=== PATIENT | male | born 1955 | race Caucasian/White ===

== ENCOUNTER 2022-12-12 18:21 | Inpatient (IN) | payer MEDICARE, SELFPAY ==
[2022-12-12] VITALS (8 sets, daily range): BP systolic 107–145; BP diastolic 74–91; PULSE 84–102; RESP 14–21; TEMP 36.6–37; O2SAT 94–100
--- NOTE | 2022-12-12 18:37 | CT_ITS ---
STUDY: CT BRAIN WITHOUT CONTRAST REASON FOR EXAM: Male, 67 years old. falls RADIATION DOSAGE (If Supplied By Facility): CTDIvol = ( 44.99 ) mGy, DLP = ( 846.73 ) mGycm TECHNIQUE: Transaxial CT imaging of the brain was performed without administration of intravenous contrast material. Individualized dose optimization techniques were used for this CT. COMPARISON: No relevant priors. FINDINGS: Normal soft tissue structures. Normal calvarium. Calcific plaquing of the cavernous carotids and left vertebral artery Mild atrophy and periventricular white matter ischemic changes. Normal basal ganglia and thalami. Normal brainstem. Normal cerebellum. There is no intracranial hemorrhage. There are no findings of an acute ischemic infarction. Mild mucosal thickening right maxillary sinus. Postsurgical changes of the orbits CT/Brain/Head without Contrast IMPRESSION: Mild atrophy and periventricular white matter ischemic changes. No evidence for acute intracranial hemorrhage Electronically Signed: Jakob Reno MD at 20:07 EDT ,
--- NOTE | 2022-12-12 18:37 | EKG12_ITS ---
Test Reason : DYSRHYTHMIA Blood Pressure : / mmHG Vent. Rate : 102 BPM Atrial Rate : 102 BPM P-R Int : 130 ms QRS Dur : 080 ms QT Int : 350 ms P-R-T Axes : 077 051 059 degrees QTc Int : 456 ms Sinus tachycardia Otherwise normal ECG Confirmed by LOVELY BERNAL, MARTITA ([id number]), supervising editor news reel BREANN CORNEJO ([id number]) on 12/14/2022 9:53:35 AM Referred By: SEVERO Confirmed By:MARTITA MURRY MD
--- NOTE | 2022-12-12 18:45 | EX.ED.DYSGE1 ---
HPI History of Present Illness Chief Complaint: Weakness Narrative Narrative: 43-year-old male presenting with weakness. Patient states has been drinking heavily at night for about 8 years. He states that he lost his and children at about that time. He states he is depressed and asked why he drinks. He states that last night he started drinking and is not sure how many he drank. He typically drinks 6-10 beers at night. Patient is unsure when he fell asleep but he woke up at 4 PM. He states he tried to get up and walk and felt generally weak. He is unable to describe exactly how he fell. He states he does not think he is lost consciousness but he cannot remember any details. He states he laid on the floor for about 5 minutes before he can get up. He states he was able to crawl over to the couch. EMS reports that he had some kind of seizure-like activity for a few seconds while they picked him up but he woke up without any postictal state. [facility] Medical History Anxiety and depression Chewing tobacco use ETOH abuse History of cancer tonsil Home Medications NK 12/12/22 [History Last Taken Unknown] Allergy/AdvReac Type Severity Reaction Status Date / Time No Known Allergies Allergy Verified 12/12/22 18:23 Family History Mother Diabetes Father Diabetes Brother Colon cancer Surgical History History of tonsillectomy and adenoidectomy Surgical History no surgical history Social History household members: other details: Lives with his son. Smoking Status: Never smoker Smokeless tobacco user: chewing tobacco and other alcohol intake: current alcohol intake frequency: 3 or more drinks per day details: 8-10 beers daily coupled with hard liquor. substance use type: does not use ROS ROS ED Constitutional Constitutional ED: Denies chills or fever(s) Eyes Eyes: Denies blurry vision or change in vision ENT ENT ED: Denies rhinorrhea or sore throat Cardiovascular Cardiovascular: Denies chest pain Respiratory/Chest Respiratory/Chest: Denies cough or dyspnea Gastrointestinal Gastrointestinal: Reports melena; Denies abdominal pain, nausea or vomiting Genitourinary Genitourinary ED: Denies dysuria or hematuria Musculoskeletal Musculoskeletal: Denies arthralgias or back pain Integumentary Denies abscess Neurologic Neurologic: Denies headache(s) Psychiatric Psychiatric: Denies anxiety or depression EXAM Physical Exam Const Vital Signs: 12/12/22 18:23 12/12/22 18:31 12/12/22 20:46 Temperature 98 F Temperature Source Temporal Pulse Rate 100 102 H Respiratory Rate 14 18 Respiratory Pattern Normal Blood Pressure 107/83 H 145/78 H Blood Pressure Mean 91 100 Blood Pressure Source Blood Pressure Position Blood Pressure Location Pulse Ox 100 97 Oxygen Delivery Method Room Air Room Air 12/12/22 21:48 12/12/22 21:15 12/12/22 22:03 Temperature 98.2 F 98 F Temperature Source Temporal Temporal Pulse Rate 102 H 93 99 Respiratory Rate 15 21 H 19 H Respiratory Pattern Blood Pressure 128/74 H 128/74 H 142/80 H Blood Pressure Mean 92 92 100 Blood Pressure Source Monitor Monitor Blood Pressure Position Semi-Fowlers Semi-Fowlers Blood Pressure Location Right Arm Right Arm Pulse Ox 97 95 94 Oxygen Delivery Method Room Air Room Air Room Air Positive unkempt General Appearance ED: unkempt; Negative for pallor HEENT Reports moist mucous membranes Eyes General Eye ED: Yes pale conjunctiva; Negative for scleral icterus Neck no lymphadenopathy Chest Wall inspection of chest normal and palpation of chest normal Resp normal respiratory effort and clear to auscultation bilaterally Auscultation: Negative for rales, rhonchi or wheezes Cardio regular rate and regular rhythm GI normal to inspection, nondistended, normoactive bowel sounds Neuro oriented x3 and CN's II-XII intact bilaterally Sensorium / Orientation: alert Motor Exam: general weakness Psych Appearance: unkempt Skin General Skin Exam: Negative for jaundice or pallor MDM MDM MDM Narrative Medical decision making narrative: Showed a weakness where he fell to the ground really describe this. Unclear if he hit his head. Sound like syncope. Patient does not have any signs of head trauma. He is moving all 4 extremities. He is alert and awake. He states that he does drink 6-10 beers daily. He states he drinks out of depression because his left him 8 years ago. He denies SI or HI. Patient does have black stools. He also has conjunctival pallor. I suspect the patient was likely syncopal or near syncopal. CV assess for blood cell count, hemoglobin, platelets, did CMP to assess liver function, renal function, glucose, anion gap, electrolytes. High-sensitivity troponin, EKG to assess for cardiac etiology. Chest x-ray will also be obtained. CT brain was obtained was obtained to assess for intracranial injury. CBC shows a white blood cell count of 6.7 which is normal. The patient's hemoglobin is 7.1. I was able to look on [facility] for previous records and the best I can find is a hemoglobin of 11 6 in 2019. Given this patient was typed, screened, crossmatched for 2 units. Patient started on Protonix drip after 80 mg bolus. Hemoccult was sent and is positive. Creatinine is normal with an elevated BUN suggesting GI bleed as well. Patient was given the IV fluids. Although there was some suspicion of possible seizure the patient was not postictal. He does have elevation in his lactic acid but I suspect this is likely due to dehydration. I do not believe he had a seizure. He is alert and awake here. Total bilirubin today is 0.20 direct bilirubin 0.8, AST 44. EtOH level is 22. Ammonia level is normal. Patient reported to the nursing staff that he felt like he was going to withdrawal so he was given 2 mg of Ativan. He was also given a nicotine patch. CT brain returned with no acute intracranial process. Chest x-ray on my interpretation shows no acute cardiopulmonary process. Radiologist services and agrees. High-sensitivity troponin 22. Case was discussed with Dr. Hennessy who is on-call for GI. After discussion we will obtain a CT of the chest abdomen pelvis. This returned negative. Discussed with hospitalist for admission. She requested 1 g of Rocephin given. At this point the patient is stable for the medical floor. Impression: 1. Acute blood loss anemia 2. Upper GI bleed 3. Near syncope 4. EtOH abuse 5. Weakness Lab Data Attestation: I reviewed the patient's lab results. Labs: Laboratory Results - last 24 hr 12/12/22 12/12/22 12/12/22 18:48 18:48 18:48 WBC 6.7 RBC 2.29 L Hgb 7.1 L Hct 22.2 L MCV 96.9 H MCH 31.0 MCHC 32.0 RDW Std Deviation 49.7 H RDW Coeff of Jesus 13.9 Plt Count 381 MPV 8.8 Immature Gran % (Auto) 1.200 H Neut % (Auto) 90.0 H Lymph % (Auto) 4.0 L Rains % (Auto) 4.5 Eos % (Auto) 0.0 Baso % (Auto) 0.3 Absolute Neuts (auto) 6.0 Absolute Lymphs (auto) 0.27 L Nucleated RBC % 0 Differential Comment SCANNED Sodium 132 L Potassium 4.2 Chloride 94 L Carbon Dioxide 25.0 Anion Gap 13 BUN 31 H Creatinine 1.18 Estim Creat Clear Calc 67.94 Est GFR (MDRD) Af Amer 79 Est GFR (MDRD) Non-Af 66 BUN/Creatinine Ratio 26.3 H Glucose 116 H Lactic Acid Calcium 8.3 L Phosphorus Magnesium Total Bilirubin 0.20 Direct Bilirubin 0.08 AST 44 H ALT 23 Alkaline Phosphatase 95 Ammonia Troponin I High Sens 22 Total Protein 5.5 L Albumin 2.1 L Globulin 3.4 Lipase 32 Ethyl Alcohol 22.0 Blood Type Antibody Screen Crossmatch 12/12/22 12/12/22 12/12/22 18:48 18:48 19:45 WBC RBC Hgb Hct MCV MCH MCHC RDW Std Deviation RDW Coeff of Jesus Plt Count MPV Immature Gran % (Auto) Neut % (Auto) Lymph % (Auto) Rains % (Auto) Eos % (Auto) Baso % (Auto) Absolute Neuts (auto) Absolute Lymphs (auto) Nucleated RBC % Differential Comment Sodium Potassium Chloride Carbon Dioxide Anion Gap BUN Creatinine Estim Creat Clear Calc Est GFR (MDRD) Af Amer Est GFR (MDRD) Non-Af BUN/Creatinine Ratio Glucose Lactic Acid 3.5 H* Calcium Phosphorus 2.8 Magnesium 1.7 Total Bilirubin Direct Bilirubin AST ALT Alkaline Phosphatase Ammonia Troponin I High Sens Total Protein Albumin Globulin Lipase Ethyl Alcohol Blood Type O POSITIVE Antibody Screen NEGATIVE Crossmatch See Detail 12/12/22 21:45 WBC RBC Hgb Hct MCV MCH MCHC RDW Std Deviation RDW Coeff of Jesus Plt Count MPV Immature Gran % (Auto) Neut % (Auto) Lymph % (Auto) Rains % (Auto) Eos % (Auto) Baso % (Auto) Absolute Neuts (auto) Absolute Lymphs (auto) Nucleated RBC % Differential Comment Sodium Potassium Chloride Carbon Dioxide Anion Gap BUN Creatinine Estim Creat Clear Calc Est GFR (MDRD) Af Amer Est GFR (MDRD) Non-Af BUN/Creatinine Ratio Glucose Lactic Acid Calcium Phosphorus Magnesium Total Bilirubin Direct Bilirubin AST ALT Alkaline Phosphatase Ammonia < 10.0 L Troponin I High Sens Total Protein Albumin Globulin Lipase Ethyl Alcohol Blood Type Antibody Screen Crossmatch Radiography Diagnostic Testing: Clinical Impression(s) from Imaging Studies Brain CT 12/12/22 18:37 IMPRESSION: Mild atrophy and periventricular white matter ischemic changes. No evidence for acute intracranial hemorrhage Electronically Signed: Jakob Reno MD at 20:07 EDT , Chest X-Ray 12/12/22 19:00 IMPRESSION: Small left lower lobe nodular opacity and small nodular opacity in the left apex.. CT recommended for further evaluation Electronically Signed: Jakob Reno MD at 19:12 EDT , Chest/Abdomen/Pelvis CT 12/12/22 21:00 IMPRESSION: ASHD and small pleural-based patchy opacity in the left pulmonary apex likely inflammatory however would recommend clinical correlation and follow-up studies if clinically warranted Mild nonspecific ileus. Minor diverticular changes of the sigmoid colon without evidence for acute diverticulitis No acute abnormalities within the abdomen and pelvis.] Other findings as above Electronically Signed: Jakob Reno MD at 21:45 EDT , Discharge Plan Triage Chief Complaint: Weakness ED Provider: Vinay Temple
[2022-12-12 18:59] LABS: Absolute Lymphocyte Count 0.27 X10^3/uL (0.83-4.51); Basophil# 0.02 X10^3/uL; Basophil% 0.3 % (0-1); Hematocrit 22.2 % (40-54); Hemoglobin 7.1 g/dL (13.0-16.5); Lymphocyte # 0.27 X10^3/ul (0.83-4.51); Mean Corpuscular Volume 96.9 fL (80-94); Mean Platelet Vol. 8.8 fl (6.2-12.0); Monocyte% 4.5 % (0-10); NRBC Flagged by Analyzer 0 % (0-5); Neutrophil # 6.01 X10^3/uL (2.7-7.7); POSITIVE DIFFERENTIAL YES; Platelet Count 381 K/mm3 (150-450); RBC Distribution Width CV 13.9 % (11.6-14.6); RBC Distribution Width SD 49.7 fl (35.1-43.9); Red Blood Count 2.29 M/mm3 (4.6-6.2); White Blood Count 6.7 K/mm3 (4.4-11.0)
--- NOTE | 2022-12-12 19:00 | RAD_ITS ---
STUDY: X-RAY CHEST REASON FOR EXAM: Male, 67 years old. weakness TECHNIQUE: AP portable COMPARISON: None. FINDINGS: Small nodule or nodular type infiltrate left lower lobe measuring approximately 2.4 x 2.1 cm. There is a smaller nodular opacity in the left apex. There is no demonstrated pleural abnormality. Normal size heart. Normal mediastinum and yan. Normal visualized pulmonary arteries. Normal visualized aortic arch and descending thoracic aorta. Normal visualized thoracic spine. Normal visualized ribs, clavicles, and shoulders. There is no demonstrated abnormality of the visualized soft tissue structures of the upper abdomen. RAD/Chest 1 View (Portable) IMPRESSION: Small left lower lobe nodular opacity and small nodular opacity in the left apex.. CT recommended for further evaluation Electronically Signed: Jakob Reno MD at 19:12 EDT ,
[2022-12-12 19:04] LABS: Differential Indicated SCAN CRITERIA MET
[2022-12-12 19:18] LABS: AST(SGOT) 44 U/L (15-37); Alanine Aminotransfer ALT/SGPT 23 U/L (16-61); Albumin, Serum 2.1 g/dL (3.2-5.0); Alkaline Phosphatase 95 U/L (45-117); Anion Gap 13 (5-15); BUN 31 mg/dL (7-18); BUN/Creat Ratio 26.3 RATIO (10-20); Bilirubin, Direct 0.08 mg/dL (0.00-0.30); Calcium,Total 8.3 mg/dL (8.5-10.1); Chloride 94 mmol/L (98-107); Creatinine, Serum 1.18 mg/dL (0.70-1.30); EST Glomerular Filtration Rate 66 mL/min (>60); Est Glom Filt Rate - Afr Amer 79 mL/min (>60); Estimated Creatinine Clearance 67.94 ml/min; Globulin 3.4 g/dL (2.2-4.2); Glucose 116 mg/dL (74-106); Lipase 32 U/L (13-75); Potassium 4.2 mmol/L (3.5-5.1); Protein, Total 5.5 g/dL (6.4-8.2); Sodium Level 132 mmol/L (136-145); Troponin-I HS 22 pg/mL (3.0-78.0)
[2022-12-12 19:34] LABS: Lactic Acid 3.5 mmol/L (0.4-1.9)
[2022-12-12 19:54] LABS: Differential Comment SCANNED
[2022-12-12] MEDS: LORazepam 2 MG/ML Syringe IV (19:56)
--- NOTE | 2022-12-12 21:00 | CT_ITS ---
STUDY: CT CHEST, ABDOMEN T PELVIS WITH CONTRAST REASON FOR EXAM: Male, 67 years old. ams RADIATION DOSAGE (If Supplied By Facility): CTDIvol = ( 12.85 ) mGy, DLP = ( 1092.30 ) mGycm TECHNIQUE: Transaxial imaging was performed following intravenous administration of IV 100mL [id number]-[id number]. Individualized dose optimization techniques were used for this CT. COMPARISON: No relevant priors. FINDINGS: CHEST Patchy pleural-based airspace opacity in left apex of indeterminate etiology possibly due to inflammatory changes.. There is no demonstrated pleural abnormality. Normal heart and pericardium. Mild coronary artery calcification Normal mediastinum. Normal hilar regions. Normal unenhanced pulmonary arteries. Minor atherosclerotic change of the aorta without evidence for aneurysm. Lumbar spine demonstrates moderate spondylosis. Small hiatal hernia is noted Nonspecific fatty infiltrated liver.. ABDOMEN . Nonspecific fatty liver without mass or bile duct dilatation. Normal gallbladder and extrahepatic biliary system. Normal spleen. Normal pancreas. Normal bilateral adrenal glands. No evidence for renal obstruction. There is a tiny cortical cyst in the right kidney which will not require additional imaging Normal visualized stomach. Mild nonspecific ileus.. Minor diverticular changes of the sigmoid colon without evidence for acute diverticulitis. The appendix is visualized and appears normal. Mild atherosclerotic change of the aorta without evidence for aneurysm.. Normal inferior vena cava. Normal retroperitoneum. Normal abdominal wall. PELVIS Incompletely distended thick walled bladder likely of no significance There is no pelvic fluid. There is no pelvic lymphadenopathy or mass lesion. Normal visualized pelvic arteries. Normal abdominal wall. Normal osseous structures. CT/CT Chest, Abd, Pel w/Contrast IMPRESSION: ASHD and small pleural-based patchy opacity in the left pulmonary apex likely inflammatory however would recommend clinical correlation and follow-up studies if clinically warranted Mild nonspecific ileus. Minor diverticular changes of the sigmoid colon without evidence for acute diverticulitis No acute abnormalities within the abdomen and pelvis.] Other findings as above Electronically Signed: Jakob Reno MD at 21:45 EDT ,
[2022-12-12] MEDS: 0.9% Normal Saline 1,000 ML 999 ML IV (21:10)
--- NOTE | 2022-12-12 21:23 | ED.RN ---
family made aware of admission at this time
[2022-12-12 22:15] LABS: Ammonia < 10.0 umol/L (11-32)
[2022-12-12 22:25] LABS: Magnesium 1.7 mg/dL (1.6-2.6); Phosphorus 2.8 mg/dL (2.5-4.9)
--- NOTE | 2022-12-12 22:49 | ED.RN ---
PT UNABLE TO STAND SAFELY, ORTHOS'S NOT COMPLETED
[2022-12-12 22:54] LABS: Reflex Lactate? Y
--- NOTE | 2022-12-12 23:00 | CON.PCM.GI_ITS ---
HPI Consult Data Date of Consult: 12/12/22 HPI Narrative Reason for Consultation: Anemia and GI bleed HPI Narrative: MIRNA JEFFRIES, is a 67 M who presents? with the chief complaint of weakness.? Patient states has been drinking heavily at night for about 8 years.? He states that he lost his and children at about that time.? He states he is depressed and asked why he drinks.? He states that last night he started drinking and is not sure how many he drank.? He typically drinks 6-10 beers at night.?History tonsillary CA s/p resection/chemotherapy in remission. Patient is unsure when he fell asleep but he woke up at 4 PM.? He states he tried to get up and walk and felt generally weak.? He is unable to describe exactly how he fell.? He states he does not think he is lost consciousness but he cannot remember any details.? He states he laid on the floor for about 5 minutes before he can get up.? He states he was able to crawl over to the couch.? EMS reports that he had some kind of seizure-like activity for a few seconds while they picked him up but he woke up without any postictal state. In the ED patient with mild tremors, tactile disturbances and initially confused with family reporting that normally he would have drank and much more but had not had any intake given acute presentation earlier in the day. ? Work-up in the ED included T98.2, heart rate 102, BP 120/74, respiratory rate 15, 97% oxygenation on room air, CBC with WC 6.7, hemoglobin 7.1, MCV is 96.9, platelet 381 with increased immature granulocytes and lymphopenia, CMP with sodium 132, chloride 94, BUN/creatinine 31/1.18, glucose 116, lactic acid 3.5, hepatic profile not marked appearing aside AST 44, troponin 22, lipase 32, ethyl alcohol 22, type and cross initiated per ED physician, stool occult positive, CT of the brain with mild atrophy and periventricular white matter ischemic changes with no acute intracranial findings, chest x-ray with small left lower lobe nodular opacity and small nodular opacity in the left apex, follow-up CT chest, abdomen, pelvis with contrast with noted ASHD and small pleural-based patchy opacity in the left pulmonary apex likely inflammatory, mild nonspecific ileus, minor diverticular changes of the sigmoid colon without evidence of any acute diverticulitis with no other acute intra-abdominal findings, pending NH level upon requested evaluation of patient.? In the ED patient ministered normal saline bolus, Protonix drip as well as bolus, Ativan 2 mg IV x1 and nicotine 21 mg patch. [facility] Medical History Anxiety and depression Chewing tobacco use ETOH abuse History of cancer tonsil Home Medications NK 12/12/22 [History Last Taken Unknown] Allergy/AdvReac Type Severity Reaction Status Date / Time No Known Allergies Allergy Verified 12/12/22 18:23 Family History Mother Diabetes Father Diabetes Brother Colon cancer Surgical History History of tonsillectomy and adenoidectomy Surgical History no surgical history Social History household members: other details: Lives with his son. Smoking Status: Former smoker Smokeless tobacco user: chewing tobacco and other alcohol intake: current alcohol intake frequency: 3 or more drinks per day details: 8-10 beers daily coupled with hard liquor. substance use type: does not use ROS ROS Narrative Admission Review of Systems: CONSTITUTIONAL: No weight loss, fever, chills, + weakness or fatigue. HEENT: Eyes: No visual loss, blurred vision, double vision or yellow sclerae. Ears, Nose, Throat: No hearing loss, sneezing, congestion, runny nose or sore throat. SKIN: No rash or itching, lesions, wounds. CARDIOVASCULAR: + Suspected LH/Dizziness w/ syncope from discussions secondary to GI bleed. No chest pain, chest pressure or chest discomfort, palpitations, edema, orthopnea. RESPIRATORY: No shortness of breath, cough or sputum, wheezing, hemoptysis. GASTROINTESTINAL: + anorexia, nausea, vomiting, black stools. No reported altered stool texture (constipation, diarrhea but poor historian), abdominal pain, BRBPR. GENITOURINARY: No dysuria, frequency, urgency or retention. NEUROLOGICAL: + Possible syncope, LH/dizziness but again poor historian, tremors, tactile disturbances, mild initial confusion/agitation improved with recent Ativan in the ED. No headache, paralysis, ataxia, numbness or tingling in the extremities, focal weakness, change in bowel or bladder control, seizure. MUSCULOSKELETAL: + muscle, back pain, joint pain or stiffness. HEMATOLOGIC: + anemia, bleeding or bruising. LYMPHATICS: No enlarged nodes. No history of splenectomy. PSYCHIATRIC: + history of depression or anxiety. ENDOCRINOLOGIC: No reports of sweating, cold or heat intolerance. No polyuria or polydipsia. ALLERGIES: No history of asthma, hives, eczema or rhinitis. Physical Exam Const alert and no apparent distress Resp normal respiratory effort, no retractions, no use of accessory muscles and clear to auscultation bilaterally Cardio regular rate, regular rhythm, S1 normal heart sound and S2 normal heart sound GI normal to inspection, nondistended, normoactive bowel sounds, soft to palpation, non-tender and non-distended Extremity normal to inspection Lab / Micro Data Result Diagrams: 12/13/22 03:58 12/13/22 03:58 Labs: Laboratory Results - last 24 hr 12/12/22 18:48: WBC 6.7, RBC 2.29 L, Hgb 7.1 L, Hct 22.2 L, MCV 96.9 H, MCH 31.0, MCHC 32.0, RDW Std Deviation 49.7 H, RDW Coeff of Jesus 13.9, Plt Count 381, MPV 8.8, Immature Gran % (Auto) 1.200 H, Neut % (Auto) 90.0 H, Lymph % (Auto) 4.0 L, Emanuel % (Auto) 4.5, Eos % (Auto) 0.0, Baso % (Auto) 0.3, Absolute Neuts (auto) 6.0, Absolute Lymphs (auto) 0.27 L, Nucleated RBC % 0, Differential Comment SCANNED 12/12/22 18:48: Sodium 132 L, Potassium 4.2, Chloride 94 L, Carbon Dioxide 25.0, Anion Gap 13, BUN 31 H, Creatinine 1.18, Estim Creat Clear Calc 67.94, Est GFR (MDRD) Af Amer 79, Est GFR (MDRD) Non-Af 66, BUN/Creatinine Ratio 26.3 H, Glucose 116 H, Calcium 8.3 L, Total Bilirubin 0.20, Direct Bilirubin 0.08, AST 44 H, ALT 23, Alkaline Phosphatase 95, Troponin I High Sens 22, Total Protein 5.5 L, Albumin 2.1 L, Globulin 3.4, Lipase 32 12/12/22 18:48: Ethyl Alcohol 22.0 12/12/22 18:48: Lactic Acid 3.5 H* 12/12/22 18:48: Phosphorus 2.8, Magnesium 1.7 12/12/22 19:45: Blood Type O POSITIVE, Antibody Screen NEGATIVE, Crossmatch See Detail 12/12/22 21:45: Ammonia < 10.0 L 12/12/22 23:17: Lactic Acid 1.5 12/12/22 23:45: Urine Color Yellow, Urine Clarity Clear, Urine pH 7.0, Ur Specific [place] 1.005, Urine Protein 15 H, Urine Glucose (UA) Normal, Urine Ketones 5 H, Urine Occult Blood Negative, Urine Nitrite Negative, Urine Bilirubin Negative, Urine Urobilinogen 1 H, Ur Leukocyte Esterase Negative, Urine RBC 0 SEEN, Urine WBC 0 SEEN, Ur Squamous Epith Cells 0 SEEN, Urine Bacteria RARE, Urine Mucus 0 SEEN 12/12/22 23:45: Urine Opiates Screen NEGATIVE, Urine Methadone Screen NEGATIVE, Ur Barbiturates Screen NEGATIVE, Ur Phencyclidine Scrn NEGATIVE, Ur Amphetamines Screen NEGATIVE, MDMA (Ecstasy) Screen NEGATIVE, U Benzodiazepines Scrn NEGATIVE, Urine Cocaine Screen NEGATIVE, U Cannabinoids Screen NEGATIVE, Ur Drug Screen Comment 12/13/22 03:58: WBC 6.4, RBC 2.56 L, Hgb 7.9 L, Hct 23.9 L, MCV 93.4, MCH 30.9, MCHC 33.1, RDW Std Deviation 50.7 H, RDW Coeff of Jesus 15.0 H, Plt Count 266, MPV 9.1, Immature Gran % (Auto) 2.000 H, Neut % (Auto) 83.0 H, Lymph % (Auto) 7.6 L, Emanuel % (Auto) 7.2, Eos % (Auto) 0.0, Baso % (Auto) 0.2, Absolute Neuts (auto) 5.3, Absolute Lymphs (auto) 0.48 L, Nucleated RBC % 0, Anisocytosis 1+ 12/13/22 03:58: Sodium 134 L, Potassium 4.7, Chloride 100, Carbon Dioxide 25.0, Anion Gap 9, BUN 36 H, Creatinine 1.05, Estim Creat Clear Calc 71.46, Est GFR (MDRD) Af Amer 91, Est GFR (MDRD) Non-Af 75, BUN/Creatinine Ratio 34.3 H, Glucose 138 H, Calcium 7.6 L, Total Bilirubin 0.60, AST 33, ALT 18, Alkaline Phosphatase 80, Total Protein 4.8 L, Albumin 2.0 L, Globulin 2.8, Albumin/Globulin Ratio 0.7 L Micro: Microbiology 12/12/22 22:14 Mucosa - Nasopharyngeal Respiratory Panel (PCR) - Final 12/12/22 20:35 Stool Stool Occult Blood ([facility]) - Final Occult Blood Positive Radiology Impression Brain CT 12/12/22 18:37 IMPRESSION: Mild atrophy and periventricular white matter ischemic changes. No evidence for acute intracranial hemorrhage Electronically Signed: Jakob Reno MD at 20:07 EDT , Chest X-Ray 12/12/22 19:00 IMPRESSION: Small left lower lobe nodular opacity and small nodular opacity in the left apex.. CT recommended for further evaluation Electronically Signed: Jakob Reno MD at 19:12 EDT , Chest/Abdomen/Pelvis CT 12/12/22 21:00 IMPRESSION: ASHD and small pleural-based patchy opacity in the left pulmonary apex likely inflammatory however would recommend clinical correlation and follow-up studies if clinically warranted Mild nonspecific ileus. Minor diverticular changes of the sigmoid colon without evidence for acute diverticulitis No acute abnormalities within the abdomen and pelvis.] Other findings as above Electronically Signed: Jakob Reno MD at 21:45 EDT , Assessment & Plan Assessment/Plan (1) GI bleed: (2) Acute blood loss anemia: (3) Lactic acidosis: (4) Alcohol withdrawal: (5) Hyponatremia: (6) Mass of left lung: PLAN: Plan The patient is a 67 y/o with PMH EtOH abuse , History tonsillary CA s/p resection/chemotherapy in remission who presents to the [facility] ED on 12/12/22 with history of eventually passing out awakening at approximately 4 PM of day of ED presentation however when he attempted to get up he felt extremely weak re portedly laying on the floor prior to even being overly get up eventually crawling over the couch prompting EMS call who reported that they were concerned for some type of possible spasms of his extremities that lasted a few seconds however this completely subsided when they picked him up and he immediately awoke with any postictal phase or state with no loss of bowel or bladder prompting ED transition for evaluation. Anemia: Agree it is likely acute on chronic anemia in the setting of likely GI the with a different gnosis pain peptic ulcer disease, cirrhosis with esophageal, gastric or duodenal varices, portal gastropathy, gastric antral vascular ectasia, Nate's erosions. He should undergo an upper endoscopy to evaluate his upper GI tract. Agree with octreotide, PPI drip and ceftriaxone. He was explained alternatives, risk, benefits including outstanding bleeding, infection, sepsis, perforation, need for emergent urgent . He will have an ASA of 3. Charges/Coding Visit Charges Inpatient E&M: 78346 Init Hosp L3
--- NOTE | 2022-12-12 23:02 | HP.PCM.HOS_ITS ---
HPI - General General Date of Admission: 12/12/22 Date of Service: 12/12/22 Chief Complaint: Black stools, weakness. HPI Narrative The patient is a 67 y/o F w/ PMHx: EtOH abuse (6-10 beers nightly, intermittent hard liquor usage), Heavy Chew tobacco replacement use (prior chew tobacco use), Anxiety and Depression, History tonsillary CA s/p resection/chemotherapy in remission who presents to the [facility] ED on 12/12/22 with history of eventually passing out awakening at approximately 4 PM of day of ED presentation however when he attempted to get up he felt extremely weak reportedly laying on the floor prior to even being overly get up eventually crawling over the couch prompting EMS call who reported that they were concerned for some type of possible spasms of his extremities that lasted a few seconds however this completely subsided when they picked him up and he immediately awoke with any postictal phase or state with no loss of bowel or bladder prompting ED transition for evaluation. He may have potential had a syncopal event when he tried to stand initially but unclear. He reports ongoing black appearing stools, poor oral food intake, nausea and emesis the day prior with emesis of unclear color with no marked abdominal pain or cramping and unclear stool consistency. In the ED patient with mild tremors, tactile disturbances and initially confused with family reporting that normally he would have drank and much more but had not had any intake given acute presentation earlier in the day. Work-up in the ED included T98.2, heart rate 102, BP 120/74, respiratory rate 15, 97% oxygenation on room air, CBC with WC 6.7, hemoglobin 7.1, MCV is 96.9, platelet 381 with increased immature granulocytes and lymphopenia, CMP with sodium 132, chloride 94, BUN/creatinine 31/1.18, glucose 116, lactic acid 3.5, hepatic profile not marked appearing aside AST 44, troponin 22, lipase 32, ethyl alcohol 22, type and cross initiated per ED physician, stool occult positive, CT of the brain with mild atrophy and periventricular white matter ischemic changes with no acute intracranial findings, chest x-ray with small left lower lobe nodular opacity and small nodular opacity in the left apex, follow-up CT chest, abdomen, pelvis with contrast with noted ASHD and small pleural-based patchy opacity in the left pulmonary apex likely inflammatory, mild nonspecific ileus, minor diverticular changes of the sigmoid colon without evidence of any acute diverticulitis with no other acute intra-abdominal findings, pending NH level upon requested evaluation of patient. In the ED patient ministered normal saline bolus, Protonix drip as well as bolus, Ativan 2 mg IV x1 and nicotine 21 mg patch. [facility] Medical History (Updated 12/12/22 @ 22:[address] Natty Guerrero MD) Anxiety and depression Chewing tobacco use ETOH abuse History of cancer tonsil Home Medications NK 12/12/22 [History Last Taken Unknown] Allergy/AdvReac Type Severity Reaction Status Date / Time No Known Allergies Allergy Verified 12/12/22 18:23 Family History (Updated 12/12/22 @ 22:[address] Natty Guerrero MD) Mother Diabetes Father Diabetes Brother Colon cancer Surgical History History of tonsillectomy and adenoidectomy Surgical History no surgical history Social History (Updated 12/12/22 @ 22:[address] Natty Guerrero MD) household members: other details: Lives with his son. Smoking Status: Never smoker Smokeless tobacco user: chewing tobacco and other alcohol intake: current alcohol intake frequency: 3 or more drinks per day details: 8-10 beers daily coupled with hard liquor. substance use type: does not use ROS ROS Narrative Admission Review of Systems: CONSTITUTIONAL: No weight loss, fever, chills, + weakness or fatigue. HEENT: Eyes: No visual loss, blurred vision, double vision or yellow sclerae. Ears, Nose, Throat: No hearing loss, sneezing, congestion, runny nose or sore throat. SKIN: No rash or itching, lesions, wounds. CARDIOVASCULAR: + Suspected LH/Dizziness w/ syncope from discussions secondary to GI bleed. No chest pain, chest pressure or chest discomfort, palpitations, edema, orthopnea. RESPIRATORY: No shortness of breath, cough or sputum, wheezing, hemoptysis. GASTROINTESTINAL: + anorexia, nausea, vomiting, black stools. No reported altered stool texture (constipation, diarrhea but poor historian), abdominal pain, BRBPR. GENITOURINARY: No dysuria, frequency, urgency or retention. NEUROLOGICAL: + Possible syncope, LH/dizziness but again poor historian, tremors, tactile disturbances, mild initial confusion/agitation improved with recent Ativan in the ED. No headache, paralysis, ataxia, numbness or tingling in the extremities, focal weakness, change in bowel or bladder control, seizure. MUSCULOSKELETAL: + muscle, back pain, joint pain or stiffness. HEMATOLOGIC: + anemia, bleeding or bruising. LYMPHATICS: No enlarged nodes. No history of splenectomy. PSYCHIATRIC: + history of depression or anxiety. ENDOCRINOLOGIC: No reports of sweating, cold or heat intolerance. No polyuria or polydipsia. ALLERGIES: No history of asthma, hives, eczema or rhinitis. Vital Signs Vital Signs Vital Signs: 12/12/22 18:23 12/12/22 18:31 12/12/22 20:46 Temperature 98 F Temperature Source Temporal Pulse Rate 100 102 H Respiratory Rate 14 18 Respiratory Pattern Normal Blood Pressure 107/83 H 145/78 H Blood Pressure Mean 91 100 Blood Pressure Source Blood Pressure Position Blood Pressure Location Pulse Ox 100 97 Oxygen Delivery Method Room Air Room Air 12/12/22 21:48 12/12/22 21:15 Temperature 98.2 F Temperature Source Temporal Pulse Rate 102 H 93 Respiratory Rate 15 21 H Respiratory Pattern Blood Pressure 128/74 H 128/74 H Blood Pressure Mean 92 92 Blood Pressure Source Monitor Blood Pressure Position Semi-Fowlers Blood Pressure Location Right Arm Pulse Ox 97 95 Oxygen Delivery Method Room Air Room Air Weight Weight: 171 lb 15.369 oz Body Mass Index (BMI) 0.1 Physical Exam Narrative Physical Examination: General: Awake, alert, oriented to self, place but still mildly confused although family notes he is much better than initial ED arrival given alcohol withdrawal, they report also that he has always had some issues with confusion which became more pronounced several years prior but unclear if he has underlying dementia or if this is secondary to also his depression and alcohol abuse they note. Skin: Normal color, normal turgor, no icterus, no cyanosis except occasional staged ecchymoses. HEENT: AT/NC, EOMI, PERRLA, dry MM, no carotid bruits or JVD noted. Lungs: Mildly diminished, greater bases, proper effort, no rales, ronchi or wheezing. Heart: Mildly tachycardic with regular rhythm; no gallop, rub audible. Abdomen: Soft, NTTP, no marked distention, hyperactive bowel sounds, + HM. Extremities: No cyanosis, clubbing, or edema. Neurological: Patient awake, alert, oriented as noted, likely does have some underlying cognitive decline possibly from alcohol abuse and depression, currently improving but still not baseline cognitive intact; pupils equally reactive to light and accommodation, cranial nerves grossly normal, moving all 4 extremities, no focal deficits, strength moderately to severely global decrease secondary to acute presentation Psychiatric: Affect appears fatigued, emotional, does admit to severe underlying depression and anxiety which is why he drinks heavily, denies SI. Results Lab / Micro Data Result Diagrams: 12/12/22 18:48 12/12/22 18:48 Labs: Laboratory Results - last 24 hr 12/12/22 18:48: WBC 6.7, RBC 2.29 L, Hgb 7.1 L, Hct 22.2 L, MCV 96.9 H, MCH 31.0, MCHC 32.0, RDW Std Deviation 49.7 H, RDW Coeff of Jesus 13.9, Plt Count 381, MPV 8.8, Immature Gran % (Auto) 1.200 H, Neut % (Auto) 90.0 H, Lymph % (Auto) 4.0 L, Rolette % (Auto) 4.5, Eos % (Auto) 0.0, Baso % (Auto) 0.3, Absolute Neuts (auto) 6.0, Absolute Lymphs (auto) 0.27 L, Nucleated RBC % 0, Differential Comment SCANNED 12/12/22 18:48: Sodium 132 L, Potassium 4.2, Chloride 94 L, Carbon Dioxide 25.0, Anion Gap 13, BUN 31 H, Creatinine 1.18, Estim Creat Clear Calc 67.94, Est GFR (MDRD) Af Amer 79, Est GFR (MDRD) Non-Af 66, BUN/Creatinine Ratio 26.3 H, Glucose 116 H, Calcium 8.3 L, Total Bilirubin 0.20, Direct Bilirubin 0.08, AST 44 H, ALT 23, Alkaline Phosphatase 95, Troponin I High Sens 22, Total Protein 5.5 L, Albumin 2.1 L, Globulin 3.4, Lipase 32 12/12/22 18:48: Ethyl Alcohol 22.0 12/12/22 18:48: Lactic Acid 3.5 H* 12/12/22 19:45: Blood Type O POSITIVE, Antibody Screen NEGATIVE, Crossmatch See Detail Micro: Microbiology 12/12/22 20:35 Stool Stool Occult Blood ([facility]KATA) - Final Occult Blood Positive Radiology Impression Brain CT 12/12/22 18:37 IMPRESSION: Mild atrophy and periventricular white matter ischemic changes. No evidence for acute intracranial hemorrhage Electronically Signed: Jakob Reno MD at 20:07 EDT , Chest X-Ray 12/12/22 19:00 IMPRESSION: Small left lower lobe nodular opacity and small nodular opacity in the left apex.. CT recommended for further evaluation Electronically Signed: Jakob Reno MD at 19:12 EDT , Chest/Abdomen/Pelvis CT 12/12/22 21:00 IMPRESSION: ASHD and small pleural-based patchy opacity in the left pulmonary apex likely inflammatory however would recommend clinical correlation and follow-up studies if clinically warranted Mild nonspecific ileus. Minor diverticular changes of the sigmoid colon without evidence for acute diverticulitis No acute abnormalities within the abdomen and pelvis.] Other findings as above Electronically Signed: Jakob Reno MD at 21:45 EDT , Assessment & Plan Assessment/Plan (1) GI bleed: PLAN: Plan The patient is a 67 y/o F w/ PMHx: EtOH abuse (6-10 beers nightly, intermittent hard liquor usage), Heavy Chew tobacco replacement use (prior chew tobacco use), Anxiety and Depression, History tonsillary CA s/p resection/chemotherapy in remission who presents to the [facility] ED on 12/12/22 with history of eventually passing out awakening at approximately 4 PM of day of ED presentation however when he attempted to get up he felt extremely weak reportedly laying on the floor prior to even being overly get up eventually crawling over the couch prompting EMS call who reported that they were concerned for some type of possible spasms of his extremities that lasted a few seconds however this completely subsided when they picked him up and he immediately awoke with any postictal phase or state with no loss of bowel or bladder prompting ED transition for evaluation. #1. Acute GI Bleed w/ resultant Acute Blood Loss Anemia complicated by underlying alcohol abuse with possibly Syncopal event associated with his GI bleed presentation/acute blood loss: Suspect likely acute on chronic anemia, will admit to medical surgical floor on telemetry to be cautious given mild tachycardia although vital signs otherwise stable, will continue to obtain serial H&H's, will continue T and C with 2 u PRBC administration per ED physician initiation, will maintain on IV Protonix drip, initiate octreotide given alcohol abuse history and continue IV Rocephin therapy, gastroenterology consulted and aware, pending evaluation, continue IV fluid judicious hydration with n.p.o. status. 2019 [employer] 11.4 per [facility] records. #2. Lactic acidosis: Admission lactic acid 3.5, do suspect some component of hypovolemia, also acute GI bleed presentation concurrently, will maintain on IV fluids and trend lactic acid per facility protocol. #3. Impending Acute EtOH Withdrawal: Patient with heavy alcohol abuse likely re lated to underlying untreated anxiety and depression, will cautiously initiate on phenobarbital taper, as needed gabapentin, Catapres, Bentyl, Vistaril, IV fluids, IV antiemetics, Tylenol as needed for pain. Will defer any NSAID therapy given acute presentation number 1. Will consult Case management for assistance for transition to next level of rehabilitation care. Mag, phos pending. Maintain on CIWA protocol concurrently. #4. Hyponatremia, suspected chronic component, concurrent hypovolemic component as well: Patient with admission sodium 132, chloride 94, suspected also hypovolemic component given presentation however patient does have chronic high beer consumption therefore certainly could be beer potomania contribution, will continue to hydrate as noted, repeat CMP in AM. #5. Incidental small pleural-based patchy opacity left pulmonary apex: Possibly inflammatory, certainly could have had some aspiration given alcohol abuse history and potentially passed out but unclear, respiratory viral panel requested, will continue to monitor, trend CBC, procalcitonin requested. #6. Anxiety and depression: Patient does admit to underlying anxiety and depression, not on any medication, case management consulted for substance abuse as this is likely contributing greatly to his continued alcohol abuse history. #7. Chew Tobacco Abuse: Encouraged cessation, inpatient consultation per RT, NR if desired. #8. History of tonsillar cancer: Patient notes ongoing evaluations q 3 months, reports being in remission, status postresection and prior chemotherapy. #9. DVT prophylaxis: SCDs given acute GI bleed presentation as noted. #10. CODE status: Patient HCPOA and living will or not in place. He is unsure if we want to make medical decisions for him but potentially his sons or his niece who is present and been prevalent in his care. Discussed CODE status at length including difference between FULL code, DNR-CCA and DNR-CC status. Following discussions about the differences in these status, requested Full Code status. Advanced Care Planning Face to Face Time: 16 minutes. Admission Evaluation Time spent evaluating chart, patient history, patient evaluation, care planning and discussion with specialists: 76 minutes. Charges/Coding Visit Charges Inpatient E&M: 15453 Init Hosp L3 Procedures Hospitalists Procedures: 75207 Advncd Care Plan 30 Min
[2022-12-12 23:47] LABS: Lactic Acid 1.5 mmol/L (0.4-1.9)
[2022-12-13] VITALS (18 sets, daily range): BP systolic 101–156; BP diastolic 55–95; PULSE 69–117; RESP 14–18; TEMP 36.2–37.2; O2SAT 97–100; BMI 23.7; BMI 24.6
[2022-12-13] LABS: Mucous, Urine 0 SEEN /hpf (<or=2+); Red Blood Cells-Urine 0 SEEN /hpf (0-5); Squamous Epithelial Cells - UA 0 SEEN /hpf (0-5); White Blood Cells 0 SEEN /hpf (0-5)
--- NOTE | 2022-12-13 | GASB_PTH ---
PATIENT: MIRNA JEFFRIES LOC: MS3 U#:[id number] AGE/SX: 67/M ROOM: [facility] [place] RE12/12/[address]: Dr. Natalie Dailey MD : [id number] BED: 1 DIS: 12/23/2022 SPEC #: [id number] RECD: 12/14/22 11:44 STATUS: BRIAN REQ #: [id number] TARAS: 12/13/22 00:[address]: Ender Hennessy DEPT: SURGICAL PATHOLOGY RECD BY: Bradley Charles ENTERED: 12/14/22 11:44 SP TYPE: Gastric Bx OTHR DR: MD Dr. Galen Womack, DO Tissues: A - Duodenum, NOS B - Gastric mucous membrane Procedures: Surgery Specimen Level IV Comments: @ Ordering doctor for SUIV edited from to @ by RGOOD at 12/18/22 0845 @ Submitting doctor edited from to @ by RGOOD at 12/18/22 0845 HEADER OPERATION: EGD ([facility] [place]) with biopsies PRE-OP DIAGNOSIS: GI bleed, acute blood loss anemia, lactic acidosis TISSUE SUBMITTED: A ? Duodenal ulcer biopsy, B ? Gastric body biopsies for H. pylori and path MICROSCOPIC DIAGNOSIS A. Duodenal ulcer, biopsy: Fragments of duodenal mucosa with acute and chronic inflammation, congestion and hemorrhage. B. Gastric body, biopsy: Moderate chronic active gastritis. See comment. SJ:pam 12/15/2022 COMMENT B. The results of immunohistochemistry for Helicobacter pylori will be reported separately ([id number]). MICROSCOPIC DESCRIPTION Slides are reviewed. GROSS DESCRIPTION A - Received in fixative is one container labeled with the patient's name and designated duodenal ulcer biopsy. The specimen consists of two irregular fragments of light jones soft tissue that in aggregate measure 0.8 x 0.3 x 0.1 cm. The specimen is totally submitted in one cassette. B - Received in fixative is one container labeled with the patient's name and designated gastric body biopsy. The specimen consists of two irregular fragments of light jones soft tissue that in aggregate measure 0.8 x 0.4 x 0.1 cm. The specimen is totally submitted in one cassette. / ROSHNI:pam 12/14/2022 TC:2 CPT: 96125 x2
[2022-12-13 00:41] LABS: Color, Urine Yellow (Yellow); Glucose, Dipstick Normal (Normal); Ketone-Dipstick 5 mg/dl (Negative); Leukocyte Esterase-Dipstick Negative /ul (Negative); Nitrite-Dipstick Negative (Negative); Occult Blood-Urine Negative /ul (Negative); Protein-Dipstick 15 mg/dl (Negative); Specific Gravity, Urine 1.005 (1.002-1.030); Urine Bilirubin Dipstick Negative (Negative); Urine Clarity Clear (Clear); Urine Urobilinogen 1 mg/dl (Normal)
[2022-12-13 00:49] LABS: Amphetamine Urine VISTA NEGATIVE (<1000 ng/mL); Barbiturate Urine VISTA NEGATIVE (< 200 ng/mL); Benzodiazepine Urine VISTA NEGATIVE (< 200 ng/mL); Cocaine Urine VISTA NEGATIVE (< 300 ng/mL); Ecstacy Urine VISTA NEGATIVE (< 500 ng/mL); Methadone Urine VISTA NEGATIVE (< 300 ng/mL); PCP Urine VISTA NEGATIVE (< 25 ng/mL); THC Urine VISTA NEGATIVE (< 50 ng/mL); Vista UDS pH Range 5
[2022-12-13] MEDS: Ceftriaxone 1 GM/50 ML BAG IV ×2 (00:54→20:31)
[2022-12-13] MEDS: 0.9% Normal Saline 1,000 ML 999 ML IV (00:54)
[2022-12-13 01:05] LABS: Bacteria RARE /hpf (None Seen)
[2022-12-13] MEDS: Phenobarbital 32.4 MG Tablet PO ×6 (01:34→20:45)
[2022-12-13] MEDS: 0.9% Normal Saline 1,000 ML 100 ML IV ×3 (02:10→20:32)
[2022-12-13 04:10] LABS: Absolute Lymphocyte Count 0.48 X10^3/uL (0.83-4.51); Absolute Neutrophil Count 5.3 X10^3/uL (2.0-7.7); Basophil# 0.01 X10^3/uL; Basophil% 0.2 % (0-1); Hematocrit 23.9 % (40-54); Hemoglobin 7.9 g/dL (13.0-16.5); Lymphocyte # 0.48 X10^3/ul (0.83-4.51); Lymphocyte % 7.6 % (19-41); Mean Corp Hgb Conc 33.1 g/dL (32-36); Mean Corpuscular Hgb 30.9 pg (27.0-32.0); Mean Corpuscular Volume 93.4 fL (80-94); Mean Platelet Vol. 9.1 fl (6.2-12.0); Monocyte# 0.46 X10^3/uL; Monocyte% 7.2 % (0-10); NRBC Flagged by Analyzer 0 % (0-5); Neutrophil # 5.27 X10^3/uL (2.7-7.7); POSITIVE DIFFERENTIAL YES; Platelet Count 266 K/mm3 (150-450); RBC Distribution Width SD 50.7 fl (35.1-43.9); Red Blood Count 2.56 M/mm3 (4.6-6.2); White Blood Count 6.4 K/mm3 (4.4-11.0)
[2022-12-13 04:11] LABS: Differential Indicated SCAN CRITERIA MET
[2022-12-13 04:33] LABS: ALB/GLOB Ratio 0.7 RATIO (0.9-2.4); AST(SGOT) 33 U/L (15-37); Alanine Aminotransfer ALT/SGPT 18 U/L (16-61); Alkaline Phosphatase 80 U/L (45-117); Anion Gap 9 (5-15); BUN 36 mg/dL (7-18); BUN/Creat Ratio 34.3 RATIO (10-20); Calcium,Total 7.6 mg/dL (8.5-10.1); Chloride 100 mmol/L (98-107); Creatinine, Serum 1.05 mg/dL (0.70-1.30); EST Glomerular Filtration Rate 75 mL/min (>60); Est Glom Filt Rate - Afr Amer 91 mL/min (>60); Estimated Creatinine Clearance 71.46 ml/min; Globulin 2.8 g/dL (2.2-4.2); Glucose 138 mg/dL (74-106); Potassium 4.7 mmol/L (3.5-5.1); Protein, Total 4.8 g/dL (6.4-8.2); Sodium Level 134 mmol/L (136-145)
[2022-12-13 06:19] LABS: Anisocytosis 1+
--- NOTE | 2022-12-13 08:35 | PN.HOSP_ITS ---
Reason for Visit Reason for Visit: Diagnoses Gastrointestinal hemorrhage, unspecified (12/12/22) Subjective Subjective Talks about a myriad of topics. many tangential. Talks about getting sober and he drinks at least a 12-pack of Molson Ice daily. Many times with bourbon on top of that. Wants more nicotine patch. Asks if he chew his nicotine patch. When i told him I strongly discouraged that, he asked if I would spank him. Asks if I have any issues about sex outside of wedding. I told him I have no concerns about him having sex with an adult as long as it is consensual, but since he expressed concerned about his samaritan, I encouraged him to speak with his counselor. Objective Data Objective Data Vital Signs: Vital Signs Temp Pulse Resp BP Pulse Ox O2 Del Method 36.3 C L 96 16 146/81 H 100 Room Air 12/13/22 08:33 12/13/22 08:33 12/13/22 08:33 12/13/22 08:33 12/13/22 08:33 12/13/22 08:33 Oxygen Delivery Method Room Air Weight: 78 kg Body Mass Index (BMI) 24.6 Intake & Output: Intake and Output for Last 24 Hours 12/11/22 12/12/22 12/13/22 23:59 23:59 23:59 Intake Total 1035 / 1035 800 / 800 Balance 1035 / 1035 800 / 800 Lab / Micro Data Result Diagrams: 12/13/22 03:58 12/13/22 03:58 Labs: Laboratory Results - last 24 hr 12/12/22 18:48: WBC 6.7, RBC 2.29 L, Hgb 7.1 L, Hct 22.2 L, MCV 96.9 H, MCH 31.0, MCHC 32.0, RDW Std Deviation 49.7 H, RDW Coeff of Jesus 13.9, Plt Count 381, MPV 8.8, Immature Gran % (Auto) 1.200 H, Neut % (Auto) 90.0 H, Lymph % (Auto) 4.0 L, Bates % (Auto) 4.5, Eos % (Auto) 0.0, Baso % (Auto) 0.3, Absolute Neuts (auto) 6.0, Absolute Lymphs (auto) 0.27 L, Nucleated RBC % 0, Differential Comment SCANNED 12/12/22 18:48: Sodium 132 L, Potassium 4.2, Chloride 94 L, Carbon Dioxide 25.0, Anion Gap 13, BUN 31 H, Creatinine 1.18, Estim Creat Clear Calc 67.94, Est GFR (MDRD) Af Amer 79, Est GFR (MDRD) Non-Af 66, BUN/Creatinine Ratio 26.3 H, Glucose 116 H, Calcium 8.3 L, Total Bilirubin 0.20, Direct Bilirubin 0.08, AST 44 H, ALT 23, Alkaline Phosphatase 95, Troponin I High Sens 22, Total Protein 5.5 L, Albumin 2.1 L, Globulin 3.4, Lipase 32 12/12/22 18:48: Ethyl Alcohol 22.0 12/12/22 18:48: Lactic Acid 3.5 H* 12/12/22 18:48: Phosphorus 2.8, Magnesium 1.7 12/12/22 19:45: Blood Type O POSITIVE, Antibody Screen NEGATIVE, Crossmatch See Detail 12/12/22 21:45: Ammonia < 10.0 L 12/12/22 23:17: Lactic Acid 1.5 12/12/22 23:45: Urine Color Yellow, Urine Clarity Clear, Urine pH 7.0, Ur Specific [place] 1.005, Urine Protein 15 H, Urine Glucose (UA) Normal, Urine Ketones 5 H, Urine Occult Blood Negative, Urine Nitrite Negative, Urine Bilirubin Negative, Urine Urobilinogen 1 H, Ur Leukocyte Esterase Negative, Urine RBC 0 SEEN, Urine WBC 0 SEEN, Ur Squamous Epith Cells 0 SEEN, Urine Bacter ia RARE, Urine Mucus 0 SEEN 12/12/22 23:45: Urine Opiates Screen NEGATIVE, Urine Methadone Screen NEGATIVE, Ur Barbiturates Screen NEGATIVE, Ur Phencyclidine Scrn NEGATIVE, Ur Amphetamines Screen NEGATIVE, MDMA (Ecstasy) Screen NEGATIVE, U Benzodiazepines Scrn NEGATIVE, Urine Cocaine Screen NEGATIVE, U Cannabinoids Screen NEGATIVE, Ur Drug Screen Comment 12/13/22 03:58: WBC 6.4, RBC 2.56 L, Hgb 7.9 L, Hct 23.9 L, MCV 93.4, MCH 30.9, MCHC 33.1, RDW Std Deviation 50.7 H, RDW Coeff of Jesus 15.0 H, Plt Count 266, MPV 9.1, Immature Gran % (Auto) 2.000 H, Neut % (Auto) 83.0 H, Lymph % (Auto) 7.6 L, Bates % (Auto) 7.2, Eos % (Auto) 0.0, Baso % (Auto) 0.2, Absolute Neuts (auto) 5.3, Absolute Lymphs (auto) 0.48 L, Nucleated RBC % 0, Anisocytosis 1+ 12/13/22 03:58: Sodium 134 L, Potassium 4.7, Chloride 100, Carbon Dioxide 25.0, Anion Gap 9, BUN 36 H, Creatinine 1.05, Estim Creat Clear Calc 71.46, Est GFR (MDRD) Af Amer 91, Est GFR (MDRD) Non-Af 75, BUN/Creatinine Ratio 34.3 H, Glucose 138 H, Calcium 7.6 L, Total Bilirubin 0.60, AST 33, ALT 18, Alkaline Phosphatase 80, Total Protein 4.8 L, Albumin 2.0 L, Globulin 2.8, Albumin/Globulin Ratio 0.7 L Micro: Microbiology 12/12/22 22:14 Mucosa - Nasopharyngeal Respiratory Panel (PCR) - Final 12/12/22 20:35 Stool Stool Occult Blood (VENKATA) - Final Occult Blood Positive Radiography Diagnostic Testing: Radiology Impression Brain CT 12/12/22 18:37 IMPRESSION: Mild atrophy and periventricular white matter ischemic changes. No evidence for acute intracranial hemorrhage Electronically Signed: Jakob Reno MD at 20:07 EDT , Chest X-Ray 12/12/22 19:00 IMPRESSION: Small left lower lobe nodular opacity and small nodular opacity in the left apex.. CT recommended for further evaluation Electronically Signed: Jakob Reno MD at 19:12 EDT , Chest/Abdomen/Pelvis CT 12/12/22 21:00 IMPRESSION: ASHD and small pleural-based patchy opacity in the left pulmonary apex likely inflammatory however would recommend clinical correlation and follow-up studies if clinically warranted Mild nonspecific ileus. Minor diverticular changes of the sigmoid colon without evidence for acute diverticulitis No acute abnormalities within the abdomen and pelvis.] Other findings as above Electronically Signed: Jakob Reno MD at 21:45 EDT Reading Location ID and State: [facility] / [place] , Service support , Physical Exam Const alert and no apparent distress Resp normal respiratory effort, no retractions, no use of accessory muscles and clear to auscultation bilaterally Cardio regular rate, regular rhythm, S1 normal heart sound and S2 normal heart sound GI normal to inspection, nondistended, normoactive bowel sounds, soft to palpation, non-tender and non-distended Extremity normal to inspection Assessment & Plan Assessment/Plan (1) GI bleed: PLAN: Acute GI Bleed w/ resultant Acute Blood Loss Anemia complicated by underlying alcohol abuse with possibly Syncopal event associated with his GI bleed presentation/acute blood loss: will admit to medical surgical floor on telemetry to be cautious given mild tachycardia although vital signs otherwise stable, will continue to obtain serial H&H's, will continue T and C with 2 u PRBC administration per ED physician initiation, will maintain on IV Protonix drip, initiate octreotide given alcohol abuse history and continue IV Rocephin therapy, gastroenterology consulted and aware, pending evaluation, continue IV fluid earline cious hydration with n.p.o. status. 2019 Summa 11.4 per [facility] records. (2) Acute blood loss anemia: PLAN: Suspect likely acute on chronic anemia monitor (3) Lactic acidosis: PLAN: Lactic acidosis: Admission lactic acid 3.5, do suspect some component of hypovolemia, also acute GI bleed presentation concurrently, will maintain on IV fluids and trend lactic acid per facility protocol. (4) Alcohol withdrawal: PLAN: Impending Acute EtOH Withdrawal: Patient with heavy alcohol abuse likely related to underlying untreated anxiety and depression, will cautiously initiate on phenobarbital taper, as needed gabapentin, Catapres, Bentyl, Vistaril, IV fluids, IV antiemetics, Tylenol as needed for pain. Will defer any NSAID therapy given acute presentation number 1. Will consult Case management for assistance for transition to next level of rehabilitation care. Mag, phos pending. Maintain on CIWA protocol concurrently. (5) Hyponatremia: PLAN: Hyponatremia, suspected chronic component, concurrent hypovolemic component as well: Patient with admission sodium 132, chloride 94, suspected also hypovolemic component given presentation however patient does have chronic high beer consumption therefore certainly could be beer potomania contribution, will continue to hydrate as noted, repeat CMP in AM. (6) Mass of left lung: PLAN: Incidental small pleural-based patchy opacity left pulmonary apex: Possibly inflammatory, certainly could have had some aspiration given alcohol abuse history and potentially passed out but unclear, respiratory viral panel requested, will continue to monitor, trend CBC, procalcitonin requested. PLAN: Plan The patient is a 67 y/o F w/ PMHx: EtOH abuse (6-10 beers nightly, intermittent hard liquor usage), Heavy Chew tobacco replacement use (prior chew tobacco use), Anxiety and Depression, History tonsillary CA s/p resection/chemotherapy in remission who presents to the [facility] ED on 12/12/22 with history of eventually passing out awakening at approximately 4 PM of day of ED presentation however when he attempted to get up he felt extremely weak reportedly laying on the floor prior to even being overly get up eventually crawling over the couch prompting EMS call who reported that they were concerned for some type of possible spasms of his extremities that lasted a few seconds however this completely subsided when they picked him up and he immediately awoke with any postictal phase or state with no loss of bowel or bladder prompting ED transition for evaluation. Chronic conditions: * Anxiety and depression: Patient does admit to underlying anxiety and depression, not on any medication, case management consulted for substance abuse as this is likely contributing greatly to his continued alcohol abuse history. * Chew Tobacco Abuse: Encouraged cessation, inpatient consultation per RT, NR if desired. 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 DVT prophylaxis: SCDs given acute GI bleed presentation as noted. CODE status: Full code. Pt with bizarre comments and questions. Unclear if he is trying to be witty and funny, or if he is just blatantly inappropriate. Than 50 minutes of which greater than 50% of time was counseling patient at bedside about his work-up for his anemia, possible GI bleed but also discussing alcohol withdrawal and long-term treatment options. Charges/Coding Visit Charges Inpatient E&M: 35872 Subs Hosp L3
[2022-12-13] MEDS: Thiamine Hydrochloride 100 MG Tablet PO (08:41)
[2022-12-13] MEDS: Folic Acid 1 MG Tablet PO (08:41)
--- NOTE | 2022-12-13 09:32 | CASEMGMT ---
SW will complete the Social Determinants of Health (SDOH) questionnaire with patient when patient is more alert. Patient is currently alert and oriented X1-2. Nika MUIR
--- NOTE | 2022-12-13 11:30 | CASEMGMT ---
RN CALVIN Face to Face with patient for initial transition planning/care coordination assessment. RN CM introduced self and role at [facility]. Patient lying in bed, alert and oriented. Patient willing to participate in assessment and is able to answer all questions appropriately. Care providers, pharmacy, and demographics verified. Patient wishes to discharge home, denies need for home health at this time. Patient states he has no further needs or concerns at this time. CM to follow for discharge planning needs that may arise. PCP: Holly Conklin Specialists: suraj Hernandez Preferred Pharmacy: [facility] Insurance: [facility] Prescription Benefit: yes Living Will/HPOA: none LNOK: brother Living Arrangements: Patient lives with brother in a 2 story home, patient has been staying on first floor. Patient is independent and able to ambulate stairs. Transportation: self, brother DME/HHC: Patient has cane, walker, grab bars at home. No previous HHC or SNF. Patient admits to drinking 6-8 beers daily. Patient uses nicotine pouches. Patient is interested in resources for alcohol cessation, SW notified. Disposition Plan: Patient to discharge home with family support and follow-up plans in place. Will monitor progress of care for discharge needs. Concepcion GODOY, RN, CM
--- NOTE | 2022-12-13 15:05 | CASEMGMT ---
Patient is interested in talking with someone about alcohol treatment resources. SHAYNA called Janak with [facility] and she will talk with patient. Nika Gonzalez [employer]
--- NOTE | 2022-12-13 16:30 | IMM_PTH ---
PATIENT: MIRNA JEFFRIES LOC: 3 U#:[id number] AGE/SX: 67/M ROOM: [facility] RE12/12/[address]: Dr. Natalie Dailey MD : 1955 BED: 1 DIS: 12/23/2022 SPEC #: [id number] RECD: 12/14/22 14:33 STATUS: BRIAN REQ #: [id number] TARAS: 12/13/22 16:[address]: Ender Hennessy DEPT: IMMUNOHISTOCHEMISTRY RECD BY: Chandrika Saleh ENTERED: 12/14/22 14:33 SP TYPE: IMMUNO OTHR DR: MD Dr. Galen Womack, DO Tissues: B - Stomach, NOS Procedures: H Pylori (initial) PHYSICIAN & INSTITUTION [place] [id number] SPECIMEN INFORMATION: Tissue Source: B ? Gastric body Clinical Info: GI bleed, acute blood loss anemia, lactic acidosis Specimen Number: [id number] CPT code: 39750 METHODOLOGY: Deparaffinized sections of prefer/formalin-fixed tissue or PAP/DQ stained slides are incubated with monoclonal/polyclonal antibodies/oligonucleotide probes. Localization is made via biotin free immunoperoxidase method. Appropriate controls are performed and reacted as expected. Results on target cell population are indicated in the following table: RESULTS: ANTIBODY / CLONE RESULT Block B H Pylori (polyclonal) negative These tests were developed and their performance characteristics determined by [facility]. They may not have been cleared or approved by the U.S. Food and Drug Administration. The FDA has determined that such clearance or approval is not necessary. The above immunohistochemical/dualISH markers are ordered and reviewed by the Pathologist. INTERPRETATION: B. Gastric body, biopsy: Negative for Helicobacter pylori organisms. SJ:pam 12/15/2022
--- NOTE | 2022-12-13 17:02 | OP.EGD_ITS ---
Patient Name: Messi Waldrop Procedure Date: 12/13/2022 4:40 PM Date of : 1955 Age: 67 Procedure: Upper GI endoscopy Indications: Iron deficiency anemia, Melena Providers: Ender Hennessy DO Medicines: Monitored Anesthesia Care Patient Profile: This is a 67 year old male. Refer to note in patient chart for documentation of history and physical. Patient has symptoms of chronic epigastric abdominal pain and chronic dyspepsia. Complications: No immediate complications. Procedure: Pre-Anesthesia Assessment: - Prior to the procedure, a History and Physical was performed, and patient medications and allergies were reviewed. The risks and benefits of the procedure and the sedation options and risks were discussed with the patient. All questions were answered and informed consent was obtained. Patient identification and proposed procedure were verified by the physician in the pre-procedure area. Mental Status Examination: alert and oriented. Airway Examination: normal oropharyngeal airway and neck mobility. Respiratory Examination: clear to auscultation. CV Examination: normal. Prophylactic Antibiotics: The patient does not require prophylactic antibiotics. Prior Anticoagulants: The patient has taken no previous anticoagulant or antiplatelet agents. After reviewing the risks and benefits, the patient was deemed in satisfactory condition to undergo the procedure. The anesthesia plan was to use monitored anesthesia care (MAC). Immediately prior to administration of medications, the patient was re-assessed for adequacy to receive sedatives. The heart rate, respiratory rate, oxygen saturations, blood pressure, adequacy of pulmonary ventilation, and response to care were monitored throughout the procedure. The physical status of the patient was re-assessed after the procedure. After obtaining informed consent, the endoscope was passed under direct vision. Throughout the procedure, the patient's blood pressure, pulse, and oxygen saturations were monitored continuously. The gastroscope was introduced through the mouth, and advanced to the second part of duodenum. The upper GI endoscopy was accomplished without difficulty. The patient tolerated the procedure well. Scope In: 4:50:11 PM Scope Out: 4:56:11 PM Total Procedure Duration Time 0 hours 6 minutes 0 seconds Findings: The esophagus and gastroesophageal junction were examined with white light and narrow band imaging (NBI) from a forward view and retroflexed position. There were esophageal mucosal changes suspicious for Mendez's esophagus. These changes involved the mucosa at the upper extent of the gastric folds (40 cm from the incisors) extending to the Z-line (33 cm from the incisors). [place]-colored mucosa was present. The maximum longitudinal extent of these esophageal mucosal changes was 6 cm in length. Diffuse severe inflammation characterized by congestion (edema), erosions, erythema and granularity was found in the entire examined stomach. Biopsies were taken with a cold forceps for Helicobacter pylori testing. Verification of patient identification for the specimen was done. Estimated blood loss was minimal. Localized severe inflammation characterized by erythema, friability and granularity was found in the duodenal bulb. One oozing cratered duodenal ulcer with a visible vessel was found in the duodenal bulb. The lesion was 14 mm in largest dimension. Area was successfully injected with 9 mL of a 1:10,000 solution of epinephrine for drug delivery. Coagulation for hemostasis using heater probe was successful. Biopsies were taken with a cold forceps for histology. Verification of patient identification for the specimen was done. Estimated blood loss was minimal. 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 - Chronic gastritis. Biopsied. - Duodenitis. - One oozing duodenal ulcer with a visible vessel. Injected. Treated with a heater probe. Biopsied. Recommendation: - [facility] to [facility] for [facility]. - Give Protonix (pantoprazole): initiate therapy with 80 mg IV bolus, then 8 mg/hr IV by continuous infusion. - Use sucralfate tablets 1 gram PO QID. - Continue present medications. Procedure Code(s): --- Professional --- 56540, 59, Esophagogastroduodenoscopy, flexible, transoral; with control of bleeding, any method 85968, 59, Esophagogastroduodenoscopy, flexible, transoral; with directed submucosal injection(s), any substance 40422, Esophagogastroduodenoscopy, flexible, transoral; with biopsy, single or multiple CPT copyright 2017 [employer]. All rights reserved. The codes documented in this report are preliminary and upon needle bar molder review may be revised to meet current compliance requirements. Ender Hennessy DO 12/13/2022 5:02:16 PM This report has been signed electronically. Number of Addenda: 0 Note Initiated On: 12/13/2022 4:40 PM
[2022-12-13] MEDS: Metoclopramide 10 MG/2 ML Vial 5 MG IV ×2 (18:27→23:33)
[2022-12-13] MEDS: Sucralfate 1 GM Tablet PO (18:27)
[2022-12-13] MEDS: 0.9% Saline Lock 10 ML Syringe IV (18:28)
[2022-12-13] MEDS: traZODone 100 MG Tablet PO (23:33)
[2022-12-14] VITALS (15 sets, daily range): BP systolic 101–147; BP diastolic 60–87; PULSE 55–110; RESP 11–18; TEMP 36.6–37.1; O2SAT 86–100; BMI 24.4
[2022-12-14] MEDS: Phenobarbital 32.4 MG Tablet PO ×5 (00:38→16:19)
[2022-12-14] MEDS: Metoclopramide 10 MG/2 ML Vial 5 MG IV ×3 (05:10→17:41)
[2022-12-14] MEDS: 0.9% Normal Saline 1,000 ML 100 ML IV ×2 (05:10→16:18)
[2022-12-14 06:12] LABS: Absolute Lymphocyte Count 0.45 X10^3/uL (0.83-4.51); Absolute Neutrophil Count 6.3 X10^3/uL (2.0-7.7); Basophil# 0.05 X10^3/uL; Basophil% 0.7 % (0-1); Eosinophil# 0.05 X10^3/uL; Eosinophils% 0.7 % (0-5); Hematocrit 26.1 % (40-54); Hemoglobin 8.5 g/dL (13.0-16.5); Lymphocyte # 0.45 X10^3/ul (0.83-4.51); Lymphocyte % 6.1 % (19-41); Mean Corp Hgb Conc 32.6 g/dL (32-36); Mean Corpuscular Hgb 30.8 pg (27.0-32.0); Mean Corpuscular Volume 94.6 fL (80-94); Mean Platelet Vol. 9.2 fl (6.2-12.0); Monocyte% 5.4 % (0-10); NRBC Flagged by Analyzer 0.3 % (0-5); Neutrophil # 6.28 X10^3/uL (2.7-7.7); Neutrophil % 85.5 % (47-70); POSITIVE DIFFERENTIAL YES; Platelet Count 284 K/mm3 (150-450); RBC Distribution Width CV 15.3 % (11.6-14.6); RBC Distribution Width SD 52.8 fl (35.1-43.9); Red Blood Count 2.76 M/mm3 (4.6-6.2); White Blood Count 7.4 K/mm3 (4.4-11.0)
[2022-12-14 06:22] LABS: Differential Indicated SCAN CRITERIA MET
[2022-12-14] MEDS: Sucralfate 1 GM Tablet PO ×3 (06:31→16:19)
[2022-12-14 06:41] LABS: International Normalized Ratio 1.1; Prothrombin Time (Protime)PT. 13.9 SECONDS (11.7-14.9)
[2022-12-14 06:47] LABS: Anisocytosis 1+; Macrocytosis RARE
[2022-12-14 06:57] LABS: ALB/GLOB Ratio 0.7 RATIO (0.9-2.4); AST(SGOT) 46 U/L (15-37); Alanine Aminotransfer ALT/SGPT 27 U/L (16-61); Albumin, Serum 2.5 g/dL (3.2-5.0); Alkaline Phosphatase 96 U/L (45-117); Anion Gap 9 (5-15); BUN 20 mg/dL (7-18); BUN/Creat Ratio 19.2 RATIO (10-20); Calcium,Total 7.9 mg/dL (8.5-10.1); Chloride 98 mmol/L (98-107); Creatinine, Serum 1.04 mg/dL (0.70-1.30); EST Glomerular Filtration Rate 76 mL/min (>60); Est Glom Filt Rate - Afr Amer 92 mL/min (>60); Estimated Creatinine Clearance 72.14 ml/min; Globulin 3.4 g/dL (2.2-4.2); Glucose 134 mg/dL (74-106); Potassium 3.7 mmol/L (3.5-5.1); Protein, Total 5.9 g/dL (6.4-8.2); Sodium Level 131 mmol/L (136-145)
--- NOTE | 2022-12-14 08:32 | PN.HOSP_ITS ---
Reason for Visit Reason for Visit: Diagnoses Acute posthemorrhagic anemia (12/12/22) Hypo-osmolality and hyponatremia (12/12/22) Acidosis, unspecified (12/12/22) Alcohol use, unspecified with withdrawal, unspecified (12/12/22) Gastrointestinal hemorrhage, unspecified (12/12/22) Other nonspecific abnormal finding of lung field (12/12/22) Subjective Subjective denies any complaints. Objective Data Objective Data Vital Signs: Vital Signs Temp Pulse Resp BP Pulse Ox O2 Del Method 37.1 C 73 16 136/83 H 100 Room Air 12/14/22 07:52 12/14/22 07:52 12/14/22 07:52 12/14/22 07:52 12/14/22 07:52 12/14/22 07:52 Oxygen Delivery Method Room Air Weight: 77.3 kg Body Mass Index (BMI) 24.4 Intake & Output: Intake and Output for Last 24 Hours 12/12/22 12/13/22 12/14/22 23:59 23:59 23:59 Intake Total 1035 / 1035 4270.83 / 4270.83 963.33 / 963.33 Output Total 300 / 300 1000 / 1000 Balance 1035 / 1035 3970.83 / 3970.83 -36.67 / -36.67 Lab / Micro Data Result Diagrams: 12/14/22 05:10 12/14/22 05:10 Labs: Laboratory Results - last 24 hr 12/14/22 05:10: WBC 7.4, RBC 2.76 L, Hgb 8.5 L, Hct 26.1 L, MCV 94.6 H, MCH 30.8, MCHC 32.6, RDW Std Deviation 52.8 H, RDW Coeff of Jesus 15.3 H, Plt Count 284, MPV 9.2, Immature Gran % (Auto) 1.600 H, Neut % (Auto) 85.5 H, Lymph % (Auto) 6.1 L, [place] % (Auto) 5.4, Eos % (Auto) 0.7, Baso % (Auto) 0.7, Absolute Neuts (auto) 6.3, Absolute Lymphs (auto) 0.45 L, Nucleated RBC % 0.3, An isocytosis 1+, Macrocytosis RARE 12/14/22 05:10: PT 13.9, INR 1.1 12/14/22 05:10: Sodium 131 L, Potassium 3.7, Chloride 98, Carbon Dioxide 24.0, Anion Gap 9, BUN 20 H, Creatinine 1.04, Estim Creat Clear Calc 72.14, Est GFR (MDRD) Af Amer 92, Est GFR (MDRD) Non-Af 76, BUN/Creatinine Ratio 19.2, Glucose 134 H, Calcium 7.9 L, Total Bilirubin 0.50, AST 46 H, ALT 27, Alkaline Phosphatase 96, Total Protein 5.9 L, Albumin 2.5 L, Globulin 3.4, Albumin/Globulin Ratio 0.7 L Micro: Microbiology 12/12/22 22:14 Mucosa - Nasopharyngeal Respiratory Panel (PCR) - Final 12/12/22 20:35 Stool Stool Occult Blood (VENKATA) - Final Occult Blood Positive Physical Exam Const Constitutional Narrative: sleeping, awoke easily. non-toxic. HEENT head/scalp atraumatic and moist oral mucous membranes Resp normal respiratory effort, no retractions, no use of accessory muscles and clear to auscultation bilaterally Cardio regular rate, regular rhythm, S1 normal heart sound and S2 normal heart sound GI normal to inspection, nondistended, normoactive bowel sounds, soft to palpation, non-tender and non-distended Extremity normal to inspection Assessment & Plan Assessment/Plan (1) GI bleed: PLAN: Acute GI Bleed w/ resultant Acute Blood Loss Anemia complicated by underlying alcohol abuse with possibly Syncopal event associated with his GI bleed presentation/acute blood loss: will admit to medical surgical floor on telemetry to be cautious given mild tachycardia although vital signs otherwise stable, will continue to obtain serial H&H's, will continue T and C with 2 u PRBC administration per ED physician initiation, will maintain on IV Protonix drip, initiate octreotide given alcohol abuse history and continue IV Rocephin therapy, EGD on 12/14: esophageal mucosal changes suspicious for David's, chronic gastritis (biopsied), duodenitis, one oozing duodenal ulcer w visible vessel injected contiue PPI gtt and sucralfate (2) Acute blood loss anemia: PLAN: Suspect likely acute on chronic anemia stable Transfused 2 units PRBCs. (3) Lactic acidosis: PLAN: Lactic acidosis: Admission lactic acid 3.5, do suspect some component of hypovolemia, also acute GI bleed presentation concurrently, will maintain on IV fluids and trend lactic acid per facility protocol. (4) Alcohol withdrawal: PLAN: Impending Acute EtOH Withdrawal: Patient with heavy alcohol abuse likely related to underlying untreated anxiety and depression, will cautiously initiate on phenobarbital taper, as needed gabapentin, Catapres, Bentyl, Vistaril, IV fluids, IV antiemetics, Tylenol as needed for pain. Will defer any NSAID th erapy given acute presentation number 1. Will consult Case management for assistance for transition to next level of rehabilitation care. Mag, phos pending. Maintain on CIWA protocol concurrently. (5) Hyponatremia: PLAN: Hyponatremia, suspected chronic component, concurrent hypovolemic component as well: Patient with admission sodium 132, chloride 94, suspected also hypovolemic component given presentation however patient does have chronic high beer consumption therefore certainly could be beer potomania contribution, will continue to hydrate as noted, repeat CMP in AM. Check TSH (6) Mass of left lung: PLAN: Incidental small pleural-based patchy opacity left pulmonary apex: Possibly inflammatory, certainly could have had some aspiration given alcohol abuse history and potentially passed out but unclear, respiratory viral panel requested, will continue to monitor, trend CBC, procalcitonin requested. PLAN: Plan Chronic conditions: * Anxiety and depression: Patient does admit to underlying anxiety and depression, not on any medication, case management consulted for substance abuse as this is likely contributing greatly to his continued alcohol abuse history. * Chew Tobacco Abuse: Encouraged cessation, inpatient consultation per RT, NR if desired. 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 DVT prophylaxis: SCDs given acute GI bleed presentation as noted. CODE status: Full code. 12/13: Pt with bizarre comments and questions. Unclear if he is trying to be witty and funny, or if he is just blatantly inappropriate. Charges/Coding Visit Charges Inpatient E&M: 30365 Subs Hosp L2
[2022-12-14] MEDS: hydrOXYzine PAM 25 MG Capsule 50 MG PO ×2 (08:59→16:19)
[2022-12-14] MEDS: Folic Acid 1 MG Tablet PO (08:59)
[2022-12-14] MEDS: Thiamine Hydrochloride 100 MG Tablet PO (09:02)
[2022-12-14] MEDS: Acetaminophen 325 MG Tablet 650 MG PO ×2 (09:02→16:19)
--- NOTE | 2022-12-14 14:46 | CHAPLAIN ---
Type of Pastoral Visit _x__ Initial Visit ___ Follow-up Visit ___ On-call Visit ___ General Patient Visit ___ Spiritual Assessment ___ Family Conference ___ Bereavement ___ Rapid Response ___ Code Blue ___ Other (describe below) Pastoral Care Referral From __x_ Patient ___ Family ___ Nurse ___ Physician ___ Desktop Publishing Associate ___ Steel Pourer ___ Other (describe below) Sacrament/Intervention _x__ Active listening ___ Anointing ___ Pentecostal ___ Bereavement ___ Communion _x__ Estrella exploration ___ _x__ Life review _x__ Prayer ___ Reconciliation ___ Sacrament of Sick _x__ Supportive presence ___ Wedding ___ Other (describe below) Pastoral Comments patient is very welcoming; pt expresses need for prayer; pt speaks of alcohol abuses and that I am dying; 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
[2022-12-14] MEDS: Gabapentin 300 MG Capsule PO (17:40)
[2022-12-14] MEDS: 0.9% Saline Lock 10 ML Syringe IV ×2 (19:45→21:09)
[2022-12-14] MEDS: LORazepam 2 MG/ML Syringe IV (19:45)
--- NOTE | 2022-12-14 19:52 | PCM.PROGNOTE ---
Subjective Subjective Patient is not having any abdominal pain. He is not having any signs of bleeding at this time. Objective Data Objective Data Vital Signs: Vital Signs Temp Pulse Resp BP Pulse Ox O2 Del Method 98.3 F 86 16 120/83 H 98 Room Air 12/14/22 15:59 12/14/22 15:59 12/14/22 15:59 12/14/22 15:59 12/14/22 15:59 12/14/22 15:59 Oxygen Delivery Method Room Air Weight: 170 lb 6.677 oz Body Mass Index (BMI) 24.4 Intake & Output: Intake and Output for Last 24 Hours 12/12/22 12/13/22 12/14/22 23:59 23:59 23:59 Intake Total 1035 / 1035 4270.83 / 4270.83 3155.91 / 3155.91 Output Total 300 / 300 2200 / 2200 Balance 1035 / 1035 3970.83 / 3970.83 955.91 / 955.91 Lab / Micro Data Result Diagrams: 12/14/22 05:10 12/14/22 05:10 Labs: Laboratory Results - last 24 hr 12/14/22 05:10: WBC 7.4, RBC 2.76 L, Hgb 8.5 L, Hct 26.1 L, MCV 94.6 H, MCH 30.8, MCHC 32.6, RDW Std Deviation 52.8 H, RDW Coeff of Jesus 15.3 H, Plt Count 284, MPV 9.2, Immature Gran % (Auto) 1.600 H, Neut % (Auto) 85.5 H, Lymph % (Auto) 6.1 L, [place] % (Auto) 5.4, Eos % (Auto) 0.7, Baso % (Auto) 0.7, Absolute Neuts (auto) 6.3, Absolute Lymphs (auto) 0.45 L, Nucleated RBC % 0.3, Anisocytosis 1+, Macrocytosis RARE 12/14/22 05:10: PT 13.9, INR 1.1 12/14/22 05:10: Sodium 131 L, Potassium 3.7, Chloride 98, Carbon Dioxide 24.0, Anion Gap 9, BUN 20 H, Creatinine 1.04, Estim Creat Clear Calc 72.14, Est GFR (MDRD) Af Amer 92, Est GFR (MDRD) Non-Af 76, BUN/Creatinine Ratio 19.2, Glucose 134 H, Calcium 7.9 L, Total Bilirubin 0.50, AST 46 H, ALT 27, Alkaline Phosphatase 96, Total Protein 5.9 L, Albumin 2.5 L, Globulin 3.4, Albumin/Globulin Ratio 0.7 L Micro: Microbiology 12/12/22 22:14 Mucosa - Nasopharyngeal Respiratory Panel (PCR) - Final 12/12/22 20:35 Stool Stool Occult Blood (VENKATA) - Final Occult Blood Positive Physical Exam Const Constitutional Narrative: sleeping, awoke easily. non-toxic. HEENT head/scalp atraumatic and moist oral mucous membranes Resp normal respiratory effort, no retractions, no use of accessory muscles and clear to auscultation bilaterally Cardio regular rate, regular rhythm, S1 normal heart sound and S2 normal heart sound GI normal to inspection, nondistended, normoactive bowel sounds, soft to palpation, non-tender and non-distended Extremity normal to inspection Assessment & Plan Assessment/Plan (1) GI bleed: (2) Acute blood loss anemia: (3) Lactic acidosis: (4) Alcohol withdrawal: (5) Hyponatremia: (6) Mass of left lung: PLAN: Plan The patient is a 67 y/o with PMH EtOH abuse , History tonsillary CA s/p resection/chemotherapy in remission who presents to the [facility] ED on 12/12/22 with history of eventually passing out awakening at approximately 4 PM of day of ED presentation however when he attempted to get up he felt extremely weak reportedly laying on the floor prior to even being overly get up eventually crawling over the couch prompting EMS call who reported that they were concerned for some type of possible spasms of his extremities that lasted a few seconds however this completely subsided when they picked him up and he immediately awoke with any postictal phase or state with no loss of bowel or bladder prompting ED transition for evaluation. Anemia: Agree it is likely acute on chronic anemia in the setting of likely GI the with a different gnosis pain peptic ulcer disease, cirrhosis with esophageal, gastric or duodenal varices, portal gastropathy, gastric antral vascular ectasia, Nate's erosions. He should undergo an upper endoscopy to evaluate his upper GI tract. Agree with octreotide, PPI drip and ceftriaxone. He was explained alternatives, risk, benefits including outstanding bleeding, infection, sepsis, perforation, need for emergent urgent . He will have an ASA of 3. 5/18: Hemoglobin seems to be stable and improving. Platelet count is stable. INR is stable. He is tolerating a diet. Alcoholic Fatty Liver Disease without cirrhosis. He will need to have repeat egd in the future to ensure that it heals appropriately. Continue medical therapy. Charges/Coding Visit Charges Inpatient E&M: 51123 Subs Hosp L3
[2022-12-14] MEDS: Ceftriaxone 1 GM/50 ML BAG IV (21:09)
--- NOTE | 2022-12-14 21:29 | NURSING ---
1914 Pt's bed alarm going off. This RN walks into pt's room, pt is attempting to ambulate in his room, getting tangled up in his IV tubing, saying he is going to leave and we can't make him stay. Pt is confused, not sure where he's at, attempting to find his shoes and keys. Staff attempts to re-orient pt and redirect him are unsuccessful. Dr. Souza at bedside, along with pt's visitor. Verbal order from physician for one-time 2mg IV ativan. Dr. Souza requesting security be called. This RN notified security. 1929 morals squad police officer at bedside talking to pt. 1944 2mg IV ativan given. 2014 Order to transfer pt to ICU for closer supervision and precedex gtt. 2029 Pt transferred to [id number], family at bedside notified, plan of care discussed.
[2022-12-15] VITALS (25 sets, daily range): BP systolic 105–141; BP diastolic 57–94; PULSE 55–65; RESP 11–18; TEMP 36.1–36.6; O2SAT 95–100; BMI 25.2
[2022-12-15] MEDS: Metoclopramide 10 MG/2 ML Vial 5 MG IV ×4 (00:09→18:05)
[2022-12-15] MEDS: Phenobarbital 32.4 MG Tablet PO ×5 (00:09→20:10)
[2022-12-15] MEDS: 0.9% Saline Lock 10 ML Syringe IV ×5 (00:09→04:52)
[2022-12-15] MEDS: 0.9% Normal Saline 1,000 ML 100 ML IV ×3 (04:16→22:05)
[2022-12-15 04:43] LABS: Absolute Lymphocyte Count 0.46 X10^3/uL (0.83-4.51); Absolute Neutrophil Count 1.9 X10^3/uL (2.0-7.7); Basophil# 0.04 X10^3/uL; Basophil% 1.4 % (0-1); Eosinophil# 0.08 X10^3/uL; Eosinophils% 2.8 % (0-5); Hematocrit 24.3 % (40-54); Hemoglobin 7.8 g/dL (13.0-16.5); Lymphocyte # 0.46 X10^3/ul (0.83-4.51); Lymphocyte % 16.3 % (19-41); Mean Corp Hgb Conc 32.1 g/dL (32-36); Mean Corpuscular Hgb 30.7 pg (27.0-32.0); Mean Corpuscular Volume 95.7 fL (80-94); Mean Platelet Vol. 9.1 fl (6.2-12.0); Monocyte# 0.24 X10^3/uL; Monocyte% 8.5 % (0-10); NRBC Flagged by Analyzer 0 % (0-5); Neutrophil # 1.91 X10^3/uL (2.7-7.7); Neutrophil % 67.5 % (47-70); POSITIVE DIFFERENTIAL YES; Platelet Count 205 K/mm3 (150-450); RBC Distribution Width CV 14.8 % (11.6-14.6); RBC Distribution Width SD 51.9 fl (35.1-43.9); Red Blood Count 2.54 M/mm3 (4.6-6.2); White Blood Count 2.8 K/mm3 (4.4-11.0)
[2022-12-15 04:51] LABS: Differential Indicated SCAN CRITERIA MET
[2022-12-15 04:57] LABS: Anisocytosis 1+; Macrocytosis RARE
[2022-12-15 05:00] LABS: ALB/GLOB Ratio 0.7 RATIO (0.9-2.4); AST(SGOT) 34 U/L (15-37); Alanine Aminotransfer ALT/SGPT 21 U/L (16-61); Alkaline Phosphatase 85 U/L (45-117); Anion Gap 6 (5-15); BUN 13 mg/dL (7-18); BUN/Creat Ratio 15.4 RATIO (10-20); Calcium,Total 7.4 mg/dL (8.5-10.1); Chloride 102 mmol/L (98-107); Creatinine, Serum 0.84 mg/dL (0.70-1.30); EST Glomerular Filtration Rate 97 mL/min (>60); Est Glom Filt Rate - Afr Amer 117 mL/min (>60); Estimated Creatinine Clearance 89.32 ml/min; Globulin 2.9 g/dL (2.2-4.2); Glucose 138 mg/dL (74-106); Potassium 4.1 mmol/L (3.5-5.1); Protein, Total 4.9 g/dL (6.4-8.2); Sodium Level 133 mmol/L (136-145); Thyroid Stim Hormone (TSH) 0.35 uIU/mL (0.358-3.74)
[2022-12-15] MEDS: TITRATION PARAMETER CHANGE 1 EACH IV (05:16)
--- NOTE | 2022-12-15 07:13 | PN.HOSP_ITS ---
Reason for Visit Reason for Visit: Diagnoses Acute posthemorrhagic anemia (12/12/22) Hypo-osmolality and hyponatremia (12/12/22) Acidosis, unspecified (12/12/22) Alcohol use, unspecified with withdrawal, unspecified (12/12/22) Gastrointestinal hemorrhage, unspecified (12/12/22) Other nonspecific abnormal finding of lung field (12/12/22) Subjective Subjective Still requiring dexmedetomidine gtt. Objective Data Objective Data Vital Signs: Vital Signs Temp Pulse Resp BP Pulse Ox O2 Del Method O2 Flow Rate 36.6 C 62 12 127/79 H 100 Nasal Cannula 2 12/15/22 04:00 12/15/22 07:00 12/15/22 07:00 12/15/22 07:00 12/15/22 07:00 12/15/22 07:00 12/15/22 07:00 Oxygen Flow Rate (L/min) 2 Oxygen Delivery Method Nasal Cannula Weight: 79.8 kg Body Mass Index (BMI) 25.2 Intake & Output: Intake and Output for Last 24 Hours 12/13/22 12/14/22 12/15/22 23:59 23:59 23:59 Intake Total 4270.83 / 4270.83 3322.75 / 3332.45 1153.66 / 1153.66 Output Total 300 / 300 2475 / 3175 1850 / 1850 Balance 3970.83 / 3970.83 847.75 / 157.45 -696.34 / -696.34 Lab / Micro Data Result Diagrams: 12/15/22 04:35 12/15/22 04:20 Labs: Laboratory Results - last 24 hr 12/15/22 04:20: Sodium 133 L, Potassium 4.1, Chloride 102, Carbon Dioxide 25.0, Anion Gap 6, BUN 13, Creatinine 0.84, Estim Creat Clear Calc 89.32, Est GFR (MDRD) Af Amer 117, Est GFR (MDRD) Non-Af 97, BUN/Creatinine Ratio 15.4, Glucose 138 H, Calcium 7.4 L, Total Bilirubin 0.20, AST 34, ALT 21, Alkaline Phosphatase 85, Total Protein 4.9 L, Albumin 2.0 L, Globulin 2.9, Albumin/Globulin Ratio 0.7 L, TSH 0.35 L 12/15/22 04:35: WBC 2.8 L, RBC 2.54 L, Hgb 7.8 L, Hct 24.3 L, MCV 95.7 H, MCH 30.7, MCHC 32.1, RDW Std Deviation 51.9 H, RDW Coeff of Jesus 14.8 H, Plt Count 205, MPV 9.1, Immature Gran % (Auto) 3.500 H, Neut % (Auto) 67.5, Lymph % (Auto) 16.3 L, [place] % (Auto) 8.5, Eos % (Auto) 2.8, Baso % (Auto) 1.4 H, Absolute Neuts (auto) 1.9 L, Absolute Lymphs (auto) 0.46 L, Nucleated RBC % 0, Anisocytosis 1+, Macrocytosis RARE Micro: Microbiology 12/12/22 22:14 Mucosa - Nasopharyngeal Respiratory Panel (PCR) - Final 12/12/22 20:35 Stool Stool Occult Blood (VENKATA) - Final Occult Blood Positive Physical Exam Const Constitutional Narrative: somnolent. HEENT head/scalp atraumatic Resp normal respiratory effort, no retractions, no use of accessory muscles and clear to auscultation bilaterally Cardio regular rate, regular rhythm, S1 normal heart sound and S2 normal heart sound GI normal to inspection, nondistended, normoactive bowel sounds, soft to palpation and non-tender Assessment & Plan Assessment/Plan (1) GI bleed: PLAN: Acute GI Bleed w/ resultant Acute Blood Loss Anemia complicated by underlying alcohol abuse with possibly Syncopal event associated with his GI bleed presentation/acute blood loss: will admit to medical surgical floor on telemetry to be cautious given mild tachycardia although vital signs otherwise s table, will continue to obtain serial H&H's, will continue T and C with 2 u PRBC administration per ED physician initiation, will maintain on IV Protonix drip, initiate octreotide given alcohol abuse history and continue IV Rocephin therapy, EGD on 12/14: esophageal mucosal changes suspicious for David's, chronic gastritis (biopsied), duodenitis, one oozing duodenal ulcer w visible vessel injected contiue PPI gtt and sucralfate DC octreotide (2) Acute blood loss anemia: PLAN: Suspect likely acute on chronic anemia stable Transfused 2 units PRBCs. (3) Lactic acidosis: PLAN: Lactic acidosis: Admission lactic acid 3.5, do suspect some component of hypovolemia, also acute GI bleed presentation concurrently, will maintain on IV fluids and trend lactic acid per facility protocol. (4) Alcohol withdrawal: PLAN: Impending Acute EtOH Withdrawal: Patient with heavy alcohol abuse likely related to underlying untreated anxiety and depression, will cautiously initiate on phenobarbital taper, as needed gabapentin, Catapres, Bentyl, Vistaril, IV fluids, IV antiemetics, Tylenol as needed for pain. Will defer any NSAID therapy given acute presentation number 1. Will consult Case management for assistance for transition to next level of rehabilitation care. Mag, phos pending. Maintain on CIWA protocol concurrently. 12/14: pt became more confused. He called his neighbor to pick him up. When she arrived, she verified that he is confused. Patient was started on dexmedetomidine gtt. (5) Hyponatremia: PLAN: Hyponatremia, suspected chronic component, concurrent hypovolemic component as well: Patient with admission sodium 132, chloride 94, suspected also hypovolemic component given presentation however patient does have chronic high beer consumption therefore certainly could be beer potomania contribution, will continue to hydrate as noted, repeat CMP in AM. Check TSH (6) Mass of left lung: PLAN: Incidental small pleural-based patchy opacity left pulmonary apex: Possibly inflammatory, certainly could have had some aspiration given alcohol abuse history and potentially passed out but unclear, respiratory viral panel requested, will continue to monitor, trend CBC, procalcitonin requested. PLAN: Plan Chronic conditions: * Anxiety and depression: Patient does admit to underlying anxiety and depression, not on any medication, case management consulted for substance abuse as this is likely contributing greatly to his continued alcohol abuse history. * Chew Tobacco Abuse: Encouraged cessation, inpatient consultation per RT, NR if desired. 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 DVT prophylaxis: SCDs given acute GI bleed presentation as noted. CODE status: Full code. Charges/Coding Visit Charges Inpatient E&M: 25482 Subs Hosp L2
[2022-12-15] MEDS: Thiamine Hydrochloride 100 MG Tablet PO (08:30)
[2022-12-15] MEDS: Folic Acid 1 MG Tablet PO (08:30)
[2022-12-15] MEDS: Gabapentin 300 MG Capsule PO ×2 (08:30→15:58)
--- NOTE | 2022-12-15 09:39 | CASEMGMT ---
SW will continue to follow to assess SDOH needs. Nika Gonzalez [employer]PER [employer] FLOOR SUPERVISOR
[2022-12-15 10:32] LABS: Pathologist Review Reviewed
[2022-12-15] MEDS: Sucralfate 1 GM Tablet PO ×2 (11:17→15:52)
[2022-12-15] MEDS: Ceftriaxone 1 GM/50 ML BAG IV (22:06)
[2022-12-16] VITALS (27 sets, daily range): BP systolic 97–145; BP diastolic 48–104; PULSE 59–129; RESP 11–21; TEMP 36.2–36.9; O2SAT 97–100; BMI 25.2
[2022-12-16] MEDS: Metoclopramide 10 MG/2 ML Vial 5 MG IV ×5 (00:28→23:48)
[2022-12-16] MEDS: 0.9% Saline Lock 10 ML Syringe IV ×2 (03:25→10:53)
[2022-12-16] MEDS: Phenobarbital 32.4 MG Tablet PO ×4 (03:25→21:35)
[2022-12-16 03:43] LABS: Absolute Neutrophil Count 2.7 X10^3/uL (2.0-7.7); Basophil# 0.04 X10^3/uL; Basophil% 1.1 % (0-1); Eosinophil# 0.09 X10^3/uL; Eosinophils% 2.5 % (0-5); Hematocrit 24.8 % (40-54); Hemoglobin 8.2 g/dL (13.0-16.5); Lymphocyte % 8.5 % (19-41); Mean Corp Hgb Conc 33.1 g/dL (32-36); Mean Corpuscular Volume 96.9 fL (80-94); Mean Platelet Vol. 9.2 fl (6.2-12.0); Monocyte# 0.34 X10^3/uL; Monocyte% 9.6 % (0-10); NRBC Flagged by Analyzer 0 % (0-5); Neutrophil # 2.71 X10^3/uL (2.7-7.7); Neutrophil % 76.6 % (47-70); POSITIVE DIFFERENTIAL YES; Platelet Count 219 K/mm3 (150-450); RBC Distribution Width CV 14.8 % (11.6-14.6); RBC Distribution Width SD 51.4 fl (35.1-43.9); Red Blood Count 2.56 M/mm3 (4.6-6.2); White Blood Count 3.5 K/mm3 (4.4-11.0)
[2022-12-16 03:56] LABS: ALB/GLOB Ratio 0.7 RATIO (0.9-2.4); AST(SGOT) 32 U/L (15-37); Alanine Aminotransfer ALT/SGPT 20 U/L (16-61); Albumin, Serum 1.9 g/dL (3.2-5.0); Alkaline Phosphatase 94 U/L (45-117); Anion Gap 7 (5-15); BUN 8 mg/dL (7-18); BUN/Creat Ratio 9.4 RATIO (10-20); Calcium,Total 7.3 mg/dL (8.5-10.1); Chloride 102 mmol/L (98-107); Creatinine, Serum 0.85 mg/dL (0.70-1.30); EST Glomerular Filtration Rate 96 mL/min (>60); Est Glom Filt Rate - Afr Amer 116 mL/min (>60); Estimated Creatinine Clearance 88.27 ml/min; Globulin 2.9 g/dL (2.2-4.2); Glucose 90 mg/dL (74-106); Potassium 3.8 mmol/L (3.5-5.1); Protein, Total 4.8 g/dL (6.4-8.2); Sodium Level 134 mmol/L (136-145)
[2022-12-16 03:58] LABS: Differential Indicated SCAN CRITERIA MET
[2022-12-16 04:37] LABS: Differential Comment SCANNED
[2022-12-16] MEDS: Sucralfate 1 GM Tablet PO ×3 (06:06→15:58)
--- NOTE | 2022-12-16 07:30 | PN.HOSP_ITS ---
Reason for Visit Reason for Visit: Diagnoses Acute posthemorrhagic anemia (12/12/22) Hypo-osmolality and hyponatremia (12/12/22) Acidosis, unspecified (12/12/22) Alcohol use, unspecified with withdrawal, unspecified (12/12/22) Gastrointestinal hemorrhage, unspecified (12/12/22) Other nonspecific abnormal finding of lung field (12/12/22) Subjective Subjective More alert. He has no recollection of calling his neighbor to pick him on the . Objective Data Objective Data Vital Signs: Vital Signs Temp Pulse Resp BP Pulse Ox O2 Del Method O2 Flow Rate 36.6 C 62 13 136/67 H 100 Room Air 2 12/16/22 04:00 12/16/22 07:00 12/16/22 07:00 12/16/22 07:00 12/16/22 07:00 12/16/22 07:00 12/15/22 07:39 Oxygen Flow Rate (L/min) 2 Oxygen Delivery Method Room Air Weight: 79.8 kg Body Mass Index (BMI) 25.2 Intake & Output: Intake and Output for Last 24 Hours 12/14/22 12/15/22 12/16/22 23:59 23:59 23:59 Intake Total 3322.75 / 3332.45 3695.32 / 3701.32 246.97 / 246.97 Output Total 2475 / 3175 3950 / 3950 1300 / 1300 Balance 847.75 / 157.45 -254.68 / -248.68 -1053.03 / -1053.03 Lab / Micro Data Result Diagrams: 12/16/22 03:30 12/16/22 03:30 Labs: Laboratory Results - last 24 hr 12/15/22 04:35: Diff Path Review Reviewed 12/16/22 03:30: WBC 3.5 L, RBC 2.56 L, Hgb 8.2 L, Hct 24.8 L, MCV 96.9 H, MCH 32.0, MCHC 33.1, RDW Std Deviation 51.4 H, RDW Coeff of Jesus 14.8 H, Plt Count 219, MPV 9.2, Immature Gran % (Auto) 1.700 H, Neut % (Auto) 76.6 H, Lymph % (Auto) 8.5 L, [place] % (Auto) 9.6, Eos % (Auto) 2.5, Baso % (Auto) 1.1 H, Absolute Neuts (auto) 2.7, Absolute Lymphs (auto) 0.30 L, Nucleated RBC % 0, Differential Comment SCANNED, Diff Path Review November12/16/22 03:30: Sodium 134 L, Potassium 3.8, Chloride 102, Carbon Dioxide 25.0, Anion Gap 7, BUN 8, Creatinine 0.85, Estim Creat Clear Calc 88.27, Est GFR (MDRD) Af Amer 116, Est GFR (MDRD) Non-Af 96, BUN/Creatinine Ratio 9.4 L, Glucose 90, Calcium 7.3 L, Total Bilirubin 0.20, AST 32, ALT 20, Alkaline Phosphatase 94, Total Protein 4.8 L, Albumin 1.9 L, Globulin 2.9, Albumin/Globulin Ratio 0.7 L Micro: Microbiology 12/12/22 22:14 Mucosa - Nasopharyngeal Respiratory Panel (PCR) - Final 12/12/22 20:35 Stool Stool Occult Blood (VENKATA) - Final Occult Blood Positive Physical Exam Const alert and no apparent distress Constitutional Narrative: attempts to distract questions with comments are you a fighter? HEENT head/scalp atraumatic and moist oral mucous membranes Cardio regular rate, regular rhythm, S1 normal heart sound and S2 normal heart sound GI normal to inspection, nondistended, normoactive bowel sounds, soft to palpation, non-tender and non-distended Extremity Extremity Narrative: stage II ulcer on left elbow. Assessment & Plan Assessment/Plan (1) GI bleed: PLAN: Acute GI Bleed w/ resultant Acute Blood Loss Anemia complicated by underlying alcohol abuse with possibly Syncopal event associated with his GI bleed presentation/acute blood loss: will admit to medical surgical floor on telemetry to be cautious given mild tachycardia although vital signs otherwise stable, will continue to obtain serial H&H's, will continue T and C with 2 u PRBC administration per ED physician initiation, will maintain on IV Protonix drip, initiate octreotide given alcohol abuse history and continue IV Rocephin therapy, EGD on 12/14: esophageal mucosal changes suspicious for David's, chronic gastritis (biopsied), duodenitis, one oozing duodenal ulcer w visible vessel injected continue sucralfate 12/15 DC'd octreotide gtt 12/16: it has been over 72h w pantoprazole gtt, will change to IV boluses. (2) Acute blood loss anemia: PLAN: Suspect likely acute on chronic anemia stable Transfused 2 units PRBCs. (3) Lactic acidosis: PLAN: Resolved w IVF Admission lactic acid 3.5 (4) Alcohol withdrawal: PLAN: Impending Acute EtOH Withdrawal: Patient with heavy alcohol abuse likely related to underlying untreated anxiety and depression, will cautiously initiate on phenobarbital taper, as needed gabapentin, Catapres, Bentyl, Vistaril, IV fluids, IV antiemetics, Tylenol as needed for pain. Will defer any NSAID therapy given acute presentation number 1. Will consult Case management for assistance for transition to next level of rehabilitation care. Mag, phos pending. Maintain on CIWA protocol concurrently. 12/14: pt became more confused. He called his neighbor to pick him up. When she arrived, she verified that he is confused. Patient was started on dexmedetomidine gtt. 12/15: somnolent w dexmedetomidine gtt 12/16: still on dexmedetomidine gtt. Though overall improved. (5) Hyponatremia: PLAN: Hyponatremia, suspected chronic component, concurrent hypovolemic component as well: Patient with admission sodium 132, chloride 94, suspected also hypovolemic component given presentation however patient does have chronic high beer consumption therefore certainly could be beer potomania contribution, will continue to hydrate as noted, repeat CMP in AM. TSH 0.35, check free T4 and T3 (6) Mass of left lung: PLAN: Incidental small pleural-based patchy opacity left pulmonary apex: Possibly inflammatory, certainly could have had some aspiration given alcohol abuse history and potentially passed out but unclear, respiratory viral panel requested, will continue to monitor, trend CBC, procalcitonin requested. (7) Stage II pressure ulcer: PLAN: left elbow. no current concern for cellulitis at this time. PLAN: Plan Chronic conditions: * Anxiety and depression: Patient does admit to underlying anxiety and depression, not on any medication, case management consulted for substance abuse as this is likely contributing greatly to his continued alcohol abuse history. * Chew Tobacco Abuse: Encouraged cessation, inpatient consultation per RT, NR if desired. 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 DVT prophylaxis: SCDs given acute GI bleed presentation as noted. CODE status: Full code. Charges/Coding Visit Charges Inpatient E&M: 94214 Subs Hosp L2
[2022-12-16 08:18] LABS: Free T3 0.9 pg/mL (2.18-3.98); T4 Free Direct 1.03 ng/dL (0.76-1.46)
[2022-12-16] MEDS: 0.9% Normal Saline 1,000 ML 100 ML IV ×2 (08:31→18:43)
[2022-12-16] MEDS: Folic Acid 1 MG Tablet PO (08:37)
[2022-12-16] MEDS: Thiamine Hydrochloride 100 MG Tablet PO (08:37)
[2022-12-16] MEDS: LORazepam 2 MG/ML Syringe IV (10:53)
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
--- NOTE | 2022-12-16 17:17 | CASEMGMT ---
Social Work Psychiatric Assessment Reason for Consult: mental health Informants: PatientMessi Chief Complaint: Patient reports ?I fell and I couldn?t get up?. Demographics: Patient is a 67 year old heterosexual male. Patient is and has 3 adult sons and one daughter. Patient lives in a home he owns with his brother, Luís, and reports an overall good relationship. Patient reports no experience. 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 Mental Health Treatment/ History: Patient reports he has never engaged in counseling services. Supports/ Resources: Patient identified several family members as support. ? Triggers/ stressors: Patient explained he has struggled emotionally since his ex him 8 years ago and noticed feeling lonely after four years. Patient also reports stressors related to his health, explaining he finished chemo and radiation over a year ago and lost almost 100 pounds during that time. Patient reports continued strugglg with help as he has been having black feces and struggling with mobility. Legal Issues: none Coping Skills: Patient reports he has been drinking to cope for years and use to go to [place] to drink with members. ? Abuse History: ? Patient denies physical or sexual abuse and notes his niece can be verbally abusive. ??? Substance Abuse Hx: Patient reports struggling with drinking since his him. Patient explained it didn?t become a problem until two years ago when he increased his amount and frequency. Patient reports he drinks beer and liquor but not together. Patient explained he has a ?puke bucket? by his bed due to drinking. Patient can?t recall how much he drank this week but recalls ?taking a couple of sips of [place] before I fell?. Patient explained ?I never thought I would drink so much that I would need help to stop?. ??? Risk to Self/Others: ? Suicidal: SW assessed patient in completing Major Suicide Screening, patient I low risk for suicide as he reports he has not gone to bed and wished he wouldn?t wake up and denied having thoughts of ending his life. Patient reports he has never attempted suicide nor been to psychiatric hospital. ? Homicidal: Patient reports when he was younger and thinking of enlisting in he changed his mind because he doesn?t think he could hurt anyone. SW inquired about statements patient made to RN regarding shooting his ex ?s boyfriend. Patient explained it was a passive statement he didn?t recall making until the staff reminded him. Patient reports he has no intent nor plan and would only shoot him in self-defense if he had to. SW inquired about thoughts towards hurting his ex or others. Patient reports having an okay relationship with his ex and spoke with her today about his hospital stay. ? Violence: Patient denies violence towards himself or others. ?? Mental Status Exam: ? Orientation: Patient able to identify his name, where he is, the year and the current president. ? Memory: good ? Appearance:? Patient is lying in hospital bed in gown on his side, disheveled. ? Mood/ affect: Appropriate with congruent affect ? Communication Pattern: responds to questions ? Thought Process: rational, denies A/VH ? General Intellectual Functioning: average Judgement: fair Insight: fair? Assessment: SW informed by patient?s RN patient made a statement about wanting to shoot his ex-?s boyfriend and his ex- if she got in the way. SW to assess. ? SHAYNA met with patient and introduced herself and role as [facility] Laminate Floor Installer. Patient was agreeable to speak to social work. SHAYNA then utilized open and close ended questions to gather information for patient?s assessment. Patient identified family support, denies trauma history and denies current or previous mental health treatment. Patient reports changes in appetite and sleep related to his medical conditions. Patient explained his health has been a stressor as well as his ex- him eight years ago. Patient recalls drinking more after the divorce and increasing use the past two years. Patient was tearful explaining he needs help to stop drinking at discharge. Patient not interested in [facility] detox program at this time but is receptive towards AOD resources. Emotional support was provided throughout assessment. Patient denies SI and reports no plan or intent towards hurting anyone, explaining he made a passive statement. SW contacted MD Souza to review assessment, in agreement with resources. SW reviewed recommendation with RN who reports she spoke with patient?s family and they feel counseling resources are needed due to alcohol use. SW provided and reviewed list of local counseling agencies assisting with AOD counseling. SW also discussed other services [facility] can offer such as peer support. Patient declined AA list and declined referrals but states he will review the information and contact an agency. SW also provided patient with information regarding [facility], patient receptive but declines referral. Patient states ?this is why I needed to be here, so I could talk to you about help?. Plan: counseling resources provided, ELISA resource list, [facility] information Latha MEDEIROS, ISADORA
[2022-12-16] MEDS: LORazepam 1 MG Tablet 2 MG PO (21:36)
[2022-12-16] MEDS: Ceftriaxone 1 GM/50 ML BAG IV (22:23)
[2022-12-17] VITALS (25 sets, daily range): BP systolic 101–155; BP diastolic 48–112; PULSE 65–131; RESP 13–24; TEMP 36.2–36.7; O2SAT 3–100; BMI 25.6
[2022-12-17] MEDS: Phenobarbital 32.4 MG Tablet PO (01:48)
[2022-12-17] MEDS: Gabapentin 300 MG Capsule PO ×2 (01:48→22:13)
[2022-12-17] MEDS: LORazepam 1 MG Tablet 2 MG PO ×2 (01:48→22:12)
[2022-12-17] MEDS: LORazepam 2 MG/ML Syringe IV (03:08)
--- NOTE | 2022-12-17 03:15 | NURSING ---
Pt setting off bed exit alarm repeatedly, SARI wraps to Josue arms pulled off, pt found pulling at adhesive to PIVs, gown removed and SCDs unplugged. Pt disoriented,delusional: see CIWA scores. Pt repeated trying to get up from bed even w/staff at bedside trying to redirect him. Legs placed back in bed multiple times as pt is now perseverating I want to go home and lay on my couch, I don't need to be here. PRN Ativan given and new bag of Precedex given.
[2022-12-17] MEDS: TITRATION PARAMETER CHANGE 1 EACH IV (04:27)
[2022-12-17 04:41] LABS: Absolute Neutrophil Count 1.8 X10^3/uL (2.0-7.7); Basophil# 0.02 X10^3/uL; Basophil% 0.7 % (0-1); Differential Indicated SCAN CRITERIA MET; Eosinophil# 0.08 X10^3/uL; Eosinophils% 2.9 % (0-5); Hematocrit 21.7 % (40-54); Lymphocyte % 14.4 % (19-41); Mean Corp Hgb Conc 32.3 g/dL (32-36); Mean Corpuscular Hgb 31.4 pg (27.0-32.0); Mean Corpuscular Volume 97.3 fL (80-94); Mean Platelet Vol. 9.3 fl (6.2-12.0); Monocyte% 14.4 % (0-10); NRBC Flagged by Analyzer 0 % (0-5); Neutrophil # 1.82 X10^3/uL (2.7-7.7); Neutrophil % 65.4 % (47-70); POSITIVE DIFFERENTIAL YES; Platelet Count 210 K/mm3 (150-450); RBC Distribution Width CV 14.9 % (11.6-14.6); RBC Distribution Width SD 52.2 fl (35.1-43.9); Red Blood Count 2.23 M/mm3 (4.6-6.2); White Blood Count 2.8 K/mm3 (4.4-11.0)
[2022-12-17 04:48] LABS: Anion Gap 7 (5-15); BUN 7 mg/dL (7-18); BUN/Creat Ratio 9.2 RATIO (10-20); Calcium,Total 6.6 mg/dL (8.5-10.1); Chloride 109 mmol/L (98-107); Creatinine, Serum 0.76 mg/dL (0.70-1.30); EST Glomerular Filtration Rate 108 mL/min (>60); Est Glom Filt Rate - Afr Amer 131 mL/min (>60); Estimated Creatinine Clearance 75.03 ml/min; Glucose 97 mg/dL (74-106); Potassium 3.4 mmol/L (3.5-5.1); Sodium Level 140 mmol/L (136-145)
[2022-12-17] MEDS: 0.9% Normal Saline 1,000 ML 100 ML IV ×2 (05:34→15:46)
[2022-12-17] MEDS: Metoclopramide 10 MG/2 ML Vial 5 MG IV ×3 (06:11→17:11)
[2022-12-17 06:25] LABS: Anisocytosis 1+; Macrocytosis 1+
--- NOTE | 2022-12-17 07:32 | PN.HOSP_ITS ---
Reason for Visit Reason for Visit: Diagnoses Acute posthemorrhagic anemia (12/12/22) Hypo-osmolality and hyponatremia (12/12/22) Acidosis, unspecified (12/12/22) Alcohol use, unspecified with withdrawal, unspecified (12/12/22) Gastrointestinal hemorrhage, unspecified (12/12/22) Pressure ulcer of unspecified site, stage 2 (12/12/22) Other nonspecific abnormal finding of lung field (12/12/22) Subjective Subjective Still continues to be inappropriate with staff. Dexmedetomidine gtt restarted last night. Objective Data Objective Data Vital Signs: Vital Signs Temp Pulse Resp BP Pulse Ox O2 Del Method O2 Flow Rate 36.5 C L 69 14 101/55 L 3 Nasal Cannula 3 12/17/22 06:00 12/17/22 07:00 12/17/22 07:00 12/17/22 07:00 12/17/22 07:00 12/17/22 07:00 12/17/22 06:00 Oxygen Flow Rate (L/min) 3 Oxygen Delivery Method Nasal Cannula Weight: 81.3 kg Body Mass Index (BMI) 25.6 Intake & Output: Intake and Output for Last 24 Hours 12/15/22 12/16/22 12/17/22 23:59 23:59 23:59 Intake Total 3695.32 / 3701.32 3472.97 / 3522.97 727.90 / 727.90 Output Total 3950 / 3950 3750 / 4650 1700 / 1700 Balance -254.68 / -248.68 -277.03 / -1127.03 -972.10 / -972.10 Lab / Micro Data Result Diagrams: 12/17/22 08:10 12/17/22 04:20 Labs: Laboratory Results - last 24 hr 12/16/22 03:30: Free T4 1.03, Free T3 pg/dL 0.9 L 12/17/22 04:20: WBC 2.8 L, RBC 2.23 L, Hgb 7.0 L, Hct 21.7 L, MCV 97.3 H, MCH 31.4, MCHC 32.3, RDW Std Deviation 52.2 H, RDW Coeff of Jesus 14.9 H, Plt Count 210, MPV 9.3, Immature Gran % (Auto) 2.200 H, Neut % (Auto) 65.4, Lymph % (Auto) 14.4 L, Garvin % (Auto) 14.4 H, Eos % (Auto) 2.9, Baso % (Auto) 0.7, Absolute Neuts (auto) 1.8 L, Absolute Lymphs (auto) 0.40 L, Nucleated RBC % 0, Diff Path Review May foll, Anisocytosis 1+, Macrocytosis 1+ 12/17/22 04:20: Sodium 140, Potassium 3.4 L, Chloride 109 H, Carbon Dioxide 24.0, Anion Gap 7, BUN 7, Creatinine 0.76, Estim Creat Clear Calc 75.03, Est GFR (MDRD) Af Amer 131, Est GFR (MDRD) Non-Af 108, BUN/Creatinine Ratio 9.2 L, Glucose 97, Calcium 6.6 L Micro: Microbiology 12/12/22 22:14 Mucosa - Nasopharyngeal Respiratory Panel (PCR) - Final 12/12/22 20:35 Stool Stool Occult Blood (VENKATA) - Final Occult Blood Positive Physical Exam Const no apparent distress Constitutional Narrative: groggy. asked me if the nurse threw away her stethoscope (she threw away her gloves) HEENT head/scalp atraumatic and moist oral mucous membranes Eyes PERRL Resp normal respiratory effort, no retractions and no use of accessory muscles Cardio regular rate, regular rhythm, S1 normal heart sound and S2 normal heart sound GI normal to inspection, nondistended, normoactive bowel sounds and soft to palpati on Assessment & Plan Assessment/Plan (1) GI bleed: PLAN: Acute GI Bleed w/ resultant Acute Blood Loss Anemia complicated by underlying alcohol abuse with possibly Syncopal event associated with his GI bleed presentation/acute blood loss:? will admit to medical surgical floor on telemetry to be cautious given mild tachycardia although vital signs otherwise stable, will continue to obtain serial H&H's, will continue T and C with 2 u P RBC administration per ED physician initiation, will maintain on IV Protonix drip, initiate octreotide given alcohol abuse history and continue IV Rocephin therapy, EGD on 12/14: esophageal mucosal changes suspicious for David's, chronic gastritis (biopsied), duodenitis, one oozing duodenal ulcer w visible vessel injected continue sucralfate 12/15 DC'd octreotide gtt 12/16: it has been over 72h w pantoprazole gtt, will change to IV boluses. (2) Acute blood loss anemia: PLAN: Suspect likely acute on chronic anemia stable Transfused 2 units PRBCs. 12/17: Hg 7. Recheck 7.3. Monitor. (3) Alcohol withdrawal: PLAN: Impending Acute EtOH Withdrawal: Patient with heavy alcohol abuse likely related to underlying untreated anxiety and depression, will cautiously initiate on phenobarbital taper, as needed gabapentin, Catapres, Bentyl, Vistaril, IV flu ids, IV antiemetics, Tylenol as needed for pain.? Will defer any NSAID therapy given acute presentation number 1.? Will consult Case management for assistance for transition to next level of rehabilitation care. Mag, phos pending. Maintain on CIWA protocol concurrently. 12/14: pt became more confused. He called his neighbor to pick him up. When she arrived, she verified that he is confused. Patient was started on dexmedetomidine gtt. 12/15: somnolent w dexmedetomidine gtt 12/16: still on dexmedetomidine gtt. Though overall improved. Met with social work. He declined AA and other outpt resources. (4) Lactic acidosis: PLAN: Present on admission Resolved w IVF Admission lactic acid 3.5 (5) Hyponatremia: PLAN: Hyponatremia, suspected chronic component, concurrent hypovolemic component as well: Patient with admission sodium 132, chloride 94, suspected also hypovolemic component given presentation however patient does have chronic high beer consumption therefore certainly could be beer potomania contribution, will continue to hydrate as noted, repeat CMP in AM. TSH 0.35, free T4 1.04, free T3 low. Given normal free T4, would not treat. (6) Mass of left lung: PLAN: Incidental small pleural-based patchy opacity left pulmonary apex Respiratory panel negative. recommend pulmonary outpt follow up. (7) Stage II pressure ulcer: PLAN: left elbow. no current concern for cellulitis at this time. (8) Homicidal ideation: PLAN: 12/16: told nursing that he was going to get his gun and shoot the boyfriend of his ex- and her too if she got in the way. Nursing later clarified this with him and he dismissed it at [facility], but said he would point his gun at his ex-'s boyfriend. Mental health assessment by social work and denied intent or plan and not meeting criteria for psych placement PLAN: Plan Chronic conditions: * Anxiety and depression: Patient does admit to underlying anxiety and depression, not on any medication, case management consulted for substance abuse as this is likely contributing greatly to his continued alcohol abuse history. * Chew Tobacco Abuse: Encouraged cessation, inpatient consultation per RT, NR if desired. 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 DVT prophylaxis: SCDs given acute GI bleed presentation as noted. CODE status: Full code. Charges/Coding Visit Charges Inpatient E&M: 10269 Subs Hosp L2
[2022-12-17 08:27] LABS: Absolute Lymphocyte Count 0.43 X10^3/uL (0.83-4.51); Absolute Neutrophil Count 1.7 X10^3/uL (2.0-7.7); Basophil# 0.02 X10^3/uL; Basophil% 0.8 % (0-1); Eosinophils% 3.8 % (0-5); Hematocrit 22.6 % (40-54); Hemoglobin 7.3 g/dL (13.0-16.5); Lymphocyte # 0.43 X10^3/ul (0.83-4.51); Lymphocyte % 16.2 % (19-41); Mean Corp Hgb Conc 32.3 g/dL (32-36); Mean Corpuscular Hgb 31.2 pg (27.0-32.0); Mean Corpuscular Volume 96.6 fL (80-94); Mean Platelet Vol. 9.2 fl (6.2-12.0); Monocyte# 0.36 X10^3/uL; Monocyte% 13.6 % (0-10); NRBC Flagged by Analyzer 0 % (0-5); Neutrophil # 1.69 X10^3/uL (2.7-7.7); Neutrophil % 63.7 % (47-70); POSITIVE DIFFERENTIAL YES; Platelet Count 213 K/mm3 (150-450); RBC Distribution Width SD 52.3 fl (35.1-43.9); Red Blood Count 2.34 M/mm3 (4.6-6.2); White Blood Count 2.7 K/mm3 (4.4-11.0)
[2022-12-17 08:29] LABS: Differential Indicated SCAN CRITERIA MET
[2022-12-17 09:01] LABS: Platelet Estimate ADEQUATE (ADEQ)
[2022-12-17] MEDS: Folic Acid 1 MG Tablet PO (09:44)
[2022-12-17] MEDS: Thiamine Hydrochloride 100 MG Tablet PO (09:45)
[2022-12-17] MEDS: Sucralfate 1 GM Tablet PO ×2 (12:13→15:47)
[2022-12-17 12:41] LABS: Anion Gap 7 (5-15); BUN 6 mg/dL (7-18); BUN/Creat Ratio 7.2 RATIO (10-20); Calcium,Total 7.5 mg/dL (8.5-10.1); Chloride 105 mmol/L (98-107); Creatinine, Serum 0.84 mg/dL (0.70-1.30); EST Glomerular Filtration Rate 97 mL/min (>60); Est Glom Filt Rate - Afr Amer 118 mL/min (>60); Estimated Creatinine Clearance 89.32 ml/min; Glucose 84 mg/dL (74-106); Magnesium 2.1 mg/dL (1.6-2.6); Potassium 3.9 mmol/L (3.5-5.1); Sodium Level 137 mmol/L (136-145)
--- NOTE | 2022-12-17 21:17 | NURSING ---
Pt sitting on edge of bed w/rt leg dangling; on the phone for HS prayers w/a friend laboratory specialist. After phone call complete, pt requests to stand at bedside to stretch like an X. Pt impulsive does not wait for staff to place dining car hop socks on and becomes agitated when requested to wait. I just want to stand, I don't want to go anywhere. Pt reminded that he fell back in to the bed last night d/t weakness and incoordination, pt rebutted I just leaned back quickly, I didn't fall. Pt informed that all was the same, still considered a fall in to the bed. Socks placed on pt and pt assisted to stand. Pt yells at staff Don't touch me! Pt having very apparent weakness and difficulty standing,needing staff to steady him. 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 Staff questioned pt's sexually inappropriate behavior toward staff if he was a driver salesman. Pt denied being inappropriate and this RN gave explicit examples of him grabbing, trying to kiss, asking to kiss/hug, asking staff to get in to the bed w/him but leave their clothes on. Pt hung his head and became silent, then stated I was teasing. Pt informed that this teasing wasn't appreciated and staff have a low tolerance for that behavior. Pt informed this RN that I won't talk to you anymore. Only to say hi and that's it.
[2022-12-17] MEDS: Acetaminophen 325 MG Tablet 650 MG PO (22:13)
[2022-12-17] MEDS: traZODone 100 MG Tablet PO (22:22)
[2022-12-17] MEDS: Ceftriaxone 1 GM/50 ML BAG IV (22:30)
--- NOTE | 2022-12-17 23:57 | NURSING ---
Unable to medicate again, will cont to monitor.
[2022-12-18] VITALS (16 sets, daily range): BP systolic 98–153; BP diastolic 60–91; PULSE 65–130; RESP 10–24; TEMP 36–37.2; O2SAT 94–100; BMI 25.9
[2022-12-18] MEDS: Metoclopramide 10 MG/2 ML Vial 5 MG IV ×5 (00:11→23:07)
[2022-12-18] MEDS: LORazepam 2 MG/ML Syringe IV ×2 (00:12→01:51)
--- NOTE | 2022-12-18 00:15 | NURSING ---
Pt attempting to get out of bed, see CIWA; pt asking for one of those little bottles of wine, aren't you guys Orthodox here? What do you do for communion? Pt informed that alcoholic beverages are not available at this time. PRN Ativan given as per orders.
[2022-12-18] MEDS: 0.9% Normal Saline 1,000 ML 100 ML IV (01:54)
[2022-12-18 04:33] LABS: Anion Gap 4 (5-15); BUN 10 mg/dL (7-18); BUN/Creat Ratio 9.4 RATIO (10-20); Calcium,Total 7.1 mg/dL (8.5-10.1); Chloride 108 mmol/L (98-107); Creatinine, Serum 1.06 mg/dL (0.70-1.30); EST Glomerular Filtration Rate 74 mL/min (>60); Est Glom Filt Rate - Afr Amer 90 mL/min (>60); Estimated Creatinine Clearance 70.78 ml/min; Glucose 127 mg/dL (74-106); Potassium 3.8 mmol/L (3.5-5.1); Sodium Level 139 mmol/L (136-145)
[2022-12-18 04:36] LABS: Hematocrit 22.8 % (40-54); Hemoglobin 7.3 g/dL (13.0-16.5); Mean Corpuscular Hgb 31.3 pg (27.0-32.0); Mean Corpuscular Volume 97.9 fL (80-94); Mean Platelet Vol. 9.3 fl (6.2-12.0); Platelet Count 226 K/mm3 (150-450); RBC Distribution Width CV 15.1 % (11.6-14.6); RBC Distribution Width SD 53.5 fl (35.1-43.9); Red Blood Count 2.33 M/mm3 (4.6-6.2); White Blood Count 3.1 K/mm3 (4.4-11.0)
[2022-12-18] MEDS: 0.9% Saline Lock 10 ML Syringe IV ×2 (05:38→16:57)
--- NOTE | 2022-12-18 07:00 | PCM.PN.HOSP ---
Reason for Visit Reason for Visit: Diagnoses Acute posthemorrhagic anemia (12/12/22) Hypo-osmolality and hyponatremia (12/12/22) Acidosis, unspecified (12/12/22) Alcohol use, unspecified with withdrawal, unspecified (12/12/22) Gastrointestinal hemorrhage, unspecified (12/12/22) Pressure ulcer of unspecified site, stage 2 (12/12/22) Homicidal ideations (12/12/22) Other nonspecific abnormal finding of lung field (12/12/22) Subjective Subjective Has been more cooperative. Dexmedetomidine has been turned off since 12/17. Objective Data Objective Data Vital Signs: Vital Signs Temp Pulse Resp BP Pulse Ox O2 Del Method O2 Flow Rate 36.9 C 79 10 L 100/61 100 Nasal Cannula 3 12/18/22 04:00 12/18/22 06:00 12/18/22 06:00 12/18/22 06:00 12/18/22 06:00 12/18/22 06:00 12/18/22 06:00 Oxygen Flow Rate (L/min) 3 Oxygen Delivery Method Nasal Cannula Weight: 82 kg Body Mass Index (BMI) 25.9 Intake & Output: Intake and Output for Last 24 Hours 12/16/22 12/17/22 12/18/22 23:59 23:59 23:59 Intake Total 3472.97 / 3522.97 3284.81 / 3284.81 290 / 290 Output Total 3750 / 4650 3200 / 3200 250 / 250 Balance -277.03 / -1127.03 84.81 / 84.81 40 / 40 Lab / Micro Data Result Diagrams: 12/18/22 03:55 12/18/22 03:55 Labs: Laboratory Results - last 24 hr 12/17/22 08:10: WBC 2.7 L, RBC 2.34 L, Hgb 7.3 L, Hct 22.6 L, MCV 96.6 H, MCH 31.2, MCHC 32.3, RDW Std Deviation 52.3 H, RDW Coeff of Jesus 15.0 H, Plt Count 213, MPV 9.2, Immature Gran % (Auto) 1.900 H, Neut % (Auto) 63.7, Lymph % (Auto) 16.2 L, Isabela % (Auto) 13.6 H, Eos % (Auto) 3.8, Baso % (Auto) 0.8, Absolute Neuts (auto) 1.7 L, Absolute Lymphs (auto) 0.43 L, Nucleated RBC % 0, Diff Path Review November foll, Platelet Estimate ADEQUATE 12/17/22 12:04: Sodium 137, Potassium 3.9, Chloride 105, Carbon Dioxide 25.0, Anion Gap 7, BUN 6 L, Creatinine 0.84, Estim Creat Clear Calc 89.32, Est GFR (MDRD) Af Amer 118, Est GFR (MDRD) Non-Af 97, BUN/Creatinine Ratio 7.2 L, Glucose 84, Calcium 7.5 L, Magnesium 2.1 12/18/22 03:55: WBC 3.1 L, RBC 2.33 L, Hgb 7.3 L, Hct 22.8 L, MCV 97.9 H, MCH 31.3, MCHC 32.0, RDW Std Deviation 53.5 H, RDW Coeff of Jesus 15.1 H, Plt Count 226, MPV 9.3 12/18/22 03:55: Sodium 139, Potassium 3.8, Chloride 108 H, Carbon Dioxide 27.0, Anion Gap 4 L, BUN 10, Creatinine 1.06, Estim Creat Clear Calc 70.78, Est GFR (MDRD) Af Amer 90, Est GFR (MDRD) Non-Af 74, BUN/Creatinine Ratio 9.4 L, Glucose 127 H, Calcium 7.1 L Micro: Microbiology 12/12/22 22:14 Mucosa - Nasopharyngeal Respiratory Panel (PCR) - Final 12/12/22 20:35 Stool Stool Occult Blood (VENKATA) - Final Occult Blood Positive Physical Exam Const no apparent distress Constitutional Narrative: confused. disheveled. HEENT head/scalp atraumatic Resp normal respiratory effort, no retractions, no use of accessory muscles and clear to auscultation bilaterally Cardio regular rate, regular rhythm, S1 normal heart sound and S2 normal heart sound GI normal to inspection, nondistended, normoactive bowel sounds, soft to palpation and non-tender Extremity Extremity Narrative: indurated area over left elbow. ecchymosis right elbow. Assessment & Plan Assessment/Plan (1) GI bleed: PLAN: Acute GI Bleed w/ resultant Acute Blood Loss Anemia complicated by underlying alcohol abuse with possibly Syncopal event associated with his GI bleed presentation/acute blood loss:? will admit to medical surgical floor on telemetry to be cautious given mild tachycardia although vital signs otherwise stable, will continue to obtain serial H&H's, will continue T and C with 2 u PRBC administration per ED physician initiation, will maintain on IV Protonix drip, initiate octreotide given alcohol abuse history and continue IV Rocephin therapy, EGD on 12/14: esophageal mucosal changes suspicious for Dvaid's, chronic gastritis (biopsied), duodenitis, one oozing duodenal ulcer w visible vessel injected continue sucralfate 12/15 DC'd octreotide gtt 12/16: it has been over 72h w pantoprazole gtt, will change to IV boluses. (2) Acute blood loss anemia: PLAN: Suspect likely acute on chronic anemia stable Transfused 2 units PRBCs. 12/17: Hg 7. Recheck 7.3. (3) Alcohol withdrawal: PLAN: Impending Acute EtOH Withdrawal: Patient with heavy alcohol abuse likely related to underlying untreated anxiety and depression, will cautiously initiate on phenobarbital taper, as needed gabapentin, Catapres, Bentyl, Vistaril, IV fluids, IV antiemetics, Tylenol as needed for pain.? Will defer any NSAID therapy given acute presentation number 1.? Will consult Case management for assistance for transition to next level of rehabilitation care. Mag, phos pending. Maintain on CIWA protocol concurrently. 12/14: pt became more confused. He called his neighbor to pick him up. When she arrived, she verified that he is confused. Patient was started on dexmedetomidine gtt. 12/15: somnolent w dexmedetomidine gtt 12/16: still on dexmedetomidine gtt. Though overall improved. Met with social work. He declined AA and other outpt resources. 12/18: dexmedetomidine gtt turned off since 12/17. (4) Lactic acidosis: PLAN: Present on admission Resolved w IVF Admission lactic acid 3.5 (5) Hyponatremia: PLAN: Hyponatremia, suspected chronic component, concurrent hypovolemic component as well: Patient with admission sodium 132, chloride 94, suspected also hypovolemic component given presentation however patient does have chronic high beer consumption therefore certainly could be beer potomania contribution, will continue to hydrate as noted, repeat CMP in AM. TSH 0.35, free T4 1.04, free T3 low. Given normal free T4, would not treat. (6) Mass of left lung: PLAN: Incidental small pleural-based patchy opacity left pulmonary apex Respiratory panel negative. recommend pulmonary outpt follow up. (7) Homicidal ideation: PLAN: 12/16: told nursing that he was going to get his gun and shoot the boyfriend of his ex- and her too if she got in the way. Nursing later clarified this with him and he dismissed it at [facility], but said he would point his gun at his ex-'s boyfriend. Mental health assessment by social work and denied intent or plan and not meeting criteria for psych placement (8) Left elbow contusion: PLAN: mass lke area over left elbow check CT to better visualize. (9) Debility: PLAN: PT OT evaluate and treat PLAN: Plan Chronic conditions: Anxiety and depression: Patient does admit to underlying anxiety and depression, not on any medication, case management consulted for substance abuse as this is likely contributing greatly to his continued alcohol abuse history. Chew Tobacco Abuse: Encouraged cessation, inpatient consultation per RT, NR if desired. History of tonsillar cancer: Patient notes ongoing evaluations q 3 months, reports being in remission, status postresection and prior chemotherapy. DVT prophylaxis: SCDs given acute GI bleed presentation as noted. CODE status: Full code. Transfer to [facility] Charges/Coding Visit Charges Inpatient E&M: 92474 Subs Hosp L2
[2022-12-18] MEDS: Folic Acid 1 MG Tablet PO (09:32)
[2022-12-18] MEDS: Thiamine Hydrochloride 100 MG Tablet PO (09:32)
[2022-12-18] MEDS: Gabapentin 300 MG Capsule PO ×2 (09:39→20:53)
--- NOTE | 2022-12-18 09:45 | CASEMGMT ---
Social Work SW did attempt to speak w/pt this morning. Pt is resting at present. PT/OT pending. SW to follow up w/pt regarding SNF placement if needed. ALLAN Joseph
[2022-12-18 09:47] LABS: Pathologist Review Reviewed
[2022-12-18 09:48] LABS: Pathologist Review Reviewed
[2022-12-18 09:48] LABS: Pathologist Review Reviewed
[2022-12-18] MEDS: Sucralfate 1 GM Tablet PO ×2 (10:37→16:00)
[2022-12-18] MEDS: LORazepam 1 MG Tablet 2 MG PO (10:38)
--- NOTE | 2022-12-18 12:10 | RAD_ITS ---
INDICATION: left elbow mass EXAMINATION/TECHNIQUE: X-RAY - LEFT XR Elbow Min 3 Views COMPARISON: None. FINDINGS: Nonspecific soft tissue swelling posterior to the distal humerus. No acute fracture or subluxation. Joint spaces are intact. No significant joint effusion. RAD/Elbow min 3 Views IMPRESSION: Nonspecific soft tissue swelling posterior to the distal humerus. Further assessment with ultrasound is recommended if clinical concerns for mass. Electronically Signed: Samuel Melvin MD at 14:10 EDT ,
--- NOTE | 2022-12-18 14:51 | US_ITS ---
STUDY: SUPERFICIAL ULTRASOUND - LEFT ARM REASON FOR EXAM: Male, 67 years old with left elbow mass. TECHNIQUE: A superficial ultrasound was performed with real-time and static boo-scale imaging. COMPARISON: None. FINDINGS: Area of interest is dorsum of distal left upper arm to below level of elbow. There is heterogeneous echotexture avascular collection containing echogenic debris and septations within this region measuring 8.7 x 1.7 x 4.8 cm. US/Ext Non Vasc Limited/Soft Tiss IMPRESSION: Complex collection within left upper arm suggesting abscess or subacute/chronic hematoma. Electronically Signed: Kavin Perea MD at 23:35 EDT ,
[2022-12-18] MEDS: hydrOXYzine PAM 25 MG Capsule 50 MG PO (16:57)
[2022-12-18] MEDS: traZODone 100 MG Tablet PO (20:53)
[2022-12-19 02:00] VITALS: BP 154/89; PULSE 93; RESP 18; TEMP 37.1; O2SAT 99
[2022-12-19] MEDS: hydrOXYzine PAM 25 MG Capsule 50 MG PO ×2 (02:15→23:34)
[2022-12-19 06:00] VITALS: BMI 25.8
[2022-12-19] MEDS: Metoclopramide 10 MG/2 ML Vial 5 MG IV ×4 (06:19→23:29)
[2022-12-19] MEDS: Sucralfate 1 GM Tablet PO ×3 (06:19→15:59)
[2022-12-19 07:09] LABS: Absolute Lymphocyte Count 0.48 X10^3/uL (0.83-4.51); Absolute Neutrophil Count 2.6 X10^3/uL (2.0-7.7); Basophil# 0.04 X10^3/uL; Basophil% 1.1 % (0-1); Eosinophil# 0.09 X10^3/uL; Eosinophils% 2.4 % (0-5); Hematocrit 27.7 % (40-54); Hemoglobin 8.7 g/dL (13.0-16.5); Lymphocyte # 0.48 X10^3/ul (0.83-4.51); Lymphocyte % 12.8 % (19-41); Mean Corp Hgb Conc 31.4 g/dL (32-36); Mean Corpuscular Hgb 30.6 pg (27.0-32.0); Mean Corpuscular Volume 97.5 fL (80-94); Mean Platelet Vol. 9.3 fl (6.2-12.0); Monocyte# 0.51 X10^3/uL; Monocyte% 13.6 % (0-10); NRBC Flagged by Analyzer 0 % (0-5); Neutrophil % 69.3 % (47-70); POSITIVE DIFFERENTIAL YES; Platelet Count 281 K/mm3 (150-450); RBC Distribution Width CV 14.8 % (11.6-14.6); RBC Distribution Width SD 52.6 fl (35.1-43.9); Red Blood Count 2.84 M/mm3 (4.6-6.2); White Blood Count 3.8 K/mm3 (4.4-11.0)
[2022-12-19 07:12] LABS: Differential Indicated SCAN CRITERIA MET
--- NOTE | 2022-12-19 07:20 | PN.HOSP_ITS ---
Reason for Visit Reason for Visit: Diagnoses Acute posthemorrhagic anemia (12/12/22) Hypo-osmolality and hyponatremia (12/12/22) Acidosis, unspecified (12/12/22) Alcohol use, unspecified with withdrawal, unspecified (12/12/22) Gastrointestinal hemorrhage, unspecified (12/12/22) Pressure ulcer of unspecified site, stage 2 (12/12/22) Homicidal ideations (12/12/22) Other malaise (12/12/22) Other nonspecific abnormal finding of lung field (12/12/22) Contusion of left elbow, initial encounter (12/12/22) Subjective Subjective Feel on his knees yesterday. Asks when he is going home. Objective Data Objective Data Vital Signs: Vital Signs Temp Pulse Resp BP Pulse Ox O2 Del Method O2 Flow Rate 37.1 C 93 18 154/89 H 99 Room Air 3 12/19/22 02:00 12/19/22 02:00 12/19/22 02:00 12/19/22 02:00 12/19/22 02:00 12/19/22 02:22 12/18/22 07:30 Oxygen Flow Rate (L/min) 3 Oxygen Delivery Method Room Air Weight: 81.8 kg Body Mass Index (BMI) 25.8 Intake & Output: Intake and Output for Last 24 Hours 12/17/22 12/18/22 12/19/22 23:59 23:59 23:59 Intake Total 3284.81 / 3284.81 1760 / 2435 1135 / 1135 Output Total 3200 / 3200 1250 / 2150 1500 / 1500 Balance 84.81 / 84.81 510 / 285 -365 / -365 Lab / Micro Data Result Diagrams: 12/19/22 06:49 12/19/22 06:49 Labs: Laboratory Results - last 24 hr 12/12/22 19:45: Crossmatch See Detail 12/16/22 03:30: Diff Path Review Reviewed 12/17/22 04:20: Diff Path Review Reviewed 12/17/22 08:10: Diff Path Review Reviewed 12/19/22 06:49: WBC 3.8 L, RBC 2.84 L, Hgb 8.7 L, Hct 27.7 L, MCV 97.5 H, MCH 30.6, MCHC 31.4 L, RDW Std Deviation 52.6 H, RDW Coeff of Jesus 14.8 H, Plt Count 281, MPV 9.3, Immature Gran % (Auto) 0.800, Neut % (Auto) 69.3, Lymph % (Auto) 12.8 L, [place] % (Auto) 13.6 H, Eos % (Auto) 2.4, Baso % (Auto) 1.1 H, Absolute Neuts (auto) 2.6, Absolute Lymphs (auto) 0.48 L, Nucleated RBC % 0 Micro: Microbiology 12/12/22 22:14 Mucosa - Nasopharyngeal Respiratory Panel (PCR) - Final 12/12/22 20:35 Stool Stool Occult Blood (VENKATA) - Final Occult Blood Positive Radiography Diagnostic Testing: Radiology Impression Elbow X-Ray 12/18/22 12:10 IMPRESSION: Nonspecific soft tissue swelling posterior to the distal humerus. Further assessment with ultrasound is recommended if clinical concerns for mass. Electronically Signed: Samuel Melvin MD at 14:10 EDT , Soft Tissue Ultrasound 12/18/22 14:51 IMPRESSION: Complex collection within left upper arm suggesting abscess or subacute/chronic hematoma. Electronically Signed: Kavin Perea MD at 23:35 EDT , Physical Exam Const alert and no apparent distress Orientation / Consciousness: confused HEENT head/scalp atraumatic and moist oral mucous membranes Resp normal respiratory effort, no retractions, no use of accessory muscles and clear to auscultation bilaterally Cardio regular rate, regular rhythm, S1 normal heart sound and S2 normal heart sound GI normal to inspection, nondistended, normoactive bowel sounds, soft to palpation, non-tender and non-distended Extremity normal to inspection Extremity Narrative: boggy large area on left elbow. Assessment & Plan Assessment/Plan (1) GI bleed: PLAN: Acute GI Bleed w/ resultant Acute Blood Loss Anemia complicated by underly ing alcohol abuse with possibly Syncopal event associated with his GI bleed presentation/acute blood loss:? will admit to medical surgical floor on telemetry to be cautious given mild tachycardia although vital signs otherwise stable, will continue to obtain serial H&H's, will continue T and C with 2 u PRBC administration per ED physician initiation, will maintain on IV Protonix drip, initiate octreotide given alcohol abuse history and continue IV Rocephin therapy, EGD on 12/14: esophageal mucosal changes suspicious for David's, chronic gastritis (biopsied), duodenitis, one oozing duodenal ulcer w visible vessel injected continue sucralfate 12/15 DC'd octreotide gtt 12/16: it has been over 72h w pantoprazole gtt, will change to IV boluses. (2) Acute blood loss anemia: PLAN: Suspect likely acute on chronic anemia stable Transfused 2 units PRBCs. 12/17: Hg 7. Recheck 7.3. (3) Alcohol withdrawal: PLAN: Completed phenobarbital taper Developed delirium tremens and was on a dexmedetomidine gtt 12/14: pt became more confused. He called his neighbor to pick him up. When she arrived, she verified that he is confused. Patient was started on dex medetomidine gtt. 12/15: somnolent w dexmedetomidine gtt 12/16: still on dexmedetomidine gtt. Though overall improved. Met with social work. He declined AA and other outpt resources. 12/18: dexmedetomidine gtt turned off since 12/17. (4) Lactic acidosis: PLAN: Present on admission Resolved w IVF Admission lactic acid 3.5 (5) Hyponatremia: PLAN: Hyponatremia, suspected chronic component, concurrent hypovolemic component as well: Patient with admission sodium 132, chloride 94, suspected also hypovolemic component given presentation however patient does have chronic high beer consumption therefore certainly could be beer potomania contribution, will continue to hydrate as noted, repeat CMP in AM. TSH 0.35, free T4 1.04, free T3 low. Given normal free T4, would not treat. (6) Mass of left lung: PLAN: Incidental small pleural-based patchy opacity left pulmonary apex Respiratory panel negative. recommend pulmonary outpt follow up. (7) Homicidal ideation: PLAN: 12/16: told nursing that he was going to get his gun and shoot the boyfriend of his ex- and her too if she got in the way. Nursing later clarified this with him and he dismissed it at [employer], but said he would point his gun at his ex-'s boyfriend. Mental health assessment by social work and denied intent or plan and not meeting criteria for psych placement (8) Left elbow contusion: PLAN: mass lke area over left elbow check CT to better visualize. (9) Debility: PLAN: PT OT evaluate and treat only ambulated 3 feet today with therapy not safe to go home. (10) Traumatic hematoma of left elbow: PLAN: doubt abscess. supportive mgmt attempt to elevate LUE PLAN: Plan Chronic conditions: * Anxiety and depression: Patient does admit to underlying anxiety and depressi on, not on any medication, case management consulted for substance abuse as this is likely contributing greatly to his continued alcohol abuse history. * Chew Tobacco Abuse: Encouraged cessation, inpatient consultation per RT, NR if desired. 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 DVT prophylaxis: SCDs given acute GI bleed presentation as noted. CODE status: Full code. Transfer to [facility] Charges/Coding Visit Charges Inpatient E&M: 17329 Subs Hosp L2
[2022-12-19 07:25] LABS: Anisocytosis 1+
[2022-12-19 07:26] VITALS: O2SAT 96
[2022-12-19 07:47] LABS: Anion Gap 7 (5-15); BUN 6 mg/dL (7-18); BUN/Creat Ratio 7.6 RATIO (10-20); Chloride 103 mmol/L (98-107); Creatinine, Serum 0.79 mg/dL (0.70-1.30); EST Glomerular Filtration Rate 104 mL/min (>60); Est Glom Filt Rate - Afr Amer 125 mL/min (>60); Estimated Creatinine Clearance 75.03 ml/min; Glucose 91 mg/dL (74-106); Potassium 3.6 mmol/L (3.5-5.1); Sodium Level 137 mmol/L (136-145)
[2022-12-19 08:07] VITALS: BP 153/88; PULSE 83; RESP 18; TEMP 36.5; O2SAT 100
[2022-12-19] MEDS: Folic Acid 1 MG Tablet PO (08:16)
[2022-12-19] MEDS: Thiamine Hydrochloride 100 MG Tablet PO (08:16)
--- NOTE | 2022-12-19 10:59 | CASEMGMT ---
Social Work Pt stating he does not have a living will or health care POA completed. Pt is and has 4 adult children. Son Messi Waldrop is contact acid plant operator. CAR Walter
--- NOTE | 2022-12-19 11:05 | CASEMGMT ---
Social Work This SHAYNA and CAR Monae met with pt to discuss discharge plan. SW introduced selves and role of SW at [facility]. Pt stating he is not thinking clearly and feels it is from the medication he has been given. Pt put head of bed up and able to converse more willingly. SW spoke with pt regarding poor functional movement with therapy and recommendations for SNF. Initially pt denying need for SNF but as conversation progressed pt becoming more agreeable. A list of SNF providers including quality and resource use data and consistent with the patient?s preferred geographic region, medical needs, and insurance network were provided from the [employer] Guide. SW reviewed list of options with pt. Pt with difficulty focusing on task of discussing SNF. Pt with inappropriate comments toward SW. SW redirecting pt with some effectiveness. Pt unable to choose facility at this time. Permission given for SW to call his son Messi Waldrop to discuss SNF option. Phone call to pt son and VM not set up. Second call placed to son with greens picker and bad connection and hang up. This SW went back to pt room. Pt has two visitors, Corporate Receptionist and . Pt asking SW to provide SNF list to Corporate Receptionist. SW provided information. Pt provided permission to discuss discharge plan with Corporate Receptionist present. SW also informed pt that son Dewayne could not be reached. Pt called son on speaker phone and gave phone to SW. SW spoke with pt son Messi Waldrop and got updated phone number (demographic sheet updated). Son states he plans to take pt to his house at time of discharge. SW explained that pt is very weak and will require 24 hour care including help with ambulating, toileting, bathing and dressing. Dewayne states his does not work and she can care for pt. SW again reiterated the amount of care pt needs and that son and his should discuss ability and willingness to care for pt. SW did explain SNF option vs home health. Pt son continues to lean toward taking pt home with home health. SW requested further consideration by family and SW will follow up later today to discuss discharge plans further. CAR Walter
[2022-12-19] MEDS: 0.9% Saline Lock 10 ML Syringe IV (11:46)
--- NOTE | 2022-12-19 14:21 | CASEMGMT ---
Social Work Follow up phone call placed to pt son Messi Buchanan November. SHAYNA again reviewed therapy notes with Dewayne and explained level of assistance pt would need if pt were to return home and that care team is recommending short term SNF stay prior to return home. Dewayne states he promised his dad he would not put him in a detention and therefore he will be taking him home. SHAYNA inquired about transportation and Dewayne states he will pick pt up at time of discharge. Physician updated and discharge tenatively planned for tomorrow. Dewayne made aware. SHAYNA spoke with Dewayne regarding home health and he is agreeable to this. SHAYNA met with pt and updated and he is agreeable with discharge plan. RNCALVIN updated. CAR Walter
--- NOTE | 2022-12-19 14:29 | CASEMGMT ---
Addendum entered by Lin Ritchie 12/19/22 15:21: TC to pt son Dewayne, he did receive the electronic list and plans to chose via the link. Provided RN CALVIN phone number should he want to call this RN CALVIN back. Original Note: MERLENE SIMPSON notified by SW that pt son Dewayne would like to take pt home to his home with C. A list of [facility] providers including quality and resource use data and consistent with the patient?s preferred geographic region, medical needs, and insurance network were provided via the [employer] Link to pt son at [phone]. Pt son address for visits is [address] [place] [address].
[2022-12-19 15:03] VITALS: BP 125/79; PULSE 98; RESP 18; TEMP 37; O2SAT 96
[2022-12-19 20:01] VITALS: BP 151/77; PULSE 97; RESP 16; TEMP 37.4; O2SAT 100
[2022-12-19] MEDS: Gabapentin 300 MG Capsule PO (20:19)
[2022-12-19] MEDS: traZODone 100 MG Tablet PO (23:34)
[2022-12-20] VITALS (14 sets, daily range): BP systolic 114–143; BP diastolic 60–79; PULSE 75–118; RESP 16–18; TEMP 36.6–37.4; O2SAT 97–100; BMI 25.4
[2022-12-20] MEDS: Sucralfate 1 GM Tablet PO ×3 (06:18→15:47)
[2022-12-20] MEDS: Metoclopramide 10 MG/2 ML Vial 5 MG IV (06:25)
--- NOTE | 2022-12-20 06:44 | PN.HOSP_ITS ---
Reason for Visit Reason for Visit: Diagnoses Acute posthemorrhagic anemia (12/12/22) Hypo-osmolality and hyponatremia (12/12/22) Acidosis, unspecified (12/12/22) Alcohol use, unspecified with withdrawal, unspecified (12/12/22) Gastrointestinal hemorrhage, unspecified (12/12/22) Pressure ulcer of unspecified site, stage 2 (12/12/22) Homicidal ideations (12/12/22) Other malaise (12/12/22) Other nonspecific abnormal finding of lung field (12/12/22) Contusion of left elbow, initial encounter (12/12/22) Subjective Subjective Patient reports feeling fair overall, spoke with his nurse who did report he had a black bowel movement, nothing bright red. Did have a decrease in hemoglobin so will get 2 units packed red blood cells. Denied nausea or abdominal pain Objective Data Objective Data Vital Signs: Vital Signs Temp Pulse Resp BP Pulse Ox O2 Del Method O2 Flow Rate 97.8 F 75 16 143/79 H 100 Room Air 3 12/20/22 06:08 12/20/22 06:08 12/20/22 06:08 12/20/22 06:08 12/20/22 06:08 12/20/22 06:11 12/18/22 07:30 Oxygen Flow Rate (L/min) 3 Oxygen Delivery Method Room Air Weight: 80.8 kg Body Mass Index (BMI) 25.4 Intake & Output: Intake and Output for Last 24 Hours 12/18/22 12/19/22 12/20/22 23:59 23:59 23:59 Intake Total 1760 / 2435 1355 / 1355 700 / 700 Output Total 1250 / 2150 2450 / 2450 2500 / 2500 Balance 510 / 285 -1095 / -1095 -1800 / -1800 Lab / Micro Data Result Diagrams: 12/20/22 05:32 12/20/22 05:32 Labs: Laboratory Results - last 24 hr 12/19/22 06:49: WBC 3.8 L, RBC 2.84 L, Hgb 8.7 L, Hct 27.7 L, MCV 97.5 H, MCH 30.6, MCHC 31.4 L, RDW Std Deviation 52.6 H, RDW Coeff of Jesus 14.8 H, Plt Count 281, MPV 9.3, Immature Gran % (Auto) 0.800, Neut % (Auto) 69.3, Lymph % (Auto) 12.8 L, [place] % (Auto) 13.6 H, Eos % (Auto) 2.4, Baso % (Auto) 1.1 H, Absolute Neuts (auto) 2.6, Absolute Lymphs (auto) 0.48 L, Nucleated RBC % 0, Differential Comment COMMENT, Diff Path Review May foll, Anisocytosis 1+ 12/19/22 06:49: Sodium 137, Potassium 3.6, Chloride 103, Carbon Dioxide 27.0, Anion Gap 7, BUN 6 L, Creatinine 0.79, Estim Creat Clear Calc 75.03, Est GFR (MDRD) Af Amer 125, Est GFR (MDRD) Non-Af 104, BUN/Creatinine Ratio 7.6 L, Glucose 91, Calcium 8.0 L Micro: Microbiology 12/12/22 22:14 Mucosa - Nasopharyngeal Respiratory Panel (PCR) - Final 12/12/22 20:35 Stool Stool Occult Blood (VEKNATA) - Final Occult Blood Positive Physical Exam Narrative General: Alert, oriented HEENT: Atraumatic, normocephalic Eyes: Anicteric, normal conjunctiva, extraocular movements grossly intact Neck: Supple Respiratory: Clear to auscultation bilaterally, normal respiratory effort Cardiovascular: Regular rate and rhythm GI: Soft, nontender, nondistended Extremities: No edema Musculoskeletal: Moving all extremities Neuro: No overt focal neurological deficits Skin: No rashes appreciated Psych: Hypersexual and inappropriate Assessment & Plan Assessment/Plan (1) GI bleed: (2) Acute blood loss anemia: (3) Alcohol withdrawal: (4) Hyponatremia: (5) Mass of left lung: (6) Left elbow contusion: (7) Debility: (8) Traumatic hematoma of left elbow: PLAN: Plan #Acute upper GI bleed secondary to oozing duodenal ulcer with resultant acute blood loss anemia -On presentation required 2 units packed red blood cells and IV PPI drip as well as octreotide given alcohol abuse -Additionally IV Rocephin due to alcohol use history -EGD 12/14 with esophageal mucosal changes suspicious for Mendez's, chronic gastritis (biopsied), duodenitis, one oozing duodenal ulcer w visible vessel injected -He subsequently had octreotide drip discontinued 12/15 and his PPI drip transition to IV boluses 12/16 -12/20: This a.m. had a hemoglobin of 6.2, 2 units packed red blood cells ordered. Discussed with GI, n.p.o. at midnight will likely need repeat scope. Recheck hemoglobin posttransfusion #Significant debility -Working with PT/OT, only ambulated 3 feet with therapy -Certainly not safe to go home alone -Family considering taking him home and that they may be able to assist with care #Alcohol withdrawal -Status post phenobarb taper, was on Precedex drip which has been off since 12/17 -Declined AA and other outpatient resources #Hyponatremia -Suspected to have chronic component on admission compounded with hypovolemia -Sodium 132 on admission -TSH 0.35, free T41.04, given normal free T4 will not treat at this time but will need repeat thyroid function test in outpatient #Left lung mass -Found incidentally on imaging as a small pleural-based patchy opacity in the left pulmonary apex -Recommend outpatient pulm follow-up #Psychiatric disturbance NOS -12/16: told nursing that he was going to get his gun and shoot the boyfriend of his ex- and her too if she got in the way. Nursing later clarified this with him and he dismissed it at [employer]-[employer], but said he would point his gun at his ex- 's boyfriend. Mental health assessment by social work and denied intent or plan and not meeting criteria for psych placement -12/20: Patient significantly hypersexual and inappropriate in his interactions which sounds to have spanned at this hospitalization, unclear baseline. CT on presentation with mild atrophy and periventricular white matter ischemic changes with no acute process, review of images does appear to have deep sulci. Could have early stages of dementia, possible that this is a personality component. We will get basic lab work-up to evaluate for other underlying etiology though sounds he has had fairly consistent behavior, do not think at this time he needs further imaging or LP but if any mental status changes or other concerns could c onsider further work-up and neuro consult #Left elbow contusion -Soft tissue US 12/18 Complex collection within left upper arm suggesting abscess or subacute/chronic hematoma- 8.7 x 1.7 x 4.8 cm -No left shift or other signs or symptoms suggestive of infection/abscess at this time. #Lactic acidosis present on admission?resolved #Chew Tobacco Abuse -Encouraged cessation, inpatient consultation per RT, NR if desired. #History of tonsillar cancer -Patient notes ongoing evaluations q 3 months, reports being in remission, status postresection and prior chemotherapy #DVT ppx: SCDs given acute GI bleed presentation as noted. Natalie Dailey MD Time spent in the patient's overall evaluation,decision-making process, review of diagnostic data, adjustment of management, discussion with other providers, nursing nursing and ancillary staff involved in patient's care documentation, 40 Minutes Charges/Coding Visit Charges Inpatient E&M: 66362 Subs Hosp L3
[2022-12-20 06:54] LABS: Absolute Lymphocyte Count 0.55 X10^3/uL (0.83-4.51); Absolute Neutrophil Count 1.1 X10^3/uL (2.0-7.7); Basophil# 0.03 X10^3/uL; Basophil% 1.4 % (0-1); Eosinophil# 0.07 X10^3/uL; Eosinophils% 3.4 % (0-5); Hematocrit 18.7 % (40-54); Hemoglobin 6.2 g/dL (13.0-16.5); Lymphocyte # 0.55 X10^3/ul (0.83-4.51); Lymphocyte % 26.4 % (19-41); Mean Corp Hgb Conc 33.2 g/dL (32-36); Mean Corpuscular Hgb 32.1 pg (27.0-32.0); Mean Corpuscular Volume 96.9 fL (80-94); Mean Platelet Vol. 9.5 fl (6.2-12.0); Monocyte# 0.36 X10^3/uL; Monocyte% 17.3 % (0-10); NRBC Flagged by Analyzer 0 % (0-5); Neutrophil # 1.06 X10^3/uL (2.7-7.7); POSITIVE DIFFERENTIAL YES; Platelet Count 221 K/mm3 (150-450); RBC Distribution Width CV 14.9 % (11.6-14.6); RBC Distribution Width SD 52.7 fl (35.1-43.9); Red Blood Count 1.93 M/mm3 (4.6-6.2); White Blood Count 2.1 K/mm3 (4.4-11.0)
[2022-12-20 07:00] LABS: Differential Indicated SCAN CRITERIA MET
[2022-12-20 07:25] LABS: Differential Comment SCANNED
[2022-12-20 07:32] LABS: Anion Gap 5 (5-15); BUN 15 mg/dL (7-18); BUN/Creat Ratio 19.7 RATIO (10-20); Calcium,Total 7.7 mg/dL (8.5-10.1); Chloride 106 mmol/L (98-107); Creatinine, Serum 0.76 mg/dL (0.70-1.30); EST Glomerular Filtration Rate 109 mL/min (>60); Est Glom Filt Rate - Afr Amer 132 mL/min (>60); Estimated Creatinine Clearance 75.03 ml/min; Glucose 67 mg/dL (74-106); Potassium 3.6 mmol/L (3.5-5.1); Sodium Level 139 mmol/L (136-145)
[2022-12-20] MEDS: Thiamine Hydrochloride 100 MG Tablet PO (07:46)
[2022-12-20] MEDS: Folic Acid 1 MG Tablet PO (07:46)
--- NOTE | 2022-12-20 09:45 | CASEMGMT ---
Discharge Planning Referral for PT, OT, SN, and [employer] sent via [facility] to [facility], [facility], [facility], , and [facility] . Erika Figueroa
--- NOTE | 2022-12-20 11:00 | CASEMGMT ---
Discharge Planning All agencies declined referral. No reason was given by [facility] and [facility], [facility] and [facility] are out of service area, and declined d/t staffing. RN CM notified. Erika Figueroa
--- NOTE | 2022-12-20 11:04 | CASEMGMT ---
Addendum entered by Lin Ritchie 12/20/22 13:10: MERLENE SIMPSON into pt room to make aware of accepting agency. He is aware that his son is updated as well. He became tearful and states that his son loves him and that he trusts anything his son does for him. Pt denies further needs. Addendum entered by Lin Ritchie 12/20/22 13:06: Also discussed with pt son that when SNF was recommended, this is for s/t rehab. He states he is aware of this. He states he still promised his dad that he would never put him in a care home. Addendum entered by Lin Ritchie 12/20/22 13:02: [facility] has accepted pt for care. TC to pt son, made aware that the 5 requested agencies have declined but the referral was sent out to the rest on the list and so far [facility] has accepted. He is aware this is a 4 star agency. He is agreeable to this agency providing care. He also is aware pt will not be dc'd today. He states he took off work as he works second shift to pick his father up. He also works weekends. He requests to be kept updated on possible dc date due to having to work this out with his boss for transportation home. He denies further questions. DC producer assistant updated for [facility] as accepting agency. Original Note: All 5 agencies chosen by son declined pt for services. Requested dc producer assistant to send referral to rest of agencies on list at this time to see if any accepting agencies.
--- NOTE | 2022-12-20 11:10 | CASEMGMT ---
Discharge Planning HH referrals sent via [facility] to [facility], [facility], and [facility]. Erika Figueroa
[2022-12-20 12:00] LABS: Pathologist Review Reviewed
[2022-12-20 12:07] LABS: Pathologist Review Reviewed
--- NOTE | 2022-12-20 13:15 | CASEMGMT ---
Discharge Planning services will be provided by [facility] upon discharge. [facility] and [facility] declined d/t being out of services area, and [facility] declined d/t not being able to meet patients needs. RN CM notified. Erika Figueroa
[2022-12-20] MEDS: 0.9% Saline Lock 10 ML Syringe IV (14:24)
--- NOTE | 2022-12-20 17:49 | PN_ITS ---
Subjective Subjective Patient was scheduled but was discovered to have a low hemoglobin at 6.2. Objective Data Objective Data Vital Signs: Vital Signs Temp Pulse Resp BP Pulse Ox O2 Del Method O2 Flow Rate 98.7 F 93 18 134/74 H 97 Room Air 3 12/20/22 17:32 12/20/22 17:32 12/20/22 17:32 12/20/22 17:32 12/20/22 17:32 12/20/22 17:32 12/18/22 07:30 Oxygen Flow Rate (L/min) 3 Oxygen Delivery Method Room Air Weight: 178 lb 2.136 oz Body Mass Index (BMI) 25.4 Intake & Output: Intake and Output for Last 24 Hours 12/18/22 12/19/22 12/20/22 23:59 23:59 23:59 Intake Total 1760 / 2435 1355 / 1355 2090 / 2090 Output Total 1250 / 2150 2450 / 2450 2500 / 2500 Balance 510 / 285 -1095 / -1095 -410 / -410 Lab / Micro Data Result Diagrams: 12/20/22 05:32 12/20/22 05:32 Labs: Laboratory Results - last 24 hr 12/19/22 06:49: Diff Path Review Reviewed 12/20/22 05:32: WBC 2.1 L, RBC 1.93 L, Hgb 6.2 L, Hct 18.7 L, MCV 96.9 H, MCH 32.1 H, MCHC 33.2 D, RDW Std Deviation 52.7 H, RDW Coeff of Jesus 14.9 H, Plt Count 221, MPV 9.5, Immature Gran % (Auto) 0.500, Neut % (Auto) 51.0, Lymph % (Auto) 26.4, [place] % (Auto) 17.3 H, Eos % (Auto) 3.4, Baso % (Auto) 1.4 H, Absolute Neuts (auto) 1.1 L, Absolute Lymphs (auto) 0.55 L, Nucleated RBC % 0, Differential Comment SCANNED, Diff Path Review Reviewed 12/20/22 05:32: Sodium 139, Potassium 3.6, Chloride 106, Carbon Dioxide 28.0, A nion Gap 5, BUN 15, Creatinine 0.76, Estim Creat Clear Calc 75.03, Est GFR (MDRD) Af Amer 132, Est GFR (MDRD) Non-Af 109, BUN/Creatinine Ratio 19.7, Glucose 67 L, Calcium 7.7 L 12/20/22 08:38: Blood Type O POSITIVE, Antibody Screen NEGATIVE, Crossmatch See Detail Micro: Microbiology 12/12/22 22:14 Mucosa - Nasopharyngeal Respiratory Panel (PCR) - Final 12/12/22 20:35 Stool Stool Occult Blood (VENKATA) - Final Occult Blood Positive Physical Exam Narrative General: Alert, oriented HEENT: Atraumatic, normocephalic Eyes: Anicteric, normal conjunctiva, extraocular movements grossly intact Neck: Supple Respiratory: Clear to auscultation bilaterally, normal respiratory effort Cardiovascular: Regular rate and rhythm GI: Soft, nontender, nondistended Extremities: No edema Musculoskeletal: Moving all extremities Neuro: No overt focal neurological deficits Skin: No rashes appreciated Psych: Hypersexual and inappropriate Assessment & Plan Assessment/Plan (1) GI bleed: PLAN: Acute GI Bleed w/ resultant Acute Blood Loss Anemia complicated by underlying alcohol abuse with possibly Syncopal event associated with his GI bleed presentation/acute blood loss: He was transfused 2 units of packed red blood cells and he was placed on octreotide, PPI drip and IV Rocephin. EGD on 12/14: esophageal mucosal changes suspicious for David's, chronic gastritis (biopsied), duodenitis, one oozing duodenal ulcer w visible vessel injected continue sucralfate 12/15 DC'd octreotide gtt 12/16: it has been over 72h w pantoprazole gtt, will change to IV boluses. 12/20: Hemoglobin dropped down to 6.2. He will need to be transfused 2 units of packed red blood cells and he will need a repeat endoscopy tomorrow. N.p.o. past midnight. (2) Acute blood loss anemia: PLAN: Suspect likely acute on chronic anemia stable Transfused 2 units PRBCs. (3) Lactic acidosis: PLAN: Resolved w IVF Admission lactic acid 3.5 (4) Alcohol withdrawal: PLAN: He is off of Precedex drip (5) Hyponatremia: (6) Mass of left lung: (7) Stage II pressure ulcer: Charges/Coding Visit Charges Inpatient E&M: 19209 Subs Hosp L3
[2022-12-20 18:24] LABS: Hemoglobin 8.9 g/dL (13.0-16.5)
[2022-12-20] MEDS: traZODone 100 MG Tablet PO (22:06)
[2022-12-20] MEDS: Gabapentin 300 MG Capsule PO (22:07)
[2022-12-20] MEDS: Acetaminophen 325 MG Tablet 650 MG PO (22:43)
[2022-12-21] VITALS (11 sets, daily range): BP systolic 114–144; BP diastolic 61–82; PULSE 74–91; RESP 16–18; TEMP 36.4–37.2; O2SAT 98–100; BMI 25.4
[2022-12-21] MEDS: hydrOXYzine PAM 25 MG Capsule PO (00:53)
[2022-12-21 04:08] LABS: Absolute Lymphocyte Count 0.52 X10^3/uL (0.83-4.51); Absolute Neutrophil Count 1.5 X10^3/uL (2.0-7.7); Basophil# 0.03 X10^3/uL; Basophil% 1.1 % (0-1); Eosinophil# 0.06 X10^3/uL; Eosinophils% 2.2 % (0-5); Hematocrit 22.3 % (40-54); Hemoglobin 7.5 g/dL (13.0-16.5); Lymphocyte # 0.52 X10^3/ul (0.83-4.51); Lymphocyte % 19.5 % (19-41); Mean Corp Hgb Conc 33.6 g/dL (32-36); Mean Corpuscular Hgb 31.5 pg (27.0-32.0); Mean Corpuscular Volume 93.7 fL (80-94); Mean Platelet Vol. 9.3 fl (6.2-12.0); Monocyte# 0.53 X10^3/uL; Monocyte% 19.9 % (0-10); NRBC Flagged by Analyzer 0 % (0-5); Neutrophil # 1.51 X10^3/uL (2.7-7.7); Neutrophil % 56.6 % (47-70); POSITIVE DIFFERENTIAL YES; Platelet Count 201 K/mm3 (150-450); RBC Distribution Width CV 15.9 % (11.6-14.6); RBC Distribution Width SD 53.7 fl (35.1-43.9); Red Blood Count 2.38 M/mm3 (4.6-6.2); White Blood Count 2.7 K/mm3 (4.4-11.0)
[2022-12-21 04:10] LABS: Differential Indicated SCAN CRITERIA MET
[2022-12-21 04:25] LABS: Differential Comment SCANNED
[2022-12-21 04:26] LABS: Hypochromasia 2+
[2022-12-21 05:34] LABS: Syphilis Antibodies Non-reactive; Vitamin B12 490 pg/mL (211-911)
[2022-12-21 05:38] LABS: ALB/GLOB Ratio 0.7 RATIO (0.9-2.4); AST(SGOT) 34 U/L (15-37); Alanine Aminotransfer ALT/SGPT 25 U/L (16-61); Albumin, Serum 1.8 g/dL (3.2-5.0); Alkaline Phosphatase 102 U/L (45-117); Anion Gap 4 (5-15); BUN 17 mg/dL (7-18); BUN/Creat Ratio 16.5 RATIO (10-20); Calcium,Total 7.7 mg/dL (8.5-10.1); Chloride 104 mmol/L (98-107); Creatinine, Serum 1.03 mg/dL (0.70-1.30); EST Glomerular Filtration Rate 77 mL/min (>60); Est Glom Filt Rate - Afr Amer 93 mL/min (>60); Estimated Creatinine Clearance 72.84 ml/min; Globulin 2.7 g/dL (2.2-4.2); Glucose 108 mg/dL (74-106); Potassium 3.9 mmol/L (3.5-5.1); Protein, Total 4.5 g/dL (6.4-8.2); Sodium Level 136 mmol/L (136-145)
--- NOTE | 2022-12-21 08:48 | PN.HOSP_ITS ---
Reason for Visit Reason for Visit: Diagnoses Acute posthemorrhagic anemia (12/12/22) Hypo-osmolality and hyponatremia (12/12/22) Acidosis, unspecified (12/12/22) Alcohol use, unspecified with withdrawal, unspecified (12/12/22) Gastrointestinal hemorrhage, unspecified (12/12/22) Pressure ulcer of unspecified site, stage 2 (12/12/22) Homicidal ideations (12/12/22) Other malaise (12/12/22) Other nonspecific abnormal finding of lung field (12/12/22) Contusion of left elbow, initial encounter (12/12/22) Subjective Subjective Has had 2 more black tarry bowel movements, no bright red blood, no vomiting. Patient reports today that he is interested in outpatient rehab and does want to quit drinking moving forward after this hospitalization. Discussed his left elbow and he reports it still hurts and had previously drained clear yellow fluid, Has preserved range of motion and do not suspect septic joint, but erythema and swelling persist with some tenderness on full extension over erythematous area do suspect may more likely be abscess than hematoma, will discuss with surgery Objective Data Objective Data Vital Signs: Vital Signs Temp Pulse Resp BP Pulse Ox O2 Del Method O2 Flow Rate 98.7 F 79 18 121/61 H 100 Room Air 3 12/21/22 07:59 12/21/22 07:59 12/21/22 07:59 12/21/22 07:59 12/21/22 07:59 12/21/22 07:59 12/18/22 07:30 Oxygen Flow Rate (L/min) 3 Oxygen Delivery Method Room Air Weight: 80.8 kg Body Mass Index (BMI) 25.4 Intake & Output: Intake and Output for Last 24 Hours 12/19/22 12/20/22 12/21/22 23:59 23:59 23:59 Intake Total 1355 / 1355 2200 / 2200 300 / 300 Output Total 2450 / 2450 2500 / 2500 1900 / 1900 Balance -1095 / -1095 -300 / -300 -1600 / -1600 Lab / Micro Data Result Diagrams: 12/21/22 03:26 12/21/22 03:26 Labs: Laboratory Results - last 24 hr 12/19/22 06:49: Diff Path Review Reviewed 12/20/22 05:32: Diff Path Review Reviewed 12/20/22 08:38: Blood Type O POSITIVE, Antibody Screen NEGATIVE, Crossmatch See Detail 12/20/22 18:16: Hgb 8.9 L 12/21/22 03:26: WBC 2.7 L, RBC 2.38 L, Hgb 7.5 L, Hct 22.3 L, MCV 93.7, MCH 31.5, MCHC 33.6, RDW Std Deviation 53.7 H, RDW Coeff of Jesus 15.9 H, Plt Count 201, MPV 9.3, Immature Gran % (Auto) 0.700, Neut % (Auto) 56.6, Lymph % (Auto) 19.5, Greer % (Auto) 19.9 H, Eos % (Auto) 2.2, Baso % (Auto) 1.1 H, Absolute Neuts (auto) 1.5 L, Absolute Lymphs (auto) 0.52 L, Nucleated RBC % 0, Diff erential Comment SCANNED, Diff Path Review May foll, Hypochromasia 2+ 12/21/22 03:26: Sodium 136, Potassium 3.9, Chloride 104, Carbon Dioxide 28.0, Anion Gap 4 L, BUN 17, Creatinine 1.03, Estim Creat Clear Calc 72.84, Est GFR (MDRD) Af Amer 93, Est GFR (MDRD) Non-Af 77, BUN/Creatinine Ratio 16.5, Glucose 108 H, Calcium 7.7 L, Total Bilirubin 0.40, AST 34, ALT 25, Alkaline Phosphatase 102, Total Protein 4.5 L, Albumin 1.8 L, Globulin 2.7, Albumin/Globulin Ratio 0.7 L, Folate 7.10 12/21/22 03:26: Vitamin B12 490, Syphilis Total Ab Non-reactive 12/21/22 03:26: Ammonia 43.0 H Micro: Microbiology 12/12/22 22:14 Mucosa - Nasopharyngeal Respiratory Panel (PCR) - Final 12/12/22 20:35 Stool Stool Occult Blood (VENKATA) - Final Occult Blood Positive Physical Exam Narrative General: Alert, oriented HEENT: Atraumatic, normocephalic Eyes: Anicteric, normal conjunctiva, extraocular movements grossly intact Neck: Supple Respiratory: Clear to auscultation bilaterally, normal respiratory effort Cardiovascular: Regular rate and rhythm GI: Soft, nontender, nondistended Extremities: Left elbow with some swelling compared to the right, not tender with palpating and no drainage, has superficial scab in the area but again nothing is presently draining and not overtly fluctuant, some erythema compared to right Musculoskeletal: Moving all extremities Neuro: No overt focal neurological deficits Skin: No rashes appreciated Psych: Still somewhat and more appropriate though better today Assessment & Plan Assessment/Plan (1) GI bleed: (2) Acute blood loss anemia: (3) Alcohol withdrawal: (4) Hyponatremia: (5) Mass of left lung: (6) Left elbow contusion: (7) Debility: (8) Traumatic hematoma of left elbow: PLAN: Plan #Acute upper GI bleed secondary to oozing duodenal ulcer with resultant acute blood loss anemia -On presentation required 2 units packed red blood cells and IV PPI drip as well as octreotide given alcohol abuse -Additionally IV Rocephin due to alcohol use history -EGD 12/14 with esophageal mucosal changes suspicious for Mendez's, chronic gastritis (biopsied), duodenitis, one oozing duodenal ulcer w visible vessel injected -He subsequently had octreotide drip discontinued 12/15 and his PPI drip transition to IV boluses 12/16 -12/20: This a.m. had a hemoglobin of 6.2, 2 units packed red blood cells ordered. Discussed with GI, n.p.o. at midnight will likely need repeat scope. Recheck hemoglobin posttransfusion -12/21: Several more black tarry stools. Hemoglobin went up to 8.9 after transfusions, this a.m. 7.5, for endoscopy. #Significant debility -Working with PT/OT, only ambulated 3 feet with therapy -Certainly not safe to go home alone -Family considering taking him home and that they may be able to assist with care #Alcohol withdrawal -Status post phenobarb taper, was on Precedex drip which has been off since 12/17 -Declined AA and other outpatient resources -12/21: Interested in outpatient rehab now #Hyponatremia -Suspected to have chronic component on admission compounded with hypovolemia -Sodium 132 on admission -TSH 0.35, free T41.04, given normal free T4 will not treat at this time but will need repeat thyroid function test in outpatient #Left lung mass -Found incidentally on imaging as a small pleural-based patchy opacity in the left pulmonary apex -Recommend outpatient pulm follow-up #Psychiatric disturbance NOS -12/16: told nursing that he was going to get his gun and shoot the boyfriend of his ex- and her too if she got in the way. Nursing later clarified this with him and he dismissed it at godwin-talk, but said he would point his gun at his ex- 's boyfriend. Mental health assessment by social work and denied intent or plan and not meeting criteria for psych placement -12/20: Patient significantly hypersexual and inappropriate in his interactions which sounds to have spanned at this hospitalization, unclear baseline. CT on presentation with mild atrophy and periventricular white matter ischemic changes with no acute process, review of images does appear to have deep sulci. Could have early stages of dementia, possible that this is a personality component. We will get basic lab work-up to evaluate for other underlying etiology though sounds he has had fairly consistent behavior, do not think at this time he needs further imaging or LP but if any mental status changes or other concerns could consider further work-up and neuro consult -12/21: Patient still with inappropriate comments but significantly improved from yesterday and acknowledged that he was just messing with me and apologized lending support to theory that this is at least in part possible behavioral/personality. B12 and folate within normal limits, syphilis nonreactive, HIV pending #Left elbow contusion -Soft tissue US 12/18 Complex collection within left upper arm suggesting abscess or subacute/chronic hematoma- 8.7 x 1.7 x 4.8 cm -No left shift or other signs or symptoms suggestive of infection/abscess at this time. -12/21: Did reported previously had some draining clear with some yellow, still has some pain with full extension but no limited range of motion, given that there is some erythema and persistent swelling with new report that he had had some drainage from it and scab noted we will discuss surgery for potential drainage of fluid collection concerning for abscess and start doxyxycline #Lactic acidosis present on admission?resolved #Chew Tobacco Abuse -Encouraged cessation, inpatient consultation per RT, NR if desired. #History of tonsillar cancer -Patient notes ongoing evaluations q 3 months, reports being in remission, status postresection and prior chemotherapy #DVT ppx: SCDs given acute GI bleed presentation as noted. Natalie Dailey MD Time spent in the patient's overall evaluation,decision-making process, review of diagnostic data, adjustment of management, discussion with other providers, nursing nursing and ancillary staff involved in patient's care documentation, 40 Minutes Charges/Coding Visit Charges Inpatient E&M: 96795 Subs Hosp L3
[2022-12-21] MEDS: 0.9% Saline Lock 10 ML Syringe IV (10:32)
--- NOTE | 2022-12-21 10:33 | ADDICTION ---
This worker gave pt a list of substance use treatment resources for [place], where he will be living upon discharge.
[2022-12-21 12:28] LABS: Pathologist Review Reviewed
--- NOTE | 2022-12-21 14:57 | CON.PCM.OR_ITS ---
HPI Consult Data Date of Consult: 12/21/22 HPI Narrative HPI Narrative: MIRNA JEFFRIES, is a 67 M who presented to [facility] 12/12/2022 for GI bleed. Patient is a chronic alcoholic. Patient reports a fall several weeks ago injuring his left elbow. He reported some pain at that time. Pain is since improved. He is noted some drainage from the wound along his left olecranon. He states it was red but this is gotten better with antibiotics. An ultrasound was performed 12/18/2022 of a mass along the mid to distal portion of his triceps muscle belly. Ultrasound was consistent with fluid collection of chronic hematoma versus abscess. Hematoma was suspected and conservative management was initiated at that time. Due to concern from a low small wound overlying his olecranon, was consulted today for possible surgical intervention. Patient den ies any significant pain in his left elbow at time of my examination. He denies any fevers, chills, chest pain, shortness of breath. Patient is scheduled for a repeat endoscopy secondary to GI bleed today. [facility] Medical History Anxiety and depression Chewing tobacco use ETOH abuse History of cancer tonsil Home Medications NK 12/12/22 [History Last Taken Unknown] Allergy/AdvReac Type Severity Reaction Status Date / Time No Known Allergies Allergy Verified 12/12/22 18:23 Family History Mother Diabetes Father Diabetes Brother Colon cancer Surgical History History of tonsillectomy and adenoidectomy Surgical History no surgical history Social History household members: other details: Lives with his son. Smoking Status: Former smoker Smokeless tobacco user: chewing tobacco and other alcohol intake: current alcohol intake frequency: 3 or more drinks per day details: 8-10 beers daily coupled with hard liquor. substance use type: does not use ROS ROS Narrative 12 point review of systems obtained, negative unless otherwise noted in HPI. Vital Signs Vital Signs Vital Signs: 12/20/22 15:54 12/20/22 16:54 12/20/22 17:32 Temperature 98.5 F 99.4 F H 98.7 F Temperature Source Oral Oral Oral Pulse Rate 90 85 93 Pulse Strength Respiratory Rate 18 18 18 Respiratory Effort Respiratory Depth Respiratory Pattern Blood Pressure 123/73 H 129/69 H 134/74 H Blood Pressure Mean 89 89 94 Blood Pressure Source Monitor Monitor Monitor Blood Pressure Position Semi-Fowlers Semi-Fowlers Sitting Blood Pressure Location Left Arm Left Arm Left Arm Pulse Ox 98 98 97 Oxygen Delivery Method Room Air Room Air Room Air 12/20/22 20:20 12/20/22 22:12 12/20/22 22:00 Temperature 98.1 F Temperature Source Oral Pulse Rate 85 Pulse Strength Normal (2+) Respiratory Rate 18 Respiratory Effort Normal Non-Labored Respiratory Depth Normal Respiratory Pattern Normal Blood Pressure 128/70 H Blood Pressure Mean 89 Blood Pressure Source Blood Pressure Position Blood Pressure Location Pulse Ox 99 Oxygen Delivery Method Room Air Room Air 12/21/22 02:00 12/21/22 06:00 12/21/22 07:59 Temperature 98.3 F 98.7 F Temperature Source Oral Temporal Pulse Rate 74 79 Pulse Strength Respiratory Rate 18 18 Respiratory Effort Normal Non-Labored Respiratory Depth Normal Respiratory Pattern Normal Blood Pressure 142/75 H 121/61 H Blood Pressure Mean 97 81 Blood Pressure Source Monitor Blood Pressure Position Semi-Fowlers Blood Pressure Location Left Arm Pulse Ox 98 100 Oxygen Delivery Method Room Air Room Air 12/21/22 08:00 12/21/22 10:00 Temperature Temperature Source Pulse Rate Pulse Strength Normal (2+) Respiratory Rate Respiratory Effort Respiratory Depth Respiratory Pattern Blood Pressure Blood Pressure Mean Blood Pressure Source Blood Pressure Position Blood Pressure Location Pulse Ox Oxygen Delivery Method Room Air Weight Weight: 178 lb 2.136 oz Body Mass Index (BMI) 25.4 Physical Exam Narrative General -A&Ox3, NAD, appears stated age. Vital signs stable, afebrile. Respiratory -normal work of breathing, no intercostal retractions. CV -pulses regular, brisk capillary refill ?4 limbs. Abdomen-soft, nontender, nondistended. No guarding, rigidity, rebound tenderness. Musculoskeletal/neurologic -left upper extremity-4 x 4 millimeter wound noted overlying the tip of the left olecranon with slough noted and no significant surrounding erythema. Patient has full range of motion of his left elbow. Th ere is a palpable, semifluctuant mass noted approximately 8 x 8 cm noted in the distal brachium posteriorly. This does not appear to translate with the triceps. This is nontender. The olecranon is nontender. I was unable to express any drainage from the wound noted overlying the olecranon. Cardinal motions of the left hand are intact. No short arc range of motion pain of the left elbow. Lab / Micro Data Result Diagrams: 12/21/22 03:26 12/21/22 03:26 Labs: Laboratory Results - last 24 hr 12/20/22 08:38: Crossmatch See Detail 12/20/22 18:16: Hgb 8.9 L 12/21/22 03:26: WBC 2.7 L, RBC 2.38 L, Hgb 7.5 L, Hct 22.3 L, MCV 93.7, MCH 31.5, MCHC 33.6, RDW Std Deviation 53.7 H, RDW Coeff of Jesus 15.9 H, Plt Count 201, MPV 9.3, Immature Gran % (Auto) 0.700, Neut % (Auto) 56.6, Lymph % (Auto) 19.5, [place] % (Auto) 19.9 H, Eos % (Auto) 2.2, Baso % (Auto) 1.1 H, Absolute Neuts (auto) 1.5 L, Absolute Lymphs (auto) 0.52 L, Nucleated RBC % 0, Differential Comment SCANNED, Diff Path Review Reviewed, Hypochromasia 2+ 12/21/22 03:26: Sodium 136, Potassium 3.9, Chloride 104, Carbon Dioxide 28.0, Anion Gap 4 L, BUN 17, Creatinine 1.03, Estim Creat Clear Calc 72.84, Est GFR (MDRD) Af Amer 93, Est GFR (MDRD) Non-Af 77, BUN/Creatinine Ratio 16.5, Glucose 108 H, Calcium 7.7 L, Total Bilirubin 0.40, AST 34, ALT 25, Alkaline Phosphatase 102, Total Protein 4.5 L, Albumin 1.8 L, Globulin 2.7, Albumin/Globulin Ratio 0.7 L, Folate 7.10 12/21/22 03:26: Vitamin B12 490, Syphilis Total Ab Non-reactive 12/21/22 03:26: Ammonia 43.0 H Assessment & Plan Assessment/Plan (1) Traumatic hematoma of left elbow: PLAN: Low concern for abscess in the left posterior brachium soft tissues. I suspect this is most likely subacute hematoma. Conservative management recommended with warm compresses and active range of motion. Patient does have a wound overlying his left olecranon. There is no significant bursitis noted at this time. I would recommend local wound care. I would recommend a trial of 2 weeks of oral antibiotics secondary to prior cellulitis in the setting of the wound overlying the olecranon. Osteomyelitis of the left olecranon is considered. I would recommend MRI if there is failure of conservative management with antibiotics. I will plan to follow-up with the patient as an outpatient in approximately 2 weeks. If there are any changes clinically or concerns please do not hesitate to contact myself, otherwise I will sign off at this time. Thank you for this consultation.
--- NOTE | 2022-12-21 18:00 | OP.EGD_ITS ---
Patient Name: Messi Waldrop Procedure Date: 12/21/2022 5:23 PM Date of : 1955 Age: 67 Procedure: Upper GI endoscopy Indications: Iron deficiency anemia Providers: Ender Hennessy DO Medicines: Monitored Anesthesia Care Patient Profile: This is a 67 year old male. Refer to note in patient chart for documentation of history and physical. Patient has symptoms of acute nausea. Complications: No immediate complications. Procedure: Pre-Anesthesia Assessment: - Prior to the procedure, a History and Physical was performed, and patient medications and allergies were reviewed. The risks and benefits of the procedure and the sedation options and risks were discussed with the patient. All questions were answered and informed consent was obtained. Patient identification and proposed procedure were verified by the physician in the pre-procedure area. Mental Status Examination: alert and oriented. Airway Examination: normal oropharyngeal airway and neck mobility. Respiratory Examination: clear to auscultation. Prophylactic Antibiotics: The patient does not require prophylactic antibiotics. Prior Anticoagulants: The patient has taken no previous anticoagulant or antiplatelet agents. ASA Grade Assessment: II - A patient with mild systemic disease. After reviewing the risks and benefits, the patient was deemed in satisfactory condition to undergo the procedure. The anesthesia plan was to use monitored anesthesia care (MAC). Immediately prior to administration of medications, the patient was re-assessed for adequacy to receive sedatives. The heart rate, respiratory rate, oxygen saturations, blood pressure, adequacy of pulmonary ventilation, and response to care were monitored throughout the procedure. The physical status of the patient was re-assessed after the procedure. After obtaining informed consent, the endoscope was passed under direct vision. Throughout the procedure, the patient's blood pressure, pulse, and oxygen saturations were monitored continuously. The gastroscope was introduced through the mouth, and advanced to the second part of duodenum. The upper GI endoscopy was accomplished without difficulty. The patient tolerated the procedure well. Scope In: 5:37:59 PM Scope Out: 5:48:07 PM Total Procedure Duration Time 0 hours 10 minutes 8 seconds Findings: The esophagus and gastroesophageal junction were examined with white light and narrow band imaging (NBI) from a forward view and retroflexed position. There were esophageal mucosal changes suggestive of long-segment Mendez's esophagus. These changes involved the mucosa at the upper extent of the gastric folds (40 cm from the incisors) extending to the Z-line (32 cm from the incisors). Constable-colored mucosa was present. A medium-sized hiatal hernia was present. Diffuse moderate inflammation characterized by erosions, erythema and friability was found in the entire examined stomach. Biopsies were taken with a cold forceps for histology. Verification of patient identification for the specimen was done. Estimated blood loss was minimal. Three oozing cratered duodenal ulcers with a visible vessel were found in the duodenal bulb and in the first portion of the duodenum. The largest lesion was 10 mm in largest dimension. Area was successfully injected with 5 mL of a 1:10,000 solution of epinephrine for drug delivery. Coagulation for hemostasis using heater probe was successful. Clot removal with snare was attempted. This was successful and revealed an oozing lesion with pigmented material. 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 - Medium-sized hiatal hernia. - Acute gastritis. Biopsied. - Multiple oozing duodenal ulcers with a visible vessel. Injected. Treated with a heater probe. Recommendation: - Return patient to [facility] for [facility] care. - NPO today. - Continue present medications. - Give Protonix (pantoprazole): initiate therapy with 80 mg IV bolus, then 8 mg/hr IV by continuous infusion. - Administer an IV bolus of 50 micrograms of octreotide followed by an infusion of 50 micrograms per hour. Procedure Code(s): --- Professional --- 91479, 59, Esophagogastroduodenoscopy, flexible, transoral; with control of bleeding, any method 79015, 59, Esophagogastroduodenoscopy, flexible, transoral; with directed submucosal injection(s), any substance 71225, 51, Esophagogastroduodenoscopy, flexible, transoral; with biopsy, single or multiple CPT copyright 2017 [employer]. All rights reserved. The codes documented in this report are preliminary and upon director database review may be revised to meet current compliance requirements. Ender Hennessy DO 12/21/2022 6:00:09 PM This report has been signed electronically. Number of Addenda: 0 Note Initiated On: 12/21/2022 5:23 PM
--- NOTE | 2022-12-21 18:00 | EGD_PTH ---
PATIENT: MIRNA JEFFRIES LOC: MS3 U#:[id number] AGE/SX: 67/M ROOM: [facility] RE12/12/[address]: Dr. Natalie Dailey MD : 1955 BED: 1 DIS: 12/23/2022 SPEC #: [id number] RECD: 12/21/22 18:40 STATUS: BRIAN REQ #: [id number] TARAS: 12/21/22 18:[address]: Ender Hennessy DEPT: SURGICAL PATHOLOGY RECD BY: Tatianna Gann ENTERED: 12/22/22 10:15 SP TYPE: EGD BIOPSY OTHR DR: MD Dr. Galen Womack DO Dr. Nicholas Spittle, DO Dr. Paige Pierce, MD Tissues: A - Duodenum, NOS B - Gastric mucous membrane Procedures: Surgery Specimen Level IV Comments: @ Ordering doctor for SUIV edited from to @ by RGOWALKER at 12/22/22 1340 @ Submitting doctor edited from to @ by RGOOD at 12/22/22 1340 HEADER OPERATION: EGD ([facility] [place] PRE-OP DIAGNOSIS: GI bleed TISSUE SUBMITTED: A ? Duodenal ulcer, B ? Gastric antrum biopsy MICROSCOPIC DIAGNOSIS A. Duodenal ulcer, biopsy: A fragment of duodenal mucosa with nonspecific chronic inflammation. B. Gastric antrum, biopsy: Moderate gastritis. See microscopic description and comment. SJ:pam 12/26/2022 COMMENT B. The results of immunohistochemistry for Helicobacter pylori will be reported separately ([id number]). MICROSCOPIC DESCRIPTION Slides are reviewed. B. The specimen shows fragments of gastric mucosa with chronic inflammatory cell infiltrates in the lamina propria consisting of lymphocytes and plasma cells, consistent with moderate chronic gastritis. GROSS DESCRIPTION A - Received in fixative is one container labeled with the patient's name and designated duodenal ulcer. The specimen consists of one irregular fragment of light jones soft tissue that measures 0.3 x 0.3 x 0.1 cm. The specimen is totally submitted in one cassette. B - Received in fixative is one container labeled with the patient's name and designated gastric antrum. The specimen consists of multiple irregular fragments of light jones soft tissue that in aggregate measure 1.0 x 0.3 x 0.1 cm. The specimen is totally submitted in one cassette. / SJ:rg 12/22/2022 TC:3 CPT: 87714 x2
--- NOTE | 2022-12-21 18:00 | IMM_PTH ---
PATIENT: MIRNA JEFFRIES LOC: MS3 U#:[id number] AGE/SX: 67/M ROOM: [facility] RE12/12/[address]: Dr. Natalie Dailey MD : [id number] BED: 1 DIS: 12/23/2022 SPEC #: [id number] RECD: 12/22/22 13:40 STATUS: BRIAN REQ #: [id number] TARAS: 12/21/22 18:[address]: Ender Hennessy DEPT: IMMUNOHISTOCHEMISTRY RECD BY: Chandrika Saleh ENTERED: 12/22/22 13:42 SP TYPE: IMMUNO OTHR DR: MD Dr. Galen Womack DO Dr. Nicholas Spittle, DO Dr. Paige Pierce, MD Tissues: B - Stomach, NOS Procedures: H Pylori (initial) PHYSICIAN & INSTITUTION [place] [id number] SPECIMEN INFORMATION: Tissue Source: B ? Gastric antrum Clinical Info: GI bleed Specimen Number: [id number] CPT code: 18891 METHODOLOGY: Deparaffinized sections of prefer/formalin-fixed tissue or PAP/DQ stained slides are incubated with monoclonal/polyclonal antibodies/oligonucleotide probes. Localization is made via biotin free immunoperoxidase method. Appropriate controls are performed and reacted as expected. Results on target cell population are indicated in the following table: RESULTS: ANTIBODY / CLONE RESULT Block B H Pylori (polyclonal) negative These tests were developed and their performance characteristics determined by [facility]. They may not have been cleared or approved by the U.S. Food and Drug Administration. The FDA has determined that such clearance or approval is not necessary. The above immunohistochemical/dualISH markers are ordered and reviewed by the Pathologist. INTERPRETATION: B. Gastric antrum, biopsy: Negative for Helicobacter pylori organisms. SJ:pam 12/26/2022
[2022-12-21] MEDS: traZODone 100 MG Tablet PO (21:37)
[2022-12-21] MEDS: Lactulose 20 GM/30 ML UDC 10 GM PO (21:38)
[2022-12-22 03:40] VITALS: BP 127/90; PULSE 82; RESP 16; TEMP 37.1; O2SAT 100
[2022-12-22 03:46] VITALS: BMI 24.8
[2022-12-22] MEDS: hydrOXYzine PAM 25 MG Capsule PO ×3 (03:52→20:06)
[2022-12-22] MEDS: Sucralfate 1 GM Tablet PO ×3 (06:13→16:20)
[2022-12-22 06:21] LABS: Absolute Lymphocyte Count 0.49 X10^3/uL (0.83-4.51); Absolute Neutrophil Count 4.7 X10^3/uL (2.0-7.7); Basophil# 0.04 X10^3/uL; Basophil% 0.7 % (0-1); Eosinophil# 0.08 X10^3/uL; Eosinophils% 1.4 % (0-5); Hematocrit 25.7 % (40-54); Hemoglobin 8.3 g/dL (13.0-16.5); Lymphocyte # 0.49 X10^3/ul (0.83-4.51); Lymphocyte % 8.3 % (19-41); Mean Corp Hgb Conc 32.3 g/dL (32-36); Mean Corpuscular Hgb 30.6 pg (27.0-32.0); Mean Corpuscular Volume 94.8 fL (80-94); Mean Platelet Vol. 9.4 fl (6.2-12.0); Monocyte# 0.58 X10^3/uL; Monocyte% 9.8 % (0-10); NRBC Flagged by Analyzer 0 % (0-5); Neutrophil # 4.69 X10^3/uL (2.7-7.7); Neutrophil % 79.3 % (47-70); POSITIVE DIFFERENTIAL YES; Platelet Count 234 K/mm3 (150-450); RBC Distribution Width CV 15.3 % (11.6-14.6); RBC Distribution Width SD 53.1 fl (35.1-43.9); Red Blood Count 2.71 M/mm3 (4.6-6.2); White Blood Count 5.9 K/mm3 (4.4-11.0)
[2022-12-22] MEDS: 0.9% Saline Lock 10 ML Syringe IV (06:22)
[2022-12-22 06:33] LABS: Differential Indicated SCAN CRITERIA MET
[2022-12-22 06:52] LABS: ALB/GLOB Ratio 0.7 RATIO (0.9-2.4); AST(SGOT) 26 U/L (15-37); Alanine Aminotransfer ALT/SGPT 21 U/L (16-61); Albumin, Serum 2.1 g/dL (3.2-5.0); Alkaline Phosphatase 120 U/L (45-117); Anion Gap 6 (5-15); BUN 10 mg/dL (7-18); BUN/Creat Ratio 11.7 RATIO (10-20); Calcium,Total 8.2 mg/dL (8.5-10.1); Chloride 103 mmol/L (98-107); Creatinine, Serum 0.86 mg/dL (0.70-1.30); EST Glomerular Filtration Rate 95 mL/min (>60); Est Glom Filt Rate - Afr Amer 114 mL/min (>60); Estimated Creatinine Clearance 87.24 ml/min; Glucose 129 mg/dL (74-106); Potassium 4.1 mmol/L (3.5-5.1); Protein, Total 5.1 g/dL (6.4-8.2); Sodium Level 135 mmol/L (136-145)
[2022-12-22 07:12] LABS: Atypical Lymphocyte SCANNED %
[2022-12-22 08:13] LABS: HIV - WCH Non-Reactive (Nonreactive)
[2022-12-22 08:32] VITALS: BP 134/74; PULSE 71; RESP 16; TEMP 36.9; O2SAT 100
[2022-12-22] MEDS: Thiamine Hydrochloride 100 MG Tablet PO (08:34)
[2022-12-22] MEDS: Folic Acid 1 MG Tablet PO (08:35)
[2022-12-22 08:51] VITALS: RESP 18
--- NOTE | 2022-12-22 09:33 | PN.HOSP_ITS ---
Reason for Visit Reason for Visit: Diagnoses Acute posthemorrhagic anemia (12/12/22) Hypo-osmolality and hyponatremia (12/12/22) Acidosis, unspecified (12/12/22) Alcohol use, unspecified with withdrawal, unspecified (12/12/22) Gastrointestinal hemorrhage, unspecified (12/12/22) Pressure ulcer of unspecified site, stage 2 (12/12/22) Homicidal ideations (12/12/22) Other malaise (12/12/22) Other nonspecific abnormal finding of lung field (12/12/22) Contusion of left elbow, initial encounter (12/12/22) Subjective Subjective Her ports feeling roughly the same today, did have black bowel movement overnight however likely is residual. Requesting eyedrops for itchy dry eyes and nicotine gum Objective Data Objective Data Vital Signs: Vital Signs Temp Pulse Resp BP Pulse Ox O2 Del Method O2 Flow Rate 98.4 F 71 18 134/74 H 100 Room Air 2 12/22/22 08:32 12/22/22 08:32 12/22/22 08:51 12/22/22 08:32 12/22/22 08:32 12/22/22 08:51 12/21/22 17:55 Oxygen Flow Rate (L/min) 2 Oxygen Delivery Method Room Air Weight: 78.7 kg Body Mass Index (BMI) 24.8 Intake & Output: Intake and Output for Last 24 Hours 12/20/22 12/21/22 12/22/22 23:59 23:59 23:59 Intake Total 2200 / 2200 1040 / 1140 250 / 250 Output Total 2500 / 2500 3600 / 3900 450 / 450 Balance -300 / -300 -2560 / -2760 -200 / -200 Lab / Micro Data Result Diagrams: 12/22/22 06:00 12/22/22 06:00 Labs: Laboratory Results - last 24 hr 12/21/22 03:26: Diff Path Review Reviewed 12/22/22 06:00: WBC 5.9, RBC 2.71 L, Hgb 8.3 L, Hct 25.7 L, MCV 94.8 H, MCH 30.6, MCHC 32.3, RDW Std Deviation 53.1 H, RDW Coeff of Jesus 15.3 H, Plt Count 234, MPV 9.4, Immature Gran % (Auto) 0.500, Neut % (Auto) 79.3 H, Lymph % (Auto) 8.3 L, [place] % (Auto) 9.8, Eos % (Auto) 1.4, Baso % (Auto) 0.7, Absolute Neuts (auto) 4.7, Absolute Lymphs (auto) 0.49 L, Nucleated RBC % 0, Atypical Lymphocytes SCANNED 12/22/22 06:00: Sodium 135 L, Potassium 4.1, Chloride 103, Carbon Dioxide 26.0, Anion Gap 6, BUN 10, Creatinine 0.86, Estim Creat Clear Calc 87.24, Est GFR (MDRD) Af Amer 114, Est GFR (MDRD) Non-Af 95, BUN/Creatinine Ratio 11.7, Glucose 129 H, Calcium 8.2 L, Total Bilirubin 0.40, AST 26, ALT 21, Alkaline Phosphatase 120 H, Total Protein 5.1 L, Albumin 2.1 L, Globulin 3.0, Albumin/Globulin Ratio 0.7 L 12/22/22 06:00: HIV 1&2 Antibody Non-Reactive Micro: Microbiology 12/12/22 22:14 Mucosa - Nasopharyngeal Respiratory Panel (PCR) - Final 12/12/22 20:35 Stool Stool Occult Blood (VENKATA) - Final Occult Blood Positive Physical Exam Narrative General: Alert, oriented HEENT: Atraumatic, normocephalic Eyes: Anicteric, normal conjunctiva, extraocular movements grossly intact Neck: Supple Respiratory: Clear to auscultation bilaterally, normal respiratory effort Cardiovascular: Regular rate and rhythm GI: Soft, nontender, nondistended Extremities: Left elbow with some swelling compared to the right that Musculoskeletal: Moving all extremities Neuro: No overt focal neurological deficits Skin: No rashes appreciated Psych: More appropriate today Assessment & Plan Assessment/Plan (1) GI bleed: (2) Acute blood loss anemia: (3) Alcohol withdrawal: (4) Hyponatremia: (5) Mass of left lung: (6) Left elbow contusion: (7) Debility: (8) Traumatic hematoma of left elbow: PLAN: Plan #Acute upper GI bleed secondary to oozing duodenal ulcer with resultant acute blood loss anemia -On presentation required 2 units packed red blood cells and IV PPI drip as well as octreotide given alcohol abuse -Additionally IV Rocephin due to alcohol use history -EGD 12/14 with esophageal mucosal changes suspicious for Mendez's, chronic gastritis (biopsied), duodenitis, one oozing duodenal ulcer w visible vessel injected -He subsequently had octreotide drip discontinued 12/15 and his PPI drip transition to IV boluses 12/16 -12/20: This a.m. had a hemoglobin of 6.2, 2 units packed red blood cells ordered. Discussed with GI, n.p.o. at midnight will likely need repeat scope. Recheck hemoglobin posttransfusion -12/21: Several more black tarry stools. Hemoglobin went up to 8.9 after transfusions, this a.m. 7.5, for endoscopy. 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 He has been kept n.p.o., on PPI IV and octreotide hemoglobin 8.3 this a.m. #Significant debility -Working with PT/OT, only ambulated 3 feet with therapy -Certainly not safe to go home alone -Family considering taking him home and that they may be able to assist with care #Alcohol withdrawal -Status post phenobarb taper, was on Precedex drip which has been off since 12/17 -Declined AA and other outpatient resources -12/21: Interested in outpatient rehab now #Hyponatremia -Suspected to have chronic component on admission compounded with hypovolemia -Sodium 132 on admission -TSH 0.35, free T41.04, given normal free T4 will not treat at this time but will need repeat thyroid function test in outpatient #Left lung mass -Found incidentally on imaging as a small pleural-based patchy opacity in the left pulmonary apex -Recommend outpatient pulm follow-up #Psychiatric disturbance NOS -12/16: told nursing that he was going to get his gun and shoot the boyfriend of his ex- and her too if she got in the way. Nursing later clarified this with him and he dismissed it at godwin-talk, but said he would point his gun at his ex- 's boyfriend. Mental health assessment by social work and denied intent or plan and not meeting criteria for psych placement -12/20: Patient significantly hypersexual and inappropriate in his interactions which sounds to have spanned at this hospitalization, unclear baseline. CT on presentation with mild atrophy and periventricular white matter ischemic changes with no acute process, review of images does appear to have deep sulci. Could have early stages of dementia, possible that this is a personality component. We will get basic lab work-up to evaluate for other underlying etiology though sounds he has had fairly consistent behavior, do not think at this time he needs further imaging or LP but if any mental status changes or other concerns could consider further work-up and neuro consult -12/21: Patient still with inappropriate comments but significantly improved from yesterday and acknowledged that he was just messing with me and apologized lending support to theory that this is at least in part possible behavioral/personality. B12 and folate within normal limits, syphilis nonreactive, HIV pending -12/22: HIV negative. Had slightly elevated ammonia at 43 and was started on lactulose though does not appear encephalopathic and do not think that this is the main cause of his behavior #Left elbow contusion -Soft tissue US 12/18 Complex collection within left upper arm suggesting abscess or subacute/chronic hematoma- 8.7 x 1.7 x 4.8 cm -No left shift or other signs or symptoms suggestive of infection/abscess at this time. -12/21: Did reported previously had some draining clear with some yellow, still has some pain with full extension but no limited range of motion, given that there is some erythema and persistent swelling with new report that he had had some drainage from it and scab noted we will discuss surgery for potential drainage of fluid collection concerning for abscess and start doxycycline -12/22: Evaluated by Ortho who felt that since he is improving he can be continued on doxycycline for 2 weeks and follow-up outpatient and can have MRI at that time if not improving but no need for current intervention and this is most likely a subacute hematoma #Lactic acidosis present on admission?resolved #Chew Tobacco Abuse -Encouraged cessation, inpatient consultation per RT, NR if desired. -12/22: Requested nicotine gum, order placed #History of tonsillar cancer -Patient notes ongoing evaluations q 3 months, reports being in remission, status postresection and prior chemotherapy #DVT ppx: SCDs given acute GI bleed presentation as noted. Natalie Dailey MD Time spent in the patient's overall evaluation,decision-making process, review of diagnostic data, adjustment of management, discussion with other providers, nursing nursing and ancillary staff involved in patient's care documentation, 30 Minutes Charges/Coding Visit Charges Inpatient E&M: 65247 Subs Hosp L2
[2022-12-22] MEDS: Lactulose 20 GM/30 ML UDC 10 GM PO (09:54)
--- NOTE | 2022-12-22 10:25 | CASEMGMT ---
Discharge Planning [facility] updated with discharge date. Requested fax number for weekend discharge. Erika Figueroa
[2022-12-22] MEDS: Glycerin/Hypromellose/PEG400 15 ml Bottle 2 DRP EACH EYE ×2 (10:38→20:05)
[2022-12-22] MEDS: Nicotine Polacrilex 2 MG GUM PO ×5 (10:38→22:06)
[2022-12-22 14:26] VITALS: RESP 18
[2022-12-22 14:55] VITALS: BP 161/86; PULSE 77; RESP 18; TEMP 36.8; O2SAT 100
--- NOTE | 2022-12-22 19:18 | PCM.PROGNOTE ---
Subjective Subjective Patient underwent an upper endoscopy yesterday for a decreased hemoglobin down to 6.2. He does not have any abdominal pain. He is tolerating a diet. He wants his diet advanced. Objective Data Objective Data Vital Signs: Vital Signs Temp Pulse Resp BP Pulse Ox O2 Del Method O2 Flow Rate 98.2 F 77 18 161/86 H 100 Room Air 2 12/22/22 14:55 12/22/22 14:55 12/22/22 14:55 12/22/22 14:55 12/22/22 14:55 12/22/22 14:55 12/21/22 17:55 Oxygen Flow Rate (L/min) 2 Oxygen Delivery Method Room Air Weight: 173 lb 8.061 oz Body Mass Index (BMI) 24.8 Intake & Output: Intake and Output for Last 24 Hours 12/20/22 12/21/22 12/22/22 23:59 23:59 23:59 Intake Total 2200 / 2200 1040 / 1140 1920 / 1920 Output Total 2500 / 2500 3600 / 3900 1500 / 1500 Balance -300 / -300 -2560 / -2760 420 / 420 Lab / Micro Data Result Diagrams: 12/22/22 06:00 12/22/22 06:00 Labs: Laboratory Results - last 24 hr 12/22/22 06:00: WBC 5.9, RBC 2.71 L, Hgb 8.3 L, Hct 25.7 L, MCV 94.8 H, MCH 30.6, MCHC 32.3, RDW Std Deviation 53.1 H, RDW Coeff of Jesus 15.3 H, Plt Count 234, MPV 9.4, Immature Gran % (Auto) 0.500, Neut % (Auto) 79.3 H, Lymph % (Auto) 8.3 L, [place] % (Auto) 9.8, Eos % (Auto) 1.4, Baso % (Auto) 0.7, Absolute Neuts (auto) 4.7, Absolute Lymphs (auto) 0.49 L, Nucleated RBC % 0, Atypical Lymphocytes SCANNED 12/22/22 06:00: Sodium 135 L, Potassium 4.1, Chloride 103, Carbon Dioxide 26.0, Anion Gap 6, BUN 10, Creatinine 0.86, Estim Creat Clear Calc 87.24, Est GFR (MDRD) Af Amer 114, Est GFR (MDRD) Non-Af 95, BUN/Creatinine Ratio 11.7, Glucose 129 H, Calcium 8.2 L, Total Bilirubin 0.40, AST 26, ALT 21, Alkaline Phosphatase 120 H, Total Protein 5.1 L, Albumin 2.1 L, Globulin 3.0, Albumin/Globulin Ratio 0.7 L 12/22/22 06:00: HIV 1&2 Antibody Non-Reactive Micro: Microbiology 12/12/22 22:14 Mucosa - Nasopharyngeal Respiratory Panel (PCR) - Final 12/12/22 20:35 Stool Stool Occult Blood (VENKATA) - Final Occult Blood Positive Physical Exam Narrative General: Alert, oriented HEENT: Atraumatic, normocephalic Eyes: Anicteric, normal conjunctiva, extraocular movements grossly intact Neck: Supple Respiratory: Clear to auscultation bilaterally, normal respiratory effort Cardiovascular: Regular rate and rhythm GI: Soft, nontender, nondistended Extremities: Left elbow with some swelling compared to the right that Musculoskeletal: Moving all extremities Neuro: No overt focal neurological deficits Skin: No rashes appreciated Psych: More appropriate today Assessment & Plan Assessment/Plan (1) GI bleed: PLAN: Acute GI Bleed w/ resultant Acute Blood Loss Anemia complicated by underlying alcohol abuse with possibly Syncopal event associated with his GI bleed presentation/acute blood loss: He was transfused 2 units of packed red blood cells and he was placed on octreotide, PPI drip and IV Rocephin. EGD on 12/14: esophageal mucosal changes suspicious for David's, chronic gastritis (biopsied), duodenitis, one oozing duodenal ulcer w visible vessel injected continue sucralfate 12/15 DC'd octreotide gtt 12/16: it has been over 72h w pantoprazole gtt, will change to IV boluses. 12/20: Hemoglobin dropped down to 6.2. He will need to be transfused 2 units of packed red blood cells and he will need a repeat endoscopy tomorrow. N.p.o. past midnight. 12/22: Hemoglobin is back up to 8.3 after undergoing endoscopy and further treatment of bleeding duodenal ulcer with epinephrine, electrocautery and Hemospray. He is okay to have his diet advanced and monitor his CBC. If it is stable he can be discharged as per GI on Protonix 40 mg twice daily and Carafate 1 g 4 times daily. Both of these are for 8 weeks. (2) Acute blood loss anemia: PLAN: Suspect likely acute on chronic anemia stable Transfused 2 units PRBCs. (3) Lactic acidosis: PLAN: Resolved w IVF Admission lactic acid 3.5 (4) Alcohol withdrawal: PLAN: He is off of Precedex drip (5) Hyponatremia: (6) Mass of left lung: (7) Stage II pressure ulcer: Charges/Coding Visit Charges Inpatient E&M: 62508 Subs Hosp L3
[2022-12-22] MEDS: traZODone 100 MG Tablet PO (20:06)
[2022-12-22 20:09] VITALS: BP 119/73; PULSE 70; RESP 16; TEMP 36.7; O2SAT 99
[2022-12-22] MEDS: Gabapentin 300 MG Capsule PO (22:35)
[2022-12-23 02:14] VITALS: BP 147/81; PULSE 66; RESP 16; TEMP 37; O2SAT 99
[2022-12-23] MEDS: Sucralfate 1 GM Tablet PO ×2 (05:51→11:25)
[2022-12-23] MEDS: Nicotine Polacrilex 2 MG GUM PO (05:55)
[2022-12-23 06:23] LABS: Absolute Lymphocyte Count 0.42 X10^3/uL (0.83-4.51); Basophil# 0.04 X10^3/uL; Basophil% 1.3 % (0-1); Eosinophils% 3.2 % (0-5); Hemoglobin 7.9 g/dL (13.0-16.5); Lymphocyte # 0.42 X10^3/ul (0.83-4.51); Lymphocyte % 13.2 % (19-41); Mean Corp Hgb Conc 32.9 g/dL (32-36); Mean Corpuscular Hgb 31.2 pg (27.0-32.0); Mean Corpuscular Volume 94.9 fL (80-94); Mean Platelet Vol. 9.5 fl (6.2-12.0); Monocyte# 0.55 X10^3/uL; Monocyte% 17.4 % (0-10); NRBC Flagged by Analyzer 0 % (0-5); Neutrophil # 2.04 X10^3/uL (2.7-7.7); Neutrophil % 64.3 % (47-70); POSITIVE DIFFERENTIAL YES; Platelet Count 225 K/mm3 (150-450); RBC Distribution Width CV 15.1 % (11.6-14.6); RBC Distribution Width SD 52.1 fl (35.1-43.9); Red Blood Count 2.53 M/mm3 (4.6-6.2); White Blood Count 3.2 K/mm3 (4.4-11.0)
[2022-12-23 06:27] LABS: Differential Indicated SCAN CRITERIA MET
[2022-12-23 06:55] LABS: ALB/GLOB Ratio 0.7 RATIO (0.9-2.4); AST(SGOT) 22 U/L (15-37); Alanine Aminotransfer ALT/SGPT 17 U/L (16-61); Albumin, Serum 1.9 g/dL (3.2-5.0); Alkaline Phosphatase 107 U/L (45-117); Anion Gap 2 (5-15); BUN 7 mg/dL (7-18); BUN/Creat Ratio 8.1 RATIO (10-20); Calcium,Total 7.8 mg/dL (8.5-10.1); Chloride 105 mmol/L (98-107); Creatinine, Serum 0.86 mg/dL (0.70-1.30); EST Glomerular Filtration Rate 94 mL/min (>60); Est Glom Filt Rate - Afr Amer 114 mL/min (>60); Estimated Creatinine Clearance 87.24 ml/min; Globulin 2.9 g/dL (2.2-4.2); Glucose 141 mg/dL (74-106); Potassium 4.1 mmol/L (3.5-5.1); Protein, Total 4.8 g/dL (6.4-8.2); Sodium Level 137 mmol/L (136-145)
--- NOTE | 2022-12-23 07:28 | DCINST_ITS ---
Discharge Instructions Diet Discharge Diet: No restrictions Activity Discharge Activity: - (Return to normal activity as tolerated) Follow Up Care Test Results: Test results from this visit will be discussed in further detail at your follow- up appointment, if applicable. Discharge Plan Admission Admit Date/Time: 12/12/22 22:05 Primary Reason for Your Visit: Black stools and weakness Attending Provider: Natalie Dailey Consulting Providers: Natty Guerrero ; Galen Souza ; Chau Schmitz Instructions Patient Instructions: ED Upper GI Bleeding (Stable) Additional Instructions / Restrictions: DISCHARGE INSTRUCTIONS PLEASE READ *Please take this with you to your next doctors appointment* -You will need to take Protonix 40 mg twice daily for 8 weeks followed by once daily thereafter -You will need to take Carafate 1 g 4 times daily for 8 weeks -You will be discharged on lactulose 10 mg twice daily, this can be titrated to achieve 2-3 bowel movements a day -You will need to follow-up with Dr. Hennessy with GI in his office upon discharge. Please call his office to schedule your hospital follow-up appointment (ph. [phone]) -Would recommend lab work (CBC) to check your hemoglobin in 2 to 3 days through your primary care physician's office. Please call their office upon discharge to obtain order for lab work, if you do not have a primary care physician please contact the GI office to obtain order. -You will need to take doxycycline 100 mg twice daily for 2 weeks and follow-up with orthopedic surgery in the office for your elbow. If you are not improving you may need an MRI -Please follow-up with pulmonology upon discharge due to a small spot seen on your lung that may require follow-up imaging or further assessment. Please call their office to schedule an appointment upon discharge. -Your thyroid function was somewhat low, would recommend repeating this on an outpatient basis - It is strongly advised that you refrain from any substance use. Please call Count includes the [facility] located at [address] [place] [id number] (ph [phone]) if you are interested in further resources -Please call your primary care provider's office upon discharge to schedule a hospital follow up within 1 week. -If you do not have a primary care physician of list of local primary care physicians can be provided for you upon discharge. Please ask for this list prior to discharge -For any concerning signs or symptoms please call 911 or proceed to the nearest emergency department Discharge Orders/Prescriptions Prescriptions: New doxycycline hyclate 100 mg tablet 100 mg PO BID 13 Days Qty: 26 0RF pantoprazole [Protonix] 40 mg tablet,delayed release (DR/EC) 40 mg PO BID 30 Days Qty: 60 1RF sucralfate 1 gram tablet 1 g PO Q6H 30 Days Qty: 120 0RF lactulose 20 gram/30 mL Solution 10 g PO BID 30 Days Qty: 900 0RF Referrals / Follow Up: Primary care, physician [Other] - See Referral Note (-If you do not have a primary care physician of list of local primary care physicians can be provided for you upon discharge. Please ask for this list prior to discharge) [facility] [Provider Group] - See Referral Note (Please follow-up with pulmonology upon discharge. Please call their office to schedule an appointment upon discharge.) Chau Schmitz DO [Med Staff - Active Staff] - Within 2 Weeks Ender Hennessy DO [Med Staff - Active Staff] - See Referral Note (You will need to follow-up with Dr. Hennessy with GI in his office upon discharge. Please call his office to schedule your hospital follow-up appointment (ph. [phone])) Disposition Disposition (needs filled in before D/C Order can be placed): Home Health Service
--- NOTE | 2022-12-23 07:32 | PCM.DC.SUM ---
Providers Date of Admission: 12/12/22 Date of Discharge: 12/23/22 Consultations 12/12/22 23:54 Consult: Gastroenterology Routine Consulting Provider: Vandana G[facility] Reason for Consult: GI bleed, EtOH abuse EMERGENT Consult: No Notified: Yes Date Notified: 12/12/22 Time Notified: 22:06 Method of Notification: ED Physician Initiated 12/21/22 12:05 Consult: Orthopedics Routine Consulting Provider: Chau Schmitz Reason for Consult: Concern for left elbow abscess EMERGENT Consult: No Notified: Yes Date Notified: 12/21/22 Time Notified: 12:11 Method of Notification: Text Reason For Visit: GI BLEED Diagnosis Discharge Diagnosis (1) GI bleed: Status: Acute Code(s): K92.2 - Gastrointestinal hemorrhage, unspecified (2) Acute blood loss anemia: Status: Acute Code(s): D62 - Acute posthemorrhagic anemia (3) Lactic acidosis: Status: Acute Code(s): E87.20 - Acidosis, unspecified (4) Alcohol withdrawal: Status: Acute Code(s): F10.939 - Alcohol use, unspecified with withdrawal, unspecified (5) Hyponatremia: Status: Acute Code(s): E87.1 - Hypo-osmolality and hyponatremia (6) Mass of left lung: Status: Acute Code(s): R91.8 - Other nonspecific abnormal finding of lung field (7) Stage II pressure ulcer: Status: Acute Code(s): L89.92 - Pressure ulcer of unspecified site, stage 2 Plan #Acute upper GI bleed secondary to oozing duodenal ulcer with resultant acute blood loss anemia #Significant debility #Alcohol withdrawal #Hyponatremia #Left lung mass #Psychiatric disturbance NOS #Left elbow contusion likely complex hematoma #Lactic acidosis present on admission?resolved #Chew Tobacco Abuse #History of tonsillar cancer Medications at Discharge Home Medications doxycycline hyclate 100 mg tablet 100 mg PO BID 13 days #26 tabs 12/23/22 lactulose 20 gram/30 mL oral solution 10 g (15 mL) PO BID 30 days #900 mL 12/23/22 pantoprazole 40 mg tablet,delayed release (Protonix) 40 mg PO BID 30 days #60 tabs 12/23/22 sucralfate 1 gram tablet 1 g PO Q6H 30 days #120 tabs 12/23/22 Hospital Course Procedures EGD (12/14 and 12/21) Summary of Care Provided Minutes Spent on Discharge: 45 Hospital Course: 67-year-old male history of alcohol use disorder, tonsil cancer status postresection chemotherapy, chew tobacco use who presented to [facility] 12/12/2022 after he passed out and eventually woke up at 4 PM and when he attempted to get up he felt extremely weak and called EMS. He endorsed black stools and poor oral intake. In the ED he was found to have a heart rate of 102 lactic acid 3.5, hemoglobin 7.1 and he was typed and crossed with 2 units packed red blood cells given and GI consulted. He was also started on IV Rocephin due to his history of alcohol use and unclear if he had varices. He had EGD 12/14 with esophageal mucosal changes suspicious for Mendez's, chronic gastritis (biopsied), duodenitis, one oozing duodenal ulcer w visible vessel injected. He subsequently had octreotide drip discontinued 12/15 and his PPI drip transition to IV boluses 12/16. The following a.m. he had a hemoglobin of 6.2 and was given another 2 units packed red blood cells is made n.p.o. at midnight for repeat scope. 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 Hemoglobin was stable and he had no further black tarry stools and felt well on the day of discharge. Additionally during his hospitalization he had received phenobarbital and was on a Precedex drip those discontinued 12/17 for alcohol withdrawal. He had various bizarre behavior though this became less so over time and work-up was negative aside from slightly elevated ammonia at 43 for which she was started on lactulose. Additionally, he was noted to have a left elbow contusion. Soft tissue US 12/18 Complex collection within left upper arm suggesting abscess or subacute/chronic hematoma- 8.7 x 1.7 x 4.8 cm. Initially felt it was a hematoma however given its persistence orthopedic surgery was consulted. Evaluated by Ortho who felt that since he is improving he can be continued on doxycycline for 2 weeks and follow-up outpatient and can have MRI at that time if not improving but no need for current intervention and this is most likely a subacute hematoma. Lastly he was found to have a small pleural-based patchy opacity in the left pulmonary apex for which outpatient pulmonology follow-up was recommended. Discharge instructions for patient as follows: DISCHARGE INSTRUCTIONS PLEASE READ *Please take this with you to your next doctors appointment* -You will need to take?Protonix 40 mg twice daily for 8 weeks followed by once daily thereafter -You will need to take?Carafate 1 g 4 times daily for 8 weeks -You will be discharged on?lactulose 10 mg twice daily, this can be titrated to achieve 2-3 bowel movements a day -You will need to follow-up with Dr. Hennessy with GI in his office upon discharge.??Please call his office to schedule your hospital follow-up appointment (ph. [phone]) -Would recommend?lab work (CBC) to check your hemoglobin in 2 to 3 days through your primary care physician's office. Please call their office upon discharge to obtain order for lab work, if you do not have a primary care physician please contact the GI office to obtain order. -You will need to take doxycycline 100 mg twice daily for 2 weeks and follow-up with orthopedic surgery in the office for your elbow.? If you are not improving you may need an MRI -Please follow-up with pulmonology upon discharge due to a small spot seen on your lung that may require follow-up imaging or further assessment.??Please call their office to schedule an appointment upon discharge. -Your thyroid function was somewhat low, would recommend repeating this on an outpatient basis - It is strongly advised that you refrain from any substance use.? Please call [facility] located at [address] [place] [id number] (ph [phone]) if you are interested in further resources -Please call your primary care provider's office upon discharge to schedule a hospital follow up within 1 week. -If you do not have a primary care physician of list of local primary care physicians can be provided for you upon discharge.? Please ask for this list prior to discharge -For any concerning signs or symptoms please call 911 or proceed to the nearest emergency department Physical Exam Narrative General: Alert, oriented HEENT: Atraumatic, normocephalic Eyes: Anicteric, normal conjunctiva, extraocular movements grossly intact Neck: Supple Respiratory: Clear to auscultation bilaterally, normal respiratory effort Cardiovascular: Regular rate and rhythm GI: Soft, nontender, nondistended Extremities: Sitting in chair, moving all extremities Musculoskeletal: Moving all extremities Neuro: No overt focal neurological deficits Skin: No rashes appreciated Psych: Fairly appropriate today Weight / BMI Weight Weight: 78.7 kg Body Mass Index (BMI) 24.8 ABG / Lab / Microbiology Data Result Diagrams: 12/23/22 05:46 12/23/22 05:46 Laboratory: Laboratory Results - last 24 hr 12/22/22 06:00: HIV 1&2 Antibody Non-Reactive 12/23/22 05:46: WBC 3.2 L, RBC 2.53 L, Hgb 7.9 L, Hct 24.0 L, MCV 94.9 H, MCH 31.2, MCHC 32.9, RDW Std Deviation 52.1 H, RDW Coeff of Jesus 15.1 H, Plt Count 225, MPV 9.5, Immature Gran % (Auto) 0.600, Neut % (Auto) 64.3, Lymph % (Auto) 13.2 L, [place] % (Auto) 17.4 H, Eos % (Auto) 3.2, Baso % (Auto) 1.3 H, Absolute Neuts (auto) 2.0, Absolute Lymphs (auto) 0.42 L, Nucleated RBC % 0, Diff Path Review November12/23/22 05:46: Sodium 137, Potassium 4.1, Chloride 105, Carbon Dioxide 30.0, Anion Gap 2 L, BUN 7, Creatinine 0.86, Estim Creat Clear Calc 87.24, Est GFR (MDRD) Af Amer 114, Est GFR (MDRD) Non-Af 94, BUN/Creatinine Ratio 8.1 L, Glucose 141 H, Calcium 7.8 L, Total Bilirubin 0.20, AST 22, ALT 17, Alkaline Phosphatase 107, Total Protein 4.8 L, Albumin 1.9 L, Globulin 2.9, Albumin/Globulin Ratio 0.7 L Microbiology: Microbiology 12/12/22 22:14 Mucosa - Nasopharyngeal Respiratory Panel (PCR) - Final 12/12/22 20:35 Stool Stool Occult Blood (VENKATA) - Final Occult Blood Positive D/C Instructions Discharge Diet: No restrictions Meaningful Use Info Meaningful Use Diagnoses (Choose all that apply): None applicable Discharge Plan Admission Admit Date/Time: 12/12/22 22:05 Primary Reason for Your Visit: Black stools and weakness Attending Provider: Natalie Dailey Consulting Providers: Natty Guerrero ; Galen Souza ; Chau Schmitz Instructions Patient Instructions: ED Upper GI Bleeding (Stable) Additional Instructions / Restrictions: DISCHARGE INSTRUCTIONS PLEASE READ *Please take this with you to your next doctors appointment* -You will need to take Protonix 40 mg twice daily for 8 weeks followed by once daily thereafter -You will need to take Carafate 1 g 4 times daily for 8 weeks -You will be discharged on lactulose 10 mg twice daily, this can be titrated to achieve 2-3 bowel movements a day -You will need to follow-up with Dr. Hennessy with GI in his office upon discharge. Please call his office to schedule your hospital follow-up appointment (ph. [phone]) -Would recommend lab work (CBC) to check your hemoglobin in 2 to 3 days through your primary care physician's office. Please call their office upon discharge to obtain order for lab work, if you do not have a primary care physician please contact the GI office to obtain order. -You will need to take doxycycline 100 mg twice daily for 2 weeks and follow-up with orthopedic surgery in the office for your elbow. If you are not improving you may need an MRI -Please follow-up with pulmonology upon discharge due to a small spot seen on your lung that may require follow-up imaging or further assessment. Please call their office to schedule an appointment upon discharge. -Your thyroid function was somewhat low, would recommend repeating this on an outpatient basis - It is strongly advised that you refrain from any substance use. Please call [facility] located at [address] [place] [id number] (ph [phone]) if you are interested in further resources -Please call your primary care provider's office upon discharge to schedule a hospital follow up within 1 week. -If you do not have a primary care physician of list of local primary care physicians can be provided for you upon discharge. Please ask for this list prior to discharge -For any concerning signs or symptoms please call 911 or proceed to the nearest emergency department Discharge Orders/Prescriptions Prescriptions: New doxycycline hyclate 100 mg tablet 100 mg PO BID 13 Days Qty: 26 0RF pantoprazole [Protonix] 40 mg tablet,delayed release (DR/EC) 40 mg PO BID 30 Days Qty: 60 1RF sucralfate 1 gram tablet 1 g PO Q6H 30 Days Qty: 120 0RF lactulose 20 gram/30 mL Solution 10 g PO BID 30 Days Qty: 900 0RF Referrals / Follow Up: Primary care, physician [Other] - See Referral Note (-If you do not have a primary care physician of list of local primary care physicians can be provided for you upon discharge. Please ask for this list prior to discharge) [facility] [Provider Group] - See Referral Note (Please follow-up with pulmonology upon discharge. Please call their office to schedule an appointment upon discharge.) Chau Schmitz DO [Med Staff - Active Staff] - Within 2 Weeks Ender Hennessy DO [Med Staff - Active Staff] - See Referral Note (You will need to follow-up with Dr. Hennessy with GI in his office upon discharge. Please call his office to schedule your hospital follow-up appointment (ph. [phone])) Disposition Disposition (needs filled in before D/C Order can be placed): Home Health Service Charges/Coding Visit Charges Inpatient E&M: 03894 Disch Hosp >30min
[2022-12-23] MEDS: Folic Acid 1 MG Tablet PO (08:35)
[2022-12-23] MEDS: Thiamine Hydrochloride 100 MG Tablet PO (08:35)
[2022-12-23 08:45] VITALS: BP 132/68; PULSE 70; RESP 16; TEMP 37.2; O2SAT 98
[2022-12-23 10:00] VITALS: RESP 18
[2022-12-23 13:51] VITALS: BP 120/66; PULSE 70; RESP 18; TEMP 36.9; O2SAT 98
[2022-12-26 12:03] LABS: Pathologist Review Reviewed
== END 2022-12-23 13:45 | disposition home health service (06) | DRG 378 ==
LOC: ED 22:05 → PCU 22:27 → ICU 12-14 20:58 → MS3 12-18 15:19
PROVIDERS: Internal Medicine Gastroenterology; Admitting Provider Family Medicine; Emergency Provider Student in an Organized Health Care Education/Training Program; Visit Provider Internal Medicine
PROC: 0DJ08ZZ Inspection of Upper Intestinal Tract, Via Natural or Artificial Opening Endoscopic (ICD-10-PCS; CPT 43235; principal; 2022-12-13 16:25)
DX: K26.4 Chronic or unspecified duodenal ulcer with hemorrhage (principal); D62 Acute posthemorrhagic anemia; F10.131 Alcohol abuse with withdrawal delirium; E87.0 Hyperosmolality and hypernatremia; E87.1 Hypo-osmolality and hyponatremia; E87.20 Acidosis, unspecified; K70.0 Alcoholic fatty liver; L89.022 Pressure ulcer of left elbow, stage 2; S50.02XA Contusion of left elbow, initial encounter; F17.220 Nicotine dependence, chewing tobacco, uncomplicated; W19.XXXA Unspecified fall, initial encounter; F41.9 Anxiety disorder, unspecified; K21.9 Gastro-esophageal reflux disease without esophagitis; E86.1 Hypovolemia; K44.9 Diaphragmatic hernia without obstruction or gangrene; F32.A Depression, unspecified; K29.51 Unspecified chronic gastritis with bleeding; K29.81 Duodenitis with bleeding; R55 Syncope and collapse; R91.8 Other nonspecific abnormal finding of lung field; R53.81 Other malaise; R45.850 Homicidal ideations; Y90.1 Blood alcohol level of 20-39 mg/100 ml; Z79.899 Other long term (current) drug therapy; Z85.818 Personal history of malignant neoplasm of other sites of lip, oral cavity, and pharynx; Z92.21 Personal history of antineoplastic chemotherapy; Z80.0 Family history of malignant neoplasm of digestive organs
CPT/HCPCS: 36415; 70450; 71045; 71260; 73080; 74177; 76882; 80048; 80053; 80076; 80307; 81001; 82077; 82140; 82274; 82607; 82746; 83605; 83690; 83735; 84100; 84439; 84443; 84481; 84484; 85018; 85025; 85027; 85610; 86703; 86780; 86850; 86900; 86901; 86920; 86922; 87633; 88305; 88342; 93005; 94762; 97110; 97162; 97166; 97530; 97535; 97802; 99285; 99406; J7030; J7040; P9016; Q9967; A4216; J2405; J3490

== ENCOUNTER 2023-01-05 15:21 | Inpatient (IN) | payer MEDICARE, SELFPAY ==
[2023-01-05 15:23] VITALS: BP 140/86; PULSE 129; RESP 19; TEMP 36.6; O2SAT 99; BMI 23.8
[2023-01-05 16:29] LABS: Absolute Lymphocyte Count 0.24 X10^3/uL (0.83-4.51); Basophil# 0.05 X10^3/uL; Basophil% 1.1 % (0-1); Eosinophil# 0.31 X10^3/uL; Eosinophils% 6.6 % (0-5); Hematocrit 36.1 % (40-54); Lymphocyte # 0.24 X10^3/ul (0.83-4.51); Lymphocyte % 5.1 % (19-41); Mean Corp Hgb Conc 33.2 g/dL (32-36); Mean Corpuscular Hgb 30.8 pg (27.0-32.0); Mean Corpuscular Volume 92.6 fL (80-94); Mean Platelet Vol. 9.5 fl (6.2-12.0); Monocyte# 0.13 X10^3/uL; Monocyte% 2.7 % (0-10); NRBC Flagged by Analyzer 0 % (0-5); Neutrophil # 3.98 X10^3/uL (2.7-7.7); Neutrophil % 84.1 % (47-70); POSITIVE DIFFERENTIAL YES; Platelet Count 436 K/mm3 (150-450); RBC Distribution Width CV 14.3 % (11.6-14.6); RBC Distribution Width SD 47.8 fl (35.1-43.9); White Blood Count 4.7 K/mm3 (4.4-11.0)
--- NOTE | 2023-01-05 16:31 | EKG12_ITS ---
Test Reason : NAUSEA Blood Pressure : / mmHG Vent. Rate : 098 BPM Atrial Rate : 098 BPM P-R Int : 146 ms QRS Dur : 078 ms QT Int : 356 ms P-R-T Axes : 076 047 068 degrees QTc Int : 454 ms Normal sinus rhythm Normal ECG Confirmed by LOVELY BERNAL, MARTITA ([id number]), writer editor BREANN CORNEJO ([id number]) on 01/08/2023 1:39:09 PM Referred By: Confirmed By:MARTITA MURRY MD
--- NOTE | 2023-01-05 16:34 | EX.ED.DYSGE1 ---
HPI History of Present Illness Chief Complaint: Nausea/Vomiting/Diarrhea Detail of Chief Complaint: Nausea, vomiting diarrhea, shakes and I feel like shit . Informant: patient and family (Niece brought him to the emergency room after her uncle contacted her.) Onset/Context/Timing Onset: Today (Today nausea, vomiting diarrhea) and Days (Has not had anything other than alcohol since he was discharged from the hospital. He has not had an alcoholic beverage in 24 hours.) Context: Sudden Onset Timing: Continuous (Shakes or continuous) and Intermittent (Nausea, vomiting diarrhea) Quality: Patient presents because he does not feel well. HPI narrative Location: Generalized Current Severity: Moderate Maximum Severity: Severe Worsened by: Nothing specific per patient Relieved by: Nothing Associated Symptoms Associated Symptoms: Per HPI narrative Narrative Narrative: Patient is a 67-year-old male who admits to 5 to 612 ounce cans of beer a day. He was recently admitted for GI bleed. He required transfusion. He also had alcohol withdrawal and hyperosmolarity and hyponatremia. 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 He also has a stage II pressure ulcer noted. His history of cancer is tonsillar. According to the niece he has not had anything other than alcohol to drink since discharge on December 23. Patient admits to 4-6 beers per day. He lives with his brother. His brother contact his niece who brought him to the emergency department. He reports that he feels terrible. He does endorse thirst dry mouth and orthostatic symptoms. He states he has vomited 20 times today and according to niece has a bilious appearance. His stool is watery and light green in color. There was no blood or mucus noted. There is no odor. He denies fever but does report chills and tremors. He apparently gets tremors when he decreases his alcohol consumption or stops. He denies headache, visual, ocular auditory symptoms. He denies trouble with speech or swallowing. He does have a slight cough. He denies shortness of breath. He denies chest discomfort. He denies hematemesis or coffee-ground appearing emesis. Prior similar symptoms: No Recent Illness/Hospitalization: Yes [facility] Medical History Acute blood loss anemia Alcohol withdrawal Anxiety and depression Chewing tobacco use ETOH abuse GI bleed History of cancer tonsil Hyponatremia Home Medications doxycycline hyclate 100 mg tablet 100 mg PO BID 13 days #26 tabs 12/23/22 [Rx Last Taken 01/05/23] lactulose 20 gram/30 mL oral solution 10 g (15 mL) PO BID 30 days #900 mL 12/23/22 [Rx Last Taken 01/05/23] pantoprazole 40 mg tablet,delayed release (Protonix) 40 mg PO BID 30 days #60 tabs 12/23/22 [Rx Last Taken 01/05/23] sucralfate 1 gram tablet 1 g PO Q6H 30 days #120 tabs 12/23/22 [Rx Last Taken 01/05/23] Allergy/AdvReac Type Severity Reaction Status Date / Time No Known Allergies Allergy Verified 12/12/22 18:23 Family History Mother Diabetes Father Diabetes Brother Colon cancer Surgical History History of tonsillectomy and adenoidectomy Social History household members: other details: Lives with his son. Smoking Status: Former smoker Smokeless tobacco user: chewing tobacco and other alcohol intake: current alcohol intake frequency: 3 or more drinks per day details: 8-10 beers daily coupled with hard liquor. substance use type: does not use ROS ROS ED Constitutional Constitutional ED: Reports sweats and weight loss; Denies chills, fever(s) or subjective Eyes Eyes: Denies blurry vision, change in vision or diplopia ENT ENT ED: Denies ear pain, rhinorrhea or sore throat Cardiovascular Cardiovascular: Reports palpitations and racing heartbeat; Denies chest pain, orthopnea or paroxysmal nocturnal dyspnea Respiratory/Chest Respiratory/Chest: Reports cough; Denies dyspnea, dyspnea on exertion, orthopnea or paroxysmal nocturnal dyspnea Gastrointestinal Gastrointestinal: Reports diarrhea, nausea and vomiting; Denies abdominal pain, constipation or melena Genitourinary Genitourinary ED: Denies dysuria or urinary frequency Musculoskeletal Musculoskeletal: Denies arthralgias, back pain, myalgias or neck pain Integumentary Denies abscess or Abrasions Neurologic Neurologic: Reports weakness; Denies headache(s) or paresthesias Psychiatric Psychiatric: Reports anxiety Endocrine Endocrinology: Denies cold intolerance or heat intolerance Hematologic/Lymphatic Hematologic/Lymphatic: Reports systems reviewed and no addt'l complaints, except as documented EXAM Physical Exam Narrative Exam Narrative: Vital signs are remarkable for tachycardia and slight hypertension. Suspect this is due to alcohol withdrawal and dehydration. Const Vital Signs: 01/05/23 15:23 01/05/23 18:20 Temperature 97.9 F Temperature Source Temporal Pulse Rate 129 H Respiratory Rate 19 H Blood Pressure 140/86 H 150/74 H Blood Pressure Mean 104 99 Pulse Ox 99 Oxygen Delivery Method Room Air Room Air Positive well developed and unkempt Constitutional Narrative: Patient has stains on his T-shirt. According to niece this is due to feces and emesis. General Appearance ED: unkempt and well developed; Negative for cyanotic, diaphoretic, NAD or pallor HEENT Reports dry mucous membranes HEENT Narrative: Head is atraumatic normocephalic. Ears are normal. Nares are patent. Mucosa is dry. Uvula is midline. There is no deviation with protrusion. Mouth ED: Yes dry mucous membranes Mouth: dry mucous membranes Eyes PERRL Eyes Narrative: There is no nystagmus. General Eye ED: Negative for pale conjunctiva or scleral icterus Neck no lymphadenopathy, supple and no JVD Chest Wall inspection of chest normal and palpation of chest normal Resp normal respiratory effort and clear to auscultation bilaterally Cardio regular rhythm, S1 normal heart sound, S2 normal heart sound and no murmurs Rate: tachycardic GI non-distended and no masses; Negative for non-tender or hepatosplenomegaly GI Narrative: Bowel sounds are slightly increased. There is slight tympany cautioned. Palpation: soft and tender epigastric Back/Spine no CVA tenderness Extremity Extremity Narrative: There is slight mottling noted. There is no acrocyanosis or clubbing noted. Neuro oriented x3, CN's II-XII intact bilaterally and no sensory deficits noted Neuro Narrative: Awake but not necessarily alert. Patient does have 6-7 beats of clonus at the ankle. Negative Babinski sign right and left. Reflexes are brisk. He does have significant tremors. Motor Exam: strength 5/5 throughout Psych Appearance: unkempt Mood & Affect: depressed Skin no wounds and No skin turgor normal General Skin Exam: Negative for elasticity normal, jaundice or pallor MDM MDM MDM Narrative Medical decision making narrative: In light of review of prior records need to evaluate for liver dysfunction, and specifically coagulopathy, electrolytes, CBC and differential as well as H&H. Concern patient is dehydrated will administer 1 L normal saline. He also was treated with thiamine since he has not had any food since December 23 and 100 mg of phenobarbital IV push since in my opinion patient is going through withdrawal. Patient and niece were informed that he will require admission to the hospital. History & Record Review Discussion w/independent historian: Patient and Family Additional record(s) reviewed:: Prior inpatient record, Prior ED visit and Prior labs Lab Data Attestation: I reviewed the patient's lab results. Lab results narrative: CBC reveals mild anemia with normal indices. Comprehensive metabolic panel is remarkable for a sodium of 4 which is slightly low. Creatinine is elevated 1.32 with a GFR of 58. Glucose is slightly elevated 123 with a normal CO2 and anion gap. AST and alkaline phosphatase are slightly elevated. Lipase is normal. PT/INR was redrawn. Hemoglobin is much improved from prior results. Creatinine is elevated from prior which was 0.86. Alcohol level is nondetected which supports diagnosis of alcohol withdrawal Labs: Laboratory Results - last 24 hr 01/05/23 01/05/23 01/05/23 16:15 16:15 16:15 WBC 4.7 RBC 3.90 L Hgb 12.0 L Hct 36.1 L MCV 92.6 MCH 30.8 MCHC 33.2 RDW Std Deviation 47.8 H RDW Coeff of Jesus 14.3 Plt Count 436 MPV 9.5 Immature Gran % (Auto) 0.400 Neut % (Auto) 84.1 H Lymph % (Auto) 5.1 L [place] % (Auto) 2.7 Eos % (Auto) 6.6 H Baso % (Auto) 1.1 H Absolute Neuts (auto) 4.0 Absolute Lymphs (auto) 0.24 L Nucleated RBC % 0 Differential Comment SCANNED PT INR Sodium 134 L Potassium 5.1 Chloride 98 Carbon Dioxide 23.0 Anion Gap 13 BUN 7 Creatinine 1.32 H Estim Creat Clear Calc 55.05 Est GFR (MDRD) Af Amer 70 Est GFR (MDRD) Non-Af 58 L BUN/Creatinine Ratio 5.3 L Glucose 123 H Calcium 9.6 Total Bilirubin 0.70 AST 42 H ALT 23 Alkaline Phosphatase 150 H Total Protein 7.9 Albumin 3.3 Globulin 4.6 H Albumin/Globulin Ratio 0.7 L Lipase 36 Ethyl Alcohol 01/05/23 01/05/23 01/05/23 17:10 17:10 18:12 WBC RBC Hgb Hct MCV MCH MCHC RDW Std Deviation RDW Coeff of Jesus Plt Count MPV Immature Gran % (Auto) Neut % (Auto) Lymph % (Auto) [place] % (Auto) Eos % (Auto) Baso % (Auto) Absolute Neuts (auto) Absolute Lymphs (auto) Nucleated RBC % Differential Comment PT Cancelled 15.2 H INR Cancelled 1.2 Sodium Potassium Chloride Carbon Dioxide Anion Gap BUN Creatinine Estim Creat Clear Calc Est GFR (MDRD) Af Amer Est GFR (MDRD) Non-Af BUN/Creatinine Ratio Glucose Calcium Total Bilirubin AST ALT Alkaline Phosphatase Total Protein Albumin Globulin Albumin/Globulin Ratio Lipase Ethyl Alcohol < 3.0 Rhythm Strip Rhythm Strip: Sinus Tach Rate: 105 EKG Initial EKG: Attestation: I personally reviewed and interpreted this EKG as follows: Interpretation: Sinus Rhythm (Rate is 98. KS interval is 146 ms. Cures duration 78 ms. QT duration 256 ms. [place] is normal. There is no acute ischemic changes.) Discharge Plan Triage Chief Complaint: Nausea/Vomiting/Diarrhea ED Provider: Daniel Inman Dx/Rx/DC Orders Clinical Impression: Alcohol withdrawal, Sinus tachycardia, Elevated serum creatinine, Mild dehydration, At high risk for malnutrition, Acute renal insufficiency Prescriptions: No Action doxycycline hyclate 100 mg tablet 100 mg PO BID 13 Days Qty: 26 0RF pantoprazole [Protonix] 40 mg tablet,delayed release (DR/EC) 40 mg PO BID 30 Days Qty: 60 1RF sucralfate 1 gram tablet 1 g PO Q6H 30 Days Qty: 120 0RF lactulose 20 gram/30 mL Solution 10 g PO BID 30 Days Qty: 900 0RF Primary Care Provider: Rena Springer Referrals: Care Physician,No Primary [Non-Staff] -
[2023-01-05 16:49] LABS: ALB/GLOB Ratio 0.7 RATIO (0.9-2.4); AST(SGOT) 42 U/L (15-37); Alanine Aminotransfer ALT/SGPT 23 U/L (16-61); Albumin, Serum 3.3 g/dL (3.2-5.0); Alkaline Phosphatase 150 U/L (45-117); Anion Gap 13 (5-15); BUN 7 mg/dL (7-18); BUN/Creat Ratio 5.3 RATIO (10-20); Calcium,Total 9.6 mg/dL (8.5-10.1); Chloride 98 mmol/L (98-107); Creatinine, Serum 1.32 mg/dL (0.70-1.30); EST Glomerular Filtration Rate 58 mL/min (>60); Est Glom Filt Rate - Afr Amer 70 mL/min (>60); Estimated Creatinine Clearance 55.05 ml/min; Globulin 4.6 g/dL (2.2-4.2); Glucose 123 mg/dL (74-106); Potassium 5.1 mmol/L (3.5-5.1); Protein, Total 7.9 g/dL (6.4-8.2); Sodium Level 134 mmol/L (136-145)
[2023-01-05] MEDS: Phenobarbital Sodium 130 MG/ML Vial 100 MG IV (17:02)
[2023-01-05] MEDS: Ondansetron 4 MG/2 ML Vial IV (17:02)
[2023-01-05] MEDS: 0.9% Normal Saline 1,000 ML 1000 ML IV (17:02)
[2023-01-05 17:04] LABS: Differential Indicated SCAN CRITERIA MET
[2023-01-05 17:05] LABS: Differential Comment SCANNED
[2023-01-05 17:42] LABS: Lipase 36 U/L (13-75)
[2023-01-05 18:20] VITALS: BP 150/74
[2023-01-05 18:22] LABS: Alcohol, Blood (Medical)-Serum < 3.0 mg/dL
[2023-01-05] MEDS: 0.9% Normal Saline 1,000 ML 150 ML IV (18:23)
[2023-01-05 18:36] LABS: International Normalized Ratio 1.2; Prothrombin Time (Protime)PT. 15.2 SECONDS (11.7-14.9)
--- NOTE | 2023-01-05 18:49 | HP.PCM.HOS_ITS ---
[facility] - General General Date of Admission: 01/05/23 Date of Service: 01/05/23 Chief Complaint: Acute alcohol withdrawal syndrome after recent discharge after management of GI bleed [facility] Narrative MIRNA JEFFRIES, is a 67 M with history of chronic alcohol use disorder was brought by her niece as patient was having a cold alcohol withdrawal symptoms. Patient drinks 5-6 bottles of 12 ounce cans of beer every day. He started drinking back after discharge. Prior to last admission, he was drinking whiskey half bottle daily. Patient is having shivering tremors and restlessness. Patient was given phenobarbital in ED and he felt better and then wanted to go home. After discussion of risk and benefit he understood and wanted to stay for further treatment. Patient was recently admitted from 12/12/2022 to 12/23/2022 for severe anemia hemoglobin 6.3 that required 4 units of PRBC transfusion and 2 EGDs and treatment. [facility] Medical History Acute blood loss anemia Alcohol withdrawal Anxiety and depression Chewing tobacco use ETOH abuse GI bleed History of cancer tonsil Hyponatremia Home Medications doxycycline hyclate 100 mg tablet 100 mg PO BID 13 days #26 tabs 12/23/22 [Rx Last Taken 01/05/23] lactulose 20 gram/30 mL oral solution 10 g (15 mL) PO BID 30 days #900 mL 12/23/22 [Rx Last Taken 01/05/23] pantoprazole 40 mg tablet,delayed release (Protonix) 40 mg PO BID 30 days #60 ta bs 12/23/22 [Rx Last Taken 01/05/23] sucralfate 1 gram tablet 1 g PO Q6H 30 days #120 tabs 12/23/22 [Rx Last Taken 01/05/23] Allergy/AdvReac Type Severity Reaction Status Date / Time No Known Allergies Allergy Verified 12/12/22 18:23 Family History Mother Diabetes Father Diabetes Brother Colon cancer Surgical History History of tonsillectomy and adenoidectomy Social History household members: other details: Lives with his son. Smoking Status: Former smoker Smokeless tobacco user: chewing tobacco and other alcohol intake: current alcohol intake frequency: 3 or more drinks per day details: 8-10 beers daily coupled with hard liquor. substance use type: does not use ROS ROS Narrative Constitutional: Reports fatigue and weakness. No fever. HEENT: Reports systems reviewed and no addt'l complaints, except as documented Respiratory/Chest: No acute shortness of breath or respiratory distress or wheezing. CVS: No chest pain or tightness. Denies palpitation. Gastrointestinal: Denies coffee ground emesis, hematemesis or vomiting after recent discharge. Genitourinary: Denies burning urination or new urinary tract symptoms Musculoskeletal: Denies acute joint pain or limited range of motion. No acute injury Neurologic: Denies seizure-like symptoms. Strokelike symptoms. skin: Easy bruisability and multiple bruises on hands. Endocrinology: Reports systems reviewed and no addt'l complaints, except as documented Hematologic/Lymphatic: Reports systems reviewed and no addt'l complaints, except as documented Rest 14 ROS are negative except as mentioned in HPI Vital Signs Vital Signs Vital Signs: 01/05/23 15:23 01/05/23 18:20 Temperature 97.9 F Temperature Source Temporal Pulse Rate 129 H Respiratory Rate 19 H Blood Pressure 140/86 H 150/74 H Blood Pressure Mean 104 99 Pulse Ox 99 Oxygen Delivery Method Room Air Room Air Weight Weight: 161 lb Body Mass Index (BMI) 23.8 Physical Exam Narrative General: Alert, Oriented x3, Cooperative HEENT: Atraumatic, PERRLA, EOMI, Normocephalic Oral: Oral mucosa dry. No Gingival or Mucosal Lesions/ Ulcerations Neck: Supple, No JVD, Negative Carotid Bruits Lungs: Air entry diminished in bilateral lung bases. No crepitation/rhonchi Cardiovascular: Sinus tachycardia, normal S1, Normal S2, No murmurs Abdomen: Bowel Sounds Present, Soft, Non Tender, Non-Distended. Liver not enlarged. No fluid thrill/ascites. : No renal angle tenderness. No suprapubic tenderness. Extremities: Mild induration/soft tissue hardness over posterior aspect of left arm. No tenderness redness or fluctuation.. No edema, Capillary Refill Less than 3 Seconds Skin: Multiple subcutaneous bruises over bilateral forearm. Easy bruisability, chronic for last 3 to 4 years. Musculoskeletal: No Tenderness to Palpation of Joints or Extremities. ROM intact. Neurological: Cranial nerves II-XII grossly intact, DTR 2+/4 and Symmetrical, tremors in both hands/generalized tremors Psych/Mental Status: Flat affect. Chronic alcohol use Results Lab / Micro Data Result Diagrams: 01/05/23 16:15 01/05/23 16:15 Labs: Laboratory Results - last 24 hr 01/05/23 16:15: WBC 4.7, RBC 3.90 L, Hgb 12.0 L, Hct 36.1 L, MCV 92.6, MCH 30.8, MCHC 33.2, RDW Std Deviation 47.8 H, RDW Coeff of Jesus 14.3, Plt Count 436, MPV 9.5, Immature Gran % (Auto) 0.400, Neut % (Auto) 84.1 H, Lymph % (Auto) 5.1 L, [place] % (Auto) 2.7, Eos % (Auto) 6.6 H, Baso % (Auto) 1.1 H, Absolute Neuts (auto) 4.0, Absolute Lymphs (auto) 0.24 L, Nucleated RBC % 0, Differential Comment SCANNED 01/05/23 16:15: Sodium 134 L, Potassium 5.1, Chloride 98, Carbon Dioxide 23.0, Anion Gap 13, BUN 7, Creatinine 1.32 H, Estim Creat Clear Calc 55.05, Est GFR (MDRD) Af Amer 70, Est GFR (MDRD) Non-Af 58 L, BUN/Creatinine Ratio 5.3 L, Glucose 123 H, Calcium 9.6, Total Bilirubin 0.70, AST 42 H, ALT 23, Alkaline Phosphatase 150 H, Total Protein 7.9, Albumin 3.3, Globulin 4.6 H, Albumin/Globulin Ratio 0.7 L 01/05/23 16:15: Lipase 36 01/05/23 17:10: PT Cancelled, INR Cancelled 01/05/23 17:10: Ethyl Alcohol < 3.0 01/05/23 18:12: PT 15.2 H, INR 1.2 Rhythm Strip Rhythm Strip: Sinus Tach Rate: 105 Assessment & Plan Assessment/Plan (1) Alcohol withdrawal: PLAN: Plan This is a 67-year-old gentleman being admitted for acute alcohol withdrawal syndrome. 1. Acute alcohol withdrawal syndrome with history of chronic alcohol use, dependence and relapse: [facility] Patient was given phenobarbital 100 mg IV 1 dose in ED along with thiamine 100 mg IV. He felt better and wanted to go home but was convinced to stay after explaining risk and benefit. Patient on phenobarbital based order set along with other adjunctive medications as needed for alcohol withdrawal symptom control. CIWA monitor. real estate transaction manager consulted. 2. Recent severe acute upper GI bleed with anemia of chronic disease: Patient was recently admitted between 12/12/2022 to 12/23/2022 for acute upper GI bleed. Patient was severely anemic hemoglobin 6.2 and had 4 units of PRBC was transfused. Had EGD on 12/14 found to have esophageal mucosal changes suspicious for Mendez's esophagus, chronic gastritis, duodenitis and 1 oozing duodenal ulcer with visible vessel which was injected. He was on Protonix drip octr eotide drip. Repeat EGD on 12/21 showed long segment of Mendez's esophagus, multiple oozing duodenal ulcers with visible vessel which was injected and treated with heater probe, acute gastritis. Patient was also on Precedex drip and phenobarbital during last hospital stay. Patient hemoglobin is improved now 12.0. Platelet count 136,000. Recent lab work during last admission cells B12 190, folic acid 7.1. Iron work-up ordered. 3. Chronic alcoholic hepatitis: Intermittent increase in AST alkaline phosphatase. Today AST 42, ALT 23 and alkaline phosphatase 150. Total bilirubin normal. 4. Moderate hypotonic, isovolemic hyponatremia probably related to chronic alcohol use/beer potomania due to low solute intake and: On IV fluid normal saline. Monitor serum sodium 5. Anxiety and depression: Chronic history. 6. Left upper arm soft tissue complex collection 8.7 x 1.7 x 4.8 cm on ultrasound. Hematoma was ruled out gross thought of possible abscess/infectious process. Orthopedic surgery was consulted at that time and was improving therefore continued on doxycycline. Plan was to continue for 2 weeks and follow-up with orthopedic surgery as an outpatient for outpatient MRI. On exam and review of discharge summary it seems the size is decreased and patient also affirms it. No tenderness or signs of acute inflammation or infection. Patient stated that he is taking doxycycline but has some pills left over. Doxycycline continued. Living will/advanced directive/end of life care: Patient does not have living will or advanced directive. After discussion of benefits/risks procedures involved with full code, DNR CC arrest and DNR CC, the patient opted for full code. Patient does want artificial life support including intubation, tube feed, ventilator and/chest compression, central venous catheter, vasopressor and DC shock if needed Total time spent in [id number] encounter in discussion of advanced directive 17 minutes. Laboratory Results 01/05/23 16:15: WBC 4.7, RBC 3.90 L, Hgb 12.0 L, Hct 36.1 L, MCV 92.6, MCH 30.8, MCHC 33.2, RDW Std Deviation 47.8 H, RDW Coeff of Jesus 14.3, Plt Count 436, MPV 9.5, Immature Gran % (Auto) 0.400, Neut % (Auto) 84.1 H, Lymph % (Auto) 5.1 L, [place] % (Auto) 2.7, Eos % (Auto) 6.6 H, Baso % (Auto) 1.1 H, Absolute Neuts (auto) 4.0, Absolute Lymphs (auto) 0.24 L, Nucleated RBC % 0, Differential Comment SCANNED 01/05/23 16:15: Sodium 134 L, Potassium 5.1, Chloride 98, Carbon Dioxide 23.0, Anion Gap 13, BUN 7, Creatinine 1.32 H, Estim Creat Clear Calc 55.05, Est GFR (MDRD) Af Amer 70, Est GFR (MDRD) Non-Af 58 L, BUN/Creatinine Ratio 5.3 L, Glucose 123 H, Calcium 9.6, Total Bilirubin 0.70, AST 42 H, ALT 23, Alkaline Phosphatase 150 H, Total Protein 7.9, Albumin 3.3, Globulin 4.6 H, Albumin/Globulin Ratio 0.7 L 01/05/23 16:15: Lipase 36 01/05/23 17:10: PT Cancelled, INR Cancelled 01/05/23 17:10: Ethyl Alcohol < 3.0 01/05/23 18:12: PT 15.2 H, INR 1.2 Charges/Coding Visit Charges Inpatient E&M: 84960 Init Hosp L3 Procedures Hospitalists Procedures: 65206 Advncd Care Plan 30 Min
[2023-01-05 19:03] VITALS: BP 141/74; PULSE 96; RESP 19; TEMP 37.2; O2SAT 98
[2023-01-05 20:50] LABS: Iron 99 ug/dL (65-175); Iron Binding Capacity,Total 248 ug/dL (250-450); PERCENT IRON SATURATION 39.9 % (15.0-55.0)
[2023-01-05 21:37] VITALS: BMI 23.5
[2023-01-05] MEDS: 0.9% Normal Saline 1,000 ML 75 ML IV (21:56)
[2023-01-05 22:03] VITALS: BP 152/75; PULSE 95; RESP 18; TEMP 37; O2SAT 96
[2023-01-05] MEDS: Pantoprazole Sodium 40 MG Tablet PO (22:15)
[2023-01-05] MEDS: Phenobarbital 32.4 MG Tablet 64.8 MG PO (22:15)
[2023-01-05] MEDS: Sucralfate 1 GM Tablet PO (22:16)
[2023-01-05] MEDS: Doxycycline 100 MG CAPSULE PO (22:16)
[2023-01-05] MEDS: hydrOXYzine PAM 25 MG Capsule 50 MG PO (22:56)
[2023-01-05] MEDS: traZODone 100 MG Tablet PO (22:56)
[2023-01-05] MEDS: Lactulose 20 GM/30 ML UDC 10 GM PO (22:56)
[2023-01-06] MEDS: Phenobarbital 32.4 MG Tablet 64.8 MG PO ×6 (02:34→21:54)
[2023-01-06 02:43] VITALS: BP 139/74; PULSE 106; RESP 16; TEMP 37.2; O2SAT 99
[2023-01-06] MEDS: Sucralfate 1 GM Tablet PO ×4 (06:44→21:54)
[2023-01-06 06:54] VITALS: BP 132/70; PULSE 95; RESP 16; TEMP 37.2; O2SAT 100
[2023-01-06] MEDS: 0.9% Normal Saline 1,000 ML 75 ML IV (06:54)
[2023-01-06 07:23] LABS: Ferritin 421 ng/mL (26-388)
--- NOTE | 2023-01-06 08:55 | CASEMGMT ---
Social Work SW called Treatment Navigator with [facility] to see pt. ALLAN Joseph
[2023-01-06] MEDS: Pantoprazole Sodium 40 MG Tablet PO ×2 (10:12→21:54)
[2023-01-06] MEDS: Doxycycline 100 MG CAPSULE PO ×2 (10:12→21:54)
[2023-01-06] MEDS: Lactulose 20 GM/30 ML UDC 10 GM PO ×2 (10:12→21:54)
[2023-01-06] MEDS: Folic Acid 1 MG Tablet PO (10:12)
[2023-01-06] MEDS: Thiamine Hydrochloride 100 MG Tablet PO (10:13)
[2023-01-06 10:15] VITALS: BP 127/65; PULSE 94; RESP 18; TEMP 36.8; O2SAT 99
--- NOTE | 2023-01-06 13:27 | PN_ITS ---
Subjective Subjective Patient seen and examined. He had no active complaints. He had an uneventful night. Review of systems otherwise negative. Objective Data Objective Data Vital Signs: Vital Signs Temp Pulse Resp BP Pulse Ox O2 Del Method 98.3 F 94 18 127/65 H 99 Room Air 01/06/23 10:15 01/06/23 10:15 01/06/23 10:15 01/06/23 10:15 01/06/23 10:15 01/06/23 10:15 Oxygen Delivery Method Room Air Weight: 158 lb 11.725 oz Body Mass Index (BMI) 23.5 Intake & Output: Intake and Output for Last 24 Hours 01/04/23 01/05/23 01/06/23 23:59 23:59 23:59 Intake Total 1051 / 1051 2972.5 / 2972.5 Output Total 150 / 150 Balance 1051 / 1051 2822.5 / 2822.5 Lab / Micro Data Result Diagrams: 01/05/23 16:15 01/05/23 16:15 Labs: Laboratory Results - last 24 hr 01/05/23 16:15: WBC 4.7, RBC 3.90 L, Hgb 12.0 L, Hct 36.1 L, MCV 92.6, MCH 30.8, MCHC 33.2, RDW Std Deviation 47.8 H, RDW Coeff of Jesus 14.3, Plt Count 436, MPV 9.5, Immature Gran % (Auto) 0.400, Neut % (Auto) 84.1 H, Lymph % (Auto) 5.1 L, [place] % (Auto) 2.7, Eos % (Auto) 6.6 H, Baso % (Auto) 1.1 H, Absolute Neuts (auto) 4.0, Absolute Lymphs (auto) 0.24 L, Nucleated RBC % 0, Differential Comment SCANNED 01/05/23 16:15: Sodium 134 L, Potassium 5.1, Chloride 98, Carbon Dioxide 23.0, Anion Gap 13, BUN 7, Creatinine 1.32 H, Estim Creat Clear Calc 55.05, Est GFR (MDRD) Af Amer 70, Est GFR (MDRD) Non-Af 58 L, BUN/Creatinine Ratio 5.3 L, Glucose 123 H, Calcium 9.6, Total Bilirubin 0.70, AST 42 H, ALT 23, Alkaline Phosphatase 150 H, Total Protein 7.9, Albumin 3.3, Globulin 4.6 H, Albumin/Globulin Ratio 0.7 L 01/05/23 16:15: Lipase 36 01/05/23 16:15: Iron 99, TIBC 248 L, Iron Saturation 39.9 01/05/23 17:10: PT Cancelled, INR Cancelled 01/05/23 17:10: Ethyl Alcohol < 3.0 01/05/23 18:12: PT 15.2 H, INR 1.2 01/06/23 06:26: Ferritin 421 H Rhythm Strip Rhythm Strip: Sinus Tach Rate: 105 Physical Exam Const alert, oriented x3 and no apparent distress General Appearance: cooperative HEENT normocephalic, head/scalp atraumatic and moist oral mucous membranes Eyes PERRL and EOMs intact bilaterally Neck no lymphadenopathy and supple Lymph Lymphatic: no lymphadenopathy noted and no lymphedema noted Resp normal respiratory effort, normal air movement and clear to auscultation bilaterally Cardio regular rate, regular rhythm, S1 normal heart sound, S2 normal heart sound and no murmurs GI normal to inspection, nondistended, normoactive bowel sounds, soft to palpation and non-tender Extremity normal capillary refill, no clubbing, cyanosis or edema and no calf tenderness Skin General Skin Exam: no breakdown and turgor normal Neuro CN's II-XII intact bilaterally, no focal motor deficits, no sensory deficits noted and deep tendon reflexes 2+ bilaterally Psych thought process normal and cooperative Assessment & Plan Assessment/Plan (1) Alcohol withdrawal: PLAN: Plan #Acute alcohol withdrawal * on alcohol withdrawal protocol with phenobarbital * monitor CIWA score * On thiamine, folic acid and Multivite * * #History of upper GI bleed due to bleeding duodenal ulcers * EGD on 12/14/2022 showed Mendez's esophagus and chronic gastritis as well as duodenitis and a bleeding duodenal ulcer. * On PPI and sucralfate * #Chronic alcoholic hepatitis: Liver enzymes at baseline. We will continue to monitor. #Left upper extremity soft tissue swelling * Had ultrasound which showed a complex left upper tissue collection. Hematoma was ruled out and orthopedics reviewed patient and thought it may be due to infection * was placed on doxycycline for a total of 2 weeks; to follow up with orthopedic surgery on outpatient basis * #DVT prophylaxis: SCDs Charges/Coding Visit Charges Inpatient E&M: 80457 Subs Hosp L2
[2023-01-06 14:33] VITALS: BP 147/72; PULSE 81; RESP 18; TEMP 36.6; O2SAT 100
[2023-01-06 14:59] LABS: Amphetamine Urine VISTA NEGATIVE (<1000 ng/mL); Barbiturate Urine VISTA POSITIVE (< 200 ng/mL); Benzodiazepine Urine VISTA NEGATIVE (< 200 ng/mL); Cocaine Urine VISTA NEGATIVE (< 300 ng/mL); Ecstacy Urine VISTA NEGATIVE (< 500 ng/mL); Methadone Urine VISTA NEGATIVE (< 300 ng/mL); PCP Urine VISTA NEGATIVE (< 25 ng/mL); THC Urine VISTA NEGATIVE (< 50 ng/mL); Vista UDS pH Range 5
[2023-01-06] MEDS: Gabapentin 300 MG Capsule PO (17:02)
[2023-01-06 21:51] VITALS: BP 132/83; PULSE 81; RESP 18; TEMP 37.2; O2SAT 100
[2023-01-06] MEDS: traZODone 100 MG Tablet PO (21:55)
[2023-01-06] MEDS: Acetaminophen 500 MG Tablet PO (21:55)
--- NOTE | 2023-01-06 22:14 | NURSING ---
pt educated on DVT prevention and wearing SCDs, pt understands risks and refuses to wear SCDs at this time.
[2023-01-07 02:00] VITALS: BP 126/89; PULSE 79; RESP 18; TEMP 36.8; O2SAT 98
[2023-01-07] MEDS: Phenobarbital 32.4 MG Tablet 64.8 MG PO ×6 (02:07→21:30)
--- NOTE | 2023-01-07 02:21 | NURSING ---
updated pt without peripheral IV at this time. d/t RAMP pt can leave IV out.
[2023-01-07] MEDS: Sucralfate 1 GM Tablet PO ×4 (06:21→21:28)
[2023-01-07 06:22] VITALS: BP 115/64; PULSE 69; RESP 18; TEMP 36.7; O2SAT 98
[2023-01-07] MEDS: Lactulose 20 GM/30 ML UDC 10 GM PO ×2 (08:44→21:28)
[2023-01-07] MEDS: Folic Acid 1 MG Tablet PO (08:44)
[2023-01-07] MEDS: Doxycycline 100 MG CAPSULE PO ×2 (08:44→21:28)
[2023-01-07] MEDS: Pantoprazole Sodium 40 MG Tablet PO ×2 (08:45→21:30)
[2023-01-07] MEDS: Thiamine Hydrochloride 100 MG Tablet PO (08:46)
[2023-01-07] MEDS: hydrOXYzine PAM 25 MG Capsule 50 MG PO ×3 (08:51→21:29)
[2023-01-07 11:00] VITALS: BP 125/75; PULSE 75; RESP 18; TEMP 36.6; O2SAT 98
[2023-01-07] MEDS: Gabapentin 300 MG Capsule PO ×2 (11:10→21:30)
[2023-01-07] MEDS: Nicotine Polacrilex 2 MG GUM PO ×3 (11:11→20:40)
--- NOTE | 2023-01-07 12:23 | PN_ITS ---
Subjective Subjective Patient seen and examined. He had no complaints and had an uneventful night. Review of systems otherwise stable. Objective Data Objective Data Vital Signs: Vital Signs Temp Pulse Resp BP Pulse Ox O2 Del Method 98.0 F 69 18 115/64 98 Room Air 01/07/23 06:22 01/07/23 06:22 01/07/23 06:22 01/07/23 06:22 01/07/23 06:22 01/07/23 06:22 Oxygen Delivery Method Room Air Weight: 158 lb 11.725 oz Body Mass Index (BMI) 23.5 Intake & Output: Intake and Output for Last 24 Hours 01/05/23 01/06/23 01/07/23 23:59 23:59 23:59 Intake Total 1051 / 1051 4972.5 / 5972.5 1350 / 1350 Output Total 1200 / 1975 1075 / 1075 Balance 1051 / 1051 3772.5 / 3997.5 275 / 275 Lab / Micro Data Result Diagrams: 01/05/23 16:15 01/05/23 16:15 Labs: Laboratory Results - last 24 hr 01/06/23 14:30: Urine Opiates Screen NEGATIVE, Urine Methadone Screen NEGATIVE, Ur Barbiturates Screen POSITIVE H, Ur Phencyclidine Scrn NEGATIVE, Ur Amphetamines Screen NEGATIVE, MDMA (Ecstasy) Screen NEGATIVE, U Benzodiazepines Scrn NEGATIVE, Urine Cocaine Screen NEGATIVE, U Cannabinoids Screen NEGATIVE, Ur Drug Screen Comment Rhythm Strip Rhythm Strip: Sinus Tach Rate: 105 Physical Exam Const alert, oriented x3 and no apparent distress General Appearance: cooperative HEENT normocephalic, head/scalp atraumatic and moist oral mucous membranes Eyes PERRL and EOMs intact bilaterally Neck no lymphadenopathy and supple Lymph Lymphatic: no lymphadenopathy noted and no lymphedema noted Resp normal respiratory effort, normal air movement and clear to auscultation bilaterally Cardio regular rate, regular rhythm, S1 normal heart sound, S2 normal heart sound and no murmurs GI normal to inspection, nondistended, normoactive bowel sounds, soft to palpation and non-tender Extremity normal capillary refill, no clubbing, cyanosis or edema and no calf tenderness Skin General Skin Exam: no breakdown and turgor normal Neuro CN's II-XII intact bilaterally, no focal motor deficits, no sensory deficits noted and deep tendon reflexes 2+ bilaterally Psych thought process normal, cooperative and affect normal Appearance: appropriate Assessment & Plan Assessment/Plan (1) Alcohol withdrawal: PLAN: Plan #Acute alcohol withdrawal * on alcohol withdrawal protocol with phenobarbital * monitor CIWA score * On thiamine, folic acid and Multivite * * #History of upper GI bleed due to bleeding duodenal ulcers * EGD on 12/14/2022 showed Mendez's esophagus and chronic gastritis as well as duodenitis and a bleeding duodenal ulcer. * On PPI and sucralfate * #Chronic alcoholic hepatitis: Liver enzymes at baseline. We will continue to monitor. #Left upper extremity soft tissue swelling * Had ultrasound which showed a complex left upper tissue collection. Hematoma was ruled out and orthopedics reviewed patient and thought it may be due to infection * was placed on doxycycline for a total of 2 weeks; to follow up with orthopedic surgery on outpatient basis * #DVT prophylaxis: SCDs DIsposition: anticipate dc tomorrow Charges/Coding Visit Charges Inpatient E&M: 74002 Subs Hosp L2
[2023-01-07 17:00] VITALS: BP 116/70; PULSE 77; RESP 18; TEMP 36.7; O2SAT 98
[2023-01-07 20:50] VITALS: BP 129/78; PULSE 80; RESP 18; TEMP 36.7; O2SAT 100
[2023-01-07 21:02] VITALS: BP 129/78; PULSE 80; RESP 18; TEMP 36.7; O2SAT 100
[2023-01-07] MEDS: Acetaminophen 500 MG Tablet PO (21:29)
[2023-01-07] MEDS: traZODone 100 MG Tablet PO (21:30)
--- NOTE | 2023-01-07 23:31 | NURSING ---
@ approx 1999, pt requested nicotine patch, no previous ones found on pt skin, one placed on left upper arm @ this time; explained to pt that these are changed daily, at this time, pt requesting for another nicotine patch told him he has already had 2 today of a daily med and this nurse can not find previous patch at this time and is not sure if pt has hidden it or chewed it but informed him that at this time, I can not give him another one-bed exit is on at this time
[2023-01-08] MEDS: Phenobarbital 32.4 MG Tablet 64.8 MG PO ×3 (01:16→11:57)
[2023-01-08 01:56] VITALS: BP 131/90; PULSE 80; RESP 18; TEMP 36.6; O2SAT 98
[2023-01-08] MEDS: hydrOXYzine PAM 25 MG Capsule 50 MG PO (02:15)
[2023-01-08] MEDS: Acetaminophen 500 MG Tablet PO (05:50)
[2023-01-08] MEDS: Gabapentin 300 MG Capsule PO (05:50)
[2023-01-08] MEDS: Sucralfate 1 GM Tablet PO ×2 (05:51→11:57)
[2023-01-08] MEDS: Lactulose 20 GM/30 ML UDC 10 GM PO (08:09)
[2023-01-08] MEDS: Folic Acid 1 MG Tablet PO (08:09)
[2023-01-08] MEDS: Thiamine Hydrochloride 100 MG Tablet PO (08:09)
[2023-01-08] MEDS: Pantoprazole Sodium 40 MG Tablet PO (08:09)
[2023-01-08] MEDS: Doxycycline 100 MG CAPSULE PO (08:10)
[2023-01-08 08:30] VITALS: BP 148/88; PULSE 65; RESP 18; TEMP 36.5; O2SAT 100
--- NOTE | 2023-01-08 11:11 | DS.PCM_ITS ---
Providers Date of Admission: 01/05/23 Date of Discharge: 01/08/23 Primary Care Physician: Dr. Rena Springer MD Reason For Visit: ACUTE ALCOHOL WITHDRAWAL SYN Diagnosis Discharge Diagnosis (1) Alcohol withdrawal: Status: Acute Code(s): F10.939 - Alcohol use, unspecified with withdrawal, unspecified Plan #Acute alcohol withdrawal * on alcohol withdrawal protocol with phenobarbital * monitor CIWA score * On thiamine, folic acid and Multivite * * #History of upper GI bleed due to bleeding duodenal ulcers * EGD on 12/14/2022 showed Mendez's esophagus and chronic gastritis as well as duodenitis and a bleeding duodenal ulcer. * On PPI and sucralfate * #Chronic alcoholic hepatitis: Liver enzymes at baseline. We will continue to monitor. #Left upper extremity soft tissue swelling * Had ultrasound which showed a complex left upper tissue collection. Hematoma was ruled out and orthopedics reviewed patient and thought it may be due to infection * was placed on doxycycline for a total of 2 weeks; to follow up with orthopedic surgery on outpatient basis * #DVT prophylaxis: SCDs DIsposition: anticipate dc tomorrow Medications at Discharge Home Medications doxycycline hyclate 100 mg tablet 100 mg PO BID 13 days #26 tabs 12/23/22 lactulose 20 gram/30 mL oral solution 10 g (15 mL) PO BID 30 days #900 mL 12/23/22 pantoprazole 40 mg tablet,delayed release (Protonix) 40 mg PO BID 30 days #60 tabs 12/23/22 sucralfate 1 gram tablet 1 g PO Q6H 30 days #120 tabs 12/23/22 Hospital Course Operations None Procedures None Summary of Care Provided Minutes Spent on Discharge: 45 Hospital Course: Patient is a 67-year-old male with a past medical history as outlined which in cludes chronic alcohol use disorder. He was admitted with a complaint of alcohol withdrawal. Patient drinks about 5-6 bottles of 12 ounce cans of beer daily. He was recently admitted for acute alcohol withdrawal. On admission he was having shivering tremors and restlessness. He had been admitted from 12/12/2022 to 12/23/2022 for severe anemia with hemoglobin 6.3 and required 4 units of packed red blood cells. He had also had EGD during that admission. He was admitted and managed for acute alcohol withdrawal. He was started on alcohol withdrawal protocol with phenobarbital. He tolerated the 3-day detox process well and remained stable. He was discharged home on 01/08/2023 to follow-up with his PCP and follow-up with [facility] services on outpatient basis. Patient seen and examined prior to discharge. He had no complaints and had an uneventful night. Review of systems otherwise negative. Labs and vitals reviewed. Home medication reviewed and reconciled. Physical Exam Const alert, oriented x3 and no apparent distress General Appearance: cooperative, comfortable and well kempt Orientation / Consciousness: awake HEENT normocephalic, head/scalp atraumatic, hearing grossly normal bilaterally and moist oral mucous membranes Mouth: oral and palatal mucosa normal Eyes PERRL and EOMs intact bilaterally Neck no lymphadenopathy and supple Lymph Lymphatic: no lymphadenopathy noted and no lymphedema noted Resp normal respiratory effort, normal air movement and clear to auscultation bilaterally Cardio regular rate, regular rhythm, S1 normal heart sound, S2 normal heart sound and no murmurs GI normal to inspection, nondistended, normoactive bowel sounds, soft to palpation and non-tender Extremity normal to inspection, full ROM, normal capillary refill, no clubbing, cyanosis or edema and no calf tenderness Skin no rashes or lesions noted General Skin Exam: no breakdown and turgor normal Neuro CN's II-XII intact bilaterally, no focal motor deficits, no sensory deficits noted and deep tendon reflexes 2+ bilaterally Psych thought process normal, cooperative and affect normal Appearance: appropriate Weight / BMI Weight Weight: 158 lb 11.725 oz Body Mass Index (BMI) 23.5 ABG / Lab / Microbiology Data Result Diagrams: 01/05/23 16:15 01/05/23 16:15 D/C Instructions Discharge Diet: Low fat / Low cholesterol Weight Bearing Status: Weight bearing as tolerated Call your doctor if you observe: Fever of 101 or Higher, Shortness of breath, Dizziness, Swelling in the ankles, Chest pain and Increased palpitations (irregular heartbeat) Meaningful Use Info Meaningful Use Diagnoses (Choose all that apply): None applicable Discharge Plan Admission Admit Date/Time: 01/05/23 18:48 Primary Reason for Your Visit: acute alcohol withdrawal Attending Provider: Seema Davis Primary Care Provider: Rena Springer Consulting Providers: Joey Luong Instructions Patient Instructions: Alcohol Addiction, Alcohol Withdrawal: What to Expect Discharge Orders/Prescriptions Prescriptions: Continued doxycycline hyclate 100 mg tablet 100 mg PO BID 13 Days Qty: 26 0RF pantoprazole [Protonix] 40 mg tablet,delayed release (DR/EC) 40 mg PO BID 30 Days Qty: 60 1RF sucralfate 1 gram tablet 1 g PO Q6H 30 Days Qty: 120 0RF lactulose 20 gram/30 mL Solution 10 g PO BID 30 Days Qty: 900 0RF Referrals / Follow Up: Rena Springer MD [Primary Care Provider] - Care Physician,No Primary [Non-Staff] - Disposition Disposition (needs filled in before D/C Order can be placed): Home, Self Care Charges/Coding Visit Charges Inpatient E&M: 38242 Disch Hosp >30min
--- NOTE | 2023-01-08 11:11 | DCINST_ITS ---
Discharge Instructions Diet Discharge Diet: Low fat / Low cholesterol Activity Discharge Activity: Return to Normal Activity Weight Bearing Status: Weight bearing as tolerated Dressing / Incision Call your doctor if you observe: Fever of 101 or Higher, Shortness of breath, Dizziness, Swelling in the ankles, Chest pain and Increased palpitations (irregular heartbeat) Follow Up Care Test Results: Test results from this visit will be discussed in further detail at your follow- up appointment, if applicable. Discharge Plan Admission Admit Date/Time: 01/05/23 18:48 Primary Reason for Your Visit: acute alcohol withdrawal Attending Provider: Seema Davis Primary Care Provider: Rena Springer Consulting Providers: Joey Luong Instructions Patient Instructions: Alcohol Addiction, Alcohol Withdrawal: What to Expect Discharge Orders/Prescriptions Prescriptions: Continued doxycycline hyclate 100 mg tablet 100 mg PO BID 13 Days Qty: 26 0RF pantoprazole [Protonix] 40 mg tablet,delayed release (DR/EC) 40 mg PO BID 30 Days Qty: 60 1RF sucralfate 1 gram tablet 1 g PO Q6H 30 Days Qty: 120 0RF lactulose 20 gram/30 mL Solution 10 g PO BID 30 Days Qty: 900 0RF Referrals / Follow Up: Rena Springer MD [Primary Care Provider] - Care Physician,No Primary [Non-Staff] - Disposition Disposition (needs filled in before D/C Order can be placed): Home, Self Care
--- NOTE | 2023-01-08 11:25 | PHA.DC.MR ---
Pharmacy Service has performed discharge medication reconciliation for this patient. The patient's discharge medication list was reviewed for discrepancies and discrepancies were resolved. Home Medications doxycycline hyclate 100 mg tablet 100 mg PO BID 13 days #26 tabs 12/23/22 lactulose 20 gram/30 mL oral solution 10 g (15 mL) PO BID 30 days #900 mL 12/23/22 pantoprazole 40 mg tablet,delayed release (Protonix) 40 mg PO BID 30 days #60 tabs 12/23/22 sucralfate 1 gram tablet 1 g PO Q6H 30 days #120 tabs 12/23/22
[2023-01-08] MEDS: Nicotine Polacrilex 2 MG GUM PO (12:48)
[2023-01-08 13:30] VITALS: BP 145/86; PULSE 74; RESP 18; TEMP 36.4; O2SAT 100
--- NOTE | 2023-01-08 13:53 | NURSING ---
Pt found chewing on nicotine patch again. SHIP SUPERINTENDENT Vitaliy removed patch from pt's mouth and disposed of it. Gave pt teaching on why this is unsafe. Pt preparing for discharge, calling family to find a ride.
--- NOTE | 2023-01-08 13:58 | NURSING ---
pt states that it is okay to tell Evelina information like he is discharged so she can come pick me up.
== END 2023-01-08 15:15 | disposition home or self-care (01) | DRG 896 ==
LOC: ED 17:43 → MS3 19:11
PROVIDERS: Admitting Provider Internal Medicine; Emergency Provider Emergency Medicine; PCP Family Medicine; Visit Provider Student in an Organized Health Care Education/Training Program
DX: F10.239 Alcohol dependence with withdrawal, unspecified (principal); K26.4 Chronic or unspecified duodenal ulcer with hemorrhage; E87.1 Hypo-osmolality and hyponatremia; L02.414 Cutaneous abscess of left upper limb; K70.10 Alcoholic hepatitis without ascites; F17.220 Nicotine dependence, chewing tobacco, uncomplicated; F17.290 Nicotine dependence, other tobacco product, uncomplicated; F41.9 Anxiety disorder, unspecified; K29.50 Unspecified chronic gastritis without bleeding; K29.80 Duodenitis without bleeding; K22.70 Barrett's esophagus without dysplasia; Y90.0 Blood alcohol level of less than 20 mg/100 ml; F32.A Depression, unspecified; Z79.899 Other long term (current) drug therapy
CPT/HCPCS: 36415; 80053; 80307; 82077; 82728; 83540; 83550; 83690; 85025; 85610; 93005; 97802; 99284; 99406; J7030; A4216; J2405; J3490

== ENCOUNTER 2023-02-18 18:32 | Emergency (ER) | payer MEDICARE, SELFPAY ==
[2023-02-18 18:33] VITALS: BP 118/73; PULSE 88; RESP 18; TEMP 36.6; BMI 21.2
[2023-02-18] MEDS: Ziprasidone IM 20 MG/ML VIAL IM (18:47)
--- NOTE | 2023-02-18 18:47 | EDS_ITS ---
HPI History of Present Illness Chief Complaint: ETOH Intox Informant: patient Narrative Narrative: EMS brings in patient grossly intoxicated, his neighbor called because he was falling all over himself outside and they were afraid he was going to hurt himself or run into traffic on accident. He is not suicidal. He admitted to EMS that he drank a handle of vodka followed by 6 more beers today which is more than usual but he drinks heavily every day. He states he has been drinking Donte light lately so that he can try to curb his drinking but he does refuses to be admitted to detox when I offer that and states he does not want to stop. He denies any physical complaints right now. He was threatening police and EMS that he was going to punch them en route. [facility] Medical History Acute blood loss anemia Alcohol withdrawal Anxiety and depression At high risk for malnutrition Chewing tobacco use ETOH abuse GI bleed History of cancer tonsil Hyponatremia Home Medications doxycycline hyclate 100 mg tablet 100 mg PO BID 13 days #26 tabs 12/23/22 [Rx Last Taken 01/05/23] lactulose 20 gram/30 mL oral solution 10 g (15 mL) PO BID 30 days #900 mL 12/23/22 [Rx Last Taken 01/05/23] pantoprazole 40 mg tablet,delayed release (Protonix) 40 mg PO BID 30 days #60 tabs 12/23/22 [Rx Last Taken 01/05/23] sucralfate 1 gram tablet 1 g PO Q6H 30 days #120 tabs 12/23/22 [Rx Last Taken 01/05/23] Allergy/AdvReac Type Severity Reaction Status Date / Time No Known Allergies Allergy Verified 12/12/22 18:23 Family History Mother Diabetes Father Diabetes Brother Colon cancer Surgical History History of tonsillectomy and adenoidectomy Social History household members: other details: Lives with his son. Smoking Status: Former smoker Smokeless tobacco user: chewing tobacco and other alcohol intake: current alcohol intake frequency: 3 or more drinks per day details: 8-10 beers daily coupled with hard liquor. substance use type: does not use ROS ROS ED Eyes Eyes: Denies change in vision ENT ENT ED: Denies sore throat Cardiovascular Cardiovascular: Denies chest pain Gastrointestinal Gastrointestinal: Denies abdominal pain, nausea or vomiting Musculoskeletal Musculoskeletal: Denies back pain or neck pain Integumentary Denies abscess Neurologic Neurologic: Denies headache(s) Psychiatric Psychiatric: Denies suicidal thoughts EXAM Physical Exam Const Vital Signs: 02/18/23 18:33 02/18/23 18:55 02/18/23 19:32 Temperature 98 F Temperature Source Temporal Pulse Rate 88 102 H Respiratory Rate 18 16 Blood Pressure 118/73 138/102 H Blood Pressure Mean 88 114 Pulse Ox 99 Oxygen Delivery Method Room Air Room Air Room Air 02/18/23 20:15 02/18/23 22:00 02/18/23 23:00 Temperature Temperature Source Pulse Rate 97 119 H 130 H Respiratory Rate 16 16 20 H Blood Pressure 133/67 H 170/96 H 147/90 H Blood Pressure Mean 89 120 109 Pulse Ox 100 97 99 Oxygen Delivery Method Room Air Room Air Room Air Positive well nourished and well developed General Appearance ED: well developed and NAD HEENT Reports moist mucous membranes normocephalic and atraumatic Eyes PERRL and EOMs intact bilaterally Eyes Narrative: Horizontal nystagmus. Neck full ROM and supple Resp normal respiratory effort and clear to auscultation bilaterally Cardio regular rate, regular rhythm and no murmurs GI non-tender and non-distended Auscultation: normoactive bowel sounds Palpation: soft Back/Spine no CVA tenderness General Back: other FROM Extremity normal to inspection General Extremety ED: Negative for edema, pulses abnormal or tenderness General Extremity: Negative for edema or pulses abnormal Neuro CN's II-XII intact bilaterally and no sensory deficits noted Neuro Narrative: Oriented and grossly intoxicated Sensorium / Orientation: awake and alert Motor Exam: strength 5/5 throughout Psych Psych Narrative: Labile affect. Not suicidal. Skin no rashes or lesions noted and no wounds MDM MDM MDM Narrative Medical decision making narrative: Patient has labile affect, he is intermittently threatening police and staff, and requiring gentle physical restraint and not redirectable verbally for any length of time. He is grossly intoxicated but his vital signs are normal and he is neurologically intact. I do not think he needs an emergent medical work-up, he just needs to be kept safe until he can sober up and leave. He again decli graciela detox. Therefore nursing has physically restrain him and I am giving him a dose of Geodon so that we can minimize time in restraints and allow him to rest comfortably. Geodon helped a little but the patient was still agitated. He had to be redirected multiple times by nursing to stay in the bed. At 1 point because of all of this I had nursing give him Ativan 2 mg IM. Again this helped tem porarily, and then the patient climbed over the rails out of bed and then fell to the ground, hitting his head against the nearby wall. He scraped his right forearm, and he had a scar on his head that he opened slightly but none of this required any repair, he did not have any crepitance or hematoma on his forehead, we did send him to CT scan to ensure that he did not sustain any intracranial injury. Nurse cleansed and dressed his minor wounds. He did not sustain any major injury to his right upper extremity. We put him back in bed in restraints to keep him from injuring himself more/further, and he was given IM Haldol. He will need to be further observed until he is more sober and will be checked out to the night team. Discharge Plan Triage Chief Complaint: ETOH Intox ED Provider: Home Caceres Dx/Rx/DC Orders Clinical Impression: Alcohol intoxication Instructions: ED Alcohol Intoxication Prescriptions: No Action doxycycline hyclate 100 mg tablet 100 mg PO BID 13 Days Qty: 26 0RF pantoprazole [Protonix] 40 mg tablet,delayed release (DR/EC) 40 mg PO BID 30 Days Qty: 60 1RF sucralfate 1 gram tablet 1 g PO Q6H 30 Days Qty: 120 0RF lactulose 20 gram/30 mL Solution 10 g PO BID 30 Days Qty: 900 0RF Primary Care Provider: Rena Springer Referrals: Rena Springer MD [Primary Care Provider] -
[2023-02-18 19:32] VITALS: BP 138/102; PULSE 102; RESP 16; O2SAT 99
[2023-02-18 20:15] VITALS: BP 133/67; PULSE 97; RESP 16; O2SAT 100
[2023-02-18] MEDS: LORazepam 2 MG/ML Syringe IM (21:05)
[2023-02-18 22:00] VITALS: BP 170/96; PULSE 119; RESP 16; O2SAT 97
[2023-02-18] MEDS: Haloperidol Lactate 5 MG/ML Vial 2 MG IM (22:24)
--- NOTE | 2023-02-18 22:29 | ED.RN ---
patient required being placed back into restraints. patient is not able to be redirected or follow basic commands at this time. Patient had previous fall and not willing to follow directions. patient placed back into restraints for safety
[2023-02-18 23:00] VITALS: BP 147/90; PULSE 130; RESP 20; O2SAT 99
[2023-02-19] VITALS (8 sets, daily range): BP systolic 106–154; BP diastolic 64–90; PULSE 98–130; RESP 14–24; TEMP 36.6; O2SAT 93–100; BMI 21.2
--- NOTE | 2023-02-19 10:44 | ED.RN ---
Home with brother[facility]
--- NOTE | 2023-02-19 22:16 | CT_ITS ---
EXAM: CT HEAD WITHOUT INTRAVENOUS CONTRAST CLINICAL INDICATION: fall/trauma TECHNIQUE: Multiple axial images were obtained of the head without intravenous contrast. This CT exam was performed using one or more of the following dose reduction techniques: automated exposure control, adjustment of the mA and/or kV according to patient size, and/or use of iterative reconstruction technique. RADIATION DOSE: CTDIvol = 44.99 mGy, DLP = 863.60 mGy-cm COMPARISON: December 12, 2022. FINDINGS: BRAIN AND EXTRA-AXIAL SPACES: Mild hydrocephalus ex vacuo and cavum septum pellucidum are similar to prior exam. Mild diffuse cerebral volume loss. No intra- or extra-axial hemorrhage. No evidence of acute infarct. No intracranial mass or mass effect. There is preservation of the boo/white matter interface. Posterior fossa structures are unremarkable. Basal cisterns are patent. BONES/JOINTS: See below. SOFT TISSUES: Mild right forehead scalp contusion, no underlying fracture. VASCULATURE: Moderate intracranial carotid calcifications, mild left vertebral artery calcifications. SINUSES: Completely included paranasal sinuses are well aerated. MASTOID AIR CELLS: Unremarkable. Clear. ORBITS: Visualized globes, extraocular muscles, optic nerves and retrobulbar fat appear unremarkable. CT/Brain/Head without Contrast IMPRESSION: Mild forehead scalp contusion. No acute intracranial abnormality. Mild chronic changes. Electronically Signed: Sonia Molina MD at 0:40 EDT ,
== END 2023-02-19 10:45 | disposition home or self-care (01) ==
PROVIDERS: Emergency Provider Emergency Medicine; PCP Family Medicine; Visit Provider Emergency Medicine
DX: F10.129 Alcohol abuse with intoxication, unspecified (principal); Z87.891 Personal history of nicotine dependence
CPT/HCPCS: 70450; 96372; 99285

== ENCOUNTER 2023-02-24 17:57 | Emergency (ER) | payer MEDICARE, SELFPAY ==
[2023-02-24 17:58] VITALS: BP 127/76; PULSE 95; RESP 16; TEMP 36.6; O2SAT 98; BMI 22.0
--- NOTE | 2023-02-24 18:00 | ED.RN ---
pt arrived intoxicated. pt labile. violent and swinging and then hugging and inappropriate touching. unable to redirect or deescalate. placed in restraints. per dr bruce boone and beena polanco at bedside.
--- NOTE | 2023-02-24 18:01 | CT_ITS ---
STUDY: CT BRAIN WITHOUT CONTRAST REASON FOR EXAM: Male, 68 years old. Head injury RADIATION DOSAGE (If Supplied By Facility): CTDIvol = ( 44.99 ) mGy, DLP = ( 863.60 ) mGycm TECHNIQUE: Transaxial CT imaging of the brain was performed without administration of intravenous contrast material. Individualized dose optimization techniques were used for this CT. COMPARISON: 02/19/2023 FINDINGS: Normal soft tissue structures. Normal calvarium. There is mild cerebral atrophy with widening of the extra-axial spaces and ventricular dilatation. Normal white matter tracts of the cerebral hemispheres. Normal basal ganglia and thalami. Normal brainstem. Normal cerebellum. There is no intracranial hemorrhage. There are no findings of an acute ischemic infarction. Normal visualized paranasal sinuses. CT/Brain/Head without Contrast IMPRESSION: Chronic involutional changes of the brain. Electronically Signed: Johan Humphrey MD at 19:55 EDT ,
--- NOTE | 2023-02-24 18:16 | EDS_ITS ---
HPI <SOHA Shultz - Last Filed: 02/24/23 20:27> History of Present Illness Chief Complaint: Fall Narrative Narrative: Patient is a 68-year-old male with history of acid reflux, alcohol abuse who presents to the emergency department for alcohol intoxication, possible fall. Patient has been seen in this emergency department several times for alcohol intoxication, frequent falls. Tonight, there was a call, patient was acting appropriate. Upon arrival, patient was screaming, patient does have a skin tear to the left arm. He has no complaints. When asked how he is feeling, he states he just wants to hit everybody. PFS <SOHA Shultz - Last Filed: 02/24/23 20:27> [facility] Medical History Acute blood loss anemia Alcohol withdrawal Anxiety and depression At high risk for malnutrition Chewing tobacco use ETOH abuse GI bleed History of cancer tonsil Hyponatremia Home Medications doxycycline hyclate 100 mg tablet 100 mg PO BID 13 days #26 tabs 12/23/22 [Rx Last Taken 01/05/23] lactulose 20 gram/30 mL oral solution 10 g (15 mL) PO BID 30 days #900 mL 12/23/22 [Rx Last Taken 01/05/23] pantoprazole 40 mg tablet,delayed release (Protonix) 40 mg PO BID 30 days #60 tabs 12/23/22 [Rx Last Taken 01/05/23] sucralfate 1 gram tablet 1 g PO Q6H 30 days #120 tabs 12/23/22 [Rx Last Taken 01/05/23] Allergy/AdvReac Type Severity Reaction Status Date / Time No Known Allergies Allergy Verified 12/12/22 18:23 Family History Mother Diabetes Father Diabetes Brother Colon cancer Surgical History History of tonsillectomy and adenoidectomy Social History household members: other details: Lives with his son. Smoking Status: Unknown if ever smoked Smokeless tobacco user: chewing tobacco and other alcohol intake: current alcohol intake frequency: 3 or more drinks per day details: 8-10 beers daily coupled with hard liquor. substance use type: does not use ROS <SOHA Shultz - Last Filed: 02/24/23 20:27> ROS ED ROS Narrative Secondary to the patient's intoxication, he was not cooperative and answering review of symptoms. EXAM <SOHA Shultz - Last Filed: 02/24/23 20:27> Physical Exam Narrative Exam Narrative: Vital signs reviewed. Patient is obviously intoxicated, patient is slurring his words. Patient is saying multiple obscenities, threatening staff, putting up his hands and a punching motion to multiple staff members. Patient immediately was placed in four-point restraints secondary to the concern for the safety of the staff and the patient. HEET: Head normocephalic atraumatic, TMs clear bilaterally. Posterior pharynx is clear, moist mucous membranes. Nares clear bilaterally. Pupils equal round reactive to light. Neck: Supple with no lymphadenopathy or tenderness. No signs of meningismus, negative jolt sign. Cardiac: Regular rate and rhythm no murmurs gallops or rubs, equal peripheral pulses bilaterally. Respiratory: Lungs clear to auscultation bilaterally. No chest tenderness. Abdomen: Soft, nontender, nondistended. No abdominal bruit or pulsatile masses. No hepatosplenomegaly Extremities: No peripheral edema, no signs of gross trauma or deformity. Active full range of motion of all extremities. Patient has a 3 cm x 3 cm circular skin tear to the left forearm. This is superficial. Neuro: Cranial nerves II through XII intact, no focal neurological deficits. Skin: Clean dry and intact with no rash, purpura, petechiae, vesicles or pustules. Backs/flank: No CVA tenderness, no midline spinal tenderness, no deformity. Psych: Normal mood and affect. No SI, HI or acute psychosis. Const Vital Signs: 02/24/23 17:58 02/24/23 20:37 Temperature 97.8 F Temperature Source Temporal Pulse Rate 95 Respiratory Rate 16 14 Blood Pressure 127/76 H Blood Pressure Mean 93 Pulse Ox 98 Oxygen Delivery Method Room Air Positive well nourished and well developed General Appearance ED: well developed <Dr. Jakob Calle, - Last Filed: 02/24/23 23:00> Physical Exam Const Vital Signs: 02/24/23 17:58 02/24/23 20:37 Temperature 97.8 F Temperature Source Temporal Pulse Rate 95 Respiratory Rate 16 14 Blood Pressure 127/76 H Blood Pressure Mean 93 Pulse Ox 98 Oxygen Delivery Method Room Air [facility] <Barrera MayersGALOC - Last Filed: 02/24/23 20:27> [facility] Lab Data Labs: Laboratory Results - last 24 hr 02/24/23 18:15 WBC 5.0 RBC 3.29 L Hgb 10.3 L Hct 30.1 L MCV 91.5 MCH 31.3 MCHC 34.2 RDW Std Deviation 44.5 H RDW Coeff of Jesus 13.3 Plt Count 251 MPV 9.0 Immature Gran % (Auto) 0.600 Neut % (Auto) 74.0 H Lymph % (Auto) 11.7 L [place] % (Auto) 12.3 H Eos % (Auto) 0.8 Baso % (Auto) 0.6 Absolute Neuts (auto) 3.7 Absolute Lymphs (auto) 0.58 L Nucleated RBC % 0 Differential Comment SCANNED Sodium 132 L Potassium 3.6 Chloride 99 Carbon Dioxide 23.0 Anion Gap 10 BUN 7 Creatinine 0.97 Estim Creat Clear Calc 68.75 Est GFR (MDRD) Af Amer 100 Est GFR (MDRD) Non-Af 82 BUN/Creatinine Ratio 7.2 L Glucose 73 L Calcium 8.2 L Magnesium 2.1 Total Bilirubin 0.30 AST 29 ALT 17 Alkaline Phosphatase 86 Total Protein 6.2 L Albumin 3.0 L Globulin 3.2 Albumin/Globulin Ratio 0.9 Ethyl Alcohol 280.0 Radiography Diagnostic Testing: Clinical Impression(s) from Imaging Studies Brain CT 02/24/23 18:01 IMPRESSION: Chronic involutional changes of the brain. Electronically Signed: Johan Humphrey MD at 19:55 EDT , Treatment and Re-Evaluation :: Patient upon initial arrival was yelling, being very disrespectful, swearing, th reatening to harm nursing staff as well as please staff. Patient made several attempts to hit staff and was put in four-point restraints. Patient presents to the emergency department via EMS for intoxication, possible fall. Patient does have history of this. Patient was only in four-point restraint for short time. Patient then began behaving.Patient did receive basic laboratory values, andrea stoner's CBC showed a hemoglobin 10.3 which is a chronic stable anemia. Patient's sodium is 132 which is slightly low however baseline for this patient. Patient's kidney function was unremarkable. Magnesium was unremarkable. Patient's alcohol level was 280. Patient received a CT scan of his brain to ensure there is no intracranial hemorrhage, skull fracture. This was negative for any acute process. Patient was given IV Ativan to help him relax. Patient will be discharged home once sober. Patient does have a left skin tear that was dressed, tetanus vaccination given. Patient instructed to quit drinking or this could ultimately kill him. He verbally understands. Patient stable for discharge. <Dr. Jakob Calle, DO - Last Filed: 02/24/23 23:00> [facility] Lab Data Attestation: I reviewed the patient's lab results. Labs: Laboratory Results - last 24 hr 02/24/23 18:15 WBC 5.0 RBC 3.29 L Hgb 10.3 L Hct 30.1 L MCV 91.5 MCH 31.3 MCHC 34.2 RDW Std Deviation 44.5 H RDW Coeff of Jesus 13.3 Plt Count 251 MPV 9.0 Immature Gran % (Auto) 0.600 Neut % (Auto) 74.0 H Lymph % (Auto) 11.7 L [place] % (Auto) 12.3 H Eos % (Auto) 0.8 Baso % (Auto) 0.6 Absolute Neuts (auto) 3.7 Absolute Lymphs (auto) 0.58 L Nucleated RBC % 0 Differential Comment SCANNED Sodium 132 L Potassium 3.6 Chloride 99 Carbon Dioxide 23.0 Anion Gap 10 BUN 7 Creatinine 0.97 Estim Creat Clear Calc 68.75 Est GFR (MDRD) Af Amer 100 Est GFR (MDRD) Non-Af 82 BUN/Creatinine Ratio 7.2 L Glucose 73 L Calcium 8.2 L Magnesium 2.1 Total Bilirubin 0.30 AST 29 ALT 17 Alkaline Phosphatase 86 Total Protein 6.2 L Albumin 3.0 L Globulin 3.2 Albumin/Globulin Ratio 0.9 Ethyl Alcohol 280.0 Radiography Diagnostic Testing: Clinical Impression(s) from Imaging Studies Brain CT 02/24/23 18:01 IMPRESSION: Chronic involutional changes of the brain. Electronically Signed: Johan Humphrey MD at 19:55 EDT , Treatment and Re-Evaluation :: Patient upon initial arrival was yelling, being very disrespectful, swearing, threatening to harm nursing staff as well as please staff. Patient made several attempts to hit staff and was put in four-point restraints. Patient presents to the emergency department via EMS for intoxication, possible fall. Patient does have history of this. Patient was only in four-point restraint for short time. Patient then began behaving.Patient did receive basic laboratory values, patient's CBC showed a hemoglobin 10.3 which is a chronic stable anemia. Patient's sodium is 132 which is slightly low however baseline for this patient. Patient's kidney function was unremarkable. Magnesium was unremarkable. Patient's alcohol level was 280. Patient received a CT scan of his brain to ensure there is no intracranial hemorrhage, skull fracture. This was negative for any acute process. Patient was given IV Ativan to help him relax. Patient will be discharged home once sober. Patient does have a left skin tear that was dressed, tetanus vaccination given. Patient instructed to quit drinking or this could ultimately kill him. He verbally understands. Patient stable for discharge. DR CALLE NOTE 2300 patient is clinically sober. patient has been walking to the bathroom. Patient is currently eating and drinking. Patient has family member that can come pick him up. Patient is acting more appropriate. Patient is not agitated or combative. Patient would like to go home. Patient refusing any type of alcohol admission or alcohol detox admission. There was a significant amount of time spent at bedside initially by myself, BARRERA LEE; and excessive amount of nursing staff. Patient was intermittently agitated, combative, secondary to alcohol intoxication. We were going to give patient 2 mg of IV Ativan, but we never ended up giving the Ativan secondary to patient was cooperative and not agitated or combative when he was in the room without nursing staff or physician staff in the room Critical care time 35 minutes exclusive from separate billable procedures that were performed. The following was considered in the determination of critical care but not limited to the level of medical decision making, intensive cardiac and/or respiratory monitoring, frequent vital sign monitoring, evaluation of laboratory studies, evaluation of radiographic studies, oxygen monitoring, and constant monitoring and speaking to family at bedside Discharge Plan Triage Chief Complaint: Fall ED Midlevel Provider: Barrera Mayers ED Provider: Jakob Calle Dx/Rx/DC Orders Clinical Impression: Alcohol intoxication, Skin tear Instructions: Alcohol and Older Adults, ED Alcohol Intoxication Prescriptions: No Action doxycycline hyclate 100 mg tablet 100 mg PO BID 13 Days Qty: 26 0RF pantoprazole [Protonix] 40 mg tablet,delayed release (DR/EC) 40 mg PO BID 30 Days Qty: 60 1RF sucralfate 1 gram tablet 1 g PO Q6H 30 Days Qty: 120 0RF lactulose 20 gram/30 mL Solution 10 g PO BID 30 Days Qty: 900 0RF Primary Care Provider: Rena Springer Referrals: Rena Springer MD [Primary Care Provider] - Activity Restrictions/Additional Instructions: You were updated on your tetanus vaccination today. Please keep clean your skin tear to your left forearm. Try to quit drinking as this could kill you. Disposition Disposition: Home, Self Care
[2023-02-24 18:24] LABS: Absolute Lymphocyte Count 0.58 X10^3/uL (0.83-4.51); Absolute Neutrophil Count 3.7 X10^3/uL (2.0-7.7); Basophil# 0.03 X10^3/uL; Basophil% 0.6 % (0-1); Eosinophil# 0.04 X10^3/uL; Eosinophils% 0.8 % (0-5); Hematocrit 30.1 % (40-54); Hemoglobin 10.3 g/dL (13.0-16.5); Lymphocyte # 0.58 X10^3/ul (0.83-4.51); Lymphocyte % 11.7 % (19-41); Mean Corp Hgb Conc 34.2 g/dL (32-36); Mean Corpuscular Hgb 31.3 pg (27.0-32.0); Mean Corpuscular Volume 91.5 fL (80-94); Monocyte# 0.61 X10^3/uL; Monocyte% 12.3 % (0-10); NRBC Flagged by Analyzer 0 % (0-5); Neutrophil # 3.66 X10^3/uL (2.7-7.7); POSITIVE DIFFERENTIAL YES; Platelet Count 251 K/mm3 (150-450); RBC Distribution Width CV 13.3 % (11.6-14.6); RBC Distribution Width SD 44.5 fl (35.1-43.9); Red Blood Count 3.29 M/mm3 (4.6-6.2)
[2023-02-24 18:28] LABS: Differential Indicated SCAN CRITERIA MET
[2023-02-24] MEDS: Diphth,Pertuss(Acell),Tet Vac 0.5 ML Vial IM (18:32)
[2023-02-24] MEDS: 0.9% Normal Saline 1,000 ML 999 ML IV (18:32)
[2023-02-24 18:41] LABS: ALB/GLOB Ratio 0.9 RATIO (0.9-2.4); AST(SGOT) 29 U/L (15-37); Alanine Aminotransfer ALT/SGPT 17 U/L (16-61); Alkaline Phosphatase 86 U/L (45-117); Anion Gap 10 (5-15); BUN 7 mg/dL (7-18); BUN/Creat Ratio 7.2 RATIO (10-20); Calcium,Total 8.2 mg/dL (8.5-10.1); Chloride 99 mmol/L (98-107); Creatinine, Serum 0.97 mg/dL (0.70-1.30); EST Glomerular Filtration Rate 82 mL/min (>60); Est Glom Filt Rate - Afr Amer 100 mL/min (>60); Estimated Creatinine Clearance 68.75 ml/min; Globulin 3.2 g/dL (2.2-4.2); Glucose 73 mg/dL (74-106); Magnesium 2.1 mg/dL (1.6-2.6); Potassium 3.6 mmol/L (3.5-5.1); Protein, Total 6.2 g/dL (6.4-8.2); Sodium Level 132 mmol/L (136-145)
[2023-02-24 19:07] LABS: Differential Comment SCANNED
--- NOTE | 2023-02-24 19:09 | ED.RN ---
wants RN to hold ativan at this time.
--- NOTE | 2023-02-24 20:35 | ED.RN ---
late entry at 1915 locked restraints were removed and pt changed into dry clothing and bed linens changed. pt tolerated well. pt then transported via bed to CT scan and was pleasant and singing. pt back to room and pillow given, pt resting quietly in bed on right side.
[2023-02-24 20:37] VITALS: RESP 14
[2023-02-25 00:20] VITALS: BP 122/71; PULSE 91; RESP 16; O2SAT 99
--- NOTE | 2023-02-25 00:21 | ED.RN ---
AMBULATED OUT OF DEPARTMENT WITHOUT DIFFICULTY WITH NIECE IDANIA. SHE REPORTS HE LIVES WITH HIS BROTHER AND WILL HAVE SOMEONE IN THE HOME WITH HIM ALL EVENING.
== END 2023-02-25 00:22 | disposition home or self-care (01) ==
PROVIDERS: Nurse Practitioner; Emergency Provider Emergency Medicine; PCP Family Medicine; Visit Provider Emergency Medicine
DX: F10.129 Alcohol abuse with intoxication, unspecified (principal); Y90.8 Blood alcohol level of 240 mg/100 ml or more; S51.812A Laceration without foreign body of left forearm, initial encounter; W19.XXXA Unspecified fall, initial encounter; R29.6 Repeated falls; F17.220 Nicotine dependence, chewing tobacco, uncomplicated; F17.290 Nicotine dependence, other tobacco product, uncomplicated; Z79.899 Other long term (current) drug therapy; Z23 Encounter for immunization
CPT/HCPCS: 36415; 70450; 80053; 82077; 83735; 85025; 90715; 96360; 99283; J7030; A4216

== ENCOUNTER 2023-02-26 12:44 | Observation (INO) | payer MEDICARE, SELFPAY ==
[2023-02-26 12:46] VITALS: BP 126/67; PULSE 97; RESP 12; TEMP 35.5; O2SAT 100
[2023-02-26 14:25] LABS: Amphetamine Urine VISTA NEGATIVE (<1000 ng/mL); Barbiturate Urine VISTA NEGATIVE (< 200 ng/mL); Benzodiazepine Urine VISTA NEGATIVE (< 200 ng/mL); Cocaine Urine VISTA NEGATIVE (< 300 ng/mL); Ecstacy Urine VISTA NEGATIVE (< 500 ng/mL); Methadone Urine VISTA NEGATIVE (< 300 ng/mL); PCP Urine VISTA NEGATIVE (< 25 ng/mL); THC Urine VISTA NEGATIVE (< 50 ng/mL); Vista UDS pH Range 5
[2023-02-26 14:39] LABS: Absolute Lymphocyte Count 0.43 X10^3/uL (0.83-4.51); Absolute Neutrophil Count 4.7 X10^3/uL (2.0-7.7); Basophil# 0.01 X10^3/uL; Basophil% 0.2 % (0-1); Eosinophil# 0.05 X10^3/uL; Eosinophils% 0.8 % (0-5); Hematocrit 30.6 % (40-54); Hemoglobin 10.4 g/dL (13.0-16.5); Lymphocyte # 0.43 X10^3/ul (0.83-4.51); Lymphocyte % 7.3 % (19-41); Mean Corpuscular Hgb 31.4 pg (27.0-32.0); Mean Corpuscular Volume 92.4 fL (80-94); Mean Platelet Vol. 9.5 fl (6.2-12.0); Monocyte# 0.69 X10^3/uL; Monocyte% 11.6 % (0-10); NRBC Flagged by Analyzer 0 % (0-5); Neutrophil # 4.72 X10^3/uL (2.7-7.7); Neutrophil % 79.6 % (47-70); POSITIVE DIFFERENTIAL YES; Platelet Count 269 K/mm3 (150-450); RBC Distribution Width CV 13.5 % (11.6-14.6); RBC Distribution Width SD 46.5 fl (35.1-43.9); Red Blood Count 3.31 M/mm3 (4.6-6.2); White Blood Count 5.9 K/mm3 (4.4-11.0)
--- NOTE | 2023-02-26 14:52 | ED.RN ---
Pt. holly took pt. phone and black backpack that contained pt. extra clothes. Pt. insisted on keeping his cards and garcia that he has.
[2023-02-26 14:55] LABS: Differential Indicated SCAN CRITERIA MET
[2023-02-26 14:56] LABS: ALB/GLOB Ratio 0.8 RATIO (0.9-2.4); AST(SGOT) 27 U/L (15-37); Alanine Aminotransfer ALT/SGPT 17 U/L (16-61); Albumin, Serum 2.8 g/dL (3.2-5.0); Alkaline Phosphatase 97 U/L (45-117); Anion Gap 5 (5-15); BUN 18 mg/dL (7-18); BUN/Creat Ratio 13.2 RATIO (10-20); Calcium,Total 8.3 mg/dL (8.5-10.1); Chloride 94 mmol/L (98-107); Creatinine, Serum 1.36 mg/dL (0.70-1.30); EST Glomerular Filtration Rate 56 mL/min (>60); Est Glom Filt Rate - Afr Amer 67 mL/min (>60); Globulin 3.3 g/dL (2.2-4.2); Glucose 106 mg/dL (74-106); Potassium 3.9 mmol/L (3.5-5.1); Protein, Total 6.1 g/dL (6.4-8.2); Sodium Level 127 mmol/L (136-145)
[2023-02-26 15:12] LABS: Alcohol, Blood (Medical)-Serum < 3.0 mg/dL
--- NOTE | 2023-02-26 15:21 | NURSING ---
MED SURG JOPPERI ETOH DETOX
[2023-02-26 15:34] LABS: Differential Comment SCANNED
--- NOTE | 2023-02-26 15:34 | HP.PCM.HOS_ITS ---
[facility] - General General Date of Admission: 02/26/23 Date of Service: 02/26/23 Chief Complaint: requesting alcohol detoxification. HPI Narrative MIRNA JEFFRIES, is a 68 M who presents voluntarily seeking alcohol detox. Patient did have a beer today. Was seen in the emergency room on the where he was clearly intoxicated and quite belligerent. Patient sobered up and went home. Patient does have a history of severe alcohol withdrawal and did go through delirium tremens back in November. He states that before he started drinking over the weekend, he had not drank any alcohol for about 7 days. Drink a bunch of vodka then led to his state at that time. [facility] Medical History (Updated 02/26/23 @ 15:[address] Galen Souza DO) Acute blood loss anemia Alcohol withdrawal Anxiety and depression At high risk for malnutrition Chewing tobacco use ETOH abuse GI bleed History of cancer tonsil Hyponatremia Home Medications doxycycline hyclate 100 mg tablet 100 mg PO BID 13 days #26 tabs 12/23/22 [Rx Last Taken 01/05/23] lactulose 20 gram/30 mL oral solution 10 g (15 mL) PO BID 30 days #900 mL 12/23/22 [Rx Last Taken 01/05/23] pantoprazole 40 mg tablet,delayed release (Protonix) 40 mg PO BID 30 days #60 tabs 12/23/22 [Rx Last Taken 01/05/23] sucralfate 1 gram tablet 1 g PO Q6H 30 days #120 tabs 12/23/22 [Rx Last Taken 01/05/23] Allergy/AdvReac Type Severity Reaction Status Date / Time poison mike extract Allergy Mild RASH Verified 02/26/23 12:48 Family History Mother Diabetes Father Diabetes Brother Colon cancer Surgical History History of tonsillectomy and adenoidectomy Social History household members: other details: Lives with his son. Smoking Status: Current every day smoker tobacco type: smokeless tobacco Smokeless tobacco user: chewing tobacco and other alcohol intake: current alcohol intake frequency: 3 or more drinks per day details: 8-10 beers daily coupled with hard liquor. substance use type: does not use Vital Signs Vital Signs Vital Signs: 02/26/23 12:46 Temperature 35.5 C L Temperature Source Temporal Pulse Rate 97 Respiratory Rate 12 Blood Pressure 126/67 H Blood Pressure Mean 86 Pulse Ox 100 Oxygen Delivery Method Room Air Physical Exam Const alert and no apparent distress Constitutional Narrative: Patient. Very understanding and cooperative and appropriately interactive. HEENT normocephalic and head/scalp atraumatic Eyes PERRL and EOMs intact bilaterally Neuro moves all extremities Sensorium / Orientation: awake and alert Speech: speech normal Psych affect normal Results Lab / Micro Data 02/26/23 14:20 02/26/23 14:20 Labs: Laboratory Results - last 24 hr 02/26/23 13:50: Urine Opiates Screen NEGATIVE, Urine Methadone Screen NEGATIVE, Ur Barbiturates Screen NEGATIVE, Ur Phencyclidine Scrn NEGATIVE, Ur Amphetamines Screen NEGATIVE, MDMA (Ecstasy) Screen NEGATIVE, U Benzodiazepines Scrn NEGATIVE, Urine Cocaine Screen NEGATIVE, U Cannabinoids Screen NEGATIVE, Ur Drug Screen Comment 02/26/23 14:20: WBC 5.9, RBC 3.31 L, Hgb 10.4 L, Hct 30.6 L, MCV 92.4, MCH 31.4, MCHC 34.0, RDW Std Deviation 46.5 H, RDW Coeff of Jesus 13.5, Plt Count 269, MPV 9.5, Immature Gran % (Auto) 0.500, Neut % (Auto) 79.6 H, Lymph % (Auto) 7.3 L, [place] % (Auto) 11.6 H, Eos % (Auto) 0.8, Baso % (Auto) 0.2, Absolute Neuts (auto) 4.7, Absolute Lymphs (auto) 0.43 L, Nucleated RBC % 0, Sodium 127 L, Potassium 3.9, Chloride 94 L, Carbon Dioxide 28.0, Anion Gap 5, BUN 18, Creatinine 1.36 H, Est GFR (MDRD) Af Amer 67, Est GFR (MDRD) Non-Af 56 L, BUN/Creatinine Ratio 13.2, Glucose 106, Calcium 8.3 L, Total Bilirubin 0.30, AST 27, ALT 17, Alkaline Phosphatase 97, Total Protein 6.1 L, Albumin 2.8 L, Globulin 3.3, Albumin/Globulin Ratio 0.8 L, Ethyl Alcohol < 3.0 Assessment & Plan Assessment/Plan (1) ETOH abuse: PLAN: Patient voluntarily requesting evaluation for further alcohol detoxification program. Patient states that he was advised by when ED to come to the hospital for evaluation. Patient denies any complaints at this time and states that he only had 1 beer today and vodka on the but before that had not had any alcohol. Patient does have a history of very severe alcohol withdrawal but patient at this time appears to be low risk for that. We will hold off in any treatment with phenobarbital at this time unless his condition changes. My plan is just to monitor him overnight and if he does okay then to have him be seen by addiction medicine and set up an outpatient program. Thiamine and folate. (2) Behavior concern in adult: PLAN: Patient has history of inappropriate comments as well as inappropriate touching female staff. I addressed these issues directly with the patient today that he may speak with staff that cares for him but he must refrain from using inappropriate comments and I told him specifically that his jokes simply are not funny. I explained to him that we are here to try to help him and inappropriate touching will not be tolerated as he had done during the previous hospitalization back in November. Patient states that he has no recollection of that, given his compromised state that certainly may be the case. He did appear to be understanding and states that he would comply PLAN: Plan Chronic conditions * Duodenal ulcers: Continue with PPI and sucralfate. * History of anemia secondary to bleeding duodenal ulcer. Hemoglobin has trended upwards and currently 10.4. * Hyponatremia likely associated with alcohol consumption. Monitor for now. VTE prophylaxis: Low risk given current observation status. Disposition: Being brought in as observation status. If patient spit condition deteriorates where he starts going through severe alcohol withdrawal then status will need to be changed to admission. Charges/Coding Visit Charges Inpatient E&M: 84467 Init Hosp L2
--- NOTE | 2023-02-26 15:34 | NURSING ---
Joanna BARILLAS ETOH DETOX
--- NOTE | 2023-02-26 15:49 | EX.ED.SAOD ---
HPI History of Present Illness Chief Complaint: ETOH Intox Narrative Narrative: Patient presenting for alcohol detox. He has a history of alcohol abuse. Apparently Sunday he got into some vodka and some wine. He started having the shakes yesterday and today he found a beer and drank it. He request detox was brought in by his family. [facility] Medical History Acute blood loss anemia Alcohol withdrawal Anxiety and depression At high risk for malnutrition Chewing tobacco use ETOH abuse GI bleed History of cancer tonsil Hyponatremia Home Medications doxycycline hyclate 100 mg tablet 100 mg PO BID 13 days #26 tabs 12/23/22 [Rx Last Taken 01/05/23] lactulose 20 gram/30 mL oral solution 10 g (15 mL) PO BID 30 days #900 mL 12/23/22 [Rx Last Taken 01/05/23] pantoprazole 40 mg tablet,delayed release (Protonix) 40 mg PO BID 30 days #60 tabs 12/23/22 [Rx Last Taken 01/05/23] sucralfate 1 gram tablet 1 g PO Q6H 30 days #120 tabs 12/23/22 [Rx Last Taken 01/05/23] Allergy/AdvReac Type Severity Reaction Status Date / Time poison mike extract Allergy Mild RASH Verified 02/26/23 12:48 Family History Mother Diabetes Father Diabetes Brother Colon cancer Surgical History History of tonsillectomy and adenoidectomy Social History household members: other details: Lives with his son. Smoking Status: Current every day smoker tobacco type: smokeless tobacco Smokeless tobacco user: chewing tobacco and other alcohol intake: current alcohol intake frequency: 3 or more drinks per day details: 8-10 beers daily coupled with hard liquor. substance use type: does not use ROS ROS ED Constitutional Constitutional ED: Denies chills, fever(s) or sweats Eyes Eyes: Denies blurry vision or change in vision ENT ENT ED: Denies ear pain or sore throat Cardiovascular Cardiovascular: Denies chest pain, palpitations or racing heartbeat Respiratory/Chest Respiratory/Chest: Denies cough, dyspnea or sputum Gastrointestinal Gastrointestinal: Denies abdominal pain, constipation, diarrhea, nausea or vomiting Genitourinary Genitourinary ED: Denies dysuria, hematuria or urinary frequency Musculoskeletal Musculoskeletal: Denies arthralgias, myalgias or neck pain Integumentary Denies abscess, Abrasions or rash Neurologic Neurologic: Denies headache(s), paresthesias or weakness Psychiatric Psychiatric: Denies anxiety, depression, suicidal ideation or suicidal thoughts Endocrine Endocrinology: Denies polydipsia or polyuria EXAM Physical Exam Const Vital Signs: 02/26/23 12:46 Temperature 96 F L Temperature Source Temporal Pulse Rate 97 Respiratory Rate 12 Blood Pressure 126/67 H Blood Pressure Mean 86 Pulse Ox 100 Oxygen Delivery Method Room Air Positive well nourished General Appearance ED: NAD; Negative for pallor HEENT Reports moist mucous membranes Eyes PERRL and EOMs intact bilaterally Chest Wall inspection of chest normal Resp normal respiratory effort Cardio regular rate and regular rhythm Neuro oriented x3 and CN's II-XII intact bilaterally Sensorium / Orientation: alert Speech: speech normal Psych mental status grossly normal and thought process normal Skin General Skin Exam: Negative for jaundice or pallor MDM MDM MDM Narrative Medical decision making narrative: Patient presenting for alcohol detox. Screening lab work was obtained. CBC unremarkable. CMP shows an elevated creatinine at 1.36. LFTs unremarkable. Sodium slightly low at 127. Urine drug screen negative. Alcohol negative. Patient cleared for the medical floor. Discussed with hospitalist for admission. Impression: 1. EtOH abuse 2. Presentation for EtOH detox 3. Hyponatremia 4. Dehydration Lab Data Attestation: I reviewed the patient's lab results. Labs: Laboratory Results - last 24 hr 02/26/23 02/26/23 13:50 14:20 WBC 5.9 RBC 3.31 L Hgb 10.4 L Hct 30.6 L MCV 92.4 MCH 31.4 MCHC 34.0 RDW Std Deviation 46.5 H RDW Coeff of Jesus 13.5 Plt Count 269 MPV 9.5 Immature Gran % (Auto) 0.500 Neut % (Auto) 79.6 H Lymph % (Auto) 7.3 L [place] % (Auto) 11.6 H Eos % (Auto) 0.8 Baso % (Auto) 0.2 Absolute Neuts (auto) 4.7 Absolute Lymphs (auto) 0.43 L Nucleated RBC % 0 Differential Comment SCANNED Sodium 127 L Potassium 3.9 Chloride 94 L Carbon Dioxide 28.0 Anion Gap 5 BUN 18 Creatinine 1.36 H Est GFR (MDRD) Af Amer 67 Est GFR (MDRD) Non-Af 56 L BUN/Creatinine Ratio 13.2 Glucose 106 Calcium 8.3 L Total Bilirubin 0.30 AST 27 ALT 17 Alkaline Phosphatase 97 Total Protein 6.1 L Albumin 2.8 L Globulin 3.3 Albumin/Globulin Ratio 0.8 L Urine Opiates Screen NEGATIVE Urine Methadone Screen NEGATIVE Ur Barbiturates Screen NEGATIVE Ur Phencyclidine Scrn NEGATIVE Ur Amphetamines Screen NEGATIVE MDMA (Ecstasy) Screen NEGATIVE U Benzodiazepines Scrn NEGATIVE Urine Cocaine Screen NEGATIVE U Cannabinoids Screen NEGATIVE Ur Drug Screen Comment Ethyl Alcohol < 3.0 Discharge Plan Triage Chief Complaint: ETOH Intox ED Provider: Vinay Temple Dx/Rx/DC Orders Primary Care Provider: Rena Springer
[2023-02-26 16:03] VITALS: BP 135/92; PULSE 91; RESP 18; TEMP 36.7; O2SAT 97
[2023-02-26 16:06] VITALS: BMI 24.0
[2023-02-26 16:16] VITALS: BP 149/88; PULSE 76; RESP 18; TEMP 36.8; O2SAT 98
[2023-02-26] MEDS: Nicotine Polacrilex 2 MG GUM PO ×2 (17:25→20:10)
[2023-02-26 20:17] VITALS: BP 130/73; PULSE 89; RESP 16; TEMP 36.6; O2SAT 100
[2023-02-26] MEDS: Lactulose 20 GM/30 ML UDC 10 GM PO (20:26)
[2023-02-26] MEDS: Pantoprazole Sodium 40 MG Tablet PO (20:27)
[2023-02-26] MEDS: Sucralfate 1 GM Tablet PO (20:27)
[2023-02-26] MEDS: traZODone 100 MG Tablet PO (22:11)
[2023-02-26] MEDS: Gabapentin 300 MG Capsule PO (23:37)
[2023-02-27] MEDS: Ondansetron 8 MG Tablet PO (00:28)
[2023-02-27 02:22] VITALS: BP 106/86; PULSE 84; RESP 16; TEMP 36.9; O2SAT 97
[2023-02-27] MEDS: Acetaminophen 500 MG Tablet PO (02:28)
[2023-02-27] MEDS: hydrOXYzine PAM 25 MG Capsule 50 MG PO (02:28)
[2023-02-27 06:40] LABS: Anion Gap 5 (5-15); BUN 15 mg/dL (7-18); BUN/Creat Ratio 11.7 RATIO (10-20); Calcium,Total 8.1 mg/dL (8.5-10.1); Chloride 98 mmol/L (98-107); Creatinine, Serum 1.28 mg/dL (0.70-1.30); EST Glomerular Filtration Rate 60 mL/min (>60); Est Glom Filt Rate - Afr Amer 72 mL/min (>60); Glucose 128 mg/dL (74-106); Potassium 3.6 mmol/L (3.5-5.1); Sodium Level 130 mmol/L (136-145)
--- NOTE | 2023-02-27 07:25 | PN.HOSP_ITS ---
Reason for Visit Reason for Visit: Diagnoses Alcohol abuse, uncomplicated (02/26/23) Unspecified disorder of adult personality and behavior (02/26/23) Subjective Subjective No events overnight. Objective Data Objective Data Vital Signs: Vital Signs Temp Pulse Resp BP Pulse Ox O2 Del Method 36.9 C 84 16 106/86 H 97 Room Air 02/27/23 02:22 02/27/23 02:22 02/27/23 02:22 02/27/23 02:22 02/27/23 02:22 02/27/23 02:22 Oxygen Delivery Method Room Air Weight: 73.7 kg Body Mass Index (BMI) 24.0 Intake & Output: Intake and Output for Last 24 Hours 02/25/23 02/26/23 02/27/23 23:59 23:59 23:59 Intake Total 350 / 350 100 / 100 Balance 350 / 350 100 / 100 Lab / Micro Data 02/26/23 14:20 02/27/23 05:52 Labs: Laboratory Results - last 24 hr 02/26/23 13:50: Urine Opiates Screen NEGATIVE, Urine Methadone Screen NEGATIVE, Ur Barbiturates Screen NEGATIVE, Ur Phencyclidine Scrn NEGATIVE, Ur Amphetamines Screen NEGATIVE, MDMA (Ecstasy) Screen NEGATIVE, U Benzodiazepines Scrn NEGATIVE, Urine Cocaine Screen NEGATIVE, U Cannabinoids Screen NEGATIVE, Ur Drug Screen Comment 02/26/23 14:20: WBC 5.9, RBC 3.31 L, Hgb 10.4 L, Hct 30.6 L, MCV 92.4, MCH 31.4, MCHC 34.0, RDW Std Deviation 46.5 H, RDW Coeff of Jesus 13.5, Plt Count 269, MPV 9.5, Immature Gran % (Auto) 0.500, Neut % (Auto) 79.6 H, Lymph % (Auto) 7.3 L, [place] % (Auto) 11.6 H, Eos % (Auto) 0.8, Baso % (Auto) 0.2, Absolute Neuts (auto) 4.7, Absolute Lymphs (auto) 0.43 L, Nucleated RBC % 0, Differential Comment SCANNED, Sodium 127 L, Potassium 3.9, Chloride 94 L, Carbon Dioxide 28.0, Anion Gap 5, BUN 18, Creatinine 1.36 H, Est GFR (MDRD) Af Amer 67, Est GFR (MDRD) Non- Af 56 L, BUN/Creatinine Ratio 13.2, Glucose 106, Calcium 8.3 L, Total Bilirubin 0.30, AST 27, ALT 17, Alkaline Phosphatase 97, Total Protein 6.1 L, Albumin 2.8 L, Globulin 3.3, Albumin/Globulin Ratio 0.8 L, Ethyl Alcohol < 3.0 02/27/23 05:52: Sodium 130 L, Potassium 3.6, Chloride 98, Carbon Dioxide 27.0, A nion Gap 5, BUN 15, Creatinine 1.28, Estim Creat Clear Calc 56.00, Est GFR (MDRD) Af Amer 72, Est GFR (MDRD) Non-Af 60, BUN/Creatinine Ratio 11.7, Glucose 128 H, Calcium 8.1 L Physical Exam Const alert and no apparent distress Constitutional Narrative: pleasant. HEENT head/scalp atraumatic Neuro Sensorium / Orientation: awake and alert Assessment & Plan Assessment/Plan (1) ETOH abuse: PLAN: Patient voluntarily requesting evaluation for further alcohol detoxification program. Patient states that he was advised by when ED to come to the hospital for evaluation. Patient denies any complaints at this time and states that he only had 1 beer today and vodka on the but before that had not had any alcohol. Patient does have a history of very severe alcohol withdrawal but patient at this time appears to be low risk for that. We will hold off in any treatment with phenobarbital at this time unless his condition changes. My plan is just to monitor him overnight and if he does okay then to have him be seen by addiction medicine and set up an outpatient program. Thiamine and folate. No events overnight. Plan is for patient to go to [facility], which is a 12-month program. Patient is agreeable. (2) Behavior concern in adult: PLAN: Patient has history of inappropriate comments as well as inappropriate touching female staff. I addressed these issues directly with the patient today that he may speak with staff that cares for him but he must refrain from using inappropriate comments and I told him specifically that his jokes simply are not funny. I explained to him that we are here to try to help him and inappropriate touching will not be tolerated as he had done during the previous hospitalization back in November. Patient states that he has no recollection of that, given his compromised state that certainly may be the case. He did appear to be understanding and states that he would comply PLAN: Plan Chronic conditions * Duodenal ulcers: Continue with PPI and sucralfate. * History of anemia secondary to bleeding duodenal ulcer. Hemoglobin has trended upwards and currently 10.4. * Hyponatremia likely associated with alcohol consumption. Monitor for now. VTE prophylaxis: Low risk given current observation status. Disposition: Being brought in as observation status.
[2023-02-27] MEDS: Thiamine Hydrochloride 100 MG Tablet PO (10:17)
[2023-02-27] MEDS: Pantoprazole Sodium 40 MG Tablet PO (10:17)
[2023-02-27] MEDS: Sucralfate 1 GM Tablet PO ×2 (10:17→12:37)
[2023-02-27] MEDS: Folic Acid 1 MG Tablet PO (10:17)
[2023-02-27] MEDS: Lactulose 20 GM/30 ML UDC 10 GM PO (10:17)
[2023-02-27 10:30] VITALS: BP 135/93; PULSE 79; RESP 18; TEMP 36.6; O2SAT 98
--- NOTE | 2023-02-27 11:58 | ADDICTION ---
This investment underwriter met with PT to conduct ASAM, MSE, AUDIT, DUDIT assessments and to plan for d/c. PT A+Ox4 and participated actively. All assessments completed and placed in PT's chart. PT plans to f/u with [facility] today for follow-up inpatient treatment services. Pt's tanner Dhaliwal will provide transportation post d/c from [facility].
--- NOTE | 2023-02-27 12:22 | DS.PCM_ITS ---
Providers Date of Admission: 02/26/23 Primary Care Physician: Dr. Rena pSringer MD Reason For Visit: ETOH DETOX Diagnosis Discharge Diagnosis (1) ETOH abuse: Status: Acute Code(s): F10.10 - Alcohol abuse, uncomplicated Plan: Patient voluntarily requesting evaluation for further alcohol detoxification program. Patient states that he was advised by when ED to come to the hospital for evaluation. Patient denies any complaints at this time and states that he only had 1 beer today and vodka on the but before that had not had any alcohol. Patient does have a history of very severe alcohol withdrawal but patient at this time appears to be low risk for that. We will hold off in any treatment with phenobarbital at this time unless his condition changes. My plan is just to monitor him overnight and if he does okay then to have him be seen by addiction medicine and set up an outpatient program. Thiamine and folate. No events overnight. Plan is for patient to go to [facility], wh ich is a 12-month program. Patient is agreeable. (2) Behavior concern in adult: Status: Acute Code(s): F69 - Unspecified disorder of adult personality and behavior Plan: Patient has history of inappropriate comments as well as inappropriate touching female staff. I addressed these issues directly with the patient today that he may speak with staff that cares for him but he must refrain from using inappropriate comments and I told him specifically that his jokes simply are not funny. I explained to him that we are here to try to help him and inappropriate touching will not be tolerated as he had done during the previous hospitalization back in November. Patient states that he has no recollection of that, given his compromised state that certainly may be the case. He did appear to be understanding and states that he would comply Plan Chronic conditions * Duodenal ulcers: Continue with PPI and sucralfate. * History of anemia secondary to bleeding duodenal ulcer. Hemoglobin has trended upwards and currently 10.4. * Hyponatremia likely associated with alcohol consumption. Monitor for now. VTE prophylaxis: Low risk given current observation status. Disposition: Being brought in as observation status. Medications at Discharge Home Medications pantoprazole 40 mg tablet,delayed release (Protonix) 40 mg PO BID 30 days #60 tabs 12/23/22 sucralfate 1 gram tablet 1 g PO Q6H 30 days #120 tabs 12/23/22 acetaminophen 500 mg tablet 500 mg PO Q4H PRN PRN Pain 1-10 or Temp > 100.4 F #0 tabs 02/27/23 multivitamin 1 tab PO DAILY #30 tabs 02/27/23 Hospital Course Operations None Procedures None Summary of Care Provided Minutes Spent on Discharge: 32 Weight / BMI Weight Weight: 73.7 kg Body Mass Index (BMI) 24.0 ABG / Lab / Microbiology Data 02/26/23 14:20 02/27/23 05:52 Laboratory: Laboratory Results - last 24 hr 02/26/23 13:50: Urine Opiates Screen NEGATIVE, Urine Methadone Screen NEGATIVE, Ur Barbiturates Screen NEGATIVE, Ur Phencyclidine Scrn NEGATIVE, Ur Amphetamines Screen NEGATIVE, MDMA (Ecstasy) Screen NEGATIVE, U Benzodiazepines Scrn NEGATIVE, Urine Cocaine Screen NEGATIVE, U Cannabinoids Screen NEGATIVE, Ur Drug Screen Comment 02/26/23 14:20: WBC 5.9, RBC 3.31 L, Hgb 10.4 L, Hct 30.6 L, MCV 92.4, MCH 31.4, MCHC 34.0, RDW Std Deviation 46.5 H, RDW Coeff of Jesus 13.5, Plt Count 269, MPV 9.5, Immature Gran % (Auto) 0.500, Neut % (Auto) 79.6 H, Lymph % (Auto) 7.3 L, [place] % (Auto) 11.6 H, Eos % (Auto) 0.8, Baso % (Auto) 0.2, Absolute Neuts (auto) 4.7, Absolute Lymphs (auto) 0.43 L, Nucleated RBC % 0, Differential Comment SCANNED, Sodium 127 L, Potassium 3.9, Chloride 94 L, Carbon Dioxide 28.0, Anion Gap 5, BUN 18, Creatinine 1.36 H, Est GFR (MDRD) Af Amer 67, Est GFR (MDRD) Non- Af 56 L, BUN/Creatinine Ratio 13.2, Glucose 106, Calcium 8.3 L, Total Bilirubin 0.30, AST 27, ALT 17, Alkaline Phosphatase 97, Total Protein 6.1 L, Albumin 2.8 L, Globulin 3.3, Albumin/Globulin Ratio 0.8 L, Ethyl Alcohol < 3.0 02/27/23 05:52: Sodium 130 L, Potassium 3.6, Chloride 98, Carbon Dioxide 27.0, Anion Gap 5, BUN 15, Creatinine 1.28, Estim Creat Clear Calc 56.00, Est GFR (MDRD) Af Amer 72, Est GFR (MDRD) Non-Af 60, BUN/Creatinine Ratio 11.7, Glucose 128 H, Calcium 8.1 L D/C Instructions Discharge Diet: No restrictions Meaningful Use Info Meaningful Use Diagnoses (Choose all that apply): None applicable Discharge Plan Admission Admit Date/Time: 02/26/23 15:32 Primary Reason for Your Visit: alcohol withdrawal. Attending Provider: Galen Souza Primary Care Provider: Rena Springer Discharge Orders/Prescriptions Prescriptions: New acetaminophen 500 mg Tablet 500 mg PO Q4H PRN PRN (Reason: Pain 1-10 or Temp > 100.4 F) Qty: 0 0RF multivitamin Tablet 1 tab PO DAILY Qty: 30 0RF Continued pantoprazole [Protonix] 40 mg tablet,delayed release (DR/EC) 40 mg PO BID 30 Days Qty: 60 1RF sucralfate 1 gram tablet 1 g PO Q6H 30 Days Qty: 120 0RF Discontinued doxycycline hyclate 100 mg tablet 100 mg PO BID 13 Days Qty: 26 0RF lactulose 20 gram/30 mL Solution 10 g PO BID 30 Days Qty: 900 0RF Referrals / Follow Up: [facility] [Provider Group] - Within 3 Months Rena Springer MD [Primary Care Provider] - Within 2 Weeks Disposition Disposition (needs filled in before D/C Order can be placed): Home, Self Care Charges/Coding Visit Charges Inpatient E&M: 76414 Disch Hosp >30min
--- NOTE | 2023-02-27 13:36 | CHAPLAIN ---
Type of Pastoral Visit _x__ Initial Visit ___ Follow-up Visit ___ On-call Visit ___ General Patient Visit ___ Spiritual Assessment ___ Family Conference ___ Bereavement ___ Rapid Response ___ Code Blue ___ Other (describe below) Pastoral Care Referral From _x__ Patient _x__ Family ___ Nurse ___ Physician ___ Senior Manager Quality Assurance ___ Lamp Cleaner ___ Other (describe below) Sacrament/Intervention _x__ Active listening ___ Anointing ___ Pentecostal ___ Bereavement ___ Communion _x__ Estrella exploration ___ _x__ Life review _x__ Prayer ___ Reconciliation ___ Sacrament of Sick _x__ Supportive presence ___ Wedding ___ Other (describe below) Pastoral Comments patient is very talkative about his life, his past, his family, his estrella, and his hope of getting better; talked about a plan for support in recovery; pt is vague about details but includes developing/restoring his estrella in God and going to voodoo as some priorities; pt has family but unknown how involved they are with his support; pt asks for further visits and for prayers
--- NOTE | 2023-02-27 15:16 | CASEMGMT ---
Social Work Med Surge 3 ? Patient indicated that he has concerns with transportation. Sw presented to bedside, introduced self to patient and explained reason for sw involvement at this time. Sw completed SDOH with patient. Sw discussed transportation difficulties at this time. Patient states that he got an [employer] two weeks ago and has court in [place]. Patient states that he could potentially spend 3 [place]. Patient states that he is not worried about that. Patient reports that when he has a medical appointment or somewhere he needs to be he has family members that will help transport him. Sw provided support and offered several times to provide patient with information on transportation services. Marcy Sales, DOCUMENTATION ANALYST, MIXING OPERATOR
[2023-02-27 15:21] VITALS: BP 123/71; PULSE 89; RESP 18; TEMP 36.6; O2SAT 98
== END 2023-02-27 15:24 | disposition home or self-care (01) ==
LOC: ED 15:18 → MS3 16:10
PROVIDERS: Emergency Provider Student in an Organized Health Care Education/Training Program; PCP Family Medicine
DX: F10.10 Alcohol abuse, uncomplicated (principal); E86.0 Dehydration; F17.220 Nicotine dependence, chewing tobacco, uncomplicated; E87.1 Hypo-osmolality and hyponatremia; F69 Unspecified disorder of adult personality and behavior; Z79.899 Other long term (current) drug therapy; K26.4 Chronic or unspecified duodenal ulcer with hemorrhage; D64.9 Anemia, unspecified
CPT/HCPCS: 36415; 80048; 80053; 80307; 82077; 85025; 99221; 99282; A4216; G0378

== ENCOUNTER 2023-03-06 13:02 | Emergency (ER) | payer MEDICARE, SELFPAY ==
[2023-03-06 13:04] VITALS: BP 137/81; PULSE 94; RESP 18; TEMP 36.4; O2SAT 100; BMI 24.7
--- NOTE | 2023-03-06 13:42 | EKG12_ITS ---
Test Reason : SYNCOPE Blood Pressure : / mmHG Vent. Rate : 089 BPM Atrial Rate : 089 BPM P-R Int : 148 ms QRS Dur : 082 ms QT Int : 356 ms P-R-T Axes : 082 070 075 degrees QTc Int : 433 ms Normal sinus rhythm Normal ECG Confirmed by BECCA BERNAL, CAROL ([id number]), field map editor LOUIS IZQUIERDO ([id number]) on 03/12/2023 9:04:02 AM Referred By: Confirmed By:LACY HUDSON MD
--- NOTE | 2023-03-06 13:42 | EX.ED.DYSGE1 ---
HPI History of Present Illness Chief Complaint: Syncope Informant: patient Narrative Narrative: Patient brought in by EMS concerning syncopal episode. Released from detention today. Patient reports he got intoxicated last night and up in detention unclear how. Unclear where he passed out. The denies any current symptoms. Denies nausea or vomiting. Denies bloody stools. Denies chest pains or shortness of breath. This is happened to him before. History of prediabetes. Currently feels his normal self. Prior similar symptoms: Yes PFSH PFSH Medical History Acute blood loss anemia Alcohol withdrawal Anxiety Anxiety and depression At high risk for malnutrition Behavior concern in adult Chewing tobacco use COPD (chronic obstructive pulmonary disease) Depression ETOH abuse GI bleed History of cancer tonsil Hypertension Hyponatremia Irregular heart beat Smoker Substance abuse Home Medications pantoprazole 40 mg tablet,delayed release (Protonix) 40 mg PO BID 30 days #60 tabs 12/23/22 [Rx Last Taken 01/05/23] sucralfate 1 gram tablet 1 g PO Q6H 30 days #120 tabs 12/23/22 [Rx Last Taken 01/05/23] acetaminophen 500 mg tablet 500 mg PO Q4H PRN PRN Pain 1-10 or Temp > 100.4 F #0 tabs 02/27/23 [Rx Last Taken Unknown] multivitamin 1 tab PO DAILY #30 tabs 02/27/23 [Rx Last Taken Unknown] Allergy/AdvReac Type Severity Reaction Status Date / Time poison mike extract Allergy Mild RASH Verified 03/06/23 13:04 Family History Mother Diabetes Father Diabetes Brother Colon cancer Surgical History History of tonsillectomy and adenoidectomy Social History household members: other details: Lives with his son. Smoking Status: Current every day smoker tobacco type: smokeless tobacco Smokeless tobacco user: chewing tobacco and other alcohol intake: current alcohol intake frequency: 3 or more drinks per day details: 8-10 beers daily coupled with hard liquor. substance use type: does not use ROS ROS ED Constitutional Constitutional ED: Denies chills, fever(s) or sweats Eyes Eyes: Denies change in vision ENT ENT ED: Denies dysphagia or sore throat Cardiovascular Cardiovascular: Denies chest pain, leg edema, palpitations or racing heartbeat Respiratory/Chest Respiratory/Chest: Denies cough, dyspnea or dyspnea on exertion Gastrointestinal Gastrointestinal: Denies abdominal pain, diarrhea, nausea or vomiting Genitourinary Genitourinary ED: Denies dysuria, hematuria or urinary frequency Musculoskeletal Musculoskeletal: Denies back pain, extremity pain or neck pain Integumentary Denies rash or wounds Neurologic Neurologic: Denies headache(s), paresthesias or weakness EXAM Physical Exam Const Vital Signs: 03/06/23 13:04 03/06/23 13:03 Temperature 97.6 F L Temperature Source Temporal Pulse Rate 94 Respiratory Rate 18 Respiratory Effort Normal Respiratory Pattern Normal Blood Pressure 137/81 H Blood Pressure Mean 99 Pulse Ox 100 Oxygen Delivery Method Room Air Positive well nourished and well developed General Appearance ED: well developed and NAD HEENT Reports moist mucous membranes normocephalic and atraumatic Eyes PERRL, EOMs intact bilaterally and conjunctivae normal General Eye ED: Yes normal appearance of both eyes Neck no lymphadenopathy and supple General: Negative for tenderness Chest Wall Chest: Negative for tenderness Resp normal respiratory effort and normal air movement Effort and Inspection: symmetric chest movement; Negative for respiratory distress Cardio regular rate, regular rhythm and no murmurs Peripheral Pulses: pulses 2+ throughout GI normal to inspection, nondistended, normoactive bowel sounds and non-tender Palpation: Negative for guarding or rebound tenderness present Back/Spine no CVA tenderness and no thoracic nor lumbar tenderness Extremity normal to inspection General Extremety ED: Negative for edema or tenderness General Extremity: Negative for edema Neuro oriented x3, CN's II-XII intact bilaterally and no sensory deficits noted Sensorium / Orientation: awake and alert Skin no rashes or lesions noted and no wounds MDM MDM MDM Narrative Medical decision making narrative: Interventions / MDM: Differential diagnosis: Syncope Diagnosis considered but do not suspect: Cardiac dysrhythmia however no EKG findings or cardiac dysrhythmias on the monitor. My EKG interpretation: Sinus rate of 89, no ST or T wave changes. QTc 433. Imaging independently reviewed and interpreted by myself: N/A External documents reviewed: N/A Test considered but not ordered:N/A ED course: Patient clinically feeling back to normal. EKG normal. No on the monitor double reads of T waves causing tachycardiac reads. Labs and electrolytes are stable. IV fluids ordered. Re-evaluation: stable, eating with no difficulties. Patient ambulated department nursing little unstable. Discussed with patient, he states he would like to go home. Therefore with normal work-up with labs and EKG, be discharged with outpatient follow-up with return precautions. All questions were answered. Disposition discussed with patient/family/significant other: Patient Case discussed with consulting clinician: N/A This note was generated with [employer] dictation software. It may contain incorrect words, spelling, and punctuation that were not noted in checking the note before signing. Lab Data Attestation: I reviewed the patient's lab results. Labs: Laboratory Results - last 24 hr 03/06/23 13:50 WBC 4.9 RBC 3.72 L Hgb 11.6 L Hct 35.2 L MCV 94.6 H MCH 31.2 MCHC 33.0 RDW Std Deviation 47.8 H RDW Coeff of Jesus 13.7 Plt Count 374 MPV 9.0 Immature Gran % (Auto) 1.000 H Neut % (Auto) 85.8 H Lymph % (Auto) 5.1 L [place] % (Auto) 7.1 Eos % (Auto) 0.2 Baso % (Auto) 0.8 Absolute Neuts (auto) 4.2 Absolute Lymphs (auto) 0.25 L Nucleated RBC % 0 Differential Comment SCANNED Sodium 136 Potassium 4.5 Chloride 105 Carbon Dioxide 22.0 Anion Gap 9 BUN 7 Creatinine 1.07 Estim Creat Clear Calc 66.99 Est GFR (MDRD) Af Amer 89 Est GFR (MDRD) Non-Af 73 BUN/Creatinine Ratio 6.5 L Glucose 90 Calcium 8.4 L Discharge Plan Triage Chief Complaint: Syncope ED Provider: Brandyn Mchugh Dx/Rx/DC Orders Clinical Impression: Alcohol dependence, Syncope Instructions: Alcohol Addiction, ED Fainting, Uncertain Cause Prescriptions: No Action pantoprazole [Protonix] 40 mg tablet,delayed release (DR/EC) 40 mg PO BID 30 Days Qty: 60 1RF sucralfate 1 gram tablet 1 g PO Q6H 30 Days Qty: 120 0RF acetaminophen 500 mg Tablet 500 mg PO Q4H PRN PRN (Reason: Pain 1-10 or Temp > 100.4 F) Qty: 0 0RF multivitamin Tablet 1 tab PO DAILY Qty: 30 0RF Primary Care Provider: Rena Springer Referrals: Rena Springer MD [Primary Care Provider] - 3-5 Days Activity Restrictions/Additional Instructions: EKG and labs are stable. Alcohol cessation. Follow-up with your doctor. Return if worsening symptoms. Disposition Disposition: Home, Self Care
[2023-03-06] MEDS: 0.9% Normal Saline 1,000 ML 1000 ML IV (13:57)
[2023-03-06 13:58] LABS: Absolute Lymphocyte Count 0.25 X10^3/uL (0.83-4.51); Absolute Neutrophil Count 4.2 X10^3/uL (2.0-7.7); Basophil# 0.04 X10^3/uL; Basophil% 0.8 % (0-1); Eosinophil# 0.01 X10^3/uL; Eosinophils% 0.2 % (0-5); Hematocrit 35.2 % (40-54); Hemoglobin 11.6 g/dL (13.0-16.5); Lymphocyte # 0.25 X10^3/ul (0.83-4.51); Lymphocyte % 5.1 % (19-41); Mean Corpuscular Hgb 31.2 pg (27.0-32.0); Mean Corpuscular Volume 94.6 fL (80-94); Monocyte# 0.35 X10^3/uL; Monocyte% 7.1 % (0-10); NRBC Flagged by Analyzer 0 % (0-5); Neutrophil # 4.22 X10^3/uL (2.7-7.7); Neutrophil % 85.8 % (47-70); POSITIVE DIFFERENTIAL YES; Platelet Count 374 K/mm3 (150-450); RBC Distribution Width CV 13.7 % (11.6-14.6); RBC Distribution Width SD 47.8 fl (35.1-43.9); Red Blood Count 3.72 M/mm3 (4.6-6.2); White Blood Count 4.9 K/mm3 (4.4-11.0)
[2023-03-06 13:59] LABS: Differential Indicated SCAN CRITERIA MET
[2023-03-06 14:08] LABS: Differential Comment SCANNED
[2023-03-06 14:10] LABS: Anion Gap 9 (5-15); BUN 7 mg/dL (7-18); BUN/Creat Ratio 6.5 RATIO (10-20); Calcium,Total 8.4 mg/dL (8.5-10.1); Chloride 105 mmol/L (98-107); Creatinine, Serum 1.07 mg/dL (0.70-1.30); EST Glomerular Filtration Rate 73 mL/min (>60); Est Glom Filt Rate - Afr Amer 89 mL/min (>60); Estimated Creatinine Clearance 66.99 ml/min; Glucose 90 mg/dL (74-106); Potassium 4.5 mmol/L (3.5-5.1); Sodium Level 136 mmol/L (136-145)
[2023-03-06 16:00] VITALS: BP 140/78; PULSE 78; RESP 16; TEMP 36.6; O2SAT 99
== END 2023-03-06 16:39 | disposition home or self-care (01) ==
PROVIDERS: Emergency Provider Emergency Medicine; PCP Family Medicine; Visit Provider Emergency Medicine
DX: R55 Syncope and collapse (principal); F10.20 Alcohol dependence, uncomplicated; Y90.9 Presence of alcohol in blood, level not specified; F17.220 Nicotine dependence, chewing tobacco, uncomplicated
CPT/HCPCS: 80048; 85025; 93005; 99285; A4216

== ENCOUNTER 2023-04-16 14:39 | Emergency (ER) | payer MEDICARE, SELFPAY ==
[2023-04-16 14:42] VITALS: BP 137/93; PULSE 104; RESP 18; TEMP 36.2; O2SAT 100
[2023-04-16 15:23] LABS: Bedside Glucose 43 mg/dL (74-106)
[2023-04-16 15:34] LABS: Absolute Neutrophil Count 6.8 X10^3/uL (2.0-7.7); Basophil# 0.03 X10^3/uL; Basophil% 0.4 % (0-1); Eosinophil# 0.01 X10^3/uL; Eosinophils% 0.1 % (0-5); Hematocrit 37.3 % (40-54); Hemoglobin 12.9 g/dL (13.0-16.5); Mean Corp Hgb Conc 34.6 g/dL (32-36); Mean Corpuscular Hgb 32.9 pg (27.0-32.0); Mean Corpuscular Volume 95.2 fL (80-94); Mean Platelet Vol. 8.9 fl (6.2-12.0); Monocyte# 0.26 X10^3/uL; Monocyte% 3.5 % (0-10); NRBC Flagged by Analyzer 0 % (0-5); Neutrophil % 91.2 % (47-70); POSITIVE DIFFERENTIAL YES; Platelet Count 329 K/mm3 (150-450); RBC Distribution Width CV 13.5 % (11.6-14.6); RBC Distribution Width SD 47.3 fl (35.1-43.9); Red Blood Count 3.92 M/mm3 (4.6-6.2); White Blood Count 7.5 K/mm3 (4.4-11.0)
[2023-04-16 15:35] LABS: Differential Indicated SCAN CRITERIA MET
--- NOTE | 2023-04-16 15:35 | EX.ED.DYSGE1 ---
HPI History of Present Illness Chief Complaint: Weakness Informant: patient Narrative Narrative: Patient is a 68-year-old male with history of alcohol abuse presenting after a syncopal episode. Apparently patient was at the court house waiting for the data warehouse analyst, he states he been sitting on the bench waiting for about an hour when he started feel lightheaded and the next thing he knew he woke up laying on the bench. He told his content strategist to call 911. Patient's blood glucose was 58 per EMS. He was given oral glucose in route. Patient does have extensive history of alcohol abuse and alcohol withdrawal. He does not recall the last time he ate he also does not recall the last time he drank. Patient denies any other complaints at this time such as chest pain, shortness breath or difficulty breathing. PFSH PFS Medical History Acute blood loss anemia Alcohol withdrawal Anxiety Anxiety and depression At high risk for malnutrition Behavior concern in adult Chewing tobacco use COPD (chronic obstructive pulmonary disease) Depression ETOH abuse GI bleed History of cancer tonsil Hypertension Hyponatremia Irregular heart beat Smoker Substance abuse Allergy/AdvReac Type Severity Reaction Status Date / Time poison mike extract Allergy Mild RASH Verified 04/16/23 14:42 Family History Mother Diabetes Father Diabetes Brother Colon cancer Surgical History History of tonsillectomy and adenoidectomy Social History household members: other details: Lives with his son. Smoking Status: Former smoker Smokeless tobacco user: chewing tobacco and other alcohol intake: current alcohol intake frequency: 3 or more drinks per day details: 8-10 beers daily coupled with hard liquor. substance use type: does not use ROS ROS ED Constitutional Constitutional ED: Denies chills or fever(s) ENT ENT ED: Denies rhinorrhea or sore throat Cardiovascular Cardiovascular: Denies chest pain Respiratory/Chest Respiratory/Chest: Denies cough Gastrointestinal Gastrointestinal: Reports nausea; Denies vomiting Musculoskeletal Musculoskeletal: Denies arthralgias or myalgias Integumentary Denies rash Neurologic Neurologic: Reports weakness and other Details: Nataly ; Denies headache(s) Psychiatric Psychiatric: Denies anxiety EXAM Physical Exam Const Vital Signs: 04/16/23 14:42 04/16/23 15:40 04/16/23 17:40 Temperature 97.1 F L Temperature Source Temporal Pulse Rate 104 H 96 92 Respiratory Rate 18 26 H 14 Blood Pressure 137/93 H 155/78 H 149/85 H Blood Pressure Mean 107 103 106 Pulse Ox 100 100 98 Oxygen Delivery Method Room Air Room Air Room Air Positive well nourished and well developed General Appearance ED: well developed and NAD HEENT Reports moist mucous membranes Eyes PERRL and EOMs intact bilaterally Neck supple Chest Wall inspection of chest normal and palpation of chest normal Resp normal respiratory effort and clear to auscultation bilaterally Cardio regular rhythm and no murmurs Rate: tachycardic GI normal to inspection, nondistended, normoactive bowel sounds and non-tender Extremity normal to inspection Neuro oriented x3 Neuro Narrative: Tremulous slightly confused such as does not know the last time he ate or drink Sensorium / Orientation: alert Motor Exam: general weakness Psych mental status grossly normal Skin no rashes or lesions noted Skin Narrative: Patient has a healing abrasion just above his left eye. States it was from a minor fall MDM MDM MDM Narrative Medical decision making narrative: Patient's blood sugar is now 43. Is given the remainder of oral glucose packet (15 g) as well as 2 things orange juice. Blood sugar is now 60. We will give a bolus of D10 as well as IV thiamine and B12 orally. Patient's differential is also concerning for arrhythmia, DTs/alcohol withdraw and possible Warnicke's encephalopathy. After the bolus of D10 patient clinically is much improved. He is mentating much better. He is observed in the ER and his blood sugar I would recheck at approximately 1830 is now 120. Patient is now able to tell me he has not eaten in 2 to 3 days because I does have not been hungry. He does have access to food. He states that he is continue to drink beer but not drinking as heavily as before 180. While he is mildly hypertensive and has a mildly elevated heart rate he is mentating appropriately. I did discuss my concerns of him going into DTs. He states he is probably can go home and have a beer. He is encouraged to return the emergency room if he would like to be reevaluated for alcohol detox. At this time I suspect patient's episode was associate with hypoglycemia. It seems to be secondary to decreased oral intake. I think he stable for discharge at this time and does not require extended monitoring for his blood sugar. He is not on any insulin or diabetic medications that have to metabolized off. Lab Data Attestation: I reviewed the patient's lab results. Labs: Laboratory Results - last 24 hr 04/16/23 04/16/23 04/16/23 15:00 15:04 15:33 WBC 7.5 RBC 3.92 L Hgb 12.9 L Hct 37.3 L MCV 95.2 H MCH 32.9 H MCHC 34.6 RDW Std Deviation 47.3 H RDW Coeff of Jesus 13.5 Plt Count 329 MPV 8.9 Immature Gran % (Auto) 0.800 Neut % (Auto) 91.2 H Lymph % (Auto) 4.[address] [place] % (Auto) 3.5 Eos % (Auto) 0.1 Baso % (Auto) 0.4 Absolute Neuts (auto) 6.8 Absolute Lymphs (auto) 0.30 L Nucleated RBC % 0 Differential Comment Sodium 135 L Potassium 4.6 Chloride 99 Carbon Dioxide 22.0 Anion Gap 14 BUN 10 Creatinine 1.29 Estim Creat Clear Calc 57.38 Est GFR (MDRD) Af Amer 71 Est GFR (MDRD) Non-Af 59 L BUN/Creatinine Ratio 7.8 L Glucose 62 L Calcium 9.1 Total Bilirubin 0.60 AST 30 ALT 15 L Alkaline Phosphatase 101 Total Protein 7.3 Albumin 3.5 Globulin 3.8 Albumin/Globulin Ratio 0.9 Vitamin B12 Urine Color Urine Clarity Urine pH Ur Specific Lee Urine Protein Urine Glucose (UA) Urine Ketones Urine Occult Blood Urine Nitrite Urine Bilirubin Urine Urobilinogen Ur Leukocyte Esterase Urine RBC Urine WBC Ur Squamous Epith Cells Urine Bacteria Urine Mucus Ethyl Alcohol 17.0 POC Glucose 43 L* 60 L 04/16/23 04/16/23 04/16/23 15:44 16:22 16:35 WBC RBC Hgb Hct MCV MCH MCHC RDW Std Deviation RDW Coeff of Jesus Plt Count MPV Immature Gran % (Auto) Neut % (Auto) Lymph % (Auto) [place] % (Auto) Eos % (Auto) Baso % (Auto) Absolute Neuts (auto) Absolute Lymphs (auto) Nucleated RBC % Differential Comment Sodium Potassium Chloride Carbon Dioxide Anion Gap BUN Creatinine Estim Creat Clear Calc Est GFR (MDRD) Af Amer Est GFR (MDRD) Non-Af BUN/Creatinine Ratio Glucose Calcium Total Bilirubin AST ALT Alkaline Phosphatase Total Protein Albumin Globulin Albumin/Globulin Ratio Vitamin B12 319 Urine Color Yellow Urine Clarity Clear Urine pH 6.0 Ur Specific Lee 1.015 Urine Protein Negative Urine Glucose (UA) Normal Urine Ketones 15 H Urine Occult Blood Negative Urine Nitrite Negative Urine Bilirubin Negative Urine Urobilinogen Normal Ur Leukocyte Esterase Negative Urine RBC 0 SEEN Urine WBC 0 SEEN Ur Squamous Epith Cells 0-5 SEEN Urine Bacteria 0 SEEN Urine Mucus 0 SEEN Ethyl Alcohol POC Glucose 94 Rhythm Strip Rhythm Strip: Sinus Rhythm Rate: 91 Ectopy: None EKG Initial EKG: Attestation: I personally reviewed and interpreted this EKG as follows: Interpretation: Sinus Rhythm Comments: Normal sinus rhythm with sinus arrhythmia at a rate of 91 bpm Normal axis Normal intervals Normal ST segments Compared to prior EKG on 03/06/2023, no significant change Discharge Plan Triage Chief Complaint: Weakness ED Provider: Sandhya Bailey Dx/Rx/DC Orders Clinical Impression: Hypoglycemia Instructions: ED Hypoglycemia, Nondiabetic Primary Care Provider: Rena Springer Referrals: Rena Springer MD [Primary Care Provider] - Activity Restrictions/Additional Instructions: Please make sure you are eating regularly so you do not have further episodes of low blood sugar. Please continue to follow-up with 180 for your drinking. Return the ER if you have further concerns or needs.
[2023-04-16 15:40] VITALS: BP 155/78; PULSE 96; RESP 26; O2SAT 100
[2023-04-16 15:45] VITALS: BMI 24.3
[2023-04-16 15:51] LABS: Bedside Glucose 60 mg/dL (74-106)
[2023-04-16 15:55] LABS: ALB/GLOB Ratio 0.9 RATIO (0.9-2.4); AST(SGOT) 30 U/L (15-37); Alanine Aminotransfer ALT/SGPT 15 U/L (16-61); Albumin, Serum 3.5 g/dL (3.2-5.0); Alkaline Phosphatase 101 U/L (45-117); Anion Gap 14 (5-15); BUN 10 mg/dL (7-18); BUN/Creat Ratio 7.8 RATIO (10-20); Calcium,Total 9.1 mg/dL (8.5-10.1); Chloride 99 mmol/L (98-107); Creatinine, Serum 1.29 mg/dL (0.70-1.30); EST Glomerular Filtration Rate 59 mL/min (>60); Est Glom Filt Rate - Afr Amer 71 mL/min (>60); Estimated Creatinine Clearance 57.38 ml/min; Globulin 3.8 g/dL (2.2-4.2); Glucose 62 mg/dL (74-106); Potassium 4.6 mmol/L (3.5-5.1); Protein, Total 7.3 g/dL (6.4-8.2); Sodium Level 135 mmol/L (136-145)
[2023-04-16] MEDS: 0.9% Normal Saline (1000mL) 1,000 ML 1000 ML IV (15:56)
[2023-04-16] MEDS: Thiamine Hydrochloride 100 MG in 0.9% Normal Saline (50mL Bag) 50 ML 200 MG IV (15:56)
[2023-04-16 16:11] LABS: Vitamin B12 319 pg/mL (211-911)
[2023-04-16 16:40] LABS: Bedside Glucose 94 mg/dL (74-106)
[2023-04-16 16:49] LABS: Bacteria 0 SEEN /hpf (None Seen); Mucous, Urine 0 SEEN /hpf (<or=2+); Red Blood Cells-Urine 0 SEEN /hpf (0-5); White Blood Cells 0 SEEN /hpf (0-5)
[2023-04-16 16:52] LABS: Color, Urine Yellow (Yellow); Glucose, Dipstick Normal (Normal); Ketone-Dipstick 15 mg/dl (Negative); Leukocyte Esterase-Dipstick Negative /ul (Negative); Nitrite-Dipstick Negative (Negative); Occult Blood-Urine Negative /ul (Negative); Protein-Dipstick Negative (Negative); Specific Gravity, Urine 1.015 (1.002-1.030); Urine Bilirubin Dipstick Negative (Negative); Urine Clarity Clear (Clear); Urine Urobilinogen Normal (Normal)
[2023-04-16 16:58] LABS: Squamous Epithelial Cells - UA 0-5 SEEN /hpf (0-5)
[2023-04-16 17:40] VITALS: BP 149/85; PULSE 92; RESP 14; O2SAT 98
[2023-04-16 18:37] LABS: Bedside Glucose 120 mg/dL (74-106)
[2023-04-16 19:04] LABS: Bedside Glucose 134 mg/dL (74-106)
== END 2023-04-16 18:46 | disposition home or self-care (01) ==
PROVIDERS: Emergency Provider Emergency Medicine; PCP Family Medicine; Visit Provider Emergency Medicine
DX: E16.2 Hypoglycemia, unspecified (principal); Z87.891 Personal history of nicotine dependence
CPT/HCPCS: 80053; 81001; 82077; 82607; 82962; 85025; 93005; 96365; 96375; 99283; J7030; A4216; J3490

== ENCOUNTER 2023-05-16 09:39 | Inpatient (IN) | payer MEDICARE, SELFPAY ==
[2023-05-16] VITALS (7 sets, daily range): BP systolic 144–161; BP diastolic 83–109; PULSE 80–101; RESP 15–18; TEMP 36.1–37.1; O2SAT 100; BMI 22.1
--- NOTE | 2023-05-16 10:07 | CT_ITS ---
INDICATION: Trauma EXAMINATION: CT BRAIN - CT Head or Brain W/O Contrast Injection TECHNIQUE: Multiple axial images were obtained of the head without intravenous contrast. A radiation dose optimization technique was used for this scan. IV Contrast dosage and agent: None. RADIATION DOSAGE (If Supplied By Facility): CTDIvol = ( 44.99 ) mGy, DLP = ( 829.85 ) mGycm COMPARISON: Prior study dated: 02/24/2023. FINDINGS: BRAIN PARENCHYMA: No intra- or extra-axial hemorrhage. No evidence of acute infarct. No intracranial mass or mass effect. There is preservation of the boo/white matter interface. There are chronic periventricular deep white matter changes likely due to microvascular disease. Posterior fossa structures are unremarkable. Atherosclerotic calcifications of the cavernous internal carotid arteries. CSF SPACES: Mild diffuse atrophy. No hydrocephalus. Basal cisterns are patent. CALVARIUM, SKULL BASE, PARANASAL SINUSES AND MASTOID AIR CELLS: Frontal scalp soft tissue hematoma. No evidence of acute fracture. ORBITS: Both globes, extraocular muscles, optic nerves and retrobulbar fat appear unremarkable. CT/Brain/Head without Contrast IMPRESSION: 1. No acute intracranial process. 2. Frontal scalp soft tissue hematoma. 3. Chronic involutional changes of the brain. Electronically Signed: Javier Martinez MD at 10:55 EDT ,
--- NOTE | 2023-05-16 10:08 | EKG12_ITS ---
Test Reason : Blood Pressure : / mmHG Vent. Rate : 078 BPM Atrial Rate : 078 BPM P-R Int : 150 ms QRS Dur : 084 ms QT Int : 398 ms P-R-T Axes : 044 050 068 degrees QTc Int : 453 ms Sinus rhythm with Premature supraventricular complexes and with occasional Premature ventricular comp lexes Otherwise normal ECG Confirmed by BECCA BERNAL, CAROL ([id number]), editorial director LOUIS IZQUIERDO ([id number]) on 05/18/2023 7:06:14 AM Referred By: Papo Cochran Confirmed By:LACY HUDSON MD
--- NOTE | 2023-05-16 10:12 | EX.ED.DYSGE1 ---
HPI History of Present Illness Chief Complaint: Substance Abuse Informant: patient and family Narrative Narrative: Patient presents for detox. Patient has a long history of heavy alcohol use. Last detox was in February although he did not remember the date. He evidently is in legal troubles again for drinking and driving and this along with family pressure makes him want to get off the alcohol. I did specifically ask him if he wants to go through detox or this is just pressure from his family. He did tell me that he wants detox. He also fell yesterday or day before in the court house. He was evidently laying there for a while because there was a large pool of blood around him when he was found. They do not know if he has fallen since because he basically has been drunk and nearly unresponsive since the fall. He now has not drank since last night he is back awake. PFSH [facility] Medical History Acute blood loss anemia Alcohol withdrawal Anxiety Anxiety and depression At high risk for malnutrition Behavior concern in adult Chewing tobacco use COPD (chronic obstructive pulmonary disease) Depression ETOH abuse GI bleed History of cancer tonsil Hypertension Hyponatremia Irregular heart beat Smoker Substance abuse Home Medications ibuprofen-diphenhydramine citrate 200 mg-38 mg tablet (Ibuprofen PM) 2 cap PO QHS 05/16/23 [History Last Taken 05/15/23] melatonin 5 mg tablet 10 mg PO QHS 05/16/23 [History Last Taken 05/15/23] Allergy/AdvReac Type Severity Reaction Status Date / Time poison mike extract Allergy Mild RASH Verified 05/16/23 09:41 Family History Mother Diabetes Father Diabetes Brother Colon cancer Surgical History History of tonsillectomy and adenoidectomy Social History household members: other details: Lives with his son. Smoking Status: Former smoker Smokeless tobacco user: chewing tobacco and other alcohol intake: current alcohol intake frequency: 3 or more drinks per day details: 8-10 beers daily coupled with hard liquor. substance use type: does not use ROS ROS ED Constitutional Constitutional ED: Denies chills or fever(s) Eyes Eyes: Denies change in vision ENT ENT ED: Denies rhinorrhea Cardiovascular Cardiovascular: Denies chest pain Respiratory/Chest Respiratory/Chest: Denies cough or dyspnea Gastrointestinal Gastrointestinal: Denies abdominal pain, nausea or vomiting Genitourinary Genitourinary ED: Denies hematuria Musculoskeletal Musculoskeletal: Denies arthralgias, back pain, myalgias or neck pain Integumentary Reports Abrasions Neurologic Neurologic: Denies headache(s), paresthesias or weakness Hematologic/Lymphatic Hematologic/Lymphatic: Denies easy bleeding or easy bruising Allergic/Immunologic Allergic/Immunologic ED: Denies urticaria EXAM Physical Exam Narrative Exam Narrative: CONSTITUTIONAL: Patient is nontoxic in appearance. The patient looks comfortable. He does look somewhat chronically thin and frail. HEENT: Patient has large contusion with abrasion of the right forehead but nothing that needs suturing. He has some abrasion across his face but no tenderness there. EYES: Bilateral injection. Pupils are normal. CARDIOVASCULAR: Regular rate. Regular rhythm. No notable murmur. No JVD. RESPIRATORY: No respiratory distress. Breathing is unlabored. No wheezes. No rhonchi. No rales. No pain with a deep breath. GASTROINTESTINAL: Not distended. Bowel sounds are normal. No tenderness. No guarding. GENITOURINARY: No tenderness over the bladder. No CVA tenderness. MUSCULOSKELETAL: Multiple small abrasions and contusions no deformity NEUROLOGICAL: Patient is alert and appropriate. No flight of ideas. SKIN: No noted rashes but he does have the abrasion. No diaphoresis. PSYCHIATRIC: Patient is calm. Mood is appropriate. Const Vital Signs: 05/16/23 09:40 Temperature 97.0 F L Temperature Source Temporal Pulse Rate 88 Respiratory Rate 15 Blood Pressure 157/109 H Blood Pressure Mean 125 Pulse Ox 100 Oxygen Delivery Method Room Air MDM MDM MDM Narrative Medical decision making narrative: Patient's CBC shows mild anemia otherwise no marked abnormalities. Patient's electrolytes showed mildly low sodium. Patient's liver function test show no marked abnormalities. Patient's serum alcohol is 77. My independent interpretation the patient's CT scan of the head shows contusion on the forehead that is present clinically but no intracranial injury. He does have chronic changes. All of this is consistent with final read. I discussed case with the hospitalist. Patient will come in for detox. He evidently has had difficulty managing his detox before so inpatient therapy is appropriate. Lab Data Attestation: I reviewed the patient's lab results. Labs: Laboratory Results - last 24 hr 05/16/23 10:08 WBC 5.6 RBC 3.60 L Hgb 11.7 L Hct 34.4 L MCV 95.6 H MCH 32.5 H MCHC 34.0 RDW Std Deviation 48.8 H RDW Coeff of Jesus 13.9 Plt Count 273 MPV 8.9 Immature Gran % (Auto) 0.500 Neut % (Auto) 87.7 H Lymph % (Auto) 5.7 L [place] % (Auto) 5.7 Eos % (Auto) 0.2 Baso % (Auto) 0.2 Absolute Neuts (auto) 4.9 Absolute Lymphs (auto) 0.32 L Nucleated RBC % 0 Differential Comment COMMENT Sodium 128 L Potassium 3.9 Chloride 93 L Carbon Dioxide 27.0 Anion Gap 8 BUN 7 Creatinine 1.29 Estim Creat Clear Calc 54.90 Est GFR (MDRD) Af Amer 71 Est GFR (MDRD) Non-Af 59 L BUN/Creatinine Ratio 5.4 L Glucose 92 Calcium 8.2 L Total Bilirubin 0.20 AST 26 ALT 18 Alkaline Phosphatase 81 Total Protein 6.6 Albumin 3.1 L Globulin 3.5 Albumin/Globulin Ratio 0.9 Ethyl Alcohol 77.0 Radiography Diagnostic Testing: Clinical Impression(s) from Imaging Studies Brain CT 05/16/23 10:07 IMPRESSION: 1. No acute intracranial process. 2. Frontal scalp soft tissue hematoma. 3. Chronic involutional changes of the brain. Electronically Signed: Javier Martinez MD at 10:55 EDT , EKG Initial EKG: Comments: My independent interpretation the patient's EKG shows sinus rhythm with PVC. Overall rate of 78. No acute ST elevation or depression. GA interval, QRS duration and QTc are normal Management Discussion w/another healthcare provider: Hospitalist Discharge Plan Dx/Rx/DC Orders Clinical Impression: Acute alcoholism, Desire for detoxification, CHI (closed head injury), Pulmonary mass Disposition Disposition: Acute Care Hospital [facility] Discharge Date/Time: 05/16/23 15:23
[2023-05-16 10:19] LABS: Absolute Lymphocyte Count 0.32 X10^3/uL (0.83-4.51); Absolute Neutrophil Count 4.9 X10^3/uL (2.0-7.7); Basophil# 0.01 X10^3/uL; Basophil% 0.2 % (0-1); Eosinophil# 0.01 X10^3/uL; Eosinophils% 0.2 % (0-5); Hematocrit 34.4 % (40-54); Hemoglobin 11.7 g/dL (13.0-16.5); Lymphocyte # 0.32 X10^3/ul (0.83-4.51); Lymphocyte % 5.7 % (19-41); Mean Corpuscular Hgb 32.5 pg (27.0-32.0); Mean Corpuscular Volume 95.6 fL (80-94); Mean Platelet Vol. 8.9 fl (6.2-12.0); Monocyte# 0.32 X10^3/uL; Monocyte% 5.7 % (0-10); NRBC Flagged by Analyzer 0 % (0-5); Neutrophil # 4.89 X10^3/uL (2.7-7.7); Neutrophil % 87.7 % (47-70); POSITIVE DIFFERENTIAL YES; Platelet Count 273 K/mm3 (150-450); RBC Distribution Width CV 13.9 % (11.6-14.6); RBC Distribution Width SD 48.8 fl (35.1-43.9); White Blood Count 5.6 K/mm3 (4.4-11.0)
[2023-05-16 10:28] LABS: Differential Indicated SCAN CRITERIA MET
[2023-05-16 10:38] LABS: ALB/GLOB Ratio 0.9 RATIO (0.9-2.4); AST(SGOT) 26 U/L (15-37); Alanine Aminotransfer ALT/SGPT 18 U/L (16-61); Albumin, Serum 3.1 g/dL (3.2-5.0); Alkaline Phosphatase 81 U/L (45-117); Anion Gap 8 (5-15); BUN 7 mg/dL (7-18); BUN/Creat Ratio 5.4 RATIO (10-20); Calcium,Total 8.2 mg/dL (8.5-10.1); Chloride 93 mmol/L (98-107); Creatinine, Serum 1.29 mg/dL (0.70-1.30); EST Glomerular Filtration Rate 59 mL/min (>60); Est Glom Filt Rate - Afr Amer 71 mL/min (>60); Globulin 3.5 g/dL (2.2-4.2); Glucose 92 mg/dL (74-106); Potassium 3.9 mmol/L (3.5-5.1); Protein, Total 6.6 g/dL (6.4-8.2); Sodium Level 128 mmol/L (136-145)
--- NOTE | 2023-05-16 11:38 | NURSING ---
DR FLORENTINO FOR DR ORTIZ
--- NOTE | 2023-05-16 11:47 | NURSING ---
MED SURG TERELETSWY ALCOHOL DETOX
--- NOTE | 2023-05-16 11:52 | CM.ED ---
Social Work SW informed detox coordinator of patient being admitted for RAMP, room not assigned yet. Detox coordinator to meet with patient when able. Plan: LYNDA MEDEIROS, ISADORA
[2023-05-16 13:40] LABS: Amphetamine Urine VISTA NEGATIVE (<1000 ng/mL); Barbiturate Urine VISTA NEGATIVE (< 200 ng/mL); Benzodiazepine Urine VISTA NEGATIVE (< 200 ng/mL); Cocaine Urine VISTA NEGATIVE (< 300 ng/mL); Ecstacy Urine VISTA NEGATIVE (< 500 ng/mL); Methadone Urine VISTA NEGATIVE (< 300 ng/mL); PCP Urine VISTA NEGATIVE (< 25 ng/mL); THC Urine VISTA NEGATIVE (< 50 ng/mL); Vista UDS pH Range 5
--- NOTE | 2023-05-16 15:35 | NURSING ---
This RN was told patient was hiding things in his brief while in the ER. This RN made a copy of signed [employer] program contract and took it into patient's room. Showed it to patient, and acknowledged that he signed it and asked him if he understood it. The patient verbally told this RN Yes, they went over it. This RN told patient that if he has any personally belongings on him, that he needed to hand them over to staff now because if we find them later, it goes against the [employer] program contract and he will be discharged immediately. Patient denied having any personal belongings on him, other than his hat which he is allowed to keep. Patient voiced understanding that if he breaks the rules of the contract, he will be discharged immediately.
[2023-05-16] MEDS: Phenobarbital 32.4 MG Tablet 97.2 MG PO ×2 (17:12→19:42)
--- NOTE | 2023-05-16 18:20 | HP.PCM.HOS_ITS ---
HPI - General General Date of Admission: 05/16/23 Date of Service: 05/16/23 Chief Complaint: Desire for detoxification, chronic alcoholism HPI Narrative MIRNA JEFFRIES, is a 68 M who presents to the emergency room at [facility] requesting services for alcohol detox, patient is vague about how much he drinks on a daily basis-he states he drinks vodka sometimes and sometimes he drinks beer. Patient's last drink was yesterday. Patient was in court a few days ago and fell because he was drinking too much and contused his forehead. He was at court due to a DUI. Patient has been here many times this year for alcohol detox. I talked with addiction director of social services today about the patient and they confirmed that the patient went to [facility] for follow-up after one of his stays at the hospital for detox, he showed up intoxicated at 180. Labs done in the emergency room included a CBC which was abnormal for hemoglobin of 11.7, patient's sodium was low at 128, liver enzymes are unremarkable. Patient's tox screen was negative, patient was at the alcohol level was 77. Patient will be admitted to [facility] for alcohol detox services, he will be seen by addiction director of social services, orders were entered using the alcohol detox order set. [facility] Medical History Acute blood loss anemia Alcohol withdrawal Anxiety Anxiety and depression At high risk for malnutrition Behavior concern in adult Chewing tobacco use COPD (chronic obstructive pulmonary disease) Depression ETOH abuse GI bleed History of cancer tonsil Hypertension Hyponatremia Irregular heart beat Smoker Substance abuse Home Medications ibuprofen-diphenhydramine citrate 200 mg-38 mg tablet (Ibuprofen PM) 2 cap PO QHS 05/16/23 [History Last Taken 05/15/23] melatonin 5 mg tablet 10 mg PO QHS 05/16/23 [History Last Taken 05/15/23] Allergy/AdvReac Type Severity Reaction Status Date / Time poison mike extract Allergy Mild RASH Verified 05/16/23 09:41 Family History Mother Diabetes Father Diabetes Brother Colon cancer Surgical History History of tonsillectomy and adenoidectomy Social History household members: other details: Lives with his son. Smoking Status: Former smoker Smokeless tobacco user: chewing tobacco and other alcohol intake: current alcohol intake frequency: 3 or more drinks per day details: 8-10 beers daily coupled with hard liquor. substance use type: does not use ROS Constitutional Constitutional: Denies anorexia, change in weight, chills, fatigue, fever(s), malaise, night sweats or weakness Eyes Eyes: Denies blurry vision, change in vision, discharge from eye(s) or eye pain Cardiovascular Cardiovascular: Denies chest pain, claudication, dyspnea on exertion, edema or palpitations Respiratory/Chest Respiratory/Chest: Denies cough, hemoptysis, shortness of breath at rest or shortness of breath with exertion Gastrointestinal Gastrointestinal: Denies abdominal pain, constipation, diarrhea, hematemesis, hematochezia, melena, nausea or vomiting Genitourinary Genitourinary: Denies dysuria, hematuria, urinary frequency, urinary hesitancy, urinary incontinence or urinary urgency Musculoskeletal Musculoskeletal: Denies back pain, joint pain, joint stiffness, joint swelling, myalgias or neck pain Neurologic Neurologic: Denies abnormal gait, abnormal speech, confusion, disequilibrium, dizziness, focal weakness, headache(s), loss of vision, numbness, other visual disturbances, paresthesias, syncope or tingling Psychiatric Psychiatric: Denies anxiety, cognitive impairment, depression, irritability, mood swings or suicidal ideation Endocrine Endocrinology: Denies change in body appearance, cold intolerance, excessive sweating, heat intolerance, polydipsia or polyuria Hematologic/Lymphatic Hematologic/Lymphatic: Denies none, anemia, easy bleeding, easy bruising or lymphadenopathy Allergic/Immunologic Allergic/Immunologic: Denies rhinitis, urticaria, eczemia or asthma Vital Signs Vital Signs Vital Signs: 05/16/23 09:40 05/16/23 11:50 05/16/23 15:35 Temperature 97.0 F L 98.3 F Temperature Source Temporal Oral Pulse Rate 88 97 80 Respiratory Rate 15 16 18 Respiratory Effort Respiratory Depth Respiratory Pattern Blood Pressure 157/109 H 161/105 H Blood Pressure Mean 125 123 Blood Pressure Source Monitor Blood Pressure Position Semi-Fowlers Blood Pressure Location Left Arm Pulse Ox 100 100 100 Oxygen Delivery Method Room Air Room Air Room Air 05/16/23 16:15 05/16/23 18:15 Temperature 98.8 F Temperature Source Oral Pulse Rate 101 H Respiratory Rate 16 Respiratory Effort Normal Non-Labored Respiratory Depth Normal Respiratory Pattern Normal Blood Pressure 144/96 H Blood Pressure Mean 112 Blood Pressure Source Monitor Blood Pressure Position Semi-Fowlers Blood Pressure Location Left Arm Pulse Ox 100 100 Oxygen Delivery Method Room Air Room Air Weight Weight: 69.944 kg Body Mass Index (BMI) 22.1 Physical Exam Const alert, oriented x3, no apparent distress and average body habitus General Appearance: cooperative, well kempt and well developed Orientation / Consciousness: awake, oriented to person, oriented to place and oriented to time HEENT normocephalic and moist oral mucous membranes HEENT Narrative: Patient has an area of ecchymosis in the middle of his forehead Eyes PERRL, EOMs intact bilaterally and conjunctivae normal Neck supple, no JVD, thyroid normal and no carotid bruits General: trachea midline Resp normal respiratory effort, no retractions, no use of accessory muscles and clear to auscultation bilaterally Auscultation: Negative for rales, rhonchi or wheezes Cardio regular rate, regular rhythm, S1 normal heart sound, S2 normal heart sound, no murmurs, no rub and no gallops GI normal to inspection, nondistended, normoactive bowel sounds, soft to palpation, non-tender and non-distended Extremity no clubbing, cyanosis or edema Skin no rashes or lesions noted General Skin Exam: no breakdown Neuro oriented x3, CN's II-XII intact bilaterally, moves all extremities, no focal motor deficits and no sensory deficits noted Sensorium / Orientation: awake, alert, oriented to person, oriented to place and oriented to time Speech: speech normal Psych affect normal Results Lab / Micro Data 05/16/23 10:08 05/16/23 10:08 Labs: Laboratory Results - last 24 hr 05/16/23 10:08: WBC 5.6, RBC 3.60 L, Hgb 11.7 L, Hct 34.4 L, MCV 95.6 H, MCH 32.5 H, MCHC 34.0, RDW Std Deviation 48.8 H, RDW Coeff of Jesus 13.9, Plt Count 273, MPV 8.9, Immature Gran % (Auto) 0.500, Neut % (Auto) 87.7 H, Lymph % (Auto) 5.7 L, [place] % (Auto) 5.7, Eos % (Auto) 0.2, Baso % (Auto) 0.2, Absolute Neuts (auto) 4.9, Absolute Lymphs (auto) 0.32 L, Nucleated RBC % 0, Differential Comment COMMENT, Sodium 128 L, Potassium 3.9, Chloride 93 L, Carbon Dioxide 27.0, Anion Gap 8, BUN 7, Creatinine 1.29, Estim Creat Clear Calc 54.90, Est GFR (MDRD) Af Amer 71, Est GFR (MDRD) Non-Af 59 L, BUN/Creatinine Ratio 5.4 L, Glucose 92, Calcium 8.2 L, Total Bilirubin 0.20, AST 26, ALT 18, Alkaline Phosphatase 81, Total Protein 6.6, Albumin 3.1 L, Globulin 3.5, Albumin/Globulin Ratio 0.9, Ethyl Alcohol 77.0 05/16/23 13:08: Urine Opiates Screen NEGATIVE, Urine Methadone Screen NEGATIVE, Ur Barbiturates Screen NEGATIVE, Ur Phencyclidine Scrn NEGATIVE, Ur Amphetamines Screen NEGATIVE, MDMA (Ecstasy) Screen NEGATIVE, U Benzodiazepines Scrn NEGATIVE, Urine Cocaine Screen NEGATIVE, U Cannabinoids Screen NEGATIVE, Ur Drug Screen Comment Radiology Impression Brain CT 05/16/23 10:07 IMPRESSION: 1. No acute intracranial process. 2. Frontal scalp soft tissue hematoma. 3. Chronic involutional changes of the brain. Electronically Signed: Javier Martinez MD at 10:55 EDT , Assessment & Plan Assessment/Plan (1) Desire for detoxification: PLAN: Plan # 1 acute alcohol withdrawal-patient has little symptoms of alcohol withdrawal at this time, he was admitted to [facility], orders were entered using alcohol detox order set, he will be seen by addiction director of social services tomorrow #2 chronic alcoholism-complicates care, medical course, recovery, and prognosis, patient will need follow-up as an outpatient, he states he would like to do an inpatient detox program at 180. #3 past history of a pleural-based patchy opacity in the left pulmonary apex-I will start ordering a chest x-ray for the patient and any necessary for him to have an MRI, this abnormality was noted on a CT of the chest in November 2022. Total clinical time spent by myself addressing the patient's medical issues, reviewing all of the data, and collaborating with patient's care team: 55 minutes Charges/Coding Visit Charges Inpatient E&M: 73609 Init Hosp L2
--- NOTE | 2023-05-16 19:21 | RAD_ITS ---
INDICATION: history of abnormal chest CT EXAMINATION/TECHNIQUE: X-RAY - XR Chest 2 Views COMPARISON: 12/12/2022. FINDINGS: Biapical pleural parenchymal scarring/atelectasis. Tortuous and calcified thoracic aorta. The heart is not enlarged. No pleural effusion or pneumothorax. Degenerative changes of the thoracic spine. Chronic fracture deformity of the left posterolateral ninth rib, possibly pathologic. RAD/Chest PA and Lateral IMPRESSION: No acute radiographic abnormalities. Chronic fracture deformity of the left posterolateral ninth rib, possibly pathologic. Similar appearance to prior chest radiograph on 12/12/2022. Biapical pleural parenchymal scarring/atelectasis, similar in appearance to prior. Electronically Signed: Nathaniel Ba MD at 19:55 EDT ,
[2023-05-16] MEDS: traZODone 100 MG Tablet PO (19:42)
[2023-05-16] MEDS: hydrOXYzine PAM 25 MG Capsule 50 MG PO (19:42)
[2023-05-16] MEDS: LORazepam 1 MG Tablet 2 MG PO (21:41)
[2023-05-16] MEDS: LORazepam 2 MG/ML Syringe IV ×2 (22:48→23:50)
[2023-05-16] MEDS: Dicyclomine 10 MG Capsule 20 MG PO (22:55)
[2023-05-16] MEDS: Loperamide 2 MG Capsule PO (22:55)
[2023-05-16] MEDS: Gabapentin 300 MG Capsule PO (22:55)
--- NOTE | 2023-05-16 23:20 | PCM.HOSP.N ---
Hospitalist Note The nurse called me to evaluate the patient as he is still aggressive, disoriented, trying to get out of the bed, incoherent speech despite heavy dose of phenobarbital and Ativan. Earlier in the evening patient was started on Ativan protocol as per CIWA besides phenobarbital but is still symptoms are not controlled. Patient also on Vistaril, Gabapentin, trazodone for acute alcohol withdrawal protocol. Patient had fall and has bruise on the forehead and around eyes. As per the nurse staff, he fell down in the court room. Patient states he feels anxious, could not stop talking, having visual and auditory hallucinations. Sometimes his speech is incomprehensible. Last CIWA score is 10. CT head shows no acute intracranial process but frontal's scalp soft tissue hematoma. Patient also has mild to moderate muscle atrophy of thigh and calf muscles and loss of subcutaneous fat suggestive of mild chronic protein calorie malnutrition Heart rate 91/min. Blood pressure 149/83. No hypoxia or tachypnea. After evaluation, the decision is made to transfer to ICU for Precedex drip. Hold phenobarbital patient is on Precedex drip. [employer] consulted requested. Clinical Impression(s) from Imaging Studies Brain CT 05/16/23 10:07 IMPRESSION: 1. No acute intracranial process. 2. Frontal scalp soft tissue hematoma. 3. Chronic involutional changes of the brain. Electronically Signed: Javier Martinez MD at 10:55 EDT , Chest X-Ray 05/16/23 19:21 IMPRESSION: No acute radiographic abnormalities. Chronic fracture deformity of the left posterolateral ninth rib, possibly pathologic. Similar appearance to prior chest radiograph on 12/12/2022. Biapical pleural parenchymal scarring/atelectasis, similar in appearance to prior. Electronically Signed: Nathaniel Ba MD at 19:55 EDT ,
[2023-05-16] MEDS: dexMEDEtomidine 400 MCG in 0.9% Normal Saline (100mL Bag) 96 ML 8.7 MCG CONT INF (23:39)
--- NOTE | 2023-05-16 23:45 | NURSING ---
report given to Jerrica in the ICU. CINJ 16. Dr. sandoval at bedside
[2023-05-17] VITALS (24 sets, daily range): BP systolic 88–180; BP diastolic 56–98; PULSE 53–93; RESP 11–21; TEMP 35.8–36.8; O2SAT 96–100; BMI 22.3
--- NOTE | 2023-05-17 09:18 | EX.PCM.CONCC ---
Assessment & Plan Assessment/Plan (1) Desire for detoxification: PLAN: Plan RECOMMENDATIONS: 1. Continue to hold Precedex. 2. Once the patient's lethargy improves, resume phenobarbital taper and as needed Ativan. 3. Continue nicotine replacement therapy. 4. Encourage incentive spirometer use and mobilize patient as tolerated. IMPRESSIONS: 1. Acute alcohol withdrawal The patient was initially admitted to the hospital and placed on the medical surgical floor. Ultimately, he was transferred to the ICU for the initiation of her Precedex infusion. However, this led to the patient becoming oversedated. The Precedex has been subsequently discontinued. Recommend holding all sedating medications for now until the patient's lethargy improves. Following this, resume phenobarbital taper and as needed Ativan. Continue thiamine and folic acid. 2. History of duodenal ulcers with associated anemia/unspecified behavioral disorder Complicates care, management, recovery and prognosis. Continue supportive care as noted above. This note was generated with [employer] dictation software. It may contain incorrect words, spelling, and punctuation that were not noted in checking the note before signing. HPI Consult Data Date of Consult: 05/17/23 HPI Narrative Reason for Consultation: Alcohol withdrawal HPI Narrative: The patient is a 68-year-old male, with a history as outlined below, who presented to the emergency department on May 16 for elective admission for alcohol withdrawal. The patient does have an extensive, prolonged alcohol dependency history with associated legal issues related to his use. He has been admitted several times to the hospital for alcohol detoxification. No additional history could be obtained from the patient this morning. The patient was initially admitted to the hospital on the medical surgical floor, where he was placed on a phenobarbital taper and as needed Ativan. He has been maintained on thiamine and folic acid. According to documentation, the patient became increasingly agitated overnight, for which he was transferred to the medical intensive care unit to be initiated on a Precedex infusion. Although the patient was initially started on Precedex, the medication was discontinued completely early this morning as the patient was far too sedated. He remains lethargic this morning. Chemistry profile yesterday was notable for a sodium of 128 and chloride of 93. [facility] Medical History Acute blood loss anemia Alcohol withdrawal Anxiety Anxiety and depression At high risk for malnutrition Behavior concern in adult Chewing tobacco use COPD (chronic obstructive pulmonary disease) Depression ETOH abuse GI bleed History of cancer tonsil Hypertension Hyponatremia Irregular heart beat Smoker Substance abuse Home Medications ibuprofen-diphenhydramine citrate 200 mg-38 mg tablet (Ibuprofen PM) 2 cap PO QHS 05/16/23 [History Last Taken 05/15/23] melatonin 5 mg tablet 10 mg PO QHS 05/16/23 [History Last Taken 05/15/23] Allergy/AdvReac Type Severity Reaction Status Date / Time poison mike extract Allergy Mild RASH Verified 05/16/23 09:41 Family History Mother Diabetes Father Diabetes Brother Colon cancer Surgical History History of tonsillectomy and adenoidectomy Social History household members: other details: Lives with his son. Smoking Status: Former smoker Smokeless tobacco user: chewing tobacco and other alcohol intake: current alcohol intake frequency: 3 or more drinks per day details: 8-10 beers daily coupled with hard liquor. substance use type: does not use ROS Review of Systems ROS Unobtainable: due to mental status Physical Exam Const no apparent distress General Appearance: lethargic HEENT normocephalic and head/scalp atraumatic Eyes PERRL and EOMs intact bilaterally Neck supple General: trachea midline Chest inspection of chest normal Resp normal respiratory effort Auscultation: diminished lung sounds Cardio S1 normal heart sound and S2 normal heart sound Rate: bradycardia GI normal to inspection, nondistended, normoactive bowel sounds Extremity no clubbing, cyanosis or edema Skin no rashes or lesions noted Neuro no focal motor deficits Psych Mood & Affect: flat affect Lab / Micro Data 05/16/23 10:08 05/16/23 10:08 Labs: Laboratory Results - last 24 hr 05/16/23 10:08: WBC 5.6, RBC 3.60 L, Hgb 11.7 L, Hct 34.4 L, MCV 95.6 H, MCH 32.5 H, MCHC 34.0, RDW Std Deviation 48.8 H, RDW Coeff of Jesus 13.9, Plt Count 273, MPV 8.9, Immature Gran % (Auto) 0.500, Neut % (Auto) 87.7 H, Lymph % (Auto) 5.7 L, [place] % (Auto) 5.7, Eos % (Auto) 0.2, Baso % (Auto) 0.2, Absolute Neuts (auto) 4.9, Absolute Lymphs (auto) 0.32 L, Nucleated RBC % 0, Differential Comment COMMENT, Sodium 128 L, Potassium 3.9, Chloride 93 L, Carbon Dioxide 27.0, Anion Gap 8, BUN 7, Creatinine 1.29, Estim Creat Clear Calc 54.90, Est GFR (MDRD) Af Amer 71, Est GFR (MDRD) Non-Af 59 L, BUN/Creatinine Ratio 5.4 L, Glucose 92, Calcium 8.2 L, Total Bilirubin 0.20, AST 26, ALT 18, Alkaline Phosphatase 81, Total Protein 6.6, Albumin 3.1 L, Globulin 3.5, Albumin/Globulin Ratio 0.9, Ethyl Alcohol 77.0 05/16/23 13:08: Urine Opiates Screen NEGATIVE, Urine Methadone Screen NEGATIVE, Ur Barbiturates Screen NEGATIVE, Ur Phencyclidine Scrn NEGATIVE, Ur Amphetamines Screen NEGATIVE, MDMA (Ecstasy) Screen NEGATIVE, U Benzodiazepines Scrn NEGATIVE, Urine Cocaine Screen NEGATIVE, U Cannabinoids Screen NEGATIVE, Ur Drug Screen Comment Radiology Impression Brain CT 05/16/23 10:07 IMPRESSION: 1. No acute intracranial process. 2. Frontal scalp soft tissue hematoma. 3. Chronic involutional changes of the brain. Electronically Signed: Javier Martinez MD at 10:55 EDT , Chest X-Ray 05/16/23 19:21 IMPRESSION: No acute radiographic abnormalities. Chronic fracture deformity of the left posterolateral ninth rib, possibly pathologic. Similar appearance to prior chest radiograph on 12/12/2022. Biapical pleural parenchymal scarring/atelectasis, similar in appearance to prior. Electronically Signed: Nathaniel Ba MD at 19:55 EDT , Charges/Coding Visit Charges Inpatient E&M: 98563 Init Hosp L2
[2023-05-17] MEDS: Thiamine Hydrochloride 100 MG Tablet PO (14:17)
[2023-05-17] MEDS: Folic Acid 1 MG Tablet PO (14:17)
[2023-05-17] MEDS: Gabapentin 300 MG Capsule PO (14:17)
[2023-05-17] MEDS: hydrOXYzine PAM 25 MG Capsule 50 MG PO (14:19)
[2023-05-17] MEDS: Phenobarbital 32.4 MG Tablet PO ×3 (14:48→22:43)
--- NOTE | 2023-05-17 18:11 | PN.HOSP_ITS ---
Subjective Subjective Patient was seen and examined today, he had to be transferred into ICU yesterday because of DTs, patient was on Precedex only few hours and had to be stopped due to excessive sedation, at the time of this dictation, patient is alert he was placed back on his phenobarb taper and CIWA scores will be monitored. Objective Data Objective Data Vital Signs: Vital Signs Temp Pulse Resp BP Pulse Ox O2 Del Method 97.6 F L 70 14 97/56 L 99 Room Air 05/17/23 16:00 05/17/23 17:59 05/17/23 17:59 05/17/23 17:59 05/17/23 17:59 05/17/23 17:59 Oxygen Delivery Method Room Air Weight: 70.6 kg Body Mass Index (BMI) 22.3 Intake & Output: Intake and Output for Last 24 Hours 05/15/23 05/16/23 05/17/23 23:59 23:59 23:59 Intake Total 242.18 / 242.18 344.40 / 344.40 Output Total 750 / 750 Balance 242.18 / 242.18 -405.60 / -405.60 Medical Nutrition Assessment Dietitian: Malnutrition Criteria Met Start: 05/17/23 10:15 Freq: Status: Active Protocol: Document 05/17/23 10:15 AG (Rec: 05/17/23 10:15 [id number]) Nutrition Malnutrition Evidence of Malnutrition Exists Yes Malnutrition (moderate): Chronic Evidenced By Suboptimal Energy Intake ( Moderate),Weight Loss (Severe) ,Physical Changes (Moderate) Clinical Problem Chronic Disease or Condition Related Malnutrition Etiology chronic, moderate malnutrition related to inadequate protein /calorie intake d/t excessive alcohol consumption Signs/Symptoms as evidenced by unintentional 9.5% wt loss x 5 months, estimated energy intake meeting <75% of estimated energy needs > 3 months; moderate muscle wasting/fat loss per physical exam Status Active Problem Recommendation Dietitian Recommendations/Changes continue regular diet; will add ensure compact TID w/ meals d/t chronic malnutrition Lab / Micro Data 05/16/23 10:08 05/16/23 10:08 Radiography Diagnostic Testing: Radiology Impression Chest X-Ray 05/16/23 19:21 IMPRESSION: No acute radiographic abnormalities. Chronic fracture deformity of the left posterolateral ninth rib, possibly pathologic. Similar appearance to prior chest radiograph on 12/12/2022. Biapical pleural parenchymal scarring/atelectasis, similar in appearance to prior. Electronically Signed: Nathaniel Ba MD at 19:55 EDT , Physical Exam Const alert, oriented x3, no apparent distress and average body habitus General Appearance: cooperative and well developed Orientation / Consciousness: awake, oriented to person, oriented to place and oriented to time HEENT normocephalic, head/scalp atraumatic and moist oral mucous membranes Eyes PERRL, EOMs intact bilaterally and conjunctivae normal Neck supple, no JVD, thyroid normal and no carotid bruits General: trachea midline Resp normal respiratory effort, no retractions, no use of accessory muscles and clear to auscultation bilaterally Auscultation: Negative for rales, rhonchi or wheezes Cardio regular rate, regular rhythm, S1 normal heart sound, S2 normal heart sound, no murmurs, no rub and no gallops GI normal to inspection, nondistended, normoactive bowel sounds, soft to palpation, non-tender and non-distended Extremity no clubbing, cyanosis or edema Skin no rashes or lesions noted General Skin Exam: no breakdown Neuro CN's II-XII intact bilaterally, no focal motor deficits and no sensory deficits noted Sensorium / Orientation: awake, alert, oriented to person and oriented to place Speech: speech normal Psych affect normal Assessment & Plan Assessment/Plan (1) Desire for detoxification: PLAN: Plan # 1 acute alcohol withdrawal with DTs patient has little symptoms of alcohol withdrawal at this time, he was restarted on phenobarb taper and will be given Ativan as needed #2 chronic alcoholism-complicates care, medical course, recovery, and prognosis, patient will need follow-up as an outpatient, he states he would like to do an inpatient detox program at 180. #3 past history of a pleural-based patchy opacity in the left pulmonary apex- chest x-ray was repeated on the patient, it was unchanged from a chest x-ray done on 12/12/2022 Total clinical time spent by myself addressing the patient's medical issues, reviewing all of the data, and collaborating with patient's care team: 35 minutes Charges/Coding Visit Charges Inpatient E&M: 58736 Subs Hosp L2
[2023-05-17] MEDS: LORazepam 2 MG/ML Syringe IV (23:26)
--- NOTE | 2023-05-17 23:31 | NURSING ---
Around 0, patient became restless and attempted to get out of bed twice. Patient was pulling at wires. Assessed CIWA, administered prn ativan according to protocol.
[2023-05-18] VITALS (12 sets, daily range): BP systolic 76–134; BP diastolic 54–76; PULSE 61–104; RESP 13–21; TEMP 36.6–37.1; O2SAT 95–100; BMI 22.8
--- NOTE | 2023-05-18 00:15 | NURSING ---
Patient is continuously trying to get out of bed, very uncooperative and agitated. Repeatedly tried to redirect patient. He has received ativan and nicotine gum per prn orders.
--- NOTE | 2023-05-18 00:30 | NURSING ---
Pt becoming increasingly agitated and inappropriate with staff; frequently attempting to climb out of bed and get into his belongings. Multiple staff members attempting to redirect pt and maintain pt safety. PRN ativan ineffective, precedex gtt restarted.
[2023-05-18] MEDS: Phenobarbital 32.4 MG Tablet PO ×6 (02:31→21:57)
--- NOTE | 2023-05-18 07:15 | PN.CC_ITS ---
Assessment & Plan Assessment/Plan (1) Desire for detoxification: PLAN: Plan RECOMMENDATIONS: 1. Continue phenobarbital taper and as needed Ativan. 2. Continue nicotine replacement therapy. 3. Encourage incentive spirometer use and mobilize patient as tolerated. 4. The patient is medically stable for transfer out of the intensive care unit. We will sign off at this time from a critical care perspective. IMPRESSIONS: 1. Acute alcohol withdrawal The patient was initially admitted to the hospital and placed on the medical urbina rgical floor. Ultimately, he was transferred to the ICU for the initiation of her Precedex infusion. However, this led to the patient becoming oversedated. The Precedex has been subsequently discontinued. Recommend continuing phenobarbital taper and as needed Ativan. Continue thiamine and folic acid. 2. History of duodenal ulcers with associated anemia/unspecified behavioral d isorder Complicates care, management, recovery and prognosis. Continue supportive care as noted above. This note was generated with [employer] dictation software. It may contain incorrect words, spelling, and punctuation that were not noted in checking the note before signing. Subjective Subjective The patient was seen and examined at the bedside this morning. Events from the last 24 hours have been reviewed. The patient is currently afebrile, hemodynamically stable and maintaining appropriate oxygen saturations on room air. The patient was transiently on Precedex for 3 hours overnight. He has been off of the aforementioned medications since 0 this morning. The patient remains inappropriate at times with staff. Objective Data Objective Data The patient's most recent lab work, culture data and imaging studies have all b een personally reviewed. Vital Signs: Vital Signs Temp Pulse Resp BP Pulse Ox O2 Del Method 98.5 F 69 17 110/61 99 Room Air 05/18/23 04:00 05/18/23 07:00 05/18/23 07:00 05/18/23 07:00 05/18/23 07:00 05/18/23 07:00 Oxygen Delivery Method Room Air Weight: 158 lb 15.253 oz Body Mass Index (BMI) 22.8 Intake & Output: Intake and Output for Last 24 Hours 05/16/23 05/17/23 05/18/23 23:59 23:59 23:59 Intake Total 242.18 / 242.18 344.40 / 344.40 151.46 / 151.46 Output Total 750 / 750 300 / 300 Balance 242.18 / 242.18 -405.60 / -405.60 -148.54 / -148.54 Medical Nutrition Assessment Dietitian: Malnutrition Criteria Met Start: 05/17/23 10:15 Freq: Status: Active Protocol: Document 05/17/23 10:15 AG (Rec: 05/17/23 10:15 AG [id number]) Nutrition Malnutrition Evidence of Malnutrition Exists Yes Malnutrition (moderate): Chronic Evidenced By Suboptimal Energy Intake ( Moderate),Weight Loss (Severe) ,Physical Changes (Moderate) Clinical Problem Chronic Disease or Condition Related Malnutrition Etiology chronic, moderate malnutrition related to inadequate protein /calorie intake d/t excessive alcohol consumption Signs/Symptoms as evidenced by unintentional 9.5% wt loss x 5 months, estimated energy intake meeting <75% of estimated energy needs > 3 months; moderate muscle wasting/fat loss per physical exam Status Active Problem Recommendation Dietitian Recommendations/Changes continue regular diet; will add ensure compact TID w/ meals d/t chronic malnutrition Lab / Micro Data Attestation: I reviewed the patient's lab results. 05/16/23 10:08 05/16/23 10:08 Physical Exam Const alert and no apparent distress HEENT normocephalic and head/scalp atraumatic Eyes PERRL and EOMs intact bilaterally Neck supple General: trachea midline Chest inspection of chest normal Resp normal respiratory effort Auscultation: diminished lung sounds Cardio regular rate, regular rhythm, S1 normal heart sound and S2 normal heart sound GI normal to inspection, nondistended, normoactive bowel sounds Extremity no clubbing, cyanosis or edema Skin no rashes or lesions noted Neuro CN's II-XII intact bilaterally and no focal motor deficits Psych Mood & Affect: flat affect Charges/Coding Visit Charges Inpatient E&M: 22996 Subs Hosp L2
[2023-05-18] MEDS: Thiamine Hydrochloride 100 MG Tablet PO (08:34)
[2023-05-18] MEDS: Folic Acid 1 MG Tablet PO (08:34)
--- NOTE | 2023-05-18 14:52 | PN.HOSP_ITS ---
Subjective Subjective Patient was seen and examined today, he appears confused, he knows he is in the hospital but he does not know what month it is or what year it is. Patient acts out at times threatening nursing staff and myself, I am not sure if he is really sincere about his threats. Objective Data Objective Data Vital Signs: Vital Signs Temp Pulse Resp BP Pulse Ox O2 Del Method 98.2 F 66 13 115/70 98 Room Air 05/18/23 14:00 05/18/23 14:00 05/18/23 14:00 05/18/23 14:00 05/18/23 14:00 05/18/23 14:00 Oxygen Delivery Method Room Air Weight: 72.1 kg Body Mass Index (BMI) 22.8 Intake & Output: Intake and Output for Last 24 Hours 05/16/23 05/17/23 05/18/23 23:59 23:59 23:59 Intake Total 242.18 / 242.18 344.40 / 344.40 151.46 / 151.46 Output Total 750 / 750 650 / 650 Balance 242.18 / 242.18 -405.60 / -405.60 -498.54 / -498.54 Medical Nutrition Assessment Dietitian: Malnutrition Criteria Met Start: 05/17/23 10:15 Freq: Status: Active Protocol: Document 05/17/23 10:15 AG (Rec: 05/17/23 10:15 [id number]) Nutrition Malnutrition Evidence of Malnutrition Exists Yes Malnutrition (moderate): Chronic Evidenced By Suboptimal Energy Intake ( Moderate),Weight Loss (Severe) ,Physical Changes (Moderate) Clinical Problem Chronic Disease or Condition Related Malnutrition Etiology chronic, moderate malnutrition related to inadequate protein /calorie intake d/t excessive alcohol consumption Signs/Symptoms as evidenced by unintentional 9.5% wt loss x 5 months, estimated energy intake meeting <75% of estimated energy needs > 3 months; moderate muscle wasting/fat loss per physical exam Status Active Problem Recommendation Dietitian Recommendations/Changes continue regular diet; will add ensure compact TID w/ meals d/t chronic malnutrition Lab / Micro Data 05/16/23 10:08 05/16/23 10:08 Physical Exam Narrative alert, oriented x3, no apparent distress and average body habitus General Appearance: Patient appears older than his stated age Orientation / Consciousness: Patient is alert, he exhibits moderate confusion HEENT normocephalic, head/scalp atraumatic and moist oral mucous membranes Eyes PERRL, EOMs intact bilaterally and conjunctivae normal Neck supple, no JVD, thyroid normal and no carotid bruits General: trachea midline Resp normal respiratory effort, no retractions, no use of accessory muscles and clear to auscultation bilaterally Auscultation: Negative for rales, rhonchi or wheezes Cardio regular rate, regular rhythm, S1 normal heart sound, S2 normal heart sound, no murmurs, no rub and no gallops GI normal to inspection, nondistended, normoactive bowel sounds, soft to palpation, non-tender and non-distended Extremity no clubbing, cyanosis or edema Skin no rashes or lesions noted General Skin Exam: no breakdown Neuro CN's II-XII intact bilaterally, no focal motor deficits and no sensory deficits noted Sensorium / Orientation: awake, alert, oriented as to place Speech: speech normal Psych Patient exhibits moderate confusion Assessment & Plan Assessment/Plan (1) Desire for detoxification: PLAN: Plan #1 acute alcohol withdrawal with DTs-patient remains moderately confused today but is directable somewhat, I will transfer the patient to [facility] and continue present phenobarbital dosing and Ativan as needed #2 chronic alcoholism-complicates care, medical course, recovery, and prognosis, patient will need follow-up as an outpatient, he states he would like to do an inpatient detox program at [facility]. #3 past history of a pleural-based patchy opacity in the left pulmonary apex- chest x-ray was repeated on the patient, it was unchanged from a chest x-ray done on 12/12/2022 Total clinical time spent by myself addressing the patient's medical issues, reviewing all of the data, and collaborating with patient's care team: 25 minutes Charges/Coding Visit Charges Inpatient E&M: 78040 Subs Hosp L1
[2023-05-18] MEDS: 0.9% Saline Lock 10 ML Syringe IV (21:57)
[2023-05-18] MEDS: LORazepam 2 MG/ML Syringe IV (21:58)
[2023-05-18] MEDS: traZODone 100 MG Tablet PO (21:59)
[2023-05-18] MEDS: Gabapentin 300 MG Capsule PO (22:40)
[2023-05-18] MEDS: hydrOXYzine PAM 25 MG Capsule 50 MG PO (22:40)
[2023-05-19 01:50] VITALS: BP 126/68; PULSE 79; RESP 18; TEMP 36.8; O2SAT 100
[2023-05-19] MEDS: LORazepam 2 MG/ML Syringe IV ×5 (01:53→17:24)
[2023-05-19] MEDS: Phenobarbital 32.4 MG Tablet PO ×6 (01:53→21:59)
[2023-05-19] MEDS: 0.9% Saline Lock 10 ML Syringe IV (01:53)
[2023-05-19 05:41] VITALS: BMI 22.8
[2023-05-19] MEDS: Thiamine Hydrochloride 100 MG Tablet PO (07:28)
[2023-05-19] MEDS: Folic Acid 1 MG Tablet PO (07:28)
[2023-05-19 08:37] VITALS: BP 121/59; PULSE 88; RESP 16; TEMP 36.8; O2SAT 100
[2023-05-19 09:00] VITALS: PULSE 94; RESP 22; O2SAT 100
[2023-05-19] MEDS: Gabapentin 300 MG Capsule PO ×2 (09:14→21:59)
--- NOTE | 2023-05-19 10:26 | PN.HOSP_ITS ---
Subjective Subjective Patient was seen and examined today, he appears in no distress he is resting quietly. Objective Data Objective Data Vital Signs: Vital Signs Temp Pulse Resp BP Pulse Ox O2 Del Method 98.3 F 94 22 H 121/59 H 100 Room Air 05/19/23 08:37 05/19/23 09:00 05/19/23 09:00 05/19/23 08:37 05/19/23 09:00 05/19/23 09:00 Oxygen Delivery Method Room Air Weight: 72.3 kg Body Mass Index (BMI) 22.8 Intake & Output: Intake and Output for Last 24 Hours 05/17/23 05/18/23 05/19/23 23:59 23:59 23:59 Intake Total 344.40 / 344.40 151.46 / 151.46 Output Total 750 / 750 650 / 650 950 / 950 Balance -405.60 / -405.60 -498.54 / -498.54 -950 / -950 Medical Nutrition Assessment Dietitian: Malnutrition Criteria Met Start: 05/17/23 10:15 Freq: Status: Active Protocol: Document 05/17/23 10:15 AG (Rec: 05/17/23 10:15 [id number]) Nutrition Malnutrition Evidence of Malnutrition Exists Yes Malnutrition (moderate): Chronic Evidenced By Suboptimal Energy Intake ( Moderate),Weight Loss (Severe) ,Physical Changes (Moderate) Clinical Problem Chronic Disease or Condition Related Malnutrition Etiology chronic, moderate malnutrition related to inadequate protein /calorie intake d/t excessive alcohol consumption Signs/Symptoms as evidenced by unintentional 9.5% wt loss x 5 months, estimated energy intake meeting <75% of estimated energy needs > 3 months; moderate muscle wasting/fat loss per physical exam Status Active Problem Recommendation Dietitian Recommendations/Changes continue regular diet; will add ensure compact TID w/ meals d/t chronic malnutrition Lab / Micro Data 05/16/23 10:08 05/16/23 10:08 Physical Exam Narrative alert, oriented x3, no apparent distress and average body habitus General Appearance: Patient appears older than his stated age Orientation / Consciousness: Patient is alert, he exhibits moderate confusion HEENT normocephalic, head/scalp atraumatic and moist oral mucous membranes Eyes PERRL, EOMs intact bilaterally and conjunctivae normal Neck supple, no JVD, thyroid normal and no carotid bruits General: trachea midline Resp normal respiratory effort, no retractions, no use of accessory muscles and clear to auscultation bilaterally Auscultation: Negative for rales, rhonchi or wheezes Cardio regular rate, regular rhythm, S1 normal heart sound, S2 normal heart sound, no murmurs, no rub and no gallops GI normal to inspection, nondistended, normoactive bowel sounds, soft to palpation, non-tender and non-distended Extremity no clubbing, cyanosis or edema Skin no rashes or lesions noted General Skin Exam: no breakdown Neuro CN's II-XII intact bilaterally, no focal motor deficits and no sensory deficits noted Sensorium / Orientation: awake, alert, oriented as to place Speech: speech normal Psych Patient exhibits moderate confusion Assessment & Plan Assessment/Plan (1) Desire for detoxification: PLAN: Plan #1 acute alcohol withdrawal with DTs-patient is not agitated today, continue the patient on his phenobarbital taper, he will need to be 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 #3 past history of a pleural-based patchy opacity in the left pulmonary apex- chest x-ray was repeated on the patient, it was unchanged from a chest x-ray done on 12/12/2022 Total clinical time spent by myself addressing the patient's medical issues, reviewing all of the data, and collaborating with patient's care team: 25 minutes Charges/Coding Visit Charges Inpatient E&M: 29206 Subs Hosp L1
[2023-05-19 13:45] VITALS: PULSE 91; RESP 18; O2SAT 96
--- NOTE | 2023-05-19 14:53 | ADDICTION ---
Attempted to meet with pt for RAMP assessment and d/c planning but pt was asleep. Attempted to wake pt multiple times and pt was not receptive. Pt was not willing to engage in conversation or assessment.
[2023-05-19 15:00] VITALS: BP 113/52; PULSE 77; RESP 14; TEMP 36.5; O2SAT 97
[2023-05-19 21:50] VITALS: BP 176/101; PULSE 82; RESP 16; TEMP 36.5; O2SAT 100
[2023-05-19] MEDS: traZODone 100 MG Tablet PO (21:59)
[2023-05-19] MEDS: Menthol/Lanolin/Calamine/Znox 113 GM Tube 1 APPLIC TOPICAL (22:00)
[2023-05-20 03:49] VITALS: BMI 22.7
[2023-05-20 05:38] VITALS: BP 156/80; PULSE 96; RESP 16; TEMP 36.6; O2SAT 100
[2023-05-20] MEDS: LORazepam 2 MG/ML Syringe IV (05:42)
[2023-05-20] MEDS: Phenobarbital 32.4 MG Tablet PO ×3 (05:42→15:47)
[2023-05-20] MEDS: 0.9% Saline Lock 10 ML Syringe IV (05:42)
--- NOTE | 2023-05-20 08:16 | PN.HOSP_ITS ---
Subjective Subjective Patient was seen and examined this morning, he appears to be sleepy, he does not respond to specific questions but he does not appear to be in any distress. Objective Data Objective Data Vital Signs: Vital Signs Temp Pulse Resp BP Pulse Ox O2 Del Method 97.8 F 96 16 156/80 H 100 Room Air 05/20/23 05:38 05/20/23 05:38 05/20/23 05:38 05/20/23 05:38 05/20/23 05:38 05/20/23 05:38 Oxygen Delivery Method Room Air Weight: 72 kg Body Mass Index (BMI) 22.7 Intake & Output: Intake and Output for Last 24 Hours 05/18/23 05/19/23 05/20/23 23:59 23:59 23:59 Intake Total 151.46 / 151.46 200 / 200 Output Total 650 / 650 1600 / 1600 300 / 300 Balance -498.54 / -498.54 -1600 / -1600 -100 / -100 Medical Nutrition Assessment Dietitian: Malnutrition Criteria Met Start: 05/17/23 10:15 Freq: Status: Active Protocol: Document 05/17/23 10:15 AG (Rec: 05/17/23 10:15 AG [id number]) Nutrition Malnutrition Evidence of Malnutrition Exists Yes Malnutrition (moderate): Chronic Evidenced By Suboptimal Energy Intake ( Moderate),Weight Loss (Severe) ,Physical Changes (Moderate) Clinical Problem Chronic Disease or Condition Related Malnutrition Etiology chronic, moderate malnutrition related to inadequate protein /calorie intake d/t excessive alcohol consumption Signs/Symptoms as evidenced by unintentional 9.5% wt loss x 5 months, estimated energy intake meeting <75% of estimated energy needs > 3 months; moderate muscle wasting/fat loss per physical exam Status Active Problem Recommendation Dietitian Recommendations/Changes continue regular diet; will add ensure compact TID w/ meals d/t chronic malnutrition Lab / Micro Data 05/16/23 10:08 05/16/23 10:08 Physical Exam Narrative no apparent distress and average body habitus General Appearance: Patient appears older than his stated age Orientation / Consciousness: Patient is lethargic, he does not appear to be in any distress normocephalic, head/scalp atraumatic and moist oral mucous membranes Eyes PERRL, EOMs intact bilaterally and conjunctivae normal Neck supple, no JVD, thyroid normal and no carotid bruits General: trachea midline Resp normal respiratory effort, no retractions, no use of accessory muscles and clear to auscultation bilaterally Auscultation: Negative for rales, rhonchi or wheezes Cardio regular rate, regular rhythm, S1 normal heart sound, S2 normal heart sound, no murmurs, no rub and no gallops GI normal to inspection, nondistended, normoactive bowel sounds, soft to palpation, non-tender and non-distended Extremity no clubbing, cyanosis or edema Skin no rashes or lesions noted General Skin Exam: no breakdown Neuro CN's II-XII intact bilaterally, no focal motor deficits and no sensory deficits noted Sensorium / Orientation: Patient is lethargic, he is in no distress Psych Patient is lethargic, he is in no distress Assessment & Plan Assessment/Plan (1) Alcohol withdrawal delirium, acute, hyperactive: (2) Desire for detoxification: PLAN: Plan #1 acute alcohol withdrawal with DTs-patient is not agitated today, continue the patient on his phenobarbital taper, he will need to be seen by addiction geriatric social work professor 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 #3 past history of a pleural-based patchy opacity in the left pulmonary apex- chest x-ray was repeated on the patient, it was unchanged from a chest x-ray done on 12/12/2022 Total clinical time spent by myself addressing the patient's medical issues, reviewing all of the data, and collaborating with patient's care team: 25 minutes Charges/Coding Visit Charges Inpatient E&M: 10937 [facility] Hosp L1
[2023-05-20 08:34] VITALS: BP 107/73; PULSE 95; RESP 16; TEMP 36.5; O2SAT 98
[2023-05-20] MEDS: Folic Acid 1 MG Tablet PO (10:10)
[2023-05-20] MEDS: Menthol/Lanolin/Calamine/Znox 113 GM Tube 1 APPLIC TOPICAL ×2 (10:10→22:00)
[2023-05-20] MEDS: Thiamine Hydrochloride 100 MG Tablet PO (10:10)
[2023-05-20 12:37] VITALS: BP 136/81; PULSE 88; RESP 16; TEMP 36.2; O2SAT 100
[2023-05-20] MEDS: LORazepam 1 MG Tablet 2 MG PO (13:24)
[2023-05-20 15:59] VITALS: BP 95/61; PULSE 106; RESP 16; TEMP 36.6; O2SAT 96
[2023-05-20 21:37] VITALS: BP 112/61; PULSE 70; RESP 16; TEMP 37; O2SAT 98
[2023-05-21 02:45] VITALS: BP 126/74; PULSE 98; RESP 16; TEMP 37; O2SAT 98
[2023-05-21] MEDS: Phenobarbital 32.4 MG Tablet PO (04:59)
[2023-05-21 05:49] VITALS: BMI 22.7
--- NOTE | 2023-05-21 08:27 | PN.HOSP_ITS ---
Reason for Visit Reason for Visit: Diagnoses Alcohol use, unspecified with withdrawal delirium (05/16/23) Subjective Subjective Groggy today. No events overnight. Objective Data Objective Data Vital Signs: Vital Signs Temp Pulse Resp BP Pulse Ox O2 Del Method O2 Flow Rate 37.0 C 98 16 126/74 H 98 Room Air 2 05/21/23 02:45 05/21/23 02:45 05/21/23 02:45 05/21/23 02:45 05/21/23 02:45 05/21/23 02:45 05/20/23 21:57 Oxygen Flow Rate (L/min) 2 Oxygen Delivery Method Room Air Weight: 72 kg Body Mass Index (BMI) 22.7 Intake & Output: Intake and Output for Last 24 Hours 05/19/23 05/20/23 05/21/23 23:59 23:59 23:59 Intake Total 750 / 850 100 / 100 Output Total 1600 / 1600 300 / 300 Balance -1600 / -1600 450 / 550 100 / 100 Medical Nutrition Assessment Dietitian: Malnutrition Criteria Met Start: 05/17/23 10:15 Freq: Status: Active Protocol: Document 05/17/23 10:15 AG (Rec: 05/17/23 10:15 AG [id number]) Nutrition Malnutrition Evidence of Malnutrition Exists Yes Malnutrition (moderate): Chronic Evidenced By Suboptimal Energy Intake ( Moderate),Weight Loss (Severe) ,Physical Changes (Moderate) Clinical Problem Chronic Disease or Condition Related Malnutrition Etiology chronic, moderate malnutrition related to inadequate protein /calorie intake d/t excessive alcohol consumption Signs/Symptoms as evidenced by unintentional 9.5% wt loss x 5 months, estimated energy intake meeting <75% of estimated energy needs > 3 months; moderate muscle wasting/fat loss per physical exam Status Active Problem Recommendation Dietitian Recommendations/Changes continue regular diet; will add ensure compact TID w/ meals d/t chronic malnutrition Lab / Micro Data 05/16/23 10:08 05/16/23 10:08 Physical Exam Const no apparent distress Constitutional Narrative: groggy. opens eyes to voice. HEENT head/scalp atraumatic and moist oral mucous membranes Resp normal respiratory effort, no retractions, no use of accessory muscles and clear to auscultation bilaterally Cardio regular rate, regular rhythm, S1 normal heart sound and S2 normal heart sound Neuro oriented x3 Assessment & Plan Assessment/Plan (1) Alcohol withdrawal delirium, acute, hyperactive: PLAN: Admitted for alcohol withdrawal treatment and started on phenobarbital. Condition worsened and pt required dexmedetomidine gtt to get him through delirium tremens. On thiamine and folate Addiction medicine to see Phenobarbital held this AM due to somnolence PLAN: Plan Chronic conditions: * Duodenal ulcers: Continue with PPI and sucralfate. * History of anemia secondary to bleeding duodenal ulcer. Hemoglobin has trended upwards and currently 10.4. * Hyponatremia likely associated with alcohol consumption. Monitor for now. Charges/Coding Visit Charges Inpatient E&M: 33187 Subs Hosp L2
[2023-05-21] MEDS: Folic Acid 1 MG Tablet PO (08:52)
[2023-05-21] MEDS: Menthol/Lanolin/Calamine/Znox 113 GM Tube 1 APPLIC TOPICAL ×2 (08:52→21:42)
[2023-05-21] MEDS: Thiamine Hydrochloride 100 MG Tablet PO (08:52)
[2023-05-21 09:08] VITALS: BP 153/93; PULSE 85; RESP 16; TEMP 37.1; O2SAT 96
--- NOTE | 2023-05-21 12:51 | ADDICTION ---
Attempted to wake pt multiple times and pt was not receptive. Pt was still not willing to engage in conversation or assessment.
--- NOTE | 2023-05-21 14:55 | CHAPLAIN ---
Type of Pastoral Visit _x__ Initial Visit ___ Follow-up Visit ___ On-call Visit ___ General Patient Visit ___ Spiritual Assessment ___ Family Conference ___ Bereavement ___ Rapid Response ___ Code Blue ___ Other (describe below) Pastoral Care Referral From _x__ Patient ___ Family ___ Nurse ___ Physician ___ Patient Relations Manager ___ Loom Inspector ___ Other (describe below) Sacrament/Intervention ___ Active listening ___ Anointing ___ Christianity ___ Bereavement ___ Communion ___ Estrella exploration ___ ___ Life review ___ Prayer ___ Reconciliation ___ Sacrament of Sick _x__ Supportive presence ___ Wedding ___ Other (describe below) Pastoral Comments patient has been seen before for detox; pt is sleeping and not able to talk at this time; RN states that this has been status of patient; will try another day to have visit
[2023-05-21 16:15] VITALS: BP 109/63; PULSE 80; RESP 16; TEMP 37.2; O2SAT 98
[2023-05-21 16:24] VITALS: BP 109/63; PULSE 80; RESP 16; TEMP 37.2; O2SAT 96
[2023-05-21 20:36] VITALS: BP 122/88; PULSE 81; RESP 16; TEMP 36.7; O2SAT 100
[2023-05-21] MEDS: hydrOXYzine PAM 25 MG Capsule 50 MG PO (23:36)
[2023-05-21] MEDS: Gabapentin 300 MG Capsule PO (23:36)
[2023-05-21] MEDS: traZODone 100 MG Tablet PO (23:36)
[2023-05-22 02:31] VITALS: BP 130/70; PULSE 85; RESP 16; TEMP 36.8; O2SAT 97
[2023-05-22 06:00] VITALS: BMI 22.7
--- NOTE | 2023-05-22 07:51 | PN.HOSP_ITS ---
Reason for Visit Reason for Visit: Diagnoses Alcohol use, unspecified with withdrawal delirium (05/16/23) Subjective Subjective Denies complaints. Says he's going home. Objective Data Objective Data Vital Signs: Vital Signs Temp Pulse Resp BP Pulse Ox O2 Del Method O2 Flow Rate 36.8 C 85 16 130/70 H 97 Room Air 2 05/22/23 02:31 05/22/23 02:31 05/22/23 02:31 05/22/23 02:31 05/22/23 02:31 05/22/23 02:31 05/20/23 21:57 Oxygen Flow Rate (L/min) 2 Oxygen Delivery Method Room Air Weight: 72 kg Body Mass Index (BMI) 22.7 Intake & Output: Intake and Output for Last 24 Hours 05/20/23 05/21/23 05/22/23 23:59 23:59 23:59 Intake Total 750 / 850 750 / 750 Output Total 300 / 300 Balance 450 / 550 750 / 750 Medical Nutrition Assessment Dietitian: Malnutrition Criteria Met Start: 05/17/23 10:15 Freq: Status: Active Protocol: Document 05/17/23 10:15 AG (Rec: 05/17/23 10:15 [id number]) Nutrition Malnutrition Evidence of Malnutrition Exists Yes Malnutrition (moderate): Chronic Evidenced By Suboptimal Energy Intake ( Moderate),Weight Loss (Severe) ,Physical Changes (Moderate) Clinical Problem Chronic Disease or Condition Related Malnutrition Etiology chronic, moderate malnutrition related to inadequate protein /calorie intake d/t excessive alcohol consumption Signs/Symptoms as evidenced by unintentional 9.5% wt loss x 5 months, estimated energy intake meeting <75% of estimated energy needs > 3 months; moderate muscle wasting/fat loss per physical exam Status Active Problem Recommendation Dietitian Recommendations/Changes continue regular diet; will add ensure compact TID w/ meals d/t chronic malnutrition Lab / Micro Data 05/16/23 10:08 05/16/23 10:08 Physical Exam Const alert and no apparent distress Constitutional Narrative: more alert today. cachectic. Resp normal respiratory effort, no retractions, no use of accessory muscles and clear to auscultation bilaterally Cardio regular rate, regular rhythm, S1 normal heart sound and S2 normal heart sound GI normal to inspection, nondistended, normoactive bowel sounds, soft to palpation, non-tender and non-distended Assessment & Plan Assessment/Plan (1) Alcohol withdrawal delirium, acute, hyperactive: PLAN: Admitted for alcohol withdrawal treatment and started on phenobarbital. Condition worsened and pt required dexmedetomidine gtt to get him through delirium tremens. On thiamine and folate Addiction medicine to see Phenobarbital held 05/21 due to somnolence (2) Malnutrition: PLAN: consult nutrition. (3) Debility: PLAN: PT OT cannot rule out need for SNF. PLAN: Plan Chronic conditions: * Duodenal ulcers: Continue with PPI and sucralfate. * History of anemia secondary to bleeding duodenal ulcer. Hemoglobin has trended upwards and currently 10.4. * Hyponatremia likely associated with alcohol consumption. Monitor for now. Charges/Coding Visit Charges Inpatient E&M: 80780 Subs Hosp L2
[2023-05-22] MEDS: Thiamine Hydrochloride 100 MG Tablet PO (08:57)
[2023-05-22] MEDS: Folic Acid 1 MG Tablet PO (08:57)
[2023-05-22] MEDS: Menthol/Lanolin/Calamine/Znox 113 GM Tube 1 APPLIC TOPICAL ×2 (08:57→20:29)
[2023-05-22 08:59] VITALS: BP 137/87; PULSE 86; RESP 18; TEMP 36.4; O2SAT 100
[2023-05-22 14:00] VITALS: BP 126/75; PULSE 96; RESP 18; TEMP 36.8; O2SAT 100
--- NOTE | 2023-05-22 15:02 | CHAPLAIN ---
Type of Pastoral Visit ___ Initial Visit ___ Follow-up Visit ___ On-call Visit ___ General Patient Visit ___ Spiritual Assessment ___ Family Conference ___ Bereavement ___ Rapid Response ___ Code Blue ___ Other (describe below) Pastoral Care Referral From ___ Patient ___ Family ___ Nurse ___ Physician ___ Platform Attendant ___ Structural Shop Helper ___ Other (describe below) Sacrament/Intervention ___ Active listening ___ Anointing ___ Presybeterian ___ Bereavement ___ Communion ___ Estrella exploration ___ ___ Life review ___ Prayer ___ Reconciliation ___ Sacrament of Sick ___ Supportive presence ___ Wedding ___ Other (describe below) Pastoral Comments attempted visit but patient is sound asleep; left a calling card
[2023-05-22 20:16] VITALS: BP 155/83; PULSE 75; RESP 16; TEMP 36.8; O2SAT 98
[2023-05-22] MEDS: traZODone 100 MG Tablet PO (20:26)
[2023-05-22] MEDS: hydrOXYzine PAM 25 MG Capsule 50 MG PO (20:26)
[2023-05-22] MEDS: Gabapentin 300 MG Capsule PO (20:26)
[2023-05-22] MEDS: LORazepam 1 MG Tablet 2 MG PO (20:26)
[2023-05-23 02:08] VITALS: BP 138/80; PULSE 85; RESP 16; TEMP 36.6; O2SAT 98
[2023-05-23 06:00] VITALS: BMI 22.8
[2023-05-23 07:02] LABS: Absolute Neutrophil Count 2.1 X10^3/uL (2.0-7.7); Basophil# 0.03 X10^3/uL; Basophil% 0.9 % (0-1); Eosinophil# 0.16 X10^3/uL; Eosinophils% 4.6 % (0-5); Hematocrit 33.1 % (40-54); Hemoglobin 11.1 g/dL (13.0-16.5); Lymphocyte % 17.2 % (19-41); Mean Corp Hgb Conc 33.5 g/dL (32-36); Mean Corpuscular Hgb 32.8 pg (27.0-32.0); Mean Corpuscular Volume 97.9 fL (80-94); Mean Platelet Vol. 9.3 fl (6.2-12.0); Monocyte# 0.53 X10^3/uL; Monocyte% 15.2 % (0-10); NRBC Flagged by Analyzer 0 % (0-5); Neutrophil # 2.14 X10^3/uL (2.7-7.7); Neutrophil % 61.2 % (47-70); POSITIVE DIFFERENTIAL YES; Platelet Count 260 K/mm3 (150-450); RBC Distribution Width CV 13.8 % (11.6-14.6); RBC Distribution Width SD 49.6 fl (35.1-43.9); Red Blood Count 3.38 M/mm3 (4.6-6.2); White Blood Count 3.5 K/mm3 (4.4-11.0)
[2023-05-23 07:19] LABS: Differential Comment SCANNED; Differential Indicated SCAN CRITERIA MET
[2023-05-23 07:26] LABS: Anion Gap 5 (5-15); BUN 25 mg/dL (7-18); BUN/Creat Ratio 18.5 RATIO (10-20); Calcium,Total 8.8 mg/dL (8.5-10.1); Chloride 100 mmol/L (98-107); Creatinine, Serum 1.35 mg/dL (0.70-1.30); EST Glomerular Filtration Rate 56 mL/min (>60); Est Glom Filt Rate - Afr Amer 68 mL/min (>60); Estimated Creatinine Clearance 54.37 ml/min; Glucose 88 mg/dL (74-106); Sodium Level 134 mmol/L (136-145)
[2023-05-23 07:40] VITALS: BP 131/82; PULSE 91; RESP 18; TEMP 36.8; O2SAT 100
[2023-05-23] MEDS: Folic Acid 1 MG Tablet PO (07:45)
[2023-05-23] MEDS: Thiamine Hydrochloride 100 MG Tablet PO (07:45)
[2023-05-23] MEDS: Menthol/Lanolin/Calamine/Znox 113 GM Tube 1 APPLIC TOPICAL ×2 (07:46→20:28)
--- NOTE | 2023-05-23 07:49 | PN.HOSP_ITS ---
Reason for Visit Reason for Visit: Diagnoses Unspecified protein-calorie malnutrition (05/16/23) Alcohol use, unspecified with withdrawal delirium (05/16/23) Other malaise (05/16/23) Subjective Subjective No events overnight. Objective Data Objective Data Vital Signs: Vital Signs Temp Pulse Resp BP Pulse Ox O2 Del Method O2 Flow Rate 36.8 C 91 18 131/82 H 100 Room Air 2 05/23/23 07:40 05/23/23 07:40 05/23/23 07:40 05/23/23 07:40 05/23/23 07:40 05/23/23 07:40 05/20/23 21:57 Oxygen Flow Rate (L/min) 2 Oxygen Delivery Method Room Air Weight: 72.4 kg Body Mass Index (BMI) 22.8 Intake & Output: Intake and Output for Last 24 Hours 05/21/23 05/22/23 05/23/23 23:59 23:59 23:59 Intake Total 750 / 750 Balance 750 / 750 Medical Nutrition Assessment Dietitian: Malnutrition Criteria Met Start: 05/17/23 10:15 Freq: Status: Active Protocol: Document 05/22/23 14:55 AG (Rec: 05/22/23 14:55 AG Desktop) Nutrition Malnutrition Evidence of Malnutrition Exists Yes Malnutrition (moderate): Chronic Evidenced By Suboptimal Energy Intake ( Moderate),Weight Loss (Severe) ,Physical Changes (Moderate) Clinical Problem Chronic Disease or Condition Related Malnutrition Etiology chronic, moderate malnutrition related to inadequate protein /calorie intake d/t excessive alcohol consumption Signs/Symptoms as evidenced by unintentional 9.5% wt loss x 5 months, estimated energy intake meeting <75% of estimated energy needs > 3 months; moderate muscle wasting/fat loss per physical exam Status Active Problem Recommendation Dietitian Recommendations/Changes continue regular diet; will continue ensure compact TID w/ meals d/t chronic malnutrition Lab / Micro Data 05/23/23 06:35 05/23/23 06:35 Labs: Laboratory Results - last 24 hr 05/23/23 06:35: WBC 3.5 L, RBC 3.38 L, Hgb 11.1 L, Hct 33.1 L, MCV 97.9 H, MCH 32.8 H, MCHC 33.5, RDW Std Deviation 49.6 H, RDW Coeff of Jesus 13.8, Plt Count 260, MPV 9.3, Immature Gran % (Auto) 0.900, Neut % (Auto) 61.2, Lymph % (Auto) 17.2 L, [place] % (Auto) 15.2 H, Eos % (Auto) 4.6, Baso % (Auto) 0.9, Absolute Neuts (auto) 2.1, Absolute Lymphs (auto) 0.60 L, Nucleated RBC % 0, Differential Comment SCANNED, Diff Path Review November foll, Sodium 134 L, Potassium 4.0, Chloride 100, Carbon Dioxide 29.0, Anion Gap 5, BUN 25 H, Creatinine 1.35 H, Estim Creat Clear Calc 54.37, Est GFR (MDRD) Af Amer 68, Est GFR (MDRD) Non-Af 56 L, BUN/Creatinine Ratio 18.5, Glucose 88, Calcium 8.8 Physical Exam Const alert and no apparent distress Constitutional Narrative: dishevled. HEENT HEENT Narrative: swelling on right forehead. Neuro Sensorium / Orientation: awake Assessment & Plan Assessment/Plan (1) Alcohol withdrawal delirium, acute, hyperactive: PLAN: Admitted for alcohol withdrawal treatment and started on phenobarbital. Condition worsened and pt required dexmedetomidine gtt to get him through delirium tremens. On thiamine and folate Addiction medicine to see Phenobarbital held 05/21 due to somnolence (2) Malnutrition: QUALIFIERS: Malnutrition type: protein-calorie malnutrition Protein-calorie malnutrition severity: moderate Qualified Code(s): E44.0 - Moderate protein-calorie malnutrition PLAN: consult nutrition. per nutrition: chronic, moderate malnutrition related to inadequate protein/calorie intake d/t excessive alcohol consumption regular diet with ensure w meals. (3) Debility: PLAN: PT OT cannot rule out need for SNF. PLAN: Plan Chronic conditions: * Duodenal ulcers: Continue with PPI and sucralfate. * History of anemia secondary to bleeding duodenal ulcer. Hemoglobin has trended upwards and currently 10.4. * Hyponatremia likely associated with alcohol consumption. Monitor for now. Disposition: TBD. Additional therapy recommended. CM/SW to eval. Unclear if patient would be agreeable. Charges/Coding Visit Charges Inpatient E&M: 97976 Subs Hosp L1
--- NOTE | 2023-05-23 11:30 | CASEMGMT ---
Social Work SW met with pt to assess for discharge planning and appropriate level of care. SW entered the room and pt lying in bed, awake and agreeable to meet with SW. Pt calm and conversant throughout assessment. Pt is able to inform SW that he is in the hospital but thinks he is in [place]. Pt able to states he came to the hospital for [employer] and when SW inquired what this meant, pt is able to states he needs [employer] to get away from the alcohol. Pt also able to tell SW that he recently got an RUTHANN and has a court date upcoming and he came into the hospital to prove I am a strong man and can do it. Initially pt states he is 38 then quickly corrects self and states he is 68. Pt states he started drinking 62 years ago and when SW inquired about the possibility and timing of this pt states he has a picture of himself drinking a beer as a toddler. Pt states he drinks approximately 12 Donte Beers a day and occasionally drinks liquor but only 1/2 glass as this gets to him faster than the beer. Pt unable to answer how long he has been doing thing. Pt stating that he is not walking well and that he can't believe that it is from the alcohol. 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 During chart review, SHAYNA noted that this SW worked with pt in November 2022 and recommendations were for pt to go to SNF at that time. Pt's son Messi Waldrop denied need for SNF and picked pt up at time of discharge with intentions of taking pt to his home in [place] and providing 24 hour care. Home Health was set up. When SW inquired, pt had no recollection of this. PT states he lives with his Brother Luís who he doesn't get along well with is a real bitch. But after further conversation about discharge plan pt states that although they don't get along, Luís will provide needed assistance at home. Pt also states he has a niece Michelle that that lives across the street and is helpful. SW provided updates to Addiction Therapies. SW updated PT/OT on pt's current status and requested pt be evaluated. SW will continued to follow for d/c planning. CAR Walter
--- NOTE | 2023-05-23 12:57 | CHAPLAIN ---
Type of Pastoral Visit _x__ Initial Visit ___ Follow-up Visit ___ On-call Visit ___ General Patient Visit ___ Spiritual Assessment ___ Family Conference ___ Bereavement ___ Rapid Response ___ Code Blue ___ Other (describe below) Pastoral Care Referral From _x__ Patient ___ Family ___ Nurse ___ Physician ___ Bag Checker ___ Transportation Modeler ___ Other (describe below) Sacrament/Intervention _x__ Active listening ___ Anointing ___ Episcopal ___ Bereavement ___ Communion _x__ Estrella exploration ___ ___ Life review _x__ Prayer ___ Reconciliation ___ Sacrament of Sick _x__ Supportive presence ___ Wedding ___ Other (describe below) Pastoral Comments patient is awake today and able to carry on conversation; pt does remember this supervisor burling and joining; pt appears to have some deficits in cognition through slowness of response and inability to grasp his limits at the moment; pt does speak openly of his belief that God still loves him and that God can be anything; discussed the effects of his alcohol consumption; pt welcomes presence and prayers of this supervisor burling and joining and extends hands as visit ends
[2023-05-23 14:19] VITALS: BP 102/57; PULSE 79; RESP 18; TEMP 37.1; O2SAT 97
--- NOTE | 2023-05-23 16:03 | CASEMGMT ---
Social Work Therapy notes reviewed. Pt is able to ambulate 50 feet min A and is impulsive and unsteady. Phone call to pt's son Messi Buchanan May to discuss pt's discharge plan. Pt's son states that he is under the impression that pt had a court date last week due to an RUTHANN and pt took a plea deal to go to alcohol rehab to avoid retirement time. Son stating he does not know any of the terms of the plea deal. Per son, when pt is sober he is fairly lucid and can care for himself, but when he is on a salazar he cannot take care of himself. Son is uncertain how much pt drinks but that his drinking became really bad this year and he currently drinks way too much. At one point pt cut back on the liquor but drank the highest alcohol content beer he could find. Son believes pt is now back to drinking liquor. SW discussed possible need for care home facility due to unsteadiness and difficulty caring for himself at this time. Pt's son feels pt need alcohol rehab and not SNF due to plea deal and pt's need to stop drinking. SHAYNA updated Addiction Therapist on conversation with son. CAR Walter
[2023-05-23] MEDS: hydrOXYzine PAM 25 MG Capsule 50 MG PO (20:28)
[2023-05-23] MEDS: traZODone 100 MG Tablet PO (20:28)
[2023-05-23 21:00] VITALS: BP 124/70; PULSE 83; RESP 16; TEMP 37; O2SAT 97
[2023-05-23] MEDS: LORazepam 1 MG Tablet 2 MG PO (21:58)
[2023-05-23] MEDS: Gabapentin 300 MG Capsule PO (21:58)
--- NOTE | 2023-05-24 01:54 | NURSING ---
Pt will not stay in the bed. nursing getting pulled into room every 10 min. Pt placed in a chair at nurses station. Pt not being very nice to staff, verbal
[2023-05-24 02:52] VITALS: BP 126/76; PULSE 85; RESP 18; TEMP 36.6; O2SAT 96
--- NOTE | 2023-05-24 04:44 | NURSING ---
Pt continues to sit at nursing desk in chair. Pt keeps trying to crawl out of chair. Pt taken to bathroom and put back in chair at desk.
[2023-05-24] MEDS: LORazepam 1 MG Tablet 2 MG PO ×2 (05:23→21:53)
[2023-05-24] MEDS: hydrOXYzine PAM 25 MG Capsule 50 MG PO ×2 (05:23→20:26)
[2023-05-24 05:35] VITALS: BMI 23.2
--- NOTE | 2023-05-24 08:47 | PN.HOSP_ITS ---
Reason for Visit Reason for Visit: Diagnoses Moderate protein-calorie malnutrition (05/16/23) Unspecified protein-calorie malnutrition (05/16/23) Alcohol use, unspecified with withdrawal delirium (05/16/23) Other malaise (05/16/23) Subjective Subjective sleeping. did not awake. Was inappropriate with staff last night. Objective Data Objective Data Vital Signs: Vital Signs Temp Pulse Resp BP Pulse Ox O2 Del Method O2 Flow Rate 36.6 C 85 18 126/76 H 96 Room Air 2 05/24/23 02:52 05/24/23 02:52 05/24/23 02:52 05/24/23 02:52 05/24/23 02:52 05/24/23 02:52 05/20/23 21:57 Oxygen Flow Rate (L/min) 2 Oxygen Delivery Method Room Air Weight: 73.4 kg Body Mass Index (BMI) 23.2 Intake & Output: Intake and Output for Last 24 Hours 05/22/23 05/23/23 05/24/23 23:59 23:59 23:59 Intake Total 300 / 300 Balance 300 / 300 Medical Nutrition Assessment Dietitian: Malnutrition Criteria Met Start: 05/17/23 10:15 Freq: Status: Active Protocol: Document 05/22/23 14:55 AG (Rec: 05/22/23 14:55 AG Desktop) Nutrition Malnutrition Evidence of Malnutrition Exists Yes Malnutrition (moderate): Chronic Evidenced By Suboptimal Energy Intake ( Moderate),Weight Loss (Severe) ,Physical Changes (Moderate) Clinical Problem Chronic Disease or Condition Related Malnutrition Etiology chronic, moderate malnutrition related to inadequate protein /calorie intake d/t excessive alcohol consumption Signs/Symptoms as evidenced by unintentional 9.5% wt loss x 5 months, estimated energy intake meeting <75% of estimated energy needs > 3 months; moderate muscle wasting/fat loss per physical exam Status Active Problem Recommendation Dietitian Recommendations/Changes continue regular diet; will continue ensure compact TID w/ meals d/t chronic malnutrition Lab / Micro Data 05/23/23 06:35 05/23/23 06:35 Physical Exam Const alert and no apparent distress Resp normal respiratory effort, no retractions, no use of accessory muscles and clear to auscultation bilaterally Cardio regular rate, regular rhythm, S1 normal heart sound and S2 normal heart sound GI normal to inspection, nondistended, normoactive bowel sounds and soft to palpati on Assessment & Plan Assessment/Plan (1) Alcohol withdrawal delirium, acute, hyperactive: PLAN: Admitted for alcohol withdrawal treatment and started on phenobarbital. Condition worsened and pt required dexmedetomidine gtt to get him through delirium tremens. On thiamine and folate Addiction medicine to see Phenobarbital held 05/21 due to somnolence (2) Malnutrition: QUALIFIERS: Malnutrition type: protein-calorie malnutrition Protein-calorie malnutrition severity: moderate Qualified Code(s): E44.0 - M oderate protein-calorie malnutrition PLAN: consult nutrition. per nutrition: chronic, moderate malnutrition related to inadequate protein/calorie intake d/t excessive alcohol consumption regular diet with ensure w meals. (3) Debility: PLAN: PT OT cannot rule out need for SNF. PLAN: Plan Chronic conditions: * Duodenal ulcers: Continue with PPI and sucralfate. * History of anemia secondary to bleeding duodenal ulcer. Hemoglobin has trended upwards and currently 10.4. * Hyponatremia likely associated with alcohol consumption. Monitor for now. Disposition: TBD. Additional therapy recommended. CM/SW to eval. Unclear if p atient would be agreeable. Complicating factor, pt was involved with RUTHANN. The auspices of him coming here was that he would have to go to alcohol rehabilitation. It is unclear if he would be able to go to a SNF given these circumstances. Charges/Coding Visit Charges Inpatient E&M: 88248 Subs Hosp L2
[2023-05-24 09:17] LABS: Pathologist Review Reviewed
--- NOTE | 2023-05-24 11:05 | NURSING ---
Will give AM medications once pt is awake, pt was awake all night for it assistant and was very noncompliant, have been rounding on pt and he is sleeping comfortably
[2023-05-24 12:00] VITALS: BP 135/80; PULSE 90; RESP 18; TEMP 37; O2SAT 99
[2023-05-24] MEDS: Folic Acid 1 MG Tablet PO (12:03)
[2023-05-24] MEDS: Thiamine Hydrochloride 100 MG Tablet PO (12:03)
[2023-05-24] MEDS: Menthol/Lanolin/Calamine/Znox 113 GM Tube 1 APPLIC TOPICAL ×2 (12:03→21:56)
--- NOTE | 2023-05-24 14:39 | CASEMGMT ---
Social Work SW spoke with addiction therapist. Pt has been denied for alcohol inpatient rehab at [facility]. Pt's poor fuctional ability is prohibitive in placement. SW met with pt who states he is in [place] and is unable to answer SW questions appropriately at this time. SW spoke with pt regarding need for SNF for physical rehabilitation. Pt stating he is unable to think about this and SW updated pt that SW will contact pt son for discussion. SW placed call to pt's son Messi Waldrop and explained that alcohol rehab facilities have denied due to functional limitations and recommendations for pt to go to SNF. Pt son is frustrated with pt's condition as son states he visited pt 2 weeks ago and pt was lucid and moving well. SW spoke with pt's son regarding detox and effects and pts current confusion and debility. Pt's son agreeable to SNF SW offered to email or text SNF choices and son denied. SW reviewed some options with son. Pt's son stating he has no preference and agreeable to referral to any facility. Referrals to be sent to local facilities. SW will await determination of acceptance. CAR Walter
[2023-05-24 17:00] VITALS: BP 128/74; PULSE 88; RESP 16; TEMP 36.9; O2SAT 98
[2023-05-24 20:13] VITALS: BP 126/75; PULSE 81; RESP 16; TEMP 36.6; O2SAT 100
[2023-05-24] MEDS: traZODone 100 MG Tablet PO (20:26)
[2023-05-24] MEDS: Gabapentin 300 MG Capsule PO (20:26)
[2023-05-24] MEDS: LORazepam 2 MG/ML Syringe IV (23:29)
[2023-05-25] MEDS: LORazepam 2 MG/ML Syringe IV (01:21)
[2023-05-25] MEDS: hydrOXYzine PAM 25 MG Capsule 50 MG PO ×3 (01:28→23:08)
[2023-05-25 02:33] VITALS: BP 169/96; PULSE 73; RESP 16; TEMP 36.4; O2SAT 100
[2023-05-25 06:00] VITALS: BMI 23.1
--- NOTE | 2023-05-25 07:37 | PN.HOSP_ITS ---
Reason for Visit Reason for Visit: Diagnoses Moderate protein-calorie malnutrition (05/16/23) Unspecified protein-calorie malnutrition (05/16/23) Alcohol use, unspecified with withdrawal delirium (05/16/23) Other malaise (05/16/23) Subjective Subjective Unaware of need for SNF. Objective Data Objective Data Vital Signs: Vital Signs Temp Pulse Resp BP Pulse Ox O2 Del Method O2 Flow Rate 36.4 C L 73 16 169/96 H 100 Room Air 2 05/25/23 02:33 05/25/23 02:33 05/25/23 02:33 05/25/23 02:33 05/25/23 02:33 05/25/23 02:33 05/20/23 21:57 Oxygen Flow Rate (L/min) 2 Oxygen Delivery Method Room Air Weight: 73.1 kg Body Mass Index (BMI) 23.1 Intake & Output: Intake and Output for Last 24 Hours 05/23/23 05/24/23 05/25/23 23:59 23:59 23:59 Intake Total 750 / 950 300 / 300 Balance 750 / 950 300 / 300 Medical Nutrition Assessment Dietitian: Malnutrition Criteria Met Start: 05/17/23 10:15 Freq: Status: Active Protocol: Document 05/22/23 14:55 AG (Rec: 05/22/23 14:55 AG Desktop) Nutrition Malnutrition Evidence of Malnutrition Exists Yes Malnutrition (moderate): Chronic Evidenced By Suboptimal Energy Intake ( Moderate),Weight Loss (Severe) ,Physical Changes (Moderate) Clinical Problem Chronic Disease or Condition Related Malnutrition Etiology chronic, moderate malnutrition related to inadequate protein /calorie intake d/t excessive alcohol consumption Signs/Symptoms as evidenced by unintentional 9.5% wt loss x 5 months, estimated energy intake meeting <75% of estimated energy needs > 3 months; moderate muscle wasting/fat loss per physical exam Status Active Problem Recommendation Dietitian Recommendations/Changes continue regular diet; will continue ensure compact TID w/ meals d/t chronic malnutrition Lab / Micro Data 05/23/23 06:35 05/23/23 06:35 Labs: Laboratory Results - last 24 hr 05/23/23 06:35: Diff Path Review Reviewed Physical Exam Const alert Constitutional Narrative: making inappropriate comments and questions. Neuro oriented x3 Sensorium / Orientation: awake and alert Assessment & Plan Assessment/Plan (1) Alcohol withdrawal delirium, acute, hyperactive: PLAN: Admitted for alcohol withdrawal treatment and started on phenobarbital. Condition worsened and pt required dexmedetomidine gtt to get him through delirium tremens. On thiamine and folate Addiction medicine to see Phenobarbital held 05/21 due to somnolence (2) Malnutrition: QUALIFIERS: Malnutrition type: protein-calorie malnutrition Protein-calorie malnutrition severity: moderate Qualified Code(s): E44.0 - Moderate protein-calorie malnutrition PLAN: consult nutrition. per nutrition: chronic, moderate malnutrition related to inadequate protein/calorie intake d/t excessive alcohol consumption regular diet with ensure w meals. (3) Debility: PLAN: PT OT cannot rule out need for SNF. PLAN: Plan Chronic conditions: * Duodenal ulcers: Continue with PPI and sucralfate. * History of anemia secondary to bleeding duodenal ulcer. Hemoglobin has trended upwards and currently 10.4. * Hyponatremia likely associated with alcohol consumption. Monitor for now. Disposition: TBD. To [facility] pending insurance authorization. Charges/Coding Visit Charges Inpatient E&M: 38246 Subs Hosp L1
--- NOTE | 2023-05-25 08:20 | CASEMGMT ---
Discharge Planning Referral sent via [facility] to [facility], [facility]), and [facility]. Erika Figueroa, Discharge Planning Asst.
[2023-05-25 09:44] VITALS: BP 117/78; PULSE 83; RESP 18; TEMP 37.1; O2SAT 100
[2023-05-25] MEDS: Folic Acid 1 MG Tablet PO (09:53)
[2023-05-25] MEDS: Thiamine Hydrochloride 100 MG Tablet PO (09:53)
[2023-05-25] MEDS: Menthol/Lanolin/Calamine/Znox 113 GM Tube 1 APPLIC TOPICAL ×2 (09:53→22:43)
[2023-05-25] MEDS: Gabapentin 300 MG Capsule PO ×2 (10:00→23:09)
--- NOTE | 2023-05-25 14:47 | CASEMGMT ---
Social Work [facility] and [facility] denied acceptance of patient. [facility] accepted pt and precert has been started. SW attempted to meet with pt but pt sleeping soundly and SW did not awake. VM left with pt's son and update him on discharge plan. Plan: [facility], pending precert CAR Walter
[2023-05-25 16:26] VITALS: BP 110/60; PULSE 92; RESP 18; TEMP 37.2; O2SAT 99
[2023-05-25 22:46] VITALS: BP 122/74; PULSE 77; RESP 16; TEMP 37.1; O2SAT 100
[2023-05-25] MEDS: 0.9% Saline Lock 10 ML Syringe IV (23:02)
[2023-05-26 06:00] VITALS: BP 150/89; PULSE 75; RESP 14; TEMP 36.8; O2SAT 100; BMI 23.3
--- NOTE | 2023-05-26 07:51 | PCM.PN.HOSP ---
Reason for Visit Reason for Visit: Diagnoses Moderate protein-calorie malnutrition (05/16/23) Unspecified protein-calorie malnutrition (05/16/23) Alcohol use, unspecified with withdrawal delirium (05/16/23) Other malaise (05/16/23) Subjective Subjective Denies complaints. Objective Data Objective Data Vital Signs: Vital Signs Temp Pulse Resp BP Pulse Ox O2 Del Method O2 Flow Rate 36.8 C 75 14 150/89 H 100 Room Air 2 05/26/23 06:00 05/26/23 06:00 05/26/23 06:00 05/26/23 06:00 05/26/23 06:00 05/26/23 06:00 05/20/23 21:57 Oxygen Flow Rate (L/min) 2 Oxygen Delivery Method Room Air Weight: 61.7 kg Body Mass Index (BMI) 19.5 Intake & Output: Intake and Output for Last 24 Hours 05/24/23 05/25/23 05/26/23 23:59 23:59 23:59 Intake Total 750 / 950 1550 / 1550 200 / 200 Output Total 150 / 150 Balance 750 / 950 1550 / 1550 50 / 50 Medical Nutrition Assessment Dietitian: Malnutrition Criteria Met Start: 05/17/23 10:15 Freq: Status: Active Protocol: Document 05/22/23 14:55 AG (Rec: 05/22/23 14:55 AG Desktop) Nutrition Malnutrition Evidence of Malnutrition Exists Yes Malnutrition (moderate): Chronic Evidenced By Suboptimal Energy Intake ( Moderate),Weight Loss (Severe) ,Physical Changes (Moderate) Clinical Problem Chronic Disease or Condition Related Malnutrition Etiology chronic, moderate malnutrition related to inadequate protein /calorie intake d/t excessive alcohol consumption Signs/Symptoms as evidenced by unintentional 9.5% wt loss x 5 months, estimated energy intake meeting <75% of estimated energy needs > 3 months; moderate muscle wasting/fat loss per physical exam Status Active Problem Recommendation Dietitian Recommendations/Changes continue regular diet; will continue ensure compact TID w/ meals d/t chronic malnutrition Lab / Micro Data 05/23/23 06:35 05/23/23 06:35 Physical Exam Const no apparent distress Constitutional Narrative: cachectic. afebrile. Neuro Neuro Narrative: up ambulating with therapy with narrow based gait. Sensorium / Orientation: awake and alert Assessment & Plan Assessment/Plan (1) Alcohol withdrawal delirium, acute, hyperactive: PLAN: Admitted for alcohol withdrawal treatment and started on phenobarbital. Condition worsened and pt required dexmedetomidine gtt to get him through delirium tremens. On thiamine and folate Addiction medicine to see Phenobarbital held 05/21 due to somnolence (2) Malnutrition: QUALIFIERS: Malnutrition type: protein-calorie malnutrition Protein-calorie malnutrition severity: moderate Qualified Code(s): E44.0 - Moderate protein-calorie malnutrition PLAN: consult nutrition. per nutrition: chronic, moderate malnutrition related to inadequate protein/calorie intake d/t excessive alcohol consumption regular diet with ensure w meals. (3) Debility: PLAN: PT OT Needs SNF. PLAN: Plan Chronic conditions: Duodenal ulcers: Continue with PPI and sucralfate. History of anemia secondary to bleeding duodenal ulcer. Hemoglobin has trended upwards and currently 10.4. Hyponatremia likely associated with alcohol consumption. Monitor for now. Disposition: TBD. To [facility] pending insurance authorization. Charges/Coding Visit Charges Inpatient E&M: 17513 Subs Hosp L1
[2023-05-26] MEDS: Folic Acid 1 MG Tablet PO (08:01)
[2023-05-26] MEDS: Thiamine Hydrochloride 100 MG Tablet PO (08:01)
[2023-05-26 10:00] VITALS: BP 152/81; PULSE 78; RESP 18; TEMP 36.8; O2SAT 100
[2023-05-26] MEDS: Menthol/Lanolin/Calamine/Znox 113 GM Tube 1 APPLIC TOPICAL ×2 (10:50→20:32)
--- NOTE | 2023-05-26 12:52 | CASEMGMT ---
Social Work SW let pt know that [facility] can take pt when he is ready for discharge. SW explained this is for rehab so he can get stronger. Pt states understanding and is agreeable. ALLAN Joseph
[2023-05-26] MEDS: Gabapentin 300 MG Capsule PO ×2 (14:04→22:29)
[2023-05-26] MEDS: LORazepam 1 MG Tablet 2 MG PO ×2 (14:04→20:31)
[2023-05-26 17:50] VITALS: BP 117/75; PULSE 70; RESP 18; TEMP 37.2; O2SAT 100
[2023-05-26 20:19] VITALS: BP 141/82; PULSE 81; RESP 16; TEMP 36.8; O2SAT 97
[2023-05-26] MEDS: hydrOXYzine PAM 25 MG Capsule 50 MG PO (22:29)
[2023-05-27 03:00] VITALS: BP 158/84; PULSE 73; RESP 16; TEMP 36.6; O2SAT 98
[2023-05-27] MEDS: LORazepam 1 MG Tablet 2 MG PO ×2 (03:26→22:47)
[2023-05-27 06:00] VITALS: BMI 23.6
--- NOTE | 2023-05-27 07:56 | PCM.PN.HOSP ---
Reason for Visit Reason for Visit: Diagnoses Moderate protein-calorie malnutrition (05/16/23) Unspecified protein-calorie malnutrition (05/16/23) Alcohol use, unspecified with withdrawal delirium (05/16/23) Other malaise (05/16/23) Subjective Subjective Patient states that he is walking fine and asking if he can just go home. Objective Data Objective Data Vital Signs: Vital Signs Temp Pulse Resp BP Pulse Ox O2 Del Method O2 Flow Rate 36.6 C 73 16 158/84 H 98 Room Air 2 05/27/23 03:00 05/27/23 03:00 05/27/23 03:00 05/27/23 03:00 05/27/23 03:00 05/27/23 03:17 05/20/23 21:57 Oxygen Flow Rate (L/min) 2 Oxygen Delivery Method Room Air Weight: 74.8 kg Body Mass Index (BMI) 23.6 Intake & Output: Intake and Output for Last 24 Hours 05/25/23 05/26/23 05/27/23 23:59 23:59 23:59 Intake Total 1550 / 1550 2050 / 3050 1240 / 1240 Output Total 150 / 150 Balance 1550 / 1550 1900 / 2900 1240 / 1240 Medical Nutrition Assessment Dietitian: Malnutrition Criteria Met Start: 05/17/23 10:15 Freq: Status: Active Protocol: Document 05/22/23 14:55 AG (Rec: 05/22/23 14:55 AG Desktop) Nutrition Malnutrition Evidence of Malnutrition Exists Yes Malnutrition (moderate): Chronic Evidenced By Suboptimal Energy Intake ( Moderate),Weight Loss (Severe) ,Physical Changes (Moderate) Clinical Problem Chronic Disease or Condition Related Malnutrition Etiology chronic, moderate malnutrition related to inadequate protein /calorie intake d/t excessive alcohol consumption Signs/Symptoms as evidenced by unintentional 9.5% wt loss x 5 months, estimated energy intake meeting <75% of estimated energy needs > 3 months; moderate muscle wasting/fat loss per physical exam Status Active Problem Recommendation Dietitian Recommendations/Changes continue regular diet; will continue ensure compact TID w/ meals d/t chronic malnutrition Lab / Micro Data 05/23/23 06:35 05/23/23 06:35 Physical Exam Const alert and no apparent distress Constitutional Narrative: Appears more coherent today. Psych affect normal Assessment & Plan Assessment/Plan (1) Alcohol withdrawal delirium, acute, hyperactive: PLAN: Resolved admitted for alcohol withdrawal treatment and started on phenobarbital. Condition worsened and pt required dexmedetomidine gtt to get him through delirium tremens. On thiamine and folate Addiction medicine to see Phenobarbital held 05/21 due to somnolence Patient was asked about driving restrictions. I told him that would be up to the police or Pumper Gager Apprentice. He was asking if he could have permission to go to [facility]. I told him again that would have to be up to the police or the test clerk. (2) Malnutrition: QUALIFIERS: Malnutrition type: protein-calorie malnutrition Protein-calorie malnutrition severity: moderate Qualified Code(s): E44.0 - Moderate protein-calorie malnutrition PLAN: consult nutrition. per nutrition: chronic, moderate malnutrition related to inadequate protein/calorie intake d/t excessive alcohol consumption regular diet with ensure w meals. (3) Debility: PLAN: PT OT Needs SNF. Patient asking about going home. I told him that is what he decides and we would have to notify the police that he is leaving it is unclear if he would need to go to detention or not. When he is present with that he said that he would be open to going to a halfway facility. PLAN: Plan Chronic conditions: Duodenal ulcers: Continue with PPI and sucralfate. History of anemia secondary to bleeding duodenal ulcer. Hemoglobin has trended upwards and currently 10.4. Hyponatremia likely associated with alcohol consumption. Monitor for now. Disposition: TBD[facility] insurance authorization. Greater than 35 minutes of which greater than 50% of time was counseling patient about bedside about the need for halfway facility but also informing him of the possibility they may need to go to detention if he does not go to a facility. Charges/Coding Visit Charges Inpatient E&M: 90052 Subs Hosp L2
[2023-05-27 09:30] VITALS: BP 162/85; PULSE 85; RESP 20; TEMP 36.8; O2SAT 100
[2023-05-27] MEDS: Thiamine Hydrochloride 100 MG Tablet PO (09:34)
[2023-05-27] MEDS: Folic Acid 1 MG Tablet PO (09:34)
[2023-05-27] MEDS: Menthol/Lanolin/Calamine/Znox 113 GM Tube 1 APPLIC TOPICAL ×2 (09:34→19:43)
[2023-05-27] MEDS: Gabapentin 300 MG Capsule PO ×2 (13:20→21:33)
[2023-05-27 13:47] VITALS: BP 122/59; PULSE 96; RESP 18; TEMP 36.8; O2SAT 98
[2023-05-27 19:36] VITALS: BP 125/73; PULSE 96; RESP 16; TEMP 36.9; O2SAT 98
[2023-05-27] MEDS: traZODone 100 MG Tablet PO (21:33)
[2023-05-27] MEDS: hydrOXYzine PAM 25 MG Capsule 50 MG PO (21:33)
[2023-05-27] MEDS: Acetaminophen 500 MG Tablet PO (22:47)
[2023-05-28] MEDS: LORazepam 1 MG Tablet 2 MG PO ×6 (00:19→23:02)
[2023-05-28 03:00] VITALS: BP 138/64; PULSE 82; RESP 16; TEMP 36.8; O2SAT 98
[2023-05-28 06:00] VITALS: BMI 23.7
--- NOTE | 2023-05-28 07:44 | PCM.PN.HOSP ---
Reason for Visit Reason for Visit: Diagnoses Moderate protein-calorie malnutrition (05/16/23) Unspecified protein-calorie malnutrition (05/16/23) Alcohol use, unspecified with withdrawal delirium (05/16/23) Other malaise (05/16/23) Subjective Subjective Feels he is walking fine. Objective Data Objective Data Vital Signs: Vital Signs Temp Pulse Resp BP Pulse Ox O2 Del Method O2 Flow Rate 36.8 C 82 16 138/64 H 98 Room Air 2 05/28/23 03:00 05/28/23 03:00 05/28/23 03:00 05/28/23 03:00 05/28/23 03:00 05/28/23 04:00 05/20/23 21:57 Oxygen Flow Rate (L/min) 2 Oxygen Delivery Method Room Air Weight: 75.1 kg Body Mass Index (BMI) 23.7 Intake & Output: Intake and Output for Last 24 Hours 05/26/23 05/27/23 05/28/23 23:59 23:59 23:59 Intake Total 2050 / 3050 1240 / 1940 1200 / 1200 Output Total 150 / 150 250 / 250 Balance 1900 / 2900 990 / 1690 1200 / 1200 Medical Nutrition Assessment Dietitian: Malnutrition Criteria Met Start: 05/17/23 10:15 Freq: Status: Active Protocol: Document 05/22/23 14:55 AG (Rec: 05/22/23 14:55 AG Desktop) Nutrition Malnutrition Evidence of Malnutrition Exists Yes Malnutrition (moderate): Chronic Evidenced By Suboptimal Energy Intake ( Moderate),Weight Loss (Severe) ,Physical Changes (Moderate) Clinical Problem Chronic Disease or Condition Related Malnutrition Etiology chronic, moderate malnutrition related to inadequate protein /calorie intake d/t excessive alcohol consumption Signs/Symptoms as evidenced by unintentional 9.5% wt loss x 5 months, estimated energy intake meeting <75% of estimated energy needs > 3 months; moderate muscle wasting/fat loss per physical exam Status Active Problem Recommendation Dietitian Recommendations/Changes continue regular diet; will continue ensure compact TID w/ meals d/t chronic malnutrition Lab / Micro Data 05/23/23 06:35 05/23/23 06:35 Physical Exam Const alert Constitutional Narrative: cachectic. narrow-based gait. required assistance with ambulation by therapy. Resp normal respiratory effort Neuro Sensorium / Orientation: awake and alert Assessment & Plan Assessment/Plan (1) Alcohol withdrawal delirium, acute, hyperactive: PLAN: Resolved admitted for alcohol withdrawal treatment and started on phenobarbital. Condition worsened and pt required dexmedetomidine gtt to get him through delirium tremens. On thiamine and folate Addiction medicine to see Phenobarbital held 05/21 due to somnolence Patient was asked about driving restrictions. I told him that would be up to the police or Manager Perioperative. He was asking if he could have permission to go to [facility]. I told him again that would have to be up to the police or the payroll supervisor. (2) Malnutrition: QUALIFIERS: Malnutrition type: protein-calorie malnutrition Protein-calorie malnutrition severity: moderate Qualified Code(s): E44.0 - Moderate protein-calorie malnutrition PLAN: consult nutrition. per nutrition: chronic, moderate malnutrition related to inadequate protein/calorie intake d/t excessive alcohol consumption regular diet with ensure w meals. (3) Debility: PLAN: PT OT Needs SNF. Patient asking about going home. I told him that is what he decides and we would have to notify the police that he is leaving it is unclear if he would need to go to [facility] or not. When he is present with that he said that he would be open to going to a residential facility. PLAN: Plan Chronic conditions: Duodenal ulcers: Continue with PPI and sucralfate. History of anemia secondary to bleeding duodenal ulcer. Hemoglobin has trended upwards and currently 10.4. Hyponatremia likely associated with alcohol consumption. Monitor for now. Disposition: TBD. To [facility] pending insurance authorization. Charges/Coding Visit Charges Inpatient E&M: 44491 Subs Hosp L1
[2023-05-28 10:00] VITALS: BP 118/57; PULSE 86; RESP 18; TEMP 36.6; O2SAT 100
[2023-05-28] MEDS: Folic Acid 1 MG Tablet PO (10:09)
[2023-05-28] MEDS: Thiamine Hydrochloride 100 MG Tablet PO (10:09)
[2023-05-28] MEDS: Menthol/Lanolin/Calamine/Znox 113 GM Tube 1 APPLIC TOPICAL (10:09)
[2023-05-28] MEDS: Gabapentin 300 MG Capsule PO ×2 (10:15→21:33)
[2023-05-28] MEDS: hydrOXYzine PAM 25 MG Capsule 50 MG PO ×2 (10:15→21:33)
--- NOTE | 2023-05-28 10:49 | CASEMGMT ---
Discharge Planning Updates sent to [facility] Erika Figueroa, Discharge Planning Asst.
--- NOTE | 2023-05-28 17:20 | NURSING ---
this nurse responding to bed exit behind Dave BLUNT. pt found sitting on floor at end of bed near recliner. pt states fell. denies hitting his head. x2 small skin tears noted to left forearm. dressing 2x2- 3 applied by dave BLUNT. 141/85-80-100% RA. noted to be confused denies hitting head. pt assisted back to bed-bedexit placed. lodging house keeper called for sitter. Brenda REMELT OPERATOR to sit. primary RN informed
[2023-05-28 18:20] VITALS: BP 128/74; PULSE 80; RESP 20; TEMP 37.1; O2SAT 98
[2023-05-28 19:45] VITALS: BP 110/85; PULSE 80; RESP 18; TEMP 36.7; O2SAT 100
[2023-05-28] MEDS: traZODone 100 MG Tablet PO (21:33)
[2023-05-29 00:09] VITALS: BP 153/87; PULSE 83; RESP 18
[2023-05-29] MEDS: LORazepam 1 MG Tablet 2 MG PO ×3 (00:14→06:00)
[2023-05-29 01:09] VITALS: BP 163/89; PULSE 76; RESP 18; TEMP 36.7; O2SAT 98
[2023-05-29] MEDS: hydrOXYzine PAM 25 MG Capsule 50 MG PO ×2 (01:13→06:00)
[2023-05-29 05:33] VITALS: BMI 23.7
[2023-05-29] MEDS: Gabapentin 300 MG Capsule PO (06:00)
[2023-05-29] MEDS: Acetaminophen 500 MG Tablet PO (06:00)
--- NOTE | 2023-05-29 07:50 | PN.HOSP_ITS ---
Reason for Visit Reason for Visit: Diagnoses Moderate protein-calorie malnutrition (05/16/23) Unspecified protein-calorie malnutrition (05/16/23) Alcohol use, unspecified with withdrawal delirium (05/16/23) Other malaise (05/16/23) Subjective Subjective Groggy and confabulating. Objective Data Objective Data Vital Signs: Vital Signs Temp Pulse Resp BP Pulse Ox O2 Del Method O2 Flow Rate 36.7 C 76 18 163/89 H 98 Room Air 2 05/29/23 01:09 05/29/23 01:09 05/29/23 01:09 05/29/23 01:09 05/29/23 01:09 05/29/23 01:09 05/20/23 21:57 Oxygen Flow Rate (L/min) 2 Oxygen Delivery Method Room Air Weight: 75.1 kg Body Mass Index (BMI) 23.7 Intake & Output: Intake and Output for Last 24 Hours 05/27/23 05/28/23 05/29/23 23:59 23:59 23:59 Intake Total 1240 / 1940 2500 / 3100 740 / 740 Output Total 250 / 250 400 / 400 Balance 990 / 1690 2500 / 2700 340 / 340 Medical Nutrition Assessment Dietitian: Malnutrition Criteria Met Start: 05/17/23 10:15 Freq: Status: Active Protocol: Document 05/22/23 14:55 AG (Rec: 05/22/23 14:55 AG Desktop) Nutrition Malnutrition Evidence of Malnutrition Exists Yes Malnutrition (moderate): Chronic Evidenced By Suboptimal Energy Intake ( Moderate),Weight Loss (Severe) ,Physical Changes (Moderate) Clinical Problem Chronic Disease or Condition Related Malnutrition Etiology chronic, moderate malnutrition related to inadequate protein /calorie intake d/t excessive alcohol consumption Signs/Symptoms as evidenced by unintentional 9.5% wt loss x 5 months, estimated energy intake meeting <75% of estimated energy needs > 3 months; moderate muscle wasting/fat loss per physical exam Status Active Problem Recommendation Dietitian Recommendations/Changes continue regular diet; will continue ensure compact TID w/ meals d/t chronic malnutrition Lab / Micro Data 05/23/23 06:35 05/23/23 06:35 Physical Exam Const Constitutional Narrative: confused. confabulating. Neuro Sensorium / Orientation: awake Assessment & Plan Assessment/Plan (1) Alcohol withdrawal delirium, acute, hyperactive: PLAN: Resolved admitted for alcohol withdrawal treatment and started on phenobarbital. Condition worsened and pt required dexmedetomidine gtt to get him through delirium tremens. On thiamine and folate Addiction medicine to see Phenobarbital held 05/21 due to somnolence Somnolence persists. DC gabapentin and lorazepam, which he has still obtained. (2) Malnutrition: QUALIFIERS: Malnutrition type: protein-calorie malnutrition Protein-calorie malnutrition severity: moderate Qualified Code(s): E44.0 - Moderate protein-calorie malnutrition PLAN: consult nutrition. per nutrition: chronic, moderate malnutrition related to inadequate protein/calorie intake d/t excessive alcohol consumption regular diet with ensure w meals. (3) Debility: PLAN: PT OT Declined for SNF by insurance. Hopefully he will improve enough to be stable for discharge. PLAN: Plan Chronic conditions: * Duodenal ulcers: Continue with PPI and sucralfate. * History of anemia secondary to bleeding duodenal ulcer. Hemoglobin has trended upwards and currently 10.4. * Hyponatremia likely associated with alcohol consumption. Monitor for now. Disposition: TBD. To be discharge when medically stable. Police/vibration technician may need to be notified as pt brought in for an RUTHANN. Unclear if he would have to go to [facility]. Charges/Coding Visit Charges Inpatient E&M: 81862 Subs Hosp L2
[2023-05-29 07:59] VITALS: BP 144/78; PULSE 73; RESP 16; TEMP 36.6; O2SAT 99
[2023-05-29] MEDS: Thiamine Hydrochloride 100 MG Tablet PO (08:10)
[2023-05-29] MEDS: Folic Acid 1 MG Tablet PO (08:10)
[2023-05-29] MEDS: Menthol/Lanolin/Calamine/Znox 113 GM Tube 1 APPLIC TOPICAL ×2 (09:46→20:55)
--- NOTE | 2023-05-29 10:15 | CASEMGMT ---
Social Work SW received message from [facility] that Pt's insurance intends to deny precert and peer to peer can be completed by noon. Physician updated and will complete Peer to Peer. [facility] call [facility] and Peer to Peer scheduled. Dr. Zavala from [facility] will call Dr. Souza between 1100 and 1200. Physician updated. CAR Walter
[2023-05-29 17:30] VITALS: BP 116/71; PULSE 86; RESP 16; TEMP 37.2; O2SAT 98
[2023-05-29 19:22] VITALS: BP 103/47; PULSE 94; RESP 18; TEMP 37.2; O2SAT 99
[2023-05-29] MEDS: traZODone 100 MG Tablet PO (23:38)
[2023-05-30 01:13] VITALS: BP 137/66; PULSE 86; RESP 17; TEMP 36.9; O2SAT 100
--- NOTE | 2023-05-30 02:41 | NURSING ---
pt out at nursing desk.Pt walking around. Pt very unstable on his feet. Pt requiring staff to stay w pt at all times. He is very impulsive
[2023-05-30 05:42] VITALS: BP 153/69; PULSE 82; RESP 18; TEMP 36.6; O2SAT 100
[2023-05-30 07:03] VITALS: BMI 23.6
--- NOTE | 2023-05-30 08:29 | PCM.PN.HOSP ---
Reason for Visit Reason for Visit: Diagnoses Moderate protein-calorie malnutrition (05/16/23) Unspecified protein-calorie malnutrition (05/16/23) Alcohol use, unspecified with withdrawal delirium (05/16/23) Other malaise (05/16/23) Objective Data Objective Data Vital Signs: Vital Signs Temp Pulse Resp BP Pulse Ox O2 Del Method O2 Flow Rate 97.8 F 82 18 153/69 H 100 Room Air 2 05/30/23 05:42 05/30/23 05:42 05/30/23 05:42 05/30/23 05:42 05/30/23 05:42 05/30/23 05:42 05/20/23 21:57 Oxygen Flow Rate (L/min) 2 Oxygen Delivery Method Room Air Weight: 164 lb 10.965 oz Body Mass Index (BMI) 23.6 Intake & Output: Intake and Output for Last 24 Hours 05/28/23 05/29/23 05/30/23 23:59 23:59 23:59 Intake Total 2500 / 3100 1790 / 1790 Output Total 400 / 400 Balance 2500 / 2700 1390 / 1390 Medical Nutrition Assessment Dietitian: Malnutrition Criteria Met Start: 05/17/23 10:15 Freq: Status: Active Protocol: Document 05/22/23 14:55 AG (Rec: 05/22/23 14:55 AG Desktop) Nutrition Malnutrition Evidence of Malnutrition Exists Yes Malnutrition (moderate): Chronic Evidenced By Suboptimal Energy Intake ( Moderate),Weight Loss (Severe) ,Physical Changes (Moderate) Clinical Problem Chronic Disease or Condition Related Malnutrition Etiology chronic, moderate malnutrition related to inadequate protein /calorie intake d/t excessive alcohol consumption Signs/Symptoms as evidenced by unintentional 9.5% wt loss x 5 months, estimated energy intake meeting <75% of estimated energy needs > 3 months; moderate muscle wasting/fat loss per physical exam Status Active Problem Recommendation Dietitian Recommendations/Changes continue regular diet; will continue ensure compact TID w/ meals d/t chronic malnutrition Lab / Micro Data 05/23/23 06:35 05/23/23 06:35 Physical Exam Narrative no apparent distress and average body habitus General Appearance: Patient appears older than his stated age Orientation / Consciousness: Patient is lethargic, he does not appear to be in any distress normocephalic, head/scalp atraumatic and moist oral mucous membranes Eyes PERRL, EOMs intact bilaterally and conjunctivae normal Neck supple, no JVD, thyroid normal and no carotid bruits General: trachea midline Resp normal respiratory effort, no retractions, no use of accessory muscles and clear to auscultation bilaterally Auscultation: Negative for rales, rhonchi or wheezes Cardio regular rate, regular rhythm, S1 normal heart sound, S2 normal heart sound, no murmurs, no rub and no gallops GI normal to inspection, nondistended, normoactive bowel sounds, soft to palpation, non-tender and non-distended Extremity no clubbing, cyanosis or edema Skin no rashes or lesions noted General Skin Exam: no breakdown Neuro CN's II-XII intact bilaterally, no focal motor deficits and no sensory deficits noted Sensorium / Orientation: Patient is lethargic, he is in no distress Psych Patient is lethargic, he is in no distress HEENT normocephalic, head/scalp atraumatic and moist oral mucous membranes Eyes PERRL, EOMs intact bilaterally and conjunctivae normal Neck supple, no JVD, thyroid normal and no carotid bruits General: trachea midline Resp normal respiratory effort, no retractions, no use of accessory muscles and clear to auscultation bilaterally Auscultation: Negative for rales, rhonchi or wheezes Cardio regular rate, regular rhythm, S1 normal heart sound, S2 normal heart sound, no murmurs, no rub and no gallops GI normal to inspection, nondistended, normoactive bowel sounds, soft to palpation, non-tender and non-distended Extremity no clubbing, cyanosis or edema Skin no rashes or lesions noted General Skin Exam: no breakdown Neuro oriented x3, CN's II-XII intact bilaterally, moves all extremities, no focal motor deficits and no sensory deficits noted Neuro Narrative: up ambulating with therapy with narrow based gait. Sensorium / Orientation: awake, alert, oriented to person, oriented to place and oriented to time Speech: speech normal Psych affect normal Assessment & Plan Assessment/Plan (1) Alcohol withdrawal delirium, acute, hyperactive: PLAN: Resolved admitted for alcohol withdrawal treatment and started on phenobarbital. Condition worsened and pt required dexmedetomidine gtt to get him through delirium tremens. On thiamine and folate Addiction medicine to see Phenobarbital held 05/21 due to somnolence Somnolence persists. DC gabapentin and lorazepam, which he has still obtained. (2) Malnutrition: QUALIFIERS: Malnutrition type: protein-calorie malnutrition Protein-calorie malnutrition severity: moderate Qualified Code(s): E44.0 - Moderate protein-calorie malnutrition PLAN: consult nutrition. per nutrition: chronic, moderate malnutrition related to inadequate protein/calorie intake d/t excessive alcohol consumption regular diet with ensure w meals. (3) Debility: PLAN: PT OT Declined for SNF by insurance. Hopefully he will improve enough to be stable for discharge. PLAN: Plan Chronic conditions: Duodenal ulcers: Continue with PPI and sucralfate. History of anemia secondary to bleeding duodenal ulcer. Hemoglobin has trended upwards and currently 10.4. Hyponatremia likely associated with alcohol consumption. Monitor for now. Disposition: TBD. To be discharge when medically stable. Police/deputy sheriff court services may need to be notified as pt brought in for an RUTHANN. Unclear if he would have to go to [facility].
[2023-05-30] MEDS: Folic Acid 1 MG Tablet PO (09:15)
[2023-05-30] MEDS: Menthol/Lanolin/Calamine/Znox 113 GM Tube 1 APPLIC TOPICAL (09:15)
[2023-05-30] MEDS: Thiamine Hydrochloride 100 MG Tablet PO (09:15)
[2023-05-30 09:22] VITALS: BP 144/74; PULSE 86; RESP 18; TEMP 37.3; O2SAT 100
--- NOTE | 2023-05-30 10:05 | DCINST_ITS ---
Discharge Instructions Diet Discharge Diet: No restrictions Activity Discharge Activity: Return to Normal Activity Weight Bearing Status: Weight bearing as tolerated Dressing / Incision Call your doctor if you observe: Fever of 101 or Higher, Coldness, Increased Pain, Numbness or Tingling, Change in Color, Inability to urinate, Inability to have a bowel movement, Shortness of breath, Dizziness, Fainting spells, Swelling in the ankles, Chest pain, Prolonged hiccupping, Increased palpitations (irregular heartbeat) and Calf discomfort Follow Up Care When: IN 2 WEEKS Test Results: Test results from this visit will be discussed in further detail at your follow- up appointment, if applicable. Discharge Plan Admission Admit Date/Time: 05/16/23 11:44 Primary Reason for Your Visit: Acute alcohol withdrawal syndrome. Attending Provider: Joey Luong Primary Care Provider: Rena Springer Consulting Providers: Kavin Myrick; Galen Souza Discharge Orders/Prescriptions Prescriptions: New thiamine HCl (vitamin B1) [Vitamin B-1] 100 mg Tablet 100 mg PO DAILYCM Qty: 30 2RF nicotine 21 mg/24 hr Patch 24 Hour 21 mg transdermal DAILY Qty: 21 0RF folic acid 1 mg Tablet 1 mg PO DAILY@0800 Qty: 30 3RF Continued melatonin 5 mg tablet 10 mg PO QHS Changed Ibuprofen PM 200-38 mg tablet 2 cap PO QHS PRN (Reason: PAIN) 3 Days Qty: 0 0RF Referrals / Follow Up: Rena Springer MD [Primary Care Provider] - Disposition Disposition (needs filled in before D/C Order can be placed): Home, Self Care
--- NOTE | 2023-05-30 11:20 | CASEMGMT ---
Addendum entered by Imani Li 05/30/23 16:35: Social Work 1545: Phone call received from pt's son Dewayne Waldrop stating he does not feel pt can return home as he will start drinking again and pt is not safe. SHAYNA reviewed with Dewayne that alcohol rehab acceptance has not been acquired. SHAYNA also explained pt was accepted at [facility] in [place] but pt refused. This program is a 12 month program and pt will have to do some work while there. Also, SNF was attempted, but insurance denied paying for SNF. SW offered option of pt going to SNF self pay. Son uncertain if pt has finances to pay for this. Pt owns two properties so will not qualify for Medicaid. Dewayne states that the couches have been removed from pt's home as pt has defecated on them and they were no longer usable. There is no where for pt to sleep tonight in his home and Dewayne has to go to work and cannot assist this evening with housing situation. SW will speak with physician about pt remaining in hospital until Dewayne is able to arrange discharge tomorrow. 1600: Phone call received from pt's niece Madhuri Palma stating pt cannot return home. No where for pt to sleep as couches have been removed and pts brother Luís cannot care for pt. SHAYNA requested Madhuri touch base with Dewayne to discuss discharge plan moving forward. 1618: Phone call received from pt's son Dewayne. Dewayne states he has called off work tonight and will be coming to pickling machine operator pt at this time and will take pt to his home and figure things out from there. Physician and nursing updated. Plan: Pt to be picked up by his son and taken to his son's home. CAR Walter Addendum entered by Imani Li 05/30/23 15:32: Social Work SW placed call to pt's son Messi Buchanan and explained that insurance denied SNF placment and addiction therapist was unable to obtain residential treatment for patient. Messi agreeable to discharge home and will call pt's brother Luís or tanner Martinez to provide transportation. SW inquired about home health and son did not think this would be helpful. SHAYNA met with pt and updated that family will pick him up today and pt will return home. Pt agreeable and feels he is ready for discharge home. SW spoke with pt regarding drinking when he returns home and pt is certain his brother will have removed all alcohol from pt's home. SHAYNA also spoke with pt regarding driving and pt is aware he is not allowed to drive at this time. SHAYNA encouraged pt to followup with Addiction Therapist at [facility]. Pt agreeable and states his brother or niece can transport. CAR Walter LSW Addendum entered by Imani Li 05/30/23 14:12: Phone call to pt's son to discuss discharge plan. No answer. SHAYNA will continue to try to speak with pt's son. CAR Delgado Original Note: Social Work SHAYNA spoke with [facility] and peer to peer has been denied. Insurance has denied admission to Long Term Facility. SW updated physician and addiction therapist. Pt has been denied at [facility] Fac[facility]: [facility]. Pt accepted at [facility] in [place] but pt declines to go there due to the requirement to work while there. Pt does have an outpatient addiction counselor at [facility] with whom he can follow up. SHAYNA met with pt and pt is able to recognize this worker. Pt stating he is at [facility] and able to correctly state birthday. Pt does not know the year or month. SHAYNA spoke with pt regarding discharge plan and informed that SNF has been denied by insurance. Pt feels he can return home where he lives with his brother Luís and his niece Michelle lives across the street and provides assistance including with meals. SHAYNA discussed follow up with [facility] Counselor on an outpatient basis and pt is agreeable to this. Pt states his brother or niece can provide transportation. SHAYNA left a VM with pt's son Messi Buchanan May requesting return call to discuss discharge plan. CAR Walter
[2023-05-30] MEDS: Acetaminophen 500 MG Tablet PO (12:14)
[2023-05-30 14:02] VITALS: BP 139/62; PULSE 89; RESP 18; TEMP 37.5; O2SAT 98
--- NOTE | 2023-05-30 15:09 | DS.PCM_ITS ---
Providers Date of Admission: 05/16/23 Date of Discharge: 05/30/23 Primary Care Physician: Dr. 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 On 05/16 night patient was very agitated aggressive disoriented with incoherent speech despite being on phenobarbital and Ativan as per CIWA score therefore patient was transferred to ICU on Precedex drip. Phenobarbital was held while patient is on Precedex drip. After that patient was very drowsy and somnolent next following several days. Patient is awake and alert. Gabapentin and lorazepam were discontinued. Phenobarbitone was not given after starting Precedex On thiamine and folate Patient was seen by showcase maker and social welfare administrator. Phenobarbital held 05/21 due to somnolence DC gabapentin and lorazepam, which he has still obtained. On interdisciplinary rounds, social welfare administrator and showcase maker said that they have tried several senior care places but they do not take alcoholic patient and 1 p laced patient does not want to go (2) Malnutrition: Status: Acute Code(s): E46 - Unspecified protein-calorie malnutrition Qualifiers: Malnutrition type: protein-calorie malnutrition Protein-calorie maln utrition severity: moderate Qualified Code(s): E44.0 - Moderate protein-calorie malnutrition Plan: consult nutrition. per nutrition: chronic, moderate malnutrition related to inadequate protein/ calorie intake d/t excessive alcohol consumption regular diet with ensure w meals. Patient has many lingering social and legal issues including legal cases and he needs his cell phone to talk to the energy attorney. (3) Debility: Status: Acute Code(s): R53.81 - Other malaise Plan: PT OT Declined for SNF by insurance. Hopefully he will improve enough to be stable for discharge. Plan Chronic conditions: * Duodenal ulcers: Continue with PPI and sucralfate. * History of anemia secondary to bleeding duodenal ulcer. Hemoglobin has trended upwards and currently 10.4. * Hyponatremia likely associated with alcohol consumption. Last serum sodium 134. Medications at Discharge Home Medications melatonin 5 mg tablet 10 mg PO QHS 05/16/23 folic acid 1 mg tablet 1 mg PO DAILY@0800 #30 tabs 05/30/23 ibuprofen-diphenhydramine citrate 200 mg-38 mg tablet (Ibuprofen PM) 2 cap PO QHS PRN PAIN 3 days #0 tabs 05/30/23 nicotine 21 mg/24 hr daily transdermal patch 21 mg transdermal DAILY #21 ea 05/30/23 thiamine HCl (vitamin B1) 100 mg tablet (Vitamin B-1) 100 mg PO DAILYCM #30 tabs 05/30/23 Medical Records Data Medical Nutrition Assessment Dietitian: Malnutrition Criteria Met Start: 05/17/23 10:15 Freq: Status: Active Protocol: Document 05/22/23 14:55 AG (Rec: 05/22/23 14:55 AG Desktop) Nutrition Malnutrition Evidence of Malnutrition Exists Yes Malnutrition (moderate): Chronic Evidenced By Suboptimal Energy Intake ( Moderate),Weight Loss (Severe) ,Physical Changes (Moderate) Clinical Problem Chronic Disease or Condition Related Malnutrition Etiology chronic, moderate malnutrition related to inadequate protein /calorie intake d/t excessive alcohol consumption Signs/Symptoms as evidenced by unintentional 9.5% wt loss x 5 months, estimated energy intake meeting <75% of estimated energy needs > 3 months; moderate muscle wasting/fat loss per physical exam Status Active Problem Recommendation Dietitian Recommendations/Changes continue regular diet; will continue ensure compact TID w/ meals d/t chronic malnutrition Weight / BMI Weight Weight: 164 lb 10.965 oz Body Mass Index (BMI) 23.6 ABG / Lab / Microbiology Data 05/23/23 06:35 05/23/23 06:35 D/C Instructions Discharge Diet: No restrictions Weight Bearing Status: Weight bearing as tolerated Call your doctor if you observe: Fever of 101 or Higher, Coldness, Increased Pain, Numbness or Tingling, Change in Color, Inability to urinate, Inability to have a bowel movement, Shortness of breath, Dizziness, Fainting spells, Swelling in the ankles, Chest pain, Prolonged hiccupping, Increased palpitations (irregular heartbeat) and Calf discomfort When: IN 2 WEEKS Meaningful Use Info Meaningful Use Diagnoses (Choose all that apply): None applicable Discharge Plan Admission Admit Date/Time: 05/16/23 11:44 Primary Reason for Your Visit: Acute alcohol withdrawal syndrome. Attending Provider: Joey Luong Primary Care Provider: Rnea Springer Consulting Providers: Kavin Myrick; Galen Souza Discharge Orders/Prescriptions Prescriptions: New thiamine HCl (vitamin B1) [Vitamin B-1] 100 mg Tablet 100 mg PO DAILYCM Qty: 30 2RF nicotine 21 mg/24 hr Patch 24 Hour 21 mg transdermal DAILY Qty: 21 0RF folic acid 1 mg Tablet 1 mg PO DAILY@0800 Qty: 30 3RF Continued melatonin 5 mg tablet 10 mg PO QHS Changed Ibuprofen PM 200-38 mg tablet 2 cap PO QHS PRN (Reason: PAIN) 3 Days Qty: 0 0RF Referrals / Follow Up: Rena Springer MD [Primary Care Provider] - Disposition Disposition (needs filled in before D/C Order can be placed): Home, Self Care Charges/Coding Visit Charges Inpatient E&M: 08485 Disch Hosp >30min
[2023-05-30 17:30] VITALS: BP 139/79; PULSE 79; RESP 18; TEMP 36.9; O2SAT 98
== END 2023-05-30 18:43 | disposition home or self-care (01) | DRG 897 ==
LOC: ED 11:58 → PCU 13:47 → ICU 23:17 → MS3 05-18 15:04
PROVIDERS: Admitting Provider Internal Medicine; Emergency Provider Emergency Medicine; PCP Family Medicine; Visit Provider Internal Medicine
DX: F10.231 Alcohol dependence with withdrawal delirium (principal); E44.0 Moderate protein-calorie malnutrition; E87.1 Hypo-osmolality and hyponatremia; F17.220 Nicotine dependence, chewing tobacco, uncomplicated; F17.290 Nicotine dependence, other tobacco product, uncomplicated; Y90.3 Blood alcohol level of 60-79 mg/100 ml; R53.81 Other malaise; R91.8 Other nonspecific abnormal finding of lung field; Z68.23 Body mass index [BMI] 23.0-23.9, adult; Z65.3 Problems related to other legal circumstances; Z79.899 Other long term (current) drug therapy; Z87.19 Personal history of other diseases of the digestive system
CPT/HCPCS: 36415; 70450; 71046; 80048; 80053; 80307; 82077; 85025; 93005; 97116; 97162; 97166; 97530; 97535; 97803; 99284; A4216

== ENCOUNTER 2023-10-14 16:38 | Inpatient (IN) | payer MEDICARE, SELFPAY ==
[2023-10-14] VITALS (49 sets, daily range): BP systolic 76–122; BP diastolic 42–86; PULSE 58–150; RESP 14–34; TEMP 37; O2SAT 93–100; BMI 24.0
[2023-10-14 17:24] LABS: Absolute Lymphocyte Count 0.91 X10^3/uL (0.83-4.51); Absolute Neutrophil Count 12.2 X10^3/uL (2.0-7.7); Basophil# 0.03 X10^3/uL; Basophil% 0.2 % (0-1); Hematocrit 39.9 % (40-54); Hemoglobin 12.8 g/dL (13.0-16.5); Lymphocyte # 0.91 X10^3/ul (0.83-4.51); Lymphocyte % 6.2 % (19-41); Mean Corp Hgb Conc 32.1 g/dL (32-36); Mean Corpuscular Hgb 28.4 pg (27.0-32.0); Mean Corpuscular Volume 88.5 fL (80-94); Mean Platelet Vol. 11.1 fl (6.2-12.0); Monocyte# 1.33 X10^3/uL; Monocyte% 9.1 % (0-10); NRBC Flagged by Analyzer 0 % (0-5); Neutrophil # 12.22 X10^3/uL (2.7-7.7); Platelet Count 248 K/mm3 (150-450); RBC Distribution Width CV 17.6 % (11.6-14.6); Red Blood Count 4.51 M/mm3 (4.6-6.2); White Blood Count 14.6 K/mm3 (4.4-11.0)
--- NOTE | 2023-10-14 17:24 | EX.ED.DYSGE1 ---
HPI <TONI Calles - Last Filed: 10/14/23 20:56> History of Present Illness Chief Complaint: Palpitations Narrative Narrative: 68-year-old male with PMH of A-fib presents after falling twice today. He states this morning he had to urinate about [address] back to his room he fell twice. He states maybe he felt lightheaded but is not really sure. He did not hit his head or lose consciousness. He has a minor bump on his right arm. He was brought in by his son for evaluation. He recently had a 6-week inpatient stay for alcohol detox and just went home about 3 days ago. He has had 1 beer since discharge. During the last few months he was also newly diagnosed with A-fib and given an external defibrillator vest but he states he does not wear it. He is taking his multiple cardiac medications as prescribed. He supposed to check his blood pressure and only take some of them if it is high; however, today his brother gave his meds even though his pressure was normal so his son thinks this may have caused him to fall. Patient denies chest pain. He states he feels mildly short of breath. No palpitations or syncope. PFSH <TONI Calles - Last Filed: 10/14/23 20:56> [facility] Medical History Acute blood loss anemia Alcohol withdrawal Anxiety Anxiety and depression At high risk for malnutrition Behavior concern in adult Chewing tobacco use COPD (chronic obstructive pulmonary disease) Depression ETOH abuse GI bleed History of cancer tonsil Hypertension Hyponatremia Irregular heart beat Smoker Substance abuse Home Medications melatonin 5 mg tablet 10 mg PO QHS 05/16/23 [History Last Taken 05/15/23] folic acid 1 mg tablet 1 mg PO DAILY@0800 #30 tabs 05/30/23 [Rx Last Taken Unknown] ibuprofen-diphenhydramine citrate 200 mg-38 mg tablet (Ibuprofen PM) 2 cap PO QHS PRN PAIN 3 days #0 tabs 05/30/23 [Rx Last Taken 05/15/23] nicotine 21 mg/24 hr daily transdermal patch 21 mg transdermal DAILY #21 ea 05/30/23 [Rx Last Taken Unknown] thiamine HCl (vitamin B1) 100 mg tablet (Vitamin B-1) 100 mg PO DAILYCM #30 tabs 05/30/23 [Rx Last Taken Unknown] albuterol sulfate 90 mcg/actuation aerosol inhaler 1 puff inhalation Q4H PRN PRN dyspnea 10/14/23 [History Last Taken Unknown] amiodarone 100 mg tablet 200 mg PO DAILY 10/14/23 [History Last Taken Unknown] apixaban 5 mg tablet (Eliquis) 5 mg PO BID 10/14/23 [History Last Taken Unknown] bumetanide 1 mg tablet 1 mg PO BID 10/14/23 [History Last Taken Unknown] calcium carbonate 215 mg calcium (500 mg) chewable tablet (Antacid Calcium) 537.5 mg PO DAILY 10/14/23 [History Last Taken Unknown] cholecalciferol (vitamin D3) 25 mcg (1,000 unit) tablet 25 mcg PO DAILY 10/14/23 [History Last Taken Unknown] cyanocobalamin (vitamin B-12) 1,000 mcg tablet 500 mcg PO DAILY 10/14/23 [History Last Taken Unknown] digoxin 125 mcg (0.125 mg) tablet 62.5 mcg PO DAILY 10/14/23 [History Last Taken Unknown] empagliflozin 10 mg tablet (Jardiance) 10 mg PO DAILY diabetes mellitus 10/14/23 [History Last Taken Unknown] fluticasone 100 mcg-salmeterol 50 mcg/dose blistr powdr for inhalation 1 ea inhalation DAILY 10/14/23 [History Last Taken Unknown] losartan 50 mg tablet 50 mg PO DAILY blood pressure 10/14/23 [History Last Taken Unknown] mirtazapine 7.5 mg tablet 7.5 mg PO QHS depressive disorder 10/14/23 [History Last Taken Unknown] pyridoxine (vitamin B6) 25 mg tablet (Vitamin B-6) 25 mg PO DAILY anemia 10/14/23 [History Last Taken Unknown] sacubitril 24 mg-valsartan 26 mg tablet (Entresto) 1 tab PO BID 10/14/23 [History Last Taken Unknown] spironolactone 25 mg tablet 25 mg PO DAILY blood pressure 10/14/23 [History Last Taken Unknown] Allergy/AdvReac Type Severity Reaction Status Date / Time poison mike extract Allergy Mild RASH Verified 10/14/23 16:46 Family History Mother Diabetes Father Diabetes Brother Colon cancer Surgical History History of tonsillectomy and adenoidectomy Social History household members: other details: Lives with his son. Smoking Status: Former smoker Smokeless tobacco user: chewing tobacco and other alcohol intake: current alcohol intake frequency: 3 or more drinks per day details: 8-10 beers daily coupled with hard liquor. substance use type: does not use ROS <TONI Calles - Last Filed: 10/14/23 20:56> ROS ED ROS Narrative Constitutional: Negative for fever, chills, malaise. CVS: Negative for palpitations, chest pain. Respiratory: Negative for cough, orthopnea. GI: Negative for abdominal pain, nausea, vomiting, melena, hematochezia. EXAM <TONI Calles - Last Filed: 10/14/23 20:56> Physical Exam Narrative Exam Narrative: CONST: Patient sitting in no acute distress. EYES: Normal inspection. NECK: Normal inspection. RESP: No respiratory distress, CTAB. CVS: Tachycardic irregularly irregular rhythm, no murmur, no gallop. ABD: Soft and nontender, no guarding or rebound, nondistended. SKIN: Color normal, no rash, warm, dry, intact. EXTREMITIES: Normal appearance, no pedal edema. NEURO: Oriented x4. PSYCH: Normal affect. Const Vital Signs: 10/14/23 16:39 10/14/23 16:57 10/14/23 17:50 Temperature 98.6 F Temperature Source Oral Pulse Rate 150 H 123 H Respiratory Rate 22 H 16 Respiratory Effort Normal Blood Pressure 93/71 80/48 L Blood Pressure Mean 78 58 Pulse Ox 100 95 Oxygen Delivery Method Room Air Room Air 10/14/23 18:00 10/14/23 17:08 10/14/23 17:10 Temperature Temperature Source Pulse Rate 128 H 141 H 128 H Respiratory Rate 16 21 H 21 H Respiratory Effort Blood Pressure 103/73 Blood Pressure Mean 83 Pulse Ox 94 99 100 Oxygen Delivery Method Room Air 10/14/23 17:15 10/14/23 17:20 10/14/23 17:30 Temperature Temperature Source Pulse Rate 130 H 139 H 121 H Respiratory Rate 20 H 20 H 18 Respiratory Effort Blood Pressure 84/54 L 91/53 L Blood Pressure Mean 61 64 Pulse Ox 100 99 98 Oxygen Delivery Method 10/14/23 17:40 10/14/23 17:45 10/14/23 17:49 Temperature Temperature Source Pulse Rate 123 H Respiratory Rate 20 H Respiratory Effort Blood Pressure 80/59 L 80/42 L Blood Pressure Mean 68 56 Pulse Ox 99 Oxygen Delivery Method 10/14/23 17:50 10/14/23 18:00 10/14/23 18:10 Temperature Temperature Source Pulse Rate 142 H 120 H Respiratory Rate 24 H 16 Respiratory Effort Blood Pressure 103/73 Blood Pressure Mean 82 Pulse Ox 100 Oxygen Delivery Method 10/14/23 18:15 10/14/23 18:20 10/14/23 18:28 Temperature Temperature Source Pulse Rate 127 H 135 H 129 H Respiratory Rate 20 H 16 24 H Respiratory Effort Blood Pressure 76/59 L 102/63 Blood Pressure Mean 67 74 Pulse Ox 99 Oxygen Delivery Method 10/14/23 18:30 10/14/23 18:40 10/14/23 18:45 Temperature Temperature Source Pulse Rate 123 H 122 H Respiratory Rate 18 34 H Respiratory Effort Blood Pressure 104/57 L 97/70 Blood Pressure Mean 70 79 Pulse Ox Oxygen Delivery Method 10/14/23 18:50 10/14/23 19:00 10/14/23 19:10 Temperature Temperature Source Pulse Rate 130 H 123 H 132 H Respiratory Rate 17 17 16 Respiratory Effort Blood Pressure 93/68 Blood Pressure Mean 78 Pulse Ox Oxygen Delivery Method 10/14/23 19:15 10/14/23 19:20 10/14/23 19:30 Temperature Temperature Source Pulse Rate 128 H 124 H 141 H Respiratory Rate 19 H 18 22 H Respiratory Effort Blood Pressure 92/59 L 99/67 Blood Pressure Mean 70 78 Pulse Ox Oxygen Delivery Method 10/14/23 19:40 10/14/23 19:45 10/14/23 19:50 Temperature Temperature Source Pulse Rate 132 H 128 H 128 H Respiratory Rate 21 H 25 H 19 H Respiratory Effort Blood Pressure 93/67 Blood Pressure Mean 76 Pulse Ox Oxygen Delivery Method 10/14/23 20:00 10/14/23 20:10 10/14/23 20:15 Temperature Temperature Source Pulse Rate 131 H 128 H Respiratory Rate 21 H 24 H Respiratory Effort Blood Pressure 92/59 L 92/56 L Blood Pressure Mean 70 68 Pulse Ox Oxygen Delivery Method 10/14/23 20:27 10/14/23 20:30 10/14/23 20:45 Temperature Temperature Source Pulse Rate 125 H 117 H 120 H Respiratory Rate 19 H 17 18 Respiratory Effort Blood Pressure 99/63 107/52 L 96/55 L Blood Pressure Mean 76 68 66 Pulse Ox 93 100 Oxygen Delivery Method 10/14/23 21:00 10/14/23 21:00 10/14/23 21:15 Temperature Temperature Source Pulse Rate 124 H 133 H Respiratory Rate 20 H 20 H Respiratory Effort Blood Pressure 96/59 L 96/59 L 99/57 L Blood Pressure Mean 71 71 69 Pulse Ox 100 99 Oxygen Delivery Method 10/14/23 21:30 10/14/23 21:31 10/14/23 21:45 Temperature Temperature Source Pulse Rate 121 H 129 H 123 H Respiratory Rate 23 H 18 22 H Respiratory Effort Blood Pressure 102/62 96/53 L Blood Pressure Mean 75 67 Pulse Ox 99 98 98 Oxygen Delivery Method 10/14/23 22:00 10/14/23 22:15 Temperature Temperature Source Pulse Rate 127 H 140 H Respiratory Rate 26 H 20 H Respiratory Effort Blood Pressure 93/56 L 113/56 L Blood Pressure Mean 64 74 Pulse Ox 99 98 Oxygen Delivery Method <Dr. Vinay Temple, DO - Last Filed: 10/14/23 22:49> Physical Exam Const Vital Signs: 10/14/23 16:39 10/14/23 16:57 10/14/23 17:50 Temperature 98.6 F Temperature Source Oral Pulse Rate 150 H 123 H Respiratory Rate 22 H 16 Respiratory Effort Normal Blood Pressure 93/71 80/48 L Blood Pressure Mean 78 58 Pulse Ox 100 95 Oxygen Delivery Method Room Air Room Air 10/14/23 18:00 10/14/23 17:08 10/14/23 17:10 Temperature Temperature Source Pulse Rate 128 H 141 H 128 H Respiratory Rate 16 21 H 21 H Respiratory Effort Blood Pressure 103/73 Blood Pressure Mean 83 Pulse Ox 94 99 100 Oxygen Delivery Method Room Air 10/14/23 17:15 10/14/23 17:20 10/14/23 17:30 Temperature Temperature Source Pulse Rate 130 H 139 H 121 H Respiratory Rate 20 H 20 H 18 Respiratory Effort Blood Pressure 84/54 L 91/53 L Blood Pressure Mean 61 64 Pulse Ox 100 99 98 Oxygen Delivery Method 10/14/23 17:40 10/14/23 17:45 10/14/23 17:49 Temperature Temperature Source Pulse Rate 123 H Respiratory Rate 20 H Respiratory Effort Blood Pressure 80/59 L 80/42 L Blood Pressure Mean 68 56 Pulse Ox 99 Oxygen Delivery Method 10/14/23 17:50 10/14/23 18:00 10/14/23 18:10 Temperature Temperature Source Pulse Rate 142 H 120 H Respiratory Rate 24 H 16 Respiratory Effort Blood Pressure 103/73 Blood Pressure Mean 82 Pulse Ox 100 Oxygen Delivery Method 10/14/23 18:15 10/14/23 18:20 10/14/23 18:28 Temperature Temperature Source Pulse Rate 127 H 135 H 129 H Respiratory Rate 20 H 16 24 H Respiratory Effort Blood Pressure 76/59 L 102/63 Blood Pressure Mean 67 74 Pulse Ox 99 Oxygen Delivery Method 10/14/23 18:30 10/14/23 18:40 10/14/23 18:45 Temperature Temperature Source Pulse Rate 123 H 122 H Respiratory Rate 18 34 H Respiratory Effort Blood Pressure 104/57 L 97/70 Blood Pressure Mean 70 79 Pulse Ox Oxygen Delivery Method 10/14/23 18:50 10/14/23 19:00 10/14/23 19:10 Temperature Temperature Source Pulse Rate 130 H 123 H 132 H Respiratory Rate 17 17 16 Respiratory Effort Blood Pressure 93/68 Blood Pressure Mean 78 Pulse Ox Oxygen Delivery Method 10/14/23 19:15 10/14/23 19:20 10/14/23 19:30 Temperature Temperature Source Pulse Rate 128 H 124 H 141 H Respiratory Rate 19 H 18 22 H Respiratory Effort Blood Pressure 92/59 L 99/67 Blood Pressure Mean 70 78 Pulse Ox Oxygen Delivery Method 10/14/23 19:40 10/14/23 19:45 10/14/23 19:50 Temperature Temperature Source Pulse Rate 132 H 128 H 128 H Respiratory Rate 21 H 25 H 19 H Respiratory Effort Blood Pressure 93/67 Blood Pressure Mean 76 Pulse Ox Oxygen Delivery Method 10/14/23 20:00 10/14/23 20:10 10/14/23 20:15 Temperature Temperature Source Pulse Rate 131 H 128 H Respiratory Rate 21 H 24 H Respiratory Effort Blood Pressure 92/59 L 92/56 L Blood Pressure Mean 70 68 Pulse Ox Oxygen Delivery Method 10/14/23 20:27 10/14/23 20:30 10/14/23 20:45 Temperature Temperature Source Pulse Rate 125 H 117 H 120 H Respiratory Rate 19 H 17 18 Respiratory Effort Blood Pressure 99/63 107/52 L 96/55 L Blood Pressure Mean 76 68 66 Pulse Ox 93 100 Oxygen Delivery Method 10/14/23 21:00 10/14/23 21:00 10/14/23 21:15 Temperature Temperature Source Pulse Rate 124 H 133 H Respiratory Rate 20 H 20 H Respiratory Effort Blood Pressure 96/59 L 96/59 L 99/57 L Blood Pressure Mean 71 71 69 Pulse Ox 100 99 Oxygen Delivery Method 10/14/23 21:30 10/14/23 21:31 10/14/23 21:45 Temperature Temperature Source Pulse Rate 121 H 129 H 123 H Respiratory Rate 23 H 18 22 H Respiratory Effort Blood Pressure 102/62 96/53 L Blood Pressure Mean 75 67 Pulse Ox 99 98 98 Oxygen Delivery Method 10/14/23 22:00 10/14/23 22:15 Temperature Temperature Source Pulse Rate 127 H 140 H Respiratory Rate 26 H 20 H Respiratory Effort Blood Pressure 93/56 L 113/56 L Blood Pressure Mean 64 74 Pulse Ox 99 98 Oxygen Delivery Method [facility] <TONI Calles - Last Filed: 10/14/23 20:56> [facility] Narrative Medical decision making narrative: History gathered from: Patient and son Differential: A-fib RVR, medication noncompliance, CHF Consults: Outside facility cardiology and hospitalist Patient is a poor historian. He felt lightheaded and fell twice today. No syncope or chest pain. He reports some shortness of breath. He is in A-fib RVR at 120, BP 90s/70s, otherwise stable vital signs. Records show patient has a history of HTN, HLD, COPD, CHF with EF of 15 to 20%, A-fib RVR. He was recently admitted to [facility] on 08/11/2023 for new onset A-fib RVR. He is on metoprolol succinate, Eliquis, digoxin, Bumex, Aldactone and amiodarone. He supposed to wear LifeVest. He is not sure what medications he took this morning. Due to patient's CHF with reduced EF I ordered a 500 cc bolus. He is still in A-fib RVR around 115 but blood pressure is now 107/52. Other than A-fib his exam is benign. He appears euvolemic. Labs show white count of 14.6, hemoglobin 12.8, electrolytes are unremarkable, creatinine 1.34. Troponin is normal at 11. BNP 459. Digoxin level is low at 0.60. He states he is taking his medications but his brother was administering them and he does not know what he took this morning. The most recent records I could find were from [facility] and after speaking with the transfer line they state he was most recently admitted at [facility] in [place] for cardiology issues. I spoke with [facility] phthalic acid purifier, Dr. Nath, who advised giving IV digoxin 250 mcg and agreed with transferring the patient. Case was discussed with the hospitalist there, Dr. Eli Duff, who accepted the patient. He is awaiting a bed. 35 minutes of critical care time was consumed by evaluation patient, treatment and planning, discussions with consultants and reassessments. Lab Data Attestation: I reviewed the patient's lab results. Labs: Laboratory Results - last 24 hr 10/14/23 10/14/23 10/14/23 16:54 17:30 18:45 WBC 14.6 H RBC 4.51 L Hgb 12.8 L Hct 39.9 L MCV 88.5 MCH 28.4 MCHC 32.1 RDW Std Deviation 57.0 H RDW Coeff of Jesus 17.6 H Plt Count 248 MPV 11.1 Immature Gran % (Auto) 0.500 Neut % (Auto) 84.0 H Lymph % (Auto) 6.2 L [place] % (Auto) 9.1 Eos % (Auto) 0.0 Baso % (Auto) 0.2 Absolute Neuts (auto) 12.2 H Absolute Lymphs (auto) 0.91 Nucleated RBC % 0 Sodium 134 L Potassium 4.0 Chloride 101 Carbon Dioxide 25.0 Anion Gap 8 BUN 22 H Creatinine 1.34 H Estim Creat Clear Calc 55.23 Est GFR (MDRD) Af Amer 68 Est GFR (MDRD) Non-Af 56 L BUN/Creatinine Ratio 16.4 Glucose 95 Calcium 9.5 Troponin I High Sens 11 B-Natriuretic Peptide 459.7 H Urine Color Yellow Urine Clarity Clear Urine pH 6.5 Ur Specific [place] 1.010 Urine Protein 30 H Urine Glucose (UA) 1000 H Urine Ketones 15 H Urine Occult Blood 10 H Urine Nitrite Positive H Urine Bilirubin 3 H Urine Urobilinogen 1 H Ur Leukocyte Esterase 25 H Urine RBC 0 SEEN Urine WBC 0-5 SEEN Ur Squamous Epith Cells 0 SEEN Urine Bacteria 1+ Hyaline Casts 0-5 SEEN Urine Mucus 1+ Digoxin 0.60 L Ethyl Alcohol < 3.0 Radiography Diagnostic Testing: Clinical Impression(s) from Imaging Studies Chest X-Ray 10/14/23 17:54 IMPRESSION: Normal x-ray examination of the chest. Electronically Signed: Johan Humphrey MD at 18:34 EDT , ED attending interpretation of 1-view chest x-ray shows normal heart size, no acute infiltrate, edema, or effusion. EKG Initial EKG: Attestation: I personally reviewed and interpreted this EKG as follows: Comments: A-fib RVR at 135 bpm, no acute ischemic changes <Dr. Vinay Temple, DO - Last Filed: 10/14/23 22:49> [facility] MDM Narrative Medical decision making narrative: History gathered from: Patient and son Differential: A-fib RVR, medication noncompliance, CHF Consults: Outside facility cardiology and hospitalist Patient is a poor historian. He felt lightheaded and fell twice today. No syncope or chest pain. He reports some shortness of breath. He is in A-fib RVR at 120, BP 90s/70s, otherwise stable vital signs. Records show patient has a history of HTN, HLD, COPD, CHF with EF of 15 to 20%, A-fib RVR. He was recently admitted to [facility] on 08/11/2023 for new onset A-fib RVR. He is on metoprolol succinate, Eliquis, digoxin, Bumex, Aldactone and amiodarone. He supposed to wear LifeVest. He is not sure what medications he took this morning. Due to patient's CHF with reduced EF I ordered a 500 cc bolus. He is still in A-fib RVR around 115 but blood pressure is now 107/52. Other than A-fib his exam is benign. He appears euvolemic. Labs show white count of 14.6, hemoglobin 12.8, electrolytes are unremarkable, creatinine 1.34. Troponin is normal at 11. BNP 459. Digoxin level is low at 0.60. He states he is taking his medications but his brother was administering them and he does not know what he took this morning. The most recent records I could find were from [facility] and after speaking with the transfer line they state he was most recently admitted at [facility] in [place] for cardiology issues. I spoke with [facility] phthalic acid purifier, Dr. Nath, who advised giving IV digoxin 250 mcg and agreed with transferring the patient. Case was discussed with the hospitalist there, Dr. Eli Duff, who accepted the patient. He is awaiting a bed. This patient was seen with a PA/LEAVE COORDINATOR Individually assessed they patient including history and physical. I have reviewed everything on the chart that is available and agree with the documentation provided by the PA/LEAVE COORDINATOR including discussion about the assessment, treatment plan, discussion, and return precautions. Patient presenting with lightheadedness and fell twice today. Patient is supposed to be wearing a LifeVest but is not. He has multiple comorbidities and recently treated for Wernicke syndrome, A-fib, CHF at [facility]. Patient with an EF of 15% or so. Patient's blood work today was fairly stable however the patient's heart rate remained in the 120s and his blood pressure was soft in the 90s to 100 range. He was given a 500 cc bolus but given his EF we did not want to give him a lot of fluids. Did level was checked and is 0.6. We attempted to speak with [facility] initially because the patient said he had his care there however after speaking with the transfer line they state that he was at [facility] in [place] and then we were able to speak with them. Cardiology at that point recommended that we give to 50 mcg of digoxin and then will accept the patient in transfer. Patient is now stable and heart rate is stabilized. 35 minutes of critical care time was consumed by evaluation patient, treatment and planning, discussions with consultants and reassessments. Lab Data Labs: Laboratory Results - last 24 hr 10/14/23 10/14/23 10/14/23 16:54 17:30 18:45 WBC 14.6 H RBC 4.51 L Hgb 12.8 L Hct 39.9 L MCV 88.5 MCH 28.4 MCHC 32.1 RDW Std Deviation 57.0 H RDW Coeff of Jesus 17.6 H Plt Count 248 MPV 11.1 Immature Gran % (Auto) 0.500 Neut % (Auto) 84.0 H Lymph % (Auto) 6.2 L [place] % (Auto) 9.1 Eos % (Auto) 0.0 Baso % (Auto) 0.2 Absolute Neuts (auto) 12.2 H Absolute Lymphs (auto) 0.91 Nucleated RBC % 0 Sodium 134 L Potassium 4.0 Chloride 101 Carbon Dioxide 25.0 Anion Gap 8 BUN 22 H Creatinine 1.34 H Estim Creat Clear Calc 55.23 Est GFR (MDRD) Af Amer 68 Est GFR (MDRD) Non-Af 56 L BUN/Creatinine Ratio 16.4 Glucose 95 Calcium 9.5 Troponin I High Sens 11 B-Natriuretic Peptide 459.7 H Urine Color Yellow Urine Clarity Clear Urine pH 6.5 Ur Specific [place] 1.010 Urine Protein 30 H Urine Glucose (UA) 1000 H Urine Ketones 15 H Urine Occult Blood 10 H Urine Nitrite Positive H Urine Bilirubin 3 H Urine Urobilinogen 1 H Ur Leukocyte Esterase 25 H Urine RBC 0 SEEN Urine WBC 0-5 SEEN Ur Squamous Epith Cells 0 SEEN Urine Bacteria 1+ Hyaline Casts 0-5 SEEN Urine Mucus 1+ Digoxin 0.60 L Ethyl Alcohol < 3.0 Radiography Diagnostic Testing: Clinical Impression(s) from Imaging Studies Chest X-Ray 10/14/23 17:54 IMPRESSION: Normal x-ray examination of the chest. Electronically Signed: Johan Humphrey MD at 18:34 EDT , Discharge Plan Triage Chief Complaint: Palpitations ED Midlevel Provider: Louann Kennedy ED Provider: Vinay Temple Dx/Rx/DC Orders Clinical Impression: Acute hypotension, Pre-syncope, Falls, Atrial fibrillation with RVR Prescriptions: No Action melatonin 5 mg tablet 10 mg PO QHS thiamine HCl (vitamin B1) [Vitamin B-1] 100 mg Tablet 100 mg PO DAILYCM Qty: 30 2RF nicotine 21 mg/24 hr Patch 24 Hour 21 mg transdermal DAILY Qty: 21 0RF folic acid 1 mg Tablet 1 mg PO DAILY@0800 Qty: 30 3RF Ibuprofen PM 200-38 mg tablet 2 cap PO QHS PRN (Reason: PAIN) 3 Days Qty: 0 0RF losartan 50 mg tablet 50 mg PO DAILY bumetanide 1 mg tablet 1 mg PO BID amiodarone 100 mg tablet 200 mg PO DAILY Eliquis 5 mg tablet 5 mg PO BID Jardiance 10 mg tablet 10 mg PO DAILY Entresto 24-26 mg tablet 1 tab PO BID pyridoxine (vitamin B6) [Vitamin B-6] 25 mg tablet 25 mg PO DAILY cyanocobalamin (vitamin B-12) 1,000 mcg tablet 500 mcg PO DAILY spironolactone 25 mg tablet 25 mg PO DAILY digoxin 125 mcg (0.125 mg) tablet 62.5 mcg PO DAILY fluticasone propion-salmeterol 100-50 mcg/dose blister with device 1 ea inhalation DAILY albuterol sulfate 90 mcg/actuation HFA aerosol inhaler 1 puff inhalation Q4H PRN PRN (Reason: dyspnea) mirtazapine 7.5 mg tablet 7.5 mg PO QHS cholecalciferol (vitamin D3) 25 mcg (1,000 unit) tablet 25 mcg PO DAILY Antacid Calcium 215 mg calcium (500 mg) tablet,chewable 537.5 mg PO DAILY Primary Care Provider: Rena Springer Referrals: Rena Springer MD [Primary Care Provider] -
[2023-10-14 17:39] LABS: Anion Gap 8 (5-15); BUN 22 mg/dL (7-18); BUN/Creat Ratio 16.4 RATIO (10-20); Calcium,Total 9.5 mg/dL (8.5-10.1); Chloride 101 mmol/L (98-107); Creatinine, Serum 1.34 mg/dL (0.70-1.30); EST Glomerular Filtration Rate 56 mL/min (>60); Est Glom Filt Rate - Afr Amer 68 mL/min (>60); Estimated Creatinine Clearance 55.23 ml/min; Glucose 95 mg/dL (74-106); Sodium Level 134 mmol/L (136-145); Troponin-I HS 11 pg/mL (3.0-78.0)
--- NOTE | 2023-10-14 17:54 | RAD_ITS ---
STUDY: X-RAY CHEST REASON FOR EXAM: Male, 68 years old. dyspnea TECHNIQUE: Single AP portable view of the chest. COMPARISON: 05/16/2023 FINDINGS: The lungs are clear and expanded. There is no demonstrated pleural abnormality. Normal size heart. Normal mediastinum and yan. Normal visualized pulmonary arteries. Normal visualized aortic arch and descending thoracic aorta. Normal visualized thoracic spine. Normal visualized ribs, clavicles, and shoulders. There is no demonstrated abnormality of the visualized soft tissue structures of the upper abdomen. RAD/Chest 1 View (Portable) IMPRESSION: Normal x-ray examination of the chest. Electronically Signed: Johan Humphrey MD at 18:34 EDT ,
[2023-10-14 17:56] LABS: BNP,B-Type NATRIURETIC PEPTIDE 459.7 pg/mL (0-100)
--- NOTE | 2023-10-14 17:57 | EKG12_ITS ---
Test Reason : SYNCOPE Blood Pressure : / mmHG Vent. Rate : 135 BPM Atrial Rate : 000 BPM P-R Int : 000 ms QRS Dur : 086 ms QT Int : 332 ms P-R-T Axes : 000 024 049 degrees QTc Int : 498 ms Atrial fibrillation with rapid ventricular response Abnormal ECG Confirmed by LOVELY BERNAL, MARTITA ([id number]), content editor LOUIS IZQUIERDO ([id number]) on 10/16/2023 10:49:04 AM Referred By: VAL/SEVERO Confirmed By:MARTITA MURRY MD
[2023-10-14] MEDS: 0.9% Normal Saline (500mL Bag) 500 ML 999 ML IV (17:58)
[2023-10-14 18:01] LABS: Alcohol, Blood (Medical)-Serum < 3.0 mg/dL
[2023-10-14 18:51] LABS: Red Blood Cells-Urine 0 SEEN /hpf (0-5); Squamous Epithelial Cells - UA 0 SEEN /hpf (0-5)
[2023-10-14 18:54] LABS: Color, Urine Yellow (Yellow); Glucose, Dipstick 1000 mg/dl (Normal); Ketone-Dipstick 15 mg/dl (Negative); Leukocyte Esterase-Dipstick 25 /ul (Negative); Nitrite-Dipstick Positive (Negative); Occult Blood-Urine 10 /ul (Negative); Protein-Dipstick 30 mg/dl (Negative); Urine Clarity Clear (Clear); Urine Urobilinogen 1 mg/dl (Normal); Urine pH 6.5 (5.0 - 8.0)
[2023-10-14 18:58] LABS: Urine Bilirubin Dipstick 3 mg/dL (Negative)
[2023-10-14 19:01] LABS: Bacteria 1+ /hpf (None Seen); Mucous, Urine 1+ /hpf (<or=2+); White Blood Cells 0-5 SEEN /hpf (0-5)
[2023-10-14 19:02] LABS: Hyaline Cast 0-5 SEEN /lpf (0-5)
[2023-10-14] MEDS: Digoxin 250 MCG/ML Ampul IV (20:30)
[2023-10-15] VITALS (67 sets, daily range): BP systolic 69–111; BP diastolic 40–89; PULSE 88–150; RESP 16–118; TEMP 36.6–37.2; O2SAT 95–100; BMI 22.7
[2023-10-15] MEDS: Acetaminophen 325 MG Tablet 650 MG PO ×2 (02:08→20:45)
[2023-10-15] MEDS: MELATONIN 10 MG TABLET PO ×3 (02:09→20:46)
[2023-10-15] MEDS: Digoxin 250 MCG/ML Ampul IV (03:03)
--- NOTE | 2023-10-15 04:16 | ED.RN ---
PT ACCEPTED AT [facility] IN [place] APPROX 1999. WAITING BED. CALLED [id number] FOR UPDATE, SAID PT IS DEPENDANT ON BED FROM DISCHARGES PENDING IN AM.
--- NOTE | 2023-10-15 06:57 | ED.RN ---
pt up dated that he is waiting for discharges from the accepting hospital.
--- NOTE | 2023-10-15 07:35 | NURSING ---
CALLED [facility]. TALKED TO JAZZ. NO BED YET.
--- NOTE | 2023-10-15 11:35 | NURSING ---
CALLED [facility], TALKED TO FREDRICK. NO BED YET, DISCHARGE DEPENDENT
[2023-10-15] MEDS: Amiodarone 200 MG Tablet PO ×2 (11:44→20:45)
[2023-10-15] MEDS: APIXABAN 5 MG TABLET PO ×2 (11:44→20:45)
[2023-10-15] MEDS: Calcium Carbonate 500 MG Tablet PO (11:44)
--- NOTE | 2023-10-15 13:23 | PCM.HP.STD ---
HPI - General General Date of Admission: 10/15/23 Date of Service: 10/15/23 Chief Complaint: Falls with presyncopal symptoms HPI Narrative MIRNA JEFFRIES, is a 68 M who presented to [facility] ED on 10/14/2023 after having 2 falls at home with presyncopal symptoms. Patient's medical history is significant for recently diagnosed nonischemic cardiomyopathy with EF 15 to 20%, A-fib with RVR, alcohol abuse with concern for Wernicke's encephalopathy, previous behavioral issues and combativeness with staff, anxiety/depression/insomnia, COPD and tobacco abuse. Was recently hospitalized at [facility] in [place] from 09/08-09/14/2023. Was also hospitalized at [facility] in July for about 1 week. At [facility], he was found to have new onset Afib with RVR, and his EF was newly reduced to 26% with global hypokinesis. Cardiology followed at [facility] and he was started on anticoagulation and several other cardiac medications. He was discharged to SNF after that hospitalization. He then presented to [facility] from SNF with altered mental status. His mentation improved fairly quickly, was suspected to be multifactorial in setting of polypharmacy and mild respiratory failure in setting of bilateral pleural effusions. He was in A-fib with RVR during that admission as well, and repeat echo showed an EF of 15 to 20%. Cardiology followed there and his medications were adjusted again at that time. Patient was discharged home from that SNF 3 days ago. States has been taking all medications as prescribed. He denies any alcohol use since returning home. States that he has been eating and drinking fairly well. States that yesterday he had 2 falls at home and noticed that he was more lightheaded and dizzy when up and walking around. States that he has been urinating very frequently since being started on Bumex. States the falls did not happen while he was on the toilet, but rather happened while he was up and walking around. He denies fully passing out with these falls. Denies hitting his head. In the ED, patient was found to be in A-fib with RVR and had fairly soft blood pressures. He was given a 500 cc bolus with mild improvement in his blood pressures. Given his significant heart failure and A-fib with RVR that has been difficult to control, our rn maternal child recommended transfer to [facility] for further management. Unfortunately, patient was unable to get a bed quickly and on 10/14 the hospitalist was contacted to admit the patient. Patient seen at bedside in the ED. Sitting up comfortably in bed, conversing normally, no acute distress. He is making appropriate eye contact with me and answering all questions appropriately. He did become tearful at times when talking about his social history that led to increasing alcohol use in the past few years, but otherwise remained calm. He denied any acute pain or discomfort currently. Denied any chest pain, shortness of breath at rest, fevers or chills, abdominal pain or discomfort. Patient states he had just got up to go to the bathroom about 10 minutes prior to my arrival and did have mild lightheadedness and dizziness with getting up and walking around. Otherwise denies any other acute concerns at this time. Vitals in ED notable for A-fib with RVR with heart rate 110s to 130s, blood pressure borderline in the 80s to 90 systolic with MAPs around 65, breathing comfortably on room air with good O2 saturations, afebrile. Labs notable for mild leukocytosis, creatinine 1.35 (at baseline), BMP otherwise normal, BNP 459, digoxin level 0.60 (slightly low), alcohol level 0. Chest x-ray nonacute. Patient will be admitted to the ICU for further management. [facility] Medical History Acute blood loss anemia Alcohol withdrawal Anxiety Anxiety and depression At high risk for malnutrition Behavior concern in adult Chewing tobacco use COPD (chronic obstructive pulmonary disease) Depression ETOH abuse GI bleed History of cancer tonsil Hypertension Hyponatremia Irregular heart beat Smoker Substance abuse Home Medications folic acid 1 mg tablet 1 mg PO DAILY@0800 #30 tabs 05/30/23 [Rx Last Taken Unknown] thiamine HCl (vitamin B1) 100 mg tablet (Vitamin B-1) 100 mg PO DAILYCM #30 tabs 05/30/23 [Rx Last Taken Unknown] albuterol sulfate 90 mcg/actuation aerosol inhaler 1 puff inhalation Q4H PRN PRN dyspnea 10/14/23 [History Last Taken Unknown] amiodarone 100 mg tablet 200 mg PO DAILY 10/14/23 [History Last Taken Unknown] apixaban 5 mg tablet (Eliquis) 5 mg PO BID 10/14/23 [History Last Taken Unknown] bumetanide 1 mg tablet 1 mg PO BID 10/14/23 [History Last Taken Unknown] calcium carbonate 215 mg calcium (500 mg) chewable tablet (Antacid Calcium) 537.5 mg PO DAILY 10/14/23 [History Last Taken Unknown] cholecalciferol (vitamin D3) 25 mcg (1,000 unit) tablet 25 mcg PO DAILY 10/14/23 [History Last Taken Unknown] cyanocobalamin (vitamin B-12) 1,000 mcg tablet 500 mcg PO DAILY 10/14/23 [History Last Taken Unknown] digoxin 125 mcg (0.125 mg) tablet 62.5 mcg PO DAILY 10/14/23 [History Last Taken Unknown] empagliflozin 10 mg tablet (Jardiance) 10 mg PO DAILY diabetes mellitus 10/14/23 [History Last Taken Unknown] fluticasone 100 mcg-salmeterol 50 mcg/dose blistr powdr for inhalation 1 ea inhalation DAILY 10/14/23 [History Last Taken Unknown] losartan 50 mg tablet 50 mg PO DAILY blood pressure 10/14/23 [History Last Taken Unknown] mirtazapine 7.5 mg tablet 7.5 mg PO QHS depressive disorder 10/14/23 [History Last Taken Unknown] pyridoxine (vitamin B6) 25 mg tablet (Vitamin B-6) 25 mg PO DAILY anemia 10/14/23 [History Last Taken Unknown] sacubitril 24 mg-valsartan 26 mg tablet (Entresto) 1 tab PO BID 10/14/23 [History Last Taken Unknown] spironolactone 25 mg tablet 25 mg PO DAILY blood pressure 10/14/23 [History Last Taken Unknown] benzocaine 15 mg-menthol 2.6 mg lozenges (Cepacol Sore Throat (benzocaine-menthol)) 1 forest mucous membrane Q2H PRN sore throat 10/15/23 [History Last Taken Unknown] budesonide-formoterol HFA 160 mcg-4.5 mcg/actuation aerosol inhaler (Symbicort) 1 inh inhalation BID SHORTNESS OF BREATH 10/15/23 [History Last Taken Unknown] melatonin 3 mg tablet 9 mg PO QHS PRN sleep 10/15/23 [History Last Taken Unknown] multivitamin with minerals-ferrous sulfate 4.5 mg iron tablet (One Daily Multivitamins with Minerals) 1 tab PO DAILY SUPPLEMENT 10/15/23 [History Last Taken Unknown] Allergy/AdvReac Type Severity Reaction Status Date / Time poison mike extract Allergy Mild RASH Verified 10/14/23 16:46 Family History Mother Diabetes Father Diabetes Brother Colon cancer Surgical History History of tonsillectomy and adenoidectomy Social History household members: other details: Lives with his son. Smoking Status: Former smoker Smokeless tobacco user: chewing tobacco and other alcohol intake: current alcohol intake frequency: 3 or more drinks per day details: 8-10 beers daily coupled with hard liquor. substance use type: does not use ROS Constitutional Constitutional: Denies chills, fatigue, fever(s) or weakness Eyes Eyes: Denies change in vision Cardiovascular Cardiovascular: Reports lightheadedness; Denies chest pain, dyspnea on exertion, edema, orthopnea, palpitations, rapid heart rate or syncope Respiratory/Chest Respiratory/Chest: Denies cough, shortness of breath at rest, shortness of breath with exertion or wheezing Gastrointestinal Gastrointestinal: Denies abdominal pain Genitourinary Genitourinary: Denies dysuria Musculoskeletal Musculoskeletal: Denies arthralgias or back pain Neurologic Neurologic: Reports dizziness; Denies headache(s) or tremor(s) Vital Signs Vital Signs Vital Signs: 10/14/23 16:39 10/14/23 16:57 10/14/23 17:50 Temperature 98.6 F Temperature Source Oral Pulse Rate 150 H 123 H Respiratory Rate 22 H 16 Respiratory Effort Normal Blood Pressure 93/71 80/48 L Blood Pressure Mean 78 58 Pulse Ox 100 95 Oxygen Delivery Method Room Air Room Air 10/14/23 18:00 10/14/23 17:08 10/14/23 17:10 Temperature Temperature Source Pulse Rate 128 H 141 H 128 H Respiratory Rate 16 21 H 21 H Respiratory Effort Blood Pressure 103/73 Blood Pressure Mean 83 Pulse Ox 94 99 100 Oxygen Delivery Method Room Air 10/14/23 17:15 10/14/23 17:20 10/14/23 17:30 Temperature Temperature Source Pulse Rate 130 H 139 H 121 H Respiratory Rate 20 H 20 H 18 Respiratory Effort Blood Pressure 84/54 L 91/53 L Blood Pressure Mean 61 64 Pulse Ox 100 99 98 Oxygen Delivery Method 10/14/23 17:40 10/14/23 17:45 10/14/23 17:49 Temperature Temperature Source Pulse Rate 123 H Respiratory Rate 20 H Respiratory Effort Blood Pressure 80/59 L 80/42 L Blood Pressure Mean 68 56 Pulse Ox 99 Oxygen Delivery Method 10/14/23 17:50 10/14/23 18:00 10/14/23 18:10 Temperature Temperature Source Pulse Rate 142 H 120 H Respiratory Rate 24 H 16 Respiratory Effort Blood Pressure 103/73 Blood Pressure Mean 82 Pulse Ox 100 Oxygen Delivery Method 10/14/23 18:15 10/14/23 18:20 10/14/23 18:28 Temperature Temperature Source Pulse Rate 127 H 135 H 129 H Respiratory Rate 20 H 16 24 H Respiratory Effort Blood Pressure 76/59 L 102/63 Blood Pressure Mean 67 74 Pulse Ox 99 Oxygen Delivery Method 10/14/23 18:30 10/14/23 18:40 10/14/23 18:45 Temperature Temperature Source Pulse Rate 123 H 122 H Respiratory Rate 18 34 H Respiratory Effort Blood Pressure 104/57 L 97/70 Blood Pressure Mean 70 79 Pulse Ox Oxygen Delivery Method 10/14/23 18:50 10/14/23 19:00 10/14/23 19:10 Temperature Temperature Source Pulse Rate 130 H 123 H 132 H Respiratory Rate 17 17 16 Respiratory Effort Blood Pressure 93/68 Blood Pressure Mean 78 Pulse Ox Oxygen Delivery Method 10/14/23 19:15 10/14/23 19:20 10/14/23 19:30 Temperature Temperature Source Pulse Rate 128 H 124 H 141 H Respiratory Rate 19 H 18 22 H Respiratory Effort Blood Pressure 92/59 L 99/67 Blood Pressure Mean 70 78 Pulse Ox Oxygen Delivery Method 10/14/23 19:40 10/14/23 19:45 10/14/23 19:50 Temperature Temperature Source Pulse Rate 132 H 128 H 128 H Respiratory Rate 21 H 25 H 19 H Respiratory Effort Blood Pressure 93/67 Blood Pressure Mean 76 Pulse Ox Oxygen Delivery Method 10/14/23 20:00 10/14/23 20:10 10/14/23 20:15 Temperature Temperature Source Pulse Rate 131 H 128 H Respiratory Rate 21 H 24 H Respiratory Effort Blood Pressure 92/59 L 92/56 L Blood Pressure Mean 70 68 Pulse Ox Oxygen Delivery Method 10/14/23 20:27 10/14/23 20:30 10/14/23 20:45 Temperature Temperature Source Pulse Rate 125 H 117 H 120 H Respiratory Rate 19 H 17 18 Respiratory Effort Blood Pressure 99/63 107/52 L 96/55 L Blood Pressure Mean 76 68 66 Pulse Ox 93 100 Oxygen Delivery Method 10/14/23 21:00 10/14/23 21:00 10/14/23 21:15 Temperature Temperature Source Pulse Rate 124 H 133 H Respiratory Rate 20 H 20 H Respiratory Effort Blood Pressure 96/59 L 96/59 L 99/57 L Blood Pressure Mean 71 71 69 Pulse Ox 100 99 Oxygen Delivery Method 10/14/23 21:30 10/14/23 21:31 10/14/23 21:45 Temperature Temperature Source Pulse Rate 121 H 129 H 123 H Respiratory Rate 23 H 18 22 H Respiratory Effort Blood Pressure 102/62 96/53 L Blood Pressure Mean 75 67 Pulse Ox 99 98 98 Oxygen Delivery Method 10/14/23 22:00 10/14/23 22:15 10/14/23 23:10 Temperature Temperature Source Pulse Rate 127 H 140 H 58 L Respiratory Rate 26 H 20 H 16 Respiratory Effort Blood Pressure 93/56 L 113/56 L 116/67 Blood Pressure Mean 64 74 83 Pulse Ox 99 98 100 Oxygen Delivery Method 10/15/23 00:00 10/15/23 01:00 10/15/23 02:00 Temperature Temperature Source Pulse Rate 88 110 H 120 H Respiratory Rate 16 18 20 H Respiratory Effort Blood Pressure 105/62 103/69 103/64 Blood Pressure Mean 76 80 77 Pulse Ox 99 98 98 Oxygen Delivery Method Room Air Room Air 10/15/23 03:00 10/14/23 22:30 10/14/23 22:45 Temperature 98.0 F Temperature Source Temporal Pulse Rate 142 H 135 H 133 H Respiratory Rate 20 H 26 H 17 Respiratory Effort Blood Pressure 91/60 117/68 Blood Pressure Mean 70 83 Pulse Ox 96 100 98 Oxygen Delivery Method Room Air 10/14/23 22:46 10/14/23 23:00 10/14/23 23:01 Temperature Temperature Source Pulse Rate 137 H Respiratory Rate 14 Respiratory Effort Blood Pressure 98/54 L 116/67 Blood Pressure Mean 69 81 Pulse Ox 99 100 Oxygen Delivery Method 10/14/23 23:15 10/14/23 23:30 10/14/23 23:45 Temperature Temperature Source Pulse Rate Respiratory Rate Respiratory Effort Blood Pressure 103/62 122/86 H 107/62 Blood Pressure Mean 73 99 75 Pulse Ox 95 100 Oxygen Delivery Method 10/15/23 00:00 10/15/23 00:15 10/15/23 00:30 Temperature Temperature Source Pulse Rate Respiratory Rate Respiratory Effort Blood Pressure 85/67 L 97/70 87/40 L Blood Pressure Mean 74 80 54 Pulse Ox 98 98 97 Oxygen Delivery Method 10/15/23 00:45 10/15/23 01:00 10/15/23 01:15 Temperature Temperature Source Pulse Rate Respiratory Rate Respiratory Effort Blood Pressure 105/62 103/89 H 98/48 L Blood Pressure Mean 75 94 64 Pulse Ox 98 98 97 Oxygen Delivery Method 10/15/23 01:30 10/15/23 01:41 10/15/23 01:45 Temperature Temperature Source Pulse Rate 109 H Respiratory Rate Respiratory Effort Blood Pressure 111/70 Blood Pressure Mean 81 Pulse Ox 98 100 98 Oxygen Delivery Method Room Air 10/15/23 02:00 10/15/23 02:11 10/15/23 02:15 Temperature Temperature Source Pulse Rate 133 H 130 H Respiratory Rate 22 H 19 H Respiratory Effort Blood Pressure 103/64 103/72 Blood Pressure Mean 76 82 Pulse Ox 97 99 Oxygen Delivery Method 10/15/23 02:30 10/15/23 02:45 10/15/23 02:52 Temperature Temperature Source Pulse Rate 150 H 138 H 127 H Respiratory Rate 22 H 19 H Respiratory Effort Blood Pressure 92/49 L 74/57 L 74/54 L Blood Pressure Mean 61 63 62 Pulse Ox 97 95 96 Oxygen Delivery Method 10/15/23 02:54 10/15/23 03:00 10/15/23 03:15 Temperature Temperature Source Pulse Rate 145 H 136 H 135 H Respiratory Rate 21 H 18 20 H Respiratory Effort Blood Pressure 91/60 74/55 L 90/49 L Blood Pressure Mean 71 62 63 Pulse Ox 96 96 96 Oxygen Delivery Method 10/15/23 03:30 10/15/23 03:45 10/15/23 04:00 Temperature Temperature Source Pulse Rate 114 H Respiratory Rate 21 H Respiratory Effort Blood Pressure 81/49 L 91/54 L 88/59 L Blood Pressure Mean 59 63 67 Pulse Ox 96 Oxygen Delivery Method 10/15/23 05:00 10/15/23 06:00 10/15/23 07:00 Temperature 98.0 F Temperature Source Temporal Pulse Rate 111 H 108 H 112 H Respiratory Rate 118 H 22 H 21 H Respiratory Effort Blood Pressure 84/49 L 85/59 L 83/60 L Blood Pressure Mean 60 67 67 Pulse Ox 98 98 96 Oxygen Delivery Method Room Air Room Air Room Air 10/15/23 04:15 10/15/23 04:30 10/15/23 04:45 Temperature Temperature Source Pulse Rate 113 H 107 H 115 H Respiratory Rate 20 H 22 H 20 H Respiratory Effort Blood Pressure 86/57 L 86/59 L 77/51 L Blood Pressure Mean 63 69 61 Pulse Ox 97 97 97 Oxygen Delivery Method 10/15/23 04:56 10/15/23 05:00 10/15/23 05:15 Temperature Temperature Source Pulse Rate 108 H 111 H 106 H Respiratory Rate 22 H Respiratory Effort Blood Pressure 85/51 L 84/49 L 96/53 L Blood Pressure Mean 61 59 65 Pulse Ox 97 97 98 Oxygen Delivery Method 10/15/23 05:30 10/15/23 05:45 10/15/23 06:00 Temperature Temperature Source Pulse Rate 114 H 97 Respiratory Rate 19 H 20 H Respiratory Effort Blood Pressure 98/61 83/61 L 69/46 L Blood Pressure Mean 69 69 56 Pulse Ox 98 97 98 Oxygen Delivery Method 10/15/23 06:05 10/15/23 06:15 10/15/23 06:30 Temperature Temperature Source Pulse Rate 109 H 106 H 106 H Respiratory Rate 22 H 20 H 20 H Respiratory Effort Blood Pressure 85/59 L 78/54 L 104/72 Blood Pressure Mean 69 63 83 Pulse Ox 95 97 95 Oxygen Delivery Method 10/15/23 06:45 10/15/23 07:00 10/15/23 07:15 Temperature Temperature Source Pulse Rate 98 101 H Respiratory Rate 17 20 H Respiratory Effort Blood Pressure 85/61 L 83/60 L 90/55 L Blood Pressure Mean 71 66 66 Pulse Ox 97 97 Oxygen Delivery Method 10/15/23 07:30 10/15/23 07:45 10/15/23 08:00 Temperature Temperature Source Pulse Rate 102 H 111 H 105 H Respiratory Rate 20 H 21 H 18 Respiratory Effort Blood Pressure 91/56 L 86/60 L 92/52 L Blood Pressure Mean 68 68 61 Pulse Ox 97 98 98 Oxygen Delivery Method 10/15/23 08:15 10/15/23 08:30 10/15/23 08:31 Temperature Temperature Source Pulse Rate 107 H 103 H Respiratory Rate 22 H 21 H Respiratory Effort Blood Pressure 87/50 L 79/58 L Blood Pressure Mean 60 66 Pulse Ox 97 98 Oxygen Delivery Method 10/15/23 08:45 10/15/23 09:00 10/15/23 09:12 Temperature Temperature Source Pulse Rate 105 H 105 H 101 H Respiratory Rate 21 H 22 H 21 H Respiratory Effort Blood Pressure 105/57 L 83/67 L 96/53 L Blood Pressure Mean 69 75 66 Pulse Ox 99 97 97 Oxygen Delivery Method 10/15/23 09:15 10/15/23 09:30 10/15/23 09:45 Temperature Temperature Source Pulse Rate 113 H 110 H Respiratory Rate 23 H 19 H Respiratory Effort Blood Pressure 108/58 L 105/60 Blood Pressure Mean 66 69 Pulse Ox Oxygen Delivery Method 10/15/23 10:00 10/15/23 10:41 10/15/23 11:30 Temperature Temperature Source Pulse Rate 121 H 117 H Respiratory Rate 18 24 H Respiratory Effort Blood Pressure 80/64 L 94/65 79/60 L Blood Pressure Mean 69 74 69 Pulse Ox 99 98 99 Oxygen Delivery Method Room Air 10/15/23 12:00 10/15/23 12:45 Temperature 98.9 F Temperature Source Oral Pulse Rate 115 H 117 H Respiratory Rate 23 H 22 H Respiratory Effort Blood Pressure 104/55 L Blood Pressure Mean 71 Pulse Ox 96 97 Oxygen Delivery Method Room Air Weight Weight: 76.2 kg Body Mass Index (BMI) 24.0 Physical Exam Const alert, oriented x3, no apparent distress and average body habitus Constitutional Narrative: Elderly male, disheveled appearing, sitting up comfortably in bed and answering questions appropriately but does appear somewhat emotionally labile, otherwise in no acute distress. General Appearance: cooperative and comfortable HEENT normocephalic, head/scalp atraumatic, hearing grossly normal bilaterally and nasal mucous membranes and turbinates normal Eyes PERRL, EOMs intact bilaterally and conjunctivae normal Neck full ROM and no JVD Chest inspection of chest normal Resp normal respiratory effort, normal air movement, no use of accessory muscles and clear to auscultation bilaterally Resp Narrative: Breathing comfortably on room air, good air movement bilaterally, no wheezing or crackles noted. Cardio no murmurs and peripheral pulses 2+ throughout Cardio Narrative: A-fib with RVR. GI normal to inspection, nondistended, normoactive bowel sounds, soft to palpation, non-tender and non-distended Back/Spine normal ROM Extremity normal to inspection, full ROM and no pedal edema Skin no rashes or lesions noted Neuro moves all extremities and no focal motor deficits Speech: speech normal Psych mental status grossly normal Mood & Affect: anxious Results Lab / Micro Data 10/14/23 16:54 10/14/23 16:54 Labs: Laboratory Results - last 24 hr 10/14/23 16:54: WBC 14.6 H, RBC 4.51 L, Hgb 12.8 L, Hct 39.9 L, MCV 88.5, MCH 28.4, MCHC 32.1, RDW Std Deviation 57.0 H, RDW Coeff of Jesus 17.6 H, Plt Count 248, MPV 11.1, Immature Gran % (Auto) 0.500, Neut % (Auto) 84.0 H, Lymph % (Auto) 6.2 L, Drew % (Auto) 9.1, Eos % (Auto) 0.0, Baso % (Auto) 0.2, Absolute Neuts (auto) 12.2 H, Absolute Lymphs (auto) 0.91, Nucleated RBC % 0, Sodium 134 L, Potassium 4.0, Chloride 101, Carbon Dioxide 25.0, Anion Gap 8, BUN 22 H, Creatinine 1.34 H, Estim Creat Clear Calc 55.23, Est GFR (MDRD) Af Amer 68, Est GFR (MDRD) Non-Af 56 L, BUN/Creatinine Ratio 16.4, Glucose 95, Calcium 9.5, Troponin I High Sens 11, B-Natriuretic Peptide 459.7 H 10/14/23 17:30: Digoxin 0.60 L, Ethyl Alcohol < 3.0 10/14/23 18:45: Urine Color Yellow, Urine Clarity Clear, Urine pH 6.5, Ur Specific Alligator 1.010, Urine Protein 30 H, Urine Glucose (UA) 1000 H, Urine Ketones 15 H, Urine Occult Blood 10 H, Urine Nitrite Positive H, Urine Bilirubin 3 H, Urine Urobilinogen 1 H, Ur Leukocyte Esterase 25 H, Urine RBC 0 SEEN, Urine WBC 0-5 SEEN, Ur Squamous Epith Cells 0 SEEN, Urine Bacteria 1+, Hyaline Casts 0-5 SEEN, Urine Mucus 1+ Imaging Radiology Impression Chest X-Ray 10/14/23 17:54 IMPRESSION: Normal x-ray examination of the chest. Electronically Signed: Johan Humphrey MD at 18:34 EDT , Assessment & Plan Assessment/Plan (1) Atrial fibrillation with RVR: (2) Falls: (3) Pre-syncope: (4) Acute hypotension: (5) Debility: (6) Heart failure: PLAN: Plan Patient is a 68-year-old male who presented to [facility] ED on 10/15/2023 with falls at home with presyncopal symptoms. 1. Falls with presyncopal symptoms, Hypotension ? Most likely secondary to low BPs/orthostatic hypotension from overdiuresis in setting of extensive medication regimen for new heart failure. ? Given 500 cc bolus in ED with only mild improvement in BP, MAP has consistently been ~60-70. ? Admit under inpatient status to the ICU. Gave another 500 cc fluid bolus just prior to patient moving over to the ICU. Cardiology consulted. Recommend holding on further fluids for now, can use low-dose Levophed through peripheral IV if needed. Continue home amiodarone and digoxin for rate control, otherwise holding other home heart failure medications including Bumex, empagliflozin, losartan, Entresto, spironolactone. Continuous cardiac monitoring. 2. A-fib with RVR ? Known history, recently diagnosed in July. Last saw cardiology during hospital admission in [place] in August. Current meds are amiodarone 200 mg daily, digoxin 62.5 mg daily, Eliquis 5 mg twice daily. ? In A-fib in ED here, rates ranging from 110s to 130s. Digoxin level slightly below therapeutic range in ED. Given 1 dose of IV digoxin and home amiodarone in ED with minimal change in heart rate. ? Cardiology consulted as above. Continue home medications. Continuous cardiac monitoring. Maintain potassium > 4, magnesium > 2. 3. HFrEF, nonischemic cardiomyopathy ? Also diagnosed in July, see HPI for further details. Last echo in August showed an EF of 15 to 20%. Last saw cardiology during that admission as noted above. Home regimen prior to admission here was Bumex 1 mg twice daily, empagliflozin 10 mg daily, losartan 50 mg daily, Entresto 24-26 mg twice daily, spironolactone 25 mg daily. ? Cardiology consulted as above. Holding home medications. 4. Mild leukocytosis ? WBC count 14.6 on admit. Low concern for active infection, follow-up a.m. CBC. 5. History of alcohol abuse with suspected Wernicke's encephalopathy ? Reported last alcohol use was prior to his July admission to [facility]. Alcohol level of 0 on admit. Denies any withdrawal symptoms. ? Alert and oriented in the ED, answering questions appropriately. ? Continue home folate and thiamine. No need for CIWA protocol at this time. 6. Debility ? In setting of multiple recent hospitalizations with behavioral issues also contributing. Did require SNF placement after his recent hospitalizations in July and August. ? PT/OT/case management consulted. Chronic medical conditions: ? CKD stage III: Creatinine 1.35 on admit, at baseline, stable. ? Anxiety/depression/insomnia: Continue home melatonin, mirtazapine. ? COPD: Stable on room air, no concern for exacerbation. Continue home inhalers. ? Tobacco use: Nicotine replacement therapy available as needed. DVT prophylaxis: Glendyquis CODE STATUS: Full code, verified Expected disposition: Transfer to [facility] when bed is available Total clinical time spent by myself addressing the patient's medical issues, reviewing all the data, and collaborating with patient's care team: 75 minutes. Charges/Coding Visit Charges Inpatient E&M: 53765 Init Hosp
--- NOTE | 2023-10-15 13:33 | NURSING ---
PCU MOSTELLER AFIB RVR, HYPOTENSION, FALLS
[2023-10-15] MEDS: 0.9% Normal Saline (500mL Bag) 500 ML 999 ML IV (14:15)
--- NOTE | 2023-10-15 15:58 | CASEMGMT ---
SHAYNA received a phone call from Kerry with [employer]. SHAYNA let Kerry know patient is in ICU awaiting transfer to [facility] in [place]. Nika MUIR
[2023-10-15 16:59] LABS: Magnesium 2.1 mg/dL (1.6-2.6)
--- NOTE | 2023-10-15 18:15 | PCM.CONS.C ---
Assessment & Plan Assessment/Plan (1) Atrial fibrillation with RVR: PLAN: He does present with atrial fibrillation with rapid ventricular response rate which appears to be persistent at this time. As he has been in the facility it may be prudent to continue the anticoagulation with Eliquis as we are doing. His rate should be controlled but it does not appear that he is able to tolerate beta-blockers due to his hypotension. I would suggest that we increase the amiodarone to 200 mg twice a day. We should perhaps discontinue the digoxin. (2) Heart failure: PLAN: He does have evidence of nonischemic cardiomyopathy as per the history. The plan will be to get him on guideline directed medical therapy as follows: Low-dose beta-ramiro with carvedilol Entresto as his blood pressure is able to tolerate He appears to be fairly euvolemic and so we will hold off on diuretics at this time even though his natruretic peptide is mildly elevated at 400 (3) Left ventricular systolic dysfunction (LVSD), NYHA class 3: PLAN: He does have evidence of left ventricular systolic dysfunction as noted above and we will continue to titrate his medications appropriately. (4) Pre-syncope: PLAN: He does have evidence of presyncope which I suspect is due to medication induced blood pressure changes and or relative dehydration. He was given a fluid bolus with some improvement. We will continue to watch him overnight. Thank you for allowing me to participate in the care of your patient. Please don't hesitate to call if any issues arise. HPI Consult Data Date of Consult: 10/15/23 HPI Narrative HPI Narrative: MIRNA JEFFRIES, is a 68 M who presents to the emergency room because of generalized weakness and shortness of breath. He also had 2 falls at home with dizziness lightheadedness and he felt he was going to pass out. He apparently was recently discharged from [facility] in [place] and then also previously in the [facility]. He has a history of a nonischemic cardiomyopathy with an estimated ejection fraction of 15 to 20%, atrial fibrillation with rapid ventricular response rate, alcohol abuse with a concern for Warnicke's encephalopathy and tobacco abuse. He was recently noted to have the atrial fibrillation and was started on anticoagulation as well as guideline directed medical therapy. He was discharged to a long-term facility and then presented to [facility] with altered mental status which improved and was thought to be secondary to polypharmacy as well as respiratory failure. He denies that he has used any alcohol recently. He has complained of the above dizziness but has not had any gaby syncopal episodes. In the emergency room here in [place] he was noted to be in atrial fibrillation with a rapid ventricular response rate and was hypotensive. He was given 500 cc of normal saline with minimal improvement in his blood pressures but no significant improvement in his heart rate. There was talk of transferring him to [facility] for further evaluation and management but there have been no beds available and so he was admitted here and we were consulted by text. At this particular time the patient appears to be doing fairly well he is sitting up in bed with blood pressures of approximately 85 systolic without any dizzy spells. He denies any chest pain or shortness of breath or paroxysmal nocturnal dyspnea he does not have any pedal edema his heart rate is in the low 90s to low 100s. [facility] Medical History A-fib Acute blood loss anemia Alcohol withdrawal Anxiety Anxiety and depression At high risk for malnutrition Behavior concern in adult Chewing tobacco use COPD (chronic obstructive pulmonary disease) Depression ETOH abuse GI bleed History of cancer tonsil Hypertension Hyponatremia Irregular heart beat Smoker Substance abuse Home Medications folic acid 1 mg tablet 1 mg PO DAILY@0800 #30 tabs 05/30/23 [Rx Last Taken Unknown] thiamine HCl (vitamin B1) 100 mg tablet (Vitamin B-1) 100 mg PO DAILYCM #30 tabs 05/30/23 [Rx Last Taken Unknown] albuterol sulfate 90 mcg/actuation aerosol inhaler 1 puff inhalation Q4H PRN PRN dyspnea 10/14/23 [History Last Taken Unknown] amiodarone 100 mg tablet 200 mg PO DAILY 10/14/23 [History Last Taken Unknown] apixaban 5 mg tablet (Eliquis) 5 mg PO BID 10/14/23 [History Last Taken Unknown] bumetanide 1 mg tablet 1 mg PO BID 10/14/23 [History Last Taken Unknown] calcium carbonate 215 mg calcium (500 mg) chewable tablet (Antacid Calcium) 537.5 mg PO DAILY 10/14/23 [History Last Taken Unknown] cholecalciferol (vitamin D3) 25 mcg (1,000 unit) tablet 25 mcg PO DAILY 10/14/23 [History Last Taken Unknown] cyanocobalamin (vitamin B-12) 1,000 mcg tablet 500 mcg PO DAILY 10/14/23 [History Last Taken Unknown] digoxin 125 mcg (0.125 mg) tablet 62.5 mcg PO DAILY 10/14/23 [History Last Taken Unknown] empagliflozin 10 mg tablet (Jardiance) 10 mg PO DAILY diabetes mellitus 10/14/23 [History Last Taken Unknown] fluticasone 100 mcg-salmeterol 50 mcg/dose blistr powdr for inhalation 1 ea inhalation DAILY 10/14/23 [History Last Taken Unknown] losartan 50 mg tablet 50 mg PO DAILY blood pressure 10/14/23 [History Last Taken Unknown] mirtazapine 7.5 mg tablet 7.5 mg PO QHS depressive disorder 10/14/23 [History Last Taken Unknown] pyridoxine (vitamin B6) 25 mg tablet (Vitamin B-6) 25 mg PO DAILY anemia 10/14/23 [History Last Taken Unknown] sacubitril 24 mg-valsartan 26 mg tablet (Entresto) 1 tab PO BID 10/14/23 [History Last Taken Unknown] spironolactone 25 mg tablet 25 mg PO DAILY blood pressure 10/14/23 [History Last Taken Unknown] benzocaine 15 mg-menthol 2.6 mg lozenges (Cepacol Sore Throat (benzocaine-menthol)) 1 forest mucous membrane Q2H PRN sore throat 10/15/23 [History Last Taken Unknown] budesonide-formoterol HFA 160 mcg-4.5 mcg/actuation aerosol inhaler (Symbicort) 1 inh inhalation BID SHORTNESS OF BREATH 10/15/23 [History Last Taken Unknown] melatonin 3 mg tablet 9 mg PO QHS PRN sleep 10/15/23 [History Last Taken Unknown] multivitamin with minerals-ferrous sulfate 4.5 mg iron tablet (One Daily Multivitamins with Minerals) 1 tab PO DAILY SUPPLEMENT 10/15/23 [History Last Taken Unknown] Allergy/AdvReac Type Severity Reaction Status Date / Time poison mike extract Allergy Mild RASH Verified 10/14/23 16:46 Family History Mother Diabetes Father Diabetes Brother Colon cancer Surgical History History of tonsillectomy and adenoidectomy Social History household members: other details: Lives with his son. Smoking Status: Former smoker Smokeless tobacco user: chewing tobacco and other alcohol intake: current alcohol intake frequency: 3 or more drinks per day details: 8-10 beers daily coupled with hard liquor. substance use type: does not use ROS Constitutional Constitutional: Denies fever(s) or weight loss Eyes Eyes: Reports systems reviewed and no addt'l complaints, except as documented ENT HEENT: Reports systems reviewed and no addt'l complaints, except as documented Cardiovascular Cardiovascular: Denies chest pain at rest, chest pain with activity, dyspnea at rest, dyspnea on exertion, edema, palpitations or paroxysmal nocturnal dyspnea Respiratory/Chest Respiratory/Chest: Denies dyspnea on exertion, productive cough, shortness of breath at rest or shortness of breath with exertion Gastrointestinal Gastrointestinal: Denies change in bowel habits, nausea, vomiting or weight changes Genitourinary Genitourinary: Denies difficulty urinating Musculoskeletal Musculoskeletal: Denies joint stiffness or muscle weakness Integumentary Integumentary: Denies lesions Neurologic Neurologic: Reports dizziness; Denies syncope Psychiatric Psychiatric: Denies anxiety Endocrine Endocrinology: Denies excessive sweating or fatigue Hematologic/Lymphatic Hematologic/Lymphatic: Denies anemia Allergic/Immunologic Allergic/Immunologic: Denies seasonal rhinorrhea Physical Exam Const alert, oriented x3 and no apparent distress General Appearance: cooperative HEENT hearing grossly normal bilaterally Head and Scalp: atraumatic Eyes EOMs intact bilaterally Neck General: normal visual inspection Chest inspection of chest normal and palpation of chest normal Resp normal respiratory effort Auscultation: clear to auscultation bilaterally Cardio S1 normal heart sound and S2 normal heart sound Jugular Venous Distention: JVD Rhythm: abnormal rhythm regularly irregular GI normal to inspection, nondistended, normoactive bowel sounds Extremity normal capillary refill and no pedal edema Peripheral Pulses: Yes pulses 2+ throughout and femoral pulses present Skin no rashes or lesions noted Neuro oriented x3 and CN's II-XII intact bilaterally Psych Appearance: grossly normal and appropriate Risk Stratification Risk Stratification Applicable: No Objective Data Vital Signs: Vital Signs Temp Pulse Resp BP Pulse Ox O2 Del Method 97.9 F 110 H 22 H 85/62 L 98 Room Air 10/15/23 15:30 10/15/23 18:00 10/15/23 18:00 10/15/23 18:00 10/15/23 18:00 10/15/23 18:00 Oxygen Delivery Method Room Air Weight: 158 lb 4.67 oz Body Mass Index (BMI) 22.7 Intake & Output: Intake and Output for Last 24 Hours 10/13/23 10/14/23 10/15/23 23:59 23:59 23:59 Intake Total 750 / 750 720 / 720 Output Total 75 / 75 Balance 750 / 750 645 / 645 Lab / Micro Data 10/14/23 16:54 10/14/23 16:54 Labs: Laboratory Results - last 24 hr 10/14/23 17:30: Digoxin 0.60 L 10/14/23 18:45: Urine Color Yellow, Urine Clarity Clear, Urine pH 6.5, Ur Specific [place] 1.010, Urine Protein 30 H, Urine Glucose (UA) 1000 H, Urine Ketones 15 H, Urine Occult Blood 10 H, Urine Nitrite Positive H, Urine Bilirubin 3 H, Urine Urobilinogen 1 H, Ur Leukocyte Esterase 25 H, Urine RBC 0 SEEN, Urine WBC 0-5 SEEN, Ur Squamous Epith Cells 0 SEEN, Urine Bacteria 1+, Hyaline Casts 0-5 SEEN, Urine Mucus 1+ 10/15/23 16:40: Magnesium 2.1 Rhythm Strip Rhythm Strip: A-fib Cardiology Labs/Tests 10/14/23 17:30: Digoxin 0.60 L 10/14/23 18:45: Urine Color Yellow, Urine Clarity Clear, Urine pH 6.5, Ur Specific [place] 1.010, Urine Protein 30 H, Urine Glucose (UA) 1000 H, Urine Ketones 15 H, Urine Occult Blood 10 H, Urine Nitrite Positive H, Urine Bilirubin 3 H, Urine Urobilinogen 1 H, Ur Leukocyte Esterase 25 H, Urine RBC 0 SEEN, Urine WBC 0-5 SEEN 10/15/23 16:40: Magnesium 2.1 Rhythm: EKG: ECHO: Stress Test: Cardiac Cath: PCI: CT Surgery: Holter monitor: EPS: PPM: CXR: Chest CT Scan: Radiography Diagnostic Testing: Radiology Impression Chest X-Ray 10/14/23 17:54 IMPRESSION: Normal x-ray examination of the chest. Electronically Signed: Johan Humphrey MD at 18:34 EDT ,
[2023-10-15] MEDS: Albuterol 2.5 MG/3 ML VIAL.NEB. INHALATION (19:24)
[2023-10-15] MEDS: Budesonide Respules 0.5 MG/2 ML AMPUL.NEB. INHALATION (19:24)
[2023-10-15] MEDS: Mirtazapine 15 MG Tablet 7.5 MG PO (20:46)
[2023-10-16] VITALS (29 sets, daily range): BP systolic 73–117; BP diastolic 39–91; PULSE 93–133; RESP 16–28; TEMP 36.7–37; O2SAT 94–100; BMI 23.0
[2023-10-16 03:26] LABS: Hematocrit 31.9 % (40-54); Hemoglobin 10.4 g/dL (13.0-16.5); Mean Corp Hgb Conc 32.6 g/dL (32-36); Mean Corpuscular Hgb 28.3 pg (27.0-32.0); Mean Corpuscular Volume 86.9 fL (80-94); Platelet Count 206 K/mm3 (150-450); RBC Distribution Width CV 18.1 % (11.6-14.6); RBC Distribution Width SD 57.7 fl (35.1-43.9); Red Blood Count 3.67 M/mm3 (4.6-6.2); White Blood Count 11.1 K/mm3 (4.4-11.0)
[2023-10-16 04:06] LABS: Anion Gap 7 (5-15); BUN 48 mg/dL (7-18); BUN/Creat Ratio 27.7 RATIO (10-20); Calcium,Total 8.4 mg/dL (8.5-10.1); Chloride 99 mmol/L (98-107); Creatinine, Serum 1.73 mg/dL (0.70-1.30); EST Glomerular Filtration Rate 42 mL/min (>60); Est Glom Filt Rate - Afr Amer 51 mL/min (>60); Estimated Creatinine Clearance 42.61 ml/min; Glucose 94 mg/dL (74-106); Potassium 3.6 mmol/L (3.5-5.1); Sodium Level 131 mmol/L (136-145)
[2023-10-16] MEDS: Budesonide Respules 0.5 MG/2 ML AMPUL.NEB. INHALATION ×2 (06:35→18:40)
[2023-10-16] MEDS: Albuterol 2.5 MG/3 ML VIAL.NEB. INHALATION ×3 (06:35→18:40)
--- NOTE | 2023-10-16 06:50 | PN.HOSP_ITS ---
Reason for Visit Reason for Visit: Diagnoses Unspecified atrial fibrillation (10/15/23) Heart failure, unspecified (10/15/23) Other ill-defined heart diseases (10/15/23) Hypotension, unspecified (10/15/23) Other malaise (10/15/23) Syncope and collapse (10/15/23) Unspecified fall, initial encounter (10/15/23) Subjective Subjective Some shortness of breath. Objective Data Objective Data Vital Signs: Vital Signs Temp Pulse Resp BP Pulse Ox O2 Del Method 36.8 C 129 H 19 H 91/54 L 94 Room Air 10/16/23 04:00 10/16/23 06:38 10/16/23 06:38 10/16/23 06:00 10/16/23 06:38 10/16/23 06:38 Oxygen Delivery Method Room Air Weight: 72.7 kg Body Mass Index (BMI) 23.0 Intake & Output: Intake and Output for Last 24 Hours 10/14/23 10/15/23 10/16/23 23:59 23:59 23:59 Intake Total 750 / 750 720 / 720 200 / 200 Output Total 275 / 275 100 / 100 Balance 750 / 750 445 / 445 100 / 100 Lab / Micro Data 10/16/23 03:15 10/16/23 03:15 Labs: Laboratory Results - last 24 hr 10/15/23 16:40: Magnesium 2.1 10/16/23 03:15: WBC 11.1 H, RBC 3.67 L, Hgb 10.4 L, Hct 31.9 L, MCV 86.9, MCH 28.3, MCHC 32.6, RDW Std Deviation 57.7 H, RDW Coeff of Jesus 18.1 H, Plt Count 206, MPV 11.0, Sodium 131 L, Potassium 3.6, Chloride 99, Carbon Dioxide 25.0, Anion Gap 7, BUN 48 H, Creatinine 1.73 H, Estim Creat Clear Calc 42.61, Est GFR (MDRD) Af Amer 51 L, Est GFR (MDRD) Non-Af 42 L, BUN/Creatinine Ratio 27.7 H, Glucose 94, Calcium 8.4 L Rhythm Strip Rhythm Strip: A-fib Physical Exam Const alert and no apparent distress HEENT head/scalp atraumatic and moist oral mucous membranes Resp normal respiratory effort, no retractions, no use of accessory muscles and clear to auscultation bilaterally Cardio Cardio Narrative: tachy, regular. GI normal to inspection, nondistended, normoactive bowel sounds, soft to palpation and non-tender Assessment & Plan Assessment/Plan (1) Atrial fibrillation with RVR: (2) Falls: (3) Pre-syncope: (4) Acute hypotension: (5) Debility: (6) Heart failure: PLAN: Plan Hypotension * w/o shock * responded to some IVF. monitor closely, caution advised with IVF given cardiomyopathy * BP/CHF meds held. Afib w RVR * on amio and digoxin * anticoagulated with apixaban * no BB at present given hypotension and low-normal BPs. * Cardiology following. Falls with presyncopal symptoms, * suspect orthostatic on top of poor performance status. * PT OT eval and treat Chronic conditions: * HFrEF, nonischemic cardiomyopathy? Also diagnosed in July, see HPI for further details. Last echo in August showed an EF of 15 to 20%. Last saw cardiology during that admission as noted above. Home regimen prior to admission here was Bumex 1 mg twice daily, empagliflozin 10 mg daily, losartan 50 mg daily, Entresto 24-26 mg twice daily, spironolactone 25 mg daily. Cardiology consulted as above. Holding home medications. * History of alcohol abuse with suspected Wernicke's encephalopathy? Reported last alcohol use was prior to his July admission to [facility]. Alcohol level of 0 on admit. Denies any withdrawal symptoms.? Continue home folate and thiamine. No need for CIWA protocol at this time. * CKD stage III: Creatinine 1.35 on admit, at baseline, stable. * Anxiety/depression/insomnia: Continue home melatonin, mirtazapine. * COPD: Stable on room air, no concern for exacerbation. Continue home i nhalers. * Tobacco use: Nicotine replacement therapy available as needed. * History of severely inappropriate behavior. Patient has a history of inappropriate comments and particularly inappropriate behavior towards female nursing. Will need to set behavior guidelines for him. DVT prophylaxis: Eliquis CODE STATUS: Full code, verified Expected disposition: Transfer to [facility] when bed is available Charges/Coding Visit Charges Inpatient E&M: 44064 Subs Hosp L2
--- NOTE | 2023-10-16 07:37 | PN.CARD_ITS ---
Subjective Subjective Patient seen and evaluated. Appears to be stable. Still mildly tachycardic. Objective Data Vital Signs: Vital Signs Temp Pulse Resp BP Pulse Ox O2 Del Method 98.3 F 132 H 25 H 117/91 H 97 Room Air 10/16/23 04:00 10/16/23 07:00 10/16/23 07:00 10/16/23 07:00 10/16/23 07:00 10/16/23 07:00 Oxygen Delivery Method Room Air Weight: 160 lb 4.417 oz Body Mass Index (BMI) 23.0 Intake & Output: Intake and Output for Last 24 Hours 10/14/23 10/15/23 10/16/23 23:59 23:59 23:59 Intake Total 750 / 750 720 / 720 200 / 200 Output Total 275 / 275 100 / 100 Balance 750 / 750 445 / 445 100 / 100 Lab / Micro Data 10/16/23 03:15 10/16/23 03:15 Labs: Laboratory Results - last 24 hr 10/15/23 16:40: Magnesium 2.1 10/16/23 03:15: WBC 11.1 H, RBC 3.67 L, Hgb 10.4 L, Hct 31.9 L, MCV 86.9, MCH 28.3, MCHC 32.6, RDW Std Deviation 57.7 H, RDW Coeff of Jesus 18.1 H, Plt Count 206, MPV 11.0, Sodium 131 L, Potassium 3.6, Chloride 99, Carbon Dioxide 25.0, Anion Gap 7, BUN 48 H, Creatinine 1.73 H, Estim Creat Clear Calc 42.61, Est GFR (MDRD) Af Amer 51 L, Est GFR (MDRD) Non-Af 42 L, BUN/Creatinine Ratio 27.7 H, Glucose 94, Calcium 8.4 L Rhythm Strip Rhythm Strip: A-fib Cardiology Labs/Tests 10/15/23 16:40: Magnesium 2.1 10/16/23 03:15: WBC 11.1 H, RBC 3.67 L, Hgb 10.4 L, Hct 31.9 L, MCV 86.9, MCH 28.3, MCHC 32.6, Plt Count 206, MPV 11.0, Sodium 131 L, Potassium 3.6, Chloride 99, Carbon Dioxide 25.0, Anion Gap 7, BUN 48 H, Creatinine 1.73 H, Est GFR (MDRD) Af Amer 51 L, Est GFR (MDRD) Non-Af 42 L, BUN/Creatinine Ratio 27.7 H, Glucose 94, Calcium 8.4 L Rhythm: EKG: ECHO: Stress Test: Cardiac Cath: PCI: CT Surgery: Holter monitor: EPS: PPM: CXR: Chest CT Scan: Physical Exam Const alert, oriented x3 and no apparent distress General Appearance: cooperative HEENT hearing grossly normal bilaterally Head and Scalp: atraumatic Eyes EOMs intact bilaterally Neck General: normal visual inspection Chest inspection of chest normal and palpation of chest normal Resp normal respiratory effort Auscultation: clear to auscultation bilaterally Cardio S1 normal heart sound and S2 normal heart sound Jugular Venous Distention: JVD Rhythm: abnormal rhythm regularly irregular GI normal to inspection, nondistended, normoactive bowel sounds Extremity normal capillary refill and no pedal edema Peripheral Pulses: Yes pulses 2+ throughout and femoral pulses present Skin no rashes or lesions noted Neuro oriented x3 and CN's II-XII intact bilaterally Psych Appearance: grossly normal and appropriate Assessment & Plan Assessment/Plan (1) Atrial fibrillation with RVR: PLAN: He does present with atrial fibrillation with rapid ventricular response rate which appears to be persistent at this time. * Recommendation will be to continue the amiodarone at 200 mg twice a day * On low-dose beta-ramiro with carvedilol 3.125 mg twice a day * Lanoxin for today only (2) Heart failure: PLAN: He does have evidence of nonischemic cardiomyopathy as per the history. The plan will be to get him on guideline directed medical therapy as follows: Low-dose beta-ramiro with carvedilol Entresto as his blood pressure is able to tolerate He appears to be fairly euvolemic and so we will hold off on diuretics at this time even though his natruretic peptide is mildly elevated at 400 (3) Left ventricular systolic dysfunction (LVSD), NYHA class 3: PLAN: He does have evidence of left ventricular systolic dysfunction as noted above and we will continue to titrate his medications appropriately. (4) Pre-syncope: PLAN: He does have evidence of presyncope which I suspect is due to medication induced blood pressure changes and or relative dehydration. He was given a fluid bolus with some improvement. We will continue to watch him overnight. Thank you for allowing me to participate in the care of your patient. Please don't hesitate to call if any issues arise.
[2023-10-16] MEDS: Cholecalciferol (VIT D3) 25 MCG TABLET (1,000 UNITS) PO (07:52)
[2023-10-16] MEDS: Amiodarone 200 MG Tablet PO ×2 (07:52→20:16)
[2023-10-16] MEDS: Cyanocobalamin 500 MCG Tablet PO (07:52)
[2023-10-16] MEDS: Folic Acid 1 MG Tablet PO (07:52)
[2023-10-16] MEDS: Thiamine Hydrochloride 100 MG Tablet PO (07:52)
[2023-10-16] MEDS: Digoxin 125 MCG Tablet 62.5 MCG PO (07:52)
[2023-10-16] MEDS: APIXABAN 5 MG TABLET PO ×2 (07:53→20:15)
[2023-10-16] MEDS: Acetaminophen 325 MG Tablet 650 MG PO ×2 (07:53→20:15)
[2023-10-16] MEDS: 0.9% Normal Saline (500mL Bag) 500 ML 999 ML IV ×2 (13:00→16:32)
[2023-10-16] MEDS: MELATONIN 10 MG TABLET PO (20:15)
[2023-10-16] MEDS: Mirtazapine 15 MG Tablet 7.5 MG PO (20:15)
[2023-10-17] VITALS (9 sets, daily range): BP systolic 88–99; BP diastolic 52–66; PULSE 78–114; RESP 14–28; TEMP 36.9–37; O2SAT 91–97; BMI 23.4
--- NOTE | 2023-10-17 07:02 | PN.HOSP_ITS ---
Reason for Visit Reason for Visit: Diagnoses Unspecified atrial fibrillation (10/15/23) Heart failure, unspecified (10/15/23) Other ill-defined heart diseases (10/15/23) Hypotension, unspecified (10/15/23) Other malaise (10/15/23) Syncope and collapse (10/15/23) Unspecified fall, initial encounter (10/15/23) Objective Data Objective Data Vital Signs: Vital Signs Temp Pulse Resp BP Pulse Ox O2 Del Method 36.9 C 78 26 H 88/66 L 94 Room Air 10/17/23 04:00 10/17/23 06:00 10/17/23 06:00 10/17/23 06:00 10/17/23 06:00 10/17/23 06:00 Oxygen Delivery Method Room Air Weight: 74.2 kg Body Mass Index (BMI) 23.4 Intake & Output: Intake and Output for Last 24 Hours 10/15/23 10/16/23 10/17/23 23:59 23:59 23:59 Intake Total 720 / 720 2019 Output Total 275 / 275 825 / 825 400 / 400 Balance 445 / 445 1195 / 1195 -400 / -400 Lab / Micro Data 10/16/23 03:15 10/16/23 03:15 Micro: Microbiology 10/14/23 18:45 Urine, Random Urine Culture - Final Mixed Gram Positive Organisms Rhythm Strip Rhythm Strip: A-fib Assessment & Plan Assessment/Plan (1) Atrial fibrillation with RVR: (2) Falls: (3) Pre-syncope: (4) Acute hypotension: (5) Debility: (6) Heart failure: PLAN: Plan Hypotension * w/o shock * responded to some IVF. monitor closely, caution advised with IVF given cardiomyopathy * BP/CHF meds held. Afib w RVR * on amio and digoxin * anticoagulated with apixaban * no BB at present given hypotension and low-normal BPs. * Cardiology following. Falls with presyncopal symptoms, * suspect orthostatic on top of poor performance status. * PT OT eval and treat MARKOS * worse today * up from 1.35. * hold off on additional IVF given cardiomyopathy unless worse or hypotensive. Chronic conditions: * HFrEF, nonischemic cardiomyopathy? Also diagnosed in July, see HPI for further details. Last echo in August showed an EF of 15 to 20%. Last saw cardiology during that admission as noted above. Home regimen prior to admission here was Bumex 1 mg twice daily, empagliflozin 10 mg daily, losartan 50 mg daily, Entresto 24-26 mg twice daily, spironolactone 25 mg daily. Cardiology consulted as above. Holding home medications. * History of alcohol abuse with suspected Wernicke's encephalopathy? Reported last alcohol use was prior to his July admission to [facility]. Alcohol level of 0 on admit. Denies any withdrawal symptoms.? Continue home folate and thiamine. No need for CIWA protocol at this time. * CKD stage III: Creatinine 1.35 on admit, at baseline, stable. * Anxiety/depression/insomnia: Continue home melatonin, mirtazapine. * COPD: Stable on room air, no concern for exacerbation. Continue home inhalers. * Tobacco use: Nicotine replacement therapy available as needed. * History of severely inappropriate behavior. Patient has a history of inappropriate comments and particularly inappropriate behavior towards female nursing. Will need to set behavior guidelines for him. DVT prophylaxis: Araceli CODE STATUS: Full code, verified Expected disposition: Transfer to [facility] when bed is available
--- NOTE | 2023-10-17 07:02 | PCM.PN.HOSP ---
Reason for Visit Reason for Visit: Diagnoses Unspecified atrial fibrillation (10/15/23) Heart failure, unspecified (10/15/23) Other ill-defined heart diseases (10/15/23) Hypotension, unspecified (10/15/23) Other malaise (10/15/23) Syncope and collapse (10/15/23) Unspecified fall, initial encounter (10/15/23) Subjective Subjective Denies events. Blood pressure was low yesterday but did improve with IV fluids. Objective Data Objective Data Vital Signs: Vital Signs Temp Pulse Resp BP Pulse Ox O2 Del Method 36.9 C 78 26 H 88/66 L 94 Room Air 10/17/23 04:00 10/17/23 06:00 10/17/23 06:00 10/17/23 06:00 10/17/23 06:00 10/17/23 06:00 Oxygen Delivery Method Room Air Weight: 74.2 kg Body Mass Index (BMI) 23.4 Intake & Output: Intake and Output for Last 24 Hours 10/15/23 10/16/23 10/17/23 23:59 23:59 23:59 Intake Total 720 / 720 2019 Output Total 275 / 275 825 / 825 400 / 400 Balance 445 / 445 1195 / 1195 -400 / -400 Lab / Micro Data 10/16/23 03:15 10/16/23 03:15 Micro: Microbiology 10/14/23 18:45 Urine, Random Urine Culture - Final Mixed Gram Positive Organisms Rhythm Strip Rhythm Strip: A-fib Physical Exam Const alert and no apparent distress Constitutional Narrative: Flat affect. Afebrile. No respiratory distress. No conversational dyspnea. On room air. HEENT head/scalp atraumatic and moist oral mucous membranes Resp normal respiratory effort, no retractions, no use of accessory muscles and clear to auscultation bilaterally Cardio S2 normal heart sound Cardio Narrative: Irregularly irregular Assessment & Plan Assessment/Plan (1) Atrial fibrillation with RVR: (2) Falls: (3) Pre-syncope: (4) Acute hypotension: (5) Debility: (6) Heart failure: PLAN: Plan Hypotension w/o shock responded to some IVF. monitor closely, caution advised with IVF given cardiomyopathy BP/CHF meds held. Afib w RVR on amio and digoxin anticoagulated with apixaban no BB at present given hypotension and low-normal BPs. Cardiology following. Falls with presyncopal symptoms, suspect orthostatic on top of poor performance status. PT OT eval and treat MARKOS worse today up from 1.35. hold off on additional IVF given cardiomyopathy unless worse or hypotensive. Chronic conditions: HFrEF, nonischemic cardiomyopathy? Also diagnosed in July, see HPI for further details. Last echo in August showed an EF of 15 to 20%. Last saw cardiology during that admission as noted above. Home regimen prior to admission here was Bumex 1 mg twice daily, empagliflozin 10 mg daily, losartan 50 mg daily, Entresto 24-26 mg twice daily, spironolactone 25 mg daily. Cardiology consulted as above. Holding home medications. History of alcohol abuse with suspected Wernicke's encephalopathy? Reported last alcohol use was prior to his July admission to [facility]. Alcohol level of 0 on admit. Denies any withdrawal symptoms.? Continue home folate and thiamine. No need for CIWA protocol at this time. CKD stage III: Creatinine 1.35 on admit, at baseline, stable. Anxiety/depression/insomnia: Continue home melatonin, mirtazapine. COPD: Stable on room air, no concern for exacerbation. Continue home inhalers. Tobacco use: Nicotine replacement therapy available as needed. History of severely inappropriate behavior. Patient has a history of inappropriate comments and particularly inappropriate behavior towards female nursing. Will need to set behavior guidelines for him. DVT prophylaxis: Araceli CODE STATUS: Full code, verified Expected disposition: Transfer to [facility] in [place] today
[2023-10-17] MEDS: Budesonide Respules 0.5 MG/2 ML AMPUL.NEB. INHALATION (07:25)
[2023-10-17] MEDS: Albuterol 2.5 MG/3 ML VIAL.NEB. INHALATION (07:25)
--- NOTE | 2023-10-17 08:29 | DS.PCM_ITS ---
Providers Date of Admission: 10/15/23 Primary Care Physician: Dr. Rena Springer MD Consultations 10/15/23 15:38 Consult: Cardiology Routine Consulting Provider: Jero Nicole Reason for Consult: afib rvr, hfref, transfer is in process EMERGENT Consult: No MD Notified: Yes Date Notified: 10/15/23 Time Notified: 13:38 Method of Notification: Text Reason For Visit: AFIB WITH RVR, CHF Diagnosis Discharge Diagnosis (1) Atrial fibrillation with RVR: Status: Acute Code(s): I48.91 - Unspecified atrial fibrillation (2) Falls: Status: Acute Code(s): W19.XXXA - Unspecified fall, initial encounter (3) Pre-syncope: Status: Acute Code(s): R55 - Syncope and collapse (4) Acute hypotension: Status: Acute Code(s): I95.9 - Hypotension, unspecified (5) Debility: Status: Acute Code(s): R53.81 - Other malaise (6) Heart failure: Status: Acute Code(s): I50.9 - Heart failure, unspecified Plan Hypotension * w/o shock * responded to some IVF. monitor closely, caution advised with IVF given cardiomyopathy * BP/CHF meds held. Afib w RVR * on amio and digoxin * anticoagulated with apixaban * no BB at present given hypotension and low-normal BPs. * Cardiology following. Falls with presyncopal symptoms, * suspect orthostatic on top of poor performance status. * PT OT eval and treat MARKOS * worse today * up from 1.35. * hold off on additional IVF given cardiomyopathy unless worse or hypotensive. Chronic conditions: * HFrEF, nonischemic cardiomyopathy? Also diagnosed in July, see HPI for further details. Last echo in August showed an EF of 15 to 20%. Last saw cardiology during that admission as noted above. Home regimen prior to admission here was Bumex 1 mg twice daily, empagliflozin 10 mg daily, losartan 50 mg daily, Entresto 24-26 mg twice daily, spironolactone 25 mg daily. Cardiology consulted as above. Holding home medications. * History of alcohol abuse with suspected Wernicke's encephalopathy? Reported last alcohol use was prior to his July admission to [facility]. Alcohol level of 0 on admit. Denies any withdrawal symptoms.? Continue home folate and thiamine. No need for CIIA protocol at this time. * CKD stage III: Creatinine 1.35 on admit, at baseline, stable. * Anxiety/depression/insomnia: Continue home melatonin, mirtazapine. * COPD: Stable on room air, no concern for exacerbation. Continue home inhalers. * Tobacco use: Nicotine replacement therapy available as needed. * History of severely inappropriate behavior. Patient has a history of inappropriate comments and particularly inappropriate behavior towards female nursing. Will need to set behavior guidelines for him. DVT prophylaxis: Eliquis CODE STATUS: Full code, verified Expected disposition: Transfer to [facility] Medications at Discharge Home Medications folic acid 1 mg tablet 1 mg PO DAILY@0800 #30 tabs 05/30/23 thiamine HCl (vitamin B1) 100 mg tablet (Vitamin B-1) 100 mg PO DAILYCM #30 tabs 05/30/23 albuterol sulfate 90 mcg/actuation aerosol inhaler 1 puff inhalation Q4H PRN PRN dyspnea 10/14/23 amiodarone 100 mg tablet 200 mg PO DAILY 10/14/23 apixaban 5 mg tablet (Eliquis) 5 mg PO BID 10/14/23 bumetanide 1 mg tablet 1 mg PO BID 10/14/23 calcium carbonate 215 mg calcium (500 mg) chewable tablet (Antacid Calcium) 537.5 mg PO DAILY 10/14/23 cholecalciferol (vitamin D3) 25 mcg (1,000 unit) tablet 25 mcg PO DAILY 10/14/23 cyanocobalamin (vitamin B-12) 1,000 mcg tablet 500 mcg PO DAILY 10/14/23 digoxin 125 mcg (0.125 mg) tablet 62.5 mcg PO DAILY 10/14/23 empagliflozin 10 mg tablet (Jardiance) 10 mg PO DAILY diabetes mellitus 10/14/23 fluticasone 100 mcg-salmeterol 50 mcg/dose blistr powdr for inhalation 1 ea inhalation DAILY 10/14/23 losartan 50 mg tablet 50 mg PO DAILY blood pressure 10/14/23 mirtazapine 7.5 mg tablet 7.5 mg PO QHS depressive disorder 10/14/23 pyridoxine (vitamin B6) 25 mg tablet (Vitamin B-6) 25 mg PO DAILY anemia 10/14/23 sacubitril 24 mg-valsartan 26 mg tablet (Entresto) 1 tab PO BID 10/14/23 spironolactone 25 mg tablet 25 mg PO DAILY blood pressure 10/14/23 benzocaine 15 mg-menthol 2.6 mg lozenges (Cepacol Sore Throat (benzocaine- menthol)) 1 forest mucous membrane Q2H PRN sore throat 10/15/23 budesonide-formoterol HFA 160 mcg-4.5 mcg/actuation aerosol inhaler (Symbicort) 1 inh inhalation BID SHORTNESS OF BREATH 10/15/23 melatonin 3 mg tablet 9 mg PO QHS PRN sleep 10/15/23 multivitamin with minerals-ferrous sulfate 4.5 mg iron tablet (One Daily Multivitamins with Minerals) 1 tab PO DAILY SUPPLEMENT 10/15/23 Weight / BMI Weight Weight: 74.2 kg Body Mass Index (BMI) 23.4 ABG / Lab / Microbiology Data 10/16/23 03:15 10/16/23 03:15 Microbiology: Microbiology 10/14/23 18:45 Urine, Random Urine Culture - Final Mixed Gram Positive Organisms Meaningful Use Info Meaningful Use Diagnoses (Choose all that apply): None applicable Discharge Plan Admission Admit Date/Time: 10/15/23 13:27 Primary Reason for Your Visit: Atrial fibrillation with RVR Attending Provider: Galen Souza Primary Care Provider: Rena Springer Consulting Providers: Jero Nicole; Floyd Mcadams Discharge Orders/Prescriptions Prescriptions: No Action thiamine HCl (vitamin B1) [Vitamin B-1] 100 mg Tablet 100 mg PO DAILYCM Qty: 30 2RF folic acid 1 mg Tablet 1 mg PO DAILY@0800 Qty: 30 3RF losartan 50 mg tablet 50 mg PO DAILY bumetanide 1 mg tablet 1 mg PO BID amiodarone 100 mg tablet 200 mg PO DAILY Eliquis 5 mg tablet 5 mg PO BID Jardiance 10 mg tablet 10 mg PO DAILY Entresto 24-26 mg tablet 1 tab PO BID pyridoxine (vitamin B6) [Vitamin B-6] 25 mg tablet 25 mg PO DAILY cyanocobalamin (vitamin B-12) 1,000 mcg tablet 500 mcg PO DAILY spironolactone 25 mg tablet 25 mg PO DAILY digoxin 125 mcg (0.125 mg) tablet 62.5 mcg PO DAILY fluticasone propion-salmeterol 100-50 mcg/dose blister with device 1 ea inhalation DAILY albuterol sulfate 90 mcg/actuation HFA aerosol inhaler 1 puff inhalation Q4H PRN PRN (Reason: dyspnea) mirtazapine 7.5 mg tablet 7.5 mg PO QHS cholecalciferol (vitamin D3) 25 mcg (1,000 unit) tablet 25 mcg PO DAILY Antacid Calcium 215 mg calcium (500 mg) tablet,chewable 537.5 mg PO DAILY melatonin 3 mg tablet 9 mg PO QHS PRN (Reason: sleep) budesonide-formoterol [Symbicort] 160-4.5 mcg/actuation HFA aerosol inhaler 1 inh inhalation BID Cepacol Sore Throat (kwasi-men) 15-2.6 mg lozenge 1 forest mucous membrane Q2H PRN (Reason: sore throat) One Daily Multi-Vit w-Mineral 4.5 mg iron tablet 1 tab PO DAILY Referrals / Follow Up: Rena Springer MD [Primary Care Provider] - Disposition Disposition (needs filled in before D/C Order can be placed): Acute Care Hospital Charges/Coding Visit Charges Inpatient E&M: 50264 Disch Hosp
== END 2023-10-17 08:20 | disposition short-term general hospital (02) | DRG 312 ==
LOC: ED 10-15 13:29 → PCU 10-15 14:26 → ICU 10-16 06:44
PROVIDERS: Physician Assistant; Admitting Provider Hospitalist; Emergency Provider Student in an Organized Health Care Education/Training Program; PCP Family Medicine
DX: I95.2 Hypotension due to drugs (principal); I13.0 Hypertensive heart and chronic kidney disease with heart failure and stage 1 through stage 4 chronic kidney disease, or unspecified chronic kidney disease; E51.2 Wernicke's encephalopathy; I50.22 Chronic systolic (congestive) heart failure; I42.8 Other cardiomyopathies; N18.30 Chronic kidney disease, stage 3 unspecified; J44.9 Chronic obstructive pulmonary disease, unspecified; I48.91 Unspecified atrial fibrillation; F32.A Depression, unspecified; F10.10 Alcohol abuse, uncomplicated; F41.9 Anxiety disorder, unspecified; F17.220 Nicotine dependence, chewing tobacco, uncomplicated; Z79.899 Other long term (current) drug therapy; G47.00 Insomnia, unspecified; T50.2X5A Adverse effect of carbonic-anhydrase inhibitors, benzothiadiazides and other diuretics, initial encounter; R53.81 Other malaise; Z79.01 Long term (current) use of anticoagulants; Z79.51 Long term (current) use of inhaled steroids; Z79.84 Long term (current) use of oral hypoglycemic drugs
CPT/HCPCS: 71045; 80048; 80162; 80320; 81001; 83735; 83880; 84484; 85025; 85027; 87086; 87088; 93005; 94640; 94668; 97162; 97166; 99285; J7040; A4216; G0480

== ENCOUNTER 2024-03-11 15:21 | Emergency (ER) | payer MEDICARE, SELFPAY ==
[2024-03-11 15:22] VITALS: BP 81/48; PULSE 74; RESP 18; TEMP 36.1; O2SAT 97
[2024-03-11 16:21] LABS: Bedside Glucose 131 mg/dL (74-106)
--- NOTE | 2024-03-11 16:24 | EX.ED.DYSGE1 ---
HPI History of Present Illness Chief Complaint: Syncope Informant: patient Onset/Context/Timing Onset: Today Context: Sudden Onset Timing: Intermittent Quality: Everything went white Location: Generalized Worsened by: Nothing Relieved by: Laying down Narrative Narrative: Patient presents with a near syncopal episode that occurred today. Patient states that he was standing visiting his daughter who lives across the street from him. Patient states he felt like he was going to pass out. Patient states he went back to his house and laid on the couch. Patient states that his vision went white. Patient denies any loss of consciousness. Patient states his symptoms got better after he laid down. Patient states nothing made it worse. Patient denies any chest pain or palpitations. Patient denies any shortness of breath or cough. Patient admits to some recent urinary frequency and a mild headache. PFSH PFSH Medical History A-fib Malnutrition Pulmonary mass CHI (closed head injury) Substance abuse Anxiety Depression Smoker COPD (chronic obstructive pulmonary disease) Irregular heart beat Hypertension Behavior concern in adult At high risk for malnutrition Mass of left lung Hyponatremia Alcohol withdrawal Acute blood loss anemia GI bleed Chewing tobacco use History of cancer tonsil Anxiety and depression ETOH abuse Home Medications ?Medication ?Instructions ?Recorded ?Last Taken ?Type folic acid 1 mg tablet 1 mg PO DAILY@0800 #30 tabs 05/30/23 Unknown Rx thiamine HCl (vitamin B1) 100 mg 100 mg PO DAILYCM #30 tabs 05/30/23 Unknown Rx tablet (Vitamin B-1) albuterol sulfate 90 mcg/actuation 1 puff inhalation Q4H PRN PRN 10/14/23 Unknown History aerosol inhaler dyspnea amiodarone 100 mg tablet 200 mg PO DAILY 10/14/23 Unknown History apixaban 5 mg tablet (Eliquis) 5 mg PO BID 10/14/23 Unknown History bumetanide 1 mg tablet 1 mg PO BID 10/14/23 Unknown History calcium carbonate (Antacid Calcium) 537.5 mg PO DAILY 10/14/23 Unknown History cholecalciferol (vitamin D3) 25 25 mcg PO DAILY 10/14/23 Unknown History mcg (1,000 unit) tablet cyanocobalamin (vitamin B-12) 500 mcg PO DAILY 10/14/23 Unknown History 1,000 mcg tablet digoxin 125 mcg (0.125 mg) tablet 62.5 mcg PO DAILY 10/14/23 Unknown History empagliflozin 10 mg tablet 10 mg PO DAILY diabetes mellitus 10/14/23 Unknown History (Jardiance) fluticasone 100 mcg-salmeterol 50 1 ea inhalation DAILY 10/14/23 Unknown History mcg/dose blistr powdr for inhalation losartan 50 mg tablet 50 mg PO DAILY blood pressure 10/14/23 Unknown History mirtazapine 7.5 mg tablet 7.5 mg PO QHS depressive disorder 10/14/23 Unknown History pyridoxine (vitamin B6) 25 mg 25 mg PO DAILY anemia 10/14/23 Unknown History tablet (Vitamin B-6) sacubitril 24 mg-valsartan 26 mg 1 tab PO BID 10/14/23 Unknown History tablet (Entresto) spironolactone 25 mg tablet 25 mg PO DAILY blood pressure 10/14/23 Unknown History benzocaine 15 mg-menthol 2.6 mg 1 forest mucous membrane Q2H PRN sore 10/15/23 Unknown History lozenges (Cepacol Sore Throat throat (benzocaine-menthol)) budesonide-formoterol HFA 160 1 inh inhalation BID SHORTNESS OF 10/15/23 Unknown History mcg-4.5 mcg/actuation aerosol BREATH inhaler (Symbicort) melatonin 3 mg tablet 9 mg PO QHS PRN sleep 10/15/23 Unknown History multivitamin with minerals-ferrous 1 tab PO DAILY SUPPLEMENT 10/15/23 Unknown History sulfate 4.5 mg iron tablet (One Daily Multivitamins with Minerals) Allergy/AdvReac Type Severity Reaction Status Date / Time poison mike extract Allergy Mild RASH Verified 03/11/24 15:22 Family History Mother Diabetes Father Diabetes Brother Colon cancer Surgical History History of tonsillectomy and adenoidectomy Social History household members: other details: Lives with his son. Smoking Status: Current some day smoker tobacco type: cigarettes and smokeless tobacco Smokeless tobacco user: chewing tobacco and other alcohol intake: current alcohol intake frequency: 3 or more drinks per day details: 8-10 beers daily coupled with hard liquor. substance use type: does not use ROS ROS ED Constitutional Constitutional ED: Denies chills or fever(s) Eyes Eyes: Denies blurry vision or change in vision ENT ENT ED: Reports rhinorrhea; Denies sore throat Cardiovascular Cardiovascular: Denies chest pain or palpitations Respiratory/Chest Respiratory/Chest: Denies cough or dyspnea Gastrointestinal Gastrointestinal: Reports diarrhea; Denies nausea or vomiting Genitourinary Genitourinary ED: Reports urinary frequency; Denies dysuria or hematuria Musculoskeletal Musculoskeletal: Denies back pain or neck pain Integumentary Denies abscess or rash Neurologic Neurologic: Reports headache(s); Denies weakness Allergic/Immunologic Allergic/Immunologic ED: Denies mouth swelling or urticaria EXAM Physical Exam Const Vital Signs: 03/11/24 15:22 03/11/24 17:22 03/11/24 17:39 Temperature 97 F L Temperature Source Temporal Pulse Rate 74 71 Respiratory Rate 18 18 Blood Pressure 81/48 L 114/71 Blood Pressure [Lying] 122/88 H Blood Pressure [Sitting (for 1 minute prior to obtaining)] 118/97 H Blood Pressure [Standing (for 1 minute prior to obtaining)] 137/84 H Blood Pressure Mean 59 85 Blood Pressure Mean [Lying] 99 Blood Pressure Mean [Sitting (for 1 minute prior to obtaining)] 104 Blood Pressure Mean [Standing (for 1 minute prior to obtaining)] 101 Pulse Ox 97 98 Oxygen Delivery Method Room Air Room Air 03/11/24 18:55 03/11/24 21:00 Temperature Temperature Source Pulse Rate 81 81 Respiratory Rate 19 H Blood Pressure 137/84 H 148/83 H Blood Pressure [Lying] Blood Pressure [Sitting (for 1 minute prior to obtaining)] Blood Pressure [Standing (for 1 minute prior to obtaining)] Blood Pressure Mean 101 104 Blood Pressure Mean [Lying] Blood Pressure Mean [Sitting (for 1 minute prior to obtaining)] Blood Pressure Mean [Standing (for 1 minute prior to obtaining)] Pulse Ox 98 Oxygen Delivery Method Room Air Positive well nourished and well developed General Appearance ED: well developed and NAD HEENT Reports moist mucous membranes Neck supple Resp normal respiratory effort and clear to auscultation bilaterally Cardio regular rate Rhythm: abnormal rhythm irregularly irregular GI non-tender and non-distended Palpation: soft Extremity normal to inspection Neuro oriented x3, CN's II-XII intact bilaterally and no sensory deficits noted Sensorium / Orientation: alert Motor Exam: strength 5/5 throughout MDM MDM MDM Narrative Medical decision making narrative: Differential diagnosis includes cardiac dysrhythmia, cardiac ischemia, electrolyte abnormality, dehydration, pneumonia, viral illness, intracranial bleeding, stroke, and urinary tract infection. EKG will be obtained to assess for cardiac dysrhythmia and cardiac ischemia. CT scan of the brain will be obtained to assess for stroke and intracranial bleeding. Chest x-ray will be obtained to assess for pneumonia and pneumothorax. CBC will be obtained to assess for leukocytosis and anemia. Comprehensive metabolic profile will be obtained to assess for hepatic function, renal function, and electrolyte abnormality. Urinalysis will be obtained to assess for urinary tract infection and hematuria. High-sensitivity troponin will be obtained to assess for cardiac ischemia. 2-hour repeat high-sensitivity troponin will be obtained to assess for ongoing cardiac ischemia. COVID-19, influenza, and RSV PCR will be obtained to assess for viral illness. History & Record Review Additional record(s) reviewed:: Prior labs Lab Data Attestation: I reviewed the patient's lab results. Lab results narrative: CBC was reviewed. There is a slight anemia with a hemoglobin of 10.9 and hematocrit of 32.0. The remainder is within normal limits. Comprehensive metabolic profile was reviewed. Creatinine was slightly elevated at 1.49. This is consistent with previous results sodium was slightly low at 132. Urinalysis was reviewed. There is no evidence of urinary tract infection or hematuria. Initial high-sensitivity troponin was reviewed and was normal at 8. 2-hour repeat high-sensitivity troponin was reviewed and was normal at 8. COVID-19 PCR was reviewed and was negative. Influenza PCR was reviewed and was negative for influenza A and influenza B. RSV PCR was reviewed and was negative. Labs: Laboratory Results - last 24 hr 03/11/24 03/11/24 03/11/24 16:00 16:01 17:56 WBC 8.6 RBC 3.46 L Hgb 10.9 L Hct 32.0 L MCV 92.5 MCH 31.5 MCHC 34.1 RDW Std Deviation 43.8 RDW Coeff of Jesus 13.0 Plt Count 228 MPV 11.2 Immature Gran % (Auto) 0.300 Neut % (Auto) 85.9 H Lymph % (Auto) 4.5 L [place] % (Auto) 8.5 Eos % (Auto) 0.6 Baso % (Auto) 0.2 Absolute Neuts (auto) 7.4 Absolute Lymphs (auto) 0.39 L Nucleated RBC % 0 Differential Comment SEE COMMENT Platelet Estimate ADEQUATE RBC Morphology N CHROM Anisocytosis RARE Macrocytosis RARE Sodium 132 L Potassium 4.2 Chloride 99 Carbon Dioxide 27.0 Anion Gap 6 BUN 18 Creatinine 1.49 H Est GFR (MDRD) Af Amer 60 Est GFR (MDRD) Non-Af 50 L BUN/Creatinine Ratio 12.1 Glucose 133 H Calcium 9.3 Total Bilirubin 0.50 AST 18 ALT 23 Alkaline Phosphatase 87 Troponin I High Sens 8 Total Protein 6.7 Albumin 3.3 Globulin 3.4 Albumin/Globulin Ratio 1.0 Urine Color Yellow Urine Clarity Sl. Cloudy Urine pH 6.5 Ur Specific [place] 1.010 Urine Protein Negative Urine Glucose (UA) Normal Urine Ketones 5 H Urine Occult Blood Negative Urine Nitrite Negative Urine Bilirubin Negative Urine Urobilinogen Normal Ur Leukocyte Esterase Negative Urine RBC 0 SEEN Urine WBC 0 SEEN Ur Squamous Epith Cells 0-5 SEEN Urine Bacteria 0 SEEN Urine Mucus 0 SEEN POC Glucose 131 H 03/11/24 19:34 WBC RBC Hgb Hct MCV MCH MCHC RDW Std Deviation RDW Coeff of Jesus Plt Count MPV Immature Gran % (Auto) Neut % (Auto) Lymph % (Auto) [place] % (Auto) Eos % (Auto) Baso % (Auto) Absolute Neuts (auto) Absolute Lymphs (auto) Nucleated RBC % Differential Comment Platelet Estimate RBC Morphology Anisocytosis Macrocytosis Sodium Potassium Chloride Carbon Dioxide Anion Gap BUN Creatinine Est GFR (MDRD) Af Amer Est GFR (MDRD) Non-Af BUN/Creatinine Ratio Glucose Calcium Total Bilirubin AST ALT Alkaline Phosphatase Troponin I High Sens 8 Total Protein Albumin Globulin Albumin/Globulin Ratio Urine Color Urine Clarity Urine pH Ur Specific [place] Urine Protein Urine Glucose (UA) Urine Ketones Urine Occult Blood Urine Nitrite Urine Bilirubin Urine Urobilinogen Ur Leukocyte Esterase Urine RBC Urine WBC Ur Squamous Epith Cells Urine Bacteria Urine Mucus POC Glucose Radiography Diagnostic Testing: Clinical Impression(s) from Imaging Studies Brain CT 03/11/24 17:39 IMPRESSION: Atrophy and mild periventricular white matter ischemic changes.. No acute bleed. If concern for acute infarct MRI recommended Electronically Signed: Jakob Reno MD at 19:17 EDT Reading Location ID and State: [facility] / [place] Tel , Service support , Chest X-Ray 03/11/24 18:29 IMPRESSION: No acute cardiopulmonary pathology. Electronically Signed: Jakob Reno MD at 19:19 EDT , CT scan of the brain was obtained. There is no acute intracranial abnormality. There are mild periventricular white matter ischemic changes. This was interpreted by the radiologist and was also independently reviewed by myself. PA and lateral chest x-ray was obtained. There are 2 views. On my independent interpretation, lung gibbons are clear. There is normal cardiac silhouette. Bony thorax is normal. There is no acute process noted. Radiologist also interpreted the x-ray and agrees. EKG Initial EKG: Attestation: I personally reviewed and interpreted this EKG as follows: Interpretation: Atrial Fibrillation (77) Comments: EKG was obtained. On my independent interpretation, shows atrial fibrillation with a rate of 77. QRS interval was normal at 92 ms. QTc interval was normal at 470 ms. [place] was normal at 15. There are no acute ST or T wave changes noted. Prior EKG tracings: available for review Prior: Unchanged (10/15/2023) Treatment and Re-Evaluation :: Patient was given IV fluids. Patient was given a nicotine patch. Patient was feeling better on reevaluation. Patient was advised of his findings. Patient was instructed to follow-up with his primary care physician in 5 to 7 days. Patient was instructed to eat a healthy diet. Patient was instructed to return if worse in any way. Patient understood and was agreeable with the plan. All questions were answered. Discharge Plan Triage Chief Complaint: Syncope ED Provider: Galen Cohen Dx/Rx/DC Orders Clinical Impression: Near syncope, Atrial fibrillation Instructions: ED Near-Fainting, Uncertain Cause Prescriptions: No Action thiamine HCl (vitamin B1) [Vitamin B-1] 100 mg Tablet 100 mg PO DAILYCM Qty: 30 2RF folic acid 1 mg Tablet 1 mg PO DAILY@0800 Qty: 30 3RF losartan 50 mg tablet 50 mg PO DAILY bumetanide 1 mg tablet 1 mg PO BID amiodarone 100 mg tablet 200 mg PO DAILY Eliquis 5 mg tablet 5 mg PO BID Jardiance 10 mg tablet 10 mg PO DAILY Entresto 24-26 mg tablet 1 tab PO BID pyridoxine (vitamin B6) [Vitamin B-6] 25 mg tablet 25 mg PO DAILY cyanocobalamin (vitamin B-12) 1,000 mcg tablet 500 mcg PO DAILY spironolactone 25 mg tablet 25 mg PO DAILY digoxin 125 mcg (0.125 mg) tablet 62.5 mcg PO DAILY fluticasone propion-salmeterol 100-50 mcg/dose blister with device 1 ea inhalation DAILY albuterol sulfate 90 mcg/actuation HFA aerosol inhaler 1 puff inhalation Q4H PRN PRN (Reason: dyspnea) mirtazapine 7.5 mg tablet 7.5 mg PO QHS cholecalciferol (vitamin D3) 25 mcg (1,000 unit) tablet 25 mcg PO DAILY Antacid Calcium 215 mg calcium (500 mg) tablet,chewable 537.5 mg PO DAILY melatonin 3 mg tablet 9 mg PO QHS PRN (Reason: sleep) budesonide-formoterol [Symbicort] 160-4.5 mcg/actuation HFA aerosol inhaler 1 inh inhalation BID Cepacol Sore Throat (kwasi-men) 15-2.6 mg lozenge 1 forest mucous membrane Q2H PRN (Reason: sore throat) One Daily Multi-Vit w-[place]eral 4.5 mg iron tablet 1 tab PO DAILY Primary Care Provider: Rena Springer Referrals: Rena Springer MD [Primary Care Provider] - 5-7 Days Print Language: Pakistani Disposition Disposition: Home, Self Care
[2024-03-11 17:22] VITALS: BP 114/71; PULSE 71; RESP 18; O2SAT 98
--- NOTE | 2024-03-11 17:36 | ED.RN ---
BROTHMELLISSA PHOENIX CALLED AND WAS UPDATED. PHONE NUMBER IS [phone] OR [phone] IF NEEDED TO BE CONTACTED FURTHER
[2024-03-11 17:39] VITALS: BP 118/97; BP 122/88; BP 137/84
--- NOTE | 2024-03-11 17:39 | CT_ITS ---
STUDY: CT BRAIN WITHOUT CONTRAST REASON FOR EXAM: Male, 69 years old. Near syncope RADIATION DOSAGE (If Supplied By Facility): CTDIvol = ( 44.99 ) mGy, DLP = ( 846.73 ) mGycm TECHNIQUE: Transaxial CT imaging of the brain was performed without administration of intravenous contrast material. Individualized dose optimization techniques were used for this CT. COMPARISON: No relevant priors. FINDINGS: Normal soft tissue structures. Normal calvarium. Calcific plaquing of the cavernous carotids Atrophy and mild periventricular white matter ischemic change.. Normal basal ganglia and thalami. Normal brainstem. Normal cerebellum. Incidental finding of cavum septum pellucidum which may be normal developmental variant There is no intracranial hemorrhage. There are no findings of an acute ischemic infarction. Mild mucosal thickening of the right maxillary sinus. Postsurgical changes of the orbits.. CT/Brain/Head without Contrast IMPRESSION: Atrophy and mild periventricular white matter ischemic changes.. No acute bleed. If concern for acute infarct MRI recommended Electronically Signed: Jakob Reno MD at 19:17 EDT ,
[2024-03-11] MEDS: 0.9% Normal Saline (1000mL) 1,000 ML 1000 ML IV (17:46)
[2024-03-11 17:48] LABS: Absolute Lymphocyte Count 0.39 X10^3/uL (0.83-4.51); Absolute Neutrophil Count 7.4 X10^3/uL (2.0-7.7); Basophil# 0.02 X10^3/uL; Basophil% 0.2 % (0-1); Eosinophil# 0.05 X10^3/uL; Eosinophils% 0.6 % (0-5); Hemoglobin 10.9 g/dL (13.0-16.5); Lymphocyte # 0.39 X10^3/ul (0.83-4.51); Lymphocyte % 4.5 % (19-41); Mean Corp Hgb Conc 34.1 g/dL (32-36); Mean Corpuscular Hgb 31.5 pg (27.0-32.0); Mean Corpuscular Volume 92.5 fL (80-94); Mean Platelet Vol. 11.2 fl (6.2-12.0); Monocyte# 0.73 X10^3/uL; Monocyte% 8.5 % (0-10); NRBC Flagged by Analyzer 0 % (0-5); Neutrophil # 7.38 X10^3/uL (2.7-7.7); Neutrophil % 85.9 % (47-70); POSITIVE DIFFERENTIAL YES; Platelet Count 228 K/mm3 (150-450); RBC Distribution Width SD 43.8 fl (35.1-43.9); Red Blood Count 3.46 M/mm3 (4.6-6.2); White Blood Count 8.6 K/mm3 (4.4-11.0)
[2024-03-11 18:04] LABS: Bacteria 0 SEEN /hpf (None Seen); Mucous, Urine 0 SEEN /hpf (<or=2+); Red Blood Cells-Urine 0 SEEN /hpf (0-5); White Blood Cells 0 SEEN /hpf (0-5)
[2024-03-11 18:08] LABS: AST(SGOT) 18 U/L (15-37); Alanine Aminotransfer ALT/SGPT 23 U/L (16-61); Albumin, Serum 3.3 g/dL (3.2-5.0); Alkaline Phosphatase 87 U/L (45-117); Anion Gap 6 (5-15); BUN 18 mg/dL (7-18); BUN/Creat Ratio 12.1 RATIO (10-20); Calcium,Total 9.3 mg/dL (8.5-10.1); Chloride 99 mmol/L (98-107); Creatinine, Serum 1.49 mg/dL (0.70-1.30); EST Glomerular Filtration Rate 50 mL/min (>60); Est Glom Filt Rate - Afr Amer 60 mL/min (>60); Globulin 3.4 g/dL (2.2-4.2); Glucose 133 mg/dL (74-106); Potassium 4.2 mmol/L (3.5-5.1); Protein, Total 6.7 g/dL (6.4-8.2); Sodium Level 132 mmol/L (136-145); Troponin-I HS (w/2H Reflex) 8 pg/mL (3.0-78.0)
[2024-03-11 18:16] LABS: Differential Indicated SCAN CRITERIA MET
[2024-03-11 18:23] LABS: Color, Urine Yellow (Yellow); Glucose, Dipstick Normal (Normal); Ketone-Dipstick 5 mg/dl (Negative); Leukocyte Esterase-Dipstick Negative /ul (Negative); Nitrite-Dipstick Negative (Negative); Occult Blood-Urine Negative /ul (Negative); Protein-Dipstick Negative (Negative); Urine Bilirubin Dipstick Negative (Negative); Urine Clarity Sl. Cloudy (Clear); Urine Urobilinogen Normal (Normal); Urine pH 6.5 (5.0 - 8.0)
[2024-03-11 18:24] LABS: Anisocytosis RARE; Macrocytosis RARE; Platelet Estimate ADEQUATE (ADEQ); Red Cell Morphology N CHROM NORMAL (NORM C&C)
--- NOTE | 2024-03-11 18:29 | RAD_ITS ---
STUDY: X-RAY CHEST REASON FOR EXAM: Male, 69 years old. Near syncope TECHNIQUE: PA and lateral COMPARISON: October 14, 2023 FINDINGS: The lungs are clear and expanded. There is no demonstrated pleural abnormality. Normal size heart. Normal mediastinum and yan. Normal visualized pulmonary arteries. Mildly calcified aortic arch and descending thoracic aorta. Dorsal spine and shoulders demonstrate degenerative changes. Normal visualized ribs, and clavicles.. There is no demonstrated abnormality of the visualized soft tissue structures of the upper abdomen. RAD/Chest PA and Lateral IMPRESSION: No acute cardiopulmonary pathology. Electronically Signed: Jakob Reno MD at 19:19 EDT ,
[2024-03-11 18:33] LABS: Squamous Epithelial Cells - UA 0-5 SEEN /hpf (0-5)
[2024-03-11 18:55] VITALS: BP 137/84; PULSE 81; RESP 19; O2SAT 98
--- NOTE | 2024-03-11 19:38 | ED.RN ---
1927: I CALLED LAB ABOUT SECOND TROPONIN. I WAS INFORMED THAT IT WAS RUNNING STILL. 1929: I CALLED LAB BACK D/T NOT SEEING PENDING RESULTS. I WAS INFORMED THEY DID NOT HAVE IT AND THEY FORGOT TO SEND A LABEL, THE BLOOD WOULD NEED REDRAWN. DELAY IN PATIENT CARE. DOCTOR AND PATIENT NOTIFIED.
[2024-03-11 19:44] LABS: Reflex Troponin-HS? (from REC) Y
[2024-03-11 20:36] LABS: Troponin-I HS 8 pg/mL (3.0-78.0)
[2024-03-11 21:00] VITALS: BP 148/83; PULSE 81
[2024-03-11 21:27] VITALS: BP 148/83; PULSE 81; RESP 16; TEMP 36.2; O2SAT 100
== END 2024-03-11 21:28 | disposition home or self-care (01) ==
PROVIDERS: Emergency Provider Emergency Medicine; PCP Family Medicine; Visit Provider Emergency Medicine
DX: R55 Syncope and collapse (principal); J44.9 Chronic obstructive pulmonary disease, unspecified; I48.91 Unspecified atrial fibrillation; F17.210 Nicotine dependence, cigarettes, uncomplicated; F17.220 Nicotine dependence, chewing tobacco, uncomplicated
CPT/HCPCS: 70450; 71046; 80053; 81001; 82962; 84484; 85025; 87631; 93005; 96360; 99283; J7030; A4216

== ENCOUNTER 2024-04-09 16:51 | Emergency (ER) | payer MEDICARE, SELFPAY ==
[2024-04-09 16:53] VITALS: BP 123/71; PULSE 79; RESP 12; TEMP 36.1; O2SAT 98; BMI 22.2
--- NOTE | 2024-04-09 17:04 | EKG12_ITS ---
Test Reason : WEAKNESS Blood Pressure : / mmHG Vent. Rate : 080 BPM Atrial Rate : 000 BPM P-R Int : 000 ms QRS Dur : 098 ms QT Int : 412 ms P-R-T Axes : 000 039 069 degrees QTc Int : 475 ms Atrial fibrillation Nonspecific T wave abnormality Prolonged QT Abnormal ECG Confirmed by LOVELY BERNAL, MARTITA ([id number]), supervising editor trailer LOUIS IZQUIERDO ([id number]) on 04/11/2024 7:58:24 AM Referred By: Confirmed By:MARTITA MURRY MD
--- NOTE | 2024-04-09 17:05 | EX.ED.DYSGE1 ---
HPI History of Present Illness Chief Complaint: Syncope Detail of Chief Complaint: Near syncope Informant: patient Narrative Narrative: Patient presents to the emergency department via EMS. Patient states that he was at [facility] where he was standing in line and started feeling lightheaded. Next thing he knows he was on the floor. He denies losing consciousness. Patient states that oftentimes if he gets up too quickly from a off the couch he will feel lightheaded. He denies recent illness. He denies chest pain or shortness of breath. Denies palpitations. Just minimally lightheaded currently. Patient has history of A-fib but has been noncompliant with his medications. He does not think he is on any blood thinners. Patient tells me he was in alf for a few months 3 to 4 weeks ago. He had abused alcohol in the past but he states he gave it up 5 or 6 months ago. PFSH PFSH Medical History A-fib Malnutrition Pulmonary mass CHI (closed head injury) Substance abuse Anxiety Depression Smoker COPD (chronic obstructive pulmonary disease) Irregular heart beat Hypertension Behavior concern in adult At high risk for malnutrition Mass of left lung Hyponatremia Alcohol withdrawal Acute blood loss anemia GI bleed Chewing tobacco use History of cancer tonsil Anxiety and depression ETOH abuse Home Medications ?Medication ?Instructions ?Recorded ?Last Taken ?Type folic acid 1 mg tablet 1 mg PO DAILY@0800 #30 tabs 05/30/23 Unknown Rx thiamine HCl (vitamin B1) 100 mg 100 mg PO DAILYCM #30 tabs 05/30/23 Unknown Rx tablet (Vitamin B-1) albuterol sulfate 90 mcg/actuation 1 puff inhalation Q4H PRN PRN 10/14/23 Unknown History aerosol inhaler dyspnea amiodarone 100 mg tablet 200 mg PO DAILY 10/14/23 Unknown History apixaban 5 mg tablet (Eliquis) 5 mg PO BID 10/14/23 Unknown History bumetanide 1 mg tablet 1 mg PO BID 10/14/23 Unknown History calcium carbonate (Antacid Calcium) 537.5 mg PO DAILY 10/14/23 Unknown History cholecalciferol (vitamin D3) 25 25 mcg PO DAILY 10/14/23 Unknown History mcg (1,000 unit) tablet cyanocobalamin (vitamin B-12) 500 mcg PO DAILY 10/14/23 Unknown History 1,000 mcg tablet digoxin 125 mcg (0.125 mg) tablet 62.5 mcg PO DAILY 10/14/23 Unknown History empagliflozin 10 mg tablet 10 mg PO DAILY diabetes mellitus 10/14/23 Unknown History (Jardiance) fluticasone 100 mcg-salmeterol 50 1 ea inhalation DAILY 10/14/23 Unknown History mcg/dose blistr powdr for inhalation losartan 50 mg tablet 50 mg PO DAILY blood pressure 10/14/23 Unknown History mirtazapine 7.5 mg tablet 7.5 mg PO QHS depressive disorder 10/14/23 Unknown History pyridoxine (vitamin B6) 25 mg 25 mg PO DAILY anemia 10/14/23 Unknown History tablet (Vitamin B-6) sacubitril 24 mg-valsartan 26 mg 1 tab PO BID 10/14/23 Unknown History tablet (Entresto) spironolactone 25 mg tablet 25 mg PO DAILY blood pressure 10/14/23 Unknown History benzocaine 15 mg-menthol 2.6 mg 1 forest mucous membrane Q2H PRN sore 10/15/23 Unknown History lozenges (Cepacol Sore Throat throat (benzocaine-menthol)) budesonide-formoterol HFA 160 1 inh inhalation BID SHORTNESS OF 10/15/23 Unknown History mcg-4.5 mcg/actuation aerosol BREATH inhaler (Symbicort) melatonin 3 mg tablet 9 mg PO QHS PRN sleep 10/15/23 Unknown History multivitamin with minerals-ferrous 1 tab PO DAILY SUPPLEMENT 10/15/23 Unknown History sulfate 4.5 mg iron tablet (One Daily Multivitamins with Minerals) Allergy/AdvReac Type Severity Reaction Status Date / Time poison mike extract Allergy Mild RASH Verified 03/11/24 15:22 Family History Mother Diabetes Father Diabetes Brother Colon cancer Surgical History History of tonsillectomy and adenoidectomy Social History household members: other details: Lives with his son. Smoking Status: Current some day smoker tobacco type: cigarettes and smokeless tobacco Smokeless tobacco user: chewing tobacco and other alcohol intake: current alcohol intake frequency: 3 or more drinks per day details: 8-10 beers daily coupled with hard liquor. substance use type: does not use ROS ROS ED ROS Narrative Near syncope Review of Systems ROS Unobtainable: other Constitutional Constitutional ED: Reports lethargy; Denies chills, fever(s), sweats or weight loss Eyes Eyes: Denies blurry vision, change in vision or diplopia ENT ENT ED: Denies rhinorrhea or sore throat Cardiovascular Cardiovascular: Denies chest pain, orthopnea or racing heartbeat Respiratory/Chest Respiratory/Chest: Denies cough, dyspnea, dyspnea on exertion, orthopnea or sputum Gastrointestinal Gastrointestinal: Denies abdominal pain, diarrhea, nausea or vomiting Genitourinary Genitourinary ED: Denies dysuria, hematuria or urinary frequency Musculoskeletal Musculoskeletal: Denies arthralgias, back pain, myalgias or neck pain Integumentary Denies abscess, Abrasions or rash Neurologic Neurologic: Reports other Details: Lightheadedness ; Denies headache(s) or weakness Psychiatric Psychiatric: Denies anxiety, depression or suicidal thoughts Endocrine Endocrinology: Denies polydipsia, polyphagia or polyuria Hematologic/Lymphatic Hematologic/Lymphatic: Denies easy bleeding, easy bruising or lymphadenopathy Allergic/Immunologic Allergic/Immunologic ED: Denies mouth swelling, tongue swelling or urticaria EXAM Physical Exam Const Vital Signs: 04/09/24 16:53 04/09/24 16:56 04/09/24 17:27 Temperature 97.0 F L Temperature Source Temporal Pulse Rate 79 Pulse Rate [Lying] 84 Pulse Rate [Sitting (for 1 minute prior to obtaining)] 85 Pulse Rate [Standing (for 1 minute prior to obtaining)] 87 Respiratory Rate 12 Respiratory Effort Normal Non-Labored Respiratory Pattern Normal Blood Pressure 123/71 H Blood Pressure [Lying] 108/69 Blood Pressure [Sitting (for 1 minute prior to obtaining)] 113/71 Blood Pressure [Standing (for 1 minute prior to obtaining)] 97/65 Blood Pressure Mean 88 Blood Pressure Mean [Lying] 82 Blood Pressure Mean [Sitting (for 1 minute prior to obtaining)] 85 Blood Pressure Mean [Standing (for 1 minute prior to obtaining)] 75 Pulse Ox 98 Oxygen Delivery Method Room Air Oxygen Flow Rate (L/min) 04/09/24 18:52 04/09/24 19:43 Temperature Temperature Source Pulse Rate 77 Pulse Rate [Lying] 114 H Pulse Rate [Sitting (for 1 minute prior to obtaining)] 102 H Pulse Rate [Standing (for 1 minute prior to obtaining)] 97 Respiratory Rate 20 H Respiratory Effort Respiratory Pattern Blood Pressure 137/84 H Blood Pressure [Lying] 143/93 H Blood Pressure [Sitting (for 1 minute prior to obtaining)] 146/82 H Blood Pressure [Standing (for 1 minute prior to obtaining)] 127/71 H Blood Pressure Mean 101 Blood Pressure Mean [Lying] 109 Blood Pressure Mean [Sitting (for 1 minute prior to obtaining)] 103 Blood Pressure Mean [Standing (for 1 minute prior to obtaining)] 89 Pulse Ox 98 Oxygen Delivery Method Nasal Cannula Oxygen Flow Rate (L/min) 3 Positive well nourished and well developed General Appearance ED: well developed and NAD HEENT Reports TM's clear and moist mucous membranes normocephalic and atraumatic; Negative for trauma or tenderness Tympanic Membrane ED: Yes TM's clear Eyes PERRL and EOMs intact bilaterally General Eye ED: Negative for pale conjunctiva or scleral icterus Neck no lymphadenopathy, supple and no JVD General: Negative for tenderness Chest Wall inspection of chest normal and palpation of chest normal Chest: Negative for tenderness Resp normal respiratory effort and clear to auscultation bilaterally Effort and Inspection: Negative for respiratory distress or pain with movement Auscultation: Negative for rhonchi, wheezes or diminished lung sounds Cardio S1 normal heart sound, S2 normal heart sound and no murmurs Rhythm: abnormal rhythm irregularly irregular Peripheral Pulses: pulses 2+ throughout GI normal to inspection, nondistended, normoactive bowel sounds, soft to palpation, non-tender, non-distended and no masses Back/Spine no CVA tenderness and no thoracic nor lumbar tenderness Extremity normal to inspection General Extremety ED: Negative for edema General Extremity: Negative for edema Neuro oriented x3, CN's II-XII intact bilaterally, no sensory deficits noted and gait normal Neuro Narrative: Hallpike maneuver performed was negative for nystagmus. Patient had no ataxia on exam with [id number] and heel mera testing. Sensorium / Orientation: awake, alert, oriented to person, oriented to place and oriented to time Motor Exam: strength 5/5 throughout and strength abnormal Psych mental status grossly normal Skin no rashes or lesions noted and no wounds MDM MDM MDM Narrative Medical decision making narrative: Patient presents to the emergency department with complaint lightheadedness and near syncope. He has had episodes like this in the past. Clinically looks well. No evidence of trauma on exam. In the differential would be orthostatic hypotension or vasovagal type near syncope. Also entertain possibility of cardiac dysrhythmia. Neurologically intact no evidence for stroke. No evidence for ataxia. IV line established. EKG obtained arrival showed atrial fibrillation with ventricular rate of [address] changes and a prolonged QT of 412. CBC with differential white count of 4.6 with hemoglobin 11.1 and platelet count of 225. Chemistries unremarkable. BUN was 15 and creatinine 1.6. Troponin normal at 5. Alcohol was less than 3. Patient received 2 L of fluid. Repeat exam at 710 shows him to be in good spirits and has essentially no complaints at rest. Will repeat orthostatics. Will discharge to home if orthostatics negative. Repeat orthostatics were normal. Patient had no difficulty ambulating in the department and is not complaining of any dizziness or any type of symptoms. Lab Data Attestation: I reviewed the patient's lab results. Labs: Laboratory Results - last 24 hr 04/09/24 17:05 WBC 4.6 RBC 3.57 L Hgb 11.1 L Hct 32.7 L MCV 91.6 MCH 31.1 MCHC 33.9 RDW Std Deviation 42.2 RDW Coeff of Jesus 12.6 Plt Count 225 MPV 10.1 Immature Gran % (Auto) 0.600 Neut % (Auto) 81.3 H Lymph % (Auto) 9.3 L [place] % (Auto) 6.9 Eos % (Auto) 1.3 Baso % (Auto) 0.6 Absolute Neuts (auto) 3.8 Absolute Lymphs (auto) 0.43 L Nucleated RBC % 0 Sodium 129 L Potassium 4.8 Chloride 99 Carbon Dioxide 24.0 Anion Gap 6 BUN 15 Creatinine 1.60 H Estim Creat Clear Calc 43.94 Est GFR (MDRD) Af Amer 56 L Est GFR (MDRD) Non-Af 46 L BUN/Creatinine Ratio 9.4 L Glucose 125 H Calcium 8.8 Troponin I High Sens 5 Digoxin 0.06 L Ethyl Alcohol < 3.0 EKG Initial EKG: Attestation: I personally reviewed and interpreted this EKG as follows: Comments: Atrial fibrillation with rate of [address] changes Discharge Plan Triage Chief Complaint: Syncope ED Provider: Bhavya Larson Dx/Rx/DC Orders Clinical Impression: Dizziness, Near syncope Instructions: ED Dizziness, Uncertain Cause, ED Near-Fainting, Uncertain Cause Prescriptions: No Action thiamine HCl (vitamin B1) [Vitamin B-1] 100 mg Tablet 100 mg PO DAILYCM Qty: 30 2RF folic acid 1 mg Tablet 1 mg PO DAILY@0800 Qty: 30 3RF losartan 50 mg tablet 50 mg PO DAILY bumetanide 1 mg tablet 1 mg PO BID amiodarone 100 mg tablet 200 mg PO DAILY Eliquis 5 mg tablet 5 mg PO BID Jardiance 10 mg tablet 10 mg PO DAILY Entresto 24-26 mg tablet 1 tab PO BID pyridoxine (vitamin B6) [Vitamin B-6] 25 mg tablet 25 mg PO DAILY cyanocobalamin (vitamin B-12) 1,000 mcg tablet 500 mcg PO DAILY spironolactone 25 mg tablet 25 mg PO DAILY digoxin 125 mcg (0.125 mg) tablet 62.5 mcg PO DAILY fluticasone propion-salmeterol 100-50 mcg/dose blister with device 1 ea inhalation DAILY albuterol sulfate 90 mcg/actuation HFA aerosol inhaler 1 puff inhalation Q4H PRN PRN (Reason: dyspnea) mirtazapine 7.5 mg tablet 7.5 mg PO QHS cholecalciferol (vitamin D3) 25 mcg (1,000 unit) tablet 25 mcg PO DAILY Antacid Calcium 215 mg calcium (500 mg) tablet,chewable 537.5 mg PO DAILY melatonin 3 mg tablet 9 mg PO QHS PRN (Reason: sleep) budesonide-formoterol [Symbicort] 160-4.5 mcg/actuation HFA aerosol inhaler 1 inh inhalation BID Cepacol Sore Throat (kwasi-men) 15-2.6 mg lozenge 1 forest mucous membrane Q2H PRN (Reason: sore throat) One Daily Multi-Vit w-Mineral 4.5 mg iron tablet 1 tab PO DAILY Primary Care Provider: Rena Springer Referrals: Rena Springer MD [Primary Care Provider] - 3-5 Days Print Language: Spanish Disposition Disposition: Home, Self Care
[2024-04-09] MEDS: 0.9% Normal Saline (1000mL) 1,000 ML 1000 ML IV (17:09)
[2024-04-09 17:18] LABS: Absolute Lymphocyte Count 0.43 X10^3/uL (0.83-4.51); Absolute Neutrophil Count 3.8 X10^3/uL (2.0-7.7); Basophil# 0.03 X10^3/uL; Basophil% 0.6 % (0-1); Eosinophil# 0.06 X10^3/uL; Eosinophils% 1.3 % (0-5); Hematocrit 32.7 % (40-54); Hemoglobin 11.1 g/dL (13.0-16.5); Lymphocyte # 0.43 X10^3/ul (0.83-4.51); Lymphocyte % 9.3 % (19-41); Mean Corp Hgb Conc 33.9 g/dL (32-36); Mean Corpuscular Hgb 31.1 pg (27.0-32.0); Mean Corpuscular Volume 91.6 fL (80-94); Mean Platelet Vol. 10.1 fl (6.2-12.0); Monocyte# 0.32 X10^3/uL; Monocyte% 6.9 % (0-10); NRBC Flagged by Analyzer 0 % (0-5); Neutrophil # 3.75 X10^3/uL (2.7-7.7); Neutrophil % 81.3 % (47-70); POSITIVE DIFFERENTIAL YES; Platelet Count 225 K/mm3 (150-450); RBC Distribution Width CV 12.6 % (11.6-14.6); RBC Distribution Width SD 42.2 fl (35.1-43.9); Red Blood Count 3.57 M/mm3 (4.6-6.2); White Blood Count 4.6 K/mm3 (4.4-11.0)
[2024-04-09 17:27] VITALS: BP 108/69; BP 113/71; BP 97/65; PULSE 84; PULSE 85; PULSE 87
[2024-04-09 17:49] LABS: Alcohol, Blood (Medical)-Serum < 3.0 mg/dL; Digoxin Level 0.06 ng/mL (0.80-2.00)
[2024-04-09 17:58] LABS: Anion Gap 6 (5-15); BUN 15 mg/dL (7-18); BUN/Creat Ratio 9.4 RATIO (10-20); Calcium,Total 8.8 mg/dL (8.5-10.1); Chloride 99 mmol/L (98-107); EST Glomerular Filtration Rate 46 mL/min (>60); Est Glom Filt Rate - Afr Amer 56 mL/min (>60); Estimated Creatinine Clearance 43.94 ml/min; Glucose 125 mg/dL (74-106); Potassium 4.8 mmol/L (3.5-5.1); Sodium Level 129 mmol/L (136-145); Troponin-I HS 5 pg/mL (3.0-78.0)
[2024-04-09] MEDS: 0.9% Normal Saline (1000mL) 1,000 ML 999 ML IV (18:36)
[2024-04-09 18:52] VITALS: BP 137/84; PULSE 77; RESP 20; O2SAT 98
[2024-04-09 19:43] VITALS: BP 127/71; BP 143/93; BP 146/82; PULSE 102; PULSE 114; PULSE 97
== END 2024-04-09 20:03 | disposition home or self-care (01) ==
PROVIDERS: Emergency Provider Emergency Medicine; PCP Family Medicine; Visit Provider Emergency Medicine
DX: R42 Dizziness and giddiness (principal); J44.9 Chronic obstructive pulmonary disease, unspecified; F17.210 Nicotine dependence, cigarettes, uncomplicated; F17.220 Nicotine dependence, chewing tobacco, uncomplicated
CPT/HCPCS: 80048; 80162; 82077; 84484; 85025; 93005; 99285; J7030; A4216

== ENCOUNTER 2024-07-08 17:26 | Emergency (ER) | payer MEDICARE, SELFPAY ==
[2024-07-08] VITALS (9 sets, daily range): BP systolic 93–167; BP diastolic 64–109; PULSE 78–155; RESP 12–20; TEMP 36.9; O2SAT 95–100; BMI 23.0
--- NOTE | 2024-07-08 18:37 | CT_ITS ---
STUDY: CT BRAIN WITHOUT CONTRAST REASON FOR EXAM: Male, 69 years old. Injury/Pain RADIATION DOSAGE (If Supplied By Facility): CTDIvol = ( 44.99 ) mGy, DLP = ( 846.73 ) mGycm TECHNIQUE: Transaxial CT imaging of the brain was performed without administration of intravenous contrast material. Individualized dose optimization techniques were used for this CT. COMPARISON: March 11, 2024 FINDINGS: There is frontal soft tissue swelling. Normal calvarium. There is mild cerebral atrophy with widening of the extra-axial spaces and ventricular dilatation. There are areas of decreased attenuation within the white matter tracts of the supratentorial brain, consistent with microvascular disease changes. Normal basal ganglia and thalami. Normal brainstem. Normal cerebellum. There is no intracranial hemorrhage. There are no findings of an acute ischemic infarction. Normal visualized paranasal sinuses. CT/Brain/Head without Contrast IMPRESSION: Chronic involutional changes of the brain. Soft tissue swelling. No hemorrhage. Electronically Signed: Home Gray MD at 20:25 EST ,
[2024-07-08] MEDS: Lidocaine/Epi/Tetracaine 50 ML 1 APPLIC TOPICAL (18:48)
[2024-07-08] MEDS: Diphth,Pertuss(Acell),Tet Vac 0.5 ML Vial IM (18:48)
[2024-07-08] MEDS: Lidocaine 1% /Epi 1:100 (20ml) 20 ML Vial INFILT (18:49)
--- NOTE | 2024-07-08 18:52 | EDS_ITS ---
HPI History of Present Illness Chief Complaint: Laceration Informant: patient Onset/Context/Timing Onset: Today Mechanism/Context: Fall Quality of Pain: Dull Current Severity: Gone Worsened by: Nothing Relieved by: Nothing Associated Symptoms Associated Symptoms: Negative for Parasthesias, Weakness, Loss of function, Inability to ambulate, Loss of consciousness or Amnesia Narrative Narrative: Patient presents with forehead laceration that occurred today. Patient states he lost his balance and fell. Patient states he hit his head. Patient denies any loss of consciousness. Patient is unsure of his last tetanus. Patient states he has a laceration above his right eyebrow and in his forehead. Patient denies any epistaxis. Patient denies any neck pain. Patient denies any visual changes. Patient denies any nausea or vomiting. Tetanus Immunization: Unknown PFSH PFS Medical History A-fib Malnutrition Pulmonary mass CHI (closed head injury) Substance abuse Anxiety Depression Smoker COPD (chronic obstructive pulmonary disease) Irregular heart beat Hypertension Behavior concern in adult At high risk for malnutrition Mass of left lung Hyponatremia Alcohol withdrawal Acute blood loss anemia GI bleed Chewing tobacco use History of cancer tonsil Anxiety and depression ETOH abuse Home Medications ?Medication ?Instructions ?Recorded ?Last Taken ?Type folic acid 1 mg tablet 1 mg PO DAILY@0800 #30 tabs 05/30/23 Unknown Rx thiamine HCl (vitamin B1) 100 mg 100 mg PO DAILYCM #30 tabs 05/30/23 Unknown Rx tablet (Vitamin B-1) albuterol sulfate 90 mcg/actuation 1 puff inhalation Q4H PRN PRN 10/14/23 Unknown History aerosol inhaler dyspnea amiodarone 100 mg tablet 200 mg PO DAILY 10/14/23 Unknown History apixaban 5 mg tablet (Eliquis) 5 mg PO BID 10/14/23 Unknown History bumetanide 1 mg tablet 1 mg PO BID 10/14/23 Unknown History calcium carbonate (Antacid Calcium) 537.5 mg PO DAILY 10/14/23 Unknown History cholecalciferol (vitamin D3) 25 25 mcg PO DAILY 10/14/23 Unknown History mcg (1,000 unit) tablet cyanocobalamin (vitamin B-12) 500 mcg PO DAILY 10/14/23 Unknown History 1,000 mcg tablet digoxin 125 mcg (0.125 mg) tablet 62.5 mcg PO DAILY 10/14/23 Unknown History empagliflozin 10 mg tablet 10 mg PO DAILY diabetes mellitus 10/14/23 Unknown History (Jardiance) fluticasone 100 mcg-salmeterol 50 1 ea inhalation DAILY 10/14/23 Unknown History mcg/dose blistr powdr for inhalation losartan 50 mg tablet 50 mg PO DAILY blood pressure 10/14/23 Unknown History mirtazapine 7.5 mg tablet 7.5 mg PO QHS depressive disorder 10/14/23 Unknown History pyridoxine (vitamin B6) 25 mg 25 mg PO DAILY anemia 10/14/23 Unknown History tablet (Vitamin B-6) sacubitril 24 mg-valsartan 26 mg 1 tab PO BID 10/14/23 Unknown History tablet (Entresto) spironolactone 25 mg tablet 25 mg PO DAILY blood pressure 10/14/23 Unknown History benzocaine 15 mg-menthol 2.6 mg 1 forest mucous membrane Q2H PRN sore 10/15/23 Unknown History lozenges (Cepacol Sore Throat throat (benzocaine-menthol)) budesonide-formoterol HFA 160 1 inh inhalation BID SHORTNESS OF 10/15/23 Unknown History mcg-4.5 mcg/actuation aerosol BREATH inhaler (Symbicort) melatonin 3 mg tablet 9 mg PO QHS PRN sleep 10/15/23 Unknown History multivitamin with minerals-ferrous 1 tab PO DAILY SUPPLEMENT 10/15/23 Unknown History sulfate 4.5 mg iron tablet (One Daily Multivitamins with Minerals) Allergy/AdvReac Type Severity Reaction Status Date / Time poison mike extract Allergy Mild RASH Verified 07/08/24 17:32 Family History Mother Diabetes Father Diabetes Brother Colon cancer Surgical History History of tonsillectomy and adenoidectomy Social History household members: other details: Lives with his son. Smoking Status: Current some day smoker tobacco type: smokeless tobacco Smokeless tobacco user: chewing tobacco and other alcohol intake: current alcohol intake frequency: 3 or more drinks per day details: 8-10 beers daily coupled with hard liquor. substance use type: does not use ROS ROS ED Constitutional Constitutional ED: Denies chills or fever(s) ENT ENT ED: Denies rhinorrhea or sore throat Cardiovascular Cardiovascular: Denies chest pain or palpitations Respiratory/Chest Respiratory/Chest: Denies cough or dyspnea Gastrointestinal Gastrointestinal: Denies nausea or vomiting Genitourinary Genitourinary ED: Reports urinary frequency; Denies dysuria or hematuria Musculoskeletal Musculoskeletal: Denies back pain or neck pain Integumentary Denies abscess or rash Neurologic Neurologic: Reports headache(s); Denies weakness Allergic/Immunologic Allergic/Immunologic ED: Denies mouth swelling or urticaria EXAM Physical Exam Const Vital Signs: 07/08/24 17:28 07/08/24 19:30 07/08/24 21:11 Temperature 98.5 F Temperature Source Oral Pulse Rate 78 92 139 H Pulse Rate [Lying] Pulse Rate [Sitting (for 1 minute prior to obtaining)] Pulse Rate [Standing (for 1 minute prior to obtaining)] Respiratory Rate 16 18 16 Blood Pressure 110/68 99/86 H 128/105 H Blood Pressure [Lying] Blood Pressure [Sitting (for 1 minute prior to obtaining)] Blood Pressure [Standing (for 1 minute prior to obtaining)] Blood Pressure Mean 82 90 112 Blood Pressure Mean [Lying] Blood Pressure Mean [Sitting (for 1 minute prior to obtaining)] Blood Pressure Mean [Standing (for 1 minute prior to obtaining)] Pulse Ox 95 99 98 Oxygen Delivery Method Room Air Room Air 07/08/24 21:44 07/08/24 22:58 Temperature Temperature Source Pulse Rate 131 H Pulse Rate [Lying] 140 H Pulse Rate [Sitting (for 1 minute prior to obtaining)] 150 H Pulse Rate [Standing (for 1 minute prior to obtaining)] 155 H Respiratory Rate 13 Blood Pressure 99/64 Blood Pressure [Lying] 135/88 H Blood Pressure [Sitting (for 1 minute prior to obtaining)] 131/109 H Blood Pressure [Standing (for 1 minute prior to obtaining)] 127/89 H Blood Pressure Mean 75 Blood Pressure Mean [Lying] 103 Blood Pressure Mean [Sitting (for 1 minute prior to obtaining)] 116 Blood Pressure Mean [Standing (for 1 minute prior to obtaining)] 101 Pulse Ox 99 Oxygen Delivery Method Positive well nourished and well developed General Appearance ED: well developed and NAD HEENT HEENT Narrative: There is a 2.5 cm full-thickness irregular linear laceration over the right eyebrow. There is also a 1 cm full-thickness curvilinear laceration over the forehead near the midline. There is mild gapping of the wound margins. There is no bony crepitance or step-off. There are no foreign bodies noted. There is mild bleeding noted. There is also a superficial abrasion on the bridge of the nose. There is no bleeding noted from that. There is no septal deviation or septal hematoma. There is no bony crepitance or step-off of the nasal bones. trauma Eyes PERRL and EOMs intact bilaterally Neck full ROM Chest Wall inspection of chest normal and palpation of chest normal Resp normal respiratory effort and clear to auscultation bilaterally Cardio regular rhythm Rate: regular rate GI non-tender and non-distended Palpation: soft Extremity full ROM General Extremety ED: Negative for deformity General Extremity: Negative for deformity Neuro oriented x3, CN's II-XII intact bilaterally, moves all extremities, no focal motor deficits and no sensory deficits noted Beaufort Coma Scale: document GCS findings Spontaneous Obeys Commands Oriented 15 Sensorium / Orientation: alert Motor Exam: strength 5/5 throughout PROC Procedures Lacerations Right eyebrow: Length: 2.5 cm Depth: Sub Q Shape: Linear Prep: Sterile Conditions and Chlorhexadine Laceration repair: Irrigated, Lidocaine with epi, Local, Skin sutures and Wound explored Irrigated (ml): 100 Number of Sutures/Adams: 5 Suture Information: Ethilon, Simple and 6-0 Forehead: Length: 1 cm Depth: Skin Shape: Linear Prep: Sterile Conditions and Chlorhexadine Laceration repair: Irrigated, Lidocaine with epi, Local and Wound explored Irrigated (ml): 100 Number of Sutures/Jacky: 2 Suture Information: Ethilon MDM MDM MDM Narrative Medical decision making narrative: Differential diagnosis includes intracranial bleeding, scalp laceration, and closed head injury. CT scan of the brain will be obtained to assess for intracranial bleeding. Lab Data Labs: Laboratory Results - last 24 hr 07/08/24 21:43 WBC 8.2 RBC 4.14 L Hgb 13.5 Hct 38.6 L MCV 93.2 MCH 32.6 H MCHC 35.0 RDW Std Deviation 48.1 H RDW Coeff of Jesus 14.1 Plt Count 338 MPV 9.4 Immature Gran % (Auto) 0.600 Neut % (Auto) 84.8 H Lymph % (Auto) 5.2 L Meade % (Auto) 8.8 Eos % (Auto) 0.0 Baso % (Auto) 0.6 Absolute Neuts (auto) 7.0 Absolute Lymphs (auto) 0.43 L Nucleated RBC % 0 Sodium 130 L Potassium 4.4 Chloride 94 L Carbon Dioxide 24.0 Anion Gap 12 BUN 19 H Creatinine 1.33 H Estim Creat Clear Calc 54.81 Est GFR (MDRD) Af Amer 69 Est GFR (MDRD) Non-Af 57 L BUN/Creatinine Ratio 14.3 Glucose 72 L Calcium 9.1 Troponin I High Sens 11 Ethyl Alcohol 134.0 Radiography Diagnostic Testing: Clinical Impression(s) from Imaging Studies Brain CT 07/08/24 18:37 IMPRESSION: Chronic involutional changes of the brain. Soft tissue swelling. No hemorrhage. Electronically Signed: Home Gray MD at 20:25 EST , Brain CT 07/08/24 21:09 IMPRESSION: Chronic involutional changes of the brain. Soft tissue swelling. No hemorrhage. Stable appearance. Electronically Signed: Home Gray MD at 23:08 EST , CT scan of the brain was obtained. There is no acute intracranial abnormality. There are chronic involutional changes noted. This was interpreted by the radiologist and was also independently reviewed by myself. EKG Initial EKG: Attestation: I personally reviewed and interpreted this EKG as follows: Interpretation: No Acute Injury Pattern and Atrial Fibrillation (119) Comments: EKG was ordered by the nursing protocol. On my independent interpretation it shows atrial fibrillation with a rate of 119. QRS interval was normal at 92 ms. QTc interval was normal at 467 ms. Jenners was normal at 56. There are no acute ST or T wave changes noted. Prior EKG tracings: available for review Prior: Unchanged (04/09/2024) Treatment and Re-Evaluation Narrative: Patient was given a tetanus booster. The wound was cleaned and irrigated with copious amounts of normal saline. The wound was anesthetized with 1% lidocaine with epinephrine locally. The wound over the right eyebrow was closed with 5 simple interrupted #6-0 nylon sutures under sterile technique. The wound over the forehead in the midline was closed with 2 simple interrupted #6-0 nylon sutures under sterile technique. Patient tolerated the procedure well. Bacitracin dressing was applied. Patient was instructed to keep the wounds cl lashae and dry. Patient was instructed to follow-up with his primary care physician in 5 days for wound recheck and suture removal. Patient understood and was agreeable with the plan. All questions were answered. Patient was discharged and was waiting for his ride in the waiting room. Patient was up walking and then fell. Patient was helped into a wheelchair and was brought back into the room. Patient denies any new injuries. Patient denies any chest pain. Patient states he did feel lightheaded prior to falling. Because of this, further laboratory testing will be obtained. CBC will be obtained to assess for leukocytosis and anemia. Basic metabolic profile will be obtained to assess for electrolyte abnormality and renal function. Serum alcohol level will be obtained to assess for alcohol intoxication. High- sensitivity troponin will be obtained to assess for cardiac ischemia. Repeat CT scan of the brain will be obtained to assess for intracranial bleeding. Patient was given a GI cocktail. CBC was reviewed and was within normal limits. Basic metabolic profile was reviewed. Creatinine was slightly elevated at 1.33 and BUN was slightly elevated at 19. Sodium was slightly low at 130 and chloride was slightly low at 94. These were all consistent with previous results. High-sensitivity troponin was reviewed and was normal at 11. Serum alcohol level was reviewed and was elevated at 134. Patient's heart rate remained elevated. Patient was given a dose of Cardizem here. Patient states he has prescriptions at his pharmacy that are waiting for him to pear picker. Estephanie ent was instructed to take these as previously prescribed. Patient was instructed to follow-up with his primary care physician in 5 days. Patient was instructed return if worse in any way. Patient understood and was agreeable with the plan. All questions were answered. Discharge Plan Triage Chief Complaint: Laceration ED Provider: Galen Cohen Dx/Rx/DC Orders Clinical Impression: Laceration of eyebrow, right, Fall, Atrial fibrillation Instructions: ED Laceration, All Closures, ED Laceration Minimize Scars Prescriptions: No Action thiamine HCl (vitamin B1) [Vitamin B-1] 100 mg Tablet 100 mg PO DAILYCM Qty: 30 2RF folic acid 1 mg Tablet 1 mg PO DAILY@0800 Qty: 30 3RF losartan 50 mg tablet 50 mg PO DAILY bumetanide 1 mg tablet 1 mg PO BID amiodarone 100 mg tablet 200 mg PO DAILY Eliquis 5 mg tablet 5 mg PO BID Jardiance 10 mg tablet 10 mg PO DAILY Entresto 24-26 mg tablet 1 tab PO BID pyridoxine (vitamin B6) [Vitamin B-6] 25 mg tablet 25 mg PO DAILY cyanocobalamin (vitamin B-12) 1,000 mcg tablet 500 mcg PO DAILY spironolactone 25 mg tablet 25 mg PO DAILY digoxin 125 mcg (0.125 mg) tablet 62.5 mcg PO DAILY fluticasone propion-salmeterol 100-50 mcg/dose blister with device 1 ea inhalation DAILY albuterol sulfate 90 mcg/actuation HFA aerosol inhaler 1 puff inhalation Q4H PRN PRN (Reason: dyspnea) mirtazapine 7.5 mg tablet 7.5 mg PO QHS cholecalciferol (vitamin D3) 25 mcg (1,000 unit) tablet 25 mcg PO DAILY Antacid Calcium 215 mg calcium (500 mg) tablet,chewable 537.5 mg PO DAILY melatonin 3 mg tablet 9 mg PO QHS PRN (Reason: sleep) budesonide-formoterol [Symbicort] 160-4.5 mcg/actuation HFA aerosol inhaler 1 inh inhalation BID Cepacol Sore Throat (kwasi-men) 15-2.6 mg lozenge 1 forest mucous membrane Q2H PRN (Reason: sore throat) One Daily Multi-Vit w-Mineral 4.5 mg iron tablet 1 tab PO DAILY Primary Care Provider: Rena Springer Referrals: Rena Springer MD [Primary Care Provider] - 5 Days for suture removal Print Language: [place] Citizen Disposition Disposition: Home, Self Care
--- NOTE | 2024-07-08 20:30 | ED.RN ---
Patient getting agitated and impatient while waiting for CT results. This RN informed the patient of the importance of the CT results and waiting for the physician to suture his facial laceration. The patient decided to stay in the ED until the doctor was ready. The patient had to be redirected multiple times after wandering out of his room and attempting to enter other patient's rooms. This RN educated the patient on the importance of patient privacy and staying in his room. The patient asked to leave, this RN notified the physician. The physician sutured the patient's laceration and printed discharge instructions. This RN educated the patient on his discharge instructions. This RN called both contacts in the patient's chart for a ride home. The patient was persistent in leaving and calling an Uber. This RN gave the patient two numbers for a taxi and a number for an [employer] and this RN showed the patient to the waiting room phone, per patient's request.
--- NOTE | 2024-07-08 21:09 | CT_ITS ---
STUDY: CT BRAIN WITHOUT CONTRAST REASON FOR EXAM: Male, 69 years old. Fall RADIATION DOSAGE (If Supplied By Facility): CTDIvol = ( 44.99 ) mGy, DLP = ( 897.35 ) mGycm TECHNIQUE: Transaxial CT imaging of the brain was performed without administration of intravenous contrast material. Individualized dose optimization techniques were used for this CT. COMPARISON: Earlier the same day FINDINGS: There is right frontal soft tissue swelling. Normal calvarium. There is mild cerebral atrophy with widening of the extra-axial spaces and ventricular dilatation. There are areas of decreased attenuation within the white matter tracts of the supratentorial brain, consistent with microvascular disease changes. Normal basal ganglia and thalami. Normal brainstem. Normal cerebellum. There is no intracranial hemorrhage. There are no findings of an acute ischemic infarction. There is mucosal thickening of the right maxillary sinus. CT/Brain/Head without Contrast IMPRESSION: Chronic involutional changes of the brain. Soft tissue swelling. No hemorrhage. Stable appearance. Electronically Signed: Home Gray MD at 23:08 EST ,
--- NOTE | 2024-07-08 21:10 | ED.RN ---
Pt fell in triage after being discharged and waiting for ride.Taken back to rom 20 and placed on monitor, Dr. Cohen made aware and hed CT entered.
[2024-07-08 21:52] LABS: Absolute Lymphocyte Count 0.43 X10^3/uL (0.83-4.51); Basophil# 0.05 X10^3/uL; Basophil% 0.6 % (0-1); Hematocrit 38.6 % (40-54); Hemoglobin 13.5 g/dL (13.0-16.5); Lymphocyte # 0.43 X10^3/ul (0.83-4.51); Lymphocyte % 5.2 % (19-41); Mean Corpuscular Hgb 32.6 pg (27.0-32.0); Mean Corpuscular Volume 93.2 fL (80-94); Mean Platelet Vol. 9.4 fl (6.2-12.0); Monocyte# 0.72 X10^3/uL; Monocyte% 8.8 % (0-10); NRBC Flagged by Analyzer 0 % (0-5); Neutrophil # 6.95 X10^3/uL (2.7-7.7); Neutrophil % 84.8 % (47-70); POSITIVE DIFFERENTIAL YES; Platelet Count 338 K/mm3 (150-450); RBC Distribution Width CV 14.1 % (11.6-14.6); RBC Distribution Width SD 48.1 fl (35.1-43.9); Red Blood Count 4.14 M/mm3 (4.6-6.2); White Blood Count 8.2 K/mm3 (4.4-11.0)
[2024-07-08] MEDS: Mag Hydrox/Al Hydrox/Simeth 30 ML UDC PO (21:52)
[2024-07-08] MEDS: 0.9% Normal Saline (1000mL) 1,000 ML 1000 ML IV (21:52)
[2024-07-08] MEDS: Lidocaine 2% Viscous15 ML UDC 15 ML PO (21:52)
[2024-07-08 22:11] LABS: Anion Gap 12 (5-15); BUN 19 mg/dL (7-18); BUN/Creat Ratio 14.3 RATIO (10-20); Calcium,Total 9.1 mg/dL (8.5-10.1); Chloride 94 mmol/L (98-107); Creatinine, Serum 1.33 mg/dL (0.70-1.30); EST Glomerular Filtration Rate 57 mL/min (>60); Est Glom Filt Rate - Afr Amer 69 mL/min (>60); Estimated Creatinine Clearance 54.81 ml/min; Glucose 72 mg/dL (74-106); Potassium 4.4 mmol/L (3.5-5.1); Sodium Level 130 mmol/L (136-145); Troponin-I HS 11 pg/mL (3.0-78.0)
--- NOTE | 2024-07-08 22:36 | ED.RN ---
Pt asked this RN to call him a taxi so he could have a ride home. Pt the spit into blue recycling bin. RN instructed this pt he is not able to spit into this can because it is not a trash can. Pt began to fall forward. RN up from triage chair to assist with fall. Pt hit front of head on ground in second triage room. Alexsandra Vann RN to assist, pt is awake with eyes open but not responding to questions. Staff Assist button pressed to have more staff @ pt side. Pt taken to room 20 for reevaluation.
[2024-07-09] MEDS: dilTIAZem 25 MG/5 ML Vial IV BOLUS
[2024-07-09 01:00] VITALS: BP 152/133; PULSE 59; RESP 18; O2SAT 93
[2024-07-09 03:00] VITALS: PULSE 65; RESP 16; O2SAT 95
[2024-07-09 05:00] VITALS: BP 155/87; PULSE 99; RESP 16; O2SAT 100
== END 2024-07-09 05:48 | disposition home or self-care (01) ==
PROVIDERS: Emergency Provider Emergency Medicine; PCP Family Medicine; Visit Provider Emergency Medicine
DX: S01.111A Laceration without foreign body of right eyelid and periocular area, initial encounter (principal); J44.9 Chronic obstructive pulmonary disease, unspecified; I48.91 Unspecified atrial fibrillation; Z23 Encounter for immunization; W19.XXXA Unspecified fall, initial encounter
CPT/HCPCS: 12011; 70450; 80048; 82077; 84484; 85025; 90471; 90715; 93005; 96361; 96374; 99285; A4216

== ENCOUNTER 2024-07-30 01:58 | Emergency (ER) | payer MEDICARE, SELFPAY ==
[2024-07-30] VITALS (7 sets, daily range): BP systolic 99–136; BP diastolic 70–90; PULSE 99–114; RESP 16–26; TEMP 36.6; O2SAT 93–98; BMI 24.3
--- NOTE | 2024-07-30 02:28 | CT_ITS ---
INDICATION: head injury EXAMINATION: CT BRAIN - CT Head or Brain W/O Contrast Injection TECHNIQUE: Multiple axial images were obtained of the head without intravenous contrast. The protocol utilizes one or more of the following dose reduction techniques: automated exposure control, adjustment of mA and/or kV according to patient size,and/or use of iterative reconstruction technique. IV Contrast dosage and agent: None. RADIATION DOSAGE (If Supplied By Facility): CTDIvol = ( 44.99 ) mGy, DLP = ( 981.71 ) mGycm COMPARISON: CT BrainDec 2023 9:14pm FINDINGS: BRAIN PARENCHYMA: No intra- or extra-axial hemorrhage. No evidence of acute infarct. No intracranial mass or mass effect. There is preservation of the boo/white matter interface. Posterior fossa structures are unremarkable. CSF SPACES: Appropriate for age. No hydrocephalus. Basal cisterns are patent. CALVARIUM, SKULL BASE, PARANASAL SINUSES AND MASTOID AIR CELLS: There is right parietal scalp hematoma. Clear. No discrete lytic or blastic abnormalities. ORBITS: Both globes, extraocular muscles, optic nerves and retrobulbar fat appear unremarkable. ASPECTS Score for Acute Strokes: 10 CT/Brain/Head without Contrast IMPRESSION: No acute intracranial abnormality. Electronically Signed: Efrem Montoya MD at 5:03 EST ,
--- NOTE | 2024-07-30 02:28 | CT_ITS ---
INDICATION: fall EXAMINATION: CT CERVICAL SPINE - CT Spine Cervical W/O Contrast Injection TECHNIQUE: Helically acquired images were obtained of the cervical spine. 2D reformatted images were reviewed. The protocol utilizes one or more of the following dose reduction techniques: automated exposure control, adjustment of mA and/or kV according to patient size,and/or use of iterative reconstruction technique. IV Contrast dosage and agent: None. RADIATION DOSAGE (If Supplied By Facility): CTDIvol = ( 24.08 ) mGy, DLP = ( 597.01 ) mGycm COMPARISON: No relevant prior comparison study available FINDINGS: Normal craniovertebral junction. Normal anterior atlantoaxial articulation. Normal odontoid process. There is straightening of the normal cervical lordosis. Normal vertebral bodies and posterior osseous elements. C2-3: Normal endplates. Normal disc height and morphology. Normal central canal and intervertebral neuroforamina. C3-4, C4-5, C5-6, C6-7: Endplate spondylosis. Central and paracentral disc bulge. Degenerative changes of the bilateral facet joints and uncovertebral joints. [id number] narrowing of the central canal and the bilateral intervertebral neural foramina. C7-T1: Normal endplates. Normal disc height and morphology. Normal central canal and intervertebral neuroforamina. Normal visualized soft tissue structures. CT/Spine Cervical without Contras IMPRESSION: Multilevel degenerative changes, as described above. Electronically Signed: Efrem Montoya MD at 5:06 EST ,
[2024-07-30] MEDS: DiphenhydrAMINE 50 MG/ML Syringe IV (02:33)
[2024-07-30] MEDS: Haloperidol Lactate 5 MG/ML Vial IV (02:33)
[2024-07-30 02:47] LABS: Absolute Lymphocyte Count 1.03 X10^3/uL (0.83-4.51); Absolute Neutrophil Count 4.5 X10^3/uL (2.0-7.7); Basophil# 0.08 X10^3/uL; Basophil% 1.2 % (0-1); Eosinophil# 0.13 X10^3/uL; Hematocrit 35.5 % (40-54); Hemoglobin 11.8 g/dL (13.0-16.5); Lymphocyte # 1.03 X10^3/ul (0.83-4.51); Mean Corp Hgb Conc 33.2 g/dL (32-36); Mean Corpuscular Hgb 32.1 pg (27.0-32.0); Mean Corpuscular Volume 96.5 fL (80-94); Monocyte# 0.63 X10^3/uL; Monocyte% 9.8 % (0-10); NRBC Flagged by Analyzer 0 % (0-5); Neutrophil # 4.52 X10^3/uL (2.7-7.7); Neutrophil % 70.2 % (47-70); Platelet Count 310 K/mm3 (150-450); RBC Distribution Width CV 13.2 % (11.6-14.6); RBC Distribution Width SD 46.7 fl (35.1-43.9); Red Blood Count 3.68 M/mm3 (4.6-6.2); White Blood Count 6.4 K/mm3 (4.4-11.0)
[2024-07-30 02:56] LABS: International Normalized Ratio 1.1; Partial Thromboplast Time 28.9 Seconds (24.1-36.2); Prothrombin Time (Protime)PT. 14.7 SECONDS (11.7-14.9)
[2024-07-30 03:02] LABS: Anion Gap 9 (5-15); BUN 14 mg/dL (7-18); BUN/Creat Ratio 10.1 RATIO (10-20); Chloride 100 mmol/L (98-107); Creatinine, Serum 1.39 mg/dL (0.70-1.30); EST Glomerular Filtration Rate 54 mL/min (>60); Est Glom Filt Rate - Afr Amer 65 mL/min (>60); Estimated Creatinine Clearance 52.52 ml/min; Glucose 97 mg/dL (74-106); Potassium 4.1 mmol/L (3.5-5.1); Sodium Level 133 mmol/L (136-145)
--- NOTE | 2024-07-30 03:05 | RAD_ITS ---
INDICATION: fall EXAMINATION/TECHNIQUE: X-RAY - XR Chest 1 View COMPARISON: No relevant prior comparison study available FINDINGS: LINES/DEVICES: None. LUNGS: No consolidation, edema or effusion. No pneumothorax. MEDIASTINUM AND CARDIOVASCULAR STRUCTURES: Cardiac silhouette not enlarged. Central airways and mediastinal contour are unremarkable. BONES AND SOFT TISSUES: Unremarkable. RAD/Chest 1 View (Portable) IMPRESSION: No radiographic evidence of acute cardiopulmonary disease. Electronically Signed: Efrem Montoya MD at 5:14 EST ,
--- NOTE | 2024-07-30 03:05 | RAD_ITS ---
INDICATION: fall EXAMINATION/TECHNIQUE: X-RAY - XR Pelvis 1 or 2 Views COMPARISON: No relevant prior comparison study available FINDINGS: PELVIC BONES: No displaced fracture, destructive or sclerotic lesions. Note that overlapping bowel shadows may however obscure fine detail. Sacroiliac joints are unremarkable. No widening of the pubic symphysis. HIPS: The articular structures are unremarkable. No displaced fracture seen in this frontal view. SOFT TISSUES: No soft tissue swelling or gas. RAD/Pelvis 1 or 2 Views IMPRESSION: No evidence of displaced pelvic or hip fracture. Electronically Signed: Efrem Montoya MD at 5:12 EST ,
--- NOTE | 2024-07-30 05:13 | EX.ED.DYSGE1 ---
HPI History of Present Illness Chief Complaint: Head Injury Informant: patient and EMS Narrative Narrative: Patient is a 69-year-old male with past medical history of hypertension alcohol abuse COPD and atrial fibrillation. EMS states they were called this evening because the patient was drinking and he lost his balance and fell striking his head. He sustained a scalp laceration and had significant bleeding that cannot be controlled at home and therefore EMS was called. Patient confirms he was drinking this evening and that he had a mechanical fall. He denies any pain at this time PFSH PFS Medical History A-fib Malnutrition Pulmonary mass CHI (closed head injury) Substance abuse Anxiety Depression Smoker COPD (chronic obstructive pulmonary disease) Irregular heart beat Hypertension Behavior concern in adult At high risk for malnutrition Mass of left lung Hyponatremia Alcohol withdrawal Acute blood loss anemia GI bleed Chewing tobacco use History of cancer tonsil Anxiety and depression ETOH abuse Home Medications ?Medication ?Instructions ?Recorded ?Last Taken ?Type folic acid 1 mg tablet 1 mg PO DAILY@0800 #30 tabs 05/30/23 Unknown Rx thiamine HCl (vitamin B1) 100 mg 100 mg PO DAILYCM #30 tabs 05/30/23 Unknown Rx tablet (Vitamin B-1) albuterol sulfate 90 mcg/actuation 1 puff inhalation Q4H PRN PRN 10/14/23 Unknown History aerosol inhaler dyspnea amiodarone 100 mg tablet 200 mg PO DAILY 10/14/23 Unknown History apixaban 5 mg tablet (Eliquis) 5 mg PO BID 10/14/23 Unknown History bumetanide 1 mg tablet 1 mg PO BID 10/14/23 Unknown History calcium carbonate (Antacid Calcium) 537.5 mg PO DAILY 10/14/23 Unknown History cholecalciferol (vitamin D3) 25 25 mcg PO DAILY 10/14/23 Unknown History mcg (1,000 unit) tablet cyanocobalamin (vitamin B-12) 500 mcg PO DAILY 10/14/23 Unknown History 1,000 mcg tablet digoxin 125 mcg (0.125 mg) tablet 62.5 mcg PO DAILY 10/14/23 Unknown History empagliflozin 10 mg tablet 10 mg PO DAILY diabetes mellitus 10/14/23 Unknown History (Jardiance) fluticasone 100 mcg-salmeterol 50 1 ea inhalation DAILY 10/14/23 Unknown History mcg/dose blistr powdr for inhalation losartan 50 mg tablet 50 mg PO DAILY blood pressure 10/14/23 Unknown History mirtazapine 7.5 mg tablet 7.5 mg PO QHS depressive disorder 10/14/23 Unknown History pyridoxine (vitamin B6) 25 mg 25 mg PO DAILY anemia 10/14/23 Unknown History tablet (Vitamin B-6) sacubitril 24 mg-valsartan 26 mg 1 tab PO BID 10/14/23 Unknown History tablet (Entresto) spironolactone 25 mg tablet 25 mg PO DAILY blood pressure 10/14/23 Unknown History benzocaine 15 mg-menthol 2.6 mg 1 forest mucous membrane Q2H PRN sore 10/15/23 Unknown History lozenges (Cepacol Sore Throat throat (benzocaine-menthol)) budesonide-formoterol HFA 160 1 inh inhalation BID SHORTNESS OF 10/15/23 Unknown History mcg-4.5 mcg/actuation aerosol BREATH inhaler (Symbicort) melatonin 3 mg tablet 9 mg PO QHS PRN sleep 10/15/23 Unknown History multivitamin with minerals-ferrous 1 tab PO DAILY SUPPLEMENT 10/15/23 Unknown History sulfate 4.5 mg iron tablet (One Daily Multivitamins with Minerals) Allergy/AdvReac Type Severity Reaction Status Date / Time poison mike extract Allergy Mild RASH Verified 07/08/24 17:32 Family History Mother Diabetes Father Diabetes Brother Colon cancer Surgical History History of tonsillectomy and adenoidectomy Social History household members: other details: Lives with his son. Smoking Status: Current some day smoker tobacco type: smokeless tobacco Smokeless tobacco user: chewing tobacco and other alcohol intake: current alcohol intake frequency: 3 or more drinks per day details: 8-10 beers daily coupled with hard liquor. substance use type: does not use ROS ROS ED Constitutional Constitutional ED: Denies chills or fever(s) Eyes Eyes: Denies blurry vision or change in vision ENT ENT ED: Denies sore throat Cardiovascular Cardiovascular: Reports other Details: Negative syncope ; Denies chest pain or palpitations Respiratory/Chest Respiratory/Chest: Denies cough or dyspnea Gastrointestinal Gastrointestinal: Denies abdominal pain, diarrhea, nausea or vomiting Musculoskeletal Musculoskeletal: Denies back pain or neck pain Integumentary Reports other Details: Positive scalp laceration Neurologic Neurologic: Reports headache(s); Denies paresthesias or weakness Hematologic/Lymphatic Hematologic/Lymphatic: Reports easy bleeding and easy bruising EXAM Physical Exam Const Vital Signs: 07/30/24 01:59 07/30/24 01:59 07/30/24 02:03 Temperature 97.9 F Temperature Source Temporal Pulse Rate 109 H 114 H Respiratory Rate 26 H 18 Respiratory Effort Normal Non-Labored Respiratory Depth Normal Respiratory Pattern Normal Blood Pressure 136/90 H 136/90 H Blood Pressure Mean 105 105 Pulse Ox 98 96 Oxygen Delivery Method Room Air Room Air 07/30/24 03:03 07/30/24 04:00 07/30/24 05:00 Temperature Temperature Source Pulse Rate 102 H 102 H 99 Respiratory Rate 22 H 18 18 Respiratory Effort Respiratory Depth Respiratory Pattern Blood Pressure 99/88 H 104/70 124/88 H Blood Pressure Mean 91 81 100 Pulse Ox 93 96 95 Oxygen Delivery Method Room Air Room Air Room Air Positive well nourished and well developed General Appearance ED: well developed HEENT HEENT Narrative: Patient has a large curvilinear laceration that is subcutaneous layer deep along the right parietal portion of the scalp. The wound is 10 cm in length. There is brisk nonpulsatile dark red blood present. No foreign body. No signs of depressed or basilar skull fracture Eyes EOMs intact bilaterally Eyes Narrative: Pupils are dilated and sluggish to respond to light consistent with alcohol use Scleral injection is noted as well Neck supple Neck Narrative: No bony deformity or step-off of the cervical spine no midline tenderness to palpation Patient is moving his neck in all directions without pain Chest Wall palpation of chest normal Chest Narrative: No bony deformity or crepitance noted Resp normal respiratory effort Resp Narrative: Breath sounds are diminished throughout with faint wheeze and rhonchi in the bilateral bases consistent with history of COPD but no signs of respiratory distress Cardio regular rhythm Rate: tachycardic and other Other Details: Tachycardic rate with regular rhythm GI normal to inspection, nondistended, normoactive bowel sounds, non-tender, non-distended and no masses Auscultation: normoactive bowel sounds Palpation: soft Back/Spine Back/Spine Narrative: No bony deformity or step-off of the thoracic or lumbar spine no midline tenderness to palpation Extremity normal to inspection Extremity Narrative: Pelvis is stable there is no shortening or external rotation of either lower extremity Patient is able to move all extremities without difficulty Neuro oriented x3, CN's II-XII intact bilaterally and no sensory deficits noted Neuro Narrative: Patient is intoxicated with GCS of 14 Otherwise no focal neurologic deficit is noted Sensorium / Orientation: orientation impaired Motor Exam: strength 5/5 throughout Psych mental status grossly normal Skin Skin Narrative: Scalp laceration to the right parietal portion of the scalp as documented above MDM MDM MDM Narrative Medical decision making narrative: Patient arrived to ER reporting intoxication and accidental fall so I felt no need for cardiac or syncope workup. He had a large hematoma and laceration along the right sided parietal portion of the scalp. The blood mixing with the hair did not allow for visualization of the wound. Secondary to the persistent bleed and concern that the patient was having an underlying skull fracture or brain bleed such as traumatic subdural or epidural hematoma Surgifoam was placed over top of the areas of bleeding and the patient's head was wrapped with an Robb bandage. This controlled the bleeding and allowed for the patient to go to CT scan. The CT scan showed a large scalp hematoma but no skull fracture or internal injury. Once he returned from this the decision was made in order to visualize the wound we would have to shave his scalp. Therefore this was performed and did reveal the large 10 cm laceration. The patient then had a laceration close as documented below. Blood work revealed positive alcohol intoxication consistent with his history but otherwise no clinically significant findings. Therefore at this time as the patient's wound has been closed and bleeding controlled and he does not have signs of internal injury there is no need for further evaluation in the ER and family we will called to pick him up as he is intoxicated and cannot leave under his own power After having the scalp shaved and the laceration revealed the area was cleaned with hydroperoxide. The laceration was anesthetized using 8 mL of 1% lidocaine with epinephrine in local fashion. Then three 2-0 Ethilon sutures were placed to bring the wound together with close approximation. Following this 22 rodrick were then placed into the wound to hold the edges together well. After the rodrick were placed the wound edges approximated well and held together without difficulty and therefore the 3 sutures were removed. The patient tolerated procedure well without complication History & Record Review Discussion w/independent historian: EMS personnel and Patient Lab Data Attestation: I reviewed the patient's lab results. Labs: Laboratory Results - last 24 hr 07/30/24 02:10 WBC 6.4 RBC 3.68 L Hgb 11.8 L Hct 35.5 L MCV 96.5 H MCH 32.1 H MCHC 33.2 RDW Std Deviation 46.7 H RDW Coeff of Jesus 13.2 Plt Count 310 MPV 10.0 Immature Gran % (Auto) 0.800 Neut % (Auto) 70.2 H Lymph % (Auto) 16.0 L Hettinger % (Auto) 9.8 Eos % (Auto) 2.0 Baso % (Auto) 1.2 H Absolute Neuts (auto) 4.5 Absolute Lymphs (auto) 1.03 Nucleated RBC % 0 PT 14.7 INR 1.1 APTT 28.9 Sodium 133 L Potassium 4.1 Chloride 100 Carbon Dioxide 24.0 Anion Gap 9 BUN 14 Creatinine 1.39 H Estim Creat Clear Calc 52.52 Est GFR (MDRD) Af Amer 65 Est GFR (MDRD) Non-Af 54 L BUN/Creatinine Ratio 10.1 Glucose 97 Calcium 9.0 Ethyl Alcohol 281.0 Radiography Diagnostic Testing: Clinical Impression(s) from Imaging Studies Brain CT 07/30/24 02:28 IMPRESSION: No acute intracranial abnormality. Electronically Signed: Efrem Montoya MD at 5:03 EST Reading Location ID and State: [facility] / [place] Tel , Service support , Cervical Spine CT 07/30/24 02:28 IMPRESSION: Multilevel degenerative changes, as described above. Electronically Signed: Efrem Montoya MD at 5:06 EST , Chest X-Ray 07/30/24 03:05 IMPRESSION: No radiographic evidence of acute cardiopulmonary disease. Electronically Signed: Efrem Montoya MD at 5:14 EST , Pelvis X-Ray 07/30/24 03:05 IMPRESSION: No evidence of displaced pelvic or hip fracture. Electronically Signed: Efrem Montoya MD at 5:12 EST Reading Location ID and State: [facility] / [place] Tel , Service support , 1 view chest x-ray as interpreted by the emergency medicine physician reveals no acute infiltrate pneumothorax or rib fracture 1 view pelvis x-ray as interpreted by the emergency medicine physician reveals no acute fracture or dislocation Discharge Plan Triage Chief Complaint: Head Injury Other Complaint: ETOH Intox ED Provider: Thony Rivas Dx/Rx/DC Orders Clinical Impression: Alcohol intoxication, Laceration of scalp, Head injury, Accidental fall, Paroxysmal atrial fibrillation, COPD (chronic obstructive pulmonary disease) Instructions: ED Head Injury (Adult), ED Laceration Scalp Stitches or [place] Prescriptions: No Action thiamine HCl (vitamin B1) [Vitamin B-1] 100 mg Tablet 100 mg PO DAILYCM Qty: 30 2RF folic acid 1 mg Tablet 1 mg PO DAILY@0800 Qty: 30 3RF losartan 50 mg tablet 50 mg PO DAILY bumetanide 1 mg tablet 1 mg PO BID amiodarone 100 mg tablet 200 mg PO DAILY Eliquis 5 mg tablet 5 mg PO BID Jardiance 10 mg tablet 10 mg PO DAILY Entresto 24-26 mg tablet 1 tab PO BID pyridoxine (vitamin B6) [Vitamin B-6] 25 mg tablet 25 mg PO DAILY cyanocobalamin (vitamin B-12) 1,000 mcg tablet 500 mcg PO DAILY spironolactone 25 mg tablet 25 mg PO DAILY digoxin 125 mcg (0.125 mg) tablet 62.5 mcg PO DAILY fluticasone propion-salmeterol 100-50 mcg/dose blister with device 1 ea inhalation DAILY albuterol sulfate 90 mcg/actuation HFA aerosol inhaler 1 puff inhalation Q4H PRN PRN (Reason: dyspnea) mirtazapine 7.5 mg tablet 7.5 mg PO QHS cholecalciferol (vitamin D3) 25 mcg (1,000 unit) tablet 25 mcg PO DAILY Antacid Calcium 215 mg calcium (500 mg) tablet,chewable 537.5 mg PO DAILY melatonin 3 mg tablet 9 mg PO QHS PRN (Reason: sleep) budesonide-formoterol [Symbicort] 160-4.5 mcg/actuation HFA aerosol inhaler 1 inh inhalation BID Cepacol Sore Throat (kwasi-men) 15-2.6 mg lozenge 1 forest mucous membrane Q2H PRN (Reason: sore throat) One Daily Multi-Vit w-Mineral 4.5 mg iron tablet 1 tab PO DAILY Primary Care Provider: Rena Springer Referrals: Rena Springer MD [Primary Care Provider] - Activity Restrictions/Additional Instructions: Please see your family doctor or return to the ER in 10 to 14 days for staple removal Print Language: Swedish Disposition Disposition: Home, Self Care
== END 2024-07-30 06:36 | disposition home or self-care (01) ==
PROVIDERS: Emergency Provider Emergency Medicine; PCP Family Medicine; Visit Provider Emergency Medicine
DX: F10.129 Alcohol abuse with intoxication, unspecified (principal); J44.9 Chronic obstructive pulmonary disease, unspecified; I48.0 Paroxysmal atrial fibrillation; S01.01XA Laceration without foreign body of scalp, initial encounter; F17.220 Nicotine dependence, chewing tobacco, uncomplicated; W19.XXXA Unspecified fall, initial encounter
CPT/HCPCS: 12004; 70450; 71045; 72125; 72170; 80048; 82077; 85025; 85610; 85730; 96374; 96375; 96376; 99285; A4216

== ENCOUNTER 2024-08-24 01:37 | Emergency (ER) | payer MEDICARE, SELFPAY ==
[2024-08-24 01:39] VITALS: BP 120/70; PULSE 111; RESP 18; TEMP 36.9; O2SAT 100; BMI 23.3
--- NOTE | 2024-08-24 02:18 | CT_ITS ---
INDICATION: trauma EXAMINATION: CT BRAIN - CT Head or Brain W/O Contrast Injection TECHNIQUE: Multiple axial images were obtained of the head without intravenous contrast. The protocol utilizes one or more of the following dose reduction techniques: automated exposure control, adjustment of mA and/or kV according to patient size,and/or use of iterative reconstruction technique. IV Contrast dosage and agent: None. RADIATION DOSAGE (If Supplied By Facility): CTDIvol = ( 44.99 ) mGy, DLP = ( 880.47 ) mGycm COMPARISON: Prior study dated: 07/30/2024 FINDINGS: BRAIN: No acute bleed. No edema. Concepcion-white matter differentiation is maintained. Arterial calcifications. VENTRICLES AND SULCI: Not dilated. EXTRA-AXIAL: No hemorrhage, fluid collection, or mass. CALVARIUM / SKULL BASE: Unremarkable. FACE/SINUSES: Unremarkable. SOFT TISSUES: Soft tissue swelling in the right parietal scalp. CT/Brain/Head without Contrast IMPRESSION: Scalp contusion. No evidence of acute intracranial injury. Electronically Signed: Kayla Carpio MD at 3:35 EST ,
--- NOTE | 2024-08-24 02:18 | CT_ITS ---
INDICATION: trauma EXAMINATION: CT CERVICAL SPINE - CT Spine Cervical W/O Contrast Injection TECHNIQUE: Helically acquired images were obtained of the cervical spine. 2D reformatted images were reviewed. The protocol utilizes one or more of the following dose reduction techniques: automated exposure control, adjustment of mA and/or kV according to patient size,and/or use of iterative reconstruction technique. IV Contrast dosage and agent: None. RADIATION DOSAGE (If Supplied By Facility): CTDIvol = ( 22.62 ) mGy, DLP = ( 495.75 ) mGycm COMPARISON: Prior study dated: 07/30/2024 FINDINGS: ALIGNMENT: No subluxation. MINERALIZATION: Normal. VERTEBRAL BODIES: No fracture or acute abnormality. DISC SPACES: Disc space narrowing and osteophytes most pronounced 4 to C6. POSTERIOR ELEMENTS: Facet arthropathy at most levels. SPINAL CANAL: Maintained. PARASPINAL SOFT TISSUES: Unremarkable. Carotid arterial calcifications bilaterally. OTHER: Thyroid nodule 0.9 cm with calcifications. Focal opacities in the lung apices with associated apical pleural thickening not significantly changed most likely scarring. CT/Spine Cervical without Contras IMPRESSION: No evidence of fracture or subluxation. Straightening of the normal curve may be due to positioning or muscle spasm. Biapical pleural-parenchymal changes stable most likely scarring. Incidental thyroid nodule less than 1 cm. No follow-up imaging is recommended. Electronically Signed: Kayla Carpio MD at 3:47 EST ,
--- NOTE | 2024-08-24 02:18 | EKG12_ITS ---
Test Reason : DYSRHYTHMIA Blood Pressure : */* mmHG Vent. Rate : 110 BPM Atrial Rate : * BPM P-R Int : * ms QRS Dur : 92 ms QT Int : 312 ms P-R-T Axes : * 43 63 degrees QTcB Int : 422 ms Atrial fibrillation with rapid ventricular response with premature ventricular or aberrantly conducte d complexes Abnormal ECG Confirmed by BECCA BERNAL, CAROL ([id number]), purchase request editor LOUIS IZQUIERDO ([id number]) on 08/26/2024 6:14:35 AM Referred By: Confirmed By: CAROL HUDSON MD
--- NOTE | 2024-08-24 02:19 | EX.ED.GENINJ ---
HPI History of Present Illness Chief Complaint: Fall Informant: patient and EMS Narrative Narrative: Patient is a 69-year-old male with history of atrial fibrillation and alcohol abuse previously on Eliquis but patient states he is no longer on any blood thinners. He states he fell and hit the back of his head. He does not know how he fell but also admits to drinking heavily tonight. He states he had a bottle of 21 proof whiskey. He does not recall falling. Denies any other complaints or concerns at this time. States he is only here because he is bleeding from the back of his head. Tetanus Immunization: <5 years PFSH PFS Medical History A-fib Malnutrition Pulmonary mass CHI (closed head injury) Substance abuse Anxiety Depression Smoker COPD (chronic obstructive pulmonary disease) Irregular heart beat Hypertension Behavior concern in adult At high risk for malnutrition Mass of left lung Hyponatremia Alcohol withdrawal Acute blood loss anemia GI bleed Chewing tobacco use History of cancer tonsil Anxiety and depression ETOH abuse Home Medications ?Medication ?Instructions ?Recorded ?Last Taken ?Type folic acid 1 mg tablet 1 mg PO DAILY@0800 #30 tabs 05/30/23 Unknown Rx thiamine HCl (vitamin B1) 100 mg 100 mg PO DAILYCM #30 tabs 05/30/23 Unknown Rx tablet (Vitamin B-1) albuterol sulfate 90 mcg/actuation 1 puff inhalation Q4H PRN PRN 10/14/23 Unknown History aerosol inhaler dyspnea amiodarone 100 mg tablet 200 mg PO DAILY 10/14/23 Unknown History apixaban 5 mg tablet (Eliquis) 5 mg PO BID 10/14/23 Unknown History bumetanide 1 mg tablet 1 mg PO BID 10/14/23 Unknown History calcium carbonate (Antacid Calcium) 537.5 mg PO DAILY 10/14/23 Unknown History cholecalciferol (vitamin D3) 25 25 mcg PO DAILY 10/14/23 Unknown History mcg (1,000 unit) tablet cyanocobalamin (vitamin B-12) 500 mcg PO DAILY 10/14/23 Unknown History 1,000 mcg tablet digoxin 125 mcg (0.125 mg) tablet 62.5 mcg PO DAILY 10/14/23 Unknown History empagliflozin 10 mg tablet 10 mg PO DAILY diabetes mellitus 10/14/23 Unknown History (Jardiance) fluticasone 100 mcg-salmeterol 50 1 ea inhalation DAILY 10/14/23 Unknown History mcg/dose blistr powdr for inhalation losartan 50 mg tablet 50 mg PO DAILY blood pressure 10/14/23 Unknown History mirtazapine 7.5 mg tablet 7.5 mg PO QHS depressive disorder 10/14/23 Unknown History pyridoxine (vitamin B6) 25 mg 25 mg PO DAILY anemia 10/14/23 Unknown History tablet (Vitamin B-6) sacubitril 24 mg-valsartan 26 mg 1 tab PO BID 10/14/23 Unknown History tablet (Entresto) spironolactone 25 mg tablet 25 mg PO DAILY blood pressure 10/14/23 Unknown History benzocaine 15 mg-menthol 2.6 mg 1 forest mucous membrane Q2H PRN sore 10/15/23 Unknown History lozenges (Cepacol Sore Throat throat (benzocaine-menthol)) budesonide-formoterol HFA 160 1 inh inhalation BID SHORTNESS OF 10/15/23 Unknown History mcg-4.5 mcg/actuation aerosol BREATH inhaler (Symbicort) melatonin 3 mg tablet 9 mg PO QHS PRN sleep 10/15/23 Unknown History multivitamin with minerals-ferrous 1 tab PO DAILY SUPPLEMENT 10/15/23 Unknown History sulfate 4.5 mg iron tablet (One Daily Multivitamins with Minerals) Allergy/AdvReac Type Severity Reaction Status Date / Time poison mike extract Allergy Mild RASH Verified 08/24/24 01:43 Family History Mother Diabetes Father Diabetes Brother Colon cancer Surgical History History of tonsillectomy and adenoidectomy Social History household members: other details: Lives with his son. Smoking Status: Current some day smoker tobacco type: smokeless tobacco Smokeless tobacco user: chewing tobacco and other alcohol intake: current alcohol intake frequency: 3 or more drinks per day details: 8-10 beers daily coupled with hard liquor. substance use type: does not use ROS ROS ED Constitutional Constitutional ED: Denies chills or fever(s) Eyes Eyes: Denies change in vision Respiratory/Chest Respiratory/Chest: Denies cough or dyspnea Gastrointestinal Gastrointestinal: Reports nausea and vomiting Musculoskeletal Musculoskeletal: Denies arthralgias or myalgias Integumentary Reports other Details: Scalp laceration Neurologic Neurologic: Denies headache(s), paresthesias or weakness Hematologic/Lymphatic Hematologic/Lymphatic: Denies easy bleeding or easy bruising EXAM Physical Exam Const Vital Signs: 08/24/24 01:39 08/24/24 03:21 08/24/24 03:26 Temperature 98.4 F Temperature Source Oral Pulse Rate 111 H 109 H Respiratory Rate 18 18 Respiratory Effort Normal Non-Labored Respiratory Depth Normal Respiratory Pattern Normal Blood Pressure 120/70 120/77 Blood Pressure Mean 86 91 Pulse Ox 100 100 Oxygen Delivery Method Room Air Room Air Room Air 08/24/24 04:00 08/24/24 05:33 Temperature 98.0 F Temperature Source Pulse Rate 110 H 85 Respiratory Rate 13 16 Respiratory Effort Respiratory Depth Respiratory Pattern Blood Pressure 118/81 H 103/75 Blood Pressure Mean 93 84 Pulse Ox 99 99 Oxygen Delivery Method Room Air Positive well nourished and well developed Constitutional Narrative: Patient clinically appears intoxicated with alcohol General Appearance ED: well developed HEENT Reports TM's clear HEENT Narrative: Normocephalic. Posterior right scalp laceration present that is 6 cm in full-thickness linear. Nose: Negative for septum abnormal Tympanic Membrane ED: Yes TM's clear Eyes PERRL and EOMs intact bilaterally General Eye ED: Yes other Other Details: Nystagmus with range of motion of the eyes present consistent with ankle intoxication Neck full ROM General: Negative for tenderness Chest Wall inspection of chest normal Resp normal respiratory effort and clear to auscultation bilaterally Cardio no murmurs Rate: tachycardic GI normal to inspection, nondistended, normoactive bowel sounds and non-tender Extremity normal to inspection and full ROM General Extremety ED: Negative for deformity, edema or tenderness General Extremity: Negative for deformity or edema Neuro oriented x3 Neuro Narrative: No focal deficits. Clinically intoxicated E[place] Coma Scale: document GCS findings Spontaneous Obeys Commands Confused 14 Sensorium / Orientation: alert Psych mental status grossly normal and thought process normal Skin Skin Narrative: 6 cm full-thickness slightly gaping linear laceration of the right posterior scalp running vertically. No other trauma or injury reported appreciated. PROC Procedures Lacerations scalp: Length: 2.36 in Depth: Skin Shape: Linear Prep: Chlorhexadine Laceration repair: Irrigated, Local (LET) and Skin sutures Irrigated (ml): 200 Number of Sutures/[place]: 6 Suture Information: Vicryl (Rapide ), Simple and 5-0 MDM MDM MDM Narrative Medical decision making narrative: Patient evaluated for fall and subsequent head injury. He has a decent sized posterior scalp laceration. Patient does not recall why or how he fell. He is clearly intoxicated however he also has cardiac comorbidities and metabolic/cardiac workup in addition to traumatic workup is obtained. Patient's vital signs significant for mild tachycardia but otherwise normal. Hemodynamically stable. He is intoxicated but redirectable. Initial EKG does show atrial fibrillation prompting cardiac workup. Will add on EtOH level as he appears intoxicated. Patient is given IV fluids. CT of the brain and cervical spine obtained does not show any acute intracranial process or fracture. He does have scalp contusion noted on CT consistent with his clinical exam. Laceration repair performed. Patient is requesting sutures and not jacky. Rapid Vicryl sutures placed that are absorbable and lieu of jacky. See procedure note. Workup including CBC, CMP, EtOH and troponin largely stable. He has a mild elevation of creatinine at 1.44 which is his baseline. His mild anemia with hemoglobin Omar 0.6 which is again his baseline. His EtOH level is significantly elevated consistent with his report of drinking a bottle of whiskey tonight. High sensitivity troponin is negative. EKG does show A-fib with RVR at a rate of 110 bpm. Despite receiving IV fluids patient has mild tachycardia. Is given IV doses of Lopressor for further rate control. Chart review shows that patient's tetanus is up-to-date. He has been seen in ER for multiple falls and head injuries associated with alcohol intoxication. Anticipate when patient is clinically sober, has a ride home and has rate controlled to be discharged home. Suspect fall was related to his alcohol abuse. Patient's brother able to pick him up. Patient has improvement of heart rate with 5 mg IV metoprolol. Ambulates out of the emergency room steady gait. Lab Data Attestation: I reviewed the patient's lab results. Labs: Laboratory Results - last 24 hr 08/24/24 08/24/24 02:55 03:00 WBC 4.6 RBC 3.77 L Hgb 11.6 L Hct 34.1 L MCV 90.5 MCH 30.8 MCHC 34.0 RDW Std Deviation 42.5 RDW Coeff of Jesus 12.9 Plt Count 306 MPV 9.4 Immature Gran % (Auto) 0.400 Neut % (Auto) 74.3 H Lymph % (Auto) 14.5 L [place] % (Auto) 8.6 Eos % (Auto) 1.1 Baso % (Auto) 1.1 H Absolute Neuts (auto) 3.4 Absolute Lymphs (auto) 0.67 L Nucleated RBC % 0 Sodium 134 L Potassium 3.9 Chloride 99 Carbon Dioxide 21.0 Anion Gap 13 BUN 22 H Creatinine 1.44 H Estim Creat Clear Calc 50.69 Est GFR (MDRD) Af Amer 63 Est GFR (MDRD) Non-Af 52 L BUN/Creatinine Ratio 15.3 Glucose 82 Calcium 9.1 Total Bilirubin 0.50 AST 23 ALT 16 Alkaline Phosphatase 104 Troponin I High Sens 19 Total Protein 7.7 Albumin 3.7 Globulin 4.0 Albumin/Globulin Ratio 0.9 Ethyl Alcohol 270.0 Radiography Diagnostic Testing: Clinical Impression(s) from Imaging Studies Brain CT 08/24/24 02:18 IMPRESSION: Scalp contusion. No evidence of acute intracranial injury. Electronically Signed: Kayla Carpio MD at 3:35 EST , Cervical Spine CT 08/24/24 02:18 IMPRESSION: No evidence of fracture or subluxation. Straightening of the normal curve may be due to positioning or muscle spasm. Biapical pleural-parenchymal changes stable most likely scarring. Incidental thyroid nodule less than 1 cm. No follow-up imaging is recommended. Electronically Signed: Kayla Carpio MD at 3:47 EST , Rhythm Strip Rhythm Strip: A-fib Rate: 110 Ectopy: None EKG Initial EKG: Attestation: I personally reviewed and interpreted this EKG as follows: Interpretation: Atrial Fibrillation Comments: Atrial fibrillation at a rate of 110 bpm with PVCs present Normal axis Normal intervals Normal ST segments Prior EKG tracings: available for review Prior: Unchanged Discharge Plan Triage Chief Complaint: Fall ED Provider: Sandhya Bailey Dx/Rx/DC Orders Clinical Impression: Falls, Atrial fibrillation with RVR, Laceration of scalp, Alcohol abuse Instructions: ED Laceration Scalp Stitches or Jacky, ED Alcohol Abuse Prescriptions: No Action thiamine HCl (vitamin B1) [Vitamin B-1] 100 mg Tablet 100 mg PO DAILYCM Qty: 30 2RF folic acid 1 mg Tablet 1 mg PO DAILY@0800 Qty: 30 3RF losartan 50 mg tablet 50 mg PO DAILY bumetanide 1 mg tablet 1 mg PO BID amiodarone 100 mg tablet 200 mg PO DAILY Eliquis 5 mg tablet 5 mg PO BID Jardiance 10 mg tablet 10 mg PO DAILY Entresto 24-26 mg tablet 1 tab PO BID pyridoxine (vitamin B6) [Vitamin B-6] 25 mg tablet 25 mg PO DAILY cyanocobalamin (vitamin B-12) 1,000 mcg tablet 500 mcg PO DAILY spironolactone 25 mg tablet 25 mg PO DAILY digoxin 125 mcg (0.125 mg) tablet 62.5 mcg PO DAILY fluticasone propion-salmeterol 100-50 mcg/dose blister with device 1 ea inhalation DAILY albuterol sulfate 90 mcg/actuation HFA aerosol inhaler 1 puff inhalation Q4H PRN PRN (Reason: dyspnea) mirtazapine 7.5 mg tablet 7.5 mg PO QHS cholecalciferol (vitamin D3) 25 mcg (1,000 unit) tablet 25 mcg PO DAILY Antacid Calcium 215 mg calcium (500 mg) tablet,chewable 537.5 mg PO DAILY melatonin 3 mg tablet 9 mg PO QHS PRN (Reason: sleep) budesonide-formoterol [Symbicort] 160-4.5 mcg/actuation HFA aerosol inhaler 1 inh inhalation BID Cepacol Sore Throat (kwasi-men) 15-2.6 mg lozenge 1 forest mucous membrane Q2H PRN (Reason: sore throat) One Daily Multi-Vit w-Mineral 4.5 mg iron tablet 1 tab PO DAILY Primary Care Provider: Rena Springer Referrals: Rena Springer MD [Primary Care Provider] - Activity Restrictions/Additional Instructions: You had absorbable stitches placed in your scalp. You do not need to return for laceration repair. Take Tylenol as needed for headache. Please take your home medications as prescribed. Please limit your alcohol use as this is leading to multiple falls and injuries. Print Language: [place] Disposition Disposition: Home, Self Care Discharge Date/Time: 08/24/24 06:18
[2024-08-24] MEDS: Lidocaine/Epi/Tetracaine 50 ML 1 APPLIC TOPICAL (02:24)
[2024-08-24 03:00] LABS: Absolute Lymphocyte Count 0.67 X10^3/uL (0.83-4.51); Absolute Neutrophil Count 3.4 X10^3/uL (2.0-7.7); Basophil# 0.05 X10^3/uL; Basophil% 1.1 % (0-1); Eosinophil# 0.05 X10^3/uL; Eosinophils% 1.1 % (0-5); Hematocrit 34.1 % (40-54); Hemoglobin 11.6 g/dL (13.0-16.5); Lymphocyte # 0.67 X10^3/ul (0.83-4.51); Lymphocyte % 14.5 % (19-41); Mean Corpuscular Hgb 30.8 pg (27.0-32.0); Mean Corpuscular Volume 90.5 fL (80-94); Mean Platelet Vol. 9.4 fl (6.2-12.0); Monocyte% 8.6 % (0-10); NRBC Flagged by Analyzer 0 % (0-5); Neutrophil # 3.44 X10^3/uL (2.7-7.7); Neutrophil % 74.3 % (47-70); Platelet Count 306 K/mm3 (150-450); RBC Distribution Width CV 12.9 % (11.6-14.6); RBC Distribution Width SD 42.5 fl (35.1-43.9); Red Blood Count 3.77 M/mm3 (4.6-6.2); White Blood Count 4.6 K/mm3 (4.4-11.0)
[2024-08-24 03:20] LABS: ALB/GLOB Ratio 0.9 RATIO (0.9-2.4); AST(SGOT) 23 U/L (15-37); Alanine Aminotransfer ALT/SGPT 16 U/L (16-61); Albumin, Serum 3.7 g/dL (3.2-5.0); Alkaline Phosphatase 104 U/L (45-117); Anion Gap 13 (5-15); BUN 22 mg/dL (7-18); BUN/Creat Ratio 15.3 RATIO (10-20); Calcium,Total 9.1 mg/dL (8.5-10.1); Chloride 99 mmol/L (98-107); Creatinine, Serum 1.44 mg/dL (0.70-1.30); EST Glomerular Filtration Rate 52 mL/min (>60); Est Glom Filt Rate - Afr Amer 63 mL/min (>60); Estimated Creatinine Clearance 50.69 ml/min; Glucose 82 mg/dL (74-106); Potassium 3.9 mmol/L (3.5-5.1); Protein, Total 7.7 g/dL (6.4-8.2); Sodium Level 134 mmol/L (136-145); Troponin-I HS 19 pg/mL (3.0-78.0)
[2024-08-24 03:21] VITALS: BP 120/77; PULSE 109; RESP 18; O2SAT 100
[2024-08-24] MEDS: 0.9% Normal Saline (1000mL) 1,000 ML 1000 ML IV (03:25)
[2024-08-24 04:00] VITALS: BP 118/81; PULSE 110; RESP 13; O2SAT 99
[2024-08-24] MEDS: Metoprolol Tartrate 5 MG/5 ML Vial IV (04:41)
[2024-08-24 05:33] VITALS: BP 103/75; PULSE 85; RESP 16; TEMP 36.7; O2SAT 99
== END 2024-08-24 06:18 | disposition home or self-care (01) ==
PROVIDERS: Emergency Provider Emergency Medicine; PCP Family Medicine; Visit Provider Emergency Medicine
DX: I48.91 Unspecified atrial fibrillation (principal); J44.9 Chronic obstructive pulmonary disease, unspecified; S01.01XA Laceration without foreign body of scalp, initial encounter; F10.10 Alcohol abuse, uncomplicated; F17.220 Nicotine dependence, chewing tobacco, uncomplicated; W19.XXXA Unspecified fall, initial encounter
CPT/HCPCS: 70450; 72125; 80053; 82077; 84484; 85025; 93005; 96361; 96374; 99285; A4216

== ENCOUNTER 2025-06-03 11:54 | Emergency (ER) | payer MEDICARE, SELFPAY ==
[2025-06-03 11:55] VITALS: BP 114/78; PULSE 113; RESP 18; TEMP 36.8; O2SAT 99; BMI 24.0
[2025-06-03 12:54] VITALS: BP 106/69; PULSE 71; RESP 16; O2SAT 99
[2025-06-03 13:00] VITALS: BP 110/65; PULSE 70; RESP 16; O2SAT 99
--- NOTE | 2025-06-03 13:25 | ED.VIS.FALL ---
HPI HPI - Fall History of Present Illness Chief Complaint: Fall Informant: patient, legal guardian (via telephone) and EMS Narrative Narrative: Patient is a 70-year-old male presenting to the ED via EMS after reportedly falling down half a flight of stairs. - Patient does not recall falling down stairs and denies sustaining any injuries from a fall. - Uncertain why EMS was called; does not remember who called 911. Patient is extremely poor informant. - Reports abdominal pain but unclear if it started before or after the alleged fall. States he does not have any right now. - Denies any skin tears or scrapes. HPI is limited secondary to patient's confusion. Later, the patient's legal guardian who lives in [place] called and states that he currently lives with a brother, who was apparently at the home and called 911 and witnessed him fall down some steps. He states that the patient has a history of alcoholism, and recently diagnosed with alcohol induced dementia, which is why he has a legal guardian. Additionally, one of the patient's other brothers recently within the past week, leading the patient to fall off of the wagon and drink a entire 1.75 L bottle of vodka overnight without anybody knowing until this morning. He states that the patient's current behavior which may or may not include lying being deceptive about his alcohol use, and being somewhat confused is typical for him especially when drinking. PFSH PFSH Medical History A-fib Malnutrition Pulmonary mass CHI (closed head injury) Substance abuse Anxiety Depression Smoker COPD (chronic obstructive pulmonary disease) Irregular heart beat Hypertension Behavior concern in adult At high risk for malnutrition Mass of left lung Hyponatremia Alcohol withdrawal Acute blood loss anemia GI bleed Chewing tobacco use History of cancer tonsil Anxiety and depression ETOH abuse Home Medications ?Medication ?Instructions ?Recorded ?Last Taken ?Type folic acid 1 mg tablet 1 mg PO DAILY@0800 #30 tabs 05/30/23 Unknown Rx thiamine HCl (vitamin B1) 100 mg 100 mg PO DAILYCM #30 tabs 05/30/23 Unknown Rx tablet (Vitamin B-1) albuterol sulfate 90 mcg/actuation 1 puff inhalation Q4H PRN PRN 10/14/23 Unknown History aerosol inhaler dyspnea amiodarone 100 mg tablet 200 mg PO DAILY 10/14/23 Unknown History apixaban 5 mg tablet (Eliquis) 5 mg PO BID 10/14/23 Unknown History bumetanide 1 mg tablet 1 mg PO BID 10/14/23 Unknown History calcium carbonate (Antacid Calcium) 537.5 mg PO DAILY 10/14/23 Unknown History cholecalciferol (vitamin D3) 25 25 mcg PO DAILY 10/14/23 Unknown History mcg (1,000 unit) tablet cyanocobalamin (vitamin B-12) 500 mcg PO DAILY 10/14/23 Unknown History 1,000 mcg tablet digoxin 125 mcg (0.125 mg) tablet 62.5 mcg PO DAILY 10/14/23 Unknown History empagliflozin 10 mg tablet 10 mg PO DAILY diabetes mellitus 10/14/23 Unknown History (Jardiance) fluticasone 100 mcg-salmeterol 50 1 ea inhalation DAILY 10/14/23 Unknown History mcg/dose blistr powdr for inhalation losartan 50 mg tablet 50 mg PO DAILY blood pressure 10/14/23 Unknown History mirtazapine 7.5 mg tablet 7.5 mg PO QHS depressive disorder 10/14/23 Unknown History pyridoxine (vitamin B6) 25 mg 25 mg PO DAILY anemia 10/14/23 Unknown History tablet (Vitamin B-6) sacubitril 24 mg-valsartan 26 mg 1 tab PO BID 10/14/23 Unknown History tablet (Entresto) spironolactone 25 mg tablet 25 mg PO DAILY blood pressure 10/14/23 Unknown History benzocaine 15 mg-menthol 2.6 mg 1 forest mucous membrane Q2H PRN sore 10/15/23 Unknown History lozenges (Cepacol Sore Throat throat (benzocaine-menthol)) budesonide-formoterol HFA 160 1 inh inhalation BID SHORTNESS OF 10/15/23 Unknown History mcg-4.5 mcg/actuation aerosol BREATH inhaler (Symbicort) melatonin 3 mg tablet 9 mg PO QHS PRN sleep 10/15/23 Unknown History multivitamin with minerals-ferrous 1 tab PO DAILY SUPPLEMENT 10/15/23 Unknown History sulfate 4.5 mg iron tablet (One Daily Multivitamins with Minerals) Allergy/AdvReac Type Severity Reaction Status Date / Time poison mike extract Allergy Mild RASH Verified 06/03/25 11:55 Family History Mother Diabetes Father Diabetes Brother Colon cancer Surgical History History of tonsillectomy and adenoidectomy Social History household members: other details: Lives with his son. Smoking Status: Current some day smoker tobacco type: smokeless tobacco Smokeless tobacco user: chewing tobacco and other alcohol intake: current alcohol intake frequency: 3 or more drinks per day details: 8-10 beers daily coupled with hard liquor. substance use type: does not use ROS ROS ED Review of Systems ROS Unobtainable: due to mental condition and due to mental status Cardiovascular Cardiovascular: Denies chest pain Respiratory/Chest Respiratory/Chest: Denies dyspnea Gastrointestinal Gastrointestinal: Denies abdominal pain or nausea Musculoskeletal Musculoskeletal: Denies back pain or neck pain Neurologic Neurologic: Denies headache(s) EXAM Physical Exam Const Vital Signs: 06/03/25 11:55 06/03/25 12:06 06/03/25 12:54 Temperature 98.2 F Temperature Source Oral Pulse Rate 113 H 71 Respiratory Rate 18 16 Respiratory Effort Normal Blood Pressure 114/78 106/69 Blood Pressure Mean 90 81 Pulse Ox 99 99 Oxygen Delivery Method Room Air Room Air Room Air 06/03/25 13:00 06/03/25 15:12 Temperature Temperature Source Pulse Rate 70 92 Respiratory Rate 16 15 Respiratory Effort Blood Pressure 110/65 Blood Pressure Mean 80 Pulse Ox 99 97 Oxygen Delivery Method Room Air Positive well nourished and well developed General Appearance ED: well developed and NAD HEENT Reports moist mucous membranes HEENT Narrative: No Arana sign, no raccoon eyes, no CSF otorhinorrhea, no hemotympanum. normocephalic and atraumatic Eyes PERRL and EOMs intact bilaterally Neck full ROM and supple General: Negative for tenderness Chest Wall Negative for inspection of chest normal or palpation of chest normal Resp normal respiratory effort and clear to auscultation bilaterally Cardio regular rate, regular rhythm and no murmurs GI non-tender and non-distended Auscultation: normoactive bowel sounds Palpation: soft Back/Spine no CVA tenderness Back/Spine Narrative: Contusion with mild tenderness at the left posterior lower rib cage 9-11. Some mild crepitance in this local area no flail or pain with lateral compression of the rib cage. General Back: other FROM Extremity normal to inspection Extremity Narrative: Full range of motion throughout upper extremities without pain or limitation. General Extremety ED: Negative for edema, pulses abnormal or tenderness General Extremity: Negative for edema or pulses abnormal Neuro CN's II-XII intact bilaterally and no sensory deficits noted Neuro Narrative: Oriented to person but otherwise disoriented. Keenly alert. [place] Coma Scale: document GCS findings Spontaneous Obeys Commands Confused 14 Sensorium / Orientation: awake and alert Motor Exam: strength 5/5 throughout Skin Skin Narrative: Contusion left caudal posterior rib cage, and to the posterior aspect of the left upper arm, although this area is nontender. MDM MDM MDM Narrative Medical decision making narrative: Assessment: The patient is a 70-year-old male with PMH of alcohol-induced dementia presenting after a reported fall down a half-flight of stairs with altered sensorium and possible abdominal pain. Examination shows no head trauma, no focal neurologic deficits, and mild back tenderness without deformity. CT head is negative for acute injury and left rib series shows no fracture or pneumo-hemothorax. Serum alcohol level 227 mg/dL accounts for his intoxication; remaining blood work is unremarkable. Most likely diagnoses are uncomplicated alcoholic intoxication with underlying alcoholic dementia and soft-tissue back contusion; traumatic intracranial or thoracic injury ruled out by imaging. Plan: - Observing in ED until responsible family located for safe discharge - Supportive care: oral fluids offered per patient tolerance - Fall precautions and frequent nursing checks while intoxicated - Disposition home with family once clinically sober and safe and family arrives; so far, at 4 hrs of ED LOS, pt is still alone Diagnostics: - CT head: no acute intracranial hemorrhage, mass effect, or skull fracture. Independently interpreted by me, [facility]; radiology concurs - Left rib series (4 views): no acute fracture; no pneumothorax or hemothorax. Independently interpreted by me; radiology concurs - Blood alcohol level 227 mg/dL - Other routine labs reported within normal limits History & Record Review Discussion w/independent historian: EMS personnel, Patient and Other Lab Data Attestation: I reviewed the patient's lab results. Labs: Laboratory Results - last 24 hr 06/03/25 13:30 WBC 6.9 RBC 3.96 L Hgb 12.4 L Hct 37.6 L MCV 94.9 H MCH 31.3 MCHC 33.0 RDW Std Deviation 43.8 RDW Coeff of Jesus 12.7 Plt Count 222 MPV 9.9 Immature Gran % (Auto) 0.600 Neut % (Auto) 62.3 Lymph % (Auto) 20.7 [place] % (Auto) 8.5 Eos % (Auto) 6.7 H Baso % (Auto) 1.2 H Absolute Neuts (auto) 4.3 Absolute Lymphs (auto) 1.42 Nucleated RBC % 0 Sodium 139 Potassium 3.8 Chloride 104 Carbon Dioxide 25.3 Anion Gap 10 BUN 18 Creatinine 1.13 Estim Creat Clear Calc 63.70 Est GFR (MDRD) Non-Af 70 BUN/Creatinine Ratio 16.2 Glucose 78 Calcium 8.8 Ethyl Alcohol 227.0 H Radiography Diagnostic Testing: Clinical Impression(s) from Imaging Studies Brain CT 06/03/25 13:47 IMPRESSION: CHRONIC CHANGES. NO ACUTE FINDINGS. Reading Location: [id number] Ribs w/Chest X-Ray 06/03/25 13:55 IMPRESSION: Unremarkable examination. Reading Location: [id number] Discharge Plan Triage Chief Complaint: Fall ED Provider: [facility] Dx/Rx/DC Orders Clinical Impression: Alcohol intoxication in relapsed alcoholic, Alcoholic dementia, Back contusion, Fall down steps Instructions: ED Back Contusion Prescriptions: No Action thiamine HCl (vitamin B1) [Vitamin B-1] 100 mg Tablet 100 mg PO DAILYCM Qty: 30 2RF folic acid 1 mg Tablet 1 mg PO DAILY@0800 Qty: 30 3RF losartan 50 mg tablet 50 mg PO DAILY bumetanide 1 mg tablet 1 mg PO BID amiodarone 100 mg tablet 200 mg PO DAILY Eliquis 5 mg tablet 5 mg PO BID Jardiance 10 mg tablet 10 mg PO DAILY Entresto 24-26 mg tablet 1 tab PO BID pyridoxine (vitamin B6) [Vitamin B-6] 25 mg tablet 25 mg PO DAILY cyanocobalamin (vitamin B-12) 1,000 mcg tablet 500 mcg PO DAILY spironolactone 25 mg tablet 25 mg PO DAILY digoxin 125 mcg (0.125 mg) tablet 62.5 mcg PO DAILY fluticasone propion-salmeterol 100-50 mcg/dose blister with device 1 ea inhalation DAILY albuterol sulfate 90 mcg/actuation HFA aerosol inhaler 1 puff inhalation Q4H PRN PRN (Reason: dyspnea) mirtazapine 7.5 mg tablet 7.5 mg PO QHS cholecalciferol (vitamin D3) 25 mcg (1,000 unit) tablet 25 mcg PO DAILY Antacid Calcium 215 mg calcium (500 mg) tablet,chewable 537.5 mg PO DAILY melatonin 3 mg tablet 9 mg PO QHS PRN (Reason: sleep) budesonide-formoterol [Symbicort] 160-4.5 mcg/actuation HFA aerosol inhaler 1 inh inhalation BID Cepacol Sore Throat (kwasi-men) 15-2.6 mg lozenge 1 forest mucous membrane Q2H PRN (Reason: sore throat) One Daily Multi-Vit w-Mineral 4.5 mg iron tablet 1 tab PO DAILY Primary Care Provider: Rena Springer Referrals: Rena Springer MD [Primary Care Provider, Medical] - 3-5 Days if not improving [facility] [Non-Staff, None] Referral Note: as needed for addiction/alcohol services Print Language: Occitan Disposition Disposition: Home, Self Care
[2025-06-03 13:41] LABS: Hematocrit 37.6 % (40-54); Hemoglobin 12.4 g/dL (13.0-16.5); Immature Granulocytes Count 0.040 X10^3/uL (0.0-0.0); Mean Corp Hgb Conc 33.0 g/dL (32-36); Mean Corpuscular Volume 94.9 fL (80-94); Mean Platelet Vol. 9.9 fl (6.2-12.0); NRBC Flagged by Analyzer 0 % (0-5); Platelet Count 222 K/mm3 (150-450); RBC Distribution Width CV 12.7 % (11.6-14.6); RBC Distribution Width SD 43.8 fl (35.1-43.9); Red Blood Count 3.96 M/mm3 (4.6-6.2); White Blood Count 6.9 K/mm3 (4.4-11.0)
--- NOTE | 2025-06-03 13:45 | ED.RN ---
SON CHRISTIN MAY CALLED. STATES HIS FATHER HAS DEMENTIA AND WAS RECENTLY IN A [facility]. HE CAME HOME TO LIVE WITH PTS BROTHER ALBAN. HE STATES PT BROTHER (LYNSEY) ON SUNDAY AND PT RELAPSED TODAY. ALBAN WITNESSED A FALL DOWN 5-6 STAIRS WHILE HE WAS ON THE PHONE WITH SON CHRISTIN TELLING HIM ABOUT THE RELAPSE. SON STATES HE CAN BE REACHED AT [phone]. HE HAS HEALTHCARE POA FOR HIS FATHER
--- NOTE | 2025-06-03 13:47 | CT_ITS ---
PROCEDURE: CT/Brain/Head without Contrast
--- NOTE | 2025-06-03 13:55 | RAD_ITS ---
PROCEDURE: RAD/Ribs Uni Min 3V w/PA Chest
[2025-06-03 13:57] LABS: Alcohol, Blood (Medical)-Serum 227.0 mg/dL (<=10.0)
[2025-06-03 13:58] LABS: Anion Gap 10 (5-15); BUN 18 mg/dL (4-19); BUN/Creat Ratio 16.2 RATIO (10-20); Calcium,Total 8.8 mg/dL (7.6-11.0); Carbon Dioxide 25.3 mmol/L (21.0-32.0); Chloride 104 mmol/L (98-108); Estimated Creatinine Clearance 63.70 ml/min (50-250); Glucose 78 mg/dL (70-99); Potassium 3.8 mmol/L (3.3-5.1)
--- NOTE | 2025-06-03 14:29 | CM.ED ---
Social Work SW contacted patients son Nahun November, . Nahun stated he was legal guardian of person and estate for patient. Nahun states that patient has been diagnosed with alcohol dementia and had spend September through February in [facility]. Son states that patient was no longer able to pay for a LTC facility so patient was discharged home and patients brother Luís moved in with him. Son states he had taken control of patients finances so he had no money for alcohol, however yesterday patients brother gave him money to go to the store and patient purchased Vodka. Son states that patients other brother Sebastian just and son feels this is the reason for patients relapse. Son states he is planning on patient returning to his home, he is hoping this is a one off with his relapse, however son states should patient continue with his alcohol use, he will be looking for LTC again. Son emailed guardianship paperwork to [employer], guardianship paperwork placed in patients medical record. Em Jara, [employer], [employer]MENT [employer]ER
[2025-06-03 15:12] VITALS: PULSE 92; RESP 15; O2SAT 97
[2025-06-03 16:00] VITALS: BP 114/68; PULSE 61; RESP 15; O2SAT 100
--- NOTE | 2025-06-03 16:10 | ED.RN ---
1530 This nurse call patient's brother Luís. Voicemail is not set up on his phone. I then called Nahun, the patient's son. I let him know that his dad was ready, he said he would call his uncle to come and pick him up.
[2025-06-03 17:02] VITALS: BP 114/68; PULSE 61; RESP 15; TEMP 36.6; O2SAT 100
== END 2025-06-03 17:29 | disposition home or self-care (01) ==
PROVIDERS: Emergency Provider Emergency Medicine; PCP Family Medicine; Visit Provider Emergency Medicine
DX: F10.129 Alcohol abuse with intoxication, unspecified (principal); J44.9 Chronic obstructive pulmonary disease, unspecified; F17.220 Nicotine dependence, chewing tobacco, uncomplicated; S20.229A Contusion of unspecified back wall of thorax, initial encounter; W10.9XXA Fall (on) (from) unspecified stairs and steps, initial encounter
CPT/HCPCS: 70450; 71101; 80048; 82077; 85025; 99285; A4216

== ENCOUNTER 2025-06-15 20:48 | Emergency (ER) | payer MEDICARE, SELFPAY ==
[2025-06-15 20:49] VITALS: BP 109/63; PULSE 90; RESP 16; TEMP 36.9; O2SAT 100; BMI 24.7
[2025-06-15 21:49] VITALS: BP 111/80; PULSE 68; RESP 16; O2SAT 95
--- NOTE | 2025-06-15 22:00 | ED.RN ---
2200: The patient urinated on the floor, attempting to get out of his bed, the patient is pulling at monitoring equipment, and patient is not redirectable. This RN and multiple other nurses attempting to complete the appropriate diagnostic testing required for the patient. This RN notified the physician at this time, see MAR documentation. 2240: The patient continues to try to get out of bed, pulling at monitoring equipment, unable to stay still for the patient's scans to determine if there is any injury from the fall. The patient is becoming increasingly agitated, MD notified, see MAR documentation.
--- NOTE | 2025-06-15 22:01 | EKG12_ITS ---
Test Reason : Blood Pressure : */* mmHG Vent. Rate : 74 BPM Atrial Rate : * BPM P-R Int : * ms QRS Dur : 92 ms QT Int : 382 ms P-R-T Axes : * 31 82 degrees QTcB Int : 424 ms Atrial fibrillation Abnormal ECG Confirmed by LOVELY BERNAL, MARTITA ([id number]), acquisitions editor LOUIS IZQUIERDO ([id number]) on 06/16/2025 12:23:09 PM Referred By: Confirmed By: MARTITA MURRY MD
[2025-06-15] MEDS: 0.9% Normal Saline (1000mL) 1,000 ML 1000 ML IV (22:13)
[2025-06-15 22:46] LABS: Hematocrit 40.1 % (40-54); Hemoglobin 13.7 g/dL (13.0-16.5); Immature Granulocytes Count 0.020 X10^3/uL (0.0-0.0); Mean Corp Hgb Conc 34.2 g/dL (32-36); Mean Corpuscular Volume 92.4 fL (80-94); Mean Platelet Vol. 10.5 fl (6.2-12.0); NRBC Flagged by Analyzer 0 % (0-5); Platelet Count 201 K/mm3 (150-450); RBC Distribution Width CV 12.4 % (11.6-14.6); RBC Distribution Width SD 42.0 fl (35.1-43.9); Red Blood Count 4.34 M/mm3 (4.6-6.2); White Blood Count 5.7 K/mm3 (4.4-11.0)
[2025-06-15 22:47] LABS: Mucous, Urine 0 SEEN /hpf (<or=2+); Squamous Epithelial Cells - UA 0 SEEN /hpf (0-5)
[2025-06-15 22:48] LABS: Color, Urine Straw (Yellow); Glucose, Dipstick Normal (Normal); Ketone-Dipstick Negative (Negative); Leukocyte Esterase-Dipstick Negative /ul (Negative); Nitrite-Dipstick Negative (Negative); Occult Blood-Urine Negative /ul (Negative); Protein-Dipstick Negative (Negative); Specific Gravity, Urine 1.010 (1.002-1.030); Urine Bilirubin Dipstick Negative (Negative)
[2025-06-15 22:55] LABS: Prothrombin Time (Protime)PT. 14.5 SECONDS (11.7-14.9)
[2025-06-15 22:56] LABS: Partial Thromboplast Time 27.3 Seconds (24.1-36.2)
[2025-06-15 22:57] LABS: Red Blood Cells-Urine 0-5 SEEN /hpf (0-5)
[2025-06-15 23:00] VITALS: BP 103/66; PULSE 81; RESP 18; O2SAT 99
[2025-06-15 23:10] LABS: Barbiturate Urine NEGATIVE (< 200 ng/mL); Benzodiazepine Urine NEGATIVE (< 200 ng/mL); PCP Urine NEGATIVE (< 25 ng/mL); THC Urine NEGATIVE (< 50 ng/mL)
--- NOTE | 2025-06-15 23:10 | RAD_ITS ---
PROCEDURE: PELVIS 1 OR 2 VIEWS 06/15/2025 REASON FOR EXAM: FALL TECHNIQUE: Procedure Code: RADPEL Modality: DX Procedure: PELVIS 1 OR 2 VIEWS COMPARISON: None. FINDINGS: No evidence of acute fracture or dislocation. Alignment is anatomic. Mild bilateral hip arthrosis. No aggressive osseous lesion. No marked soft tissue swelling or radiopaque foreign body. RAD/Pelvis 1 or 2 Views IMPRESSION: No evidence of acute fracture or dislocation. Reading Location: [id number]
--- NOTE | 2025-06-15 23:10 | RAD_ITS ---
PROCEDURE: CHEST 1 VIEW 06/15/2025 REASON FOR EXAM: FALL TECHNIQUE: Frontal view of the chest. COMPARISON: 06/03/2025 and 07/30/2024. FINDINGS: The heart is normal in size. Mild left basilar atelectasis. No acute osseous abnormalities. RAD/Chest 1 View IMPRESSION: No Acute Findings. Reading Location: [id number]
[2025-06-15 23:15] LABS: Ammonia 70.2 umol/L (16-60)
[2025-06-15 23:16] LABS: AST(SGOT) 17 U/L (<=37); Alanine Aminotransfer ALT/SGPT 6 U/L (<=46); Albumin, Serum 4.0 g/dL (3.4-4.8); Alcohol, Blood (Medical)-Serum 225.0 mg/dL (<=10.0); Alkaline Phosphatase 90 U/L (40-129); Anion Gap 14 (5-15); BUN 19 mg/dL (4-19); BUN/Creat Ratio 15.5 RATIO (10-20); Calcium,Total 9.3 mg/dL (7.6-11.0); Carbon Dioxide 23.8 mmol/L (21.0-32.0); Chloride 94 mmol/L (98-108); Estimated Creatinine Clearance 59.49 ml/min (50-250); Globulin 3.1 g/dL (2.2-4.2); Glucose 107 mg/dL (70-99); Lipase 169 U/L (13-75); Potassium 4.4 mmol/L (3.3-5.1); Troponin T High Sensitivity 17 ng/L (<=22)
--- NOTE | 2025-06-15 23:16 | ED.VIS.FALL ---
HPI HPI - Fall History of Present Illness Chief Complaint: Fall Narrative Narrative: Patient is a 70-year-old male presenting to the emergency department for a fall. Patient has a past medical history of COPD, tobacco use, A-fib with RVR, debility, frequent falls, alcohol abuse and recently diagnosed alcohol induced dementia. Patient currently lives with his brother. The patient's legal guardian, his son, lives in [place]. Reportedly the patient was at [facility] and fell in the parking lot. Police then called the legal guardian who recommended that he come to the emergency department to be evaluated. Patient is unable to provide history. Does not remember falling. Declines any pain at time of evaluation. He is on aspirin. PFSH PFSH Medical History A-fib Malnutrition Pulmonary mass CHI (closed head injury) Substance abuse Anxiety Depression Smoker COPD (chronic obstructive pulmonary disease) Irregular heart beat Hypertension Behavior concern in adult At high risk for malnutrition Mass of left lung Hyponatremia Alcohol withdrawal Acute blood loss anemia GI bleed Chewing tobacco use History of cancer tonsil Anxiety and depression ETOH abuse Home Medications ?Medication ?Instructions ?Recorded ?Last Taken ?Type cholecalciferol (vitamin D3) 25 25 mcg PO DAILY 10/14/23 Unknown History mcg (1,000 unit) tablet aspirin 81 mg tablet 81 mg PO DAILY 06/15/25 Unknown History cholecalciferol (vitamin D3) 1,250 1,250 mcg PO QWEEK 06/15/25 Unknown History mcg (50,000 unit) capsule divalproex 500 mg tablet,extended 1,000 mg PO DAILY 06/15/25 Unknown History release 24 hr hydroxyzine HCl 25 mg tablet 25 mg PO Q4H PRN PRN agitation 06/15/25 Unknown History metoprolol tartrate 50 mg tablet 50 mg PO DAILY 06/15/25 Unknown History naltrexone 50 mg tablet 50 mg PO DAILY 06/15/25 Unknown History olanzapine 2.5 mg tablet 2.5 mg PO DAILY 06/15/25 Unknown History olanzapine 5 mg tablet 5 mg PO DAILY 06/15/25 Unknown History sertraline 50 mg tablet 50 mg PO DAILY depressive disorder 06/15/25 Unknown History Allergy/AdvReac Type Severity Reaction Status Date / Time poison mike extract Allergy Mild RASH Verified 06/15/25 21:00 Family History Mother Diabetes Father Diabetes Brother Colon cancer Surgical History History of tonsillectomy and adenoidectomy Social History household members: other details: Lives with his son. Smoking Status: Current some day smoker tobacco type: smokeless tobacco Smokeless tobacco user: chewing tobacco and other alcohol intake: current alcohol intake frequency: 3 or more drinks per day details: 8-10 beers daily coupled with hard liquor. substance use type: does not use ROS ROS ED Review of Systems ROS Unobtainable: due to mental status EXAM Physical Exam Narrative Exam Narrative: Vital signs: Reviewed General: Alert and oriented to self. Unkept. Disheveled appearing. Intoxicated. HEENT: Head is normocephalic and atraumatic. No lacerations, abrasions or cephalohematoma to the head or face. Sinuses nontender, pupils equal round and reactive. EOMI. Nares are patent. No septal hematoma. Oropharynx and throat exams normal. No oropharyngeal trauma. Neck: Supple without lymphadenopathy nontender. No midline cervical spinal tenderness to palpation. No step-offs or deformities. Cardiovascular: Irregularly irregular rate and rhythm, no murmurs. No rubs or gallops. Normal S1 and S2 Respiratory: Clear to auscultation bilaterally. No wheezes, rales, rhonchi Chest: Chest wall is atraumatic and nontender to palpation. No crepitus, erythema or ecchymosis. Abdominal: Soft and nontender. Normal bowel sounds. No guarding or rebound. Nonsurgical abdomen Extremities: No midline thoracic or lumbar spinal tenderness palpation. No step-offs or deformities. Hips are stable and nontender to palpation. Extremities are atraumatic and nontender to palpation with normal active range of motion. Skin: No rash or redness. Neurological: Does not participate in neurologic exam. Moving all extremities. The rest of the physical exam is unremarkable Const Vital Signs: 06/15/25 20:49 06/15/25 20:53 06/15/25 21:49 Temperature 98.5 F Temperature Source Oral Pulse Rate 90 68 Respiratory Rate 16 16 Respiratory Effort Normal Respiratory Depth Normal Respiratory Pattern Normal Blood Pressure 109/63 111/80 Blood Pressure Mean 78 90 Pulse Ox 100 95 Oxygen Delivery Method Room Air Room Air 06/15/25 23:00 06/16/25 00:00 Temperature Temperature Source Pulse Rate 81 86 Respiratory Rate 18 16 Respiratory Effort Respiratory Depth Respiratory Pattern Blood Pressure 103/66 131/91 H Blood Pressure Mean 78 104 Pulse Ox 99 95 Oxygen Delivery Method Room Air Room Air MDM MDM MDM Narrative Medical decision making narrative: Patient is a 70-year-old male presenting to the emergency department for a fall. Patient was seen and examined. Vitals are stable. Patient restless in bed. Comfortable. No acute distress. Patient is unable to provide history his fall today. CT the brain and cervical spine ordered. Chest x-ray and pelvis x-ray ordered. Labs including alcohol level was obtained. EKG shows rate controlled A-fib with no ischemic changes. CBC with no leukocytosis and normal hemoglobin. CMP with mild hyponatremia of 132, fluid bolus already running. Ammonia level mildly elevated at 70. However after interpretation of labs I do not think this is secondary to his alcohol use, given INR and liver enzymes are all within normal limits I do not think this is cirrhotic pathology. He is on Depakote and likely is the reason his ammonia is mildly elevated. Lipase elevated at 169, but is not 3 times the upper limit of normal and patient was not having any abdominal pain. Urine drug screen is negative. Urinalysis no evidence of infection. Alcohol level of 225 consistent with him being clinically intoxicated. Patient is restless in the bed and is a fall risk, he was initially given Haldol which had little to no effect. He was then given a dose of Ativan. CT of the brain with no acute intracranial abnormalities. Chronic changes can be found in the report. CT cervical spine with no acute traumatic findings. Chest x-ray and pelvis x-ray reviewed by myself and there is no fractures or dislocations noted. No opacities, pneumothorax or wide mediastinum. Radiology read in agreement. Patient will continue to be monitored until he is clinically sober. Family members were contacted by nursing staff and no one is available at this time to come pick the patient up. His brother can drive during daylight hours and will be able to pick them up in the morning. Patient will be monitored until family member can pick him up and he is clinically sober. Clinical impression: Fall Alcohol intoxication History & Record Review Discussion w/independent historian: EMS personnel Additional record(s) reviewed:: Prior inpatient record, Prior ED visit and Prior labs Lab Data Attestation: I reviewed the patient's lab results. Labs: Laboratory Results - last 24 hr 06/15/25 06/15/25 22:32 22:33 WBC 5.7 RBC 4.34 L Hgb 13.7 Hct 40.1 MCV 92.4 MCH 31.6 MCHC 34.2 RDW Std Deviation 42.0 RDW Coeff of Jesus 12.4 Plt Count 201 MPV 10.5 Immature Gran % (Auto) 0.400 Neut % (Auto) 57.6 Lymph % (Auto) 25.2 [place] % (Auto) 12.6 H Eos % (Auto) 3.7 Baso % (Auto) 0.5 Absolute Neuts (auto) 3.3 Absolute Lymphs (auto) 1.44 Nucleated RBC % 0 PT 14.5 INR 1.1 APTT 27.3 Sodium 132 L Potassium 4.4 Chloride 94 L Carbon Dioxide 23.8 Anion Gap 14 BUN 19 Creatinine 1.21 H Estim Creat Clear Calc 59.49 Est GFR (MDRD) Non-Af 65 BUN/Creatinine Ratio 15.5 Glucose 107 H Calcium 9.3 Total Bilirubin 0.27 AST 17 ALT 6 Alkaline Phosphatase 90 Ammonia 70.2 H Troponin T High Sens 17 Total Protein 7.0 Albumin 4.0 Globulin 3.1 Albumin/Globulin Ratio 1.3 Lipase 169 H Urine Color Straw Urine Clarity Clear Urine pH 7.0 Ur Specific [place] 1.010 Urine Protein Negative Urine Glucose (UA) Normal Urine Ketones Negative Urine Occult Blood Negative Urine Nitrite Negative Urine Bilirubin Negative Urine Urobilinogen Normal Ur Leukocyte Esterase Negative Urine RBC 0-5 SEEN Urine WBC 0-5 SEEN Ur Squamous Epith Cells 0 SEEN Urine Bacteria 0 SEEN Urine Mucus 0 SEEN Urine Opiates Screen NEGATIVE U Buprenorphine Qual NEGATIVE Ur Oxycodone Screen NEGATIVE Urine Methadone Screen NEGATIVE Urine Fentanyl Screen NEGATIVE Ur Barbiturates Screen NEGATIVE Ur Phencyclidine Scrn NEGATIVE Ur Amphetamines Screen NEGATIVE U Benzodiazepines Scrn NEGATIVE Urine Cocaine Screen NEGATIVE U Cannabinoids Screen NEGATIVE Ethyl Alcohol 225.0 H Radiography Diagnostic Testing: Clinical Impression(s) from Imaging Studies Chest X-Ray 06/15/25 23:10 IMPRESSION: No Acute Findings. Reading Location: [address] Pelvis X-Ray 06/15/25 23:10 IMPRESSION: No evidence of acute fracture or dislocation. Reading Location: [facility] Brain CT 06/15/25 23:20 IMPRESSION: No acute traumatic findings. Chronic/degenerative changes as described. Reading Location: [facility] Cervical Spine CT 06/15/25 23:20 IMPRESSION: No acute traumatic findings. Chronic/degenerative changes as described. Reading Location: [facility] Discharge Plan Triage Chief Complaint: Fall ED Provider: Nika Finnegan Dx/Rx/DC Orders Prescriptions: No Action cholecalciferol (vitamin D3) 25 mcg (1,000 unit) tablet 25 mcg PO DAILY aspirin 81 mg tablet 81 mg PO DAILY divalproex 500 mg tablet extended release 24 hr 1,000 mg PO DAILY hydroxyzine HCl 25 mg tablet 25 mg PO Q4H PRN PRN (Reason: agitation) naltrexone 50 mg tablet 50 mg PO DAILY olanzapine 5 mg tablet 5 mg PO DAILY olanzapine 2.5 mg tablet 2.5 mg PO DAILY metoprolol tartrate 50 mg tablet 50 mg PO DAILY sertraline 50 mg tablet 50 mg PO DAILY cholecalciferol (vitamin D3) 1,250 mcg (50,000 unit) capsule 1,250 mcg PO QWEEK Primary Care Provider: Rena Springer Referrals: Rena pSringer MD [Primary Care Provider, Medical] Print Language: [place]
--- NOTE | 2025-06-15 23:20 | CT_ITS ---
EXAM: CT BRAIN/HEAD; SPINE CERVICAL WITHOUT CONTRAST CLINICAL HISTORY: INTOXICATED, HIT HEAD?; FALL, INTOXICATED COMPARISON: 06/03/2025 TECHNIQUE: Noncontrast CT images of the head and cervical spine with multiplanar reconstructions. Dose reduction techniques were used including intermediate exposure control (AEC),iterative reconstruction technique, and/or mA and/or KV dose adjustments based on patient's size. FINDINGS: HEAD: No acute intracranial hemorrhage, extra-axial collection, mass effect or evidence of acute infarct. Mild parenchymal volume loss and chronic microangiopathic changes. Cavum septum pellucidum et vergae, anatomic variant. Atherosclerotic vascular calcifications. Absent jackson ocular lenses. Intact skull base and calvarium. Well-aerated paranasal sinuses and mastoid air cells. CERVICAL SPINE: No acute fracture or subluxation. Positional and/or degenerative straightening of the cervical lordosis. Mild multilevel spondylotic changes. No prevertebral soft tissue swelling. CT/Brain/Head without Contrast IMPRESSION: No acute traumatic findings. Chronic/degenerative changes as described. Reading Location: [id number]
--- NOTE | 2025-06-15 23:20 | CT_ITS ---
EXAM: CT BRAIN/HEAD; SPINE CERVICAL WITHOUT CONTRAST CLINICAL HISTORY: INTOXICATED, HIT HEAD?; FALL, INTOXICATED COMPARISON: 06/03/2025 TECHNIQUE: Noncontrast CT images of the head and cervical spine with multiplanar reconstructions. Dose reduction techniques were used including intermediate exposure control (AEC),iterative reconstruction technique, and/or mA and/or KV dose adjustments based on patient's size. FINDINGS: HEAD: No acute intracranial hemorrhage, extra-axial collection, mass effect or evidence of acute infarct. Mild parenchymal volume loss and chronic microangiopathic changes. Cavum septum pellucidum et vergae, anatomic variant. Atherosclerotic vascular calcifications. Absent [place] ocular lenses. Intact skull base and calvarium. Well-aerated paranasal sinuses and mastoid air cells. CERVICAL SPINE: No acute fracture or subluxation. Positional and/or degenerative straightening of the cervical lordosis. Mild multilevel spondylotic changes. No prevertebral soft tissue swelling. CT/Spine Cervical without Contras IMPRESSION: No acute traumatic findings. Chronic/degenerative changes as described. Reading Location: [id number]
[2025-06-16] VITALS (8 sets, daily range): BP systolic 105–135; BP diastolic 70–104; PULSE 75–89; RESP 16–18; TEMP 36.8; O2SAT 95–100
--- NOTE | 2025-06-16 04:57 | ED.RN ---
This RN received a call from the patient's brother, Kavin, at this time. This RN gave Kavin an update on the patient's condition and plan of care. Kavin informed this RN that he would be calling back in an hour in order to obtain another update and at that point, Kavin would be willing to pear picker the patient and bring him home. notified.
--- NOTE | 2025-06-16 06:51 | ED.RN ---
This RN reached out to the patient's brother, whom he lives with, Luís who informed this RN that he is unable to drive d/t a recent eye surgery. This RN called the the patient's brother Kavin, who is on the way to crop picker the patient and take him home. ETA around 0800.
== END 2025-06-16 08:07 | disposition home or self-care (01) ==
PROVIDERS: Emergency Provider Student in an Organized Health Care Education/Training Program; PCP Family Medicine; Visit Provider Student in an Organized Health Care Education/Training Program
DX: F10.129 Alcohol abuse with intoxication, unspecified (principal); J44.9 Chronic obstructive pulmonary disease, unspecified; I10 Essential (primary) hypertension; F17.220 Nicotine dependence, chewing tobacco, uncomplicated; Z79.82 Long term (current) use of aspirin; Z79.899 Other long term (current) drug therapy; W19.XXXA Unspecified fall, initial encounter
CPT/HCPCS: 70450; 71045; 72125; 72170; 80053; 80307; 81001; 82077; 82140; 83690; 84484; 85025; 85610; 85730; 93005; 96361; 96374; 96375; 96376; 99285; A4216

== ENCOUNTER 2025-07-11 15:20 | Emergency (ER) | payer MEDICARE, SELFPAY ==
[2025-07-11 15:21] VITALS: BP 116/81; PULSE 79; RESP 18; TEMP 36.5; O2SAT 96; BMI 23.1
--- NOTE | 2025-07-11 15:30 | RAD_ITS ---
PROCEDURE: CHEST PA AND LATERAL 07/11/2025 REASON FOR EXAM: CHEST PAIN TECHNIQUE: Procedure Code: RADCXR Modality: DX Procedure: CHEST PA AND LATERAL COMPARISON: June 15, 2025 FINDINGS: Hardware: EKG leads Heart: The heart size is normal. Mediastinum: There are atherosclerotic calcifications of the thoracic aorta. Lungs: Lungs are clear. No pneumothorax or pleural effusion. Bones: The bones are unremarkable. RAD/Chest PA and Lateral IMPRESSION: No acute cardiopulmonary abnormality. Reading Location: [id number]
--- NOTE | 2025-07-11 15:30 | CT_ITS ---
PROCEDURE: BRAIN/HEAD WITHOUT CONTRAST 07/11/2025 REASON FOR EXAM: POSTERIOR HEAD TRAUMA POST FALL Blunt trauma. TECHNIQUE: Procedure Code: CTBR Modality: CT Procedure: BRAIN/HEAD WITHOUT CONTRAST Coronal and Sagittal reconstruction series were provided. One or more dose reduction techniques were used (e.g., Automated exposure control, adjustment of the mA and/or kV according to patient size, use of iterative reconstruction technique. RADIATION DOSE SUMMARY: CTDlvol: 45 mGy DLP: 880 mGycm COMPARISON: May 2025 FINDINGS: Cerebrum: Mild loss ofcerebral volume. Negative for mass the frontal, parietal, temporal and occipital lobes preliminary withoutnegative. White matter: Negative for periventricular white matter changes. Cerebellum: Negative. Negative for mass. Negative for acute infarction. CSF pathways and ventricles: Cavum septum pellucidum and vergae. Normal variants. Negative for ventricular dilatation or obstruction. Basal ganglia and thalami: Negative. No acute infarctions. Brainstem: Midbrain, obi and medulla remove thatnegative. Calvarium: Negative. Negative for fractures. Orbital structures: Globes negative. Extraocular muscles negative. Paranasal sinuses: No air fluid levels. Remainder of the sinuses negative. Vascular structures: [id number] calcifications of the distal intracranial internal carotid arteries. Soft tissues: Negative. Other: : Negative for acute intracranial hemorrhage. Negative for acute infarction. Remainder of exam negative. CT/Brain/Head without Contrast IMPRESSION: Negative for acute intracranial pathology. Reading Location: [id number]
--- NOTE | 2025-07-11 15:31 | EX.ED.DYSGE1 ---
HPI History of Present Illness Chief Complaint: Syncope Detail of Chief Complaint: Near syncope with fall at home. No LOC. Informant: patient and EMS Onset/Context/Timing Onset: Today Context: Sudden Onset Timing: Intermittent Current Severity: Gone Maximum Severity: Moderate Narrative Narrative: 70-year-old male history of A-fib, COPD, substance abuse and alcohol abuse, GI bleed and hypertension. Said he has not been drinking lately. Today felt lightheaded at home and fell to the ground. Denies LOC. Occurred around 2:00 today. Currently symptom-free. When he fell he did hit his head. He is on no blood thinners. He states he was hospitalized about 3 months ago for alcohol abuse. Denies recent illness other than a mild cough. Prior similar symptoms: No Recent Illness/Hospitalization: No PFSH PFSH Medical History A-fib Malnutrition Pulmonary mass CHI (closed head injury) Substance abuse Anxiety Depression Smoker COPD (chronic obstructive pulmonary disease) Irregular heart beat Hypertension Behavior concern in adult At high risk for malnutrition Mass of left lung Hyponatremia Alcohol withdrawal Acute blood loss anemia GI bleed Chewing tobacco use History of cancer tonsil Anxiety and depression ETOH abuse Home Medications ?Medication ?Instructions ?Recorded ?Last Taken ?Type cholecalciferol (vitamin D3) 25 25 mcg PO DAILY 10/14/23 Unknown History mcg (1,000 unit) tablet aspirin 81 mg tablet 81 mg PO DAILY 06/15/25 Unknown History cholecalciferol (vitamin D3) 1,250 1,250 mcg PO QWEEK 06/15/25 Unknown History mcg (50,000 unit) capsule divalproex 500 mg tablet,extended 1,000 mg PO DAILY 06/15/25 Unknown History release 24 hr hydroxyzine HCl 25 mg tablet 25 mg PO Q4H PRN PRN agitation 06/15/25 Unknown History metoprolol tartrate 50 mg tablet 50 mg PO DAILY 06/15/25 Unknown History naltrexone 50 mg tablet 50 mg PO DAILY 06/15/25 Unknown History olanzapine 2.5 mg tablet 2.5 mg PO DAILY 06/15/25 Unknown History olanzapine 5 mg tablet 5 mg PO DAILY 06/15/25 Unknown History sertraline 50 mg tablet 50 mg PO DAILY depressive disorder 06/15/25 Unknown History Allergy/AdvReac Type Severity Reaction Status Date / Time poison mike extract Allergy Mild RASH Verified 07/11/25 15:24 Family History Mother Diabetes Father Diabetes Brother Colon cancer Surgical History History of tonsillectomy and adenoidectomy Social History household members: other details: Lives with his son. Smoking Status: Current some day smoker tobacco type: smokeless tobacco Smokeless tobacco user: chewing tobacco and other alcohol intake: current alcohol intake frequency: 3 or more drinks per day details: 8-10 beers daily coupled with hard liquor. substance use type: does not use ROS ROS ED ROS Narrative Cough. Denies recent illness otherwise. Constitutional Constitutional ED: Denies chills or fever(s) Eyes Eyes: Denies blurry vision ENT ENT ED: Denies ear pain Cardiovascular Cardiovascular: Denies chest pain Respiratory/Chest Respiratory/Chest: Reports cough; Denies dyspnea Gastrointestinal Gastrointestinal: Denies abdominal pain Genitourinary Genitourinary ED: Denies dysuria or hematuria Musculoskeletal Musculoskeletal: Denies arthralgias Integumentary Denies abscess Neurologic Neurologic: Denies headache(s) Psychiatric Psychiatric: Denies anxiety Endocrine Endocrinology: Denies cold intolerance Hematologic/Lymphatic Hematologic/Lymphatic: Reports none Allergic/Immunologic Allergic/Immunologic ED: Denies mouth swelling, tongue swelling or urticaria EXAM Physical Exam Narrative Exam Narrative: 70-year-old male sitting upright in bed vital signs are stable afebrile he does not look septic toxic is no acute distress. His pulse ox is 96% on room air no signs hypoxia. H EENT exam pupils round react light. Moist mutes membranes. No signs of traumaposterior scalp was about quarter sized hematoma. No laceration no blood. Minimally tender. C-spine and neck nontender. Back nontender. Lungs clear to auscultation bilaterally. Few scattered wheezes. Heart regular rhythm no murmur rate about 80. Chest wall ribs nontender. Abdomen soft nontender. No peritoneal signs no distention. Pelvic girdle intact. Moving all 4 extremities. Nontender no deformity. 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 Normal dorsi plantar flexion. Neurologically is awake alert. Answering questions and following commands. Const Vital Signs: 07/11/25 15:21 07/11/25 15:24 07/11/25 16:28 Temperature 97.7 F L Temperature Source Oral Pulse Rate 79 Respiratory Rate 18 Respiratory Effort Normal Respiratory Pattern Normal Blood Pressure 116/81 H Blood Pressure Mean 92 Pulse Ox 96 Oxygen Delivery Method Room Air Room Air MDM MDM MDM Narrative Medical decision making narrative: 70-year-old male near syncopal event at home where he fell and hit his head. CAT scan of his brain and labs will be obtained. Currently his exam is benign other than contusion the back of his scalp. He is awake alert. He denies drinking I do not smell any obvious alcohol. This could be a cardiac event he has a history of A-fib. Versus other etiologies. Repeat exam at 5 PM patient doing well. Nursing staff ambulated and he ambulated well. He and I discussed his test results. Patient be discharged home near syncope with fall of uncertain etiology. He wants to be discharged. He does not want any further testing. History & Record Review Discussion w/independent historian: Patient Additional record(s) reviewed:: Prior inpatient record, Prior outpatient record, Prior ED visit and Prior labs Lab Data Attestation: I reviewed the patient's lab results. Lab results narrative: CBC shows a white count of 6. H&H of 13 and 40. Platelets 197 Chemistries show gap of 10. BUN and creatinine are 31 and 1.6. Glucose 100. Initial troponin 23. Alcohol negative. CT brain showed no acute abnormality. Chest x-ray showed no acute abnormality. Labs: Laboratory Results - last 24 hr 07/11/25 16:25 WBC 6.2 RBC 4.28 L Hgb 13.2 Hct 40.4 MCV 94.4 H MCH 30.8 MCHC 32.7 RDW Std Deviation 44.1 H RDW Coeff of Jesus 12.7 Plt Count 197 MPV 10.2 Immature Gran % (Auto) 0.300 Neut % (Auto) 73.9 H Lymph % (Auto) 11.8 L [place] % (Auto) 9.2 Eos % (Auto) 4.0 Baso % (Auto) 0.8 Absolute Neuts (auto) 4.6 Absolute Lymphs (auto) 0.73 L Nucleated RBC % 0 Sodium 137 Potassium 4.0 Chloride 101 Carbon Dioxide 26.3 Anion Gap 10 BUN 31 H Creatinine 1.60 H Estim Creat Clear Calc 44.99 L Est GFR (MDRD) Non-Af 46 L BUN/Creatinine Ratio 19.4 Glucose 100 H Calcium 9.2 Troponin T High Sens 23 H D Ethyl Alcohol < 10.1 Radiography Chest X-Ray - ED: 2 View, Read by ED Physician, Heart, Lungs, Mediastinum, Bony Structures, No Acute Disease and Chronic Changes Diagnostic Testing: Clinical Impression(s) from Imaging Studies Brain CT 07/11/25 15:30 IMPRESSION: Negative for acute intracranial pathology. Reading Location: [facility] Chest x-ray, 2 views, AP and lateral interpreted by myself shows normal cardiac silhouette. Normal mediastinum. Normal lung gibbons. Chronic changes no acute process. Rhythm Strip Rhythm Strip: A-fib Rate: 80 Ectopy: None EKG Initial EKG: Attestation: I personally reviewed and interpreted this EKG as follows: Interpretation: Atrial Fibrillation Comments: A-fib rate 80 no acute signs of GA or ischemia. Discharge Plan Triage Chief Complaint: Syncope ED Provider: Jon Savage Dx/Rx/DC Orders Clinical Impression: Near syncope, Fall, Closed head injury, History of hypertension, History of atrial fibrillation Instructions: ED Head Injury (Adult), ED Near-Fainting, Uncertain Cause Prescriptions: No Action cholecalciferol (vitamin D3) 25 mcg (1,000 unit) tablet 25 mcg PO DAILY aspirin 81 mg tablet 81 mg PO DAILY divalproex 500 mg tablet extended release 24 hr 1,000 mg PO DAILY hydroxyzine HCl 25 mg tablet 25 mg PO Q4H PRN PRN (Reason: agitation) naltrexone 50 mg tablet 50 mg PO DAILY olanzapine 5 mg tablet 5 mg PO DAILY olanzapine 2.5 mg tablet 2.5 mg PO DAILY metoprolol tartrate 50 mg tablet 50 mg PO DAILY sertraline 50 mg tablet 50 mg PO DAILY cholecalciferol (vitamin D3) 1,250 mcg (50,000 unit) capsule 1,250 mcg PO QWEEK Primary Care Provider: Rena Springer Referrals: Rena Springer MD [Primary Care Provider, Medical] - As Needed Activity Restrictions/Additional Instructions: Ice to your scalp. Tylenol for any pain. Follow-up with your doctor if not improving. Return if feeling worse. Your lab work, CAT scan, x-ray and EKG today looked good. Print Language: Kittitian Disposition Disposition: Home, Self Care
--- NOTE | 2025-07-11 15:32 | EKG12_ITS ---
Test Reason : DIZZINESS Blood Pressure : */* mmHG Vent. Rate : 80 BPM Atrial Rate : * BPM P-R Int : * ms QRS Dur : 88 ms QT Int : 386 ms P-R-T Axes : * 44 52 degrees QTcB Int : 445 ms Atrial fibrillation with a competing junctional pacemaker Low voltage QRS Abnormal ECG Confirmed by BECCA BERNAL, CAROL ([id number]), editorial assistant BREANN CORNEJO ([id number]) on 07/13/2025 8:54:46 AM Referred By: Confirmed By: CAROL HUDSON MD
[2025-07-11 16:40] LABS: Hematocrit 40.4 % (40-54); Hemoglobin 13.2 g/dL (13.0-16.5); Immature Granulocytes Count 0.020 X10^3/uL (0.0-0.0); Mean Corp Hgb Conc 32.7 g/dL (32-36); Mean Corpuscular Volume 94.4 fL (80-94); Mean Platelet Vol. 10.2 fl (6.2-12.0); NRBC Flagged by Analyzer 0 % (0-5); Platelet Count 197 K/mm3 (150-450); RBC Distribution Width CV 12.7 % (11.6-14.6); RBC Distribution Width SD 44.1 fl (35.1-43.9); Red Blood Count 4.28 M/mm3 (4.6-6.2); White Blood Count 6.2 K/mm3 (4.4-11.0)
[2025-07-11 16:56] LABS: Alcohol, Blood (Medical)-Serum < 10.1 mg/dL (<=10.0); Anion Gap 10 (5-15); BUN 31 mg/dL (4-19); BUN/Creat Ratio 19.4 RATIO (10-20); Calcium,Total 9.2 mg/dL (7.6-11.0); Carbon Dioxide 26.3 mmol/L (21.0-32.0); Chloride 101 mmol/L (98-108); Estimated Creatinine Clearance 44.99 ml/min (50-250); Glucose 100 mg/dL (70-99); Potassium 4.0 mmol/L (3.3-5.1); Troponin T High Sensitivity 23 ng/L (<=22)
--- OUTSIDE RECORDS SUMMARY | 2025-07-11 16:57 | XMS RPT_ITS | CCD ---
Author Organization [facility] Care Team Providers Care Claims Analyst Name Role Phone VAUGHN, JESSE J Unavailable Unavailable VAUGHN JESSE Nancy Unavailable Unavailable JOHN SPRINGER Unavailable Unavailable Jesse Espinal Unavailable Unavailable John Springer Primary Care Provider John Springer MD Primary Care Provider John Springer MD Primary Care Provider John Springer MD Primary Care Provider Michelle Leavitt DO Unavailable Dr. Kelechi Miles Emergency Provider Dr. Natty Guerrero Admit Provider Dr. Natty Guerrero Other Provider Dr. Galen Souza Other Provider Minoo, Dr. Handley Attending Provider Dr. Natty Guerrero Attending Provider Dr. Galen Souza Attending Provider Dr. Natalie Dailey Attending Provider Dr. Natalie Dailey Other Provider Dr. Sofya Portillo Other Provider Dr. Chau Schmitz Other Provider Dr. Daniel Inman Emergency Provider [phone] John Springer Primary Care Provider Dr. Joey Luong Admit Provider Dr. Joey Luong Attending Provider Dr. Joey Luong Other Provider Unavailable Primary Care Provider UnavailTITI Chaney Attending Unavailable Dr. Natalie Dailey Referring Provider Dr. Seema Davis Attending Provider Dr. Seema Davis Other Provider Dr. Galen Souza Admit Provider Dr. Kelechi Miles Emergency Provider Dr. Natty Guerrero Admit Provider Dr. Natty Guerrero Other Provider Dr. Galen Souza Attending Provider Dr. Galen Souza Other Provider Dr. Natalie Dailey Referring Provider Minoo, Dr. Handley Attending Provider Dr. John Springer Primary Care Provider Dr. Kelechi Miles Emergency Provider [phone] Galen Souza Attending Provider Dr. Galen Souza Other Provider Dr. Papo Cochran Emergency Provider Dr. Hilaria Myrick Admit Provider Dr. Hilaria Myrick Attending Provider Dr. Hilaria Myrick Other Provider Dr. Truman Glaser Other Provider Dr. Peter Escalante Attending Provider Dr. Peter Escalante Other Provider Dr. Jerri Ornelas Other Provider Unavailable Dr. Michele Abdalla Other Provider Dr. Mann Jaime Other Provider Unavailab Curry HEAD SAMPLER, HEAD SAMPLER-C Gaby Other Provider Dr. Joey Luong Attending Provider Dr. Joey Luong Other Provider Gian BERNAL, John Primary Care Provider Dagmar DO, Michelle E Unavailable Gian BERNAL, John Primary Care Provider [facility] DO, Michelle E Unavailable Dr. John Springer Primary Care Provider Dr. Kelechi Miles Emergency Provider Dr. Floyd Mcadams Admit Provider [phone] Floyd Mcadams Other Provider [phone] [address] Jero Nicole Attending Provider Dr. Jero Nicole Other Provider Dr. Galen Souza Attending Provider Dr. Galen Souza Other Provider GIAN, JOHN Primary Care Unavailable MARKIE MCCARTHY Referring Unavailable JEANNIE MAGANA Referring Unavailable GIAN, JOHN Primary Care Unavailable CARRIER, JENNIFER Referring Unavailable GIAN, JOHN Primary Care Unavailable CARRIER, JENNIFER Referring Unavailable GIAN, JOHN Primary Care Unavailable MARKIE MCCARTHY Referring Unavailable GIAN, JOHN Primary Care Unavailable ARMEN PACHECO Referring Unavailable GIAN, JOHN Primary Care Unavailable JACINTO CLARK Admitting Unavailabl e MARKIE MCCARTHY Attending Unavailable INGRID CARVALHO Consulting Unavailable GIAN, JOHN Primary Care Unavailable JAYDON GALLEGOS Consulting Unavailable MARKIE MCCARTHY Consulting Unavailable DONNY MATAMOROS Consulting Unavailable KELECHI MLIES Referring Unavailable DONNY MATAMOROS Consulting Unavailable TACHO ROBERTS Admitting Unavailable TACHO ROBERTS Attending Unavailable GIAN, JOHN Primary Care Unavailable EDUARD WILKINSON Attending Unavailable EDUARD WILKINSON Referring Unavailable GIAN, JOHN Primary Care Unavailable TACHO ROBERTS Attending Unavailable TACHO ROBERTS Referring Unavailable GIAN, JOHN Primary Care Unavailable Dagmar DO, Michelle E Unavailable Gian BERNAL, John Primary Care Provider Unavailable Primary Care Provider Unavailjimbo Springer MD, John Waldrop Primary Care Provi tony DOMONIQUE SOLER Admitting Unavailable JOHNIE BRADLEY Referring Unavailable COREY NIEVES Attending Unavailjimbo e [facility] Unava ilable ARIANNA FELIX Consulting Unavailable GIAN, JOHN [facility] Primary Care Unava ilable CESAR, ABU NASH Attending Unavailable CESAR, ABU NASH Admitting Unavailable JAZ CHAN Consulting Unavailable AJITH WONG Attending Unavailable JUNIOR JARAMILLO Admitting Unavailable GIAN, JOHN Primary Care Unavailable Gian, John Primary Care Unavailable Thony Rivas Attending Unavailable Sandhya Bailey Attending Unavailable [facility], John Primary Care Unavailable Gian, John Primary Care Unavailable Home Caceres Attending Unavailable Gian, John Primary Care Unavailable Galen Cohen Attending Unavailable Allergies Allergy Classification Reported Allergen(s) Allergy Type Date of Onset Reaction(s) Facility (10 sources) POISON RICH EXTRACT Drug Allergy 02-26-2023 [facility] (1 source) poison rich extract Drug allergy (disorder) 06-03-2025 [facility] Repository Medications Current Medications Medication Drug Class(es) Dates Sig (Normalized) Sig (Original) acetaminophen 21.7 mg/ml / HYDROcodone bitartrate 0.5 mg/ml oral solution (1 source) Opioid Agonist Start: 03-04-2020 End: 03-11-2020 take 10 mL by mouth every six hours as needed for pain, then take 15 mL by mouth as needed for pain HYDROcodone-acet aminophen 7.5-325 MG per 15ML solution 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 240 mL 0 03/04/2020 03/11/2020 Active alginic acid 200 mg / calcium carbonate 80 mg / magnesium trisilicate 20 mg / sodium bicarbonate 70 mg oral tablet (20 sources) calcium carbonate (TUMS) 500 MG chewable tablet Take 1 tablet by mouth as needed for Heartburn 0 Active amiodarone hydrochloride 100 mg oral tablet (2 sources) Antiarrhythmic Start: 10-14-2023 take 200 mg by mouth once daily Amiodarone Active 200 MG PO DAILY October 14, 2023 12:00am apixaban 5 mg oral tablet (14 sources) Factor Xa Inhibitor Start: 08-11-2023 End: 07-15-2024 take 1 tablet by mouth twice daily apixaban (Eliquis) 5 MG tablet Take 1 tablet (5 mg) by mouth 2 times daily. 07/15/2024 Active benzocaine 15 mg / menthol 2.6 mg oral lozenge (2 sources) Standardized Chemical Allergen Start: 10-15-2023 Benzocaine-Menth ol (Cepacol Sore Throat (Kwasi-Men)) 15-2.6 mg lozenge Active 1 LOZENGE MUCOUS MEM Q2H October 15, 2023 12:00am Budesonide-Formotero l (20 sources) Corticosteroid, beta2-Adrenergic Agonist Start: 10-15-2023 Budesonide-Formo terol (Symbicort) 160-4.5 mcg/actuation HFA aerosol inhaler Active 1 INH INHALATION TWICE A DAY October 15, 2023 12:00am Start: 03-13-2022 End: 07-14-2024 take 2 puff(s) by inhalation at bedtime budesonide-formoterol (Symbicort) 160-4.5 MCG/ACT inhaler Inhale 2 puffs in the morning and at bedtime. 03/13/2022 07/14/2024 Discontinued (Formulary change) Start: 03-13-2022 Start: 12-24-2019 End: 03-23-2020 take 2 puff(s) by inhalation twice daily budesonide-formoterol (SYMBICORT) 160-4.5 MCG/ACT AERO Indications: Chronic obstructive pulmonary disease, unspecified COPD type (HCC) , Well adult health check Inhale 2 puffs into the lungs 2 times daily 3 Inhaler 1 12/24/2019 Active bumetanide 1 mg oral tablet (2 sources) Loop Diuretic Start: 10-14-2023 take 1 mg by mouth twice daily Bumetanide Active 1 MG PO TWICE A DAY October 14, 2023 12:00am calcium carbonate 500 mg chewable tablet (17 sources) Start: 10-14-2023 Calcium Carbon ate (Calcium Carbonate 215 Mg Calcium (500 Mg) Chewable Tablet) 215 mg calcium (500 mg) tablet,chewable Active 537.5 MG PO DAILY October 14, 2023 12:00am calcium carbonat e (Os-Altagracia) 1250 (500 Ca) MG chewable tablet Chew 1 tablet. Active calcium carbonat e (TUMS) 500 MG chewable tablet Take 1 tablet by mouth as needed for Heartburn 0 Active calcium chloride 0.0014 meq/ml / potassium chloride 0.004 meq/ml / sodium chloride 0.103 meq/ml / sodium lactate 0.028 meq/ml injectable solution (1 source) Start: 03-04-2020 lactated ringers infusion cevimeline 30 mg oral capsule (6 sources) Cholinergic Receptor Agonist Start: 09-28-2020 take 1 capsule by mouth three times daily cevimeline (EVOXAC) 30 MG capsule Take 1 capsule by mouth 3 times daily 90 capsule 2 09/28/2020 Active cholecalciferol 0.025 mg oral tablet (20 sources) Vitamin D Start: 10-14-2023 take 25 ug by mouth once daily Cholecalciferol (Vitamin D3) Active 25 MCG PO DAILY October 14, 2023 12:00am Start: 08-11-2023 End: 08-22-2023 take 1000 [IU] by mouth once daily 1,000 Units, Oral, Daily, First dose on 08/11/23 at 1700 take 1 tablet by lela th in the morning cholecalciferol (Vitamin D-3) 25 MCG (1000 UT) tablet Take 1,000 Units by mouth in the morning. Active Cod Liver Oil (20 sources) COD LIVER OIL PO Take by mouth 0 Active COD LIVER OIL PO (8 sources) COD LIVER OIL PO Take by mouth. 0 Active COD LIVER OIL PO Take by mouth 0 Active digoxin 0.125 mg oral tablet (2 sources) Cardiac Glycoside Start: 10-14-2023 take 62.5 ug by mouth once daily Digoxin Active 62.5 MCG PO DAILY October 14, 2023 12:00am 1 ml diphenhydrAMINE hydrochloride 50 mg/ml cartridge (1 source) Histamine-1 Receptor Antagonist Start: 03-04-2020 End: 03-04-2020 diphenhydrAMINE (BENADRYL) injection 12.5 mg Drug or medicament (substance) (12 sources) End: 08-22-2023 End: 08-11-2023 empagliflozin 10 mg oral tablet (2 sources) Sodium-Glucose Cotransporter 2 Inhibitor Start: 10-14-2023 take 1 tablet by mouth once daily Empagliflozin (Empagliflozin 10 Mg Tablet) 10 mg tablet Active 10 MG PO DAILY October 14, 2023 12:00am fluconazole 200 mg oral tablet (19 sources) Azole Antifungal Start: 05-07-2020 fluconazole (DIFLUCAN) 200 MG tablet End: 05-11-2020 take 1 tablet by mouth once daily fluconazole (DIFLUCAN) 100 MG tablet Take 100 mg by mouth daily 0 05/11/2020 Discontinued (LIST CLEANUP) Fluticasone Propion-Salmeterol (2 sources) Corticosteroid, beta2-Adrenergic Agonist Start: 10-14-2023 Fluticasone Propion-Salmeterol Active 1 EACH INHALATION DAILY October 14, 2023 12:00am 1 ml hydrALAZINE hydrochloride 20 mg/ml injection (1 source) Arteriolar Vasodilator Start: 03-04-2020 hydrALAZINE (APRESOLINE) injection 5 mg 1 ml HYDROmorphone hydrochloride 1 mg/ml cartridge (4 sources) Opioid Agonist Start: 03-04-2020 HYDROmorphone (DILAUDID) injection 1 mg Start: 03-04-2020 HYDROmorphone (DILAUDID) injection 0.25 mg Start: 03-04-2020 HYDROmorphone (DILAUDID) injection 0.5 mg ibuprofen 200 mg oral tablet (20 sources) Nonsteroidal Anti-inflammatory Drug take 1 tablet by mouth every six hours as needed for pain ibuprofen (ADVIL;MOTRIN) 200 MG tablet Take 200 mg by mouth every 6 hours as needed for Pain 0 Active Ibuprofen-diphenhydr AMINE Cit (ADVIL PM PO) (17 sources) take 1 capsule by mouth once daily as needed Ibuprofen-diphenhydr AMINE Cit (ADVIL PM PO) Take 1 capsule by mouth nightly as needed 0 Active 4 ml labetalol hydrochloride 5 mg/ml cartridge (1 source) beta-Adrenergic Ramiro Start: labetalol (NORMODYNE;TRANDATE) injection 5 mg lidocaine hydrochloride 20 mg/ml mucous membrane topical solution (4 sources) Antiarrhythmic, Amide Local Anesthetic Start: lidocaine viscous hcl (XYLOCAINE) 2 % SOLN solution TAKE 1 2 TEASPOONS (5 10ML) BY MOUTH EVERY 4 HOURS NEEDED FOR PAIN 0 06/22/2020 Active Start: 03-04-2020 End: 03-04-2020 lidocaine PF 1 % injection 1 mL 1 ml meperidine hydrochloride 50 mg/ml injection (1 source) Opioid Agonist Start: 03-04-2020 meperidine (DEMEROL) injection 12.5 mg metoprolol tartrate 100 mg oral tablet (16 sources) beta-Adrenergic Ramiro Start: 07-12-2024 End: 07-15-2024 take 100 mg by mouth twice daily 100 mg, Oral, 2 times daily, First dose on 07/12/24 at 0045 Start: 08-22-2023 End: 07-15-2025 take 1 tablet by mouth twice daily metoprolol tartrate (Lopressor) 100 MG tablet Take 1 tablet (100 mg) by mouth 2 times daily. 07/15/2024 07/15/2025 Active Start: 08-14-2023 End: 08-22-2023 take 100 mg by mouth twice daily 100 mg, Oral, 2 times daily, First dose (after last modification) on Sun08/14/23 at 2100 Start: 08-13-2023 End: 08-14-2023 take 50 mg by mouth twice daily 50 mg, Oral, 2 times d aily, First dose (after last modification) on Sun08/13/23 at 2100 Start: 08-12-2023 End: 08-13-2023 take 25 mg by mouth twice daily 25 mg, Oral, 2 times d aily, First dose (after last modification) on Sun08/12/23 at 1800 mirtazapine 7.5 mg oral tablet (2 sources) Start: 10-14-2023 take 7.5 mg by mouth at bedtime Mirtazapine Active 7.5 MG PO AT BEDTIME October 14, 2023 12:00am Misc Natural Products (GLUCOSAMINE CHOND COMPLEX/MSM PO) (20 sources) Misc Natural Pro ducts (GLUCOSAMINE CHOND COMPLEX/MSM PO) Take by mouth. 0 Active Misc Natural Pro ducts (GLUCOSAMINE CHOND COMPLEX/MSM PO) Take by mouth 0 Active Multiple Vitamins-Minerals ( CENTRUM ADULTS PO) (20 sources) Multiple Vitamin s-Minerals (CENTRUM ADULTS PO) Take by mouth 0 Active MULTIPLE VITAMINS-MINERALS E R PO (10 sources) MULTIPLE VITAMIN S-MINERALS ER PO Take by mouth. Active MULTIPLE VITAMIN S-MINERALS ER PO Take by mouth. 0 Active Knjrouew-Ouh-Pticmzn Sulfate (One Daily Multi-Vit W-Mineral) 4.5 mg iron tablet (2 sources) Start: 10-15-2023 take 1 tablet by mouth once daily Hjiqjecn-Ckp-Ypvkmbh Sulfate (One Daily Multi-Vit W-Mineral) 4.5 mg iron tablet Active 1 TABLET PO DAILY October 15, 2023 12:00am NONFORMULARY (20 sources) NONFORMULARY Indications: Saw Palmento Indications: Saw Palmento 0 Active Nutritional Supplements (DHEA PO) (20 sources) Nutritional Supp lements (DHEA PO) Take by mouth 0 Active [place]-3 Fatty Acids (FISH OIL PO) (20 sources) [place]-3 Fatty Ac ids (FISH OIL PO) Take by mouth 0 Active oxyCODONE hydrochloride 1 mg/ml oral solution (3 sources) Opioid Agonist Start: 06-18-2020 End: 06-25-2020 oxyCODONE (ROXICODONE) 5 MG/5ML solution Indications: Malignant neoplasm of tonsil (HCC) Take 5 mLs by mouth every 4 hours as needed for Pain for up to 7 days. Take 5-10 mg every 4 hours 200 mL 0 06/18/2020 06/25/2020 Active Start: 03-04-2020 End: 03-04-2020 oxyCODONE (ROXICODONE) immed iate release tablet 5 mg Probiotic Product (PROBIOTIC DAILY PO) (17 sources) take 3 capsules by mouth once daily Probiotic Product (PROBIOTIC DAILY PO) Take 3 capsules by mouth daily Faustino Adan's gut health 0 Active PROBIOTIC PRODUCT PO (5 sources) PROBIOTIC PRODUC T PO Take 3 capsules by mouth. 0 Active 1 ml promethazine hydrochloride 25 mg/ml injection (1 source) Phenothiazine Start: End: promethazine (PHENERGAN) injection 6.25 mg pyridoxine hydrochloride 25 mg oral tablet (8 sources) Start: End: 025 take 1 tablet by mouth once daily pyridoxine (Vitamin B-6) 25 MG tablet Take 1 tablet (25 mg) by mouth daily. 30 tablet 11 08/22/2023 08/21/2024 Active Red Yeast Rice Extract (RED YEAST RICE PO) (20 sources) Red Yeast Rice Extract (RED YEAST RICE PO) Take by mouth 0 Active sacubitril 24 mg / valsartan 26 mg oral tablet (2 sources) Angiotensin 2 Receptor Ramiro Start: take 1 tablet by mouth twice daily Sacubitril-Valsartan (Sacubitril 24 Mg-Valsartan 26 Mg Tablet) 24-26 mg tablet Active 1 TABLET PO TWICE A DAY October 14, 2023 12:00am spironolactone 25 mg oral tablet (2 sources) Aldosterone Antagonist Start: take 25 mg by mouth once daily Spironolactone Active 25 MG PO DAILY October 14, 2023 12:00am TURMERIC CURCUMIN PO (20 sources) TURMERIC CURCUMI N PO Take by mouth. 0 Active TURMERIC CURCUMI N PO Take by mouth 0 Active VITAMIN E PO (20 sources) VITAMIN E PO Lucho e by mouth. 0 Active VITAMIN E PO Lucho e by mouth 0 Active Completed/Discontinued Medications Medication Drug Class(es) Dates Sig (Normalized) Sig (Original) acetaminophen 325 mg oral tablet (9 sources) Start: 07-12-2024 End: 07-15-2024 take 1 tablet by mouth every six hours as needed for pain and headache and fever 650 mg, Oral, Every 6 hours PRN, mild pain (1-3), headaches, fever, Starting on 07/12/24 at 0056, Maximum dose of acetaminophen is 4000 mg from all sources in 24 hours. Start: 02-27-2023 End: 04-16-2023 take 500 mg by mouth every four hours as needed Acetaminophen Discontinued 500 MG PO EVERY 4 HOURS NEEDED 0 February 27, 2023 12:00am April 16, 2023 3:45pm Start: 03-04-2020 End: 03-04-2020 acetaminophen (TYLENOL) tabl et 1,000 mg [id number] 200 actuat albuterol 0.09 mg/actuat metered dose inhaler (20 sources) beta2-Adrenergic Agonist Start: 10-14-2023 take 1 puff(s) by inhalation every four hours as needed Albuterol Sulfate Active 1 PUFF INHALATION EVERY 4 HOURS NEEDED October 14, 2023 12:00am Start: 09-24-2017 End: 07-15-2024 take 2 puff(s) by inhalation every four hours as needed albuterol 108 (90 Base) MCG/ACT inhaler Inhale 2 puffs every 4 hours as needed. 09/24/2017 Active Start: 09-24-2017 Start: 09-24-2017 take 2 puff(s) by in halation every four hours as needed for wheezing albuterol sulfate HFA (VENTOLIN HFA) 108 (90 Base) MCG/ACT inhaler Indications: Chronic obstructive pulmonary disease, unspecified COPD type (HCC) Inhale 2 puffs into the lungs every 4 hours as needed for Wheezing or Shortness of Breath 1 Inhaler 5 09/24/2017 Active albuterol 0.833 mg/ml / ipratropium bromide 0.167 mg/ml inhalation solution (2 sources) Anticholinergic, beta2-Adrenergic Agonist Start: 08-11-2023 End: 08-13-2023 3 mL, Nebulization, 3 times daily, First dose on 08/11/23 at 2000, For 6 doses Ascorbic Acid (20 sources) Vitamin C End: 04-20-2020 Ascorbic Acid (VITAMIN C PO) Take by mouth 0 04/20/2020 Discontinued (Patient Choice) Ascorbic Acid (V ITAMIN C PO) Take by mouth 0 Active azithromycin 250 mg oral tablet (1 source) Macrolide Antimicrobial Start: 12-24-2019 End: 03-04-2020 azithromycin (ZITHROMAX Z-RAVEN) 250 MG tablet Indications: Lesion of tonsil Take 2 tablets (500 mg) on Day 1, and then take 1 tablet (250 mg) on days 2 through 5. 1 packet 0 12/24/2019 03/04/2020 Discontinued (Therapy completed) bacitracin 0.5 unt/mg topical ointment (2 sources) Start: 07-12-2024 End: 07-15-2024 apply 1 dose topically twice daily Topical, 2 times daily, First dose on 07/12/24 at 0100 bacitracin 0.5 unt/mg / neomycin 0.0035 mg/mg / polymyxin b 10 unt/mg topical ointment (2 sources) Aminoglycoside Antibacterial, Polymyxin-class Antibacterial Start: 01-27-2023 End: 01-28-2023 neomycin-bacitrac in-polymyxin (Neosporin) ointment 30 ml bupivacaine hydrochloride 5 mg/ml injection (1 source) Amide Local Anesthetic Start: 10-01-2020 End: 10-01-2020 bupivacaine (PF) (MARCAINE) 0.5 % injection 50 mg 100 ml calcium gluconate 20 mg/ml injection (2 sources) Start: 01-28-2023 End: 01-28-2023 calcium gluconate 2000 mg in 100 mL IVPB premix Start: 01-28-2023 End: 01-28-2023 calcium gluconate 2000 mg in 100 mL IVPB premix chlordiazePOXIDE hydrochloride 25 mg oral capsule (2 sources) Benzodiazepine Start: 07-12-2024 End: 07-13-2024 take 1 capsule by mouth every six hours 25 mg, Oral, Every 6 hours, First dose on 07/12/24 at 1130, Hold for excessive sedation cholecalciferol 9.52 unt/ml / glucose 357 mg/ml oral gel (4 sources) Vitamin D Start: 07-12-2024 End: 07-15-2024 15 g, Oral, As needed, low blood sugar, Starting on 07/12/24 at 0621, If blood glucose less than 50 mg/dL and patient ALERT and NOT NPO, give 2 tubes glucose gel. If blood glucose less than 70 mg/dL and patient ALERT and NOT NPO, give 1 tube glucose gel. Repeat blood glucose in 15 minutes. If blood glucose is less than 70 mg/dL, repeat treatment and recheck blood glucose in 15 minutes x2 and notify provider. Start: 08-11-2023 End: 08-22-2023 15 g, Oral, As needed, low b lood sugar, Starting on 08/11/23 at 1535, If blood glucose less than 50 mg/dL and patient ALERT and NOT NPO, give 2 tubes glucose gel. If blood glucose less than 70 mg/dL and patient ALERT and NOT NPO, give 1 tube glucose gel. Repeat blood glucose in 15 minutes. If blood glucose is less than 70 mg/dL, repeat treatment and recheck blood glucose in 15 minutes x2 and notify provider. CISplatin (PLATINOL) 231 mg in sodium chloride 0.9 % 500 mL chemo IVPB (2 sources) Start: 05-18-2020 End: 05-18-2020 CISplatin (PLATINOL) 231 mg in sodium chloride 0.9 % 500 mL chemo IVPB Start: 04-20-2020 End: 04-20-2020 CISplatin (PLATINOL) 231 mg in sodium chloride 0.9 % 500 mL chemo IVPB dexamethasone (DECADRON) 12 mg in sodium chloride 0.9 % IVPB (4 sources) Start: 05-19-2020 End: 05-19-2020 dexamethasone (DECADRON) 12 mg in sodium chloride 0.9 % IVPB Start: 05-18-2020 End: 05-18-2020 dexamethasone (DECADRON) 12 mg in sodium chloride 0.9 % IVPB Start: 04-21-2020 End: 04-21-2020 dexamethasone (DECADRON) 12 mg in sodium chloride 0.9 % IVPB Start: 04-20-2020 End: 04-20-2020 dexamethasone (DECADRON) 12 mg in sodium chloride 0.9 % IVPB dilTIAZem hydrochloride 60 mg oral tablet (4 sources) Calcium Channel Ramiro Start: 08-11-2023 End: 08-12-2023 take 1 tablet by mouth four times daily 60 mg, Oral, Every 6 hours scheduled (4 times per day), First dose on 08/11/23 at 1800, Unless administering down a feeding tube, do not split, crush, or chew tablets. Start: 08-11-2023 End: 08-11-2023 15 mg, IntraVENous, Once, On 08/11/23 at 1130, For 1 dose, Administer over at least 2 minutes. diphenhydrAMINE citrate 38 mg / ibuprofen 200 mg oral tablet (13 sources) Histamine-1 Receptor Antagonist, Nonsteroidal Anti-inflammatory Drug Start: 05-16-2023 End: 10-15-2023 take 2 capsules by mouth at bedtime Ibuprofen-Diphenhydramine Cit (Ibuprofen Pm) 200-38 mg tablet Discontinued 2 CAP PO AT BEDTIME 0 3 May 30, 2023 3:08pm October 15, 2023 1:52pm take 1 capsule by [facility] once daily as needed Ibuprofen-diphenhydrAMINE Cit 200-38 MG tablet per tablet Take 1 capsule by mouth Nightly as needed. 0 Active docosahexaenoic acid 120 mg / eicosapentaenoic acid 180 mg oral capsule (7 sources) End: 08-22-2023 doxycycline hyclate 100 mg oral tablet (9 sources) Tetracycline-clas s Drug Start: 12-23-2022 End: 02-27-2023 take 100 mg by mouth twice daily Doxycycline Hyclate Discontinued 100 MG PO TWICE A DAY December 23, 2022 12:00am February 27, 2023 12:20pm 2 ml famotidine 10 mg/ml injection (2 sources) Histamine-2 Receptor Antagonist Start: 04-21-2020 End: 04-21-2020 famotidine (PEPCID) injection 20 mg Start: 03-04-2020 End: 03-04-2020 famotidine (PEPCID) tablet 2 0 mg folic acid 1 mg oral tablet (13 sources) Start: 07-12-2024 End: 07-15-2024 take 1 mg by mouth once daily 1 mg, Oral, Daily, First dose on 07/12/24 at 0900 Start: 08-22-2023 End: 08-21-2024 take 1 tablet by mouth once daily folic acid (Folvite) 400 MCG tablet Take 1 tablet (0.4 mg) by mouth daily. 30 tablet 1 08/22/2023 08/21/2024 Active Start: 05-30-2023 End: 08-22-2023 take 1 mg by mouth once daily Folic Acid Active 1 MG P O DAILY@0800 30 May 30, 2023 12:00am 60 actuat formoterol fumarate 0.005 mg/actuat / mometasone furoate 0.2 mg/actuat metered dose inhaler (4 sources) Corticosteroid, beta2-Adrenergic Agonist Start: 07-12-2024 End: 07-15-2024 take 2 puff(s) by mouth twice daily 2 puff, Inhalation, 2 times daily, First dose on 07/12/24 at 0045, Rinse mouth with water after use to reduce aftertaste and incidence of candidiasis. Do not swallow. Start: 08-11-2023 End: 08-22-2023 take 2 puff(s) by mouth twice daily 2 puff, Inhalation, 2 times daily, First dose on 08/11/23 at 2000, Rinse mouth with water after use to reduce aftertaste and incidence of candidiasis. Do not swallow. fosaprepitant (EMEND) 150 mg in sodium chloride 0.9 % 250 mL IVPB (2 sources) Start: 05-18-2020 End: 05-18-2020 fosaprepitant (EMEND) 150 mg in sodium chloride 0.9 % 250 mL IVPB Start: 04-20-2020 End: 04-20-2020 fosaprepitant (EMEND) 150 mg in sodium chloride 0.9 % 250 mL IVPB 4 ml furosemide 10 mg/ml injection (4 sources) Loop Diuretic Start: 08-12-2023 End: 08-12-2023 40 mg, IntraVENous, Once, On 08/12/23 at 1400, For 1 dose Start: 08-11-2023 End: 08-11-2023 40 mg, IntraVENous, Once, On 08/11/23 at 1345, For 1 dose glucagon (rdna) 1 mg injection (4 sources) Antihypoglycemic Agent Start: 07-12-2024 End: 07-15-2024 1 mg, IntraMUSCular, PRN, low blood sugar, Blood glucose less than 70 mg/dL and patient NOT ALERT or NPO and does not have IV access., Starting on 07/12/24 at 0621, After administration, attempt intravenous access and start D5W at 100 mL/hr. Repeat blood glucose in 15 minutes x2 and notify provider. Start: 08-11-2023 End: 08-22-2023 1 mg, IntraMUSCular, PRN, lo w blood sugar, Blood glucose less than 70 mg/dL and patient NOT ALERT or NPO and does not have IV access., Starting on 08/11/23 at 1535, After administration, attempt intravenous access and start D5W at 100 mL/hr. Repeat blood glucose in 15 minutes x2 and notify provider. 150 ml glucose 50 mg/ml injection (8 sources) Start: 07-12-2024 End: 07-15-2024 12.5 g, IntraVENous, PRN, lo w blood sugar, Blood glucose less than 70 mg/dL and patient NOT ALERT or NPO., Starting on 07/12/24 at 0621, If patient does not respond within 5 minutes, repeat dose x1. Start D5W at 100 mL/hour until ordering provider can be reached. Repeat blood glucose in 15 minutes. If blood glucose is less than 70 mg/dL, repeat treatment and recheck blood glucose in 15 minutes x2. If using Glucostabilizer, dose as instructed per system. Start: 07-12-2024 End: 07-15-2024 100 mL/hr, IntraVENous, PRN, Blood sugar less than 70mg/dL, Starting on 07/12/24 at 0621, Start infusion following administration of dextrose 50% or glucagon. Start: 08-11-2023 End: 08-22-2023 12.5 g, IntraVENous, PRN, lo w blood sugar, Blood glucose less than 70 mg/dL and patient NOT ALERT or NPO., Starting on 08/11/23 at 1535, If patient does not respond within 5 minutes, repeat dose x1. Start D5W at 100 mL/hour until ordering provider can be reached. Repeat blood glucose in 15 minutes. If blood glucose is less than 70 mg/dL, repeat treatment and recheck blood glucose in 15 minutes x2. If using Glucostabilizer, dose as instructed per system. Start: 01-27-2023 End: 01-27-2023 dextrose 50 % solution 50 mL 1 ml haloperidol 5 mg/ml prefilled syringe (2 sources) Typical Antipsychotic Start: 08-21-2023 End: 08-21-2023 1 mg, IntraMUSCular, Once, On Tu08/21/23 at 1400, For 1 dose, IM route of administration preferred. Because of the risk of TdP and QT prolongation, ECG monitoring is recommended if haloperidol is given IV lactulose 667 mg/ml oral solution (9 sources) Osmotic Laxative Start: 12-23-2022 End: 02-27-2023 take 10 g by mouth twice daily Lactulose Discontinued 10 GM PO TWICE A DAY December 23, 2022 12:00am February 27, 2023 12:20pm 1 ml LORazepam 2 mg/ml injection (2 sources) Benzodiazepine Start: 08-19-2023 End: 08-19-2023 1 mg, IntraMUSCular, Once, On Sun08/19/23 at 2030, For 1 dose, For IV doses dilute dose with 1ml NS. losartan potassium 100 mg oral tablet (13 sources) Angiotensin 2 Receptor Ramiro Start: 07-12-2024 End: 07-15-2024 take 50 mg by mouth once daily 50 mg, Oral, Daily, First dose on 07/12/24 at 0900, Hold for systolic blood pressure Start: 08-13-2023 End: 08-21-2024 take 1 tablet by mouth once daily losartan (Cozaar) 50 MG tablet Take 1 tablet (50 mg) by mouth daily. 30 tablet 08/22/2023 Active melatonin 5 mg oral tablet (5 sources) Start: 07-14-2024 End: 07-15-2024 take 10 mg by mouth once daily 10 mg, Oral, Nightly, First dose on 07/14/24 at 0015 Start: 10-15-2023 take 9 mg by mouth at bedtime Melatonin Active 9 MG PO AT BEDTIME October 15, 2023 12:00am Start: 05-16-2023 take 10 mg by mouth at bedtime Melatonin Active 10 MG PO AT BEDTIME May 16, 2023 12:00am Multivitamin preparation (6 sources) Start: 02-27-2023 End: 04-16-2023 take 1 tablet by mouth once daily Multivitamin Discontinued 1 TABLET PO DAILY February 27, 2023 12:00am April 16, 2023 3:45pm Start: 02-27-2023 take 1 tablet by lela th once daily Multivitamin Active 1 TABLET PO DAILY February 27, 2023 12:00am 1 ml naloxone hydrochloride 0.4 mg/ml injection (2 sources) Opioid Antagonist Start: 07-12-2024 End: 07-15-2024 0.4 mg, IntraVENous, Every 5 min PRN, opioid reversal, respiratory depression, Starting on 07/12/24 at 0058, +++ For RR naproxen 250 mg oral tablet (12 sources) Nonsteroidal Anti-inflammatory Drug Start: 09-30-2020 End: 08-22-2023 24 hr nicotine 0.875 mg/hr transdermal system (3 sources) Cholinergic Nicotinic Agonist Start: 05-30-2023 End: 10-15-2023 Nicotine Discontinued 21 MG TD DAILY May 30, 2023 12:00am October 15, 2023 1:48pm nystatin [id number] unt/ml oral suspension (2 sources) Polyene Antifungal Start: 04-27-2020 End: 05-11-2020 take 5 mL by mouth four times daily nystatin (MYCOSTATIN) [id number] UNIT/ML suspension Indications: Malignant neoplasm of tonsil (HCC) , Oral thrush Take 5 mLs by mouth 4 times daily X 7 days 240 mL 0 04/27/2020 05/11/2020 Discontinued (LIST CLEANUP) ondansetron 8 mg oral tablet (20 sources) Serotonin-3 Receptor Antagonist Start: 03-31-2020 End: 08-22-2023 Start: 03-04-2020 End: 03-04-2020 ondansetron (ZOFRAN) injecti on 4 mg ondansetron ODT (Zofran-ODT) disintegrating tablet 4 mg (2 sources) Start: 07-12-2024 End: 07-15-2024 take 1 tablet by mouth every eight hours as needed for nausea and vomiting ondansetron ODT (Zofran-ODT) disintegrating tablet 4 mg 5 ml palonosetron 0.05 mg/ml injection (2 sources) Serotonin-3 Receptor Antagonist Start: 05-18-2020 End: 05-18-2020 palonosetron (ALOXI) injection 0.25 mg Start: 04-20-2020 End: 04-20-2020 palonosetron (ALOXI) injecti on 0.25 mg pantoprazole 40 mg delayed release oral tablet (9 sources) Proton Pump Inhibitor Start: 12-23-2022 End: 04-16-2023 take 1 tablet by mouth twice daily Pantoprazole (Protonix) 40 mg tablet,delayed release (DR/EC) Discontinued 40 MG PO TWICE A DAY 60 30 December 23, 2022 12:00am April 16, 2023 3:45pm PHENobarbital 97.2 mg oral tablet (2 sources) Start: 07-11-2024 End: 07-11-2024 take 97.2 mg by mouth once 97.2 mg, Oral, Once, On Sun07/11/24 at 1740, For 1 dose polyethylene glycol 3350 [id number] mg powder for oral solution (4 sources) Osmotic Laxative Start: 07-12-2024 End: 07-15-2024 take 17 g by mouth every twenty-four hours as needed for constipation 17 g, Oral, Daily PRN, constipation, Starting on 07/12/24 at 0040, 1st line for treatment of constipation - give scheduled if no bowel movement in past 24 hours. Start: 08-11-2023 End: 08-22-2023 take 17 g by mouth every twenty-four hours as needed for constipation 17 g, Oral, Daily PRN, constipation, Starting on 08/11/23 at 1531, 1st line for treatment of constipation - give scheduled if no bowel movement in past 24 hours. potassium chloride 10 mEq, magnesium sulfate 1 g in sodium chloride 0.9 % 500 mL IVPB (4 sources) Start: 05-18-2020 End: 05-18-2020 potassium chloride 10 mEq, magnesium sulfate 1 g in sodium chloride 0.9 % 500 mL IVPB Start: 05-18-2020 End: 05-18-2020 potassium chloride 10 mEq, m agnesium sulfate 1 g in sodium chloride 0.9 % 500 mL IVPB Start: 04-20-2020 End: 04-20-2020 potassium chloride 10 mEq, m agnesium sulfate 1 g in sodium chloride 0.9 % 500 mL IVPB Start: 04-20-2020 End: 04-20-2020 potassium chloride 10 mEq, m agnesium sulfate 1 g in sodium chloride 0.9 % 500 mL IVPB 2 ml prochlorperazine 5 mg/ml injection (20 sources) Phenothiazine Start: 05-19-2020 End: 05-19-2020 prochlorperazine (COMPAZINE) injection 10 mg Start: 04-21-2020 End: 04-21-2020 prochlorperazine (COMPAZINE) injection 10 mg Start: 03-31-2020 End: 08-22-2023 red yeast rice 600 mg oral c apsule (7 sources) End: 08-22-2023 Red Yeast Rice E xtract 600 MG capsule Take by mouth. 0 Active sertraline 50 mg oral tablet (6 sources) Serotonin Reuptake Inhibitor Start: 10-11-2022 End: 08-22-2023 1000 ml sodium chloride 9 mg/ml injection (20 sources) Start: 07-12-2024 End: 07-12-2024 take 75 mL intravenously every hour 75 mL/hr, IntraVENous, Continuous, Starting on 07/12/24 at 0630, For 13 hours Start: 07-11-2024 End: 07-11-2024 1,000 mL, IntraVENous, at 1, 000 mL/hr, Administer over 1 Hours, Once, On Sun07/11/24 at 1750, For 1 dose Start: 08-11-2023 End: 08-12-2023 take 100 mL intravenously every hour 100 mL/hr, IntraVENous, Continuous, Starting on 08/11/23 at 2000, On hold since 08/12/2023 at 0945 until manually unheld Start: 08-11-2023 End: 08-11-2023 1,000 mL, IntraVENous, at 1, 000 mL/hr, Administer over 1 Hours, Once, On 08/11/23 at 1120, For 1 dose Start: 01-28-2023 End: 01-28-2023 sodium chloride 0.9 % bolus 500 mL Start: 06-29-2020 End: 06-29-2020 0.9 % sodium chloride bolus Start: 06-23-2020 End: 06-23-2020 0.9 % sodium chloride bolus Start: 06-22-2020 End: 06-22-2020 0.9 % sodium chloride bolus Start: 06-18-2020 End: 06-18-2020 0.9 % sodium chloride bolus Start: 06-03-2020 End: 06-03-2020 0.9 % sodium chloride bolus Start: 06-01-2020 End: 06-01-2020 0.9 % sodium chloride bolus Start: 05-26-2020 End: 05-26-2020 0.9 % sodium chloride bolus Start: 05-25-2020 End: 05-25-2020 0.9 % sodium chloride bolus Start: 05-20-2020 End: 05-21-2020 0.9 % sodium chloride bolus Start: 05-19-2020 End: 05-19-2020 0.9 % sodium chloride bolus Start: 05-18-2020 End: 05-18-2020 0.9 % sodium chloride infusi on Start: 05-11-2020 End: 05-11-2020 0.9 % sodium chloride bolus Start: 04-21-2020 End: 04-22-2020 0.9 % sodium chloride bolus Start: 04-20-2020 End: 04-20-2020 0.9 % sodium chloride infusi on Start: 03-04-2020 sodium chlorid e flush 0.9 % injection 10 mL sodium chloride 0.9 % 1,000 mL with multiple vitamin 10 mL, thiamine 100 mg, folic acid 1 mg infusion (2 sources) Start: 01-27-2023 End: 01-28-2023 sodium chloride 0.9 % 1,000 mL with multiple vitamin 10 mL, thiamine 100 mg, folic acid 1 mg infusion sucralfate 1000 mg oral tablet (9 sources) Aluminum Complex Start: 12-23-2022 End: 04-16-2023 take 1 g by mouth every six hours Sucralfate Discontinued 1 GM PO EVERY 6 HOURS 120 30 December 23, 2022 12:00am April 16, 2023 3:45pm thiamine 100 mg oral tablet (14 sources) Start: 07-12-2024 End: 07-15-2024 take 100 mg by mouth once daily 100 mg, Oral, Daily, First dose on Sun07/12/24 at 0900 Start: 08-22-2023 End: 10-21-2023 take 1 tablet by mouth twice daily thiamine (Vitamin B-1) 100 MG tablet Take 1 tablet (100 mg) by mouth 2 times daily. 60 tablet 1 08/22/2023 10/21/2023 Active Start: 08-21-2023 End: 10-21-2023 Start: 05-30-2023 End: 08-20-2023 take 100 mg by mouth once daily 100 mg, Oral, Daily, F irst dose on Sun08/17/23 at 0900 traZODone hydrochloride 50 mg oral tablet (2 sources) Serotonin Reuptake Inhibitor Start: 07-14-2024 End: 07-15-2024 take 50 mg by mouth once daily as needed for sleep 50 mg, Oral, Nightly PRN, sleep, Starting on Sun07/14/24 at 2211 vitamin b12 1 mg oral tablet (11 sources) Vitamin B12 Start: 07-12-2024 End: 07-15-2024 take 500 ug by mouth once daily 500 mcg, Oral, Daily, First dose on 07/12/24 at 0900 Start: 10-14-2023 take 500 ug by mouth once daily Cyanocobalamin (Vitamin B-12) Active 500 MCG PO DAILY October 14, 2023 12:00am Start: 08-22-2023 take 1 tablet by lela th once daily cyanocobalamin (Vitamin B-12) 500 MCG tablet Take 1 tablet (500 mcg) by mouth daily. 30 tablet 1 08/22/2023 Active (6 sources) Start: 08-12-2023 End: 08-12-2023 2.5-15 mg/hr (2.5-15 mL/hr), IntraVENous, Continuous, Starting on Sun08/12/23 at 0030, If Titrate Infusion? is No: Disregard instructions below. If Titrate infusion? is Yes: Titrate in increments of 2.5 mg/hr no more frequently than every 30 minutes to goal of therapy., Titrate Infusion? Yes, Initial Infusion Dose: Other, Goal of Therapy is: HR less than 100 bpm, Other: HR<100, HOLD for: SBP less than 90 mmHg Start: 08-11-2023 End: 08-12-2023 10 mg/hr (10 mL/hr), IntraVE Nous, Continuous, Starting on 08/11/23 at 1305, If Titrate Infusion? is No: Disregard instructions below. If Titrate infusion? is Yes: Titrate in increments of 2.5 mg/hr no more frequently than every 30 minutes to goal of therapy., Titrate Infusion? No, Infusion Dose: Other, Other (mg/hr): 10 Start: 08-11-2023 End: 08-11-2023 2.5-15 mg/hr (2.5-15 mL/hr), IntraVENous, Continuous, Starting on 08/11/23 at 1150, If Titrate Infusion? is No: Disregard instructions below. If Titrate infusion? is Yes: Titrate in increments of 2.5 mg/hr no more frequently than every 30 minutes to goal of therapy., Titrate Infusion? No, Infusion Dose: 2.5 mg/hr (12 sources) Start: 08-12-2023 End: 08-22-2023 [Order 1 Start] Name: LORaze isamar (Ativan) tablet 1 mg Signed Summary: 1 mg, Oral, Every 1 hour PRN, other, For alcohol withdrawal, Starting on 08/12/23 at 0221, For CIWA score 8 to 10. Reassess CIWA one hour after each dose of medication and as needed. [Order 1 End] [Order 2 Start] Name: LORazepam (Ativan) injection 1 mg Signed Summary: 1 mg, IntraVENous, Every 1 hour PRN, withdrawal, For alcohol withdrawal, Starting on 08/12/23 at 0221, For CIWA score 8 to 10. If both oral and intravenous CIWA medications ordered, use intravenous if unable to tolerate oral equivalent. Reassess CIWA one hour after each dose of medication and as needed. For IV doses dilute dose with 1ml NS. [Order 2 End] [Order 3 Start] Name: LORazepam (Ativan) tablet 2 mg Signed Summary: 2 mg, Oral, Every 1 hour PRN, other, For alcohol withdrawal, Starting on 08/12/23 at 0221, For CIWA score 11 to 15. Reassess CIWA one hour after each dose of medication and as needed. [Order 3 End] [Order 4 Start] Name: LORazepam (Ativan) injection 2 mg Signed Summary: 2 mg, IntraVENous, Every 1 hour PRN, withdrawal, For alcohol withdrawal., Starting on 08/12/23 at 0221, For CIWA score 11 to 15. If both oral and intravenous CIWA medications ordered, use intravenous if unable to tolerate oral equivalent. Reassess CIWA one hour after each dose of medication and as needed. For IV doses dilute dose with 1ml NS. [Order 4 End] [Order 5 Start] Name: LORazepam (Ativan) tablet 3 mg Signed Summary: 3 mg, Oral, Every 1 hour PRN, other, For alcohol withdrawal, Starting on 08/12/23 at 0221, For CIWA score 16 to 20. Reassess CIWA one hour after each dose of medication and as needed. [Order 5 End] [Order 6 Start] Name: LORazepam (Ativan) injection 3 mg Signed Summary: 3 mg, IntraVENous, Every 1 hour PRN, withdrawal, For alcohol withdrawal, Starting on 08/12/23 at 0221, For CIWA score 16 to 20. If both oral and intravenous CIWA medications ordered, use intravenous if unable to tolerate oral equivalent. Reassess CIWA one hour after each dose of medication and as needed. For IV doses dilute dose with 1ml NS. [Order 6 End] [Order 7 Start] Name: LORazepam (Ativan) tablet 4 mg Signed Summary: 4 mg, Oral, Every 1 hour PRN, other, For alcohol withdrawal, Starting on 08/12/23 at 0221, For CIWA score greater than 20. Reassess CIWA one hour after each dose of medication and as needed. [Order 7 End] [Order 8 Start] Name: LORazepam (Ativan) injection 4 mg Signed Summary: 4 mg, IntraVENous, Every 1 hour PRN, withdrawal, For alcohol withdrawal, Starting on 08/12/23 at 0221, For CIWA score greater than 20. If both oral and intravenous CIWA medications ordered, use intravenous if unable to tolerate oral equivalent. Reassess CIWA one hour after each dose of medication and as needed. For IV doses dilute dose with 1ml NS. [Order 8 End] Start: 08-11-2023 End: 08-22-2023 [Order 1 Start] Name: nicoti ne (Nicoderm, Step 1) 21 MG/24HR patch 1 patch Signed Summary: 1 patch, TransDERmal, Administer over 24 Hours, Daily, First dose on 08/11/23 at 2115, For 42 days, Apply new patch to nonhairy, clean, dry skin on the upper body or upper outer arm. Rotate patch sites. Notify Pharmacy if patient or provider prefers patch to be removed at bedtime and replaced in the morning. [Order 1 End] [Order 2 Start] Name: nicotine (Nicoderm, Step 2) 14 MG/24HR patch 1 patch Signed Summary: 1 patch, TransDERmal, Administer over 24 Hours, Daily, First dose on 09/22/23 at 0900, For 14 days, Apply new patch to nonhairy, clean, dry skin on the upper body or upper outer arm. Rotate patch sites. Notify Pharmacy if patient or provider prefers patch to be removed at bedtime and replaced in the morning. [Order 2 End] [Order 3 Start] Name: nicotine (Nicoderm, Step 3) 7 MG/24HR patch 1 patch Signed Summary: 1 patch, TransDERmal, Administer over 24 Hours, Daily, First dose on 10/06/23 at 0900, For 14 days, Apply new patch to nonhairy, clean, dry skin on the upper body or upper outer arm. Rotate patch sites. Notify Pharmacy if patient or provider prefers patch to be removed at bedtime and replaced in the morning. [Order 3 End] Start: 08-11-2023 End: 08-22-2023 inject 6 [IU] by subcutaneous injection once daily [Order 1 Start] Name: Insulin Lispro (Humalog) injection 0-6 Units Signed Summary: 0-6 Units, SubCUTAneous, 3 times daily with meals, First dose on 08/11/23 at 1700, Low Dose Correction Algorithm Glucose: Dose: LESS than 139 No Insulin 140-199 1 Unit 200-249 2 Units 250-299 3 Units 300-349 4 Units 350-400 5 Units Above 400 6 Units [Order 1 End] [Order 2 Start] Name: Insulin Lispro (Humalog) injection 0-6 Units Signed Summary: 0-6 Units, SubCUTAneous, Nightly, First dose on 08/11/23 at 2100, If continuous tube feedings/TPN/NPO, give correction dose based on result, no reduction in dose. If eating or bolus tube feeding: Low Dose Correction Algorithm Glucose: Dose: LESS than 139 No Insulin 140-199 1 Unit 200-249 2 Units 250-299 3 Units 300-349 4 Units 350-400 5 Units Above 400 6 Units [Order 2 End] Start: 08-11-2023 End: 08-22-2023 0-10 mL, IntraVENous, IMG on ce PRN, other, Suboptimal echo image, Starting on 08/11/23 at 1657, For 1 dose, CV Procedural Medications, Administer via slow IVP for suboptimal echocardiogram enhancement. May administer as divided doses to reach optimal image enhancement Start: 08-11-2023 End: 08-22-2023 take 4 mg by mouth every eight hours as needed for nausea and vomiting [Order 1 Start] Name: ondansetron ODT (Zofran-ODT) disintegrating tablet 4 mg Signed Summary: 4 mg, Oral, Every 8 hours PRN, nausea, vomiting, Starting on 08/11/23 at 1531, Patient should allow tablet to dissolve on tongue. Do not remove from blister pack until just before administering. [Order 1 End] [Order 2 Start] Name: ondansetron (Zofran) injection 4 mg Signed Summary: 4 mg, IntraVENous, Every 6 hours PRN, nausea, vomiting, Starting on 08/11/23 at 1531, Administer if oral route cannot be used. [Order 2 End] Start: 08-11-2023 End: 08-22-2023 take 650 mg by mouth every six hours as needed for pain and fever [Order 1 Start] Name: acetaminophen (Tylenol) tablet 650 mg Signed Summary: 650 mg, Oral, Every 6 hours PRN, mild pain (1-3), fever, For temp greater than 100.4 F (38 C), Starting on 08/11/23 at 1531, Maximum dose of acetaminophen is 4000 mg from all sources in 24 hours. [Order 1 End] [Order 2 Start] Name: acetaminophen (Tylenol) suppository 650 mg Signed Summary: 650 mg, Rectal, Every 6 hours PRN, mild pain (1-3), fever, For temp greater than 100.4 F (38 C), Starting on 08/11/23 at 1531, Administer if oral route cannot be used. Maximum dose of acetaminophen is 4000 mg from all sources in 24 hours. [Order 2 End] Problems Active Problems Problem Classification Problem Date Documented Da te Episodic/Chronic Acute posthemorrhagic anemia (9 sources) Acute posthemorrhagic anemia; Translations: [Acute posthemorrhagic anemia] 12-31-2022 Episodic Alcohol-related disorders (20 sources) Alcohol intoxication; Translations: [Persistent alcohol abuse ] Onset: 2 05-13-2022 Chronic Anxiety disorders (1 source) Anxiety disorder, unspecified; Translations: [ANXIETY DISORDER UNSPECIFIED] Onset: 7 Chronic Attention-deficit, conduct, and disruptive behavior disorders (1 source) Attention-deficit hyperactivity disorder, unspecified type; Translations: [ADHD UNSPECIFIED TYPE] Onset: 7 Chronic Cancer of head and neck (20 sources) Malignant tumor of tonsil; Translations: [Malignant neoplasm of tonsil, unspecified] Onset: 0 03-23-2020 Chronic Cardiac dysrhythmias (20 sources) Atrial fibrillation with rapid ventricular response; Translations: [Unspecified atrial fibrillation] Onset: 4 08-11-2023 Chronic Cardiac dysrhythmias (15 sources) Sinus tachycardia; Translations: [Tachycardia, unspecified] 01-05-2023 Episodic Cataract (1 source) Presence of intraocular lens; Translations: [PRESENCE OF INTRAOCULAR LENS] Onset: 7 Chronic Chronic kidney disease (15 sources) Chronic kidney disease stage 3; Translations: [Chronic renal disease, stage III] Onset: 2 05-13-2022 Chronic Chronic obstructive pulmonary disease and bronchiectasis (20 sources) Chronic obstructive pulmonary disease, unspecified; Translations: [Chronic obstructive lung disease] Onset: 7 03-27-2017 Chronic Chronic ulcer of skin (15 sources) Pressure ulcer of unspecified site, stage 2; Translations: [Pressure injury, stage 2] 12-16-2022 Chronic Congestive heart failure; nonhypertensive (5 sources) Heart failure; Translations: [Heart failure, unspecified] Onset: 5 10-15-2023 Chronic Deficiency and other anemia (2 sources) Iron deficiency anemia; Translations: [Iron deficiency anemia, unspecified] Onset: 5 09-30-2024 Episodic Delirium, dementia, and amnestic and other cognitive disorders (1 source) Unspecified dementia without behavioral disturbance; Translations: [Dementia (HCC)] Onset: 5 Chronic Diseases of white blood cells (12 sources) Neutropenia due to and following chemotherapy; 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] Onset: 2 05-13-2022 Chronic E Codes: Fall (8 sources) Fall; Translations: [Unspecified fall, initial encounter] Onset: 3 01-28-2023 Episodic Essential hypertension (20 sources) Essential (primary) hypertension; Translations: [Essential hypertension] Onset: 7 03-23-2020 Chronic Gastrointestinal hemorrhage (9 sources) Gastrointestinal hemorrhage; Translations: [Gastrointestinal hemorrhage, unspecified] 12-31-2022 Episodic Hyperplasia of prostate (20 sources) Benign prostatic hypertrophy with outflow obstruction; Translations: [Benign prostatic hyperplasia with lower urinary tract symptoms] Onset: 7 05-12-2017 Chronic Joint disorders and dislocations; trauma-related (1 source) Dislocation of hand joint; Translations: [Dislocation of finger, initial encounter] Episodic Malaise and fatigue (19 sources) Asthenia; Translations: [Other malaise] Onset: 5 12-18-2022 Episodic Mood disorders (12 sources) Moderate major depression, single episode; Translations: [Major depressive disorder, single episode, moderate] Onset: 3 10-12-2022 Chronic Neoplasms of unspecified nature or uncertain behavior (1 source) 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; Translations: [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] Episodic Nutritional deficiencies (12 sources) Undernutrition; Translations: [Unspecified protein-calorie malnutrition] Onset: 4 10-25-2023 Chronic Nutritional deficiencies (2 sources) Zinc deficiency; Translations: [Dietary zinc deficiency] Onset: 5 09-30-2024 Episodic Open wounds of head; neck; and trunk (20 sources) Scalp laceration; Translations: [Laceration without foreign body of scalp, initial encounter] Onset: 3 01-28-2023 Episodic Other and ill-defined heart disease (1 source) Left ventricular systolic dysfunction; Translations: [Other ill-defined heart diseases] 10-15-2023 Chronic Other and ill-defined heart disease (1 source) Other ill-defined heart diseases; Translations: [Heart disease, unspecified] 10-17-2023 Chronic Other circulatory disease (2 sources) Low blood pressure; Translations: [Hypotension, unspecified] 10-14-2023 Episodic Other circulatory disease (2 sources) Hypotension, unspecified; Translations: [Hypotension, unspecified] 10-15-2023 Episodic Other diseases of kidney and ureters (9 sources) Acute renal insufficiency; Translations: [Disorder of kidney and ureter, unspecified] 01-05-2023 Episodic Other diseases of kidney and ureters (6 sources) Disorder of kidney and ureter, unspecified; Translations: [Unspecified disorder of kidney and ureter] 01-05-2023 Episodic Other endocrine disorders (6 sources) Hypoglycemia; Translations: [Hypoglycemia, unspecified] 01-28-2023 Chronic Other endocrine disorders (2 sources) Hypoglycemia, unspecified; Translations: [Hypoglycemia, unspecified] Onset: 3 Chronic Other injuries and conditions due to external causes (4 sources) Closed injury of head; Translations: [Unspecified injury of head, initial encounter] 05-16-2023 Episodic Other injuries and conditions due to external causes (2 sources) Injury of head; Translations: [Unspecified injury of head, initial encounter] 01-28-2023 Episodic Other injuries and conditions due to external causes (4 sources) Unspecified injury of head, initial encounter; Translations: [Head injury, unspecified] Onset: 3 Episodic Other lower respiratory disease (12 sources) Lung mass; Translations: [Other nonspecific abnormal finding of lung field] 12-13-2022 Episodic Other lower respiratory disease (7 sources) Other nonspecific abnormal finding of lung field; Translations: [Swelling, mass, or lump in chest] 12-23-2022 Episodic Other nutritional; endocrine; and metabolic disorders (20 sources) Morbid obesity; Translations: [Morbid (severe) obesity due to excess calories] Onset: 0 12-24-2019 Chronic Other nutritional; endocrine; and metabolic disorders (3 sources) Hypocalcemia; Translations: [Hypocalcemia] Onset: 3 01-28-2023 Chronic Other nutritional; endocrine; and metabolic disorders (1 source) Hypocalcemia; Translations: [Hypocalcemia] Onset: 3 Chronic Other nutritional; endocrine; and metabolic disorders (3 sources) H/O: brain disorder; Translations: [Personal history of other endocrine, nutritional and metabolic disease] Onset: 5 09-21-2024 Episodic Personality disorders (7 sources) Problem behavior in adult; Translations: [Unspecified disorder of adult personality and behavior] 02-26-2023 Chronic Pleurisy; pneumothorax; pulmonary collapse (3 sources) Unspecified pleural effusion; Translations: [Unspecified pleural effusion] Onset: 4 Episodic Pneumonia (except that caused by tuberculosis or sexually transmitted disease) (3 sources) Pneumonia (except that caused by tuberculosis or sexually transmitted disease); Translations: [Pneumonia, organism unspecified(486)] Onset: 4 Residual codes; unclassified (9 sources) At risk for imbalanced nutrition, less than body requirements; Translations: [Other specified personal risk factors, not elsewhere classified] 01-05-2023 Episodic Residual codes; unclassified (1 source) Other specified personal risk factors, not elsewhere classified; Translations: [Other specified conditions influencing health status] 01-05-2023 Episodic Residual codes; unclassified (2 sources) Alcoholism; Translations: [Alcohol use disorder] Onset: 5 09-21-2024 Episodic Residual codes; unclassified (2 sources) Hallucinations; Translations: [Hallucinations, unspecified] Onset: 5 09-30-2024 Episodic Residual codes; unclassified (1 source) Impulsive character; Translations: [Impulsiveness] Onset: 5 10-10-2024 Episodic Residual codes; unclassified (1 source) Swelling of finger of left hand; Translations: [Swelling of left little finger] Schizophrenia and other psychotic disorders (1 source) Brief psychotic disorder; Translations: [Acute psychosis (HCC)] Onset: 5 Episodic Septicemia (except in labor) (3 sources) Septicemia (except in labor); Translations: [Sepsis, unspecified] Onset: 4 Superficial injury; contusion (15 sources) Injury of elbow; Translations: [Contusion of left elbow, initial encounter] 12-19-2022 Episodic Syncope (9 sources) Syncope; Translations: [Syncope and collapse] 03-06-2023 Episodic Unclassified (1 source) Patient encounter status; Translations: [Encounter for chemotherapy management] Unclassified (4 sources) Readiness finding; Translations: [Desire for detoxification] 05-16-2023 Unclassified (4 sources) Other fluid overload; Translations: [Other fluid overload] Onset: 4 Unclassified (1 source) Alcohol use, unspecified with withdrawal, uncomplicated (HCC); Translations: [Alcohol use, unspecified with withdrawal, uncomplicated (HCC)] Onset: 4 Past or Other Problems Problem Classification Problem Date Documented Date Episodic/Chronic Acute and unspecified renal failure (20 sources) Acute injury of kidney; Translations: [Acute kidney failure, unspecified] Onset: 08-11-2023 Resolved: 09-30-2024 08-11-2023 Episodic Alcohol-related disorders (20 sources) Alcohol intoxication; Translations: [Alcohol use, unspecified with intoxication, unspecified] Onset: 01-27-2023 Resolved: 09-30-2024 01-28-2023 Episodic Deficiency and other anemia (12 sources) Anemia; Translations: [Anemia, unspecified] Onset: 12-28-2021 05-13-2022 Episodic Diabetes mellitus without complication (20 sources) Hyperglycemia; Translations: [Hyperglycemia, unspecified] Onset: 03-27-2017 03-27-2017 Episodic Fluid and electrolyte disorders (20 sources) Hyponatremia; Translations: [Hypo-osmolality and hyponatremia] Onset: 01-27-2023 12-31-2022 Episodic Genitourinary symptoms and ill-defined conditions (20 sources) Increased frequency of urination; Translations: [Nocturia] Onset: 10-19-2016 10-19-2016 Episodic Hemorrhoids (1 source) First degree hemorrhoids; Translations: [FIRST DEGREE HEMORRHOIDS] Onset: 07-08-2017 Episodic Intracranial injury (11 sources) Concussion with loss of consciousness; Translations: [Concussion with loss of consciousness of unspecified duration, initial encounter] Onset: 01-28-2023 01-28-2023 Episodic Mood disorders (9 sources) Mood disorders Onset: 10-11-2022 Resolved: 07-14-2024 10-11-2022 Other and unspecified benign neoplasm (1 source) Benign neoplasm of descending colon; Translations: [BENIGN NEOPLASM OF DESCENDING COLON] Onset: 07-08-2017 Episodic Other injuries and conditions due to external causes (3 sources) Starvation; Translations: [Starvation, initial encounter] Onset: 09-21-2024 Resolved: 09-30-2024 09-21-2024 Episodic Other liver diseases (11 sources) Enzyme level - finding; Translations: [Transaminitis] Onset: 08-11-2023 08-11-2023 Episodic Other lower respiratory disease (3 sources) Cough; Translations: [Acute cough] Episodic Other lower respiratory disease (11 sources) Dyspnea; Translations: [Shortness of breath] Onset: 08-11-2023 08-11-2023 Episodic Other non-traumatic joint disorders (20 sources) Knee pain; Translations: [Pain in right knee] Onset: 03-27-2017 03-27-2017 Episodic Other non-traumatic joint disorders (13 sources) Pain in right knee; Translations: [Pain in joint, lower leg] Onset: 03-27-2017 03-27-2017 Episodic Residual codes; unclassified (5 sources) Altered mental status; Translations: [Altered mental status, unspecified] Onset: 09-08-2023 Resolved: 09-30-2024 Episodic Unclassified (20 sources) Encounter for screening for malignant neoplasm of colon; Translations: [Serum creatinine raised] Onset: 07-08-2017 01-05-2023 Episodic Unclassified (1 source) Alcohol use, unspecified with withdrawal, uncomplicated (HCC); Translations: [Alcohol use, unspecified with withdrawal, uncomplicated (HCC)] Onset: 07-11-2024 Results Test Name Value Interpretation Reference Range Facility Alcohol, Blood (Medical)-Ser [facility] 06-03-2025 SERUM ETOH 227.0 mg/dL High <=10.0 [facility] Comment on above: Result Comment: This test is for medical purposes only. The legal definition of intoxication varies according to local law. Performed By: #### L 501.9100 ####[facility] [address] [place], [address] Basic Metabolic Profile (BMP )on 06-03-2025 BUN/CRE 16.2 RATIO Normal 10-20 [facility] Comment on above: Performed By: #### L 100.0100, L500.2500 ####[facility] [address] [place], [address] Calcium [Mass/Vol] 8.8 mg/dL Normal 7.6-11.0 [facility] Comment on above: Performed By: #### L 100.0100, L500.2500 ####[facility] [address] [place], [address] Chloride [Moles/Vol] 104 mmol/L Normal 98-108 [facility] Comment on above: Performed By: #### L 100.0100, L500.2500 ####[facility] [address] [place], [address] CO2 [Moles/Vol] 25.3 mmol/L Normal 21.0-32.0 [facility] Comment on above: Performed By: #### L 100.0100, L500.2500 ####[facility] [address] [place], [address] Creatinine [Mass/Vol] 1.13 mg/dL Normal 0.70-1.20 [facility] Comment on above: Performed By: #### L 100.0100, L500.2500 ####[facility] [address] [place], [address] ECRCL 63.70 ml/min Normal 50-250 [facility] Comment on above: Performed By: #### L 100.0100, L500.2500 ####[facility] [address] [place], [address] GAP 10 Normal 5-15 [facility] Comment on above: Performed By: #### L 100.0100, L500.2500 ####[facility] [address] [place], [address] GFR/1.73 sq M.predicted among non-blacks MDRD (S/P/Bld) [Vol rate/Area] 70 mL/min/{1.73_m2} Normal >60 [facility] Comment on above: Result Comment: mL/m in/1.73m2 CKD-EPI Creatinine Equation (2020) Performed By: #### L 100.0100, L500.2500 ####[facility] [address] [place], [address] Glucose [Mass/Vol] 78 mg/dL Normal 70-99 [facility] Comment on above: Performed By: #### L 100.0100, L500.2500 ####[facility] [address] [place], [address] Potassium [Moles/Vol] 3.8 mmol/L Normal 3.3-5.1 [facility] Comment on above: Performed By: #### L 100.0100, L500.2500 ####[facility] [address] [place], [address] Sodium [Moles/Vol] 139 mmol/L Normal 133-145 [facility] Comment on above: Performed By: #### L 100.0100, L500.2500 ####[facility] [address] [place], [address] Urea nitrogen [Mass/Vol] 18 mg/dL Normal 4-19 [facility] Comment on above: Performed By: #### L 100.0100, L500.2500 ####[facility] [address] [place], [address] Brain/Head without Contrasto 06-03-2025 Brain/Head without Contrast [facility] Imaging Services [address] [place], [place] [address] Brain/Head without Contrast MR#: [id number] Acct: [id number] Name: MESSI WALDROP Rep #: [id number] : 1955 M 70 From: Scott cao MD PCP: Dr. John Springer MD Status: REG ER Study: Brain/Head without Contrast Date of Exam: 12/21 Exam# [id number] Ordering Dr: Home Caceres MD PROCEDURE: BRAIN/HEAD WITHOUT CONTRAST 06/03/2025 REASON FOR EXAM: FALL/TRAUMA TECHNIQUE: Procedure Code: CTBR Modality: CT Procedure: BRAIN/HEAD WITHOUT CONTRAST Coronal and Sagittal reconstruction series were provided. One or more dose reduction techniques were used (e.g., Automated exposure control, adjustment of the mA and/or kV according to patient size, use of iterative reconstruction technique. RADIATION DOSE SUMMARY: CTDlvol: 47.06 mGy DLP: 960.91 mGycm COMPARISON: None FINDINGS: Brain: Low density in the periventricular white matter suggests mild chronic small vessel ischemic changes. CSF Spaces: Mild generalized cerebral atrophy Sinuses/Mastoids: Clear at visualized levels Bones: No bony abnormality. CT/Brain/Head without Contrast IMPRESSION: CHRONIC CHANGES. NO ACUTE FINDINGS. Reading Location: [facility] CC: Dr. Home Caceres MD; Dr. John Springer MD Medical Staff Services Coordinator: Signed Normal [facility] CBC W/Diff, Automatedon Absolute Lymph 1.42 X10 3/uL Normal 0.83-4.51 [facility] Comment on above: Performed By: #### L 100.0100, L500.2500 ####[facility] [address] [place], [place], [address] Absolute Neut 4.3 X10 3/uL Normal 2.0-7.7 [facility] Comment on above: Performed By: #### L 100.0100, L500.2500 ####[facility] [address] [place], [address] Basophils/100 WBC (Bld) 1.2 % High 0-1 [facility] Comment on above: Performed By: #### L 100.0100, L500.2500 ####[facility] [address] [place], [address] Eosinophils/100 WBC (Bld) 6.7 % High 0-5 [facility] Comment on above: Performed By: #### L 100.0100, L500.2500 ####[facility] [address] [place], [address] Erythrocyte distribution width (RBC) [Ratio] 12.7 % Normal 11.6-14.6 [facility] Comment on above: Performed By: #### L 100.0100, L500.2500 ####[facility] [address] [place], [address] Hematocrit (Bld) [Volume fraction] 37.6 % Low 40-54 [facility] Comment on above: Performed By: #### L 100.0100, L500.2500 ####[facility] [address] [place], [address] Hemoglobin (Bld) [Mass/Vol] 12.4 g/dL Low 13.0-16.5 [facility] Comment on above: Performed By: #### L 100.0100, L500.2500 ####[facility] [address] [place], [address] IG% 0.600 Normal 0.0-0.9 [facility] Comment on above: Result Comment: IG% - Immature Granulocytes (promyelocytes, myelocytes and metamyelocytes) > 1% indicates that a LEFT SHIFT is Present. Performed By: #### L 100.0100, L500.2500 ####[facility] [address] [place], [address] Lymphocytes/100 WBC (Bld) 20.7 % Normal 19-41 [facility] Comment on above: Performed By: #### L 100.0100, L500.2500 ####[facility] [address] [place], [address] MCH (RBC) [Entitic mass] 31.3 pg Normal 27.0-32.0 [facility] Comment on above: Performed By: #### L 100.0100, L500.2500 ####[facility] [address] [place], [address] MCHC (RBC) [Mass/Vol] 33.0 g/dL Normal 32-36 [facility] Comment on above: Performed By: #### L 100.0100, L500.2500 ####[facility] [address] [place], [address] MCV (RBC) [Entitic vol] 94.9 fL High 80-94 [facility] Comment on above: Performed By: #### L 100.0100, L500.2500 ####[facility] [address] [place], [address] Monocytes/100 WBC (Bld) 8.5 % Normal 0-10 [facility] Comment on above: Performed By: #### L 100.0100, L500.2500 ####[facility] [address] [place], [address] Neutrophils/100 WBC (Bld) 62.3 % Normal 47-70 [facility] Comment on above: Performed By: #### L 100.0100, L500.2500 ####[facility] [address] [place], [address] Nucleated RBC (Bld) [#/Vol] 0 10*3/uL Normal 0-5 [facility] Comment on above: Performed By: #### L 100.0100, L500.2500 ####[facility] [address] [place], [address] Platelet mean volume (Bld) [Entitic vol] 9.9 fL Normal 6.2-12.0 [facility] Comment on above: Performed By: #### L 100.0100, L500.2500 ####[facility] [address] [place], [address] Platelets (Bld) [#/Vol] 222 10*3/uL Normal 150-450 [facility] Comment on above: Performed By: #### L 100.0100, L500.2500 ####[facility] [address] [place], [address] RBC (Bld) [#/Vol] 3.96 10*6/uL Low 4.6-6.2 [facility] Comment on above: Performed By: #### L 100.0100, L500.2500 ####[facility] [address] [place], [address] RDW SD 43.8 fl Normal 35.1-43.9 [facility] Comment on above: Performed By: #### L 100.0100, L500.2500 ####[facility] [address] [place], [address] WBC (Bld) [#/Vol] 6.9 10*3/uL Normal 4.4-11.0 [facility] Comment on above: Performed By: #### L 100.0100, L500.2500 ####[facility] [address] [place], [address] Emergency Department Summary on 06-03-2025 Emergency Department Summary [facility] Medical Records Department [address] [place] [address] Emergency Department Summary 06/03/25 MR#: [id number] Acct: [id number] Name: MESSI WALDROP Rep #: [id number] : 1955 70 From: Home Caceres MD PCP: Dr. John Springer MD Status:REG ER Location: ED HPI HPI - Fall History of Present Illness Chief Complaint: Fall Informant: patient, legal guardian (via telephone) and EMS Narrative Narrative: Patient is a 70-year-old male presenting to the ED via EMS after reportedly falling down half a flight of stairs. - Patient does not recall falling down stairs and denies sustaining any injuries from a fall. - Uncertain why EMS was called; does not remember who called 911. Patient is extremely poor informant. - Reports abdominal pain but unclear if it started before or after the alleged fall. States he does not have any right now. - Denies any skin tears or scrapes. HPI is limited secondary to patient's confusion. Later, the patient's legal guardian who lives in [place] called and states that he currently lives with a brother, who was apparently at the home and called 911 and witnessed him fall down some steps. He states that the patient has a history of alcoholism, and recently diagnosed with alcohol induced dementia, which is why he has a legal guardian. Additionally, one of the patient's other brothers recently within the past week, leading the patient to fall off of the wagon and drink a entire 1.75 L bottle of vodka overnight without anybody knowing until this morning. He states that the patient's current behavior which may or may not include lying being deceptive about his alcohol use, and being somewhat confused is typical for him especially when drinking. PFSH PFSH Medical History A-fib Malnutrition Pulmonary mass CHI (closed head injury) Substance abuse Anxiety Depression Smoker COPD (chronic obstructive pulmonary disease) Irregular heart beat Hypertension Behavior concern in adult At high risk for malnutrition Mass of left lung Hyponatremia Alcohol withdrawal Acute blood loss anemia GI bleed Chewing tobacco use History of cancer tonsil Anxiety and depression ETOH abuse Home Medications ???Medication ???Instructions ???Recorded ???Last Taken ???Type folic acid 1 mg tablet 1 mg PO DAILY@0800 #30 tabs Unknown Rx thiamine HCl (vitamin B1) 100 mg 100 mg PO DAILYCM #30 tabs 3 Unknown Rx tablet (Vitamin B-1) albuterol sulfate 90 mcg/actuation 1 puff inhalation Q4H PRN PRN Unknown History aerosol inhaler dyspnea amiodarone 100 mg tablet 200 mg PO DAILY 10/14/23 Unknown H istory apixaban 5 mg tablet (Eliquis) 5 mg PO BID 10/14/23 Unknown Histo ry bumetanide 1 mg tablet 1 mg PO BID 10/14/23 Unknown Histo ry calcium carbonate (Antacid Calcium) 537.5 mg PO DAILY 10/14/23 Unkn own History cholecalciferol (vitamin D3) 25 25 mcg PO DAILY 10/14/23 Unknown H istory mcg (1,000 unit) tablet cyanocobalamin (vitamin B-12) 500 mcg PO DAILY 10/14/23 Unknown History 1,000 mcg tablet digoxin 125 mcg (0.125 mg) tablet 62.5 mcg PO DAILY 10/14/23 Unknow n History empagliflozin 10 mg tablet 10 mg PO DAILY diabetes mellitus 0 10/14/23 Unknown History (Jardiance) fluticasone 100 mcg-salmeterol 50 1 ea inhalation DAILY 10/14/23 Un known History mcg/dose blistr powdr for inhalation losartan 50 mg tablet 50 mg PO DAILY blood pressure 09/27 02/19 Unknown History mirtazapine 7.5 mg tablet 7.5 mg PO QHS depressive disorder 10/14/23 Unknown History pyridoxine (vitamin B6) 25 mg 25 mg PO DAILY anemia 10/14/23 Unk nown History tablet (Vitamin B-6) sacubitril 24 mg-valsartan 26 mg 1 tab PO BID 10/14/23 Unknown Hist ory tablet (Entresto) spironolactone 25 mg tablet 25 mg PO DAILY blood pressure 09/27 02/19 Unknown History benzocaine 15 mg-menthol 2.6 mg 1 forest mucous membrane Q2H PRN sore 10/15/23 Unknown History lozenges (Cepacol Sore Throat throat (benzocaine-menthol)) budesonide-formoterol HFA 160 1 inh inhalation BID SHORTNESS OF 10/15/23 Unknown History mcg-4.5 mcg/actuation aerosol BREATH inhaler (Symbicort) melatonin 3 mg tablet 9 mg PO QHS PRN sleep 10/15/23 Unk nown History multivitamin with minerals-ferrous 1 tab PO DAILY SUPPLEMENT Unknown History sulfate 4.5 mg iron tablet (One Daily Multivitamins with Minerals) Allergy/AdvReac Type Severity Reaction Status Date / Time poison rich extract Allergy Mild RASH Verified 06/03/25 11:55 Family History Mother Diabetes Father Diabetes Brother Colon cancer Surgical History History of tonsillectomy and adenoidectomy Soci (more content not included)... [place] Ribs Uni Min 3V w/PA Cheston 06-03-2025 Ribs Uni Min 3V w/PA Chest [facility] Imaging Services [address], [place] [address] Ribs Uni Min 3V w/PA Chest MR#: [id number] Acct: [id number] Name: MESSI WALDROP Rep #: [id number] : 1955 M 70 From: Scott cao MD PCP: Dr. John Springer MD Status: REG ER Study: Ribs Uni Min 3V w/PA Chest Date of Exam: 06/03 Exam# [id number] Ordering Dr: Home Caceres MD PROCEDURE: RIBS UNI MIN 3V W/PA CHEST 06/03/2025 REASON FOR EXAM: INJURY/FALL TECHNIQUE: Procedure Code: RADRIB Modality: DX Procedure: RIBS UNI MIN 3V W/PA CHEST COMPARISON: None FINDINGS: Findings: The lungs are clear. No evidence of rib fracture. No evidence of pneumothorax. Other: RAD/Ribs Uni Min 3V w/PA Chest IMPRESSION: Unremarkable examination. Reading Location: [facility] CC: Dr. Home Caceres MD; Dr. John Springer MD Medical Staff Services Coordinator: Signed [place] 36on 05-21-2025 36 Name of caller: Erika BLUNT Contact phone number: [phone] Relationship to Patient: RN at [facility] Provider: TONI Chaney Practice: [facility] Chief Complaint/Reason for Call: Pt is currently being discharged from memory care at [facility] but pt is on [facility] Medications and is needing to be seen sooner that [facility] appt 06/30/2025 if possible or to have a consult on medication review Best time of day caller can be reached: any Patient advised that office/PCP has 24-48 business hours to return their call: [facility] CNDSon 10-30-2024 CNDS HNO ID: [id number] Author: MARY WEBB MD Service: Behavioral Health Author Type: Physician Type: Discharge Summary Filed: 11/29/2024 13:23 Note Text: Attending Note I have personally performed a face to face assessment of the patient and have reviewed the JAH note. I performed a substantive portion of the visit including all aspects of the following. Other additions or changes: None Signature: Greg Webb MD Date: 11/29/2024 Time: 1:23 PM DISCHARGE SUMMARY BEHAVIORAL HEALTH PATIENT NAME: Messi Max November ADMISSION DATE: 10/11/2024 DISCHARGE DATE:.10/30/2024 ATTENDING PHYSICIAN: Greg Webb MD Code Status: Prior Highest Readmission Risk Score: 17 The 30 day readmissions risk score is derived from an internally validated risk model which evaluates patient level characteristics, utilization history, medication orders and lab results up until the day of discharge. Patients with a score of 39 or above are considered highest risk for readmission. Specific patient level drivers will be listed at the bottom of the summary. REASON FOR HOSPITALIZATION: Risk of physical harm to self, Inability to care for self, and Failure of outpatient psychiatric management DISCHARGE DIAGNOSIS: 1. Major neurocognitive disorder due to alcohol use disorder. 2. Wernicke /Korsakoff's syndrome. 3. Alcohol use disorder. OPERATIONS DURING HOSPITALIZATION: None PROCEDURES DURING HOSPITALIZATION: EKG HOSPITAL COURSE: The patient is a 69-year-old white male with extensive history of alcohol use disorder. He was admitted upon [facility] He was admitted earlier on 09/21. He was brought to the emergency room by his brother. The patient was drinking continuously and told his brother that he wants to drink himself to . Of note is the fact the patient has multitude of medical issues, was initially admitted to ICU because of his atrial fibrillation as well as heart failure with reduced ejection fraction. He was medically stabilized, transferred to medical floor, however, he was exhibiting significant behavioral issues. His memory was very very variable, sometimes oriented to one only, was agitated, intrusive, labile, exit seeking, and hard toredirect. He was detoxed off his alcohol. He was noted to be very disjointed, disorganized in his thinking, impulsive, labile and nonredirectable. He was tried on various psychotropic medications. He could obviously not be handled on the medical floor and has been transferred here to Geropsych Unit for further assessment and management. The patient's medications were adjusted and he has shown improvement. He is no longer expressing SI. Mood and affect have improved and his speech and thought processes are much more organized. Pt has been compliant with meds and care without disruptive or aggressive behaviors on unit. Suicide Risk Assessment: At the time of discharge, within a reasonable degree of medical certainty, we feel that the patient has a low acute risk of self-harm given his denial of suicidal ideation, future orientation regarding discharge, spending time with family, good response to treatment (brighter on interviews), and now being set up with aftercare. Acute dynamic risk factors, including depressed mood and suicidal ideation, have been addressed during this admission utilizing medication changes, individual and group therapy techniques, and social work support. Chronic risk is Protective factors include no current thoughts of suicide, restriction of access to lethal weapons/methods of suicide, supportive friends and/or family, stable living environment, lives with others, treatment adherence, established outpatient care, and ability to utilize emergency services when in distress. Safety plan for future thoughts of harm to self/others includes: present to the ED or call 911 if experiencing acute and/orsevere suicidal thoughts or if unable to keep self/others safe and establish/adhere to close outpatient follow-up. Mental Status: Orientation: Person and Place Appearance/Personal Hygiene: Appropriately groomed Eye Contact: Direct Psychomotor Activity: wnl Speech: Clear, relevant Mood/Affect: Euthymic Thought Process: Coherent Thought Content: Coherent Perception: Patient Denies, None Noted Suicidal Ideation/Intentions: No Homicidal Ideation/Intentions: No Insight: Impaired Judgement: Impaired Intelligence: Average Memory/Cognition: Moderately Impaired Tremors: No Gait: Normal CONSULTING TEAMS DURING HOSPITALIZATION: Internal Medicine PATIENT CONDITION AT DISCHARGE: Stable DISCHARGE DISPOSITION: Extended Care Facility COMPLICATIONS: None At this time the patient has maximized his benefit from hospitalization.. The patient voices a readiness to transition back to his home setting and has agreed to our follow-up recommendations including medication complian (more content not included)...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 AST [Catalytic activity/Vol] 15 U/L Normal 14-40 [facility] Comment on above: Order Comment: Speci men Type: BLOOD SPECIMENOrdering Facility: [facility] Address: [address] [place] [address] Performed By: #### 2 4323-8 ####YARSANISM LABORATORYCLIA [id number] [address] [place], [place] [address] [place] Bilirubin [Mass/Vol] 0.2 mg/dL Normal 0.2-1.3 [facility] Comment on above: Order Comment: Speci men Type: BLOOD SPECIMENOrdering Facility: [facility] Address: [address] [place] [address] Performed By: #### 2 4323-8 ####YARSANISM LABORATORYCLIA [id number] [place] [id number] [place] Calcium [Mass/Vol] 8.8 mg/dL Normal 8.5-10.2 [facility] Comment on above: Order Comment: Speci men Type: BLOOD SPECIMENOrdering Facility: [facility] Address: [address] [place] [address] Performed By: #### 2 4323-8 ####YARSANISM LABORATORYCLIA [id number] [place] [id number] [place] Chloride [Moles/Vol] 103 mmol/L Normal 98-107 [facility] Comment on above: Order Comment: Speci men Type: BLOOD SPECIMENOrdering Facility: [facility] Address: [address] [place] [address] Performed By: #### 2 4323-8 ####YARSANISM LABORATORYCLIA [id number] [place] [id number] [place] CO2 [Moles/Vol] 25 mmol/L Normal 22-30 [facility] Comment on above: Order Comment: Speci men Type: BLOOD SPECIMENOrdering Facility: [facility] Address: [address] [place] [address] Performed By: #### 2 4323-8 ####YARSANISM LABORATORYCLIA [id number] [place] [id number] [place] Creatinine [Mass/Vol] 1.19 mg/dL Normal 0.73-1.22 [facility] Comment on above: Order Comment: Speci men Type: BLOOD SPECIMENOrdering Facility: [facility] Address: [address] [place] [address] Performed By: #### 2 4323-8 ####YARSANISM LABORATORYCLIA [id number] [place] [id number] [facility] [place] Creatinine and Glomerular filtration rate.predicted panel (S/P/Bld) 67 mL/min/1.73m??? Normal >=60 [facility] Comment on above: Order Comment: Speci men Type: BLOOD SPECIMENOrdering Facility: [facility] Address: [address] [place] [address] Result Comment: Lissa mated Glomerular Filtration Rate (eGFR) is calculated using the 2020 CKD-EPI creatinine equation. This equation utilizes serum creatinine, sex, and age as parameters. The creatinine assay has traceable calibration to isotope dilution-mass spectrometry. Refer to KDIGO guidelines for clinical interpretation. In patients with unstable renal function, e.g. those with acute kidney injury, the eGFR may not accurately reflect actual GFR. Performed By: #### 2 4323-8 ####YARSANISM LABORATORYCLIA [id number] [place] [id number] [place] Glucose [Mass/Vol] 75 mg/dL Normal 74-99 [facility] Comment on above: Order Comment: Roldan lemons Type: BLOOD SPECIMENOrdering Facility: [facility] Address: [address] [place] [address] Result Comment: The [place] Diabetes Association (ADA) provides guidance for cutoff values for fasting glucose and random glucose. The ADA defines fasting as no caloric intake for at least 8 hours. Fasting plasma glucose results between 100 to 125 mg/dL indicate increased risk for diabetes (prediabetes). Fasting plasma glucose results greater than or equal to 126 mg/dL meet the criteria for diagnosis of diabetes. In the absence of unequivocal hyperglycemia, results should be confirmed by repeat testing. In a patient with classic symptoms of hyperglycemia or hyperglycemic crisis, random plasma glucose results greater than or equal to 200 mg/dL meet the criteria for diagnosis of diabetes. Reference: Standards of Medical Care in Diabetes 2016, [place] [employer]. Diabetes Care. 2016.39(Suppl 1). Performed By: #### 2 4323-8 ####YARSANISM LABORATORYCLIA [id number] [place] [id number] [place] Potassium [Moles/Vol] 4.4 mmol/L Normal 3.7-5.1 [facility] Comment on above: Order Comment: Roldan lemons Type: BLOOD SPECIMENOrdering Facility: [facility] Address: [address] [place] [address] Performed By: #### 2 4323-8 ####YARSANISM LABORATORYCLIA [id number] [place] [id number] [place] Protein [Mass/Vol] 5.9 g/dL Low 6.3-8.0 [facility] Comment on above: Order Comment: Roldan lemons Type: BLOOD SPECIMENOrdering Facility: [facility] Address: [address] [place] [address] Performed By: #### 2 4323-8 ####YARSANISM LABORATORYCLIA [id number] [place] [id number] [place] Sodium [Moles/Vol] 137 mmol/L Normal 136-144 [facility] Comment on above: Order Comment: Speci men Type: BLOOD SPECIMENOrdering Facility: [facility] Address: [address] [place] [address] Performed By: #### 2 4323-8 ####YARSANISM LABORATORYCLIA [id number] [place] [id number] [place] Urea nitrogen [Mass/Vol] 35 mg/dL High 9-24 [facility] Comment on above: Order Comment: Speci men Type: BLOOD SPECIMENOrdering Facility: [facility] Address: [address] [place] [address] Performed By: #### 2 4323-8 ####YARSANISM LABORATORYCLIA [id number] [place] [id number] [facility] NURSING PROGon 10-18-2024 NURSING PROG HNO ID: [id number] Author: SLY LEON RN Service: ? Author Type: Registered Nurse Type: Nursing Progress Note Filed: 10/19/2024 06:48 Note Text: Other: ([id number]) assumed care of pt at this time. Pt is alert and oriented x3 with intermittent confusion, pleasant, well groomed, speech clear. Pt denies any SI/HI/AVH, anxiety and depression. Pt medication compliant, take meds whole with H20, PRN Trazodone given for sleep and Nicotine gum given at this time. 230 pt requested something else for sleep, Atarax given at this time, effective. Pt slept estimated 6-7 hours. Normal [facility] NURSING PROG HNO ID: [id number] Author: BRYN DOBBINS, MERLENE Service: Nursing Author Type: Registered Nurse Type: Nursing Progress Note Filed: 10/18/2024 19:32 Note Text: Nursing Progress Note Patient Name: Messi Waldrop Patient Location: [address]/[id number] Daily Note: [id number] Assumed care of patient. Patient observed in room sleeping with equal, unlabored respirations. Upon waking, alert and cooperative. Alert and oriented x3. Denies SI/HI/AVH. Expresses 2/10 knee pain. Good appetite. Continent and able to express needs. Independent and steady. Compliant with all medications. Taken whole with water. Multiple PRNs given throughout the day. Impulsive but remains in control. Safety precautions maintained. This note was completed by: Bryn Dobbins [facility] NURSING PROG HNO ID: [id number] Author: PAULINO PERALTA RN Service: ? Author Type: Registered Nurse Type: Nursing Progress Note Filed: 10/18/2024 06:03 Note Text: Assumed care of patient at 2300. Patient in bed resting. No signs of distress or discomfort. Got up to use the bathroom at 0010 then laid back down. Slept 6 hours. [facility] NURSING PROGon 10-17-2024 NURSING PROG HNO ID: [id number] Author: RODOLFO COOPER RN Service: Nursing Author Type: Registered Nurse Type: Nursing Progress Note Filed: 10/17/2024 22:29 Note Text: Nursing Progress Note Patient Name: Messi Waldrop Patient Location: [address] Daily Note:[id number] Assumed pt care at 1130. Pt is AANDOx3, calm and cooperative with care. Denies all psych symptoms. Denies any pain. Ambulates with steady gait, independent with ADLs, continent. No inappropriate comments made this shift. Medication compliant, whole with water. Given PRN Trazodone at 2150 for sleep. Safety precautions maintained. This note was completed by: Rodolfo Cooper [facility] NURSING PROG O ID: [id number] Author: ANYI POST RN Service: Nursing Author Type: Registered Nurse Type: Nursing Progress Note Filed: 10/17/2024 03:48 Note Text: Other: Sleeping with no distress noted.Safety maintained via Q 15 min rounds.Will continue to monitor for safety. Sleeping through the night [facility] NURSING PROGon 10-16-2024 NURSING PROG HNO ID: [id number] Author: RODOLFO COOPER, RN Service: Nursing Author Type: Registered Nurse Type: Nursing Progress Note Filed: 10/16/2024 22:49 Note Text: Nursing Progress Note Patient Name: Messi Waldrop Patient Location: [address] Daily Note:[id number] Assumed pt care at 1130. Pt is AANDOx3, calm and cooperative with care. Denies SI/HI/AVH, depression or anxiety. Preoccupied with discharge, repeatedly says the doctor was supposed to let me go today and requires reorienting. Denies any pain or discomfort. Given PRN cough drop for dry cough. PRN trazodone at bedtime for sleep. Medication compliant, whole with water. Safety precautions maintained. This note was completed by: Rodolfo Cooper [facility] NURSING PROG O ID: [id number] Author: MADDY JANSEN RN Service: Nursing Author Type: Registered Nurse Type: Nursing Progress Note Filed: 10/16/2024 10:09 Note Text: Nursing Progress Note Patient Name: Messi Waldrop Patient Location: [address]/[id number]- Assumed Pt care: [id number] Pt was assessed at the bedside. He was soft spoken. His eye contact was average. He denied SI, HI, AH, and VH. He was AANDOx3. He rated his pain 0/10. He stated his alcohol cravings were under control. Pt ate breakfast in the day are and then returned to sleeping. He was medication compliant. He took his medication whole with water. He appeared disheveled. This note was completed by: Maddy Jansen [facility] NURSING PROG HNO ID: [id number] Author: SERG IBRAHIM, MERLENE Service: ? Author Type: Registered Nurse Type: Nursing Progress Note Filed: 10/16/2024 06:44 Note Text: 2330- 0700 Trazodone 25 mg given at 2353 for sleep.0200- Pt requesting something else for sleep and anxiety. Medicated with prn atarax. Pt also states he has been coughing and maybe some nighttime cough syrup would help, Cepacol administered. Safety maintained via Q 15 min rounds.No sexually inappropriate behavior this shift. [facility] NURSING PROGon 10-15-2024 NURSING PROG HNO ID: [id number] Author: SOFYA JOHNSON RN Service: Nursing Author Type: Registered Nurse Type: Nursing Progress Note Filed: 10/15/2024 23:10 Note Text: Pt. Was pleasant and cooperative with care, intrusive at times but otherwise appropriate with peers. At this time, continues to ask for nicotine gum. Pt. Also had complaints of insomnia, scheduled Zyprexa was given, will continue to monitor. [facility] NURSING PROG HNO ID: [id number] Author: DAWSON ALBA RN Service: ? Author Type: Registered Nurse Type: Nursing Progress Note Filed: 10/15/2024 19:53 Note Text: Nursing Progress Note Patient Name: Messi Waldrop [facility]/[id number]- Daily Note: Assumed pt care at 1630. Pt's axo2-3, pleasant. Intrusive towards staff and peers. No sexually inappropriate comments made. Reports 2/10 anxiety. Denies SI/HI/AVH and depression. No c/o pain. No PRNs given this shift. Safety precautions maintained. This note was completed by: Dawson Alba [facility] NURSING PROG HNO ID: [id number] Author: KAYLIN KENNEY RN Service: Behavioral Health Author Type: Registered Nurse Type: Nursing Progress Note Filed: 10/15/2024 12:07 Note Text: Other: Daily Note: Pt has been calm and in control, with no inappropriate comments voiced this shift. Out of room for meals and attended group this morning, returning back to room afterwards, claiming that he is cold.Med compliant, independent with ADL's and has steady gait.Denies anxiety, depression, AVH and SI/HI.Likes to lay on the couch, needing to be redirected to sit up, so peers can sit on the couch also. [facility] NURSING PROGon 10-14-2024 NURSING PROG HNO ID: [id number] Author: GOYO ESCALANTE RN Service: Nursing Author Type: Registered Nurse Type: Nursing Progress Note Filed: 10/15/2024 06:47 Note Text: Patient in bed resting no signs of distress observed. 2330 Patient c/o anxiety and craving cigarettes. PRN atarax and nicorette given. [facility] NURSING PROG HNO ID: [id number] Author: JUVENAL WOODWARD RN Service: Nursing Author Type: Registered Nurse Type: Nursing Progress Note Filed: 10/14/2024 22:36 Note Text: This RN assumed pt care at 1500.This pt is AO x3. PT ambulates independently with steady gait, and is independent of ADL and Personal hygiene. No sexually inappropriate statements/behaviors noted this shift. PT denied Suicidal or homicidal ideation, and does not endorse any Auditory or visual hallucinations. Requested and was given Nicorette gum @ 190 and 2135. PT is in the common area watching tv at present time. He has been compliant with HS medications, has been social with staff and other patients. He does currently still have impulsiveness, but remains in a pleasant mood. [facility] NURSING PROG HNO ID: [id number] Author: KAYLIN KENNEY RN Service: Behavioral Health Author Type: Registered Nurse Type: Nursing Progress Note Filed: 10/14/2024 12:02 Note Text: Other: Daily Note: Pt continues to be 1:1 sitter for inappropriate and impulsive behaviors, stating to this nurse, Can I get some heroin?, after scheduled meds were administered. Med compliant, independent with ADL's and has a steady gait. Reports sleeping well(like a rock) and denies anxiety, depression, SI/HI and AVH. Continues to make inappropriate comments and needing redirection often. [facility] NURSING PROG HNO ID: [id number] Author: ANYI POST RN Service: Nursing Author Type: Registered Nurse Type: Nursing Progress Note Filed: 10/14/2024 04:55 Note Text: Other: Gabapentin 100 mg given at 0000 for anxiety and sleep.Patient sleeping with no distress noted.Safety maintained via Q 15 min rounds.Safety maintained via Q 15 rounds and sitter No clot detected at 320 seconds. Suggest correlation with clinical findings and redraw if indicated.No Sexual inappropriate behavior.Will continue to monitor for safety. Sleeping through the night [facility] CONSULTon 10-13-2024 CONSULT HNO ID: [id number] Author: ENID MATHUR DPM Service: Podiatry Author Type: Physician Type: Consults Filed: 10/13/2024 10:43 Note Text: Podiatry INITIAL CONSULT NOTE SERVICE DATE: 10/13/2024 SERVICE TIME: 10:40 AM REASON FOR CONSULT: Onychomycosis REQUESTING PHYSICIAN: Primary PRIMARY CARE PHYSICIAN: John Springer MD Subjective Mr. Waldrop is a 69 year old male. Podiatry was consulted for painful, thickened and elongated toenails. Patient is unable to manage the nails by himself. FUNCTIONAL STATUS: Independent PAST MEDICAL HISTORY Diagnosis Date Cancer (HCC) No past surgical history on file. No family history on file. Social History Tobacco Use Smoking status: Former Types: Cigarettes Smokeless tobacco: Current Vaping Use Vaping status: Never Used Substance Use Topics Alcohol use: Not Currently Comment: quit 2 weeks ago. but was getting drunk two times a week Drug use: Not Currently apixaban (ELIQUIS) 5 mg tab(s), Take 1 tablet by mouth two times a day., Disp: , Rfl: , 10/10/2024 at 9:56 PM cholecalciferol (VITAMIN D3) 1,000 unit tab tablet, Take 2 tablets by mouth once daily., Disp: , Rfl: , 10/10/2024 at 8:09 AM diphenhydrAMINE (BENADRYL) 50 mg/mL injection, Inject 50 mg intramuscularly once daily as needed (Third line Agitation)., Disp: , Rfl: , Unknown divalproex DR (DEPAKOTE) 250 mg EC tablet, Take 1 tablet by mouth daily at bedtime., Disp: , Rfl: , Unknown melatonin 3 mg tablet, Take 2 tablets by mouth daily at bedtime., Disp: , Rfl: , 10/10/2024 at 9:57 PM metoprolol succinate ER (TOPROL XL) 50 mg 24 hr tablet, Take 1 tablet by mouth once daily., Disp: 90 tablet, Rfl: , 10/10/2024 at 8:09 AM naltrexone 50 mg tablet, Take 1 tablet by mouth once daily., Disp: , Rfl: , 10/10/2024 at 8:09 AM nicotine polacrilex (NICORETTE) 2 mg gum, Take 1 Each by mouth every 2 hours as needed., Disp: , Rfl: , 10/10/2024 at 9:57 PM sertraline (ZOLOFT) 50 mg tablet, Take 1 tablet by mouth once daily., Disp: 90 tablet, Rfl: , 10/10/2024 at 8:09 AM thiamine (VITAMIN B1) 100 mg tablet, 1 tablet by ORAL/FEEDING TUBE route three times a day., Disp: , Rfl: , 10/10/2024 at 9:57 PM zinc sulfate 220 mg (50 mg zinc) capsule, Take 1 capsule by mouth once daily for 4 doses., Disp: 4 capsule, Rfl: 0, 10/10/2024 at 8:[address] (DEPAKOTE) 125 mg EC tablet, Take 1 tablet by mouth two times a day., Disp: , Rfl: , Unknown Current Facility-Administered Medications Medication Dose Route Frequency hydrOXYzine HCl 25 mg tab(s) (ATARAX) 25 mg ORAL q 4 H PRN benztropine 0.5 mg tab(s) (COGENTIN) 0.5 mg ORAL q 4 H PRN haloperidol 0.5 mg tab(s) (HALDOL) 0.5 mg ORAL q 4 H PRN Or haloperidol lactate 0.5 mg short-acting injection (HALDOL) 0.5 mg INTRAMUSCULAR q 4 H PRN magnesium hydroxide 400 mg/5 mL 30 mL (MOM) 30 mL ORAL DAILY PRN diphenhydrAMINE 50 mg injection (BENADRYL) 50 mg INTRAMUSCULAR q 30 MIN PRN nicotine polacrilex 2 mg gum (NICORETTE) 2 mg ORAL q 2 H PRN apixaban 5 mg tab(s) (ELIQUIS) 5 mg ORAL BID metoprolol succinate ER 50 mg tab(s) (TOPROL XL) 50 mg ORAL DAILY divalproex DR 125 mg tab(s) (DEPAKOTE) 125 mg ORAL BID divalproex DR 250 mg tab(s) (DEPAKOTE) 250 mg ORAL AT BEDTIME sertraline 50 mg tab(s) (ZOLOFT) 50 mg ORAL DAILY naltrexone 50 mg tab(s) 50 mg ORAL DAILY cholecalciferol 2,000 Units tab(s) (VITAMIN D3) 2,000 Units ORAL DAILY melatonin 6 mg tab(s) 6 mg ORAL AT BEDTIME thiamine 100 mg tab(s) (VITAMIN B1) 100 mg ORAL/FEEDING TUBE TID zinc sulfate 220 mg capsule(s) 220 mg ORAL DAILY OLANZapine 5 mg tab(s) (ZYPREXA) 5 mg ORAL AT BEDTIME OLANZapine 2.5 mg tab(s) (ZYPREXA) 2.5 mg ORAL DAILY gabapentin 100 mg cap(s) (NEURONTIN) 100 mg ORAL q 6 H PRN nicotine 21 mg/24 hr 1 Patch (NICODERM) 1 Patch TRANSDERMAL DAILY And nicotine -- REMOVE patch OTHER DAILY And nicotine - verify patch OTHER q 8 H benzocaine-menthol 1 Lozenge (CEPACOL) 1 Lozenge MUCOUS MEMBRANE (TOPICAL MOUTH AND THROAT) q 2 H PRN acetaminophen 650 mg tab(s) (TYLENOL) 650 mg ORAL q 6 H PRN Allergies As of Date: 10/10/2024 (No Known Allergies) Fully Assessed 10/10/2024 COMPLETE REVIEW OF SYSTEMS: 12 systems were reviewed. Objective PHYSICAL EXAM: Physical Exam Performed: Vascular: Dorsalis Pedis Artery and Posterior Tibial Artery palpable . CFT <5 seconds. No signs of ischemia. varicosities appreciated Neurological: Epicritic sensation intact in stocking and glove distribution bilateral Integument: Nails 1-5 bilateral are thickened, elongated, discolored with subungual debris and pain on palpation to each. No open lesions or sores. No signs of infection. Musculoskeletal: Muscle testing to dorsiflexors, plantar flexors, evertors and invertors is full without pain. Pain free range of motion to lower extremity joints. Contracted digits appreciated 1-5 bilateral. BP 109/81 Pulse 76 Temp (Src) 97.7 (Temporal) Resp 16 Ht 5' 9 (1.75m) Wt 165 lb 11.2 o (more content not included)... [facility] NURSING PROGon 10-13-2024 NURSING PROG HNO ID: [id number] Author: PAOLA MATSON RN Service: Nursing Author Type: Registered Nurse Type: Nursing Progress Note Filed: 10/13/2024 22:32 Note Text: Other: Oriented x3. Stated, [facility] for place. Cooperative with VS, focused physical. Gait steady on own. Continues to have 1:1 sitter. No sexually inappropriate statements/behaviors noted this shift. Is focused re: discharge--expressed feeling that he's being kept here because of money. It's just about the money I think. Admits to ETOH use--then stated, It's seldom though. Admits to having a fall prior to admission d/t having too much vodka.CIWA=2. Denied SI/HI. Requested and was given Nicorette gum @ 1733 and 1951. Is in the common area watching tv at present time--remains with sitter. 2229--Compliant with HS meds. Requested and was given Nicorette gum @ 2158. Is presently watching tv in the common area. Is calm. 1:1 sitter with pt. [facility] NURSING PROG HNO ID: [id number] Author: KAYLIN KENNEY RN Service: Behavioral Health Author Type: Registered Nurse Type: Nursing Progress Note Filed: 10/13/2024 12:10 Note Text: Other: Daily Note: Pt is pleasant upon approach, with some inappropriate comments in conversations, but able to redirect. Med compliant, needs some help with ADL's and has a steady gait. Son came from [place] ad was not sure of visiting hours. Dr allowed son to visit, d/t the long distance. Continues to be 1:1, d/t the inappropriate comments and impulsiveness.Denies all psych symptoms. 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 Requests hugs and kisses from females. Redirectable. Compliant with hs meds. Restless and dc focused at times. Requests cough syrup for cough. When given a throat lozengers, says I wanted cough syrup theres alcohol in it. Talks about how he likes to drink Sikh beer because its strong. PRN Atarax/Neurontin given for anxiety. Awake intermittently comes out of room talks about randoms subjects and requesting to leave. RADHA paged 1x dose of Trazodone obtained and given. Slept 4 hours This note was completed by: Maddy Lee [facility] NURSING PROG HNO ID: [id number] Author: KATELIN LI RN Service: Nursing Author Type: Registered Nurse Type: Nursing Progress Note Filed: 10/12/2024 13:53 Note Text: Daily Note [id number] Assumed care at 0800. 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 Cooperative with assessment and vitals. AOX2, to self and time. Pt is still unsure as to where he is, fluctuating between [place] or [place]. Denies SI/HI/AVH, anxiety. Endorses a little depression. Stated took my all of my kids. When asked if it was recently, pt stated, no that was a long time ago. Pt still unaware of life events and continues to be a poor historian. Denies pain. Medication compliant and took them whole with water. Ambulates independently, steady gait noted. Continent. Independent with ADLs and makes needs known. Can be seen on unit throughout shift, then withdrawn to room. Eats meals outside of room. Continues to be sexually preoccupied and inappropriate with this expert medical writer. Made comments on female caregivers and the physique of his girlfriend. Needs redirection and reminders to be socially appropriate. Pt on falls, sexual, assault precautions. Remains 1-1 care for impulsive behavior and being inappropriate towards other patients/staff. Safety checks maintained at this time. 1230 - Pt approached expert medical writer about when he will be discharged. Educated about unit discharge policy. [facility] NURSING PROG HNO ID: [id number] Author: MADDY LEE, MERLENE Service: Behavioral Health Author Type: Registered Nurse Type: Nursing Progress Note Filed: 10/12/2024 04:03 Note Text: Nursing Progress Note Patient Name: Messi Waldrop Patient Location: [address]/[place] [address] Daily Note: AANDOx2, up on unit throughout evening shift. Inappropriate in conversation and sexually preoccupied at times, need redirection and reminders of appropriate talk. Poor historian of life events and what brought in him into the hospital. Focused on snuff and requesting staff to bring him some and having his brother sneak him some in. Compliant with meds. PRN Neurontin/Tylenol given. Increasingly anxious and restless, requesting to leave and come back another day. 2304 PRN Atarax given for anxiety. Atarax has no effect. Continues to be restless and requesting to leave, doesn't know why he is here and doesn't think he needs to here. Verbally redirected many times with no success. RADHA paged 1x dose of Trazodone obtain and given. Appears effective. This note was completed by: Maddy Lee [facility] Valproate [facility] 10-12 Valproate [Mass/Vol] 18.7 ug/mL Low 50.0-100.0 [facility] Comment on above: Order Comment: Roldan lemons Type: BLOOD SPECIMENOrdering Facility: [facility] Address: [address] [place] [address] Result Comment: Refe rence ranges and high/low indicator flags are provided as general guidelines only. The treating physician must determine appropriate target levels/dosing based on the specific clinical situation. Performed By: #### 4 086-5 ####YARSANISM LABORATORYCLIA [id number] [address] STATES OF [facility] 25(OH)D3 [facility] 2024 25-hydroxyvitamin D3 [Mass/Vol] 31.0 ng/mL Normal 31.0-80.0 [facility] Comment on above: Order Comment: Roldan lemons Type: BLOOD SPECIMENOrdering Facility: [facility] Address: [address] [place] [address] Result Comment: Clas sification of 25 [place] Vitamin D status: Deficiency/Insufficiency: < or = 30 ng/ml. Sufficiency/Optimal Levels: 31-80 ng/mL Toxicity: > 100 ng/mL. Test performed by chemiluminescent immunoassay. Performed By: #### 1 989-3 ####[facility] LABCLIA [id number] [place] [address] [place] CONSULT PROGon 10-11-[address] [facility] ECG COMPLETEon 10-11-2024 ECG COMPLETE Ventricular Rate : 8 2 BPM Atrial Rate : 175 BPM P-R Interval : 182 ms QRS Duration : 91 ms Q-T Interval : 380 ms QTC Calculation(Bazett) : 444 ms Calculated R [place] : 61 degrees Calculated T [place] : 70 degrees Atrial fibrillation Low voltage, extremity leads Abnormal ECG Confirmed by SUZI GREER MD ([id number]) on 10/24/2024 2:03:19 PM NAME : MESSI WALDROP PID : [id number] : 1955 Gender : Male Race : ORD : [id number] Procedure Date : Oct 11 2024 06:14:48 Edit Date : Oct 24 2024 14:03:20 Diagnosis: Atrial fibrillation Low voltage, extremity leads Abnormal ECG Confirmed by SUZI GREER MD ([id number]) on 10/24/2024 2:03:19 PM Test Reason : Check QT Location : 500 : LUEKG 605D Overread By : SUZI GREER MD Edited By : SUZI GREER MD Referred By : , Acquired by : BILLY FITZPATRICK, [facility] HISTORY PHYSICALon HISTORY PHYSICAL HNO ID: [id number] Author: MARY WEBB MD Service: Psychiatry Author Type: Physician Type: H&P Filed: 10/17/2024 12:28 Note Text: Patient was seen by me and a separate HANDP was dictated by me or APPN. Please refer to my note. HISTORY AND PHYSICAL BEHAVIORAL HEALTH SERVICE DATE: 10/11/2024 SERVICE TIME: 5:15 AM IDENTIFYING INFORMATION: Messi Waldrop is a 69 year old person who identifies as male. REASON FOR ADMISSION: Agitation with dementia Subjective HPI: Messi presents for admission secondary to Behavior that created a grave and imminent risk to the rights of others or the person and Inability to care for self as a transfer from [facility]. Labs: Cr 1.29. BUN 35 QT: 447 (Bazett) Utox: + EtOH on 09/20(when first admitted medically), BAL was 294 As per [facility]: BEHAVIORAL HEALTH INTAKE NOTE SERVICE DATE: 10/08/2024 SERVICE TIME: 6:29 PM Nature of the crisis: Memory impairment; impulsivity; inappropriate behaviors Presenting Problem: Messi Waldrop is a 69 year old male referred by [place] [facility] for impatent psychiatric admission. Messi Waldrop is a 69 year old male referred by [facility] for Wernicke encephalopathy. PT has a history of COPD, hypertension, hyperlipidemia, chronic A-fib (off anticoagulation), HFrEF (EF 15-20%), Wernicke encephalopathy, severe alcohol use disorder, alcohol withdrawal syndrome, and CKD presented with acute alcohol intoxication. He was brought in by EMS on 09/20/2024 to the [place] ED after his brother reported that he had been drinking all day and expressed a desire to drink himself to . Labs showed BUN 24, creatinine 1.32 (baseline 1.3-1.4), potassium 4.9, mild anemia (Hgb 10.4), and an anion gap of 19. This expert medical writer spoke with [facility] PT current nurse on 10/08/2024. Nurse states that PT is very confused and is AANDO x1. They also report that PT sometimes pees on the floor, and he continues to be a flight risk and inappropriate with female workers. This expert medical writer also let the nurse know that PT will not be transferred out of the unit tonight. Per Dr. Danna Cadena psychology consult note on 10/08/2024 ?Mr. Waldrop continues to demonstrate variable mental status. At this time, he was confused and demonstrated poor understanding of his medical condition and need to take medications to manage his health; poor appreciation of the amount of alcohol he was consuming, of the effects of his alcohol use, of his current impaired memory and ability to function; a lack of judgement and reasoning. At this time Mr. Waldrop lacks capacity to make medical decisions for himself.? She also states ?Review of EHR and discussion with staff reveals that his mental status has continued to improve over the course of his admission. With additional extended time, his mental status may continue to improve enough that he can benefit from residential alcohol use treatment, however, memory care/locked unit appropriate now? Per Felipe Tapia APRN.FOUNDER PRESIDENT [employer] CEO consult note on 10/08/2024 Patient with increasing Impulsivity, inappropriate behavior, who continues to be a safety risk to self and others with increased risk for elopement despite medication interventions. His behaviors are not due to alcohol withdrawal, and given collateral obtained from family today (see psychology cl note) suspect patient has underlying neurocognitive disorder that is contributing to patients decreased short and alf memory deficits, impulsivity, inappropriate behavior. Patient requires stabilization prior to transfer to [facility](process is underway). Patient has been deemed to lack competency and emergency guardianship is also underway.? Per CAR Holt on 10/06/2024 ?CMSW faxed and followed up on 20+ SNF referrals; no SNF facility has accepted. CMSW called and spoke to [facility] for alcohol treatment facilities; CMSW reached out to [facility] who state that they are unable to accept the patient due to being too high acuity; [facility] is unable to accept due to not being in network with the patient's insurance. From psychology consult on 10/08/2024 - reporting collateral information: Mr. Waldrop seen at bedside. He was alert and oriented to person, hospital, month, basic situation. Initially no change in mental status. Remains restless, loud, periodically provocative with inappropriate comments responding to redirection. Continues to respond with disorganized and at times irrelevant thoughts. Continues to lack adequate understanding, appreciation, reasoning and ability to make a choice resulting in need for continuing diminished capacity order. 2. Obbtained Collateral from brother Luís -[facility] 7 years [facility] after his filed for divorce. However, Nearly two years ago, his remarried and this was reportedly devastating to Mr. Waldrop. Brother states that he started drinking desperately. Brother states that it seems (more content not included)... Normal [facility] HISTORY PHYSICAL HNO ID: [id number] Author: MARY WEBB MD Service: Behavioral Health Author Type: Physician Type: H&P Filed: 10/17/2024 12:29 Note Text: [facility] - Psych History and Physical MESSI WALDROP Winter : 1955 AGE: 69 SEX: M CSN: [id number] [facility]: PSY LOCATION: 605D01 ATTENDING PHYSICIAN: GREG WEBB DATE OF SERVICE: 10/11/2024 TIME OF SERVICE: 12:30 PM The patient is a 69-year-old white male with extensive history of alcohol use disorder. He was admitted upon transfer from [facility] Medical floor. He was admitted earlier on 09/21. He was brought to the emergency room by his brother. The patient was drinking continuously and told his brother that he wants to drink himself to . Of note is the fact the patient has multitude of medical issues, was initially admitted to ICU because of his atrial fibrillation as well as heart failure with reduced ejection fraction. He was medically stabilized, transferred to medical floor, however, he was exhibiting significant behavioral issues. His memory was very very variable, sometimes oriented to one only, was agitated, intrusive, labile, exit seeking, and hard to redirect. He was detoxed off his alcohol. He was noted to be very disjointed, disorganized in his thinking, impulsive, labile and nonredirectable. He was tried on various psychotropic medications. He could obviously not be handled on the medical floor and has been transferred here to Geropsych Unit for further assessment and management. When I saw him this morning, he was wandering aimlessly, trying to get into other residents room, did not know where he is at, introduced himself with his name. The patient did not know where he is at, thought he lived only down the street and was able to tell me that he lived in [place], [place], but did not know where exactly it is located at. His conversation was fairly disjointed and he frequently becomes tangential. 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 Most information was gathered from his chart because the patient's memory and his recall is highly impaired. The patient reports that he used to drink 1 or 2 beers, but during the conversation, he stated that when he could get the beer, he will drink vodka and other hard liquor, could not tell me the exact amount and how long he has been drinking. Reviewing his record appears the patient has extensive history of alcohol use disorder, was drinking heavily, taken to [facility], is not known whether he was already experiencing problems with his memory, intellect, however, he has history of depression as well. There is no record of any prior psychiatric treatment in his chart. PAST PSYCHIATRIC HISTORY: Unavailable. The patient does not appear to have any psychiatric illness in the past, though has history of depression as mentioned earlier. PAST MEDICAL HISTORY: Significant for atrial fibrillation with HFrEF, hypertension, CKD, COPD amongst other. The patient has been noncompliant with his medications including his antiarrhythmic as well as anticoagulants. No current facility-administered medications on file prior to encounter. Current Outpatient Medications on File Prior to Encounter Medication Sig apixaban (ELIQUIS) 5 mg tab(s) Take 1 tablet by mouth two times a day. cholecalciferol (VITAMIN D3) 1,000 unit tab tablet Take 2 tablets by mouth once daily. diphenhydrAMINE (BENADRYL) 50 mg/mL injection Inject 50 mg intramuscularly once daily as needed (Third line Agitation). divalproex DR (DEPAKOTE) 250 mg EC tablet Take 1 tablet by mouth daily at bedtime. melatonin 3 mg tablet Take 2 tablets by mouth daily at bedtime. metoprolol succinate ER (TOPROL XL) 50 mg 24 hr tablet Take 1 tablet by mouth once daily. naltrexone 50 mg tablet Take 1 tablet by mouth once daily. nicotine polacrilex (NICORETTE) 2 mg gum Take 1 Each by mouth every 2 hours as needed. sertraline (ZOLOFT) 50 mg tablet Take 1 tablet by mouth once daily. thiamine (VITAMIN B1) 100 mg tablet 1 tablet by ORAL/FEEDING TUBE route three times a day. zinc sulfate 220 mg (50 mg zinc) capsule Take 1 capsule by mouth once daily for [address] (DEPAKOTE) 125 mg EC tablet Take 1 tablet by mouth two times a day. SOCIAL HISTORY: Apparently, the patient was born and raised in [place]. He went to school there, is not known how many brothers and sister he has. He claimed that he had 14 siblings. Records indicate that he has been and on several occasions in the past. Has 4 children, was living with his brother in [facility], his children are involved in his care. He has extensive history of alcohol use disorder. Reports that he has had problems with his driving record as well as had legal issues, was not able to elaborate on it fur (more content not included)... Normal [facility] Lipid 1996 panelon 5 Cholesterol [Mass/Vol] 140 mg/dL Normal <200 [facility] Comment on above: Order Comment: Speci men Type: BLOOD SPECIMENOrdering Facility: [facility] Address: [address] [place] [address] [place] [address] Result Comment: <200 mg/dL, Desirable 200-239 mg/dL, Borderline high >239 mg/dL, High Performed By: #### 3 016-3, 29841-7, 2132-03 ####YARSANISM LABORATORYCLIA [id number] [address] [place], [place] [id number] [facility] Cholesterol in HDL [Mass/Vol] 41 mg/dL Normal >39 [facility] Comment on above: Order Comment: Speci men Type: BLOOD SPECIMENOrdering Facility: [facility] Address: [address] [place] [address] Result Comment: 40-5 9 mg/dL, Acceptable >59 mg/dL, High: Negative risk factor for coronary heart disease <40 mg/dL, Low: Positive risk factor for coronary heart disease Performed By: #### 3 016-3, 92535-5, 2132-03 ####YARSANISM LABORATORYCLIA [id number] [address] Cholesterol in LDL [Mass/Vol] 87 mg/dL Normal <100 [facility] Comment on above: Order Comment: Speci [facility] Type: BLOOD SPECIMENOrdering Facility: [facility] Address: [address] [place] [address] Result Comment: <100 mg/dL, Optimal 100-129 mg/dL, Near optimal/above optimal 130-159 mg/dL, Borderline high 160-189 mg/dL, High >189 mg/dL, Very high Secondary prevention optimal LDL Cholesterol levels are recommended to be < 70 mg/dL Performed By: #### 3 016-3, 20343-4, 2132-03 ####YARSANISM LABORATORYCLIA [id number] [address] Cholesterol in LDL/Cholesterol in HDL [Mass ratio] 2.12 {ratio} Normal <2.54 [facility] Comment on above: Order Comment: [facility] Type: BLOOD SPECIMENOrdering Facility: [facility] Address: [address] [place] [address] Result Comment: Refe rence: 1. National Cholesterol Education Program ATP III Guideline At-A-Glance Quick Desk Reference: National Heart, Lung, and Blood [place]. National Institutes of Health. 2001: NIH Publication No. 01-3305. 2. An International Atherosclerosis Society position paper: global recommendations for the management of dyslipidemia: executive summary, Atherosclerosis. 2014: 232(2):410-413. Performed By: #### 3 016-3, 06244-9, 2132-03 ####YARSANISM LABORATORYCLIA [id number] [address] [place], [place] [address] [place] Cholesterol in VLDL [Mass/Vol] 12 mg/dL Normal <30 [facility] Comment on above: Order Comment: Jesusi men Type: BLOOD SPECIMENOrdering Facility: [facility] Address: [address] [place] [address] Performed By: #### 3 016-3, , 2132-03 ####YARSANISM LABORATORYCLIA [id number] [address] STATES [facility] Cholesterol non HDL [Mass/Vol] 99 mg/dL Normal <130 [facility] Comment on above: Order Comment: Roldan men Type: BLOOD SPECIMENOrdering Facility: [facility] Address: [facility] [place] [address] Result Comment: <130 mg/dL, Optimal 130-159 mg/dL, Near optimal/above optimal 160-189 mg/dL, Borderline high 190-219 mg/dL, High >219 mg/dL, Very high Secondary prevention optimal non HDL Cholesterol levels are recommended to be <100 mg/dL Performed By: #### 3 016-3, , 2132-03 ####YARSANISM LABORATORYCLIA [id number] [place] [id number] [place] Cholesterol.total/Chol esterol in HDL [Mass ratio] 3.41 {ratio} Normal <5.10 [facility] Comment on above: Order Comment: Jesusi men Type: BLOOD SPECIMENOrdering Facility: [facility] Address: [address] [place] [address] Performed By: #### 3 016-3, 12201-9, 2132-03 ####YARSANISM LABORATORYCLIA [id number] [place] [id number] [place] FASTING TIME 8 hrs Normal [facility] Comment on above: Order Comment: Speci men Type: BLOOD SPECIMENOrdering Facility: [facility] Address: [address] [place] [address] Performed By: #### 3 016-3, 16756-8, 2132-03 ####YARSANISM LABORATORYCLIA [id number] [place] [id number] [facility] Triglyceride [Mass/Vol] 60 mg/dL Normal <150 [facility] Comment on above: Order Comment: Speci men Type: BLOOD SPECIMENOrdering Facility: [facility] Address: [address] [place] [address] Result Comment: <150 mg/dL, Normal 150-199 mg/dL, Borderline high 200-499 mg/dL, High >499 mg/dL, Very high Performed By: #### 3 016-3, 96350-0, 2132-03 ####YARSANISM LABORATORYCLIA [id number] [place] [id number] [facility] NURSING PROGon 10-11-2024 NURSING PROG HNO ID: [id number] Author: KATELIN LI, RN Service: Nursing Author Type: Registered Nurse Type: Nursing Progress Note Filed: 10/11/2024 18:01 Note Text: Daily Note [id number] Assumed care of pt at 0800. Pt awake in room. Pt appears depressed and disheveled, but pleasant during interactions. Speech clear. Behavior in control and calm. Withdrawn, except for meal times. Pt seems to be anxious about being locked in his room and puts garbage bag in door to not close all the way. This expert medical writer demonstrated door does not lock from the inside. Did make inappropriate joke to this expert medical writer about physique of staff members on floor. Does have history of sexual preoccupation. Cooperative with assessment and vitals. AOX2. Pt could not answer where he was, stated, [place], near the [place]. DeniesSI/HI/AVH. Denies pain. Medication compliant and took them whole with water. Ambulates independently, mostly steady. Continent. Independent with ADLs. Does not socialize with other peers on unit and is withdrawn to room. Falls, assault, sexual, and escape precautions. Safety checks maintained at this time. 1225 - This expert medical writer was approached by another staff member that observed pt making another inappropriate remark towards pt. Additionally, pt was observed pushing at doors at the unit and was getting increasingly agitated. This expert medical writer talked to Dr. Webb, who was on unit, and was given permission for a PRN. Given PRN 0.5 mg Ativan for behaviors listed above. 1457 - Pt now has 1-1 helicopter mechanic for being intrusive and inappropriate towards staff members and patients. [facility] NURSING PROG HNO ID: [id number] Author: BILLY FITZPATRICK, MERLENE Service: Nursing Author Type: Registered Nurse Type: Nursing Progress Note Filed: 10/11/2024 07:30 Note Text: Patient admitted at this time under Dr. House/Dr. Rose for Dementia with Behavioral Disturbance. Pt. Is involuntary. He arrived via stretcher and walked to his bed per self. AANDOx2, agreeable/compliant. Patient states he is here because, I get happy, I drink a beer, then a vodka, and then a bourbon. I get sick, I fall, and sometimes I black out. My brother calls an ambulance every time. Patient jokingly answers some questions, seems to use humor as a coping mechanism. He is pleasant/compliant. He rates his anxiety a 6/10 and his depression a 5/10. He does have a history of sexual preoccupation. He doesn't display that at this time. Patient with mildly unsteady gait, no assistive devices. Reddened, unopened area noted to buttocks Skin assessment completed by this RN and Nita Upton RN. Patient received information about the unit and a welcome folder with education on unit routines, call francis use, fall safety, infection control/prevention, and pain management. RADHA paged and updated. Since arrival, patient noted to sleep approximately [address] Melton of EKG showing Atrial fibrillation (patient has a history) and Qtc of 444. [facility] NURSING PROG [facility] THERAPY NTon 10-11-2024 THERAPY NT HNO ID: [id number] Author: JOHNIE SENA OTR/L Service: Occupational Therapy Author Type: Occupational Therapist Type: Therapy (PT/OT/Speech/Resp) Filed: 10/11/2024 15:47 Note Text: OCCUPATIONAL THERAPY INPATIENT SENIOR BEHAVIORAL HEALTH ASSESSMENT Name: Messi Waldrop Date: October 11, 2024 Admit Date: 10/11/2024 Room: [facility] [facility]605D/[id number]- DISCHARGE RECOMMENDATIONS: Recommend 24/ supervision/assist due to impaired cognition, for enhanced safety, medication management, meal support, ADL assistance, and social/leisure opportunities. Pt lived with his brother MECHATRONICS TECHNOLOGIST. No skilled OT needs. Recommend mental health follow-up. NURSING RECOMMENDATIONS: Supervision/Set-up with ADLs. Independent w/ functional mobility. Decreased safety awareness. Impaired cognition. H/O impulsivity. Potential for intrusive behaviors. Recommend reinforce unit daily ADL routines and expectations during stay. Recommend reinforce safety considerations in place on the unit and during the ADL process. Recommend orientation reminders to staff, surroundings, situation, safety, and schedule. Pt has potential to demonstrate a decreased frustration tolerance during caregiver encounters. Encourage milieu activities. Fall Risk. Psychiatric Diagnosis: PRIMARY: Dementia Alcohol Use Disorder, Severe Psychiatric Precautions: sexual safety Rehabilitation Precautions: none Significant Past Medical History: PAST MEDICAL HISTORY Diagnosis Date Cancer (HCC) Behavioral Health Intake Note: Nature of the crisis: Memory impairment; impulsivity; inappropriate behaviors Presenting Problem: Messi Waldrop is a 69 year old male referred by [facility] for impatent psychiatric admission. Messi Waldrop is a 69 year old male referred by [facility] for Wernicke encephalopathy. PT has a history of COPD, hypertension, hyperlipidemia, chronic A-fib (off anticoagulation), HFrEF (EF 15-20%), Wernicke encephalopathy, severe alcohol use disorder, alcohol withdrawal syndrome, and CKD presented with acute alcohol intoxication. He was brought in by EMS on 09/20/2024 to the [facility] after his brother reported that he had been drinking all day and expressed a desire to drink himself to . Labs showed BUN 24, creatinine 1.32 (baseline 1.3-1.4), potassium 4.9, mild anemia (Hgb 10.4), and an anion gap of 19. This expert medical writer spoke with Rivera DE LEON current nurse on 10/08/2024. Nurse states that PT is very confused and is AANDO x1. They also report that PT sometimes pees on the floor, and he continues to be a flight risk and inappropriate with female workers. This expert medical writer also let the nurse know that PT will not be transferred out of the unit tonight. Per Dr. Danna Cadena psychology consult note on 10/08/2024 ?Mr. Waldrop continues to demonstrate variable mental status. At this time, he was confused and demonstrated poor understanding of his medical condition and need to take medications to manage his health; poor appreciation of the amount of alcohol he was consuming, of the effects of his alcohol use, of his current impaired memory and ability to function; a lack of judgement and reasoning. At this time Mr. Waldrpo lacks capacity to make medical decisions for himself.? She also states ?Review of EHR and discussion with staff reveals that his mental status has continued to improve over the course of his admission. With additional extended time, his mental status may continue to improve enough that he can benefit from residential alcohol use treatment, however, memory care/locked unit appropriate now? Per Felipe Tapia APRN.FOUNDER PRESIDENT AND CEO consult note on 10/08/2024 Patient with increasing Impulsivity, inappropriate behavior, who continues to be a safety risk to self and others with increased risk for elopement despite medication interventions. 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 Patient requires stabilization prior to transfer to [facility](process is underway). Patient has been deemed to lack competency and emergency guardianship is also underway.? Per CAR Holt on 10/06/2024 ?CMSW faxed and followed up on 20+ SNF referrals; no SNF facility has accepted. CMSW called and spoke to [facility] for alcohol treatment facilities; CMSW reached out to [facility] who state that they are unable to accept the patient due to being too high acuity; [facility] is unable to accept due to not being in network with the patient's insurance.? SUBJECTIVE: Patient Report: RE: mood Pretty good, better than it was yesterday. They (previous hospital) were really grinding my ass yesterday (chuckled). Patient Goals: Just pray for me that I can get my hands (more content not included)... [facility] TSH Qn 3.880 m[IU]/L Normal 0.270-4.200 [facility] Comment on above: Order Comment: Speci men Type: BLOOD SPECIMENOrdering Facility: [facility] Address: [address] [place] [address] Performed By: #### 3 016-3, 40208-7, 2132-03 ####YARSANISM LABORATORYCLIA [id number] [place] [id number] [facility] Vit B12 SerPl-mCncon 025 Cobalamin (Vitamin B12) [Mass/Vol] 455 pg/mL Normal 232-1245 [facility] Comment on above: Order Comment: Speci men Type: BLOOD SPECIMENOrdering Facility: [facility] Address: [address] [place] [address] Performed By: #### 3 016-3, 97039-6, 2132-03 ####YARSANISM LABORATORYCLIA [id number] [place] [id number] [place] ALLIED HEALTHon 10-10-[address] [facility] CASE MANAGEMon 10-10-[address] [facility] CASE MANA[address]EM [facility] CASE MANAGEM [facility] CNDSon 10-10-[address] [facility] CONSULTon 10-10-[address] [facility] CONSULT PROGon 10-10-[address] [facility] Magnesium SerPl-mCncon 10-10 Magnesium [Mass/Vol] 2.2 mg/dL Normal 1.7-2.3 [facility] Comment on above: Order Comment: Speci men Type: BLOOD SPECIMENOrdering Facility: [facility] Address: [address] [place] [address] Performed By: #### 1 9123-9, 51211-3 ####BROWN LABORATORYCLIA [id number] [place] [address] [place] Prot/Creat Uron 10-10-2024 Protein/Creatinine (U) [Mass ratio] 0.21 mg/mg High <0.15 [facility] Comment on above: Order Comment: Speci men Type: URINE SPECIMENOrdering Facility: [facility] Address: [address] [place] [address] Result Comment: Adul t Proteinuria Categories:<0.15 mg/mg is considered normal to mildly increased0.15 - 0.50 mg/mg is considered moderately increased>0.50 mg/mg is considered severely increasedKDIGO. (2013). KDIGO 2012 Clinical Practice Guideline for the Evaluation and Management of Chronic Kidney Disease. Official Journal of the International Society of Nephrology, 3(1), 1-150. Performed By: #### 2 890-2 ####[facility] [id number] [place] [id number] [place] Protein/Creatinine (U) [Mass ratio]on 10-10-2024 Creatinine (U) [Mass/Vol] 32.6 mg/dL Normal 20.0-300.0 [facility] Comment on above: Order Comment: Speci men Type: URINE SPECIMENOrdering Facility: [facility] Address: [address] [place] [address] Performed By: #### 2 890-2 ####[facility]IAL HOSPITALIA [id number] [place] [id number] [place] Protein (U) [Mass/Vol] 7 mg/dL Normal 0-20 [facility] Comment on above: Order Comment: Speci men Type: URINE SPECIMENOrdering Facility: [facility] Address: [address] [place] [address] Performed By: #### 2 890-2 ####[facility] LABIA [id number] [address] [address] [place] Renal function 2000 panelon 10-10-2024 Albumin [Mass/Vol] 3.6 g/dL Low 3.9-4.9 [facility] Comment on above: Order Comment: Speci men Type: BLOOD SPECIMENOrdering Facility: [facility] Address: [address] [place] [address] Performed By: #### 1 23-9, 02232-7 ####BROWN LABORATORYCLIA [id number] [place] [address] [place] Anion gap [Moles/Vol] 11 mmol/L Normal 8-15 [facility] Comment on above: Order Comment: Speci men Type: BLOOD SPECIMENOrdering Facility: [facility] Address: [address] [place] [address] Performed By: #### 1 239, ####BROWN LABORATORYCLIA [id number] [place] [address] [place] Calcium [Mass/Vol] 9.8 mg/dL Normal 8.5-10.2 [facility] Comment on above: Order Comment: Speci men Type: BLOOD SPECIMENOrdering Facility: [facility] Address: [address] [place] [address] Performed By: #### 1 9123-9, ####BROWN LABORATORYCLIA [id number] [place] [address] [place] Chloride [Moles/Vol] 104 mmol/L Normal 98-107 [facility] Comment on above: Order Comment: Speci men Type: BLOOD SPECIMENOrdering Facility: [facility] Address: [address] [place] [address] Performed By: #### 1 9123-9, ####BROWN LABORATORYCLIA [id number] [place] [address] [place] CO2 [Moles/Vol] 22 mmol/L Normal 22-30 [facility] Comment on above: Order Comment: Speci men Type: BLOOD SPECIMENOrdering Facility: [facility] Address: [address] [place] [address] Performed By: #### 1 9123-9, 52579-0 ####BROWN LABORATORYCLIA [id number] [place] [address] [place] Creatinine [Mass/Vol] 1.29 mg/dL High 0.73-1.22 [facility] Comment on above: Order Comment: Speci men Type: BLOOD SPECIMENOrdering Facility: [facility] Address: [address] [place] [address] Performed By: #### 1 9123-9, 77857-2 ####BROWN LABORATORYCLIA [id number] [place] [id number] [place] [facility] Creatinine and Glomerular filtration rate.predicted panel (S/P/Bld) 60 mL/min/1.73m??? Normal >=60 [facility] Comment on above: Order Comment: Roldan lemons Type: BLOOD SPECIMENOrdering Facility: [facility] Address: [address] [place] [address] Result Comment: Lissa mated Glomerular Filtration Rate (eGFR) is calculated using the 2020 CKD-EPI creatinine equation. This equation utilizes serum creatinine, sex, and age as parameters. The creatinine assay has traceable calibration to isotope dilution-mass spectrometry. Refer to KDIGO guidelines for clinical interpretation. In patients with unstable renal function, e.g. those with acute kidney injury, the eGFR may not accurately reflect actual GFR. Performed By: #### 1 9123-9, 26035-9 ####BROWN LABORATORYCLIA [id number] [place] [address] [place] [facility] Glucose [Mass/Vol] 82 mg/dL Normal 74-99 [facility] Comment on above: Order Comment: Roldan lemons Type: BLOOD SPECIMENOrdering Facility: [facility] Address: [address] [place] [address] Result Comment: The [place] Diabetes Association (ADA) provides guidance for cutoff values for fasting glucose and random glucose. The ADA defines fasting as no caloric intake for at least 8 hours. Fasting plasma glucose results between 100 to 125 mg/dL indicate increased risk for diabetes (prediabetes).Fasting plasma glucose results greater than or equal to 126 mg/dL meet the criteria for diagnosis of diabetes. In the absence of unequivocal hyperglycemia, results should be confirmed by repeat testing. In a patient with classic symptoms of hyperglycemia or hyperglycemic crisis, random plasma glucose results greater than or equal to 200 mg/dL meet the criteria for diagnosis of diabetes.Reference: Standards of Medical Care in Diabetes 2016, [place] Diabetes Association. Diabetes Care. 2016.39(Suppl 1). Performed By: #### 1 9123-9, 20301-7 ####BROWN LABORATORYCLIA [id number] [place] [address] [place] Phosphate [Mass/Vol] 4.4 mg/dL Normal 2.7-4.8 [facility] Comment on above: Order Comment: Speci men Type: BLOOD SPECIMENOrdering Facility: [facility] Address: [address] [place] [address] [place] [address] Performed By: #### 1 9123-9, 54123-6 ####BROWN LABORATORYCLIA [id number] [place] [address] [place] Potassium [Moles/Vol] 4.6 mmol/L Normal 3.7-5.1 [facility] Comment on above: Order Comment: Speci men Type: BLOOD SPECIMENOrdering Facility: [facility] Address: [address] [place] [address] Performed By: #### 1 9123-9, 57408-5 ####BROWN LABORATORYCLIA [id number] [address] [place] Sodium [Moles/Vol] 137 mmol/L Normal 136-144 [facility] Comment on above: Order Comment: Speci men Type: BLOOD SPECIMENOrdering Facility: [facility] Address: [address] [place] [address] Performed By: #### 1 9123-9, 52660-1 ####BROWN LABORATORYCLIA [id number] [place] [address] [place] Urea nitrogen [Mass/Vol] 35 mg/dL High 9-24 [facility] Comment on above: Order Comment: Speci men Type: BLOOD SPECIMENOrdering Facility: [facility] Address: [address] [place] [address] Performed By: #### 1 9123-9, 25440-5 ####BROWN LABORATORYCLIA [id number] [place] [address] [place] URINALYSIS, REFLEX MICROSCOP ICon 10-10-2024 Bilirubin Ql (U) Negative Normal Negative [facility] Comment on above: Order Comment: Speci men Type: URINE SPECIMENOrdering Facility: [facility] Address: [address] [place] [address] Performed By: #### L [id number] ####BROWN LABORATORYCLIA [id number] [place] [address] [place] Clarity (Unsp spec) Clear Normal Clear [facility] Comment on above: Order Comment: Speci men Type: URINE SPECIMENOrdering Facility: [facility] Address: [address] [place] [address] Performed By: #### L [id number] ####BROWN LABORATORYCLIA [id number] [address] [place] Color (U) Yellow Normal Yellow [facility] Comment on above: Order Comment: Speci men Type: URINE SPECIMENOrdering Facility: [facility] Address: [address] [place] [address] Performed By: #### L [id number] ####BROWN LABORATORYCLIA [id number] [address] [place] Glucose Test strip (U) [Mass/Vol] Negative Normal Negative [facility] Comment on above: Order Comment: Speci men Type: URINE SPECIMENOrdering Facility: [facility] Address: [address] [place] [address] Performed By: #### L [id number] ####BROWN LABORATORYCLIA [id number] [address] [place] Hemoglobin Ql (U) Negative Normal Negative [facility] Comment on above: Order Comment: Speci men Type: URINE SPECIMENOrdering Facility: [facility] Address: [address] [place] [address] Performed By: #### L [id number] ####BROWN LABORATORYCLIA [id number] [place] [id number] [facility] [place] Ketones Ql (U) Negative Normal Negative [facility] Comment on above: Order Comment: Speci men Type: URINE SPECIMENOrdering Facility: [facility] Address: [address] [place] [address] Performed By: #### L [id number] ####BROWN LABORATORYCLIA [id number] [place] [address] [facility] [place] Leukocyte esterase Test strip Ql (U) Negative Normal Negative [facility] Comment on above: Order Comment: Speci men Type: URINE SPECIMENOrdering Facility: [facility] Address: [address] [place] [address] Performed By: #### L [id number] ####BROWN LABORATORYCLIA [id number] [place] [address] [place] Nitrite Ql (U) Negative Normal Negative [facility] Comment on above: Order Comment: Speci men Type: URINE SPECIMENOrdering Facility: [facility] Address: [address] [place] [address] Performed By: #### L [id number] ####BROWN LABORATORYCLIA [id number] [place] [address] [place] pH (U) 6.0 [pH] Normal 5.0-8.0 [facility] Comment on above: Order Comment: Speci men Type: URINE SPECIMENOrdering Facility: [facility] Address: [address] [place] [address] Performed By: #### L [id number] ####PINETOP LABORATORYCLIA [id number] [place] [address] [place] Protein (U) [Mass/Vol] Negative Normal Negative [facility] Comment on above: Order Comment: Speci men Type: URINE SPECIMENOrdering Facility: [facility] Address: [address] [place] [address] Performed By: #### L [id number] ####BROWN LABORATORYCLIA [id number] [address] [place] Specific gravity (U) [Rel density] <=1.005 Low 1.005-1.030 [facility] Comment on above: Order Comment: Speci men Type: URINE SPECIMENOrdering Facility: [facility] Address: [address] [place] [address] Performed By: #### L [id number] ####BROWN LABORATORYCLIA [id number] [address] [place] Urobilinogen Ql (U) 0.2 EU/dL Normal 0.2-1.0 EU/dL [facility] Comment on above: Order Comment: Speci men Type: URINE SPECIMENOrdering Facility: [facility] Address: [address] [place] [address] Performed By: #### L [id number] ####BROWN LABORATORYCLIA [id number] [place] [address] [place] US KIDNEY/BLADDERon 10-11-19 US KIDNEY/BLADDER Normal [facility] CONSULT PROGon 10-09-2024 CONSULT PROG Normal [facility] CASE MANAGEMon 10-08-2024 CASE MANAGEM Normal [facility] CBC W Auto Differential pane l (Bld)on 10-08-2024 Basophils (Bld) [#/Vol] 0.06 10*3/uL Normal <0.11 [facility] Comment on above: Order Comment: Speci men Type: BLOOD SPECIMENOrdering Facility: [facility] Address: [address] [place] [address] Performed By: #### 5 7021-8 ####BROWN LABORATORYCLIA [id number] [place] [address] [place] Basophils/100 WBC (Bld) 0.8 % Normal [facility] Comment on above: Order Comment: Speci men Type: BLOOD SPECIMENOrdering Facility: [facility] Address: [address] [place] [address] Performed By: #### 5 7021-8 ####BROWN LABORATORYCLIA [id number] [place] [address] [place] Differential cell count method Nom (Bld) Auto Normal [facility] Comment on above: Order Comment: Speci men Type: BLOOD SPECIMENOrdering Facility: [facility] Address: [address] [place] [address] Performed By: #### 5 7021-8 ####BROWN LABORATORYCLIA [id number] [place] [address] [place] Eosinophils (Bld) [#/Vol] 0.20 10*3/uL Normal <0.46 [facility] Comment on above: Order Comment: Speci men Type: BLOOD SPECIMENOrdering Facility: [facility] Address: [address] [place] [address] Performed By: #### 5 7021-8 ####BROWN LABORATORYCLIA [id number] [place] [address] [place] Eosinophils/100 WBC (Bld) 2.6 % Normal [facility] Comment on above: Order Comment: Speci men Type: BLOOD SPECIMENOrdering Facility: [facility] Address: [address] [place] [address] Performed By: #### 5 7021-8 ####BROWN LABORATORYCLIA [id number] [address] [place] Erythrocyte distribution width (RBC) [Ratio] 15.8 % High 11.5-15.0 [facility] Comment on above: Order Comment: Speci men Type: BLOOD SPECIMENOrdering Facility: [facility] Address: [address] [place] [address] Performed By: #### 5 7021-8 ####BROWN LABORATORYCLIA [id number] [address] [place] Hematocrit (Bld) [Volume fraction] 30.5 % Low 39.0-51.0 [facility] Comment on above: Order Comment: Speci men Type: BLOOD SPECIMENOrdering Facility: [facility] Address: [address] [place] [address] Performed By: #### 5 7021-8 ####BROWN LABORATORYCLIA [id number] [place] [address] [place] Hemoglobin (Bld) [Mass/Vol] 9.7 g/dL Low 13.0-17.0 [facility] Comment on above: Order Comment: Speci men Type: BLOOD SPECIMENOrdering Facility: [facility] Address: [address] [place] [address] Performed By: #### 5 7021-8 ####BROWN LABORATORYCLIA [id number] [place] [address] [place] Immature granulocytes (Bld) [#/Vol] 0.04 10*3/uL Normal <0.10 [facility] Comment on above: Order Comment: Speci men Type: BLOOD SPECIMENOrdering Facility: [facility] Address: [address] [place] [address] Performed By: #### 5 7021-8 ####BROWN LABORATORYCLIA [id number] [address] Immature granulocytes/100 WBC (Bld) 0.5 % Normal [facility] Comment on above: Order Comment: Speci men Type: BLOOD SPECIMENOrdering Facility: [facility] Address: [address] [place] [address] Performed By: #### 5 7021-8 ####BROWN LABORATORYCLIA [id number] [place] [address] [place] Lymphocytes (Bld) [#/Vol] 0.85 10*3/uL Low 1.00-4.00 [facility] Comment on above: Order Comment: Speci men Type: BLOOD SPECIMENOrdering Facility: [facility] Address: [address] [place] [address] Performed By: #### 5 7021-8 ####BROWN LABORATORYCLIA [id number] [address] Lymphocytes/100 WBC (Bld) 11.2 % Normal [facility] Comment on above: Order Comment: Speci men Type: BLOOD SPECIMENOrdering Facility: [facility] Address: [address] [place] [address] Performed By: #### 5 7021-8 ####BROWN LABORATORYCLIA [id number] [address] [place] MCH (RBC) [Entitic mass] 28.8 pg Normal 26.0-34.0 [facility] Comment on above: Order Comment: Speci men Type: BLOOD SPECIMENOrdering Facility: [facility] Address: [address] [place] [address] Performed By: #### 5 7021-8 ####BROWN LABORATORYCLIA [id number] [address] MCHC (RBC) [Mass/Vol] 31.8 g/dL Normal 30.5-36.0 [facility] Comment on above: Order Comment: Speci men Type: BLOOD SPECIMENOrdering Facility: [facility] Address: [address] [place] [address] Performed By: #### 5 7021-8 ####BROWN LABORATORYCLIA [id number] [place] [address] [place] MCV (RBC) [Entitic vol] 90.5 fL Normal 80.0-100.0 [facility] Comment on above: Order Comment: Speci men Type: BLOOD SPECIMENOrdering Facility: [facility] Address: [address] [place] [address] Performed By: #### 5 7021-8 ####BROWN LABORATORYCLIA [id number] [place] [address] [place] Monocytes (Bld) [#/Vol] 0.91 10*3/uL High <0.87 [facility] Comment on above: Order Comment: Speci men Type: BLOOD SPECIMENOrdering Facility: [facility] Address: [address] [place] [address] Performed By: #### 5 7021-8 ####BROWN LABORATORYCLIA [id number] [address] [place] Monocytes/100 WBC (Bld) 12.0 % Normal [facility] Comment on above: Order Comment: Speci men Type: BLOOD SPECIMENOrdering Facility: [facility] Address: [address] [place] [address] Performed By: #### 5 7021-8 ####BROWN LABORATORYCLIA [id number] [address] [place] Neutrophils (Bld) [#/Vol] 5.54 10*3/uL Normal 1.45-7.50 [facility] Comment on above: Order Comment: Speci men Type: BLOOD SPECIMENOrdering Facility: [facility] Address: [address] [place] [address] Performed By: #### 5 7021-8 ####BROWN LABORATORYCLIA [id number] [address] [place] Neutrophils/100 WBC (Bld) 72.9 % Normal [facility] Comment on above: Order Comment: Speci men Type: BLOOD SPECIMENOrdering Facility: [facility] Address: [address] [place] [address] Performed By: #### 5 7021-8 ####BROWN LABORATORYCLIA [id number] [place] [address] [place] Nucleated RBC (Bld) [#/Vol] 10*3/uL Normal <0.01 [facility] Comment on above: Order Comment: Speci men Type: BLOOD SPECIMENOrdering Facility: [facility] Address: [address] [place] [address] Performed By: #### 5 7021-8 ####BROWN LABORATORYCLIA [id number] [place] [address] [place] Nucleated RBC/100 WBC (Bld) [Ratio] 0.0 /100 WBC Normal [facility] Comment on above: Order Comment: Speci men Type: BLOOD SPECIMENOrdering Facility: [facility] Address: [address] [place] [address] Performed By: #### 5 7021-8 ####BROWN LABORATORYCLIA [id number] [place] [address] [place] Platelet mean volume (Bld) [Entitic vol] 10.1 fL Normal 9.0-12.7 [facility] Comment on above: Order Comment: Speci men Type: BLOOD SPECIMENOrdering Facility: [facility] Address: [address] [place] [address] Performed By: #### 5 7021-8 ####BROWN LABORATORYCLIA [id number] [place] [address] [place] Platelets (Bld) [#/Vol] 299 10*3/uL Normal 150-400 [facility] Comment on above: Order Comment: Speci men Type: BLOOD SPECIMENOrdering Facility: [facility] Address: [address] [place] [address] Performed By: #### 5 7021-8 ####BROWN LABORATORYCLIA [id number] [place] [address] [place] RBC (Bld) [#/Vol] 3.37 10*6/uL Low 4.20-6.00 [facility] Comment on above: Order Comment: Speci men Type: BLOOD SPECIMENOrdering Facility: [facility] Address: [address] [place] [address] Performed By: #### 5 7021-8 ####BROWN LABORATORYCLIA [id number] [place] [address] [place] WBC (Bld) [#/Vol] 7.60 10*3/uL Normal 3.70-11.00 [facility] Comment on above: Order Comment: Speci men Type: BLOOD SPECIMENOrdering Facility: [facility] Address: [address] [place] [address] Performed By: #### 5 7021-8 ####BROWN LABORATORYCLIA [id number] [address] [place] CONSULT PROGon 10-08-2024 CONSULT PROG Normal [facility] Comprehensive metabolic 2000 panelon 10-08-2024 Albumin [Mass/Vol] 3.6 g/dL Low 3.9-4.9 [facility] Comment on above: Order Comment: Speci men Type: BLOOD SPECIMENOrdering Facility: [facility] Address: [address] [place] [address] Performed By: #### 2 4323-8 ####BROWN LABORATORYCLIA [id number] [address] [place] ALP [Catalytic activity/Vol] 98 U/L Normal 38-113 [facility] Comment on above: Order Comment: Speci men Type: BLOOD SPECIMENOrdering Facility: [facility] Address: [address] [place] [address] Performed By: #### 2 4323-8 ####BROWN LABORATORYCLIA [id number] [address] ALT [Catalytic activity/Vol] 15 U/L Normal 10-54 [facility] Comment on above: Order Comment: Speci men Type: BLOOD SPECIMENOrdering Facility: [facility] Address: [address] [place] [address] Performed By: #### 2 4323-8 ####BROWN LABORATORYCLIA [id number] [address] Anion gap [Moles/Vol] 10 mmol/L Normal 8-15 [facility] Comment on above: Order Comment: Speci men Type: BLOOD SPECIMENOrdering Facility: [facility] Address: [address] [place] [address] Performed By: #### 2 4323-8 ####BROWN LABORATORYCLIA [id number] [place] [address] [place] AST [Catalytic activity/Vol] 19 U/L Normal 14-40 [facility] Comment on above: Order Comment: Speci men Type: BLOOD SPECIMENOrdering Facility: [facility] Address: [address] [place] [address] Performed By: #### 2 4323-8 ####BROWN LABORATORYCLIA [id number] [place] [address] [place] Bilirubin [Mass/Vol] 0.2 mg/dL Normal 0.2-1.3 [facility] Comment on above: Order Comment: Speci men Type: BLOOD SPECIMENOrdering Facility: [facility] Address: [address] [place] [address] Performed By: #### 2 4323-8 ####BROWN LABORATORYCLIA [id number] [place] [address] [place] Calcium [Mass/Vol] 9.1 mg/dL Normal 8.5-10.2 [facility] Comment on above: Order Comment: Speci men Type: BLOOD SPECIMENOrdering Facility: [facility] Address: [address] [place] [address] Performed By: #### 2 4323-8 ####BROWN LABORATORYCLIA [id number] [place] [address] [place] Chloride [Moles/Vol] 100 mmol/L Normal 98-107 [facility] Comment on above: Order Comment: Speci men Type: BLOOD SPECIMENOrdering Facility: [facility] Address: [address] [place] [address] Performed By: #### 2 4323-8 ####BROWN LABORATORYCLIA [id number] [place] [address] [place] CO2 [Moles/Vol] 20 mmol/L Low 22-30 [facility] Comment on above: Order Comment: Speci men Type: BLOOD SPECIMENOrdering Facility: [facility] Address: [address] [place] [address] Performed By: #### 2 4323-8 ####BROWN LABORATORYCLIA [id number] [place] [id number] [place] Creatinine [Mass/Vol] 1.53 mg/dL High 0.73-1.22 [facility] Comment on above: Order Comment: Roldan lemons Type: BLOOD SPECIMENOrdering Facility: [facility] Address: [address] [place] [address] Performed By: #### 2 4323-8 ####BROWN LABORATORYCLIA [id number] [address] Creatinine and Glomerular filtration rate.predicted panel (S/P/Bld) 49 mL/min/1.73m??? Low >=60 [facility] Comment on above: Order Comment: Roldan lemons Type: BLOOD SPECIMENOrdering Facility: [facility] Address: [address] [place] [address] Result Comment: Lissa mated Glomerular Filtration Rate (eGFR) is calculated using the 2020 CKD-EPI creatinine equation. This equation utilizes serum creatinine, sex, and age as parameters. The creatinine assay has traceable calibration to isotope dilution-mass spectrometry. Refer to KDIGO guidelines for clinical interpretation. In patients with unstable renal function, e.g. those with acute kidney injury, the eGFR may not accurately reflect actual GFR. Performed By: #### 2 4323-8 ####BROWN LABORATORYCLIA [id number] [address] [place] Glucose [Mass/Vol] 110 mg/dL High 74-99 [facility] Comment on above: Order Comment: Roldan lemons Type: BLOOD SPECIMENOrdering Facility: [facility] Address: [address] [place] [address] Result Comment: The [place] Diabetes Association (ADA) provides guidance for cutoff values for fasting glucose and random glucose. The ADA defines fasting as no caloric intake for at least 8 hours. Fasting plasma glucose results between 100 to 125 mg/dL indicate increased risk for diabetes (prediabetes).Fasting plasma glucose results greater than or equal to 126 mg/dL meet the criteria for diagnosis of diabetes. In the absence of unequivocal hyperglycemia, results should be confirmed by repeat testing. In a patient with classic symptoms of hyperglycemia or hyperglycemic crisis, random plasma glucose results greater than or equal to 200 mg/dL meet the criteria for diagnosis of diabetes.Reference: Standards of Medical Care in Diabetes 2016, [place] [employer] Association. Diabetes Care. 2016.39(Suppl 1). Performed By: #### 2 4323-8 ####BROWN LABORATORYCLIA [id number] [address] STATES OF [facility] Potassium [Moles/Vol] 5.2 mmol/L High 3.7-5.1 [facility] Comment on above: Order Comment: Speci cristo Type: BLOOD SPECIMENOrdering Facility: [facility] Address: [address] [place] [address] Performed By: #### 2 4323-8 ####BROWN LABORATORYCLIA [id number] [address] Protein [Mass/Vol] 6.4 g/dL Normal 6.3-8.0 [facility] Comment on above: Order Comment: Jesusi cristo Type: BLOOD SPECIMENOrdering Facility: [facility] Address: [address] [place] [address] Performed By: #### 2 4323-8 ####BROWN LABORATORYCLIA [id number] [address] Sodium [Moles/Vol] 130 mmol/L Low 136-144 [facility] Comment on above: Order Comment: Roldan lemons Type: BLOOD SPECIMENOrdering Facility: [facility] Address: [address] [place] [address] Performed By: #### 2 4323-8 ####BROWN LABORATORYCLIA [id number] [address] STATES [facility] Urea nitrogen [Mass/Vol] 33 mg/dL High 9-24 [facility] Comment on above: Order Comment: Roldan lemons Type: BLOOD SPECIMENOrdering Facility: [facility] Address: [address] [place] [address] Performed By: #### 2 4323-8 ####BROWN LABORATORYCLIA [id number] [address] NURSING PROGon 03-12-2025 NURSING PROG Normal [facility] CASE MANAGEMon 10-07-2024 CASE MANAGEM Normal [facility] CONSULT PROGon 10-07-2024 CONSULT PROG Normal [facility] THERAPY NTon 10-07-2024 THERAPY NT Normal [facility] THERAPY NT Normal [facility] CASE MANAGEMon 10-06-2024 CASE MANAGEM Normal [facility] CASE MANAGEM Normal [facility] CONSULTon 10-06-2024 CONSULT Normal [facility] NUTRITIONon 10-06-2024 NUTRITION Normal [facility] THERAPY NTon 10-06-2024 THERAPY NT Normal [facility] THERAPY NT Normal [facility] CBC W Auto Differential pane l (Bld)on 10-05-2024 Basophils (Bld) [#/Vol] 0.05 10*3/uL Normal <0.11 [facility] Comment on above: Order Comment: Speci men Type: BLOOD SPECIMENOrdering Facility: [facility] Address: [address] [place] [address] Performed By: #### 5 7021-8 ####BROWN LABORATORYCLIA [id number] [place] [address] [place] Basophils/100 WBC (Bld) 1.0 % Normal [facility] Comment on above: Order Comment: Speci men Type: BLOOD SPECIMENOrdering Facility: [facility] Address: [address] [place] [address] Performed By: #### 5 7021-8 ####BROWN LABORATORYCLIA [id number] [place] [address] [place] Differential cell count method Nom (Bld) Auto Normal [facility] Comment on above: Order Comment: Speci men Type: BLOOD SPECIMENOrdering Facility: [facility] Address: [address] [place] [address] Performed By: #### 5 7021-8 ####BROWN LABORATORYCLIA [id number] [place] [address] [place] Eosinophils (Bld) [#/Vol] 0.21 10*3/uL Normal <0.46 [facility] Comment on above: Order Comment: Speci men Type: BLOOD SPECIMENOrdering Facility: [facility] Address: [address] [place] [address] Performed By: #### 5 7021-8 ####BROWN LABORATORYCLIA [id number] [place] [address] [place] Eosinophils/100 WBC (Bld) 4.1 % Normal [facility] Comment on above: Order Comment: Speci men Type: BLOOD SPECIMENOrdering Facility: [facility] Address: [address] [place] [address] Performed By: #### 5 7021-8 ####BROWN LABORATORYCLIA [id number] [place] [address] [place] Erythrocyte distribution width (RBC) [Ratio] 15.3 % High 11.5-15.0 [facility] Comment on above: Order Comment: Speci men Type: BLOOD SPECIMENOrdering Facility: [facility] Address: [address] [place] [address] Performed By: #### 5 7021-8 ####BROWN LABORATORYCLIA [id number] [place] [address] [place] Hematocrit (Bld) [Volume fraction] 29.7 % Low 39.0-51.0 [facility] Comment on above: Order Comment: Speci men Type: BLOOD SPECIMENOrdering Facility: [facility] Address: [address] [place] [address] Performed By: #### 5 7021-8 ####BROWN LABORATORYCLIA [id number] [place] [address] [place] Hemoglobin (Bld) [Mass/Vol] 9.6 g/dL Low 13.0-17.0 [facility] Comment on above: Order Comment: Speci men Type: BLOOD SPECIMENOrdering Facility: [facility] Address: [address] [place] [address] Performed By: #### 5 7021-8 ####BROWN LABORATORYCLIA [id number] [address] [place] Immature granulocytes (Bld) [#/Vol] 0.04 10*3/uL Normal <0.10 [facility] Comment on above: Order Comment: Speci men Type: BLOOD SPECIMENOrdering Facility: [facility] Address: [address] [place] [address] Performed By: #### 5 7021-8 ####BROWN LABORATORYCLIA [id number] [address] Immature granulocytes/100 WBC (Bld) 0.8 % Normal [facility] Comment on above: Order Comment: Speci men Type: BLOOD SPECIMENOrdering Facility: [facility] Address: [address] [place] [address] Performed By: #### 5 7021-8 ####BROWN LABORATORYCLIA [id number] [place] [address] [place] Lymphocytes (Bld) [#/Vol] 0.76 10*3/uL Low 1.00-4.00 [facility] Comment on above: Order Comment: Speci men Type: BLOOD SPECIMENOrdering Facility: [facility] Address: [address] [place] [address] Performed By: #### 5 7021-8 ####BROWN LABORATORYCLIA [id number] [address] Lymphocytes/100 WBC (Bld) 14.7 % Normal [facility] Comment on above: Order Comment: Speci men Type: BLOOD SPECIMENOrdering Facility: [facility] Address: [address] [place] [address] Performed By: #### 5 7021-8 ####BROWN LABORATORYCLIA [id number] [address] [place] MCH (RBC) [Entitic mass] 28.8 pg Normal 26.0-34.0 [facility] Comment on above: Order Comment: Speci men Type: BLOOD SPECIMENOrdering Facility: [facility] Address: [address] [place] [address] Performed By: #### 5 7021-8 ####BROWN LABORATORYCLIA [id number] [address] [place] MCHC (RBC) [Mass/Vol] 32.3 g/dL Normal 30.5-36.0 [facility] Comment on above: Order Comment: Speci men Type: BLOOD SPECIMENOrdering Facility: [facility] Address: [address] [place] [address] Performed By: #### 5 7021-8 ####BROWN LABORATORYCLIA [id number] [place] [address] [place] MCV (RBC) [Entitic vol] 89.2 fL Normal 80.0-100.0 [facility] Comment on above: Order Comment: Speci men Type: BLOOD SPECIMENOrdering Facility: [facility] Address: [address] [place] [address] Performed By: #### 5 7021-8 ####BROWN LABORATORYCLIA [id number] [place] [address] [place] Monocytes (Bld) [#/Vol] 0.69 10*3/uL Normal <0.87 [facility] Comment on above: Order Comment: Speci men Type: BLOOD SPECIMENOrdering Facility: [facility] Address: [address] [place] [address] Performed By: #### 5 7021-8 ####BROWN LABORATORYCLIA [id number] [address] [place] Monocytes/100 WBC (Bld) 13.4 % Normal [facility] Comment on above: Order Comment: Speci men Type: BLOOD SPECIMENOrdering Facility: [facility] Address: [address] [place] [address] Performed By: #### 5 7021-8 ####BROWN LABORATORYCLIA [id number] [place] [address] [place] Neutrophils (Bld) [#/Vol] 3.41 10*3/uL Normal 1.45-7.50 [facility] Comment on above: Order Comment: Speci men Type: BLOOD SPECIMENOrdering Facility: [facility] Address: [address] [place] [address] Performed By: #### 5 7021-8 ####BROWN LABORATORYCLIA [id number] [address] [place] Neutrophils/100 WBC (Bld) 66.0 % Normal [facility] Comment on above: Order Comment: Speci men Type: BLOOD SPECIMENOrdering Facility: [facility] Address: [address] [facility] [place] [address] Performed By: #### 5 7021-8 ####BROWN LABORATORYCLIA [id number] [place] [address] [place] Nucleated RBC (Bld) [#/Vol] 10*3/uL Normal <0.01 [facility] Comment on above: Order Comment: Speci men Type: BLOOD SPECIMENOrdering Facility: [facility] Address: [address] [place] [address] Performed By: #### 5 7021-8 ####BROWN LABORATORYCLIA [id number] [address] [place] Nucleated RBC/100 WBC (Bld) [Ratio] 0.0 /100 WBC Normal [facility] Comment on above: Order Comment: Speci men Type: BLOOD SPECIMENOrdering Facility: [facility] Address: [address] [place] [address] Performed By: #### 5 7021-8 ####BROWN LABORATORYCLIA [id number] [place] [address] [place] Platelet mean volume (Bld) [Entitic vol] 11.1 fL Normal 9.0-12.7 [facility] Comment on above: Order Comment: Speci men Type: BLOOD SPECIMENOrdering Facility: [facility] Address: [address] [place] [address] Performed By: #### 5 7021-8 ####BROWN LABORATORYCLIA [id number] [place] [address] [place] Platelets (Bld) [#/Vol] 272 10*3/uL Normal 150-400 [facility] Comment on above: Order Comment: Speci men Type: BLOOD SPECIMENOrdering Facility: [facility] Address: [address] [place] [address] Performed By: #### 5 7021-8 ####BROWN LABORATORYCLIA [id number] [place] [address] [place] RBC (Bld) [#/Vol] 3.33 10*6/uL Low 4.20-6.00 [facility] Comment on above: Order Comment: Speci men Type: BLOOD SPECIMENOrdering Facility: [facility] Address: [address] [facility] [place] [address] Performed By: #### 5 7021-8 ####BROWN LABORATORYCLIA [id number] [address] WBC (Bld) [#/Vol] 5.16 10*3/uL Normal 3.70-11.00 [facility] Comment on above: Order Comment: Speci men Type: BLOOD SPECIMENOrdering Facility: [facility] Address: [address] [place], [place] [address] [address] Performed By: #### 5 7021-8 ####BROWN LABORATORYCLIA [id number] [address] Comprehensive metabolic 2000 panelon 10-05-2024 Albumin [Mass/Vol] 3.5 g/dL Low 3.9-4.9 [facility] Comment on above: Order Comment: Speci men Type: BLOOD SPECIMENOrdering Facility: [facility] Address: [address] [place] [address] Performed By: #### 1 9123-9, 2777-1, 21159-3 ####BROWN LABORATORYCLIA [id number] [address] ALP [Catalytic activity/Vol] 102 U/L Normal 38-113 [facility] Comment on above: Order Comment: Speci men Type: BLOOD SPECIMENOrdering Facility: [facility] Address: [address] [place] [address] Performed By: #### 1 9123-9, 2777-1, 64661-7 ####BROWN LABORATORYCLIA [id number] [address] ALT [Catalytic activity/Vol] 16 U/L Normal 10-54 [facility] Comment on above: Order Comment: Speci men Type: BLOOD SPECIMENOrdering Facility: [facility] Address: [address] [place] [address] Performed By: #### 1 9123-9, 2777-1, 13806-6 ####BROWN LABORATORYCLIA [id number] [place] [address] [place] Anion gap [Moles/Vol] 9 mmol/L Normal 8-15 [facility] Comment on above: Order Comment: Speci men Type: BLOOD SPECIMENOrdering Facility: [facility] Address: [address] [place] [address] Performed By: #### 1 9123-9, 2777-1, 40142-2 ####BROWN LABORATORYCLIA [id number] [place] [address] [place] AST [Catalytic activity/Vol] 21 U/L Normal 14-40 [facility] Comment on above: Order Comment: Speci men Type: BLOOD SPECIMENOrdering Facility: [facility] Address: [address] [place] [address] Performed By: #### 1 9123-9, 2771, 84737-2 ####BROWN LABORATORYCLIA [id number] [place] [address] [place] Bilirubin [Mass/Vol] 0.2 mg/dL Normal 0.2-1.3 [facility] Comment on above: Order Comment: Speci men Type: BLOOD SPECIMENOrdering Facility: [facility] Address: [address] [place] [address] Performed By: #### 1 9123-9, 2771, 87079-3 ####BROWN LABORATORYCLIA [id number] [address] [place] Calcium [Mass/Vol] 9.3 mg/dL Normal 8.5-10.2 [facility] Comment on above: Order Comment: Speci men Type: BLOOD SPECIMENOrdering Facility: [facility] Address: [address] [place] [address] Performed By: #### 1 9123-9, 2771, 68611-9 ####BROWN LABORATORYCLIA [id number] [place] [address] [place] Chloride [Moles/Vol] 101 mmol/L Normal 98-107 [facility] Comment on above: Order Comment: Speci men Type: BLOOD SPECIMENOrdering Facility: [facility] Address: [address] [place] [address] [id number] Performed By: #### 1 9123-9, 2776-07, 67357-8 ####BROWN LABORATORYCLIA [id number] [place] [address] [place] CO2 [Moles/Vol] 26 mmol/L Normal 22-30 [facility] Comment on above: Order Comment: Speci men Type: BLOOD SPECIMENOrdering Facility: [facility] Address: [facility] [place] [address] Performed By: #### 1 9123-9, 2776-07, ####PINETOP LABORATORYCLIA [id number] [place] [address] [place] Creatinine [Mass/Vol] 1.38 mg/dL High 0.73-1.22 [facility] Comment on above: Order Comment: Speci men Type: BLOOD SPECIMENOrdering Facility: [facility] Address: [address] [place] [address] [place] [address] Performed By: #### 1 9123-9, 2776-07, ####PINETOP LABORATORYCLIA [id number] [address] Creatinine and Glomerular filtration rate.predicted panel (S/P/Bld) 56 mL/min/1.73m??? Low >=60 [facility] Comment on above: Order Comment: Speci men Type: BLOOD SPECIMENOrdering Facility: [facility] Address: [address] [place] [address] Result Comment: Lissa mated Glomerular Filtration Rate (eGFR) is calculated using the 2020 CKD-EPI creatinine equation. This equation utilizes serum creatinine, sex, and age as parameters. The creatinine assay has traceable calibration to isotope dilution-mass spectrometry. Refer to KDIGO guidelines for clinical interpretation. In patients with unstable renal function, e.g. those with acute kidney injury, the eGFR may not accurately reflect actual GFR. Performed By: #### 1 9123-9, 2777, 86097-1 ####BROWN LABORATORYCLIA [id number] [place] [id number] [place] Glucose [Mass/Vol] 96 mg/dL Normal 74-99 [facility] Comment on above: Order Comment: Roldan lemons Type: BLOOD SPECIMENOrdering Facility: [facility] Address: [address] [place] [address] Result Comment: The [place] Diabetes [employer] (ADA) provides guidance for cutoff values for fasting glucose and random glucose. The ADA defines fasting as no caloric intake for at least 8 hours. Fasting plasma glucose results between 100 to 125 mg/dL indicate increased risk for diabetes (prediabetes).Fasting plasma glucose results greater than or equal to 126 mg/dL meet the criteria for diagnosis of diabetes. In the absence of unequivocal hyperglycemia, results should be confirmed by repeat testing. In a patient with classic symptoms of hyperglycemia or hyperglycemic crisis, random plasma glucose results greater than or equal to 200 mg/dL meet the criteria for diagnosis of diabetes.Reference: Standards of Medical Care in Diabetes 2016, [place] [employer]. Diabetes Care. 2016.39(Suppl 1). Performed By: #### 1 9123-9, 2777-, 96657-9 ####BROWN LABORATORYCLIA [id number] [place] [address] [place] Potassium [Moles/Vol] 4.8 mmol/L Normal 3.7-5.1 [facility] Comment on above: Order Comment: Roldan lemons Type: BLOOD SPECIMENOrdering Facility: [facility] Address: [address] [place] [address] Performed By: #### 1 9123-9, 2777, 73263-5 ####BROWN LABORATORYCLIA [id number] [place] [address] [place] Protein [Mass/Vol] 6.2 g/dL Low 6.3-8.0 [facility] Comment on above: Order Comment: Roldan lemons Type: BLOOD SPECIMENOrdering Facility: [facility] Address: [address] [place] [address] Performed By: #### 1 9123-9, 27701-27, 43749-6 ####BROWN LABORATORYCLIA [id number] [place] [address] [place] Sodium [Moles/Vol] 136 mmol/L Normal 136-144 [facility] Comment on above: Order Comment: Speci men Type: BLOOD SPECIMENOrdering Facility: [facility] Address: [address] [place] [address] Performed By: #### 1 9123-9, 2777-1, 85980-4 ####BROWN LABORATORYCLIA [id number] [place] [address] [place] Urea nitrogen [Mass/Vol] 27 mg/dL High 9-24 [facility] Comment on above: Order Comment: Speci men Type: BLOOD SPECIMENOrdering Facility: [facility] Address: [address] [place] [address] Performed By: #### 1 9123-9, 2777-1, 40753-3 ####BROWN LABORATORYCLIA [id number] [place] [id number] [place] Magnesium SerPl-mCncon 10-05 Magnesium [Mass/Vol] 2.1 mg/dL Normal 1.7-2.3 [facility] Comment on above: Order Comment: Speci men Type: BLOOD SPECIMENOrdering Facility: [facility] Address: [address] [place] [address] Performed By: #### 1 9123-9, 2777-1, 42670-6 ####PINETOP LABORATORYCLIA [id number] [place] [address] [place] Phosphate SerPl-mCncon 10-05 Phosphate [Mass/Vol] 4.1 mg/dL Normal 2.7-4.8 [facility] Comment on above: Order Comment: Speci men Type: BLOOD SPECIMENOrdering Facility: [facility] Address: [address] [place] [address] Performed By: #### 1 9123-9, 2777-1, 74209-0 ####PINETOP LABORATORYCLIA [id number] [place] [id number] [place] CASE MANAGEMon 10-03-2024 CASE MANAGEM Normal [facility] CASE MANAGEM Normal [facility] CONSULT PROGon 10-03-2024 CONSULT PROG Normal [facility] CASE MANAGEMon 10-02-2024 CASE MANAGEM Normal [facility] CBC panel Auto (Bld)on 10-02 Erythrocyte distribution width (RBC) [Ratio] 14.5 % Normal 11.5-15.0 [facility] Comment on above: Order Comment: Speci men Type: BLOOD SPECIMENOrdering Facility: [facility] Address: [address] [place] [address] Performed By: #### 5 8410-2 ####BROWN LABORATORYCLIA [id number] [address] OF [facility] Hematocrit (Bld) [Volume fraction] 28.6 % Low 39.0-51.0 [facility] Comment on above: Order Comment: Speci men Type: BLOOD SPECIMENOrdering Facility: [facility] Address: [address] [place] [address] Performed By: #### 5 8410-2 ####BROWN LABORATORYCLIA [id number] [address] [place] Hemoglobin (Bld) [Mass/Vol] 9.1 g/dL Low 13.0-17.0 [facility] Comment on above: Order Comment: Speci men Type: BLOOD SPECIMENOrdering Facility: [facility] Address: [address] [place] [address] Performed By: #### 5 8410-2 ####BROWN LABORATORYCLIA [id number] [address] [place] MCH (RBC) [Entitic mass] 28.3 pg Normal 26.0-34.0 [facility] Comment on above: Order Comment: Speci men Type: BLOOD SPECIMENOrdering Facility: [facility] Address: [address] [place] [address] Performed By: #### 5 8410-2 ####BROWN LABORATORYCLIA [id number] [address] [place] MCHC (RBC) [Mass/Vol] 31.8 g/dL Normal 30.5-36.0 [facility] Comment on above: Order Comment: Speci men Type: BLOOD SPECIMENOrdering Facility: [facility] Address: [address] [place] [address] Performed By: #### 5 8410-2 ####BROWN LABORATORYCLIA [id number] [address] [place] MCV (RBC) [Entitic vol] 89.1 fL Normal 80.0-100.0 [facility] Comment on above: Order Comment: Speci men Type: BLOOD SPECIMENOrdering Facility: [facility] Address: [address] [place] [address] Performed By: #### 5 8410-2 ####BROWN LABORATORYCLIA [id number] [place] [address] [place] Nucleated RBC (Bld) [#/Vol] 10*3/uL Normal <0.01 [facility] Comment on above: Order Comment: Speci men Type: BLOOD SPECIMENOrdering Facility: [facility] Address: [address] [place] [address] Performed By: #### 5 8410-2 ####BROWN LABORATORYCLIA [id number] [address] [place] Platelet mean volume (Bld) [Entitic vol] 11.1 fL Normal 9.0-12.7 [facility] Comment on above: Order Comment: Speci men Type: BLOOD SPECIMENOrdering Facility: [facility] Address: [address] [place] [address] Performed By: #### 5 8410-2 ####BROWN LABORATORYCLIA [id number] [address] [place] Platelets (Bld) [#/Vol] 202 10*3/uL Normal 150-400 [facility] Comment on above: Order Comment: Speci men Type: BLOOD SPECIMENOrdering Facility: [facility] Address: [address] [place] [address] Performed By: #### 5 8410-2 ####BROWN LABORATORYCLIA [id number] [place] [address] [place] RBC (Bld) [#/Vol] 3.21 10*6/uL Low 4.20-6.00 [facility] Comment on above: Order Comment: Speci men Type: BLOOD SPECIMENOrdering Facility: [facility] Address: [address] [place] [address] Performed By: #### 5 8410-2 ####BROWN LABORATORYCLIA [id number] [place] [address] [place] WBC (Bld) [#/Vol] 4.58 10*3/uL Normal 3.70-11.00 [facility] Comment on above: Order Comment: Speci men Type: BLOOD SPECIMENOrdering Facility: [facility] Address: [address] [place] [address] Performed By: #### 5 8410-2 ####PINETOP LABORATORYCLIA [id number] [address] [place] CONSULT PROGon 10-02-2024 CONSULT [facility] NURSING PROGon 10-02-2024 NURSING [facility] THERAPY NTon 10-02-2024 THERAPY [facility] ALLIED HEALTHon 10-01-2024 [facility] CBC panel Auto (Bld)on 10-01 Erythrocyte distribution width (RBC) [Ratio] 14.2 % Normal 11.5-15.0 [facility] Comment on above: Order Comment: Speci men Type: BLOOD SPECIMENOrdering Facility: [facility] Address: [address] [place] [address] Performed By: #### 5 8410-2 ####BROWN LABORATORYCLIA [id number] [address] [place] Hematocrit (Bld) [Volume fraction] 26.8 % Low 39.0-51.0 [facility] Comment on above: Order Comment: Speci men Type: BLOOD SPECIMENOrdering Facility: [facility] Address: [address] [place] [address] Performed By: #### 5 8410-2 ####BROWN LABORATORYCLIA [id number] [place] [address] [place] Hemoglobin (Bld) [Mass/Vol] 9.0 g/dL Low 13.0-17.0 [facility] Comment on above: Order Comment: Speci men Type: BLOOD SPECIMENOrdering Facility: [facility] Address: [address] [place] [address] Performed By: #### 5 8410-2 ####BROWN LABORATORYCLIA [id number] [address] MCH (RBC) [Entitic mass] 29.0 pg Normal 26.0-34.0 [facility] Comment on above: Order Comment: Speci men Type: BLOOD SPECIMENOrdering Facility: [facility] Address: [address] [place] [address] Performed By: #### 5 8410-2 ####BROWN LABORATORYCLIA [id number] [address] MCHC (RBC) [Mass/Vol] 33.6 g/dL Normal 30.5-36.0 [facility] Comment on above: Order Comment: Speci men Type: BLOOD SPECIMENOrdering Facility: [facility] Address: [address] [place] [address] Performed By: #### 5 8410-2 ####BROWN LABORATORYCLIA [id number] [address] MCV (RBC) [Entitic vol] 86.5 fL Normal 80.0-100.0 [facility] Comment on above: Order Comment: Speci men Type: BLOOD SPECIMENOrdering Facility: [facility] Address: [address] [place] [address] Performed By: #### 5 8410-2 ####BROWN LABORATORYCLIA [id number] [address] Nucleated RBC (Bld) [#/Vol] 10*3/uL Normal <0.01 [facility] Comment on above: Order Comment: Speci men Type: BLOOD SPECIMENOrdering Facility: [facility] Address: [address] [place] [address] Performed By: #### 5 8410-2 ####BROWN LABORATORYCLIA [id number] [address] Platelet mean volume (Bld) [Entitic vol] 11.0 fL Normal 9.0-12.7 [facility] Comment on above: Order Comment: Speci men Type: BLOOD SPECIMENOrdering Facility: [facility] Address: [address] [place] [address] Performed By: #### 5 8410-2 ####BROWN LABORATORYCLIA [id number] [address] Platelets (Bld) [#/Vol] 178 10*3/uL Normal 150-400 [facility] Comment on above: Order Comment: Speci men Type: BLOOD SPECIMENOrdering Facility: [facility] Address: [address] [place] [address] Performed By: #### 5 8410-2 ####BROWN LABORATORYCLIA [id number] [address] [place] RBC (Bld) [#/Vol] 3.10 10*6/uL Low 4.20-6.00 [facility] Comment on above: Order Comment: Speci men Type: BLOOD SPECIMENOrdering Facility: [facility] Address: [address] [place] [address] Performed By: #### 5 8410-2 ####BROWN LABORATORYCLIA [id number] [address] WBC (Bld) [#/Vol] 4.86 10*3/uL Normal 3.70-11.00 [facility] Comment on above: Order Comment: Speci men Type: BLOOD SPECIMENOrdering Facility: [facility] Address: [address] [place] [address] Performed By: #### 5 8410-2 ####BROWN LABORATORYCLIA [id number] [address] CONSULT PROGon 10-01-[address] [facility] ECG COMPLETEon 10-01-2024 ECG COMPLETE Normal [facility] PT EDon 10-01-2024 PT ED Normal [facility] THERAPY NTon 10-01-2024 THERAPY NT Normal [facility] THERAPY NT Normal [facility] THERAPY NT Normal [facility] CASE MANAGEMon 09-30-2024 CASE MANAGEM Normal [facility] CASE MANAGEM [facility] CBC W Auto Differential pane l (Bld)on 09-30-2024 Basophils (Bld) [#/Vol] 10*3/uL Normal <0.11 [facility] Comment on above: Order Comment: Speci men Type: BLOOD SPECIMENOrdering Facility: [facility] Address: [address] [place] [address] Performed By: #### 5 7021-8 ####BROWN LABORATORYCLIA [id number] [place] [address] [place] Basophils/100 WBC (Bld) 0.2 % Normal [facility] Comment on above: Order Comment: Speci men Type: BLOOD SPECIMENOrdering Facility: [facility] Address: [address] [place] [address] Performed By: #### 5 7021-8 ####BROWN LABORATORYCLIA [id number] [place] [address] [place] [facility] [place] Differential cell count method Nom (Bld) Auto Normal [facility] Comment on above: Order Comment: Speci men Type: BLOOD SPECIMENOrdering Facility: [facility] Address: [address] [place] [address] Performed By: #### 5 7021-8 ####BROWN LABORATORYCLIA [id number] [place] [address] [place] Eosinophils (Bld) [#/Vol] 0.16 10*3/uL Normal <0.46 [facility] Comment on above: Order Comment: Speci men Type: BLOOD SPECIMENOrdering Facility: [facility] Address: [address] [place] [address] Performed By: #### 5 7021-8 ####BROWN LABORATORYCLIA [id number] [place] [address] [place] Eosinophils/100 WBC (Bld) 3.6 % Normal [facility] Comment on above: Order Comment: Speci men Type: BLOOD SPECIMENOrdering Facility: [facility] Address: [address] [place] [address] Performed By: #### 5 7021-8 ####BROWN LABORATORYCLIA [id number] [place] [address] [place] Erythrocyte distribution width (RBC) [Ratio] 13.9 % Normal 11.5-15.0 [facility] Comment on above: Order Comment: Speci men Type: BLOOD SPECIMENOrdering Facility: [facility] Address: [address] [place] [address] Performed By: #### 5 7021-8 ####BROWN LABORATORYCLIA [id number] [address] Hematocrit (Bld) [Volume fraction] 27.7 % Low 39.0-51.0 [facility] Comment on above: Order Comment: Speci men Type: BLOOD SPECIMENOrdering Facility: [facility] Address: [address] [place] [address] Performed By: #### 5 7021-8 ####BROWN LABORATORYCLIA [id number] [address] [place] Hemoglobin (Bld) [Mass/Vol] 8.9 g/dL Low 13.0-17.0 [facility] Comment on above: Order Comment: Speci men Type: BLOOD SPECIMENOrdering Facility: [facility] Address: [address] [place] [address] Performed By: #### 5 7021-8 ####BROWN LABORATORYCLIA [id number] [address] [place] Immature granulocytes (Bld) [#/Vol] 0.03 10*3/uL Normal <0.10 [facility] Comment on above: Order Comment: Speci men Type: BLOOD SPECIMENOrdering Facility: [facility] Address: [address] [place] [address] Performed By: #### 5 7021-8 ####BROWN LABORATORYCLIA [id number] [address] Immature granulocytes/100 WBC (Bld) 0.7 % Normal [facility] Comment on above: Order Comment: Speci men Type: BLOOD SPECIMENOrdering Facility: [facility] Address: [address] [place] [address] Performed By: #### 5 7021-8 ####BROWN LABORATORYCLIA [id number] [address] [place] Lymphocytes (Bld) [#/Vol] 0.66 10*3/uL Low 1.00-4.00 [facility] Comment on above: Order Comment: Speci men Type: BLOOD SPECIMENOrdering Facility: [facility] Address: [address] [place] [address] Performed By: #### 5 7021-8 ####BROWN LABORATORYCLIA [id number] [address] Lymphocytes/100 WBC (Bld) 14.7 % Normal [facility] Comment on above: Order Comment: Speci men Type: BLOOD SPECIMENOrdering Facility: [facility] Address: [address] [place] [address] Performed By: #### 5 7021-8 ####BROWN LABORATORYCLIA [id number] [address] MCH (RBC) [Entitic mass] 28.3 pg Normal 26.0-34.0 [facility] Comment on above: Order Comment: Speci men Type: BLOOD SPECIMENOrdering Facility: [facility] Address: [address] [place] [address] Performed By: #### 5 7021-8 ####BROWN LABORATORYCLIA [id number] [address] [place] MCHC (RBC) [Mass/Vol] 32.1 g/dL Normal 30.5-36.0 [facility] Comment on above: Order Comment: Speci men Type: BLOOD SPECIMENOrdering Facility: [facility] Address: [address] [place] [address] Performed By: #### 5 7021-8 ####BROWN LABORATORYCLIA [id number] [address] MCV (RBC) [Entitic vol] 88.2 fL Normal 80.0-100.0 [facility] Comment on above: Order Comment: Speci men Type: BLOOD SPECIMENOrdering Facility: [facility] Address: [address] [place] [address] Performed By: #### 5 7021-8 ####BROWN LABORATORYCLIA [id number] [address] Monocytes (Bld) [#/Vol] 0.78 10*3/uL Normal <0.87 [facility] Comment on above: Order Comment: Speci men Type: BLOOD SPECIMENOrdering Facility: [facility] Address: [address] [place] [address] Performed By: #### 5 7021-8 ####BROWN LABORATORYCLIA [id number] [place] [address] [place] Monocytes/100 WBC (Bld) 17.4 % Normal [facility] Comment on above: Order Comment: Speci men Type: BLOOD SPECIMENOrdering Facility: [facility] Address: [address] [place] [address] Performed By: #### 5 7021-8 ####BROWN LABORATORYCLIA [id number] [place] [address] [place] Neutrophils (Bld) [#/Vol] 2.85 10*3/uL Normal 1.45-7.50 [facility] Comment on above: Order Comment: Speci men Type: BLOOD SPECIMENOrdering Facility: [facility] Address: [address] [place] [address] Performed By: #### 5 7021-8 ####BROWN LABORATORYCLIA [id number] [place] [address] [place] Neutrophils/100 WBC (Bld) 63.4 % Normal [facility] Comment on above: Order Comment: Speci men Type: BLOOD SPECIMENOrdering Facility: [facility] Address: [address] [place] [address] Performed By: #### 5 7021-8 ####BROWN LABORATORYCLIA [id number] [place] [address] [place] Nucleated RBC (Bld) [#/Vol] 10*3/uL Normal <0.01 [facility] Comment on above: Order Comment: Speci men Type: BLOOD SPECIMENOrdering Facility: [facility] Address: [address] [place] [address] Performed By: #### 5 7021-8 ####BROWN LABORATORYCLIA [id number] [place] [address] [place] Nucleated RBC/100 WBC (Bld) [Ratio] 0.0 /100 WBC Normal [facility] Comment on above: Order Comment: Speci men Type: BLOOD SPECIMENOrdering Facility: [facility] Address: [address] [place] [address] Performed By: #### 5 7021-8 ####BROWN LABORATORYCLIA [id number] [address] [place] Platelet mean volume (Bld) [Entitic vol] 11.3 fL Normal 9.0-12.7 [facility] Comment on above: Order Comment: Speci men Type: BLOOD SPECIMENOrdering Facility: [facility] Address: [address] [place] [address] Performed By: #### 5 7021-8 ####BROWN LABORATORYCLIA [id number] [address] [place] Platelets (Bld) [#/Vol] 185 10*3/uL Normal 150-400 [facility] Comment on above: Order Comment: Speci men Type: BLOOD SPECIMENOrdering Facility: [facility] Address: [address] [place] [address] Performed By: #### 5 7021-8 ####BROWN LABORATORYCLIA [id number] [address] [place] RBC (Bld) [#/Vol] 3.14 10*6/uL Low 4.20-6.00 [facility] Comment on above: Order Comment: Speci men Type: BLOOD SPECIMENOrdering Facility: [facility] Address: [address] [place] [address] Performed By: #### 5 7021-8 ####BROWN LABORATORYCLIA [id number] [address] [place] WBC (Bld) [#/Vol] 4.49 10*3/uL Normal 3.70-11.00 [facility] Comment on above: Order Comment: Speci men Type: BLOOD SPECIMENOrdering Facility: [facility] Address: [address] [place] [address] Performed By: #### 5 7021-8 ####BROWN LABORATORYCLIA [id number] [address] CONSULT PROGon 09-30-2024 CONSULT PROG Normal [facility] CONSULT PROG Normal [facility] Comprehensive metabolic 2000 panelon 09-30-2024 Albumin [Mass/Vol] 3.0 g/dL Low 3.9-4.9 [facility] Comment on above: Order Comment: Speci men Type: BLOOD SPECIMENOrdering Facility: [facility] Address: [address] [place] [address] Performed By: #### 2 276-4, 60873-6, 2776-1, 56326-3 ####PINETOP LABORATORYCLIA [id number] [place] [id number] [place] ALP [Catalytic activity/Vol] 90 U/L Normal 38-113 [facility] Comment on above: Order Comment: Speci men Type: BLOOD SPECIMENOrdering Facility: [facility] Address: [address] [place] [address] Performed By: #### 2 276-4, 49634-1, 2776-1, 47006-5 ####PINETOP LABORATORYCLIA [id number] [address] STATES [facility] ALT [Catalytic activity/Vol] 8 U/L Low 10-54 [facility] Comment on above: Order Comment: Speci men Type: BLOOD SPECIMENOrdering Facility: [facility] Address: [address] [place] [address] Performed By: #### 2 276-4, 29515-0, 2776-1, 32351-4 ####PINETOP LABORATORYCLIA [id number] [place] [id number] [facility] Anion gap [Moles/Vol] 9 mmol/L Normal 8-15 [facility] Comment on above: Order Comment: Speci men Type: BLOOD SPECIMENOrdering Facility: [facility] Address: [address] [place] [address] Performed By: #### 2 276-4, 88422-1, 2776-1, 72375-5 ####BROWN LABORATORYCLIA [id number] [place] [address] [place] AST [Catalytic activity/Vol] 15 U/L Normal 14-40 [facility] Comment on above: Order Comment: Speci men Type: BLOOD SPECIMENOrdering Facility: [facility] Address: [facility] [place] [address] Performed By: #### 2 276-4, 55510-7, 2776-07, ####BROWN LABORATORYCLIA [id number] [place] [address] [place] Bilirubin [Mass/Vol] 0.2 mg/dL Normal 0.2-1.3 [facility] Comment on above: Order Comment: Speci men Type: BLOOD SPECIMENOrdering Facility: [facility] Address: [address] [place] [address] Performed By: #### 2 276-4, 03499-0, 2776-07, ####BROWN LABORATORYCLIA [id number] [place] [address] [place] Calcium [Mass/Vol] 8.3 mg/dL Low 8.5-10.2 [facility] Comment on above: Order Comment: Speci men Type: BLOOD SPECIMENOrdering Facility: [facility] Address: [facility] [place] [address] Performed By: #### 2 276-4, 21926-9, 2776-07, ####PINETOP LABORATORYCLIA [id number] [place] [address] [place] Chloride [Moles/Vol] 104 mmol/L Normal 98-107 [facility] Comment on above: Order Comment: Speci men Type: BLOOD SPECIMENOrdering Facility: [facility] Address: [address] [place] [address] Performed By: #### 2 276-4, 65339-1, 2776-07, 85746-8 ####BROWN LABORATORYCLIA [id number] [place] [address] [place] CO2 [Moles/Vol] 23 mmol/L Normal 22-30 [facility] Comment on above: Order Comment: Speci men Type: BLOOD SPECIMENOrdering Facility: [facility] Address: [address] [place] [address] Performed By: #### 2 276-4, 25104-6, 7-1, 08145-9 ####PINETOP LABORATORYCLIA [id number] [place] [address] [place] [facility] Creatinine [Mass/Vol] 1.21 mg/dL Normal 0.73-1.22 [facility] Comment on above: Order Comment: Roldan lemons Type: BLOOD SPECIMENOrdering Facility: [facility] Address: [address] [place] [address] Performed By: #### 2 276-4, 23937-5, 7-1, 54649-4 ####PINET[facility] LABORATORYCLIA [id number] [place] [address] [facility] Creatinine and Glomerular filtration rate.predicted panel (S/P/Bld) 65 mL/min/1.73m??? Normal >=60 [facility] Comment on above: Order Comment: Type: BLOOD SPECIMENOrdering Facility: [facility] Address: [address] [place] [address] Result Comment: Lissa mated Glomerular Filtration Rate (eGFR) is calculated using the 2020 CKD-EPI creatinine equation. This equation utilizes serum creatinine, sex, and age as parameters. The creatinine assay has traceable calibration to isotope dilution-mass spectrometry. Refer to KDIGO guidelines for clinical interpretation. In patients with unstable renal function, e.g. those with acute kidney injury, the eGFR may not accurately reflect actual GFR. Performed By: #### 2 276-4, 93219-6, 2776-1, 16653-3 ####PINETOP LABORATORYCLIA [id number] [place] [id number] [place] [facility] Glucose [Mass/Vol] 85 mg/dL Normal 74-99 [facility] Comment on above: Order Comment: [facility] Type: BLOOD SPECIMENOrdering Facility: [facility] Address: [address] [place] [address] Result Comment: The [place] Diabetes Association (ADA) provides guidance for cutoff values for fasting glucose and random glucose. The ADA defines fasting as no caloric intake for at least 8 hours. Fasting plasma glucose results between 100 to 125 mg/dL indicate increased risk for diabetes (prediabetes).Fasting plasma glucose results greater than or equal to 126 mg/dL meet the criteria for diagnosis of diabetes. In the absence of unequivocal hyperglycemia, results should be confirmed by repeat testing. In a patient with classic symptoms of hyperglycemia or hyperglycemic crisis, random plasma glucose results greater than or equal to 200 mg/dL meet the criteria for diagnosis of diabetes.Reference: Standards of Medical Care in Diabetes 2016, [place] Diabetes Association. Diabetes Care. 2016.39(Suppl 1). Performed By: #### 2 276-4, 24431-0, 2776-, 70455-8 ####BROWN LABORATORYCLIA [id number] [place] [address] [place] Potassium [Moles/Vol] 4.2 mmol/L Normal 3.7-5.1 [facility] Comment on above: Order Comment: Roldan lemons Type: BLOOD SPECIMENOrdering Facility: [facility] Address: [address] [place] [address] Performed By: #### 2 276-4, 80768-2, 2776-07, 00604-9 ####BROWN LABORATORYCLIA [id number] [place] [address] [place] Protein [Mass/Vol] 5.3 g/dL Low 6.3-8.0 [facility] Comment on above: Order Comment: Roldan lemons Type: BLOOD SPECIMENOrdering Facility: [facility] Address: [address] [place] [address] Performed By: #### 2 276-4, 57912-8, 2776-07, 90803-9 ####BROWN LABORATORYCLIA [id number] [place] [address] [place] Sodium [Moles/Vol] 136 mmol/L Normal 136-144 [facility] Comment on above: Order Comment: Jesusi cristo Type: BLOOD SPECIMENOrdering Facility: [facility] Address: [address] [place] [address] Performed By: #### 2 276-4, 63636-9, 2776-07, 64364-1 ####BROWN LABORATORYCLIA [id number] [place] [id number] [place] Urea nitrogen [Mass/Vol] 20 mg/dL Normal 9-24 [facility] Comment on above: Order Comment: Speci men Type: BLOOD SPECIMENOrdering Facility: [facility] Address: [address] [place], [place] [address] Performed By: #### 2 276-4, 03096-6, 2776-1, 07525-2 ####BROWN LABORATORYCLIA [id number] [place] [address] [place] Ferritin SerPl-mCncon 2024 Ferritin [Mass/Vol] 258.6 ng/mL Normal 30.3-565.7 [facility] Comment on above: Order Comment: Speci men Type: BLOOD SPECIMENOrdering Facility: [facility] Address: [address] [place], [place] [address] Performed By: #### 2 276-4, 60188-5, 2776-07, 51484-9 ####PINETOP LABORATORYCLIA [id number] [place] [address] [place] Magnesium SerPl-mCncon 09-30 Magnesium [Mass/Vol] 2.0 mg/dL Normal 1.7-2.3 [facility] Comment on above: Order Comment: Speci men Type: BLOOD SPECIMENOrdering Facility: [facility] Address: [address] [place], [place] [address] Performed By: #### 2 276-4, 34725-6, 27701-27, 07930-9 ####BROWN LABORATORYCLIA [id number] [place] [address] [place] Phosphate SerPl-mCncon 09-30 Phosphate [Mass/Vol] 2.8 mg/dL Normal 2.7-4.8 [facility] Comment on above: Order Comment: Speci men Type: BLOOD SPECIMENOrdering Facility: [facility] Address: [address] [place], [place] [address] Performed By: #### 2 276-4, 73143-1, 277-, 93865-6 ####PINETOP LABORATORYCLIA [id number] [place] [address] [place] THERAPY NTon 09-30-2024 THERAPY NT Normal [facility] THERAPY NT Normal [facility] CASE MANAGEMon 09-29-2024 CASE MANAGEM Normal [facility] CBC W Auto Differential pane l (Bld)on 09-29-2024 Basophils (Bld) [#/Vol] 10*3/uL Normal <0.11 [facility] Comment on above: Order Comment: Speci men Type: BLOOD SPECIMENOrdering Facility: [facility] Address: [address] [place] [address] Performed By: #### 5 7021-8 ####BROWN LABORATORYCLIA [id number] [place] [address] [place] Basophils/100 WBC (Bld) 0.4 % Normal [facility] Comment on above: Order Comment: Speci men Type: BLOOD SPECIMENOrdering Facility: [facility] Address: [address] [place] [address] Performed By: #### 5 7021-8 ####BROWN LABORATORYCLIA [id number] [place] [address] [place] Differential cell count method Nom (Bld) Auto Normal [facility] Comment on above: Order Comment: Speci men Type: BLOOD SPECIMENOrdering Facility: [facility] Address: [address] [place] [address] Performed By: #### 5 7021-8 ####BROWN LABORATORYCLIA [id number] [place] [address] [place] Eosinophils (Bld) [#/Vol] 0.21 10*3/uL Normal <0.46 [facility] Comment on above: Order Comment: Speci men Type: BLOOD SPECIMENOrdering Facility: [facility] Address: [address] [place] [address] Performed By: #### 5 7021-8 ####BROWN LABORATORYCLIA [id number] [place] [address] [place] Eosinophils/100 WBC (Bld) 4.6 % Normal [facility] Comment on above: Order Comment: Speci men Type: BLOOD SPECIMENOrdering Facility: [facility] Address: [address] [place] [address] Performed By: #### 5 7021-8 ####BROWN LABORATORYCLIA [id number] [place] [address] [place] Erythrocyte distribution width (RBC) [Ratio] 13.6 % Normal 11.5-15.0 [facility] Comment on above: Order Comment: Speci men Type: BLOOD SPECIMENOrdering Facility: [facility] Address: [address] [place] [address] Performed By: #### 5 7021-8 ####BROWN LABORATORYCLIA [id number] [place] [address] [place] Hematocrit (Bld) [Volume fraction] 29.9 % Low 39.0-51.0 [facility] Comment on above: Order Comment: Speci men Type: BLOOD SPECIMENOrdering Facility: [facility] Address: [address] [place] [address] Performed By: #### 5 7021-8 ####BROWN LABORATORYCLIA [id number] [place] [address] [place] Hemoglobin (Bld) [Mass/Vol] 9.6 g/dL Low 13.0-17.0 [facility] Comment on above: Order Comment: Speci men Type: BLOOD SPECIMENOrdering Facility: [facility] Address: [address] [place] [address] Performed By: #### 5 7021-8 ####BROWN LABORATORYCLIA [id number] [place] [address] [place] Immature granulocytes (Bld) [#/Vol] 10*3/uL Normal <0.10 [facility] Comment on above: Order Comment: Speci men Type: BLOOD SPECIMENOrdering Facility: [facility] Address: [address] [place] [address] Performed By: #### 5 7021-8 ####BROWN LABORATORYCLIA [id number] [place] [address] [place] Immature granulocytes/100 WBC (Bld) 0.4 % Normal [facility] Comment on above: Order Comment: Speci men Type: BLOOD SPECIMENOrdering Facility: [facility] Address: [address] [place] [address] Performed By: #### 5 7021-8 ####BROWN LABORATORYCLIA [id number] [address] Lymphocytes (Bld) [#/Vol] 0.60 10*3/uL Low 1.00-4.00 [facility] Comment on above: Order Comment: Speci men Type: BLOOD SPECIMENOrdering Facility: [facility] Address: [address] [place] [address] Performed By: #### 5 7021-8 ####BROWN LABORATORYCLIA [id number] [address] Lymphocytes/100 WBC (Bld) 13.2 % Normal [facility] Comment on above: Order Comment: Speci men Type: BLOOD SPECIMENOrdering Facility: [facility] Address: [address] [place] [address] Performed By: #### 5 7021-8 ####BROWN LABORATORYCLIA [id number] [address] MCH (RBC) [Entitic mass] 28.7 pg Normal 26.0-34.0 [facility] Comment on above: Order Comment: Speci men Type: BLOOD SPECIMENOrdering Facility: [facility] Address: [address] [place] [address] Performed By: #### 5 7021-8 ####BROWN LABORATORYCLIA [id number] [address] MCHC (RBC) [Mass/Vol] 32.1 g/dL Normal 30.5-36.0 [facility] Comment on above: Order Comment: Speci men Type: BLOOD SPECIMENOrdering Facility: [facility] Address: [address] [place] [address] Performed By: #### 5 7021-8 ####BROWN LABORATORYCLIA [id number] [address] MCV (RBC) [Entitic vol] 89.3 fL Normal 80.0-100.0 [facility] Comment on above: Order Comment: Speci men Type: BLOOD SPECIMENOrdering Facility: [facility] Address: [address] [place] [address] Performed By: #### 5 7021-8 ####BROWN LABORATORYCLIA [id number] [place] [address] [place] Monocytes (Bld) [#/Vol] 0.85 10*3/uL Normal <0.87 [facility] Comment on above: Order Comment: Speci men Type: BLOOD SPECIMENOrdering Facility: [facility] Address: [address] [place] [address] Performed By: #### 5 7021-8 ####BROWN LABORATORYCLIA [id number] [address] Monocytes/100 WBC (Bld) 18.6 % Normal [facility] Comment on above: Order Comment: Speci men Type: BLOOD SPECIMENOrdering Facility: [facility] Address: [address] [place] [address] Performed By: #### 5 7021-8 ####BROWN LABORATORYCLIA [id number] [address] [place] Neutrophils (Bld) [#/Vol] 2.86 10*3/uL Normal 1.45-7.50 [facility] Comment on above: Order Comment: Speci men Type: BLOOD SPECIMENOrdering Facility: [facility] Address: [address] [place] [address] Performed By: #### 5 7021-8 ####BROWN LABORATORYCLIA [id number] [address] Neutrophils/100 WBC (Bld) 62.8 % Normal [facility] Comment on above: Order Comment: Speci men Type: BLOOD SPECIMENOrdering Facility: [facility] Address: [address] [place] [address] Performed By: #### 5 7021-8 ####BROWN LABORATORYCLIA [id number] [place] [address] [place] Nucleated RBC (Bld) [#/Vol] 10*3/uL Normal <0.01 [facility] Comment on above: Order Comment: Speci men Type: BLOOD SPECIMENOrdering Facility: [facility] Address: [address] [place] [address] Performed By: #### 5 7021-8 ####BROWN LABORATORYCLIA [id number] [address] [place] Nucleated RBC/100 WBC (Bld) [Ratio] 0.0 /100 WBC Normal [facility] Comment on above: Order Comment: Speci men Type: BLOOD SPECIMENOrdering Facility: [facility] Address: [address] [place] [address] Performed By: #### 5 7021-8 ####BROWN LABORATORYCLIA [id number] [place] [address] [place] Platelet mean volume (Bld) [Entitic vol] 11.0 fL Normal 9.0-12.7 [facility] Comment on above: Order Comment: Speci men Type: BLOOD SPECIMENOrdering Facility: [facility] Address: [address] [place] [address] Performed By: #### 5 7021-8 ####BROWN LABORATORYCLIA [id number] [address] [place] Platelets (Bld) [#/Vol] 195 10*3/uL Normal 150-400 [facility] Comment on above: Order Comment: Speci men Type: BLOOD SPECIMENOrdering Facility: [facility] Address: [address] [place] [address] Performed By: #### 5 7021-8 ####BROWN LABORATORYCLIA [id number] [address] [place] RBC (Bld) [#/Vol] 3.35 10*6/uL Low 4.20-6.00 [facility] Comment on above: Order Comment: Speci men Type: BLOOD SPECIMENOrdering Facility: [facility] Address: [address] [place] [address] Performed By: #### 5 7021-8 ####BROWN LABORATORYCLIA [id number] [address] [place] WBC (Bld) [#/Vol] 4.56 10*3/uL Normal 3.70-11.00 [facility] Comment on above: Order Comment: Speci men Type: BLOOD SPECIMENOrdering Facility: [facility] Address: [address] [place] [address] Performed By: #### 5 7021-8 ####BROWN LABORATORYCLIA [id number] [place] [address] [place] [facility] [place] CONSULT PROGon 09-29-2024 CONSULT PROG Normal [facility] COPPER BLOODon 09-29-2024 Copper [Mass/Vol] 113 ug/dL Normal 70-140 [facility] Comment on above: Order Comment: Speci men Type: BLOOD SPECIMENOrdering Facility: [facility] Address: [address] [place], [place] [address] [address] Result Comment: This test was developed, and its performance characteristics determined by the [facility] Department of Pathology and Laboratory Medicine. It has not been cleared or approved by the FDA. The [facility] Department of Pathology and Laboratory Medicine is regulated under CLIA as qualified to perform high-complexity testing. This test is used for clinical purposes. It should not be regarded as investigational or for research. Performed By: #### C ARNAUD, 5763-8 ####[facility] LABCLIA [id number] [place] [address] [place] Comprehensive metabolic 2000 panelon 09-29-2024 Albumin [Mass/Vol] 3.0 g/dL Low 3.9-4.9 [facility] Comment on above: Order Comment: Speci men Type: BLOOD SPECIMENOrdering Facility: [facility] Address: [address] [place] [address] Performed By: #### 1 9123-9, 2777-, 20037-1 ####BROWN LABORATORYCLIA [id number] [address] [place] [facility] ALP [Catalytic activity/Vol] 92 U/L Normal 38-113 [facility] Comment on above: Order Comment: Speci men Type: BLOOD SPECIMENOrdering Facility: [facility] Address: [address] [place] [address] [place] [address] Performed By: #### 1 9123-9, 2777-, 26778-0 ####BROWN LABORATORYCLIA [id number] [address] ALT [Catalytic activity/Vol] 9 U/L Low 10-54 [facility] Comment on above: Order Comment: Speci men Type: BLOOD SPECIMENOrdering Facility: [facility] Address: [address] [place] [id number] Performed By: #### 1 9123-9, 2776-07, 30898-5 ####BROWN LABORATORYCLIA [id number] [place] [address] [place] Anion gap [Moles/Vol] 11 mmol/L Normal 8-15 [facility] Comment on above: Order Comment: Speci men Type: BLOOD SPECIMENOrdering Facility: [facility] Address: [address] [place] [address] Performed By: #### 1 9123-9, 2776-07, 07682-1 ####BROWN LABORATORYCLIA [id number] [place] [address] [place] AST [Catalytic activity/Vol] 14 U/L Normal 14-40 [facility] Comment on above: Order Comment: Speci men Type: BLOOD SPECIMENOrdering Facility: [facility] Address: [address] [place] [address] Performed By: #### 1 9123-9, 2776-07, 31618-4 ####BROWN LABORATORYCLIA [id number] [place] [address] [place] Bilirubin [Mass/Vol] 0.2 mg/dL Normal 0.2-1.3 [facility] Comment on above: Order Comment: Speci men Type: BLOOD SPECIMENOrdering Facility: [facility] Address: [address] [place] [address] Performed By: #### 1 9123-9, 2776-07, 66953-2 ####BROWN LABORATORYCLIA [id number] [place] [id number] [place] Calcium [Mass/Vol] 8.2 mg/dL Low 8.5-10.2 [facility] Comment on above: Order Comment: Speci men Type: BLOOD SPECIMENOrdering Facility: [facility] Address: [address] [place] [address] Performed By: #### 1 9123-9, 2776-07, 54263-9 ####BROWN LABORATORYCLIA [id number] [place] [address] [place] Chloride [Moles/Vol] 104 mmol/L Normal 98-107 [facility] Comment on above: Order Comment: Roldan lemons Type: BLOOD SPECIMENOrdering Facility: [facility] Address: [address] [place] [address] Performed By: #### 1 9123-9, 2777, 74795-9 ####BROWN LABORATORYCLIA [id number] [place] [id number] [place] CO2 [Moles/Vol] 22 mmol/L Normal 22-30 [facility] Comment on above: Order Comment: Roldan lemons Type: BLOOD SPECIMENOrdering Facility: [facility] Address: [address] [place] [address] Performed By: #### 1 9123-9, 2777, 82904-0 ####PINETOP LABORATORYCLIA [id number] [place] [address] [place] Creatinine [Mass/Vol] 0.99 mg/dL Normal 0.73-1.22 [facility] Comment on above: Order Comment: Roldan lemons Type: BLOOD SPECIMENOrdering Facility: [facility] Address: [address] [place] [address] Performed By: #### 1 9123-9, 2777, 79262-7 ####PINETOP LABORATORYCLIA [id number] [address] Creatinine and Glomerular filtration rate.predicted panel (S/P/Bld) 83 mL/min/1.73m??? Normal >=60 [facility] Comment on above: Order Comment: Roldan lemons Type: BLOOD SPECIMENOrdering Facility: [facility] Address: [address] [place] [address] Result Comment: Lissa mated Glomerular Filtration Rate (eGFR) is calculated using the 2020 CKD-EPI creatinine equation. This equation utilizes serum creatinine, sex, and age as parameters. The creatinine assay has traceable calibration to isotope dilution-mass spectrometry. Refer to KDIGO guidelines for clinical interpretation. In patients with unstable renal function, e.g. those with acute kidney injury, the eGFR may not accurately reflect actual GFR. Performed By: #### 1 9123-9, 2777-, 06081-0 ####PINETOP LABORATORYCLIA [id number] [place] [address] [place] Glucose [Mass/Vol] 105 mg/dL High 74-99 [facility] Comment on above: Order Comment: Roldan lemons Type: BLOOD SPECIMENOrdering Facility: [facility] Address: [address] [place] [address] Result Comment: The [place] Diabetes Association (ADA) provides guidance for cutoff values for fasting glucose and random glucose. The ADA defines fasting as no caloric intake for at least 8 hours. Fasting plasma glucose results between 100 to 125 mg/dL indicate increased risk for diabetes (prediabetes).Fasting plasma glucose results greater than or equal to 126 mg/dL meet the criteria for diagnosis of diabetes. In the absence of unequivocal hyperglycemia, results should be confirmed by repeat testing. In a patient with classic symptoms of hyperglycemia or hyperglycemic crisis, random plasma glucose results greater than or equal to 200 mg/dL meet the criteria for diagnosis of diabetes.Reference: Standards of Medical Care in Diabetes 2016, [place] [employer]. Diabetes Care. 2016.39(Suppl 1). Performed By: #### 1 9123-9, 2777-, 13657-0 ####PINETOP LABORATORYCLIA [id number] [place] [id number] [place] Potassium [Moles/Vol] 3.7 mmol/L Normal 3.7-5.1 [facility] Comment on above: Order Comment: Roldan lemons Type: BLOOD SPECIMENOrdering Facility: [facility] Address: [address] [place] [id number] Performed By: #### 1 9123-9, 2777-, 68676-7 ####PINETOP LABORATORYCLIA [id number] [place] [id number] [place] Protein [Mass/Vol] 5.4 g/dL Low 6.3-8.0 [facility] Comment on above: Order Comment: Roldan lemons Type: BLOOD SPECIMENOrdering Facility: [facility] Address: [address] [place] [address] Performed By: #### 1 9123-9, 2777-, 58878-6 ####BROWN LABORATORYCLIA [id number] [place] [address] [place] Sodium [Moles/Vol] 137 mmol/L Normal 136-144 [facility] Comment on above: Order Comment: Speci men Type: BLOOD SPECIMENOrdering Facility: [facility] Address: [address] [place] [address] Performed By: #### 1 9123-9, 27701-27, 74230-5 ####BROWN LABORATORYCLIA [id number] [place] [address] [place] Urea nitrogen [Mass/Vol] 16 mg/dL Normal 9-24 [facility] Comment on above: Order Comment: Speci men Type: BLOOD SPECIMENOrdering Facility: [facility] Address: [address] [place] [address] Performed By: #### 1 9123-9, 27701-27, ####PINETOP LABORATORYCLIA [id number] [place] [address] [place] Magnesium SerPl-ncon 09-29 Magnesium [Mass/Vol] 1.8 mg/dL Normal 1.7-2.3 [facility] Comment on above: Order Comment: Speci men Type: BLOOD SPECIMENOrdering Facility: [facility] Address: [address] [place] [address] Performed By: #### 1 9123-9, 27701-27, ####PINETOP LABORATORYCLIA [id number] [place] [id number] [place] NUTRITIONon 09-29-2024 NUTRITION Normal [facility] Phosphate SerPl-mCncon 09-29 Phosphate [Mass/Vol] 2.9 mg/dL Normal 2.7-4.8 [facility] Comment on above: Order Comment: Speci men Type: BLOOD SPECIMENOrdering Facility: [facility] Address: [address] [place] [address] Performed By: #### 1 9123-9, 2777, 68493-1 ####BROWN LABORATORYCLIA [id number] [place] [address] [place] THERAPY NTon 09-29-2024 THERAPY NT Normal [facility] Zinc SerPl-mCncon 09-29-2024 Zinc [Mass/Vol] 34 ug/dL Low 60-120 [facility] Comment on above: Order Comment: Speci men Type: BLOOD SPECIMENOrdering Facility: [facility] Address: [address] [place] [address] Result Comment: This test was developed, and its performance characteristics determined by the [facility] Department of Pathology and Laboratory Medicine. It has not been cleared or approved by the FDA. The [facility] Department of Pathology and Laboratory Medicine is regulated under CLIA as qualified to perform high-complexity testing. This test is used for clinical purposes. It should not be regarded as investigational or for research. Performed By: #### C ARNAUD, 5763-8 ####[facility] LABCLIA [id number] [place] [address] [place] Ammonia Plas-sCncon 09-29-19 25 Ammonia (P) [Moles/Vol] 15 umol/L Low 16-60 [facility] Comment on above: Order Comment: Speci men Type: BLOOD SPECIMENOrdering Facility: [facility] Address: [address] [place] [address] Performed By: #### 1 6362-6 ####BROWN LABORATORYCLIA [id number] [place] [address] [place] CBC panel Auto (Bld)on 09-28 Erythrocyte distribution width (RBC) [Ratio] 13.6 % Normal 11.5-15.0 [facility] Comment on above: Order Comment: Speci men Type: BLOOD SPECIMENOrdering Facility: [facility] Address: [address] [place] [address] Performed By: #### 5 8410-2 ####BROWN LABORATORYCLIA [id number] [place] [address] [place] Hematocrit (Bld) [Volume fraction] 34.8 % Low 39.0-51.0 [facility] Comment on above: Order Comment: Speci men Type: BLOOD SPECIMENOrdering Facility: [facility] Address: [address] [place] [address] Performed By: #### 5 8410-2 ####BROWN LABORATORYCLIA [id number] [address] Hemoglobin (Bld) [Mass/Vol] 11.3 g/dL Low 13.0-17.0 [facility] Comment on above: Order Comment: Speci men Type: BLOOD SPECIMENOrdering Facility: [facility] Address: [address] [place] [address] Performed By: #### 5 8410-2 ####BROWN LABORATORYCLIA [id number] [address] MCH (RBC) [Entitic mass] 28.9 pg Normal 26.0-34.0 [facility] Comment on above: Order Comment: Speci men Type: BLOOD SPECIMENOrdering Facility: [facility] Address: [address] [place] [address] Performed By: #### 5 8410-2 ####BROWN LABORATORYCLIA [id number] [address] MCHC (RBC) [Mass/Vol] 32.5 g/dL Normal 30.5-36.0 [facility] Comment on above: Order Comment: Speci men Type: BLOOD SPECIMENOrdering Facility: [facility] Address: [address] [place] [address] Performed By: #### 5 8410-2 ####BROWN LABORATORYCLIA [id number] [address] MCV (RBC) [Entitic vol] 89.0 fL Normal 80.0-100.0 [facility] Comment on above: Order Comment: Speci men Type: BLOOD SPECIMENOrdering Facility: [facility] Address: [address] [place] [address] Performed By: #### 5 8410-2 ####BROWN LABORATORYCLIA [id number] [address] Nucleated RBC (Bld) [#/Vol] 10*3/uL Normal <0.01 [facility] Comment on above: Order Comment: Speci men Type: BLOOD SPECIMENOrdering Facility: [facility] Address: [address] [place] [address] Performed By: #### 5 8410-2 ####BROWN LABORATORYCLIA [id number] [place] [address] [place] Platelet mean volume (Bld) [Entitic vol] 10.6 fL Normal 9.0-12.7 [facility] Comment on above: Order Comment: Speci men Type: BLOOD SPECIMENOrdering Facility: [facility] Address: [address] [place] [address] Performed By: #### 5 8410-2 ####BROWN LABORATORYCLIA [id number] [place] [address] [place] Platelets (Bld) [#/Vol] 203 10*3/uL Normal 150-400 [facility] Comment on above: Order Comment: Speci men Type: BLOOD SPECIMENOrdering Facility: [facility] Address: [address] [place] [address] Performed By: #### 5 8410-2 ####BROWN LABORATORYCLIA [id number] [place] [address] [place] RBC (Bld) [#/Vol] 3.91 10*6/uL Low 4.20-6.00 [facility] Comment on above: Order Comment: Speci men Type: BLOOD SPECIMENOrdering Facility: [facility] Address: [address] [place] [address] Performed By: #### 5 8410-2 ####BROWN LABORATORYCLIA [id number] [place] [id number] [place] WBC (Bld) [#/Vol] 5.99 10*3/uL Normal 3.70-11.00 [facility] Comment on above: Order Comment: Speci men Type: BLOOD SPECIMENOrdering Facility: [facility] Address: [address] [place] [address] Performed By: #### 5 8410-2 ####BROWN LABORATORYCLIA [id number] [place] [address] [place] Comprehensive metabolic 2000 panelon 09-28-2024 Albumin [Mass/Vol] 3.2 g/dL Low 3.9-4.9 [facility] Comment on above: Order Comment: Speci men Type: BLOOD SPECIMENOrdering Facility: [facility] Address: [address] [place] [address] Performed By: #### 2 4323-8 ####BROWN LABORATORYCLIA [id number] [address] [place] ALP [Catalytic activity/Vol] 106 U/L Normal 38-113 [facility] Comment on above: Order Comment: Speci men Type: BLOOD SPECIMENOrdering Facility: [facility] Address: [address] [place] [address] Performed By: #### 2 4323-8 ####BROWN LABORATORYCLIA [id number] [address] ALT [Catalytic activity/Vol] 10 U/L Normal 10-54 [facility] Comment on above: Order Comment: Speci men Type: BLOOD SPECIMENOrdering Facility: [facility] Address: [address] [place] [address] Performed By: #### 2 4323-8 ####BROWN LABORATORYCLIA [id number] [address] Anion gap [Moles/Vol] 13 mmol/L Normal 8-15 [facility] Comment on above: Order Comment: Speci men Type: BLOOD SPECIMENOrdering Facility: [facility] Address: [address] [place] [address] Performed By: #### 2 4323-8 ####BROWN LABORATORYCLIA [id number] [address] AST [Catalytic activity/Vol] 14 U/L Normal 14-40 [facility] Comment on above: Order Comment: Speci men Type: BLOOD SPECIMENOrdering Facility: [facility] Address: [address] [place] [address] Performed By: #### 2 4323-8 ####BROWN LABORATORYCLIA [id number] [place] [address] [place] Bilirubin [Mass/Vol] 0.2 mg/dL Normal 0.2-1.3 [facility] Comment on above: Order Comment: Speci men Type: BLOOD SPECIMENOrdering Facility: [facility] Address: [address] [place] [address] Performed By: #### 2 4323-8 ####BROWN LABORATORYCLIA [id number] [place] [address] [place] Calcium [Mass/Vol] 8.6 mg/dL Normal 8.5-10.2 [facility] Comment on above: Order Comment: Speci men Type: BLOOD SPECIMENOrdering Facility: [facility] Address: [address] [place] [address] Performed By: #### 2 4323-8 ####BROWN LABORATORYCLIA [id number] [place] [address] [place] Chloride [Moles/Vol] 100 mmol/L Normal 98-107 [facility] Comment on above: Order Comment: Speci men Type: BLOOD SPECIMENOrdering Facility: [facility] Address: [address] [place] [address] Performed By: #### 2 4323-8 ####BROWN LABORATORYCLIA [id number] [place] [address] [place] CO2 [Moles/Vol] 22 mmol/L Normal 22-30 [facility] Comment on above: Order Comment: Speci men Type: BLOOD SPECIMENOrdering Facility: [facility] Address: [address] [place] [address] Performed By: #### 2 4323-8 ####BROWN LABORATORYCLIA [id number] [place] [address] [place] Creatinine [Mass/Vol] 1.16 mg/dL Normal 0.73-1.22 [facility] Comment on above: Order Comment: Speci men Type: BLOOD SPECIMENOrdering Facility: [facility] Address: [address] [place] [address] Performed By: #### 2 4323-8 ####BROWN LABORATORYCLIA [id number] [place] [address] [place] Creatinine and Glomerular filtration rate.predicted panel (S/P/Bld) 69 mL/min/1.73m??? Normal >=60 [facility] Comment on above: Order Comment: Roldan lemons Type: BLOOD SPECIMENOrdering Facility: [facility] Address: [address] [place] [address] Result Comment: Lissa mated Glomerular Filtration Rate (eGFR) is calculated using the 2020 CKD-EPI creatinine equation. This equation utilizes serum creatinine, sex, and age as parameters. The creatinine assay has traceable calibration to isotope dilution-mass spectrometry. Refer to KDIGO guidelines for clinical interpretation. In patients with unstable renal function, e.g. those with acute kidney injury, the eGFR may not accurately reflect actual GFR. Performed By: #### 2 4323-8 ####BROWN LABORATORYCLIA [id number] [place] [address] [place] Glucose [Mass/Vol] 96 mg/dL Normal 74-99 [facility] Comment on above: Order Comment: Roldan lemons Type: BLOOD SPECIMENOrdering Facility: [facility] Address: [address] [place] [address] Result Comment: The [place] Diabetes Association (ADA) provides guidance for cutoff values for fasting glucose and random glucose. The ADA defines fasting as no caloric intake for at least 8 hours. Fasting plasma glucose results between 100 to 125 mg/dL indicate increased risk for diabetes (prediabetes).Fasting plasma glucose results greater than or equal to 126 mg/dL meet the criteria for diagnosis of diabetes. In the absence of unequivocal hyperglycemia, results should be confirmed by repeat testing. In a patient with classic symptoms of hyperglycemia or hyperglycemic crisis, random plasma glucose results greater than or equal to 200 mg/dL meet the criteria for diagnosis of diabetes.Reference: Standards of Medical Care in Diabetes 2016, [place] [employer]. Diabetes Care. 2016.39(Suppl 1). Performed By: #### 2 4323-8 ####PINETOP LABORATORYCLIA [id number] [place] [id number] [place] Potassium [Moles/Vol] 3.5 mmol/L Low 3.7-5.1 [facility] Comment on above: Order Comment: Roldan lemons Type: BLOOD SPECIMENOrdering Facility: [facility] Address: [address] [place] [address] Performed By: #### 2 4323-8 ####BROWN LABORATORYCLIA [id number] [address] Protein [Mass/Vol] 5.7 g/dL Low 6.3-8.0 [facility] Comment on above: Order Comment: Speci men Type: BLOOD SPECIMENOrdering Facility: [facility] Address: [address] [place] [address] Performed By: #### 2 4323-8 ####BROWN LABORATORYCLIA [id number] [address] Sodium [Moles/Vol] 135 mmol/L Low 136-144 [facility] Comment on above: Order Comment: Speci men Type: BLOOD SPECIMENOrdering Facility: [facility] Address: [address] [place] [address] Performed By: #### 2 4323-8 ####BROWN LABORATORYCLIA [id number] [address] Urea nitrogen [Mass/Vol] 23 mg/dL Normal 9-24 [facility] Comment on above: Order Comment: Speci men Type: BLOOD SPECIMENOrdering Facility: [facility] Address: [address] [place] [address] Performed By: #### 2 4323-8 ####BROWN LABORATORYCLIA [id number] [address] DIGOXIN/LANOXINon 09-28-2024 Digoxin [Mass/Vol] 0.4 ng/mL Low 0.6-1.2 [facility] Comment on above: Order Comment: Speci men Type: BLOOD SPECIMENOrdering Facility: [facility] Address: [address] [place] [address] Result Comment: Prov ided therapeutic concentrations are based on the 2008 ESC Guidelines for the Diagnosis and Treatment of Acute and Chronic Heart Failure.Reference ranges and high/low indicator flags are provided as general guidelines only. The treating physician must determine appropriate target levels/dosing based on the specific clinical situation. Performed By: #### D IG ####BROWN LABORATORYCLIA [id number] [address] CBC W Auto Differential pane l (Bld)on 09-27-2024 Basophils (Bld) [#/Vol] 0.03 10*3/uL Normal <0.11 [facility] Comment on above: Order Comment: Speci men Type: BLOOD SPECIMENOrdering Facility: [facility] Address: [address] [place] [address] Performed By: #### 5 7021-8 ####BROWN LABORATORYCLIA [id number] [place] [address] [place] Basophils/100 WBC (Bld) 0.3 % Normal [facility] Comment on above: Order Comment: Speci men Type: BLOOD SPECIMENOrdering Facility: [facility] Address: [address] [place] [address] Performed By: #### 5 7021-8 ####BROWN LABORATORYCLIA [id number] [address] Differential cell count method Nom (Bld) Auto Normal [facility] Comment on above: Order Comment: Speci men Type: BLOOD SPECIMENOrdering Facility: [facility] Address: [address] [place] [address] Performed By: #### 5 7021-8 ####BROWN LABORATORYCLIA [id number] [place] [address] [place] Eosinophils (Bld) [#/Vol] 0.11 10*3/uL Normal <0.46 [facility] Comment on above: Order Comment: Speci men Type: BLOOD SPECIMENOrdering Facility: [facility] Address: [address] [place] [address] Performed By: #### 5 7021-8 ####BROWN LABORATORYCLIA [id number] [address] [place] [facility] Eosinophils/100 WBC (Bld) 1.2 % Normal [facility] Comment on above: Order Comment: Speci men Type: BLOOD SPECIMENOrdering Facility: [facility] Address: [address] [place] [address] Performed By: #### 5 7021-8 ####BROWN LABORATORYCLIA [id number] [address] Erythrocyte distribution width (RBC) [Ratio] 13.6 % Normal 11.5-15.0 [facility] Comment on above: Order Comment: Speci men Type: BLOOD SPECIMENOrdering Facility: [facility] Address: [address] [place] [address] Performed By: #### 5 7021-8 ####BROWN LABORATORYCLIA [id number] [address] [place] Hematocrit (Bld) [Volume fraction] 36.6 % Low 39.0-51.0 [facility] Comment on above: Order Comment: Speci men Type: BLOOD SPECIMENOrdering Facility: [facility] Address: [address] [place] [address] Performed By: #### 5 7021-8 ####BROWN LABORATORYCLIA [id number] [address] [place] Hemoglobin (Bld) [Mass/Vol] 11.7 g/dL Low 13.0-17.0 [facility] Comment on above: Order Comment: Speci men Type: BLOOD SPECIMENOrdering Facility: [facility] Address: [address] [place] [address] Performed By: #### 5 7021-8 ####BROWN LABORATORYCLIA [id number] [address] [place] Immature granulocytes (Bld) [#/Vol] 0.04 10*3/uL Normal <0.10 [facility] Comment on above: Order Comment: Speci men Type: BLOOD SPECIMENOrdering Facility: [facility] Address: [address] [place] [address] Performed By: #### 5 7021-8 ####BROWN LABORATORYCLIA [id number] [address] Immature granulocytes/100 WBC (Bld) 0.5 % Normal [facility] Comment on above: Order Comment: Speci men Type: BLOOD SPECIMENOrdering Facility: [facility] Address: [address] [place] [address] Performed By: #### 5 7021-8 ####BROWN LABORATORYCLIA [id number] [address] Lymphocytes (Bld) [#/Vol] 0.50 10*3/uL Low 1.00-4.00 [facility] Comment on above: Order Comment: Speci men Type: BLOOD SPECIMENOrdering Facility: [facility] Address: [address] [place] [address] Performed By: #### 5 7021-8 ####BROWN LABORATORYCLIA [id number] [address] Lymphocytes/100 WBC (Bld) 5.6 % Normal [facility] Comment on above: Order Comment: Speci men Type: BLOOD SPECIMENOrdering Facility: [facility] Address: [address] [place] [address] Performed By: #### 5 7021-8 ####BROWN LABORATORYCLIA [id number] [address] MCH (RBC) [Entitic mass] 28.7 pg Normal 26.0-34.0 [facility] Comment on above: Order Comment: Speci men Type: BLOOD SPECIMENOrdering Facility: [facility] Address: [address] [place] [address] Performed By: #### 5 7021-8 ####BROWN LABORATORYCLIA [id number] [address] MCHC (RBC) [Mass/Vol] 32.0 g/dL Normal 30.5-36.0 [facility] Comment on above: Order Comment: Speci men Type: BLOOD SPECIMENOrdering Facility: [facility] Address: [address] [place] [address] Performed By: #### 5 7021-8 ####BROWN LABORATORYCLIA [id number] [address] MCV (RBC) [Entitic vol] 89.9 fL Normal 80.0-100.0 [facility] Comment on above: Order Comment: Speci men Type: BLOOD SPECIMENOrdering Facility: [facility] Address: [address] [place] [address] Performed By: #### 5 7021-8 ####BROWN LABORATORYCLIA [id number] [place] [address] [place] Monocytes (Bld) [#/Vol] 0.64 10*3/uL Normal <0.87 [facility] Comment on above: Order Comment: Speci men Type: BLOOD SPECIMENOrdering Facility: [facility] Address: [address] [place] [address] Performed By: #### 5 7021-8 ####BROWN LABORATORYCLIA [id number] [address] Monocytes/100 WBC (Bld) 7.2 % Normal [facility] Comment on above: Order Comment: Speci men Type: BLOOD SPECIMENOrdering Facility: [facility] Address: [address] [place] [address] Performed By: #### 5 7021-8 ####BROWN LABORATORYCLIA [id number] [address] [place] Neutrophils (Bld) [#/Vol] 7.56 10*3/uL High 1.45-7.50 [facility] Comment on above: Order Comment: Speci men Type: BLOOD SPECIMENOrdering Facility: [facility] Address: [address] [place] [address] Performed By: #### 5 7021-8 ####BROWN LABORATORYCLIA [id number] [address] [place] Neutrophils/100 WBC (Bld) 85.2 % Normal [facility] Comment on above: Order Comment: Speci men Type: BLOOD SPECIMENOrdering Facility: [facility] Address: [address] [place] [address] Performed By: #### 5 7021-8 ####BROWN LABORATORYCLIA [id number] [place] [address] [place] Nucleated RBC (Bld) [#/Vol] 10*3/uL Normal <0.01 [facility] Comment on above: Order Comment: Speci men Type: BLOOD SPECIMENOrdering Facility: [facility] Address: [address] [place] [address] Performed By: #### 5 7021-8 ####BROWN LABORATORYCLIA [id number] [address] [place] Nucleated RBC/100 WBC (Bld) [Ratio] 0.0 /100 WBC Normal [facility] Comment on above: Order Comment: Speci men Type: BLOOD SPECIMENOrdering Facility: [facility] Address: [address] [place] [address] Performed By: #### 5 7021-8 ####BROWN LABORATORYCLIA [id number] [place] [address] [place] Platelet mean volume (Bld) [Entitic vol] Normal [facility] Comment on above: Order Comment: Speci men Type: BLOOD SPECIMENOrdering Facility: [facility] Address: [address] [place] [address] Result Comment: Unab le to Report. Performed By: #### 5 7021-8 ####BROWN LABORATORYCLIA [id number] [address] [place] Platelets (Bld) [#/Vol] 226 10*3/uL Normal 150-400 [facility] Comment on above: Order Comment: Speci men Type: BLOOD SPECIMENOrdering Facility: [facility] Address: [address] [place] [address] Result Comment: No c lot detected. Performed By: #### 5 7021-8 ####BROWN LABORATORYCLIA [id number] [address] [place] RBC (Bld) [#/Vol] 4.07 10*6/uL Low 4.20-6.00 [facility] Comment on above: Order Comment: Speci men Type: BLOOD SPECIMENOrdering Facility: [facility] Address: [address] [place] [address] Performed By: #### 5 7021-8 ####BROWN LABORATORYCLIA [id number] [address] [place] WBC (Bld) [#/Vol] 8.88 10*3/uL Normal 3.70-11.00 [facility] Comment on above: Order Comment: Speci men Type: BLOOD SPECIMENOrdering Facility: [facility] Address: [address] [place] [address] Performed By: #### 5 7021-8 ####BROWN LABORATORYCLIA [id number] [place] [address] [place] Comprehensive metabolic 2000 panelon 09-27-2024 Albumin [Mass/Vol] 3.5 g/dL Low 3.9-4.9 [facility] Comment on above: Order Comment: Speci men Type: BLOOD SPECIMENOrdering Facility: [facility] Address: [address] [place] [address] Performed By: #### 2 4323-8 ####BROWN LABORATORYCLIA [id number] [place] [address] [place] ALP [Catalytic activity/Vol] 120 U/L High 38-113 [facility] Comment on above: Order Comment: Speci men Type: BLOOD SPECIMENOrdering Facility: [facility] Address: [address] [place] [address] Performed By: #### 2 4323-8 ####BROWN LABORATORYCLIA [id number] [place] [address] [place] ALT [Catalytic activity/Vol] 12 U/L Normal 10-54 [facility] Comment on above: Order Comment: Speci men Type: BLOOD SPECIMENOrdering Facility: [facility] Address: [address] [place] [address] Performed By: #### 2 4323-8 ####BROWN LABORATORYCLIA [id number] [place] [address] [place] Anion gap [Moles/Vol] 14 mmol/L Normal 8-15 [facility] Comment on above: Order Comment: Speci men Type: BLOOD SPECIMENOrdering Facility: [facility] Address: [address] [place] [address] Performed By: #### 2 4323-8 ####BROWN LABORATORYCLIA [id number] [place] [address] [place] AST [Catalytic activity/Vol] 23 U/L Normal 14-40 [facility] Comment on above: Order Comment: Speci men Type: BLOOD SPECIMENOrdering Facility: [facility] Address: [address] [place], [place] [address] [address] Performed By: #### 2 4323-8 ####BROWN LABORATORYCLIA [id number] [place] [address] [place] Bilirubin [Mass/Vol] 0.5 mg/dL Normal 0.2-1.3 [facility] Comment on above: Order Comment: Speci men Type: BLOOD SPECIMENOrdering Facility: [facility] Address: [address] [place] [address] Performed By: #### 2 4323-8 ####BROWN LABORATORYCLIA [id number] [place] [address] [place] Calcium [Mass/Vol] 8.9 mg/dL Normal 8.5-10.2 [facility] Comment on above: Order Comment: Speci men Type: BLOOD SPECIMENOrdering Facility: [facility] Address: [address] [place] [address] Performed By: #### 2 4323-8 ####BROWN LABORATORYCLIA [id number] [place] [address] [place] Chloride [Moles/Vol] 101 mmol/L Normal 98-107 [facility] Comment on above: Order Comment: Speci men Type: BLOOD SPECIMENOrdering Facility: [facility] Address: [address] [place] [address] [place] [address] Performed By: #### 2 4323-8 ####BROWN LABORATORYCLIA [id number] [place] [address] [place] CO2 [Moles/Vol] 19 mmol/L Low 22-30 [facility] Comment on above: Order Comment: Speci men Type: BLOOD SPECIMENOrdering Facility: [facility] Address: [address] [place] [address] Performed By: #### 2 4323-8 ####BROWN LABORATORYCLIA [id number] [place] [address] [place] Creatinine [Mass/Vol] 1.13 mg/dL Normal 0.73-1.22 [facility] Comment on above: Order Comment: Speci men Type: BLOOD SPECIMENOrdering Facility: [facility] Address: [address] [place] [address] Performed By: #### 2 4323-8 ####PINETOP LABORATORYCLIA [id number] [place] [address] [place] [facility] Creatinine and Glomerular filtration rate.predicted panel (S/P/Bld) 71 mL/min/1.73m??? Normal >=60 [facility] Comment on above: Order Comment: Roldan lemons Type: BLOOD SPECIMENOrdering Facility: [facility] Address: [address] [place] [address] Result Comment: Lissa mated Glomerular Filtration Rate (eGFR) is calculated using the 2020 CKD-EPI creatinine equation. This equation utilizes serum creatinine, sex, and age as parameters. The creatinine assay has traceable calibration to isotope dilution-mass spectrometry. Refer to KDIGO guidelines for clinical interpretation. In patients with unstable renal function, e.g. those with acute kidney injury, the eGFR may not accurately reflect actual GFR. Performed By: #### 2 4323-8 ####BROWN LABORATORYCLIA [id number] [place] [address] [place] Glucose [Mass/Vol] 66 mg/dL Low 74-99 [facility] Comment on above: Order Comment: Roldan lemons Type: BLOOD SPECIMENOrdering Facility: [facility] Address: [address] [place] [address] Result Comment: The [place] Diabetes [employer] (ADA) provides guidance for cutoff values for fasting glucose and random glucose. The ADA defines fasting as no caloric intake for at least 8 hours. Fasting plasma glucose results between 100 to 125 mg/dL indicate increased risk for diabetes (prediabetes).Fasting plasma glucose results greater than or equal to 126 mg/dL meet the criteria for diagnosis of diabetes. In the absence of unequivocal hyperglycemia, results should be confirmed by repeat testing. In a patient with classic symptoms of hyperglycemia or hyperglycemic crisis, random plasma glucose results greater than or equal to 200 mg/dL meet the criteria for diagnosis of diabetes.Reference: Standards of Medical Care in Diabetes 2016, [place] [employer]. Diabetes Care. 2016.39(Suppl 1). Performed By: #### 2 4323-8 ####PINETOP LABORATORYCLIA [id number] [place] [id number] [place] Potassium [Moles/Vol] 4.0 mmol/L Normal 3.7-5.1 [facility] Comment on above: Order Comment: Speci men Type: BLOOD SPECIMENOrdering Facility: [facility] Address: [address] [place] [address] Performed By: #### 2 4323-8 ####BROWN LABORATORYCLIA [id number] [place] [address] [place] Protein [Mass/Vol] 6.4 g/dL Normal 6.3-8.0 [facility] Comment on above: Order Comment: Speci men Type: BLOOD SPECIMENOrdering Facility: [facility] Address: [address] [place] [address] Performed By: #### 2 4323-8 ####BROWN LABORATORYCLIA [id number] [place] [address] [place] Sodium [Moles/Vol] 134 mmol/L Low 136-144 [facility] Comment on above: Order Comment: Speci men Type: BLOOD SPECIMENOrdering Facility: [facility] Address: [address] [place] [address] Performed By: #### 2 4323-8 ####BROWN LABORATORYCLIA [id number] [place] [address] [place] Urea nitrogen [Mass/Vol] 26 mg/dL High 9-24 [facility] Comment on above: Order Comment: Speci men Type: BLOOD SPECIMENOrdering Facility: [facility] Address: [address] [place] [address] Performed By: #### 2 4323-8 ####BROWN LABORATORYCLIA [id number] [place] [address] [place] Magnesium SerPl-mCncon 09-27 Magnesium [Mass/Vol] 1.9 mg/dL Normal 1.7-2.3 [facility] Comment on above: Order Comment: Speci men Type: BLOOD SPECIMENOrdering Facility: [facility] Address: [address] [place] [address] Performed By: #### 1 9123-9 ####BROWN LABORATORYCLIA [id number] [place] [address] [place] Phosphate SerPl-mCncon 09-27 Phosphate [Mass/Vol] 2.9 mg/dL Normal 2.7-4.8 [facility] Comment on above: Order Comment: Speci men Type: BLOOD SPECIMENOrdering Facility: [facility] Address: [address] [place] [address] Performed By: #### 2 777-1 ####PINETOP LABORATORYCLIA [id number] [place] [id number] [place] THERAPY NTon 09-27-2024 THERAPY NT Normal [facility] Basic metabolic 2000 panelon 09-26-2024 Anion gap [Moles/Vol] 15 mmol/L Normal 8-15 [facility] Comment on above: Order Comment: Speci men Type: BLOOD SPECIMENOrdering Facility: [facility] Address: [address] [place] [address] Performed By: #### 1 9123-9, 42708-4, 2777-1, 70387-0 ####PINETOP LABORATORYCLIA [id number] [place] [address] [place] Calcium [Mass/Vol] 9.0 mg/dL Normal 8.5-10.2 [facility] Comment on above: Order Comment: Speci men Type: BLOOD SPECIMENOrdering Facility: [facility] Address: [address] [place] [address] Performed By: #### 1 9123-9, 19853-9, 2777-1, 16399-0 ####PINETOP LABORATORYCLIA [id number] [place] [id number] [place] Chloride [Moles/Vol] 102 mmol/L Normal 98-107 [facility] Comment on above: Order Comment: Speci men Type: BLOOD SPECIMENOrdering Facility: [facility] Address: [address] [place] [address] Performed By: #### 1 9123-9, 27019-0, 2777-1, 33603-9 ####PINETOP LABORATORYCLIA [id number] [place] [id number] [place] CO2 [Moles/Vol] 20 mmol/L Low 22-30 [facility] Comment on above: Order Comment: Roldan lemons Type: BLOOD SPECIMENOrdering Facility: [facility] Address: [address] [place] [address] Performed By: #### 1 9123-9, 32855-3, 2777-1, 65166-1 ####PINETOP LABORATORYCLIA [id number] [place] [address] [place] Creatinine [Mass/Vol] 1.30 mg/dL High 0.73-1.22 [facility] Comment on above: Order Comment: Roldan men Type: BLOOD SPECIMENOrdering Facility: [facility] Address: [address] [place] [address] Performed By: #### 1 9123-9, 99437-4, 2777-1, 19137-2 ####PINETOP LABORATORYCLIA [id number] [address] OF [facility] Creatinine and Glomerular filtration rate.predicted panel (S/P/Bld) 60 mL/min/1.73m??? Normal >=60 [facility] Comment on above: Order Comment: Jesus cristo Type: BLOOD SPECIMENOrdering Facility: [facility] Address: [address] [place] [address] Result Comment: Lissa mated Glomerular Filtration Rate (eGFR) is calculated using the 2020 CKD-EPI creatinine equation. This equation utilizes serum creatinine, sex, and age as parameters. The creatinine assay has traceable calibration to isotope dilution-mass spectrometry. Refer to KDIGO guidelines for clinical interpretation. In patients with unstable renal function, e.g. those with acute kidney injury, the eGFR may not accurately reflect actual GFR. Performed By: #### 1 9123-9, 10464-7, 2777-1, 23205-1 ####PINETOP LABORATORYCLIA [id number] [place] [id number] [place] Glucose [Mass/Vol] 75 mg/dL Normal 74-99 [facility] Comment on above: Order Comment: Roldan cristo Type: BLOOD SPECIMENOrdering Facility: [facility] Address: [address] [place] [address] Result Comment: The [place] Diabetes Association (ADA) provides guidance for cutoff values for fasting glucose and random glucose. The ADA defines fasting as no caloric intake for at least 8 hours. Fasting plasma glucose results between 100 to 125 mg/dL indicate increased risk for diabetes (prediabetes).Fasting plasma glucose results greater than or equal to 126 mg/dL meet the criteria for diagnosis of diabetes. In the absence of unequivocal hyperglycemia, results should be confirmed by repeat testing. In a patient with classic symptoms of hyperglycemia or hyperglycemic crisis, random plasma glucose results greater than or equal to 200 mg/dL meet the criteria for diagnosis of diabetes.Reference: Standards of Medical Care in Diabetes 2016, [place] [employer]. Diabetes Care. 2016.39(Suppl 1). Performed By: #### 1 9123-9, 41666-2, 2777-1, 02801-6 ####BROWN LABORATORYCLIA [id number] [place] [address] [place] Potassium [Moles/Vol] 4.8 mmol/L Normal 3.7-5.1 [facility] Comment on above: Order Comment: Roldan lemons Type: BLOOD SPECIMENOrdering Facility: [facility] Address: [address] [place] [address] Performed By: #### 1 9123-9, 66133-9, 2777-1, 15713-9 ####BROWN LABORATORYCLIA [id number] [place] [address] [place] Sodium [Moles/Vol] 137 mmol/L Normal 136-144 [facility] Comment on above: Order Comment: Roldan lemons Type: BLOOD SPECIMENOrdering Facility: [facility] Address: [address] [place] [address] Performed By: #### 1 9123-9, 61438-4, 2777-1, 10068-9 ####BROWN LABORATORYCLIA [id number] [place] [id number] [place] Urea nitrogen [Mass/Vol] 31 mg/dL High 9-24 [facility] Comment on above: Order Comment: Roldan men Type: BLOOD SPECIMENOrdering Facility: [facility] Address: [address] [place] [address] Performed By: #### 1 9123-9, 11237-4, 2777-1, 33757-1 ####BROWN LABORATORYCLIA [id number] [place] [address] [place] CASE MANAGEMon 09-26-2024 CASE MANAGEM Normal [facility] CBC W Auto Differential pane l (Bld)on 09-26-2024 Basophils (Bld) [#/Vol] 0.03 10*3/uL Normal <0.11 [facility] Comment on above: Order Comment: Speci men Type: BLOOD SPECIMENOrdering Facility: [facility] Address: [address] [place] [address] Performed By: #### 5 7021-8 ####BROWN LABORATORYCLIA [id number] [address] [place] Basophils/100 WBC (Bld) 0.4 % Normal [facility] Comment on above: Order Comment: Speci men Type: BLOOD SPECIMENOrdering Facility: [facility] Address: [address] [place] [address] Performed By: #### 5 7021-8 ####BROWN LABORATORYCLIA [id number] [address] [place] Differential cell count method Nom (Bld) Auto Normal [facility] Comment on above: Order Comment: Speci men Type: BLOOD SPECIMENOrdering Facility: [facility] Address: [address] [place] [address] Performed By: #### 5 7021-8 ####BROWN LABORATORYCLIA [id number] [place] [address] [place] Eosinophils (Bld) [#/Vol] 0.09 10*3/uL Normal <0.46 [facility] Comment on above: Order Comment: Speci men Type: BLOOD SPECIMENOrdering Facility: [facility] Address: [address] [place] [address] Performed By: #### 5 7021-8 ####BROWN LABORATORYCLIA [id number] [address] [place] Eosinophils/100 WBC (Bld) 1.3 % Normal [facility] Comment on above: Order Comment: Speci men Type: BLOOD SPECIMENOrdering Facility: [facility] Address: [address] [place] [address] Performed By: #### 5 7021-8 ####BROWN LABORATORYCLIA [id number] [address] [place] Erythrocyte distribution width (RBC) [Ratio] 13.6 % Normal 11.5-15.0 [facility] Comment on above: Order Comment: Speci men Type: BLOOD SPECIMENOrdering Facility: [facility] Address: [address] [place] [address] Performed By: #### 5 7021-8 ####BROWN LABORATORYCLIA [id number] [address] [place] Hematocrit (Bld) [Volume fraction] 36.5 % Low 39.0-51.0 [facility] Comment on above: Order Comment: Speci men Type: BLOOD SPECIMENOrdering Facility: [facility] Address: [address] [place] [address] Performed By: #### 5 7021-8 ####BROWN LABORATORYCLIA [id number] [address] [place] Hemoglobin (Bld) [Mass/Vol] 11.5 g/dL Low 13.0-17.0 [facility] Comment on above: Order Comment: Speci men Type: BLOOD SPECIMENOrdering Facility: [facility] Address: [address] [place] [address] Performed By: #### 5 7021-8 ####BROWN LABORATORYCLIA [id number] [address] [place] Immature granulocytes (Bld) [#/Vol] 10*3/uL Normal <0.10 [facility] Comment on above: Order Comment: Speci men Type: BLOOD SPECIMENOrdering Facility: [facility] Address: [address] [place] [address] Performed By: #### 5 7021-8 ####BROWN LABORATORYCLIA [id number] [address] Immature granulocytes/100 WBC (Bld) 0.3 % Normal [facility] Comment on above: Order Comment: Speci men Type: BLOOD SPECIMENOrdering Facility: [facility] Address: [address] [place] [address] Performed By: #### 5 7021-8 ####BROWN LABORATORYCLIA [id number] [address] [place] Lymphocytes (Bld) [#/Vol] 0.64 10*3/uL Low 1.00-4.00 [facility] Comment on above: Order Comment: Speci men Type: BLOOD SPECIMENOrdering Facility: [facility] Address: [address] [place] [address] Performed By: #### 5 7021-8 ####BROWN LABORATORYCLIA [id number] [address] Lymphocytes/100 WBC (Bld) 8.9 % Normal [facility] Comment on above: Order Comment: Speci men Type: BLOOD SPECIMENOrdering Facility: [facility] Address: [address] [place] [address] Performed By: #### 5 7021-8 ####BROWN LABORATORYCLIA [id number] [address] MCH (RBC) [Entitic mass] 28.6 pg Normal 26.0-34.0 [facility] Comment on above: Order Comment: Speci men Type: BLOOD SPECIMENOrdering Facility: [facility] Address: [address] [place] [address] Performed By: #### 5 7021-8 ####BROWN LABORATORYCLIA [id number] [address] MCHC (RBC) [Mass/Vol] 31.5 g/dL Normal 30.5-36.0 [facility] Comment on above: Order Comment: Speci men Type: BLOOD SPECIMENOrdering Facility: [facility] Address: [address] [place] [address] Performed By: #### 5 7021-8 ####BROWN LABORATORYCLIA [id number] [address] MCV (RBC) [Entitic vol] 90.8 fL Normal 80.0-100.0 [facility] Comment on above: Order Comment: Speci men Type: BLOOD SPECIMENOrdering Facility: [facility] Address: [address] [place] [address] Performed By: #### 5 7021-8 ####BROWN LABORATORYCLIA [id number] [place] [address] [place] Monocytes (Bld) [#/Vol] 0.81 10*3/uL Normal <0.87 [facility] Comment on above: Order Comment: Speci men Type: BLOOD SPECIMENOrdering Facility: [facility] Address: [address] [place] [address] Performed By: #### 5 7021-8 ####BROWN LABORATORYCLIA [id number] [address] [place] Monocytes/100 WBC (Bld) 11.3 % Normal [facility] Comment on above: Order Comment: Speci men Type: BLOOD SPECIMENOrdering Facility: [facility] Address: [address] [place] [address] Performed By: #### 5 7021-8 ####BROWN LABORATORYCLIA [id number] [place] [address] [place] Neutrophils (Bld) [#/Vol] 5.58 10*3/uL Normal 1.45-7.50 [facility] Comment on above: Order Comment: Speci men Type: BLOOD SPECIMENOrdering Facility: [facility] Address: [address] [place] [address] Performed By: #### 5 7021-8 ####BROWN LABORATORYCLIA [id number] [place] [address] [place] Neutrophils/100 WBC (Bld) 77.8 % Normal [facility] Comment on above: Order Comment: Speci men Type: BLOOD SPECIMENOrdering Facility: [facility] Address: [address] [place] [address] Performed By: #### 5 7021-8 ####BROWN LABORATORYCLIA [id number] [place] [address] [place] Nucleated RBC (Bld) [#/Vol] 10*3/uL Normal <0.01 [facility] Comment on above: Order Comment: Speci men Type: BLOOD SPECIMENOrdering Facility: [facility] Address: [address] [place] [address] Performed By: #### 5 7021-8 ####BROWN LABORATORYCLIA [id number] [place] [address] [place] Nucleated RBC/100 WBC (Bld) [Ratio] 0.0 /100 WBC Normal [facility] Comment on above: Order Comment: Speci men Type: BLOOD SPECIMENOrdering Facility: [facility] Address: [address] [place] [address] Performed By: #### 5 7021-8 ####BROWN LABORATORYCLIA [id number] [place] [address] [place] Platelet mean volume (Bld) [Entitic vol] 10.1 fL Normal 9.0-12.7 [facility] Comment on above: Order Comment: Speci men Type: BLOOD SPECIMENOrdering Facility: [facility] Address: [address] [place] [address] Performed By: #### 5 7021-8 ####BROWN LABORATORYCLIA [id number] [address] [place] Platelets (Bld) [#/Vol] 245 10*3/uL Normal 150-400 [facility] Comment on above: Order Comment: Speci men Type: BLOOD SPECIMENOrdering Facility: [facility] Address: [address] [place] [address] Performed By: #### 5 7021-8 ####BROWN LABORATORYCLIA [id number] [place] [address] [place] RBC (Bld) [#/Vol] 4.02 10*6/uL Low 4.20-6.00 [facility] Comment on above: Order Comment: Speci men Type: BLOOD SPECIMENOrdering Facility: [facility] Address: [address] [place] [address] Performed By: #### 5 7021-8 ####BROWN LABORATORYCLIA [id number] [address] [place] WBC (Bld) [#/Vol] 7.17 10*3/uL Normal 3.70-11.00 [facility] Comment on above: Order Comment: Speci men Type: BLOOD SPECIMENOrdering Facility: [facility] Address: [address] [place] [address] Performed By: #### 5 7021-8 ####PINETOP LABORATORYCLIA [id number] [address] [place] CONSULT PROGon 09-26-2024 CONSULT PROG Normal [facility] Hepatic function 2000 panelo n 09-26-2024 Albumin [Mass/Vol] 3.5 g/dL Low 3.9-4.9 [facility] Comment on above: Order Comment: Speci men Type: BLOOD SPECIMENOrdering Facility: [facility] Address: [address] [place] [address] Performed By: #### 1 9123-9, 49271-6, 2777-1, 99492-2 ####BROWN LABORATORYCLIA [id number] [place] [address] [place] ALP [Catalytic activity/Vol] 103 U/L Normal 38-113 [facility] Comment on above: Order Comment: Speci men Type: BLOOD SPECIMENOrdering Facility: [facility] Address: [address] [place] [address] Performed By: #### 1 9123-9, 44522-4, 2777-1, 51973-4 ####BROWN LABORATORYCLIA [id number] [address] [place] ALT [Catalytic activity/Vol] 15 U/L Normal 10-54 [facility] Comment on above: Order Comment: Speci men Type: BLOOD SPECIMENOrdering Facility: [facility] Address: [address] [place] [address] Performed By: #### 1 9123-9, 08339-1, 2777-1, 72261-8 ####BROWN LABORATORYCLIA [id number] [address] [place] AST [Catalytic activity/Vol] Normal [facility] Comment on above: Order Comment: Speci men Type: BLOOD SPECIMENOrdering Facility: [facility] Address: [address] [place] [address] Result Comment: Unab le to assay due to interference from hemolysis. Suggest reorder as clinically indicated. Performed By: #### 1 9123-9, 67852-0, 2777-1, 64178-5 ####BROWN LABORATORYCLIA [id number] [address] STATES OF [facility] Bilirubin [Mass/Vol] 0.4 mg/dL Normal 0.2-1.3 [facility] Comment on above: Order Comment: Roldan lemons Type: BLOOD SPECIMENOrdering Facility: [facility] Address: [address] [place] [address] Performed By: #### 1 9123-9, 64092-7, 2777-1, 82710-0 ####BROWN LABORATORYCLIA [id number] [address] Bilirubin.conjugated [Mass/Vol] mg/dL Normal <0.3 [facility] Comment on above: Order Comment: Roldan lemons Type: BLOOD SPECIMENOrdering Facility: [facility] Address: [address] [place] [address] Result Comment: Resu lts may be falsely decreased due to interference from hemolysis. Suggest reorder as clinically indicated. Performed By: #### 1 9123-9, 57698-8, 2777-1, 02449-7 ####BROWN LABORATORYCLIA [id number] [address] STATES OF [facility] Protein [Mass/Vol] 5.8 g/dL Low 6.3-8.0 [facility] Comment on above: Order Comment: Roldan lemons Type: BLOOD SPECIMENOrdering Facility: [facility] Address: [address] [place] [address] Performed By: #### 1 9123-9, 55715-9, 2777-1, 95459-2 ####BROWN LABORATORYCLIA [id number] [address] [place] Magnesium SerPl-mCncon 09-26 Magnesium [Mass/Vol] 2.0 mg/dL Normal 1.7-2.3 [facility] Comment on above: Order Comment: Roldan lemons Type: BLOOD SPECIMENOrdering Facility: [facility] Address: [facility] [place] [id number] Performed By: #### 1 9123-9, 32179-0, 2777-1, 23692-9 ####PINETOP LABORATORYCLIA [id number] [place] [address] [facility] [place] NURSING PROGon 09-26-[address] [facility] NUTRITIONon 09-26-2024 NUTRITION Normal [facility] Phosphate SerPl-mCncon 09-26 Phosphate [Mass/Vol] 4.1 mg/dL Normal 2.7-4.8 [facility] Comment on above: Order Comment: Speci men Type: BLOOD SPECIMENOrdering Facility: [facility] Address: [facility] [place] [id number] Performed By: #### 1 9123-9, 12325-1, 2777-1, 02823-9 ####PINETOP LABORATORYCLIA [id number] [place] [id number] [facility] THERAPY NTon 09-26-[address] [facility] Basic metabolic 2000 panelon 09-25-2024 Anion gap [Moles/Vol] 12 mmol/L Normal 8-15 [facility] Comment on above: Order Comment: Speci men Type: BLOOD SPECIMENOrdering Facility: [facility] Address: [address] [place], [place] [address] [address] Performed By: #### 2 4321-2, 89636-1, 76796-7, 2776-1 ####PINETOP LABORATORYCLIA [id number] [place] [id number] [place] Calcium [Mass/Vol] 9.3 mg/dL Normal 8.5-10.2 [facility] Comment on above: Order Comment: Speci men Type: BLOOD SPECIMENOrdering Facility: [facility] Address: [address] [place], [place] [address] [address] Performed By: #### 2 4321-2, 00040-6, 42096-5, 7-1 ####PINETOP LABORATORYCLIA [id number] [place] [address] [place] Chloride [Moles/Vol] 103 mmol/L Normal 98-107 [facility] Comment on above: Order Comment: Speci men Type: BLOOD SPECIMENOrdering Facility: [facility] Address: [address] [place] [address] Performed By: #### 2 4321-2, 47845-1, , 2776-07 ####PINETOP LABORATORYCLIA [id number] [place] [address] [place] CO2 [Moles/Vol] 23 mmol/L Normal 22-30 [facility] Comment on above: Order Comment: Speci men Type: BLOOD SPECIMENOrdering Facility: [facility] Address: [address] [place], [place] [address] Performed By: #### 2 4321-2, 39503-3, , 2776-07 ####PINETOP LABORATORYCLIA [id number] [address] [place] Creatinine [Mass/Vol] 1.22 mg/dL Normal 0.73-1.22 [facility] Comment on above: Order Comment: Speci men Type: BLOOD SPECIMENOrdering Facility: [facility] Address: [address] [place], [place] [address] Performed By: #### 2 4321-2, 30642-8, , 2776-07 ####PINETOP LABORATORYCLIA [id number] [address] Creatinine and Glomerular filtration rate.predicted panel (S/P/Bld) 65 mL/min/1.73m??? Normal >=60 [facility] Comment on above: Order Comment: Speci men Type: BLOOD SPECIMENOrdering Facility: [facility] Address: [address] [place], [place] [address] Result Comment: Lissa mated Glomerular Filtration Rate (eGFR) is calculated using the 2020 CKD-EPI creatinine equation. This equation utilizes serum creatinine, sex, and age as parameters. The creatinine assay has traceable calibration to isotope dilution-mass spectrometry. Refer to KDIGO guidelines for clinical interpretation. In patients with unstable renal function, e.g. those with acute kidney injury, the eGFR may not accurately reflect actual GFR. Performed By: #### 2 4321-2, 24375-1, , 2776-07 ####PINETOP LABORATORYCLIA [id number] [place] [address] [place] Glucose [Mass/Vol] 70 mg/dL Low 74-99 [facility] Comment on above: Order Comment: Roldan lemons Type: BLOOD SPECIMENOrdering Facility: [facility] Address: [address] [place], [place] [address] Result Comment: The [place] [employer] (ADA) provides guidance for cutoff values for fasting glucose and random glucose. The ADA defines fasting as no caloric intake for at least 8 hours. Fasting plasma glucose results between 100 to 125 mg/dL indicate increased risk for diabetes (prediabetes).Fasting plasma glucose results greater than or equal to 126 mg/dL meet the criteria for diagnosis of diabetes. In the absence of unequivocal hyperglycemia, results should be confirmed by repeat testing. In a patient with classic symptoms of hyperglycemia or hyperglycemic crisis, random plasma glucose results greater than or equal to 200 mg/dL meet the criteria for diagnosis of diabetes.Reference: Standards of Medical Care in Diabetes 2016, [place] [employer]. Diabetes Care. 2016.39(Suppl 1). Performed By: #### 2 4321-2, 17366-7, , 2776-07 ####PINETOP LABORATORYCLIA [id number] [place] [address] [place] Potassium [Moles/Vol] 4.3 mmol/L Normal 3.7-5.1 [facility] Comment on above: Order Comment: Roldan lemons Type: BLOOD SPECIMENOrdering Facility: [facility] Address: [address] [place] [address] Performed By: #### 2 4321-2, 14924-8, , 2776-07 ####PINETOP LABORATORYCLIA [id number] [place] [address] [place] Sodium [Moles/Vol] 138 mmol/L Normal 136-144 [facility] Comment on above: Order Comment: Roldan lemons Type: BLOOD SPECIMENOrdering Facility: [facility] Address: [address] [place] [address] Performed By: #### 2 4321-2, 98459-8, , 2776-07 ####BROWN LABORATORYCLIA [id number] [place] [address] [place] Urea nitrogen [Mass/Vol] 30 mg/dL High 9- [facility] Comment on above: Order Comment: Speci men Type: BLOOD SPECIMENOrdering Facility: [facility] Address: [address] [place] [address] Performed By: #### 2 4321-2, 46594-8, 12769-2, 2776-07 ####BROWN LABORATORYCLIA [id number] [place] [address] [place] CASE MANAGEMon 09-25-2024 CASE MANAGEM Normal [facility] CBC W Auto Differential pane l (Bld)on 09-25-2024 Basophils (Bld) [#/Vol] 0.06 10*3/uL Normal <0.11 [facility] Comment on above: Order Comment: Speci men Type: BLOOD SPECIMENOrdering Facility: [facility] Address: [address] [place] [address] Performed By: #### 5 7021-8 ####BROWN LABORATORYCLIA [id number] [place] [address] [place] Basophils/100 WBC (Bld) 1.1 % Normal [facility] Comment on above: Order Comment: Speci men Type: BLOOD SPECIMENOrdering Facility: [facility] Address: [address] [place] [address] Performed By: #### 5 7021-8 ####BROWN LABORATORYCLIA [id number] [place] [address] [place] Differential cell count method Nom (Bld) Auto Normal [facility] Comment on above: Order Comment: Speci men Type: BLOOD SPECIMENOrdering Facility: [facility] Address: [address] [place] [address] Performed By: #### 5 7021-8 ####BROWN LABORATORYCLIA [id number] [place] [address] [place] Eosinophils (Bld) [#/Vol] 0.05 10*3/uL Normal <0.46 [facility] Comment on above: Order Comment: Speci men Type: BLOOD SPECIMENOrdering Facility: [facility] Address: [address] [place] [address] Performed By: #### 5 7021-8 ####BROWN LABORATORYCLIA [id number] [address] [place] Eosinophils/100 WBC (Bld) 0.9 % Normal [facility] Comment on above: Order Comment: Speci men Type: BLOOD SPECIMENOrdering Facility: [facility] Address: [address] [place] [address] Performed By: #### 5 7021-8 ####BROWN LABORATORYCLIA [id number] [address] [place] Erythrocyte distribution width (RBC) [Ratio] 13.7 % Normal 11.5-15.0 [facility] Comment on above: Order Comment: Speci men Type: BLOOD SPECIMENOrdering Facility: [facility] Address: [address] [place] [address] Performed By: #### 5 7021-8 ####BROWN LABORATORYCLIA [id number] [address] Hematocrit (Bld) [Volume fraction] 40.4 % Normal 39.0-51.0 [facility] Comment on above: Order Comment: Speci men Type: BLOOD SPECIMENOrdering Facility: [facility] Address: [address] [place] [address] Performed By: #### 5 7021-8 ####BROWN LABORATORYCLIA [id number] [place] [address] [place] Hemoglobin (Bld) [Mass/Vol] 12.6 g/dL Low 13.0-17.0 [facility] Comment on above: Order Comment: Speci men Type: BLOOD SPECIMENOrdering Facility: [facility] Address: [address] [place] [address] Performed By: #### 5 7021-8 ####BROWN LABORATORYCLIA [id number] [address] [place] Immature granulocytes (Bld) [#/Vol] 0.10 10*3/uL High <0.10 [facility] Comment on above: Order Comment: Speci men Type: BLOOD SPECIMENOrdering Facility: [facility] Address: [address] [place] [address] Performed By: #### 5 7021-8 ####BROWN LABORATORYCLIA [id number] [address] [place] Immature granulocytes/100 WBC (Bld) 1.9 % Normal [facility] Comment on above: Order Comment: Speci men Type: BLOOD SPECIMENOrdering Facility: [facility] Address: [address] [place] [address] Performed By: #### 5 7021-8 ####BROWN LABORATORYCLIA [id number] [place] [address] [place] Lymphocytes (Bld) [#/Vol] 0.81 10*3/uL Low 1.00-4.00 [facility] Comment on above: Order Comment: Speci men Type: BLOOD SPECIMENOrdering Facility: [facility] Address: [address] [place] [address] Performed By: #### 5 7021-8 ####BROWN LABORATORYCLIA [id number] [address] Lymphocytes/100 WBC (Bld) 15.4 % Normal [facility] Comment on above: Order Comment: Speci men Type: BLOOD SPECIMENOrdering Facility: [facility] Address: [address] [place] [address] Performed By: #### 5 7021-8 ####BROWN LABORATORYCLIA [id number] [address] [place] MCH (RBC) [Entitic mass] 28.9 pg Normal 26.0-34.0 [facility] Comment on above: Order Comment: Speci men Type: BLOOD SPECIMENOrdering Facility: [facility] Address: [address] [place] [address] Performed By: #### 5 7021-8 ####BROWN LABORATORYCLIA [id number] [address] [place] MCHC (RBC) [Mass/Vol] 31.2 g/dL Normal 30.5-36.0 [facility] Comment on above: Order Comment: Speci men Type: BLOOD SPECIMENOrdering Facility: [facility] Address: [address] [place] [address] Performed By: #### 5 7021-8 ####BROWN LABORATORYCLIA [id number] [place] [address] [place] MCV (RBC) [Entitic vol] 92.7 fL Normal 80.0-100.0 [facility] Comment on above: Order Comment: Speci men Type: BLOOD SPECIMENOrdering Facility: [facility] Address: [address] [place] [address] Performed By: #### 5 7021-8 ####BROWN LABORATORYCLIA [id number] [place] [address] [place] Monocytes (Bld) [#/Vol] 0.52 10*3/uL Normal <0.87 [facility] Comment on above: Order Comment: Speci men Type: BLOOD SPECIMENOrdering Facility: [facility] Address: [address] [place] [address] Performed By: #### 5 7021-8 ####BROWN LABORATORYCLIA [id number] [place] [address] [place] Monocytes/100 WBC (Bld) 9.9 % Normal [facility] Comment on above: Order Comment: Speci men Type: BLOOD SPECIMENOrdering Facility: [facility] Address: [address] [place] [address] Performed By: #### 5 7021-8 ####BROWN LABORATORYCLIA [id number] [place] [address] [place] Neutrophils (Bld) [#/Vol] 3.73 10*3/uL Normal 1.45-7.50 [facility] Comment on above: Order Comment: Speci men Type: BLOOD SPECIMENOrdering Facility: [facility] Address: [address] [place] [address] Performed By: #### 5 7021-8 ####BROWN LABORATORYCLIA [id number] [place] [address] [place] Neutrophils/100 WBC (Bld) 70.8 % Normal [facility] Comment on above: Order Comment: Speci men Type: BLOOD SPECIMENOrdering Facility: [facility] Address: [address] [place] [address] Performed By: #### 5 7021-8 ####BROWN LABORATORYCLIA [id number] [place] [address] [place] Nucleated RBC (Bld) [#/Vol] 10*3/uL Normal <0.01 [facility] Comment on above: Order Comment: Speci men Type: BLOOD SPECIMENOrdering Facility: [facility] Address: [address] [place] [address] Performed By: #### 5 7021-8 ####BROWN LABORATORYCLIA [id number] [place] [address] [place] Nucleated RBC/100 WBC (Bld) [Ratio] 0.0 /100 WBC Normal [facility] Comment on above: Order Comment: Speci men Type: BLOOD SPECIMENOrdering Facility: [facility] Address: [address] [place] [address] Performed By: #### 5 7021-8 ####BROWN LABORATORYCLIA [id number] [place] [address] [place] Platelet mean volume (Bld) [Entitic vol] 10.0 fL Normal 9.0-12.7 [facility] Comment on above: Order Comment: Speci men Type: BLOOD SPECIMENOrdering Facility: [facility] Address: [address] [place] [address] Performed By: #### 5 7021-8 ####BROWN LABORATORYCLIA [id number] [place] [address] [place] Platelets (Bld) [#/Vol] 270 10*3/uL Normal 150-400 [facility] Comment on above: Order Comment: Speci men Type: BLOOD SPECIMENOrdering Facility: [facility] Address: [address] [place] [address] Performed By: #### 5 7021-8 ####BROWN LABORATORYCLIA [id number] [place] [address] [place] RBC (Bld) [#/Vol] 4.36 10*6/uL Normal 4.20-6.00 [facility] Comment on above: Order Comment: Speci men Type: BLOOD SPECIMENOrdering Facility: [facility] Address: [address] [place] [address] Performed By: #### 5 7021-8 ####PINETOP LABORATORYCLIA [id number] [place] [address] [place] [facility] WBC (Bld) [#/Vol] 5.35 10*3/uL Normal 3.70-11.00 [facility] Comment on above: Order Comment: Speci men Type: BLOOD SPECIMENOrdering Facility: [facility] Address: [address] [place] [address] Performed By: #### 5 7021-8 ####BROWN LABORATORYCLIA [id number] [address] OF [facility] CONSULT PROGon 09-25-2024 CONSULT PROG Normal [facility] ECG COMPLETEon 09-25-2024 ECG COMPLETE Normal [facility] Hepatic function 2000 panelo n 09-25-2024 Albumin [Mass/Vol] 3.4 g/dL Low 3.9-4.9 [facility] Comment on above: Order Comment: Speci men Type: BLOOD SPECIMENOrdering Facility: [facility] Address: [address] [place] [address] Performed By: #### 2 4321-2, 36125-7, 51701-1, 7-1 ####BROWN LABORATORYCLIA [id number] [place] [address] [place] ALP [Catalytic activity/Vol] 97 U/L Normal 38-113 [facility] Comment on above: Order Comment: Speci men Type: BLOOD SPECIMENOrdering Facility: [facility] Address: [address] [place] [address] Performed By: #### 2 4321-2, 26857-3, 70910-2, 2777-1 ####BROWN LABORATORYCLIA [id number] [place] [address] [place] [facility] ALT [Catalytic activity/Vol] 19 U/L Normal 10-54 [facility] Comment on above: Order Comment: Speci men Type: BLOOD SPECIMENOrdering Facility: [facility] Address: [address] [place] [address] Performed By: #### 2 4321-2, 12120-3, , 2776- ####BROWN LABORATORYCLIA [id number] [address] [place] AST [Catalytic activity/Vol] 40 U/L Normal 14-40 [facility] Comment on above: Order Comment: Speci men Type: BLOOD SPECIMENOrdering Facility: [facility] Address: [address] [place] [address] Performed By: #### 2 4321-2, 34566-6, , 2776-07 ####BROWN LABORATORYCLIA [id number] [address] [place] Bilirubin [Mass/Vol] 0.5 mg/dL Normal 0.2-1.3 [facility] Comment on above: Order Comment: Speci men Type: BLOOD SPECIMENOrdering Facility: [facility] Address: [address] [place] [address] Performed By: #### 2 4321-2, 78986-5, , 2776-07 ####BROWN LABORATORYCLIA [id number] [address] Bilirubin.conjugated [Mass/Vol] 0.2 mg/dL Normal <0.3 [facility] Comment on above: Order Comment: Speci men Type: BLOOD SPECIMENOrdering Facility: [facility] Address: [address] [place] [address] Performed By: #### 2 4321-2, 54592-6, , 2776- ####BROWN LABORATORYCLIA [id number] [address] [place] Protein [Mass/Vol] 6.2 g/dL Low 6.3-8.0 [facility] Comment on above: Order Comment: Speci men Type: BLOOD SPECIMENOrdering Facility: [facility] Address: [address] [place] [address] Performed By: #### 2 4321-2, 70486-6, 82250-8, 2776-1 ####PINETOP LABORATORYCLIA [id number] [place] [address] [place] Magnesium SerPl-mCncon 09-25 Magnesium [Mass/Vol] 2.1 mg/dL Normal 1.7-2.3 [facility] Comment on above: Order Comment: Speci men Type: BLOOD SPECIMENOrdering Facility: [facility] Address: [address] [place], [place] [address] Performed By: #### 2 4321-2, 22710-3, 73210-5, 2776- ####PINETOP LABORATORYCLIA [id number] [place] [address] [place] [facility] [place] Phosphate SerPl-ncon 09-25 Phosphate [Mass/Vol] 3.6 mg/dL Normal 2.7-4.8 [facility] Comment on above: Order Comment: Speci men Type: BLOOD SPECIMENOrdering Facility: [facility] Address: [address] [place] [address] Performed By: #### 2 4321-2, 45727-5, 89323-4, 277-1 ####PINETOP LABORATORYCLIA [id number] [place] [address] [place] THERAPY NTon 09-25-2024 THERAPY NT Normal [facility] Basic metabolic 2000 panelon 09-24-2024 Anion gap [Moles/Vol] 12 mmol/L Normal 8-15 [facility] Comment on above: Order Comment: Speci men Type: BLOOD SPECIMENOrdering Facility: [facility] Address: [address] [place], [place] [address] Performed By: #### 2 4321-2, 17300-6, 2777-1, 21028-6 ####PINETOP LABORATORYCLIA [id number] [place] [address] [place] Calcium [Mass/Vol] 9.5 mg/dL Normal 8.5-10.2 [facility] Comment on above: Order Comment: Speci men Type: BLOOD SPECIMENOrdering Facility: [facility] Address: [address] [place], [place] [address] Performed By: #### 2 4321-2, 34108-5, 2777-1, 85912-2 ####BROWN LABORATORYCLIA [id number] [place] [address] [place] Chloride [Moles/Vol] 100 mmol/L Normal 98-107 [facility] Comment on above: Order Comment: Speci men Type: BLOOD SPECIMENOrdering Facility: [facility] Address: [address] [place] [address] Performed By: #### 2 4321-2, 04248-8, 2777-1, ####PINETOP LABORATORYCLIA [id number] [place] [id number] [place] CO2 [Moles/Vol] 26 mmol/L Normal 22-30 [facility] Comment on above: Order Comment: Speci men Type: BLOOD SPECIMENOrdering Facility: [facility] Address: [address] [place] [address] Performed By: #### 2 4321-2, 39322-6, 2777-1, ####PINETOP LABORATORYCLIA [id number] [place] [id number] [place] Creatinine [Mass/Vol] 1.32 mg/dL High 0.73-1.22 [facility] Comment on above: Order Comment: Speci men Type: BLOOD SPECIMENOrdering Facility: [facility] Address: [address] [place] [address] Performed By: #### 2 4321-2, 38880-6, 277-1, 91489-5 ####PINETOP LABORATORYCLIA [id number] [place] [address] [place] Creatinine and Glomerular filtration rate.predicted panel (S/P/Bld) 59 mL/min/1.73m??? Low >=60 [facility] Comment on above: Order Comment: Speci men Type: BLOOD SPECIMENOrdering Facility: [facility] Address: [address] [place] [address] Result Comment: Lissa mated Glomerular Filtration Rate (eGFR) is calculated using the 2020 CKD-EPI creatinine equation. This equation utilizes serum creatinine, sex, and age as parameters. The creatinine assay has traceable calibration to isotope dilution-mass spectrometry. Refer to KDIGO guidelines for clinical interpretation. In patients with unstable renal function, e.g. those with acute kidney injury, the eGFR may not accurately reflect actual GFR. Performed By: #### 2 4321-2, 24346-8, 2776-, ####PINETOP LABORATORYCLIA [id number] [place] [address] [place] Glucose [Mass/Vol] 71 mg/dL Low 74-99 [facility] Comment on above: Order Comment: Roldan lemons Type: BLOOD SPECIMENOrdering Facility: [facility] Address: [address] [place], [place] [address] Result Comment: The [place] Diabetes Association (ADA) provides guidance for cutoff values for fasting glucose and random glucose. The ADA defines fasting as no caloric intake for at least 8 hours. Fasting plasma glucose results between 100 to 125 mg/dL indicate increased risk for diabetes (prediabetes).Fasting plasma glucose results greater than or equal to 126 mg/dL meet the criteria for diagnosis of diabetes. In the absence of unequivocal hyperglycemia, results should be confirmed by repeat testing. In a patient with classic symptoms of hyperglycemia or hyperglycemic crisis, random plasma glucose results greater than or equal to 200 mg/dL meet the criteria for diagnosis of diabetes.Reference: Standards of Medical Care in Diabetes 2016, [place] [employer]. Diabetes Care. 2016.39(Suppl 1). Performed By: #### 2 4321-2, 19057-2, 2776-07, ####PINETOP LABORATORYCLIA [id number] [place] [address] [place] Potassium [Moles/Vol] 3.9 mmol/L Normal 3.7-5.1 [facility] Comment on above: Order Comment: Roldan lemons Type: BLOOD SPECIMENOrdering Facility: [facility] Address: [address] [place] [address] Performed By: #### 2 4321-2, 50962-2, 2776-07, ####PINETOP LABORATORYCLIA [id number] [place] [address] [place] Sodium [Moles/Vol] 138 mmol/L Normal 136-144 [facility] Comment on above: Order Comment: Speci men Type: BLOOD SPECIMENOrdering Facility: [facility] Address: [address] [place] [address] Performed By: #### 2 4321-2, 76798-2, 277-1, ####BROWN LABORATORYCLIA [id number] [place] [address] [place] Urea nitrogen [Mass/Vol] 26 mg/dL High 9-24 [facility] Comment on above: Order Comment: Speci men Type: BLOOD SPECIMENOrdering Facility: [facility] Address: [address] [place] [address] Performed By: #### 2 4321-2, 67036-2, 2776-1, ####BROWN LABORATORYCLIA [id number] [address] [place] CASE MANAGEMon 09-24-2024 CASE MANAGEM Normal [facility] CBC W Auto Differential pane l (Bld)on 09-24-2024 Basophils (Bld) [#/Vol] 10*3/uL Normal <0.11 [facility] Comment on above: Order Comment: Speci men Type: BLOOD SPECIMENOrdering Facility: [facility] Address: [address] [place] [address] Performed By: #### 5 7021-8 ####BROWN LABORATORYCLIA [id number] [address] [place] Basophils/100 WBC (Bld) 0.3 % Normal [facility] Comment on above: Order Comment: Speci men Type: BLOOD SPECIMENOrdering Facility: [facility] Address: [address] [place] [address] Performed By: #### 5 7021-8 ####BROWN LABORATORYCLIA [id number] [address] [place] [facility] Differential cell count method Nom (Bld) Auto Normal [facility] Comment on above: Order Comment: Speci men Type: BLOOD SPECIMENOrdering Facility: [facility] Address: [address] [place] [address] Performed By: #### 5 7021-8 ####BROWN LABORATORYCLIA [id number] [place] [address] [place] Eosinophils (Bld) [#/Vol] 10*3/uL Normal <0.46 [facility] Comment on above: Order Comment: Speci men Type: BLOOD SPECIMENOrdering Facility: [facility] Address: [address] [place] [address] Performed By: #### 5 7021-8 ####BROWN LABORATORYCLIA [id number] [address] [place] Eosinophils/100 WBC (Bld) 0.1 % Normal [facility] Comment on above: Order Comment: Speci men Type: BLOOD SPECIMENOrdering Facility: [facility] Address: [address] [place] [address] Performed By: #### 5 7021-8 ####BROWN LABORATORYCLIA [id number] [address] [place] Erythrocyte distribution width (RBC) [Ratio] 13.7 % Normal 11.5-15.0 [facility] Comment on above: Order Comment: Speci men Type: BLOOD SPECIMENOrdering Facility: [facility] Address: [address] [place] [address] Performed By: #### 5 7021-8 ####BROWN LABORATORYCLIA [id number] [address] Hematocrit (Bld) [Volume fraction] 36.6 % Low 39.0-51.0 [facility] Comment on above: Order Comment: Speci men Type: BLOOD SPECIMENOrdering Facility: [facility] Address: [address] [place] [address] Performed By: #### 5 7021-8 ####BROWN LABORATORYCLIA [id number] [address] [place] Hemoglobin (Bld) [Mass/Vol] 11.7 g/dL Low 13.0-17.0 [facility] Comment on above: Order Comment: Speci men Type: BLOOD SPECIMENOrdering Facility: [facility] Address: [address] [place] [address] Performed By: #### 5 7021-8 ####BROWN LABORATORYCLIA [id number] [address] [place] Immature granulocytes (Bld) [#/Vol] 0.04 10*3/uL Normal <0.10 [facility] Comment on above: Order Comment: Speci men Type: BLOOD SPECIMENOrdering Facility: [facility] Address: [address] [place] [address] Performed By: #### 5 7021-8 ####BROWN LABORATORYCLIA [id number] [address] Immature granulocytes/100 WBC (Bld) 0.6 % Normal [facility] Comment on above: Order Comment: Speci men Type: BLOOD SPECIMENOrdering Facility: [facility] Address: [address] [place] [address] Performed By: #### 5 7021-8 ####BROWN LABORATORYCLIA [id number] [address] [place] Lymphocytes (Bld) [#/Vol] 0.74 10*3/uL Low 1.00-4.00 [facility] Comment on above: Order Comment: Speci men Type: BLOOD SPECIMENOrdering Facility: [facility] Address: [address] [place] [address] Performed By: #### 5 7021-8 ####BROWN LABORATORYCLIA [id number] [address] Lymphocytes/100 WBC (Bld) 10.6 % Normal [facility] Comment on above: Order Comment: Speci men Type: BLOOD SPECIMENOrdering Facility: [facility] Address: [address] [place] [address] Performed By: #### 5 7021-8 ####BROWN LABORATORYCLIA [id number] [place] [address] [place] MCH (RBC) [Entitic mass] 28.5 pg Normal 26.0-34.0 [facility] Comment on above: Order Comment: Speci men Type: BLOOD SPECIMENOrdering Facility: [facility] Address: [address] [place] [address] Performed By: #### 5 7021-8 ####BROWN LABORATORYCLIA [id number] [address] MCHC (RBC) [Mass/Vol] 32.0 g/dL Normal 30.5-36.0 [facility] Comment on above: Order Comment: Speci men Type: BLOOD SPECIMENOrdering Facility: [facility] Address: [address] [place] [address] Performed By: #### 5 7021-8 ####BROWN LABORATORYCLIA [id number] [address] MCV (RBC) [Entitic vol] 89.3 fL Normal 80.0-100.0 [facility] Comment on above: Order Comment: Speci men Type: BLOOD SPECIMENOrdering Facility: [facility] Address: [address] [place] [address] Performed By: #### 5 7021-8 ####BROWN LABORATORYCLIA [id number] [address] Monocytes (Bld) [#/Vol] 0.77 10*3/uL Normal <0.87 [facility] Comment on above: Order Comment: Speci men Type: BLOOD SPECIMENOrdering Facility: [facility] Address: [address] [place] [address] Performed By: #### 5 7021-8 ####BROWN LABORATORYCLIA [id number] [address] Monocytes/100 WBC (Bld) 11.1 % Normal [facility] Comment on above: Order Comment: Speci men Type: BLOOD SPECIMENOrdering Facility: [facility] Address: [address] [place] [address] Performed By: #### 5 7021-8 ####BROWN LABORATORYCLIA [id number] [address] Neutrophils (Bld) [#/Vol] 5.37 10*3/uL Normal 1.45-7.50 [facility] Comment on above: Order Comment: Speci men Type: BLOOD SPECIMENOrdering Facility: [facility] Address: [address] [place] [address] Performed By: #### 5 7021-8 ####BROWN LABORATORYCLIA [id number] [address] [place] Neutrophils/100 WBC (Bld) 77.3 % Normal [facility] Comment on above: Order Comment: Speci men Type: BLOOD SPECIMENOrdering Facility: [facility] Address: [address] [place] [address] Performed By: #### 5 7021-8 ####BROWN LABORATORYCLIA [id number] [place] [address] [place] Nucleated RBC (Bld) [#/Vol] 10*3/uL Normal <0.01 [facility] Comment on above: Order Comment: Speci men Type: BLOOD SPECIMENOrdering Facility: [facility] Address: [address] [place] [address] Performed By: #### 5 7021-8 ####BROWN LABORATORYCLIA [id number] [address] [place] Nucleated RBC/100 WBC (Bld) [Ratio] 0.0 /100 WBC Normal [facility] Comment on above: Order Comment: Speci men Type: BLOOD SPECIMENOrdering Facility: [facility] Address: [address] [place] [address] Performed By: #### 5 7021-8 ####BROWN LABORATORYCLIA [id number] [place] [address] [place] Platelet mean volume (Bld) [Entitic vol] 9.8 fL Normal 9.0-12.7 [facility] Comment on above: Order Comment: Speci men Type: BLOOD SPECIMENOrdering Facility: [facility] Address: [address] [place] [address] Performed By: #### 5 7021-8 ####BROWN LABORATORYCLIA [id number] [place] [address] [place] Platelets (Bld) [#/Vol] 279 10*3/uL Normal 150-400 [facility] Comment on above: Order Comment: Speci men Type: BLOOD SPECIMENOrdering Facility: [facility] Address: [address] [place] [id number] Performed By: #### 5 7021-8 ####BROWN LABORATORYCLIA [id number] [place] [address] [place] RBC (Bld) [#/Vol] 4.10 10*6/uL Low 4.20-6.00 [facility] Comment on above: Order Comment: Speci men Type: BLOOD SPECIMENOrdering Facility: [facility] Address: [facility] [place] [address] Performed By: #### 5 7021-8 ####BROWN LABORATORYCLIA [id number] [place] [address] [place] WBC (Bld) [#/Vol] 6.95 10*3/uL Normal 3.70-11.00 [facility] Comment on above: Order Comment: Speci men Type: BLOOD SPECIMENOrdering Facility: [facility] Address: [address] [place], [place] [address] [address] Performed By: #### 5 7021-8 ####BROWN LABORATORYCLIA [id number] [address] CONSULT PROGon 09-24-2024 CONSULT PROG Normal [facility] Hepatic function 2000 panelo n 09-24-2024 Albumin [Mass/Vol] 3.6 g/dL Low 3.9-4.9 [facility] Comment on above: Order Comment: Speci men Type: BLOOD SPECIMENOrdering Facility: [facility] Address: [facility] [place] [id number] Performed By: #### 2 4321-2, 19250-5, 277-1, 44067-6 ####BROWN LABORATORYCLIA [id number] [place] [id number] [facility] [place] ALP [Catalytic activity/Vol] 93 U/L Normal 38-113 [facility] Comment on above: Order Comment: Speci men Type: BLOOD SPECIMENOrdering Facility: [facility] Address: [facility] [place] [address] Performed By: #### 2 4321-2, 43030-4, 2777-1, 25696-9 ####BROWN LABORATORYCLIA [id number] [place] [address] [place] ALT [Catalytic activity/Vol] 9 U/L Low 10-54 [facility] Comment on above: Order Comment: Speci men Type: BLOOD SPECIMENOrdering Facility: [facility] Address: [address] [place] [address] Performed By: #### 2 4321-2, 84851-5, 277-1, ####BROWN LABORATORYCLIA [id number] [address] [place] AST [Catalytic activity/Vol] 22 U/L Normal 14-40 [facility] Comment on above: Order Comment: Speci men Type: BLOOD SPECIMENOrdering Facility: [facility] Address: [address] [place] [address] Performed By: #### 2 4321-2, 76921-9, 2776-, ####BROWN LABORATORYCLIA [id number] [address] STATES OF [facility] Bilirubin [Mass/Vol] 0.4 mg/dL Normal 0.2-1.3 [facility] Comment on above: Order Comment: Speci men Type: BLOOD SPECIMENOrdering Facility: [facility] Address: [address] [place] [address] Performed By: #### 2 4321-2, 09947-2, 2776-1, ####BROWN LABORATORYCLIA [id number] [address] Bilirubin.conjugated [Mass/Vol] 0.2 mg/dL Normal <0.3 [facility] Comment on above: Order Comment: Speci men Type: BLOOD SPECIMENOrdering Facility: [facility] Address: [address] [place] [address] Performed By: #### 2 4321-2, 47264-3, 277-1, ####BROWN LABORATORYCLIA [id number] [place] [address] [facility] Protein [Mass/Vol] 6.6 g/dL Normal 6.3-8.0 [facility] Comment on above: Order Comment: Speci men Type: BLOOD SPECIMENOrdering Facility: [facility] Address: [address] [place] [address] Performed By: #### 2 4321-2, 42804-4, 277-1, 27431-7 ####PINETOP LABORATORYCLIA [id number] [place] [address] [place] [facility] Magnesium [Mass/Vol] 2.2 mg/dL Normal 1.7-2.3 [facility] Comment on above: Order Comment: Speci men Type: BLOOD SPECIMENOrdering Facility: [facility] Address: [address] [place] [address] Performed By: #### 2 4321-2, 31219-6, 2776-1, ####PINETOP LABORATORYCLIA [id number] [place] [address] [place] Phosphate SerPl-ncon 09-24 Phosphate [Mass/Vol] 3.2 mg/dL Normal 2.7-4.8 [facility] Comment on above: Order Comment: Speci men Type: BLOOD SPECIMENOrdering Facility: [facility] Address: [address] [place] [address] Performed By: #### 2 4321-2, 98091-9, 2776-1, ####PINETOP LABORATORYCLIA [id number] [place] [address] [facility] [place] THERAPY NTon 09-24-2024 THERAPY NT Normal [facility] THERAPY NT Normal [facility] Basic metabolic 2000 panelon 09-23-2024 Anion gap [Moles/Vol] 9 mmol/L Normal 8-15 [facility] Comment on above: Order Comment: Speci men Type: BLOOD SPECIMENOrdering Facility: [facility] Address: [address] [place] [address] Performed By: #### 2 4325-3, 54889-2, 277-1, 04782-5 ####PINETOP LABORATORYCLIA [id number] [place] [address] [place] Calcium [Mass/Vol] 9.6 mg/dL Normal 8.5-10.2 [facility] Comment on above: Order Comment: Speci men Type: BLOOD SPECIMENOrdering Facility: [facility] Address: [address] [place] [address] Performed By: #### 2 4325-3, 81486-8, 2776-1, 82983-3 ####PINETOP LABORATORYCLIA [id number] [place] [address] [place] Chloride [Moles/Vol] 103 mmol/L Normal 98-107 [facility] Comment on above: Order Comment: Speci men Type: BLOOD SPECIMENOrdering Facility: [facility] Address: [address] [place] [address] Performed By: #### 2 4325-3, , 1, 92798-6 ####PINETOP LABORATORYCLIA [id number] [place] [address] [place] CO2 [Moles/Vol] 27 mmol/L Normal 22-30 [facility] Comment on above: Order Comment: Speci men Type: BLOOD SPECIMENOrdering Facility: [facility] Address: [address] [place] [address] Performed By: #### 2 4325-3, , 1, 30663-6 ####PINETOP LABORATORYCLIA [id number] [place] [address] [place] Creatinine [Mass/Vol] 1.34 mg/dL High 0.73-1.22 [facility] Comment on above: Order Comment: Speci men Type: BLOOD SPECIMENOrdering Facility: [facility] Address: [address] [place] [address] Performed By: #### 2 4325-3, , 2776-1, 12793-9 ####PINETOP LABORATORYCLIA [id number] [place] [address] [facility] [place] Creatinine and Glomerular filtration rate.predicted panel (S/P/Bld) 58 mL/min/1.73m??? Low >=60 [facility] Comment on above: Order Comment: Speci men Type: BLOOD SPECIMENOrdering Facility: [facility] Address: [address] [place] [address] Result Comment: Lissa mated Glomerular Filtration Rate (eGFR) is calculated using the 2020 CKD-EPI creatinine equation. This equation utilizes serum creatinine, sex, and age as parameters. The creatinine assay has traceable calibration to isotope dilution-mass spectrometry. Refer to KDIGO guidelines for clinical interpretation. In patients with unstable renal function, e.g. those with acute kidney injury, the eGFR may not accurately reflect actual GFR. Performed By: #### 2 4325-3, 58974-2, 2777-1, 97470-7 ####PINETOP LABORATORYCLIA [id number] [place] [address] [place] Glucose [Mass/Vol] 111 mg/dL High 74-99 [facility] Comment on above: Order Comment: Roldan lemons Type: BLOOD SPECIMENOrdering Facility: [facility] Address: [address] [place] [address] Result Comment: The [place] Diabetes Association (ADA) provides guidance for cutoff values for fasting glucose and random glucose. The ADA defines fasting as no caloric intake for at least 8 hours. Fasting plasma glucose results between 100 to 125 mg/dL indicate increased risk for diabetes (prediabetes).Fasting plasma glucose results greater than or equal to 126 mg/dL meet the criteria for diagnosis of diabetes. In the absence of unequivocal hyperglycemia, results should be confirmed by repeat testing. In a patient with classic symptoms of hyperglycemia or hyperglycemic crisis, random plasma glucose results greater than or equal to 200 mg/dL meet the criteria for diagnosis of diabetes.Reference: Standards of Medical Care in Diabetes 2016, [place] [employer]. Diabetes Care. 2016.39(Suppl 1). Performed By: #### 2 4325-3, 97159-6, 2777-1, 89250-4 ####PINETOP LABORATORYCLIA [id number] [place] [address] [place] Potassium [Moles/Vol] 4.3 mmol/L Normal 3.7-5.1 [facility] Comment on above: Order Comment: Roldan [facility] Type: BLOOD SPECIMENOrdering Facility: [facility] Address: [address] [place] [address] Performed By: #### 2 4325-3, 12872-4, 2777-1, 72121-0 ####BROWN LABORATORYCLIA [id number] [place] [address] [place] Sodium [Moles/Vol] 139 mmol/L Normal 136-144 [facility] Comment on above: Order Comment: Speci men Type: BLOOD SPECIMENOrdering Facility: [facility] Address: [address] [place] [address] Performed By: #### 2 4325-3, 96407-0, 2776-1, 56071-1 ####BROWN LABORATORYCLIA [id number] [place] [address] [place] Urea nitrogen [Mass/Vol] 29 mg/dL High 9-24 [facility] Comment on above: Order Comment: Speci men Type: BLOOD SPECIMENOrdering Facility: [facility] Address: [address] [place] [address] Performed By: #### 2 4325-3, 98723-3, 2776-1, 72813-1 ####BROWN LABORATORYCLIA [id number] [address] [place] CASE MANAGEMon 09-23-2024 CASE MANAGEM Normal [facility] CBC W Auto Differential pane l (Bld)on 09-23-2024 Basophils (Bld) [#/Vol] 10*3/uL Normal <0.11 [facility] Comment on above: Order Comment: Speci men Type: BLOOD SPECIMENOrdering Facility: [facility] Address: [address] [place] [address] Performed By: #### 5 7021-8 ####BROWN LABORATORYCLIA [id number] [place] [address] [place] Basophils/100 WBC (Bld) 0.1 % Normal [facility] Comment on above: Order Comment: Speci men Type: BLOOD SPECIMENOrdering Facility: [facility] Address: [address] [place] [address] Performed By: #### 5 7021-8 ####BROWN LABORATORYCLIA [id number] [place] [address] [place] Differential cell count method Nom (Bld) Auto Normal [facility] Comment on above: Order Comment: Speci men Type: BLOOD SPECIMENOrdering Facility: [facility] Address: [address] [place] [address] Performed By: #### 5 7021-8 ####BROWN LABORATORYCLIA [id number] [place] [address] [facility] [place] Eosinophils (Bld) [#/Vol] 10*3/uL Normal <0.46 [facility] Comment on above: Order Comment: Speci men Type: BLOOD SPECIMENOrdering Facility: [facility] Address: [address] [place] [address] Performed By: #### 5 7021-8 ####BROWN LABORATORYCLIA [id number] [address] Eosinophils/100 WBC (Bld) 0.0 % Normal [facility] Comment on above: Order Comment: Speci men Type: BLOOD SPECIMENOrdering Facility: [facility] Address: [address] [place] [address] Performed By: #### 5 7021-8 ####BROWN LABORATORYCLIA [id number] [address] [place] Erythrocyte distribution width (RBC) [Ratio] 13.7 % Normal 11.5-15.0 [facility] Comment on above: Order Comment: Speci men Type: BLOOD SPECIMENOrdering Facility: [facility] Address: [address] [place] [address] Performed By: #### 5 7021-8 ####BROWN LABORATORYCLIA [id number] [address] [place] Hematocrit (Bld) [Volume fraction] 35.1 % Low 39.0-51.0 [facility] Comment on above: Order Comment: Speci men Type: BLOOD SPECIMENOrdering Facility: [facility] Address: [address] [place] [address] Performed By: #### 5 7021-8 ####BROWN LABORATORYCLIA [id number] [address] [place] Hemoglobin (Bld) [Mass/Vol] 11.3 g/dL Low 13.0-17.0 [facility] Comment on above: Order Comment: Speci men Type: BLOOD SPECIMENOrdering Facility: [facility] Address: [address] [place] [address] Performed By: #### 5 7021-8 ####BROWN LABORATORYCLIA [id number] [address] [place] Immature granulocytes (Bld) [#/Vol] 0.03 10*3/uL Normal <0.10 [facility] Comment on above: Order Comment: Speci men Type: BLOOD SPECIMENOrdering Facility: [facility] Address: [address] [place] [address] Performed By: #### 5 7021-8 ####BROWN LABORATORYCLIA [id number] [address] [place] Immature granulocytes/100 WBC (Bld) 0.4 % Normal [facility] Comment on above: Order Comment: Speci men Type: BLOOD SPECIMENOrdering Facility: [facility] Address: [address] [place] [address] Performed By: #### 5 7021-8 ####BROWN LABORATORYCLIA [id number] [place] [address] [place] Lymphocytes (Bld) [#/Vol] 0.36 10*3/uL Low 1.00-4.00 [facility] Comment on above: Order Comment: Speci men Type: BLOOD SPECIMENOrdering Facility: [facility] Address: [address] [place] [address] Performed By: #### 5 7021-8 ####BROWN LABORATORYCLIA [id number] [address] [place] Lymphocytes/100 WBC (Bld) 4.5 % Normal [facility] Comment on above: Order Comment: Speci men Type: BLOOD SPECIMENOrdering Facility: [facility] Address: [address] [place] [address] Performed By: #### 5 7021-8 ####BROWN LABORATORYCLIA [id number] [place] [address] [place] MCH (RBC) [Entitic mass] 29.1 pg Normal 26.0-34.0 [facility] Comment on above: Order Comment: Speci men Type: BLOOD SPECIMENOrdering Facility: [facility] Address: [facility] [place] [address] Performed By: #### 5 7021-8 ####BROWN LABORATORYCLIA [id number] [place] [address] [place] MCHC (RBC) [Mass/Vol] 32.2 g/dL Normal 30.5-36.0 [facility] Comment on above: Order Comment: Speci men Type: BLOOD SPECIMENOrdering Facility: [facility] Address: [address] [place] [address] Performed By: #### 5 7021-8 ####BROWN LABORATORYCLIA [id number] [address] MCV (RBC) [Entitic vol] 90.5 fL Normal 80.0-100.0 [facility] Comment on above: Order Comment: Speci men Type: BLOOD SPECIMENOrdering Facility: [facility] Address: [address] [place] [address] Performed By: #### 5 7021-8 ####BROWN LABORATORYCLIA [id number] [address] [place] Monocytes (Bld) [#/Vol] 0.61 10*3/uL Normal <0.87 [facility] Comment on above: Order Comment: Speci men Type: BLOOD SPECIMENOrdering Facility: [facility] Address: [address] [place] [address] Performed By: #### 5 7021-8 ####BROWN LABORATORYCLIA [id number] [address] Monocytes/100 WBC (Bld) 7.6 % Normal [facility] Comment on above: Order Comment: Speci men Type: BLOOD SPECIMENOrdering Facility: [facility] Address: [address] [place] [address] Performed By: #### 5 7021-8 ####BROWN LABORATORYCLIA [id number] [place] [address] [place] Neutrophils (Bld) [#/Vol] 6.98 10*3/uL Normal 1.45-7.50 [facility] Comment on above: Order Comment: Speci men Type: BLOOD SPECIMENOrdering Facility: [facility] Address: [address] [place] [address] Performed By: #### 5 7021-8 ####BROWN LABORATORYCLIA [id number] [address] [place] Neutrophils/100 WBC (Bld) 87.4 % Normal [facility] Comment on above: Order Comment: Speci men Type: BLOOD SPECIMENOrdering Facility: [facility] Address: [address] [place] [address] Performed By: #### 5 7021-8 ####BROWN LABORATORYCLIA [id number] [address] [place] Nucleated RBC (Bld) [#/Vol] 10*3/uL Normal <0.01 [facility] Comment on above: Order Comment: Speci men Type: BLOOD SPECIMENOrdering Facility: [facility] Address: [address] [place] [address] Performed By: #### 5 7021-8 ####BROWN LABORATORYCLIA [id number] [address] [place] Nucleated RBC/100 WBC (Bld) [Ratio] 0.0 /100 WBC Normal [facility] Comment on above: Order Comment: Speci men Type: BLOOD SPECIMENOrdering Facility: [facility] Address: [address] [place] [address] Performed By: #### 5 7021-8 ####BROWN LABORATORYCLIA [id number] [place] [address] [place] Platelet mean volume (Bld) [Entitic vol] 10.2 fL Normal 9.0-12.7 [facility] Comment on above: Order Comment: Speci men Type: BLOOD SPECIMENOrdering Facility: [facility] Address: [address] [place] [address] Performed By: #### 5 7021-8 ####BROWN LABORATORYCLIA [id number] [address] [place] Platelets (Bld) [#/Vol] 303 10*3/uL Normal 150-400 [facility] Comment on above: Order Comment: Speci men Type: BLOOD SPECIMENOrdering Facility: [facility] Address: [address] [place] [address] Performed By: #### 5 7021-8 ####BROWN LABORATORYCLIA [id number] [place] [address] [place] RBC (Bld) [#/Vol] 3.88 10*6/uL Low 4.20-6.00 [facility] Comment on above: Order Comment: Speci men Type: BLOOD SPECIMENOrdering Facility: [facility] Address: [address] [place] [address] Performed By: #### 5 7021-8 ####BROWN LABORATORYCLIA [id number] [address] [place] WBC (Bld) [#/Vol] 7.99 10*3/uL Normal 3.70-11.00 [facility] Comment on above: Order Comment: Speci men Type: BLOOD SPECIMENOrdering Facility: [facility] Address: [address] [place] [address] Performed By: #### 5 7021-8 ####BROWN LABORATORYCLIA [id number] [address] OF [facility] CONSULT PROGon 09-23-2024 CONSULT PROG Normal [facility] DIGOXIN/LANOXINon 09-23-2024 Digoxin [Mass/Vol] 1.5 ng/mL High 0.6-1.2 [facility] Comment on above: Order Comment: Jesusi men Type: BLOOD SPECIMENOrdering Facility: [facility] Address: [address] [place] [address] Result Comment: Prov ided therapeutic concentrations are based on the 2008 ESC Guidelines for the Diagnosis and Treatment of Acute and Chronic Heart Failure.Reference ranges and high/low indicator flags are provided as general guidelines only. The treating physician must determine appropriate target levels/dosing based on the specific clinical situation. Performed By: #### D IG ####BROWN LABORATORYCLIA [id number] [place] [address] [place] Hepatic function 2000 panelo n 09-23-2024 Albumin [Mass/Vol] 4.0 g/dL Normal 3.9-4.9 [facility] Comment on above: Order Comment: Speci men Type: BLOOD SPECIMENOrdering Facility: [facility] Address: [address] [place] [address] Performed By: #### 2 4325-3, 34576-1, 2776-1, 92036-7 ####BROWN LABORATORYCLIA [id number] [place] [address] [place] ALP [Catalytic activity/Vol] 104 U/L Normal 38-113 [facility] Comment on above: Order Comment: Speci men Type: BLOOD SPECIMENOrdering Facility: [facility] Address: [address] [place] [address] Performed By: #### 2 4325-3, 38869-9, 2776-1, 23411-5 ####BROWN LABORATORYCLIA [id number] [address] [place] ALT [Catalytic activity/Vol] 7 U/L Low 10-54 [facility] Comment on above: Order Comment: Speci men Type: BLOOD SPECIMENOrdering Facility: [facility] Address: [address] [place] [address] Performed By: #### 2 4325-3, 24088-1, 2776-1, 92820-8 ####BROWN LABORATORYCLIA [id number] [address] OF [facility] AST [Catalytic activity/Vol] 18 U/L Normal 14-40 [facility] Comment on above: Order Comment: Speci men Type: BLOOD SPECIMENOrdering Facility: [facility] Address: [address] [place] [address] Performed By: #### 2 4325-3, 69384-6, 2776-1, 90825-7 ####BROWN LABORATORYCLIA [id number] [place] [id number] [place] Bilirubin [Mass/Vol] 0.4 mg/dL Normal 0.2-1.3 [facility] Comment on above: Order Comment: Speci men Type: BLOOD SPECIMENOrdering Facility: [facility] Address: [address] [place], [place] [address] Performed By: #### 2 4325-3, 28339-8, 2776-1, 71883-8 ####BROWN LABORATORYCLIA [id number] [place] [address] [place] Bilirubin.conjugated [Mass/Vol] 0.1 mg/dL Normal <0.3 [facility] Comment on above: Order Comment: Speci men Type: BLOOD SPECIMENOrdering Facility: [facility] Address: [address] [place], [place] [address] Performed By: #### 2 4325-3, , 2776-07, 63929-5 ####[facility] LABORATORYCLIA [id number] [address] [place] Protein [Mass/Vol] 7.0 g/dL Normal 6.3-8.0 [facility] Comment on above: Order Comment: Speci men Type: BLOOD SPECIMENOrdering Facility: [facility] Address: [address] [place], [place] [address] Performed By: #### 2 4325-3, 52242-5, 1, 04697-9 ####BR[facility] LABORATORYCLIA [id number] [place] [address] [place] Magnesium SerPl-mCncon 09-23 Magnesium [Mass/Vol] 2.3 mg/dL Normal 1.7-2.3 [facility] Comment on above: Order Comment: Speci men Type: BLOOD SPECIMENOrdering Facility: [facility] Address: [address] [place], [place] [address] Performed By: #### 2 4325-3, 27711-1, 1, 53706-0 ####BROWN LABORATORYCLIA [id number] [place] [address] [place] NUTRITIONon 09-23-2024 NUTRITION Normal [facility] Phosphate SerPl-mCncon 09-23 Phosphate [Mass/Vol] 3.6 mg/dL Normal 2.7-4.8 [facility] Comment on above: Order Comment: Speci men Type: BLOOD SPECIMENOrdering Facility: [facility] Address: [address] [place], [place] [address] Performed By: #### 2 4325-3, 50866-6, 2777-1, 18545-5 ####PIN[facility] LABORATORYCLIA [id number] [place] [address] [place] THERAPY NTon 09-23-2024 THERAPY NT Normal [facility] THERAPY NT Normal [facility] 25(OH)D3 SerPl-mCncon 2024 25-hydroxyvitamin D3 [Mass/Vol] 27.1 ng/mL Low 31.0-80.0 [facility] Comment on above: Order Comment: Speci men Type: BLOOD SPECIMENOrdering Facility: [facility] Address: [address] [place], [place] [address] Performed By: #### 1 989-3 ####[facility] LABCLIA [id number] [place] [id number] [place] Ammonia Plas-sCncon 09-22-19 25 Ammonia (P) [Moles/Vol] 17 umol/L Normal 16-60 [facility] Comment on above: Order Comment: Speci men Type: BLOOD SPECIMENOrdering Facility: [facility] Address: [address] [place], [place] [address] Performed By: #### 1 6362-6 ####PINETOP LABORATORYCLIA [id number] [place] [id number] [place] Basic metabolic 2000 panelon 09-22-2024 Anion gap [Moles/Vol] 13 mmol/L Normal 8-15 [facility] Comment on above: Order Comment: Speci men Type: BLOOD SPECIMENOrdering Facility: [facility] Address: [address] [place] [address] Performed By: #### 2 4321-2, 82808-2, 2777-1, 43272-6 ####[facility] LABORATORYCLIA [id number] [place] [address] [place] Calcium [Mass/Vol] 9.7 mg/dL Normal 8.5-10.2 [facility] Comment on above: Order Comment: Speci men Type: BLOOD SPECIMENOrdering Facility: [facility] Address: [address] [place] [address] Performed By: #### 2 4321-2, 69336-5, 2776-1, 36344-7 ####BR[facility] LABORATORYCLIA [id number] [place] [address] [place] Chloride [Moles/Vol] 99 mmol/L Normal 98-107 [facility] Comment on above: Order Comment: Speci men Type: BLOOD SPECIMENOrdering Facility: [facility] Address: [address] [place] [address] Performed By: #### 2 4321-2, 24807-3, 2776-1, 08728-9 ####BROWN LABORATORYCLIA [id number] [place] [address] [place] CO2 [Moles/Vol] 24 mmol/L Normal 22-30 [facility] Comment on above: Order Comment: Speci men Type: BLOOD SPECIMENOrdering Facility: [facility] Address: [address] [place] [address] Performed By: #### 2 4321-2, 26583-2, 2776-1, 34691-1 ####[facility] LABORATORYCLIA [id number] [place] [address] [place] Creatinine [Mass/Vol] 1.29 mg/dL High 0.73-1.22 [facility] Comment on above: Order Comment: Speci men Type: BLOOD SPECIMENOrdering Facility: [facility] Address: [address] [place] [address] Performed By: #### 2 4321-2, 44862-6, 2776-1, 00858-5 ####BROWN LABORATORYCLIA [id number] [place] [id number] [facility] [place] Creatinine and Glomerular filtration rate.predicted panel (S/P/Bld) 60 mL/min/1.73m??? Normal >=60 [facility] Comment on above: Order Comment: Speci men Type: BLOOD SPECIMENOrdering Facility: [facility] Address: [address] [place] [address] Result Comment: Lissa mated Glomerular Filtration Rate (eGFR) is calculated using the 2020 CKD-EPI creatinine equation. This equation utilizes serum creatinine, sex, and age as parameters. The creatinine assay has traceable calibration to isotope dilution-mass spectrometry. Refer to KDIGO guidelines for clinical interpretation. In patients with unstable renal function, e.g. those with acute kidney injury, the eGFR may not accurately reflect actual GFR. Performed By: #### 2 4321-2, 30164-0, 2777-, 90797-0 ####PINETOP LABORATORYCLIA [id number] [place] [id number] [place] Glucose [Mass/Vol] 183 mg/dL High 74-99 [facility] Comment on above: Order Comment: Roldan lemons Type: BLOOD SPECIMENOrdering Facility: [facility] Address: [address] [place] [address] Result Comment: The [place] Diabetes Association (ADA) provides guidance for cutoff values for fasting glucose and random glucose. The ADA defines fasting as no caloric intake for at least 8 hours. Fasting plasma glucose results between 100 to 125 mg/dL indicate increased risk for diabetes (prediabetes).Fasting plasma glucose results greater than or equal to 126 mg/dL meet the criteria for diagnosis of diabetes. In the absence of unequivocal hyperglycemia, results should be confirmed by repeat testing. In a patient with classic symptoms of hyperglycemia or hyperglycemic crisis, random plasma glucose results greater than or equal to 200 mg/dL meet the criteria for diagnosis of diabetes.Reference: Standards of Medical Care in Diabetes 2016, [place] [employer] Association. Diabetes Care. 2016.39(Suppl 1). Performed By: #### 2 4321-2, 86085-2, 277-, 53943-2 ####PINETOP LABORATORYCLIA [id number] [place] [address] [place] Potassium [Moles/Vol] 5.0 mmol/L Normal 3.7-5.1 [facility] Comment on above: Order Comment: Roldan lemons Type: BLOOD SPECIMENOrdering Facility: [facility] Address: [address] [place] [address] Performed By: #### 2 4321-2, 22503-2, 2777-, 03028-4 ####BR[facility] LABORATORYCLIA [id number] [place] [address] [place] Sodium [Moles/Vol] 136 mmol/L Normal 136-144 [facility] Comment on above: Order Comment: Speci men Type: BLOOD SPECIMENOrdering Facility: [facility] Address: [address] [place] [address] Performed By: #### 2 4321-2, 62310-3, 2777-1, 12254-6 ####BR[facility] LABORATORYCLIA [id number] [place] [address] [place] Urea nitrogen [Mass/Vol] 28 mg/dL High 9-24 [facility] Comment on above: Order Comment: Speci men Type: BLOOD SPECIMENOrdering Facility: [facility] Address: [address] [place] [address] Performed By: #### 2 4321-2, 30879-8, 2777-1, 45016-3 ####BROWN LABORATORYCLIA [id number] [place] [address] [facility] [place] CASE MGT INIT ASSESon 2024 CASE MGT INIT [facility] CBC W Auto Differential pane l (Bld)on 09-22-2024 Basophils (Bld) [#/Vol] 10*3/uL Normal <0.11 [facility] Comment on above: Order Comment: Speci men Type: BLOOD SPECIMENOrdering Facility: [facility] Address: [address] [place] [address] Performed By: #### 5 7021-8 ####BROWN LABORATORYCLIA [id number] [place] [address] [place] Basophils/100 WBC (Bld) 0.2 % Normal [facility] Comment on above: Order Comment: Speci men Type: BLOOD SPECIMENOrdering Facility: [facility] Address: [address] [place] [address] Performed By: #### 5 7021-8 ####BROWN LABORATORYCLIA [id number] [place] [address] [place] Differential cell count method Nom (Bld) Auto Normal [facility] Comment on above: Order Comment: Speci men Type: BLOOD SPECIMENOrdering Facility: [facility] Address: [address] [place] [address] Performed By: #### 5 7021-8 ####BROWN LABORATORYCLIA [id number] [place] [address] [place] Eosinophils (Bld) [#/Vol] 10*3/uL Normal <0.46 [facility] Comment on above: Order Comment: Speci men Type: BLOOD SPECIMENOrdering Facility: [facility] Address: [address] [place] [address] Performed By: #### 5 7021-8 ####BROWN LABORATORYCLIA [id number] [address] [place] Eosinophils/100 WBC (Bld) 0.0 % Normal [facility] Comment on above: Order Comment: Speci men Type: BLOOD SPECIMENOrdering Facility: [facility] Address: [address] [place] [address] Performed By: #### 5 7021-8 ####BROWN LABORATORYCLIA [id number] [address] [place] Erythrocyte distribution width (RBC) [Ratio] 13.7 % Normal 11.5-15.0 [facility] Comment on above: Order Comment: Speci men Type: BLOOD SPECIMENOrdering Facility: [facility] Address: [address] [place] [address] Performed By: #### 5 7021-8 ####BROWN LABORATORYCLIA [id number] [address] [place] Hematocrit (Bld) [Volume fraction] 36.6 % Low 39.0-51.0 [facility] Comment on above: Order Comment: Speci men Type: BLOOD SPECIMENOrdering Facility: [facility] Address: [address] [place] [address] Performed By: #### 5 7021-8 ####BROWN LABORATORYCLIA [id number] [address] [place] Hemoglobin (Bld) [Mass/Vol] 11.7 g/dL Low 13.0-17.0 [facility] Comment on above: Order Comment: Speci men Type: BLOOD SPECIMENOrdering Facility: [facility] Address: [address] [place] [address] Performed By: #### 5 7021-8 ####BR[facility] LABORATORYCLIA [id number] [place] [address] [place] Immature granulocytes (Bld) [#/Vol] 10*3/uL Normal <0.10 [facility] Comment on above: Order Comment: Speci men Type: BLOOD SPECIMENOrdering Facility: [facility] Address: [address] [place] [address] Performed By: #### 5 7021-8 ####BROWN LABORATORYCLIA [id number] [address] Immature granulocytes/100 WBC (Bld) 0.5 % Normal [facility] Comment on above: Order Comment: Speci men Type: BLOOD SPECIMENOrdering Facility: [facility] Address: [address] [place] [address] Performed By: #### 5 7021-8 ####BROWN LABORATORYCLIA [id number] [place] [address] [place] Lymphocytes (Bld) [#/Vol] 0.30 10*3/uL Low 1.00-4.00 [facility] Comment on above: Order Comment: Speci men Type: BLOOD SPECIMENOrdering Facility: [facility] Address: [address] [place] [address] Performed By: #### 5 7021-8 ####BROWN LABORATORYCLIA [id number] [address] [place] Lymphocytes/100 WBC (Bld) 7.1 % Normal [facility] Comment on above: Order Comment: Speci men Type: BLOOD SPECIMENOrdering Facility: [facility] Address: [address] [place] [address] Performed By: #### 5 7021-8 ####BROWN LABORATORYCLIA [id number] [place] [address] [place] MCH (RBC) [Entitic mass] 28.7 pg Normal 26.0-34.0 [facility] Comment on above: Order Comment: Speci men Type: BLOOD SPECIMENOrdering Facility: [facility] Address: [address] [place] [address] Performed By: #### 5 7021-8 ####BROWN LABORATORYCLIA [id number] [address] [place] [facility] MCHC (RBC) [Mass/Vol] 32.0 g/dL Normal 30.5-36.0 [facility] Comment on above: Order Comment: Speci men Type: BLOOD SPECIMENOrdering Facility: [facility] Address: [address] [place] [address] Performed By: #### 5 7021-8 ####BROWN LABORATORYCLIA [id number] [address] MCV (RBC) [Entitic vol] 89.7 fL Normal 80.0-100.0 [facility] Comment on above: Order Comment: Speci men Type: BLOOD SPECIMENOrdering Facility: [facility] Address: [address] [place] [address] Performed By: #### 5 7021-8 ####BROWN LABORATORYCLIA [id number] [address] [place] Monocytes (Bld) [#/Vol] 0.13 10*3/uL Normal <0.87 [facility] Comment on above: Order Comment: Speci men Type: BLOOD SPECIMENOrdering Facility: [facility] Address: [address] [place] [address] Performed By: #### 5 7021-8 ####BROWN LABORATORYCLIA [id number] [address] Monocytes/100 WBC (Bld) 3.1 % Normal [facility] Comment on above: Order Comment: Speci men Type: BLOOD SPECIMENOrdering Facility: [facility] Address: [address] [place] [address] Performed By: #### 5 7021-8 ####BROWN LABORATORYCLIA [id number] [place] [address] [facility] [place] Neutrophils (Bld) [#/Vol] 3.79 10*3/uL Normal 1.45-7.50 [facility] Comment on above: Order Comment: Speci men Type: BLOOD SPECIMENOrdering Facility: [facility] Address: [address] [place] [address] Performed By: #### 5 7021-8 ####BROWN LABORATORYCLIA [id number] [place] [address] [place] Neutrophils/100 WBC (Bld) 89.1 % Normal [facility] Comment on above: Order Comment: Speci men Type: BLOOD SPECIMENOrdering Facility: [facility] Address: [address] [place] [address] Performed By: #### 5 7021-8 ####BROWN LABORATORYCLIA [id number] [place] [address] [place] Nucleated RBC (Bld) [#/Vol] 10*3/uL Normal <0.01 [facility] Comment on above: Order Comment: Speci men Type: BLOOD SPECIMENOrdering Facility: [facility] Address: [address] [place] [address] Performed By: #### 5 7021-8 ####BROWN LABORATORYCLIA [id number] [address] [place] Nucleated RBC/100 WBC (Bld) [Ratio] 0.0 /100 WBC Normal [facility] Comment on above: Order Comment: Speci men Type: BLOOD SPECIMENOrdering Facility: [facility] Address: [address] [place] [address] Performed By: #### 5 7021-8 ####BROWN LABORATORYCLIA [id number] [place] [address] [place] Platelet mean volume (Bld) [Entitic vol] 10.2 fL Normal 9.0-12.7 [facility] Comment on above: Order Comment: Speci men Type: BLOOD SPECIMENOrdering Facility: [facility] Address: [address] [place] [address] Performed By: #### 5 7021-8 ####BROWN LABORATORYCLIA [id number] [place] [address] [place] Platelets (Bld) [#/Vol] 327 10*3/uL Normal 150-400 [facility] Comment on above: Order Comment: Speci men Type: BLOOD SPECIMENOrdering Facility: [facility] Address: [address] [place] [address] Performed By: #### 5 7021-8 ####BROWN LABORATORYCLIA [id number] [place] [address] [place] RBC (Bld) [#/Vol] 4.08 10*6/uL Low 4.20-6.00 [facility] Comment on above: Order Comment: Speci men Type: BLOOD SPECIMENOrdering Facility: [facility] Address: [address] [place] [address] Performed By: #### 5 7021-8 ####BROWN LABORATORYCLIA [id number] [address] STATES OF [facility] WBC (Bld) [#/Vol] 4.25 10*3/uL Normal 3.70-11.00 [facility] Comment on above: Order Comment: Speci men Type: BLOOD SPECIMENOrdering Facility: [facility] Address: [address] [place] [address] Performed By: #### 5 7021-8 ####BROWN LABORATORYCLIA [id number] [address] [place] CONSULTon 09-22-2024 CONSULT Normal [facility] Folate SerPl-mCncon 09-22-19 25 Folate [Mass/Vol] 11.4 ng/mL Normal >4.7 [facility] Comment on above: Order Comment: Speci men Type: BLOOD SPECIMENOrdering Facility: [facility] Address: [address] [place] [address] Performed By: #### 5 0190-8, 2132-9, 2284-8 ####BROWN LABORATORYCLIA [id number] [address] Hepatic function 2000 panelo n 09-22-2024 Albumin [Mass/Vol] 4.1 g/dL Normal 3.9-4.9 [facility] Comment on above: Order Comment: Speci men Type: BLOOD SPECIMENOrdering Facility: [facility] Address: [address] [place] [address] Performed By: #### 2 4321-2, 72225-0, 7-1, 15292-3 ####BROWN LABORATORYCLIA [id number] [place] [address] [place] ALP [Catalytic activity/Vol] 118 U/L High 38-113 [facility] Comment on above: Order Comment: Speci men Type: BLOOD SPECIMENOrdering Facility: [facility] Address: [address] [place], [place] [address] [address] Performed By: #### 2 4321-2, 55026-4, 2776-1, 42130-2 ####BROWN LABORATORYCLIA [id number] [place] [address] [place] ALT [Catalytic activity/Vol] 8 U/L Low 10-54 [facility] Comment on above: Order Comment: Speci men Type: BLOOD SPECIMENOrdering Facility: [facility] Address: [address] [place] [address] [place] [address] Performed By: #### 2 4321-2, 95945-0, 2776-1, 43268-6 ####BROWN LABORATORYCLIA [id number] [address] [place] AST [Catalytic activity/Vol] 19 U/L Normal 14-40 [facility] Comment on above: Order Comment: Speci men Type: BLOOD SPECIMENOrdering Facility: [facility] Address: [address] [place] [address] [place] [address] Performed By: #### 2 4321-2, 48976-2, 2776-1, 54571-0 ####BROWN LABORATORYCLIA [id number] [place] [address] [place] Bilirubin [Mass/Vol] 0.5 mg/dL Normal 0.2-1.3 [facility] Comment on above: Order Comment: Speci men Type: BLOOD SPECIMENOrdering Facility: [facility] Address: [facility] [place] [address] Performed By: #### 2 4321-2, 56806-3, 2776-1, 53668-6 ####BROWN LABORATORYCLIA [id number] [address] Bilirubin.conjugated [Mass/Vol] 0.3 mg/dL High <0.3 [facility] Comment on above: Order Comment: Speci men Type: BLOOD SPECIMENOrdering Facility: [facility] Address: [address] [place] [address] Performed By: #### 2 4321-2, 20454-7, 2777-1, 32477-0 ####BROWN LABORATORYCLIA [id number] [place] [id number] [facility] Protein [Mass/Vol] 7.4 g/dL Normal 6.3-8.0 [facility] Comment on above: Order Comment: Speci men Type: BLOOD SPECIMENOrdering Facility: [facility] Address: [address] [place] [address] Performed By: #### 2 4321-2, 17926-2, 2777-1, 46197-9 ####BROWN LABORATORYCLIA [id number] [address] [employer] binding capaci ty panelon 09-22-2024 Iron [Mass/Vol] 32 ug/dL Low 41-186 [facility] Comment on above: Order Comment: Speci men Type: BLOOD SPECIMENOrdering Facility: [facility] Address: [address] [place] [address] Performed By: #### 5 0190-8, 2132-03, 2284-02 ####BROWN LABORATORYCLIA [id number] [address] [place] Iron binding capacity [Mass/Vol] 357 ug/dL Normal 232-386 [facility] Comment on above: Order Comment: Speci men Type: BLOOD SPECIMENOrdering Facility: [facility] Address: [address] [place] [address] Performed By: #### 5 0190-8, 2132-03, 2284-02 ####BROWN LABORATORYCLIA [id number] [place] [id number] [facility] Iron/TIBC [Molar ratio] 9.0 % Low 15.0-57.0 [facility] Comment on above: Order Comment: Speci men Type: BLOOD SPECIMENOrdering Facility: [facility] Address: [address] [place] [address] Performed By: #### 5 0190-8, 2132-9, 2284-8 ####PINETOP LABORATORYCLIA [id number] [place] [address] [facility] [place] Magnesium SerPl-mCncon 09-22 Magnesium [Mass/Vol] 2.5 mg/dL High 1.7-2.3 [facility] Comment on above: Order Comment: Speci men Type: BLOOD SPECIMENOrdering Facility: [facility] Address: [address] [place] [address] Performed By: #### 2 4321-2, 72900-1, 2777-1, 88661-8 ####PINETOP LABORATORYCLIA [id number] [address] [place] NURSING PROGon 09-22-2024 NURSING PROG Normal [facility] PHOSPHATIDYLETHANOL (PETH)on 09-22-2024 EER PETH See Note Normal [facility] Comment on above: Order Comment: Speci men Type: BLOOD SPECIMENOrdering Facility: [facility] Address: [address] [place] [address] Result Comment: Auth orized individuals can access the [employer] Enhanced Reportwith an [employer] Connect account using the following link.Your local lab can assist you in obtaining the patientreport if you don't have a Connect account.[email or web address] Performed By: #### P ETH ####[facility]ORATORIESCLIA [id number] [place] [address] PET 16:0/18.2 (PLPETH) 820 ng/mL Normal [facility] Comment on above: Order Comment: Speci men Type: BLOOD SPECIMENOrdering Facility: [facility] Address: [address] [place] [address] Result Comment: Refe rence ranges are not well established. Performed By: #### P ETH ####[facility] LABORATORIESCLIA [id number] [place] [address] PETH 16:0/18:1 (POPETH) 619 ng/mL [facility] Comment on above: Order Comment: Speci men Type: BLOOD SPECIMENOrdering Facility: [facility] Address: [address] [place] [address] Result Comment: PEth 16:0/18:1 (POPEth)Less than 10 ng/mL............Not detectedLess than 20 ng/mL............Abstinence or light [id number] - 200 ng/mL................Moderate alcohol consumptionGreater than 200 ng/mL........Heavy alcohol consumption or chronicalcohol use(Reference: Anjel Robertson and Ty Soria 2018 J. Forensic Sci) Performed By: #### P ETH ####[facility] [id number] [place] [address] PETH INTERPRETATION See Comment [facility] Comment on above: Order Comment: Speci men Type: BLOOD SPECIMENOrdering Facility: [facility] Address: [address] [place] [address] Result Comment: Phos phatidylethanol (PEth) is a group of phospholipids formed inthe presence of ethanol, phospholipase D and phosphatidylcholine.PEth is known to be a direct alcohol biomarker. The predominantPEth homologues are PEth 16:0/18:1 (POPEth) and PEth 16:0/18:2(PLPEth), which account for 37-46% and 26-28% of the total PEthhomologues, respectively. PEth is incorporated into thephospholipid membrane of red blood cells and has a generalhalf-life of 4-10 days and a window of detection of 2-4 weeks.However, the window of detection is longer in individuals whochronically or excessively consume alcohol. The limit ofquantification is 10 ng/mL. Serial monitoring of PEth may behelpful in monitoring alcohol abstinence over time. PEth resultsshould be interpreted in the context of the patient's clinical andbehavioral history.Patients with advanced liver disease may have falsely elevatedPEth concentrations (Cathy TOLENTINO et al 2018, Alcoholism Clinical &Experimental Research).This test was developed and its performance characteristicsdetermined by [facility]. It has not been cleared orapproved by the U.S. Food and Drug Administration. This test wasperformed in a CLIA-certified laboratory and is intended forclinical purposes.Performed By: [facility] [place], [place] [email or web address] Director: Thierry Boyd MD, PhDCLIA Number: [id number] Performed By: #### P ETH ####[facility] CENTERCLIA [id number] [place] [address] Phosphate SerPl-ncon 09-22 Phosphate [Mass/Vol] 4.9 mg/dL High 2.7-4.8 [facility] Comment on above: Order Comment: Speci men Type: BLOOD SPECIMENOrdering Facility: [facility] Address: [address] [place] [address] Performed By: #### 2 4321-2, 85385-5, 2777-1, 69119-3 ####PIN[facility]OP LABORATORYCLIA [id number] [place] [id number] [place] THERAPY NTon 09-22-2024 THERAPY NT Normal [facility] THERAPY NT Normal [facility] Vit B12 SerPl-mCncon 025 Cobalamin (Vitamin B12) [Mass/Vol] 430 pg/mL Normal 232-1245 [facility] Comment on above: Order Comment: Speci [facility] Type: BLOOD SPECIMENOrdering Facility: [facility] Address: [address] [place] [address] Performed By: #### 5 0190-8, 2132-9, 2284-8 ####PINETOP LABORATORYCLIA [id number] [address] OF [place] B-HYDROXYBUTYRATEon 09-21-19 25 Beta hydroxybutyrate [Moles/Vol] 0.16 mmol/L Normal <0.28 [facility] Comment on above: Order Comment: Speci [facility] Type: BLOOD SPECIMENOrdering Facility: [facility] Address: [address] [place] [address] Performed By: #### 3 016-3, BHB, 63637-7, 46587-0 ####BROWN LABORATORYCLIA [id number] [place] [address] [place] Basic metabolic 2000 panelon 09-21-2024 Anion gap [Moles/Vol] 13 mmol/L Normal 8-15 [facility] Comment on above: Order Comment: Speci men Type: BLOOD SPECIMENOrdering Facility: [facility] Address: [address] [place], [place] [address] [address] Performed By: #### 3 016-3, BHB, 74487-4, 12892-2 ####BROWN LABORATORYCLIA [id number] [place] [address] [place] Calcium [Mass/Vol] 9.7 mg/dL Normal 8.5-10.2 [facility] Comment on above: Order Comment: Speci men Type: BLOOD SPECIMENOrdering Facility: [facility] Address: [address] [place] [address] Performed By: #### 3 016-3, [facility], 83855-8, 35644-4 ####BROWN LABORATORYCLIA [id number] [place] [address] [place] Chloride [Moles/Vol] 101 mmol/L Normal 98-107 [facility] Comment on above: Order Comment: Speci men Type: BLOOD SPECIMENOrdering Facility: [facility] Address: [facility] [place] [address] Performed By: #### 3 016-3, B, 22029-6, 33092-9 ####BROWN LABORATORYCLIA [id number] [place] [address] [place] CO2 [Moles/Vol] 23 mmol/L Normal 22-30 [facility] Comment on above: Order Comment: Speci men Type: BLOOD SPECIMENOrdering Facility: [facility] Address: [address] [place], [place] [address] [address] Performed By: #### 3 016-3, BHB, 17526-0, 95906-1 ####BROWN LABORATORYCLIA [id number] [place] [id number] [place] Creatinine [Mass/Vol] 1.13 mg/dL Normal 0.73-1.22 [facility] Comment on above: Order Comment: Roldan lemons Type: BLOOD SPECIMENOrdering Facility: [facility] Address: [address] [place] [address] Performed By: #### 3 016-3, UNA, 63795-7, 46456-7 ####BROWN LABORATORYCLIA [id number] [place] [id number] [place] Creatinine and Glomerular filtration rate.predicted panel (S/P/Bld) 71 mL/min/1.73m??? Normal >=60 [facility] Comment on above: Order Comment: Roldan lemons Type: BLOOD SPECIMENOrdering Facility: [facility] Address: [address] [place] [address] Result Comment: Lissa mated Glomerular Filtration Rate (eGFR) is calculated using the 2020 CKD-EPI creatinine equation. This equation utilizes serum creatinine, sex, and age as parameters. The creatinine assay has traceable calibration to isotope dilution-mass spectrometry. Refer to KDIGO guidelines for clinical interpretation. In patients with unstable renal function, e.g. those with acute kidney injury, the eGFR may not accurately reflect actual GFR. Performed By: #### 3 016-3, UNA, 05963-4, 56844-7 ####BROWN LABORATORYCLIA [id number] [place] [id number] [place] Glucose [Mass/Vol] 132 mg/dL High 74-99 [facility] Comment on above: Order Comment: Roldan lemons Type: BLOOD SPECIMENOrdering Facility: [facility] Address: [address] [place] [address] Result Comment: The [place] Diabetes Association (ADA) provides guidance for cutoff values for fasting glucose and random glucose. The ADA defines fasting as no caloric intake for at least 8 hours. Fasting plasma glucose results between 100 to 125 mg/dL indicate increased risk for diabetes (prediabetes).Fasting plasma glucose results greater than or equal to 126 mg/dL meet the criteria for diagnosis of diabetes. In the absence of unequivocal hyperglycemia, results should be confirmed by repeat testing. In a patient with classic symptoms of hyperglycemia or hyperglycemic crisis, random plasma glucose results greater than or equal to 200 mg/dL meet the criteria for diagnosis of diabetes.Reference: Standards of Medical Care in Diabetes 2016, [place] Diabetes Association. Diabetes Care. 2016.39(Suppl 1). Performed By: #### 3 016-3, [place], 77163-6, 35264-6 ####BROWN LABORATORYCLIA [id number] [place] [address] [place] Potassium [Moles/Vol] 4.8 mmol/L Normal 3.7-5.1 [facility] Comment on above: Order Comment: Roldan lemons Type: BLOOD SPECIMENOrdering Facility: [facility] Address: [address] [place] [address] Performed By: #### 3 016-3, [place], 35453-4, 26341-6 ####BROWN LABORATORYCLIA [id number] [address] [place] Sodium [Moles/Vol] 137 mmol/L Normal 136-144 [facility] Comment on above: Order Comment: Roldan lemons Type: BLOOD SPECIMENOrdering Facility: [facility] Address: [address] [place] [address] Performed By: #### 3 016-3, [facility], 02942-1, 66054-9 ####BROWN LABORATORYCLIA [id number] [place] [address] [place] Urea nitrogen [Mass/Vol] 22 mg/dL Normal 9-24 [facility] Comment on above: Order Comment: Roldan lemons Type: BLOOD SPECIMENOrdering Facility: [facility] Address: [address] [place] [address] Performed By: #### 3 016-3, [facility], 03494-2, 41664-1 ####BROWN LABORATORYCLIA [id number] [place] [address] [place] CASE MANAGEMon 09-21-2024 CASE MANAGEM Normal [facility] CBC W Auto Differential pane l (Bld)on 09-21-2024 Basophils (Bld) [#/Vol] 0.05 10*3/uL Normal <0.11 [facility] Comment on above: Order Comment: Roldan lemons Type: BLOOD SPECIMENOrdering Facility: [facility] Address: [address] [place] [address] Performed By: #### 5 7021-8 ####BROWN LABORATORYCLIA [id number] [place] [address] [place] Basophils/100 WBC (Bld) 1.0 % Normal [facility] Comment on above: Order Comment: Speci men Type: BLOOD SPECIMENOrdering Facility: [facility] Address: [address] [place] [address] Performed By: #### 5 7021-8 ####BROWN LABORATORYCLIA [id number] [place] [address] [place] Differential cell count method Nom (Bld) Auto Normal [facility] Comment on above: Order Comment: Speci men Type: BLOOD SPECIMENOrdering Facility: [facility] Address: [address] [place] [address] Performed By: #### 5 7021-8 ####BROWN LABORATORYCLIA [id number] [place] [address] [place] Eosinophils (Bld) [#/Vol] 0.05 10*3/uL Normal <0.46 [facility] Comment on above: Order Comment: Speci men Type: BLOOD SPECIMENOrdering Facility: [facility] Address: [address] [place] [address] Performed By: #### 5 7021-8 ####BROWN LABORATORYCLIA [id number] [address] [place] Eosinophils/100 WBC (Bld) 1.0 % Normal [facility] Comment on above: Order Comment: Speci men Type: BLOOD SPECIMENOrdering Facility: [facility] Address: [address] [place] [address] Performed By: #### 5 7021-8 ####BROWN LABORATORYCLIA [id number] [place] [address] [place] Erythrocyte distribution width (RBC) [Ratio] 13.8 % Normal 11.5-15.0 [facility] Comment on above: Order Comment: Speci men Type: BLOOD SPECIMENOrdering Facility: [facility] Address: [address] [place] [address] Performed By: #### 5 7021-8 ####BROWN LABORATORYCLIA [id number] [place] [address] [place] [facility] [place] Hematocrit (Bld) [Volume fraction] 32.0 % Low 39.0-51.0 [facility] Comment on above: Order Comment: Speci men Type: BLOOD SPECIMENOrdering Facility: [facility] Address: [address] [place] [address] Performed By: #### 5 7021-8 ####BROWN LABORATORYCLIA [id number] [place] [address] [place] Hemoglobin (Bld) [Mass/Vol] 10.4 g/dL Low 13.0-17.0 [facility] Comment on above: Order Comment: Speci men Type: BLOOD SPECIMENOrdering Facility: [facility] Address: [address] [place] [address] Performed By: #### 5 7021-8 ####BROWN LABORATORYCLIA [id number] [place] [address] [place] Immature granulocytes (Bld) [#/Vol] 10*3/uL Normal <0.10 [facility] Comment on above: Order Comment: Speci men Type: BLOOD SPECIMENOrdering Facility: [facility] Address: [address] [place] [address] Performed By: #### 5 7021-8 ####BROWN LABORATORYCLIA [id number] [address] [place] Immature granulocytes/100 WBC (Bld) 0.4 % Normal [facility] Comment on above: Order Comment: Speci men Type: BLOOD SPECIMENOrdering Facility: [facility] Address: [address] [place] [address] Performed By: #### 5 7021-8 ####BROWN LABORATORYCLIA [id number] [place] [address] [place] [facility] [place] Lymphocytes (Bld) [#/Vol] 0.33 10*3/uL Low 1.00-4.00 [facility] Comment on above: Order Comment: Speci men Type: BLOOD SPECIMENOrdering Facility: [facility] Address: [address] [place] [address] Performed By: #### 5 7021-8 ####BROWN LABORATORYCLIA [id number] [address] Lymphocytes/100 WBC (Bld) 6.7 % Normal [facility] Comment on above: Order Comment: Speci men Type: BLOOD SPECIMENOrdering Facility: [facility] Address: [address] [place] [address] Performed By: #### 5 7021-8 ####BROWN LABORATORYCLIA [id number] [address] MCH (RBC) [Entitic mass] 28.7 pg Normal 26.0-34.0 [facility] Comment on above: Order Comment: Speci men Type: BLOOD SPECIMENOrdering Facility: [facility] Address: [address] [place] [address] Performed By: #### 5 7021-8 ####BROWN LABORATORYCLIA [id number] [address] MCHC (RBC) [Mass/Vol] 32.5 g/dL Normal 30.5-36.0 [facility] Comment on above: Order Comment: Speci men Type: BLOOD SPECIMENOrdering Facility: [facility] Address: [address] [place] [address] Performed By: #### 5 7021-8 ####BROWN LABORATORYCLIA [id number] [address] MCV (RBC) [Entitic vol] 88.4 fL Normal 80.0-100.0 [facility] Comment on above: Order Comment: Speci men Type: BLOOD SPECIMENOrdering Facility: [facility] Address: [address] [place] [address] Performed By: #### 5 7021-8 ####BROWN LABORATORYCLIA [id number] [address] Monocytes (Bld) [#/Vol] 0.53 10*3/uL Normal <0.87 [facility] Comment on above: Order Comment: Speci men Type: BLOOD SPECIMENOrdering Facility: [facility] Address: [address] [place] [address] Performed By: #### 5 7021-8 ####BROWN LABORATORYCLIA [id number] [place] [address] [place] Monocytes/100 WBC (Bld) 10.8 % Normal [facility] Comment on above: Order Comment: Speci men Type: BLOOD SPECIMENOrdering Facility: [facility] Address: [address] [place] [address] Performed By: #### 5 7021-8 ####BROWN LABORATORYCLIA [id number] [place] [address] [place] Neutrophils (Bld) [#/Vol] 3.91 10*3/uL Normal 1.45-7.50 [facility] Comment on above: Order Comment: Speci men Type: BLOOD SPECIMENOrdering Facility: [facility] Address: [address] [place] [address] Performed By: #### 5 7021-8 ####BROWN LABORATORYCLIA [id number] [place] [address] [place] Neutrophils/100 WBC (Bld) 80.1 % Normal [facility] Comment on above: Order Comment: Speci men Type: BLOOD SPECIMENOrdering Facility: [facility] Address: [address] [place] [address] Performed By: #### 5 7021-8 ####BROWN LABORATORYCLIA [id number] [place] [address] [place] Nucleated RBC (Bld) [#/Vol] 10*3/uL Normal <0.01 [facility] Comment on above: Order Comment: Speci men Type: BLOOD SPECIMENOrdering Facility: [facility] Address: [address] [place] [address] Performed By: #### 5 7021-8 ####BROWN LABORATORYCLIA [id number] [place] [address] [place] Nucleated RBC/100 WBC (Bld) [Ratio] 0.0 /100 WBC Normal [facility] Comment on above: Order Comment: Speci men Type: BLOOD SPECIMENOrdering Facility: [facility] Address: [address] [place] [id number] Performed By: #### 5 7021-8 ####BROWN LABORATORYCLIA [id number] [place] [id number] [place] Platelet mean volume (Bld) [Entitic vol] 9.8 fL Normal 9.0-12.7 [facility] Comment on above: Order Comment: Speci men Type: BLOOD SPECIMENOrdering Facility: [facility] Address: [facility] [place] [address] Performed By: #### 5 7021-8 ####BROWN LABORATORYCLIA [id number] [place] [id number] [place] Platelets (Bld) [#/Vol] 320 10*3/uL Normal 150-400 [facility] Comment on above: Order Comment: Speci men Type: BLOOD SPECIMENOrdering Facility: [facility] Address: [facility] [place] [address] Performed By: #### 5 7021-8 ####BROWN LABORATORYCLIA [id number] [place] [address] [place] RBC (Bld) [#/Vol] 3.62 10*6/uL Low 4.20-6.00 [facility] Comment on above: Order Comment: Speci men Type: BLOOD SPECIMENOrdering Facility: [facility] Address: [facility] [place] [address] Performed By: #### 5 7021-8 ####BROWN LABORATORYCLIA [id number] [place] [id number] [place] WBC (Bld) [#/Vol] 4.89 10*3/uL Normal 3.70-11.00 [facility] Comment on above: Order Comment: Speci men Type: BLOOD SPECIMENOrdering Facility: [facility] Address: [facility] [place] [address] Performed By: #### 5 7021-8 ####BROWN LABORATORYCLIA [id number] [place] [id number] [place] CONSULTon 09-21-2024 CONSULT Normal [facility] ED NOTEon 09-21-2024 ED NOTE HNO ID: [id number] Author: DANNA SAWANT, RN Service: Emergency Medicine Author Type: Registered Nurse Type: ED Notes Filed: 09/21/2024 02:40 Note Text: Pt left with transport squad to go to [facility], calm and cooperative. [facility] ED NOTE HNO ID: [id number] Author: DANNA SAWANT, RN Service: Emergency Medicine Author Type: Registered Nurse Type: ED Notes Filed: 09/21/2024 02:23 Note Text: [facility] here, chart and report provided. [facility] ED NOTE HNO ID: [id number] Author: DANNA SAWANT, RN Service: Emergency Medicine Author Type: Registered Nurse Type: ED Notes Filed: 09/21/2024 01:10 Note Text: Pt resting on cart with eyes closed, no distress noted, resps even non labored. [facility] ED NOTE HNO ID: [id number] Author: JENNY WOLFE RN Service: Emergency Medicine Author Type: Registered Nurse Type: ED Notes Filed: 09/21/2024 00:45 Note Text: ----- Summary: Bed Assignment/Transport ETA ----- Received Bed Assignment: Accepting Hospital: [facility] Accepting Physician: Dr. Soler Bed Assignment: [address] [place], 233-1 Nurse Report: [phone] [facility] ETA 90-120 minutes. [facility] ED NOTE HNO ID: [id number] Author: DANNA SAWANT, RN Service: Emergency Medicine Author Type: Registered Nurse Type: ED Notes Filed: 09/21/2024 00:49 Note Text: Pt got up and out of the bed at the foot of the bed and attempted to use urinal, pt voided all over bed linens and self. Bed changed, pt's outfit changed. Dr. Bradley to bedside to inform pt of transfer. Normal [facility] HISTORY PHYSICALon HISTORY PHYSICAL Normal [facility] HbA1c (Bld)on 09-21-2024 Average glucose Estimated from glycated hemoglobin (Bld) [Mass/Vol] 97 mg/dL Normal [facility] Comment on above: Order Comment: Speci men Type: BLOOD SPECIMENOrdering Facility: [facility] Address: [address] [place] [address] Result Comment: eAG: (Estimated average glucose) is a calculated value from HgbA1c and is sales representative [employer] of the average blood glucose level in the last 2-3 month period. Performed By: #### 5 5454-3 ####[facility] LABCLIA [id number] [place] [address] [place] HbA1c (Bld) [Mass fraction] 5.0 % Normal 4.3-5.6 [facility] Comment on above: Order Comment: Roldan lemons Type: BLOOD SPECIMENOrdering Facility: [facility] Address: [address] [place] [address] Result Comment: [place] Diabetes Association guidelines indicate that patients with HgbA1c in the range 5.7-6.4% are at increased risk for development of diabetes, and intervention by lifestyle modification may be beneficial. HgbA1c greater or equal to 6.5% is considered diagnostic of diabetes. Performed By: #### 5 5454-3 ####[facility] LABCLIA [id number] [place] [address] [place] Hepatic function 2000 panelo n 09-21-2024 Albumin [Mass/Vol] 4.0 g/dL Normal 3.9-4.9 [facility] Comment on above: Order Comment: Roldan lemons Type: BLOOD SPECIMENOrdering Facility: [facility] Address: [address] [place] [address] Performed By: #### 3 016-3, BHB, 75667-2, 15222-4 ####BROWN LABORATORYCLIA [id number] [address] STATES OF [facility] ALP [Catalytic activity/Vol] 108 U/L Normal 38-113 [facility] Comment on above: Order Comment: Speci men Type: BLOOD SPECIMENOrdering Facility: [facility] Address: [address] [place] [address] Performed By: #### 3 016-3, [facility], 54002-8, 70387-6 ####BROWN LABORATORYCLIA [id number] [place] [address] [place] ALT [Catalytic activity/Vol] 8 U/L Low 10-54 [facility] Comment on above: Order Comment: Speci men Type: BLOOD SPECIMENOrdering Facility: [facility] Address: [address] [place] [address] Performed By: #### 3 016-3, [facility], 40341-7, 78536-1 ####BROWN LABORATORYCLIA [id number] [address] STATES [facility] AST [Catalytic activity/Vol] 20 U/L Normal 14-40 [facility] Comment on above: Order Comment: Speci men Type: BLOOD SPECIMENOrdering Facility: [facility] Address: [address] [place] [address] Performed By: #### 3 016-3, [facility], 02503-0, 50675-0 ####BROWN LABORATORYCLIA [id number] [address] [place] Bilirubin [Mass/Vol] 0.3 mg/dL Normal 0.2-1.3 [facility] Comment on above: Order Comment: Speci men Type: BLOOD SPECIMENOrdering Facility: [facility] Address: [address] [place] [address] Performed By: #### 3 016-3, [facility], 04143-9, 76596-0 ####BROWN LABORATORYCLIA [id number] [address] Bilirubin.conjugated [Mass/Vol] 0.1 mg/dL Normal <0.3 [facility] Comment on above: Order Comment: Speci men Type: BLOOD SPECIMENOrdering Facility: [facility] Address: [address] [place] [address] Performed By: #### 3 016-3, [place], 25361-0, 71588-7 ####PINETOP LABORATORYCLIA [id number] [place] [address] [place] Protein [Mass/Vol] 7.2 g/dL Normal 6.3-8.0 [facility] Comment on above: Order Comment: Speci men Type: BLOOD SPECIMENOrdering Facility: [facility] Address: [address] [place] [address] Performed By: #### 3 016-3, [facility], 86949-3, ####PINETOP LABORATORYCLIA [id number] [place] [address] [place] Magnesium SerPl-mCncon 09-21 Magnesium [Mass/Vol] 2.4 mg/dL High 1.7-2.3 [facility] Comment on above: Order Comment: Speci men Type: BLOOD SPECIMENOrdering Facility: [facility] Address: [address] [place] [address] Performed By: #### 2 777-1, ####PINETOP LABORATORYCLIA [id number] [place] [address] [place] NUTRITIONon 09-21-2024 NUTRITION Normal [facility] Phosphate SerPl-mCncon 09-21 Phosphate [Mass/Vol] 3.9 mg/dL Normal 2.7-4.8 [facility] Comment on above: Order Comment: Speci men Type: BLOOD SPECIMENOrdering Facility: [facility] Address: [address] [place] [address] Performed By: #### 2 777-1, ####PINETOP LABORATORYCLIA [id number] [place] [address] [place] THERAPY NTon 09-21-2024 THERAPY NT Normal [facility] TSH SerPl-aCncon 09-21-2024 TSH Qn 3.010 m[IU]/L Normal 0.270-4.200 [facility] Comment on above: Order Comment: Speci men Type: BLOOD SPECIMENOrdering Facility: [facility] Address: [address] [place], [place] [address] Performed By: #### 3 016-3, B, 02761-7, 77954-6 ####PINETOP LABORATORYCLIA [id number] [place] [address] [place] Basic metabolic 2000 panelon 09-20-2024 Anion gap [Moles/Vol] 15 mmol/L Normal 8-15 [facility] Comment on above: Order Comment: Speci men Type: BLOOD SPECIMEN [facility] Address: [address] [place] [address] Performed By: #### 1 9123-9, 92524-8 #### [facility] CLIA [id number] [address] [place] [address] [place] Calcium [Mass/Vol] 9.1 mg/dL Normal 8.5-10.2 [facility] Comment on above: Order Comment: Speci men Type: BLOOD SPECIMEN [facility] Address: [address] [place], [place] [address] Performed By: #### 1 9123-9, 98821-6 #### [facility] CLIA [id number] [address] [place] [address] [place] Chloride [Moles/Vol] 100 mmol/L Normal 98-107 [facility] Comment on above: Order Comment: Speci men Type: BLOOD SPECIMEN [facility] Address: [address] [place] [id number] Performed By: #### 1 9123-9, 67852-0 #### [facility] CLIA [id number] [address] [place] [address] [place] CO2 [Moles/Vol] 21 mmol/L Low 22-30 [facility] Comment on above: Order Comment: Speci men Type: BLOOD SPECIMEN [facility] Address: [address] [place], [place] [address] Performed By: #### 1 9123-9, 97424-4 #### [facility] CLIA [id number] [address] [place] [address] [place] Creatinine [Mass/Vol] 1.33 mg/dL High 0.73-1.22 [facility] Comment on above: Order Comment: Roldan lemons Type: BLOOD SPECIMEN Ordering Facility: [facility] Address: [address] [place] [address] Performed By: #### 1 9123-9, 71280-1 #### [facility] CLIA [id number] [address] [place] [address] [facility] Creatinine and Glomerular filtration rate.predicted panel (S/P/Bld) 58 mL/min/1.73m??? Low >=60 [facility] Comment on above: Order Comment: Roldan lemons Type: BLOOD SPECIMEN Ordering Facility: [facility] Address: [address] [place] [address] Result Comment: Lissa mated Glomerular Filtration Rate (eGFR) is calculated using the 2020 CKD-EPI creatinine equation. This equation utilizes serum creatinine, sex, and age as parameters. The creatinine assay has traceable calibration to isotope dilution-mass spectrometry. Refer to KDIGO guidelines for clinical interpretation. In patients with unstable renal function, e.g. those with acute kidney injury, the eGFR may not accurately reflect actual GFR. Performed By: #### 1 9123-9, 77087-1 #### [facility] CLIA [id number] [address] [place] [address] [place] Glucose [Mass/Vol] 67 mg/dL Low 74-99 [facility] Comment on above: Order Comment: Roldan lemons Type: BLOOD SPECIMEN Ordering Facility: [facility] Address: [address] [place] [address] Result Comment: The [place] Diabetes Association (ADA) provides guidance for cutoff values for fasting glucose and random glucose. The ADA defines fasting as no caloric intake for at least 8 hours. Fasting plasma glucose results between 100 to 125 mg/dL indicate increased risk for diabetes (prediabetes). Fasting plasma glucose results greater than or equal to 126 mg/dL meet the criteria for diagnosis of diabetes. In the absence of unequivocal hyperglycemia, results should be confirmed by repeat testing. In a patient with classic symptoms of hyperglycemia or hyperglycemic crisis, random plasma glucose results greater than or equal to 200 mg/dL meet the criteria for diagnosis of diabetes. Reference: Standards of Medical Care in Diabetes 2016, [place] Diabetes Association. Diabetes Care. 2016.39(Suppl 1). Performed By: #### 1 9123-9, 09898-0 #### [employer] [facility] [place] [facility] CLIA [id number] [address] [place] [address] [place] Potassium [Moles/Vol] 4.7 mmol/L Normal 3.7-5.1 [facility] Comment on above: Order Comment: Roldan lemons Type: BLOOD SPECIMEN Ordering Facility: [facility] Address: [address] [place] [address] Performed By: #### 1 9123-9, 95786-9 #### [facility] CLIA [id number] [address] STATES OF [facility] Sodium [Moles/Vol] 136 mmol/L Normal 136-144 [facility] Comment on above: Order Comment: Roldan lemons Type: BLOOD SPECIMEN Ordering Facility: [facility] Address: [address] [place] [address] Performed By: #### 1 91239, 31702-7 #### [facility] CLIA [id number] [address] [place] [address] [place] [facility] Urea nitrogen [Mass/Vol] 24 mg/dL Normal 9-24 [facility] Comment on above: Order Comment: Speci men Type: BLOOD SPECIMEN Ordering Facility: [facility] Address: [address] [place] [address] Performed By: #### 1 91239, 09933-5 #### [facility] [place] [facility] CLIA [id number] [address] [place], [place] [address] [place] [address] [place] CBC panel Auto (Bld)on 09-20 Erythrocyte distribution width (RBC) [Ratio] 13.6 % Normal 11.5-15.0 [facility] Comment on above: Order Comment: Speci men Type: BLOOD SPECIMEN Ordering Facility: [facility] Address: [address] [place] [address] Performed By: #### 5 8410-2 #### [facility] [place] [facility] CLIA [id number] [address] [place] [id number] [place] [address] [place] Hematocrit (Bld) [Volume fraction] 32.2 % Low 39.0-51.0 [facility] Comment on above: Order Comment: Speci men Type: BLOOD SPECIMEN Ordering Facility: [facility] Address: [address] [place] [address] Performed By: #### 5 8410-2 #### [facility] [place] [facility] CLIA [id number] [address] [place] Hemoglobin (Bld) [Mass/Vol] 10.4 g/dL Low 13.0-17.0 [facility] Comment on above: Order Comment: Speci men Type: BLOOD SPECIMEN Ordering Facility: [facility] Address: [address] [place] [address] Performed By: #### 5 8410-2 #### [facility] [place] [facility] CLIA [id number] [address] [place] [address] [place] MCH (RBC) [Entitic mass] 28.8 pg Normal 26.0-34.0 [facility] Comment on above: Order Comment: Speci men Type: BLOOD SPECIMEN Ordering Facility: [facility] Address: [address] [place] [address] Performed By: #### 5 8410-2 #### [facility] [place] [facility] CLIA [id number] [address] [place] [address] [place] MCHC (RBC) [Mass/Vol] 32.3 g/dL Normal 30.5-36.0 [facility] Comment on above: Order Comment: Speci men Type: BLOOD SPECIMEN Ordering Facility: [facility] Address: [address] [place] [address] Performed By: #### 5 8410-2 #### [facility] [place] [facility] CLIA [id number] [address] [place] [address] [place] MCV (RBC) [Entitic vol] 89.2 fL Normal 80.0-100.0 [facility] Comment on above: Order Comment: Speci men Type: BLOOD SPECIMEN Ordering Facility: [facility] Address: [address] [place] [address] Performed By: #### 5 8410-2 #### [facility] [place] [facility] CLIA [id number] [address] [place] [address] [place] Platelet mean volume (Bld) [Entitic vol] 9.6 fL Normal 9.0-12.7 [facility] Comment on above: Order Comment: Speci men Type: BLOOD SPECIMEN Ordering Facility: [facility] Address: [address] [place] [address] Performed By: #### 5 8410-2 #### [facility] [place] [facility] CLIA [id number] [address] [place] [address] [place] Platelets (Bld) [#/Vol] 322 10*3/uL Normal 150-400 [facility] Comment on above: Order Comment: Speci men Type: BLOOD SPECIMEN Ordering Facility: [facility] Address: [address] [place] [address] Performed By: #### 5 8410-2 #### [facility] CLIA [id number] [address] [place] [address] [place] RBC (Bld) [#/Vol] 3.61 10*6/uL Low 4.20-6.00 [facility] Comment on above: Order Comment: Speci men Type: BLOOD SPECIMEN Ordering Facility: [facility] Address: [address] [place] [address] Performed By: #### 5 8410-2 #### [facility] [place] [facility] CLIA [id number] [address] [place] [address] [place] WBC (Bld) [#/Vol] 5.82 10*3/uL Normal 3.70-11.00 [facility] Comment on above: Order Comment: Speci men Type: BLOOD SPECIMEN Ordering Facility: [facility] Address: [address] [id number] Performed By: #### 5 8410-2 #### [facility] CLIA [id number] [address] [place], [place] [id number] [place] [facility] CT BRAIN WO IVCONon 09-20-19 CT BRAIN WO IVCON * * *Final Report* * * DATE OF EXAM: Sep 20 2024 5:44PM [facility] 0504 - CT BRAIN WO IVCON / PROCEDURE REASON: Mental status change, unknown cause * * * * Physician Interpretation * * * * EXAMINATION: CT BRAIN WO IVCON CLINICAL HISTORY: Change in mental status TECHNIQUE: Serial axial images without IV contrast were obtained from the vertex to the foramen magnum. MQ: CTBWO_3 CT Radiation dose: Integrated Dose-Length Product (DLP) for this visit = 795.52 mGy*cm CT Dose Reduction Employed: No dose reduction techniques were required COMPARISON: None. RESULT: Localizer images: No additional findings. Post-operative change: None. Acute change: No evidence of an acute infarct or other acute parenchymal process. Hemorrhage: No evidence of acute intracranial hemorrhage. ECASS hemorrhagic transformation score: Not Applicable Mass Lesion / Mass Effect: There is no evidence of an intracranial mass or extraaxial fluid collection. No significant mass effect. Chronic change: Scattered patchy foci of low attenuation are present within the supratentorial white matter, a nonspecific finding that most commonly represents mild small vessel disease. Parenchyma: There is mild generalized volume loss. Ventricles: Ventricular enlargement concordant with the degree of parenchymal volume loss. Paranasal sinuses and skull base: The visualized paranasal sinuses are grossly clear. The skull base and imaged soft tissues are unremarkable. IMPRESSION: No CT evidence of acute intracranial pathology. Medical Staff Services Coordinator: PSCB Transcribe Date/Time: Sep 20 2024 5:53P Dictated by : CHETAN KHALIL MD This examination was interpreted and the report reviewed and electronically signed by: CHETAN KHALIL MD on Sep 20 2024 5:56PM EST [id number] Normal [facility] Comprehensive metabolic 2000 panelon 09-20-2024 Albumin [Mass/Vol] 4.5 g/dL Normal 3.9-4.9 [facility] Comment on above: Order Comment: Speci men Type: BLOOD SPECIMEN Ordering Facility: [facility] Address: [address] [id number] Performed By: #### 2 4323-8 #### [facility] [place] [facility] CLIA [id number] [address] [place] [address] [place] ALP [Catalytic activity/Vol] 132 U/L High 38-113 [facility] Comment on above: Order Comment: Speci men Type: BLOOD SPECIMEN Ordering Facility: [facility] Address: [address] [place] [address] Performed By: #### 2 4323-8 #### [facility] [place] [facility] CLIA [id number] [address] [place] [address] [place] ALT With P-5'-P [Catalytic activity/Vol] 9 U/L Low 10-54 [facility] Comment on above: Order Comment: Speci men Type: BLOOD SPECIMEN Ordering Facility: [facility] Address: [address] [place] [address] Performed By: #### 2 4323-8 #### [facility] [place] [facility] CLIA [id number] [address] [place] [address] [place] Anion gap [Moles/Vol] 19 mmol/L High 8-15 [facility] Comment on above: Order Comment: Speci men Type: BLOOD SPECIMEN Ordering Facility: [facility] Address: [address] [place] [address] Performed By: #### 2 4323-8 #### [facility] [place] [facility] CLIA [id number] [address] [place] [address] [place] AST With P-5'-P [Catalytic activity/Vol] 23 U/L Normal 14-40 [facility] Comment on above: Order Comment: Speci men Type: BLOOD SPECIMEN Ordering Facility: [facility] Address: [address] [place], [place] [address] Performed By: #### 2 4323-8 #### [facility] [place] [facility] CLIA [id number] [address] [place] [address] [place] Bilirubin [Mass/Vol] 0.3 mg/dL Normal 0.2-1.3 [facility] Comment on above: Order Comment: Speci men Type: BLOOD SPECIMEN Ordering Facility: [facility] Address: [address] [place] [address] Performed By: #### 2 4323-8 #### [facility] [place] [facility] CLIA [id number] [address] [place] [address] [place] Calcium [Mass/Vol] 9.8 mg/dL Normal 8.5-10.2 [facility] Comment on above: Order Comment: Speci men Type: BLOOD SPECIMEN Ordering Facility: [facility] Address: [address] [place] [address] Performed By: #### 2 4323-8 #### [facility] [place] [facility] CLIA [id number] [address] [place] [address] [place] Chloride [Moles/Vol] 99 mmol/L Normal 98-107 [facility] Comment on above: Order Comment: Speci men Type: BLOOD SPECIMEN Ordering Facility: [facility] Address: [address] [place] [address] Performed By: #### 2 4323-8 #### [facility] [place] [facility] CLIA [id number] [address] [place] [address] [place] CO2 [Moles/Vol] 20 mmol/L Low 22-30 [facility] Comment on above: Order Comment: Speci men Type: BLOOD SPECIMEN Ordering Facility: [facility] Address: [address] [place] [address] Performed By: #### 2 4323-8 #### [facility] [place] [facility] CLIA [id number] [address] [place] [address] [place] Creatinine [Mass/Vol] 1.32 mg/dL High 0.73-1.22 [facility] Comment on above: Order Comment: Speci men Type: BLOOD SPECIMEN Ordering Facility: [facility] Address: [address] [place] [address] Performed By: #### 2 4323-8 #### [facility] CLIA [id number] [address] [place] [address] [place] Creatinine and Glomerular filtration rate.predicted panel (S/P/Bld) 59 mL/min/1.73m??? Low >=60 [facility] Comment on above: Order Comment: Roldan lemons Type: BLOOD SPECIMEN Ordering Facility: [facility] Address: [address] [place] [address] Result Comment: Lissa mated Glomerular Filtration Rate (eGFR) is calculated using the 2020 CKD-EPI creatinine equation. This equation utilizes serum creatinine, sex, and age as parameters. The creatinine assay has traceable calibration to isotope dilution-mass spectrometry. Refer to KDIGO guidelines for clinical interpretation. In patients with unstable renal function, e.g. those with acute kidney injury, the eGFR may not accurately reflect actual GFR. Performed By: #### 2 4323-8 #### [facility] CLIA [id number] [address] [place] [address] [place] Glucose [Mass/Vol] 69 mg/dL Low 74-99 [facility] Comment on above: Order Comment: Roldan lemons Type: BLOOD SPECIMEN Ordering Facility: [facility] Address: [address] [place] [address] Result Comment: The [place] Diabetes Association (ADA) provides guidance for cutoff values for fasting glucose and random glucose. The ADA defines fasting as no caloric intake for at least 8 hours. Fasting plasma glucose results between 100 to 125 mg/dL indicate increased risk for diabetes (prediabetes). Fasting plasma glucose results greater than or equal to 126 mg/dL meet the criteria for diagnosis of diabetes. In the absence of unequivocal hyperglycemia, results should be confirmed by repeat testing. In a patient with classic symptoms of hyperglycemia or hyperglycemic crisis, random plasma glucose results greater than or equal to 200 mg/dL meet the criteria for diagnosis of diabetes. Reference: Standards of Medical Care in Diabetes 2016, [place] Diabetes Association. Diabetes Care. 2016.39(Suppl 1). Performed By: #### 2 4323-8 #### [facility] CLIA [id number] [address] [place] [address] [place] Potassium [Moles/Vol] 4.9 mmol/L Normal 3.7-5.1 [facility] Comment on above: Order Comment: Speci men Type: BLOOD SPECIMEN Ordering Facility: [facility] Address: [address] [place] [address] Performed By: #### 2 4323-8 #### [facility] [place] [facility] CLIA [id number] [address] [place] [address] [place] Protein [Mass/Vol] 8.5 g/dL High 6.3-8.0 [facility] Comment on above: Order Comment: Speci men Type: BLOOD SPECIMEN Ordering Facility: [facility] Address: [address] [place] [address] Performed By: #### 2 4323-8 #### [facility] [place] [facility] CLIA [id number] [address] [place] [address] [place] Sodium [Moles/Vol] 138 mmol/L Normal 136-144 [facility] Comment on above: Order Comment: Speci men Type: BLOOD SPECIMEN Ordering Facility: [facility] Address: [address] [place] [address] Performed By: #### 2 4323-8 #### [facility] [place] [facility] CLIA [id number] [address] [place] [address] [place] Urea nitrogen [Mass/Vol] 24 mg/dL Normal 9-24 [facility] Comment on above: Order Comment: Speci men Type: BLOOD SPECIMEN Ordering Facility: [facility] Address: [address] [place] [address] Performed By: #### 2 4323-8 #### [facility] [place] [facility] CLIA [id number] [address] [place] [address] [place] Albumin [Mass/Vol] 3.9 g/dL Normal 3.9-4.9 [facility] Comment on above: Order Comment: Speci men Type: BLOOD SPECIMENOrdering Facility: [facility] Address: [address] [place] [address] Performed By: #### 2 4323-8 ####[facility] [place] [facility] [id number] [place] [address] [place] ALP [Catalytic activity/Vol] 104 U/L Normal 38-113 [facility] Comment on above: Order Comment: Speci men Type: BLOOD SPECIMENOrdering Facility: [facility] Address: [address] [place] [address] Performed By: #### 2 4323-8 ####[facility] [place] [facility] [id number] [place] [address] [place] ALT With P-5'-P [Catalytic activity/Vol] 7 U/L Low 10-54 [facility] Comment on above: Order Comment: Speci men Type: BLOOD SPECIMENOrdering Facility: [facility] Address: [address] [place] [address] Performed By: #### 2 4323-8 ####[facility] [id number] [facility] [place] [address] [facility] Anion gap [Moles/Vol] 17 mmol/L High 8-15 [facility] Comment on above: Order Comment: Speci men Type: BLOOD SPECIMENOrdering Facility: [facility] Address: [address] [place] [address] Result Comment: Jeny ected result: Previously reported as 15 mmol/L on 09/20/2024 at 10:19 PM EST. Performed By: #### 2 4323-8 ####[facility] [place] [facility] [id number] [place] [address] [place] AST With P-5'-P [Catalytic activity/Vol] 23 U/L Normal 14-40 [facility] Comment on above: Order Comment: Speci men Type: BLOOD SPECIMENOrdering Facility: [facility] Address: [address] [place] [address] Performed By: #### 2 4323-8 ####[facility] [place] [facility] [id number] [facility] [address] [place] Bilirubin [Mass/Vol] 0.2 mg/dL Normal 0.2-1.3 [facility] Comment on above: Order Comment: Speci men Type: BLOOD SPECIMENOrdering Facility: [facility] Address: [address] [place] [address] Performed By: #### 2 4323-8 ####[facility] [place] [facility]CLIA [id number] [place] [address] [place] Calcium [Mass/Vol] 9.0 mg/dL Normal 8.5-10.2 [facility] Comment on above: Order Comment: Speci men Type: BLOOD SPECIMENOrdering Facility: [facility] Address: [address] [place] [address] Result Comment: Jeny ected result: Previously reported as 9.1 mg/dL on 09/20/2024 at 10:19 PM EST. Performed By: #### 2 4323-8 ####[facility] [place] [facility]CLIA [id number] [place] [address] [place] Chloride [Moles/Vol] 100 mmol/L Normal 98-107 [facility] Comment on above: Order Comment: Speci men Type: BLOOD SPECIMENOrdering Facility: [facility] Address: [address] [place] [address] Performed By: #### 2 4323-8 ####[facility] [place] [facility]CLIA [id number] [place] [address] [place] CO2 [Moles/Vol] 19 mmol/L Low 22-30 [facility] Comment on above: Order Comment: Speci men Type: BLOOD SPECIMENOrdering Facility: [facility] Address: [address] [place] [address] Result Comment: Jeny ected result: Previously reported as 21 mmol/L on 09/20/2024 at 10:19 PM EST. Performed By: #### 2 4323-8 ####[facility] [place] [facility]CLIA [id number] [place] [address] [place] Creatinine [Mass/Vol] 1.35 mg/dL High 0.73-1.22 [facility] Comment on above: Order Comment: Speci men Type: BLOOD SPECIMENOrdering Facility: [facility] Address: [address] [place], [place] [address] Result Comment: Jeny ected result: Previously reported as 1.33 mg/dL on 09/20/2024 at 10:19 PM EST. Performed By: #### 2 4323-8 ####[facility] LABCLIA [id number] [place] [address] [place] Creatinine and Glomerular filtration rate.predicted panel (S/P/Bld) 57 mL/min/1.73m??? Low >=60 [facility] Comment on above: Order Comment: Roldan cristo Type: BLOOD SPECIMENOrdering Facility: [facility] Address: [address] [place] [address] Result Comment: Lissa mated Glomerular Filtration Rate (eGFR) is calculated using the 2020 CKD-EPI creatinine equation. This equation utilizes serum creatinine, sex, and age as parameters. The creatinine assay has traceable calibration to isotope dilution-mass spectrometry. Refer to KDIGO guidelines for clinical interpretation. In patients with unstable renal function, e.g. those with acute kidney injury, the eGFR may not accurately reflect actual GFR. Corrected result: Previously reported as 58 mL/min/1.73m??? on 09/20/2024 at 10:19 PM EST. Performed By: #### 2 4323-8 ####[facility] LABCLIA [id number] [place] [address] [place] Glucose [Mass/Vol] 66 mg/dL Low 74-99 [facility] Comment on above: Order Comment: Roldan cristo Type: BLOOD SPECIMENOrdering Facility: [facility] Address: [address] [place], [place] [address] Result Comment: The [place] Diabetes Association (ADA) provides guidance for cutoff values for fasting glucose and random glucose. The ADA defines fasting as no caloric intake for at least 8 hours. Fasting plasma glucose results between 100 to 125 mg/dL indicate increased risk for diabetes (prediabetes). Fasting plasma glucose results greater than or equal to 126 mg/dL meet the criteria for diagnosis of diabetes. In the absence of unequivocal hyperglycemia, results should be confirmed by repeat testing. In a patient with classic symptoms of hyperglycemia or hyperglycemic crisis, random plasma glucose results greater than or equal to 200 mg/dL meet the criteria for diagnosis of diabetes. Reference: Standards of Medical Care in Diabetes 2016, [place] [employer]. Diabetes Care. 2016.39(Suppl 1). Corrected result: Previously reported as 67 mg/dL on 09/20/2024 at 10:19 PM EST. Performed By: #### 2 4323-8 ####[facility] [place] LABCLIA [id number] [place] [address] [place] Potassium [Moles/Vol] 4.9 mmol/L Normal 3.7-5.1 [facility] Comment on above: Order Comment: Roldan lemons Type: BLOOD SPECIMENOrdering Facility: [facility] Address: [address] [place] [address] Result Comment: Jeny ected result: Previously reported as 4.7 mmol/L on 09/20/2024 at 10:19 PM EST. Performed By: #### 2 4323-8 ####[facility] LABCLIA [id number] [place] [address] [place] Protein [Mass/Vol] 7.0 g/dL Normal 6.3-8.0 [facility] Comment on above: Order Comment: Roldan lemons Type: BLOOD SPECIMENOrdering Facility: [facility] Address: [address] [place] [address] Performed By: #### 2 4323-8 ####[facility] [place] LABCLIA [id number] [place] [address] [place] Sodium [Moles/Vol] 136 mmol/L Normal 136-144 [facility] Comment on above: Order Comment: Roldan lemons Type: BLOOD SPECIMENOrdering Facility: [facility] Address: [address] [place] [address] Performed By: #### 2 4323-8 ####[facility] [facility] [id number] [place] [address] [place] Urea nitrogen [Mass/Vol] 24 mg/dL Normal 9-24 [facility] Comment on above: Order Comment: Speci men Type: BLOOD SPECIMENOrdering Facility: [facility] Address: [address] [place] [address] [place] [address] Performed By: #### 2 4323-8 ####[facility] [id number] [place] [address] [place] ECG COMPLETEon 09-20-2024 ECG COMPLETE Ventricular Rate : 1 11 BPM QRS Duration : 86 ms Q-T Interval : 346 ms QTC Calculation(Bazett) : 470 ms Calculated R [place] : 63 degrees Calculated T [place] : 72 degrees ATRIAL FIBRILLATION WITH RAPID VENTRICULAR RESPONSE ABNORMAL ECG WHEN COMPARED WITH ECG OF 20-Sep-2024 21:59, NO SIGNIFICANT CHANGE WAS FOUND Confirmed by MD HENNESSY VINAYAK ([id number]) on 09/21/2024 9:58:04 PM NAME : MESSI WALDROP PID : [id number] : 1955 Gender : Male Race : ORD : [id number] Procedure Date : Sep 20 2024 22:51:28 Edit Date : Sep 21 2024 21:58:05 Diagnosis: ATRIAL FIBRILLATION WITH RAPID VENTRICULAR RESPONSE ABNORMAL ECG WHEN COMPARED WITH ECG OF 20-Sep-2024 21:59, NO SIGNIFICANT CHANGE WAS FOUND Confirmed by MD HENNESSY VINAYAK ([id number]) on 09/21/2024 9:58:04 PM Test Reason : Chest Pain Location : 191 : [facility] ED Overread By : MD HENNESSY VINAYAK Edited By : MD HENNESSY VINAYAK Referred By : , Acquired by : QUIRINO SPAIN [facility] ECG COMPLETE Ventricular Rate : 1 63 BPM QRS Duration : 82 ms Q-T Interval : 294 ms QTC Calculation(Bazett) : 484 ms Calculated R [place] : 70 degrees Calculated T [place] : 44 degrees ATRIAL FIBRILLATION WITH RAPID VENTRICULAR RESPONSE LOW VOLTAGE QRS ABNORMAL ECG NO PREVIOUS ECGS AVAILABLE Confirmed by MD HENNESSY VINAYAK ([id number]) on 09/21/2024 9:57:59 PM NAME : MESSI WALDROP PID : [id number] : 1955 Gender : Male Race : ORD : [id number] Procedure Date : Sep 20 2024 21:59:49 Edit Date : Sep 21 2024 21:58:05 Diagnosis: ATRIAL FIBRILLATION WITH RAPID VENTRICULAR RESPONSE LOW VOLTAGE QRS ABNORMAL ECG NO PREVIOUS ECGS AVAILABLE Confirmed by MD HENNESSY VINAYAK ([id number]) on 09/21/2024 9:57:59 PM Test Reason : psych eval Location : 191 : [facility] ED Overread By : MD HENNESSY VINAYAK Edited By : MD HENNESSY VINAYAK Referred By : , Acquired by : QUIRINO SPAIN [facility] ED NOTEon 09-20-2024 ED NOTE HNO ID: [id number] Author: RUPERTO JOEL, RN Service: ? Author Type: Registered Nurse Type: ED Notes Filed: 09/20/2024 22:56 Note Text: Pt changed. Urinated all over self. Never gown and clothes on. EKG completed. IV started. Pt HR 120 afib on monitor now. [facility] ED NOTE HNO ID: [id number] Author: RUPERTO JOEL, MERLENE Service: ? Author Type: Registered Nurse Type: ED Notes Filed: 09/20/2024 23:00 Note Text: Pt drinking applejuice after bs 49 reading [facility] ED NOTE HNO ID: [id number] Author: RUPERTO JOEL, MERLENE Service: ? Author Type: Registered Nurse Type: ED Notes Filed: 09/20/2024 21:43 Note Text: Pt resting in bed no acute distress at this time. [facility] ED NOTE HNO ID: [id number] Author: RUPERTO JOEL, MERLENE Service: ? Author Type: Registered Nurse Type: ED Notes Filed: 09/20/2024 21:42 Note Text: Yocasta Dhaliwal May called in about pt. Shared more information regarding pt story. States that pt was found intoxicated and confused and was told that medics were going to take pt to [facility] where they have taken patient 10+ times in the past. Family went through process of getting a Crisis Officer set up to see pt at [facility]. After a while of not being seen family called around to find out pt was sent to [facility]. Pt apparently has Skein Inspector (Sophia Richards [phone]) on board and is not supposed to be drinking. No POA is set up for family yet. Madhuri states that Nhaun patients son should be primary contact for patient [phone]. Pt usually lives with Luís (brother) [phone]. Apparently defecated and vomited all over brothers house and became verbally aggressive and confused. Has bee drinking for over a week bumming alcohol off anyone in and around town. Brother Luís states does not want pt back at his house. Madhuri orourkeece to talk with Dr. Bradley ER physician. [facility] ED NOTE HNO ID: [id number] Author: RUPERTO JOEL, RN Service: ? Author Type: Registered Nurse Type: ED Notes Filed: 09/20/2024 17:57 Note Text: Pt resting in bed eyes closed. [facility] ED NOTE HNO ID: [id number] Author: RUPERTO JOEL, RN Service: ? Author Type: Registered Nurse Type: ED Notes Filed: 09/20/2024 17:56 Note Text: Pt up walking talking attempting to leave the room. Security and RN in to redirect pt. RN in room for 45 mins. Pt verbally deescalated until when nurse leaves room pt continues to attempt to leave room asking for beer and making comments regarding female nurses. Pt attempting to hug staff and then asking about fighting. Pt asking about medication to help him stay calm. Pt medicated per order. [facility] ED NOTE HNO ID: [id number] Author: RUPERTO JOEL, RN Service: ? Author Type: Registered Nurse Type: ED Notes Filed: 09/20/2024 15:50 Note Text: Pt arrived via medic after episode of intox at home. Medic states brother said he just wants to drink himself to . On CSS questions pt denies current SI and HI. States he attempted to harm self in the past years ago but does not remember when. Oriented to self only at this time. Notably intoxicated. States he has had atleast 10 drinks today of liquor. Chaplin, warm, dry. Pt denies any desire to quit drinking and I want to drink more [place]. [facility] ED PROV NOTEon 09-20-2024 ED PROV NOTE HNO ID: [id number] Author: JOHNIE BRADLEY MD Service: Emergency Medicine Author Type: Physician Type: ED Provider Notes Filed: 09/21/2024 00:27 Note Text: ED Provider Note Patient Name: Messi Waldrop : 1955 SERVICE DATE: 09/20/24 History Patient presents with: Intoxication Messi Waldrop is a 69 year old male with history of similar prior episodes and alcoholism who presents with acute intoxication. The patient arrived escorted by EMS. - Suspected agents: alcohol - Onset: this afternoon - Severity: moderate - Associated with behavior disturbance. - Not associated with traumatic injury Patient was brought in by ambulance very intoxicated he has been drinking all day history of alcoholism recent admission for detox in July. The patient lives with his brother brother called EMS and stated that the patient wanted to drink himself to EMS does report police were there as well. Patient denies wanting to harm himself but he is very drunk right now. On the initial interview with the patient he states he does not want any help with his drinking.. PAST MEDICAL HISTORY Diagnosis Date - Cancer (HCC) No past surgical history on file. No family history on file. Social History Tobacco Use - Smoking status: Former Types: Cigarettes - Smokeless tobacco: Current Vaping Use - Vaping status: Never Used Substance and Sexual Activity - Alcohol use: Not Currently Comment: quit 2 weeks ago. but was getting drunk two times a week - Drug use: Not Currently - Sexual activity: Not on file ALLERGIES No Known Allergies Review of Systems Constitutional: Negative for chills and fever. Respiratory: Negative for cough and shortness of breath. Cardiovascular: Negative for chest pain and palpitations. Gastrointestinal: Negative for abdominal pain, nausea and vomiting. Allergic/Immunologic: Negative for environmental allergies, food allergies and immunocompromised state. Neurological: Negative for light-headedness and headaches. Psychiatric/Behavioral: Positive for agitation and behavioral problems. Negative for self-injury and suicidal ideas. Physical Exam Vitals [09/20/24 1535] BP Pulse Temp Temp src Resp SpO2 Weight Height 109/89 90 36.9 ?C (98.5 ?F) -- 16 98 % -- -- Physical Exam Vitals and nursing note reviewed. Exam conducted with a primary school teacher present. Constitutional: General: He is not in acute distress. Appearance: Normal appearance. He is not ill-appearing. HENT: Head: Normocephalic and atraumatic. Eyes: General: Right eye: No discharge. Left eye: No discharge. Extraocular Movements: Extraocular movements intact. Cardiovascular: Rate and Rhythm: Normal rate and regular rhythm. Pulmonary: Effort: Pulmonary effort is normal. No respiratory distress. Abdominal: General: There is no distension. Palpations: Abdomen is soft. Tenderness: There is no abdominal tenderness. Musculoskeletal: General: No swelling or tenderness. Normal range of motion. Cervical back: Normal range of motion and neck supple. Skin: General: Skin is warm and dry. Capillary Refill: Capillary refill takes less than 2 seconds. Neurological: Mental Status: He is alert and oriented to person, place, and time. Psychiatric: Comments: Intoxicated loud belligerent but initially redirectable. Later on not willing to stay in bed getting up making fists and alternately trying to look very mean and then laughing. Patient is asking me to either hug him or punch him. Diagnostic Testing ED Labs Ordered and Reviewed COMPLETE BLOOD COUNT - Abnormal; Notable for the following components: Result Value Ref Range RBC 3.61 (*) 4.20 - 6.00 m/uL Hemoglobin 10.4 (*) 13.0 - 17.0 g/dL Hematocrit 32.2 (*) 39.0 - 51.0 % All other components within normal limits ETHANOL/ALCOHOL - Abnormal; Notable for the following components: Ethanol 294 (*) <11 mg/dL All other components within normal limits BASIC METABOLIC PANEL MAGNESIUM Procedures ED Course / Clinical Impression Clinical Impressions as of 09/20/24 2327 Atrial fibrillation with RVR (HCC) Alcoholism (HCC) Alcoholic intoxication without complication (HCC) Dementia associated with alcoholism, with other behavioral disturbance, unspecified dementia severity (HCC) MDM / Disposition / Plan Very intoxicated but neurologically seems to be intact becoming more belligerent and agitated as he stays in the emergency department I did give him dose of Geodon. We are checking labs he will need a CT of his head although does not recall any injuries or falls I do not see any signs of external injury but would not rule out the possibility of occult head injury. At his level of intoxication not able to make a psychiatric evaluation at this point will need to allow him to sober up and then revisit suicidality. Will also offer him help with detox if he is interested in that. Family member contacted (more content not included)... Normal [facility] Ethanol SerPl-mCncon 025 Ethanol [Mass/Vol] 294 mg/dL High <11 [facility] Comment on above: Order Comment: Speci men Type: BLOOD SPECIMEN [facility] Address: [address] [place] [address] Result Comment: Valu es > 80 mg/dL may indicate intoxication Performed By: #### 5 643-2 #### [facility] CLIA [id number] [address] [place], [place] [id number] [place] [facility] Magn[facility] [Mass/Vol] 2.2 mg/dL Normal 1.7-2.3 [facility] Comment on above: Order Comment: Speci men Type: BLOOD SPECIMEN [facility] Address: [address] [place] [address] Performed By: #### 1 9123-9, 26307-3 #### [facility] CLIA [id number] [address] [place], [place] [id number] [place] TOXICOLOGY SCREEN, ROUTINE U RINEon 09-20-2024 Amphetamines Confirm (U) [Mass/Vol] Negative Normal Negative [facility] Comment on above: Order Comment: Speci men Type: URINE SPECIMEN [facility] Address: [address] [place] [address] Result Comment: Cuto ff threshold at 1000 ng/mL. Performed By: #### U TOX2 #### [facility] CLIA [id number] [address] [place] [address] [place] BARBITURATES, URINE Negative Normal Negative [facility] Comment on above: Order Comment: Speci men Type: URINE SPECIMEN [facility] Address: [address] [place] [address] Result Comment: Cuto ff threshold at 200 ng/mL. Performed By: #### U TOX2 #### [facility] CLIA [id number] [address] [place] [address] [place] BENZODIAZEPINES, UR Negative Normal Negative [facility] Comment on above: Order Comment: Speci men Type: URINE SPECIMEN [facility] Address: [address] [place] [address] Result Comment: Cuto ff threshold at 200 ng/mL. Performed By: #### U TOX2 #### [facility] CLIA [id number] [address] [place] [address] [place] Cannabinoids Screen Ql (U) Negative Normal Negative [facility] Comment on above: Order Comment: Speci men Type: URINE SPECIMEN [facility] Address: [address] [place] [address] Result Comment: Cuto ff threshold at 50 ng/mL. Performed By: #### U TOX2 #### [facility] CLIA [id number] [address] [place] [id number] [place] Cocaine Ql (U) Negative Normal Negative [facility] Comment on above: Order Comment: Speci men Type: URINE SPECIMEN [facility] Address: [address] [place] [address] Result Comment: Cuto ff threshold at 300 ng/mL. Performed By: #### U TOX2 #### [facility] CLIA [id number] [address] [place] [address] [place] Ethanol (U) [Mass/Vol] 232 mg/dL High <11 [facility] Comment on above: Order Comment: Speci men Type: URINE SPECIMEN [facility] Address: [address] [place] [address] Performed By: #### U TOX2 #### [facility] CLIA [id number] [address] [place] [address] [place] Opiates Screen Ql (U) Negative Normal Negative [facility] Comment on above: Order Comment: Speci men Type: URINE SPECIMEN [facility] Address: [address], [place] [address] Result Comment: Cuto ff threshold at 300 ng/mL. Performed By: #### U TOX2 #### [facility] CLIA [id number] [address] [place] [address] [facility] oxyCODONE cutoff Screen (U) [Mass/Vol] Negative Normal Negative [facility] Comment on above: Order Comment: Speci men Type: URINE SPECIMEN [facility] Address: [address] [place] [address] Result Comment: Cuto ff threshold at 100 ng/mL. Performed By: #### U TOX2 #### [facility] CL[facility] [id number] [address] [place] [address] [facility] Phencyclidine Ql (U) Negative Normal Negative [facility] Comment on above: Order Comment: Speci men Type: URINE SPECIMEN [facility] Address: [address] [place] [address] Result Comment: Cuto ff threshold at 25 ng/mL. Performed By: #### U TOX2 #### [facility] CLIA [id number] [address] [place] [address] [facility] [place] 12 Lead EKGon 08-24-2024 12 Lead EKG [facility] Cardiovascular Services [address] [place] [address] 12 Lead EKG 08/24/24 0237 MR#: [id number] Acct: [id number] Name: MESSI WALDROP Rep #: [id number] : 1955 69 From: Zac Luke MD Attending Dr: Status: DEP ER Ordering Dr: Sandhya Bailey DO Date: 08/24/24 Location: ED Sex: M C Admitted: Test Reason : DYSRHYTHMIA Blood Pressure : */* mmHG Vent. Rate : 110 BPM Atrial Rate : * BPM P-R Int : * ms QRS Dur : 92 ms QT Int : 312 ms P-R-T Axes : * 43 63 degrees QTcB Int : 422 ms Atrial fibrillation with rapid ventricular response with premature ventricular or aberrantly conducted complexes Abnormal ECG Confirmed by BECCA BERNAL, CAROL ([id number]), mapping editor LOUIS IZQUIERDO ([id number]) on 08/26/2024 6:14:35 AM Referred By: Confirmed By: CAROL LUKE MD 08/26/24 0614 Date Zac Luke MD CC: Dr. John Springer MD; Dr. Sandhya Bailey DO Signed Normal [facility] Alcohol, Blood (Medical)-Ser umon 08-24-2024 SERUM ETOH 270.0 mg/dL Normal [facility] Comment on above: Result Comment: The serum:whole blood ethanol ratio is approximately 1.14 and varies slightly with hematocrit. Medical Alcohol reference interval and critical value in non-tolerant individuals; 50 - 100 Impairment 100 Intoxication 100 - 250 Severe Poisoning 250 - 400 Deep/possible fatal coma Performed By: #### L 501.9100, L501.4020, L500.4050, L100.0100 ####[facility] [address] [place], [address] Brain/Head without Contrasto n 08-24-2024 Brain/Head without Contrast [facility] Imaging Services [address] [place] [address] Brain/Head without Contrast MR#: [id number] Acct: [id number] Name: MESSI WALDROP Rep #: [id number] : 1955 M 69 From: Kayla Max PCP: Dr. John Springer MD Status: REG ER Study: Brain/Head without Contrast Date of Exam: 07/31 01/21 Exam# [id number] Ordering Dr: Sandhya Bailey DO [id number] INDICATION: trauma EXAMINATION: CT BRAIN - CT Head or Brain W/O Contrast Injection TECHNIQUE: Multiple axial images were obtained of the head without intravenous contrast. The protocol utilizes one or more of the following dose reduction techniques: automated exposure control, adjustment of mA and/or kV according to patient size,and/or use of iterative reconstruction technique. IV Contrast dosage and agent: None. RADIATION DOSAGE (If Supplied By Facility): CTDIvol = ( 44.99 ) mGy, DLP = ( 880.47 ) mGycm COMPARISON: Prior study dated: 07/30/2024 FINDINGS: BRAIN: No acute bleed. No edema. Boo-white matter differentiation is maintained. Arterial calcifications. VENTRICLES AND SULCI: Not dilated. EXTRA-AXIAL: No hemorrhage, fluid collection, or mass. CALVARIUM / SKULL BASE: Unremarkable. FACE/SINUSES: Unremarkable. SOFT TISSUES: Soft tissue swelling in the right parietal scalp. CT/Brain/Head without Contrast IMPRESSION: Scalp contusion. No evidence of acute intracranial injury. Electronically Signed: Kayla Carpio MD at 3:35 EST , CC: Dr. John Springer MD; Dr. Sandhya Bailey DO Medical Staff Services Coordinator: Signed Normal [facility] CBC W/Diff, Automatedon 07-31 Absolute Lymph 0.67 X10 3/uL Low 0.83-4.51 [facility] Comment on above: Performed By: #### L 501.9100, L501.4020, L500.4050, L100.0100 ####[facility] [address] [place], [place], [id number] Absolute Neut 3.4 X10 3/uL Normal 2.0-7.7 [facility] Comment on above: Performed By: #### L 501.9100, L501.4020, L500.4050, L100.0100 ####[facility] [address] [place], [address] Basophils/100 WBC (Bld) 1.1 % High 0-1 [facility] Comment on above: Performed By: #### L 501.9100, L501.4020, L500.4050, L100.0100 ####[facility] [address] [place], [address] Eosinophils/100 WBC (Bld) 1.1 % Normal 0-5 [facility] Comment on above: Performed By: #### L 501.9100, L501.4020, L500.4050, L100.0100 ####[facility] [address] [place], [address] Erythrocyte distribution width (RBC) [Ratio] 12.9 % Normal 11.6-14.6 [facility] Comment on above: Performed By: #### L 501.9100, L501.4020, L500.4050, L100.0100 ####[facility] [address] [place], [address] Hematocrit (Bld) [Volume fraction] 34.1 % Low 40-54 [facility] Comment on above: Performed By: #### L 501.9100, L501.4020, L500.4050, L100.0100 ####[facility] [address] [place], [address] Hemoglobin (Bld) [Mass/Vol] 11.6 g/dL Low 13.0-16.5 [facility] Comment on above: Performed By: #### L 501.9100, L501.4020, L500.4050, L100.0100 ####[facility] [address] [place], [address] IG% 0.400 Normal 0.0-0.9 [facility] Comment on above: Result Comment: IG% - Immature Granulocytes (promyelocytes, myelocytes and metamyelocytes) > 1% indicates that a LEFT SHIFT is Present. Performed By: #### L 501.9100, L501.4020, L500.4050, L100.0100 ####[facility] [address] [place], [address] Lymphocytes/100 WBC (Bld) 14.5 % Low 19-41 [facility] Comment on above: Performed By: #### L 501.9100, L501.4020, L500.4050, L100.0100 ####[facility] [address] [place], [address] MCH (RBC) [Entitic mass] 30.8 pg Normal 27.0-32.0 [facility] Comment on above: Performed By: #### L 501.9100, L501.4020, L500.4050, L100.0100 ####[facility] [address] [place], [address] MCHC (RBC) [Mass/Vol] 34.0 g/dL Normal 32-36 [facility] Comment on above: Performed By: #### L 501.9100, L501.4020, L500.4050, L100.0100 ####[facility] [address] [place], [address] MCV (RBC) [Entitic vol] 90.5 fL Normal 80-94 [facility] Comment on above: Performed By: #### L 501.9100, L501.4020, L500.4050, L100.0100 ####[facility] [address] [place], [address] Monocytes/100 WBC (Bld) 8.6 % Normal 0-10 [facility] Comment on above: Performed By: #### L 501.9100, L501.4020, L500.4050, L100.0100 ####[facility] [address] [place], [address] Neutrophils/100 WBC (Bld) 74.3 % High 47-70 [facility] Comment on above: Performed By: #### L 501.9100, L501.4020, L500.4050, L100.0100 ####[facility] [address] [place], [address] Nucleated RBC (Bld) [#/Vol] 0 10*3/uL Normal 0-5 [facility] Comment on above: Performed By: #### L 501.9100, L501.4020, L500.4050, L100.0100 ####[facility] [address] [place], [address] Platelet mean volume (Bld) [Entitic vol] 9.4 fL Normal 6.2-12.0 [facility] Comment on above: Performed By: #### L 501.9100, L501.4020, L500.4050, L100.0100 ####[facility] [address] [place], [address] Platelets (Bld) [#/Vol] 306 10*3/uL Normal 150-450 [facility] Comment on above: Performed By: #### L 501.9100, L501.4020, L500.4050, L100.0100 ####[facility] [address] [place], [address] RBC (Bld) [#/Vol] 3.77 10*6/uL Low 4.6-6.2 [facility] Comment on above: Performed By: #### L 501.9100, L501.4020, L500.4050, L100.0100 ####[facility] [address] [place], [address] RDW SD 42.5 fl Normal 35.1-43.9 [facility] Comment on above: Performed By: #### L 501.9100, L501.4020, L500.4050, L100.0100 ####[facility] [address] [place], [address] WBC (Bld) [#/Vol] 4.6 10*3/uL Normal 4.4-11.0 [facility] Comment on above: Performed By: #### L 501.9100, L501.4020, L500.4050, L100.0100 ####[facility] [address] [place], [address] Comprehensive Metabolic Prof ilon 08-24-2024 Albumin [Mass/Vol] 3.7 g/dL Normal 3.2-5.0 [facility] Comment on above: Order Comment: 'TROP ' Serial specimen #1, #2 or #3: 1 Performed By: #### L 501.9100, L501.4020, L500.4050, L100.0100 ####[facility] [address] [place], [address] Albumin/Globulin [Mass ratio] 0.9 {ratio} Normal 0.9-2.4 [facility] Comment on above: Order Comment: 'TROP ' Serial specimen #1, #2 or #3: 1 Performed By: #### L 501.9100, L501.4020, L500.4050, L100.0100 ####[facility] [address] [place], [address] ALK P 104 U/L Normal 45-117 [facility] Comment on above: Order Comment: 'TROP ' Serial specimen #1, #2 or #3: 1 Performed By: #### L 501.9100, L501.4020, L500.4050, L100.0100 ####[facility] [address] [place], [address] ALT [Catalytic activity/Vol] 16 U/L Normal 16-61 [facility] [facility] Comment on above: Order Comment: 'TROP ' Serial specimen #1, #2 or #3: 1 Performed By: #### L 501.9100, L501.4020, L500.4050, L100.0100 ####[facility] [address] [place], [address] AST [Catalytic activity/Vol] 23 U/L Normal 15-37 [facility] Comment on above: Order Comment: 'TROP ' Serial specimen #1, #2 or #3: 1 Performed By: #### L 501.9100, L501.4020, L500.4050, L100.0100 ####[facility] [address] [place], [address] Bilirubin [Mass/Vol] 0.50 mg/dL Normal 0.20-1.00 [facility] Comment on above: Order Comment: 'TROP ' Serial specimen #1, #2 or #3: 1 Result Comment: For patients on eltrombopag therapy, use of Dimension [place] TBIL is not recommended. Performed By: #### L 501.9100, L501.4020, L500.4050, L100.0100 ####[facility] [address] [place], [address] BUN/CRE 15.3 RATIO Normal 10-20 [facility] Comment on above: Order Comment: 'TROP ' Serial specimen #1, #2 or #3: 1 Performed By: #### L 501.9100, L501.4020, L500.4050, L100.0100 ####[facility] [address] [place], [address] CA,Total 9.1 mg/dL Normal 8.5-10.1 [facility] Comment on above: Order Comment: 'TROP ' Serial specimen #1, #2 or #3: 1 Performed By: #### L 501.9100, L501.4020, L500.4050, L100.0100 ####[facility] [address] [place], [address] Chloride [Moles/Vol] 99 mmol/L Normal 98-107 [facility] Comment on above: Order Comment: 'TROP ' Serial specimen #1, #2 or #3: 1 Performed By: #### L 501.9100, L501.4020, L500.4050, L100.0100 ####[facility] [address] [place], [address] CO2 [Moles/Vol] 21.0 mmol/L Normal 21.0-32.0 [facility] Comment on above: Order Comment: 'TROP ' Serial specimen #1, #2 or #3: 1 Performed By: #### L 501.9100, L501.4020, L500.4050, L100.0100 ####[facility] [address] [place], [address] Creatinine [Mass/Vol] 1.44 mg/dL High 0.70-1.30 [facility] Comment on above: Order Comment: 'TROP ' Serial specimen #1, #2 or #3: 1 Result Comment: The validity of the calculated GFR GFRAA in patients over 70 years has not been determined. Clinical correlation is essential. Performed By: #### L 501.9100, L501.4020, L500.4050, L100.0100 ####[facility] [address] [place], [address] ECRCL 50.69 ml/min Normal [facility] Comment on above: Order Comment: 'TROP ' Serial specimen #1, #2 or #3: 1 Performed By: #### L 501.9100, L501.4020, L500.4050, L100.0100 ####[facility] [address] [place], [address] EST GFR - AA 63 mL/min Normal >60 [facility] Comment on above: Order Comment: 'TROP ' Serial specimen #1, #2 or #3: 1 Result Comment: Afri can Greenlandic GFR Calc Performed By: #### L 501.9100, L501.4020, L500.4050, L100.0100 ####[facility] [address] [place], [address] GAP 13 Normal 5-15 [facility] Comment on above: Order Comment: 'TROP ' Serial specimen #1, #2 or #3: 1 Performed By: #### L 501.9100, L501.4020, L500.4050, L100.0100 ####[facility] [address] [place], [address] GFR/1.73 sq M.predicted among non-blacks MDRD (S/P/Bld) [Vol rate/Area] 52 mL/min/{1.73_m2} Low >60 [facility] Comment on above: Order Comment: 'TROP ' Serial specimen #1, #2 or #3: 1 Result Comment: Non- GFR Calc Performed By: #### L 501.9100, L501.4020, L500.4050, L100.0100 ####[facility] [address] [place], [address] Globulin (S) [Mass/Vol] 4.0 g/dL Normal 2.2-4.2 [facility] Comment on above: Order Comment: 'TROP ' Serial specimen #1, #2 or #3: 1 Performed By: #### L 501.9100, L501.4020, L500.4050, L100.0100 ####[facility] [address] [place], [address] Glucose [Mass/Vol] 82 mg/dL Normal 74-106 [facility] Comment on above: Order Comment: 'TROP ' Serial specimen #1, #2 or #3: 1 Performed By: #### L 501.9100, L501.4020, L500.4050, L100.0100 ####[facility] [address] [place], [address] Potassium [Moles/Vol] 3.9 mmol/L Normal 3.5-5.1 [facility] Comment on above: Order Comment: 'TROP ' Serial specimen #1, #2 or #3: 1 Performed By: #### L 501.9100, L501.4020, L500.4050, L100.0100 ####[facility] [address] [place], [address] Sodium [Moles/Vol] 134 mmol/L Low 136-145 [facility] Comment on above: Order Comment: 'TROP ' Serial specimen #1, #2 or #3: 1 Performed By: #### L 501.9100, L501.4020, L500.4050, L100.0100 ####[facility] [address] [place], [address] T PROT 7.7 g/dL Normal 6.4-8.2 [facility] Comment on above: Order Comment: 'TROP ' Serial specimen #1, #2 or #3: 1 Performed By: #### L 501.9100, L501.4020, L500.4050, L100.0100 ####[facility] [address] [place], [address] Urea nitrogen [Mass/Vol] 22 mg/dL High 7-18 [facility] Comment on above: Order Comment: 'TROP ' Serial specimen #1, #2 or #3: 1 Performed By: #### L 501.9100, L501.4020, L500.4050, L100.0100 ####[facility] [address] [place], [address] Emergency Department Summary on 08-24-2024 Emergency Department Summary [facility] Medical Records Department [address] [place] [address] Emergency Department Summary 08/24/24 MR#: [id number] Acct: [id number] Name: MESSI WALDROP Rep #: [id number] : 1955 69 From: Sandhya Bailey DO PCP: Dr. John Springer MD Status:DEP ER Location: ED HPI History of Present Illness Chief Complaint: Fall Informant: patient and EMS Narrative Narrative: Patient is a 69-year-old male with history of atrial fibrillation and alcohol abuse previously on Eliquis but patient states he is no longer on any blood thinners. He states he fell and hit the back of his head. He does not know how he fell but also admits to drinking heavily tonight. He states he had a bottle of 21 proof whiskey. He does not recall falling. Denies any other complaints or concerns at this time. States he is only here because he is bleeding from the back of his head. Tetanus Immunization: <5 years PFSH PFSH Medical History A-fib Malnutrition Pulmonary mass CHI (closed head injury) Substance abuse Anxiety Depression Smoker COPD (chronic obstructive pulmonary disease) Irregular heart beat Hypertension Behavior concern in adult At high risk for malnutrition Mass of left lung Hyponatremia Alcohol withdrawal Acute blood loss anemia GI bleed Chewing tobacco use History of cancer tonsil Anxiety and depression ETOH abuse Home Medications ???Medication ???Instructions ???Recorded ???Last Taken ???Type folic acid 1 mg tablet 1 mg PO DAILY@0800 #30 tabs 05/30/23 Unknown Rx thiamine HCl (vitamin B1) 100 mg 100 mg PO DAILYCM #30 tabs 05/30/23 Unknown Rx tablet (Vitamin B-1) albuterol sulfate 90 mcg/actuation 1 puff inhalation Q4H PRN PRN 10/14/23 Unknown History aerosol inhaler dyspnea amiodarone 100 mg tablet 200 mg PO DAILY 10/14/23 Unknown History apixaban 5 mg tablet (Eliquis) 5 mg PO BID 10/14/23 Unknown History bumetanide 1 mg tablet 1 mg PO BID 10/14/23 Unknown History calcium carbonate (Antacid Calcium) 537.5 mg PO DAILY 10/14/23 Unknown History cholecalciferol (vitamin D3) 25 25 mcg PO DAILY 10/14/23 Unknown History mcg (1,000 unit) tablet cyanocobalamin (vitamin B-12) 500 mcg PO DAILY 10/14/23 Unknown History 1,000 mcg tablet digoxin 125 mcg (0.125 mg) tablet 62.5 mcg PO DAILY 10/14/23 Unknown History empagliflozin 10 mg tablet 10 mg PO DAILY diabetes mellitus 10/14/23 Unknown History (Jardiance) fluticasone 100 mcg-salmeterol 50 1 ea inhalation DAILY 10/14/23 Unknown History mcg/dose blistr powdr for inhalation losartan 50 mg tablet 50 mg PO DAILY blood pressure 10/14/23 Unknown History mirtazapine 7.5 mg tablet 7.5 mg PO QHS depressive disorder 10/14/23 Unknown History pyridoxine (vitamin B6) 25 mg 25 mg PO DAILY anemia 10/14/23 Unknown History tablet (Vitamin B-6) sacubitril 24 mg-valsartan 26 mg 1 tab PO BID 10/14/23 Unknown History tablet (Entresto) spironolactone 25 mg tablet 25 mg PO DAILY blood pressure 10/14/23 Unknown History benzocaine 15 mg-menthol 2.6 mg 1 forest mucous membrane Q2H PRN sore 10/15/23 Unknown History lozenges (Cepacol Sore Throat throat (benzocaine-menthol)) budesonide-formoterol HFA 160 1 inh inhalation BID SHORTNESS OF 10/15/23 Unknown History mcg-4.5 mcg/actuation aerosol BREATH inhaler (Symbicort) melatonin 3 mg tablet 9 mg PO QHS PRN sleep 10/15/23 Unknown History multivitamin with minerals-ferrous 1 tab PO DAILY SUPPLEMENT 10/15/23 Unknown History sulfate 4.5 mg iron tablet (One Daily Multivitamins with Minerals) Allergy/AdvReac Type Severity Reaction Status Date / Time poison rich extract Allergy Mild RASH Verified 08/24/24 01:43 Family History Mother Diabetes Father Diabetes Brother Colon cancer Surgical History History of tonsillectomy and adenoidectomy Social History household members: other details: Lives with his son. Smoking Status: Current some day smoker tobacco type: smokeless tobacco Smokeless tobacco user: chewing tobacco and other alcohol intake: current alcohol intake frequency: 3 or more drinks per day details: 8-10 beers daily coupled with hard liquor. substance use type: does not use ROS ROS ED Constitutional Constitutional ED: Denies chills or fever(s) Eyes Eyes: Denies change in vision Respiratory/Chest Respiratory/Chest: Denies cough or dyspnea Gastrointestinal Gastrointestinal: Reports nausea and vomiting Musculoskeletal Musculoskeletal: Denies arthralgias or myalgias Integumentary Reports other Details: Scalp laceration Neurologic Neurologic: Denies headache(s), paresthesias or weakness Hematologic/Lymphatic Hematologic/ (more content not included)... Normal [facility] L501.4020on 08-24-2024 TROPONIN-I HS 19 pg/mL Normal 3.0-78.0 [facility] Comment on above: Order Comment: 'TROP ' Serial specimen #1, #2 or #3: 1 Result Comment: Sandra ferguson Note: New Test Units and Gender Specific Reference Ranges. For more information see Policy Stat Procedure [place] High Sensitivity Troponin (TNIH) and attachments. Performed By: #### L 501.9100, L501.4020, L500.4050, L100.0100 ####[facility] [address] [place], [address] Spine Cervical without Contr ason 08-24-2024 Spine Cervical without Contras [facility] Imaging Services [address] [place] [address] Spine Cervical without Contras MR#: [id number] Acct: [id number] Name: MESSI WALDROP Rep #: [id number] : 1955 M 69 From: Kayla Max PCP: Dr. John Springer MD Status: REG ER Study: Spine Cervical without Contras Date of Exam: 0 08/24/24 Exam# [id number] Ordering Dr: Sandhya Bailey DO [id number] INDICATION: trauma EXAMINATION: CT CERVICAL SPINE - CT Spine Cervical W/O Contrast Injection TECHNIQUE: Helically acquired images were obtained of the cervical spine. 2D reformatted images were reviewed. The protocol utilizes one or more of the following dose reduction techniques: automated exposure control, adjustment of mA and/or kV according to patient size,and/or use of iterative reconstruction technique. IV Contrast dosage and agent: None. RADIATION DOSAGE (If Supplied By Facility): CTDIvol = ( 22.62 ) mGy, DLP = ( 495.75 ) mGycm COMPARISON: Prior study dated: 07/30/2024 FINDINGS: ALIGNMENT: No subluxation. MINERALIZATION: Normal. VERTEBRAL BODIES: No fracture or acute abnormality. DISC SPACES: Disc space narrowing and osteophytes most pronounced 4 to C6. POSTERIOR ELEMENTS: Facet arthropathy at most levels. SPINAL CANAL: Maintained. PARASPINAL SOFT TISSUES: Unremarkable. Carotid arterial calcifications bilaterally. OTHER: Thyroid nodule 0.9 cm with calcifications. Focal opacities in the lung apices with associated apical pleural thickening not significantly changed most likely scarring. CT/Spine Cervical without Contras IMPRESSION: No evidence of fracture or subluxation. Straightening of the normal curve may be due to positioning or muscle spasm. Biapical pleural-parenchymal changes stable most likely scarring. Incidental thyroid nodule less than 1 cm. No follow-up imaging is recommended. Electronically Signed: Kayla Carpio MD at 3:47 EST Reading Location ID and State: [facility] / [place] Tel , Service support , CC: Dr. John Springer MD; Dr. Sandhya Bailey DO Medical Staff Services Coordinator: Signed Normal [facility] ED NOTEon 08-11-2024 ED NOTE HNO ID: [id number] Author: JADA PINEDO, MERLENE Service: ? Author Type: Registered Nurse Type: ED Notes Filed: 08/11/2024 12:08 Note Text: D/c instructions reviewed with pt who verbalized understanding Pt left ED ual and in stable condition with family. Normal [facility] ED NOTE HNO ID: [id number] Author: JADA PINEDO, MERLENE Service: ? Author Type: Registered Nurse Type: ED Notes Filed: 08/11/2024 11:28 Note Text: Pt comes to ED stating he needs assistance on removing his sutures. He is AANDOx3, vss. Will continue to monitor. Normal [facility] ED PROV NOTEon 08-11-2024 ED PROV NOTE HNO ID: [id number] Author: CLAUDIA NOYOLA MD Service: Emergency Medicine Author Type: Physician Type: ED Provider Notes Filed: 08/11/2024 13:19 Note Text: ED Provider Note Patient Name: Messi Waldrop : 1955 SERVICE DATE: 08/11/24 History Patient presents with: Suture Removal HPI This is a 69-year-old gentleman with history as below presenting requesting suture removal. Reports that he had mechanical fall 2 weeks ago. Sutures placed and was assessed at [facility]. Was post to have the facial sutures removed 1 week ago but has not been able to get in with his primary care provider so he presents requesting removal today. Patient has no acute complaints today. PAST MEDICAL HISTORY Diagnosis Date Cancer (HCC) History reviewed. No pertinent surgical history. No family history on file. Social History Tobacco Use Smoking status: Former Types: Cigarettes Smokeless tobacco: Current Vaping Use Vaping status: Never Used Substance and Sexual Activity Alcohol use: Not Currently Comment: quit 2 weeks ago. but was getting drunk two times a week Drug use: Not Currently Sexual activity: Not on file ALLERGIES No Known Allergies Review of Systems Per HPI Physical Exam Vitals [08/11/24 1121] BP Pulse Temp Temp src Resp SpO2 Weight Height 146/101 (!) 98 36.6 ?C (97.9 ?F) Temporal 20 100 % 70.3 kg (155 lb) -- Physical Exam Well-appearing, non-toxic and in no obvious distress. Hemodynamically stable and afebrile Noted laceration to top of head with rodrick in place which patient states is from a separate fall; these rodrick are supposed to be removed in 3-5 days still Noted [address] to RIGHT eyebrow, well healed wound. No erythema, no induration or fluctuance. No TTP Heart RRR w/o murmurs; Distal pulses intact Lungs CTAB Abd soft, NT, ND Patient moves all 4 extremities spontaneously and without deficit Diagnostic Testing ED Labs Ordered and Reviewed - No data to display SUTURE REMOVAL Date/Time: 08/11/2024 1:16 PM Performed by: Claudia Noyola MD Authorized by: Claudia Noyola MD Risks discussed: Bleeding, pain and wound separation Alternatives discussed: Delayed treatment and referral Location: Location: Head/neck Head/neck location: Eyebrow Eyebrow location: R eyebrow Procedure details: Wound appearance: No signs of infection, clean and good wound healing Number of sutures removed: 5 Post-procedure details: Post-removal: No dressing applied Patient tolerance of procedure: Tolerated well, no immediate complications ED Course / Clinical Impression Clinical Impressions as of 08/11/24 1314 Visit for suture removal MDM / Disposition / Plan MDM Patient is a 69-year-old male with history as above presenting with complaints of need for suture removal. History and exam as above. Medical record reviewed. Additional encounters reviewed: recent admission from 07/11/24 HPI obtained from patient, medical record ED COURSE: Arrives today requesting suture removal. He has no acute complaints at this time. The wound he reports occurred 2 weeks ago appears well-healed without any secondary complication, no evidence of infection. 5 sutures removed from the right eyebrow. Patient tolerated appropriately. Recommended expectant management supportive care. Noted separate wound to the top of his head which she states is from a second fall. [place] are in place there is no evidence of infection. He states that those rodrick are not due to be removed for another 3 to 5 days. Recommended continued outpatient follow-up with primary care to have the rodrick removed. Return precautions to the ED discussed. Patient discharged from the Emergency Department. I do not feel that the patient's evaluation reveals any acute reason for admission at this time. I instructed them to either follow up with their primary care physician or promptly return to the Emergency Department for reevaluation should symptoms worsen or new symptoms develop. I explained what symptoms would indicate the need to return to the Emergency Department. Shared decision making was used. The patient voiced understanding of the treatment plan and is agreeable with it. SIGNATURE: Claudia Noyola MD - CLAUDIA NOYOLA 08/11/24 1319 Normal [facility] Alcohol, Blood (Medical)-Ser on 07-30-2024 SERUM ETOH 281.0 mg/dL Normal [facility] Comment on above: Result Comment: The serum:whole blood ethanol ratio is approximately 1.14 and varies slightly with hematocrit. Medical Alcohol reference interval and critical value in non-tolerant individuals; 50 - 100 Impairment 100 Intoxication 100 - 250 Severe Poisoning 250 - 400 Deep/possible fatal coma Performed By: #### L 501.9100, L300.3900, L100.0100, L500.2500, L300.4310 ####[facility] [address] [place], [address] Basic Metabolic Profile (BMP )on 07-30-2024 BUN/CRE 10.1 RATIO Normal 10-20 [facility] Comment on above: Performed By: #### L 501.9100, L300.3900, L100.0100, L500.2500, L300.4310 ####[facility] [address] [place], [address] CA,Total 9.0 mg/dL Normal 8.5-10.1 [facility] Comment on above: Performed By: #### L 501.9100, L300.3900, L100.0100, L500.2500, L300.4310 ####[facility] [address] [place], [address] Chloride [Moles/Vol] 100 mmol/L Normal 98-107 [facility] Comment on above: Performed By: #### L 501.9100, L300.3900, L100.0100, L500.2500, L300.4310 ####[facility] [address] [place], [address] CO2 [Moles/Vol] 24.0 mmol/L Normal 21.0-32.0 [facility] Comment on above: Performed By: #### L 501.9100, L300.3900, L100.0100, L500.2500, L300.4310 ####[facility] [address] [place], [address] Creatinine [Mass/Vol] 1.39 mg/dL High 0.70-1.30 [facility] Comment on above: Result Comment: The validity of the calculated GFR GFRAA in patients over 70 years has not been determined. Clinical correlation is essential. Performed By: #### L 501.9100, L300.3900, L100.0100, L500.2500, L300.4310 ####[facility] [address] [place], [address] ECRCL 52.52 ml/min Normal [facility] Comment on above: Performed By: #### L 501.9100, L300.3900, L100.0100, L500.2500, L300.4310 ####[facility] [address] [place], [address] EST GFR - AA 65 mL/min Normal >60 [facility] Comment on above: Result Comment: Afri can Greenlandic GFR Calc Performed By: #### L 501.9100, L300.3900, L100.0100, L500.2500, L300.4310 ####[facility] [address] [place], [address] GAP 9 Normal 5-15 [facility] Comment on above: Performed By: #### L 501.9100, L300.3900, L100.0100, L500.2500, L300.4310 ####[facility] [address] [place], [address] GFR/1.73 sq M.predicted among non-blacks MDRD (S/P/Bld) [Vol rate/Area] 54 mL/min/{1.73_m2} Low >60 [facility] Comment on above: Result Comment: Non- GFR Calc Performed By: #### L 501.9100, L300.3900, L100.0100, L500.2500, L300.4310 ####[facility] [address] [place], [address] Glucose [Mass/Vol] 97 mg/dL Normal 74-106 [facility] Comment on above: Performed By: #### L 501.9100, L300.3900, L100.0100, L500.2500, L300.4310 ####[facility] [address] [place], [address] Potassium [Moles/Vol] 4.1 mmol/L Normal 3.5-5.1 [facility] Comment on above: Performed By: #### L 501.9100, L300.3900, L100.0100, L500.2500, L300.4310 ####[facility] [address] [place], [address] Sodium [Moles/Vol] 133 mmol/L Low 136-145 [facility] Comment on above: Performed By: #### L 501.9100, L300.3900, L100.0100, L500.2500, L300.4310 ####[facility] [address] [place], [address] Urea nitrogen [Mass/Vol] 14 mg/dL Normal 7-18 [facility] Comment on above: Performed By: #### L 501.9100, L300.3900, L100.0100, L500.2500, L300.4310 ####[facility] [address] [place], [address] Brain/Head without Contrasto n 07-30-2024 Brain/Head without Contrast [facility] Imaging Services [address] [place] [address] Brain/Head without Contrast MR#: [id number] Acct: [id number] Name: MESSI WALDROP Winter Rep #: [id number] : 1955 M 69 From: Efrem Max PCP: Dr. John Springer MD Status: REG ER Study: Brain/Head without Contrast Date of Exam: 08/23 Exam# [id number] Ordering Dr: Thony Rivas DO [id number] INDICATION: head injury EXAMINATION: CT BRAIN - CT Head or Brain W/O Contrast Injection TECHNIQUE: Multiple axial images were obtained of the head without intravenous contrast. The protocol utilizes one or more of the following dose reduction techniques: automated exposure control, adjustment of mA and/or kV according to patient size,and/or use of iterative reconstruction technique. IV Contrast dosage and agent: None. RADIATION DOSAGE (If Supplied By Facility): CTDIvol = ( 44.99 ) mGy, DLP = ( 981.71 ) mGycm COMPARISON: CT BrainDec 2023 9:14pm FINDINGS: BRAIN PARENCHYMA: No intra- or extra-axial hemorrhage. No evidence of acute infarct. No intracranial mass or mass effect. There is preservation of the boo/white matter interface. Posterior fossa structures are unremarkable. CSF SPACES: Appropriate for age. No hydrocephalus. Basal cisterns are patent. CALVARIUM, SKULL BASE, PARANASAL SINUSES AND MASTOID AIR CELLS: There is right parietal scalp hematoma. Clear. No discrete lytic or blastic abnormalities. ORBITS: Both globes, extraocular muscles, optic nerves and retrobulbar fat appear unremarkable. ASPECTS Score for Acute Strokes: 10 CT/Brain/Head without Contrast IMPRESSION: No acute intracranial abnormality. Electronically Signed: Efrem Montoya MD at 5:03 EST , CC: Dr. John Springer MD; Thony Rivas DO Medical Staff Services Coordinator: Signed Normal [facility] CBC W/Diff, Automatedon Absolute Lymph 1.03 X10 3/uL Normal 0.83-4.51 [facility] Comment on above: Performed By: #### L 501.9100, L300.3900, L100.0100, L500.2500, L300.4310 ####[facility] [address] [place], [address] Absolute Neut 4.5 X10 3/uL Normal 2.0-7.7 [facility] Comment on above: Performed By: #### L 501.9100, L300.3900, L100.0100, L500.2500, L300.4310 ####[facility] [address] [place], [address] Basophils/100 WBC (Bld) 1.2 % High 0-1 [facility] Comment on above: Performed By: #### L 501.9100, L300.3900, L100.0100, L500.2500, L300.4310 ####[facility] [address] [place], [address] Eosinophils/100 WBC (Bld) 2.0 % Normal 0-5 [facility] Comment on above: Performed By: #### L 501.9100, L300.3900, L100.0100, L500.2500, L300.4310 ####[facility] [address] [place], [address] Erythrocyte distribution width (RBC) [Ratio] 13.2 % Normal 11.6-14.6 [facility] Comment on above: Performed By: #### L 501.9100, L300.3900, L100.0100, L500.2500, L300.4310 ####[facility] [address] [place], [address] Hematocrit (Bld) [Volume fraction] 35.5 % Low 40-54 [facility] Comment on above: Performed By: #### L 501.9100, L300.3900, L100.0100, L500.2500, L300.4310 ####[facility] [address] [place], [address] Hemoglobin (Bld) [Mass/Vol] 11.8 g/dL Low 13.0-16.5 [facility] Comment on above: Performed By: #### L 501.9100, L300.3900, L100.0100, L500.2500, L300.4310 ####[facility] [address] [place], [address] IG% 0.800 Normal 0.0-0.9 [facility] Comment on above: Result Comment: IG% - Immature Granulocytes (promyelocytes, myelocytes and metamyelocytes) > 1% indicates that a LEFT SHIFT is Present. Performed By: #### L 501.9100, L300.3900, L100.0100, L500.2500, L300.4310 ####[facility] [address] [place], [address] Lymphocytes/100 WBC (Bld) 16.0 % Low 19-41 [facility] Comment on above: Performed By: #### L 501.9100, L300.3900, L100.0100, L500.2500, L300.4310 ####[facility] [address] [place], [address] MCH (RBC) [Entitic mass] 32.1 pg High 27.0-32.0 [facility] Comment on above: Performed By: #### L 501.9100, L300.3900, L100.0100, L500.2500, L300.4310 ####[facility] [address] [place], [address] MCHC (RBC) [Mass/Vol] 33.2 g/dL Normal 32-36 [facility] Comment on above: Performed By: #### L 501.9100, L300.3900, L100.0100, L500.2500, L300.4310 ####[facility] [address] [place], [address] MCV (RBC) [Entitic vol] 96.5 fL High 80-94 [facility] Comment on above: Performed By: #### L 501.9100, L300.3900, L100.0100, L500.2500, L300.4310 ####[facility] [address] [place], [address] Monocytes/100 WBC (Bld) 9.8 % Normal 0-10 [facility] Comment on above: Performed By: #### L 501.9100, L300.3900, L100.0100, L500.2500, L300.4310 ####[facility] [address] [place], [address] Neutrophils/100 WBC (Bld) 70.2 % High 47-70 [facility] Comment on above: Performed By: #### L 501.9100, L300.3900, L100.0100, L500.2500, L300.4310 ####[facility] [address] [place], [address] Nucleated RBC (Bld) [#/Vol] 0 10*3/uL Normal 0-5 [facility] Comment on above: Performed By: #### L 501.9100, L300.3900, L100.0100, L500.2500, L300.4310 ####[facility] [address] [place], [address] Platelet mean volume (Bld) [Entitic vol] 10.0 fL Normal 6.2-12.0 [facility] Comment on above: Performed By: #### L 501.9100, L300.3900, L100.0100, L500.2500, L300.4310 ####[facility] [address] [place], [address] Platelets (Bld) [#/Vol] 310 10*3/uL Normal 150-450 [facility] Comment on above: Performed By: #### L 501.9100, L300.3900, L100.0100, L500.2500, L300.4310 ####[facility] [address] [place], [address] RBC (Bld) [#/Vol] 3.68 10*6/uL Low 4.6-6.2 [facility] Comment on above: Performed By: #### L 501.9100, L300.3900, L100.0100, L500.2500, L300.4310 ####[facility] [address] [place], [address] RDW SD 46.7 fl High 35.1-43.9 [facility] Comment on above: Performed By: #### L 501.9100, L300.3900, L100.0100, L500.2500, L300.4310 ####[facility] [address] [place], [address] WBC (Bld) [#/Vol] 6.4 10*3/uL Normal 4.4-11.0 [facility] Comment on above: Performed By: #### L 501.9100, L300.3900, L100.0100, L500.2500, L300.4310 ####[facility] [address] [place], [address] Chest 1 View (Portable)on Chest 1 View (Portable) [facility] Imaging Services [address] [place] [address] Chest 1 View (Portable) MR#: [id number] Acct: [id number] Name: MESSI WALDROP Rep #: [id number] : 1955 M 69 From: Efrem Max PCP: Dr. John Springer MD Status: [facility] ER Study: Chest 1 View (Portable) Date of Exam: 07/30/24 Exam# [id number] Ordering Dr: Thony Rivas DO [id number] INDICATION: fall EXAMINATION/TECHNIQUE: X-RAY - XR Chest 1 View COMPARISON: No relevant prior comparison study available FINDINGS: LINES/DEVICES: None. LUNGS: No consolidation, edema or effusion. No pneumothorax. MEDIASTINUM AND CARDIOVASCULAR STRUCTURES: Cardiac silhouette not enlarged. Central airways and mediastinal contour are unremarkable. BONES AND SOFT TISSUES: Unremarkable. RAD/Chest 1 View (Portable) IMPRESSION: No radiographic evidence of acute cardiopulmonary disease. Electronically Signed: Efrem Montoya MD at 5:14 EST Reading Location ID and State: [address] [place] [address] Tel , Service support , CC: Dr. John Springer MD; Thony Rivas DO Medical Staff Services Coordinator: Signed Normal [facility] Emergency Department Summary on 07-30-2024 Emergency Department Summary [facility] Medical Records Department [address] [place] [address] Emergency Department Summary 07/30/24 MR#: [id number] Acct: [id number] Name: MESSI WALDROP Rep #: [id number] : 1955 69 From: Thony Rivas DO PCP: Dr. John Springer MD Status:REG ER Location: ED HPI History of Present Illness Chief Complaint: Head Injury Informant: patient and EMS Narrative Narrative: Patient is a 69-year-old male with past medical history of hypertension alcohol abuse COPD and atrial fibrillation. EMS states they were called this evening because the patient was drinking and he lost his balance and fell striking his head. He sustained a scalp laceration and had significant bleeding that cannot be controlled at home and therefore EMS was called. Patient confirms he was drinking this evening and that he had a mechanical fall. He denies any pain at this time [facility] Medical History A-fib Malnutrition Pulmonary mass CHI (closed head injury) Substance abuse Anxiety Depression Smoker COPD (chronic obstructive pulmonary disease) Irregular heart beat Hypertension Behavior concern in adult At high risk for malnutrition Mass of left lung Hyponatremia Alcohol withdrawal Acute blood loss anemia GI bleed Chewing tobacco use History of cancer tonsil Anxiety and depression ETOH abuse Home Medications ???Medication ???Instructions ???Recorded ???Last Taken ???Type folic acid 1 mg tablet 1 mg PO DAILY@0800 #30 tabs 05/30/23 Unknown Rx thiamine HCl (vitamin B1) 100 mg 100 mg PO DAILYCM #30 tabs 05/30/23 Unknown Rx tablet (Vitamin B-1) albuterol sulfate 90 mcg/actuation 1 puff inhalation Q4H PRN PRN 10/14/23 Unknown History aerosol inhaler dyspnea amiodarone 100 mg tablet 200 mg PO DAILY 10/14/23 Unknown History apixaban 5 mg tablet (Eliquis) 5 mg PO BID 10/14/23 Unknown History bumetanide 1 mg tablet 1 mg PO BID 10/14/23 Unknown History calcium carbonate (Antacid Calcium) 537.5 mg PO DAILY 10/14/23 Unknown History cholecalciferol (vitamin D3) 25 25 mcg PO DAILY 10/14/23 Unknown History mcg (1,000 unit) tablet cyanocobalamin (vitamin B-12) 500 mcg PO DAILY 10/14/23 Unknown History 1,000 mcg tablet digoxin 125 mcg (0.125 mg) tablet 62.5 mcg PO DAILY 10/14/23 Unknown History empagliflozin 10 mg tablet 10 mg PO DAILY diabetes mellitus 10/14/23 Unknown History (Jardiance) fluticasone 100 mcg-salmeterol 50 1 ea inhalation DAILY 10/14/23 Unknown History mcg/dose blistr powdr for inhalation losartan 50 mg tablet 50 mg PO DAILY blood pressure 10/14/23 Unknown History mirtazapine 7.5 mg tablet 7.5 mg PO QHS depressive disorder 10/14/23 Unknown History pyridoxine (vitamin B6) 25 mg 25 mg PO DAILY anemia 10/14/23 Unknown History tablet (Vitamin B-6) sacubitril 24 mg-valsartan 26 mg 1 tab PO BID 10/14/23 Unknown History tablet (Entresto) spironolactone 25 mg tablet 25 mg PO DAILY blood pressure 10/14/23 Unknown History benzocaine 15 mg-menthol 2.6 mg 1 forest mucous membrane Q2H PRN sore 10/15/23 Unknown History lozenges (Cepacol Sore Throat throat (benzocaine-menthol)) budesonide-formoterol HFA 160 1 inh inhalation BID SHORTNESS OF 10/15/23 Unknown History mcg-4.5 mcg/actuation aerosol BREATH inhaler (Symbicort) melatonin 3 mg tablet 9 mg PO QHS PRN sleep 10/15/23 Unknown History multivitamin with minerals-ferrous 1 tab PO DAILY SUPPLEMENT 10/15/23 Unknown History sulfate 4.5 mg iron tablet (One Daily Multivitamins with Minerals) Allergy/AdvReac Type Severity Reaction Status Date / Time poison rich extract Allergy Mild RASH Verified 07/08/24 17:32 Family History Mother Diabetes Father Diabetes Brother Colon cancer Surgical History History of tonsillectomy and adenoidectomy Social History household members: other details: Lives with his son. Smoking Status: Current some day smoker tobacco type: smokeless tobacco Smokeless tobacco user: chewing tobacco and other alcohol intake: current alcohol intake frequency: 3 or more drinks per day details: 8-10 beers daily coupled with hard liquor. substance use type: does not use ROS ROS ED Constitutional Constitutional ED: Denies chills or fever(s) Eyes Eyes: Denies blurry vision or change in vision ENT ENT ED: Denies sore throat Cardiovascular Cardiovascular: Reports other Details: Negative syncope ; Denies chest pain or palpitations Respiratory/Chest Respiratory/Chest: Denies cough or dyspnea Gastrointestinal Gastrointestinal: Denies abdominal pain, diarrhea, nausea or vomiting Musculoskeletal Musculoskeletal: Denies back pain or neck pain Integumentary R (more content not included)... Normal [facility] Partial Thromboplast Timeon 07-30-2024 aPTT Coag (Bld) [Time] 28.9 s Normal 24.1-36.2 [facility] Comment on above: Performed By: #### L 501.2100, L300.3900, L100.0100, L500.2500, L300.4310 ####[facility] [address] [place], [address] Pelvis 1 or 2 Viewson 2024 Pelvis 1 or 2 Views [facility] Imaging Services [address] [place] [address] Pelvis 1 or 2 Views MR#: [id number] Acct: [id number] Name: MESSI WALDROP Rep #: [id number] : 1955 M 69 From: Efrem Max PCP: Dr. John Springer MD Status: REG ER Study: Pelvis 1 or 2 Views Date of Exam: 07/30/24 Exam# [id number] Ordering Dr: Thony Rivas DO [id number] INDICATION: fall EXAMINATION/TECHNIQUE: X-RAY - XR Pelvis 1 or 2 Views COMPARISON: No relevant prior comparison study available FINDINGS: PELVIC BONES: No displaced fracture, destructive or sclerotic lesions. Note that overlapping bowel shadows may however obscure fine detail. Sacroiliac joints are unremarkable. No widening of the pubic symphysis. HIPS: The articular structures are unremarkable. No displaced fracture seen in this frontal view. SOFT TISSUES: No soft tissue swelling or gas. RAD/Pelvis 1 or 2 Views IMPRESSION: No evidence of displaced pelvic or hip fracture. Electronically Signed: Efrem Montoya MD at 5:12 EST Reading Location ID and State: [facility] / [place] Tel , Service support , CC: Dr. John Springer MD; Thony Rivas DO Medical Staff Services Coordinator: Signed Normal [facility] Prothrombin Time w/INRon INR Coag (PPP) [Relative time] 1.1 {INR} Normal [facility] Comment on above: Performed By: #### L 501.9100, L300.3900, L100.0100, L500.2500, L300.4310 ####[facility] [address] [place], [address] PT Coag (PPP) [Time] 14.7 s Normal 11.7-14.9 [facility] Comment on above: Performed By: #### L 501.9100, L300.3900, L100.0100, L500.2500, L300.4310 ####[facility] [address] [place], [address] Spine Cervical without Contr ason 07-30-2024 Spine Cervical without Contras [facility] Imaging Services [address] [place] [address] Spine Cervical without Contras MR#: [id number] Acct: [id number] Name: MESSI WALDROP Winter Rep #: [id number] : 1955 M 69 From: Efrem Max PCP: Dr. John Springer MD Status: REG ER Study: Spine Cervical without Contras Date of Exam: 0 07/30/24 Exam# [id number] Ordering Dr: Thony Rivas DO [id number] INDICATION: fall EXAMINATION: CT CERVICAL SPINE - CT Spine Cervical W/O Contrast Injection TECHNIQUE: Helically acquired images were obtained of the cervical spine. 2D reformatted images were reviewed. The protocol utilizes one or more of the following dose reduction techniques: automated exposure control, adjustment of mA and/or kV according to patient size,and/or use of iterative reconstruction technique. IV Contrast dosage and agent: None. RADIATION DOSAGE (If Supplied By Facility): CTDIvol = ( 24.08 ) mGy, DLP = ( 597.01 ) mGycm COMPARISON: No relevant prior comparison study available FINDINGS: Normal craniovertebral junction. Normal anterior atlantoaxial articulation. Normal odontoid process. There is straightening of the normal cervical lordosis. Normal vertebral bodies and posterior osseous elements. C2-3: Normal endplates. Normal disc height and morphology. Normal central canal and intervertebral neuroforamina. C3-4, C4-5, C5-6, C6-7: Endplate spondylosis. Central and paracentral disc bulge. Degenerative changes of the bilateral facet joints and uncovertebral joints. Ljdu-zo-leghungd narrowing of the central canal and the bilateral intervertebral neural foramina. C7-T1: Normal endplates. Normal disc height and morphology. Normal central canal and intervertebral neuroforamina. Normal visualized soft tissue structures. CT/Spine Cervical without Contras IMPRESSION: Multilevel degenerative changes, as described above. Electronically Signed: Efrem Montoya MD at 5:06 EST , CC: Dr. John Springer MD; Thony Rivas DO Medical Staff Services Coordinator: Signed [place] 30on 07-15-2024 30 Problem: Knowledge Deficit Goal: Patient/family/caregiver demonstrates understanding of disease process, treatment plan, medications, and discharge instructions 07/15/2024 1356 by Lucie Allen RN Outcome: Adequate for Discharge 07/15/2024 1106 by Lucie Allen RN Outcome: Progressing Problem: Potential for Compromised Skin Integrity Goal: Skin Integrity is Maintained or Improved 07/15/2024 1356 by Lucie Allen RN Outcome: Adequate for Discharge 07/15/2024 1106 by Lucie Allen RN Outcome: Progressing Goal: Nutritional status is improving 07/15/2024 1356 by Lucie Allen RN Outcome: Adequate for Discharge 07/15/2024 1106 by Lucie Allen RN Outcome: Progressing Problem: Urinary Incontinence Goal: Perineal skin integrity is maintained or improved 07/15/2024 1356 by Lucie Allen RN Outcome: Adequate for Discharge 07/15/2024 1106 by Lucie Allen RN Outcome: Progressing Problem: Knowledge Deficit Goal: Patient/family/caregiver demonstrates understanding of disease process, treatment plan, medications, and discharge instructions 07/15/2024 1356 by Lucie Allen RN Outcome: Adequate for Discharge 07/15/2024 1106 by Lucie Allen RN Outcome: Progressing Problem: Potential for Falls Goal: I will remain free of falls 07/15/2024 1356 by Lucie Allen RN Outcome: Adequate for Discharge 07/15/2024 1106 by Lucie Allen RN Outcome: Progressing Problem: Discharge Barriers Goal: My discharge needs are met 07/15/2024 1356 by Lucie Allen RN Outcome: Adequate for Discharge 07/15/2024 1106 by Lucie Allen RN Outcome: Progressing Problem: Anxiety Goal: Patient/family understands admission protocols 07/15/2024 1356 by Lucie Allen RN Outcome: Adequate for Discharge 07/15/2024 1106 by Lucie Allen RN Outcome: Progressing Goal: Attempts to manage anxiety with help 07/15/2024 1356 by Lucie Allen RN Outcome: Adequate for Discharge 07/15/2024 1106 by Lucie Allen RN Outcome: Progressing Goal: Verbalizes ways to manage anxiety 07/15/2024 1356 by Lucie Allen RN Outcome: Adequate for Discharge 07/15/2024 1106 by Lucie Allen RN Outcome: Progressing Goal: Implements measures to reduce anxiety 07/15/2024 1356 by Lucie Allen RN Outcome: Adequate for Discharge 07/15/2024 1106 by Lucie Allen RN Outcome: Progressing Goal: Free from restraint events 07/15/2024 1356 by Lucie Allen RN Outcome: Adequate for Discharge 07/15/2024 1106 by Lucie Allen RN Outcome: Progressing Problem: Drug Abuse/Detox Goal: Will have no detox symptoms and will verbalize plan for changing drug-related behavior 07/15/2024 1356 by Lucie Allen RN Outcome: Adequate for Discharge 07/15/2024 1106 by Lucie Allen RN Outcome: Progressing [facility] [id number] 07-15-2024 [id number] QUILL SKINNER saw patient to discuss aftercare plans and treatment post discharge. Patient was reminded about appointments. Patient is declining any aftercare at current time. Patient denied current SI/HI/AVH. Patient's brother potentially picking up patient from the unit as his son is in [place] and his niece is unable to pick him up at current time. QUILL SKINNER will continue to follow. Patient denied needing anything further from QUILL SKINNER at the time. QUILL SKINNER informed patient's nurse about conversation. [facility] [phone] QUILL SKINNER able to talk to Shawn Blount ([phone], Patient [facility] ophthalmic lens inspector. QUILL SKINNER explained reason for call as well as concern for patient's child's patient is refusing to provide any information on whereabouts of child and who was watching child at current time. human resources compliance manager able to confirm that baby is currently in the custody of maternal grandmother. Reports that patient is able to have supervised visits with baby but has not seen child in at least a month. [facility] will be filing to remove supervised visits with mother as there is concern for patient's continued ongoing use. If patient is granted any visitation rights will be at visitation center through [facility]. Ict Sales Representative also reports that patient recently went to rehab in February 2024. Was discharged in April 2024 and relapsed almost immediately. Reports that she drug screen patient on 06/05/2024 and patient was positive for amphetamines and methadone as well as THC. She also reports that gentleman who was at hospital with patient when she delivered the baby is not currently sober. Reports that most likely he would be the person that made her come to detox if she potentially overdosed while in his presence. [facility] worker also reports that this person is no longer involved in the child's safety care plan as paternity was determined that he is not to the baby's father. Reports that he is still involved with patient romantically but is not concerned in the custody case of the child at current time. QUILL SKINNER and [facility] worker provided additional collateral conversation. QUILL SKINNER agreed to call social security specialist medical case manager if patient is discharged. Informed that current plan is for patient to reengage with methadone at [facility]. QUILL SKINNER continue maintain contact with worker and inform her when patient is to be discharged. Normal [facility] CBC W Auto Differential pane l (Bld)Ordered By: Jose L Morrow on 07-15-2024 Basophils (Bld) [#/Vol] 0 10*3/uL 0.0 - 0.2 10*3/uL [facility] Basophils/100 WBC (Bld) 0.7 % 0.0 - 2.0 % [facility] Eosinophils (Bld) [#/Vol] 0.2 10*3/uL 0.0 - 0.5 10*3/uL [facility] Eosinophils/100 WBC (Bld) 4.1 % 0.0 - 6.0 % [facility] Erythrocyte distribution width (RBC) [Ratio] 13.7 % 11.5 - 15.0 % [facility] Hematocrit (Bld) [Volume fraction] 29 % Low 40.0 - 52.0 % [facility] Hemoglobin (Bld) [Mass/Vol] 9.9 g/dL Low 13.0 - 18.0 g/dL [facility] Immature granulocytes (Bld) [#/Vol] 0 10*3/uL NINF - 0.1 10*3/uL [facility] Immature granulocytes/100 WBC (Bld) 0.7 % 0.0 - 2.0 % [facility] Interpretation and review of laboratory results Abnormal [facility] Lymphocytes (Bld) [#/Vol] 0.6 10*3/uL Low 1.0 - 4.3 10*3/uL [facility] Lymphocytes/100 WBC (Bld) 13.9 % Low 15.0 - 45.0 % [facility] MCH (RBC) [Entitic mass] 32.5 pg 26.0 - 34.[address] [facility] MCHC (RBC) [Mass/Vol] 34.1 % 30.5 - 36.0 % [facility] MCV (RBC) [Entitic vol] 95.1 fL 77.0 - 99.0 fL [facility] Monocytes (Bld) [#/Vol] 0.6 10*3/uL 0.0 - 0.9 10*3/uL [facility] Monocytes/100 WBC (Bld) 13.9 % High 5.0 - 13.0 % [facility] Neutrophils (Bld) [#/Vol] 2.8 10*3/uL 1.8 - 7.5 10*3/uL [facility] Neutrophils/100 WBC (Bld) 66.7 % 38.0 - 82.0 % [facility] Nucleated RBC/100 WBC (Bld) [Ratio] 0 % [facility] Platelet mean volume (Bld) [Entitic vol] 10 fL 9.0 - 12.[address] [facility] Platelets (Bld) [#/Vol] 224 10*3/uL 140 - 440 10*3/uL [facility] RBC (Bld) [#/Vol] 3.05 10*6/uL Low 4.40 - 5.9 0 10*6/uL [facility] WBC (Bld) [#/Vol] 4.2 10*3/uL 3.6 - 10.7 10*3/uL [facility] CBC WITH AUTO DIFFERENTIALon 07-15-2024 Basophils (Bld) [#/Vol] 0.0 10*3/uL Normal 0.0-0.2 [facility] Comment on above: Performed By: #### L [id number] ####Composite Assembler: DANNA WYMAN ([id number])[address] Basophils/100 WBC (Bld) 0.7 % Normal 0.0-2.0 [facility] Comment on above: Performed By: #### L [id number] ####Composite Assembler: DANNA WYMAN ([id number])[facility])[address] [place] [address] Eosinophils (Bld) [#/Vol] 0.2 10*3/uL Normal 0.0-0.5 [facility] Comment on above: Performed By: #### L [id number] ####Composite Assembler: DANNA WYMAN ([id number])[facility])[address] [place] [address] Eosinophils/100 WBC (Bld) 4.1 % Normal 0.0-6.[address] [facility] Comment on above: Performed By: #### L [id number] ####Composite Assembler: DANNA WYMAN ([id number])[address] Erythrocyte distribution width (RBC) [Ratio] 13.7 % Normal 11.5-15.[address] [facility] Comment on above: Performed By: #### L [id number] ####Composite Assembler: DANNA WYMAN ([id number])[address] Hematocrit (Bld) [Volume fraction] 29.0 % Low 40.0-52.[address] [facility] Comment on above: Performed By: #### L [id number] ####Composite Assembler: DANNA WYMAN ([id number])[address] Hemoglobin (Bld) [Mass/Vol] 9.9 g/dL Low 13.0-18.[address] [facility] Comment on above: Performed By: #### L [id number] ####Composite Assembler: DANNA WYMAN ([id number])[address] IMMATURE GRANS % 0.7 % Normal 0.0-2.0 [facility] Comment on above: Performed By: #### L [id number] ####Composite Assembler: DANNA WYMAN ([id number])[address] IMMATURE GRANS ABSOLUTE 0.0 10*3/uL Normal <0.[address] [facility] Comment on above: Performed By: #### L [id number] ####Composite Assembler: DNANA WYMAN ([id number])[facility])[address] [place] [address] Lymphocytes (Bld) [#/Vol] 0.6 10*3/uL Low 1.0-4.3 [facility] Comment on above: Performed By: #### L [id number] ####Composite Assembler: DANNA WYMAN ([id number])[facility])[address] [place] [address] Lymphocytes/100 WBC (Bld) 13.9 % Low 15.0-45.0 [facility] Comment on above: Performed By: #### L [id number] ####Composite Assembler: DANNA WYMAN ([id number])[facility])[address] [place] [address] MCH (RBC) [Entitic mass] 32.5 pg Normal 26.0-34.0 [facility] [facility] Comment on above: Performed By: #### L [id number] ####Composite Assembler: DANNA WYMAN ([id number])[facility])[address] [place] [address] MCHC 34.1 % Normal 30.5-36.0 [facility] Comment on above: Performed By: #### L [id number] ####Composite Assembler: DANNA WYMAN ([id number])[facility])[address] [place] [address] MCV (RBC) [Entitic vol] 95.1 fL Normal 77.0-99.0 [facility] Comment on above: Performed By: #### L [id number] ####Composite Assembler: DANNA WYMAN ([id number])[facility])[address] [place] [address] Monocytes (Bld) [#/Vol] 0.6 10*3/uL Normal 0.0-0.9 [facility] Comment on above: Performed By: #### L [id number] ####Composite Assembler: DANNA WYMAN ([id number])[facility])[address] [place] [address] Monocytes/100 WBC (Bld) 13.9 % High 5.0-13.0 [facility] Comment on above: Performed By: #### L [id number] ####Composite Assembler: DANNA WYMAN ([id number])[facility] ([facility])[address] [place] [address] NEUTROPHILS ABSOLUTE 2.8 10*3/uL Normal 1.8-7.5 [facility] Comment on above: Performed By: #### L [id number] ####Composite Assembler: DANNA WYMAN ([id number])[facility] ([facility])[address] [place] [address] Neutrophils/100 WBC (Bld) 66.7 % Normal 38.0-82.0 [facility] Comment on above: Performed By: #### L [id number] ####Composite Assembler: DANNA WYMAN ([id number])[facility] ([facility])[address] [place] [address] NRBC 0.0 /100 WBCs Normal 0.0-2.0 [facility] Comment on above: Performed By: #### L [id number] ####Composite Assembler: DANNA WYMAN ([id number])[facility] ([facility])[address] [place] [address] Platelet mean volume (Bld) [Entitic vol] 10.0 fL Normal 9.0-12.7 [facility] Comment on above: Performed By: #### L [id number] ####Composite Assembler: DANNA WYMAN ([id number])[facility] ([facility])[address] [place] [address] Platelets (Bld) [#/Vol] 224 10*3/uL Normal 140-440 [facility] Comment on above: Performed By: #### L [id number] ####Composite Assembler: DANNA WYMAN ([id number])[facility] ([facility])[address] [place] [address] RBC (Bld) [#/Vol] 3.05 10*6/uL Low 4.40-5.90 [facility] Comment on above: Performed By: #### L [id number] ####Composite Assembler: DANNA WYMAN ([id number])[facility] ([facility])[address] [place] [address] WBC (Bld) [#/Vol] 4.2 10*3/uL Normal 3.6-10.7 [facility] Comment on above: Performed By: #### L [id number] ####Composite Assembler: DANNA WYMAN ([id number])[facility] ([facility])[address] [place] [address] COMPREHENSIVE METABOLIC PANE [place] 07-15-2024 Albumin [Mass/Vol] 2.9 g/dL Low 3.4-4.8 [facility] Comment on above: Performed By: #### L [id number] ####Composite Assembler: DANNA WYMAN ([id number])[facility] ([facility])[address] [place] [address] ALP [Catalytic activity/Vol] 69 U/L Normal 40-150 [facility] Comment on above: Performed By: #### L [id number] ####Composite Assembler: DANNA WYMAN ([id number])[facility] ([facility])[address] [place] [address] ALT [Catalytic activity/Vol] 10 U/L Normal <40 [facility] Comment on above: Performed By: #### L [id number] ####Composite Assembler: DNANA WYMAN ([id number])[facility] ([facility])[address] [place] [address] Anion gap [Moles/Vol] 4 mmol/L Normal 3-13 [facility] Comment on above: Performed By: #### L [id number] ####Composite Assembler: DANNA WYMAN ([id number])[facility] ([facility])[address] [place] [address] AST [Catalytic activity/Vol] 22 U/L Normal <34 [facility] Comment on above: Performed By: #### L [id number] ####Composite Assembler: DANNA WYMAN ([id number])[facility] ([facility])[address] [place] [address] Bilirubin [Mass/Vol] 0.3 mg/dL Normal <1.2 [facility] Comment on above: Performed By: #### L [id number] ####Composite Assembler: DANNA WYMAN ([id number])[facility] ([facility])[address] [place] [address] Calcium [Mass/Vol] 8.4 mg/dL Low 8.8-10.0 [facility] Comment on above: Performed By: #### L [id number] ####Composite Assembler: DANNA WYMAN ([id number])[facility])[address] [place] [address] Chloride [Moles/Vol] 103 mmol/L Normal 98-107 [facility] Comment on above: Performed By: #### L [id number] ####Composite Assembler: DANNA WYMAN ([id number])[facility] ([facility])[address] [place] [address] CO2 [Moles/Vol] 24 mmol/L Normal 23-31 [facility] Comment on above: Performed By: #### L [id number] ####Composite Assembler: DANNA WYMAN ([id number])[facility] ([facility])[address] [place] [address] Creatinine [Mass/Vol] 1.39 mg/dL High 0.72-1.25 [facility] Comment on above: Performed By: #### L [id number] ####Composite Assembler: DANNA WYMAN ([id number])[facility])[address] [place] [address] [place] GLOMERULAR FILTRATION RATE ML/MIN/1.73 SQ M.PREDICTED 55.2 mL/min/1.73m*2 Low >60.0 [facility] Comment on above: Result Comment: Calc ulation based on the Chronic Kidney Disease Epidemiology Collaboration (CKD-EPI) equation refit without adjustment for race Performed By: #### L [id number] ####Composite Assembler: DANNA WYMAN ([id number])[facility] ([facility])[address] [place] [address] [place] Glucose [Mass/Vol] 82 mg/dL Normal 82-115 [facility] Comment on above: Performed By: #### L [id number] ####Composite Assembler: DANNA WYMAN ([id number])[facility])[address] [place] [address] Potassium [Moles/Vol] 4.2 mmol/L Normal 3.5-5.1 [facility] Comment on above: Result Comment: [facility] potassium values may be up to 0.5 mmol/L lower than serum values. Performed By: #### L [id number] ####Composite Assembler: DANNA WYMAN ([id number])[facility] ([facility])[address] [place] [address] Protein [Mass/Vol] 6.0 g/dL Low 6.4-8.3 [facility] Comment on above: Performed By: #### L [id number] ####Composite Assembler: DANNA WYMAN ([id number])[facility])[address] [place] [address] Sodium [Moles/Vol] 131 mmol/L Low 136-145 [facility] Comment on above: Performed By: #### L [id number] ####Composite Assembler: DANNA WYMAN ([id number])[facility])[address] [place] [address] Urea nitrogen [Mass/Vol] 27 mg/dL High 9-23 [facility] Comment on above: Performed By: #### L [id number] ####Composite Assembler: DANNA WYMAN ([id number])[facility])[address] [place] [address] Comprehensive metabolic 1998 panelon 07-15-2024 Albumin [Mass/Vol] 2.9 g/dL Low 3.4 - 4.8 g/dL [facility] ALP [Catalytic activity/Vol] 69 U/L 40 - 150 U/L [facility] ALT [Catalytic activity/Vol] 10 U/L NINF - 40 U/L [facility] Anion gap [Moles/Vol] 4 mmol/L 3 - 13 mmol/L [facility] AST [Catalytic activity/Vol] 22 U/L NINF - 34 U/L [facility] Bilirubin [Mass/Vol] 0.3 mg/dL NINF - 1.2 mg/dL [facility] Calcium [Mass/Vol] 8.4 mg/dL Low 8.8 - 10. 0 mg/dL [facility] Chloride [Moles/Vol] 103 mmol/L 98 - 10 7 mmol/L [facility] CO2 [Moles/Vol] 24 mmol/L 23 - 31 mmol/L [facility] Creatinine [Mass/Vol] 1.39 mg/dL High 0.72 - 1.25 mg/dL [facility] GFR/1.73 sq M.predicted (S/P/Bld) [Vol rate/Area] 55.2 mL/min Low - PINF [facility] Comment on above: Calculation based on the Chronic Kidney Disease Epidemiology Collaboration (CKD-EPI) equation refit without adjustment for race Glucose [Mass/Vol]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 needing treatment for alcohol abuse. States last drink was yesterday. History of drinking at least a half a bottle of vodka daily. He did have a recent fall few days ago, hitting his forehead. Per pt.: good appetite, mentions sore in upper right side of mouth, having to stay away from acidic foods, mentions I don't eat much! 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 Estimated Daily Nutrient Needs: Energy Requirements Based On: Kcal/kg Weight Used for Energy Requirements: Admission Weight for Energy Calculation (kg): 73 kg Total Energy Requirements (kcals/day): 1825 - 2190 kcals/day Weight Used for Protein Requirements: Admission Weight in Kg Used for Protein Requirements: 73 kg Estimated Total Protein (g/day): 80 - 88 gms protein/day Estimated Daily Total Fluid (ml/day): 1825 - 49065 mls/day Nutrition Related Findings: weight loss, MARKOS, ETOH intake MECHATRONICS TECHNOLOGIST; Labs: 07/14 Na+ 131, Hg 10.2, Hct 29.9, GFR 54.7, low, BUN 27, Creat. 1.40, elevated Wound Type: None Current Nutrition Therapies: Adult diet Regular Current Oral Intake Average Meal Intake: 76-100% Average Supplements Intake: None Ordered Anthropometric Measures: Height: 175.3 cm (5' 9) Current Body Weight: 72.6 kg (160 lb) Weight Source: Not Specified Admission Body Weight: 72.6 kg (160 lb) Usual Body Weight: 84.8 kg (187 lb) ([facility] 09/14/23; 5 years ago weighed 250#) % Weight Change (Calculated): -14.4 Ina Body Weight (lbs) (Calculated): 160 lbs Ina Body Weight (Kg) (Calculated): 73 kg % Ina Body Weight (Calculated): 100 % BMI (kg/m2) (Calculated): 23.6 Weight Adjustment For: No Adjustment BMI Categories: Normal Weight (BMI 22.0 to 24.9) age over 65 Nutrition Diagnosis: Altered nutrition-related lab values, In context of social or environmental circumstances, Unintended weight loss, Increased nutrient needs, Inadequate protein intake, Inadequate oral intake, Inadequate energy intake, Predicted inadequate energy intake, Inadequate protein-energy intake, In context of acute illness or injury, Moderate malnutrition related to increase demand for energy/nutrients, psychological cause or life stress, inadequate protein-energy intake (ETOH hx) as evidenced by weight loss, poor intake prior to admission, intake 26-50%, lab values, moderate muscle loss, mild muscle loss, mild loss of subcutaneous fat (est. 14% loss of UBW over 10 months) Nutrition Interventions: Nutrition Education/Counseling: No recommendation at this time Coordination of Nutrition Care: Continue to monitor while inpatient, Coordination of Care Plan of Care discussed with: pt. Goals: Goals: PO intake 50% or greater, other (specify) Specify Other Goals: of supplement Nutrition Monitoring and Evaluation: Behavioral-Environmental Outcomes: Beliefs and Attitutes, Readiness for Change Food/Nutrient Intake Outcomes: Supplement Intake, Food and Nutrient Intake Physical Signs/Symptoms Outcomes: Biochemical Data, GI Status, Fluid Status or Edema, Hemodynamic Status, Meal Time Behavior, Nutrition Focused Physical Findings, Skin, Weight Discharge Planning: Assist with food insecurity, Continue Oral Nutrition Supplement, Continue current diet Tierra Kwon RD Contact: via [employer] chat or office *[id number] [facility] Progress Note ----- ----- Attestation signed by Rolando Corbett MD at 07/14/2024 4:53 PM I saw and evaluated the patient, participating in the jiménez portions of the service. We reviewed the patient's medical record and test results. I personally spent over half of a total 35 minutes in counseling and discussion with the patient and coordination of care. This included a face to face evaluation and physical examination, and documenting clinical information on the day of visit. I have reviewed the fellow's note. I agree with the fellow?s findings and plan, with any additions or corrections listed below: Remains forgetful and slightly confused, but is A/O x3; not delirious. Likely chronic effects of alcohol use. Did not remember what day it was. Did remember he had a court date for alcohol related offense on 07/17 and wants to be able to be discharged by 07/16 AM labs reviewed with patient: Creatine is worse today than yestderday Slightly anemic Hyponatremic as well All likely 2/2 to alcohol use Has bruise/mild abrasion on forehead from recent fall ----- ADDICTION MEDICINE PROGRESS NOTE Patient: Messi Max November __ Problem List: Principal Problem: MARKOS (acute kidney injury) (HCC) SUBJECTIVE Chief Complaint Patient presents with Alcohol Problem Patient with daughter for alcohol detox , last drink yesterday, drink amount varies but most recently drinking 1/2 bottle of vodka daily, denies hx of seizures with withdrawal Last 4 CIWA scores per RN assessments 2 - 3 - 2 - 2 Interim History Doing well in terms of withdrawal sx today Tells me he has an upcoming court case, links it to becoming intoxicated but tells me he does not recall what occurred that he received legal charges or what the charges are Denies pain from head injury, tells me this did not occur while he was intoxicated though he told another care sales floor team member it was Continues to decline aftercare resources, plans to return home where he lives with his brother Review of Systems Review of Systems Constitutional: Negative for chills, diaphoresis, malaise/fatigue and night sweats. Eyes: Negative for visual disturbance. Cardiovascular: Negative for chest pain. Musculoskeletal: Negative for falls. Gastrointestinal: Negative for abdominal pain, nausea and vomiting. Neurological: Negative for headaches, light-headedness and tremors. Psychiatric/Behavioral: Negative for depression, hallucinations and suicidal ideas. The patient is not nervous/anxious. OBJECTIVE Vitals Vitals: 07/13/24 2039 07/14/24 0608 07/14/24 0842 07/14/24 1200 BP: 111/74 108/86 127/82 123/80 BP Location: Left arm Patient Position: Lying Pulse: 93 76 83 87 Resp: Temp: 36.7 ?C (98.1 ?F) 36.7 ?C (98 ?F) 36.1 ?C (96.9 ?F) TempSrc: Temporal Temporal Temporal SpO2: 100% 98% Weight: Height: Physical Exam Vitals and nursing note reviewed. Constitutional: General: He is sleeping. Appearance: He is not diaphoretic. HENT: Ears: Comments: [place] does not have hearing aides Cardiovascular: Rate and Rhythm: Normal rate. Pulmonary: Effort: Pulmonary effort is normal. Skin: Coloration: Skin is not pale. Neurological: Mental Status: He is oriented to person, place, and time and easily aroused. Psychiatric: Mood and Affect: Mood normal. Behavior: Behavior normal. Behavior is cooperative. Thought Content: Thought content normal. Judgment: Judgment normal. Medications Home Meds Current Outpatient Medications Medication Instructions albuterol 108 (90 Base) MCG/ACT inhaler 2 puffs, Every 4 hours PRN apixaban (ELIQUIS) 5 mg, Oral, 2 times daily calcium carbonate (Os-Altagracia) 1250 (500 Ca) MG chewable tablet 1 tablet cholecalciferol (VITAMIN D-3) 1,000 Units, Daily cyanocobalamin (VITAMIN B-12) 500 mcg, Oral, Daily folic acid (FOLVITE) 0.4 mg, Oral, Daily losartan (COZAAR) 50 mg, Oral, Daily metoprolol tartrate (LOPRESSOR) 100 mg, Oral, 2 times daily MULTIPLE VITAMINS-MINERALS ER PO Take by mouth. pyridoxine (VITAMIN B-6) 25 mg, Oral, Daily Scheduled Inpatient Meds apixaban, 5 mg, Oral, BID bacitracin, , Topical, BID chlordiazePOXIDE, 5 mg, Oral, q6h cyanocobalamin, 500 mcg, Oral, Daily folic acid, 1 mg, Oral, Daily losartan, 50 mg, Oral, Daily melatonin, 10 mg, Oral, Nightly metoprolol tartrate, 100 mg, Oral, BID mometasone-formoterol, 2 puff, Inhalation, BID thiamine, 100 mg, Oral, Daily PRN Inpatient Meds PRN medications: acetaminophen, albuterol, dextrose, dextrose, glucagon (rDNA), glucose, naloxone, ondansetron ODT OR ondansetron, polyethylene glycol (PEG) 3350 Continuous Inpatient Infusions Recent Imaging POCT glucose meter Result Date: 07/12/2024 (more content not included)... Normal [facility] 30on 07-13-2024 30 Problem: Knowledge Deficit Goal: Patient/family/caregiver demonstrates understanding of disease process, treatment plan, medications, and discharge instructions Outcome: Progressing Problem: Potential for Compromised Skin Integrity Goal: Skin Integrity is Maintained or Improved Outcome: Progressing Goal: Nutritional status is improving Outcome: Progressing Problem: Urinary Incontinence Goal: Perineal skin integrity is maintained or improved Outcome: Progressing Problem: Knowledge Deficit Goal: Patient/family/caregiver demonstrates understanding of disease process, treatment plan, medications, and discharge instructions Outcome: Progressing Problem: Potential for Falls Goal: I will remain free of falls Outcome: Progressing Problem: Discharge Barriers Goal: My discharge needs are met Outcome: Progressing Problem: Anxiety Goal: Patient/family understands admission protocols Outcome: Progressing Goal: Attempts to manage anxiety with help Outcome: Progressing Goal: Verbalizes ways to manage anxiety Outcome: Progressing Goal: Implements measures to reduce anxiety Outcome: Progressing Goal: Free from restraint events Outcome: Progressing Normal [facility] 30 Problem: Knowledge Deficit Goal: Patient/family/caregiver demonstrates understanding of disease process, treatment plan, medications, and discharge instructions 07/13/2024604 by Concepcion Priest RN Outcome: Progressing 07/13/2024 005 by Concepcion Priest RN Outcome: Progressing Problem: Potential for Compromised Skin Integrity Goal: Skin Integrity is Maintained or Improved 07/13/2024604 by Concepcion Priest RN Outcome: Progressing 07/13/2024 005 by Concepcion Priest RN Outcome: Progressing Goal: Nutritional status is improving 07/13/2024604 by Concepcion Priest RN Outcome: Progressing 07/13/2024 005 by Concepcion Priest RN Outcome: Progressing Problem: Urinary Incontinence Goal: Perineal skin integrity is maintained or improved 07/13/2024 06 by Concepcion Priest RN Outcome: Progressing 07/13/2024 005 by Concepcion Priest RN Outcome: Progressing Problem: Knowledge Deficit Goal: Patient/family/caregiver demonstrates understanding of disease process, treatment plan, medications, and discharge instructions 07/13/2024604 by Concepcion Priest RN Outcome: Progressing 07/13/2024 005 by Concepcion Priest RN Outcome: Progressing Problem: Potential for Falls Goal: I will remain free of falls 07/13/2024 06 by Concepcion Priest RN Outcome: Progressing 07/13/2024 005 by Concepcion Priest RN Outcome: Progressing Problem: Discharge Barriers Goal: My discharge needs are met 07/13/2024 06 by Concepcion Priest RN Outcome: Progressing 07/13/202454 by Concepcion Priest RN Outcome: Progressing Problem: Anxiety Goal: Patient/family understands admission protocols 07/13/2024 06 by Concepcion Priest RN Outcome: Progressing 07/13/2024 005 by Concepcion Priest RN Outcome: Progressing Goal: Attempts to manage anxiety with help 07/13/2024 06 by Concepcion Priest RN Outcome: Progressing 07/13/2024 005 by Concepcion Priest RN Outcome: Progressing Goal: Verbalizes ways to manage anxiety 07/13/2024 06 by Concepcion Priest RN Outcome: Progressing 07/13/2024 005 by Concepcion Priest RN Outcome: Progressing Goal: Implements measures to reduce anxiety 07/13/2024 06 by Concepcion Priest RN Outcome: Progressing 07/13/2024 005 by Concepcion Priest RN Outcome: Progressing Goal: Free from restraint events 07/13/2024 06 by Concepcion Priest RN Outcome: Progressing 07/13/2024 005 by Concepcion Priest RN Outcome: Progressing Normal [facility] 30 Problem: Knowledge Deficit Goal: Patient/family/caregiver demonstrates understanding of disease process, treatment plan, medications, and discharge instructions Outcome: Progressing Problem: Potential for Compromised Skin Integrity Goal: Skin Integrity is Maintained or Improved Outcome: Progressing Goal: Nutritional status is improving Outcome: Progressing Problem: Urinary Incontinence Goal: Perineal skin integrity is maintained or improved Outcome: Progressing Problem: Knowledge Deficit Goal: Patient/family/caregiver demonstrates understanding of disease process, treatment plan, medications, and discharge instructions Outcome: Progressing Problem: Potential for Falls Goal: I will remain free of falls Outcome: Progressing Problem: Discharge Barriers Goal: My discharge needs are met Outcome: Progressing Problem: Anxiety Goal: Patient/family understands admission protocols Outcome: Progressing Goal: Attempts to manage anxiety with help Outcome: Progressing Goal: Verbalizes ways to manage anxiety Outcome: Progressing Goal: Implements measures to reduce anxiety Outcome: Progressing Goal: Free from restraint events Outcome: Progressing Normal [facility] CBC (HEMOGRAM)on 07-13-2024 Erythrocyte distribution width (RBC) [Ratio] 14.1 % Normal 11.5-15.0 [facility] Comment on above: Performed By: #### L [id number] ####Composite Assembler: DANNA WYMAN ([id number])[address] Hematocrit (Bld) [Volume fraction] 32.4 % Low 40.0-52.0 [facility] Comment on above: Performed By: #### L [id number] ####Composite Assembler: DANNA WYMAN ([id number])[address] Hemoglobin (Bld) [Mass/Vol] 11.0 g/dL Low 13.0-18.0 [facility] Comment on above: Performed By: #### L [id number] ####Composite Assembler: DANNA WYMAN ([id number])[address] MCH (RBC) [Entitic mass] 32.5 pg Normal 26.0-34.0 [facility] Comment on above: Performed By: #### L [id number] ####Composite Assembler: DANNA WYMAN ([id number])[address] [facility] 34.0 % Normal 30.5-36.0 [facility] Comment on above: Performed By: #### L [id number] ####Composite Assembler: DANNA WYMAN ([id number])[facility])[address] [place] [address] MCV (RBC) [Entitic vol] 95.9 fL Normal 77.0-99.0 [facility] Comment on above: Performed By: #### L [id number] ####Composite Assembler: DANNA WYMAN ([id number])[facility])[address] [place] [address] Platelet mean volume (Bld) [Entitic vol] 10.7 fL Normal 9.0-12.7 [facility] Comment on above: Performed By: #### L [id number] ####Composite Assembler: DANNA WYMAN ([id number])[facility])[address] [place] [address] Platelets (Bld) [#/Vol] 306 10*3/uL Normal 140-440 [facility] Comment on above: Performed By: #### L [id number] ####Composite Assembler: DANNA WYMAN ([id number])[facility])[address] [place] [address] RBC (Bld) [#/Vol] 3.38 10*6/uL Low 4.40-5.90 [facility] Comment on above: Performed By: #### L [id number] ####Composite Assembler: DANNA WYMAN ([id number])[facility])[address] [place] [address] WBC (Bld) [#/Vol] 4.4 10*3/uL Normal 3.6-10.7 [facility] Comment on above: Performed By: #### L [id number] ####Composite Assembler: DANNA WYMAN ([id number])[facility])[address] [place] [address] CBC panel Auto (Bld)on 07-13 Erythrocyte distribution width (RBC) [Ratio] 14.1 % 11.5 - 15.0 % [facility] Hematocrit (Bld) [Volume fraction] 32.4 % Low 40.0 - 52.0 % [facility] Hemoglobin (Bld) [Mass/Vol] 11 g/dL Low 13.0 - 18.0 g/dL [facility] Interpretation and review of laboratory results Abnormal [facility] MCH (RBC) [Entitic mass] 32.5 pg 26.0 - 34.[address] [facility] MCHC (RBC) [Mass/Vol] 34 % 30.5 - 36.0 % [facility] MCV (RBC) [Entitic vol] 95.9 fL 77.0 - 99.[address] [facility] Platelet mean volume (Bld) [Entitic vol] 10.7 fL 9.0 - 12.[address] [facility] Platelets (Bld) [#/Vol] 306 10*3/uL 140 - 440 10*3/uL [facility] RBC (Bld) [#/Vol] 3.38 10*6/uL Low 4.40 - 5.9 0 10*6/uL [facility] WBC (Bld) [#/Vol] 4.4 10*3/uL 3.6 - 10.7 10*3/uL [facility] COMPREHENSIVE METABOLIC PANE [place] 07-13-2024 Albumin [Mass/Vol] 3.1 g/dL Low 3.4-4.8 [facility] Comment on above: Performed By: #### L AB17 ####Composite Assembler: DANNA WYMAN ([id number])[address] ALP [Catalytic activity/Vol] 70 U/L Normal 40-150 [facility] Comment on above: Performed By: #### L AB17 ####Composite Assembler: DANNA WYMAN ([id number])[facility])[address] [place] [address] ALT [Catalytic activity/Vol] 18 U/L Normal <40 [facility] Comment on above: Performed By: #### L AB17 ####Composite Assembler: DANNA WYMAN ([id number])[facility])[address] [place] [address] Anion gap [Moles/Vol] 5 mmol/L Normal 3-13 [facility] Comment on above: Performed By: #### L AB17 ####Composite Assembler: DANNA WYMAN ([id number])[facility])[address] [place] [address] AST [Catalytic activity/Vol] 48 U/L High <34 [facility] Comment on above: Result Comment: TC Significant interference from hemolysis. Result integrity compromised. Interpret with caution. Performed By: #### L AB17 ####Composite Assembler: DANNA WYMAN ([id number])[facility])[address] [place] [address] Bilirubin [Mass/Vol] 0.3 mg/dL Normal <1.2 [facility] Comment on above: Performed By: #### L AB17 ####Composite Assembler: DANNA WYMAN ([id number])[facility])[address] [place] [address] Calcium [Mass/Vol] 8.6 mg/dL Low 8.8-10.0 [facility] Comment on above: Performed By: #### L AB17 ####Composite Assembler: DANNA WYMAN ([id number])[facility])[address] [place] [address] [place] Chloride [Moles/Vol] 100 mmol/L Normal 98-107 [facility] Comment on above: Performed By: #### L AB17 ####Composite Assembler: DANNA WYMAN ([id number])[facility])[address] [place] [address] [place] CO2 [Moles/Vol] 23 mmol/L Normal 23-31 [facility] Comment on above: Performed By: #### L AB17 ####Composite Assembler: DANNA WYMAN ([id number])[facility])[address] [place] [address] [place] Creatinine [Mass/Vol] 1.32 mg/dL High 0.72-1.25 [facility] Comment on above: Performed By: #### L AB17 ####Composite Assembler: DANNA WYMAN ([id number])[facility])[address] [place] [address] [place] GLOMERULAR FILTRATION RATE ML/MIN/1.73 SQ M.PREDICTED 58.8 mL/min/1.73m*2 Low >60.0 [facility] Comment on above: Result Comment: Calc ulation based on the Chronic Kidney Disease Epidemiology Collaboration (CKD-EPI) equation refit without adjustment for race Performed By: #### L AB17 ####Composite Assembler: DANNA WYMAN ([id number])[facility])[address] [place] [address] Glucose [Mass/Vol] 71 mg/dL Low 82-115 [facility] Comment on above: Performed By: #### L AB17 ####Composite Assembler: DANNA WYMAN ([id number])[facility])[address] [place] [address] Potassium [Moles/Vol] 5.2 mmol/L High 3.5-5.1 [facility] Comment on above: Result Comment: TC Significant interference from hemolysis. Result integrity compromised. Interpret with caution. Performed By: #### L AB17 ####Composite Assembler: DANNA WYMAN ([id number])[facility])[address] [place] [address] Protein [Mass/Vol] 6.6 g/dL Normal 6.4-8.3 [facility] Comment on above: Result Comment: TC Potential interference from hemolysis Performed By: #### L AB17 ####Composite Assembler: DANNA WYMAN ([id number])[facility])[address] [place] [address] Sodium [Moles/Vol] 128 mmol/L Low 136-145 [facility] Comment on above: Performed By: #### L AB17 ####Composite Assembler: DANNA WYMAN ([id number])[facility])[address] [place] [address] Urea nitrogen [Mass/Vol] 30 mg/dL High 9-23 [facility] Comment on above: Performed By: #### L AB17 ####Composite Assembler: DANNA WYMAN ([id number])[facility])[address] [place] [address] Comprehensive metabolic 1998 panelOrdered By: Patsy Pacheco on 07-13-2024 Albumin [Mass/Vol] 3.1 g/dL Low 3.4 - 4.8 g/dL [facility] ALP [Catalytic activity/Vol] 70 U/L 40 - 150 U/L [facility] ALT [Catalytic activity/Vol] 18 U/L NINF - 40 U/L [facility] Anion gap [Moles/Vol] 5 mmol/L 3 - 13 mmol/L [facility] AST [Catalytic activity/Vol] 48 U/L High NINF - 34 U/L [facility] Comment on above: TC Significant interference from hemolysis. Result integrity compromised. Interpret with caution. Bilirubin [Mass/Vol] 0.3 mg/dL NINF - 1.2 mg/dL [facility] Calcium [Mass/Vol] 8.6 mg/dL Low 8.8 - 10. 0 mg/dL [facility] Chloride [Moles/Vol] 100 mmol/L 98 - 10 7 mmol/L [facility] CO2 [Moles/Vol] 23 mmol/L 23 - 31 mmol/L [facility] Creatinine [Mass/Vol] 1.32 mg/dL High 0.72 - 1.25 mg/dL [facility] GFR/1.73 sq M.predicted (S/P/Bld) [Vol rate/Area] 58.8 mL/min Low - PINF [facility] Comment on above: Calculation based on the Chronic Kidney Disease Epidemiology Collaboration (CKD-EPI) equation refit without adjustment for race Glucose [Mass/Vol] 71 mg/dL Low 82 - 115 mg/dL [facility] Interpretation and review of laboratory results Abnormal [facility] Potassium [Moles/Vol] 5.2 mmol/L High 3.5 - 5.1 mmol/L [facility] Comment on above: TC Significant interference from hemolysis. Result integrity compromised. Interpret with caution. Protein [Mass/Vol] 6.6 g/dL 6.4 - 8.3 g/dL [facility] Comment on above: TC Potential interference from hemolysis Sodium [Moles/Vol] 128 mmol/L Low 136 - 145 mmol/L [facility] Urea nitrogen [Mass/Vol] 30 mg/dL High 9 - 23 mg/dL [facility] Nursing Noteon 07-13-2024 Nursing Note Pt alert and oriente d, med compliant, pt denies SI/HI/AVH, NV&D. Pt pleasant and cooperative appears to be forgetful at times, but answers all orientation questions correctly. Pts forehead laceration cleansed with saline and bacitracin applied and new gauze covering sutures with tape. Pt up and steady and walking in the hazel. Pt encouraged to update staff with any change in condition. Will monitor pt for safety. Normal [facility] Nursing Note Patient has been mor e awake this afternoon. He has been out in the day room a few times and social to peers and staff. Normal [facility] Nursing Note Patient is alert and oriented x4 now. Earlier this morning when being awoken a few times for medications he did appear disoriented to situation. Asking why he was here on the detox unit and why he was still in the hospital. Patient this morning did need educated on his admission and why he was here. As the day went on he was more oriented on why he was on the detox floor. He has been med compliant. Denies SI/HI/AVH at this time. He is up independently with a steady gait. He has been friendly, cooperative, and social. He has had a good appetite today and drinking well. Will continue to monitor, safety maintained. Normal [facility] Nursing Note Former smoker [facility] Nursing Note Former smoker [facility] Nursing Note Patient stated he wa s drinking approximately a 6 pack of beer and some liquor roughly 3 - 4 days per week. Last use 07/10. Skin check done. Rules explained. Forms signed. Albuterol inhaler given for wheezing. Pt up and steady. Pt denies SI/HI/AVH at this time. Pt reports a decreased appetite recently. Pt IV is clean, dry and intact. [facility] 36on 07-12-2024 36 Name of Caller: Cesar guadarrama Contact Physician requesting Consult: Junior Jaramillo Patient Location (facility name, room, bed number): [address] BED A Patient Diagnosis/Reason for Consult:ALCOHOL WITHDRAW Provider being paged: Arnold Time page was sent: 7:57 AM Department of provider being paged: [facility] Behavioral Health Page Content: Message sent via Secure Chat ROUTINE CONSULT JAZ [address] [place] [address] RE PATIENT MESSI NOVEMBER 1955 [facility] [place] [facility] [address] A REFERRING DOCTOR LANG Normal [facility] CBC (HEMOGRAM)on 07-12-2024 Erythrocyte distribution width (RBC) [Ratio] 13.9 % Normal 11.5-15.0 [facility] Comment on above: Performed By: #### L [id number] ####Composite Assembler: DANNA WYMAN ([id number])[facility])[address] [place] [address] Hematocrit (Bld) [Volume fraction] 30.2 % Low 40.0-52.0 [facility] Comment on above: Performed By: #### L [id number] ####Composite Assembler: DANNA WYMAN ([id number])[facility])[address] [place] [address] Hemoglobin (Bld) [Mass/Vol] 10.3 g/dL Low 13.0-18.0 [facility] Comment on above: Performed By: #### L [id number] ####Composite Assembler: DANNA WYMAN ([id number])[facility])[address] [place] [address] MCH (RBC) [Entitic mass] 32.5 pg Normal 26.0-34.0 [facility] Comment on above: Performed By: #### L [id number] ####Composite Assembler: DANNA WYMAN ([id number])[facility])[address] [place] [address] MCHC 34.1 % Normal 30.5-36.0 [facility] Comment on above: Performed By: #### L [id number] ####Composite Assembler: DANNA WYMAN ([id number])[facility])[address] [place] [address] MCV (RBC) [Entitic vol] 95.3 fL Normal 77.0-99.0 [facility] Comment on above: Performed By: #### L [id number] ####Composite Assembler: DANNA WYMAN ([id number])[facility])[address] [place] [address] Platelet mean volume (Bld) [Entitic vol] 9.9 fL Normal 9.0-12.7 [facility] Comment on above: Performed By: #### L [id number] ####Composite Assembler: DANNA WYMAN ([id number])[facility])[address] [place] [address] Platelets (Bld) [#/Vol] 266 10*3/uL Normal 140-440 [facility] Comment on above: Performed By: #### L [id number] ####Composite Assembler: DANNA WYMAN ([id number])[facility])[address] [place] [address] RBC (Bld) [#/Vol] 3.17 10*6/uL Low 4.40-5.90 [facility] Comment on above: Performed By: #### L [id number] ####Composite Assembler: DANNA WYMAN ([id number])[facility])[address] [place] [address] WBC (Bld) [#/Vol] 5.2 10*3/uL Normal 3.6-10.7 [facility] Comment on above: Performed By: #### L [id number] ####Composite Assembler: DANNA WYMAN ([id number])[facility])[address] [place] [address] CBC panel Auto (Bld)Ordered By: Neelima Marie on 07-12-2024 Erythrocyte distribution width (RBC) [Ratio] 13.9 % 11.5 - 15.0 % [facility] Hematocrit (Bld) [Volume fraction] 30.2 % Low 40.0 - 52.0 % [facility] Hemoglobin (Bld) [Mass/Vol] 10.3 g/dL Low 13.0 - 18.0 g/dL [facility] Interpretation and review of laboratory results Abnormal [facility] MCH (RBC) [Entitic mass] 32.5 pg 26.0 - 34.[address] [facility] MCHC (RBC) [Mass/Vol] 34.1 % 30.5 - 36.0 % [facility] MCV (RBC) [Entitic vol] 95.3 fL 77.0 - 99.[address] [facility] Platelet mean volume (Bld) [Entitic vol] 9.9 fL 9.0 - 12.[address] [facility] Platelets (Bld) [#/Vol] 266 10*3/uL 140 - 440 10*3/uL [facility] RBC (Bld) [#/Vol] 3.17 10*6/uL Low 4.40 - 5.9 0 10*6/uL [facility] WBC (Bld) [#/Vol] 5.2 10*3/uL 3.6 - 10.7 10*3/uL [facility] COMPREHENSIVE METABOLIC PANE [place] 07-12-2024 Albumin [Mass/Vol] 2.8 g/dL Low 3.4-4.8 [facility] Comment on above: Performed By: #### L [id number], [id number], LAB17 ####Composite Assembler: DANNA WYMAN ([id number])[facility])[address] [place] [address] ALP [Catalytic activity/Vol] 115 U/L Normal 40-150 [facility] Comment on above: Performed By: #### Norm [id number], [id number], LAB17 ####Composite Assembler: DANNA WYMAN ([id number])[facility])[address] [place] [address] ALT [Catalytic activity/Vol] 15 U/L Normal <40 [facility] Comment on above: Performed By: #### Norm [id number], [id number], LAB17 ####Composite Assembler: DANNA WYMAN ([id number])[facility])[address] [place] [address] Anion gap [Moles/Vol] 3 mmol/L Normal 3-13 [facility] Comment on above: Performed By: #### L [id number], [id number], LAB17 ####Composite Assembler: DANNA WYMAN ([id number])[facility])[address] [place] [address] AST [Catalytic activity/Vol] 33 U/L Normal <34 [facility] Comment on above: Performed By: #### L [id number], [id number], LAB17 ####Composite Assembler: DANNA WYMAN ([id number])[facility])[address] [place] [address] Bilirubin [Mass/Vol] 0.5 mg/dL Normal <1.2 [facility] Comment on above: Performed By: #### L [id number], [id number], LAB17 ####Composite Assembler: DANNA WYMAN ([id number])[facility])[address] [place] [address] Calcium [Mass/Vol] 7.5 mg/dL Low 8.8-10.0 [facility] Comment on above: Performed By: #### L [id number], [id number], LAB17 ####Composite Assembler: DANNA WYMAN ([id number])[facility])[address] [place] [address] Chloride [Moles/Vol] 104 mmol/L Normal 98-107 [facility] Comment on above: Performed By: #### L [id number], [id number], LAB17 ####Composite Assembler: DANNA WYMAN ([id number])[facility])[address] [place] [address] CO2 [Moles/Vol] 24 mmol/L Normal 23-31 [facility] Comment on above: Performed By: #### L [id number], [id number], LAB17 ####Composite Assembler: DANNA WYMAN ([id number])[facility])[address] [place] [address] Creatinine [Mass/Vol] 1.23 mg/dL Normal 0.72-1.25 [facility] Comment on above: Performed By: #### L [id number], [id number], LAB17 ####Composite Assembler: DANNA WYMAN ([id number])[facility])[address] [place] [address] GLOMERULAR FILTRATION RATE ML/MIN/1.73 SQ M.PREDICTED 63.9 mL/min/1.73m*2 Normal >60.0 [facility] Comment on above: Result Comment: Calc ulation based on the Chronic Kidney Disease Epidemiology Collaboration (CKD-EPI) equation refit without adjustment for race Performed By: #### Norm [id number], [id number], LAB17 ####Composite Assembler: DANNA WYMAN ([id number])[facility])[address] [place] [address] Glucose [Mass/Vol] 77 mg/dL Low 82-115 [facility] Comment on above: Performed By: #### Norm [id number], [id number], LAB17 ####Composite Assembler: DANNA WYMAN ([id number])[facility])[address] [place] [address] Potassium [Moles/Vol] 3.9 mmol/L Normal 3.5-5.1 [facility] Comment on above: Result Comment: [facility] potassium values may be up to 0.5 mmol/L lower than serum values. Performed By: #### Norm [id number], [id number], LAB17 ####Composite Assembler: DANNA WYMAN ([id number])[facility])[address] [place] [address] Protein [Mass/Vol] 5.5 g/dL Low 6.4-8.3 [facility] Comment on above: Performed By: #### L [id number], [id number], LAB17 ####Composite Assembler: DANNA WYMAN ([id number])[facility])[address] [place] [address] [place] Sodium [Moles/Vol] 131 mmol/L Low 136-145 [facility] Comment on above: Performed By: #### L [id number], [id number], LAB17 ####Composite Assembler: DANNA WYMAN ([id number])[facility])[address] [place] [address] [place] Urea nitrogen [Mass/Vol] 20 mg/dL Normal 9-23 [facility] Comment on above: Performed By: #### L [id number], [id number], LAB17 ####Composite Assembler: DANNA WYMAN ([id number])[facility] [place] [address] Comprehensive metabolic 1998 panelon 07-12-2024 Albumin [Mass/Vol] 2.8 g/dL Low 3.4 - 4.8 g/dL [facility] ALP [Catalytic activity/Vol] 115 U/L 40 - 150 U/L [facility] ALT [Catalytic activity/Vol] 15 U/L NINF - 40 U/L [facility] Anion gap [Moles/Vol] 3 mmol/L 3 - 13 mmol/L [facility] AST [Catalytic activity/Vol] 33 U/L NINF - 34 U/L [facility] Bilirubin [Mass/Vol] 0.5 mg/dL NINF - 1.2 mg/dL [facility] Calcium [Mass/Vol] 7.5 mg/dL Low 8.8 - 10. 0 mg/dL [facility] Chloride [Moles/Vol] 104 mmol/L 98 - 10 7 mmol/L [facility] CO2 [Moles/Vol] 24 mmol/L 23 - 31 mmol/L [facility] Creatinine [Mass/Vol] 1.23 mg/dL 0.72 - 1.25 mg/dL [facility] GFR/1.73 sq M.predicted (S/P/Bld) [Vol rate/Area] 63.9 mL/min - PINF [facility] Comment on above: Calculation based on the Chronic Kidney Disease Epidemiology Collaboration (CKD-EPI) equation refit without adjustment for race Glucose [Mass/Vol] 77 mg/dL Low 82 - 115 mg/dL [facility] Interpretation and review of laboratory results Abnormal [facility] Potassium [Moles/Vol] 3.9 mmol/L 3.5 - 5.1 mmol/L [facility] Comment on above: Plasma potassium savi ues may be up to 0.5 mmol/L lower than serum values. Protein [Mass/Vol] 5.5 g/dL Low 6.4 - 8.3 g/dL [facility] Sodium [Moles/Vol] 131 mmol/L Low 136 - 145 mmol/L [facility] Urea nitrogen [Mass/Vol] 20 mg/dL 9 - 23 mg/dL [facility] Consulton 07-12-2024 Consult [facility] Consult service H&P Admit Date: 07/11/2024 Primary Care Physician: John Springer MD ] Chief Complaint Patient presents with Alcohol Problem Patient with daughter for alcohol detox , last drink yesterday, drink amount varies but most recently drinking 1/2 bottle of vodka daily, denies hx of seizures with withdrawal Substance dependence disorder History of Present Illness Messi Waldrop is a 69 y.o. year old male with a history of alcohol use disorder Patient was seen earlier this year for an admission that required alcohol detox however after discharge she resumed drinking right away He drinks was equivalent to 12 of the 12 ounce beers daily Patient is a his last drink was 3 days ago Patient denies any history withdrawal seizures Denies any history of DTs Denies history of other drug use He had DUIs in the past Patient states that he only started drinking 5 to 6 years ago after his 26 patient stated that he could not get over that since then years marriage ended by his leaving him Patient denies any history of IV drug use Denies any history of overdoses Patient denies any history of psych hospitalization Denies any suicidal or homicidal ideation currently remotely Denies any childhood trauma or PTSD however from the way he is talking about his leaving him probably he has undiagnosed PTSD Upon admission his urine drug screen was negative and his ethanol level was negative as well which is explained by his last drink was more than 3 days ago Patient had an incidental fall he thinks it is related to his inner ear after he went through chemotherapy for his throat cancer Substance Use Disorder Criteria 1. Taking substance in larger amounts and/or for longer than intended [x] 2. Wanting to cut down or quit substance use but not being able to [x] 3. Spending a lot of time obtaining the substance [x] 4. Craving or a strong desire to use substance [x] 5. Repeatedly doesn't carry out major obligations due to substance use [x] 6. Using despite recurring social or interpersonal problems caused by substance use [x] 7. Reducing social, occupational, or recreational activities due to substance use [x] 8. Recurrent use of substance in physically hazardous situations [x] 9. Consistent use of substance despite recurrent physical or psychological difficulties [x] 10. Tolerance (increased amounts to achieve intoxication or diminished effect) [x] 11. 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 COPD (chronic obstructive pulmonary disease) ([facility]) Elevated blood pressure Essential (primary) hypertension 07/08/2017 Hyperlipidemia Indigestion Insomnia Prediabetes Umbilical hernia Past Surgical History: Procedure Laterality Date COLONOSCOPY DENTAL SURGERY EYE SURGERY Bilateral cataract surgery LARYNGOSCOPY 03/04/2020 fine needle aspiration biopsy right neck mass and right base of tounge biopsy - dr steiner LASEL TONSILLECTOMY (HISTORICAL) Right 03/04/2020 dr steiner Family History Problem Relation Name Age of Onset Diabetes Mother Diabetes Sister Diabetes Brother Social History Socioeconomic History Marital status: Single Spouse name: Not on file Number of children: Not on file Years of education: Not on file Highest education level: Not on file Occupational History Not on file Tobacco Use Smoking status: Former Current packs/day: 0.00 Types: Cigarettes Quit date: 09/16/1997 Years since quittin.8 Passive exposure: Past Smokeless tobacco: Current Tobacco comments: On Smokeless Tobacco Vaping Use Vaping status: Never Used Substance and Sexual Activity Alcohol use: Yes Alcohol/week: 42.0 standard drinks of alcohol Drug use: No Sexual activity: Yes Other Topics Concern Not on file Social History Narrative Merged History Encounter Social Drivers of Health Financial Resource Strain: Low Risk (10/26/2021) Received from [facility] Overall Financial Resource Strain (CARDIA) Difficulty of Paying Living Expenses: Not hard at all Food Insecurity: No Food Insecurity (10/26/2021) Received from [facility] Hunger Vital Sign Worried About Running Out of Food in the Last Year: Never true Ran Out of Food in the Last Year: Never true Transportation Needs: No Transportation Needs (09/30/2020) [facility] PRAPARE - Transportation Lack of Transportation (Medical): No Lack of Transportation (Non-Medical): N (more content not included)... Normal [facility] ECG 12-LEADon 07-12-2024 ECG 12-LEAD IMPRESSION: Atrial fibrillation Ventricular premature complex Borderline prolonged QT interval Electronically Signed On 07-12-2024 00:21:17 EST by Naina Evans Normal [facility] ED Nursing Noteon 07-12-2024 ED Nursing Note Provided wound dress ing on this pt on his forehead, provided food and drink as requested as well. Normal [facility] HIGH SENSITIVITY TROPONIN, S ERIAL, SECOND TESTon 07-12-2024 TROPONIN HS DELTA, BASELINE TO SECOND -3 ng/L Normal <=2 [facility] Comment on above: Result Comment: This specimen was collected more than 20 minutes away from the 2 hour target. Use of this delta with the 2 hour troponin algorithm is not recommended, individualized clinical assessment is needed. A troponin delta greater than or equal to 15 ng/L is significant for acute cardiac injury. Values less than 15 but greater than 2 are an intermediate change requiring a 3rd serial troponin to be drawn. Values less than or equal to 2 indicate acute cardiac injury is not likely, see external algorithms for further clinical guidance. Performed By: #### L [id number], [id number], LAB17 ####Composite Assembler: DANNA WYMAN ([id number])[address] TROPONIN HS, SERIAL REFLEX, TEST TWO 6 ng/L Normal <=35 [facility] Comment on above: Performed By: #### L [id number], [id number], LAB17 ####Composite Assembler: DANNA WYMAN ([id number])[address] Laboratory - Chemistry and C hemistry - challengeon 07-12-2024 Glucose [Mass/Vol] 108 mg/dL High 70 - 100 mg/dL [facility] Glucose [Mass/Vol] 105 mg/dL High 70 - 100 mg/dL [facility] Glucose [Mass/Vol] 100 mg/dL 70 - 100 mg/dL [facility] Magnesium [Mass/Vol] 1.7 mg/dL 1.6 - 2 .6 mg/dL [facility] MAGNESIUMon 07-12-2024 Magnesium [Mass/Vol] 1.7 mg/dL Normal 1.6-2.6 [facility] Comment on above: Result Comment: ROOPA R COMMENTS: Higher values can be expected in females during menses. Performed By: #### L [id number], [id number], LAB17 ####Composite Assembler: DANNA WYMAN ([id number])[facility] ([facility])[address] [place] [address] [place] Magnesium [Mass/Vol]on 07-12 Interpretation and review of laboratory results Normal [facility] Higher values can be expected in females during menses. [facility] No Panel Informationon 07-12 Interpretation and review of laboratory results Abnormal [facility] Performed by: [facility], [address] [place] [address] CLIA ID: [id number] [facility] Interpretation and review of laboratory results Abnormal [facility] Performed by: [facility] [employer] Lab, [address] [place] [address] CLIA ID: [id number] [facility] Interpretation and review of laboratory results Normal [facility] Performed by: [facility] [employer] Lab, [address] [place] [address] CLIA ID: [id number] [facility] Troponin HS Delta, Baseline to Second -3 ng/L [facility] - 2 ng/L [facility] Comment on above: This specimen was co llected more than 20 minutes away from the 2 hour target. Use of this delta with the 2 hour troponin algorithm is not recommended, individualized clinical assessment is needed. A troponin delta greater than or equal to 15 ng/L is significant for acute cardiac injury. Values less than 15 but greater than 2 are an intermediate change requiring a 3rd serial troponin to be drawn. Values less than or equal to 2 indicate acute cardiac injury is not likely, see external algorithms for further clinical guidance. Troponin HS, Serial Second 6 ng/L NINF - 35 ng/L [facility] Atrial fibrillation Ventricular premature complex Borderline prolonged QT interval Electronically Signed On 07-12-2024 00:21:17 EST by Naina Camara MD - 07/12/2024 IMPRESSION: Atrial fibrillation Ventricular premature complex Borderline prolonged QT interval Electronically Signed On 07-12-2024 00:21:17 EST by Naina Evans [employer] Panel InformationOrdered By: Naina Evans on 07-12-2024 P [place] 0 degrees [employer] Phone: NE Interval 0 ms [employer] Phone: QRS [place] 17 degrees [employer] Phone: QRSD Interval 88 ms [employer] Phone: QT Interval 322 ms [employer] Phone: QTC Interval 477 ms [employer] Phone: T Wave [place] 38 degrees [employer] Phone: [employer] Phone: Nursing Noteon 07-12-2024 Nursing Note Patient educated on the policy regarding belongings on 4E. Reviewed patient belongings with patient and security at bedside, with patient consent. Security zip-tied patient belongings. Normal [facility] Nursing Note Report given to 4N receiving nurse. Pt prepared for transfer, awaiting transport. Normal [facility] Vital signsOrdered By: Naina Evans on 07-12-2024 Heart rate 132 /min bpm [employer] Phone: CBC W Auto Differential pane l (Bld)Ordered By: Khushboo Thompson on 07-11-2024 Basophils (Bld) [#/Vol] 0 10*3/uL 0.0 - 0.2 10*3/uL [employer] Basophils/100 WBC (Bld) 0.7 % 0.0 - 2.0 % [employer] Eosinophils (Bld) [#/Vol] 0.1 10*3/uL 0.0 - 0.5 10*3/uL [employer] Eosinophils/100 WBC (Bld) 1.2 % 0.0 - 6.0 % [employer] Erythrocyte distribution width (RBC) [Ratio] 14 % 11.5 - 15.0 % [employer] Hematocrit (Bld) [Volume fraction] 37 % Low 40.0 - 52.0 % [employer] Hemoglobin (Bld) [Mass/Vol] 12.6 g/dL Low 13.0 - 18.0 g/dL [facility] Immature granulocytes (Bld) [#/Vol] 0 10*3/uL NINF - 0.1 10*3/uL [facility] Immature granulocytes/100 WBC (Bld) 0.5 % 0.0 - 2.0 % [facility] Interpretation and review of laboratory results Abnormal [facility] Lymphocytes (Bld) [#/Vol] 0.4 10*3/uL Low 1.0 - 4.3 10*3/uL [facility] Lymphocytes/100 WBC (Bld) 7.6 % Low 15.0 - 45.0 % [facility] MCH (RBC) [Entitic mass] 32.5 pg 26.0 - 34.[address] [facility] MCHC (RBC) [Mass/Vol] 34.1 % 30.5 - 36.0 % [facility] MCV (RBC) [Entitic vol] 95.4 fL 77.0 - 99.[address] [facility] Monocytes (Bld) [#/Vol] 0.5 10*3/uL 0.0 - 0.9 10*3/uL [facility] Monocytes/100 WBC (Bld) 8.1 % 5.0 - 13.0 % [facility] Neutrophils (Bld) [#/Vol] 4.7 10*3/uL 1.8 - 7.5 10*3/uL [facility] Neutrophils/100 WBC (Bld) 81.9 % 38.0 - 82.0 % [facility] Nucleated RBC/100 WBC (Bld) [Ratio] 0 % [facility] Platelet mean volume (Bld) [Entitic vol] 9.6 fL 9.0 - 12.[address] [facility] Platelets (Bld) [#/Vol] 319 10*3/uL 140 - 440 10*3/uL [facility] RBC (Bld) [#/Vol] 3.88 10*6/uL Low 4.40 - 5.9 0 10*6/uL [facility] WBC (Bld) [#/Vol] 5.8 10*3/uL 3.6 - 10.7 10*3/uL [facility] CBC WITH AUTO DIFFERENTIALon 07-11-2024 Basophils (Bld) [#/Vol] 0.0 10*3/uL Normal 0.0-0.2 [facility] Comment on above: Performed By: #### L [id number] ####Composite Assembler: DANNA WYMAN ([id number])[address] Basophils/100 WBC (Bld) 0.7 % Normal 0.0-2.0 [facility] Comment on above: Performed By: #### L [id number] ####Composite Assembler: DANNA WYMAN ([id number])[facility])[address] [place] [address] Eosinophils (Bld) [#/Vol] 0.1 10*3/uL Normal 0.0-0.5 [facility] Comment on above: Performed By: #### L [id number] ####Composite Assembler: DANNA WYMAN ([id number])[address] Eosinophils/100 WBC (Bld) 1.2 % Normal 0.0-6.0 [facility] Comment on above: Performed By: #### L [id number] ####Composite Assembler: DANNA WYMAN ([id number])[address] Erythrocyte distribution width (RBC) [Ratio] 14.0 % Normal 11.5-15.0 [facility] Comment on above: Performed By: #### L [id number] ####Composite Assembler: DANNA WYMAN ([id number])[address] Hematocrit (Bld) [Volume fraction] 37.0 % Low 40.0-52.0 [facility] Comment on above: Performed By: #### L [id number] ####Composite Assembler: DANNA WYMAN ([id number])[address] Hemoglobin (Bld) [Mass/Vol] 12.6 g/dL Low 13.0-18.0 [facility] Comment on above: Performed By: #### L [id number] ####Composite Assembler: DANNA WYMAN ([id number])[facility])[address] [place] [address] IMMATURE GRANS % 0.5 % Normal 0.0-2.[address] [facility] Comment on above: Performed By: #### L [id number] ####Composite Assembler: DANNA WYMAN ([id number])[facility])[address] [place] [address] IMMATURE GRANS ABSOLUTE 0.0 10*3/uL Normal <0.[address] [facility] Comment on above: Performed By: #### L [id number] ####Composite Assembler: DANNA WYMAN ([id number])[facility])[address] [place] [address] Lymphocytes (Bld) [#/Vol] 0.4 10*3/uL Low 1.0-4.[address] [facility] Comment on above: Performed By: #### L [id number] ####Composite Assembler: DANNA WYMAN ([id number])[facility])[address] [place] [address] Lymphocytes/100 WBC (Bld) 7.6 % Low 15.0-45.[address] [facility] Comment on above: Performed By: #### L [id number] ####Composite Assembler: DANNA WYMAN ([id number])[facility])[address] [place] [address] MCH (RBC) [Entitic mass] 32.5 pg Normal 26.0-34.0 [facility] Comment on above: Performed By: #### L [id number] ####Composite Assembler: DANNA WYMAN ([id number])[facility])[address] [place] [address] MCHC 34.1 % Normal 30.5-36.[address] [facility] Comment on above: Performed By: #### L [id number] ####Composite Assembler: DANNA WYMAN ([id number])[facility])[address] [place] [address] MCV (RBC) [Entitic vol] 95.4 fL Normal 77.0-99.0 [facility] Comment on above: Performed By: #### L [id number] ####Composite Assembler: DANNA WYMAN ([id number])[facility])[address] [place] [address] Monocytes (Bld) [#/Vol] 0.5 10*3/uL Normal 0.0-0.9 [facility] Comment on above: Performed By: #### L [id number] ####Composite Assembler: DANNA WYMAN ([id number])[facility] ([facility])[address] [place] [address] Monocytes/100 WBC (Bld) 8.1 % Normal 5.0-13.0 [facility] Comment on above: Performed By: #### L [id number] ####Composite Assembler: DANNA WYMAN ([id number])[facility] ([facility])[address] [place] [address] NEUTROPHILS ABSOLUTE 4.7 10*3/uL Normal 1.8-7.5 [facility] Comment on above: Performed By: #### L [id number] ####Composite Assembler: DANNA WYMAN ([id number])[facility])[address] [place] [address] Neutrophils/100 WBC (Bld) 81.9 % Normal 38.0-82.0 [facility] Comment on above: Performed By: #### L [id number] ####Composite Assembler: DANNA WYMAN ([id number])[facility])[address] [place] [address] NRBC 0.0 /100 WBCs Normal 0.0-2.0 [facility] Comment on above: Performed By: #### L [id number] ####Composite Assembler: DANNA WYMAN ([id number])[facility])[address] [place] [address] Platelet mean volume (Bld) [Entitic vol] 9.6 fL Normal 9.0-12.7 [facility] Comment on above: Performed By: #### L [id number] ####Composite Assembler: DANNA WYMAN ([id number])[facility] ([facility])[address] [place] [address] Platelets (Bld) [#/Vol] 319 10*3/uL Normal 140-440 [facility] Comment on above: Performed By: #### L [id number] ####Composite Assembler: DANNA WYMAN ([id number])[facility] ([facility])[address] [place] [address] RBC (Bld) [#/Vol] 3.88 10*6/uL Low 4.40-5.90 [facility] Comment on above: Performed By: #### L [id number] ####Composite Assembler: DANNA WYMAN ([id number])[facility] ([facility])[address] [place] [address] WBC (Bld) [#/Vol] 5.8 10*3/uL Normal 3.6-10.7 [facility] Comment on above: Performed By: #### L [id number] ####Composite Assembler: DANNA WYMAN ([id number])[facility] ([facility])[address] [place] [address] COMPREHENSIVE METABOLIC PANE [facility] 07-11-2024 Albumin [Mass/Vol] 3.5 g/dL Normal 3.4-4.8 [facility] Comment on above: Performed By: #### L AB103, LAB46, LAB17, [id number] ####Composite Assembler: DANNA WYMAN ([id number])[facility] ([facility])[address] [place] [address] ALP [Catalytic activity/Vol] 81 U/L Normal 40-150 [facility] Comment on above: Performed By: #### L AB103, LAB46, LAB17, [id number] ####Composite Assembler: DANNA WYMAN ([id number])[facility])[address] [place] [address] ALT [Catalytic activity/Vol] 25 U/L Normal <40 [facility] Comment on above: Performed By: #### L AB103, LAB46, LAB17, [id number] ####Composite Assembler: DANNA WYMAN ([id number])[facility])[address] [place] [address] Anion gap [Moles/Vol] 8 mmol/L Normal 3-13 [facility] Comment on above: Performed By: #### L AB103, LAB46, LAB17, [id number] ####Composite Assembler: DANNA WYMAN ([id number])[facility] ([facility])[address] [place] [address] AST [Catalytic activity/Vol] 43 U/L High <34 [facility] Comment on above: Performed By: #### Norm AB103, LAB46, LAB17, [id number] ####Composite Assembler: DANNA WYMAN ([id number])[facility] ([facility])[address] [place] [address] Bilirubin [Mass/Vol] 0.8 mg/dL Normal <1.2 [facility] Comment on above: Performed By: #### L AB103, LAB46, LAB17, [id number] ####Composite Assembler: DANNA WYMAN ([id number])[facility] ([facility])[address] [place] [address] Calcium [Mass/Vol] 8.9 mg/dL Normal 8.8-10.0 [facility] Comment on above: Performed By: #### Norm AB103, LAB46, LAB17, [id number] ####Composite Assembler: DANNA WYMAN ([id number])[facility] ([facility])[address] [place] [address] Chloride [Moles/Vol] 95 mmol/L Low 98-107 [facility] Comment on above: Performed By: #### L AB103, LAB46, LAB17, [id number] ####Composite Assembler: DANNA WYMAN ([id number])[facility])[address] [place] [address] CO2 [Moles/Vol] 26 mmol/L Normal 23-31 [facility] Comment on above: Performed By: #### L AB103, LAB46, LAB17, [id number] ####Composite Assembler: DANNA WYMAN ([id number])[facility])[address] [place] [address] Creatinine [Mass/Vol] 1.49 mg/dL High 0.72-1.25 [facility] Comment on above: Performed By: #### L AB103, LAB46, LAB17, [id number] ####Composite Assembler: DANNA WYMAN ([id number])[facility] ([facility])[address] [place] [address] GLOMERULAR FILTRATION RATE ML/MIN/1.73 SQ M.PREDICTED 50.8 mL/min/1.73m*2 Low >60.0 [facility] Comment on above: Result Comment: Calc ulation based on the Chronic Kidney Disease Epidemiology Collaboration (CKD-EPI) equation refit without adjustment for race Performed By: #### L AB103, LAB46, LAB17, [id number] ####Composite Assembler: DANNA WYMAN ([id number])[facility] ([facility])[address] [place] [address] [place] Glucose [Mass/Vol] 138 mg/dL High 82-115 [facility] Comment on above: Performed By: #### L AB103, LAB46, LAB17, [id number] ####Composite Assembler: DANNA WYMAN ([id number])[facility] ([facility])[address] [place] [address] [place] Potassium [Moles/Vol] 4.1 mmol/L Normal 3.5-5.1 [facility] Comment on above: Result Comment: [facility] potassium values may be up to 0.5 mmol/L lower than serum values. Performed By: #### L AB103, LAB46, LAB17, [id number] ####Composite Assembler: DANNA WYMAN ([id number])[facility] ([facility])[address] [place] [address] Protein [Mass/Vol] 6.9 g/dL Normal 6.4-8.3 [facility] Comment on above: Performed By: #### L AB103, LAB46, LAB17, [id number] ####Composite Assembler: DANNA WYMAN ([id number])[address] Sodium [Moles/Vol] 129 mmol/L Low 136-145 [facility] Comment on above: Performed By: #### L AB103, LAB46, LAB17, [id number] ####Composite Assembler: DANNA WYMAN ([id number])[address] Urea nitrogen [Mass/Vol] 23 mg/dL Normal 9-23 [facility] Comment on above: Performed By: #### L AB103, LAB46, LAB17, [id number] ####Composite Assembler: DANNA WYMAN ([id number])[address] CERVICAL SPINE WO IV CONT RASTon 07-11-2024 CT CERVICAL SPINE WO IV CONTRAST Patient Name: MESSI [place]OP : 1955 Exam Date/Time: 07/11/2024 18:00 Procedure: CT CERVICAL SPINE WO IV CONTRAST Ordering Provider: HERNANDEZ KEVIN Reason For Exam: Neck trauma (Age >= 65y) CT CERVICAL SPINE WITHOUT CONTRAST CLINICAL INDICATION: Neck trauma (Age >= 65y) Pain TECHNIQUE: Noncontrast CT scan of the cervical spine. Multiplanar reformations. Dose reduction was employed with automated exposure control. COMPARISON: 01/27/2023 FINDINGS: Vertebral bodies are normal in height and show no significant malalignment. No acute fracture. No soft tissue swelling. Moderate multilevel degenerative changes noted. IMPRESSION: 1. No acute finding. Report Dictated on Electronically Signed By: Johnie Mccauley MD Electronically Signed Date/Time: 07/11/2024 6:29 PM EST Normal [facility] CT Cervical spine WO contras ton 07-11-2024 1. No acute finding. Report Dictated on Electronically Signed By: Johnie Mccauley MD Electronically Signed Date/Time: 07/11/2024 6:29 PM EST [facility] Patient Name: Ty WALDROP : 1955 Exam Date/Time: 07/11/2024 18:00 Procedure: CT CERVICAL SPINE WO IV CONTRAST Ordering Provider: HERNANDEZ KEVIN Reason For Exam: Neck trauma (Age >= 66y) CT CERVICAL SPINE WITHOUT CONTRAST CLINICAL INDICATION: Neck trauma (Age >= 65y) Pain TECHNIQUE: Noncontrast CT scan of the cervical spine. Multiplanar reformations. Dose reduction was employed with automated exposure control. COMPARISON: 01/27/2023 FINDINGS: Vertebral bodies are normal in height and show no significant malalignment. No acute fracture. No soft tissue swelling. Moderate multilevel degenerative changes noted. [facility] Johnie Mccauley MD - 07/11/2024 Patient Name: MESSI WALDROP : 1955 Exam Date/Time: 07/11/2024 18:00 Procedure: CT CERVICAL SPINE WO IV CONTRAST Ordering Provider: HERNANDEZ KEVIN Reason For Exam: Neck trauma (Age >= 66y) CT CERVICAL SPINE WITHOUT CONTRAST CLINICAL INDICATION: Neck trauma (Age >= 65y) Pain TECHNIQUE: Noncontrast CT scan of the cervical spine. Multiplanar reformations. Dose reduction was employed with automated exposure control. COMPARISON: 01/27/2023 FINDINGS: Vertebral bodies are normal in height and show no significant malalignment. No acute fracture. No soft tissue swelling. Moderate multilevel degenerative changes noted. IMPRESSION: 1. No acute finding. Report Dictated on Electronically Signed By: Johnie Mccauley MD Electronically Signed Date/Time: 07/11/2024 6:29 PM EST [facility] CT HEAD WO IV CONTRASTon CT HEAD WO IV CONTRAST Patient Name: MESSI WALDROP : 1955 Exam Date/Time: 07/11/2024 18:00 Procedure: CT HEAD WO IV CONTRAST Ordering Provider: HERNANDEZ KEVIN Reason For Exam: Head trauma, minor (Age >= 66y) CT BRAIN WITHOUT CONTRAST CLINICAL INDICATION: Head trauma, minor (Age >= 65y) TECHNIQUE: Noncontrast CT scan of the brain. Multiplanar reformations. Dose reduction was employed with automated exposure control. COMPARISON: 08/11/2023 FINDINGS: Moderate atrophy. Patchy low density in the periventricular and subcortical white matter is nonspecific, but may relate to chronic small vessel ischemic change. No hemorrhage, mass effect, or midline shift. No hydrocephalus. No pathologic extra-axial fluid collection. Normal basal cisterns. No evidence of acute cortical infarct. IMPRESSION: 1. No acute intracranial finding. Suspect chronic small vessel ischemic changes. Report Dictated on Electronically Signed By: Johnie Mccauley MD Electronically Signed Date/Time: 07/11/2024 6:25 PM [facility] CT Head WO contraston 2023 1. No acute intracranial finding. Suspect chronic small vessel ischemic changes. Report Dictated on Electronically Signed By: Johnie Mccauley MD Electronically Signed Date/Time: 07/11/2024 6:25 PM [facility] Patient Name: Ty WALDROP : 1955 Exam Date/Time: 07/11/2024 18:00 Procedure: CT HEAD WO IV CONTRAST Ordering Provider: HERNANDEZ KEVIN Reason For Exam: Head trauma, minor (Age >= 66y) CT BRAIN WITHOUT CONTRAST CLINICAL INDICATION: Head trauma, minor (Age >= 65y) TECHNIQUE: Noncontrast CT scan of the brain. Multiplanar reformations. Dose reduction was employed with automated exposure control. COMPARISON: 08/11/2023 FINDINGS: Moderate atrophy. Patchy low density in the periventricular and subcortical white matter is nonspecific, but may relate to chronic small vessel ischemic change. No hemorrhage, mass effect, or midline shift. No hydrocephalus. No pathologic extra-axial fluid collection. Normal basal cisterns. No evidence of acute cortical infarct. [facility] Johnie Mccauley MD - 07/11/2024 Patient Name: MESSI WALDROP : 1955 [facility]#: [id number] Exam Date/Time: 07/11/2024 18:00 Procedure: CT HEAD WO IV CONTRAST Ordering Provider: HERNANDEZ KEVIN Reason For Exam: Head trauma, minor (Age >= 66y) CT BRAIN WITHOUT CONTRAST CLINICAL INDICATION: Head trauma, minor (Age >= 65y) TECHNIQUE: Noncontrast CT scan of the brain. Multiplanar reformations. Dose reduction was employed with automated exposure control. COMPARISON: 08/11/2023 FINDINGS: Moderate atrophy. Patchy low density in the periventricular and subcortical white matter is nonspecific, but may relate to chronic small vessel ischemic change. No hemorrhage, mass effect, or midline shift. No hydrocephalus. No pathologic extra-axial fluid collection. Normal basal cisterns. No evidence of acute cortical infarct. IMPRESSION: 1. No acute intracranial finding. Suspect chronic small vessel ischemic changes. Report Dictated on Electronically Signed By: Johnie Mccauley MD Electronically Signed Date/Time: 07/11/2024 6:25 PM EST [facility] CT Head WO contrastOrdered B y: Johnie Mccauley on 07-11-2024 [facility] Work Phone: Comprehensive metabolic 1998 panelon 07-11-2024 Albumin [Mass/Vol] 3.5 g/dL 3.4 - 4.8 g/dL [facility] ALP [Catalytic activity/Vol] 81 U/L 40 - 150 U/L [facility] ALT [Catalytic activity/Vol] 25 U/L NINF - 40 U/L [facility] Anion gap [Moles/Vol] 8 mmol/L 3 - 13 mmol/L [facility] AST [Catalytic activity/Vol] 43 U/L High NINF - 34 U/L [facility] Bilirubin [Mass/Vol] 0.8 mg/dL NINF - 1.2 mg/dL [facility] Calcium [Mass/Vol] 8.9 mg/dL 8.8 - 10. 0 mg/dL [facility] Chloride [Moles/Vol] 95 mmol/L Low 98 - 10 7 mmol/L [facility] CO2 [Moles/Vol] 26 mmol/L 23 - 31 mmol/L [facility] Creatinine [Mass/Vol] 1.49 mg/dL High 0.72 - 1.25 mg/dL [facility] GFR/1.73 sq M.predicted (S/P/Bld) [Vol rate/Area] 50.8 mL/min Low - PINF [facility] Comment on above: Calculation based on the Chronic Kidney Disease Epidemiology Collaboration (CKD-EPI) equation refit without adjustment for race Glucose [Mass/Vol] 138 mg/dL High 82 - 115 mg/dL [facility] Interpretation and review of laboratory results Abnormal [facility] Potassium [Moles/Vol] 4.1 mmol/L 3.5 - 5.1 mmol/L [facility] Comment on above: Plasma potassium savi ues may be up to 0.5 mmol/L lower than serum values. Protein [Mass/Vol] 6.9 g/dL 6.4 - 8.3 g/dL [facility] Sodium [Moles/Vol] 129 mmol/L Low 136 - 145 mmol/L [facility] Urea nitrogen [Mass/Vol] 23 mg/dL 9 - 23 mg/dL [facility] DRUGS OF ABUSEon 07-11-2024 AMPHETAMINE SCREEN Negative Normal [facility] Comment on above: Performed By: #### L [id number] ####Composite Assembler: DANNA WYMAN ([id number])[facility])[address] [place] [address] BARBITURATES SCREEN Negative Normal [facility] Comment on above: Performed By: #### L [id number] ####Composite Assembler: DANNA WYMAN ([id number])[facility] ([facility])[address] [place] [address] [place] BENZODIAZEPINE SCREEN Negative Normal [facility] Comment on above: Performed By: #### L [id number] ####Composite Assembler: DANNA WYMAN ([id number])[facility] ([facility])[address] [place] [address] COCAINE METAB. SCREEN Negative Normal [facility] Comment on above: Performed By: #### L [id number] ####Composite Assembler: DANNA WYMAN ([id number])[facility])[address] [place] [address] FENTANYL SCREEN, UR QUAL Negative Normal [facility] Comment on above: Result Comment: ROOPA Abraham COMMENTS: The expected value for all of the drugs listed above is Negative. The following drugs or drug groups have been screened for by Immunoassay at the following thresholds: Amphetamine class (1000 ng/mL) Barbiturates (200 ng/mL) Benzodiazepines (200 ng/mL) Cocaine (300 ng/mL) Methadone (300 ng/mL) Opiates (300 ng/mL) Oxycodone (100 ng/mL) PCP (25 ng/mL) Fentanyl (1.0 ng/ml) NOTE: These results are for medical treatment only. Analysis performed using non-forensic procedures. POSITIVE results are NOT confirmed by a more specific alternative method unless requested. If confirmation is needed, request confirmation under separate order. Performed By: #### L [id number] ####Composite Assembler: DANNA WYMAN ([id number])[facility])[address] [place] [address] METHADONE SCREEN Negative Normal [facility] Comment on above: Performed By: #### L [id number] ####Composite Assembler: DANNA WYMAN ([id number])[address] OPIATES SCREEN Negative Normal [facility] Comment on above: Performed By: #### L [id number] ####Composite Assembler: DANNA WYMAN ([id number])[facility])[address] [place] [address] OXYCODONE SCREEN Negative Normal [facility] Comment on above: Performed By: #### L [id number] ####Composite Assembler: DANNA WYMAN ([id number])[facility])[address] [place] [address] PHENCYCLIDINE SCREEN Negative Normal [facility] Comment on above: Performed By: #### L [id number] ####Composite Assembler: DANNA WYMAN ([id number])[facility])[address] [place] [address] ED Nursing Noteon 07-11-2024 ED Nursing Note Pt pacing around the lobby, attempting to involve himself in other patient's business. Pt asked to take a seat and please crowd other patients. Security and other staff notified Normal [facility] ED Provider Noteon ED Provider Note EMERGENCY DEPARTMENT ENCOUNTER Pt Name: Messi Waldrop Birthdate 1955 Date of evaluation: 07/11/2024 ED Provider: Maggie Chairez DO CHIEF COMPLAINT Chief Complaint Patient presents with Alcohol Problem Patient with daughter for alcohol detox , last drink yesterday, drink amount varies but most recently drinking 1/2 bottle of vodka daily, denies hx of seizures with withdrawal HISTORY OF PRESENT ILLNESS (Location/Symptom, Timing/Onset, Context/Setting, Quality, Duration, Modifying Factors, Severity) Note limiting factors. I wore appropriate PPE for the entirety of this encounter. HPI Messi Waldrop is a 69 y.o. who presents to the emergency department with chief complaint of seeking detox from alcohol. Last drink was last night. Says he drinks a varied amount but typically its about a sixpack of 9% [employer] or half bottle of vodka every day. Denies history of withdrawal seizures. Says he has gone through detox in the past. Denies any other recreational drug use. Patient did admit to a fall several days ago and currently complaining of right rib pain. Denies headache loss of consciousness. Is on Eliquis for atrial fibrillation. Nursing Notes were reviewed. Limitations to history: None Outside historians: None REVIEW OF SYSTEMS Review of Systems Pertinent positives and negatives as per HPI. 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 COPD (chronic obstructive pulmonary disease) (HCC) Elevated blood pressure Essential (primary) hypertension 07/08/2017 Hyperlipidemia Indigestion Insomnia Prediabetes Umbilical hernia SURGICAL HISTORY Past Surgical History: Procedure Laterality Date COLONOSCOPY DENTAL SURGERY EYE SURGERY Bilateral cataract surgery LARYNGOSCOPY 03/04/2020 fine needle aspiration biopsy right neck mass and right base of tounge biopsy - dr kenya PATINO TONSILLECTOMY (HISTORICAL) Right 03/04/2020 dr steiner CURRENT MEDICATIONS Previous Medications ALBUTEROL 108 (90 BASE) MCG/ACT INHALER Inhale 2 puffs every 4 hours as needed. APIXABAN (ELIQUIS) 5 MG TABLET Take 1 tablet (5 mg) by mouth 2 times daily. BUDESONIDE-FORMOTEROL (SYMBICORT) 160-4.5 MCG/ACT INHALER Inhale 2 puffs in the morning and at bedtime. CALCIUM CARBONATE (OS-ALTAGRACIA) 1250 (500 CA) MG CHEWABLE TABLET Chew 1 tablet. CHOLECALCIFEROL (VITAMIN D-3) 25 MCG (1000 UT) TABLET Take 1,000 Units by mouth in the morning. CYANOCOBALAMIN (VITAMIN B-12) 500 MCG TABLET Take 1 tablet (500 mcg) by mouth daily. FOLIC ACID (FOLVITE) 400 MCG TABLET Take 1 tablet (0.4 mg) by mouth daily. LOSARTAN (COZAAR) 50 MG TABLET Take 1 tablet (50 mg) by mouth daily. METOPROLOL TARTRATE (LOPRESSOR) 100 MG TABLET Take 1 tablet (100 mg) by mouth 2 times daily. MULTIPLE VITAMINS-MINERALS ER PO Take by mouth. PYRIDOXINE (VITAMIN B-6) 25 MG TABLET Take 1 tablet (25 mg) by mouth daily. ALLERGIES Patient has no known allergies. FAMILY HISTORY Family History Problem Relation Name Age of Onset Diabetes Mother Diabetes Sister Diabetes Brother SOCIAL HISTORY Social History Socioeconomic History Marital status: Single Tobacco Use Smokeless tobacco: Current Substance and Sexual Activity Alcohol use: Yes Alcohol/week: 42.0 standard drinks of alcohol Drug use: No Social History Narrative Merged History Encounter Social Drivers of Health Financial Resource Strain: Low Risk (10/26/2021) Received from [facility] Overall Financial Resource Strain (CARDIA) Difficulty of Paying Living Expenses: Not hard at all Food Insecurity: No Food Insecurity (10/26/2021) Received from [facility] Hunger Vital Sign Worried About Running Out of Food in the Last Year: Never true Ran Out of Food in the Last Year: Never true Transportation Needs: No Transportation Needs (09/30/2020) Received from [facility] - Transportation Lack of Transportation (Medical): No Lack of Transportation (Non-Medical): No SCREENINGS PHYSICAL EXAM ED Triage Vitals [07/11/24 1729] Temp Heart Rate Resp BP 36.9 ?C (98.5 ?F) (!) 115 16 (!) 128/92 SpO2 Temp Source Heart Rate Source Patient Position 100 % Temporal Monitor -- BP Location FiO2 (%) -- -- Physical Exam Vitals reviewed. Constitutional: General: He is not in acute distress. Appearance: He is not ill-appearing. HENT: Head: Normocephalic. Comments: Abrasions noted to the face Eyes: Extraocular Movements: Extraocular movements intact. Conjunctiva/sclera: Conjunctivae normal. Pupils: Pupils are equal, round, and reactive to light. Cardiovascular: Rate and Rhythm: Regular rhythm. Tachycardi (more content not included)... Normal [facility] ED Provider Note Emergency Department Encounter [facility] EMERGENCY DEPT Patient: Messi Waldrop : 1955 Date of Evaluation: 07/11/2024 ED Provider: Raymond Hernandez MD I saw the patient as the Clinician in Triage and performed a brief history and physical exam, established acuity, and ordered appropriate tests to develop basic plan of care. Patient will be seen by JAH, resident and/or my physician partner who will evaluate the patient. I wore appropriate PPE for the entirety of this encounter. Brief HPI: In brief, Messi Waldrop is a 69 y.o. that presents with chief complaint of needing treatment for alcohol abuse. States last drink was yesterday. History of drinking at least a half a bottle of vodka daily. He did have a recent fall few days ago, hitting his forehead. Focused Physical exam: Awake and alert. He has older bruising on the lower forehead area and bilateral orbits. Pupils react equally. No obvious cervical spine tenderness. Lungs clear to auscultation. Heart irregular rhythm, tachycardic. Abdomen soft nondistended without focal tenderness. Extremities with equal distal pulses. Neurologic exam has no motor or sensory deficits in all 4 extremities. Plan/MDM: Evaluate for head injury. Evaluate his suspected atrial fibrillation, medical clearance evaluation for detox treatment Patients symptoms are consistent with sepsis, severe sepsis, or septic shock (If yes use .sepsiscoremeasure): no Please see subsequent provider note for further details and disposition (Comment: Please note this report has been produced using speech recognition software and may contain errors related to that system including errors in grammar, punctuation, and spelling as well as words and phrases that may be inappropriate. 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 NOTE: This result is for medical treatment only. Analysis performed using non-forensic procedures. Performed By: #### L [id number], LAB46, LAB17, [id number] ####Composite Assembler: DANNA WYMAN ([id number])[facility] ([facility])[address] [place] [address] Ethanol (Bld) [Mass/Vol]on 1 09-11-2023 Ethanol [Mass/Vol] mg/dL NINF - 10 mg/dL [facility] Interpretation and review of laboratory results Normal 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 NOTE: This result is for medical treatment only. Analysis performed using non-forensic procedures. [facility] HIGH SENSITIVITY TROPONIN, S ERIAL BASELINEon 07-11-2024 TROPONIN HIGH SENSITIVITY BASELINE 9 ng/L Normal <=35 [facility] Comment on above: Performed By: #### L AB103, LAB46, LAB17, [id number] ####Composite Assembler: DANNA WYMAN ([id number])[facility] ([facility])[address] [place] [address] Laboratory - Chemistry and C hemistry - challengeon 07-11-2024 Magnesium [Mass/Vol] 2 mg/dL 1.6 - 2 .6 mg/dL [facility] Laboratory - Drug toxicology on 07-11-2024 Amphetamines Screen method >1000 ng/mL Ql (U) Negative [facility] Barbiturates Screen method >200 ng/mL Ql (U) Negative [facility] Benzodiazepines Ql (U) Negative [facility] Methadone Screen Ql (U) Negative [facility] Opiates Screen Ql (U) Negative [facility] oxyCODONE Ql (U) Negative [facility] Phencyclidine Ql (U) Negative [facility] Laboratory - Microbiology an d Antimicrobial susceptibilityOrdered By: Rae Flores on 07-11-2024 SARS-CoV-2 (COVID-19) Ag IA.rapid Ql (Resp) Negative Negative [facility] Comment on above: A negative result do es not rule out the possibility of SARS-CoV-2 infection. NAAT-based methods should be considered for symptomatic patients presenting greater than seven days after onset of symptoms. Method: Lateral flow immunoassay. Fact sheets for healthcare providers and patients can be found at the following sites: https://www.fda.gov/media/238488/download https://www.Flocations.gov/media/939195/download MAGNESIUMon 07-11-2024 Magnesium [Mass/Vol] 2.0 mg/dL Normal 1.6-2.6 [facility] Comment on above: Result Comment: ROOPA Abraham COMMENTS: Higher values can be expected in females during menses. Performed By: #### L AB103, LAB46, LAB17, [id number] ####Composite Assembler: DANNA WYMAN ([id number])[address] Magnesium [Mass/Vol]on 07-11 Interpretation and review of laboratory results Normal [facility] Higher values can be expected in females during menses. [facility] No Panel Informationon 07-11 Interpretation and review of laboratory results Normal [facility] Troponin HS, Serial Baseline 9 ng/L NINF - 35 ng/L [facility] COCAINE METAB. SCREEN Negative [facility] FENTANYL SCREEN, UR QUAL Negative [facility] The expected value f or all of the drugs listed above is Negative. The following drugs or drug groups have been screened for by Immunoassay at the following thresholds: Amphetamine class (1000 ng/mL) Barbiturates (200 ng/mL) Benzodiazepines (200 ng/mL) Cocaine (300 ng/mL) Methadone (300 ng/mL) Opiates (300 ng/mL) Oxycodone (100 ng/mL) PCP (25 ng/mL) Fentanyl (1.0 ng/ml) NOTE: These results are for medical treatment only. Analysis performed using non-forensic procedures. POSITIVE results are NOT confirmed by a more specific alternative method unless requested. If confirmation is needed, request confirmation under separate order. [facility] Radiology Study observation (narrative) [facility] SARS-COV-2 ANTIGENon 024 SARS-COV-2 ANTIGEN SARS-COV-2 ANTIGEN - BINAX Reference Negative Negative A negative result does not rule out the possibility of SARS-CoV-2 infection. NAAT-based methods should be considered for symptomatic patients presenting greater than seven days after onset of symptoms. Method: Lateral flow immunoassay. Fact sheets for healthcare providers and patients can be found at the following sites: https://www.fda.gov/media /175392/download https://www.Flocations.gov/media /309209/download Normal [facility] Comment on above: Performed By: #### L [id number] #### Composite Assembler: DANNA WYMAN ([id number]) [facility] ([facility]) [address] [place] [address] SARS-CoV-2 (COVID-19) Ag IA. rapid Ql (Resp)Ordered By: Rae Flores on 07-11-2024 Interpretation and review of laboratory results Normal [facility] XR Ribs Views and Chest PAon 07-11-2024 No displaced rib fractures are seen within the right hemithorax. Report Dictated on Electronically Signed By: Junior Vera MD Electronically Signed Date/Time: 07/11/2024 6:56 PM [facility] Patient Name: Ty WALDROP : 1955 Exam Date/Time: 07/11/2024 18:48 Procedure: XR RIBS 2 VIEWS RIGHT WITH CHEST ANTEROPOSTERIOR Ordering Provider: HERNANDEZ KEVIN Reason For Exam: TRAUMA RIGHT RIB SERIES WITH CHEST X-RAY CLINICAL INDICATION: TRAUMA A PA view of the chest and two plain films of the right rib cage were obtained. COMPARISON: 08/11/2023. FINDINGS: No displaced rib fractures are seen. There is no pneumothorax. No focal areas of consolidation are seen. The heart size is within normal limits. Chronic-appearing right anterior ninth rib fracture. Mild coarse reticular opacities in the left lower lung are chronic and unchanged. [facility] Junior Vera M D - 07/11/2024 [facility]ESS[facility]OP [facility] 1955 [id number] Exam Date/Time: 07/11/2024 18:48 Procedure: XR RIBS 2 VIEWS RIGHT WITH CHEST ANTEROPOSTERIOR Ordering Provider: HERNANDEZ KEVIN Reason For Exam: TRAUMA RIGHT RIB SERIES WITH CHEST X-RAY CLINICAL INDICATION: TRAUMA A PA view of the chest and two plain films of the right rib cage were obtained. COMPARISON: 08/11/2023. FINDINGS: No displaced rib fractures are seen. There is no pneumothorax. No focal areas of consolidation are seen. The heart size is within normal limits. Chronic-appearing right anterior ninth rib fracture. Mild coarse reticular opacities in the left lower lung are chronic and unchanged. IMPRESSION: No displaced rib fractures are seen within the right hemithorax. Report Dictated on Electronically Signed By: Junior Vera MD Electronically Signed Date/Time: 07/11/2024 6:56 PM EST [facility] XR Ribs Views and Chest PAOr dered By: Junior Vera on 07-11-2024 [facility] Work Phone: Alcohol, Blood (Medical)-Ser umon 07-08-2024 SERUM ETOH 134.0 mg/dL Normal [facility] Comment on above: Result Comment: The serum:whole blood ethanol ratio is approximately 1.14 and varies slightly with hematocrit. Medical Alcohol reference interval and critical value in non-tolerant individuals; 50 - 100 Impairment 100 Intoxication 100 - 250 Severe Poisoning 250 - 400 Deep/possible fatal coma Performed By: #### L 500.2500, L501.4020, L501.9100, L100.0100 #### [facility] [address] [place], [address] Basic Metabolic Profile (BMP )on 07-08-2024 BUN/CRE 14.3 RATIO Normal 10-20 [facility] Comment on above: Order Comment: 'TROP ' Serial specimen #1, #2 or #3: 1 Performed By: #### L 500.2500, L501.4020, L501.9100, L100.0100 #### [facility] [address] [place], [address] CA,Total 9.1 mg/dL Normal 8.5-10.1 [facility] Comment on above: Order Comment: 'TROP ' Serial specimen #1, #2 or #3: 1 Performed By: #### L 500.2500, L501.4020, L501.9100, L100.0100 #### [facility] [address] [place], [address] Chloride [Moles/Vol] 94 mmol/L Low 98-107 [facility] Comment on above: Order Comment: 'TROP ' Serial specimen #1, #2 or #3: 1 Performed By: #### L 500.2500, L501.4020, L501.9100, L100.0100 #### [facility] [address] [place], [address] CO2 [Moles/Vol] 24.0 mmol/L Normal 21.0-32.0 [facility] Comment on above: Order Comment: 'TROP ' Serial specimen #1, #2 or #3: 1 Performed By: #### L 500.2500, L501.4020, L501.9100, L100.0100 #### [facility] [address] [place], [address] Creatinine [Mass/Vol] 1.33 mg/dL High 0.70-1.30 [facility] Comment on above: Order Comment: 'TROP ' Serial specimen #1, #2 or #3: 1 Result Comment: The validity of the calculated GFR GFRAA in patients over 70 years has not been determined. Clinical correlation is essential. Performed By: #### L 500.2500, L501.4020, L501.9100, L100.0100 #### [facility] [address] [place], [address] ECRCL 54.81 ml/min Normal [facility] Comment on above: Order Comment: 'TROP ' Serial specimen #1, #2 or #3: 1 Performed By: #### L 500.2500, L501.4020, L501.9100, L100.0100 #### [facility] [address] [place], [address] EST GFR - AA 69 mL/min Normal >60 [facility] Comment on above: Order Comment: 'TROP ' Serial specimen #1, #2 or #3: 1 Result Comment: Afri can Greenlandic GFR Calc Performed By: #### L 500.2500, L501.4020, L501.9100, L100.0100 #### [facility] [address] [place], [address] GAP 12 Normal 5-15 [facility] Comment on above: Order Comment: 'TROP ' Serial specimen #1, #2 or #3: 1 Performed By: #### L 500.2500, L501.4020, L501.9100, L100.0100 #### [facility] [address] [place], [address] GFR/1.73 sq M.predicted among non-blacks MDRD (S/P/Bld) [Vol rate/Area] 57 mL/min/{1.73_m2} Low >60 [facility] Comment on above: Order Comment: 'TROP ' Serial specimen #1, #2 or #3: 1 Result Comment: Non- GFR Calc Performed By: #### L 500.2500, L501.4020, L501.9100, L100.0100 #### [facility] [address] [place], [address] Glucose [Mass/Vol] 72 mg/dL Low 74-106 [facility] Comment on above: Order Comment: 'TROP ' Serial specimen #1, #2 or #3: 1 Performed By: #### L 500.2500, L501.4020, L501.9100, L100.0100 #### [facility] [address] [place], [address] Potassium [Moles/Vol] 4.4 mmol/L Normal 3.5-5.1 [facility] Comment on above: Order Comment: 'TROP ' Serial specimen #1, #2 or #3: 1 Performed By: #### L 500.2500, L501.4020, L501.9100, L100.0100 #### [facility] [address] [place], [address] Sodium [Moles/Vol] 130 mmol/L Low 136-145 [facility] Comment on above: Order Comment: 'TROP ' Serial specimen #1, #2 or #3: 1 Performed By: #### L 500.2500, L501.4020, L501.9100, L100.0100 #### [facility] [address] [place], [address] Urea nitrogen [Mass/Vol] 19 mg/dL High 7-18 [facility] Comment on above: Order Comment: 'TROP ' Serial specimen #1, #2 or #3: 1 Performed By: #### L 500.2500, L501.4020, L501.9100, L100.0100 #### [facility] [address] [place], [address] Brain/Head without Contrasto n 07-08-2024 Brain/Head without Contrast [facility] Imaging Services [address] [place] [address] Brain/Head without Contrast MR#: [id number] Acct: [id number] Name: MESSI WALDROP Rep #: [id number] : 1955 M 69 From: Home [place] MD PCP: Dr. John Springer MD Status: [facility] Study: Brain/Head without Contrast Date of Exam: 06/29 Exam# [id number] Ordering Dr: Galen Cohen DO [id number] STUDY: CT BRAIN WITHOUT CONTRAST REASON FOR EXAM: Male, 69 years old. Fall RADIATION DOSAGE (If Supplied By Facility): CTDIvol = ( 44.99 ) mGy, DLP = ( 897.35 ) mGycm TECHNIQUE: Transaxial CT imaging of the brain was performed without administration of intravenous contrast material. Individualized dose optimization techniques were used for this CT. COMPARISON: Earlier the same day FINDINGS: There is right frontal soft tissue swelling. Normal calvarium. There is mild cerebral atrophy with widening of the extra-axial spaces and ventricular dilatation. There are areas of decreased attenuation within the white matter tracts of the supratentorial brain, consistent with microvascular disease changes. Normal basal ganglia and thalami. Normal brainstem. Normal cerebellum. There is no intracranial hemorrhage. There are no findings of an acute ischemic infarction. There is mucosal thickening of the right maxillary sinus. CT/Brain/Head without Contrast IMPRESSION: Chronic involutional changes of the brain. Soft tissue swelling. No hemorrhage. Stable appearance. Electronically Signed: Home Gray MD at 23:08 EST , CC: Dr. John Springer MD; Dr. Galen Cohen DO Medical Staff Services Coordinator: Signed Normal [facility] Brain/Head without Contrast [facility] Imaging Services [address] [place] [id number] Brain/Head without Contrast MR#: [id number] Acct: [id number] Name: MESSI WALDROP Rep #: [id number] : 1955 M 69 From: Home Gray MD PCP: Dr. John Springer MD Status: REG ER Study: Brain/Head without Contrast Date of Exam: 06/29 Exam# [id number] Ordering Dr: Galen Cohen DO [id number] STUDY: CT BRAIN WITHOUT CONTRAST REASON FOR EXAM: Male, 69 years old. Injury/Pain RADIATION DOSAGE (If Supplied By Facility): CTDIvol = ( 44.99 ) mGy, DLP = ( 846.73 ) mGycm TECHNIQUE: Transaxial CT imaging of the brain was performed without administration of intravenous contrast material. Individualized dose optimization techniques were used for this CT. COMPARISON: March 11, 2024 FINDINGS: There is frontal soft tissue swelling. Normal calvarium. There is mild cerebral atrophy with widening of the extra-axial spaces and ventricular dilatation. There are areas of decreased attenuation within the white matter tracts of the supratentorial brain, consistent with microvascular disease changes. Normal basal ganglia and thalami. Normal brainstem. Normal cerebellum. There is no intracranial hemorrhage. There are no findings of an acute ischemic infarction. Normal visualized paranasal sinuses. CT/Brain/Head without Contrast IMPRESSION: Chronic involutional changes of the brain. Soft tissue swelling. No hemorrhage. Electronically Signed: Home Gray MD at 20:25 EST , CC: Dr. John Springer MD; Dr. Galen Cohen DO Medical Staff Services Coordinator: Signed Normal [facility] CBC W/Diff, Automatedon 12-1 0-2023 Absolute Lymph 0.43 X10 3/uL Low 0.83-4.51 [facility] Comment on above: Performed By: #### L 500.2500, L501.4020, L501.9100, L100.0100 #### [facility] [address] [place], [address] Absolute Neut 7.0 X10 3/uL Normal 2.0-7.7 [facility] Comment on above: Performed By: #### L 500.2500, L501.4020, L501.9100, L100.0100 #### [facility] [address] [place], [address] Basophils/100 WBC (Bld) 0.6 % Normal 0-1 [facility] Comment on above: Performed By: #### L 500.2500, L501.4020, L501.9100, L100.0100 #### [facility] [address] [place], [address] Eosinophils/100 WBC (Bld) 0.0 % Normal 0-5 [facility] Comment on above: Performed By: #### L 500.2500, L501.4020, L501.9100, L100.0100 #### [facility] [address] [place], [address] Erythrocyte distribution width (RBC) [Ratio] 14.1 % Normal 11.6-14.6 [facility] Comment on above: Performed By: #### L 500.2500, L501.4020, L501.9100, L100.0100 #### [facility] [address] [place], [address] Hematocrit (Bld) [Volume fraction] 38.6 % Low 40-54 [facility] Comment on above: Performed By: #### L 500.2500, L501.4020, L501.9100, L100.0100 #### [facility] [address] [place], [address] Hemoglobin (Bld) [Mass/Vol] 13.5 g/dL Normal 13.0-16.5 [facility] Comment on above: Performed By: #### L 500.2500, L501.4020, L501.9100, L100.0100 #### [facility] [address] [place], [address] IG% 0.600 Normal 0.0-0.9 [facility] Comment on above: Result Comment: IG% - Immature Granulocytes (promyelocytes, myelocytes and metamyelocytes) > 1% indicates that a LEFT SHIFT is Present. Performed By: #### L 500.2500, L501.4020, L501.9100, L100.0100 #### [facility] [address] [place], [address] Lymphocytes/100 WBC (Bld) 5.2 % Low 19-41 [facility] Comment on above: Performed By: #### L 500.2500, L501.4020, L501.9100, L100.0100 #### [facility] [address] [place], [address] MCH (RBC) [Entitic mass] 32.6 pg High 27.0-32.0 [facility] Comment on above: Performed By: #### L 500.2500, L501.4020, L501.9100, L100.0100 #### [facility] [address] [place], [address] MCHC (RBC) [Mass/Vol] 35.0 g/dL Normal 32-36 [facility] Comment on above: Performed By: #### L 500.2500, L501.4020, L501.9100, L100.0100 #### [facility] [address] [place], [address] MCV (RBC) [Entitic vol] 93.2 fL Normal 80-94 [facility] Comment on above: Performed By: #### L 500.2500, L501.4020, L501.9100, L100.0100 #### [facility] [address] [place], [address] Monocytes/100 WBC (Bld) 8.8 % Normal 0-10 [facility] Comment on above: Performed By: #### L 500.2500, L501.4020, L501.9100, L100.0100 #### [facility] [address] [place], [address] Neutrophils/100 WBC (Bld) 84.8 % High 47-70 [facility] Comment on above: Performed By: #### L 500.2500, L501.4020, L501.9100, L100.0100 #### [facility] [address] [place], [address] Nucleated RBC (Bld) [#/Vol] 0 10*3/uL Normal 0-5 [facility] Comment on above: Performed By: #### L 500.2500, L501.4020, L501.9100, L100.0100 #### [facility] [address] [place], [address] Platelet mean volume (Bld) [Entitic vol] 9.4 fL Normal 6.2-12.0 [facility] Comment on above: Performed By: #### L 500.2500, L501.4020, L501.9100, L100.0100 #### [facility] [address] [place], [address] Platelets (Bld) [#/Vol] 338 10*3/uL Normal 150-450 [facility] Comment on above: Performed By: #### L 500.2500, L501.4020, L501.9100, L100.0100 #### [facility] [address] [place], [address] RBC (Bld) [#/Vol] 4.14 10*6/uL Low 4.6-6.2 [facility] Comment on above: Performed By: #### L 500.2500, L501.4020, L501.9100, L100.0100 #### [facility] [address] [place], [address] RDW SD 48.1 fl High 35.1-43.9 [facility] Comment on above: Performed By: #### L 500.2500, L501.4020, L501.9100, L100.0100 #### [facility] [address] [place], [address] WBC (Bld) [#/Vol] 8.2 10*3/uL Normal 4.4-11.0 [facility] Comment on above: Performed By: #### L 500.2500, L501.4020, L501.9100, L100.0100 #### [facility] [address] [place], [address] Emergency Department Summary on 07-08-2024 Emergency Department Summary [facility] Medical Records Department [address] [place] [address] Emergency Department Summary 07/08/24 MR#: [id number] Acct: [id number] Name: MESSI WALDROP Rep #: [id number] : 1955 69 From: Galen Cohen DO PCP: Dr. John Springer MD Status:REG ER Location: ED HPI History of Present Illness Chief Complaint: Laceration Informant: patient Onset/Context/Timing Onset: Today Mechanism/Context: Fall Quality of Pain: Dull Current Severity: Gone Worsened by: Nothing Relieved by: Nothing Associated Symptoms Associated Symptoms: Negative for Parasthesias, Weakness, Loss of function, Inability to ambulate, Loss of consciousness or Amnesia Narrative Narrative: Patient presents with forehead laceration that occurred today. Patient states he lost his balance and fell. Patient states he hit his head. Patient denies any loss of consciousness. Patient is unsure of his last tetanus. Patient states he has a laceration above his right eyebrow and in his forehead. Patient denies any epistaxis. Patient denies any neck pain. Patient denies any visual changes. Patient denies any nausea or vomiting. Tetanus Immunization: Unknown [facility] Medical History A-fib Malnutrition Pulmonary mass CHI (closed head injury) Substance abuse Anxiety Depression Smoker COPD (chronic obstructive pulmonary disease) Irregular heart beat Hypertension Behavior concern in adult At high risk for malnutrition Mass of left lung Hyponatremia Alcohol withdrawal Acute blood loss anemia GI bleed Chewing tobacco use History of cancer tonsil Anxiety and depression ETOH abuse Home Medications ???Medication ???Instructions ???Recorded ???Last Taken ???Type folic acid 1 mg tablet 1 mg PO DAILY@0800 #30 tabs 05/30/23 Unknown Rx thiamine HCl (vitamin B1) 100 mg 100 mg PO DAILYCM #30 tabs 05/30/23 Unknown Rx tablet (Vitamin B-1) albuterol sulfate 90 mcg/actuation 1 puff inhalation Q4H PRN PRN 10/14/23 Unknown History aerosol inhaler dyspnea amiodarone 100 mg tablet 200 mg PO DAILY 10/14/23 Unknown History apixaban 5 mg tablet (Eliquis) 5 mg PO BID 10/14/23 Unknown History bumetanide 1 mg tablet 1 mg PO BID 10/14/23 Unknown History calcium carbonate (Antacid Calcium) 537.5 mg PO DAILY 10/14/23 Unknown History cholecalciferol (vitamin D3) 25 25 mcg PO DAILY 10/14/23 Unknown History mcg (1,000 unit) tablet cyanocobalamin (vitamin B-12) 500 mcg PO DAILY 10/14/23 Unknown History 1,000 mcg tablet digoxin 125 mcg (0.125 mg) tablet 62.5 mcg PO DAILY 10/14/23 Unknown History empagliflozin 10 mg tablet 10 mg PO DAILY diabetes mellitus 10/14/23 Unknown History (Jardiance) fluticasone 100 mcg-salmeterol 50 1 ea inhalation DAILY 10/14/23 Unknown History mcg/dose blistr powdr for inhalation losartan 50 mg tablet 50 mg PO DAILY blood pressure 10/14/23 Unknown History mirtazapine 7.5 mg tablet 7.5 mg PO QHS depressive disorder 10/14/23 Unknown History pyridoxine (vitamin B6) 25 mg 25 mg PO DAILY anemia 10/14/23 Unknown History tablet (Vitamin B-6) sacubitril 24 mg-valsartan 26 mg 1 tab PO BID 10/14/23 Unknown History tablet (Entresto) spironolactone 25 mg tablet 25 mg PO DAILY blood pressure 10/14/23 Unknown History benzocaine 15 mg-menthol 2.6 mg 1 forest mucous membrane Q2H PRN sore 10/15/23 Unknown History lozenges (Cepacol Sore Throat throat (benzocaine-menthol)) budesonide-formoterol HFA 160 1 inh inhalation BID SHORTNESS OF 10/15/23 Unknown History mcg-4.5 mcg/actuation aerosol BREATH inhaler (Symbicort) melatonin 3 mg tablet 9 mg PO QHS PRN sleep 10/15/23 Unknown History multivitamin with minerals-ferrous 1 tab PO DAILY SUPPLEMENT 10/15/23 Unknown History sulfate 4.5 mg iron tablet (One Daily Multivitamins with Minerals) Allergy/AdvReac Type Severity Reaction Status Date / Time poison rich extract Allergy Mild RASH Verified 07/08/24 17:32 Family History Mother Diabetes Father Diabetes Brother Colon cancer Surgical History History of tonsillectomy and adenoidectomy Social History household members: other details: Lives with his son. Smoking Status: Current some day smoker tobacco type: smokeless tobacco Smokeless tobacco user: chewing tobacco and other alcohol intake: current alcohol intake frequency: 3 or more drinks per day details: 8-10 beers daily coupled with hard liquor. substance use type: does not use ROS ROS ED Constitutional Constitutional ED: Denies chills or fever(s) ENT ENT ED: Denies rhinorrhea or sore throat Cardiovascular Cardiovascular: Denies chest pain or palpitations Respiratory/Chest Respirator (more content not included)... Normal [facility] L501.4020on 07-08-2024 TROPONIN-I HS 11 pg/mL Normal 3.0-78.0 [facility] Comment on above: Order Comment: 'TROP ' Serial specimen #1, #2 or #3: 1 Result Comment: Sandra ferguson Note: New Test Units and Gender Specific Reference Ranges. For more information see Policy Stat Procedure [place] High Sensitivity Troponin (TNIH) and attachments. Performed By: #### L 500.2500, L501.4020, L501.9100, L100.0100 ####[facility] [address] [place], [address] Basic Metab w/rfx MGon 10-19 Anion gap [Moles/Vol] 11 mmol/L Normal 7-16 [facility] Comment on above: Performed By: #### C P, BNP, CBCWD #### [address] [address] [employer] Coordinator: Horacio Gan MD Calcium [Mass/Vol] 9.1 mg/dL Normal 8.6-10.2 [facility] Comment on above: Performed By: #### C P, BNP, CBCWD #### [address] [address] [employer] Coordinator: Horacio Gan MD Chloride [Moles/Vol] 101 mmol/L Normal 98-107 [facility] Comment on above: Performed By: #### C P, BNP, CBCWD #### [address] [address] [employer] Coordinator: Horacio Gan MD CO2 [Moles/Vol] 23 mmol/L Normal 22-29 [facility] Comment on above: Performed By: #### C P, BNP, CBCWD #### [address] [address] [employer] Coordinator: Horacio Gan MD Creatinine [Mass/Vol] 1.2 mg/dL Normal 0.70-1.20 [facility] Comment on above: Performed By: #### C P, BNP, CBCWD #### [address] [address] [employer] Coordinator: Horacio Gan MD GFR/1.73 sq M.predicted among non-blacks MDRD (S/P/Bld) [Vol rate/Area] mL/min/{1.73_m2} Normal >60 [facility] Comment on above: Result Comment: These results are not intended for use in patients <18 years of age. eGFR results are calculated without a race factor using the 2020 CKD-EPI equation. Careful clinical correlation is recommended, particularly when comparing to results calculated using previous equations. The CKD-EPI equation is less accurate in patients with extremes of muscle mass, extra-renal metabolism of creatine, excessive creatine ingestion, or following therapy that affects renal tubular secretion. Performed By: #### C P, BNP, CBCWD #### [address] [address] [employer] Coordinator: Horacio Gan MD Glucose [Mass/Vol] 114 mg/dL High 74-99 [facility] Comment on above: Performed By: #### C P, BNP, CBCWD #### [address] [address] [employer] Coordinator: Horacio Gan MD Potassium [Moles/Vol] 4.5 mmol/L Normal 3.5-5.0 [facility] Comment on above: Performed By: #### C P, BNP, CBCWD #### [address] [address] [employer] Coordinator: Horacio Gan MD Sodium [Moles/Vol] 135 mmol/L Normal 132-146 [facility] Comment on above: Performed By: #### C P, BNP, CBCWD #### [address] [address] [employer] Coordinator: Horacio Gan MD Urea nitrogen [Mass/Vol] 28 mg/dL High 6-23 [facility] Comment on above: Performed By: #### C P, BNP, CBCWD #### [place] [address] [employer] Coordinator: Horacio Gan MD Brain Natri. Peptideon 10-19 Natriuretic peptide B (Bld) [Mass/Vol] 7259 pg/mL High 0-125 [facility] Comment on above: Result Comment: An a ge-independent cutoff point of 300 pg/ml has a 98% negative predictive value excluding acute heart failure. Performed By: #### C P, BNP, CBCWD #### [place] [address] [employer] Coordinator: Horacio Gan MD CBC with Diffon 10-20-2023 Abs. Basophil 0.05 k/uL Normal 0.00-0.20 [facility] Comment on above: Performed By: #### C P, BNP, CBCWD #### [place] [address] [employer] Coordinator: Horacio Gan MD Abs.Neutrophil (Seg) 4.16 k/uL Normal 1.80-7.30 [facility] Comment on above: Performed By: #### C P, BNP, CBCWD #### [place] [address] [employer] Coordinator: Horacio Gan MD Basophils/100 WBC (Bld) 1 % Normal 0.0-2.0 [facility] Comment on above: Performed By: #### C P, BNP, CBCWD #### [address] [address] [employer] Coordinator: Horacio Gan MD Eosinophils (Bld) [#/Vol] 0.09 10*3/uL Normal 0.05-0.50 [facility] Comment on above: Performed By: #### C P, BNP, CBCWD #### [place] [address] [employer] Coordinator: Horacio Gan MD Eosinophils/100 WBC (Bld) 2 % Normal 0-6 [facility] Comment on above: Performed By: #### C P, BNP, CBCWD #### [place] [address] [employer] Coordinator: Horacio Gan MD Lymphocytes (Bld) [#/Vol] 0.32 10*3/uL Low 1.50-4.00 [facility] Comment on above: Performed By: #### C P, BNP, CBCWD #### [place] [address] [employer] Coordinator: Horacio Gan MD Lymphocytes/100 WBC (Bld) 6 % Low 20.0-42.0 [facility] Comment on above: Performed By: #### C P, BNP, CBCWD #### [place] [address] [employer] Coordinator: Horacio Gan MD Monocytes (Bld) [#/Vol] 0.59 10*3/uL Normal 0.10-0.95 [facility] Comment on above: Performed By: #### C P, BNP, CBCWD #### [place] [address] [employer] Coordinator: Horacio Gan MD Monocytes/100 WBC (Bld) 11 % Normal 2.0-12.0 [facility] Comment on above: Performed By: #### C P, BNP, CBCWD #### [place] [address] [employer] Coordinator: Horacio Gan MD Neutrophil (Seg) 80 % Normal 43.0-80.0 [facility] Comment on above: Performed By: #### C P, BNP, CBCWD #### [address] [address] [employer] Coordinator: Horacio Gan MD RBC morphology finding Nom (Bld) 1+ Normal [facility] Comment on above: Result Comment: ANIS OCYTOSIS 1+ [place] CELLS 1+ OVALOCYTES 1+ POIKILOCYTOSIS 1+ POLYCHROMASIA Performed By: #### C P, BNP, CBCWD #### [place] [address] [employer] Coordinator: Horacio Gan MD Erythrocyte distribution width (RBC) [Ratio] 17.8 % High 11.5-15.0 [facility] Comment on above: Performed By: #### C P, BNP, CBCWD #### [place] [address] [employer] Coordinator: Horacio Gan MD Hematocrit (Bld) [Volume fraction] 32.2 % Low 37.0-54.0 [facility] Comment on above: Performed By: #### C P, BNP, CBCWD #### [place] [address] [employer] Coordinator: Horacio Gan MD Hemoglobin (Bld) [Mass/Vol] 10.9 g/dL Low 12.5-16.5 [facility] Comment on above: Performed By: #### C P, BNP, CBCWD #### [place] [address] [employer] Coordinator: Horacio Gan MD MCH (RBC) [Entitic mass] 29.2 pg Normal 26.0-35.0 [facility] Comment on above: Performed By: #### C P, BNP, CBCWD #### [address] [place] [address] [employer] Coordinator: Horacio Gan MD MCHC (RBC) [Mass/Vol] 33.9 g/dL Normal 32.0-34.5 [facility] Comment on above: Performed By: #### C P, BNP, CBCWD #### [place] [address] [employer] Coordinator: Horacio Gan MD MCV (RBC) [Entitic vol] 86.3 fL Normal 80.0-99.9 [facility] Comment on above: Performed By: #### C P, BNP, CBCWD #### [place] [address] [employer] Coordinator: Horacio Gan MD Platelet mean volume (Bld) [Entitic vol] 11.3 fL Normal 7.0-12.0 [facility] Comment on above: Performed By: #### C P, BNP, CBCWD #### [place] [address] [employer] Coordinator: Horacio Gan MD Platelets (Bld) [#/Vol] 367 10*3/uL Normal 130-450 [facility] Comment on above: Performed By: #### C P, BNP, CBCWD #### [place] [address] [employer] Coordinator: Horacio Gan MD RBC (Bld) [#/Vol] 3.73 10*6/uL Low 3.80-5.80 [facility] Comment on above: Performed By: #### C P, BNP, CBCWD #### [place] [address] [employer] Coordinator: Horacio Gan MD WBC (Bld) [#/Vol] 5.2 10*3/uL Normal 4.5-11.5 [facility] Comment on above: Performed By: #### C P, BNP, CBCWD #### [address] [place] [address] [employer] Coordinator: Horacio Gan MD Ferritinon 10-20-2023 Ferritin [Mass/Vol] 756 ng/mL Normal [facility] Comment on above: Result Comment: FERRITIN Reference Ranges: Adult Males 20 - 60 years: 30 - 400 ng/mL Adult females 17 - 60 years: 13 - 150 ng/mL Adults greater than 60 years: no established reference range Pediatrics: no established reference range Performed By: #### C P, BNP, CBCWD #### [address] [address] [employer] Coordinator: Horacio Gan MD Basic Metab w/rfx MGon 10-18 Anion gap [Moles/Vol] 11 mmol/L Normal 7-16 [facility] Comment on above: Performed By: #### P HO, MG #### [address] [address] [employer] Coordinator: Horacio Gan MD Calcium [Mass/Vol] 8.8 mg/dL Normal 8.6-10.2 [facility] Comment on above: Performed By: #### P HO, MG #### [address] [place] [address] [employer] Coordinator: Horacio Gan MD Chloride [Moles/Vol] 102 mmol/L Normal 98-107 [facility] Comment on above: Performed By: #### P HO, MG #### [address] [place] [address] [employer] Coordinator: Horacio Gan MD CO2 [Moles/Vol] 21 mmol/L Low 22-29 [facility] Comment on above: Performed By: #### P HO, MG #### [address] [place] [address] [employer] Coordinator: Horacio Gan MD Creatinine [Mass/Vol] 1.3 mg/dL High 0.70-1.20 [facility] Comment on above: Performed By: #### P HO, MG #### [address] [place] [address] [employer] Coordinator: Horacio Gan MD GFR/1.73 sq M.predicted among non-blacks MDRD (S/P/Bld) [Vol rate/Area] mL/min/{1.73_m2} Normal >60 [facility] Comment on above: Result Comment: These results are not intended for use in patients <18 years of age. eGFR results are calculated without a race factor using the 2020 CKD-EPI equation. Careful clinical correlation is recommended, particularly when comparing to results calculated using previous equations. The CKD-EPI equation is less accurate in patients with extremes of muscle mass, extra-renal metabolism of creatine, excessive creatine ingestion, or following therapy that affects renal tubular secretion. Performed By: #### P HO, MG #### [address] [place] [address] [employer] Coordinator: Horacio Gan MD Glucose [Mass/Vol] 80 mg/dL Normal 74-99 [facility] Comment on above: Performed By: #### P HO, MG #### [address] [place] [address] [employer] Coordinator: Horacio Gan MD Potassium [Moles/Vol] 4.4 mmol/L Normal 3.5-5.0 [facility] Comment on above: Performed By: #### P HO, MG #### [address] [address] [employer] Coordinator: Horacio Gan MD Sodium [Moles/Vol] 134 mmol/L Normal 132-146 [facility] Comment on above: Performed By: #### P HO, MG #### [address] [place] [address] [employer] Coordinator: Horacio Gan MD Urea nitrogen [Mass/Vol] 33 mg/dL High 6-23 [facility] Comment on above: Performed By: #### P HO, MG #### [place] [address] [employer] Coordinator: Horacio Gan MD CBC with Diffon 10-19-2023 Abs. Basophil 0.03 k/uL Normal 0.00-0.20 [facility] Comment on above: Performed By: #### P HO, MG #### [place] [address] [employer] Coordinator: Horacio Gan MD Abs.Imm.Granulocyte 0.03 k/uL Normal 0.00-0.58 [facility] Comment on above: Performed By: #### P HO, MG #### [place] [address] [employer] Coordinator: Horacio Gan MD Abs.Neutrophil (Seg) 3.82 k/uL Normal 1.80-7.30 [facility] Comment on above: Performed By: #### P HO, MG #### [place] [address] [employer] Coordinator: Horacio Gan MD Basophils/100 WBC (Bld) 1 % Normal 0.0-2.0 [facility] Comment on above: Performed By: #### P HO, MG #### [place] [address] [employer] Coordinator: Horacio Gan MD Eosinophils (Bld) [#/Vol] 0.13 10*3/uL Normal 0.05-0.50 [facility] Comment on above: Performed By: #### P HO, MG #### [address] [place] [address] [employer] Coordinator: Horacio Gan MD Eosinophils/100 WBC (Bld) 3 % Normal 0-6 [facility] Comment on above: Performed By: #### P HO, MG #### [place] [address] [employer] Coordinator: Horacio Gan MD Immature granulocytes/100 WBC (Bld) 1 % Normal 0.0-5.0 [facility] Comment on above: Performed By: #### P HO, MG #### [place] [address] [employer] Coordinator: Horacio Gan MD Lymphocytes (Bld) [#/Vol] 0.47 10*3/uL Low 1.50-4.00 [facility] Comment on above: Performed By: #### P HO, MG #### [place] [address] [employer] Coordinator: Horacio Gan MD Lymphocytes/100 WBC (Bld) 9 % Low 20.0-42.0 [facility] Comment on above: Performed By: #### P HO, MG #### [place] [address] International Exchange Coordinator: Horacio Gan MD Monocytes (Bld) [#/Vol] 0.52 10*3/uL Normal 0.10-0.95 [facility] Comment on above: Performed By: #### P HO, MG #### [address] [place] [address] International Exchange Coordinator: Horacio Gan MD Monocytes/100 WBC (Bld) 10 % Normal 2.0-12.0 [facility] Comment on above: Performed By: #### P HO, MG #### [address] [place] [address] International Exchange Coordinator: Horacio Gan MD Neutrophil (Seg) 76 % Normal 43.0-80.0 [facility] Comment on above: Performed By: #### P HO, MG #### [address] [place] [address] International Exchange Coordinator: Horacio Gan MD RBC morphology finding Nom (Bld) 2+ Normal [facility] Comment on above: Result Comment: ANIS OCYTOSIS 2+ [place] CELLS 1+ HYPOCHROMIA 1+ OVALOCYTES 2+ POIKILOCYTOSIS 1+ SCHISTOCYTES Performed By: #### P HO, MG #### [address] [place] [address] International Exchange Coordinator: Horacio Gan MD Erythrocyte distribution width (RBC) [Ratio] 17.9 % High 11.5-15.0 [facility] Comment on above: Performed By: #### P HO, MG #### [address] [place] [address] International Exchange Coordinator: Horacio Gan MD Hematocrit (Bld) [Volume fraction] 30.0 % Low 37.0-54.0 [facility] Comment on above: Performed By: #### P HO, MG #### [place] [address] International Exchange Coordinator: Horacio Gan MD Hemoglobin (Bld) [Mass/Vol] 9.7 g/dL Low 12.5-16.5 [facility] Comment on above: Performed By: #### P HO, MG #### [address] [place] [address] International Exchange Coordinator: Horacio Gan MD MCH (RBC) [Entitic mass] 28.1 pg Normal 26.0-35.0 [facility] Comment on above: Performed By: #### P HO, MG #### [place] [address] International Exchange Coordinator: Horacio Gan MD MCHC (RBC) [Mass/Vol] 32.3 g/dL Normal 32.0-34.5 [facility] Comment on above: Performed By: #### P HO, MG #### [address] [place] [address] International Exchange Coordinator: Horacio Gan MD MCV (RBC) [Entitic vol] 87.0 fL Normal 80.0-99.9 [facility] Comment on above: Performed By: #### P HO, MG #### [address] [place] [address] International Exchange Coordinator: Horacio Gan MD Platelet mean volume (Bld) [Entitic vol] 11.2 fL Normal 7.0-12.0 [facility] Comment on above: Performed By: #### P HO, MG #### [address] [place] [address] International Exchange Coordinator: Horacio Gan MD Platelets (Bld) [#/Vol] 258 10*3/uL Normal 130-450 [facility] Comment on above: Performed By: #### P HO, MG #### [address] [place] [address] International Exchange Coordinator: Horacio Gan MD RBC (Bld) [#/Vol] 3.45 10*6/uL Low 3.80-5.80 [facility] Comment on above: Performed By: #### P HO, MG #### [address] [place] [address] International Exchange Coordinator: Horacio Gan MD WBC (Bld) [#/Vol] 5.0 10*3/uL Normal 4.5-11.5 [facility] Comment on above: Performed By: #### P HO, MG #### [address] [place] [address] [employer] Exchange Coordinator: Horacio Gan MD Basic Metab w/rfx MGon 10-17 Anion gap [Moles/Vol] 14 mmol/L Normal 7-16 [facility] Comment on above: Performed By: #### P HO, MG #### [address] [place] [address] [employer] Exchange Coordinator: Horacio Gan MD Calcium [Mass/Vol] 8.6 mg/dL Normal 8.6-10.2 [facility] Comment on above: Performed By: #### P HO, MG #### [address] [place] [address] International Exchange Coordinator: Horacio Gan MD Chloride [Moles/Vol] 99 mmol/L Normal 98-107 [facility] Comment on above: Performed By: #### P HO, MG #### [address] [place] [address] [employer] Exchange Coordinator: Horacio Gan MD CO2 [Moles/Vol] 19 mmol/L Low 22-29 [facility] Comment on above: Performed By: #### P HO, MG #### [address] [place] [address] [employer] Exchange Coordinator: Horacio Gan MD Creatinine [Mass/Vol] 1.4 mg/dL High 0.70-1.20 [facility] Comment on above: Performed By: #### P HO, MG #### [address] [address] International Exchange Coordinator: Horacio Gan MD GFR/1.73 sq M.predicted among non-blacks MDRD (S/P/Bld) [Vol rate/Area] 55 mL/min/{1.73_m2} Low >60 [facility] Comment on above: Result Comment: These results are not intended for use in patients <18 years of age. eGFR results are calculated without a race factor using the 2020 CKD-EPI equation. Careful clinical correlation is recommended, particularly when comparing to results calculated using previous equations. The CKD-EPI equation is less accurate in patients with extremes of muscle mass, extra-renal metabolism of creatine, excessive creatine ingestion, or following therapy that affects renal tubular secretion. Performed By: #### P HO, MG #### [place] [address] International Exchange Coordinator: Horacio Gan MD Glucose [Mass/Vol] 93 mg/dL Normal 74-99 [facility] Comment on above: Performed By: #### P HO, MG #### [address] [address] International Exchange Coordinator: Horacio Gan MD Potassium [Moles/Vol] 4.4 mmol/L Normal 3.5-5.0 [facility] Comment on above: Performed By: #### P HO, MG #### [address] [address] International Exchange Coordinator: Horacio Gan MD Sodium [Moles/Vol] 132 mmol/L Normal 132-146 [facility] Comment on above: Performed By: #### P HO, MG #### [address] [place] [address] International Exchange Coordinator: Horacio Gan MD Urea nitrogen [Mass/Vol] 38 mg/dL High 6-23 [facility] Comment on above: Performed By: #### P HO, MG #### [place] [address] International Exchange Coordinator: Horacio Gan MD CBC with Diffon 10-18-2023 Abs. Basophil 0.00 k/uL Normal 0.00-0.20 [facility] Comment on above: Performed By: #### P HO, MG #### [place] [address] International Exchange Coordinator: Horacio Gan MD Abs. Myelocyte 0.06 k/uL High 0 [facility] Comment on above: Performed By: #### P HO, MG #### [place] [address] International Exchange Coordinator: Horacio Gan MD Abs.Neutrophil (Seg) 5.82 k/uL Normal 1.80-7.30 [facility] Comment on above: Performed By: #### P HO, MG #### [place] [address] International Exchange Coordinator: Horacio Gan MD Basophils/100 WBC (Bld) 0 % Normal 0.0-2.0 [facility] Comment on above: Performed By: #### P HO, MG #### [place] [address] International Exchange Coordinator: Horacio Gan MD Eosinophils (Bld) [#/Vol] 0.00 10*3/uL Low 0.05-0.50 [facility] Comment on above: Performed By: #### P HO, MG #### [facility] [address] [place] [address] International Exchange Coordinator: Horacio Gan MD Eosinophils/100 WBC (Bld) 0 % Normal 0-6 [facility] Comment on above: Performed By: #### P HO, MG #### [address] [place] [address] International Exchange Coordinator: Horacio Gan MD Lymphocytes (Bld) [#/Vol] 0.48 10*3/uL Low 1.50-4.00 [facility] Comment on above: Performed By: #### P HO, MG #### [address] [place] [address] International Exchange Coordinator: Horacio Gan MD Lymphocytes/100 WBC (Bld) 7 % Low 20.0-42.0 [facility] Comment on above: Performed By: #### P HO, MG #### [address] [place] [address] International Exchange Coordinator: Horacio Gan MD Monocytes (Bld) [#/Vol] 0.54 10*3/uL Normal 0.10-0.95 [facility] Comment on above: Performed By: #### P HO, MG #### [address] [place] [address] International Exchange Coordinator: Horacio Gan MD Monocytes/100 WBC (Bld) 8 % Normal 2.0-12.0 [facility] Comment on above: Performed By: #### P HO, MG #### [address] [place] [address] International Exchange Coordinator: Horacio Gan MD Myelocyte 1 % High 0 [facility] Comment on above: Performed By: #### P HO, MG #### [address] [place], [place] [id number] International Exchange Coordinator: Horacio Gan MD Neutrophil (Seg) 84 % High 43.0-80.0 [facility] Comment on above: Performed By: #### P HO, MG #### [address] [place] [address] International Exchange Coordinator: Horacio Gan MD RBC morphology finding Nom (Bld) 1+ Normal [facility] Comment on above: Result Comment: ACAN THOCYTES 1+ ANISOCYTOSIS 2+ [place] CELLS 1+ OVALOCYTES 2+ POIKILOCYTOSIS 1+ POLYCHROMASIA Performed By: #### P HO, MG #### [place] [address] International Exchange Coordinator: Horacio Gan MD Erythrocyte distribution width (RBC) [Ratio] 18.2 % High 11.5-15.0 [facility] Comment on above: Performed By: #### P HO, MG #### [place] [address] International Exchange Coordinator: Horacio Gan MD Hematocrit (Bld) [Volume fraction] 29.6 % Low 37.0-54.0 [facility] Comment on above: Performed By: #### P HO, MG #### [place] [address] International Exchange Coordinator: Horacio Gan MD Hemoglobin (Bld) [Mass/Vol] 9.9 g/dL Low 12.5-16.5 [facility] Comment on above: Performed By: #### P HO, MG #### [address] [address] International Exchange Coordinator: Horacio Gan MD MCH (RBC) [Entitic mass] 28.8 pg Normal 26.0-35.0 [facility] Comment on above: Performed By: #### P HO, MG #### [address] [place] [address] International Exchange Coordinator: Horacio Gan MD MCHC (RBC) [Mass/Vol] 33.4 g/dL Normal 32.0-34.5 [facility] Comment on above: Performed By: #### P HO, MG #### [address] [place] [address] International Exchange Coordinator: Horacio Gan MD MCV (RBC) [Entitic vol] 86.0 fL Normal 80.0-99.9 [facility] Comment on above: Performed By: #### P HO, MG #### [address] [place] [address] International Exchange Coordinator: Horacio Gan MD Platelet mean volume (Bld) [Entitic vol] 11.5 fL Normal 7.0-12.0 [facility] Comment on above: Performed By: #### P HO, MG #### [address] [place] [address] International Exchange Coordinator: Horacio Gan MD Platelets (Bld) [#/Vol] 219 10*3/uL Normal 130-450 [facility] Comment on above: Performed By: #### P HO, MG #### [address] [place] [address] International Exchange Coordinator: Horacio Gan MD RBC (Bld) [#/Vol] 3.44 10*6/uL Low 3.80-5.80 [facility] Comment on above: Performed By: #### P HO, MG #### [address] [place] [address] International Exchange Coordinator: Horacio Gan MD WBC (Bld) [#/Vol] 6.9 10*3/uL Normal 4.5-11.5 [facility] Comment on above: Performed By: #### P HO, MG #### [place] [address] International Exchange Coordinator: Horacio Gan MD Brain Natri. Peptideon 10-16 Natriuretic peptide B (Bld) [Mass/Vol] 6893 pg/mL High 0-125 [facility] Comment on above: Result Comment: An a ge-independent cutoff point of 300 pg/ml has a 98% negative predictive value excluding acute heart failure. Performed By: #### C P, BNP, CBCWD #### [place] [address] International Exchange Coordinator: Horacio Gan MD CBC with Diffon 10-17-2023 Abs. Basophil 0.00 k/uL Normal 0.00-0.20 [facility] Comment on above: Performed By: #### C P, BNP, CBCWD #### [place] [address] International Exchange Coordinator: Horacio Gan MD Abs.Neutrophil (Seg) 7.68 k/uL High 1.80-7.30 [facility] Comment on above: Performed By: #### C P, BNP, CBCWD #### [place] [address] International Exchange Coordinator: Horacio Gan MD Basophils/100 WBC (Bld) 0 % Normal 0.0-2.0 [facility] Comment on above: Performed By: #### C P, BNP, CBCWD #### [place] [address] International Exchange Coordinator: Horacio Gan MD Eosinophils (Bld) [#/Vol] 0.00 10*3/uL Low 0.05-0.50 [facility] Comment on above: Performed By: #### C P, BNP, CBCWD #### [place] [address] [employer] Exchange Coordinator: Horacio Gan MD Eosinophils/100 WBC (Bld) 0 % Normal 0-6 [facility] Comment on above: Performed By: #### C P, BNP, CBCWD #### [place] [address] International Exchange Coordinator: Horacio Gan MD Lymphocytes (Bld) [#/Vol] 0.63 10*3/uL Low 1.50-4.00 [facility] Comment on above: Performed By: #### C P, BNP, CBCWD #### [place] [address] International Exchange Coordinator: Horacio Gan MD Lymphocytes/100 WBC (Bld) 7 % Low 20.0-42.0 [facility] Comment on above: Performed By: #### C P, BNP, CBCWD #### [place] [address] International Exchange Coordinator: Horacio Gan MD Monocytes (Bld) [#/Vol] 0.79 10*3/uL Normal 0.10-0.95 [facility] Comment on above: Performed By: #### C P, BNP, CBCWD #### [place] [address] International Exchange Coordinator: Horacio Gan MD Monocytes/100 WBC (Bld) 9 % Normal 2.0-12.0 [facility] Comment on above: Performed By: #### C P, BNP, CBCWD #### [place] [address] International Exchange Coordinator: Horacio Gan MD Neutrophil (Seg) 84 % High 43.0-80.0 [facility] Comment on above: Performed By: #### C P, BNP, CBCWD #### [place] [id number] ( International Exchange Coordinator: Horacio Gan MD RBC morphology finding Nom (Bld) 2+ Normal [facility] Comment on above: Result Comment: HYPO CHROMIA 1+ OVALOCYTES 1+ POIKILOCYTOSIS 3+ POLYCHROMASIA Performed By: #### C P, BNP, CBCWD #### [place] [address] [employer] Exchange Coordinator: Horacio Gan MD Erythrocyte distribution width (RBC) [Ratio] 18.3 % High 11.5-15.0 [facility] Comment on above: Performed By: #### C P, BNP, CBCWD #### [place] [address] International Exchange Coordinator: Horacio Gan MD Hematocrit (Bld) [Volume fraction] 30.6 % Low 37.0-54.0 [facility] Comment on above: Performed By: #### C P, BNP, CBCWD #### [place] [address] International Exchange Coordinator: Horacio Gan MD Hemoglobin (Bld) [Mass/Vol] 10.5 g/dL Low 12.5-16.5 [facility] Comment on above: Performed By: #### C P, BNP, CBCWD #### [place] [address] International Exchange Coordinator: Horacio Gan MD MCH (RBC) [Entitic mass] 29.5 pg Normal 26.0-35.0 [facility] Comment on above: Performed By: #### C P, BNP, CBCWD #### [address] [place] [address] International Exchange Coordinator: Horacio Gan MD MCHC (RBC) [Mass/Vol] 34.3 g/dL Normal 32.0-34.5 [facility] Comment on above: Performed By: #### C P, BNP, CBCWD #### [address] [place] [address] International Exchange Coordinator: Horacio Gan MD MCV (RBC) [Entitic vol] 86.0 fL Normal 80.0-99.9 [facility] Comment on above: Performed By: #### C P, BNP, CBCWD #### [address] [place] [address] International Exchange Coordinator: Horacio Gan MD Platelet mean volume (Bld) [Entitic vol] 11.6 fL Normal 7.0-12.0 [facility] Comment on above: Performed By: #### C P, BNP, CBCWD #### [address] [place] [address] International Exchange Coordinator: Horacio Gan MD Platelets (Bld) [#/Vol] 212 10*3/uL Normal 130-450 [facility] Comment on above: Performed By: #### C P, BNP, CBCWD #### [address] [place] [address] International Exchange Coordinator: Horacio Gan MD RBC (Bld) [#/Vol] 3.56 10*6/uL Low 3.80-5.80 [facility] Comment on above: Performed By: #### C P, BNP, CBCWD #### [address] [place] [address] International Exchange Coordinator: Horacio Gan MD WBC (Bld) [#/Vol] 9.1 10*3/uL Normal 4.5-11.5 [facility] Comment on above: Performed By: #### C P, BNP, CBCWD #### [address] [place] [address] International Exchange Coordinator: Horacio Gan MD Comp Metabolic Profon 2023 Albumin [Mass/Vol] 2.8 g/dL Low 3.5-5.2 [facility] Comment on above: Performed By: #### C P, BNP, CBCWD #### [address] [address] [employer] Exchange Coordinator: Horacio Gan MD Alkaline Phos 109 U/L Normal 40-129 [facility] Comment on above: Performed By: #### C P, BNP, CBCWD #### [address] [place] [address] International Exchange Coordinator: Horacio Gan MD ALT [Catalytic activity/Vol] 14 U/L Normal 0-40 [facility] Comment on above: Performed By: #### C P, BNP, CBCWD #### [address] [place] [address] International Exchange Coordinator: Horacio Gan MD Anion gap [Moles/Vol] 12 mmol/L Normal 7-16 [facility] Comment on above: Performed By: #### C P, BNP, CBCWD #### [address] [place] [address] International Exchange Coordinator: Horacio Gan MD AST [Catalytic activity/Vol] 21 U/L Normal 0-39 [facility] Comment on above: Performed By: #### C P, BNP, CBCWD #### [address] [place] [address] International Exchange Coordinator: Horacio Gan MD Bilirubin [Mass/Vol] 0.5 mg/dL Normal 0.0-1.2 [facility] Comment on above: Performed By: #### C P, BNP, CBCWD #### [address] [address] International Exchange Coordinator: Horacio Gan MD Calcium [Mass/Vol] 8.6 mg/dL Normal 8.6-10.2 [facility] Comment on above: Performed By: #### C P, BNP, CBCWD #### [place] [address] International Exchange Coordinator: Horacio Gan MD Chloride [Moles/Vol] 99 mmol/L Normal 98-107 [facility] Comment on above: Performed By: #### C P, BNP, CBCWD #### [place] [address] [employer] Exchange Coordinator: Horacio Gan MD CO2 [Moles/Vol] 20 mmol/L Low 22-29 [facility] Comment on above: Performed By: #### C P, BNP, CBCWD #### [place] [address] International Exchange Coordinator: Horacio Gan MD Creatinine [Mass/Vol] 1.4 mg/dL High 0.70-1.20 [facility] Comment on above: Performed By: #### C P, BNP, CBCWD #### [place] [address] International Exchange Coordinator: Horacio Gan MD GFR/1.73 sq M.predicted among non-blacks MDRD (S/P/Bld) [Vol rate/Area] 55 mL/min/{1.73_m2} Low >60 [facility] Comment on above: Result Comment: These results are not intended for use in patients <18 years of age. eGFR results are calculated without a race factor using the 2020 CKD-EPI equation. Careful clinical correlation is recommended, particularly when comparing to results calculated using previous equations. The CKD-EPI equation is less accurate in patients with extremes of muscle mass, extra-renal metabolism of creatine, excessive creatine ingestion, or following therapy that affects renal tubular secretion. Performed By: #### C P, BNP, CBCWD #### [address] [address] International Exchange Coordinator: Horacio Gan MD Glucose [Mass/Vol] 90 mg/dL Normal 74-99 [facility] Comment on above: Performed By: #### C P, BNP, CBCWD #### [address] [address] International Exchange Coordinator: Horacio Gan MD Potassium [Moles/Vol] 4.4 mmol/L Normal 3.5-5.0 [facility] Comment on above: Performed By: #### C P, BNP, CBCWD #### [address] [address] International Exchange Coordinator: Horacio Gan MD Protein [Mass/Vol] 5.9 g/dL Low 6.4-8.3 [facility] Comment on above: Performed By: #### C P, BNP, CBCWD #### [address] [address] [employer] Exchange Coordinator: Horacio Gan MD Sodium [Moles/Vol] 131 mmol/L Low 132-146 [facility] Comment on above: Performed By: #### C P, BNP, CBCWD #### [address] [address] [employer] Exchange Coordinator: Horacio Gan MD Urea nitrogen [Mass/Vol] 40 mg/dL High 6-23 [facility] Comment on above: Performed By: #### C P, BNP, CBCWD #### [facility] [address] [place] [id number] International Exchange Coordinator: Horacio Gan MD XR CHEST PORTABLEon 10-17-19 XR CHEST PORTABLE EXAMINATION: ONE XRAY VIEW OF THE CHEST 10/17/2023 12:54 pm COMPARISON: None. HISTORY: ORDERING SYSTEM PROVIDED HISTORY: r/o pleural effusion TECHNOLOGIST PROVIDED HISTORY: Reason for exam:->r/o pleural effusion What reading provider will be dictating this exam?->CRC FINDINGS: The heart is enlarged. Atheromatous plaque affects the aortic arch. No pneumothorax is seen. The left lower lobe retrocardiac space is obscured. The left costophrenic angle is obscured. IMPRESSION: 1. Cardiomegaly. 2. Obscuration of the left lower lobe retrocardiac space and left costophrenic angle may be due to atelectasis, effusion, or pneumonia. Interpreted by: Katelin Aguilera MD Signed by: Katelin Aguilera MD 10/17/23 Final result Normal [facility] Comment on above: Order Comment: Reaso n for exam:->r/o pleural effusionWhat reading provider will be dictating this exam?->CRC Basophil percentageOrdered B y: Floyd Mcadams on 10-16-2023 Chloride [Moles/Vol] 99 mmol/L 98-107 [facility] Glucose [Mass/Vol] 94 mg/dL 74-106 [facility] Hemoglobin (Bld) [Mass/Vol] 10.4 g/dL 13.0-16.5 [facility] Potassium [Moles/Vol] 3.6 mmol/L 3.5-5.1 [facility] Sodium [Moles/Vol] 131 mmol/L 136-145 [facility] WBC (Bld) [#/Vol] 11.1 10*3/uL 4.4-11.0 [facility] Determination of erythrocyte mean corpuscular volume (MCV)Ordered By: Floyd Mcadams on 10-16-2023 MCV (RBC) [Entitic vol] 86.9 fL 80-94 [facility] Erythrocyte distribution wid th ratioOrdered By: Floyd Mcadams on 10-16-2023 Erythrocyte distribution width (RBC) [Ratio] 18.1 % 11.6-14.6 [facility] Erythrocyte distribution wid th standard deviationOrdered By: Floyd Mcadams on 10-16-2023 Erythrocyte distribution width (RBC) [Entitic vol] 57.7 fL 35.1-43.9 [facility] Hematocrit Auto (Bld) [Volum e fraction]Ordered By: Floyd Mcadams on 10-16-2023 Hematocrit (Bld) [Volume fraction] 31.9 % 40-54 [facility] - Chemistry and C hemistry - challengeOrdered By: Floyd Mcadams on 10-16-2023 CO2 [Moles/Vol] 25.0 mmol/L 21.0-32.0 [facility] Urea nitrogen/Creatinine [Mass ratio] 27.7 mg/mg 10-20 [facility] - Hematology and Cell countsOrdered By: Floyd Mcadams on 10-16-2023 MCH (RBC) [Entitic mass] 28.3 pg 27.0-32.0 [facility] MCHC (RBC) [Mass/Vol] 32.6 g/dL 32-36 [facility] Platelet mean volume (Bld) [Entitic vol] 11.0 fL 6.2-12.0 [facility] Platelets (Bld) [#/Vol] 206 10*3/uL 150-450 [facility] No Panel InformationOrdered By: Floyd Mcadams on 10-16-2023 Estimated Creatinine Clearance Calc 42.61 ml/min [facility] Estimated GFR (MDRD) Amer 51 mL/min >60 [facility] Comment on above: GFR Calc Estimated GFR (MDRD) Non-Af Amer 42 mL/min >60 [facility] Comment on above: Non- GFR Calc RBC Auto (Bld) [#/Vol]Ordere d By: Floyd Mcadams on 10-16-2023 RBC (Bld) [#/Vol] 3.67 10*6/uL 4.6-6.2 [facility] Serum or plasma calcium vamsi urement (mass/volume)Ordered By: Floyd Mcadams on 10-16-2023 Calcium [Mass/Vol] 8.4 mg/dL 8.5-10.1 [facility] Serum or plasma creatinine m easurement (mass/volume)Ordered By: Floyd Mcadams on 10-16-2023 Creatinine [Mass/Vol] 1.73 mg/dL 0.70-1.30 [facility] Comment on above: The validity of the calculated GFR & GFRAA in patients over 70 years has not been determined. Clinical correlation is essential. Serum or plasma urea nitroge n measurement (mass/volume)Ordered By: Floyd Mcadams on 10-16-2023 Urea nitrogen [Mass/Vol] 48 mg/dL - [facility] Thin prep Papanicolaou smear with manual screeningOrdered By: Floyd Mcadams on 10-16-2023 Thin prep Papanicolaou smear with manual screening 7 - [facility] Laboratory - Chemistry and C hemistry - challengeOrdered By: Floyd Mcadams on 10-15-2023 Magnesium [Mass/Vol] 2.1 mg/dL 1.6-2.6 [facility] Absolute lymphocyte countOrd ered By: Frank Kennedy on 10-14-2023 Lymphocytes Auto (Unsp spec) [#/Vol] 0.91 10*3/uL 0.83-4.51 [facility] Automated lymphocyte count a s percentage of total leukocytesOrdered By: Frank Kennedy on 10-14-2023 Lymphocytes/100 WBC Auto (Unsp spec) 6.2 % 19-41 [facility] Basophil percentageOrdered B y: Frank Kennedy on 10-14-2023 Basophil percentage 0-5 SEEN /hpf 0-5 [facility] Basophils/100 WBC (Bld) 0.2 % 0-1 [facility] Chloride [Moles/Vol] 101 mmol/L 98-107 [facility] [facility] Eosinophils/100 WBC (Bld) 0.0 % 0-5 [facility] Glucose [Mass/Vol] 95 mg/dL 74-106 [facility] Hemoglobin (Bld) [Mass/Vol] 12.8 g/dL 13.0-16.5 [facility] Monocytes/100 WBC (Bld) 9.1 % 0-10 [facility] Neutrophils (Bld) [#/Vol] 12.2 10*3/uL 2.0-7.7 [facility] Neutrophils/100 WBC (Bld) 84.0 % 47-70 [facility] Potassium [Moles/Vol] 4.0 mmol/L 3.5-5.1 [facility] Sodium [Moles/Vol] 134 mmol/L 136-145 [facility] WBC (Bld) [#/Vol] 14.6 10*3/uL 4.4-11.0 [facility] Bilirubin Test strip Ql (U)O rdered By: Frank Kennedy on 10-14-2023 Bilirubin Ql (U) 3 mg/dL Negative [facility] Comment on above: COLOR OF URINE MAY A FFECT DIPSTICK RESULTS. Culture, urineOrdered By: Suzanne Kennedy on 10-14-2023 Bacteria identified Cx Nom (U) Positive [facility] Determination of erythrocyte mean corpuscular volume (MCV)Ordered By: Frank Kennedy on 10-14-2023 MCV (RBC) [Entitic vol] 88.5 fL 80-94 [facility] Erythrocyte distribution wid th ratioOrdered By: Frank Kennedy on 10-14-2023 Erythrocyte distribution width (RBC) [Ratio] 17.6 % 11.6-14.6 [facility] Erythrocyte distribution wid th standard deviationOrdered By: Frank Kennedy on 10-14-2023 Erythrocyte distribution width (RBC) [Entitic vol] 57.0 fL 35.1-43.9 [facility] Hematocrit Auto (Bld) [Volum e fraction]Ordered By: Frank Kennedy on 10-14-2023 Hematocrit (Bld) [Volume fraction] 39.9 % 40-54 [facility] Hyaline casts LM.LPF (Urine sed) [#/Area]Ordered By: Frank Kennedy on 10-14-2023 Hyaline casts (Urine sed) [#/Area] 0 /[LPF] 0-5 [facility] Immature granulocytes/100 WB C Auto (Bld)Ordered By: Frank Kennedy on 10-14-2023 Immature granulocytes/100 WBC (Bld) 0.500 % 0.0-0.9 [facility] Comment on above: IG% - Immature Granu locytes (promyelocytes, myelocytes and metamyelocytes) > 1% indicates that a LEFT SHIFT is Present. Ketones Test strip Ql (U)Ord ered By: Frank Kennedy on 10-14-2023 Ketones Ql (U) 15 mg/dl Negative [facility] Laboratory - Chemistry and C hemistry - challengeOrdered By: Frank Kennedy on 10-14-2023 CO2 [Moles/Vol] 25.0 mmol/L 21.0-32.0 [facility] Natriuretic peptide B (Bld) [Mass/Vol] 459.7 pg/mL 0-100 [facility] Urea nitrogen/Creatinine [Mass ratio] 16.4 mg/mg 10-20 [facility] Laboratory - Hematology and Cell countsOrdered By: Frank Kennedy on 10-14-2023 MCH (RBC) [Entitic mass] 28.4 pg 27.0-32.0 [facility] MCHC (RBC) [Mass/Vol] 32.1 g/dL 32-36 [facility] Nucleated RBC/100 WBC (Bld) [Ratio] 0 % 0-5 [facility] Platelet mean volume (Bld) [Entitic vol] 11.1 fL 6.2-12.0 [facility] Platelets (Bld) [#/Vol] 248 10*3/uL 150-450 [facility] Mucus LM Ql (Urine sed)Order ed By: Frank Kennedy on 10-14-2023 Mucus Ql (Urine sed) 1+ /hpf [facility] Nitrite Test strip Ql (U)Ord ered By: Frank Kennedy on 10-14-2023 Nitrite Ql (U) Positive Negative [facility] No Panel InformationOrdered By: Frank Kennedy on 10-14-2023 Urine RBC 0 SEEN /hpf 0-5 [facility] Digoxin Level 0.60 ng/mL 0.80-2.00 [facility] Ethyl Alcohol Level < 3.0 mg/dL [facility] Comment on above: The serum:whole bloo d ethanol ratio is approximately 1.14and varies slightly with hematocrit. Medical Alcohol reference interval and critical value innon-tolerant individuals; 50 - 100 Impairment 100 Intoxication 100 - 250 Severe Poisoning 250 - 400 Deep/possible fatal coma Estimated Creatinine Clearance Calc 55.23 ml/min [facility] Estimated GFR (MDRD) Amer 68 mL/min >60 [facility] Comment on above: GFR Calc Estimated GFR (MDRD) Non-Af Amer 56 mL/min >60 [facility] Comment on above: Non- GFR Calc Troponin I High Sensitivity 11 pg/mL 3.0-78.0 [facility] Comment on above: Please Note: [place] t Units and Gender Specific Reference Ranges. For more information see Policy Stat Procedure [place] High Sensitivity Troponin (TNIH) and attachments. Protein Test strip Ql (U)Ord ered By: Frank Kennedy on 10-14-2023 Protein Ql (U) 30 mg/dl Negative [facility] RBC Auto (Bld) [#/Vol]Ordere d By: Frank Kennedy on 10-14-2023 RBC (Bld) [#/Vol] 4.51 10*6/uL 4.6-6.2 [facility] Serum or plasma calcium vamsi urement (mass/volume)Ordered By: Frank Kennedy on 10-14-2023 Calcium [Mass/Vol] 9.5 mg/dL 8.5-10.1 [facility] Serum or plasma creatinine m easurement (mass/volume)Ordered By: Frank Kennedy on 10-14-2023 Creatinine [Mass/Vol] 1.34 mg/dL 0.70-1.30 [facility] Comment on above: The validity of the calculated GFR & GFRAA in patients over 70 years has not been determined. Clinical correlation is essential. Serum or plasma urea nitroge n measurement (mass/volume)Ordered By: Frank Kennedy on 10-14-2023 Urea nitrogen [Mass/Vol] 22 mg/dL 7-18 [facility] Squamous epithelial cells de tection in urine sediment by light microscopyOrdered By: Frank Kennedy on 10-14-2023 Epithelial cells.squamous LM Ql (Urine sed) 0 SEEN /hpf 0-5 [facility] Thin prep Papanicolaou smear with manual screeningOrdered By: Frank Kennedy on 10-14-2023 Thin prep Papanicolaou smear with manual screening 8 5-15 [facility] Urine blood detectionOrdered By: Frank Kennedy on 10-14-2023 RBC Ql (U) 10 /ul Negative [facility] Urine clarityOrdered By: Lisa wick Brent on 10-14-2023 Clarity (U) Clear Clear [facility] Urine color determinationOrd ered By: Frank Kennedy on 10-14-2023 Color (U) Yellow Yellow [facility] Urine glucose detectionOrder ed By: Frank Kennedy on 10-14-2023 Glucose Ql (U) 1000 mg/dl Normal [facility] Urine leukocyte esterase det ection by dipstickOrdered By: Frank Kennedy on 10-14-2023 Leukocyte esterase Test strip Ql (U) 25 /ul Negative [facility] Urine pHOrdered By: Frank gill on 10-14-2023 pH (U) 6.5 [pH] 5.0 - 8.0 [facility] Urine sediment bacteria coun t by microscopy (number/high power field)Ordered By: Frank Kennedy on 10-14-2023 Bacteria LM.HPF (Urine sed) [#/Area] 1 /[HPF] None Seen [facility] Urine specific gravity measu rementOrdered By: Frank Kennedy on 10-14-2023 Specific gravity (U) [Rel density] 1.010 1.002-1.030 [facility] Urine urobilinogen measureme ntOrdered By: Frank Kennedy on 10-14-2023 Urobilinogen Ql (U) 1 mg/dl Normal [facility] CBC with Diffon 10-02-2023 Abs. Basophil 0.04 k/uL Normal 0.00-0.20 [facility] Comment on above: Performed By: #### C CHANA, CP #### [address] [address] [employer] Coordinator: Horacio Gan MD Abs.Imm.Granulocyte <0.03 Normal 0.00-0.58 [facility] Comment on above: Performed By: #### C CHANA, CP #### [address] [address] [employer] Coordinator: Horacio Gan MD Abs.Neutrophil (Seg) 2.19 k/uL Normal 1.80-7.30 [facility] Comment on above: Performed By: #### Rosalie ZAYAS, CP #### [place] [address] [employer] Coordinator: Horacio Gan MD Basophils/100 WBC (Bld) 1 % Normal 0.0-2.0 [facility] Comment on above: Performed By: #### C CHANA, CP #### [place] [address] [employer] Coordinator: Horacio Gan MD Eosinophils (Bld) [#/Vol] 0.18 10*3/uL Normal 0.05-0.50 [facility] Comment on above: Performed By: #### Rosalie ZAYAS, CP #### [place] [address] [employer] Coordinator: Horacio Gan MD Eosinophils/100 WBC (Bld) 4 % Normal 0-6 [facility] Comment on above: Performed By: #### Rosalie ZAYAS, CP #### [place] [address] [employer] Coordinator: Horacio Gan MD Erythrocyte distribution width (RBC) [Ratio] 17.1 % High 11.5-15.0 [facility] Comment on above: Performed By: #### C CHANA, CP #### [place] [address] [employer] Coordinator: Horacio Gan MD Hematocrit (Bld) [Volume fraction] 36.3 % Low 37.0-54.0 [facility] Comment on above: Performed By: #### Rosalie ZAYAS, CP #### [place] [address] [employer] Coordinator: oHracio Gan MD Hemoglobin (Bld) [Mass/Vol] 11.1 g/dL Low 12.5-16.5 [facility] Comment on above: Performed By: #### Rosalie ZAYAS, CP #### [address] [place] [address] [employer] Coordinator: Horacio Gan MD Immature granulocytes/100 WBC (Bld) 1 % Normal 0.0-5.0 [facility] Comment on above: Performed By: #### C CHANA, CP #### [address] [address] [employer] Coordinator: Horacio Gan MD Lymphocytes (Bld) [#/Vol] 1.11 10*3/uL Low 1.50-4.00 [facility] Comment on above: Performed By: #### Rosalie ZAYAS, CP #### [address] [address] [employer] Coordinator: Horacio Gan MD Lymphocytes/100 WBC (Bld) 27 % Normal 20.0-42.0 [facility] Comment on above: Performed By: #### Rosalie ZAYAS, CP #### [place] [address] [employer] Coordinator: Horacio Gan MD MCH (RBC) [Entitic mass] 28.8 pg Normal 26.0-35.0 [facility] Comment on above: Performed By: #### Rosalie ZAYAS, CP #### [address] [address] [employer] Coordinator: Horacio Gan MD MCHC (RBC) [Mass/Vol] 30.6 g/dL Low 32.0-34.5 [facility] Comment on above: Performed By: #### C CHANA, CP #### [address] [place] [address] [employer] Coordinator: Horacio Gan MD MCV (RBC) [Entitic vol] 94.0 fL Normal 80.0-99.9 [facility] Comment on above: Performed By: #### Rosalie ZAYAS, CP #### [address] [address] [employer] Coordinator: Horacio Gan MD Monocytes (Bld) [#/Vol] 0.62 10*3/uL Normal 0.10-0.95 [facility] Comment on above: Performed By: #### Rosalie ZAYAS, CP #### [address] [address] [employer] Coordinator: Horacio Gan MD Monocytes/100 WBC (Bld) 15 % High 2.0-12.0 [facility] Comment on above: Performed By: #### Rosalie ZAYAS, CP #### [address] [address] [employer] Coordinator: Horacio Gan MD Neutrophil (Seg) 53 % Normal 43.0-80.0 [facility] Comment on above: Performed By: #### Rosalie ZAYAS, CP #### [place] [address] [employer] Coordinator: Horacio Gan MD Platelet mean volume (Bld) [Entitic vol] 11.0 fL Normal 7.0-12.0 [facility] Comment on above: Performed By: #### Rosalie ZAYAS, CP #### [address] [address] [employer] Coordinator: Horacio Gan MD Platelets (Bld) [#/Vol] 384 10*3/uL Normal 130-450 [facility] Comment on above: Performed By: #### C CHANA, CP #### [address] [place] [address] [employer] Coordinator: Horacio Gan MD RBC (Bld) [#/Vol] 3.86 10*6/uL Normal 3.80-5.80 [facility] Comment on above: Performed By: #### C CHANA, CP #### [address] [place] [address] [employer] Coordinator: Horacio Gan MD WBC (Bld) [#/Vol] 4.2 10*3/uL Low 4.5-11.5 [facility] Comment on above: Performed By: #### C CHNAA, CP #### [address] [place] [address] [employer] Coordinator: Horacio Gan MD Comp Metabolic Profon 2023 Albumin [Mass/Vol] 3.4 g/dL Low 3.5-5.2 [facility] Comment on above: Performed By: #### C CHANA, CP #### [address] [place] [address] [employer] Coordinator: Horacio Gan MD Alkaline Phos 83 U/L Normal 40-129 [facility] Comment on above: Performed By: #### C CHANA, CP #### [address] [place] [address] [employer] Coordinator: Horacio Gan MD ALT [Catalytic activity/Vol] 9 U/L Normal 0-40 [facility] Comment on above: Result Comment: Spec imen lipemia has exceeded the interference as defined by Tanya. Results may be affected. Performed By: #### C CHANA, CP #### [address] [place] [address] [employer] Coordinator: Horacio Gan MD Anion gap [Moles/Vol] 12 mmol/L Normal 7-16 [facility] Comment on above: Performed By: #### C CHANA, CP #### [address] [place] [address] [employer] Coordinator: Horacio Gan MD AST [Catalytic activity/Vol] 26 U/L Normal 0-39 [facility] Comment on above: Result Comment: Spec imen lipemia has exceeded the interference as defined by Tanya. Results may be affected. Performed By: #### C CHANA, CP #### [address] [place] [address] [employer] Coordinator: Horacio Gan MD Bilirubin [Mass/Vol] 0.3 mg/dL Normal 0.0-1.2 [facility] Comment on above: Performed By: #### C CHANA, CP #### [address] [place] [address] [employer] Coordinator: Horacio Gan MD Calcium [Mass/Vol] 9.2 mg/dL Normal 8.6-10.2 [facility] Comment on above: Performed By: #### C CHANA, CP #### [address] [place] [address] [employer] Coordinator: Horacio Gan MD Chloride [Moles/Vol] 104 mmol/L Normal 98-107 [facility] Comment on above: Performed By: #### C CHANA, CP #### [address] [place] [address] [employer] Coordinator: Horacio Gan MD CO2 [Moles/Vol] 22 mmol/L Normal 22-29 [facility] Comment on above: Performed By: #### C CHANA, CP #### [address] [place] [id number] [employer] Coordinator: Horacio Gan MD Creatinine [Mass/Vol] 1.2 mg/dL Normal 0.70-1.20 [facility] Comment on above: Performed By: #### C CHANA, CP #### [address] [address] [employer] Coordinator: Horacio Gan MD GFR/1.73 sq M.predicted among non-blacks MDRD (S/P/Bld) [Vol rate/Area] mL/min/{1.73_m2} Normal >60 [facility] Comment on above: Result Comment: These results are not intended for use in patients <18 years of age. eGFR results are calculated without a race factor using the 2020 CKD-EPI equation. Careful clinical correlation is recommended, particularly when comparing to results calculated using previous equations. The CKD-EPI equation is less accurate in patients with extremes of muscle mass, extra-renal metabolism of creatine, excessive creatine ingestion, or following therapy that affects renal tubular secretion. Performed By: #### C CHANA, CP #### [place] [address] [employer] Coordinator: Horacio Gan MD Glucose [Mass/Vol] 67 mg/dL Low 74-99 [facility] Comment on above: Performed By: #### Rosalie ZAYAS, CP #### [address] [address] [employer] Coordinator: Horacio Gan MD Potassium [Moles/Vol] 5.0 mmol/L Normal 3.5-5.0 [facility] Comment on above: Performed By: #### C CHANA, CP #### [address] [address] [employer] Coordinator: Horacio Gan MD Protein [Mass/Vol] 6.2 g/dL Low 6.4-8.3 [facility] Comment on above: Performed By: #### C CHANA, CP #### [place] [address] [employer] Coordinator: Horacio Gan MD Sodium [Moles/Vol] 138 mmol/L Normal 132-146 [facility] Comment on above: Performed By: #### Rosalie ZAYAS, CP #### [place] [address] [employer] Coordinator: Horacio Gan MD Urea nitrogen [Mass/Vol] 24 mg/dL High 6-23 [facility] Comment on above: Performed By: #### C CHANA, CP #### [place] [address] [employer] Coordinator: Horacio Gan MD CBC with Diffon 09-27-2023 Abs. Basophil 0.04 k/uL Normal 0.00-0.20 [facility] Comment on above: Performed By: #### Rosalie ZAYAS, CP #### [place] [address] [employer] Coordinator: Horacio Gan MD Abs.Imm.Granulocyte <0.03 Normal 0.00-0.58 [facility] Comment on above: Performed By: #### Rosalie ZAYAS, CP #### [place] [address] [employer] Coordinator: Horacio Gan MD Abs.Neutrophil (Seg) 1.86 k/uL Normal 1.80-7.30 [facility] Comment on above: Performed By: #### Rosalie ZAYAS, CP #### [place] [address] [employer] Coordinator: Horacio Gan MD Basophils/100 WBC (Bld) 1 % Normal 0.0-2.0 [facility] Comment on above: Performed By: #### C CHANA, CP #### [place] [address] [employer] Coordinator: Horacio Gan MD Eosinophils (Bld) [#/Vol] 0.17 10*3/uL Normal 0.05-0.50 [facility] Comment on above: Performed By: #### C CHANA, CP #### [place] [address] [employer] Coordinator: Horacio Gan MD Eosinophils/100 WBC (Bld) 5 % Normal 0-6 [facility] Comment on above: Performed By: #### C CHANA, CP #### [place] [address] [employer] Coordinator: Horacio Gan MD Erythrocyte distribution width (RBC) [Ratio] 16.7 % High 11.5-15.0 [facility] Comment on above: Performed By: #### C CHANA, CP #### [place] [address] [employer] Coordinator: Horacio Gan MD Hematocrit (Bld) [Volume fraction] 36.9 % Low 37.0-54.0 [facility] Comment on above: Performed By: #### C CHANA, CP #### [place] [address] [employer] Coordinator: Horacio Gan MD Hemoglobin (Bld) [Mass/Vol] 11.4 g/dL Low 12.5-16.5 [facility] Comment on above: Performed By: #### C CHANA, CP #### [place] [id number] [employer] Coordinator: Horacio Gan MD Immature granulocytes/100 WBC (Bld) 0 % Normal 0.0-5.0 [facility] Comment on above: Performed By: #### C CHANA, CP #### [address] [address] [employer] Coordinator: Horacio Gan MD Lymphocytes (Bld) [#/Vol] 0.85 10*3/uL Low 1.50-4.00 [facility] Comment on above: Performed By: #### C CHANA, CP #### [address] [address] [employer] Coordinator: Horacio Gan MD Lymphocytes/100 WBC (Bld) 25 % Normal 20.0-42.0 [facility] Comment on above: Performed By: #### Rosalie ZAYAS, CP #### [place] [address] [employer] Coordinator: Horacio Gan MD MCH (RBC) [Entitic mass] 28.1 pg Normal 26.0-35.0 [facility] Comment on above: Performed By: #### C CHANA, CP #### [place] [address] [employer] Coordinator: Horacio Gan MD MCHC (RBC) [Mass/Vol] 30.9 g/dL Low 32.0-34.5 [facility] Comment on above: Performed By: #### C CHANA, CP #### [address] [address] [employer] Coordinator: Horacio Gan MD MCV (RBC) [Entitic vol] 90.9 fL Normal 80.0-99.9 [facility] Comment on above: Performed By: #### Rosalie ZAYAS, CP #### [place] [address] [employer] Coordinator: Horacio Gan MD Monocytes (Bld) [#/Vol] 0.53 10*3/uL Normal 0.10-0.95 [facility] Comment on above: Performed By: #### Rosalie ZAYAS, CP #### [address] [place] [address] [employer] Coordinator: Horacio Gan MD Monocytes/100 WBC (Bld) 15 % High 2.0-12.0 [facility] Comment on above: Performed By: #### C CHANA, CP #### [address] [address] [employer] Coordinator: Horacio Gan MD Neutrophil (Seg) 54 % Normal 43.0-80.0 [facility] Comment on above: Performed By: #### Rosalie ZAYAS, CP #### [place] [address] [employer] Coordinator: Horacio Gan MD Platelet mean volume (Bld) [Entitic vol] 10.7 fL Normal 7.0-12.0 [facility] Comment on above: Performed By: #### Rosalie ZAYAS, CP #### [address] [address] [employer] Coordinator: Horaico Gan MD Platelets (Bld) [#/Vol] 352 10*3/uL Normal 130-450 [facility] Comment on above: Performed By: #### Rosalie ZAYAS, CP #### [address] [address] [employer] Coordinator: Horacio Gan MD RBC (Bld) [#/Vol] 4.06 10*6/uL Normal 3.80-5.80 [facility] Comment on above: Performed By: #### Rosalie ZAYAS, CP #### [address] [place] [address] [employer] Coordinator: Horacio Gan MD WBC (Bld) [#/Vol] 3.5 10*3/uL Low 4.5-11.5 [facility] Comment on above: Performed By: #### C CHANA, CP #### [address] [place] [address] [employer] Coordinator: Horacio Gan MD Comp Metabolic Profon 2023 Albumin [Mass/Vol] 3.3 g/dL Low 3.5-5.2 [facility] Comment on above: Performed By: #### C CHANA, CP #### [address] [place] [address] [employer] Coordinator: Horacio Gan MD Alkaline Phos 90 U/L Normal 40-129 [facility] Comment on above: Performed By: #### C CHANA, CP #### [address] [place] [address] [employer] Coordinator: Horacio Gan MD ALT [Catalytic activity/Vol] 15 U/L Normal 0-40 [facility] Comment on above: Performed By: #### Rosalie ZAYAS, CP #### [address] [place] [address] [employer] Coordinator: Horacio Gan MD Anion gap [Moles/Vol] 11 mmol/L Normal 7-16 [facility] Comment on above: Performed By: #### Rosalie ZAYAS, CP #### [address] [place] [address] [employer] Coordinator: Horacio Gan MD AST [Catalytic activity/Vol] 29 U/L Normal 0-39 [facility] Comment on above: Performed By: #### Rosalie ZAYAS, CP #### [address] [address] [employer] Coordinator: Horacio Gan MD Bilirubin [Mass/Vol] 0.5 mg/dL Normal 0.0-1.2 [facility] Comment on above: Performed By: #### Rosalie ZAYAS, CP #### [address] [address] [employer] Coordinator: Horacio Gan MD Calcium [Mass/Vol] 9.2 mg/dL Normal 8.6-10.2 [facility] Comment on above: Performed By: #### C CHANA, CP #### [address] [address] [employer] Coordinator: Horacio Gan MD Chloride [Moles/Vol] 100 mmol/L Normal 98-107 [facility] Comment on above: Performed By: #### Rosalie ZAYAS, CP #### [address] [address] [employer] Coordinator: Horacio Gan MD CO2 [Moles/Vol] 27 mmol/L Normal 22-29 [facility] Comment on above: Performed By: #### Rosalie ZAYAS, CP #### [address] [address] [employer] Coordinator: Horacio Gan MD Creatinine [Mass/Vol] 1.3 mg/dL High 0.70-1.20 [facility] Comment on above: Performed By: #### Rosalie ZAYAS, CP #### [address] [address] [employer] Coordinator: Horacio Gan MD GFR/1.73 sq M.predicted among non-blacks MDRD (S/P/Bld) [Vol rate/Area] 59 mL/min/{1.73_m2} Low >60 [facility] Comment on above: Result Comment: These results are not intended for use in patients <18 years of age. eGFR results are calculated without a race factor using the 2020 CKD-EPI equation. Careful clinical correlation is recommended, particularly when comparing to results calculated using previous equations. The CKD-EPI equation is less accurate in patients with extremes of muscle mass, extra-renal metabolism of creatine, excessive creatine ingestion, or following therapy that affects renal tubular secretion. Performed By: #### C CHANA, CP #### [address] [address] [employer] Coordinator: Horacio Gan MD Glucose [Mass/Vol] 75 mg/dL Normal 74-99 [facility] Comment on above: Performed By: #### C CHANA, CP #### [address] [address] [employer] Coordinator: Horacio Gan MD Potassium [Moles/Vol] 4.7 mmol/L Normal 3.5-5.0 [facility] Comment on above: Performed By: #### C CHANA, CP #### [address] [place] [address] [employer] Coordinator: Horacio Gan MD Protein [Mass/Vol] 6.4 g/dL Normal 6.4-8.3 [facility] Comment on above: Performed By: #### C CHANA, CP #### [address] [address] [employer] Coordinator: Horacio Gan MD Sodium [Moles/Vol] 138 mmol/L Normal 132-146 [facility] Comment on above: Performed By: #### C CHANA, CP #### [address] [place] [address] [employer] Coordinator: Horacio Gan MD Urea nitrogen [Mass/Vol] 27 mg/dL High 6-23 [facility] Comment on above: Performed By: #### Rosalie ZAYAS, CP #### [address] [address] [employer] Coordinator: Horacio Gan MD Magnesiumon 09-27-2023 Magnesium [Mass/Vol] 2.3 mg/dL Normal 1.6-2.6 [facility] Comment on above: Performed By: #### Rosalie ZAYAS, CP #### [address] [address] International Exchange Coordinator: Horacio Gan MD CBC with Diffon 09-24-2023 Abs. Basophil 0.04 k/uL Normal 0.00-0.20 [facility] Comment on above: Performed By: #### Rosalie ZAYAS, CP #### [address] [address] International Exchange Coordinator: Horacio Gan MD Abs.Imm.Granulocyte <0.03 Normal 0.00-0.58 [facility] Comment on above: Performed By: #### Rosalie ZAYAS, CP #### [address] [address] International Exchange Coordinator: Horacio Gan MD Abs.Neutrophil (Seg) 2.63 k/uL Normal 1.80-7.30 [facility] Comment on above: Performed By: #### Rosalie ZAYAS, CP #### [address] [address] International Exchange Coordinator: Horacio Gan MD Basophils/100 WBC (Bld) 1 % Normal 0.0-2.0 [facility] Comment on above: Performed By: #### Rosalie ZAYAS, CP #### [address] [address] International Exchange Coordinator: Horacio Gan MD Eosinophils (Bld) [#/Vol] 0.23 10*3/uL Normal 0.05-0.50 [facility] Comment on above: Performed By: #### Rosalie ZAYAS, CP #### [address] [place] [address] International Exchange Coordinator: Horacio Gan MD Eosinophils/100 WBC (Bld) 6 % Normal 0-6 [facility] Comment on above: Performed By: #### C CHANA, CP #### [place] [address] International Exchange Coordinator: Horacio Gan MD Erythrocyte distribution width (RBC) [Ratio] 16.5 % High 11.5-15.0 [facility] Comment on above: Performed By: #### Rosalie ZAYAS, CP #### [address] [place] [address] International Exchange Coordinator: Horacio Gan MD Hematocrit (Bld) [Volume fraction] 39.4 % Normal 37.0-54.0 [facility] Comment on above: Performed By: #### Rosalie ZAYAS, CP #### [place] [address] International Exchange Coordinator: Horacio Gan MD Hemoglobin (Bld) [Mass/Vol] 12.3 g/dL Low 12.5-16.5 [facility] Comment on above: Performed By: #### Rosalie ZAYAS, CP #### [place] [address] International Exchange Coordinator: Horacio Gan MD Immature granulocytes/100 WBC (Bld) 1 % Normal 0.0-5.0 [facility] Comment on above: Performed By: #### Rosalie ZAYAS, CP #### [place] [address] [employer] Exchange Coordinator: Horacio Gan MD Lymphocytes (Bld) [#/Vol] 0.75 10*3/uL Low 1.50-4.00 [facility] Comment on above: Performed By: #### Roslaie ZAYAS, CP #### [place] [address] [employer] Exchange Coordinator: Horacio Gan MD Lymphocytes/100 WBC (Bld) 18 % Low 20.0-42.0 [facility] Comment on above: Performed By: #### Rosalie ZAAYS, CP #### [place] [address] [employer] Exchange Coordinator: Horacio Gan MD MCH (RBC) [Entitic mass] 28.7 pg Normal 26.0-35.0 [facility] Comment on above: Performed By: #### Rosalie ZAYAS, CP #### [place] [address] [employer] Exchange Coordinator: Horacio Gan MD MCHC (RBC) [Mass/Vol] 31.2 g/dL Low 32.0-34.5 [facility] Comment on above: Performed By: #### Rosalie ZAYAS, CP #### [place] [address] [employer] Exchange Coordinator: Horacio Gan MD MCV (RBC) [Entitic vol] 91.8 fL Normal 80.0-99.9 [facility] Comment on above: Performed By: #### Rosalie ZAYAS, CP #### [place] [address] [employer] Exchange Coordinator: Horacio Gan MD Monocytes (Bld) [#/Vol] 0.54 10*3/uL Normal 0.10-0.95 [facility] Comment on above: Performed By: #### Rosalie ZAYAS, CP #### [address] [place] [address] International Exchange Coordinator: Horacio Gan MD Monocytes/100 WBC (Bld) 13 % High 2.0-12.0 [facility] Comment on above: Performed By: #### C CHANA, CP #### [address] [place] [address] International Exchange Coordinator: Horacio Gan MD Neutrophil (Seg) 62 % Normal 43.0-80.0 [facility] Comment on above: Performed By: #### C CHANA, CP #### [address] [address] International Exchange Coordinator: Horacio Gan MD Platelet mean volume (Bld) [Entitic vol] 11.2 fL Normal 7.0-12.0 [facility] Comment on above: Performed By: #### Rosalie ZAYAS, CP #### [address] [address] International Exchange Coordinator: Horacio Gan MD Platelets (Bld) [#/Vol] 296 10*3/uL Normal 130-450 [facility] Comment on above: Performed By: #### Rosalie ZAYAS, CP #### [address] [place] [address] [employer] Exchange Coordinator: Horacio Gan MD RBC (Bld) [#/Vol] 4.29 10*6/uL Normal 3.80-5.80 [facility] Comment on above: Performed By: #### C CHANA, CP #### [address] [address] International Exchange Coordinator: Horacio Gan MD WBC (Bld) [#/Vol] 4.2 10*3/uL Low 4.5-11.5 [facility] Comment on above: Performed By: #### C CHANA, CP #### [address] [place] [address] [employer] Exchange Coordinator: Horacio Gan MD Comp Metabolic Profon 2023 Albumin [Mass/Vol] 3.3 g/dL Low 3.5-5.2 [facility] Comment on above: Performed By: #### C CHANA, CP #### [address] [address] International Exchange Coordinator: Horacio Gan MD Alkaline Phos 96 U/L Normal 40-129 [facility] Comment on above: Performed By: #### C CHANA, CP #### [address] [place] [address] [employer] Exchange Coordinator: Horacio Gan MD ALT [Catalytic activity/Vol] 20 U/L Normal 0-40 [facility] Comment on above: Performed By: #### C CHANA, CP #### [address] [place] [address] [employer] Exchange Coordinator: Horacio Gan MD Anion gap [Moles/Vol] 16 mmol/L Normal 7-16 [facility] Comment on above: Performed By: #### C CHANA, CP #### [address] [place] [address] [employer] Exchange Coordinator: Horacio Gan MD AST [Catalytic activity/Vol] 36 U/L Normal 0-39 [facility] Comment on above: Performed By: #### C CHANA, CP #### [address] [place] [address] [employer] Exchange Coordinator: Horacio Gan MD Bilirubin [Mass/Vol] 0.6 mg/dL Normal 0.0-1.2 [facility] Comment on above: Performed By: #### C CHANA, CP #### [address] [place] [address] [employer] Exchange Coordinator: Horacio Gan MD Calcium [Mass/Vol] 9.3 mg/dL Normal 8.6-10.2 [facility] Comment on above: Performed By: #### C CHANA, CP #### [address] [address] [employer] Exchange Coordinator: Horacio Gan MD Chloride [Moles/Vol] 98 mmol/L Normal 98-107 [facility] Comment on above: Performed By: #### Rosalie ZAYAS, CP #### [address] [address] [employer] Exchange Coordinator: Horacio Gan MD CO2 [Moles/Vol] 26 mmol/L Normal 22-29 [facility] Comment on above: Performed By: #### Rosalie ZAYAS, CP #### [address] [address] [employer] Exchange Coordinator: Horacio Gan MD Creatinine [Mass/Vol] 1.1 mg/dL Normal 0.70-1.20 [facility] Comment on above: Performed By: #### Rosalie ZAYAS, CP #### [address] [address] International Exchange Coordinator: Horacio Gan MD GFR/1.73 sq M.predicted among non-blacks MDRD (S/P/Bld) [Vol rate/Area] mL/min/{1.73_m2} Normal >60 [facility] Comment on above: Result Comment: These results are not intended for use in patients <18 years of age. eGFR results are calculated without a race factor using the 2020 CKD-EPI equation. Careful clinical correlation is recommended, particularly when comparing to results calculated using previous equations. The CKD-EPI equation is less accurate in patients with extremes of muscle mass, extra-renal metabolism of creatine, excessive creatine ingestion, or following therapy that affects renal tubular secretion. Performed By: #### Rosalie ZAYAS, CP #### [address] [place] [address] International Exchange Coordinator: Horacio Gan MD Glucose [Mass/Vol] 70 mg/dL Low 74-99 [facility] Comment on above: Performed By: #### C CHANA, CP #### [address] [place] [address] [employer] Exchange Coordinator: Horacio Gan MD Potassium [Moles/Vol] 4.3 mmol/L Normal 3.5-5.0 [facility] Comment on above: Performed By: #### Rosalie ZAYAS, CP #### [address] [place] [address] [employer] Exchange Coordinator: Horacio Gan MD Protein [Mass/Vol] 6.9 g/dL Normal 6.4-8.3 [facility] Comment on above: Performed By: #### Rosalie ZAYAS, CP #### [address] [place] [address] [employer] Exchange Coordinator: Horacio Gan MD Sodium [Moles/Vol] 140 mmol/L Normal 132-146 [facility] Comment on above: Performed By: #### Rosalie ZAYAS, CP #### [address] [place] [address] [employer] Exchange Coordinator: Horacio Gan MD Urea nitrogen [Mass/Vol] 26 mg/dL High 6-23 [facility] Comment on above: Performed By: #### Rosalie ZAYAS, CP #### [address] [place] [address] [employer] Exchange Coordinator: Horacio Gan MD Digoxinon 09-24-2023 Digoxin [Mass/Vol] 0.7 ng/mL Low 0.8-2.0 [facility] Comment on above: Performed By: #### Rosalie ZAYAS, CP #### [address] [place] [address] [employer] Exchange Coordinator: Horacio Gan MD Date last dose, [facility] Comment on above: Performed By: #### Rosalie ZAYAS, CP #### [address] [place] [address] [employer] Exchange Coordinator: Horacio Gan MD Dose amount, [facility] Comment on above: Performed By: #### C CHANA, CP #### [address] [place] [address] [employer] Exchange Coordinator: Horacio Gan MD Time last dose, [facility] Comment on above: Performed By: #### Rosalie ZAYAS, CP #### [address] [address] International Exchange Coordinator: Horacio Gan MD CBC with Diffon 09-17-2023 Abs. Basophil 0.00 k/uL Normal 0.00-0.20 [facility] Comment on above: Performed By: #### Rosalie ZAYAS, CP #### [address] [place] [address] International Exchange Coordinator: Horacio Gan MD Abs.Neutrophil (Seg) 7.51 k/uL High 1.80-7.30 [facility] Comment on above: Performed By: #### Rosalie ZAYAS, CP #### [address] [place] [address] International Exchange Coordinator: Horacio Gan MD Basophils/100 WBC (Bld) 0 % Normal 0.0-2.0 [facility] Comment on above: Performed By: #### Rosalie ZAYAS, CP #### [address] [place] [address] [employer] Exchange Coordinator: Horacio Gan MD Eosinophils (Bld) [#/Vol] 0.00 10*3/uL Low 0.05-0.50 [facility] Comment on above: Performed By: #### C CHANA, CP #### [place] [address] [employer] Exchange Coordinator: Horacio Gan MD Eosinophils/100 WBC (Bld) 0 % Normal 0-6 [facility] Comment on above: Performed By: #### C CHANA, CP #### [place] [address] [employer] Exchange Coordinator: Horacio Gan MD Lymphocytes (Bld) [#/Vol] 0.31 10*3/uL Low 1.50-4.00 [facility] Comment on above: Performed By: #### Rosalie ZAYAS, CP #### [place] [address] [employer] Exchange Coordinator: Horacio Gan MD Lymphocytes/100 WBC (Bld) 4 % Low 20.0-42.0 [facility] Comment on above: Performed By: #### Rosalie ZAYAS, CP #### [place] [address] [employer] Exchange Coordinator: Horacio Gan MD Monocytes (Bld) [#/Vol] 1.17 10*3/uL High 0.10-0.95 [facility] Comment on above: Performed By: #### C CHANA, CP #### [place] [address] [employer] Exchange Coordinator: Horacio Gan MD Monocytes/100 WBC (Bld) 13 % High 2.0-12.0 [facility] Comment on above: Performed By: #### Rosalie ZAYAS, CP #### [address] [place] [address] [employer] Exchange Coordinator: Horacio Gan MD Neutrophil (Seg) 84 % High 43.0-80.0 [facility] Comment on above: Performed By: #### C CHANA, CP #### [address] [place] [address] [employer] Exchange Coordinator: Horacio Gan MD RBC morphology finding Nom (Bld) 2+ Normal [facility] Comment on above: Result Comment: ANIS OCYTOSIS 1+ OVALOCYTES 1+ POIKILOCYTOSIS Performed By: #### C CHANA, CP #### [address] [place] [address] [employer] Exchange Coordinator: Horacio Gan MD Erythrocyte distribution width (RBC) [Ratio] 16.5 % High 11.5-15.0 [facility] Comment on above: Performed By: #### Rosalie ZAYAS, CP #### [address] [place] [address] [employer] Exchange Coordinator: Horacio Gan MD Hematocrit (Bld) [Volume fraction] 44.7 % Normal 37.0-54.0 [facility] Comment on above: Performed By: #### Rosalie ZAYAS, CP #### [address] [place] [address] [employer] Exchange Coordinator: Horacio Gan MD Hemoglobin (Bld) [Mass/Vol] 14.6 g/dL Normal 12.5-16.5 [facility] Comment on above: Performed By: #### Rosalie ZAYAS, CP #### [place] [id number] International Exchange Coordinator: Horacio Gan MD MCH (RBC) [Entitic mass] 29.8 pg Normal 26.0-35.0 [facility] Comment on above: Performed By: #### Rosalie ZAYAS, CP #### [address] [address] International Exchange Coordinator: Horacio Gan MD MCHC (RBC) [Mass/Vol] 32.7 g/dL Normal 32.0-34.5 [facility] Comment on above: Performed By: #### C CHANA, CP #### [place] [address] [employer] Exchange Coordinator: Horacio Gan MD MCV (RBC) [Entitic vol] 91.2 fL Normal 80.0-99.9 [facility] Comment on above: Performed By: #### Rosalie ZAYAS, CP #### [place] [address] [employer] Exchange Coordinator: Horacio Gan MD Platelet mean volume (Bld) [Entitic vol] 11.9 fL Normal 7.0-12.0 [facility] Comment on above: Performed By: #### Rosalie ZAYAS, CP #### [place] [address] [employer] Exchange Coordinator: Horacio Gan MD Platelets (Bld) [#/Vol] 213 10*3/uL Normal 130-450 [facility] Comment on above: Performed By: #### Rosalie ZAYAS, CP #### [address] [address] International Exchange Coordinator: Horacio Gan MD RBC (Bld) [#/Vol] 4.90 10*6/uL Normal 3.80-5.80 [facility] Comment on above: Performed By: #### Rosalie HERNANDEZWD, CP #### [address] [place] [address] [employer] Exchange Coordinator: Horacio Gan MD WBC (Bld) [#/Vol] 9.0 10*3/uL Normal 4.5-11.5 [facility] Comment on above: Performed By: #### C CHANA, CP #### [address] [place] [address] [employer] Exchange Coordinator: Horacio Gan MD Comp Metabolic Profon 2023 Albumin [Mass/Vol] 3.3 g/dL Low 3.5-5.2 [facility] Comment on above: Performed By: #### C P, VD25, CBCWD, DIGC #### [address] [place] [address] [employer] Coordinator: Horacio Gan MD Alkaline Phos 98 U/L Normal 40-129 [facility] Comment on above: Performed By: #### C P, VD25, CBCWD, DIGC #### [address] [place] [address] [employer] Exchange Coordinator: Horacio Gan MD ALT [Catalytic activity/Vol] 17 U/L Normal 0-40 [facility] Comment on above: Performed By: #### C P, VD25, CBCWD, DIGC #### [address] [place] [address] [employer] Exchange Coordinator: Horacio Gan MD Anion gap [Moles/Vol] 13 mmol/L Normal 7-16 [facility] Comment on above: Performed By: #### C P, VD25, CBCWD, DIGC #### [address] [place] [address] [employer] Exchange Coordinator: Horacio Gan MD AST [Catalytic activity/Vol] 32 U/L Normal 0-39 [facility] Comment on above: Performed By: #### C P, VD25, CBCWD, DIGC #### [address] [place] [address] [employer] Exchange Coordinator: Horacio Gan MD Bilirubin [Mass/Vol] 0.8 mg/dL Normal 0.0-1.2 [facility] Comment on above: Performed By: #### C P, VD25, CBCWD, DIGC #### [address] [place] [address] [employer] Exchange Coordinator: Horacio Gan MD Calcium [Mass/Vol] 8.7 mg/dL Normal 8.6-10.2 [facility] Comment on above: Performed By: #### C P, VD25, CBCWD, DIGC #### [address] [place] [address] [employer] Exchange Coordinator: Horacio Gan MD Chloride [Moles/Vol] 93 mmol/L Low 98-107 [facility] Comment on above: Performed By: #### C P, VD25, CBCWD, DIGC #### [address] [place] [address] [employer] Exchange Coordinator: Horacio Gan MD CO2 [Moles/Vol] 32 mmol/L High 22-29 [facility] Comment on above: Performed By: #### C P, VD25, CBCWD, DIGC #### [address] [place] [address] [employer] Exchange Coordinator: Horacio Gan MD Creatinine [Mass/Vol] 1.2 mg/dL Normal 0.70-1.20 [facility] Comment on above: Performed By: #### C P, VD25, CBCWD, DIGC #### [address] [place] [address] [employer] Exchange Coordinator: Horacio Gan MD GFR/1.73 sq M.predicted among non-blacks MDRD (S/P/Bld) [Vol rate/Area] mL/min/{1.73_m2} Normal >60 [facility] Comment on above: Result Comment: These results are not intended for use in patients <18 years of age. eGFR results are calculated without a race factor using the 2020 CKD-EPI equation. Careful clinical correlation is recommended, particularly when comparing to results calculated using previous equations. The CKD-EPI equation is less accurate in patients with extremes of muscle mass, extra-renal metabolism of creatine, excessive creatine ingestion, or following therapy that affects renal tubular secretion. Performed By: #### C P, VD25, CBCWD, DIGC #### [address] [place] [address] [employer] Exchange Coordinator: Horacio Gan MD Glucose [Mass/Vol] 87 mg/dL Normal 74-99 [facility] Comment on above: Performed By: #### C P, VD25, CBCWD, DIGC #### [address] [place] [address] [employer] Exchange Coordinator: Horacio Gan MD Potassium [Moles/Vol] 4.5 mmol/L Normal 3.5-5.0 [facility] Comment on above: Performed By: #### C P, VD25, CBCWD, DIGC #### [address] [place] [address] [employer] Exchange Coordinator: Horacio Gan MD Protein [Mass/Vol] 6.6 g/dL Normal 6.4-8.3 [facility] Comment on above: Performed By: #### C P, VD25, CBCWD, DIGC #### [address] [place] [address] [employer] Exchange Coordinator: Horacio Gan MD Sodium [Moles/Vol] 138 mmol/L Normal 132-146 [facility] Comment on above: Performed By: #### C P, VD25, CBCWD, DIGC #### [address] [place] [address] [employer] Exchange Coordinator: Horacio Gan MD Urea nitrogen [Mass/Vol] 28 mg/dL High 6-23 [facility] Comment on above: Performed By: #### C P, VD25, CBCWD, DIGC #### [address] [place] [address] [employer] Exchange Coordinator: Horacio Gan MD Digoxinon 09-17-2023 Digoxin [Mass/Vol] 0.3 ng/mL Low 0.8-2.0 [facility] Comment on above: Performed By: #### C P, VD25, CBCWD, DIGC #### [address] [place] [address] [employer] Exchange Coordinator: Horacio Gan MD Date last dose, [facility] Comment on above: Performed By: #### C P, VD25, CBCWD, DIGC #### [address] [place] [address] [employer] Exchange Coordinator: Horacio Gan MD Dose amount, [facility] Comment on above: Performed By: #### C P, VD25, CBCWD, DIGC #### [address] [place] [address] [employer] Exchange Coordinator: Horacio Gan MD Time last dose, [facility] Comment on above: Performed By: #### C P, VD25, CBCWD, DIGC #### [address] [place] [address] [employer] Exchange Coordinator: Horacio Gan MD Vitamin D 25 OHon 09-17-2023 Vitamin D 25 OH 45.4 ng/mL Normal 30.0-100.0 [facility] Comment on above: Performed By: #### C P, VD25, CBCWD, DIGC #### [address] [place] [address] [employer] Exchange Coordinator: Horacio Gan MD Basic Metabolic Profon 09-14 Anion gap [Moles/Vol] 9 mmol/L Normal 7-16 [facility] Comment on above: Performed By: #### P HO, MG #### [address] [place] [address] [employer] Exchange Coordinator: Horacio Gan MD Calcium [Mass/Vol] 8.4 mg/dL Low 8.6-10.2 [facility] Comment on above: Performed By: #### P HO, MG #### [address] [place] [address] [employer] Exchange Coordinator: Horacio Gan MD Chloride [Moles/Vol] 94 mmol/L Low 98-107 [facility] Comment on above: Performed By: #### P HO, MG #### [address] [place] [address] [employer] Exchange Coordinator: Horacio Gan MD CO2 [Moles/Vol] 32 mmol/L High 22-29 [facility] Comment on above: Performed By: #### P HO, MG #### [address] [place] [address] [employer] Exchange Coordinator: Horacio Gan MD Creatinine [Mass/Vol] 1.1 mg/dL Normal 0.70-1.20 [facility] Comment on above: Performed By: #### P HO, MG #### [address] [address] [employer] Exchange Coordinator: Hoarcio Gan MD GFR/1.73 sq M.predicted among non-blacks MDRD (S/P/Bld) [Vol rate/Area] mL/min/{1.73_m2} Normal >60 [facility] Comment on above: Result Comment: These results are not intended for use in patients <18 years of age. eGFR results are calculated without a race factor using the 2020 CKD-EPI equation. Careful clinical correlation is recommended, particularly when comparing to results calculated using previous equations. The CKD-EPI equation is less accurate in patients with extremes of muscle mass, extra-renal metabolism of creatine, excessive creatine ingestion, or following therapy that affects renal tubular secretion. Performed By: #### P HO, MG #### [address] [address] [employer] Exchange Coordinator: Horacio Gan MD Glucose [Mass/Vol] 75 mg/dL Normal 74-99 [facility] Comment on above: Performed By: #### P HO, MG #### [address] [address] [employer] Exchange Coordinator: Horacio Gan MD Potassium [Moles/Vol] 4.3 mmol/L Normal 3.5-5.0 [facility] Comment on above: Performed By: #### P HO, MG #### [address] [address] [employer] Exchange Coordinator: Horacio Gan MD Sodium [Moles/Vol] 135 mmol/L Normal 132-146 [facility] Comment on above: Performed By: #### P HO, MG #### [address] [address] [employer] Exchange Coordinator: Horacio Gan MD Urea nitrogen [Mass/Vol] 19 mg/dL Normal 6-23 [facility] Comment on above: Performed By: #### P HO, MG #### [address] [place] [address] [employer] Exchange Coordinator: Horacio Gan MD Brain Natri. Peptideon 09-14 Natriuretic peptide B (Bld) [Mass/Vol] 04496 pg/mL High 0-125 [facility] Comment on above: Result Comment: An a ge-independent cutoff point of 300 pg/ml has a 98% negative predictive value excluding acute heart failure. Performed By: #### P HO, MG #### [address] [place] [address] [employer] Exchange Coordinator: Hroacio Gan MD [facility] 09-14-2023 Erythrocyte distribution width (RBC) [Ratio] 15.9 % High 11.5-15.0 [facility] Comment on above: Performed By: #### P HO, MG #### [address] [place] [address] [employer] Exchange Coordinator: Horacio Gan MD Hematocrit (Bld) [Volume fraction] 41.8 % Normal 37.0-54.0 [facility] Comment on above: Performed By: #### P HO, MG #### [address] [place] [address] [employer] Coordinator: Horacio Gan MD Hemoglobin (Bld) [Mass/Vol] 13.6 g/dL Normal 12.5-16.5 [facility] Comment on above: Performed By: #### P HO, MG #### [address] [place] [address] [employer] Exchange Coordinator: Horacio Gan MD MCH (RBC) [Entitic mass] 29.8 pg Normal 26.0-35.0 [facility] Comment on above: Performed By: #### P HO, MG #### [address] [address] [employer] Exchange Coordinator: Horacio Gan MD MCHC (RBC) [Mass/Vol] 32.5 g/dL Normal 32.0-34.5 [facility] Comment on above: Performed By: #### P HO, MG #### [place] [id number] [employer] Coordinator: Horacio Gan MD MCV (RBC) [Entitic vol] 91.7 fL Normal 80.0-99.9 [facility] Comment on above: Performed By: #### P HO, MG #### [place] [address] [employer] Coordinator: Horacio Gan MD Platelet mean volume (Bld) [Entitic vol] 11.4 fL Normal 7.0-12.0 [facility] Comment on above: Performed By: #### P HO, MG #### [place] [address] [employer] Coordinator: Horacio Gan MD Platelets (Bld) [#/Vol] 189 10*3/uL Normal 130-450 [facility] Comment on above: Performed By: #### P HO, MG #### [place] [address] [employer] Coordinator: Horacio Gan MD RBC (Bld) [#/Vol] 4.56 10*6/uL Normal 3.80-5.80 [facility] Comment on above: Performed By: #### P HO, MG #### [address] [place] [address] [employer] Coordinator: Horacio Gan MD WBC (Bld) [#/Vol] 6.9 10*3/uL Normal 4.5-11.5 [facility] Comment on above: Performed By: #### P HO, MG #### [address] [place] [address] International Exchange Coordinator: Horacio Gan MD Magnesiumon 09-14-2023 Magnesium [Mass/Vol] 1.6 mg/dL Normal 1.6-2.6 [facility] Comment on above: Performed By: #### P HO, MG #### [address] [place] [address] International Exchange Coordinator: Horacio Gan MD Phosphorus, Inorg.on 024 Phosphorus, Inorg. 2.6 mg/dL Normal 2.5-4.5 [facility] Comment on above: Performed By: #### P HO, MG #### [address] [place] [address] International Exchange Coordinator: Horacio Gan MD Basic Metabolic Profon 09-13 Anion gap [Moles/Vol] 9 mmol/L Normal 7-16 [facility] Comment on above: Performed By: #### C P, BNP, CBCWD #### [address] [place] [address] International Exchange Coordinator: Horacio Gan MD Calcium [Mass/Vol] 8.4 mg/dL Low 8.6-10.2 [facility] Comment on above: Performed By: #### C P, BNP, CBCWD #### [address] [place] [address] International Exchange Coordinator: Horacio Gan MD Chloride [Moles/Vol] 93 mmol/L Low 98-107 [facility] Comment on above: Performed By: #### C P, BNP, CBCWD #### [address] [place] [address] International Exchange Coordinator: Horacio Gan MD CO2 [Moles/Vol] 29 mmol/L Normal 22-29 [facility] Comment on above: Performed By: #### C P, BNP, CBCWD #### [place] [id number] International Exchange Coordinator: Horacio Gan MD Creatinine [Mass/Vol] 1.0 mg/dL Normal 0.70-1.20 [facility] Comment on above: Performed By: #### C P, BNP, CBCWD #### [place] [address] International Exchange Coordinator: Horacio Gan MD GFR/1.73 sq M.predicted among non-blacks MDRD (S/P/Bld) [Vol rate/Area] mL/min/{1.73_m2} Normal >60 [facility] Comment on above: Result Comment: These results are not intended for use in patients <18 years of age. eGFR results are calculated without a race factor using the 2020 CKD-EPI equation. Careful clinical correlation is recommended, particularly when comparing to results calculated using previous equations. The CKD-EPI equation is less accurate in patients with extremes of muscle mass, extra-renal metabolism of creatine, excessive creatine ingestion, or following therapy that affects renal tubular secretion. Performed By: #### C P, BNP, CBCWD #### [place] [address] International Exchange Coordinator: Horacio Gan MD Glucose [Mass/Vol] 89 mg/dL Normal 74-99 [facility] Comment on above: Performed By: #### C P, BNP, CBCWD #### [place] [address] International Exchange Coordinator: Horacio Gan MD Potassium [Moles/Vol] 4.0 mmol/L Normal 3.5-5.0 [facility] Comment on above: Performed By: #### C P, BNP, CBCWD #### [address] [address] International Exchange Coordinator: Horacio Gan MD Sodium [Moles/Vol] 131 mmol/L Low 132-146 [facility] Comment on above: Performed By: #### C P, BNP, CBCWD #### [address] [address] International Exchange Coordinator: Horacio Gan MD Urea nitrogen [Mass/Vol] 25 mg/dL High 6-23 [facility] Comment on above: Performed By: #### C P, BNP, CBCWD #### [place] [address] International Exchange Coordinator: Horacio Gan MD CBCon 09-13-2023 Erythrocyte distribution width (RBC) [Ratio] 15.9 % High 11.5-15.0 [facility] Comment on above: Performed By: #### C P, BNP, CBCWD #### [place] [address] International Exchange Coordinator: Horacio Gan MD Hematocrit (Bld) [Volume fraction] 40.5 % Normal 37.0-54.0 [facility] Comment on above: Performed By: #### C P, BNP, CBCWD #### [place] [address] International Exchange Coordinator: Horacio Gan MD Hemoglobin (Bld) [Mass/Vol] 12.9 g/dL Normal 12.5-16.5 [facility] Comment on above: Performed By: #### C P, BNP, CBCWD #### [address] [address] International Exchange Coordinator: Horacio Gan MD MCH (RBC) [Entitic mass] 29.5 pg Normal 26.0-35.0 [facility] Comment on above: Performed By: #### C P, BNP, CBCWD #### [address] [address] International Exchange Coordinator: Horacio Gan MD MCHC (RBC) [Mass/Vol] 31.9 g/dL Low 32.0-34.5 [facility] Comment on above: Performed By: #### C P, BNP, CBCWD #### [place] [address] International Exchange Coordinator: Horacio Gan MD MCV (RBC) [Entitic vol] 92.5 fL Normal 80.0-99.9 [facility] Comment on above: Performed By: #### C P, BNP, CBCWD #### [place] [address] International Exchange Coordinator: Horacio Gan MD Platelet mean volume (Bld) [Entitic vol] 11.2 fL Normal 7.0-12.0 [facility] Comment on above: Performed By: #### C P, BNP, CBCWD #### [place] [address] [employer] Exchange Coordinator: Horacio Gan MD Platelets (Bld) [#/Vol] 188 10*3/uL Normal 130-450 [facility] Comment on above: Performed By: #### C P, BNP, CBCWD #### [place] [address] International Exchange Coordinator: Horacio Gan MD RBC (Bld) [#/Vol] 4.38 10*6/uL Normal 3.80-5.80 [facility] Comment on above: Performed By: #### C P, BNP, CBCWD #### [address] [place] [address] International Exchange Coordinator: Horacio Gan MD WBC (Bld) [#/Vol] 7.7 10*3/uL Normal 4.5-11.5 [facility] Comment on above: Performed By: #### C P, BNP, CBCWD #### [address] [place] [address] International Exchange Coordinator: Horacio Gan MD Cortisolon 09-13-2023 Cortisol 14.5 ug/dL Normal 2.7-18.4 [facility] Comment on above: Performed By: #### C P, BNP, CBCWD #### [address] [place] [address] International Exchange Coordinator: Horacio Gan MD Collection Info. Unknown Normal [facility] Comment on above: Performed By: #### C P, BNP, CBCWD #### [address] [place] [address] International Exchange Coordinator: Horacio Gan MD Cult, [facility] 09-13-2023 Cult, Blood Specimen Description .BLOOD Special Requests Culture NO GROWTH 5 DAYS Report Status FINAL 09/13/2023 Normal [facility] Comment on above: Performed By: #### P HO, MG #### [address] [place] [address] International Exchange Coordinator: Horacio Gan MD Cult,[facility] 09-13-2023 Cult,Blood Specimen Description .BLOOD Special Requests Culture NO GROWTH 5 DAYS Report Status FINAL 09/13/2023 [facility] Comment on above: Performed By: #### B C #### [address] [place] [address] International Exchange Coordinator: Horacio Gan MD Magnesiumon 09-13-2023 Magnesium [Mass/Vol] 2.0 mg/dL Normal 1.6-2.6 [facility] Comment on above: Performed By: #### C P, BNP, CBCWD #### [address] [place] [address] International Exchange Coordinator: Horacio Gan MD Phosphorus, Inorg.on 024 Phosphorus, Inorg. 2.4 mg/dL Low 2.5-4.5 [facility] Comment on above: Performed By: #### C P, BNP, CBCWD #### [address] [place] [address] International Exchange Coordinator: Horacio Gan MD Basic Metabolic Profon 09-12 Anion gap [Moles/Vol] 7 mmol/L Normal 7-16 [facility] Comment on above: Performed By: #### C P, BNP, CBCWD #### [address] [place] [address] International Exchange Coordinator: Horacio Gan MD Calcium [Mass/Vol] 8.4 mg/dL Low 8.6-10.2 [facility] Comment on above: Performed By: #### C P, BNP, CBCWD #### [address] [place] [address] International Exchange Coordinator: Horacio Gan MD Chloride [Moles/Vol] 96 mmol/L Low 98-107 [facility] Comment on above: Performed By: #### C P, BNP, CBCWD #### [address] [place] [address] International Exchange Coordinator: Horacio Gan MD CO2 [Moles/Vol] 32 mmol/L High 22-29 [facility] Comment on above: Performed By: #### C P, BNP, CBCWD #### [address] [place] [address] International Exchange Coordinator: Horacio Gan MD Creatinine [Mass/Vol] 1.1 mg/dL Normal 0.70-1.20 [facility] Comment on above: Performed By: #### C P, BNP, CBCWD #### [place] [address] International Exchange Coordinator: Horacio Gan MD GFR/1.73 sq M.predicted among non-blacks MDRD (S/P/Bld) [Vol rate/Area] mL/min/{1.73_m2} Normal >60 [facility] Comment on above: Result Comment: These results are not intended for use in patients <18 years of age. eGFR results are calculated without a race factor using the 2020 CKD-EPI equation. Careful clinical correlation is recommended, particularly when comparing to results calculated using previous equations. The CKD-EPI equation is less accurate in patients with extremes of muscle mass, extra-renal metabolism of creatine, excessive creatine ingestion, or following therapy that affects renal tubular secretion. Performed By: #### C P, BNP, CBCWD #### [place] [address] International Exchange Coordinator: Horacio Gan MD Glucose [Mass/Vol] 85 mg/dL Normal 74-99 [facility] Comment on above: Performed By: #### C P, BNP, CBCWD #### [place] [address] International Exchange Coordinator: Horacio Gan MD Potassium [Moles/Vol] 3.9 mmol/L Normal 3.5-5.0 [facility] Comment on above: Performed By: #### C P, BNP, CBCWD #### [place] [id number] International Exchange Coordinator: Horacio Gan MD Sodium [Moles/Vol] 135 mmol/L Normal 132-146 [facility] Comment on above: Performed By: #### C P, BNP, CBCWD #### [address] [address] International Exchange Coordinator: Horacio Gan MD Urea nitrogen [Mass/Vol] 28 mg/dL High 6-23 [facility] Comment on above: Performed By: #### C P, BNP, CBCWD #### [address] [address] International Exchange Coordinator: Horacio Gan MD Anion gap [Moles/Vol] 10 mmol/L Normal 7-16 [facility] Comment on above: Performed By: #### C P, BNP, CBCWD #### [address] [address] International Exchange Coordinator: Horacio Gan MD Calcium [Mass/Vol] 8.4 mg/dL Low 8.6-10.2 [facility] Comment on above: Performed By: #### C P, BNP, CBCWD #### [address] [address] International Exchange Coordinator: Horacio Gan MD Chloride [Moles/Vol] 96 mmol/L Low 98-107 [facility] Comment on above: Performed By: #### C P, BNP, CBCWD #### [address] [address] International Exchange Coordinator: Horacio Gan MD CO2 [Moles/Vol] 22 mmol/L Normal 22-29 [facility] Comment on above: Performed By: #### C P, BNP, CBCWD #### [address] [address] International Exchange Coordinator: Horacio Gan MD Creatinine [Mass/Vol] 1.1 mg/dL Normal 0.70-1.20 [facility] Comment on above: Performed By: #### C P, BNP, CBCWD #### [place] [address] International Exchange Coordinator: Horacio Gan MD GFR/1.73 sq M.predicted among non-blacks MDRD (S/P/Bld) [Vol rate/Area] mL/min/{1.73_m2} Normal >60 [facility] Comment on above: Result Comment: These results are not intended for use in patients <18 years of age. eGFR results are calculated without a race factor using the 2020 CKD-EPI equation. Careful clinical correlation is recommended, particularly when comparing to results calculated using previous equations. The CKD-EPI equation is less accurate in patients with extremes of muscle mass, extra-renal metabolism of creatine, excessive creatine ingestion, or following therapy that affects renal tubular secretion. Performed By: #### C P, BNP, CBCWD #### [place] [address] International Exchange Coordinator: Horacio Gan MD Glucose [Mass/Vol] 81 mg/dL Normal 74-99 [facility] Comment on above: Performed By: #### C P, BNP, CBCWD #### [place] [address] International Exchange Coordinator: Horacio Gan MD Potassium [Moles/Vol] 5.0 mmol/L Normal 3.5-5.0 [facility] Comment on above: Result Comment: SPEC IMEN MODERATELY HEMOLYZED, RESULTS MAY BE ADVERSELY AFFECTED Performed By: #### C P, BNP, CBCWD #### [address] [address] International Exchange Coordinator: Horacio Gan MD Sodium [Moles/Vol] 128 mmol/L Low 132-146 [facility] Comment on above: Performed By: #### C P, BNP, CBCWD #### [address] [place] [address] International Exchange Coordinator: Horacio Gan MD Urea nitrogen [Mass/Vol] 30 mg/dL High 6-23 [facility] Comment on above: Performed By: #### C P, BNP, CBCWD #### [address] [place] [address] International Exchange Coordinator: Horacio Gan MD CBCon 09-12-2023 Erythrocyte distribution width (RBC) [Ratio] 16.1 % High 11.5-15.0 [facility] Comment on above: Performed By: #### C P, BNP, CBCWD #### [address] [address] International Exchange Coordinator: Horacio Gan MD Hematocrit (Bld) [Volume fraction] 42.2 % Normal 37.0-54.0 [facility] Comment on above: Performed By: #### C P, BNP, CBCWD #### [address] [place] [address] International Exchange Coordinator: Horacio Gan MD Hemoglobin (Bld) [Mass/Vol] 13.2 g/dL Normal 12.5-16.5 [facility] Comment on above: Performed By: #### C P, BNP, CBCWD #### [address] [place] [address] International Exchange Coordinator: Horacio Gan MD MCH (RBC) [Entitic mass] 29.7 pg Normal 26.0-35.0 [facility] Comment on above: Performed By: #### C P, BNP, CBCWD #### [address] [address] International Exchange Coordinator: Horacio Gan MD MCHC (RBC) [Mass/Vol] 31.3 g/dL Low 32.0-34.5 [facility] Comment on above: Performed By: #### C P, BNP, CBCWD #### [address] [place] [address] International Exchange Coordinator: Horacio Gan MD MCV (RBC) [Entitic vol] 95.0 fL Normal 80.0-99.9 [facility] Comment on above: Performed By: #### C P, BNP, CBCWD #### [address] [address] International Exchange Coordinator: Horacio Gan MD Platelet mean volume (Bld) [Entitic vol] 11.6 fL Normal 7.0-12.0 [facility] Comment on above: Performed By: #### C P, BNP, CBCWD #### [address] [address] International Exchange Coordinator: Horacio Gan MD Platelets (Bld) [#/Vol] 196 10*3/uL Normal 130-450 [facility] Comment on above: Performed By: #### C P, BNP, CBCWD #### [address] [address] International Exchange Coordinator: Horacio Gan MD RBC (Bld) [#/Vol] 4.44 10*6/uL Normal 3.80-5.80 [facility] Comment on above: Performed By: #### C P, BNP, CBCWD #### [address] [address] International Exchange Coordinator: Horacio Gan MD WBC (Bld) [#/Vol] 7.1 10*3/uL Normal 4.5-11.5 [facility] Comment on above: Performed By: #### C P, BNP, CBCWD #### [address] [place] [address] International Exchange Coordinator: Horacio Gan MD Magnesiumon 09-12-2023 Magnesium [Mass/Vol] 2.4 mg/dL Normal 1.6-2.6 [facility] Comment on above: Performed By: #### C P, BNP, CBCWD #### [facility] [address] [facility] [place] [address] International Exchange Coordinator: Horacio Gan MD Phosphorus, Inorg.on 024 Phosphorus, Inorg. 3.1 mg/dL Normal 2.5-4.5 [facility] Comment on above: Performed By: #### C P, BNP, CBCWD #### [facility] [address] [facility] [place] [address] International Exchange Coordinator: Horacio Gan MD XR CHEST PORTABLEon 09-12-19 24 XR CHEST PORTABLE EXAMINATION: ONE XRAY VIEW OF THE CHEST 09/12/2023 5:59 pm COMPARISON: Portable chest from yesterday. HISTORY: ORDERING SYSTEM PROVIDED HISTORY: CHF/effusion TECHNOLOGIST PROVIDED HISTORY: Reason for exam:->CHF/effusion What reading provider will be dictating this exam?->CRC FINDINGS: Examination performed in the semi erect position, limiting sensitivity for pleural effusions. There has been improvement in patchy consolidation of the right lower lung, remaining mild, consistent with clearing atelectasis versus pneumonia. Stable mild hazy density throughout the lower lungs There is improving moderate consolidation of the retrocardiac left lower lobe, with continued blurring of the left hemidiaphragm. There is improved hazy density throughout the lower lungs bilaterally, consistent with improved mild bilateral pleural effusions. The heart remains top normal in size. The mediastinum is normal in appearance. The osseous structures are normal in appearance for the patient's age. IMPRESSION: 1. Improved mild hazy right lung base consolidation. 2. Improving moderate consolidation of the retrocardiac left lower lobe. 3. Improved mild bilateral pleural effusions. Interpreted by: Madhav Ozuna MD Signed by: Madhav Ozuna MD 09/12/23 Final result Normal [facility] Comment on above: Order Comment: Reaso n for exam:->CHF/effusionWhat reading provider will be dictating this exam?->CRC Basic Metabolic Profon 09-11 Anion gap [Moles/Vol] 7 mmol/L Normal 7-16 [facility] Comment on above: Performed By: #### P HO, MG #### [address] [address] International Exchange Coordinator: Horacio Gan MD Calcium [Mass/Vol] 8.4 mg/dL Low 8.6-10.2 [facility] Comment on above: Performed By: #### P HO, MG #### [address] [address] International Exchange Coordinator: Horacio Gan MD Chloride [Moles/Vol] 96 mmol/L Low 98-107 [facility] Comment on above: Performed By: #### P HO, MG #### [address] [address] International Exchange Coordinator: Horacio Gan MD CO2 [Moles/Vol] 31 mmol/L High 22-29 [facility] Comment on above: Performed By: #### P HO, MG #### [address] [address] International Exchange Coordinator: Horacio Gan MD Creatinine [Mass/Vol] 1.1 mg/dL Normal 0.70-1.20 [facility] Comment on above: Performed By: #### P HO, MG #### [address] [address] International Exchange Coordinator: Horacio Gan MD GFR/1.73 sq M.predicted among non-blacks MDRD (S/P/Bld) [Vol rate/Area] mL/min/{1.73_m2} Normal >60 [facility] Comment on above: Result Comment: These results are not intended for use in patients <18 years of age. eGFR results are calculated without a race factor using the 2020 CKD-EPI equation. Careful clinical correlation is recommended, particularly when comparing to results calculated using previous equations. The CKD-EPI equation is less accurate in patients with extremes of muscle mass, extra-renal metabolism of creatine, excessive creatine ingestion, or following therapy that affects renal tubular secretion. Performed By: #### P HO, MG #### [address] [address] International Exchange Coordinator: Horacio Gan MD Glucose [Mass/Vol] 78 mg/dL Normal 74-99 [facility] Comment on above: Performed By: #### P HO, MG #### [address] [address] International Exchange Coordinator: Horacio Gan MD Potassium [Moles/Vol] 3.7 mmol/L Normal 3.5-5.0 [facility] Comment on above: Performed By: #### P HO, MG #### [address] [address] International Exchange Coordinator: Horacio Gan MD Sodium [Moles/Vol] 134 mmol/L Normal 132-146 [facility] Comment on above: Performed By: #### P HO, MG #### [address] [address] International Exchange Coordinator: Horacio Gan MD Urea nitrogen [Mass/Vol] 33 mg/dL High 6-23 [facility] Comment on above: Performed By: #### P HO, MG #### [address] [address] International Exchange Coordinator: Horacio Gan MD Brain Natri. Peptideon 09-11 Natriuretic peptide B (Bld) [Mass/Vol] 313[address] pg/mL High 0-125 [facility] Comment on above: Result Comment: An a ge-independent cutoff point of 300 pg/ml has a 98% negative predictive value excluding acute heart failure. Performed By: #### P HO, MG #### [place] [address] International Exchange Coordinator: Horacio Gan MD CBCon 09-11-2023 Erythrocyte distribution width (RBC) [Ratio] 16.1 % High 11.5-15.0 [facility] Comment on above: Performed By: #### C P, BNP, CBCWD #### [place] [address] [employer] Exchange Coordinator: Horacio Gan MD Hematocrit (Bld) [Volume fraction] 34.6 % Low 37.0-54.0 [facility] Comment on above: Performed By: #### C P, BNP, CBCWD #### [place] [address] International Exchange Coordinator: Horacio Gan MD Hemoglobin (Bld) [Mass/Vol] 11.2 g/dL Low 12.5-16.5 [facility] Comment on above: Performed By: #### C P, BNP, CBCWD #### [place] [address] International Exchange Coordinator: Horacio Gan MD MCH (RBC) [Entitic mass] 30.5 pg Normal 26.0-35.0 [facility] Comment on above: Performed By: #### C P, BNP, CBCWD #### [place] [address] International Exchange Coordinator: Horacio Gan MD MCHC (RBC) [Mass/Vol] 32.4 g/dL Normal 32.0-34.5 [facility] Comment on above: Performed By: #### C P, BNP, CBCWD #### [address] [place] [address] International Exchange Coordinator: Horacio Gan MD MCV (RBC) [Entitic vol] 94.3 fL Normal 80.0-99.9 [facility] Comment on above: Performed By: #### C P, BNP, CBCWD #### [address] [place] [address] International Exchange Coordinator: Horacio Gan MD Platelet mean volume (Bld) [Entitic vol] 11.9 fL Normal 7.0-12.0 [facility] Comment on above: Performed By: #### C P, BNP, CBCWD #### [address] [place] [address] International Exchange Coordinator: Horacio Gan MD Platelets (Bld) [#/Vol] 160 10*3/uL Normal 130-450 [facility] Comment on above: Performed By: #### C P, BNP, CBCWD #### [address] [place] [address] International Exchange Coordinator: Horacio Gan MD RBC (Bld) [#/Vol] 3.67 10*6/uL Low 3.80-5.80 [facility] Comment on above: Performed By: #### C P, BNP, CBCWD #### [address] [place] [address] International Exchange Coordinator: Horacio Gan MD WBC (Bld) [#/Vol] 6.7 10*3/uL Normal 4.5-11.5 [facility] Comment on above: Performed By: #### C P, BNP, CBCWD #### [address] [place] [address] International Exchange Coordinator: Horacio Gan MD Magnesiumon 09-11-2023 Magnesium [Mass/Vol] 2.0 mg/dL Normal 1.6-2.6 [facility] Comment on above: Performed By: #### P HO, MG #### [address] [address] International Exchange Coordinator: Horacio Gan MD Phosphorus, Inorg.on 024 Phosphorus, Inorg. 2.5 mg/dL Normal 2.5-4.5 [facility] Comment on above: Performed By: #### P HO, MG #### [address] [id number] International Exchange Coordinator: Horacio Gan MD XR CHEST PORTABLEon 09-11-19 XR CHEST PORTABLE EXAMINATION: ONE XRAY VIEW OF THE CHEST 09/11/2023 7:51 am COMPARISON: 09/08/2023 HISTORY: ORDERING SYSTEM PROVIDED HISTORY: effusion TECHNOLOGIST PROVIDED HISTORY: Reason for exam:->effusion What reading provider will be dictating this exam?->CRC FINDINGS: The lungs are without acute focal process. Bilateral pleural effusions. No pneumothorax. Stable cardiomegaly. The osseous structures are without acute process. IMPRESSION: Bilateral pleural effusions slightly increased compared to prior study. Interpreted by: Donny Alfredo MD Signed by: Donny Alfredo MD 09/11/23 Final result Normal [facility] Comment on above: Order Comment: Reaso n for exam:->effusionWhat reading provider will be dictating this exam?->CRC Basic Metabolic Profon 09-10 Anion gap [Moles/Vol] 9 mmol/L Normal 7-16 [facility] Comment on above: Performed By: #### R DIVING COACH #### [address] [id number] [employer] Coordinator: Horacio Gan MD Calcium [Mass/Vol] 8.2 mg/dL Low 8.6-10.2 [facility] Comment on above: Performed By: #### R DIVING COACH #### [address] [place] [address] International Exchange Coordinator: Horacio Gan MD Chloride [Moles/Vol] 100 mmol/L Normal 98-107 [facility] Comment on above: Performed By: #### R DIVING COACH #### [address] [place] [address] [employer] Exchange Coordinator: Horacio Gan MD CO2 [Moles/Vol] 26 mmol/L Normal 22-29 [facility] Comment on above: Performed By: #### R DIVING COACH #### [address] [place] [address] International Exchange Coordinator: Horacio Gan MD Creatinine [Mass/Vol] 1.3 mg/dL High 0.70-1.20 [facility] Comment on above: Performed By: #### R DIVING COACH #### [address] [place] [address] International Exchange Coordinator: Horacio Gan MD GFR/1.73 sq M.predicted among non-blacks MDRD (S/P/Bld) [Vol rate/Area] 58 mL/min/{1.73_m2} Low >60 [facility] Comment on above: Result Comment: These results are not intended for use in patients <18 years of age. eGFR results are calculated without a race factor using the 2020 CKD-EPI equation. Careful clinical correlation is recommended, particularly when comparing to results calculated using previous equations. The CKD-EPI equation is less accurate in patients with extremes of muscle mass, extra-renal metabolism of creatine, excessive creatine ingestion, or following therapy that affects renal tubular secretion. Performed By: #### R DIVING COACH #### [address] [address] International Exchange Coordinator: Horacio Gan MD Glucose [Mass/Vol] 99 mg/dL Normal 74-99 [facility] Comment on above: Performed By: #### R DIVING COACH #### [address] [address] International Exchange Coordinator: Horacio Gan MD Potassium [Moles/Vol] 4.1 mmol/L Normal 3.5-5.0 [facility] Comment on above: Performed By: #### R DIVING COACH #### [address] [address] International Exchange Coordinator: Horacio Gan MD Sodium [Moles/Vol] 135 mmol/L Normal 132-146 [facility] Comment on above: Performed By: #### R DIVING COACH #### [address] [address] International Exchange Coordinator: Horacio Gan MD Urea nitrogen [Mass/Vol] 47 mg/dL High 6-23 [facility] Comment on above: Performed By: #### R DIVING COACH #### [address] [address] International Exchange Coordinator: Horacio Gan MD CBCon 09-10-2023 Erythrocyte distribution width (RBC) [Ratio] 16.3 % High 11.5-15.0 [facility] Comment on above: Performed By: #### R DIVING COACH #### [place] [address] International Exchange Coordinator: Horacio Gan MD Hematocrit (Bld) [Volume fraction] 40.0 % Normal 37.0-54.0 [facility] Comment on above: Performed By: #### R DIVING COACH #### [address] [address] International Exchange Coordinator: Horacio Gan MD Hemoglobin (Bld) [Mass/Vol] 12.8 g/dL Normal 12.5-16.5 [facility] Comment on above: Performed By: #### R DIVING COACH #### [address] [address] International Exchange Coordinator: Horacio Gan MD MCH (RBC) [Entitic mass] 30.6 pg Normal 26.0-35.0 [facility] Comment on above: Performed By: #### R DIVING COACH #### [place] [id number] International Exchange Coordinator: Horacio Gan MD MCHC (RBC) [Mass/Vol] 32.0 g/dL Normal 32.0-34.5 [facility] Comment on above: Performed By: #### R DIVING COACH #### [place] [address] International Exchange Coordinator: Horacio Gan MD MCV (RBC) [Entitic vol] 95.7 fL Normal 80.0-99.9 [facility] Comment on above: Performed By: #### R DIVING COACH #### [place] [address] International Exchange Coordinator: Horacio Gan MD Platelet mean volume (Bld) [Entitic vol] 11.9 fL Normal 7.0-12.0 [facility] Comment on above: Performed By: #### R DIVING COACH #### [place] [address] International Exchange Coordinator: Horacio Gan MD Platelets (Bld) [#/Vol] 216 10*3/uL Normal 130-450 [facility] Comment on above: Performed By: #### R DIVING COACH #### [address] [address] International Exchange Coordinator: Horacio Gan MD RBC (Bld) [#/Vol] 4.18 10*6/uL Normal 3.80-5.80 [facility] Comment on above: Performed By: #### R DIVING COACH #### [facility] [address] [facility] [place] [address] International Exchange Coordinator: Horacio Gan MD WBC (Bld) [#/Vol] 7.2 10*3/uL Normal 4.5-11.5 [facility] Comment on above: Performed By: #### R DIVING COACH #### [facility] [address] [place] [address] International Exchange Coordinator: Horacio Gan MD ECHO (TTE) COMPLETE W/ BUBBL E STUDYon 09-10-2023 ECHO (TTE) COMPLETE W/ BUBBLE STUDY ?? Left??Ventricle function. ?? Right??Ventricle ?? Aortic??Valve ?? Mitral??Valve ?? Tricuspid??Valve ?? Left??Atrium ?? Interatrial??Septum ?? Right??Atrium ?? Pericardium ?? Image quality is adequate. Left Ventricle Severely reduced left ventricular systolic function with a visually estimated EF of 15 - 20%. Left ventricle size is normal. Findings consistent with moderate concentric hypertrophy. Severe global hypokinesis present. Normal diastolic function. Right Ventricle Right ventricle size is normal. Severely reduced systolic function. Left Atrium Left atrium is mildly dilated. Right Atrium Right atrium is moderately dilated. IVC/SVC IVC diameter is greater than 21 mm and decreases less than 50% during inspiration Mitral Valve Valve structure is normal. Moderate regurgitation with a centrally directed jet. No stenosis noted. Tricuspid Valve Valve structure is normal. No regurgitation. No stenosis noted. Unable to assess RVSP. Est RA pressure is elevated at 15 mmHg. Aortic Valve Valve structure is normal. Mild regurgitation. No stenosis. Pulmonic Valve Valve structure is normal. Mild to moderate regurgitation. No stenosis noted. Ascending Aorta Normal sized aortic root and ascending aorta. Pericardium Small (<1 cm) pericardial effusion present. No indication of cardiac tamponade. Septum Agitated saline study was negative with and without provocation. Study Details Image quality 2 d echo completed along with a bubble study done by the merlene DUEÑAS Normal [facility] Comment on above: Order Comment: Crite stevenson for performing Bubble Study include Magnesiumon 09-10-2023 Magnesium [Mass/Vol] 2.2 mg/dL Normal 1.6-2.6 [facility] Comment on above: Performed By: #### U RTPRT #### [address] [place] [id number] International Exchange Coordinator: Horacio Gan MD Phosphorus, Inorg.on 024 Phosphorus, Inorg. 2.9 mg/dL Normal 2.5-4.5 [facility] Comment on above: Performed By: #### U RTPRT #### [address] [place] [address] International Exchange Coordinator: Horacio Gan MD Procalcitoninon 09-10-2023 Procalcitonin 0.16 ng/mL High 0.00-0.08 [facility] Comment on above: Performed By: #### C P, BNP, CBCWD #### [address] [place] [address] International Exchange Coordinator: Horacio Gan MD Thyroxine, Freeon 09-10-2023 Thyroxine, Free 1.3 ng/dL Normal 0.9-1.7 [facility] Comment on above: Performed By: #### C P, BNP, CBCWD #### [address] [place] [address] International Exchange Coordinator: Horacio Gan MD Ammoniaon 09-09-2023 Ammonia (P) [Moles/Vol] 18 umol/L Normal 16.0-60.0 [facility] Comment on above: Performed By: #### U RTPRT #### [address] [place] [address] International Exchange Coordinator: Horacio Gan MD CT ABDOMEN PELVIS WO CONTRAS Ton 09-09-2023 CT ABDOMEN PELVIS WO CONTRAST EXAMINATION: CT OF THE ABDOMEN AND PELVIS WITHOUT CONTRAST 09/09/2023 8:01 am TECHNIQUE: CT of the abdomen and pelvis was performed without the administration of intravenous contrast. Multiplanar reformatted images are provided for review. Automated exposure control, iterative reconstruction, and/or weight based adjustment of the mA/kV was utilized to reduce the radiation dose to as low as reasonably achievable. COMPARISON: None. HISTORY: ORDERING SYSTEM PROVIDED HISTORY: ams TECHNOLOGIST PROVIDED HISTORY: Reason for exam:->ams Additional Contrast?->None What reading provider will be dictating this exam?->CRC FINDINGS: Lower Chest: There is a large right and moderate left pleural effusion with adjacent compressive atelectasis present. There are advanced coronary artery calcifications. A small pericardial fluid is observed Organs: The liver appears dense suggest signs of steatosis. There are no signs of a discrete mass or duct dilation. There is beading along the margins of the liver concerning for early cirrhotic change. The gallbladder appears unremarkable without obvious stones or wall thickening. The pancreas, spleen and adrenal glands appear within the normal range. Each kidney appears normal in size shape and position without stones or hydronephrosis. GI/Bowel: There is a sliding-type hiatus hernia present. The stomach appears decompressed. The small bowel pattern is nonobstructive the region of the appendix cecum and terminal ileum appears within the normal range. There are diverticula of the colon but no signs of diverticulitis. Pelvis: The urinary bladder reveals a rounded contour without focal wall thickening. The prostate gland does not appear enlarged. There are no signs of significant lymphadenopathy or ascites within the pelvis Peritoneum/Retroperitoneu m: There are no signs of retroperitoneal lymphadenopathy or aneurysm. There is a small volume of ascites the ascites surrounding the spleen, liver as well as along the paracolic gutters. There is a small volume of ascites within the pelvis involving the presacral space and adjacent to the urinary bladder. Bones/Soft Tissues: There is significant stranding of the subcutaneous tissues of the abdominal wall and pelvis and this can be associated with hypoproteinemia IMPRESSION: 1. Large right and moderate left pleural effusions with adjacent compressive atelectasis. 2. Small volume of ascites. 3. Dense appearance of the liver with beading along the margins concerning for early cirrhotic change. 4. Diverticulosis but no signs of diverticulitis. 5. Significant stranding of the subcutaneous tissues of the abdominal wall and pelvis can be associated with hypoproteinemia. 6. Small pericardial effusion. 7. Advanced coronary artery calcifications. Interpreted by: Norm Marquez MD Signed by: Norm Marquez MD 09/09/23 Final result Normal [facility] Comment on above: Order Comment: Reaso n for exam:->amsAdditional Contrast?->NoneWhat reading provider will be dictating this exam?->CRC Cult,Urineon 09-09-2023 Cult,Urine Specimen Description .URINE,STRAIGHT CATHETER Culture NO GROWTH Report Status FINAL 09/09/2023 Normal [facility] Comment on above: Performed By: #### U RTPRT #### [address] [place] [address] International Exchange Coordinator: Horacio Gan MD Magnesiumon 09-09-2023 Magnesium [Mass/Vol] 2.5 mg/dL Normal 1.6-2.6 [facility] Comment on above: Performed By: #### P HO, MG #### [address] [place] [address] International Exchange Coordinator: Horacio Gan MD Phosphorus, Inorg.on 024 Phosphorus, Inorg. 4.4 mg/dL Normal 2.5-4.5 [facility] Comment on above: Performed By: #### P HO, MG #### [address] [place] [address] International Exchange Coordinator: Horacio Gan MD Brain Natri. Peptideon 09-08 Pro-BNP >71457 High 0-125 [facility] Comment on above: Result Comment: An a ge-independent cutoff point of 300 pg/ml has a 98% negative predictive value excluding acute heart failure. Performed By: #### P HO, MG #### [address] [place] [address] International Exchange Coordinator: Horacio Gan MD BNP Interpretation Unable to perform testing: Specimen hemolyzed. Normal [facility] Comment on above: Result Comment: PRITI MCLAUGHLIN RN @1228 09/08/23 Performed By: #### B C #### [address] [address] International Exchange Coordinator: Horacio Gan MD Pro-BNP Unable to perform testing: Specimen hemolyzed. Normal <300 [facility] Comment on above: Result Comment: PRITI BRUNILDA MCLAUGHLIN RN @1228 09/08/23 Performed By: #### B C #### [place] [address] International Exchange Coordinator: Horacio Gan MD CBC with Diffon 09-08-2023 RBC morphology finding Nom (Bld) 1+ Normal [facility] Comment on above: Result Comment: ANIS OCYTOSIS 2+ [place] CELLS 2+ POIKILOCYTOSIS 1+ POLYCHROMASIA Performed By: #### E DTOX, CBCWD #### [address] [address] International Exchange Coordinator: Horacio Gan MD Abs. Basophil 0.01 k/uL Normal 0.00-0.20 [facility] Comment on above: Performed By: #### E DTOX, CBCWD #### [address] [address] International Exchange Coordinator: Horacio Gan MD Abs.Imm.Granulocyte 0.03 k/uL Normal 0.00-0.58 [facility] Comment on above: Performed By: #### E DTOX, CBCWD #### [address] [address] International Exchange Coordinator: Horacio Gan MD Abs.Neutrophil (Seg) 5.98 k/uL Normal 1.80-7.30 [facility] Comment on above: Performed By: #### E DTOX, CBCWD #### [address] [place] [address] International Exchange Coordinator: Horacio Gan MD Basophils/100 WBC (Bld) 0 % Normal 0.0-2.0 [facility] Comment on above: Performed By: #### E DTOX, CBCWD #### [address] [place] [address] International Exchange Coordinator: Horacio Gan MD Eosinophils (Bld) [#/Vol] 0.00 10*3/uL Low 0.05-0.50 [facility] Comment on above: Performed By: #### E DTOX, CBCWD #### [place] [address] International Exchange Coordinator: Horacio Gan MD Eosinophils/100 WBC (Bld) 0 % Normal 0-6 [facility] Comment on above: Performed By: #### E DTOX, CBCWD #### [address] [place] [address] International Exchange Coordinator: Horacio Gan MD Immature granulocytes/100 WBC (Bld) 0 % Normal 0.0-5.0 [facility] Comment on above: Performed By: #### E DTOX, CBCWD #### [address] [place] [address] International Exchange Coordinator: Horacio Gan MD Lymphocytes (Bld) [#/Vol] 0.39 10*3/uL Low 1.50-4.00 [facility] Comment on above: Performed By: #### E DTOX, CBCWD #### [address] [place] [address] International Exchange Coordinator: Horacio Gan MD Lymphocytes/100 WBC (Bld) 6 % Low 20.0-42.0 [facility] Comment on above: Performed By: #### E DTOX, CBCWD #### [place] [address] International Exchange Coordinator: Horacio Gan MD Monocytes (Bld) [#/Vol] 0.53 10*3/uL Normal 0.10-0.95 [facility] Comment on above: Performed By: #### E DTOX, CBCWD #### [place] [address] International Exchange Coordinator: Horacio Gan MD Monocytes/100 WBC (Bld) 8 % Normal 2.0-12.0 [facility] Comment on above: Performed By: #### E DTOX, CBCWD #### [place] [address] International Exchange Coordinator: Horacio Gan MD Neutrophil (Seg) 86 % High 43.0-80.0 [facility] Comment on above: Performed By: #### E DTOX, CBCWD #### [place] [address] International Exchange Coordinator: Horacio Gan MD Erythrocyte distribution width (RBC) [Ratio] 16.8 % High 11.5-15.0 [facility] Comment on above: Performed By: #### E DTOX, CBCWD #### [place] [address] International Exchange Coordinator: Horacio Gan MD Hematocrit (Bld) [Volume fraction] 49.1 % Normal 37.0-54.0 [facility] Comment on above: Performed By: #### E DTOX, CBCWD #### [place] [address] International Exchange Coordinator: Horacio Gan MD Hemoglobin (Bld) [Mass/Vol] 15.9 g/dL Normal 12.5-16.5 [facility] Comment on above: Performed By: #### E DTOX, CBCWD #### [address] [place] [address] International Exchange Coordinator: Horacio Gan MD MCH (RBC) [Entitic mass] 31.0 pg Normal 26.0-35.0 [facility] Comment on above: Performed By: #### E DTOX, CBCWD #### [place] [address] International Exchange Coordinator: Horacio Gan MD MCHC (RBC) [Mass/Vol] 32.4 g/dL Normal 32.0-34.5 [facility] Comment on above: Performed By: #### E DTOX, CBCWD #### [address] [place] [address] International Exchange Coordinator: Horacio Gan MD MCV (RBC) [Entitic vol] 95.7 fL Normal 80.0-99.9 [facility] Comment on above: Performed By: #### E DTOX, CBCWD #### [place] [address] International Exchange Coordinator: Horacio Gan MD Platelet mean volume (Bld) [Entitic vol] 12.5 fL High 7.0-12.0 [facility] Comment on above: Performed By: #### E DTOX, CBCWD #### [place] [address] International Exchange Coordinator: Horacio Gan MD Platelets (Bld) [#/Vol] 233 10*3/uL Normal 130-450 [facility] Comment on above: Performed By: #### E DTOX, CBCWD #### [address] [address] International Exchange Coordinator: Horacio Gan MD RBC (Bld) [#/Vol] 5.13 10*6/uL Normal 3.80-5.80 [facility] Comment on above: Performed By: #### E DTOX, CBCWD #### [facility] [address] [facility] [place] [address] International Exchange Coordinator: Horacio Gan MD WBC (Bld) [#/Vol] 6.9 10*3/uL Normal 4.5-11.5 [facility] Comment on above: Performed By: #### E DTOX, CBCWD #### [facility] [address] [facility] [place] [address] International Exchange Coordinator: Horacio Gan MD CT CHEST WO CONTRASTon 09-08 CT CHEST WO CONTRAST EXAMINATION: CT OF THE CHEST WITHOUT CONTRAST 09/08/2023 1:40 pm TECHNIQUE: CT of the chest was performed without the administration of intravenous contrast. Multiplanar reformatted images are provided for review. Automated exposure control, iterative reconstruction, and/or weight based adjustment of the mA/kV was utilized to reduce the radiation dose to as low as reasonably achievable. COMPARISON: None. HISTORY: ORDERING SYSTEM PROVIDED HISTORY: cough TECHNOLOGIST PROVIDED HISTORY: Reason for exam:->cough Decision Support Exception - unselect if not a suspected or confirmed emergency medical condition->Emergency Medical Condition (MA) What reading provider will be dictating this exam?->CRC FINDINGS: Mediastinum: Thyroid is homogeneous in attenuation. Reactive mediastinal adenopathy. Central airways are patent. Esophagus with normal course and caliber. Cardiac size enlarged four-chamber cardiomegaly with trace pericardial effusion. Lungs/pleura: Large right and moderate to large left pleural effusions with adjacent atelectasis. No separate consolidation nodule or mass. Upper Abdomen: Visualized portions of the upper abdomen unremarkable. Soft Tissues/Bones: No acute osseous or soft tissue findings. No aggressive osseous lesion. IMPRESSION: 1. Large right and moderate to large left pleural effusions with adjacent atelectasis. 2. Cardiomegaly with trace pericardial effusion. 3. Reactive mediastinal adenopathy. Interpreted by: Higinio Jiménez DO Signed by: Higinio Jiménez DO 09/08/23 Final result Normal [facility] Comment on above: Order Comment: Reaso n for exam:->coughDecision Support Exception - unselect if not a suspected or confirmed emergency medical condition->Emergency Medical Condition (MA)What reading provider will be dictating this exam?->CRC CT HEAD WO CONTRASTon 2023 CT HEAD WO CONTRAST EXAMINATION: CT OF THE HEAD WITHOUT CONTRAST 09/08/2023 1:40 pm TECHNIQUE: CT of the head was performed without the administration of intravenous contrast. Automated exposure control, iterative reconstruction, and/or weight based adjustment of the mA/kV was utilized to reduce the radiation dose to as low as reasonably achievable. COMPARISON: None. HISTORY: ORDERING SYSTEM PROVIDED HISTORY: ams TECHNOLOGIST PROVIDED HISTORY: Has a code stroke or stroke alert been called?->No Reason for exam:->ams Decision Support Exception - unselect if not a suspected or confirmed emergency medical condition->Emergency Medical Condition (MA) What reading provider will be dictating this exam?->CRC FINDINGS: BRAIN/VENTRICLES: There is no acute intracranial hemorrhage, mass effect or midline shift. No abnormal extra-axial fluid collection. The boo-white differentiation is maintained without evidence of an acute infarct. There is no evidence of hydrocephalus. ORBITS: The visualized portion of the orbits demonstrate no acute abnormality. SINUSES: The visualized paranasal sinuses and mastoid air cells demonstrate no acute abnormality. SOFT TISSUES/SKULL: No acute abnormality of the visualized skull or soft tissues. IMPRESSION: No acute intracranial abnormality. Interpreted by: Buzz Mancilla MD Signed by: Buzz Mancilla MD 09/08/23 Final result Normal [facility] Comment on above: Order Comment: Has a code stroke or stroke alert been called?->NoReason for exam:->amsDecision Support Exception - unselect if not a suspected or confirmed emergency medical condition->Emergency Medical Condition (MA)What reading provider will be dictating this exam?->CRC Comp Metabolic Profon 2023 Albumin [Mass/Vol] 3.5 g/dL Normal 3.5-5.2 [facility] Comment on above: Performed By: #### B C #### [facility] [address] [place] [address] International Exchange Coordinator: Horacio aGn MD Alkaline Phos 113 U/L Normal 40-129 [facility] Comment on above: Performed By: #### B C #### [facility] [address] [place] [address] International Exchange Coordinator: Horacio Gan MD ALT [Catalytic activity/Vol] 25 U/L Normal 0-40 [facility] Comment on above: Performed By: #### B C #### [place] [address] [place] [address] International Exchange Coordinator: Horacio Gan MD Anion gap [Moles/Vol] 12 mmol/L Normal 7-16 [facility] Comment on above: Performed By: #### B C #### [place] [address] [place] [address] International Exchange Coordinator: Horacio Gan MD AST [Catalytic activity/Vol] 27 U/L Normal 0-39 [facility] Comment on above: Performed By: #### B C #### [place] [address] [place] [address] International Exchange Coordinator: Horacio Gan MD Bilirubin [Mass/Vol] 0.6 mg/dL Normal 0.0-1.2 [facility] Comment on above: Performed By: #### B C #### [facility] [address] [place] [address] International Exchange Coordinator: Horacio Gan MD Calcium [Mass/Vol] 9.3 mg/dL Normal 8.6-10.2 [facility] Comment on above: Performed By: #### B C #### [place] [address] [place] [address] International Exchange Coordinator: Horacio Gan MD Chloride [Moles/Vol] 103 mmol/L Normal 98-107 [facility] Comment on above: Performed By: #### B C #### [address] [address] International Exchange Coordinator: Horacio Gan MD CO2 [Moles/Vol] 25 mmol/L Normal 22-29 [facility] Comment on above: Performed By: #### B C #### [address] [address] International Exchange Coordinator: Horacio Gan MD Creatinine [Mass/Vol] 2.1 mg/dL High 0.70-1.20 [facility] Comment on above: Performed By: #### B C #### [address] [address] International Exchange Coordinator: Horacio Gan MD GFR/1.73 sq M.predicted among non-blacks MDRD (S/P/Bld) [Vol rate/Area] 35 mL/min/{1.73_m2} Low >60 [facility] Comment on above: Result Comment: These results are not intended for use in patients <18 years of age. eGFR results are calculated without a race factor using the 2020 CKD-EPI equation. Careful clinical correlation is recommended, particularly when comparing to results calculated using previous equations. The CKD-EPI equation is less accurate in patients with extremes of muscle mass, extra-renal metabolism of creatine, excessive creatine ingestion, or following therapy that affects renal tubular secretion. Performed By: #### B C #### [address] [place] [address] International Exchange Coordinator: Horacio Gan MD Glucose [Mass/Vol] 89 mg/dL Normal 74-99 [facility] Comment on above: Performed By: #### B C #### [address] [place] [address] International Exchange Coordinator: Horacio Gan MD Potassium [Moles/Vol] 5.1 mmol/L High 3.5-5.0 [facility] Comment on above: Performed By: #### B C #### [address] [place] [address] International Exchange Coordinator: Horacio Gan MD Protein [Mass/Vol] 6.5 g/dL Normal 6.4-8.3 [facility] Comment on above: Performed By: #### B C #### [address] [address] International Exchange Coordinator: Horacio Gan MD Sodium [Moles/Vol] 140 mmol/L Normal 132-146 [facility] Comment on above: Performed By: #### B C #### [address] [address] International Exchange Coordinator: Horacio Gan MD Urea nitrogen [Mass/Vol] 67 mg/dL High 6-23 [facility] Comment on above: Performed By: #### B C #### [address] [address] International Exchange Coordinator: Horacio Gan MD Albumin Unable to perform testing: Specimen hemolyzed. Normal 3.5-5.2 [facility] Comment on above: Result Comment: PRITI MCLAUGHLIN RN @1228 09/08/23 Performed By: #### B C #### [address] [address] International Exchange Coordinator: Horacio Gan MD Albumin/Glob Ratio Unable to perform testing: Specimen hemolyzed. Normal 1.0-2.5 [facility] Comment on above: Result Comment: PRITI MCLAUGHLIN RN @1228 09/08/23 Performed By: #### B C #### [facility] [address] [place] [address] International Exchange Coordinator: Horacio Gan MD Alkaline Phos Unable to perform testing: Specimen hemolyzed. Normal 40-129 [facility] Comment on above: Result Comment: PRITI MCLAUGHLIN RN @1228 09/08/23 Performed By: #### B C #### [facility] [address] [place] [address] International Exchange Coordinator: Horacio Gan MD ALT Unable to perform testing: Specimen hemolyzed. Normal 5-41 [facility] Comment on above: Result Comment: PRITI MCLAUGHLIN RN @1228 09/08/23 Performed By: #### B C #### [facility] [address] [place] [address] International Exchange Coordinator: Horacio Gan MD Anion Gap Unable to perform testing: Specimen hemolyzed. Normal 9-17 [facility] Comment on above: Result Comment: PRITI SOTORUDI MCLAUGHLIN RN @1228 09/08/23 Performed By: #### B C #### [facility] [address] [place] [address] International Exchange Coordinator: Horacio Gan MD AST Unable to perform testing: Specimen hemolyzed. Normal <40 [facility] Comment on above: Result Comment: PRITI MCLAUGHLIN RN @1228 09/08/23 Performed By: #### B C #### [facility] [address] [place] [address] International Exchange Coordinator: Horacio Gan MD Bilirubin, Total Unable to perform testing: Specimen hemolyzed. Normal 0.3-1.2 [facility] Comment on above: Result Comment: PRITI BRUNILDA MCLAUGHLIN RN @1228 09/08/23 Performed By: #### B C #### [facility] [address] [place] [address] International Exchange Coordinator: Horacio Gan MD BUN (Urea N) Unable to perform testing: Specimen hemolyzed. Normal 8-23 [facility] Comment on above: Result Comment: PRITI MCLAUGHLIN RN @1228 09/08/23 Performed By: #### B C #### [facility] [address] [place] [address] International Exchange Coordinator: Horacio Gan MD BUN/CRE Ratio Unable to perform testing: Specimen hemolyzed. Normal 9-20 [facility] Comment on above: Result Comment: PRITI SOTORUDI MCLAUGHLIN RN @1228 09/08/23 Performed By: #### B C #### [facility] [address] [place] [address] International Exchange Coordinator: Horacio Gan MD Calcium Unable to perform testing: Specimen hemolyzed. Normal 8.6-10.4 [facility] Comment on above: Result Comment: PRITI SOTORUDI MCLAUGHLIN RN @1228 09/08/23 Performed By: #### B C #### [facility] [address] [place] [address] International Exchange Coordinator: Horacio Gan MD Chloride Unable to perform testing: Specimen hemolyzed. Normal 98-107 [facility] Comment on above: Result Comment: PRITI SOTORUDI MCLAUGHLIN RN @1228 09/08/23 Performed By: #### B C #### [facility] [address] [place] [address] International Exchange Coordinator: Horacio Gan MD CO2 Unable to perform testing: Specimen hemolyzed. Normal 20-31 [facility] Comment on above: Result Comment: PRITI MCLAUGHLIN RN @1228 09/08/23 Performed By: #### B C #### [facility] [address] [place] [address] International Exchange Coordinator: Horacio Gan MD Creatinine Unable to perform testing: Specimen hemolyzed. Normal 0.7-1.2 [facility] Comment on above: Result Comment: PRITI MCLAUGHLIN RN @1228 09/08/23 Performed By: #### B C #### [address] [place] [address] International Exchange Coordinator: Horacio Gan MD eGFR Unable to perform testing: Specimen hemolyzed. Normal >60 [facility] Comment on above: Result Comment: PRITI MCLAUGHLIN RN @1228 09/08/23 Performed By: #### B C #### [address] [place] [address] International Exchange Coordinator: Horacio Gan MD Glucose Unable to perform testing: Specimen hemolyzed. Normal 70-99 [facility] Comment on above: Result Comment: PRITI MCLAUGHLIN RN @122 09/08/23 Performed By: #### B C #### [address] [place] [address] International Exchange Coordinator: Horacio Gan MD K (Potassium) Unable to perform testing: Specimen hemolyzed. Normal 3.7-5.3 [facility] Comment on above: Result Comment: PRITI MCLAUGHLIN RN @1228 09/08/23 Performed By: #### B C #### [address] [place] [address] International Exchange Coordinator: Horacio Gan MD NA (Sodium) Unable to perform testing: Specimen hemolyzed. Normal 135-144 [facility] Comment on above: Result Comment: PRITI MCLAUGHLIN RN @1228 09/08/23 Performed By: #### B C #### [address] [place] [address] International Exchange Coordinator: Horacio Gan MD Protein, Total Unable to perform testing: Specimen hemolyzed. Normal 6.4-8.3 [facility] Comment on above: Result Comment: PRITI MCLAUGHLIN RN @1228 09/08/23 Performed By: #### B C #### [address] [place] [address] International Exchange Coordinator: Horacio Gan MD Creatinine,Random Uron 09-08 Creatinine [Mass/Vol] 159.6 mg/dL Normal 40.0-278.[address] [facility] Comment on above: Performed By: #### B C #### [address] [address] International Exchange Coordinator: Horacio Gan MD Drug Scr, Abuse, Uron 2023 Amphetamine(s),Ur Negative Normal NEG [facility] Comment on above: Result Comment: Cuto ff: 1000 ng/mL Performed By: #### B C #### [address] [address] International Exchange Coordinator: Horacio Gan MD Barbiturate(s),Ur Negative Normal NEG [facility] Comment on above: Result Comment: Cuto ff: 200 ng/ml Performed By: #### B C #### [address] [address] International Exchange Coordinator: Horacio Gan MD Benzodiazepine(s) Positive Abnormal NEG [facility] Comment on above: Result Comment: Cuto ff: 200 ng/ml Performed By: #### B C #### [address] [address] International Exchange Coordinator: Horacio Gan MD Cannabinoid(s),Ur Positive Abnormal NEG [facility] Comment on above: Result Comment: Cuto ff: 50 ng/ml Performed By: #### B C #### [address] [address] International Exchange Coordinator: Horacio Gan MD Cocaine Metabolite Negative Normal NEG [facility] Comment on above: Result Comment: Cuto ff: 300 ng/ml Performed By: #### B C #### [address] [place] [address] International Exchange Coordinator: Horacio Gan MD Fentanyl, Urine Negative Normal NEG [facility] Comment on above: Result Comment: Cuto ff: 1.0 ng/ml Performed By: #### B C #### [address] [place] [address] International Exchange Coordinator: Horacio Gan MD Interpretive Info These drug screen re sults are for medical purposes only and should not be Normal [facility] Comment on above: Result Comment: cons idered definitive or confirmed. The drug methodology concentration value must be greater than or equal to the cutoff to be reported as positive. Confirmtory testing orders and/or interpretive sceening questions can be directed to toxicology at [phone]. The absence of expected drug(s) and/or metabolite(s) may be due to inappropriate timing of specimen collection relative to drug administration, poor drug absorption, diluted/adulterated urine, or limitations of screening methodology. Performed By: #### B C #### [address] [place] [address] International Exchange Coordinator: Horacio Gan MD Methadone Ql (U) Negative Normal NEG [facility] Comment on above: Result Comment: Cuto ff: 300 ng/ml Performed By: #### B C #### [address] [place] [address] International Exchange Coordinator: Horacio Gan MD Opiate(s), Ur Negative Normal NEG [facility] Comment on above: Result Comment: Cuto ff: 300 ng/ml Note: The Opiate screen is not intended to detect Oxycodone. Performed By: #### B C #### [address] [place] [address] International Exchange Coordinator: Horacio Gan MD Oxycodone, Urine Negative Normal NEG [facility] Comment on above: Result Comment: Cuto ff: 100 ng/ml Performed By: #### B C #### [address] [place] [address] International Exchange Coordinator: Horacio Gan MD Phencyclidine, Ur Negative Normal NEG [facility] Comment on above: Result Comment: Cuto ff: 25 ng/ml Performed By: #### B C #### [address] [address] International Exchange Coordinator: Horacio Gan MD Influenza A and Bon 09-08-19 Influenza A by MOL Not detected Normal [facility] Comment on above: Result Comment: Meth odology: Isothermal Nucleic Acid Amplification Performed By: #### P HO, MG #### [address] [place] [address] International Exchange Coordinator: Horacio Gan MD Influenza B by MOL Not detected Normal [facility] Comment on above: Result Comment: Meth odology: Isothermal Nucleic Acid Amplification Performed By: #### P HO, MG #### [address] [place] [address] International Exchange Coordinator: Horacio Gan MD Lactate, Sepsison 09-08-2023 Lactic Acid, Sepsis 2.5 mmol/L High 0.5-1.9 [facility] Comment on above: Performed By: #### C P, BNP, CBCWD #### [address] [place] [address] International Exchange Coordinator: Horacio Gan MD Lactic Acid, Sepsis 2.6 mmol/L High 0.5-1.9 [facility] Comment on above: Performed By: #### C P, BNP, CBCWD #### [place] [address] International Exchange Coordinator: Horacio Gan MD Lactic Acidon 09-08-2023 Lactate [Moles/Vol] 1.8 mmol/L Normal 0.5-2.2 [facility] Comment on above: Performed By: #### P HO, MG #### [place] [address] International Exchange Coordinator: Horacio Gan MD Microalb.,Random Uron 2023 Creatinine [Mass/Vol] 159.5 mg/dL Normal 40.0-278.[address] [facility] Comment on above: Performed By: #### B C #### [place] [address] International Exchange Coordinator: Horacio Gan MD Microalb/Creat Ratio 56 mcg/mg creat High 0.0-30.0 [facility] Comment on above: Performed By: #### B C #### [place] [address] International Exchange Coordinator: Horacio Gan MD Microalbumin conc. 90 mg/L High 0-19 [facility] Comment on above: Performed By: #### B C #### [place] [address] International Exchange Coordinator: Horacio Gan MD Protein,Tot,Aulander Uron 2023 Creatinine [Mass/Vol] 159.8 mg/dL Normal 40.0-278.[address] [facility] Comment on above: Performed By: #### U RTPRT #### [place] [address] International Exchange Coordinator: Horacio Gan MD Tot Prot. Conc. 30 mg/dL High 0-12 [facility] Comment on above: Performed By: #### U RTPRT #### [place] [address] International Exchange Coordinator: Horacio Gan MD TP/Cre Ratio 0.19 Normal 0.0-0.2 [facility] Comment on above: Performed By: #### U RTPRT #### [place] [address] International Exchange Coordinator: Horacio Gan MD Resp Viral Panelon 4 Adenovirus Not detected Normal [facility] Comment on above: Performed By: #### R DIVING COACH #### [place] [address] International Exchange Coordinator: Horacio Gan MD Bordet.parapertussis Not detected Normal [facility] Comment on above: Performed By: #### R DIVING COACH #### [place] [address] International Exchange Coordinator: Horacio Gan MD Bordetella pertussis Not detected Normal [facility] Comment on above: Performed By: #### R DIVING COACH #### [place] [address] International Exchange Coordinator: Horacio Gan MD Chlamyd.pneumoniae Not detected Normal [facility] Comment on above: Performed By: #### R DIVING COACH #### [place] [address] International Exchange Coordinator: Horacio Gan MD Coronavirus 229E Not detected Normal [facility] Comment on above: Performed By: #### R DIVING COACH #### [address] [address] International Exchange Coordinator: Horacio Gan MD Coronavirus HKU1 Not detected Normal [facility] Comment on above: Performed By: #### R DIVING COACH #### [address] [place] [address] International Exchange Coordinator: Horacio Gan MD Coronavirus NL63 Not detected Normal [facility] Comment on above: Performed By: #### R DIVING COACH #### [address] [place] [address] International Exchange Coordinator: Horacio Gan MD Coronavirus OC43 Not detected Normal [facility] Comment on above: Performed By: #### R DIVING COACH #### [address] [place] [address] International Exchange Coordinator: Horacio Gan MD Human Metapneumo Not detected Normal [facility] Comment on above: Performed By: #### R DIVING COACH #### [address] [place] [address] International Exchange Coordinator: Horacio Gan MD Influenza A Not detected Normal [facility] Comment on above: Performed By: #### R DIVING COACH #### [address] [place] [address] International Exchange Coordinator: Horacio Gan MD Influenza B Not detected Normal [facility] Comment on above: Performed By: #### R DIVING COACH #### [address] [place] [address] International Exchange Coordinator: Horacio Gan MD Mycoplas.pneumoniae Not detected Normal [facility] Comment on above: Result Comment: Perf ormed by multiplexed nucleic acid assay. Performed By: #### R DIVING COACH #### [address] [place] [address] International Exchange Coordinator: Horacio Gan MD Parainfluenza 1 Not detected Normal [facility] Comment on above: Performed By: #### R DIVING COACH #### [address] [place] [address] International Exchange Coordinator: Horacio Gan MD Parainfluenza 2 Not detected Normal [facility] Comment on above: Performed By: #### R DIVING COACH #### [address] [place] [address] International Exchange Coordinator: Horacio Gan MD Parainfluenza 3 Not detected Normal [facility] Comment on above: Performed By: #### R DIVING COACH #### [address] [place] [address] International Exchange Coordinator: Horacio Gan MD Parainfluenza 4 Not detected Normal [facility] Comment on above: Performed By: #### R DIVING COACH #### [address] [place] [address] International Exchange Coordinator: Horacio Gan MD Resp Syncytial Virus Not detected Normal [facility] Comment on above: Performed By: #### R DIVING COACH #### [address] [place] [address] International Exchange Coordinator: Horacio Gan MD Rhino/Enterovirus Not detected Normal [facility] Comment on above: Performed By: #### R DIVING COACH #### [address] [place] [address] International Exchange Coordinator: Horacio Gan MD SARS-CoV-2 (COVID-19) RNA ANNIA+probe Ql (Unsp spec) Not detected Normal [facility] Comment on above: Performed By: #### R DIVING COACH #### [address] [place] [address] International Exchange Coordinator: Horacio Gan MD Source: .NASOPHARYNGEAL SWAB Normal [facility] Comment on above: Performed By: #### R DIVING COACH #### [address] [address] International Exchange Coordinator: Horacio Gan MD Sodium, Random Uron 09-08-19 24 Sodium (U) [Moles/Vol] 30 mmol/L Normal [facility] Comment on above: Result Comment: No n ormal range established. Performed By: #### B C #### [place] [address] International Exchange Coordinator: Horacio Gan MD Thyroid Stim. Horm.on 2023 Thyroid Stim. Horm. 7.02 uIU/mL High 0.27-4.20 [facility] Comment on above: Performed By: #### B C #### [address] [place] [address] International Exchange Coordinator: Horacio Gan MD Tox Scr, Bld, EDon 4 Acetaminophen [Mass/Vol] ug/mL Low 10.0-30.0 [facility] Comment on above: Performed By: #### P HO, MG #### [address] [address] International Exchange Coordinator: Horacio Gan MD Ethanol [Mass/Vol] mg/dL Normal <10 [facility] Comment on above: Performed By: #### P HO, MG #### [address] [place] [address] International Exchange Coordinator: Horacio Gan MD Salicylate <0.3 Normal 0.0-30.0 [facility] Comment on above: Performed By: #### P HO, MG #### [address] [place] [address] International Exchange Coordinator: Horacio Gan MD Toxic Tricyclic Sc,Bl Negative Normal NEG [facility] Comment on above: Result Comment: Cuto ff: 300 ng/ml Performed By: #### P HO, MG #### [address] [place] [address] International Exchange Coordinator: Horacio Gan MD Acetaminophen Unable to perform testing: Specimen hemolyzed. Normal 10-30 [facility] Comment on above: Result Comment: PRITI MCLAUGHLIN RN @1228 09/08/23 Performed By: #### [place] DTOX, CBCWD #### [address] [place] [address] International Exchange Coordinator: Horacio Gan MD Ethanol Unable to perform testing: Specimen hemolyzed. Normal <10 [facility] Comment on above: Result Comment: PRITI MCLAUGHLIN RN @1228 09/08/23 Performed By: #### E DTOX, CBCWD #### [address] [place] [address] International Exchange Coordinator: Horacio Gan MD Ethanol percent Unable to perform testing: Specimen hemolyzed. Normal <0.010 [facility] Comment on above: Result Comment: PRITI MCLAUGHLIN RN @1228 09/08/23 Performed By: #### E DTOX, CBCWD #### [address] [place] [address] International Exchange Coordinator: Horacio Gan MD Salicylate Unable to perform testing: Specimen hemolyzed. Normal 3-10 [facility] Comment on above: Result Comment: PRITI MCLAUGHLIN RN @1228 09/08/23 Performed By: #### E DTOX, CBCWD #### [place] [address] [place] [address] International Exchange Coordinator: Horacio Gan MD Toxic Tricyclic Sc,Bl Unable to perform testing: Specimen hemolyzed. Normal NEG [facility] Comment on above: Result Comment: PRITI MCLAUGHLIN RN @[facility]8 09/08/23 Performed By: #### E DTOX, CBCWD #### [address] [place] [address] International Exchange Coordinator: Horacio Gan MD Troponinon 09-08-2023 Troponin, High Sens 30 ng/L High 0-11 [facility] Comment on above: Result Comment: High Sensitivity Troponin values cannot be compared with other Troponin methodologies. Patients with high levels of Biotin oral intake (i.e >5mg/day) may have falsely decreased Troponin levels. Samples collected within 8 hours of biotin intake may require additional information for diagnosis. Performed By: #### P HO, MG #### [address] [place] [address] International Exchange Coordinator: Horacio Gan MD Troponin Interp. Unable to perform testing: Specimen hemolyzed. Normal [facility] Comment on above: Result Comment: PRITI MCLAUGHLIN RN @1228 09/08/23 Performed By: #### P HO, MG #### [address] [place] [address] International Exchange Coordinator: Horacio Gan MD Troponin T Unable to perform testing: Specimen hemolyzed. Normal <0.03 [facility] Comment on above: Result Comment: PRITI MCLAUGHLIN RN @1228 09/08/23 Performed By: #### P HO, MG #### [address] [place] [address] International Exchange Coordinator: Horacio Gan MD Troponin, High Sens Unable to perform testing: Specimen hemolyzed. Normal 0-22 [facility] Comment on above: Result Comment: PRITI CHARLESRUDI ARNOLDO RN @1228 09/08/23 Performed By: #### P MG LAUREN #### [facility] [address] [place] [address] International Exchange Coordinator: Horacio Gan MD US RETROPERITONEAL COMPLETEo n 09-08-2023 US RETROPERITONEAL COMPLETE EXAMINATION: RETROPERITONEAL ULTRASOUND OF THE KIDNEYS AND URINARY BLADDER 09/08/2023 COMPARISON: None HISTORY: ORDERING SYSTEM PROVIDED HISTORY: MARKOS vs CKD TECHNOLOGIST PROVIDED HISTORY: Reason for exam:->MARKOS vs CKD What reading provider will be dictating this exam?->CRC FINDINGS: Kidneys: The right kidney measures 11.2 cm in length and the left kidney measures 10.9 cm in length. The corticomedullary differentiation and cortical thickness appears maintained bilaterally. Possible hypoechoic lesion in the upper aspect of the right kidney. This measures 2.1 x 2.0 x 1.4 cm. No cyst or mass seen on the left. No hydronephrosis on either side. Right pleural effusion visualized. Small volume simple appearing intra-abdominal ascites. Bladder: Bladder volume was only 38 mL. No gross abnormality. IMPRESSION: 1. Relatively preserved renal cortical thickness. No hydronephrosis. Normal appearance of the imaged bladder. 2. Possible renal lesion in the upper pole the right kidney measuring 21 mm. Hypoechoic on today's exam. 3. There appears to be a right pleural effusion. There appears to be small volume intra-abdominal ascites. RECOMMENDATIONS: Recommend screening CT scan of the kidneys (renal mass protocol) when able to assess for lesion in the upper aspect of the right kidney. Interpreted by: Donny Mclaughlin DO Signed by: Donny Mclaughlin DO 09/08/23 Final result Normal [facility] Comment on above: Order Comment: Reaso n for exam:->MARKOS vs CKDWhat reading provider will be dictating this exam?->CRC Urea N,Random Urineon 2023 Urea N Conc. 1430 mg/dL Normal 800-1666 [facility] Comment on above: Performed By: #### B C #### [address] [address] International Exchange Coordinator: Horacio Gan MD Urinalysis w/ Microon 2023 Urine RBC's 0 TO 2 Normal 2 [facility] Comment on above: Performed By: #### B C #### [address] [place] [address] International Exchange Coordinator: Horacio Gan MD Urine WBC's 0 TO 5 Normal R05 [facility] Comment on above: Performed By: #### B C #### [address] [place] [address] International Exchange Coordinator: Horacio Gan MD Bilirubin, SemiQt,Ur Negative Normal NEG [facility] Comment on above: Performed By: #### B C #### [address] [place] [address] International Exchange Coordinator: Horacio Gan MD Blood, Urine Negative Normal NEG [facility] Comment on above: Performed By: #### B C #### [address] [place] [address] International Exchange Coordinator: Horacio Gan MD Clarity (U) Clear Normal CLEAR [facility] Comment on above: Performed By: #### B C #### [address] [place] [address] International Exchange Coordinator: Horacio Gan MD Color (U) Yellow Normal YEL [facility] Comment on above: Performed By: #### B C #### [address] [place] [address] International Exchange Coordinator: Horacio Gan MD Glucose Ql (U) Negative Normal NEG [facility] Comment on above: Performed By: #### B C #### [address] [place] [address] International Exchange Coordinator: Horacio Gan MD Ketones Ql (U) Negative Normal NEG [facility] Comment on above: Performed By: #### B C #### [address] [address] International Exchange Coordinator: Horacio Gan MD Leukocyte esterase Test strip Ql (U) Negative Normal NEG [facility] Comment on above: Performed By: #### B C #### [address] [address] International Exchange Coordinator: Horacio Gan MD Nitrite,Ur Negative Normal NEG [facility] Comment on above: Performed By: #### B C #### [address] [address] International Exchange Coordinator: Horacio Gan MD PH,Ur 6.0 Normal 5.0-9.0 [facility] Comment on above: Performed By: #### B C #### [address] [address] International Exchange Coordinator: Horacio Gan MD Protein Ql (U) 30 mg/dL Abnormal NEG [facility] Comment on above: Performed By: #### B C #### [address] [address] International Exchange Coordinator: Horacio Gan MD Spec. [place],Ur >1.030 High 1.005-1.030 [facility] Comment on above: Performed By: #### B C #### [address] [address] International Exchange Coordinator: Horacio Gan MD Urobilinogen,Ur 1.0 EU/dL Normal 0.0-1.0 [facility] Comment on above: Performed By: #### B C #### [address] [id number] International Exchange Coordinator: Horacio Gan MD XR CHEST PORTABLEon 09-08-19 XR CHEST PORTABLE EXAMINATION: ONE XRAY VIEW OF THE CHEST 09/08/2023 11:38 am COMPARISON: None. HISTORY: ORDERING SYSTEM PROVIDED HISTORY: AMS TECHNOLOGIST PROVIDED HISTORY: Reason for exam:->AMS What reading provider will be dictating this exam?->CRC FINDINGS: The heart is enlarged. There is no mediastinal widening The right lung left upper lobe are clear. I cannot exclude airspace disease within the left lung base. The left lung base is poorly visualized due to the cardiomegaly and overlying breast tissue. IMPRESSION: 1. Cardiomegaly. There are no findings of CHF 2. The right lung and left upper lobe are clear 3. Limited evaluation of the left lung base. If there is high suspicion for pneumonia dedicated CT of the chest or PA and lateral views the chest are recommended. Interpreted by: Buzz Mancilla MD Signed by: Buzz Mancilla MD 09/08/23 Final result Normal [facility] Comment on above: Order Comment: Reaso n for exam:->AMSWhat reading provider will be dictating this exam?->CRC Basic Metabolic Profon 09-07 Anion gap [Moles/Vol] 11 mmol/L Normal 7-16 [facility] Comment on above: Performed By: #### B MP #### [address] [address] International Exchange Coordinator: Horacio Gan MD Calcium [Mass/Vol] 9.3 mg/dL Normal 8.6-10.2 [facility] Comment on above: Performed By: #### B MP #### [address] [address] [employer] Exchange Coordinator: Horacio Gan MD Chloride [Moles/Vol] 100 mmol/L Normal 98-107 [facility] Comment on above: Performed By: #### B MP #### [address] [place] [address] [employer] Exchange Coordinator: Horacio Gan MD CO2 [Moles/Vol] 25 mmol/L Normal 22-29 [facility] Comment on above: Performed By: #### B MP #### [address] [place] [address] [employer] Coordinator: Horacio Gan MD Creatinine [Mass/Vol] 2.1 mg/dL High 0.70-1.20 [facility] Comment on above: Performed By: #### B MP #### [address] [address] [employer] Exchange Coordinator: Horacio Gan MD GFR/1.73 sq M.predicted among non-blacks MDRD (S/P/Bld) [Vol rate/Area] 34 mL/min/{1.73_m2} Low >60 [facility] Comment on above: Result Comment: These results are not intended for use in patients <18 years of age. eGFR results are calculated without a race factor using the 2020 CKD-EPI equation. Careful clinical correlation is recommended, particularly when comparing to results calculated using previous equations. The CKD-EPI equation is less accurate in patients with extremes of muscle mass, extra-renal metabolism of creatine, excessive creatine ingestion, or following therapy that affects renal tubular secretion. Performed By: #### B MP #### [address] [address] [employer] Exchange Coordinator: Horacio Gan MD Glucose [Mass/Vol] 93 mg/dL Normal 74-99 [facility] Comment on above: Performed By: #### B MP #### [address] [address] [employer] Exchange Coordinator: Horacio Gan MD Potassium [Moles/Vol] 6.1 mmol/L High 3.5-5.0 [facility] Comment on above: Performed By: #### B MP #### [place] [address] [employer] Coordinator: Horacio Gan MD Sodium [Moles/Vol] 136 mmol/L Normal 132-146 [facility] Comment on above: Performed By: #### B MP #### [place] [address] [employer] Coordinator: Horacio Gan MD Urea nitrogen [Mass/Vol] 64 mg/dL High 6-23 [facility] Comment on above: Performed By: #### B MP #### [place] [address] [employer] Coordinator: Horacio Gan MD Ammoniaon 09-06-2023 Ammonia (P) [Moles/Vol] 14 umol/L Low 16.0-60.0 [facility] Comment on above: Performed By: #### C P, VALPC, CBCWD, AMANDA #### [place] [address] [employer] Coordinator: Horacio Gan MD CBC with Diffon 09-06-2023 Abs. Basophil 0.01 k/uL Normal 0.00-0.20 [facility] Comment on above: Performed By: #### C P, VALPC, CBCWD, AMANDA #### [place] [address] [employer] Coordinator: Horacio Gan MD Abs.Imm.Granulocyte 0.04 k/uL Normal 0.00-0.58 [facility] Comment on above: Performed By: #### C P, VALPC, CBCWD, AMANDA #### [place] [address] [employer] Coordinator: Horacio Gan MD Abs.Neutrophil (Seg) 7.17 k/uL Normal 1.80-7.30 [facility] Comment on above: Performed By: #### C P, VALPC, CBCWD, AMANDA #### [address] [place] [address] [employer] Coordinator: Horacio Gan MD Basophils/100 WBC (Bld) 0 % Normal 0.0-2.0 [facility] Comment on above: Performed By: #### C P, VALPC, CBCWD, AMANDA #### [place] [address] [employer] Coordinator: Horacio Gan MD Eosinophils (Bld) [#/Vol] 0.00 10*3/uL Low 0.05-0.50 [facility] Comment on above: Performed By: #### C P, VALPC, CBCWD, AMANDA #### [address] [place] [address] [employer] Coordinator: Horacio Gan MD Eosinophils/100 WBC (Bld) 0 % Normal 0-6 [facility] Comment on above: Performed By: #### C P, VALPC, CBCWD, AMANDA #### [address] [place] [address] [employer] Coordinator: Horacio Gan MD Immature granulocytes/100 WBC (Bld) 1 % Normal 0.0-5.0 [facility] Comment on above: Performed By: #### C P, VALPC, CBCWD, AMANDA #### [address] [place] [address] [employer] Coordinator: Horacio Gan MD Lymphocytes (Bld) [#/Vol] 0.57 10*3/uL Low 1.50-4.00 [facility] Comment on above: Performed By: #### C P, VALPC, CBCWD, AMANDA #### [address] [place] [address] [employer] Coordinator: Horacio Gan MD Lymphocytes/100 WBC (Bld) 7 % Low 20.0-42.0 [facility] Comment on above: Performed By: #### C P, VALPC, CBCWD, AMANDA #### [address] [place] [address] [employer] Coordinator: Horacio Gan MD Monocytes (Bld) [#/Vol] 0.88 10*3/uL Normal 0.10-0.95 [facility] Comment on above: Performed By: #### C P, VALPC, CBCWD, AMANDA #### [address] [place] [address] [employer] Coordinator: Horacio Gan MD Monocytes/100 WBC (Bld) 10 % Normal 2.0-12.0 [facility] Comment on above: Performed By: #### C P, VALPC, CBCWD, AMANDA #### [address] [place] [address] [employer] Coordinator: Horacio Gan MD Neutrophil (Seg) 83 % High 43.0-80.0 [facility] Comment on above: Performed By: #### C P, VALPC, CBCWD, AMANDA #### [address] [place] [address] [employer] Coordinator: Horacio Gan MD RBC morphology finding Nom (Bld) Normal Normal [facility] Comment on above: Performed By: #### C P, VALPC, CBCWD, AMANDA #### [address] [place] [address] [employer] Coordinator: Horacio Gan MD Erythrocyte distribution width (RBC) [Ratio] 16.6 % High 11.5-15.0 [facility] Comment on above: Performed By: #### C P, VALPC, CBCWD, AMANDA #### [place] [address] [employer] Coordinator: Horacio Gan MD Hematocrit (Bld) [Volume fraction] 47.3 % Normal 37.0-54.0 [facility] Comment on above: Performed By: #### C P, VALPC, CBCWD, AMANDA #### [place] [address] [employer] Coordinator: Horacio Gan MD Hemoglobin (Bld) [Mass/Vol] 15.4 g/dL Normal 12.5-16.5 [facility] Comment on above: Performed By: #### C P, VALPC, CBCWD, AMANDA #### [place] [address] [employer] Coordinator: Horacio Gan MD MCH (RBC) [Entitic mass] 30.4 pg Normal 26.0-35.0 [facility] Comment on above: Performed By: #### C P, VALPC, CBCWD, AMANDA #### [place] [address] [employer] Coordinator: Horacio Gan MD MCHC (RBC) [Mass/Vol] 32.6 g/dL Normal 32.0-34.5 [facility] Comment on above: Performed By: #### C P, VALPC, CBCWD, AMANDA #### [place] [address] [employer] Coordinator: Horacio Gan MD MCV (RBC) [Entitic vol] 93.5 fL Normal 80.0-99.9 [facility] Comment on above: Performed By: #### C P, VALPC, CBCWD, AMANDA #### [address] [place] [address] [employer] Coordinator: Horacio Gan MD Platelet mean volume (Bld) [Entitic vol] 12.2 fL High 7.0-12.0 [facility] Comment on above: Performed By: #### C P, VALPC, CBCWD, AMANDA #### [address] [place] [address] [employer] Coordinator: Horacio Gan MD Platelets (Bld) [#/Vol] 267 10*3/uL Normal 130-450 [facility] Comment on above: Performed By: #### C P, VALPC, CBCWD, AMANDA #### [address] [place] [address] [employer] Coordinator: Horacio Gan MD RBC (Bld) [#/Vol] 5.06 10*6/uL Normal 3.80-5.80 [facility] Comment on above: Performed By: #### C P, VALPC, CBCWD, AMANDA #### [address] [place] [address] [employer] Coordinator: Horacio Gan MD WBC (Bld) [#/Vol] 8.7 10*3/uL Normal 4.5-11.5 [facility] Comment on above: Performed By: #### C P, VALPC, CBCWD, AMANDA #### [address] [place] [address] [employer] Coordinator: Horacio Gan MD Comp Metabolic Profon 2023 Albumin [Mass/Vol] 3.4 g/dL Low 3.5-5.2 [facility] Comment on above: Performed By: #### C P, VALPC, CBCWD, AMANDA #### [place] [address] [facility] [place] [address] [employer] Coordinator: Horacio Gan MD Alkaline Phos 112 U/L Normal 40-129 [facility] Comment on above: Performed By: #### C P, VALPC, CBCWD, AMANDA #### [address] [place] [address] [employer] Coordinator: Horacio Gan MD ALT [Catalytic activity/Vol] 21 U/L Normal 0-40 [facility] Comment on above: Performed By: #### C P, VALPC, CBCWD, AMANDA #### [address] [place] [address] [employer] Coordinator: Horacio Gan MD Anion gap [Moles/Vol] 14 mmol/L Normal 7-16 [facility] Comment on above: Performed By: #### C P, VALPC, CBCWD, AMANDA #### [address] [place] [address] [employer] Coordinator: Horacio Gan MD AST [Catalytic activity/Vol] 33 U/L Normal 0-39 [facility] Comment on above: Performed By: #### C P, VALPC, CBCWD, AMANDA #### [address] [place] [address] [employer] Coordinator: Horacio Gan MD Bilirubin [Mass/Vol] 0.6 mg/dL Normal 0.0-1.2 [facility] Comment on above: Performed By: #### C P, VALPC, CBCWD, AMANDA #### [address] [place] [address] [employer] Coordinator: Horacio Gan MD Calcium [Mass/Vol] 9.5 mg/dL Normal 8.6-10.2 [facility] Comment on above: Performed By: #### C P, VALPC, CBCWD, AMANDA #### [address] [place] [address] [employer] Coordinator: Horacio Gan MD Chloride [Moles/Vol] 100 mmol/L Normal 98-107 [facility] Comment on above: Performed By: #### C P, VALPC, CBCWD, AMANDA #### [address] [place] [address] [employer] Coordinator: Horacio Gan MD CO2 [Moles/Vol] 21 mmol/L Low 22-29 [facility] Comment on above: Performed By: #### C P, VALPC, CBCWD, AMANDA #### [address] [place] [address] [employer] Coordinator: Horacio Gan MD Creatinine [Mass/Vol] 2.1 mg/dL High 0.70-1.20 [facility] Comment on above: Performed By: #### C P, VALPC, CBCWD, AMANDA #### [address] [place] [address] [employer] Coordinator: Horacio Gan MD GFR/1.73 sq M.predicted among non-blacks MDRD (S/P/Bld) [Vol rate/Area] 33 mL/min/{1.73_m2} Low >60 [facility] Comment on above: Result Comment: These results are not intended for use in patients <18 years of age. eGFR results are calculated without a race factor using the 2020 CKD-EPI equation. Careful clinical correlation is recommended, particularly when comparing to results calculated using previous equations. The CKD-EPI equation is less accurate in patients with extremes of muscle mass, extra-renal metabolism of creatine, excessive creatine ingestion, or following therapy that affects renal tubular secretion. Performed By: #### C P, VALPC, CBCWD, AMANDA #### [address] [place] [address] [employer] Coordinator: Horacio Gan MD Glucose [Mass/Vol] 107 mg/dL High 74-99 [facility] Comment on above: Performed By: #### C P, VALPC, CBCWD, AMANDA #### [address] [place] [address] [employer] Coordinator: Horacio Gan MD Potassium [Moles/Vol] 6.3 mmol/L High 3.5-5.0 [facility] Comment on above: Performed By: #### C P, VALPC, CBCWD, AMANDA #### [address] [place] [address] [employer] Coordinator: Horacio Gan MD Protein [Mass/Vol] 6.4 g/dL Normal 6.4-8.3 [facility] Comment on above: Performed By: #### C P, VALPC, CBCWD, AMANDA #### [address] [place] [address] [employer] Coordinator: Horacio Gan MD Sodium [Moles/Vol] 135 mmol/L Normal 132-146 [facility] Comment on above: Performed By: #### C P, VALPC, CBCWD, AMANDA #### [address] [place] [address] [employer] Coordinator: Horcaio Gan MD Urea nitrogen [Mass/Vol] 58 mg/dL High 6-23 [facility] Comment on above: Performed By: #### C P, VALPC, CBCWD, AMANDA #### [address] [place] [address] [employer] Coordinator: Horacio Gan MD Valproic Acidon 09-06-2023 Valproic Acid 36 ug/mL Low 50-100 [facility] Comment on above: Performed By: #### C P, VALPC, CBCWD, AMANDA #### [place] [address] [place] [address] [employer] Coordinator: Horacio Gan MD Date last dose, Unknown Normal [facility] Comment on above: Performed By: #### C P, VALPC, CBCWD, AMANDA #### [place] [address] [place] [address] [employer] Coordinator: Horacio Gan MD Dose amount Unknown Normal [facility] Comment on above: Performed By: #### C P, VALPC, CBCWD, AMANDA #### [place] [address] [place] [address] [employer] Coordinator: Horacio Gan MD Time last dose, Unknown Normal [facility] Comment on above: Performed By: #### C P, VALPC, CBCWD, AMANDA #### [place] [address] [facility] [place] [address] [employer] Coordinator: Horacio Gan MD Folic Acidon 08-28-2023 Folic Acid >20.0 Normal 4.8-24.2 [facility] Comment on above: Performed By: #### Rosalie ZAYAS, CP #### [address] [place] [address] [employer] Coordinator: Horacio Gan MD Vitamin B12on 08-28-2023 Cobalamin (Vitamin B12) [Mass/Vol] 912 pg/mL Normal 211-946 [facility] Comment on above: Performed By: #### C CHANA, CP #### [place] [address] [place] [address] [employer] Coordinator: Horacio Gan MD CBC with Diffon 08-27-2023 Abs. Basophil 0.04 k/uL Normal 0.00-0.20 [facility] Comment on above: Performed By: #### C CHANA, CP #### [place] [address] [employer] Coordinator: Horacio Gan MD Abs.Imm.Granulocyte <0.03 Normal 0.00-0.58 [facility] Comment on above: Performed By: #### C CHANA, CP #### [place] [address] [employer] Coordinator: Horacio Gan MD Abs.Neutrophil (Seg) 3.41 k/uL Normal 1.80-7.30 [facility] Comment on above: Performed By: #### C CHANA, CP #### [place] [address] [employer] Coordinator: Horacio Gan MD Basophils/100 WBC (Bld) 1 % Normal 0.0-2.0 [facility] Comment on above: Performed By: #### Rosalie ZAYAS, CP #### [place] [address] [employer] Coordinator: Horacio Gan MD Eosinophils (Bld) [#/Vol] 0.09 10*3/uL Normal 0.05-0.50 [facility] Comment on above: Performed By: #### Rosalie ZAYAS, CP #### [place] [address] [employer] Coordinator: Horacio Gan MD Eosinophils/100 WBC (Bld) 2 % Normal 0-6 [facility] Comment on above: Performed By: #### C CHANA, CP #### [place] [address] [employer] Coordinator: Horacio Gan MD Erythrocyte distribution width (RBC) [Ratio] 15.9 % High 11.5-15.0 [facility] Comment on above: Performed By: #### C CHANA, CP #### [place] [address] [employer] Coordinator: Horacio Gan MD Hematocrit (Bld) [Volume fraction] 38.0 % Normal 37.0-54.0 [facility] Comment on above: Performed By: #### C CHANA, CP #### [place] [address] [employer] Coordinator: Horacio Gan MD Hemoglobin (Bld) [Mass/Vol] 11.9 g/dL Low 12.5-16.5 [facility] Comment on above: Performed By: #### Rosalie ZAYAS, CP #### [place] [address] [employer] Coordinator: Horacio Gan MD Immature granulocytes/100 WBC (Bld) 0 % Normal 0.0-5.0 [facility] Comment on above: Performed By: #### oRsalie ZAYAS, CP #### [place] [address] [employer] Coordinator: Horacio Gan MD Lymphocytes (Bld) [#/Vol] 0.70 10*3/uL Low 1.50-4.00 [facility] Comment on above: Performed By: #### C CHANA, CP #### [place] [address] [employer] Coordinator: Horacio Gan MD Lymphocytes/100 WBC (Bld) 14 % Low 20.0-42.0 [facility] Comment on above: Performed By: #### Rosalie ZAYAS, CP #### [place] [address] [employer] Coordinator: Horacio aGn MD MCH (RBC) [Entitic mass] 30.7 pg Normal 26.0-35.0 [facility] Comment on above: Performed By: #### Rosalie ZAYAS, CP #### [address] [address] [employer] Coordinator: Horacio Gan MD MCHC (RBC) [Mass/Vol] 31.3 g/dL Low 32.0-34.5 [facility] Comment on above: Performed By: #### Rosalie ZAYAS, CP #### [address] [address] [employer] Coordinator: Horacio Gan MD MCV (RBC) [Entitic vol] 98.2 fL Normal 80.0-99.9 [facility] Comment on above: Performed By: #### Rosalie ZAYAS, CP #### [place] [address] [employer] Coordinator: Horacio Gan MD Monocytes (Bld) [#/Vol] 0.72 10*3/uL Normal 0.10-0.95 [facility] Comment on above: Performed By: #### Rosalie ZAYAS, CP #### [place] [address] [employer] Coordinator: Horacio Gan MD Monocytes/100 WBC (Bld) 15 % High 2.0-12.0 [facility] Comment on above: Performed By: #### Rosalie ZAYAS, CP #### [address] [address] [employer] Coordinator: Horacio Gan MD Neutrophil (Seg) 68 % Normal 43.0-80.0 [facility] Comment on above: Performed By: #### Rosalie ZAYAS, CP #### [address] [place] [address] [employer] Coordinator: Horacio Gan MD Platelet mean volume (Bld) [Entitic vol] 11.7 fL Normal 7.0-12.0 [facility] Comment on above: Performed By: #### Rosalie ZAYAS, CP #### [address] [place] [address] [employer] Coordinator: Horacio Gan MD Platelets (Bld) [#/Vol] 257 10*3/uL Normal 130-450 [facility] Comment on above: Performed By: #### Rosalie ZAYAS, CP #### [address] [place] [address] [employer] Coordinator: Horacio Gan MD RBC (Bld) [#/Vol] 3.87 10*6/uL Normal 3.80-5.80 [facility] Comment on above: Performed By: #### Rosalie ZAYAS, CP #### [address] [place] [address] [employer] Coordinator: Horacio Gan MD WBC (Bld) [#/Vol] 5.0 10*3/uL Normal 4.5-11.5 [facility] Comment on above: Performed By: #### Rosalie ZAYAS, CP #### [address] [place] [address] [employer] Coordinator: Horacio Gan MD Comp Metabolic Profon 2023 Albumin [Mass/Vol] 3.8 g/dL Normal 3.5-5.2 [facility] Comment on above: Performed By: #### Rosalie ZAYAS, CP #### [address] [place] [address] [employer] Coordinator: Horacio Gan MD Alkaline Phos 126 U/L Normal 40-129 [facility] Comment on above: Performed By: #### Rosalie ZAYAS, CP #### [address] [place] [address] [employer] Coordinator: Horacio Gan MD ALT [Catalytic activity/Vol] 19 U/L Normal 0-40 [facility] Comment on above: Performed By: #### C CHANA, CP #### [address] [place] [address] [employer] Coordinator: Horacio Gan MD Anion gap [Moles/Vol] 14 mmol/L Normal 7-16 [facility] Comment on above: Performed By: #### C CHANA, CP #### [address] [place] [address] [employer] Coordinator: Horacio Gan MD AST [Catalytic activity/Vol] 26 U/L Normal 0-39 [facility] Comment on above: Performed By: #### Rosalie ZAYAS, CP #### [address] [place] [address] [employer] Coordinator: Horacio Gan MD Bilirubin [Mass/Vol] 0.4 mg/dL Normal 0.0-1.2 [facility] Comment on above: Performed By: #### Rosalie ZAYAS, CP #### [address] [place] [address] [employer] Coordinator: Horacio Gan MD Calcium [Mass/Vol] 9.4 mg/dL Normal 8.6-10.2 [facility] Comment on above: Performed By: #### C CHANA, CP #### [address] [place] [address] [employer] Coordinator: Horacio Gan MD Chloride [Moles/Vol] 98 mmol/L Normal 98-107 [facility] Comment on above: Performed By: #### C CHANA, CP #### [address] [place] [address] [employer] Coordinator: Horacio Gan MD CO2 [Moles/Vol] 24 mmol/L Normal 22-29 [facility] Comment on above: Performed By: #### C CHANA, CP #### [address] [place] [address] [employer] Coordinator: Horacio Gan MD Creatinine [Mass/Vol] 1.4 mg/dL High 0.70-1.20 [facility] Comment on above: Performed By: #### C CHANA, CP #### [address] [place] [address] [employer] Coordinator: Horacio Gan MD GFR/1.73 sq M.predicted among non-blacks MDRD (S/P/Bld) [Vol rate/Area] 54 mL/min/{1.73_m2} Low >60 [facility] Comment on above: Result Comment: These results are not intended for use in patients <18 years of age. eGFR results are calculated without a race factor using the 2020 CKD-EPI equation. Careful clinical correlation is recommended, particularly when comparing to results calculated using previous equations. The CKD-EPI equation is less accurate in patients with extremes of muscle mass, extra-renal metabolism of creatine, excessive creatine ingestion, or following therapy that affects renal tubular secretion. Performed By: #### C CHANA, CP #### [address] [place] [address] [employer] Coordinator: Horacio Gan MD Glucose [Mass/Vol] 75 mg/dL Normal 74-99 [facility] Comment on above: Performed By: #### C CHANA, CP #### [address] [place] [address] [employer] Coordinator: Horacio Gan MD Potassium [Moles/Vol] 5.0 mmol/L Normal 3.5-5.0 [facility] Comment on above: Performed By: #### Rosalie ZAYAS, CP #### [address] [address] [employer] Coordinator: Horacio Gan MD Protein [Mass/Vol] 6.7 g/dL Normal 6.4-8.3 [facility] Comment on above: Performed By: #### Rosalie ZAYAS, CP #### [address] [address] [employer] Coordinator: Horacio Gan MD Sodium [Moles/Vol] 136 mmol/L Normal 132-146 [facility] Comment on above: Performed By: #### Rosalie ZAYAS, CP #### [address] [address] [employer] Coordinator: Horacio Gan MD Urea nitrogen [Mass/Vol] 29 mg/dL High 6-23 [facility] Comment on above: Performed By: #### Rosalie ZAYAS, CP #### [address] [address] [employer] Coordinator: Horacio Gan MD Hemoglobin A1Con 08-27-2023 HbA1c (Bld) [Mass fraction] 5.3 % Normal 4.0-5.6 [facility] Comment on above: Performed By: #### Rosalie ZAYAS, CP #### [address] [address] [employer] Coordinator: Horacio Gan MD Laboratory - Chemistry and C hemistry - challengeon 08-22-2023 Glucose [Mass/Vol] 139 mg/dL High 70 - 100 mg/dL [facility] Glucose [Mass/Vol] 114 mg/dL High 70 - 100 mg/dL [facility] No Panel Informationon 08-22 Interpretation and review of laboratory results Abnormal [facility] Interpretation and review of laboratory results Abnormal [facility] CBC panel Auto (Bld)Ordered By: Concepcion Greco on 08-21-2023 Erythrocyte distribution width (RBC) [Ratio] 17.7 % High 11.5 - 14.5 % [facility] Hematocrit (Bld) [Volume fraction] 33.1 % Low 40.0 - 52.0 % [facility] Hemoglobin (Bld) [Mass/Vol] 10.9 g/dL Low 13.0 - 18.0 g/dL [facility] Interpretation and review of laboratory results Abnormal [facility] MCH (RBC) [Entitic mass] 31.4 pg 26.0 - 34.[address] [facility] MCHC (RBC) [Mass/Vol] 32.9 % 32.0 - 36.0 % [facility] MCV (RBC) [Entitic vol] 95.5 fL 80.0 - 98.[address] [facility] Platelet mean volume (Bld) [Entitic vol] 8.8 fL 7.4 - 12.[address] [facility] Platelets (Bld) [#/Vol] 249 10*3/uL 140 - 440 10*3/uL [facility] RBC (Bld) [#/Vol] 3.47 10*6/uL Low 4.40 - 5.9 0 10*6/uL [facility] WBC (Bld) [#/Vol] 5.2 10*3/uL 3.6 - 10.7 10*3/uL [facility] Comprehensive metabolic 1998 panelon 08-21-2023 Albumin [Mass/Vol] 3.2 g/dL Low 3.5 - 5.0 g/dL [facility] ALP [Catalytic activity/Vol] 125 U/L 38 - 126 U/L [facility] ALT [Catalytic activity/Vol] 36 U/L 0 - 49 U/L [facility] Anion gap [Moles/Vol] 4 mmol/L 3 - 13 mmol/L [facility] AST [Catalytic activity/Vol] 37 U/L 15 - 46 U/L [facility] Bilirubin [Mass/Vol] 0.4 mg/dL 0.2 - 1 .3 mg/dL [facility] Calcium [Mass/Vol] 8.6 mg/dL 8.4 - 10. 4 mg/dL [facility] Chloride [Moles/Vol] 106 mmol/L 98 - 10 7 mmol/L [facility] CO2 [Moles/Vol] 23 mmol/L 22 - 30 mmol/L [facility] Creatinine [Mass/Vol] 1.21 mg/dL 0.66 - 1.25 mg/dL [facility] GFR/1.73 sq M.predicted MDRD (S/P/Bld) [Vol rate/Area] 65.6 mL/min/{1.73_m2} - PINF [facility] Glucose [Mass/Vol] 91 mg/dL 70 - 100 mg/dL [facility] Interpretation and review of laboratory results Abnormal [facility] Potassium [Moles/Vol] 4.7 mmol/L 3.5 - 5.1 mmol/L [facility] Protein [Mass/Vol] 5.9 g/dL Low 6.3 - 8.2 g/dL [facility] Sodium [Moles/Vol] 133 mmol/L Low 135 - 145 mmol/L [facility] Urea nitrogen [Mass/Vol] 27 mg/dL High 9 - 20 mg/dL [facility] HIV 1+2 Ab+HIV1 p24 Ag IA Ql Ordered By: Nahun Shearer on 08-21-2023 Interpretation and review of laboratory results Normal [facility] Laboratory - Chemistry and C hemistry - challengeon 08-21-2023 Glucose [Mass/Vol] 116 mg/dL High 70 - 100 mg/dL [facility] Glucose [Mass/Vol] 161 mg/dL High 70 - 100 mg/dL [facility] Glucose [Mass/Vol] 182 mg/dL High 70 - 100 mg/dL [facility] Glucose [Mass/Vol] 97 mg/dL 70 - 100 mg/dL [facility] Laboratory - Microbiology an d Antimicrobial susceptibilityOrdered By: Nahun Shearer on 08-21-2023 HIV 1+2 Ab+HIV1 p24 Ag IA Ql Non-Reactive Nonreactive [facility] Laboratory - Microbiology an d Antimicrobial susceptibilityon 08-21-2023 [place] Ab RPR Ql (S) Non-Reactive Nonreactive S [facility] No Panel Informationon 08-21 Interpretation and review of laboratory results Abnormal [facility] Interpretation and review of laboratory results Abnormal [facility] Interpretation and review of laboratory results Abnormal [facility] Interpretation and review of laboratory results Normal [facility] Reagin Ab RPR Ql (S)on 08-21 Interpretation and review of laboratory results Normal [facility] Comprehensive metabolic 1998 panelon 08-20-2023 Albumin [Mass/Vol] 3.6 g/dL 3.5 - 5.0 g/dL [facility] ALP [Catalytic activity/Vol] 127 U/L High 38 - 126 U/L [facility] ALT [Catalytic activity/Vol] 48 U/L 0 - 49 U/L [facility] Anion gap [Moles/Vol] 7 mmol/L 3 - 13 mmol/L [facility] AST [Catalytic activity/Vol] 49 U/L High 15 - 46 U/L [facility] Bilirubin [Mass/Vol] 0.7 mg/dL 0.2 - 1 .3 mg/dL [facility] Calcium [Mass/Vol] 8.9 mg/dL 8.4 - 10. 4 mg/dL [facility] Chloride [Moles/Vol] 105 mmol/L 98 - 10 7 mmol/L [facility] CO2 [Moles/Vol] 25 mmol/L 22 - 30 mmol/L [facility] Creatinine [Mass/Vol] 1.05 mg/dL 0.66 - 1.25 mg/dL [facility] GFR/1.73 sq M.predicted MDRD (S/P/Bld) [Vol rate/Area] 77.8 mL/min/{1.73_m2} - PINF [facility] Glucose [Mass/Vol] 99 mg/dL 70 - 100 mg/dL [facility] Interpretation and review of laboratory results Abnormal [facility] Potassium [Moles/Vol] 5.0 mmol/L 3.5 - 5.1 mmol/L [facility] Protein [Mass/Vol] 6.7 g/dL 6.3 - 8.2 g/dL [facility] Sodium [Moles/Vol] 136 mmol/L 135 - 145 mmol/L [facility] Urea nitrogen [Mass/Vol] 21 mg/dL High 9 - 20 mg/dL [facility] Laboratory - Chemistry and C hemistry - challengeon 08-20-2023 Glucose [Mass/Vol] 121 mg/dL High 70 - 100 mg/dL [facility] Glucose [Mass/Vol] 102 mg/dL High 70 - 100 mg/dL [facility] Glucose [Mass/Vol] 108 mg/dL High 70 - 100 mg/dL [facility] Glucose [Mass/Vol] 108 mg/dL High 70 - 100 mg/dL [facility] Glucose [Mass/Vol] 97 mg/dL 70 - 100 mg/dL [facility] No Panel Informationon 08-20 Interpretation and review of laboratory results Abnormal [facility] Interpretation and review of laboratory results Abnormal [facility] Interpretation and review of laboratory results Abnormal [facility] Interpretation and review of laboratory results Abnormal [facility] Interpretation and review of laboratory results Normal [facility] Laboratory - Chemistry and C hemistry - challengeon 08-19-2023 Glucose [Mass/Vol] 113 mg/dL High 70 - 100 mg/dL [facility] Glucose [Mass/Vol] 136 mg/dL High 70 - 100 mg/dL [facility] Glucose [Mass/Vol] 106 mg/dL High 70 - 100 mg/dL [facility] Glucose [Mass/Vol] 94 mg/dL 70 - 100 mg/dL [facility] No Panel Informationon 08-19 Interpretation and review of laboratory results Abnormal [facility] Interpretation and review of laboratory results Abnormal [facility] Interpretation and review of laboratory results Abnormal [facility] Interpretation and review of laboratory results Normal [facility] CBC W Auto Differential pane l (Bld)on 08-18-2023 Basophils (Bld) [#/Vol] 0.0 10*3/uL 0.0 - 0.2 10*3/uL [facility] Basophils/100 WBC (Bld) 0.6 % 0.0 - 2.0 % [facility] Eosinophils (Bld) [#/Vol] 0.1 10*3/uL 0.0 - 0.5 10*3/uL [facility] Eosinophils/100 WBC (Bld) 1.9 % 1.0 - 6.0 % [facility] Erythrocyte distribution width (RBC) [Ratio] 18.0 % High 11.5 - 14.5 % [facility] Hematocrit (Bld) [Volume fraction] 36.9 % Low 40.0 - 52.0 % [facility] Hemoglobin (Bld) [Mass/Vol] 11.9 g/dL Low 13.0 - 18.0 g/dL [facility] Interpretation and review of laboratory results Abnormal [facility] Lymphocytes (Bld) [#/Vol] 0.5 10*3/uL Low 1.0 - 4.3 10*3/uL [facility] Lymphocytes/100 WBC (Bld) 11.6 % Low 20.0 - 40.0 % [facility] MCH (RBC) [Entitic mass] 31.5 pg 26.0 - 34.[address] [facility] MCHC (RBC) [Mass/Vol] 32.3 % 32.0 - 36.0 % [facility] MCV (RBC) [Entitic vol] 97.7 fL 80.0 - 98.[address] [facility] Monocytes (Bld) [#/Vol] 0.6 10*3/uL 0.0 - 0.8 10*3/uL [facility] Monocytes/100 WBC (Bld) 13.5 % High 2.0 - 10.0 % [facility] Neutrophils (Bld) [#/Vol] 3.3 10*3/uL 1.8 - 7.0 10*3/uL [facility] Neutrophils/100 WBC (Bld) 72.4 % 40.0 - 80.0 % [facility] Nucleated RBC/100 WBC (Bld) [Ratio] 0.0 % [facility] Platelet mean volume (Bld) [Entitic vol] 8.9 fL 7.4 - 12.[address] [facility] Platelets (Bld) [#/Vol] 225 10*3/uL 140 - 440 10*3/uL [facility] RBC (Bld) [#/Vol] 3.77 10*6/uL Low 4.40 - 5.9 0 10*6/uL [facility] WBC (Bld) [#/Vol] 4.5 10*3/uL 3.6 - 10.7 10*3/uL [facility] Comprehensive metabolic 1998 panelon 08-18-2023 Albumin [Mass/Vol] 3.5 g/dL 3.5 - 5.0 g/dL [facility] ALP [Catalytic activity/Vol] 134 U/L High 38 - 126 U/L [facility] ALT [Catalytic activity/Vol] 54 U/L High 0 - 49 U/L [facility] Anion gap [Moles/Vol] 13 mmol/L 3 - 13 mmol/L [facility] AST [Catalytic activity/Vol] 33 U/L 15 - 46 U/L [facility] Bilirubin [Mass/Vol] 0.5 mg/dL 0.2 - 1 .3 mg/dL [facility] Calcium [Mass/Vol] 8.9 mg/dL 8.4 - 10. 4 mg/dL [facility] Chloride [Moles/Vol] 102 mmol/L 98 - 10 7 mmol/L [facility] CO2 [Moles/Vol] 20 mmol/L Low 22 - 30 mmol/L [facility] Creatinine [Mass/Vol] 1.16 mg/dL 0.66 - 1.25 mg/dL [facility] GFR/1.73 sq M.predicted MDRD (S/P/Bld) [Vol rate/Area] 69.0 mL/min/{1.73_m2} - PINF [facility] Glucose [Mass/Vol] 101 mg/dL High 70 - 100 mg/dL [facility] Interpretation and review of laboratory results Abnormal [facility] Potassium [Moles/Vol] 4.3 mmol/L 3.5 - 5.1 mmol/L [facility] Protein [Mass/Vol] 6.6 g/dL 6.3 - 8.2 g/dL [facility] Sodium [Moles/Vol] 135 mmol/L 135 - 145 mmol/L [facility] Urea nitrogen [Mass/Vol] 24 mg/dL High 9 - 20 mg/dL [facility] Laboratory - Chemistry and C hemistry - challengeon 08-18-2023 Glucose [Mass/Vol] 103 mg/dL High 70 - 100 mg/dL [facility] Glucose [Mass/Vol] 93 mg/dL 70 - 100 mg/dL [facility] Glucose [Mass/Vol] 95 mg/dL 70 - 100 mg/dL [facility] Glucose [Mass/Vol] 93 mg/dL 70 - 100 mg/dL [facility] No Panel Informationon 08-18 Interpretation and review of laboratory results Abnormal [facility] Interpretation and review of laboratory results Normal [facility] Interpretation and review of laboratory results Normal [facility] Interpretation and review of laboratory results Normal [facility] CBC W Auto Differential pane l (Bld)on 08-17-2023 Basophils (Bld) [#/Vol] 0.0 10*3/uL 0.0 - 0.2 10*3/uL [facility] Basophils/100 WBC (Bld) 1.3 % 0.0 - 2.0 % [facility] Eosinophils (Bld) [#/Vol] 0.1 10*3/uL 0.0 - 0.5 10*3/uL [facility] Eosinophils/100 WBC (Bld) 1.8 % 1.0 - 6.0 % [facility] Erythrocyte distribution width (RBC) [Ratio] 18.4 % High 11.5 - 14.5 % [facility] Hematocrit (Bld) [Volume fraction] 30.9 % Low 40.0 - 52.0 % [facility] Hemoglobin (Bld) [Mass/Vol] 10.0 g/dL Low 13.0 - 18.0 g/dL [facility] Interpretation and review of laboratory results Abnormal [facility] Lymphocytes (Bld) [#/Vol] 0.6 10*3/uL Low 1.0 - 4.3 10*3/uL [facility] Lymphocytes/100 WBC (Bld) 15.5 % Low 20.0 - 40.0 % [facility] MCH (RBC) [Entitic mass] 31.9 pg 26.0 - 34.[address] [facility] MCHC (RBC) [Mass/Vol] 32.5 % 32.0 - 36.0 % [facility] MCV (RBC) [Entitic vol] 98.1 fL High 80.0 - 98.[address] [facility] Monocytes (Bld) [#/Vol] 0.8 10*3/uL 0.0 - 0.8 10*3/uL [facility] Monocytes/100 WBC (Bld) 20.7 % High 2.0 - 10.0 % [facility] Neutrophils (Bld) [#/Vol] 2.4 10*3/uL 1.8 - 7.0 10*3/uL [facility] Neutrophils/100 WBC (Bld) 60.7 % 40.0 - 80.0 % [facility] Nucleated RBC/100 WBC (Bld) [Ratio] 0.0 % [facility] Platelet mean volume (Bld) [Entitic vol] 9.1 fL 7.4 - 12.[address] [facility] Platelets (Bld) [#/Vol] 210 10*3/uL 140 - 440 10*3/uL [facility] RBC (Bld) [#/Vol] 3.14 10*6/uL Low 4.40 - 5.9 0 10*6/uL [facility] WBC (Bld) [#/Vol] 3.9 10*3/uL 3.6 - 10.7 10*3/uL [facility] Comprehensive metabolic 1998 panelon 08-17-2023 Albumin [Mass/Vol] 3.0 g/dL Low 3.5 - 5.0 g/dL [facility] ALP [Catalytic activity/Vol] 133 U/L High 38 - 126 U/L [facility] ALT [Catalytic activity/Vol] 56 U/L High 0 - 49 U/L [facility] Anion gap [Moles/Vol] 8 mmol/L 3 - 13 mmol/L [facility] AST [Catalytic activity/Vol] 36 U/L 15 - 46 U/L [facility] Bilirubin [Mass/Vol] 0.4 mg/dL 0.2 - 1 .3 mg/dL [facility] Calcium [Mass/Vol] 8.5 mg/dL 8.4 - 10. 4 mg/dL [facility] Chloride [Moles/Vol] 104 mmol/L 98 - 10 7 mmol/L [facility] CO2 [Moles/Vol] 20 mmol/L Low 22 - 30 mmol/L [facility] Creatinine [Mass/Vol] 1.14 mg/dL 0.66 - 1.25 mg/dL [facility] GFR/1.73 sq M.predicted MDRD (S/P/Bld) [Vol rate/Area] 70.5 mL/min/{1.73_m2} - PINF [facility] Glucose [Mass/Vol] 96 mg/dL 70 - 100 mg/dL [facility] Interpretation and review of laboratory results Abnormal [facility] Potassium [Moles/Vol] 4.4 mmol/L 3.5 - 5.1 mmol/L [facility] Protein [Mass/Vol] 5.8 g/dL Low 6.3 - 8.2 g/dL [facility] Sodium [Moles/Vol] 133 mmol/L Low 135 - 145 mmol/L [facility] Urea nitrogen [Mass/Vol] 25 mg/dL High 9 - 20 mg/dL [facility] Laboratory - Chemistry and C hemistry - challengeon 08-17-2023 Glucose [Mass/Vol] 119 mg/dL High 70 - 100 mg/dL [facility] Glucose [Mass/Vol] 135 mg/dL High 70 - 100 mg/dL [facility] Glucose [Mass/Vol] 149 mg/dL High 70 - 100 mg/dL [facility] Glucose [Mass/Vol] 171 mg/dL High 70 - 100 mg/dL [facility] No Panel Informationon 08-17 Interpretation and review of laboratory results Abnormal [facility] Interpretation and review of laboratory results Abnormal [facility] Interpretation and review of laboratory results Abnormal [facility] Interpretation and review of laboratory results Abnormal [facility] CBC W Auto Differential pane l (Bld)on 08-16-2023 Basophils (Bld) [#/Vol] 0.1 10*3/uL 0.0 - 0.2 10*3/uL [facility] Basophils/100 WBC (Bld) 1.5 % 0.0 - 2.0 % [facility] Eosinophils (Bld) [#/Vol] 0.1 10*3/uL 0.0 - 0.5 10*3/uL [facility] Eosinophils/100 WBC (Bld) 2.1 % 1.0 - 6.0 % [facility] Erythrocyte distribution width (RBC) [Ratio] 17.8 % High 11.5 - 14.5 % [facility] Hematocrit (Bld) [Volume fraction] 33.0 % Low 40.0 - 52.0 % [facility] Hemoglobin (Bld) [Mass/Vol] 10.8 g/dL Low 13.0 - 18.0 g/dL [facility] Interpretation and review of laboratory results Abnormal [facility] Lymphocytes (Bld) [#/Vol] 0.5 10*3/uL Low 1.0 - 4.3 10*3/uL [facility] Lymphocytes/100 WBC (Bld) 11.6 % Low 20.0 - 40.0 % [facility] MCH (RBC) [Entitic mass] 32.0 pg 26.0 - 34.[address] [facility] MCHC (RBC) [Mass/Vol] 32.7 % 32.0 - 36.0 % [facility] MCV (RBC) [Entitic vol] 97.8 fL 80.0 - 98.[address] [facility] Monocytes (Bld) [#/Vol] 0.7 10*3/uL 0.0 - 0.8 10*3/uL [facility] Monocytes/100 WBC (Bld) 17.3 % High 2.0 - 10.0 % [facility] Neutrophils (Bld) [#/Vol] 2.9 10*3/uL 1.8 - 7.0 10*3/uL [facility] Neutrophils/100 WBC (Bld) 67.5 % 40.0 - 80.0 % [facility] Nucleated RBC/100 WBC (Bld) [Ratio] 0.1 % [facility] Platelet mean volume (Bld) [Entitic vol] 8.9 fL 7.4 - 12.[address] [facility] Platelets (Bld) [#/Vol] 218 10*3/uL 140 - 440 10*3/uL [facility] RBC (Bld) [#/Vol] 3.38 10*6/uL Low 4.40 - 5.9 0 10*6/uL [facility] WBC (Bld) [#/Vol] 4.2 10*3/uL 3.6 - 10.7 10*3/uL [facility] Comprehensive metabolic 1998 panelon 08-16-2023 Albumin [Mass/Vol] 2.9 g/dL Low 3.5 - 5.0 g/dL [facility] ALP [Catalytic activity/Vol] 130 U/L High 38 - 126 U/L [facility] ALT [Catalytic activity/Vol] 67 U/L High 0 - 49 U/L [facility] Anion gap [Moles/Vol] 7 mmol/L 3 - 13 mmol/L [facility] AST [Catalytic activity/Vol] 57 U/L High 15 - 46 U/L [facility] Bilirubin [Mass/Vol] 0.6 mg/dL 0.2 - 1 .3 mg/dL [facility] Calcium [Mass/Vol] 8.3 mg/dL Low 8.4 - 10. 4 mg/dL [facility] Chloride [Moles/Vol] 103 mmol/L 98 - 10 7 mmol/L [facility] CO2 [Moles/Vol] 22 mmol/L 22 - 30 mmol/L [facility] Creatinine [Mass/Vol] 1.35 mg/dL High 0.66 - 1.25 mg/dL [facility] GFR/1.73 sq M.predicted MDRD (S/P/Bld) [Vol rate/Area] 57.5 mL/min/{1.73_m2} Low - PINF [facility] Glucose [Mass/Vol] 159 mg/dL High 70 - 100 mg/dL [facility] Interpretation and review of laboratory results Abnormal [facility] Potassium [Moles/Vol] 4.6 mmol/L 3.5 - 5.1 mmol/L [facility] Protein [Mass/Vol] 5.6 g/dL Low 6.3 - 8.2 g/dL [facility] Sodium [Moles/Vol] 132 mmol/L Low 135 - 145 mmol/L [facility] Urea nitrogen [Mass/Vol] 30 mg/dL High 9 - 20 mg/dL [facility] Laboratory - Chemistry and C hemistry - challengeon 08-16-2023 Glucose [Mass/Vol] 119 mg/dL High 70 - 100 mg/dL [facility] Glucose [Mass/Vol] 92 mg/dL 70 - 100 mg/dL [facility] Glucose [Mass/Vol] 135 mg/dL High 70 - 100 mg/dL [facility] Glucose [Mass/Vol] 98 mg/dL 70 - 100 mg/dL [facility] No Panel Informationon 08-16 Interpretation and review of laboratory results Abnormal [facility] Interpretation and review of laboratory results Normal [facility] Interpretation and review of laboratory results Abnormal [facility] Interpretation and review of laboratory results Normal [facility] CBC W Auto Differential pane l (Bld)Ordered By: Rina Cox on 08-15-2023 Basophils (Bld) [#/Vol] 0.0 10*3/uL 0.0 - 0.2 10*3/uL [facility] Basophils/100 WBC (Bld) 0.1 % 0.0 - 2.0 % [facility] Eosinophils (Bld) [#/Vol] 0.1 10*3/uL 0.0 - 0.5 10*3/uL [facility] Eosinophils/100 WBC (Bld) 2.7 % 1.0 - 6.0 % [facility] Erythrocyte distribution width (RBC) [Ratio] 17.7 % High 11.5 - 14.5 % [facility] Hematocrit (Bld) [Volume fraction] 31.2 % Low 40.0 - 52.0 % [facility] Hemoglobin (Bld) [Mass/Vol] 10.2 g/dL Low 13.0 - 18.0 g/dL [facility] Interpretation and review of laboratory results Abnormal [facility] Lymphocytes (Bld) [#/Vol] 0.5 10*3/uL Low 1.0 - 4.3 10*3/uL [facility] Lymphocytes/100 WBC (Bld) 11.9 % Low 20.0 - 40.0 % [facility] MCH (RBC) [Entitic mass] 32.1 pg 26.0 - 34.[address] [facility] MCHC (RBC) [Mass/Vol] 32.7 % 32.0 - 36.0 % [facility] MCV (RBC) [Entitic vol] 98.3 fL High 80.0 - 98.[address] [facility] Monocytes (Bld) [#/Vol] 0.7 10*3/uL 0.0 - 0.8 10*3/uL [facility] Monocytes/100 WBC (Bld) 16.6 % High 2.0 - 10.0 % [facility] Neutrophils (Bld) [#/Vol] 2.8 10*3/uL 1.8 - 7.0 10*3/uL [facility] Neutrophils/100 WBC (Bld) 68.7 % 40.0 - 80.0 % [facility] Nucleated RBC/100 WBC (Bld) [Ratio] 0.0 % [facility] Platelet mean volume (Bld) [Entitic vol] 9.3 fL 7.4 - 12.[address] [facility] Platelets (Bld) [#/Vol] 194 10*3/uL 140 - 440 10*3/uL [facility] RBC (Bld) [#/Vol] 3.17 10*6/uL Low 4.40 - 5.9 0 10*6/uL [facility] WBC (Bld) [#/Vol] 4.0 10*3/uL 3.6 - 10.7 10*3/uL [facility] Comprehensive metabolic 1998 panelon 08-15-2023 Albumin [Mass/Vol] 2.8 g/dL Low 3.5 - 5.0 g/dL [facility] ALP [Catalytic activity/Vol] 132 U/L High 38 - 126 U/L [facility] ALT [Catalytic activity/Vol] 76 U/L High 0 - 49 U/L [facility] Anion gap [Moles/Vol] 5 mmol/L 3 - 13 mmol/L [facility] AST [Catalytic activity/Vol] 61 U/L High 15 - 46 U/L [facility] Bilirubin [Mass/Vol] 0.5 mg/dL 0.2 - 1 .3 mg/dL [facility] Calcium [Mass/Vol] 8.2 mg/dL Low 8.4 - 10. 4 mg/dL [facility] Chloride [Moles/Vol] 104 mmol/L 98 - 10 7 mmol/L [facility] CO2 [Moles/Vol] 22 mmol/L 22 - 30 mmol/L [facility] Creatinine [Mass/Vol] 1.23 mg/dL 0.66 - 1.25 mg/dL [facility] GFR/1.73 sq M.predicted MDRD (S/P/Bld) [Vol rate/Area] 64.3 mL/min/{1.73_m2} - PINF [facility] Glucose [Mass/Vol] 75 mg/dL 70 - 100 mg/dL [facility] Interpretation and review of laboratory results Abnormal [facility] Potassium [Moles/Vol] 4.6 mmol/L 3.5 - 5.1 mmol/L [facility] Protein [Mass/Vol] 5.4 g/dL Low 6.3 - 8.2 g/dL [facility] Sodium [Moles/Vol] 132 mmol/L Low 135 - 145 mmol/L [facility] Urea nitrogen [Mass/Vol] 31 mg/dL High 9 - 20 mg/dL [facility] Laboratory - Chemistry and C hemistry - challengeon 08-15-2023 Glucose [Mass/Vol] 131 mg/dL High 70 - 100 mg/dL [facility] Glucose [Mass/Vol] 89 mg/dL 70 - 100 mg/dL [facility] Glucose [Mass/Vol] 238 mg/dL High 70 - 100 mg/dL [facility] Glucose [Mass/Vol] 81 mg/dL 70 - 100 mg/dL [facility] No Panel Informationon 08-15 Interpretation and review of laboratory results Abnormal [facility] Interpretation and review of laboratory results Normal [facility] Interpretation and review of laboratory results Abnormal [facility] Interpretation and review of laboratory results Normal [facility] CBC W Auto Differential pane l (Bld)Ordered By: Javier Fairchild on 08-14-2023 Basophils (Bld) [#/Vol] 0.0 10*3/uL 0.0 - 0.2 10*3/uL [facility] Basophils/100 WBC (Bld) 0.6 % 0.0 - 2.0 % [facility] Eosinophils (Bld) [#/Vol] 0.1 10*3/uL 0.0 - 0.5 10*3/uL [facility] Eosinophils/100 WBC (Bld) 2.1 % 1.0 - 6.0 % [facility] Erythrocyte distribution width (RBC) [Ratio] 17.9 % High 11.5 - 14.5 % [facility] Hematocrit (Bld) [Volume fraction] 29.1 % Low 40.0 - 52.0 % [facility] Hemoglobin (Bld) [Mass/Vol] 9.4 g/dL Low 13.0 - 18.0 g/dL [facility] Interpretation and review of laboratory results Abnormal [facility] Lymphocytes (Bld) [#/Vol] 0.5 10*3/uL Low 1.0 - 4.3 10*3/uL [facility] Lymphocytes/100 WBC (Bld) 12.1 % Low 20.0 - 40.0 % [facility] MCH (RBC) [Entitic mass] 31.8 pg 26.0 - 34.[address] [facility] MCHC (RBC) [Mass/Vol] 32.3 % 32.0 - 36.0 % [facility] MCV (RBC) [Entitic vol] 98.4 fL High 80.0 - 98.[address] [facility] Monocytes (Bld) [#/Vol] 0.7 10*3/uL 0.0 - 0.8 10*3/uL [facility] Monocytes/100 WBC (Bld) 18.0 % High 2.0 - 10.0 % [facility] Neutrophils (Bld) [#/Vol] 2.8 10*3/uL 1.8 - 7.0 10*3/uL [facility] Neutrophils/100 WBC (Bld) 67.2 % 40.0 - 80.0 % [facility] Nucleated RBC/100 WBC (Bld) [Ratio] 0.1 % [facility] Platelet mean volume (Bld) [Entitic vol] 8.8 fL 7.4 - 12.[address] [facility] Platelets (Bld) [#/Vol] 179 10*3/uL 140 - 440 10*3/uL [facility] RBC (Bld) [#/Vol] 2.96 10*6/uL Low 4.40 - 5.9 0 10*6/uL [facility] WBC (Bld) [#/Vol] 4.1 10*3/uL 3.6 - 10.7 10*3/uL [facility] Comprehensive metabolic 1998 panelon 08-14-2023 Albumin [Mass/Vol] 2.8 g/dL Low 3.5 - 5.0 g/dL [facility] ALP [Catalytic activity/Vol] 151 U/L High 38 - 126 U/L [facility] ALT [Catalytic activity/Vol] 94 U/L High 0 - 49 U/L [facility] Anion gap [Moles/Vol] 6 mmol/L 3 - 13 mmol/L [facility] AST [Catalytic activity/Vol] 82 U/L High 15 - 46 U/L [facility] Bilirubin [Mass/Vol] 0.5 mg/dL 0.2 - 1 .3 mg/dL [facility] Calcium [Mass/Vol] 8.0 mg/dL Low 8.4 - 10. 4 mg/dL [facility] Chloride [Moles/Vol] 103 mmol/L 98 - 10 7 mmol/L [facility] CO2 [Moles/Vol] 21 mmol/L Low 22 - 30 mmol/L [facility] Creatinine [Mass/Vol] 1.16 mg/dL 0.66 - 1.25 mg/dL [facility] GFR/1.73 sq M.predicted MDRD (S/P/Bld) [Vol rate/Area] 69.0 mL/min/{1.73_m2} - PINF [facility] Glucose [Mass/Vol] 76 mg/dL 70 - 100 mg/dL [facility] Interpretation and review of laboratory results Abnormal [facility] Potassium [Moles/Vol] 3.9 mmol/L 3.5 - 5.1 mmol/L [facility] Protein [Mass/Vol] 5.3 g/dL Low 6.3 - 8.2 g/dL [facility] Sodium [Moles/Vol] 130 mmol/L Low 135 - 145 mmol/L [facility] Urea nitrogen [Mass/Vol] 37 mg/dL High 9 - 20 mg/dL [facility] Laboratory - Chemistry and C hemistry - challengeon 08-14-2023 Glucose [Mass/Vol] 105 mg/dL High 70 - 100 mg/dL [facility] Glucose [Mass/Vol] 69 mg/dL Low 70 - 100 mg/dL [facility] Glucose [Mass/Vol] 143 mg/dL High 70 - 100 mg/dL [facility] Glucose [Mass/Vol] 159 mg/dL High 70 - 100 mg/dL [facility] Glucose [Mass/Vol] 84 mg/dL 70 - 100 mg/dL [facility] Glucose [Mass/Vol] 89 mg/dL 70 - 100 mg/dL [facility] No Panel Informationon 08-14 Interpretation and review of laboratory results Abnormal [facility] Interpretation and review of laboratory results Abnormal [facility] Interpretation and review of laboratory results Abnormal [facility] Interpretation and review of laboratory results Abnormal [facility] Interpretation and review of laboratory results Normal [facility] Interpretation and review of laboratory results Normal [facility] Laboratory - Chemistry and C hemistry - challengeon 08-13-2023 Glucose [Mass/Vol] 166 mg/dL High 70 - 100 mg/dL [facility] Glucose [Mass/Vol] 89 mg/dL 70 - 100 mg/dL [facility] Glucose [Mass/Vol] 128 mg/dL High 70 - 100 mg/dL [facility] Glucose [Mass/Vol] 84 mg/dL 70 - 100 mg/dL [facility] No Panel Informationon 08-13 Interpretation and review of laboratory results Abnormal [facility] Interpretation and review of laboratory results Normal [facility] Interpretation and review of laboratory results Abnormal [facility] Interpretation and review of laboratory results Normal [facility] Comprehensive metabolic 1998 panelon 08-12-2023 Albumin [Mass/Vol] 2.9 g/dL Low 3.5 - 5.0 g/dL [facility] ALP [Catalytic activity/Vol] 196 U/L High 38 - 126 U/L [facility] ALT [Catalytic activity/Vol] 143 U/L High 0 - 49 U/L [facility] Anion gap [Moles/Vol] 9 mmol/L 3 - 13 mmol/L [facility] AST [Catalytic activity/Vol] 212 U/L High 15 - 46 U/L [facility] Bilirubin [Mass/Vol] 0.5 mg/dL 0.2 - 1 .3 mg/dL [facility] Calcium [Mass/Vol] 8.2 mg/dL Low 8.4 - 10. 4 mg/dL [facility] Chloride [Moles/Vol] 103 mmol/L 98 - 10 7 mmol/L [facility] CO2 [Moles/Vol] 23 mmol/L 22 - 30 mmol/L [facility] Creatinine [Mass/Vol] 1.44 mg/dL High 0.66 - 1.25 mg/dL [facility] GFR/1.73 sq M.predicted MDRD (S/P/Bld) [Vol rate/Area] 53.3 mL/min/{1.73_m2} Low - PINF [facility] Glucose [Mass/Vol] 101 mg/dL High 70 - 100 mg/dL [facility] Interpretation and review of laboratory results Abnormal [facility] Potassium [Moles/Vol] 3.9 mmol/L 3.5 - 5.1 mmol/L [facility] Protein [Mass/Vol] 5.6 g/dL Low 6.3 - 8.2 g/dL [facility] Sodium [Moles/Vol] 134 mmol/L Low 135 - 145 mmol/L [facility] Urea nitrogen [Mass/Vol] 52 mg/dL High 9 - 20 mg/dL [facility] Laboratory - Chemistry and C hemistry - challengeon 08-12-2023 Glucose [Mass/Vol] 102 mg/dL High 70 - 100 mg/dL [facility] Glucose [Mass/Vol] 151 mg/dL High 70 - 100 mg/dL [facility] Glucose [Mass/Vol] 140 mg/dL High 70 - 100 mg/dL [facility] Ammonia (P) [Moles/Vol] umol/L Low 9 - 30 umol/L [facility] Glucose [Mass/Vol] 87 mg/dL 70 - 100 mg/dL [facility] Troponin I.cardiac [Mass/Vol] 0.025 ng/mL NINF - 0.034 ng/mL [facility] Laboratory - Drug toxicology Ordered By: Jessica Yang on 08-12-2023 Amphetamines Ql (U) Negative Negative [facility] Benzodiazepines Ql (U) Positive Negative [facility] Cocaine Ql (U) Negative Negative [facility] Methadone Ql (U) Negative Negative [facility] Opiates Ql (U) Negative Negative [facility] No Panel Informationon 08-12 Interpretation and review of laboratory results Abnormal [facility] Interpretation and review of laboratory results Abnormal [facility] Interpretation and review of laboratory results Abnormal [facility] Interpretation and review of laboratory results Abnormal [facility] Interpretation and review of laboratory results Normal [facility] No Panel InformationOrdered By: Nehemiah Snider on 08-12-2023 ETHYL GLUCURONIDE, URINE Positive Negative [facility] No Panel InformationOrdered By: Jessica Yang on 08-12-2023 BARBITURATES Negative Negative [facility] OXYCODONE/OXYMORPHONE Negative Negative [facility] PCP Negative Negative [facility] Troponin I.cardiac [Mass/Vol ]on 08-12-2023 Interpretation and review of laboratory results Normal [facility] US Heart Transthoracicon Ao Root Index 1.59 cm/m2 [facility] Aortic Root 3.[address] [facility] AR Max Velocity PISA 4.4 m/s [facility] [place] PHT 559.[address] [facility] Ascending Aorta 3.[address] [facility] Ascending Aorta Index 1.79 cm/m2 [facility] EF BP 26 % Abnormal 55 - 100 % [facility] Est. RA Pressure [address] [facility] Fractional Shortening 2D 11 % 28 - 44 % [facility] Interpretation and review of laboratory results Abnormal [facility] IVC Diameter 3.[address] [facility] IVSd 0.9 cm 0.6 - 1.0 cm [facility] [place] Diameter 4.7 cm [facility] [place] Size Index 2.41 cm/m2 [facility] [place] Volume 2C 132 mL Abnormal 18 - 58 mL [facility] [place] Volume 4C 76 mL Abnormal 18 - 58 mL [facility] [place] Volume A/L 109 mL [facility] [place] Volume BP 105 mL Abnormal 18 - 58 mL [facility] [place] Volume Index 2C 68 mL/m2 Abnormal 16 - 34 mL/m2 [facility] [place] Volume Index 4C 39 mL/m2 Abnormal 16 - 34 mL/m2 [facility] [place] Volume Index A/L 56 mL/m2 16 - 34 mL/m2 [facility] [place] Volume Index BP 54 ml/m2 Abnormal 16 - 34 ml/m2 [facility] LA/AO Root Ratio 1.52 [facility] [place] EDV A2C 165 mL [facility] [place] EDV A4C 155 mL [facility] EDV BP 162 mL Abnormal 67 - 155 mL [facility] [place] EDV Index A2C 85 mL/m2 [facility] [place] EDV Index A4C 79 mL/m2 [facility] EDV Index BP 83 mL/m2 [facility] [place] Ejection Fraction A2C 28 % [facility] [place] Ejection Fraction A4C 27 % [facility] [place] ESV A2C 119 mL [facility] [place] ESV A4C 113 mL [facility] [place] ESV BP 112 mL Abnormal 22 - 58 mL [facility] [place] ESV Index A2C 61 mL/m2 [facility] [place] ESV Index A4C 58 mL/m2 [facility] [place] ESV Index BP 57 mL/m2 [facility] [place] Mass 2D 191.6 g 88 - 224 g [facility] Mass 2D Index 98.3 g/m2 49 - 115 g/m2 [facility] [place] RWT Ratio 0.32 [facility] LVIDd 5.6 cm 4.2 - 5.9 cm [facility] LVIDd Index 2.87 cm/m2 [facility] LVIDs 5.0 cm [facility] LVIDs Index 2.56 cm/m2 [facility] LVOT Area 4.2 cm2 [facility] LVOT Cardiac Output 9.7 liter/minute [facility] LVOT Diameter 2.3 cm [facility] LVOT Mean Gradient 1 mmHg [facility] LVOT Peak Gradient 1 mmHg [facility] LVOT Peak Velocity 0.6 m/s [facility] LVOT Stroke Volume Index 19.8 mL/m2 [facility] LVOT SV 38.[address] [facility] LVOT VTI 9.[address] [facility] LVPWd 0.9 cm 0.6 - 1.[address] [facility] RA Area 4C 121.[address] [facility] RA Area 4C 116.[address] [facility] RV Basal Dimension 4.[address] [facility] RV Mid Dimension [address] [facility] RVSP [address] [facility] TAPSE 1.0 cm Abnormal 1.[address] [facility] TR Max Velocity 1.71 m/s [facility] TR Peak Gradient [address] [facility] CV CPACS [facility] CBC W Auto Differential pane l (Bld)Ordered By: Jaz Bonner on 08-11-2023 Basophils (Bld) [#/Vol] 0.0 10*3/uL 0.0 - 0.2 10*3/uL [facility] Basophils/100 WBC (Bld) 0.7 % 0.0 - 2.0 % [facility] Eosinophils (Bld) [#/Vol] 0.0 10*3/uL 0.0 - 0.5 10*3/uL [facility] Eosinophils/100 WBC (Bld) 0.8 % Low 1.0 - 6.0 % [facility] Erythrocyte distribution width (RBC) [Ratio] 18.9 % High 11.5 - 14.5 % [facility] Hematocrit (Bld) [Volume fraction] 37.1 % Low 40.0 - 52.0 % [facility] Hemoglobin (Bld) [Mass/Vol] 11.9 g/dL Low 13.0 - 18.0 g/dL [facility] Interpretation and review of laboratory results Abnormal [facility] Lymphocytes (Bld) [#/Vol] 0.3 10*3/uL Low 1.0 - 4.3 10*3/uL [facility] Lymphocytes/100 WBC (Bld) 4.8 % Low 20.0 - 40.0 % [facility] MCH (RBC) [Entitic mass] 32.1 pg 26.0 - 34.[address] [facility] MCHC (RBC) [Mass/Vol] 32.1 % 32.0 - 36.0 % [facility] MCV (RBC) [Entitic vol] 100.1 fL High 80.0 - 98.[address] [facility] Monocytes (Bld) [#/Vol] 0.5 10*3/uL 0.0 - 0.8 10*3/uL [facility] Monocytes/100 WBC (Bld) 10.3 % High 2.0 - 10.0 % [facility] Neutrophils (Bld) [#/Vol] 4.4 10*3/uL 1.8 - 7.0 10*3/uL [facility] Neutrophils/100 WBC (Bld) 83.4 % High 40.0 - 80.0 % [facility] Nucleated RBC/100 WBC (Bld) [Ratio] 0.1 % [facility] Platelet mean volume (Bld) [Entitic vol] 9.3 fL 7.4 - 12.[address] [facility] Platelets (Bld) [#/Vol] 223 10*3/uL 140 - 440 10*3/uL [facility] RBC (Bld) [#/Vol] 3.70 10*6/uL Low 4.40 - 5.9 0 10*6/uL [facility] WBC (Bld) [#/Vol] 5.3 10*3/uL 3.6 - 10.7 10*3/uL [facility] COVID-19, Flu A/B, and RSV C omboon 08-11-2023 Interpretation and review of laboratory results Normal [facility] CT Head WO contraston 2023 [facility] Radiology Study observation (narrative) [facility] CT Head WO contrastOrdered B y: Eduard HassanWellingtonilene on 08-11-[address] [facility] Work Phone: Comprehensive metabolic 1998 panelon 08-11-2023 Albumin [Mass/Vol] 3.7 g/dL 3.5 - 5.0 g/dL [facility] ALP [Catalytic activity/Vol] 204 U/L High 38 - 126 U/L [facility] ALT [Catalytic activity/Vol] 148 U/L High 0 - 49 U/L [facility] Anion gap [Moles/Vol] 13 mmol/L 3 - 13 mmol/L [facility] AST [Catalytic activity/Vol] 297 U/L High 15 - 46 U/L [facility] Bilirubin [Mass/Vol] 0.7 mg/dL 0.2 - 1 .3 mg/dL [facility] Calcium [Mass/Vol] 9.0 mg/dL 8.4 - 10. 4 mg/dL [facility] Chloride [Moles/Vol] 98 mmol/L 98 - 10 7 mmol/L [facility] CO2 [Moles/Vol] 23 mmol/L 22 - 30 mmol/L [facility] Creatinine [Mass/Vol] 1.83 mg/dL High 0.66 - 1.25 mg/dL [facility] GFR/1.73 sq M.predicted MDRD (S/P/Bld) [Vol rate/Area] 39.9 mL/min/{1.73_m2} Low - PINF [facility] Glucose [Mass/Vol] 164 mg/dL High 70 - 100 mg/dL [facility] Interpretation and review of laboratory results Abnormal [facility] Potassium [Moles/Vol] 4.4 mmol/L 3.5 - 5.1 mmol/L [facility] Protein [Mass/Vol] 6.9 g/dL 6.3 - 8.2 g/dL [facility] Sodium [Moles/Vol] 134 mmol/L Low 135 - 145 mmol/L [facility] Urea nitrogen [Mass/Vol] 61 mg/dL High 9 - 20 mg/dL [facility] Ethanol (Bld) [Mass/Vol]on 0 08-11-2023 Ethanol [Mass/Vol] g/dL 0.000 - 0.010 g/dL [facility] Laboratory - Chemistry and C hemistry - challengeon 08-11-2023 Glucose [Mass/Vol] 165 mg/dL High 70 - 100 mg/dL [facility] Glucose [Mass/Vol] 115 mg/dL High 70 - 100 mg/dL [facility] Average glucose Estimated from glycated hemoglobin (Bld) [Mass/Vol] 85 mg/dL [facility] TSH Qn 3.236 m[IU]/L [facility] Troponin I.cardiac [Mass/Vol] 0.036 ng/mL High NINF - 0.034 ng/mL [facility] Lactate [Moles/Vol] 1.8 mmol/L 0.7 - 2. 0 mmol/L [facility] Lactate [Moles/Vol] 2.6 mmol/L High 0.7 - 2. 0 mmol/L [facility] Troponin I.cardiac [Mass/Vol] 0.020 ng/mL NINF - 0.034 ng/mL [facility] Magnesium [Mass/Vol] 2.3 mg/dL 1.6 - 2 .3 mg/dL [facility] Base excess Calc (BldV) [Moles/Vol] -2.8000 mmol/L -3 - 3 mmol/L [facility] CO2 (BldV) [Partial pressure] 41.5 mm[Hg] [facility] HCO3 (Bld) [Moles/Vol] 22.8 mmol/L Low 23.0 - 27.0 mmol/L [facility] Oxygen (BldV) [Partial pressure] Low [facility] pH (BldV) 7.348 [pH] 7.330 - 7.[address] [facility] Laboratory - Hematology and Cell countson 08-11-2023 HbA1c (Bld) [Mass fraction] 4.6 % NINF - 5.7 % [facility] Laboratory - Microbiology an d Antimicrobial susceptibilityon 08-11-2023 FLUAV RNA ANNIA+probe Ql (Resp) Not detected Not Detected [facility] FLUBV RNA ANNIA+probe Ql (Resp) Not detected Not Detected [facility] RSV RNA ANNIA+probe Ql (Resp) Not detected Not Detected [facility] SARS-CoV-2 (COVID-19) RNA ANNIA+probe Ql (Resp) Not detected Not Detected [facility] Natriuretic peptide B [Mass/ Vol]on 08-11-2023 Interpretation and review of laboratory results Abnormal [facility] Natriuretic peptide B (Bld) [Mass/Vol] 13399 pg/mL High <20 - 300 [facility] [employer] No Panel InformationOrdered By: Brad Fierro on 08-11-2023 P [place] 0 degrees [facility] [employer] Work Phone: NE Interval 0 ms [facility] [employer] [facility] Work Phone: QRS [place] 51 degrees [employer] Work Phone: QRSD Interval 86 ms [employer] Work Phone: QT Interval 344 ms [employer] Work Phone: QTC Interval 488 ms [facility] [employer] Work Phone: T Wave [place] 132 degrees [facility] [employer] Work Phone: [facility] Work Phone: No Panel Informationon 08-[address] [facility] Interpretation and review of laboratory results Abnormal [facility] Interpretation and review of laboratory results Abnormal [facility] Interpretation and review of laboratory results Normal [facility] Interpretation and review of laboratory results Abnormal [facility] P [place] 0 degrees [facility] NE Interval [address] [facility] QRS [place] [address] [facility] QRSD Interval [address] [facility] QT Interval [address] [facility] QTC Interval [address] [facility] T Wave [place] [address] [facility] CV EPIPHANY [facility] P [place] [address] [facility] NE Interval [address] [facility] QRS [place] [address] [facility] QRSD Interval [address] [facility] QT Interval [address] [facility] QTC Interval [address] [facility] T Wave [place] [address] [facility] CV EPIPHANY [facility] Interpretation and review of laboratory results Normal [facility] Interpretation and review of laboratory results Abnormal [facility] TSH Qnon 08-11-2023 Interpretation and review of laboratory results Normal [facility] Troponin I.cardiac [Mass/Vol ]on 08-11-2023 Interpretation and review of laboratory results Abnormal [facility] Interpretation and review of laboratory results Normal [facility] Vital signsOrdered By: Mei Fierro on 08-11-2023 Heart rate 121 /min bpm [facility] [employer] Work Phone: Vital signson 08-11-2023 Heart rate 167 /min bpm [facility] Heart rate 175 /min bpm [facility] Oxygen saturation in Venous blood 35.6 % Low 60.0 - 80.0 % [facility] XR Chest Single viewon 08-11 [facility] Radiology Study observation (narrative) [facility] XR Chest Single viewOrdered By: Nuris Castellanos on 08-11-2023 [facility]r Phone: Absolute lymphocyte countOrd ered By: Galen Souza on 05-23-2023 Lymphocytes Auto (Unsp spec) [#/Vol] 0.60 10*3/uL 0.83-4.51 [facility] Basophil percentageOrdered B y: Galen Souza on 05-23-2023 Basophils/100 WBC (Bld) 0.9 % 0-1 [facility] Chloride [Moles/Vol] 100 mmol/L 98-107 [facility] Eosinophils/100 WBC (Bld) 4.6 % 0-5 [facility] Glucose [Mass/Vol] 88 mg/dL 74-106 [facility] Neutrophils (Bld) [#/Vol] 2.1 10*3/uL 2.0-7.7 [facility] Neutrophils/100 WBC (Bld) 61.2 % 47-70 [facility] Potassium [Moles/Vol] 4.0 mmol/L 3.5-5.1 [facility] Sodium [Moles/Vol] 134 mmol/L 136-145 [facility] WBC (Bld) [#/Vol] 3.5 10*3/uL 4.4-11.0 [facility] Blood erythrocytes count (nu mber/volume)Ordered By: Galen Souza on 05-23-2023 RBC (Bld) [#/Vol] 3.38 10*6/uL 4.6-6.2 [facility] Blood hemoglobin measurement (mass/volume)Ordered By: Galen Souza on 05-23-2023 Hemoglobin (Bld) [Mass/Vol] 11.1 g/dL 13.0-16.5 [facility] Blood lymphocytes/100 leukoc ytesOrdered By: Galen Souza on 05-23-2023 Lymphocytes/100 WBC (Bld) 17.2 % 19-41 [facility] Blood manual differential co mment interpretation (narrative result)Ordered By: Galen Souza on 05-23-2023 Manual differential comment Jeffery (Bld) [Interp] SCANNED [facility] Blood monocytes/100 leukocyt esOrdered By: Galen Souza on 05-23-2023 Monocytes/100 WBC (Bld) 15.2 % 0-10 [facility] Blood platelet mean volumeOr dered By: Galen Souza on 05-23-2023 Platelet mean volume (Bld) [Entitic vol] 9.3 fL 6.2-12.0 [facility] Determination of erythrocyte mean corpuscular volume (MCV)Ordered By: Galen Souza on 05-23-2023 MCV (RBC) [Entitic vol] 97.9 fL 80-94 [facility] Hematocrit Auto (Bld) [Volum e fraction]Ordered By: Galen Souza on 05-23-2023 Hematocrit (Bld) [Volume fraction] 33.1 % 40-54 [facility] Laboratory - Chemistry and C hemistry - challengeOrdered By: Galen Souza on 05-23-2023 CO2 [Moles/Vol] 29.0 mmol/L 21.0-32.0 [facility] Urea nitrogen/Creatinine [Mass ratio] 18.5 mg/mg 10-20 [facility] Laboratory - Hematology and Cell countsOrdered By: Galen Souza on 05-23-2023 Erythrocyte distribution width (RBC) [Entitic vol] 49.6 fL 35.1-43.9 [facility] Erythrocyte distribution width (RBC) [Ratio] 13.8 % 11.6-14.6 [facility] Immature granulocytes/100 WBC (Bld) 0.900 % 0.0-0.9 [facility] Comment on above: IG% - Immature Granu locytes (promyelocytes, myelocytes and metamyelocytes) > 1% indicates that a LEFT SHIFT is Present. MCH (RBC) [Entitic mass] 32.8 pg 27.0-32.0 [facility] Nucleated RBC/100 WBC (Bld) [Ratio] 0 % 0-5 [facility] MCHC Auto (RBC) [Mass/Vol]Or dered By: Galen Souza on 05-23-2023 MCHC (RBC) [Mass/Vol] 33.5 g/dL 32-36 [facility] No Panel InformationOrdered By: Galen Souza on 05-23-2023 Estimated Creatinine Clearance Calc 54.37 ml/min [facility] Estimated GFR (MDRD) Amer 68 mL/min >60 [facility] Comment on above: GFR Calc Estimated GFR (MDRD) Non-Af Amer 56 mL/min >60 [facility] Comment on above: Non- GFR Calc Platelets bldOrdered By: Shima Souza on 05-23-2023 Platelets (Bld) [#/Vol] 260 10*3/uL 150-450 [facility] Review by pathologistOrdered By: Galen Souza on 05-23-2023 Pathologist review Jeffery (Unsp spec) [Interp] Reviewed [facility] Comment on above: Previous reported re sult: Palma argueta Edited by: RGOOD on 05/24/23:0917 AMENDED REPORT 05/24/23916 PATH REV previously reported as: Palma argueta Serum or plasma calcium vamsi urement (mass/volume)Ordered By: Galen Souza on 05-23-2023 Calcium [Mass/Vol] 8.8 mg/dL 8.5-10.1 [facility] Serum or plasma creatinine m easurement (mass/volume)Ordered By: Galen Souza on 05-23-2023 Creatinine [Mass/Vol] 1.35 mg/dL 0.70-1.30 [facility] Comment on above: The validity of the calculated GFR & GFRAA in patients over 70 years has not been determined. Clinical correlation is essential. Serum or plasma urea nitroge n measurement (mass/volume)Ordered By: Galen oSuza on 05-23-2023 Urea nitrogen [Mass/Vol] 25 mg/dL 7-18 [facility] Thin prep Papanicolaou smear with manual screeningOrdered By: Galen Souza on 05-23-2023 Thin prep Papanicolaou smear with manual screening 5 5-15 [facility] Basophil percentageOrdered B y: Papo Cochran on 05-16-2023 Bilirubin [Mass/Vol] 0.20 mg/dL 0.20-1.00 [facility] Comment on above: For patients on eltr ombopag therapy, use of Dimension [place] TBIL is not recommended. Protein [Mass/Vol] 6.6 g/dL 6.4-8.2 [facility] Laboratory - Chemistry and C hemistry - challengeOrdered By: Papo Cochran on 05-16-2023 ALP [Catalytic activity/Vol] 81 U/L 45-117 [facility] ALT [Catalytic activity/Vol] 18 U/L 16-61 [facility] Globulin (S) [Mass/Vol] 3.5 g/dL 2.2-4.2 [facility] Laboratory - Drug toxicology Ordered By: Papo Cochran on 05-16-2023 Amphetamines Ql (U) Negative <1000 ng/mL [facility] Benzodiazepines Ql (U) Negative < 200 ng/mL [facility] Cannabinoids Screen Ql (U) Negative < 50 ng/mL [facility] Cocaine Ql (U) Negative < 300 ng/mL [facility] Opiates Ql (U) Negative < 300 ng/mL [facility] No Panel InformationOrdered By: Papo Cochran on 05-16-2023 MDMA (Ecstasy) Screen Negative < 500 ng/mL [facility] Urine Barbiturates Screen Negative < 200 ng/mL [facility] Urine Drug Screen Comment [facility] Comment on above: CONFIRMATORY TESTING FOR ALL POSITIVE URINE DRUG SCREENRESULTS WILL ONLY BE SENT OUT UPON PHYSICIAN ORDER. VISTA Urine Drug Screen methods provide only preliminaryanalytical test results. A more specific alternate chemicalmethod must be used in order to obtain a confirmedanalytical result. Gas chromatography/mass spectrometery(GC/MS) is the preferred confirmatory method. Clinicalconsideration and professional judgement should be appliedto any drug of abuse test result, particularly whenpreliminary positive results are used. URINE TCA TESTING MUST BE ORDERED SEPARATELY. USE TESTMNEMONIC: [facility] Urine Methadone Screen Negative < 300 ng/mL [facility] Ethyl Alcohol Level 77.0 mg/dL [facility] Comment on above: The serum:whole bloo d ethanol ratio is approximately 1.14and varies slightly with hematocrit. Medical Alcohol reference interval and critical value innon-tolerant individuals; 50 - 100 Impairment 100 Intoxication 100 - 250 Severe Poisoning 250 - 400 Deep/possible fatal coma Serum or plasma albumin vamsi urement (mass/volume)Ordered By: Papo Cochran on 05-16-2023 Albumin [Mass/Vol] 3.1 g/dL 3.2-5.0 [facility] Serum or plasma albumin/glob ulin mass ratioOrdered By: Papo Cochran on 05-16-2023 Albumin/Globulin [Mass ratio] 0.9 {ratio} 0.9-2.4 [facility] Thin prep Papanicolaou smear with manual screeningOrdered By: Papo Cochran on 05-16-2023 Thin prep Papanicolaou smear with manual screening 26 U/L 15-37 [facility] Urine phencyclidine (PCP) de tectionOrdered By: Papo Cochran on 05-16-2023 Phencyclidine Ql (U) Negative < 25 ng/mL [facility] Absolute lymphocyte countOrd ered By: Sandhya Bailey on 04-16-2023 Lymphocytes Auto (Unsp spec) [#/Vol] 0.30 10*3/uL 0.83-4.51 [facility] Basophil percentageOrdered B y: Sandhya Bailey on 04-16-2023 Basophil percentage 0 SEEN /hpf 0-5 [facility] Basophils/100 WBC (Bld) 0.4 % 0-1 [facility] Bilirubin [Mass/Vol] 0.60 mg/dL 0.20-1.00 [facility] Comment on above: For patients on eltr ombopag therapy, use of Dimension [place] TBIL is not recommended. Chloride [Moles/Vol] 99 mmol/L 98-107 [facility] Eosinophils/100 WBC (Bld) 0.1 % 0-5 [facility] Glucose [Mass/Vol] 62 mg/dL 74-106 [facility] Neutrophils (Bld) [#/Vol] 6.8 10*3/uL 2.0-7.7 [facility] Neutrophils/100 WBC (Bld) 91.2 % 47-70 [facility] Potassium [Moles/Vol] 4.6 mmol/L 3.5-5.1 [facility] Protein [Mass/Vol] 7.3 g/dL 6.4-8.2 [facility] Sodium [Moles/Vol] 135 mmol/L 136-145 [facility] WBC (Bld) [#/Vol] 7.5 10*3/uL 4.4-11.0 [facility] Bilirubin Test strip Ql (U)O rdered By: Sandhya Bailey on 04-16-2023 Bilirubin Ql (U) Negative Negative [facility] Blood erythrocytes count (nu mber/volume)Ordered By: Sandhya Bailey on 04-16-2023 RBC (Bld) [#/Vol] 3.92 10*6/uL 4.6-6.2 [facility] Blood hemoglobin measurement (mass/volume)Ordered By: Sandhya Bailey on 04-16-2023 Hemoglobin (Bld) [Mass/Vol] 12.9 g/dL 13.0-16.5 [facility] Blood lymphocytes/100 leukoc ytesOrdered By: Sandhya Bailey on 04-16-2023 Lymphocytes/100 WBC (Bld) 4.0 % 19-41 [facility] Blood manual differential co mment interpretation (narrative result)Ordered By: Sandhya Bailey on 04-16-2023 Manual differential comment Jeffery (Bld) [Interp] See comment [facility] Comment on above: LYMPHOPENIA NOTED Blood monocytes/100 leukocyt esOrdered By: Sandhya Bailey on 04-16-2023 Monocytes/100 WBC (Bld) 3.5 % 0-10 [facility] Blood platelet mean volumeOr dered By: Sandhya Bailey on 04-16-2023 Platelet mean volume (Bld) [Entitic vol] 8.9 fL 6.2-12.0 [facility] Determination of erythrocyte mean corpuscular volume (MCV)Ordered By: Sandhya Bailey on 04-16-2023 MCV (RBC) [Entitic vol] 95.2 fL 80-94 [facility] Glucose Glucometer (dC) [M ass/Vol]Ordered By: Sandhya Bailey on 04-16-2023 Glucose [Mass/Vol] 134 mg/dL 74-106 [facility] Comment on above: MANAGEMENT OF PATIEN T CARE PER NURSING PROTOCOL Glucose [Mass/Vol] 120 mg/dL 74-106 [facility] Comment on above: MANAGEMENT OF PATIEN T CARE PER NURSING PROTOCOL Hematocrit Auto (Bld) [Volum e fraction]Ordered By: Sandhya Bailey on 04-16-2023 Hematocrit (Bld) [Volume fraction] 37.3 % 40-54 [facility] Ketones Test strip Ql (U)Ord ered By: Sandhya Bailey on 04-16-2023 Ketones Ql (U) 15 mg/dl Negative [facility] Laboratory - Chemistry and C hemistry - challengeOrdered By: Sandhya Bailey on 04-16-2023 Cobalamin (Vitamin B12) [Mass/Vol] 319 pg/mL 211-911 [facility] ALP [Catalytic activity/Vol] 101 U/L 45-117 [facility] ALT [Catalytic activity/Vol] 15 U/L 16-61 [facility] CO2 [Moles/Vol] 22.0 mmol/L 21.0-32.0 [facility] Globulin (S) [Mass/Vol] 3.8 g/dL 2.2-4.2 [facility] Urea nitrogen/Creatinine [Mass ratio] 7.8 mg/mg 10-20 [facility] Laboratory - Hematology and Cell countsOrdered By: Sandhya Bailey on 04-16-2023 Erythrocyte distribution width (RBC) [Entitic vol] 47.3 fL 35.1-43.9 [facility] Erythrocyte distribution width (RBC) [Ratio] 13.5 % 11.6-14.6 [facility] Immature granulocytes/100 WBC (Bld) 0.800 % 0.0-0.9 [facility] Comment on above: IG% - Immature Granu locytes (promyelocytes, myelocytes and metamyelocytes) > 1% indicates that a LEFT SHIFT is Present. MCH (RBC) [Entitic mass] 32.9 pg 27.0-32.0 [facility] Nucleated RBC/100 WBC (Bld) [Ratio] 0 % 0-5 [facility] MCHC Auto (RBC) [Mass/Vol]Or dered By: Sandhya Bailey on 04-16-2023 MCHC (RBC) [Mass/Vol] 34.6 g/dL 32-36 [facility] Mucus LM Ql (Urine sed)Order ed By: Sandhya Bailey on 04-16-2023 Mucus Ql (Urine sed) 0 SEEN /hpf [facility] Nitrite Test strip Ql (U)Ord ered By: Sandhya Bailey on 04-16-2023 Nitrite Ql (U) Negative Negative [facility] No Panel InformationOrdered By: Sandhya Bailey on 04-16-2023 Estimated Creatinine Clearance Calc 57.38 ml/min [facility] Estimated GFR (MDRD) Amer 71 mL/min >60 [facility] Comment on above: GFR Calc Estimated GFR (MDRD) Non-Af Amer 59 mL/min >60 [facility] Comment on above: Non- GFR Calc Ethyl Alcohol Level 17.0 mg/dL [facility] Comment on above: The serum:whole bloo d ethanol ratio is approximately 1.14and varies slightly with hematocrit. Medical Alcohol reference interval and critical value innon-tolerant individuals; 50 - 100 Impairment 100 Intoxication 100 - 250 Severe Poisoning 250 - 400 Deep/possible fatal coma Platelets bldOrdered By: Ebony Bailey on 04-16-2023 Platelets (Bld) [#/Vol] 329 10*3/uL 150-450 [facility] Protein Test strip Ql (U)Ord ered By: Sandhya Bailey on 04-16-2023 Protein Ql (U) Negative Negative [facility] Serum or plasma albumin vamsi urement (mass/volume)Ordered By: Sandhya Bailey on 04-16-2023 Albumin [Mass/Vol] 3.5 g/dL 3.2-5.0 [facility] Serum or plasma albumin/glob ulin mass ratioOrdered By: Sandhya Bailey on 04-16-2023 Albumin/Globulin [Mass ratio] 0.9 {ratio} 0.9-2.4 [facility] Serum or plasma calcium vamsi urement (mass/volume)Ordered By: Sandhya Bailey on 04-16-2023 Calcium [Mass/Vol] 9.1 mg/dL 8.5-10.1 [facility] Serum or plasma creatinine m easurement (mass/volume)Ordered By: Sandhya Bailey on 04-16-2023 Creatinine [Mass/Vol] 1.29 mg/dL 0.70-1.30 [facility] Comment on above: The validity of the calculated GFR & GFRAA in patients over 70 years has not been determined. Clinical correlation is essential. Serum or plasma urea nitroge n measurement (mass/volume)Ordered By: Sandhya Bailey on 04-16-2023 Urea nitrogen [Mass/Vol] 10 mg/dL - [facility] Squamous epithelial cells de tection in urine sediment by light microscopyOrdered By: Sandhya Bailey on 04-16-2023 Epithelial cells.squamous LM Ql (Urine sed) 0-5 SEEN /hpf 0-5 [facility] Thin prep Papanicolaou smear with manual screeningOrdered By: Sandhya Bailey on 04-16-2023 Thin prep Papanicolaou smear with manual screening 30 U/L 15-37 [facility] Thin prep Papanicolaou smear with manual screening 14 5-15 [facility] Urine blood detectionOrdered By: Sandhya Bailey on 04-16-2023 RBC Ql (U) Negative Negative [facility] RBC Ql (U) 0 SEEN /hpf 0-5 [facility] Urine clarityOrdered By: Ebony Bailey on 04-16-2023 Clarity (U) Clear Clear [facility] Urine color determinationOrd ered By: Sandhya Bailey on 04-16-2023 Color (U) Yellow Yellow [facility] Urine glucose detectionOrder ed By: Sandhya Bailey on 04-16-2023 Glucose Ql (U) Normal mg/dl Normal [facility] Urine leukocyte esterase det ection by dipstickOrdered By: Sandhya Bailey on 04-16-2023 Leukocyte esterase Test strip Ql (U) Negative Negative [facility] Urine pHOrdered By: Sandhya steiner on 04-16-2023 pH (U) 6.0 [pH] 5.0 - 8.0 [facility] Urine sediment bacteria coun t by microscopy (number/high power field)Ordered By: Sandhya Bailey on 04-16-2023 Bacteria LM.HPF (Urine sed) [#/Area] 0 /[HPF] None Seen [facility] Urine specific gravity measu rementOrdered By: Sandhya Bailey on 04-16-2023 Specific gravity (U) [Rel density] 1.015 1.002-1.030 [facility] Urobilinogen Auto test strip Ql (U)Ordered By: Sandhya Bailey on 04-16-2023 Urobilinogen Ql (U) Normal mg/dl Normal [facility] Absolute lymphocyte countOrd ered By: Brandyn Mchugh on 03-06-2023 Lymphocytes Auto (Unsp spec) [#/Vol] 0.25 10*3/uL 0.83-4.51 [facility] Basophil percentageOrdered B y: Brandyn Mchugh on 03-06-2023 Basophils/100 WBC (Bld) 0.8 % 0-1 [facility] Chloride [Moles/Vol] 105 mmol/L 98-107 [facility] Eosinophils/100 WBC (Bld) 0.2 % 0-5 [facility] Glucose [Mass/Vol] 90 mg/dL 74-106 [facility] Neutrophils (Bld) [#/Vol] 4.2 10*3/uL 2.0-7.7 [facility] Neutrophils/100 WBC (Bld) 85.8 % 47-70 [facility] Potassium [Moles/Vol] 4.5 mmol/L 3.5-5.1 [facility] Comment on above: Slight Hemolysis, Re sult may be falsely increased. Sodium [Moles/Vol] 136 mmol/L 136-145 [facility] WBC (Bld) [#/Vol] 4.9 10*3/uL 4.4-11.0 [facility] Blood erythrocytes count (nu mber/volume)Ordered By: Brandyn Mchugh on 03-06-2023 RBC (Bld) [#/Vol] 3.72 10*6/uL 4.6-6.2 [facility] Blood hemoglobin measurement (mass/volume)Ordered By: Brandyn Mchugh on 03-06-2023 Hemoglobin (Bld) [Mass/Vol] 11.6 g/dL 13.0-16.5 [facility] Blood lymphocytes/100 leukoc ytesOrdered By: Brandyn Mchugh on 03-06-2023 Lymphocytes/100 WBC (Bld) 5.1 % 19-41 [facility] Blood manual differential co mment interpretation (narrative result)Ordered By: Brandyn Mchugh on 03-06-2023 Manual differential comment Jeffery (Bld) [Interp] SCANNED [facility] Blood monocytes/100 leukocyt esOrdered By: Brandyn Mchugh on 03-06-2023 Monocytes/100 WBC (Bld) 7.1 % 0-10 [facility] Blood platelet mean volumeOr dered By: Brandyn Mchugh on 03-06-2023 Platelet mean volume (Bld) [Entitic vol] 9.0 fL 6.2-12.0 [facility] Determination of erythrocyte mean corpuscular volume (MCV)Ordered By: Brandyn Mchugh on 03-06-2023 MCV (RBC) [Entitic vol] 94.6 fL 80-94 [facility] Hematocrit Auto (Bld) [Volum e fraction]Ordered By: Brandyn Mchugh on 03-06-2023 Hematocrit (Bld) [Volume fraction] 35.2 % 40-54 [facility] Laboratory - Chemistry and C hemistry - challengeOrdered By: Brandyn Mchugh on 03-06-2023 CO2 [Moles/Vol] 22.0 mmol/L 21.0-32.0 [facility] Urea nitrogen/Creatinine [Mass ratio] 6.5 mg/mg 10-20 [facility] Laboratory - Hematology and Cell countsOrdered By: Brandyn Mchugh on 03-06-2023 Erythrocyte distribution width (RBC) [Entitic vol] 47.8 fL 35.1-43.9 [facility] Erythrocyte distribution width (RBC) [Ratio] 13.7 % 11.6-14.6 [facility] Immature granulocytes/100 WBC (Bld) 1.000 % 0.0-0.9 [facility] Comment on above: IG% - Immature Granu locytes (promyelocytes, myelocytes and metamyelocytes) > 1% indicates that a LEFT SHIFT is Present. MCH (RBC) [Entitic mass] 31.2 pg 27.0-32.0 [facility] Nucleated RBC/100 WBC (Bld) [Ratio] 0 % 0-5 [facility] MCHC Auto (RBC) [Mass/Vol]Or dered By: Brandyn Mchugh on 03-06-2023 MCHC (RBC) [Mass/Vol] 33.0 g/dL 32-36 [facility] No Panel InformationOrdered By: Brandyn Mchugh on 03-06-2023 Estimated Creatinine Clearance Calc 66.99 ml/min [facility] Estimated GFR (MDRD) Amer 89 mL/min >60 [facility] Comment on above: GFR Calc Estimated GFR (MDRD) Non-Af Amer 73 mL/min >60 [facility] Comment on above: Non- GFR Calc Platelets bldOrdered By: Aiden Mchugh on 03-06-2023 Platelets (Bld) [#/Vol] 374 10*3/uL 150-450 [facility] Serum or plasma calcium vamsi urement (mass/volume)Ordered By: Brandyn Mchugh on 03-06-2023 Calcium [Mass/Vol] 8.4 mg/dL 8.5-10.1 [facility] Serum or plasma creatinine m easurement (mass/volume)Ordered By: Brandyn Mchugh on 03-06-2023 Creatinine [Mass/Vol] 1.07 mg/dL 0.70-1.30 [facility] Comment on above: The validity of the calculated GFR & GFRAA in patients over 70 years has not been determined. Clinical correlation is essential. Serum or plasma urea nitroge n measurement (mass/volume)Ordered By: Brandyn Mchugh on 03-06-2023 Urea nitrogen [Mass/Vol] 7 mg/dL 7-18 [facility] Thin prep Papanicolaou smear with manual screeningOrdered By: Brandyn Mchugh on 03-06-2023 Thin prep Papanicolaou smear with manual screening 9 5-15 [facility] Basophil percentageOrdered B y: Galen Souza on 02-27-2023 Chloride [Moles/Vol] 98 mmol/L 98-107 [facility] Glucose [Mass/Vol] 128 mg/dL 74-106 [facility] Comment on above: Fasting Glucose resu lt greater than or equal to 126 mg/dL suggests DIABETES MELLITUS per A.D.A. criteria. Potassium [Moles/Vol] 3.6 mmol/L 3.5-5.1 [facility] Sodium [Moles/Vol] 130 mmol/L 136-145 [facility] Laboratory - Chemistry and C hemistry - challengeOrdered By: Galen Souza on 02-27-2023 CO2 [Moles/Vol] 27.0 mmol/L 21.0-32.0 [facility] Urea nitrogen/Creatinine [Mass ratio] 11.7 mg/mg 10-20 [facility] No Panel InformationOrdered By: Galen Souza on 02-27-2023 Estimated Creatinine Clearance Calc 56.00 ml/min [facility] Estimated GFR (MDRD) Amer 72 mL/min >60 [facility] Comment on above: GFR Calc Estimated GFR (MDRD) Non-Af Amer 60 mL/min >60 [facility] Comment on above: Non- GFR Calc Serum or plasma calcium vamsi urement (mass/volume)Ordered By: Galen Souza on 02-27-2023 Calcium [Mass/Vol] 8.1 mg/dL 8.5-10.1 [facility] Serum or plasma creatinine m easurement (mass/volume)Ordered By: Galen Souza on 02-27-2023 Creatinine [Mass/Vol] 1.28 mg/dL 0.70-1.30 [facility] Comment on above: The validity of the calculated GFR & GFRAA in patients over 70 years has not been determined. Clinical correlation is essential. Serum or plasma urea nitroge n measurement (mass/volume)Ordered By: Galen Souza on 02-27-2023 Urea nitrogen [Mass/Vol] 15 mg/dL 7-18 [facility] Thin prep Papanicolaou smear with manual screeningOrdered By: Galen Souza on 02-27-2023 Thin prep Papanicolaou smear with manual screening 5 5-15 [facility] Absolute lymphocyte countOrd ered By: Kelechi Miles on 02-26-2023 Lymphocytes Auto (Unsp spec) [#/Vol] 0.43 10*3/uL 0.83-4.51 [facility] Basophil percentageOrdered B y: Kelechi Miles on 02-26-2023 Basophils/100 WBC (Bld) 0.2 % 0-1 [facility] Bilirubin [Mass/Vol] 0.30 mg/dL 0.20-1.00 [facility] Comment on above: For patients on eltr ombopag therapy, use of Dimension [place] TBIL is not recommended. Eosinophils/100 WBC (Bld) 0.8 % 0-5 [facility] Neutrophils (Bld) [#/Vol] 4.7 10*3/uL 2.0-7.7 [facility] Neutrophils/100 WBC (Bld) 79.6 % 47-70 [facility] Protein [Mass/Vol] 6.1 g/dL 6.4-8.2 [facility] WBC (Bld) [#/Vol] 5.9 10*3/uL 4.4-11.0 [facility] Blood erythrocytes count (nu mber/volume)Ordered By: Kelechi Miles on 02-26-2023 RBC (Bld) [#/Vol] 3.31 10*6/uL 4.6-6.2 [facility] Blood hemoglobin measurement (mass/volume)Ordered By: Kelechi Miles on 02-26-2023 Hemoglobin (Bld) [Mass/Vol] 10.4 g/dL 13.0-16.5 [facility] Blood lymphocytes/100 leukoc ytesOrdered By: Kelechi Miles on 02-26-2023 Lymphocytes/100 WBC (Bld) 7.3 % 19-41 [facility] Blood manual differential co mment interpretation (narrative result)Ordered By: Kelechi Miles on 02-26-2023 Manual differential comment Jeffery (Bld) [Interp] SCANNED [facility] Blood monocytes/100 leukocyt esOrdered By: Kelechi Miles on 02-26-2023 Monocytes/100 WBC (Bld) 11.6 % 0-10 [facility] Blood platelet mean volumeOr dered By: Kelechi Miles on 02-26-2023 Platelet mean volume (Bld) [Entitic vol] 9.5 fL 6.2-12.0 [facility] Determination of erythrocyte mean corpuscular volume (MCV)Ordered By: Kelechi Miles on 02-26-2023 MCV (RBC) [Entitic vol] 92.4 fL 80-94 [facility] Hematocrit Auto (Bld) [Volum e fraction]Ordered By: Kelechi Miles on 02-26-2023 Hematocrit (Bld) [Volume fraction] 30.6 % 40-54 [facility] Laboratory - Chemistry and C hemistry - challengeOrdered By: Kelechi Miles on 02-26-2023 ALP [Catalytic activity/Vol] 97 U/L 45-117 [facility] ALT [Catalytic activity/Vol] 17 U/L 16-61 [facility] Globulin (S) [Mass/Vol] 3.3 g/dL 2.2-4.2 [facility] Laboratory - Drug toxicology Ordered By: Kelechi Miles on 02-26-2023 Amphetamines Ql (U) Negative <1000 ng/mL [facility] Benzodiazepines Ql (U) Negative < 200 ng/mL [facility] Cannabinoids Screen Ql (U) Negative < 50 ng/mL [facility] Cocaine Ql (U) Negative < 300 ng/mL [facility] Opiates Ql (U) Negative < 300 ng/mL [facility] Laboratory - Hematology and Cell countsOrdered By: Kelechi Miles on 02-26-2023 Erythrocyte distribution width (RBC) [Entitic vol] 46.5 fL 35.1-43.9 [facility] Erythrocyte distribution width (RBC) [Ratio] 13.5 % 11.6-14.6 [facility] Immature granulocytes/100 WBC (Bld) 0.500 % 0.0-0.9 [facility] Comment on above: IG% - Immature Granu locytes (promyelocytes, myelocytes and metamyelocytes) > 1% indicates that a LEFT SHIFT is Present. MCH (RBC) [Entitic mass] 31.4 pg 27.0-32.0 [facility] Nucleated RBC/100 WBC (Bld) [Ratio] 0 % 0-5 [facility] MCHC Auto (RBC) [Mass/Vol]Or dered By: Kelechi Miles on 02-26-2023 MCHC (RBC) [Mass/Vol] 34.0 g/dL 32-36 [facility] No Panel InformationOrdered By: Kelechi Miles on 02-26-2023 Ethyl Alcohol Level < 3.0 mg/dL [facility] Comment on above: The serum:whole bloo d ethanol ratio is approximately 1.14and varies slightly with hematocrit. Medical Alcohol reference interval and critical value innon-tolerant individuals; 50 - 100 Impairment 100 Intoxication 100 - 250 Severe Poisoning 250 - 400 Deep/possible fatal coma MDMA (Ecstasy) Screen Negative < 500 ng/mL [facility] Urine Barbiturates Screen Negative < 200 ng/mL [facility] Urine Drug Screen Comment [facility] Comment on above: CONFIRMATORY TESTING FOR ALL POSITIVE URINE DRUG SCREENRESULTS WILL ONLY BE SENT OUT UPON PHYSICIAN ORDER. VISTA Urine Drug Screen methods provide only preliminaryanalytical test results. A more specific alternate chemicalmethod must be used in order to obtain a confirmedanalytical result. Gas chromatography/mass spectrometery(GC/MS) is the preferred confirmatory method. Clinicalconsideration and professional judgement should be appliedto any drug of abuse test result, particularly whenpreliminary positive results are used. URINE TCA TESTING MUST BE ORDERED SEPARATELY. USE TESTMNEMONIC: [facility] Urine Methadone Screen Negative < 300 ng/mL [facility] Platelets bldOrdered By: Jamarcus Miles on 02-26-2023 Platelets (Bld) [#/Vol] 269 10*3/uL 150-450 [facility] Serum or plasma albumin vamsi urement (mass/volume)Ordered By: Kelechi Miles on 02-26-2023 Albumin [Mass/Vol] 2.8 g/dL 3.2-5.0 [facility] Serum or plasma albumin/glob ulin mass ratioOrdered By: Kelechi Miles on 02-26-2023 Albumin/Globulin [Mass ratio] 0.8 {ratio} 0.9-2.4 [facility] Thin prep Papanicolaou smear with manual screeningOrdered By: Kelechi Miles on 02-26-2023 Thin prep Papanicolaou smear with manual screening 27 U/L 15-37 [facility] Urine phencyclidine (PCP) de tectionOrdered By: Kelechi Miles on 02-26-2023 Phencyclidine Ql (U) Negative < 25 ng/mL [facility] Absolute lymphocyte countOrd ered By: Buzz Mayers on 02-24-2023 Lymphocytes Auto (Unsp spec) [#/Vol] 0.58 10*3/uL 0.83-4.51 [facility] Basophil percentageOrdered B y: Buzz Mayers on 02-24-2023 Basophils/100 WBC (Bld) 0.6 % 0-1 [facility] Bilirubin [Mass/Vol] 0.30 mg/dL 0.20-1.00 [facility] Comment on above: For patients on eltr ombopag therapy, use of Dimension [place] TBIL is not recommended. Chloride [Moles/Vol] 99 mmol/L 98-107 [facility] Eosinophils/100 WBC (Bld) 0.8 % 0-5 [facility] Glucose [Mass/Vol] 73 mg/dL 74-106 [facility] Neutrophils (Bld) [#/Vol] 3.7 10*3/uL 2.0-7.7 [facility] Neutrophils/100 WBC (Bld) 74.0 % 47-70 [facility] Potassium [Moles/Vol] 3.6 mmol/L 3.5-5.1 [facility] Protein [Mass/Vol] 6.2 g/dL 6.4-8.2 [facility] Sodium [Moles/Vol] 132 mmol/L 136-145 [facility] WBC (Bld) [#/Vol] 5.0 10*3/uL 4.4-11.0 [facility] Blood erythrocytes count (nu mber/volume)Ordered By: Buzz Mayers on 02-24-2023 RBC (Bld) [#/Vol] 3.29 10*6/uL 4.6-6.2 [facility] Blood hemoglobin measurement (mass/volume)Ordered By: Buzz Mayers on 02-24-2023 Hemoglobin (Bld) [Mass/Vol] 10.3 g/dL 13.0-16.5 [facility] Blood lymphocytes/100 leukoc ytesOrdered By: Buzz Mayers on 02-24-2023 Lymphocytes/100 WBC (Bld) 11.7 % 19-41 [facility] Blood manual differential co mment interpretation (narrative result)Ordered By: Buzz Mayers on 02-24-2023 Manual differential comment Jeffery (Bld) [Interp] SCANNED [facility] Comment on above: LYMPHOPENIA NOTED Blood monocytes/100 leukocyt esOrdered By: Buzz Mayers on 02-24-2023 Monocytes/100 WBC (Bld) 12.3 % 0-10 [facility] Blood platelet mean volumeOr dered By: Buzz Mayers on 02-24-2023 Platelet mean volume (Bld) [Entitic vol] 9.0 fL 6.2-12.0 [facility] Determination of erythrocyte mean corpuscular volume (MCV)Ordered By: Buzz Mayers on 02-24-2023 MCV (RBC) [Entitic vol] 91.5 fL 80-94 [facility] Hematocrit Auto (Bld) [Volum e fraction]Ordered By: Buzz Mayers on 02-24-2023 Hematocrit (Bld) [Volume fraction] 30.1 % 40-54 [facility] Laboratory - Chemistry and C hemistry - challengeOrdered By: Buzz Mayers on 02-24-2023 ALP [Catalytic activity/Vol] 86 U/L 45-117 [facility] ALT [Catalytic activity/Vol] 17 U/L 16-61 [facility] CO2 [Moles/Vol] 23.0 mmol/L 21.0-32.0 [facility] Globulin (S) [Mass/Vol] 3.2 g/dL 2.2-4.2 [facility] Magnesium [Mass/Vol] 2.1 mg/dL 1.6-2.6 [facility] Urea nitrogen/Creatinine [Mass ratio] 7.2 mg/mg 10-20 [facility] Laboratory - Hematology and Cell countsOrdered By: Buzz Mayers on 02-24-2023 Erythrocyte distribution width (RBC) [Entitic vol] 44.5 fL 35.1-43.9 [facility] Erythrocyte distribution width (RBC) [Ratio] 13.3 % 11.6-14.6 [facility] Immature granulocytes/100 WBC (Bld) 0.600 % 0.0-0.9 [facility] Comment on above: IG% - Immature Granu locytes (promyelocytes, myelocytes and metamyelocytes) > 1% indicates that a LEFT SHIFT is Present. MCH (RBC) [Entitic mass] 31.3 pg 27.0-32.0 [facility] Nucleated RBC/100 WBC (Bld) [Ratio] 0 % 0-5 [facility] MCHC Auto (RBC) [Mass/Vol]Or dered By: Buzz Mayers on 02-24-2023 MCHC (RBC) [Mass/Vol] 34.2 g/dL 32-36 [facility] No Panel InformationOrdered By: Buzz Mayers on 02-24-2023 Estimated Creatinine Clearance Calc 68.75 ml/min [facility] Estimated GFR (MDRD) Amer 100 mL/min >60 [facility] Comment on above: GFR Calc Estimated GFR (MDRD) Non-Af Amer 82 mL/min >60 [facility] Comment on above: Non- GFR Calc Ethyl Alcohol Level 280.0 mg/dL [facility] Comment on above: The serum:whole bloo d ethanol ratio is approximately 1.14and varies slightly with hematocrit. Medical Alcohol reference interval and critical value innon-tolerant individuals; 50 - 100 Impairment 100 Intoxication 100 - 250 Severe Poisoning 250 - 400 Deep/possible fatal coma Platelets bldOrdered By: Jaye Mayers on 02-24-2023 Platelets (Bld) [#/Vol] 251 10*3/uL 150-450 [facility] Serum or plasma albumin vamsi urement (mass/volume)Ordered By: Buzz Mayers on 02-24-2023 Albumin [Mass/Vol] 3.0 g/dL 3.2-5.0 [facility] Serum or plasma albumin/glob ulin mass ratioOrdered By: Buzz Mayers on 02-24-2023 Albumin/Globulin [Mass ratio] 0.9 {ratio} 0.9-2.4 [facility] Serum or plasma calcium vamsi urement (mass/volume)Ordered By: Buzz Mayers on 02-24-2023 Calcium [Mass/Vol] 8.2 mg/dL 8.5-10.1 [facility] Serum or plasma creatinine m easurement (mass/volume)Ordered By: Buzz Mayers on 02-24-2023 Creatinine [Mass/Vol] 0.97 mg/dL 0.70-1.30 [facility] Comment on above: The validity of the calculated GFR & GFRAA in patients over 70 years has not been determined. Clinical correlation is essential. Serum or plasma urea nitroge n measurement (mass/volume)Ordered By: Buzz Mayers on 02-24-2023 Urea nitrogen [Mass/Vol] 7 mg/dL 7-18 [facility] Thin prep Papanicolaou smear with manual screeningOrdered By: Buzz Mayers on 02-24-2023 Thin prep Papanicolaou smear with manual screening 29 U/L 15-37 [facility] Thin prep Papanicolaou smear with manual screening 10 5-15 [facility] ED Nursing Noteon 01-28-2023 ED Nursing Note Pt's BG check was 49 . Pt given 2 cartons of juice. Brett Felipe RN 01/28/23 [id number] Normal [facility] ED Nursing Note RN to room to medica te patient. Pt was standing up in the room pulling off his c-collar and cords stating he's not wearing this stuff anymore and stop putting it back on. Pt redirected to bed, given warm blankets and explained the use of the call light. Informed patient to not get out of bed and call for help when needed. Will continue to monitor. Brett Felipe RN 01/27/23 [id number] Normal [facility] Laboratory - Chemistry and C hemistry - challengeon 01-28-2023 Glucose [Mass/Vol] mg/dL Low 70 - 100 mg/dL [facility] Comment on above: Caregiver Notified; Laboratory - Chemistry and C hemistry - challengeOrdered By: Donny Coleman on 01-28-2023 Lactate [Moles/Vol] 2.5 mmol/L Critically high 0.7 - 2.0 mmol/L [facility] No Panel Informationon 01-28 Interpretation and review of laboratory results Abnormal [facility] Performed by: [facility], [address] [place] [address] CLIA ID: [id number] [facility] No Panel InformationOrdered By: Donny Coleman on 01-28-2023 Interpretation and review of laboratory results Abnormal [facility] Critical Panic Lacta te has fallen below the [facility] CCL/ED Panic Call Protocol. For [facility] ED patients ONLY the Lactate Levels greater than 2.0 and less than or equal to 4.0 mmol/L fall under the Panic Call Policy. [facility] Progress Noteon 01-28-2023 Progress Note ----- ----- Attestation signed by Anum Kaiser MD at 01/28/2023 9:46 AM I agree with the assessment and the plan as documented by the [employer] CEO below. Anum Kaiser MD ----- Department of Trauma / Critical Care Tertiary Survey Date of Trauma: 01/27/2023 8:17 PM HAYDEE/HPI: Found down 68 y.o. yom status post found down, presumptive fall. The incident happened around unknown time, unknown last seen normal. Patient reports he lives with his brother. Patient was combative with EMS, attempted to punch and required restraints en route. Patient pain level currently is 3/10. Positive EtOH, pt endorses drinking Merlot and Vodka today. PMH: Past Medical History: Diagnosis Date Prediabetes PSH: History reviewed. No pertinent surgical history. PCP: No primary care provider on file. Physical Exam Constitutional: Appearance: He is ill-appearing. HENT: Head: Normocephalic. Comments: Right forehead laceration with nylon sutures in place. Dried blood on face and scalp Right Ear: External ear normal. Left Ear: External ear normal. Nose: Nose normal. Eyes: General: Right eye: No discharge. Left eye: No discharge. Cardiovascular: Rate and Rhythm: Normal rate. Pulses: Normal pulses. Pulmonary: Effort: Pulmonary effort is normal. No respiratory distress. Breath sounds: No stridor. Wheezing present. Chest: Chest wall: No tenderness. Abdominal: General: There is no distension. Palpations: Abdomen is soft. Tenderness: There is no abdominal tenderness. Musculoskeletal: General: No swelling or tenderness. Normal range of motion. Cervical back: Normal range of motion and neck supple. No rigidity or tenderness. Skin: General: Skin is warm and dry. Capillary Refill: Capillary refill takes less than 2 seconds. Neurological: General: No focal deficit present. Mental Status: He is alert and oriented to person, place, and time. Comments: Shaky movement/tremors Psychiatric: Comments: Mildly anxious Extremity PhysicalExam RUE: Tenderness: absent Edema: absent ROM: normal RLE: Tenderness: absent Edema: absent ROM: normal LUE: Tenderness:absent Edema: absent ROM: normal LLE:: absent Edema: absent ROM:normal Review of Imaging: CT chest abdomen pelvis without contrast Result Date: 01/27/2023 [facility] 1955 [id number] Exam Date/Time: 01/27/2023 20:48 Procedure: CT CHEST ABDOMEN PELVIS WO CONTRAST Ordering Provider: INMAN DOUGLAS Reason For Exam: trauma EXAM: CT Chest, Abdomen, and Pelvis INDICATION: Trauma, fall COMPARISON: none TECHNIQUE: CT of the chest, abdomen, and pelvis was performed without intravenous contrast. Coronal and sagittal reformats were obtained. Dose reduction was employed with automated exposure control. FINDINGS: LUNG AND LARGE AIRWAYS: Central airways are patent. There is biapical pleural-parenchymal scarring. No pulmonary mass or consolidation.. PLEURA: within normal limits. VESSELS: Atherosclerotic changes in the aorta and coronary arteries. HEART: normal size. No pericardial effusion. MEDIASTINUM AND MAXIM: No mediastinal or bulky hilar lymphadenopathy. CHEST WALL AND LOWER NECK: within normal limits. ABDOMEN: LIVER: within normal limits. BILE DUCTS: normal caliber. GALLBLADDER: No calcified gallstones. Normal caliber wall. PANCREAS: within normal limits. SPLEEN: within normal limits. ADRENALS: within normal limits. KIDNEYS: There is an exophytic cyst in the upper pole the right kidney measuring up to 1.1 cm. No renal calculi or hydronephrosis. PELVIS: REPRODUCTIVE ORGANS: no pelvic masses. URETERS: within normal limits. BLADDER: within normal limits. BOWEL: Normal caliber. Few scattered colonic diverticula. Appendix is nondilated. No enlarged mesenteric lymph nodes. PERITONEUM: No ascites or free air. No fluid collection. VESSELS: Within normal limits. LYMPH NODES: No enlarged nodes. RETROPERITONEUM: within normal limits. ABDOMINAL WALL: within normal limits. BONES: There are subacute to chronic right second through 11th anterolateral rib fractures and third through ninth anterolateral left rib fractures. 1. Bilateral subacute to chronic rib fracture deformities. No acute rib fractures. 2. No acute traumatic injury in the chest, abdomen, or pelvis. Report Dictated on Electronically Signed By: Raymond Khanna Electronically Signed Date/Time: 01/27/2023 9:[address] cervical spine wo IV contrast Result Date: 01/27/2023 Patient Name: PA HUNT : 1955 Exam Date/Time: 01/27/2023 20:48 Procedure: CT CERVICAL SPINE WO IV CONTRAST Ordering Provider: INMAN DOUGLAS Reason For Exam: Trauma EXAMINATION: CT CERVICAL SPIN (more content not included)... Normal [facility] ABO and Rh group Confirm Nom (Bld)on 01-27-2023 ABO group Nom (Bld) O [facility] D Ag Ql (RBC) Positive [facility] Basic metabolic 1998 panelon 01-27-2023 Anion gap [Moles/Vol] 11 mmol/L 3 - 13 mmol/L [facility] Calcium [Mass/Vol] 7.9 mg/dL Low 8.4 - 10. 4 mg/dL [facility] Chloride [Moles/Vol] 101 mmol/L 98 - 10 7 mmol/L [facility] CO2 [Moles/Vol] 17 mmol/L Low 22 - 30 mmol/L [facility] Creatinine [Mass/Vol] 0.92 mg/dL 0.66 - 1.25 mg/dL [facility] GFR/1.73 sq M.predicted MDRD (S/P/Bld) [Vol rate/Area] - PINF [facility] Comment on above: Calculation based on the Chronic Kidney Disease Epidemiology Collaboration (CKD-EPI) equation refit without adjustment for race Glucose [Mass/Vol] 43 mg/dL Critically low 70 - 10 0 mg/dL [facility] Interpretation and review of laboratory results Abnormal [facility] Potassium [Moles/Vol] 4.1 mmol/L 3.5 - 5.1 mmol/L [facility] Sodium [Moles/Vol] 129 mmol/L Low 135 - 145 mmol/L [facility] Urea nitrogen [Mass/Vol] 5 mg/dL Low 9 - 20 mg/dL [facility] Slightly Hemolyzed. Interpret POTASSIUM with caution. [facility] Blood type and Crossmatch toni carmen (Bld)on 01-27-2023 ABO group Nom (Bld) O [facility] Blood group antibody screen GEL Ql Negative [facility] D Ag Ql (RBC) Positive [facility] CBC W Auto Differential pane l (Bld)Ordered By: Lisa Villagran on 01-27-2023 Basophils (Bld) [#/Vol] 0.1 10*3/uL 0.0 - 0.2 10*3/uL [facility] Basophils/100 WBC (Bld) 0.8 % 0.0 - 2.0 % [facility] Eosinophils (Bld) [#/Vol] 0.0 10*3/uL 0.0 - 0.5 10*3/uL [facility] Eosinophils/100 WBC (Bld) 0.0 % Low 1.0 - 6.0 % [facility] Erythrocyte distribution width (RBC) [Ratio] 14.9 % High 11.5 - 14.5 % [facility] Hematocrit (Bld) [Volume fraction] 31.8 % Low 40.0 - 52.0 % [facility] Hemoglobin (Bld) [Mass/Vol] 10.9 g/dL Low 13.0 - 18.0 g/dL [facility] Interpretation and review of laboratory results Abnormal [facility] Lymphocytes (Bld) [#/Vol] 0.9 10*3/uL Low 1.0 - 4.3 10*3/uL [facility] Lymphocytes/100 WBC (Bld) 11.0 % Low 20.0 - 40.0 % [facility] MCH (RBC) [Entitic mass] 32.0 pg 26.0 - 34.[address] [facility] MCHC (RBC) [Mass/Vol] 34.1 % 32.0 - 36.0 % [facility] MCV (RBC) [Entitic vol] 93.6 fL 80.0 - 98.[address] [facility] Monocytes (Bld) [#/Vol] 0.6 10*3/uL 0.0 - 0.8 10*3/uL [facility] Monocytes/100 WBC (Bld) 7.3 % 2.0 - 10.0 % [facility] Neutrophils (Bld) [#/Vol] 6.8 10*3/uL 1.8 - 7.0 10*3/uL [facility] Neutrophils/100 WBC (Bld) 80.9 % High 40.0 - 80.0 % [facility] Nucleated RBC/100 WBC (Bld) [Ratio] 0.0 % [facility] Platelet mean volume (Bld) [Entitic vol] 7.2 fL Low 7.4 - 12.[address] [facility] Platelets (Bld) [#/Vol] 353 10*3/uL 140 - 440 10*3/uL [facility] RBC (Bld) [#/Vol] 3.40 10*6/uL Low 4.40 - 5.9 0 10*6/uL [facility] WBC (Bld) [#/Vol] 8.4 10*3/uL 3.6 - 10.7 10*3/uL [facility] CT Abdomen and Pelvis WO and W contrast Terrie 01-27-2023 1. Bilateral subacute to chronic rib fracture deformities. No acute rib fractures. 2. No acute traumatic injury in the chest, abdomen, or pelvis. Report Dictated on Electronically Signed By: Raymond Khanna Electronically Signed Date/Time: 01/27/2023 9:16 PM EDT [employer] [facility] 1955 [id number] Exam Date/Time: 01/27/2023 20:48 Procedure: CT CHEST ABDOMEN PELVIS WO CONTRAST Ordering Provider: INMAN DOUGLAS Reason For Exam: trauma EXAM: CT Chest, Abdomen, and Pelvis INDICATION: Trauma, fall COMPARISON: none TECHNIQUE: CT of the chest, abdomen, and pelvis was performed without intravenous contrast. Coronal and sagittal reformats were obtained. Dose reduction was employed with automated exposure control. FINDINGS: LUNG AND LARGE AIRWAYS: Central airways are patent. There is biapical pleural-parenchymal scarring. No pulmonary mass or consolidation.. PLEURA: within normal limits. VESSELS: Atherosclerotic changes in the aorta and coronary arteries. HEART: normal size. No pericardial effusion. MEDIASTINUM AND MAXIM: No mediastinal or bulky hilar lymphadenopathy. CHEST WALL AND LOWER NECK: within normal limits. ABDOMEN: LIVER: within normal limits. BILE DUCTS: normal caliber. GALLBLADDER: No calcified gallstones. Normal caliber wall. PANCREAS: within normal limits. SPLEEN: within normal limits. ADRENALS: within normal limits. KIDNEYS: There is an exophytic cyst in the upper pole the right kidney measuring up to 1.1 cm. No renal calculi or hydronephrosis. PELVIS: REPRODUCTIVE ORGANS: no pelvic masses. URETERS: within normal limits. BLADDER: within normal limits. BOWEL: Normal caliber. Few scattered colonic diverticula. Appendix is nondilated. No enlarged mesenteric lymph nodes. PERITONEUM: No ascites or free air. No fluid collection. VESSELS: Within normal limits. LYMPH NODES: No enlarged nodes. RETROPERITONEUM: within normal limits. ABDOMINAL WALL: within normal limits. BONES: There are subacute to chronic right second through 11th anterolateral rib fractures and third through ninth anterolateral left rib fractures. [facility] [employer] Raymond Khanna MD - 01/27/2023 [facility]: [facility] 1955 [id number] Exam Date/Time: 01/27/2023 20:48 Procedure: CT CHEST ABDOMEN PELVIS WO CONTRAST Ordering Provider: INMAN DOUGLAS Reason For Exam: trauma EXAM: CT Chest, Abdomen, and Pelvis INDICATION: Trauma, fall COMPARISON: none TECHNIQUE: CT of the chest, abdomen, and pelvis was performed without intravenous contrast. Coronal and sagittal reformats were obtained. Dose reduction was employed with automated exposure control. FINDINGS: LUNG AND LARGE AIRWAYS: Central airways are patent. There is biapical pleural-parenchymal scarring. No pulmonary mass or consolidation.. PLEURA: within normal limits. VESSELS: Atherosclerotic changes in the aorta and coronary arteries. HEART: normal size. No pericardial effusion. MEDIASTINUM AND MAXIM: No mediastinal or bulky hilar lymphadenopathy. CHEST WALL AND LOWER NECK: within normal limits. ABDOMEN: LIVER: within normal limits. BILE DUCTS: normal caliber. GALLBLADDER: No calcified gallstones. Normal caliber wall. PANCREAS: within normal limits. SPLEEN: within normal limits. ADRENALS: within normal limits. KIDNEYS: There is an exophytic cyst in the upper pole the right kidney measuring up to 1.1 cm. No renal calculi or hydronephrosis. PELVIS: REPRODUCTIVE ORGANS: no pelvic masses. URETERS: within normal limits. BLADDER: within normal limits. BOWEL: Normal caliber. Few scattered colonic diverticula. Appendix is nondilated. No enlarged mesenteric lymph nodes. PERITONEUM: No ascites or free air. No fluid collection. VESSELS: Within normal limits. LYMPH NODES: No enlarged nodes. RETROPERITONEUM: within normal limits. ABDOMINAL WALL: within normal limits. BONES: There are subacute to chronic right second through 11th anterolateral rib fractures and third through ninth anterolateral left rib fractures. IMPRESSION: 1. Bilateral subacute to chronic rib fracture deformities. No acute rib fractures. 2. No acute traumatic injury in the chest, abdomen, or pelvis. Report Dictated on Electronically Signed By: Raymond Khanna Electronically Signed Date/Time: 01/27/2023 9:[address] [facility] [address] Abdomen and Pelvis WO and W contrast IVOrdered By: Raymond Khanna on 01-27-2023 [employer] Work Phone: CT CERVICAL SPINE WO IV CONT [facility] 01-27-2023 CT CERVICAL SPINE WO IV CONTRAST Patient Name: PA HUNT : 1955 Exam Date/Time: 01/27/2023 20:48 Procedure: CT CERVICAL SPINE WO IV CONTRAST Ordering Provider: INMAN DOUGLAS Reason For Exam: Trauma EXAMINATION: CT CERVICAL SPINE WO IV CONTRAST CLINICAL HISTORY: Trauma COMPARISON: None TECHNIQUE: Thin isotropic axial images were obtained from the skull base to the upper thoracic spine without intravenous contrast. Dose reduction was employed with automated exposure control. FINDINGS: Craniocervical Junction: Normal alignment. Alignment: Anatomic Vertebrae: No acute fracture or traumatic malalignment. No aggressive osseous lesions. Soft Tissues: No acute abnormality. Canal and Foramina: Moderate multilevel cervical spondylosis without critical spinal canal stenosis. IMPRESSION: No acute cervical spine fracture or traumatic malalignment. Report Dictated on Electronically Signed By: Junior Vera Electronically Signed Date/Time: 01/27/2023 8:55 PM EDT ETOH, fell and hit head, large frontal contusion and laceration ETOH, pt would not hold still or follow instructions during exam Normal [facility] CHEST ABDOMEN PELVIS WO CONTRAST Patient Name: PA HUNT : 1955 Exam Date/Time: 01/27/2023 20:48 Procedure: CT CHEST ABDOMEN PELVIS WO CONTRAST Ordering Provider: INMAN DOUGLAS Reason For Exam: trauma EXAM: CT Chest, Abdomen, and Pelvis INDICATION: Trauma, fall COMPARISON: none TECHNIQUE: CT of the chest, abdomen, and pelvis was performed without intravenous contrast. Coronal and sagittal reformats were obtained. Dose reduction was employed with automated exposure control. FINDINGS: LUNG AND LARGE AIRWAYS: Central airways are patent. There is biapical pleural-parenchymal scarring. No pulmonary mass or consolidation.. PLEURA: within normal limits. VESSELS: Atherosclerotic changes in the aorta and coronary arteries. HEART: normal size. No pericardial effusion. MEDIASTINUM AND MAXIM: No mediastinal or bulky hilar lymphadenopathy. CHEST WALL AND LOWER NECK: within normal limits. ABDOMEN: LIVER: within normal limits. BILE DUCTS: normal caliber. GALLBLADDER: No calcified gallstones. Normal caliber wall. PANCREAS: within normal limits. SPLEEN: within normal limits. ADRENALS: within normal limits. KIDNEYS: There is an exophytic cyst in the upper pole the right kidney measuring up to 1.1 cm. No renal calculi or hydronephrosis. PELVIS: REPRODUCTIVE ORGANS: no pelvic masses. URETERS: within normal limits. BLADDER: within normal limits. BOWEL: Normal caliber. Few scattered colonic diverticula. Appendix is nondilated. No enlarged mesenteric lymph nodes. PERITONEUM: No ascites or free air. No fluid collection. VESSELS: Within normal limits. LYMPH NODES: No enlarged nodes. RETROPERITONEUM: within normal limits. ABDOMINAL WALL: within normal limits. BONES: There are subacute to chronic right second through 11th anterolateral rib fractures and third through ninth anterolateral left rib fractures. IMPRESSION: 1. Bilateral subacute to chronic rib fracture deformities. No acute rib fractures. 2. No acute traumatic injury in the chest, abdomen, or pelvis. Report Dictated on Electronically Signed By: Raymond Khanna Electronically Signed Date/Time: 01/27/2023 9:16 PM EDT ETOH, fell and hit head, large frontal contusion and laceration ETOH, pt would not hold still or follow instructions during exam Normal [facility] CT Cervical spine WO contras ton 01-27-2023 No acute cervical spine fracture or traumatic malalignment. Report Dictated on Electronically Signed By: Junior Vera Electronically Signed Date/Time: 01/27/2023 8:55 PM EDT [facility] Patient Name: PA HUNT : 1955 [facility]#: [id number] Exam Date/Time: 01/27/2023 20:48 Procedure: CT CERVICAL SPINE WO IV CONTRAST Ordering Provider: INMAN DOUGLAS Reason For Exam: Trauma EXAMINATION: CT CERVICAL SPINE WO IV CONTRAST CLINICAL HISTORY: Trauma COMPARISON: None TECHNIQUE: Thin isotropic axial images were obtained from the skull base to the upper thoracic spine without intravenous contrast. Dose reduction was employed with automated exposure control. FINDINGS: Craniocervical Junction: Normal alignment. Alignment: Anatomic Vertebrae: No acute fracture or traumatic malalignment. No aggressive osseous lesions. Soft Tissues: No acute abnormality. Canal and Foramina: Moderate multilevel cervical spondylosis without critical spinal canal stenosis. [facility] Junior Vera M D - 01/27/2023 Patient Name: PA HUNT : 1955 Exam Date/Time: 01/27/2023 20:48 Procedure: CT CERVICAL SPINE WO IV CONTRAST Ordering Provider: INMAN DOUGLAS Reason For Exam: Trauma EXAMINATION: CT CERVICAL SPINE WO IV CONTRAST CLINICAL HISTORY: Trauma COMPARISON: None TECHNIQUE: Thin isotropic axial images were obtained from the skull base to the upper thoracic spine without intravenous contrast. Dose reduction was employed with automated exposure control. FINDINGS: Craniocervical Junction: Normal alignment. Alignment: Anatomic Vertebrae: No acute fracture or traumatic malalignment. No aggressive osseous lesions. Soft Tissues: No acute abnormality. Canal and Foramina: Moderate multilevel cervical spondylosis without critical spinal canal stenosis. IMPRESSION: No acute cervical spine fracture or traumatic malalignment. Report Dictated on Electronically Signed By: Junior Vera Electronically Signed Date/Time: 01/27/2023 8:55 PM EDT [facility] CT HEAD WO IV CONTRASTon CT HEAD WO IV CONTRAST Patient Name: PA HUNT : 1955 Exam Date/Time: 01/27/2023 20:48 Procedure: CT HEAD WO IV CONTRAST Ordering Provider: INMAN DOUGLAS Reason For Exam: Trauma CT HEAD WITHOUT CONTRAST CLINICAL HISTORY: Trauma COMPARISON: None TECHNIQUE: Helical CT of the brain without contrast. Dose reduction was employed with automated exposure control. FINDINGS: Acute Findings: No hemorrhage, mass, or infarct. Chronic Changes: None identified. Ventricles and sulci: Within normal limits for age. Other: Scalp hematoma. No underlying calvarial fracture. IMPRESSION: No intracranial traumatic injuries. Report Dictated on Electronically Signed By: Junior Vera Electronically Signed Date/Time: 01/27/2023 8:52 PM EDT ETOH, fell and hit head, large frontal contusion and laceration ETOH, pt would not hold still or follow instructions during exam Normal [facility] CT Head WO contraston 2022 No intracranial traumatic injuries. Report Dictated on Electronically Signed By: Junior Vera Electronically Signed Date/Time: 01/27/2023 8:52 PM EDT [facility] Patient Name: PA HUNT : 1955 Exam Date/Time: 01/27/2023 20:48 Procedure: CT HEAD WO IV CONTRAST Ordering Provider: INMAN DOUGLAS Reason For Exam: Trauma CT HEAD WITHOUT CONTRAST CLINICAL HISTORY: Trauma COMPARISON: None TECHNIQUE: Helical CT of the brain without contrast. Dose reduction was employed with automated exposure control. FINDINGS: Acute Findings: No hemorrhage, mass, or infarct. Chronic Changes: None identified. Ventricles and sulci: Within normal limits for age. Other: Scalp hematoma. No underlying calvarial fracture. [facility] Junior Vera M D - 01/27/2023 Patient Name: PA HUNT : 1955 Exam Date/Time: 01/27/2023 20:48 Procedure: CT HEAD WO IV CONTRAST Ordering Provider: INMAN DOUGLAS Reason For Exam: Trauma CT HEAD WITHOUT CONTRAST CLINICAL HISTORY: Trauma COMPARISON: None TECHNIQUE: Helical CT of the brain without contrast. Dose reduction was employed with automated exposure control. FINDINGS: Acute Findings: No hemorrhage, mass, or infarct. Chronic Changes: None identified. Ventricles and sulci: Within normal limits for age. Other: Scalp hematoma. No underlying calvarial fracture. IMPRESSION: No intracranial traumatic injuries. Report Dictated on Electronically Signed By: Junior Vera Electronically Signed Date/Time: 01/27/2023 8:[address] [facility] CT Head WO contrastOrdered B y: Junior Vera on 01-27-2023 [facility] Work Phone: ED Nursing Noteon 01-27-2023 ED Nursing Note Bed: 18 Expected date: Expected time: Means of arrival: Comments: 76 Marlene Huggins RN 01/27/232106 Normal [facility] ED Nursing Note Renetta Carlos RN RN spent 25 total minutes providing direct, [id number] critical care to the patient for: Interventions [] Administration of ACLS drugs in cardiac arrest [] Arterial Line Insertion [] Central Line Insertion [] Chest Tube Insertion [] CPR [] Defibrillation [] Intubation [] Therapeutic hypothermia [] Pericardiocentesis [] Ventilator Management [] Other: ( if checked, please document in ED NOTE below) Medications: [] Infusions of Vasoactive medications [] adenosine [] nitroglycerin [] dopamine [] norepiniphrine [] labetalol [] sodium nitroprusside [] metoprolol [] Multiple IV medications which require constant monitoring [] amiodarone [] Ephedrine sulphate [] digoxin [] adrenaline [] dobutamine [] Hydralazine hydrochloride [] hydrochloride [] Insulin Drip Documentation of the following Teams: [] Surgical Team [x] Trauma Team [] Stroke Team [] STEMI Team Documentation of the Following Conditions: [] Abdominal aneurysm (Rupture or dissection) [] Acute Myocardial Infarction [] Acute Renal Failure [] Conscious Sedation [] Central Nervous System Failure [] Cerebral Hemorrhage [] Circulatory Failure [] DKA [] Drug Overdose impairing vital function (respiratory, cardiac) [] Respiratory Failure [] Sepsis [] Shock Circulatory Failure [] Status Epilepticus - intractable seizures ED NOTE: Fall, unwitnessed, with altered mental status Renetta Carlos RN 01/27/232048 Normal [facility] ED Nursing Note Trauma team activate d for this patient brought in by Aby FLOWER s/p unwitnessed fall with altered mental status. Positive ETOH. See trauma narrator for details of encounter. Normal [facility] ED Provider Noteon ED Provider Note EMERGENCY DEPARTMENT ENCOUNTER Pt Name: Messi Waldrop Gilbert Birthdate 1955 Date of evaluation: 01/27/2023 ED Provider: CLIFTON MAHMOOD MD CHIEF COMPLAINT Chief Complaint Patient presents with Fall Trauma team fall with AMS, etoh HISTORY OF PRESENT ILLNESS (Location/Symptom, Timing/Onset, Context/Setting, Quality, Duration, Modifying Factors, Severity) Note limiting factors. I wore appropriate PPE for the entirety of this encounter. HPI Messi Waldrop is a 68 y.o. who presents to the emergency department for follow-up. Patient was found down with a presumed fall. Unknown what patient's last known well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 SCANNED % [facility] Comment on above: LYMPHOPENIA Basophil percentageOrdered B y: Dr. Dailey on 12-21-2022 Ammonia (P) [Moles/Vol] 43.0 umol/L 11-32 [facility] Blood manual differential co mment interpretation (narrative result)Ordered By: Dr. Dailey on 12-21-2022 Manual differential comment Jeffery (Bld) [Interp] SCANNED [facility] Hypochromatic red blood cell detectionOrdered By: Dr. Dailey on 12-21-2022 Hypochromia Ql (Bld) 2+ [facility] Laboratory - Chemistry and C hemistry - challengeOrdered By: Dr. Dailey on 12-21-2022 Cobalamin (Vitamin B12) [Mass/Vol] 490 pg/mL 211-911 [facility] Serum Treponema species anti body detectionOrdered By: Dr. Dailey on 12-21-2022 Treponema sp Ab Ql (S) Non-Reactive [facility] Serum or plasma folate measu rement (mass/volume)Ordered By: Dr. Dailey on 12-21-2022 Folate [Mass/Vol] 7.10 ng/mL 3.1-55.4 [facility] Laboratory - Hematology and Cell countsOrdered By: Dr. Souza on 12-19-2022 Anisocytosis Ql (Bld) 1+ [facility] Blood platelet adequacy dete ction by light microscopyOrdered By: Dr. Souza on 12-17-2022 Platelets LM Ql (Bld) ADEQUATE ADEQ [facility] Laboratory - Chemistry and C hemistry - challengeOrdered By: Dr. Souza on 12-17-2022 Magnesium [Mass/Vol] 2.1 mg/dL 1.6-2.6 [facility] Macrocytes detectionOrdered By: Dr. Souza on 12-17-2022 Macrocytes Ql (Bld) 1+ [facility] Laboratory - Chemistry and C hemistry - challengeOrdered By: Dr. Souza on 12-16-2022 Free T4 [Mass/Vol] 1.03 ng/dL 0.76-1.46 [facility] No Panel InformationOrdered By: Dr. Souza on 12-16-2022 Free Triiodothyronine (T3) pg/dL 0.9 pg/mL 2.18-3.98 [facility] No Panel InformationOrdered By: Dr. Souza on 12-15-2022 Thyroid Stimulating Hormone (TSH) 0.35 uIU/mL 0.358-3.74 [facility] INR in Blood by Coagulation assayOrdered By: Dr. Souza on 12-14-2022 INR Coag (Bld) [Relative time] 1.1 {INR} [facility] Laboratory - CoagulationOrde red By: Dr. Souza on 12-14-2022 PT Coag (PPP) [Time] 13.9 s 11.7-14.9 [facility] Laboratory - Microbiology an d Antimicrobial susceptibilityOrdered By: Dr. Guerrero on 12-13-2022 Respiratory pathogens DNA and RNA 12b panel ANNIA+probe (Unsp spec) [facility] Basophil percentageOrdered B y: Dr. Miles on 12-12-2022 Basophil percentage 0 SEEN /hpf 0-5 [facility] Lactate [Moles/Vol] 1.5 mmol/L 0.4-2.0 [facility] Basophil percentageOrdered B y: Dr. Guerrero on 12-12-2022 Basophil percentage 2.8 mg/dL 2.5-4.9 [facility] Bilirubin Test strip Ql (U)O rdered By: Dr. Miles on 12-12-2022 Bilirubin Ql (U) Negative Negative [facility] Direct bilirubinOrdered By: Dr. Miles on 12-12-2022 Bilirubin.direct [Mass/Vol] 0.08 mg/dL 0.00-0.30 [facility] Ketones Test strip Ql (U)Ord ered By: Dr. Miles on 12-12-2022 Ketones Ql (U) 5 mg/dl Negative [facility] Laboratory - Chemistry and C hemistry - challengeOrdered By: Dr. Miles on 12-12-2022 Lipase [Catalytic activity/Vol] 32 U/L 13-75 [facility] Comment on above: Please note:LIPASE r evised reference range effective 22. New Lipase methodology. Expected to produce lower values than the previous assay method. NEW Reference Range: 13 - 75 U/L Laboratory - Drug toxicology Ordered By: Dr. Miles on 12-12-2022 Amphetamines Ql (U) Negative <1000 ng/mL [facility] Benzodiazepines Ql (U) Negative < 200 ng/mL [facility] Cannabinoids Screen Ql (U) Negative < 50 ng/mL [facility] Cocaine Ql (U) Negative < 300 ng/mL [facility] Opiates Ql (U) Negative < 300 ng/mL [facility] Laboratory - Microbiology an d Antimicrobial susceptibilityOrdered By: Natty Guerrero on 12-12-2022 Respiratory pathogens DNA and RNA 12b panel ANNIA+probe (Unsp spec) [facility] Lower GI hemoglobin IA Ql (S tl)Ordered By: Kelechi Miles on 12-12-2022 Stool Occult Blood (VENKATA) Positive [facility] Lower GI hemoglobin IA Ql (S tl)Ordered By: Dr. Miles on 12-12-2022 Stool Occult Blood (VENKATA) Positive [facility] Mucus LM Ql (Urine sed)Order ed By: Dr. Miles on 12-12-2022 Mucus Ql (Urine sed) 0 SEEN /hpf [facility] Nitrite Test strip Ql (U)Ord ered By: Dr. Miles on 12-12-2022 Nitrite Ql (U) Negative Negative [facility] No Panel InformationOrdered By: Dr. Miles on 12-12-2022 MDMA (Ecstasy) Screen Negative < 500 ng/mL [facility] Urine Barbiturates Screen Negative < 200 ng/mL [facility] Urine Drug Screen Comment [facility] Comment on above: CONFIRMATORY TESTING FOR ALL POSITIVE URINE DRUG SCREENRESULTS WILL ONLY BE SENT OUT UPON PHYSICIAN ORDER. VISTA Urine Drug Screen methods provide only preliminaryanalytical test results. A more specific alternate chemicalmethod must be used in order to obtain a confirmedanalytical result. Gas chromatography/mass spectrometery(GC/MS) is the preferred confirmatory method. Clinicalconsideration and professional judgement should be appliedto any drug of abuse test result, particularly whenpreliminary positive results are used. URINE TCA TESTING MUST BE ORDERED SEPARATELY. USE TESTMNEMONIC: [facility] Urine Methadone Screen Negative < 300 ng/mL [facility] Ethyl Alcohol Level 22.0 mg/dL [facility] Comment on above: The serum:whole bloo d ethanol ratio is approximately 1.14and varies slightly with hematocrit. Medical Alcohol reference interval and critical value innon-tolerant individuals; 50 - 100 Impairment 100 Intoxication 100 - 250 Severe Poisoning 250 - 400 Deep/possible fatal coma Troponin I High Sensitivity 22 pg/mL 3.0-78.0 [facility] Comment on above: Please Note: [place] t Units and Gender Specific Reference Ranges. For more information see Policy Stat Procedure [place] High Sensitivity Troponin (TNIH) and attachments. Protein Test strip Ql (U)Ord ered By: Dr. Miles on 12-12-2022 Protein Ql (U) 15 mg/dl Negative [facility] Squamous epithelial cells de tection in urine sediment by light microscopyOrdered By: Dr. Miles on 12-12-2022 Epithelial cells.squamous LM Ql (Urine sed) 0 SEEN /hpf 0-5 [facility] Urine blood detectionOrdered By: Dr. Miles on 12-12-2022 RBC Ql (U) Negative Negative [facility] RBC Ql (U) 0 SEEN /hpf 0-5 [facility] Urine clarityOrdered By: Dr. Miles on 12-12-2022 Clarity (U) Clear Clear [facility] Urine color determinationOrd ered By: Dr. Miles on 12-12-2022 Color (U) Yellow Yellow [facility] Urine glucose detectionOrder ed By: Dr. Miles on 12-12-2022 Glucose Ql (U) Normal mg/dl Normal [facility] Urine leukocyte esterase det ection by dipstickOrdered By: Dr. Miles on 12-12-2022 Leukocyte esterase Test strip Ql (U) Negative Negative [facility] Urine pHOrdered By: Dr. Ubaldo bhardwaj on 12-12-2022 pH (U) 7.0 [pH] 5.0 - 8.0 [facility] Urine phencyclidine (PCP) de tectionOrdered By: Dr. Miles on 12-12-2022 Phencyclidine Ql (U) Negative < 25 ng/mL [facility] Urine sediment bacteria coun t by microscopy (number/high power field)Ordered By: Dr. Miles on 12-12-2022 Bacteria LM.HPF (Urine sed) [#/Area] RARE /hpf None Seen [facility] Urine specific gravity measu rementOrdered By: Dr. Miles on 12-12-2022 Specific gravity (U) [Rel density] 1.005 1.002-1.030 [facility] Urobilinogen Auto test strip Ql (U)Ordered By: Dr. Miles on 12-12-2022 Urobilinogen Ql (U) 1 mg/dl Normal [facility] XR Chest 2 Viewson Negative chest. Report Dictated on Workstation: [id number] Electronically Signed By: Néstor Correa Electronically Signed Date/Time: 10/11/2022 4:29 PM EDT [facility] Patient Name: Ty WALDROP : 1955 Exam Date/Time: 10/11/2022 16:22 Procedure: XR CHEST 2 VIEWS Ordering Provider: SPRINGER CATHERINE Reason For Exam: COPD, exacerbation CHEST, PA & LATERAL: INDICATION: COPD COMPARISON: No previous studies are available for comparison. PA and lateral views of the chest were obtained. The heart is normal in size. The mediastinal silhouette is normal. The lungs are hyperinflated with flattened hemidiaphragms. There are no effusions or infiltrates. There is no pleural thickening. The osseous structures are unremarkable. [facility] Néstor Correa DO - 10/11/2022 Patient Name: MESSI WALDROP : 1955 Exam Date/Time: 10/11/2022 16:22 Procedure: XR CHEST 2 VIEWS Ordering Provider: SPRINGER CATHERINE Reason For Exam: COPD, exacerbation CHEST, PA & LATERAL: INDICATION: COPD COMPARISON: No previous studies are available for comparison. PA and lateral views of the chest were obtained. The heart is normal in size. The mediastinal silhouette is normal. The lungs are hyperinflated with flattened hemidiaphragms. There are no effusions or infiltrates. There is no pleural thickening. The osseous structures are unremarkable. IMPRESSION: Negative chest. Report Dictated on Workstation: [id number] Electronically Signed By: Néstor Correa Electronically Signed Date/Time: 10/11/2022 4:29 PM EDT [facility] Radiology Study observation (narrative) [facility] XR Chest 2 ViewsOrdered By: Néstor Correa on 10-11-2022 [facility] Work Phone: Radiation Onc F/U Noteon Radiation Onc F/U Note [facility] [place] [facility] Radiation Oncology RADIATION ONCOLOGY FOLLOW UP PATIENT: Messi Waldrop DATE OF SERVICE: 05/30/2021 [facility] : 1955 AGE: 66 PRIMARY SITE: Mr. 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 STAGE: T2 N1 M0, p16+; I INTERVAL SINCE RADIATION: 07/31 months 04/20/20 - 06/18/20: 70.00/70.00 Gy to the R Tonsil PTV in 35 fractions of 2.00 Gy using the VMAT/Daily IGRT technique with 6 MV over 59 days. INTERVAL HISTORY: Mr. Waldrop was last seen by me in November 2020. In the interim, he continues to do quite well. He denies mucositis related pain or secretions. He denies dysgeusia. He reports significantly improved xerostomia. He is eating a full diet, including meat and bread. His weight has plateaued, and he is happy with where he is at. He denies any new palpable abnormalities. He continues to follow-up with Dr. Steiner, with no evidence of recurrent or progressive disease on flexible laryngoscopy. PHYSICAL EXAMINATION: VITALS: Temperature 98.1 F (05/30/21), Pulse 96 (05/30/21), Respirations 20 (05/30/21), Blood Pressure 154/81 (05/30/21), Oxygen Saturation 99% (05/30/21), Weight 186.6 pounds 05/30/21 GENERAL: No acute distress alert and oriented x3. LUNGS: Clear to auscultation bilaterally. HEART: Regular rate and rhythm. NECK: Symmetric. No thyroid nodule. No palpable lymphadenopathy. HEAD AND NECK: Oral without mass or ulceration. Good tongue movement. Dentition without major issue. No exudate or thrush. Atraumatic, normocephalic. No visualized or palpable abnormalities appreciated. IMPRESSION: Mr. Waldrop is a 66-year-old gentleman who presents with a right tonsil squamous cell carcinoma, p16 positive, status post definitive concurrent chemoradiation with excellent clinical response, and no evidence of recurrent or progressive disease. He is clinically well, and his ECOG performance status is 0. PLAN: 1. Draw TSH today as part of surveillance. 2. Follow-up with Dr. Steiner and Dr. Leavitt as scheduled. 3. Follow-up in my clinic in approximately 1 years time. I spent 20 minutes on this encounter, including imaging and chart review as well as counseling and providing discussion regarding Mr. Waldrop's history of head and neck malignancies. Thank you for involving me in the care of Mr. Waldrop. Should any questions or concerns arise, please feel free to contact me. Jani Suggs MD Electronically signed by: Jani Suggs MD , T: 1:53 PM CC: Hilaria Steiner MD, Michelle Leavitt DO, John Springer MD [facility] Department of Radiation Oncology is an Accredited Facility of the [employer] (ACR). This document was completed utilizing speech recognition software. Grammatical errors, random word insertions, pronoun errors, and incomplete sentences are an occasional consequence of this system due to software limitations, ambient noise, and hardware issues. Any formal questions or concerns about the content, text or information contained within the body of this dictation should be directly addressed to the provider for clarification. PATIENT: Messi Waldrop : 1955 cc: Hilaria Steiner D.O. [address] [place] [address] Michelle Leavitt DO [address] [facility] [address] John Springer MD [facility] [address] [facility] [id number] Normal [facility] TSH without ReflexOrdered By : Jani Suggs on 05-30-2021 TSH Qn 2.373 u[IU]/mL 0.465 - 4.680 u[IU]/mL [facility] Work Phone: Test Performed by [facility], [address] [place] [id number] [facility] Work Phone: [facility] Work Phone: Thyroid Stim. Hormoneon 11-0 Thyroid Stim. Hormone 2.373 u[IU]/mL Normal 0.465-4.68 0 [facility] Comment on above: Performed By: #### T SH5 #### [facility] [address] [id number] Radiation Onc F/U Noteon Radiation Onc F/U Note [facility] [place] [facility] Radiation Oncology RADIATION ONCOLOGY FOLLOW UP PATIENT: Messi Waldrop DATE OF SERVICE: 12/21/2020 [facility] : 1955 AGE: 65 PRIMARY SITE: Mr. 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 STAGE: T2 N1 M0; I INTERVAL SINCE RADIATION: 6 months 04/20/20 - 06/18/20: 70.00/70.00 Gy to the R Tonsil PTV in 35 fractions of 2.00 Gy using the VMAT/Daily IGRT technique with 6 MV over 59 days. INTERVAL HISTORY: Mr. Waldrop was last seen by me in September 2020. In the interim, he continues to do quite well. He reports resolution of his mucositis related pain and secretions. He denies dysgeusia. He reports improving xerostomia. He is eating a full diet, including meat and bread. His weight has plateaued and he is happy with where it is at. He denies any new palpable abnormalities. He was seen by Dr. Steiner with no evidence of recurrent or progressive disease on flexible laryngoscopy. When last seen by me, PET CT scan had equivocal findings in the spine as well as the head and neck. We coordinated for an MRI spine, which was negative. We did coordinate for repeat PET CT scan, but his insurance company denied it. PHYSICAL EXAMINATION: GENERAL: No acute distress alert and oriented x3. LUNGS: Clear to auscultation bilaterally. HEART: Regular rate and rhythm. NECK: Symmetric. No thyroid nodule. No palpable lymphadenopathy. HEAD AND NECK: Oral without mass or ulceration. Good tongue movement. Dentition without major issue. No exudate or thrush. Atraumatic, normocephalic. No visualized or palpable abnormalities appreciated. NEURO: No focal motor or sensory deficits appreciated, cranial nerves II through XII grossly intact. PSYCH: Appropriate affect, goal oriented speech. IMPRESSION: Mr. Waldrop is a 65-year-old gentleman who presents with a right tonsil squamous cell carcinoma, p16 positive, status post definitive concurrent chemoradiation with excellent clinical response, and no evidence of recurrent or progressive disease. He is clinically well, and his ECOG performance status is zero. PLAN: 1. Follow-up with Dr. Steiner and Dr. Leavitt as scheduled. 2. TSH surveillance going forward. 3. Follow-up in my clinic in approximately 6 months time. I spent 20 minutes on this encounter, including imaging and chart review as well as counseling and providing discussion regarding Mr. Waldrop's history of head and neck malignancy. Thank you for involving me in the care of Mr. Waldrop. Should any questions or concerns arise, please feel free to contact me. Jani Suggs MD Electronically signed by: Jani Suggs MD , T: 2:02 PM CC: Hilaria Steiner MD, Michelle Leavitt DO, Jhon Springer MD The [facility] Department of Radiation Oncology is an Accredited Facility of the [employer] (ACR). This document was completed utilizing speech recognition software. Grammatical errors, random word insertions, pronoun errors, and incomplete sentences are an occasional consequence of this system due to software limitations, ambient noise, and hardware issues. Any formal questions or concerns about the content, text or information contained within the body of this dictation should be directly addressed to the provider for clarification. PATIENT: Messi Waldrop : 1955 cc: Hilaria Steiner D.O. [address] [address] Michelle Leavitt DO [address] [facility] [id number] John Springer MD [facility] [address] [place] [address] [facility] XR FINGER LEFT (MIN 2 VIEWS) on 10-01-2020 Patient Name: MESSI WALDROP Diagnostic Radiology ACCESSION EXAM DATE/TIME PROCEDURE ORDERING PROVIDER [id number] 10/01/2020 20:29 EST CR Finger(s) Min 2 Views JESSICA NICK Left CPT code 34233 Reason For Exam (CR Finger(s) Min 2 Views Left) small finger attempted reduction Report TWO VIEWS OF THE LEFT FIFTH DIGIT CLINICAL INDICATION: small finger attempted reduction TECHNIQUE: Two views of the left fifth digit. COMPARISON: Earlier today FINDINGS: Lateral and oblique images of the fifth digit show reduction of previously seen PIP joint dislocation. IMPRESSION: 1. Reduction of previously seen dislocation Report Dictated on --- Final --- Dictated: 10/01/2020 8:52 pm Dictating Physician: MD MCCAULEY JOHN R Signed Date and Time: 10/01/2020 8:53 pm Signed by: MD MCCAULEY JOHN R Transcribed Date and Time: 10/01/2020 8:52 [facility] Work Phone: [facility] Incoming Radiology Results From [facility] - 10/01/2020 8:54 PM EST Patient Name: MESSI WALDROP Diagnostic Radiology ACCESSION EXAM DATE/TIME PROCEDURE ORDERING PROVIDER [id number] 10/01/2020 20:29 EST CR Finger(s) Min 2 Views JESSICA NICK Left CPT code 75112 Reason For Exam (CR Finger(s) Min 2 Views Left) small finger attempted reduction Report TWO VIEWS OF THE LEFT FIFTH DIGIT CLINICAL INDICATION: small finger attempted reduction TECHNIQUE: Two views of the left fifth digit. COMPARISON: Earlier today FINDINGS: Lateral and oblique images of the fifth digit show reduction of previously seen PIP joint dislocation. IMPRESSION: 1. Reduction of previously seen dislocation Report Dictated on --- Final --- Dictated: 10/01/2020 8:52 pm Dictating Physician: MD MCCAULEY JOHN R Signed Date and Time: 10/01/2020 8:53 pm Signed by: MD MCCAULEY JOHN R Transcribed Date and Time: 10/01/2020 8:52 [facility] Work Phone: XR HAND LEFT (MIN 3 VIEWS)on 10-01-2020 Patient Name: Ty WALDROP Diagnostic Radiology ACCESSION EXAM DATE/TIME PROCEDURE ORDERING PROVIDER [id number] 10/01/2020 15:49 EST CR Hand Complete 3+ MD MATAMOROS SCOTT N Views Left CPT code 74947 Reason For Exam (CR Hand Complete 3+ Views Left) left pink swelling s/p injury with pain Report Left hand CLINICAL INDICATION: Swelling of left fifth digit following injury. Pain. PA, oblique and lateral views were obtained. Bones are mildly osteopenic. There is dislocation at the proximal interphalangeal joint of the fifth digit with middle phalanx dorsally dislocated relative to the proximal phalanx. No associated fracture is identified. No other acute osseous abnormalities are noted. IMPRESSION: Dorsal dislocation of the middle phalanx of the fifth digit at the proximal interphalangeal joint Report Dictated on --- Final --- Dictated: 10/01/2020 3:50 pm Dictating Physician: MD FLORES DIANE Signed Date and Time: 10/01/2020 3:52 pm Signed by: MD FLORES DIANE Transcribed Date and Time: 10/01/2020 3:50 [facility] Work Phone: [facility] Incoming Radiology Results From [facility] - 10/01/2020 3:54 PM EST Patient Name: MESSI WALDROP Diagnostic Radiology ACCESSION EXAM DATE/TIME PROCEDURE ORDERING PROVIDER [id number] 10/01/2020 15:49 EST CR Hand Complete 3+ MD MATAMOROS SCOTT N Views Left CPT code 52580 Reason For Exam (CR Hand Complete 3+ Views Left) left pink swelling s/p injury with pain Report Left hand CLINICAL INDICATION: Swelling of left fifth digit following injury. Pain. PA, oblique and lateral views were obtained. Bones are mildly osteopenic. There is dislocation at the proximal interphalangeal joint of the fifth digit with middle phalanx dorsally dislocated relative to the proximal phalanx. No associated fracture is identified. No other acute osseous abnormalities are noted. IMPRESSION: Dorsal dislocation of the middle phalanx of the fifth digit at the proximal interphalangeal joint Report Dictated on --- Final --- Dictated: 10/01/2020 3:50 pm Dictating Physician: MD FLORES DIANE Signed Date and Time: 10/01/2020 3:52 pm Signed by: MD FLORES DIANE Transcribed Date and Time: 10/01/2020 3:50 [facility] Work Phone: CT CERVICAL SPINE WO MARCO A Ton 07-22-2020 Patient Name: Ty WALDROP Computed Tomography ACCESSION EXAM DATE/TIME PROCEDURE ORDERING PROVIDER [id number] 07/22/2020 05:[address] Spine Cervical w/o MD HERO, FRANK VILLAFANA Contrast CPT code 98136 Reason For Exam (CT Spine Cervical w/o Contrast) fall Report Clinical indication: Fall. Neck pain. Comparison: PET/CT 04/02/2020 Radiation dose: DLP 632 mGycm Multidetector imaging from skull base through thoracic inlet was performed with axial, coronal and sagittal reconstructions evaluated. There is mild motion artifact. No fracture or spondylolisthesis is noted. Moderate degenerative disc height loss and mild associated endplate degenerative change involves C4-C5. There is mild degenerative disc height loss at C5-C6. Diffuse hypertrophic facet arthropathy is present. On the left the C2-C3 facet is fused. There is streak artifact from dental metal. There is slight asymmetric fullness in the right lateral pharyngeal wall and there are linear densities and distortion in the adjacent right parapharyngeal fat which may be postsurgical in this patient who has a history of tonsillar cancer with surgical removal. This area appears unchanged from the PET/CT. The previous enlarged abnormal level 1B to upper level two lymph node on the right has regressed. Right submandibular gland is asymmetrically larger than the left but appears slightly smaller compared to the prior exam. No definite pathologically enlarged lymph nodes are noted currently. IMPRESSION: No acute osseous abnormality is noted in the cervical spine. Degenerative changes diffusely and facet joints and most severely involving the C4-C5 disc Regression of previous right adenopathy and slightly decreased size of the right submandibular gland since the PET/CT of 04/02/2020. There is asymmetric appearance of the right lateral pharyngeal wall parapharyngeal fat which may be postoperative in nature. Computed Tomography Report Report Dictated on --- Final --- Dictating Physician: MD FLORES DIANE Signed Date and Time: 07/22/2020 5:55 am Signed by: MD FLORES DIANE Transcribed Date and Time: 07/22/2020 5:56 [facility] [place], [place] [facility] Incoming Radiology Results From [facility] - 07/22/2020 5:56 AM EST Patient Name: MESSI WALDROP Computed Tomography ACCESSION EXAM DATE/TIME PROCEDURE ORDERING PROVIDER [id number] 07/22/2020 05:[address] Spine Cervical w/o MD HERO, FRANK VILLAFANA Contrast CPT code 52720 Reason For Exam (CT Spine Cervical w/o Contrast) fall Report Clinical indication: Fall. Neck pain. Comparison: PET/CT 04/02/2020 Radiation dose: DLP 632 mGycm Multidetector imaging from skull base through thoracic inlet was performed with axial, coronal and sagittal reconstructions evaluated. There is mild motion artifact. No fracture or spondylolisthesis is noted. Moderate degenerative disc height loss and mild associated endplate degenerative change involves C4-C5. There is mild degenerative disc height loss at C5-C6. Diffuse hypertrophic facet arthropathy is present. On the left the C2-C3 facet is fused. There is streak artifact from dental metal. There is slight asymmetric fullness in the right lateral pharyngeal wall and there are linear densities and distortion in the adjacent right parapharyngeal fat which may be postsurgical in this patient who has a history of tonsillar cancer with surgical removal. This area appears unchanged from the PET/CT. The previous enlarged abnormal level 1B to upper level two lymph node on the right has regressed. Right submandibular gland is asymmetrically larger than the left but appears slightly smaller compared to the prior exam. No definite pathologically enlarged lymph nodes are noted currently. IMPRESSION: No acute osseous abnormality is noted in the cervical spine. Degenerative changes diffusely and facet joints and most severely involving the C4-C5 disc Regression of previous right adenopathy and slightly decreased size of the right submandibular gland since the PET/CT of 04/02/2020. There is asymmetric appearance of the right lateral pharyngeal wall parapharyngeal fat which may be postoperative in nature. Computed Tomography Report Report Dictated on --- Final --- Dictating Physician: MD FLORES DIANE Signed Date and Time: 07/22/2020 5:55 am Signed by: MD FLORES DIANE Transcribed Date and Time: 07/22/2020 5:56 [facility], [employer] CT HEAD WO CONTRASTon 2019 Patient Name: Ty WALDROP Computed Tomography ACCESSION EXAM DATE/TIME PROCEDURE ORDERING PROVIDER [id number] 07/22/2020 05:[address] Head or Brain w/o MD HERO, FRANK VILLAFANA Contrast CPT code 10384 Reason For Exam (CT Head or Brain w/o Contrast) fall Report Clinical indication: Fall. Hit head. Comparison: None Radiation dose: DLP 1003 147 mGycm Imaging between skull base and vertex was performed without intravenous contrast. No intracranial hemorrhage, edema, mass or mass effect is identified. No extra axial hemorrhagic collections are identified. The septum pellucidum is not diffuse which represents a developmental variant. Ventricles, sulci and cisterns appear normal in size. Small scalp hematoma is present in the right frontal region. There is no fracture noted in the calvarium or visualized facial bones. There is a fluid level in the left maxillary sinus. Mild mucoperiosteal thickening is noted in both maxillary sinuses and this is probably incidental sinusitis. IMPRESSION: No acute intracranial abnormality is identified specifically with no acute infarction identified. Small right frontal scalp hematoma Incidental maxillary sinusitis with fluid in the left maxillary sinus Report Dictated on --- Final --- Dictating Physician: MD FLORES DIANE Signed Date and Time: 07/22/2020 5:48 am Signed by: MD FLORES DIANE Transcribed Date and Time: 07/22/2020 5:49 [facility] [place] [facility] Incoming Radiology Results From [facility] - 07/22/2020 5:49 AM EST Patient Name: MESSI WALDROP Computed Tomography ACCESSION EXAM DATE/TIME PROCEDURE ORDERING PROVIDER [id number] 07/22/2020 05:[address] Head or Brain w/o MD CANCINO LISA MARIE Contrast CPT code 24165 Reason For Exam (CT Head or Brain w/o Contrast) fall Report Clinical indication: Fall. Hit head. Comparison: None Radiation dose: DLP 1003 147 mGycm Imaging between skull base and vertex was performed without intravenous contrast. No intracranial hemorrhage, edema, mass or mass effect is identified. No extra axial hemorrhagic collections are identified. The septum pellucidum is not diffuse which represents a developmental variant. Ventricles, sulci and cisterns appear normal in size. Small scalp hematoma is present in the right frontal region. There is no fracture noted in the calvarium or visualized facial bones. There is a fluid level in the left maxillary sinus. Mild mucoperiosteal thickening is noted in both maxillary sinuses and this is probably incidental sinusitis. IMPRESSION: No acute intracranial abnormality is identified specifically with no acute infarction identified. Small right frontal scalp hematoma Incidental maxillary sinusitis with fluid in the left maxillary sinus Report Dictated on --- Final --- Dictating Physician: MD FLORES DIANE Signed Date and Time: 07/22/2020 5:48 am Signed by: MD FLORES DIANE Transcribed Date and Time: 07/22/2020 5:49 [place], [place] CT Head or Brain w/o Contras ton 07-22-2020 CT Head or Brain w/o Contrast Patient Name: MESSI WALDROP Computed Tomography ACCESSION EXAM DATE/TIME PROCEDURE ORDERING PROVIDER [id number] 07/22/2020 05:[address] Head or Brain w/o MD HERO, FRANK Alexander CPT code 58503 Reason For Exam (CT Head or Brain w/o Contrast) fall Report Clinical indication: Fall. Hit head. Comparison: None Radiation dose: DLP 1003 147 mGycm Imaging between skull base and vertex was performed without intravenous contrast. No intracranial hemorrhage, edema, mass or mass effect is identified. No extra axial hemorrhagic collections are identified. The septum pellucidum is not diffuse which represents a developmental variant. Ventricles, sulci and cisterns appear normal in size. Small scalp hematoma is present in the right frontal region. There is no fracture noted in the calvarium or visualized facial bones. There is a fluid level in the left maxillary sinus. Mild mucoperiosteal thickening is noted in both maxillary sinuses and this is probably incidental sinusitis. IMPRESSION: No acute intracranial abnormality is identified specifically with no acute infarction identified. Small right frontal scalp hematoma Incidental maxillary sinusitis with fluid in the left maxillary sinus Report Dictated on Final Dictating Physician: MD FLORES DIANE Signed Date and Time: 07/22/2020 5:48 am Signed by: MD FLORES DIANE Transcribed Date and Time: 07/22/2020 5:49 Normal [facility] CT Spine Cervical w/o Contra taye 07-22-2020 CT Spine Cervical w/o Contrast Patient Name: MESSI WALDROP Computed Tomography ACCESSION EXAM DATE/TIME PROCEDURE ORDERING PROVIDER [id number] 07/22/2020 05:[address] Spine Cervical w/o MD HERO, FRANK VILLAFANA Contrast CPT code 71085 Reason For Exam (CT Spine Cervical w/o Contrast) fall Report Clinical indication: Fall. Neck pain. Comparison: PET/CT 04/02/2020 Radiation dose: DLP 632 mGycm Multidetector imaging from skull base through thoracic inlet was performed with axial, coronal and sagittal reconstructions evaluated. There is mild motion artifact. No fracture or spondylolisthesis is noted. Moderate degenerative disc height loss and mild associated endplate degenerative change involves C4-C5. There is mild degenerative disc height loss at C5-C6. Diffuse hypertrophic facet arthropathy is present. On the left the C2-C3 facet is fused. There is streak artifact from dental metal. There is slight asymmetric fullness in the right lateral pharyngeal wall and there are linear densities and distortion in the adjacent right parapharyngeal fat which may be postsurgical in this patient who has a history of tonsillar cancer with surgical removal. This area appears unchanged from the PET/CT. The previous enlarged abnormal level 1B to upper level two lymph node on the right has regressed. Right submandibular gland is asymmetrically larger than the left but appears slightly smaller compared to the prior exam. No definite pathologically enlarged lymph nodes are noted currently. IMPRESSION: No acute osseous abnormality is noted in the cervical spine. Degenerative changes diffusely and facet joints and most severely involving the C4-C5 disc Regression of previous right adenopathy and slightly decreased size of the right submandibular gland since the PET/CT of 04/02/2020. There is asymmetric appearance of the right lateral pharyngeal wall parapharyngeal fat which may be postoperative in nature. Computed Tomography Report Report Dictated on Final Dictating Physician: MD FLORES DIANE Signed Date and Time: 07/22/2020 5:55 am Signed by: MD FLORES DIANE Transcribed Date and Time: 07/22/2020 5:56 Normal [facility] Comprehensive Metabolic Pane cayetano 06-29-2020 Albumin [Mass/Vol] 3.4 g/dL Low 3.5 - 5 g/dL [place], [place] ALP [Catalytic activity/Vol] 103 U/L 38 - 126 U/L [place], [place] ALT [Catalytic activity/Vol] 30 U/L 0 - 49 U/L [place] Comment on above: The ALT test is perf ormed by an updated assay method. Please note that the reference intervals have been changed and are now sex specific. Anion gap [Moles/Vol] 9 mmol/L [place], [place] AST [Catalytic activity/Vol] 44 U/L 15 - 46 U/L [place] Bilirubin Ql (U) 0.3 mg/dL 0.2 - 1.3 mg/dL [place] Calcium [Mass/Vol] 9.2 mg/dL 8.4 - 10. 4 mg/dL [place] Chloride [Moles/Vol] 101 mmol/L 98 - 10 7 mmol/L [place] CO2 [Moles/Vol] 23 mmol/L 22 - 30 mmol/L [place] Creatinine [Mass/Vol] 1.23 mg/dL 0.52 - 1.25 mg/dL [place] EGFR IF NonAfrican [place] 61.5 mL/min >60 [place] Comment on above: KDIGO guidelines pro vide the following GFR categories: Stage GFR(ml/min/1.73 m2) Terms G1 >=90 Normal or high G2 60-89 Mildly decreased* G3a 45-59 Mildly to moderately decreased G3b 30-44 Moderately to severely decreased G4 15-29 Severely decreased G5 <15 Kidney failure *Relative to young adult level. In the absence of evidence of kidney damage, neither GFR category G1 nor G2 fulfill the criteria for CKD. The CKD-EPI equation is validated in individuals 18 years of age and older. Currently the best equation for estimating glomerular filtration rate (GFR) from serum creatinine in children is the Bedside Cotton equation. It is less accurate in patients with extremes of muscle mass, restriction of dietary protein, ingestion of creatine, extra-renal metabolism of creatinine, or treatment with medications that affect renal tubular creatinine secretion. GFR/1.73 sq M predicted among blacks MDRD (S/P/Bld) [Vol rate/Area] 71.2 mL/min/{1.73_m2} >60 [place], [place] Glucose [Mass/Vol] 137 mg/dL High 70 - 100 mg/dL [place] Interpretation and review of laboratory results Abnormal [place] Potassium [Moles/Vol] 4.0 mmol/L 3.5 - 5.1 mmol/L [place] Protein [Mass/Vol] 6.5 g/dL 6.3 - 8.2 g/dL [place] Sodium [Moles/Vol] 133 mmol/L Low 135 - 145 mmol/L [place] Urea nitrogen [Mass/Vol] 16 mg/dL 7 - 20 mg/dL [place] Test Performed by [facility], [address] [place] [id number] [place] [address] COMPREHENSIVE METABOLIC PANE [place] 06-22-2020 Albumin [Mass/Vol] 3.8 g/dL 3.5 - 5 g/dL [place], [place] ALP [Catalytic activity/Vol] 87 U/L 38 - 126 U/L [place] ALT [Catalytic activity/Vol] 22 U/L 0 - 49 U/L [place] Comment on above: The ALT test is perf ormed by an updated assay method. Please note that the reference intervals have been changed and are now sex specific. Anion gap [Moles/Vol] 7 mmol/L [place], [place] AST [Catalytic activity/Vol] 43 U/L 15 - 46 U/L [place] Bilirubin Ql (U) 0.7 mg/dL 0.2 - 1.3 mg/dL [place] Calcium [Mass/Vol] 9.7 mg/dL 8.4 - 10. 4 mg/dL [place] Chloride [Moles/Vol] 100 mmol/L 98 - 10 7 mmol/L [place] CO2 [Moles/Vol] 25 mmol/L 22 - 30 mmol/L [place] Creatinine [Mass/Vol] 1.46 mg/dL High 0.52 - 1.25 mg/dL [place] EGFR IF NonAfrican [place] 50.0 mL/min Abnormal >60 [place] Comment on above: KDIGO guidelines pro vide the following GFR categories: Stage GFR(ml/min/1.73 m2) Terms G1 >=90 Normal or high G2 60-89 Mildly decreased* G3a 45-59 Mildly to moderately decreased G3b 30-44 Moderately to severely decreased G4 15-29 Severely decreased G5 <15 Kidney failure *Relative to young adult level. In the absence of evidence of kidney damage, neither GFR category G1 nor G2 fulfill the criteria for CKD. The CKD-EPI equation is validated in individuals 18 years of age and older. Currently the best equation for estimating glomerular filtration rate (GFR) from serum creatinine in children is the Bedside Cotton equation. It is less accurate in patients with extremes of muscle mass, restriction of dietary protein, ingestion of creatine, extra-renal metabolism of creatinine, or treatment with medications that affect renal tubular creatinine secretion. GFR/1.73 sq M predicted among blacks MDRD (S/P/Bld) [Vol rate/Area] 57.9 mL/min/{1.73_m2} Abnormal >60 [place] Glucose [Mass/Vol] 158 mg/dL High 70 - 100 mg/dL [place] Interpretation and review of laboratory results Abnormal [place] Potassium [Moles/Vol] 5.0 mmol/L 3.5 - 5.1 mmol/L [place] Protein [Mass/Vol] 7.2 g/dL 6.3 - 8.2 g/dL [place] Sodium [Moles/Vol] 132 mmol/L Low 135 - 145 mmol/L [place] Urea nitrogen [Mass/Vol] 16 mg/dL 7 - 20 mg/dL [place] Test Performed by [facility], [address] [place] [id number] [place] [address] CBC WITH AUTO DIFFERENTIALon 06-18-2020 Absolute Baso # 0.0 10*3/uL 0 - 0.2 10*3/uL [place] Absolute Neut # 6.7 10*3/uL 1.8 - 7 10*3/uL [place] Basophils/100 WBC (Bld) 0.2 % 0 - 2 % [place] Eosinophils (Bld) [#/Vol] 0.0 10*3/uL 0 - 0.5 10*3/uL [place] Eosinophils/100 WBC (Bld) 0.5 % Low 1 - 6 % [place] Erythrocyte distribution width (RBC) [Ratio] 13.6 % 11.5 - 14.5 % [place] Granulocytes/100 WBC (Bld) 88.2 % High 40 - 80 % [place] Hematocrit (Bld) [Volume fraction] 34.7 % Low 40 - 52 % [place] Hemoglobin (Bld) [Mass/Vol] 11.4 g/dL Low 13 - 18 g/dL [place] Lymphocytes (Bld) [#/Vol] 0.2 10*3/uL Low 1 - 4.3 10*3/uL [place] Lymphocytes/100 WBC (Bld) 2.5 % Low 20 - 40 % [place] MCH (RBC) [Entitic mass] 29.6 pg 26 - 34 pg [place] MCHC (RBC) [Mass/Vol] 32.8 % 32 - 36 % [place], [place] MCV (RBC) [Entitic vol] 90.2 fL 80 - 98 fL [place] Monocytes (Bld) [#/Vol] 0.6 10*3/uL 0 - 0.8 10*3/uL [place] Monocytes/100 WBC (Bld) 8.6 % 2 - 10 % [place] Platelet mean volume (Bld) [Entitic vol] 7.7 fL 7.4 - 10.4 fL [place] Platelets (Bld) [#/Vol] 306 10*3/uL 140 - 440 10*3/uL [place] RBC (Bld) [#/Vol] 3.85 10*6/uL Low 4.4 - 5.9 10*6/uL [place] WBC (Bld) [#/Vol] 7.5 10*3/uL 3.6 - 10.7 10*3/uL [place] COMPREHENSIVE METABOLIC PANE [place] 06-18-2020 Albumin [Mass/Vol] 3.8 g/dL 3.5 - 5 g/dL [place] ALP [Catalytic activity/Vol] 106 U/L 38 - 126 U/L [place] ALT [Catalytic activity/Vol] 19 U/L 0 - 49 U/L [place] Comment on above: The ALT test is perf ormed by an updated assay method. Please note that the reference intervals have been changed and are now sex specific. Anion gap [Moles/Vol] 11 mmol/L [place], [place] AST [Catalytic activity/Vol] 34 U/L 15 - 46 U/L [place] Bilirubin Ql (U) 0.4 mg/dL 0.2 - 1.3 mg/dL [place] Calcium [Mass/Vol] 10.0 mg/dL 8.4 - 10. 4 mg/dL [place] Chloride [Moles/Vol] 98 mmol/L 98 - 10 7 mmol/L [place] CO2 [Moles/Vol] 24 mmol/L 22 - 30 mmol/L [place] Creatinine [Mass/Vol] 1.87 mg/dL High 0.52 - 1.25 mg/dL [place] EGFR IF NonAfrican [place] 37.1 mL/min Abnormal >60 [place] Comment on above: KDIGO guidelines pro vide the following GFR categories: Stage GFR(ml/min/1.73 m2) Terms G1 >=90 Normal or high G2 60-89 Mildly decreased* G3a 45-59 Mildly to moderately decreased G3b 30-44 Moderately to severely decreased G4 15-29 Severely decreased G5 <15 Kidney failure *Relative to young adult level. In the absence of evidence of kidney damage, neither GFR category G1 nor G2 fulfill the criteria for CKD. The CKD-EPI equation is validated in individuals 18 years of age and older. Currently the best equation for estimating glomerular filtration rate (GFR) from serum creatinine in children is the Bedside Cotton equation. It is less accurate in patients with extremes of muscle mass, restriction of dietary protein, ingestion of creatine, extra-renal metabolism of creatinine, or treatment with medications that affect renal tubular creatinine secretion. GFR/1.73 sq M predicted among blacks MDRD (S/P/Bld) [Vol rate/Area] 42.9 mL/min/{1.73_m2} Abnormal >60 [place] Glucose [Mass/Vol] 115 mg/dL High 70 - 100 mg/dL [place] Potassium [Moles/Vol] 4.4 mmol/L 3.5 - 5.1 mmol/L [place] Protein [Mass/Vol] 6.9 g/dL 6.3 - 8.2 g/dL [place] Sodium [Moles/Vol] 133 mmol/L Low 135 - 145 mmol/L [place] Urea nitrogen [Mass/Vol] 22 mg/dL High 7 - 20 mg/dL [place] Otheron 06-18-2020 Interpretation and review of laboratory results Abnormal [place] Test Performed by [facility], [address] [place] [id number] [place] [address] CBC Auto Differentialon 11-0 Absolute Baso # 0.0 10*3/uL 0 - 0.2 10*3/uL [place] Absolute Neut # 4.4 10*3/uL 1.8 - 7 10*3/uL [place] Basophils/100 WBC (Bld) 0.6 % 0 - 2 % [place] Eosinophils (Bld) [#/Vol] 0.0 10*3/uL 0 - 0.5 10*3/uL [place] Eosinophils/100 WBC (Bld) 0.2 % Low 1 - 6 % [place] Erythrocyte distribution width (RBC) [Ratio] 12.1 % 11.5 - 14.5 % [place] Granulocytes/100 WBC (Bld) 88.5 % High 40 - 80 % [place] Hematocrit (Bld) [Volume fraction] 33.8 % Low 40 - 52 % [place] Hemoglobin (Bld) [Mass/Vol] 11.1 g/dL Low 13 - 18 g/dL [place] Interpretation and review of laboratory results Abnormal [place] Lymphocytes (Bld) [#/Vol] 0.1 10*3/uL Low 1 - 4.3 10*3/uL [place] Lymphocytes/100 WBC (Bld) 2.2 % Low 20 - 40 % [place] MCH (RBC) [Entitic mass] 29.3 pg 26 - 34 pg [place] MCHC (RBC) [Mass/Vol] 32.8 % 32 - 36 % [place] MCV (RBC) [Entitic vol] 89.3 fL 80 - 98 fL [place] Monocytes (Bld) [#/Vol] 0.4 10*3/uL 0 - 0.8 10*3/uL [place] Monocytes/100 WBC (Bld) 8.5 % 2 - 10 % [place] Platelet mean volume (Bld) [Entitic vol] 7.4 fL 7.4 - 10.4 fL [place] Platelets (Bld) [#/Vol] 182 10*3/uL 140 - 440 10*3/uL [place] RBC (Bld) [#/Vol] 3.78 10*6/uL Low 4.4 - 5.9 10*6/uL [place] WBC (Bld) [#/Vol] 4.9 10*3/uL 3.6 - 10.7 10*3/uL [place] Test Performed by [facility], [address] [place] [id number] [place], [place] Comprehensive Metabolic Pane cayetano 06-01-2020 Albumin [Mass/Vol] 3.9 g/dL 3.5 - 5 g/dL [place] ALP [Catalytic activity/Vol] 100 U/L 38 - 126 U/L [place] ALT [Catalytic activity/Vol] 23 U/L 0 - 49 U/L [place] Comment on above: The ALT test is perf ormed by an updated assay method. Please note that the reference intervals have been changed and are now sex specific. Anion gap [Moles/Vol] 10 mmol/L [place] AST [Catalytic activity/Vol] 34 U/L 15 - 46 U/L [place] Bilirubin Ql (U) 0.5 mg/dL 0.2 - 1.3 mg/dL [place] Calcium [Mass/Vol] 9.6 mg/dL 8.4 - 10. 4 mg/dL [place] Chloride [Moles/Vol] 98 mmol/L 98 - 10 7 mmol/L [place] CO2 [Moles/Vol] 23 mmol/L 22 - 30 mmol/L [place] Creatinine [Mass/Vol] 1.29 mg/dL High 0.52 - 1.25 mg/dL [place] EGFR IF NonAfrican [place]ic 58.1 mL/min Abnormal >60 [place] Comment on above: KDIGO guidelines pro vide the following GFR categories: Stage GFR(ml/min/1.73 m2) Terms G1 >=90 Normal or high G2 60-89 Mildly decreased* G3a 45-59 Mildly to moderately decreased G3b 30-44 Moderately to severely decreased G4 15-29 Severely decreased G5 <15 Kidney failure *Relative to young adult level. In the absence of evidence of kidney damage, neither GFR category G1 nor G2 fulfill the criteria for CKD. The CKD-EPI equation is validated in individuals 18 years of age and older. Currently the best equation for estimating glomerular filtration rate (GFR) from serum creatinine in children is the Bedside Cotton equation. It is less accurate in patients with extremes of muscle mass, restriction of dietary protein, ingestion of creatine, extra-renal metabolism of creatinine, or treatment with medications that affect renal tubular creatinine secretion. GFR/1.73 sq M predicted among blacks MDRD (S/P/Bld) [Vol rate/Area] 67.3 mL/min/{1.73_m2} >60 [place] Glucose [Mass/Vol] 157 mg/dL High 70 - 100 mg/dL [place] Interpretation and review of laboratory results Abnormal [place] Potassium [Moles/Vol] 4.7 mmol/L 3.5 - 5.1 mmol/L [place] Comment on above: Slightly hemolysed, interpret with caution. Protein [Mass/Vol] 7.0 g/dL 6.3 - 8.2 g/dL [place] Sodium [Moles/Vol] 131 mmol/L Low 135 - 145 mmol/L [place] Urea nitrogen [Mass/Vol] 17 mg/dL 7 - 20 mg/dL [place] Test Performed by [address] Magnesiumon 06-01-2020 Magnesium [Mass/Vol] 1.8 mg/dL 1.6 - 2 .3 mg/dL [place] Test Performed by [id number] [place] [address] Comprehensive Metabolic Pane cayetano 05-25-2020 Albumin [Mass/Vol] 4.1 g/dL 3.5 - 5 g/dL [place] ALP [Catalytic activity/Vol] 95 U/L 38 - 126 U/L [place] ALT [Catalytic activity/Vol] 39 U/L 0 - 49 U/L [place] Comment on above: The ALT test is perf ormed by an updated assay method. Please note that the reference intervals have been changed and are now sex specific. Anion gap [Moles/Vol] 8 mmol/L [place] AST [Catalytic activity/Vol] 37 U/L 15 - 46 U/L [place] Bilirubin Ql (U) 0.4 mg/dL 0.2 - 1.3 mg/dL [place] Calcium [Mass/Vol] 9.6 mg/dL 8.4 - 10. 4 mg/dL [place] Chloride [Moles/Vol] 96 mmol/L Low 98 - 10 7 mmol/L [place] CO2 [Moles/Vol] 26 mmol/L 22 - 30 mmol/L [place] Creatinine [Mass/Vol] 1.66 mg/dL High 0.52 - 1.25 mg/dL [place] EGFR IF NonAfrican [place]ic 42.8 mL/min Abnormal >60 [place] Comment on above: KDIGO guidelines pro vide the following GFR categories: Stage GFR(ml/min/1.73 m2) Terms G1 >=90 Normal or high G2 60-89 Mildly decreased* G3a 45-59 Mildly to moderately decreased G3b 30-44 Moderately to severely decreased G4 15-29 Severely decreased G5 <15 Kidney failure *Relative to young adult level. In the absence of evidence of kidney damage, neither GFR category G1 nor G2 fulfill the criteria for CKD. The CKD-EPI equation is validated in individuals 18 years of age and older. Currently the best equation for estimating glomerular filtration rate (GFR) from serum creatinine in children is the Bedside Cotton equation. It is less accurate in patients with extremes of muscle mass, restriction of dietary protein, ingestion of creatine, extra-renal metabolism of creatinine, or treatment with medications that affect renal tubular creatinine secretion. GFR/1.73 sq M predicted among blacks MDRD (S/P/Bld) [Vol rate/Area] 49.6 mL/min/{1.73_m2} Abnormal >60 [place] Glucose [Mass/Vol] 130 mg/dL High 70 - 100 mg/dL [place] Interpretation and review of laboratory results Abnormal [place] Potassium [Moles/Vol] 4.3 mmol/L 3.5 - 5.1 mmol/L [place] Protein [Mass/Vol] 7.1 g/dL 6.3 - 8.2 g/dL [place] Sodium [Moles/Vol] 130 mmol/L Low 135 - 145 mmol/L [place] Urea nitrogen [Mass/Vol] 31 mg/dL High 7 - 20 mg/dL [place] Test Performed by [facility], [address] [place] [id number] [place] Comprehensive Metabolic Pane cayetano 05-19-2020 Albumin [Mass/Vol] 4.1 g/dL 3.5 - 5 g/dL [place] ALP [Catalytic activity/Vol] 85 U/L 38 - 126 U/L [place] ALT [Catalytic activity/Vol] 22 U/L 0 - 49 U/L [place] Comment on above: The ALT test is perf ormed by an updated assay method. Please note that the reference intervals have been changed and are now sex specific. Anion gap [Moles/Vol] 6 mmol/L [place] AST [Catalytic activity/Vol] 33 U/L 15 - 46 U/L [place] Bilirubin Ql (U) 0.3 mg/dL 0.2 - 1.3 mg/dL [place] Calcium [Mass/Vol] 9.0 mg/dL 8.4 - 10. 4 mg/dL [place] Chloride [Moles/Vol] 100 mmol/L 98 - 10 7 mmol/L [place] CO2 [Moles/Vol] 25 mmol/L 22 - 30 mmol/L [place] Creatinine [Mass/Vol] 0.96 mg/dL 0.52 - 1.25 mg/dL [place] EGFR IF NonAfrican [place]ic 83.0 mL/min >60 [place] Comment on above: KDIGO guidelines pro vide the following GFR categories: Stage GFR(ml/min/1.73 m2) Terms G1 >=90 Normal or high G2 60-89 Mildly decreased* G3a 45-59 Mildly to moderately decreased G3b 30-44 Moderately to severely decreased G4 15-29 Severely decreased G5 <15 Kidney failure *Relative to young adult level. In the absence of evidence of kidney damage, neither GFR category G1 nor G2 fulfill the criteria for CKD. The CKD-EPI equation is validated in individuals 18 years of age and older. Currently the best equation for estimating glomerular filtration rate (GFR) from serum creatinine in children is the Bedside Cotton equation. It is less accurate in patients with extremes of muscle mass, restriction of dietary protein, ingestion of creatine, extra-renal metabolism of creatinine, or treatment with medications that affect renal tubular creatinine secretion. GFR/1.73 sq M predicted among blacks MDRD (S/P/Bld) [Vol rate/Area] mL/min/{1.73_m2} >60 mL/min [place] Glucose [Mass/Vol] 153 mg/dL High 70 - 100 mg/dL [place] Interpretation and review of laboratory results Abnormal [place] Potassium [Moles/Vol] 4.4 mmol/L 3.5 - 5.1 mmol/L [place] Protein [Mass/Vol] 7.0 g/dL 6.3 - 8.2 g/dL [place] Sodium [Moles/Vol] 131 mmol/L Low 135 - 145 mmol/L [place] Urea nitrogen [Mass/Vol] 20 mg/dL 7 - 20 mg/dL [place] Test Performed by [facility], [address] [place] [address] CBC Auto Differentialon 10-2 0-2020 Absolute Baso # 0.1 10*3/uL 0 - 0.2 10*3/uL [place] Absolute Neut # 3.3 10*3/uL 1.8 - 7 10*3/uL [place] Basophils/100 WBC (Bld) 2.2 % High 0 - 2 % [place] Eosinophils (Bld) [#/Vol] 0.2 10*3/uL 0 - 0.5 10*3/uL [place] Eosinophils/100 WBC (Bld) 3.4 % 1 - 6 % [place] Erythrocyte distribution width (RBC) [Ratio] 12.1 % 11.5 - 14.5 % [place] Granulocytes/100 WBC (Bld) 69.2 % 40 - 80 % [place] Hematocrit (Bld) [Volume fraction] 38.5 % Low 40 - 52 % [place] Hemoglobin (Bld) [Mass/Vol] 13.0 g/dL 13 - 18 g/dL [place] Interpretation and review of laboratory results Abnormal [place] Lymphocytes (Bld) [#/Vol] 0.5 10*3/uL Low 1 - 4.3 10*3/uL [place] Lymphocytes/100 WBC (Bld) 9.9 % Low 20 - 40 % [place] MCH (RBC) [Entitic mass] 30.3 pg 26 - 34 pg [place] MCHC (RBC) [Mass/Vol] 33.8 % 32 - 36 % [place] MCV (RBC) [Entitic vol] 89.5 fL 80 - 98 fL [place] Monocytes (Bld) [#/Vol] 0.7 10*3/uL 0 - 0.8 10*3/uL [place] Monocytes/100 WBC (Bld) 15.3 % High 2 - 10 % [place] Platelet mean volume (Bld) [Entitic vol] 8.0 fL 7.4 - 10.4 fL [place] Platelets (Bld) [#/Vol] 200 10*3/uL 140 - 440 10*3/uL [place] RBC (Bld) [#/Vol] 4.31 10*6/uL Low 4.4 - 5.9 10*6/uL [place] WBC (Bld) [#/Vol] 4.8 10*3/uL 3.6 - 10.7 10*3/uL [place] Test Performed by [facility], [address] [place] [address], [place], [place] [id number] [place] [address] Comprehensive Metabolic Pane cayetano 05-18-2020 Albumin [Mass/Vol] 4.1 g/dL 3.5 - 5 g/dL [place] ALP [Catalytic activity/Vol] 90 U/L 38 - 126 U/L [place] ALT [Catalytic activity/Vol] 17 U/L 0 - 49 U/L [place] Comment on above: The ALT test is perf ormed by an updated assay method. Please note that the reference intervals have been changed and are now sex specific. Anion gap [Moles/Vol] 6 mmol/L [place] AST [Catalytic activity/Vol] 26 U/L 15 - 46 U/L [place] Bilirubin Ql (U) 0.3 mg/dL 0.2 - 1.3 mg/dL [place] Calcium [Mass/Vol] 10.0 mg/dL 8.4 - 10. 4 mg/dL [place] Chloride [Moles/Vol] 99 mmol/L 98 - 10 7 mmol/L [place] CO2 [Moles/Vol] 30 mmol/L 22 - 30 mmol/L [place] Creatinine [Mass/Vol] 1.13 mg/dL 0.52 - 1.25 mg/dL [place] EGFR IF NonAfrican [place] 68.2 mL/min >60 [place] Comment on above: KDIGO guidelines pro vide the following GFR categories: Stage GFR(ml/min/1.73 m2) Terms G1 >=90 Normal or high G2 60-89 Mildly decreased* G3a 45-59 Mildly to moderately decreased G3b 30-44 Moderately to severely decreased G4 15-29 Severely decreased G5 <15 Kidney failure *Relative to young adult level. In the absence of evidence of kidney damage, neither GFR category G1 nor G2 fulfill the criteria for CKD. The CKD-EPI equation is validated in individuals 18 years of age and older. Currently the best equation for estimating glomerular filtration rate (GFR) from serum creatinine in children is the Bedside Cotton equation. It is less accurate in patients with extremes of muscle mass, restriction of dietary protein, ingestion of creatine, extra-renal metabolism of creatinine, or treatment with medications that affect renal tubular creatinine secretion. GFR/1.73 sq M predicted among blacks MDRD (S/P/Bld) [Vol rate/Area] 79.0 mL/min/{1.73_m2} >60 [place] Glucose [Mass/Vol] 97 mg/dL 70 - 100 mg/dL [place] Potassium [Moles/Vol] 4.4 mmol/L 3.5 - 5.1 mmol/L [place] Protein [Mass/Vol] 7.3 g/dL 6.3 - 8.2 g/dL [place] Sodium [Moles/Vol] 135 mmol/L 135 - 145 mmol/L [place] Urea nitrogen [Mass/Vol] 16 mg/dL 7 - 20 mg/dL [place] Magnesiumon 05-18-2020 Magnesium [Mass/Vol] 2.0 mg/dL 1.6 - 2 .3 mg/dL [place] Otheron 05-18-2020 Test Performed by [facility], [facility] [place] [address] [place] Hematologyon 05-13-2020 Basophils/100 WBC (Bld) 0.6 % 0 - 2 % [place] Eosinophils (Bld) [#/Vol] 0.1 10*3/uL 0 - 0.5 10*3/uL [place] Eosinophils/100 WBC (Bld) 3.3 % 1 - 6 % [place] Hematocrit (Bld) [Volume fraction] 37.6 % Low 40 - 52 % [place] Hemoglobin (Bld) [Mass/Vol] 12.8 g/dL Low 13 - 18 g/dL [place] Lymphocytes (Bld) [#/Vol] 0.4 10*3/uL Low 1 - 4.3 10*3/uL [place] Lymphocytes/100 WBC (Bld) 13.9 % Low 20 - 40 % [place] MCH (RBC) [Entitic mass] 30.4 pg 26 - 34 pg [place] MCV (RBC) [Entitic vol] 89.2 fL 80 - 98 fL [place] Monocytes (Bld) [#/Vol] 0.6 10*3/uL 0 - 0.8 10*3/uL [place] Monocytes/100 WBC (Bld) 19.9 % High 2 - 10 % [place] Platelets (Bld) [#/Vol] 218 10*3/uL 140 - 440 10*3/uL [place] RBC (Bld) [#/Vol] 4.21 10*6/uL Low 4.4 - 5.9 10*6/uL [place] WBC (Bld) [#/Vol] 3.1 10*3/uL Low 3.6 - 10.7 10*3/uL [place] Otheron 05-13-2020 Absolute Baso # 0.0 10*3/uL 0 - 0.2 10*3/uL [place] Absolute Neut # 2.0 10*3/uL 1.8 - 7 10*3/uL [place] Erythrocyte distribution width (RBC) [Ratio] 12.0 % 11.5 - 14.5 % [place] Granulocytes/100 WBC (Bld) 62.3 % 40 - 80 % [place] Interpretation and review of laboratory results Abnormal [place] MCHC (RBC) [Mass/Vol] 34.1 % 32 - 36 % [place] Platelet mean volume (Bld) [Entitic vol] 7.4 fL 7.4 - 10.4 fL [place] Test Performed by [facility], [address] [place] [address] CBC Auto Differentialon 04-29 Absolute Baso # 0.0 10*3/uL 0 - 0.2 10*3/uL [place] Absolute Neut # 1.0 10*3/uL Low 1.8 - 7 10*3/uL [place] Basophils/100 WBC (Bld) 0.5 % 0 - 2 % [place] Eosinophils (Bld) [#/Vol] 0.1 10*3/uL 0 - 0.5 10*3/uL [place] Eosinophils/100 WBC (Bld) 5.2 % 1 - 6 % [place] Erythrocyte distribution width (RBC) [Ratio] 12.0 % 11.5 - 14.5 % [place] Granulocytes/100 WBC (Bld) 52.4 % 40 - 80 % [place] Hematocrit (Bld) [Volume fraction] 36.9 % Low 40 - 52 % [place] Hemoglobin (Bld) [Mass/Vol] 12.8 g/dL Low 13 - 18 g/dL [place] Interpretation and review of laboratory results Abnormal [place] Lymphocytes (Bld) [#/Vol] 0.4 10*3/uL Low 1 - 4.3 10*3/uL [place] Lymphocytes/100 WBC (Bld) 22.7 % 20 - 40 % [place] MCH (RBC) [Entitic mass] 30.9 pg 26 - 34 pg [place] MCHC (RBC) [Mass/Vol] 34.6 % 32 - 36 % [place] MCV (RBC) [Entitic vol] 89.3 fL 80 - 98 fL [place] Monocytes (Bld) [#/Vol] 0.4 10*3/uL 0 - 0.8 10*3/uL [place] Monocytes/100 WBC (Bld) 19.2 % High 2 - 10 % [place] Platelet mean volume (Bld) [Entitic vol] 7.3 fL Low 7.4 - 10.4 fL [place] Platelets (Bld) [#/Vol] 224 10*3/uL 140 - 440 10*3/uL [place] RBC (Bld) [#/Vol] 4.13 10*6/uL Low 4.4 - 5.9 10*6/uL [place] WBC (Bld) [#/Vol] 1.9 10*3/uL Critically low 3.6 - 10 .7 10*3/uL [place] Test Performed by [facility], [address] [place] [id number] [place] [address] Comprehensive Metabolic Pane cayetano 05-11-2020 Albumin [Mass/Vol] 4.0 g/dL 3.5 - 5 g/dL [place] ALP [Catalytic activity/Vol] 75 U/L 38 - 126 U/L [place] ALT [Catalytic activity/Vol] 20 U/L 0 - 49 U/L [place] Comment on above: The ALT test is perf ormed by an updated assay method. Please note that the reference intervals have been changed and are now sex specific. Anion gap [Moles/Vol] 6 mmol/L [place] AST [Catalytic activity/Vol] 28 U/L 15 - 46 U/L [place] Bilirubin Ql (U) 0.4 mg/dL 0.2 - 1.3 mg/dL [place] Calcium [Mass/Vol] 9.5 mg/dL 8.4 - 10. 4 mg/dL [place] Chloride [Moles/Vol] 101 mmol/L 98 - 10 7 mmol/L [place] CO2 [Moles/Vol] 28 mmol/L 22 - 30 mmol/L [place] Creatinine [Mass/Vol] 1.14 mg/dL 0.52 - 1.25 mg/dL [place] EGFR IF NonAfrican [place]ic 67.5 mL/min >60 [place] Comment on above: KDIGO guidelines pro vide the following GFR categories: Stage GFR(ml/min/1.73 m2) Terms G1 >=90 Normal or high G2 60-89 Mildly decreased* G3a 45-59 Mildly to moderately decreased G3b 30-44 Moderately to severely decreased G4 15-29 Severely decreased G5 <15 Kidney failure *Relative to young adult level. In the absence of evidence of kidney damage, neither GFR category G1 nor G2 fulfill the criteria for CKD. The CKD-EPI equation is validated in individuals 18 years of age and older. Currently the best equation for estimating glomerular filtration rate (GFR) from serum creatinine in children is the Bedside Cotton equation. It is less accurate in patients with extremes of muscle mass, restriction of dietary protein, ingestion of creatine, extra-renal metabolism of creatinine, or treatment with medications that affect renal tubular creatinine secretion. GFR/1.73 sq M predicted among blacks MDRD (S/P/Bld) [Vol rate/Area] 78.2 mL/min/{1.73_m2} >60 [place] Glucose [Mass/Vol] 122 mg/dL High 70 - 100 mg/dL [place] Interpretation and review of laboratory results Abnormal [place] Potassium [Moles/Vol] 4.1 mmol/L 3.5 - 5.1 mmol/L [place] Protein [Mass/Vol] 7.0 g/dL 6.3 - 8.2 g/dL [place] Sodium [Moles/Vol] 135 mmol/L 135 - 145 mmol/L [place] Urea nitrogen [Mass/Vol] 13 mg/dL 7 - 20 mg/dL [place] Magnesiumon 05-11-2020 Magnesium [Mass/Vol] 2.0 mg/dL 1.6 - 2 .3 mg/dL [place] Otheron 05-11-2020 Test Performed by [facility], [address] [place] [address] SKULL BASE TO [facility] 04-02-2020 Patient Name: Ty WALDROP ---PET--- Exam Date/Time 04/02/2020 13:57:05 EDT Exam PT w/ CT Scan Skull Base to [facility] Ordering Physician HILARIA STEINER Accession Number [id number] CPT4 Codes 89562 (), A9552 () Reason For Exam Tonsil CA Report PET/CT CLINICAL INDICATION: Tonsillar cancer initial staging. Right tonsil removed one month prior. Following the intravenous administration of 13.6 mCi of fluorine-18 fluorodeoxyglucose (FDG) a PET scan of the neck and torso was acquired after an approximately one hour delay. Blood glucose level at the time of injection was 122 mg/dl. Contemporaneously, noncontrast axial CT images were obtained using low dose technique. The images were reconstructed in three orthogonal planes and digitally coregistered. The CT data was used for attenuation correction as well. COMPARISON: None NECK AND CHEST: There is intense (maximal SUV 13) FDG accumulation within an enlarged right submandibular lymph node which measures approximately 2.3 cm in diameter on the low-dose CT images. The intensity of uptake is consistent with malignancy. No additional FDG avid lymphadenopathy is identified within the head or neck. No FDG avid pulmonary nodules are identified. There is no FDG avid lymphadenopathy within the chest. ABDOMEN AND PELVIS: No abnormal FDG accumulation is seen within the abdomen or pelvis. MUSCULOSKELETAL: Unremarkable. No evidence of osseous metastatic disease. IMPRESSION: Intensely FDG avid right submandibular lymph node is consistent with della disease. There is no definite abnormal tracer uptake identified within the right tonsil, consistent with the patient's history of recent tonsillectomy. No evidence of distant metastatic disease identified. Report Dictated on --- Final --- Dictated: 04/02/2020 2:46 pm Dictating Physician: MD LANDERS JONATHAN R Signed Date and Time: 04/02/2020 2:48 pm Signed by: MD LANDERS JONATHAN R Transcribed Date and Time: 04/02/2020 2:46 [place] Incoming Radiology Results From [facility] - 04/02/2020 2:50 PM EDT Patient Name: MESSI WALDROP ---PET--- Exam Date/Time 04/02/2020 13:57:05 EDT Exam PT w/ CT Scan Skull Base to [facility] Ordering Physician HILARIA STEINER Accession Number [id number] CPT4 Codes 20848 (), A9552 () Reason For Exam Tonsil CA Report PET/CT CLINICAL INDICATION: Tonsillar cancer initial staging. Right tonsil removed one month prior. Following the intravenous administration of 13.6 mCi of fluorine-18 fluorodeoxyglucose (FDG) a PET scan of the neck and torso was acquired after an approximately one hour delay. Blood glucose level at the time of injection was 122 mg/dl. Contemporaneously, noncontrast axial CT images were obtained using low dose technique. The images were reconstructed in three orthogonal planes and digitally coregistered. The CT data was used for attenuation correction as well. COMPARISON: None NECK AND CHEST: There is intense (maximal SUV 13) FDG accumulation within an enlarged right submandibular lymph node which measures approximately 2.3 cm in diameter on the low-dose CT images. The intensity of uptake is consistent with malignancy. No additional FDG avid lymphadenopathy is identified within the head or neck. No FDG avid pulmonary nodules are identified. There is no FDG avid lymphadenopathy within the chest. ABDOMEN AND PELVIS: No abnormal FDG accumulation is seen within the abdomen or pelvis. MUSCULOSKELETAL: Unremarkable. No evidence of osseous metastatic disease. IMPRESSION: Intensely FDG avid right submandibular lymph node is consistent with della disease. There is no definite abnormal tracer uptake identified within the right tonsil, consistent with the patient's history of recent tonsillectomy. No evidence of distant metastatic disease identified. Report Dictated on --- Final --- Dictated: 04/02/2020 2:46 pm Dictating Physician: MD LANDERS JONATHAN R Signed Date and Time: 04/02/2020 2:48 pm Signed by: MD LANDERS JONATHAN R Transcribed Date and Time: 04/02/2020 2:46 [facility] [place], [place] Glucose,Bedsideon 03-04-2020 Glucose [Mass/Vol] 127 mg/dL High 70-100 [facility] Comment on above: Result Comment: Test performed by glucose meter. Results may be 10%-15% lower than serum/plasma values. (CLIA ID [id number]) Performed By: #### B GLU #### [facility] [address] [place] [address] Medical Cytology 0 Medical Cytology [facility] [phone] [facility]PART[facility] OF PATHOLOGY AND [facility] LABORATORY MEDICINE [address] [place] [address] [id number] FINAL MEDICAL CYTOLOGY REPORT NAME: MESSI WALDROP : 1955 65 Y M BILLING NO.: [id number] LOCATION: [facility] SAME DAY SURGERY PROCEDURE 03/04/2020 SDS 11 DATE: PHYSICIAN: HILARIA STEINER DO RECEIVED DATE: 03/05/2020 ATTENDING: HILARIA STEINER DO REPORT DATE: 03/09/2020 COPIES TO: CLINICAL DATA: Cervical Lymphadenopathy DIAGNOSIS POSITIVE FOR MALIGNANT CELLS. CELLULAR FINDINGS ARE CONSISTENT WITH SQUAMOUS CELL CARCINOMA. COMMENT: Scattered markedly atypical cells are present on the thin layer slide, with some showing squamoid features. In the cell block there are clusters of lymphocytes and malignant cells with similar features. These malignant cells stain positive for pankeratin and focally positive for p40, supporting the diagnosis of metastatic squamous cell carcinoma. A CD68 stain highlights background histiocytes. Please see also patient's concurrent tonsil and tongue specimens ([id number]) for additional information. SPECIMEN: FINE NEEDLE ASPIRATION-NECK, RIGHT PROCEDURE(S): FINE NEEDLE ASPIRATION GROSS DESCRIPTION: 30 ml, clear fluid, w/cytolyt Materials Prepared & Examined: Cell Blocks . . . . . . . . . . . . 1 Monolayers . . . . . . . . . . . . 1 Special Stains . . . . . . . . . . ICK, IP40, ICD68, JJ1 Screened by TEODORA DEWEY M.D. Printed March 09, 2020 at 11:06:02 AM Disclaimer The following statement applies to all immunohistochemistry, in situ hybridization, molecular studies, and immunofluorescence testing. The use of one or more reagents in the above tests is regulated as an analyte specific reagent (ASR). These tests were developed and their performance characteristics determined by the clinical laboratories of [facility]. They have not been cleared by the US Food and Drug Administration (FDA). The FDA has determined that such clearance or approval is not necessary. All the above immunostains were performed on paraffin embedded tissue. Appropriate positive and negative controls (where applicable) were run in parallel with the patient's specimen; these controls showed expected staining pattern, with acceptable intensity of staining. Immunohistochemical assays have not been validated on decalcified tissues. Results should be interpreted with caution given the raised possibility of false negativity on decalcified specimens. Case reviewed at [facility] [address] [place] [address]. DEPARTMENT OF PATHOLOGY AND LABORATORY MEDICINE [place], [place] [address] Normal [facility] POCT Glucoseon 03-04-2020 Glucose [Mass/Vol] 127 mg/dL High 70 - 100 mg/dL [facility] [place] Comment on above: Test performed by ucose meter. Results may be 10%-15% lower than serum/plasma values. (CLIA ID [id number]) Interpretation and review of laboratory results Abnormal [facility] [place] Test Performed by [facility], [facility] Мария [place], [place] [address] [place] [address], [place] Surgical Pathologyon 020 Surgical Pathology [id number] [facility] PATHOLOGY AND LABORATORY MEDICINE [address] [place], [place] [id number] Fax - FINAL SURGICAL PATHOLOGY REPORT NAME: MESSI WALDROP : 1955 65 [address] Misael MUNOZ NO.: [id number] LOCATION[facility] 11 PROCEDURE 03/04/2020 DATE: SURGEON: HILARIA STEINER DO RECEIVED 03/04/2020 DATE: ATTENDING: HILARIA STEINER DO REPORT DATE: 03/09/2020 COPIES TO: DIAGNOSIS: A. 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 RIGHT BASE OF TONGUE, BIOPSY - SUPERFICIAL FRAGMENTS OF SQUAMOUS MUCOSA AND UNDERLYING LYMPHOID TISSUE - NEGATIVE FOR MALIGNANCY HCK/HCK Signature> CHAYITO CRESPO M.D. CLINICAL INFORMATION: Neoplasm of uncertain behavior of pharynx, Neoplasm of uncertain behavior of tongue SPECIMEN: (A) TONSIL(S), EXCISION (B) TONGUE BIOPSY GROSS DESCRIPTION: A. Right tonsil Received in formalin are multiple pieces of joens-brown tissue aggregating to 2 x 2 x 1 cm. The specimen is submitted entirely in two cassettes. B. Biopsy right base of tongue Received in formalin are two pieces of jones tissue aggregating to 0.4 x 0.4 x 0.2 cm. The specimen is submitted entirely in one cassette. YRS/KMS1 Disclaimer: The following statement applies to all immunohistochemistry, in situ hybridization, molecular studies, and immunofluorescence testing. The use of one or more reagents in the above tests is regulated as an analyte specific reagent (ASR). These tests were developed and their performance characteristics determined by the clinical laboratories of [facility]. They have not been cleared by the US Food and Drug Administration (FDA). The FDA has determined that such clearance or approval is not necessary. All the above immunostains were performed on paraffin embedded tissue. Appropriate positive and negative controls (where applicable) were run in parallel with the patient's specimen; these controls showed expected staining pattern, with acceptable intensity of staining. Immunohistochemical assays have not been validated on decalcified tissues. Results should be interpreted with caution given the raised possibility of false negativity on decalcified specimens. [place] [address]. DEPARTMENT OF PATHOLOGY AND LABORATORY MEDICINE [place], [place] [address] Normal [facility] Surgical Pathology Depar tmenton 06-29-2017 [facility] Surgical Pathology Department Name MESSI WALDROP Pathologist: EDDIE RIVERA, MDDate of Procedure: 06/29/2017Date Received: 06/29/2017Date Reported 07/02/2017Submitting Physician: JESSE ESPINAL MDLocation: APMISC Copy To/Referring/Attending:JUMANA SPRINGER M.D. Other External # [id number] FINAL DIAGNOSISA. DESCENDING COLON, SPECIMEN LABELED POLYPS X2, POLYPECTOMIES: TUBULARADENOMAS. Electronically Signed Out By EDDIE RIVERA MD/Bren the signature on this report, the individual or group listed as making theFinal Interpretation/Diagnosis certifies that they have reviewed this case. Clinical History:Avarege risk screeningSpecimens Submitted As:A: DESCENDING COLON POLYPS X2 Other Case Numbers [id number] Description:Received in formalin, labeled with the patient's name and hospital number anddescending polyps ?2 , are 2 fragments of jones, soft tissue aggregating to 0.5x 0.2 x 0.1 cm. The specimen is submitted in toto in one cassette.[facility]/06/30/2017 Normal [facility] Comment on above: Performed By: #### [facility] ####[facility] Surgical Pathology [facility] [facility]Clevel[facility] [address] Vital Signs Date Time Vital Sign Value Performing Clinician Facility 07-15-2024 10:53-0500 Heart rate 81 /min [employer] DO Work Phone: [facility] 07-15-2024 10:53-0500 SaO2% (BldA) [Mass fraction] 99 % [employer] Work Phone: [facility] 07-15-2024 10:53-0500 Body temperature 97.59 [degF] [employer] DO Work Phone: [facility] 07-15-2024 10:53-0500 Diastolic blood pressure 65 mm[Hg] [employer] DO Work Phone: [facility] 07-15-2024 10:53-0500 Respiratory rate 18 /min [employer] DO Work Phone: [facility] 07-15-2024 10:53-0500 Systolic blood pressure 111 mm[Hg] [employer] DO Work Phone: [facility] 07-14-2024 14:15-0500 Body height 175.3 cm [employer] Work Phone: [facility] 07-11-2024 17:28-0500 Body mass index (BMI) [Ratio] 23.63 kg/m2 Maggie VegaBernard DO Work Phone: [facility] 07-11-2024 17:28-0500 Body weight 72.58 kg Maggie Chairez DO Work Phone: [facility] 10-17-2023 07:26-0400 Heart rate 100 /min Dr. John Springer Work Phone: [facility] 10-17-2023 07:26-0400 Respiratory rate 16 /min Dr. John Springer Work Phone: [facility] 10-17-2023 07:26-0400 SaO2% (BldA) [Mass fraction] 96 % Dr. John Springer Work Phone: [facility] 10-17-2023 07:00-0400 Diastolic blood pressure 54 mm[Hg] Dr. John Springer Work Phone: [facility] 10-17-2023 07:00-0400 Systolic blood pressure 90 mm[Hg] Dr. John Springer Work Phone: [facility] 10-17-2023 05:22-0400 Body mass index (BMI) [Ratio] 23.4 kg/m2 Dr. John Springer Work Phone: [facility] 10-17-2023 05:22-0400 Body weight 74.[address] John Springer Work Phone: [facility] 10-17-2023 04:00-0400 Body temperature 98.5 [degF] Dr. John Springer Work Phone: [facility] 10-16-2023 09:12-0400 Body height 177.[address] John Springer Work Phone: [facility] 10-15-2023 14:16-0400 Diastolic blood pressure 65 mm[Hg] [facility] 10-15-2023 14:16-0400 Heart rate 120 /min [facility] 10-15-2023 14:16-0400 Respiratory rate 18 /min [facility] 10-15-2023 14:16-0400 SaO2% (BldA) [Mass fraction] 97 % [facility] 10-15-2023 14:16-0400 Systolic blood pressure 92 mm[Hg] [facility] 10-15-2023 13:45-0400 Body temperature 98.9 [degF] [facility] 10-14-2023 16:39-0400 Body height 177.8 cm [facility] 10-14-2023 16:39-0400 Body mass index (BMI) [Ratio] 24 kg/m2 [facility] 10-14-2023 16:39-0400 Body weight 76.2 kg [facility] 08-22-2023 10:53-0500 Diastolic blood pressure 78 mm[Hg] Sofya Arreola MD Work Phone: [facility] 08-22-2023 10:53-0500 Systolic blood pressure 119 mm[Hg] Sofya Arreola MD Work Phone: [facility] 08-22-2023 09:00-0500 Body temperature 97.7 [degF] Sofya Arreola MD Work Phone: [facility] 08-22-2023 09:00-0500 Heart rate 88 /min Sofya Arreola MD Work Phone: [facility] 08-22-2023 09:00-0500 Respiratory rate 16 /min Sofya Arreola MD Work Phone: [facility] 08-22-2023 09:00-0500 SaO2% (BldA) [Mass fraction] 95 % Sofya Arreola MD Work Phone: [facility] 08-22-2023 06:00-0500 Body mass index (BMI) [Ratio] 26.19 kg/m2 Sofya Arreola MD Work Phone: [facility] 08-22-2023 06:00-0500 Body weight 80.46 kg Sofya Arreola MD Work Phone: [facility] 08-12-2023 15:21-0500 Body height 175.3 cm Sofya Arreola MD Work Phone: [facility] 05-30-2023 17:30-0400 Body temperature 98.4 [degF] Dr. John Springer Work Phone: [facility] 05-30-2023 17:30-0400 Diastolic blood pressure 79 mm[Hg] Dr. John Springer Work Phone: [facility] 05-30-2023 17:30-0400 Heart rate 79 /min Dr. John Springer Work Phone: [facility] 05-30-2023 17:30-0400 Respiratory rate 18 /min Dr. John Springer Work Phone: [facility] 05-30-2023 17:30-0400 SaO2% (BldA) [Mass fraction] 98 % Dr. John Springer Work Phone: [facility] 05-30-2023 17:30-0400 Systolic blood pressure 139 mm[Hg] Dr. John Springer Work Phone: [facility] 05-30-2023 07:03-0400 Body mass index (BMI) [Ratio] 23.6 kg/m2 Dr. John Springer Work Phone: [facility] 05-30-2023 07:03-0400 Body weight 74.[address] John Springer Work Phone: [facility] 05-25-2023 11:23-0400 Body height 177.[address] John Springer Work Phone: [facility] 05-20-2023 21:57-0400 Inhaled oxygen flow rate 2 L/min Dr. John Springer Work Phone: [facility] 04-16-2023 17:40-0400 Diastolic blood pressure 85 mm[Hg] Dr. Kelechi Miles Work Phone: [facility] 04-16-2023 17:40-0400 Heart rate 92 /min Dr. Kelechi Miles Work Phone: 0(260)803-913806 [place] [address] 04-16-2023 17:40-0400 Respiratory rate 14 /min Dr. Kelechi Miles Work Phone: 2(012)341-906806 [place] [address] 04-16-2023 17:40-0400 SaO2% (BldA) [Mass fraction] 98 % Dr. Kelechi Miles Work Phone: 4(319)323-592206 [place] [address] 04-16-2023 17:40-0400 Systolic blood pressure 149 mm[Hg] Dr. Kelechi Miles Work Phone: 1(368)742-803288 [place] [address] 04-16-2023 15:45-0400 Body mass index (BMI) [Ratio] 24.3 kg/m2 Dr. Kelechi Miles Work Phone: 1(070)900-103206 [place] [address] 04-16-2023 15:45-0400 Body weight 76.[address] Kelechi Miles Work Phone: 1(269)586-270806 [place] [address] 04-16-2023 14:42-0400 Body height 177.[address] Kelechi Miles Work Phone: 4(312)558-159506 [place] [address] 04-16-2023 14:42-0400 Body temperature 97.1 [degF] Dr. Kelechi Miles Work Phone: 7(456)437-613506 [place] [address] 03-06-2023 16:00-0400 Body temperature 97.8 [degF] Dr. Kelechi Miles Work Phone: 5(106)186-415506 [place] [address] 03-06-2023 16:00-0400 Diastolic blood pressure 78 mm[Hg] Dr. Kelechi Miles Work Phone: 7(963)225-289706 [place] [address] 03-06-2023 16:00-0400 Heart rate 78 /min Dr. Kelechi Miles Work Phone: [facility] 03-06-2023 16:00-0400 Respiratory rate 16 /min Dr. Kelechi Miles Work Phone: 1(291)038-029106 [place] [address] 03-06-2023 16:00-0400 SaO2% (BldA) [Mass fraction] 99 % Dr. Kelechi Miles Work Phone: 7(624)754-718306 [place] [address] 03-06-2023 16:00-0400 Systolic blood pressure 140 mm[Hg] Dr. Kelechi Miles Work Phone: 3(875)650-628506 [place] [address] 03-06-2023 13:04-0400 Body height 175.[address] Kelechi Miles Work Phone: 0(806)780-913688 [place] [address] 03-06-2023 13:04-0400 Body mass index (BMI) [Ratio] 24.7 kg/m2 Dr. Kelechi Miles Work Phone: 1(486)767-765388 [place] [address] 03-06-2023 13:04-0400 Body weight 76.[address] Kelechi Miles Work Phone: 8(095)019-891388 [place] [address] 02-27-2023 15:21-0400 Body temperature 98 [degF] Dr. Kelechi Miles Work Phone: 1(626)472-067488 [place] [address] 02-27-2023 15:21-0400 Diastolic blood pressure 71 mm[Hg] Dr. Kelechi Miles Work Phone: 8(221)251-739906 [place] [address] 02-27-2023 15:21-0400 Heart rate 89 /min Dr. Kelechi Miles Work Phone: 8(123)111-100088 [place] [address] 02-27-2023 15:21-0400 Respiratory rate 18 /min Dr. Kelechi Miles Work Phone: 2(109)402-333806 [place] [address] 02-27-2023 15:21-0400 SaO2% (BldA) [Mass fraction] 98 % Dr. Kelechi Miles Work Phone: 1(558)242-977006 [place] [address] 02-27-2023 15:21-0400 Systolic blood pressure 123 mm[Hg] Dr. Kelechi Miles Work Phone: 7(926)844-082706 [place] [address] 02-26-2023 16:06-0400 Body height 175.[address] Kelechi Miles Work Phone: 9(928)921-451106 [place] [address] 02-26-2023 16:06-0400 Body mass index (BMI) [Ratio] 24 kg/m2 Dr. Kelechi Miles Work Phone: 1(131)171-398491 [address] 02-26-2023 16:06-0400 Body weight 73.[address] Kelechi Miles Work Phone: 1(494)720-521588 [place] [address] 02-25-2023 00:20-0400 Diastolic blood pressure 71 mm[Hg] Dr. Kelechi Miles Work Phone: 2(615)739-432388 [place] [address] 02-25-2023 00:20-0400 Heart rate 91 /min Dr. Kelechi Miles Work Phone: 1(881)678-543188 [place] [address] 02-25-2023 00:20-0400 Respiratory rate 16 /min Dr. Kelechi Miles Work Phone: 5(012)354-888588 [place] [address] 02-25-2023 00:20-0400 SaO2% (BldA) [Mass fraction] 99 % Dr. Kelechi Miles Work Phone: 0(718)538-862088 [place] [address] 02-25-2023 00:20-0400 Systolic blood pressure 122 mm[Hg] Dr. Kelechi Miles Work Phone: 0(124)793-448388 [place] [address] 02-24-2023 17:58-0400 Body height 172.[address] Kelechi Miles Work Phone: 7(871)835-079188 [place] [address] 02-24-2023 17:58-0400 Body mass index (BMI) [Ratio] 22 kg/m2 Dr. Kelechi Miles Work Phone: 1(396)861-193688 [place] [address] 02-24-2023 17:58-0400 Body temperature 97.8 [degF] Dr. Kelechi Miles Work Phone: 3(815)949-268688 [place] [address] 02-24-2023 17:58-0400 Body weight 65.[address] Kelechi Miles Work Phone: 6(899)472-861288 [place] [address] 02-19-2023 06:20-0400 Diastolic blood pressure 76 mm[Hg] Dr. Kelechi Miles Work Phone: 2(927)029-515288 [place] [address] 02-19-2023 06:20-0400 Heart rate 99 /min Dr. Kelechi Miles Work Phone: 1(452)462-925406 [place] [address] 02-19-2023 06:20-0400 Respiratory rate 17 /min Dr. Kelechi Miles Work Phone: [facility] 02-19-2023 06:20-0400 SaO2% (BldA) [Mass fraction] 100 % Dr. Kelechi Miles Work Phone: [facility] 02-19-2023 06:20-0400 Systolic blood pressure 134 mm[Hg] Dr. Kelechi Miles Work Phone: [facility] 02-19-2023 02:06-0400 Body height 172.[address] Kelechi Miles Work Phone: [facility] 02-19-2023 02:06-0400 Body mass index (BMI) [Ratio] 21.2 kg/m2 Dr. Kelechi Miles Work Phone: [facility] 02-19-2023 02:06-0400 Body temperature 98 [degF] Dr. Kelechi Miles Work Phone: [facility] 02-19-2023 02:06-0400 Body weight 63.[address] Kelechi Miles Work Phone: [facility] 01-28-2023 05:21-0400 Diastolic blood pressure 72 mm[Hg] Titi Inman MD Work Phone: [facility] 01-28-2023 05:21-0400 Heart rate 95 /min Titi Inman MD Work Phone: [facility] 01-28-2023 05:21-0400 Respiratory rate 16 /min Titi Inman MD Work Phone: [facility] 01-28-2023 05:21-0400 SaO2% (BldA) [Mass fraction] 97 % Titi Inman MD Work Phone: [facility] 01-28-2023 05:21-0400 Systolic blood pressure 143 mm[Hg] Titi Inman MD Work Phone: [facility] 01-27-2023 22:18-0400 Body temperature 98.91 [degF] Titi Inman MD Work Phone: [facility] 01-08-2023 13:30-0400 Body temperature 97.6 [degF] Dr. Kelechi Miles Work Phone: [facility] 01-08-2023 13:30-0400 Diastolic blood pressure 86 mm[Hg] Dr. Kelechi Miles Work Phone: 5(045)390-185891 [address] 01-08-2023 13:30-0400 Heart rate 74 /min Dr. Kelechi Miles Work Phone: 1(698)793-224688 [place] [address] 01-08-2023 13:30-0400 Respiratory rate 18 /min Dr. Kelechi Miles Work Phone: 0(649)700-339591 [address] 01-08-2023 13:30-0400 SaO2% (BldA) [Mass fraction] 100 % Dr. Kelechi Miles Work Phone: 1(175)113-502591 [address] 01-08-2023 13:30-0400 Systolic blood pressure 145 mm[Hg] Dr. Kelechi Miles Work Phone: 5(435)471-826791 [address] 01-06-2023 11:41-0400 Body weight [address] Kelechi Miles Work Phone: 8(592)607-810288 [place] [address] 01-05-2023 21:37-0400 Body mass index (BMI) [Ratio] 23.5 kg/m2 Dr. Kelechi Miles Work Phone: 7(238)163-109991 [address] 01-05-2023 19:03-0400 Body temperature 98.9 [degF] Dr. Kelechi Miles Work Phone: [facility] 01-05-2023 19:03-0400 Diastolic blood pressure 74 mm[Hg] Dr. Kelechi Miles Work Phone: [facility] 01-05-2023 19:03-0400 Heart rate 96 /min Dr. Kelechi Miles Work Phone: [facility] 01-05-2023 19:03-0400 Respiratory rate 19 /min Dr. Kelechi Miles Work Phone: 1(603)589-247223 [place] [address] 01-05-2023 19:03-0400 SaO2% (BldA) [Mass fraction] 98 % Dr. Kelechi Miles Work Phone: 0(819)320-622506 [place] [address] 01-05-2023 19:03-0400 Systolic blood pressure 141 mm[Hg] Dr. Kelechi Miles Work Phone: 1(282)534-518388 [place] [address] 01-05-2023 15:23-0400 Body height 175.[address] Kelechi Miles Work Phone: 6(811)279-496688 [place] [address] 01-05-2023 15:23-0400 Body mass index (BMI) [Ratio] 23.8 kg/m2 Dr. Kelechi Miles Work Phone: 1(085)998-995488 [place] [address] 01-05-2023 15:23-0400 Body weight 73.[address] Kelechi Miles Work Phone: 6(406)124-801188 [place] [address] 12-23-2022 13:51-0400 Body temperature 98.5 [degF] Dr. Kelechi Miles Work Phone: 6(804)265-769388 [place] [address] 12-23-2022 13:51-0400 Diastolic blood pressure 66 mm[Hg] Dr. Kelechi Miles Work Phone: 1(090)514-193288 [place] [address] 12-23-2022 13:51-0400 Heart rate 70 /min Dr. Kelechi Miles Work Phone: 6(137)263-171188 [place] [address] 12-23-2022 13:51-0400 Respiratory rate 18 /min Dr. Kelechi Miles Work Phone: 0(445)820-646288 [place] [address] 12-23-2022 13:51-0400 SaO2% (BldA) [Mass fraction] 98 % Dr. Kelechi Miles Work Phone: 5(630)519-775688 [place] [address] 12-23-2022 13:51-0400 Systolic blood pressure 120 mm[Hg] Dr. Kelechi Miles Work Phone: 1(247)333-833706 [place] [address] 12-22-2022 08:22-0400 Body weight 78.[address] Kelechi Miles Work Phone: 3(459)003-241706 [place] [address] 12-22-2022 03:46-0400 Body mass index (BMI) [Ratio] 24.8 kg/m2 Dr. Kelechi Miles Work Phone: [facility] 12-21-2022 17:55-0400 Inhaled oxygen flow rate 2 L/min Dr. Kelechi Miles Work Phone: [facility] 10-11-2022 15:24-0400 Body height 175.3 cm John Springer MD Work Phone: [facility] 10-11-2022 15:24-0400 Body mass index (BMI) [Ratio] 26.21 kg/m2 John Springer MD Work Phone: [facility] 10-11-2022 15:24-0400 Body temperature 97.11 [degF] John Springer MD Work Phone: [facility] 10-11-2022 15:24-0400 Body weight 80.51 kg John Springer MD Work Phone: [facility] 10-11-2022 15:24-0400 Diastolic blood pressure 87 mm[Hg] John Springer MD Work Phone: [facility] 10-11-2022 15:24-0400 Heart rate 118 /min John Springer MD Work Phone: [facility] 10-11-2022 15:24-0400 Respiratory rate 16 /min John Springer MD Work Phone: [facility] 10-11-2022 15:24-0400 Systolic blood pressure 131 mm[Hg] John Springer MD Work Phone: [facility] 10-01-2020 19:14-0500 Body Temperature 97.11 [degF] Jessica Nick [facility] Work Phone: 10-01-2020 19:14-0500 BP Diastolic 85 mm[Hg] Jessica Nick [facility] Work Phone: 10-01-2020 19:14-0500 BP Systolic 152 mm[Hg] Jessica Nick [facility] Work Phone: 10-01-2020 19:14-0500 Pulse (Heart Rate) 101 /min Jessica MONGE Work Phone: 10-01-2020 19:14-0500 Pulse Oximetry 98 % Jessica MONGE Work Phone: 10-01-2020 19:14-0500 Respiratory Rate 18 /min Jessica MONGE Work Phone: 07-22-2020 05:04-0500 Body Temperature 98.4 [degF] [facility] 07-22-2020 05:04-0500 BP Diastolic 76 mm[Hg] [facility] , [place] 07-22-2020 05:04-0500 BP Systolic 160 mm[Hg] [facility] , [place] 07-22-2020 05:04-0500 Pulse (Heart Rate) 104 /min [facility] 07-22-2020 05:04-0500 Pulse Oximetry 98 % [facility] [place] 07-22-2020 05:04-0500 Respiratory Rate 18 /min [facility] 06-29-2020 13:54-0500 BMI (Body Mass Index) 28.73 kg/m2 [facility] 06-29-2020 13:54-0500 Body Temperature 98.4 [degF] [facility] 06-29-2020 13:54-0500 Body weight 90.81 kg [facility] , [place] 06-29-2020 13:54-0500 BP Diastolic 68 mm[Hg] [facility] [place] 06-29-2020 13:54-0500 BP Systolic 127 mm[Hg] [facility] [place] 06-29-2020 13:54-0500 Pulse (Heart Rate) 88 /min [facility] 06-29-2020 13:54-0500 Respiratory Rate 18 /min [facility] [place] 06-23-2020 12:02-0500 BMI (Body Mass Index) 29.47 kg/m2 Michelle Fernández [facility], [place] 06-23-2020 12:02-0500 Body Temperature 98.29 [degF] [facility] [place] 06-23-2020 12:02-0500 Body weight 93.17 kg [facility] [place] 06-23-2020 12:02-0500 BP Diastolic 88 mm[Hg] [facility] [place] 06-23-2020 12:02-0500 BP Systolic 170 mm[Hg] [facility] [place] 06-23-2020 12:02-0500 Pulse (Heart Rate) 101 /min [facility] [place] 06-23-2020 12:02-0500 Respiratory Rate 18 /min [facility], [place] 06-22-2020 12:28-0500 BP Diastolic 66 mm[Hg] [facility] [place] 06-22-2020 12:28-0500 BP Systolic 119 mm[Hg] [facility] [place] 06-22-2020 12:28-0500 Pulse (Heart Rate) 92 /min [facility] [place] 06-22-2020 12:28-0500 Pulse Oximetry 97 % [facility] , [place] 06-22-2020 12:28-0500 Respiratory Rate 18 /min [facility] , [place] 06-22-2020 11:18-0500 BMI (Body Mass Index) 29.07 kg/m2 Michelle Fernández [facility], [place] 06-22-2020 11:18-0500 Body Temperature 98.2 [degF] [facility] , [place] 06-22-2020 11:18-0500 Body weight 91.9 kg [facility] , [place] 06-18-2020 12:55-0500 BMI (Body Mass Index) 29.33 kg/m2 [facility] [place] 06-18-2020 12:55-0500 Body weight 92.72 kg [facility] , [place] 06-18-2020 12:55-0500 Body Temperature 98.91 [degF] [facility] [place] 06-18-2020 12:55-0500 BP Diastolic 80 mm[Hg] [facility] , [place] 06-18-2020 12:55-0500 BP Systolic 152 mm[Hg] [facility] , [place] 06-18-2020 12:55-0500 Pulse (Heart Rate) 103 /min [facility] [place] 06-18-2020 12:55-0500 Respiratory Rate 20 /[facility] [place] 06-08-2020 15:24-0500 Body Temperature 99.61 [degF] [facility] [place] 06-08-2020 15:24-0500 BP Diastolic 66 mm[Hg] [facility] , [place] 06-08-2020 15:24-0500 BP Systolic 128 mm[Hg] [facility] , [place] 06-08-2020 15:24-0500 Pulse (Heart Rate) 89 /min [facility] [place] 06-08-2020 15:24-0500 Pulse Oximetry 92 % [facility] [place] 06-08-2020 15:24-0500 Respiratory Rate 22 /min [facility], [place] 06-08-2020 15:05-0500 BMI (Body Mass Index) 30.36 kg/m2 [facility], [place] 06-08-2020 15:05-0500 Body weight 95.98 kg [facility] , [place] 06-03-2020 11:12-0500 BMI (Body Mass Index) 30.99 kg/m2 [facility] [place] 06-03-2020 11:12-0500 Body Temperature 98.29 [degF] [facility] [place] 06-03-2020 11:12-0500 Body weight 97.98 kg [facility] , [place] 06-03-2020 11:12-0500 BP Diastolic 82 mm[Hg] [facility] [place] 06-03-2020 11:12-0500 BP Systolic 142 mm[Hg] [facility] [place] 06-03-2020 11:12-0500 Height 177.8 cm [facility] , [place] 06-03-2020 11:12-0500 Pulse (Heart Rate) 83 /min [facility] [place] 06-03-2020 11:12-0500 Respiratory Rate 18 /min [facility], [place] 05-26-2020 13:18-0400 BMI (Body Mass Index) 32 kg/m2 [facility] [place] 05-26-2020 13:18-0400 Body Temperature 98.1 [degF] [facility], [place] 05-26-2020 13:18-0400 Body weight 101.15 kg [facility]hellesergio [facility] , [place] 05-26-2020 13:18-0400 BP Diastolic 73 mm[Hg] [facility] [place] 05-26-2020 13:18-0400 BP Systolic 144 mm[Hg] [facility] [place] 05-26-2020 13:18-0400 Pulse (Heart Rate) 73 /min [facility] [place] 05-26-2020 13:18-0400 Respiratory Rate 18 /min [facility], [place] 05-25-2020 15:24-0400 Body Temperature 98.1 [degF] [facility], [place] 05-25-2020 15:24-0400 BP Diastolic 67 mm[Hg] [facility] [place] , [place] 05-25-2020 15:24-0400 BP Systolic 140 mm[Hg] [facility] [place] , [place] 05-25-2020 15:24-0400 Pulse (Heart Rate) 79 /min [facility] [place], [place] 05-25-2020 15:24-0400 Respiratory Rate 18 /min [facility] [place] 05-21-2020 13:17-0400 BMI (Body Mass Index) 32.56 kg/m2 [facility] [place], [place] 05-21-2020 13:17-0400 Body Temperature 98.4 [degF] [facility] [place] 05-21-2020 13:17-0400 Body weight 102.92 kg [facility] , [place] 05-21-2020 13:17-0400 BP Diastolic 72 mm[Hg] [facility] [place] [facility] [place] 05-21-2020 13:17-0400 BP Systolic 137 mm[Hg] [facility] [place] [facility] [place] 05-21-2020 13:17-0400 Pulse (Heart Rate) 65 /min Michellesergio [facility] [place] 05-21-2020 13:17-0400 Respiratory Rate 16 /min [facility]esergio [facility], [place] 05-20-2020 13:20-0400 BMI (Body Mass Index) 32.99 kg/m2 [facility] [place] 05-20-2020 13:20-0400 Body Temperature 98.29 [degF] [facility] [place] 05-20-2020 13:20-0400 Body weight 104.28 kg Michellesergio [facility] [place] [facility] [place] 05-20-2020 13:20-0400 BP Diastolic 68 mm[Hg] [facility] [place] [facility] [place] 05-20-2020 13:20-0400 BP Systolic 134 mm[Hg] [facility] [place] , [place] 05-20-2020 13:20-0400 Pulse (Heart Rate) 91 /min [facility], [place] 05-20-2020 13:20-0400 Respiratory Rate 18 /min [facility] [place] 05-19-2020 10:09-0400 BMI (Body Mass Index) 33.15 kg/m2 [facility], [place] 05-19-2020 10:09-0400 Body Temperature 97.5 [degF] [facility] [place] 05-19-2020 10:09-0400 Body weight 104.78 kg [facility] , [place] 05-19-2020 10:09-0400 BP Diastolic 77 mm[Hg] [facility] , [place] 05-19-2020 10:09-0400 BP Systolic 152 mm[Hg] [facility] , [place] 05-19-2020 10:09-0400 Pulse (Heart Rate) 66 /min [facility], [place] 05-19-2020 10:09-0400 Respiratory Rate 18 /min [facility] , [place] 05-18-2020 14:57-0400 BP Diastolic 86 mm[Hg] [facility] [place] 05-18-2020 14:57-0400 BP Systolic 157 mm[Hg] [facility] [place] 05-18-2020 14:57-0400 Pulse (Heart Rate) 67 /min [facility] [place] 05-18-2020 14:57-0400 Respiratory Rate 18 /min Mcihelle [facility], [place] 05-18-2020 08:09-0400 BMI (Body Mass Index) 32.84 kg/m2 [facility], [place] 05-18-2020 08:09-0400 Body Temperature 97.5 [degF] [facility], [place] 05-18-2020 08:09-0400 Body weight 103.83 kg [facility] , [place] 05-18-2020 08:09-0400 Height 177.8 cm [facility] , [place] 05-18-2020 08:09-0400 Pulse Oximetry 96 % Michelle Leavitt [facility] , [place] 04-22-2020 14:27-0400 BP Diastolic 79 mm[Hg] [facility] [place] , [place] 04-22-2020 14:27-0400 BP Systolic 156 mm[Hg] [facility] , [place] 04-22-2020 14:27-0400 Pulse (Heart Rate) 62 /min [facility], [place] 04-22-2020 13:07-0400 BMI (Body Mass Index) 35.5 kg/m2 [facility], [place] 04-22-2020 13:07-0400 Body Temperature 98.1 [degF] [facility] [place] 04-22-2020 13:07-0400 Body weight 112.22 kg Michellesergio [facility] , [place] 04-22-2020 13:07-0400 Respiratory Rate 18 /min [facility] [place] 04-21-2020 15:14-0400 Body Temperature 97.5 [degF] [facility], [place] 04-21-2020 15:14-0400 BP Diastolic 78 mm[Hg] [facility] [place] , [place] 04-21-2020 15:14-0400 BP Systolic 146 mm[Hg] [facility] [place] , [place] 04-21-2020 15:14-0400 Pulse (Heart Rate) 66 /min Michellesergio [facility] [place], [place] 04-21-2020 15:14-0400 Respiratory Rate 16 /min [facility]hellesergio [facility], [place] 04-21-2020 12:56-0400 BMI (Body Mass Index) 35.24 kg/m2 [facility] [place] 04-21-2020 12:56-0400 Body weight 111.4 kg [facility] , [place] 04-21-2020 12:56-0400 Pulse Oximetry 95 % [facility] , [place] 04-20-2020 16:35-0400 Body Temperature 98.1 [degF] [facility], [place] 04-20-2020 16:35-0400 BP Diastolic 79 mm[Hg] [facility] , [place] 04-20-2020 16:35-0400 BP Systolic 137 mm[Hg] [facility] , [place] 04-20-2020 16:35-0400 Pulse (Heart Rate) 81 /min [facility], [place] 04-20-2020 16:35-0400 Respiratory Rate 16 /min [facility] [place] 04-20-2020 09:54-0400 BMI (Body Mass Index) 34.67 kg/m2 [facility], [place] 04-20-2020 09:54-0400 Body weight 109.59 kg [facility] , [place] 04-20-2020 09:54-0400 Height 177.8 cm [facility] , [place] 04-20-2020 09:54-0400 Pulse Oximetry 98 % [facility] , [place] 04-19-2020 13:04-0400 BMI (Body Mass Index) 34.68 kg/m2 [facility], [place] 04-19-2020 13:04-0400 Body Temperature 98.2 [degF] [facility], [place] 04-19-2020 13:04-0400 Body weight 109.63 kg [facility] , [place] 04-19-2020 13:04-0400 BP Diastolic 82 mm[Hg] [facility] , [place] 04-19-2020 13:04-0400 BP Systolic 147 mm[Hg] [facility] , [place] 04-19-2020 13:04-0400 Pulse (Heart Rate) 81 /min Michelle [facility], [place] 04-19-2020 13:04-0400 Respiratory Rate 18 /min Michelle [facility], [place] 03-04-2020 14:02-0400 BP Diastolic 81 mm[Hg] Hilaria [facility] , [place] 03-04-2020 14:02-0400 BP Systolic 135 mm[Hg] Hilaria [facility] , [place] 03-04-2020 14:02-0400 Pulse (Heart Rate) 65 /min Hilaria [facility], [place] 03-04-2020 14:02-0400 Pulse Oximetry 98 % Hilaria [facility] , [place] 03-04-2020 14:02-0400 Respiratory Rate 16 /min Hilaria [facility], [place] 03-04-2020 13:00-0400 Body Temperature 97.81 [degF] Hilaria [facility], [place] 03-04-2020 10:45-0400 BMI (Body Mass Index) 36.41 kg/m2 Hilaria [facility], [place] 03-04-2020 10:45-0400 Body weight 111.84 kg Hilaria [facility] , [place] 03-04-2020 10:45-0400 Height 175.3 cm Hilaria [facility] , [place] Encounters Encounter Date Encounter Type Care Provider Facility Start: 06-03-2025 End: 06-03-2025 Emergency department patient visit John Springer Facility:[facility] Start: 05-21-2025 End: 05-27-2025 Telephone encounter Ritu Nunez PA-C Work Phone: [facility] - Yolanda Chauhan Comment on above: Other (Release from [facility] / sooner appt request ) Start: 10-11-2024 End: 10-30-2024 Evaluation and management of inpatient JOHN SPRINGER Facility:[facility] Start: 10-08-2024 End: 10-10-2024 Admission to [facility] Scarlet Gerber [facility] Behavioral Health Intake Comment on above: Request Inpatient Ad mission To Behavioral Health Service Start: 09-21-2024 End: 10-11-2024 Evaluation and management of inpatient DOMONIQUE SOLER Facility:[facility] Start: 09-20-2024 Emergency department patient visit Facility:[facility] Start: 09-20-2024 End: 10-03-2024 Admission to establishment Josue Krueger [facility] Work Phone: Behavioral Health Intake Start: 09-20-2024 End: 10-03-2024 ambulatory Josue Pati [facility] Work Phone: Behavioral Health Intake Comment on above: Psychiatric Problem (Pt arrived via medic after episode of intox at home. Medic states brother said he just wants to drink himself to . On CSS questions pt denies current SI and HI. States he attempted to harm self in the past years ago but does not remember when. Oriented to self only at this time. Notably intoxicated. States he has had atleast 10 drinks today of liquor. [place], warm, dry. Pt denies any desire to quit drinking and I want to drink more [place].) Psychiatric Problem; Opened In Error Start: 08-24-2024 End: 08-24-2024 [facility] Start: 08-11-2024 Emergency department patient visit Facility:[facility] Start: 07-30-2024 End: 07-30-2024 Emergency department patient visit [facility] Facility:[facility] Start: 07-12-2024 End: 07-18-2024 Telephone encounter Zeus Barrett MD Work Phone: [employer] [facility] Comment on above: Other; Advice Only Start: 07-11-2024 End: 07-15-2024 Evaluation and management of inpatient Maggie Chairez Work Phone: [facility] Detox Unit 4E Comment on above: MARKOS (acute kidney in jury) (HCC) (Primary Dx); Hyponatremia; Alcohol withdrawal syndrome without complication (HCC) Start: 07-08-2024 End: 07-09-2024 Emergency department patient visit [facility] Facility:[facility] Start: 10-17-2023 Evaluation and management of inpatient TACHO ROBERTS [facility] Start: 10-17-2023 Evaluation and management of inpatient KELECHI MILES [facility] Start: 10-17-2023 Non-patient / Non-visit Dr. Jumana Springer Work Phone: [facility] Work Phone: Start: 10-16-2023 Non-patient / Non-visit Dr. Jumana Springer Work Phone: [facility] Start: 10-15-2023 Non-patient / Non-visit Dr. Jumana Springer Work Phone: [facility] Start: 10-15-2023 End: 10-17-2023 Evaluation and management of inpatient [facility] Work Phone: Start: 10-14-2023 Telephone encounter Kenton Man MD Work Phone: [facility] Start: 09-12-2023 [facility] Start: 09-11-2023 Evaluation and management of inpatient MARKIE MCCARTHY [facility] Start: 09-10-2023 Evaluation and management of inpatient [facility] Start: 09-09-2023 Evaluation and management of inpatient [facility] Start: 09-08-2023 Evaluation and management of inpatient JEANNIE MAGANA [facility] Start: 09-08-2023 Emergency department patient visit HOUSTONDAWSONWinter WILKINSON [facility] Start: 09-08-2023 Emergency department patient visit ARMEN PACHECO [facility] Start: 09-08-2023 End: 09-15-2023 Evaluation and management of inpatient JACINTO KAY [facility] Start: 08-11-2023 End: 08-22-2023 Evaluation and management of inpatient Sofya Arreola MD Work Phone: [facility] Cardiac Progressive Care Unit PCU 2E Start: 05-30-2023 Non-patient / Non-visit Dr. Jumana Springer Work Phone: [facility] Work Phone: Start: 05-29-2023 Non-patient / Non-visit Dr. Jumana Springer Work Phone: [facility] Work Phone: Start: 05-28-2023 Non-patient / Non-visit Dr. Jumana Springer Work Phone: [facility] Work Phone: Start: 05-27-2023 Non-patient / Non-visit [facility]. Jumana Springer [facility] Work Phone: Start: 05-26-2023 Non-patient / Non-visit Dr. Jumana Springer Work Phone: [facility] Work Phone: Start: 05-25-2023 Non-patient / Non-visit Dr. Jumana Springer Work Phone: [facility] Work Phone: Start: 05-24-2023 Non-patient / Non-visit Dr. Jumana Springer Work Phone: [facility] Work Phone: Start: 05-23-2023 Non-patient / Non-visit Dr. Jumana Springer Work Phone: [facility] Work Phone: Start: 05-22-2023 Non-patient / Non-visit Dr. Jumana Springer Work Phone: [facility] Work Phone: Start: 05-21-2023 Non-patient / Non-visit Dr. Jumana Springer Work Phone: [facility] Work Phone: Start: 05-20-2023 Non-patient / Non-visit Dr. Jumana Springer Work Phone: [facility] Work Phone: Start: 05-19-2023 Non-patient / Non-visit Dr. Jumana Springer Work Phone: [facility] Work Phone: Start: 05-18-2023 Non-patient / Non-visit Dr. Jumana Springer Work Phone: [facility] Work Phone: Start: 05-18-2023 Non-patient / Non-visit Dr. Jumana Springer Work Phone: [facility] Start: 05-17-2023 Non-patient / Non-visit Dr. Jumana Springer Work Phone: [facility] Work Phone: Start: 05-17-2023 Non-patient / Non-visit Dr. Jumana Springer Work Phone: [facility] Start: 05-16-2023 Non-patient / Non-visit Dr. Jumana Springer Work Phone: [facility] Work Phone: Start: 05-16-2023 End: 05-30-2023 Evaluation and management of inpatient Dr. John Springer Work Phone: [facility] Surgical 3 Work Phone: Start: 04-16-2023 End: 04-16-2023 Emergency department patient visit Dr. Kelechi Miles Work Phone: [facility]Emer[facility] Work Phone: Start: 03-06-2023 End: 03-06-2023 Emergency department patient visit Dr. Kelechi Miles Work Phone: [facility]Emer[facility] Work Phone: Start: 02-27-2023 Non-patient / Non-visit Dr. Lawson Work Phone: [facility] Work Phone: Start: 02-26-2023 Non-patient / Non-visit Dr. Lawson Work Phone: [facility] Work Phone: Start: 02-26-2023 End: 02-27-2023 Evaluation and management of inpatient Dr. [facility]lechi Miles [facility]: Start: 02-26-2023 End: 02-27-[address] Kelechi Miles Work Phone: [facility] Work Phone: Start: 02-24-2023 End: 02-25-2023 Emergency department patient visit Dr. Kelechi Miles Work Phone: [facility] Work Phone: Start: 02-18-2023 End: 02-19-2023 Emergency department patient visit Dr. Kelechi Miles Work Phone: [facility] Work Phone: Start: 01-27-2023 End: 01-28-2023 Emergency department patient visit TITI INMAN [facility] Start: 01-27-2023 End: 01-28-2023 Emergency department patient visit Titi Inman MD Work Phone: [facility] EMERGENCY DEPT Comment on above: Fall, initial encoun ter (Primary Dx); Head injury, initial encounter; Laceration of scalp, initial encounter; Alcoholic intoxication with complication (CMS/HCC) (HCC); Hypoglycemia; Hypocalcemia; Hyponatremia Start: 01-08-2023 Non-patient / Non-visit Dr. Lawson Work Phone: [facility] Work Phone: Start: 01-07-2023 Non-patient / Non-visit Dr. Lawson Work Phone: [facility] Work Phone: Start: 01-06-2023 Non-patient / Non-visit Dr. Lawson Work Phone: [facility] Work Phone: Start: 01-05-2023 Non-patient / Non-visit Dr. Lawson Work Phone: [facility] Start: 01-05-2023 End: 01-08-2023 Evaluation and management of inpatient Dr. Kelechi Miles Work Phone: [facility] Surgical 3 Start: 12-23-2022 Non-patient / Non-visit Dr. Lawson Work Phone: [facility] Inpatient Physicians Start: 12-22-2022 Non-patient / Non-visit Dr. Lawson Work Phone: [facility] Start: 12-22-2022 Non-patient / Non-visit Dr. Lawson Work Phone: [facility] Inpatient Physicians Start: 12-21-2022 Non-patient / Non-visit Dr. Lawson Work Phone: [facility] Start: 12-21-2022 Non-patient / Non-visit Dr. Lawson Work Phone: [facility] Inpatient Physicians Start: 12-20-2022 Non-patient / Non-visit Dr. Lawson Work Phone: [facility] Start: 12-20-2022 Non-patient / Non-visit Dr. Lawson Work Phone: [facility] Inpatient Physicians Start: 12-19-2022 Non-patient / Non-visit Dr. Lawson Work Phone: [facility] Physicians Start: 12-18-2022 Non-patient / Non-visit Dr. Lawson Work Phone: [facility] Physicians Start: 12-17-2022 Non-patient / Non-visit Dr. Lawson Work Phone: [facility] Physicians Start: 12-16-2022 Non-patient / Non-visit Dr. Lawson Work Phone: [facility] Physicians Start: 12-15-2022 Non-patient / Non-visit Dr. Lawson Work Phone: [facility] Physicians Start: 12-14-2022 Non-patient / Non-visit Dr. Lawson Work Phone: [facility] Start: 12-14-2022 Non-patient / Non-visit Dr. Lawson Work Phone: [facility] Physicians Start: 12-13-2022 Non-patient / Non-visit Dr. Lawson Work Phone: [facility] Start: 12-13-2022 Non-patient / Non-visit Dr. Lawson Work Phone: [facility] Physicians Start: 12-12-2022 Non-patient / Non-visit Dr. Lawson Work Phone: [facility] In[facility] Physicians Start: 12-12-2022 End: 12-23-2022 Evaluation and management of inpatient Dr. Kelechi Miles Work Phone: [facility] Surgical 3 Start: 10-12-2022 Telephone encounter John Springer MD Work Phone: [facility] Internal Medicine Comment on above: Results (Patient is calling for his xray results ) Start: 10-11-2022 End: 10-11-2022 Subsequent hospital visit by physician John Springer MD Work Phone: [facility] [address] [employer] X-ray Comment on above: Acute cough Start: 10-11-2022 End: 10-11-2022 Office outpatient visit 25 minutes John Springer MD Work Phone: [facility] Comment on above: Chronic alcohol abus e (Primary Dx); Malignant neoplasm of tonsil (HCC); Chronic obstructive pulmonary disease, unspecified COPD type (HCC); Acute cough; Current moderate episode of major depressive disorder without prior episode (HCC) Start: 08-21-2022 Telephone encounter Michelle kennedy DO Work Phone: [facility] Start: 05-30-2021 End: 05-30-2021 Subsequent hospital visit by physician Jani Suggs MD Work Phone: [facility] Start: 12-21-2020 End: 12-21-2020 Subsequent hospital visit by physician Jani Suggs MD Work Phone: [facility] Start: 11-16-2020 End: 11-16-2020 Subsequent hospital visit by physician Michelle Leavitt DO Work Phone: [facility] Start: 10-01-2020 End: 10-01-2020 Emergency department patient visit Jessica Nick Work Phone: [facility] Emergency Dept Comment on above: Dislocation of finge r, initial encounter (Primary Dx) Start: 10-01-2020 End: 10-01-2020 Subsequent hospital visit by physician Hernan Matamoros Work Phone: [facility] [facility] Comment on above: Swelling of left lit tle finger Start: 09-28-2020 End: 09-28-2020 Subsequent hospital visit by physician Jani Suggs Work Phone: [facility] Start: 08-17-2020 End: 08-17-2020 Subsequent hospital visit by physician Michelle Leavitt [facility] Phone: [facility] Start: 07-22-2020 End: 07-22-2020 Emergency department patient visit Frank Cancino Work Phone: [facility] ED Comment on above: Closed head injury, initial encounter (Primary Dx); Laceration of scalp, initial encounter; Acute alcoholic intoxication without complication (HCC) Start: 07-13-2020 End: 07-13-2020 Subsequent hospital visit by physician Jani Suggs Work Phone: [facility] Start: 07-13-2020 End: 07-13-2020 Subsequent hospital visit by physician Jani Suggs Work Phone: [facility] Start: 07-06-2020 End: 07-06-2020 Subsequent hospital visit by physician Michelle Leavitt Work Phone: [facility] Comment on above: Arrived Start: 06-29-2020 End: 06-29-2020 Subsequent hospital visit by physician Michelle Leavitt Work Phone: [facility] Comment on above: Malignant neoplasm o f tonsil (HCC) (Primary Dx) Start: 06-23-2020 End: 06-23-2020 Subsequent hospital visit by physician Michelle Leavitt Work Phone: [facility] Comment on above: Malignant neoplasm o f tonsil (HCC) (Primary Dx) Start: 06-22-2020 End: 06-22-2020 Subsequent hospital visit by physician Michelle Leavitt Work Phone: [facility] Comment on above: Malignant neoplasm o f tonsil (HCC) (Primary Dx) Start: 06-18-2020 End: 06-18-2020 Subsequent hospital visit by physician Jani Suggs Work Phone: [facility] Start: 06-18-2020 End: 06-18-2020 Subsequent hospital visit by physician Michelle Leavitt Work Phone: [facility] Comment on above: Malignant neoplasm o f tonsil (HCC) (Primary Dx) Start: 06-08-2020 End: 06-08-2020 Subsequent hospital visit by physician Jani Suggs Work Phone: [facility] Comment on above: Malignant neoplasm o f tonsil (HCC) (Primary Dx) Start: 06-07-2020 End: 06-08-2020 Subsequent hospital visit by physician Jani Suggs Work Phone: [facility] Start: 06-04-2020 End: 06-04-2020 Subsequent hospital visit by physician Jani Suggs Work Phone: [facility] Start: 06-03-2020 End: 06-03-2020 Subsequent hospital visit by physician Michelle Leavitt Work Phone: [facility] Comment on above: Malignant neoplasm o f tonsil (HCC) (Primary Dx) Start: 06-02-2020 End: 06-02-2020 Subsequent hospital visit by physician Jani Suggs Work Phone: [facility] Start: 06-01-2020 End: 06-01-2020 Subsequent hospital visit by physician Jani Suggs Work Phone: [facility] Start: 06-01-2020 End: 06-01-2020 Subsequent hospital visit by physician Michelle Leavitt Work Phone: [facility] Comment on above: Malignant neoplasm o f tonsil (HCC) (Primary Dx) Start: 05-31-2020 End: 05-31-2020 Subsequent hospital visit by physician Jani Suggs Work Phone: [facility] Start: 05-31-2020 End: 05-31-2020 Subsequent hospital visit by physician Jani Suggs Work Phone: [facility] Start: 05-26-2020 End: 05-26-2020 Subsequent hospital visit by physician Michelle Leavitt Work Phone: [facility] Comment on above: Malignant neoplasm o f tonsil (HCC) (Primary Dx) Start: 05-25-2020 End: 05-26-2020 Subsequent hospital visit by physician Michelle Leavitt Work Phone: [facility] Comment on above: Malignant neoplasm o f tonsil (HCC) (Primary Dx) Start: 05-24-2020 End: 05-24-2020 Subsequent hospital visit by physician Jani Suggs Work Phone: [facility] Start: 05-21-2020 End: 05-21-2020 Subsequent hospital visit by [facility] Start: 05-21-2020 End: 05-21-2020 Subsequent hospital visit by physician Michelle Leavitt Work Phone: [facility] Comment on above: Malignant neoplasm o f tonsil (HCC) (Primary Dx) Start: 05-20-2020 End: 05-20-2020 Subsequent hospital visit by physician Jani Sug[facility] Start: 05-20-2020 End: 05-20-2020 Subsequent hospital visit by physician Michelle Leavitt Work Phone: [facility] Comment on above: Malignant neoplasm o f tonsil (HCC) (Primary Dx) Start: 05-19-2020 End: 05-19-2020 Subsequent hospital visit by physician Jani Suggs [facility] Phone[facility] Comment on above: Malignant neoplasm o f tonsil (HCC) (Primary Dx); Encounter for chemotherapy management Start: 05-18-2020 End: 05-18-2020 Subsequent hospital visit by physician Jani Suggs Work Phone: [facility] Start: 05-18-2020 End: 05-18-2020 Subsequent hospital visit by physician Michelle Leavitt Work Phone: [facility] Comment on above: Malignant neoplasm o f tonsil (HCC) (Primary Dx) Start: 05-17-2020 End: 05-17-2020 Subsequent hospital visit by physician Jani Glover Deanslist Work Phone: [facility] Start: 05-14-2020 End: 05-14-2020 Subsequent hospital visit by physician Jani Glover Suggs Work Phone: [facility] Start: 05-13-2020 End: 05-13-2020 Subsequent hospital visit by physician Jani Glover Deanslist Work Phone: [facility] Start: 05-12-2020 End: 05-12-2020 Subsequent hospital visit by physician Jani Glover Deanslist Work Phone: [facility] Start: 05-11-2020 End: 05-11-2020 Subsequent hospital visit by physician Jani Glover Deanslist Work Phone: [facility] Start: 05-11-2020 End: 05-12-2020 Subsequent hospital visit by physician Michelle Leavitt Work Phone: [facility] Comment on above: Malignant neoplasm o f tonsil (HCC) (Primary Dx) Start: 05-10-2020 End: 05-10-2020 Subsequent hospital visit by physician Jani Glover Deanslist Work Phone: [facility] Start: 05-07-2020 End: 05-07-2020 Subsequent hospital visit by physician Jani Glover Deanslist Work Phone: [facility] Start: 05-06-2020 End: 05-06-2020 Subsequent hospital visit by physician Jani Glover Deanslist Work Phone: [facility] Start: 05-05-2020 End: 05-05-2020 Subsequent hospital visit by physician Jani Glover Deanslist Work Phone: [facility] Start: 05-04-2020 End: 05-04-2020 Subsequent hospital visit by physician Jani Glover Deanslist Work Phone: [facility] Start: 05-03-2020 End: 05-03-2020 Subsequent hospital visit by physician Jani Glover Deanslist Work Phone: [facility] Start: 04-30-2020 End: 04-30-2020 Subsequent hospital visit by physician Jani Glover Suggs Work Phone: [facility] Start: 04-29-2020 End: 04-29-2020 Subsequent hospital visit by physician Jani Glover Suggs Work Phone: [facility] Start: 04-28-2020 End: 04-28-2020 Subsequent hospital visit by physician Jani Glover Suggs Work Phone: [facility] Start: 04-27-2020 End: 04-27-2020 Subsequent hospital visit by physician Michelle Leavitt Work Phone: [facility] Start: 04-26-2020 End: 04-26-2020 Subsequent hospital visit by physician Jani Glover Deanslist Work Phone: [facility] Start: 04-22-2020 End: 04-22-2020 Subsequent hospital visit by physician Jani Glover Suggs Work Phone: [facility] Comment on above: Malignant neoplasm o f tonsil (HCC) (Primary Dx) Start: 04-21-2020 End: 04-21-2020 Subsequent hospital visit by physician Michelle Leavitt Work Phone: [facility] Comment on above: Malignant neoplasm o f tonsil (HCC) (Primary Dx) Start: 04-20-2020 End: 04-20-2020 Subsequent hospital visit by physician Michelle Leavitt Work Phone: [facility] Comment on above: Malignant neoplasm o f tonsil (HCC) (Primary Dx) Start: 04-19-2020 End: 04-19-2020 Subsequent hospital visit by physician Jani Glover Suggs Work Phone: [facility] Comment on above: Arrived Start: 04-16-2020 End: 04-16-2020 Subsequent hospital visit by physician Jani Glover Suggs Work Phone: [facility] Start: 04-08-2020 End: 04-08-2020 Subsequent hospital visit by physician Jani Suggs Work Phone: [facility] Start: 04-08-2020 End: 04-08-2020 Subsequent hospital visit by physician Jani Glover Suggs Work Phone: [facility] Start: 04-02-2020 End: 04-02-2020 Subsequent hospital visit by physician Hilaira Steiner Work Phone: [facility] Comment on above: Arrived Start: 03-23-2020 End: 03-23-2020 Subsequent hospital visit [facility] Start: 03-23-2020 End: 03-23-2020 Subsequent hospital visit by physician Jani Glover Suggs Work Phone: [facility] Start: 03-04-2020 End: 03-04-2020 Subsequent hospital visit by physician Hilaria Steiner Work Phone: 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) Start: 06-29-2017 Ambulatory Jesse Espinal Fac ility:[facility] Start: 06-29-2017 End: 06-29-2017 Ambulatory JESSE ESPINAL Facility:[facility] Procedures Date Procedure Procedure Detail Performing Clinician Start: 09-22-2024 Echocardiography DOMONIQUE SOLER Start: 07-15-2024 Comprehensive metabolic panel Rolando mays MD Work Phone: Start: 07-14-2024 Comprehensive metabolic panel Junior fried MD Work Phone: Start: 07-13-2024 Comprehensive metabolic panel Junior fried MD Work Phone: Start: 07-12-2024 Glucose quantitative blood xcpt reagent strip Connor Mckeon DO Work Phone: Start: 07-12-2024 Glucose quantitative blood xcpt reagent strip Connor Mckeon DO Work Phone: Start: 07-12-2024 Glucose quantitative blood xcpt reagent strip Connor Mckeon DO Work Phone: Start: 07-12-2024 Comprehensive metabolic panel Junior fried MD Work Phone: Start: 07-11-2024 SARS-CoV-2 (COVID-19) Ag [Presence] in Respiratory specimen by Rapid immunoassay Raymond Hernandez MD Work Phone: Start: 07-11-2024 Comprehensive metabolic panel Raymond webster MD Work Phone: Start: 07-11-2024 End: 07-11-2024 Drug test def 1-7 classes Raymond danielle MD Work Phone: Start: 07-11-2024 Radex ribs uni w/posteroant ch minimum 3 views Raymond Hernandez MD Work Phone: Start: 07-11-2024 Ct cervical spine w/o contrast material Raymond Hernandez MD Work Phone: Start: 07-11-2024 Ct head/brain w/o contrast material Rafael Hernandez MD Work Phone: Start: 07-11-2024 Ecg routine ecg w/least 12 lds trcg only w/o i&r Raymond Hernandez MD Work Phone: Start: 10-14-2023 Plain chest X-ray Start: 10-14-[address] John Springer Work Phone: Start: 08-22-2023 Glucose quantitative blood xcpt reagent strip Adam Guzman MD Work Phone: Start: 08-22-2023 Glucose quantitative blood xcpt reagent strip Adam Guzman MD Work Phone: Start: 08-21-2023 Glucose quantitative blood xcpt reagent strip Adam Guzman MD Work Phone: Start: 08-21-2023 Glucose quantitative blood xcpt reagent strip Adam Guzman MD Work Phone: Start: 08-21-2023 Glucose quantitative blood xcpt reagent strip Adam Guzman MD Work Phone: Start: 08-21-2023 Glucose quantitative blood xcpt reagent strip Adam Guzman MD Work Phone: Start: 08-21-2023 Comprehensive metabolic panel Nichole landeros MD Work Phone: Start: 08-21-2023 Iaad ia hiv-1 ag w/hiv-1 & hiv-2 antbdy single Evelina Adler DO Work Phone: Start: 08-21-2023 Syphilis test non-treponemal antibody qual Evelina Adler DO Work Phone: Start: 08-20-2023 Glucose quantitative blood xcpt reagent strip Nichole Stephens MD Work Phone: Start: 08-20-2023 Glucose quantitative blood xcpt reagent strip Nichole Stephens MD Work Phone: Start: 08-20-2023 Glucose quantitative blood xcpt reagent strip Nichole Stephens MD Work Phone: Start: 08-20-2023 Glucose quantitative blood xcpt reagent strip Nichole Stephens MD Work Phone: Start: 08-20-2023 Glucose quantitative blood xcpt reagent strip Nichole Stephens MD Work Phone: Start: 08-20-2023 Comprehensive metabolic panel Nicohle landeros MD Work Phone: Start: 08-19-2023 Glucose quantitative blood xcpt reagent strip Nichole Stephens MD Work Phone: Start: 08-19-2023 Glucose quantitative blood xcpt reagent strip Nichole Stephens MD Work Phone: Start: 08-19-2023 Glucose quantitative blood xcpt reagent strip Nichole Stephens MD Work Phone: Start: 08-19-2023 Glucose quantitative blood xcpt reagent strip Nichole Stephens MD Work Phone: Start: 08-18-2023 Glucose quantitative blood xcpt reagent strip Nichole Stephens MD Work Phone: Start: 08-18-2023 Glucose quantitative blood xcpt reagent strip Nichole Stephens MD Work Phone: Start: 08-18-2023 Glucose quantitative blood xcpt reagent strip Nichole Stephens MD Work Phone: Start: 08-18-2023 Glucose quantitative blood xcpt reagent strip Nichole Stephens MD Work Phone: Start: 08-18-2023 Comprehensive metabolic panel Talisha burks MD Work Phone: Start: 08-17-2023 Glucose quantitative blood xcpt reagent strip Talisha Patricia MD Work Phone: Start: 08-17-2023 Glucose quantitative blood xcpt reagent strip Talisha Patricia MD Work Phone: Start: 08-17-2023 Glucose quantitative blood xcpt reagent strip Talisha Patricia MD Work Phone: Start: 08-17-2023 Glucose quantitative blood xcpt reagent strip Talisha Patricia MD Work Phone: Start: 08-17-2023 Comprehensive metabolic panel Talisha burks MD Work Phone: Start: 08-16-2023 Glucose quantitative blood xcpt reagent strip Talisha Patricia MD Work Phone: Start: 08-16-2023 Glucose quantitative blood xcpt reagent strip Talisha Patricia MD Work Phone: Start: 08-16-2023 Glucose quantitative blood xcpt reagent strip Talisha Patricia MD Work Phone: Start: 08-16-2023 Glucose quantitative blood xcpt reagent strip Talisha Patricia MD Work Phone: Start: 08-16-2023 Comprehensive metabolic panel Talisha burks MD Work Phone: Start: 08-15-2023 Glucose quantitative blood xcpt reagent strip Talisha Patricia MD Work Phone: Start: 08-15-2023 Glucose quantitative blood xcpt reagent strip Talisha Patricia MD Work Phone: Start: 08-15-2023 Glucose quantitative blood xcpt reagent strip Talisha Patricia MD Work Phone: Start: 08-15-2023 Glucose quantitative blood xcpt reagent strip Talisha Patricia MD Work Phone: Start: 08-15-2023 Comprehensive metabolic panel Talisha burks MD Work Phone: Start: 08-14-2023 Glucose quantitative blood xcpt reagent strip Talisha Patricia MD Work Phone: Start: 08-14-2023 Glucose quantitative blood xcpt reagent strip Talisha Patricia MD Work Phone: Start: 08-14-2023 Glucose quantitative blood xcpt reagent strip Talisha Patricia MD Work Phone: Start: 08-14-2023 Glucose quantitative blood xcpt reagent strip Talisha Patricia MD Work Phone: Start: 08-14-2023 Glucose quantitative blood xcpt reagent strip Talihsa Patricia MD Work Phone: Start: 08-14-2023 Glucose quantitative blood xcpt reagent strip Talisha Patricia MD Work Phone: Start: 08-14-2023 Comprehensive metabolic panel Talisha burks MD Work Phone: Start: 08-13-2023 Glucose quantitative blood xcpt reagent strip Talisha Patricia MD Work Phone: Start: 08-13-2023 Glucose quantitative blood xcpt reagent strip Talisha Patricia MD Work Phone: Start: 08-13-2023 Glucose quantitative blood xcpt reagent strip Talisha Patricia MD Work Phone: Start: 08-13-2023 Glucose quantitative blood xcpt reagent strip Gilson Ley MD Work Phone: Start: 08-13-2023 Ecg routine ecg w/least 12 lds trcg only w/o i&r Yarelis Chapa [employer] Work Phone: Start: 08-12-2023 Glucose quantitative blood xcpt reagent strip Gilson Ley MD Work Phone: Start: 08-12-2023 Glucose quantitative blood xcpt reagent strip Gilson Ley MD Work Phone: Start: 08-12-2023 Glucose quantitative blood xcpt reagent strip Gilson Ley MD Work Phone: Start: 08-12-2023 Echo tthrc r-t 2d w/wom-mode compl spec&colr d Yarelis Glover Sammi [employer] Work Phone: Start: 08-12-2023 End: 08-12-2023 Assay of ammonia Gilson Ley MD Work Phone: Start: 08-12-2023 Ecg routine ecg w/least 12 lds trcg only w/o i&r Yarelis Glover Sammi [employer] Work Phone: Start: 08-12-2023 Comprehensive metabolic panel Yarelis martinez [employer] Work Phone: Start: 08-11-2023 Glucose quantitative blood xcpt reagent strip Adam Guzman MD Work Phone: Start: 08-11-2023 Glucose quantitative blood xcpt reagent strip Sofya Arreola MD Work Phone: Start: 08-11-2023 Ecg routine ecg w/least 12 lds trcg only w/o i&r Yarelis Glover Sammi [employer] Work Phone: Start: 08-11-2023 Assay of thyroid stimulating hormone tsh Yarelis Glover Sammi [employer] Work Phone: Start: 08-11-2023 ETHYL GLUCURONIDE SCREEN, URINE Brenden Engel MD Work Phone: Start: 08-11-2023 UNCONFIRMED DRUG SCREEN Yarelis Chapa [employer] Work Phone: Start: 08-11-2023 Ct head/brain w/o contrast material Cesar vikash Arreola MD Work Phone: Start: 08-11-2023 Assay of lactate Sofya Arreola MD Work Phone: Start: 08-11-2023 Radiologic exam chest single view Josesito Echevarria [employer] - [facility] Work Phone: Start: 08-11-2023 Blood gases any combination ph pco2 po2 co2 hco3 Sofya Arreola MD Work Phone: Start: 08-11-2023 HC SARSCOV2&INF A&B&RSV AMP PRB Josesito moran [employer] - [facility] Work Phone: Start: 08-11-2023 Comprehensive metabolic panel Josesito araya [employer] - [facility] Work Phone: Start: 08-11-2023 Drug test def 1-7 classes Josesito Echevarria [employer] - [facility] Work Phone: Start: 08-11-2023 End: 08-11-2023 Ecg routine ecg w/least 12 lds trcg only w/o i&r Sofay Arreola MD Work Phone: Start: 05-16-2023 Plain chest X-ray Dr. John Springer Work Phone: Start: 05-16-2023 CT of head without contrast Dr. Lupillo Springer Work Phone: Start: 02-24-2023 CT of head without contrast Dr. Kelechi jean Work Phone: Start: 02-19-2023 CT of head without contrast Dr. Kelechi jean Work Phone: Start: 01-28-2023 POCT GLUCOSE METER UNSOLICITED RESULTS Generic Provider Poct Start: 01-28-2023 Assay of lactate Titi Inman MD Work Phone: Start: 01-27-2023 Glucose quantitative blood xcpt reagent strip Titi Inman MD Work Phone: Start: 01-27-2023 Drug tst prsmv instrmnt chem analyzers pr date Titi Inman MD Work Phone: Start: 01-27-2023 Ct cervical spine w/o contrast material Titi Inman MD Work Phone: Start: 01-27-2023 Ct head/brain w/o contrast material Karl Inman MD Work Phone: Start: 01-27-2023 Ct thorax w/o contrast material Titi Inman MD Work Phone: Start: 01-27-2023 ABO and Rh group [Type] in Blood by Confirmatory method Titi Inman MD Work Phone: Start: 01-27-2023 Basic metabolic panel calcium total Karl Inman MD Work Phone: Start: 01-27-2023 Drug test def 1-7 classes Titi vasques MD Work Phone: Start: 12-21-[address] Kelechi deshpande Work Phone: Start: 12-18-[address] Kelechi nichole Work Phone: Start: 12-18-2022 Plain x-ray of elbow Dr. Kelechi Miles Work Phone: Start: 12-13-[address] Kelechi deshpande Work Phone: Start: 12-12-2022 CT of chest and abdomen Dr. Kelechi nichole Work Phone: Start: 12-12-2022 Plain chest X-ray Dr. Kelechi Miles Work Phone: Start: 12-12-2022 CT of head without contrast Dr. Kelechi jean Work Phone: Start: 12-12-2022 Measurement of occult blood in stool specimen using immunoassay Dr. Kelechi Miles Work Phone: Start: 12-12-2022 Respiratory Panel (PCR) Dr. Kelechi nichole Work Phone: Start: 10-11-2022 Radiologic exam chest 2 views John Springer MD Work Phone: Start: 12-23-2021 Lipid 1996 panel - Serum or Plasma Teres a Dagmar DO Work Phone: Start: 05-30-2021 Assay of thyroid stimulating hormone tsh Jani Sgugs MD Work Phone: Start: 10-01-2020 Radex fingr minimum 2 views Jessica bethea Work Phone: Start: 10-01-2020 Radex hand minimum 3 views Hernan Thayermisael lee Work Phone: Start: 07-22-2020 Ct cervical spine w/o contrast material Frank Deranek Work Phone: Start: 07-22-2020 Ct head/brain w/o contrast material Frank Deranek Work Phone: Start: 06-29-2020 Comprehensive metabolic panel Michelle E G oebel Work Phone: Start: 06-22-2020 Comprehensive metabolic panel Michelle E G oebel Work Phone: Start: 06-18-2020 Blood count complete auto&auto difrntl wbc Michelle E Dagmar Work Phone: Start: 06-18-2020 Comprehensive metabolic panel Michelle E G oebel Work Phone: Start: 06-01-2020 Assay of magnesium Michelle E Dagmar Work Phone: Start: 06-01-2020 Blood count complete auto&auto difrntl wbc Michelle E Dagmar Work Phone: Start: 06-01-2020 Comprehensive metabolic panel Michelle E G oebel Work Phone: Start: 05-25-2020 Comprehensive metabolic panel Michelle E G oebel Work Phone: Start: 05-19-2020 Comprehensive metabolic panel Michelle E G oebel Work Phone: Start: 05-18-2020 Assay of magnesium Michelle E Dagmar Work Phone: Start: 05-18-2020 Blood count complete auto&auto difrntl wbc Michelle Triana Dagmar Work Phone: Start: 05-18-2020 Comprehensive metabolic panel Michelle kennedy Work Phone: Start: 05-13-2020 Blood count complete auto&auto difrntl wbc Jani B Es Work Phone: Start: 05-11-2020 Assay of magnesium Michelle Leavitt Work Phone: Start: 05-11-2020 Blood count complete auto&auto difrntl wbc Michelle Leavitt Work Phone: Start: 05-11-2020 Comprehensive metabolic panel Michelle kennedy Work Phone: Start: 04-02-[address] attenuation skull base mid-thigh Hilaria Steiner Work Phone: Start: 03-04-2020 OPERATIVE REPORT 3m Scanning Start: 03-04-2020 Gluc bld gluc mntr dev cleared fda spec home use Hilaria Steiner Work Phone: Start: 06-29-2017 Colonoscopy Kenton Man MD Work Phone: Respiratory Panel (PCR) Dr. Kelechi Miles Work Phone: Plan of Treatment Date Care Activity Detail Author Start: 07-08-2034 Urine microalbumin profile DTa P,Tdap,Td Vaccine (3 - Td or Tdap) [facility] Start: 02-24-2033 DTaP/Tdap/Td Vaccine s (2 - Td or Tdap) DTaP/Tdap/Td Vaccines (2 - Td or Tdap) [facility] Start: 02-24-2033 [facility] Start: 10-09-2027 Diabetes Screening Diabetes Screenin [facility] Start: 10-01-2027 Diabetes Screening Diabetes Screenin [facility] Start: 09-20-2027 Diabetes Screening Diabetes Screenin [facility] Start: 06-29-2027 Screening for malign ant neoplasm of colon [facility] Start: 12-23-2026 Lipid panel [facility] Start: 10-10-2025 Creatinine measurement Serum Creatin ine [facility] Start: 09-30-2025 Creatinine measurement Serum Creatin ine [facility] Start: 09-21-2025 Complete blood count Hemoglobin/Titus tocrit [facility] Start: 09-21-2025 Diabetes mellitus screening Diabetes Screening [facility] Start: 09-20-2025 Creatinine measurement Serum Creatin ine [facility] Start: 07-15-2025 Creatinine measurement Creatinine Le bruna [facility] Start: 07-15-2025 Potassium measurement Potassium Leve l [facility] Start: 06-30-2025 End: 06-30-2025 Patient encounter procedure 06/30/2025 2:00 PM EST Office Visit [facility] [address] [place] [id number] Ritu Nunez, PABharatiC [address] [place] [address] [facility] Start: 03-30-2025 Influenza vaccination Influenza Vacc ine (#1) [facility] Start: 01-15-2025 Lipid panel Lipid screen [facility] [place], [place] Start: 01-12-2025 Depression Monitoring Depression Mon itoring [facility] Start: 08-27-2024 Diabetes mellitus screening Diabetes Screening [facility] Start: 08-21-[address] [facility] Start: 08-21-2024 Potassium measurement S [facility] Start: 08-12-2024 Echocardiography Echocardiogram [facility] Start: 08-12-2024 [facility] Start: 08-11-2024 Diabetes mellitus screening [facility] Start: 07-30-2024 Advance Directive Discussion Advance Directive Discussion [facility] Start: 07-30-2024 Medicare Advantage A nnual Wellness Visit Medicare Advantage Annual Wellness Visit [facility] Start: 03-30-2024 Covid-19 Vaccine ( season) Covid-19 Vaccine ( season) [facility] Start: 03-30-2024 Influenza vaccination Influenza Vacc ine (#1) [facility] Start: 02-10-2024 Depresssion Monitoring Depresssion M onitoring [facility] Start: 02-10-2024 [facility] Start: 11-13-2023 Diabetes screen Diabetes screen [facility] Work Phone: Start: 10-17-2023 Patient discharge [facility] Start: 10-16-2023 Inhalation therapy procedure [facility] Start: 10-15-2023 Referral to occupati onal therapist [facility] Start: 10-15-2023 Referral to service [facility] Start: 10-15-2023 Ambulation without limitation [facility] Start: 10-15-2023 Assessment of risk o f venous thromboembolism [facility] Start: 10-15-2023 Cardiac monitoring [facility] Start: 10-15-2023 Continuous pulse oximetry [facility] Start: 10-15-2023 Incentive spirometry [facility] Start: 10-15-2023 Insertion of cathete r into peripheral vein [facility] Start: 10-15-2023 Measuring intake and output [facility] Start: 10-15-2023 Oxygen therapy [facility] Start: 10-15-2023 Providing care accor ding to standard [facility] Start: 10-15-2023 Referral to stranding machine operator [facility] Start: 10-15-2023 Vital signs measurements [facility] Start: 10-15-2023 [facility] Start: 10-15-2023 Following clinical p athway protocol [facility] Start: 10-15-2023 Verification routine [facility] Start: 10-15-2023 Admission procedure [facility] Start: 10-15-2023 Hospital admission, emergency, from emergency room, medical nature [facility] Start: 10-15-2023 Consultation [facility] Start: 10-15-2023 Patient referral to dietitian [facility] Start: 10-14-2023 End: 10-15-2023 [facility] Start: 10-14-2023 [facility] Start: 10-14-2023 Bacteria identified in Urine by Culture [facility] Start: 08-28-2023 End: 08-28-2023 ambulatory [facility] Start: 07-30-2023 Medicare Advantage A nnual Wellness Visit Medicare Advantage Annual Wellness Visit [facility] Start: 05-30-2023 Patient discharge [facility] Start: 05-30-2023 [facility] Start: 05-27-2023 [facility] Start: 05-25-2023 [facility] Start: 05-23-2023 Referral to service [facility] Start: 05-22-2023 Patient referral to dietitian [facility] Start: 05-22-2023 Referral to occupati onal therapist [facility] Start: 05-22-2023 Referral to service [facility] Start: 05-18-2023 Care planning and pr oblem solving actions [facility] Start: 05-16-2023 [facility] Start: 05-16-2023 Following clinical p athway protocol [facility] Start: 05-16-2023 Assessment of risk o f venous thromboembolism [facility] Start: 05-16-2023 Notification of physician [facility] Start: 05-16-2023 Vital signs measurements [facility] Start: 05-16-2023 [facility] Start: 05-16-2023 Admission procedure [facility] Start: 04-16-2023 [facility] Start: 03-30-2023 Influenza vaccination [facility] Start: 03-30-2023 [facility] Start: 02-27-2023 Patient discharge [facility] Start: 02-26-2023 Assessment of risk o f venous thromboembolism [facility] Start: 02-26-2023 Notification of physician [facility] Start: 02-26-2023 Provision of activit y privileges [facility] Start: 02-26-2023 Vital signs measurements [facility] Start: 02-26-2023 [facility] Start: 02-26-2023 Following clinical p athway protocol [facility] Start: 02-26-2023 Admission procedure [facility] Start: 02-26-2023 Consultation [facility] Start: 02-26-[facility] Start: 02-18-2023 [facility] Start: 01-08-2023 Patient discharge [facility] Start: 01-08-2023 [facility] Start: 01-05-2023 Following clinical p athway protocol [facility] Start: 01-05-2023 Assessment of risk o f venous thromboembolism [facility] Start: 01-05-2023 Documentation procedure [facility] Start: 01-05-2023 Notification of physician [facility] Start: 01-05-2023 Provision of activit y privileges [facility] Start: 01-05-2023 Vital signs measurements [facility] Start: 01-05-2023 [facility] Start: 01-05-2023 Admission procedure [facility] Start: 01-05-2023 [facility] Start: 01-05-2023 Patient referral to dietitian [facility] Start: 12-23-2022 Diabetes mellitus screening Diabetes Screening [facility] Start: 12-23-2022 Patient discharge [facility] Start: 12-22-2022 [facility] Start: 12-21-2022 Nil by mouth [facility] Start: 12-21-2022 Consultation [facility] Start: 12-20-2022 Catheterization of vein [facility] Start: 12-20-2022 Administration of bl ood product [facility] Start: 12-19-2022 Referral to service [facility] Start: 12-19-2022 Elevation of affecte d extremity [facility] Start: 12-18-2022 Referral to occupati onal therapist [facility] Start: 12-18-2022 Referral to service [facility] Start: 12-17-2022 [facility] Start: 12-16-2022 Consultation [facility] Start: 12-13-2022 Catheterization of vein [facility] Start: 12-13-2022 Following clinical p athway protocol [facility] Start: 12-13-2022 Consultation [facility] Start: 12-13-2022 Patient referral to dietitian [facility] Start: 12-12-2022 Aspiration precautions [facility] Start: 12-12-2022 Assessment of risk o f venous thromboembolism [facility] Start: 12-12-2022 Fall prevention [facility] Start: 12-12-2022 Inhalation therapy procedure [facility] Start: 12-12-2022 Insertion of cathete r into peripheral vein [facility] Start: 12-12-2022 Introduction of urin destiny catheter [facility] Start: 12-12-2022 Measuring intake and output [facility] Start: 12-12-2022 Providing care accor ding to standard [facility] Start: 12-12-2022 Provision of activit y privileges [facility] Start: 12-12-2022 Referral to gastroenterology service [facility] Start: 12-12-2022 Referral to service [facility] Start: 12-12-2022 Vital signs measurements [facility] Start: 12-12-2022 [facility] Start: 12-12-2022 Admission procedure [facility] Start: 12-12-2022 Administration of bl ood product [facility] Start: 11-22-2022 End: 11-22-2022 Patient encounter procedure 11/22/2022 Office Visit Internal Medicine John Springer MD [address] [facility] [address] [place], [place] [id number] [facility] Start: 11-15-2022 End: 11-15-2022 Patient encounter procedure 11/15/2022 Office Visit Hematology and Oncology Michelle Leavitt DO [address] [facility] [address] [place], [place] [id number] [facility] Start: 10-11-2022 End: 10-11-2022 Patient encounter procedure 10/11/2022 Office Visit Internal Medicine John Springer MD [address] [facility] [address] [place] [id number] [facility] Start: 10-11-2022 End: 10-12-2023 CBC panel - Blood by Automated count CBC Lab Routine Chronic alcohol abuse Expected: 10/11/2022 (Approximate), Expires: 10/12/2023 [facility] Work Phone: Comment on above: Expected: 10/11/2022 (Approximate), Expires: 10/12/2023 Start: 10-11-2022 End: 10-12-2023 Comprehensive metabolic 1998 panel - Serum or Plasma Comprehensive metabolic panel Lab Routine Chronic alcohol abuse Expected: 10/11/2022 (Approximate), Expires: 10/12/2023 [facility] Comment on above: Expected: 10/11/2022 (Approximate), Expires: 10/12/2023 Start: 10-11-2022 End: 10-12-2023 Thyrotropin [Units/volume] in Serum or Plasma TSH Lab Routine Chronic alcohol abuse Expected: 10/11/2022 (Approximate), Expires: 10/12/2023 [facility] Comment on above: Expected: 10/11/2022 (Approximate), Expires: 10/12/2023 Start: 10-11-2022 End: 10-12-2023 Vitamin B1 Vitamin B1 Lab Routine Chronic alcohol abuse Expected: 10/11/2022 (Approximate), Expires: 10/12/2023 [facility] Comment on above: Expected: 10/11/2022 (Approximate), Expires: 10/12/2023 Start: 03-30-2022 Influenza vaccination Influenza Vacc ine (#1) [facility] Start: 11-16-2021 End: 11-16-2021 Patient encounter procedure 11/16/2021 Office Visit Hematology and Oncology Michelle Leavitt DO [address] [facility] [address] [place] [address] [phone] [facility] [place] Start: 11-12-2021 Creatinine measurement Creatinine mo [facility] Work Phone: Start: 11-12-2021 [facility] Start: 08-17-2021 [facility] Start: 08-17-2021 [facility] Start: 06-29-2021 Creatinine measurement Creatinine mo [facility] [place] Start: 06-29-[address] Potassium monit [facility] [place] Start: 06-22-2021 Creatinine measurement Creatinine mo [facility] [place] Start: 06-22-[address] Potassium monit [facility] [place] Start: 06-18-2021 Creatinine measurement Creatinine mo [place], [place] Start: 06-18-[address] Potassium monit [facility] [place] Start: 06-01-2021 Creatinine measurement Creatinine mo [facility] [place] Start: 06-01-[address] Potassium monit [facility] [place] Start: 05-25-2021 Creatinine measurement Creatinine mo [place] Start: 05-25-[address] Potassium monit [facility] [place] Start: 05-19-2021 Creatinine measurement Creatinine mo [place] Start: 05-19-[address] Potassium monit [facility] [place] Start: 05-18-2021 Creatinine measurement Creatinine mo [place] Start: 05-18-[address] Potassium monit [facility] [place] Start: 05-11-2021 Creatinine measurement Creatinine mo [place] Start: 05-11-[address] Potassium monit [facility] [place] Start: 04-08-2021 Creatinine measurement Creatinine mo [place] Start: 04-08-[address] Potassium monit [facility] [place] Start: 03-30-2021 Influenza vaccination S [facility] Work Phone: Start: 01-28-2021 Pneumococcal 65+ yea rs Vaccine (1 of 1 - PPSV23) Pneumococcal 65+ years Vaccine (1 of 1 - PPSV23) [facility] Work Phone: Start: 01-27-2021 Pneumococcal Vaccine : 65+ Years (1 - PCV) Pneumococcal Vaccine: 65+ Years (1 - PCV) [facility] Start: 01-15-2021 Creatinine measurement Creatinine mo [place] Start: 01-15-2021 HbA1c (Bld) [Mass fraction] A1C test (Diabetic or Prediabetic) [facility], [place] Start: 01-15-2021 Potassium monitoring Potassium monit oring [facility] Start: 12-03-2020 End: 12-03-2020 Patient encounter procedure 12/03/2020 Appointment Radiology Jani Suggs MD [address], [address] [place] [address] [phone] [facility] Start: 11-23-2020 COVID-19 Vaccine (3 - Pfizer risk series) COVID-19 Vaccine (3 - Pfizer risk series) [facility] Start: 11-23-2020 [facility] Start: 11-16-2020 End: 11-16-2020 Office Visit 11/16/2020 Office Visit Hematology and Oncology Michelle Leavitt DO [address] [place] [address] [phone] [facility] [place] Start: 08-17-2020 End: 08-17-2020 Office Visit 08/17/2020 Office Visit Hematology and Oncology Michelle Leavitt DO [address] [place] [address] [phone] [facility] [place] Start: 07-06-2020 End: 07-06-2020 Office Visit [facility] [place] Start: 06-29-2020 End: 06-29-2020 Office Visit [facility] [place] Start: 06-23-2020 End: 06-23-2020 Appointment 06/23/2020 [facility] Start: 06-22-2020 End: 06-22-2020 Appointment 06/22/2020 Appointment [facility] Start: 06-21-2020 End: 06-21-2020 Office Visit 06/21/2020 Office Visit Internal Medicine John Springer MD [address] [facility] [address] [place] [address] [phone] [facility] [place] Start: 06-15-2020 End: 06-15-2020 Office Visit 06/15/2020 Office Visit Hematology and Oncology Michelle Leavitt DO [address] [facility] [address] [place] [address] [phone] [facility] [place] Start: 06-11-2020 End: 06-11-2020 Appointment 06/11/2020 Appointment [facility] Start: 06-10-2020 End: 06-10-2020 Appointment 06/10/2020 Appointment [facility] Start: 06-09-2020 End: 06-09-2020 Appointment 06/09/2020 Appointment [facility]fusion [facility] Start: 06-08-2020 End: 06-08-2020 Appointment 06/08/2020 Appointment [facility]fusion [facility] Start: 06-03-2020 End: 06-03-2020 Office Visit [facility] [place] Start: 06-01-2020 End: 06-01-2020 Appointment [facility] Start: 05-26-2020 End: 05-26-2020 Appointment 05/26/2020 Appointment [facility]fusion [facility] Start: 05-25-2020 End: 05-25-2020 Appointment 05/25/2020 Appointment [facility]fusion [facility] Start: 05-21-2020 End: 05-21-2020 Appointment 05/21/2020 Appointment [facility]fusion [facility] Start: 05-20-2020 End: 05-20-2020 Appointment 05/20/2020 Appointment [facility]fusion [facility] Start: 05-19-2020 End: 05-19-2020 Appointment 05/19/2020 Appointment [facility]fusion [facility] Start: 05-18-2020 End: 05-18-2020 Appointment 05/18/2020 Appointment [facility]fusion [facility] Start: 05-14-2020 End: 05-14-2020 Appointment 05/14/2020 Appointment [facility]fusion [facility] Start: 05-13-2020 End: 05-13-2020 Appointment 05/13/2020 Appointment [facility]fusion [facility] Start: 05-12-2020 End: 05-12-2020 Appointment 05/12/2020 Appointment [facility]fusion [facility] Start: 05-11-2020 End: 05-11-2020 Appointment [facility] Start: 04-27-2020 End: 04-27-2020 Office Visit 04/27/2020 Office Visit Hematology and Oncology Michelle Leavtit DO [address] [place] [address] [place] [address] [phone] [facility] [place] Start: 04-23-2020 End: 04-23-2020 Appointment 04/23/[address] [facility] [place] Start: 04-22-2020 End: 04-22-2020 Appointment 04/22/[address] [facility] [place] Start: 04-21-2020 End: 04-21-2020 Appointment 04/21/[address] [facility] [place] Start: 04-20-2020 End: 04-20-2020 Appointment 04/20/[address] [facility] [place] Start: 04-19-2020 End: 04-19-2020 Appointment 04/19/[address] [facility] [place] Start: 04-02-2020 End: 04-02-2020 Appointment 04/02/2020 Appointment Radiology Hilaria Steiner DO [address] [place] [address] [phone] [facility] Start: 03-30-2020 Influenza vaccination Flu vaccine (# 1) [place], [place] Start: 2016 RSV Immunization age d 60 or older (1 - 1-dose 60+ series) RSV Immunization aged 60 or older (1 - 1-dose 60+ series) [facility] Start: 2016 RSV Immunization for Adults (1 - Risk 60-74 years 1-dose series) RSV Immunization for Adults (1 - Risk 60-74 years 1-dose series) [facility] Start: 2016 RSV Vaccine (1 - Ris k 60-74 years 1-dose series) RSV Vaccine (1 - Risk 60-74 years 1-dose series) [facility] Start: 2016 [facility] Start: 01-28-2011 Prostate specific an tigen measurement Prostate Cancer Screening Discussion [facility] Start: 01-28-2006 Shingles Vaccine (1 of 2) Baker gles Vaccine (1 of 2) [place], [place] Start: 01-28-2006 Shingrix Vaccine (1 of 2) Baker grix Vaccine (1 of 2) [facility] Start: 01-27-2006 Zoster Vaccines (1 of 2) Zoste r Vaccines (1 of 2) [facility] Start: 01-28-2001 Screening for malign ant neoplasm of colon [facility] Start: 01-28-1986 Zoledronic acid therapy Alpha- 1 Antitrypsin Deficiency Screening [facility] Start: 01-28-1975 DTaP/Tdap/Td vaccine (1 - Tdap) DTaP/Tdap/Td vaccine (1 - Tdap) [place], [place] Start: 01-28-1975 DTaP/Tdap/Td Vaccine s (1 - Tdap) DTaP/Tdap/Td Vaccines (1 - Tdap) [facility] Start: 01-28-1975 Hepatitis A Vaccines (1 of 2 - Risk 2-dose series) Hepatitis A Vaccines (1 of 2 - Risk 2-dose series) [facility] Start: 01-28-1975 Pneumococcal Vaccine : 50+ (1 of 2 - PCV) Pneumococcal Vaccine: 50+ (1 of 2 - PCV) [facility] Start: 01-28-1975 Pneumococcal Vaccine : 50+ Years (1 of 2 - PCV) Pneumococcal Vaccine: 50+ Years (1 of 2 - PCV) [facility] Start: 01-28-1975 Zoster Vaccines (1 of 2) Zoste r Vaccines (1 of 2) [facility] Start: 01-28-1975 [facility] Start: 01-27-1975 DTaP/Tdap/Td Vaccine s (1 - Tdap) DTaP/Tdap/Td Vaccines (1 - Tdap) [facility] Start: 01-27-1975 Hepatitis A Vaccines (1 of 2 - Risk 2-dose series) Hepatitis A Vaccines (1 of 2 - Risk 2-dose series) 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 Disease Visit Annual PCP Team Chronic Disease Visit [facility] Start: 01-28-1974 Anxiety Screening Anxiety Screening [facility] Start: 01-28-1974 BP Controlled (<130/80) BP Controlle d (<130/80) [facility] Start: 01-28-1974 Depression Screening Depression Scre ening [facility] Start: 01-28-1974 Hepatitis C screening S [facility] Start: 01-28-1974 Spirometry Spirometry [facility] Start: 01-27-1974 Hepatitis C screening Hepatitis C Sc reening [facility] Start: 1972 COVID-19 Vaccine (1 of 2) COVI D-19 Vaccine (1 of 2) [facility] Work Phone: Start: 1972 COVID-19 Vaccine (1) COVID-19 Vaccin e (1) [facility] Work Phone: Start: 01-28-1971 HIV screening HIV screen [place], [place] Start: 1968 COVID-19 Vaccine (1) COVID-19 Vaccin e (1) [facility] Work Phone: Start: 01-28-1968 [facility] Start: 01-28-1962 Pneumococcal 0-64 ye ars Vaccine (1 of 1 - PPSV23) Pneumococcal 0-64 years Vaccine (1 of 1 - PPSV23) [place], [place] Start: 01-28-1962 Pneumococcal 0-64 ye ars Vaccine (1 of 3 - PCV13) Pneumococcal 0-64 years Vaccine (1 of 3 - PCV13) [place] Start: 01-28-1962 Pneumococcal 0-64 ye ars Vaccine (1 of 4 - PCV13) Pneumococcal 0-64 years Vaccine (1 of 4 - PCV13) [facility] Work Phone: Start: 01-28-1962 Pneumococcal Vaccine : 65+ Years (1 - PCV) Pneumococcal Vaccine: 65+ Years (1 - PCV) [facility] Start: 01-28-1962 Pneumococcal Vaccine : 65+ Years (1 of 2 - PCV) Pneumococcal Vaccine: 65+ Years (1 of 2 - PCV) [facility] Start: 01-28-1962 [facility] Start: 01-28-1957 Hepatitis A Vaccines (1 of 2 - Risk 2-dose series) Hepatitis A Vaccines (1 of 2 - Risk 2-dose series) [facility] Start: 1956 COVID-19 Vaccine (#1) COVID-19 Vacci ne (#1) [facility] Start: 1956 Abdominal aortic ane urysm screening [facility] Start: 1956 Hepatitis B Vaccines (1 of 3 - 3-dose series) Hepatitis B Vaccines (1 of 3 - 3-dose series) [facility] Start: 1956 Hepatitis C screening [facility] Start: 1956 Screening for malign ant neoplasm of colon [facility] Start: 1956 [facility] Start: 1956 Lipid panel Lipid Panel [facility] Start: 1956 Screening for malign ant neoplasm of colon [facility] Amphetamine [Mass/vo lume] in Urine [facility] Benzodiazepine measurement, urine [facility] End: 08-11-2023 Blood gases, venous measurement [facility] Work Phone: Cocaine measurement, urine [facility] ECG 12 lead, Daily x3 [facility] Work Phone: ECG 12 lead, Daily x3 [facility] Ferritin [Mass/volum e] in Serum or Plasma [facility] Incentive spirometry Incentive s pirometry Respiratory Care Routine Q1H PRN until discontinued starting 03/04/2020 [facility] [place] Comment on above: Q1H PRN until discon tinued starting 03/04/2020 End: 03-04-2020 Intermittent pulse oximetry Pulse Oximetry Spot Check Respiratory Care Routine One Time for 1 Occurrences starting 03/04/2020 until 03/04[facility]2020 [facility] Comment on above: One Time for 1 Occur rences starting 03/04/2020 until 03/04/2020 Measurement of 3,4-methylenedioxymethamph etamine in urine [facility] Methadone measuremen t, urine [facility] OUTSIDE PROCEDURE SCAN OUTSIDE P ROCEDURE SCAN Procedures Ordered: 10/11/2022 [facility] Comment on above: Ordered: 10/11/2022 Oxygen therapy Initiate Oxygen Therapy Protocol Respiratory Care Routine Daily until discontinued starting 03/04/2020 [facility] [place] Comment on above: Daily until disconti nued starting 03/04/2020 Patient Education [facility] Work Phone: Patient referral [facility] Work Phone: pH of Urine [facility] Phase I & II - meter ed glucose Phase I & II - metered glucose Point of Care Testing Routine As Needed until discontinued starting 03/04/2020 [facility] Comment on above: As Needed until disc ontinued starting 03/04/2020 Phencyclidine [Prese nce] in Urine [facility] Urine barbiturate measurement [facility] Urine cannabinoid measurement [facility] Urine opiate measurement [facility] End: 01-27-2023 US TRAUMA FAST POCUS [employer] [facility] Work Phone: Comment on above: Once for 1 Occurrenc es starting 01/27/2023 until 01/27/2023 [facility] Immunizations Immunization Date Immunization Notes Care Provider Fa cility 02-24-2023 tetanus toxoid, redu eula diphtheria toxoid, and acellular pertussis vaccine, adsorbed Dr. Kelechi Miles Work Phone: [facility] 10-26-2020 Pfizer SARS-CoV-2 Vaccination Michelle A Pooches Pleasure DO Work Phone: [employer] 10-05-2020 Pfizer SARS-CoV-2 Vaccination MichelleFOBO DO Work Phone: [employer] [employer] Payers Date Payer Category Payer Medicare (Managed Care) [employer] [place] [id number] 2024 Self-pay 2021 Medicare [id number] 2021 Medicare HMO [employer] MEDICARE [id number] 2021 Private Health Insurance [id number] 2021 Medicare [id number] 2018 Unknown [employer] M [employer] [address] [id number] 2018-Present [phone] [address] [place] [address] [id number] 1959 Unknown [id number] 1955 Unknown [id number] .1955 Unknown [id number] .204 1955 Unknown [id number] [id number] .204 1955 Unknown [id number] .204 1955 Unknown [id number] [id number] .204 1955 Unknown [id number] [id number] .204 1955 Unknown [id number] [id number] .1955 Unknown [id number] [id number] .204 1955 Unknown [id number] [id number] .204 1955 Unknown [id number] 2.16.840.1.576745.3.579.2 .204 Unknown [id number] 2.16.840.1.058846.3.579.2 .462 Unknown [id number] 2.16.840.1.514014.3.579.2 .462 Unknown [id number] [id number] .462 Unknown [id number] .462 Social History Date Type Detail Facility Start: 03-04-2020 End: 07-12-2024 Tobacco smoking status NHIS Former smoker [facility] End: 09-16-1997 History of tobacco use Current smoker [place], [place] End: 09-16-1997 History of tobacco use Cigarette Smoker [place] Start: 03-04-2020 End: 07-14-2024 Cigarettes smoked current (pack per day) - Reported [place] Start: 03-04-2020 End: 07-12-2024 Tobacco use and exposure Current user [place] History of tobacco use Snuff User [place] Start: 03-04-2020 End: 07-13-2024 Alcohol intake Current drinker of alcohol (finding) [place] Start: 1955 End: 1955 Sex Assigned At Not on file [place] Start: 10-01-2022 End: 01-27-2023 Exposure to SARS-CoV-2 (event) Not sure [place] Start: 09-30-2020 History SDOH Financial 3 [facility] Work Phone: Start: 09-30-2020 History SDOH Food Worry 1 [facility] Work Phone: Start: 09-30-2020 History SDOH Transport Med 2 [facility] Work Phone: Start: 01-05-2023 End: 10-16-2023 Tobacco smoking status NHIS Unknown if ever smoked [facility] Start: 1955 Sex Assigned At Male [facility] Start: 01-27-2023 End: 07-14-2024 Alcohol Use Disorder Identification Test - Consumption [AUDIT-C] [facility] How often to you hav e a drink containing alcohol? 2-3 time sa week [facility] How many standard dr inks containing alcohol do you have on a typical day? 3 or 4 [facility] How often do you hav e 6 or more drinks on 1 occasion? Monthly [facility] How often to you hav e a drink containing alcohol? 4 or more times a week [facility] How many standard dr inks containing alcohol do you have on a typical day? 7 to 9 [facility] How often do you hav e 6 or more drinks on 1 occasion? Weekly [facility] Adolescent depressio n screening assessment [facility] History of tobacco use Passive smoker [facility] Has the [employer], or [employer] threatened to shut off services in your home in past 12Mo No [facility] Do you belong to any clubs or organizations such as uatsdin groups, unions, fraternal or athletic groups, or school groups? Yes [facility] Are you now , , , , never or living with a partner? [facility] How often do you hav e 6 or more drinks on 1 occasion? Daily or almost daily [facility] How hard is it for y ou to pay for the very basics like food, housing, medical care, and heating Somewhat hard [facility] Do you feel stress - tense, restless, nervous, or anxious, or unable to sleep at night because your mind is troubled all the time - these days [OSQ] To some extent [facility] (I/We) worried wheth er (my/our) food would run out before (I/we) got money to buy more. Sometimes true [facility] The food that (I/we) bought just didn't last, and (I/we) didn't have money to get more. Never true [facility] Start: 07-12-2024 Tobacco Comment On Smokeless Tobacco [facility] Start: 07-13-2024 Alcohol Comment Drinks 6 pack of beer and some liquor roughly 3-4 days per week [facility] Start: 02-27-2022 Sex Male (finding) [facility] Start: 07-12-2024 Gender identity Identifies as male gender (finding) [facility] Start: 07-12-2024 Sexual orientation Heterosexual (finding) [facility] Start: 08-11-2024 Alcoholic beverage intake Ex-drinker (finding) [facility] Start: 08-11-2024 Alcohol Comment quit 2 weeks ago. but was getting drunk two times a week [facility] Medical Equipment Procedure Code Equipment Code Equipment Origin al Text Equipment Identifier Dates EGD, with monitored anesthesia care Non-organic haemostatic agent [id number] FDA Start: 12-21-2022 Goals Date Patient Goal Desired Activity /State Comment on above: Formatting of this n ote might be different from the original. Pt would like to obtain muscle strength Barriers: shoulder pain Plan for overcoming my barriers: exercise more Confidence: 03/08 Anticipated Goal Completion Date: 1 yr Functional Status Date Assessment Result Facility 10-17-2023 Functional status Bedrest [facility] Work Phone: 05-30-2023 Functional status Ambulates;Bathroom Priv ilege [facility] Work Phone: 02-27-2023 Functional status Ambulates;Up a d wandy;Bathroom Privilege [facility] Work Phone: 01-08-2023 Functional status Ambulates;Chair [facility] Work Phone: 12-23-2022 Functional status Ambulates [facility] Work Phone: Mental Status Date Assessment Result Facility 10-17-2023 Cognitive function Voice/Name [facility] Work Phone: 10-14-2023 Cognitive function Voice/Name [facility] Work Phone: 05-30-2023 Cognitive function Voice/Name [facility] Work Phone: 04-16-2023 Cognitive function Level Of Cons ciousness Awake;Alert;Appropriate;Follow s Commands [facility] Work Phone: 03-06-2023 Cognitive function Level Of Cons ciousness Awake;Alert;Appropriate;Follow s Commands [facility] Work Phone: 02-26-2023 Cognitive function Voice/Name [facility] Work Phone: 01-08-2023 Cognitive function Anxious;Restless [facility] Work Phone: 12-23-2022 Cognitive function Voice/Name [facility] Work Phone: Clinical Notes 08-21-2022 to 05-21-2025 Telephone Encounter - Laurel Boo - 05/21/2025 11:41 AM EDTTelephone Encounter - Laurel Boo - 05/21/2025 11:[facility] - Becky Brooks SW Student - 10/08/2024 6:29 PM EDT Note Date & Type Note Facility 05-21-2025 Telephone encounter Note Name of caller: Erika BLUNT Contact phone number: [phone] Relationship to Patient: RN at [facility] Provider: TONI Chaney Practice: [facility] Chief Complaint/Reason for Call: Pt is currently being discharged from memory care at [facility] but pt is on [facility] Medications and is needing to be seen sooner that [facility] appt 06/30/2025 if possible or to have a consult on medication review Best time of day caller can be reached: any Patient advised that office/PCP has 24-48 business hours to return their call: No T [facility] 05-21-2025 Miscellaneous Notes Name of caller: Erika BLUNT Contact phone number: [phone] Relationship to Patient: RN at [facility] Provider: TONI Chaney Practice: [facility] Chief Complaint/Reason for Call: Pt is currently being discharged from memory care at [facility] but pt is on [facility] Medications and is needing to be seen sooner that [facility] appt 06/30/2025 if possible or to have a consult on medication review Best time of day caller can be reached: any Patient advised that office/PCP has 24-48 business hours to return their call: No documented in this encounter [facility] 10-30-2024 Note HNO ID: [id number] Author: RUBIA HEARN LISW Service: Care Management Author Type: Naphthalene Still Operator Type: Social Work Filed: 10/30/2024 11:28 Note Text: BEHAVIORAL HEALTH SOCIAL WORK DISCHARGE NOTE SERVICE DATE: 10/30/2024 SERVICE TIME: 11:00a.m. Discharge Information Row Name Admission (Current) from 10/11/[address] Psychiatry Follow-Up Appointment Psychiatrist Name [facility] Psychological Services Additional Instructions The pt will be followed at the facility. Card Player Name Nahun Waldrop - Son Guardian/Surrogate Decision Maker Name Huang Tian [facility] Phone Guardian of person - [phone], Discharge Disposition Discharge Disposition Assisted Living Facility Assisted Living Referral Information Name [facility] Address [address], [place] [address] Phone # [phone] Additional Discharge Information Additional Discharge Resources [facility] [phone] Patient/Sheet Turner Agreeable With Discharge Plan: Yes FREEDOM OF CHOICE EXPLAINED? [facility]-owned/affiliated facilities and agencies have been identified Patient/Sheet Turner Given/Explained Medicare Discharge Notice (IM letter): Yes (Date and Time): 10/30/2024 TRANSPORTATION ARRANGEMENTS: Via ambulance PRESCRIPTIONS FILLED PRIOR TO DISCHARGE: No, patient discharged to long-term ADDITIONAL NOTES: [facility] SIGNATURE: Jj Jacques LPC-S,CAR PATIENT NAME: Messi Max November DATE: October 30, 2024 TIME: 11:24 AM [facility] 10-30-2024 Note HNO ID: [id number] Author: RUBIA HEARN LISW Service: Care Management Author Type: Naphthalene Still Operator Type: Plan of Care Filed: 10/30/2024 11:23 Note Text: BEHAVIORAL HEALTH INPATIENT INTERDISCIPLINARY TREATMENT PLAN UPDATE DATE INITIATED: 10/30/2024 11:00 AM Patient's Goal of Treatment: call my brother tomorrow and go home soon Active Hospital Problems Nicotine use disorder, F17.2 *Acute psychosis (HCC) Criteria for Discharge: Elimination/reduction of presenting behavior: Goals achieved Estimated length of stay: Discharge today Interdisciplinary Treatment Plan Date Initiated: 10/11/24 Time Initiated: 351 Patient Participation in Initial Treatment Plan: No Patient unable to participate due to : Mental status Other Participants: N/A Strengths/Assets: Stable living situation, Social support Limitations: Physically dependent on others, Not adherent with treatment, Difficulty with comprehension/understanding information, Cognitive impairment Precautions indicated: Escape, Routine Precautions Individualized problems: Cognitive impairment Problem - Discharge Needs Date Initiated: 10/11/24 Time Initiated: 353 Discharge Needs: Patient/Family will participate in the development of the Discharge Aftercare Plan, Resolve acute symptoms through medication management, Assess for appropriate level of care, Link/relink to community supports, Encourage patient to utilize appropriate coping skills, Encourage patient to maintain sobriety or explore ambivalence re: sobriety, Patient has identified at least one support person to contact in the event of relapse Interventions - Nursing: Obtain baseline level of functioning on admission, Administer medications as indicated and monitor patient for effect daily, Provide education to the patient and/or family about the disease process and management as appropriate daily and as needed, Provide non-judgmental supportive, empathetic and comprehensive trauma informed care daily and as needed, Use therapeutic communication skills to develop patient trust and a nurse-patient relationship daily and as needed, Assess for signs of escalating emotions and help identify ways to appropriately express feelings as needed, Assist with developing positive coping behaviors daily and as needed, Assess for escalating behavior and utilize de-escalation skills as needed, Encourage independence with daily functioning daily and as needed, Encourage patient participation in milieu activities daily and as needed, Provide a quiet, restful environment to promote sleep/rest daily and as needed, Monitor nutritional intake daily, Assist with activities of daily living, utilizing any necessary assistive devices daily and as needed Interventions - Social Work: Collateral information as needed, Develop aftercare plan Interventions - Therapy: Help patient to identify people, places and things that support recovery and stabilization of mental health, Promote ongoing practice of effective coping strategies daily and as needed Post discharge referrals: Psychiatry Identify next level of care: Assisted Living Facility ([facility]) Problem - Cognitive Impairment As evidenced by: Agitation/Aggression, Anxiety, Confusion, Decline in activities of daily living, Disorganized thinking, Disorientation, Poor impulse control, Poor short-term recall Disorientation: place, time Date Intiated: 10/11/24 Time Initiated: 355 Short Term Goals: Patient will demonstrate decrease in anxiety, Patient will demonstrate decrease in agitation/aggression, Patient will comply with medication and treatment, Patient will demonstrate sleeping this number of hours per night, Patient will participate in toilet procedures every 2 hours, Patient will maintain adequate intake and output, Patient will not harm self, Patient will not harm others or destroy property, Patient will participate in activities of daily living as able Goal hours of sleep: 7 Target Date Short Term Goals: 10/18/24 Highway Painter Helper Goals: Patient will have improved insight into illness, Patient will have achieved optimal level of functioning, Patient will verbalize benefits of compliance with medication and treatment after discharge, Patient will participate in cognitive, physical and social activities, Patient will display nonviolent behavior towards others, with aid of medication and supportive therapy Target Date Highway Painter Helper Goals: 10/21/24 Interventions - Nursing: Offer frequent toileting as needed, Reorient the patient as needed, Obtain info regarding pre-existing stressors and calming methods/influences on admission, Obtain baseline level of functioning on admission, Administer medications as indicated and monitor patient for effect daily, Provide education to the patient and/or family about the disease process and management as appropriate daily and as needed, Use therapeutic communication skills to develop patient t (more content not included)... [facility] 10-30-2024 Note HNO ID: [id number] Author: MARY WEBB MD Service: Behavioral Health Author Type: Physician Type: Progress Notes Filed: 10/31/2024 10:34 Note Text: [facility] - Psych Progress Note MESSI WALDROP : 1955 AGE: 69 SEX: M CSN: [id number] HOSP SVC: PSY LOC[place] [facility] [place] [facility] [place] ATTENDING PHYSICIAN: ABU NASH CESAR DATE OF SERVICE: 10/30/2024 TIME OF SERVICE: 10:00 AM The patient is a 69-year-old male with extensive history of alcohol use disorder. He also has a prior history of anxiety and depression, was admitted in a very confused disoriented state after he was admitted to [facility]. The patient apparently made a threat to his life, was drinking continuously. He apparently was in heart failure, also had atrial fibrillation. He was transferred here after being medically stabilized. The patient appears to be settling down. In the beginning, he was highly disruptive, very inappropriate in memory, intellect as well as his orientation along with behavior were highly impaired. He is calm, redirectable, focused on discharge. Short-term memory is totally nonexistent. He is as best oriented to 2, sleeping better, compliant with medications. Behavior is in better control. No current facility-administered medications on file prior to encounter. Current Outpatient Medications on File Prior to Encounter Medication Sig apixaban (ELIQUIS) 5 mg tab(s) Take 1 tablet by mouth two times a day. cholecalciferol (VITAMIN D3) 1,000 unit tab tablet Take 2 tablets by mouth once daily. melatonin 3 mg tablet Take 2 tablets by mouth daily at bedtime. metoprolol succinate ER (TOPROL XL) 50 mg 24 hr tablet Take 1 tablet by mouth once daily. nicotine polacrilex (NICORETTE) 2 mg gum Take 1 Each by mouth every 2 hours as needed. thiamine (VITAMIN B1) 100 mg tablet 1 tablet by ORAL/FEEDING TUBE route three times a day. zinc sulfate 220 mg (50 mg zinc) capsule Take 1 capsule by mouth once daily for 4 doses. The patient's discharge planning has been finalized. He will be transferred to an extended care facility as soon as all the necessary transportation and other arrangements are completed, he will be transferred there. We will continue with current combination medication and we will follow up on an outpatient basis. Greg Webb M.D. Psychiatry :[id number] /[id number] [facility] 10-29-2024 Note HNO ID: [id number] Author: RUBIA HEARN LISW Service: Care Management Author Type: Naphthalene Still Operator Type: Social Work Filed: 10/29/2024 16:26 Note Text: BEHAVIORAL HEALTH SOCIAL WORK PROGRESS NOTE SERVICE DATE: 10/29/2024 SERVICE TIME: 11:00a.m. Spoke with the guardian several times during the day. She had reported that the facility is unable to accept without payment. Initially she suggested placement at [facility] in [place] or [facility] in [place] because they would accept knowing her without payment. Discussed that the $7000. For the month or $3500 for respite for 2 weeks vs a long-term costing $10,000. Contacted the son and was finally able to speak with him regarding the cost. The guardian had spoken with him and he will help with the finances. Spoke with the facility who reported the above. They will accept the pt for tomorrow. If there is any problems she will let the hospital know. Informed the guardian of the move for . Left a message for the son. An ambulance was ordered for 1:00p.m. Trip Number [id number] SIGNATURE: Jj Jacques,PAPER COATING MACHINE OPERATOR-S,GASOLINE PLANT OPERATOR PATIENT NAME: Messi Max November DATE: October 29, 2024 TIME: 4:26 PM [facility] 10-29-2024 Note HNO ID: [id number] Author: JANINE DUNN APRN.CNP Service: Behavioral Health Author Type: Nurse Practitioner Type: Progress Notes Filed: 10/29/2024 13:22 Note Text: BEHAVIORAL HEALTH PROGRESS NOTE Patient Name: Messi Max November SERVICE DATE: 10/29/2024 SERVICE TIME: 1:16 PM SUBJECTIVE: Patient seen, chart reviewed, spoke with staff. This is a 69 year old male with history of AUD. Patient was transferred from medical unit where he was initially admitted with CHF and A-fib. Patient was acting erratically and was expressing SI that he was going to drink himself to . Patient remains on a combination of Depakote, Haldol, Zyprexa, and Zoloft. His mood and affect have been appropriate and behaviors have been in control. There have been no aggressive or disruptive episodes on unit. Patient is compliant with medications and care and has been more visible on unit with peers. Remains discharge focused, though lacks insight into condition and feels he can return home as before. Son is working on finding placement for patient upon discharge. Condition: stable Medical Problems: PAST MEDICAL HISTORY Diagnosis Date Cancer (HCC) Surgical Problems: No past surgical history on file. Adverse effects to medications: No PRN'S given: No Sleep: Good Appetite: Good PHYSICAL EXAM: BP 123/73 Pulse 78 Temp 36.5 ?C (97.7 ?F) (Oral) Resp 16 Ht 175.3 cm (5' 9) Wt 75.2 kg (165 lb 11.2 oz) SpO2 98% BMI 24.47 kg/m? Mental Status: Orientation: Person and Place Appearance/Personal Hygiene: Appropriately groomed Eye Contact: Direct Psychomotor Activity: wnl Speech: Clear, relevant Mood/Affect: Euthymic Thought Process: Coherent Thought Content: Coherent Perception: Patient Denies, None Noted Suicidal Ideation/Intentions: No Homicidal Ideation/Intentions: No Insight: Impaired Judgement: Impaired Intelligence: Average Memory/Cognition: Moderately Impaired Tremors: No Gait: Normal MEDICATIONS: Current Facility-Administered Medications Medication Dose Route Frequency hydrOXYzine HCl 25 mg tab(s) (ATARAX) 25 mg ORAL q 4 H PRN benztropine 0.5 mg tab(s) (COGENTIN) 0.5 mg ORAL q 4 H PRN haloperidol 0.5 mg tab(s) (HALDOL) 0.5 mg ORAL q 4 H PRN Or haloperidol lactate 0.5 mg short-acting injection (HALDOL) 0.5 mg INTRAMUSCULAR q 4 H PRN magnesium hydroxide 400 mg/5 mL 30 mL (MOM) 30 mL ORAL DAILY PRN diphenhydrAMINE 50 mg injection (BENADRYL) 50 mg INTRAMUSCULAR q 30 MIN PRN nicotine polacrilex 2 mg gum (NICORETTE) 2 mg ORAL q 2 H PRN apixaban 5 mg tab(s) (ELIQUIS) 5 mg ORAL BID metoprolol succinate ER 50 mg tab(s) (TOPROL XL) 50 mg ORAL DAILY sertraline 50 mg tab(s) (ZOLOFT) 50 mg ORAL DAILY naltrexone 50 mg tab(s) 50 mg ORAL DAILY cholecalciferol 2,000 Units tab(s) (VITAMIN D3) 2,000 Units ORAL DAILY melatonin 6 mg tab(s) 6 mg ORAL AT BEDTIME thiamine 100 mg tab(s) (VITAMIN B1) 100 mg ORAL/FEEDING TUBE TID zinc sulfate 220 mg capsule(s) 220 mg ORAL DAILY OLANZapine 5 mg tab(s) (ZYPREXA) 5 mg ORAL AT BEDTIME OLANZapine 2.5 mg tab(s) (ZYPREXA) 2.5 mg ORAL DAILY gabapentin 100 mg cap(s) (NEURONTIN) 100 mg ORAL q 6 H PRN nicotine 21 mg/24 hr 1 Patch (NICODERM) 1 Patch TRANSDERMAL DAILY And nicotine -- REMOVE patch OTHER DAILY And nicotine - verify patch OTHER q 8 H benzocaine-menthol 1 Lozenge (CEPACOL) 1 Lozenge MUCOUS MEMBRANE (TOPICAL MOUTH AND THROAT) q 2 H PRN acetaminophen 650 mg tab(s) (TYLENOL) 650 mg ORAL q 6 H PRN divalproex ER 1,000 mg tab(s) (DEPAKOTE ER) 1,000 mg ORAL DAILY traZODone 25 mg tab(s) (DESYREL) 25 mg ORAL AT BEDTIME PRN DATA: Diagnostic tests reviewed for today's visit: Most recent labs ASSESSMENT AND PLAN: Principal Problem: 1. Major neurocognitive disorder due to alcohol use disorder. 2. Wernicke Korsakoff's syndrome. 3. Alcohol use disorder. Assessment AND Plan: Stable with current treatment. Will continue with same and monitor. Risk Assessment Suicide: low Homicide: low Deliberate Self-Harm: low Aggression: low IInterventions Biological: continue same medications. Check: Vital signs per protocol Precautions: Standard Psychological: group therapy and millieu therapy Social: Look into Extended care facility placement DISCHARGE PLANNING: Discharge once placement determined Length Of Session: I spent a total of 35 to 40 minutes on date of service which included preparing to see the patient, [id number] patient care, performing medically appropriate exam, clinical documentation, and discussion with the multidisciplinary team for care coordination. Plan of care reviewed with Dr Webb. SIGNATURE: Janine Dunn APRN.CNP DATE: October 29, 2024 TIME: 1:16 PM [facility] 10-29-2024 Note HNO ID: [id number] Author: MARY JO BYRD MD Service: General Internal Medicine Author Type: Physician Type: Progress Notes Filed: 10/29/2024 12:04 Note Text: INTERNAL MEDICINE PROGRESS NOTE Name: Messi Waldrop SERVICE DATE: October 29, 2024 ASSESSMENT AND PLAN Principal Problem: Acute psychosis (HCC) (POA: Yes) Assessment AND Plan:following psych poc CHF Vitamin D def Anemia COPD CKD HTN AFIB- on eliquis Resolved Problems: * No resolved hospital problems. * SUBJECTIVE INTERVAL HPI: 69 year old male presented with past medical history of Severe Alcohol Use Disorder, Alcohol Withdrawal, Wernicke's Encephalopathy, Chronic Systolic CHF, Paroxysmal Atrial Fibrillation on eliquis, HTN, COPD, CKD Stage. No chest pain, SOB or palpitations. No N/V/D. No fever, chills or sore throat. No dysuria. No bleeding. OBJECTIVE PHYSICAL EXAM: Blood pressure 123/73, pulse 78, temperature 36.5 ?C (97.7 ?F), temperature source Oral, resp. rate 16, height 175.3 cm (5' 9), weight 75.2 kg (165 lb 11.2 oz), SpO2 98%., Body mass index is 24.47 kg/m?. LUNGS: Lungs clear to auscultation. Good diaphragmatic excursion. CARDIAC: normal S1 and S2; no rubs, murmurs, or gallops ABDOMEN: Abdomen soft, non-tender. BS normal. No masses or organomegaly. MEDICATION: Current Facility-Administered Medications Medication Dose Route Frequency hydrOXYzine HCl 25 mg tab(s) (ATARAX) 25 mg ORAL q 4 H PRN benztropine 0.5 mg tab(s) (COGENTIN) 0.5 mg ORAL q 4 H PRN haloperidol 0.5 mg tab(s) (HALDOL) 0.5 mg ORAL q 4 H PRN Or haloperidol lactate 0.5 mg short-acting injection (HALDOL) 0.5 mg INTRAMUSCULAR q 4 H PRN magnesium hydroxide 400 mg/5 mL 30 mL (MOM) 30 mL ORAL DAILY PRN diphenhydrAMINE 50 mg injection (BENADRYL) 50 mg INTRAMUSCULAR q 30 MIN PRN nicotine polacrilex 2 mg gum (NICORETTE) 2 mg ORAL q 2 H PRN apixaban 5 mg tab(s) (ELIQUIS) 5 mg ORAL BID metoprolol succinate ER 50 mg tab(s) (TOPROL XL) 50 mg ORAL DAILY sertraline 50 mg tab(s) (ZOLOFT) 50 mg ORAL DAILY naltrexone 50 mg tab(s) 50 mg ORAL DAILY cholecalciferol 2,000 Units tab(s) (VITAMIN D3) 2,000 Units ORAL DAILY melatonin 6 mg tab(s) 6 mg ORAL AT BEDTIME thiamine 100 mg tab(s) (VITAMIN B1) 100 mg ORAL/FEEDING TUBE TID zinc sulfate 220 mg capsule(s) 220 mg ORAL DAILY OLANZapine 5 mg tab(s) (ZYPREXA) 5 mg ORAL AT BEDTIME OLANZapine 2.5 mg tab(s) (ZYPREXA) 2.5 mg ORAL DAILY gabapentin 100 mg cap(s) (NEURONTIN) 100 mg ORAL q 6 H PRN nicotine 21 mg/24 hr 1 Patch (NICODERM) 1 Patch TRANSDERMAL DAILY And nicotine -- REMOVE patch OTHER DAILY And nicotine - verify patch OTHER q 8 H benzocaine-menthol 1 Lozenge (CEPACOL) 1 Lozenge MUCOUS MEMBRANE (TOPICAL MOUTH AND THROAT) q 2 H PRN acetaminophen 650 mg tab(s) (TYLENOL) 650 mg ORAL q 6 H PRN divalproex ER 1,000 mg tab(s) (DEPAKOTE ER) 1,000 mg ORAL DAILY traZODone 25 mg tab(s) (DESYREL) 25 mg ORAL AT BEDTIME PRN URINE OUTPUT: Intake/Output Summary (Last 24 hours) at 10/29/2024 1204 Last data filed at 10/28/2024 1740 Gross per 24 hour Intake 480 ml Output -- Net 480 ml LABORATORY: CBC, Coags, BMP, Mg, Phos TSH Date Value Ref Range Status 10/11/2024 3.880 0.270 - 4.200 mIU/L Final Plan of care discussed with patient and staff. I spent a total of 40 minutes on the date of the service which included preparing to see the patient, [id number] patient care, completing clinical documentation, obtaining and/or reviewing separately obtained history, performing a medically appropriate examination, counseling and educating the patient/family/caregiver, ordering medications, tests, or procedures, communicating with other HCPs (not separately reported), independently interpreting results (not separately reported), communicating results to the patient/family/caregiver, and care coordination (not separately reported). SIGNATURE: Mary Jo Byrd MD DATE: October 29, 2024 [facility] 10-28-2024 Note HNO ID: [id number] Author: RUBIA HEARN LISW Service: Care Management Author Type: Naphthalene Still Operator Type: Social Work Filed: 10/28/2024 15:22 Note Text: BEHAVIORAL HEALTH SOCIAL WORK PROGRESS NOTE SERVICE DATE: 10/28/2024 SERVICE TIME: 12:00p.m. The pt called his brother and informed him that he is being discharged. The brother called to inquire if he really needed to pick him up. Reached out to the appointed guardian, Huang Tian. Informed her of the complications with the son completing the forms. She stated that the pt could not be discharged home and suggested placement at [facility] or [facility] in [facility]. According to the guardian they may accept with a medicaid application being made after discharge. Explained that most facilities do not want pending pts. Reached out to Peggy at [facility] to inquire about the son's progress. She reported what he had reported yesterday that he has been going through 2 years of mail finding bill that have not been paid. Inquired if it would be possible for [facility] to accept the pt knowing that the pt has assets. She was willing to reach out to the guardian todiscuss. Later received a call from Huang reporting that she had spoken with Peggy and they are going to try to move forward if the Buttonholer receives permission. She was able to share with them what the pts income and some assets entail. Will continue supportive services. SIGNATURE: Rubia Hearn,Jj,PAPER COATING MACHINE OPERATOR-S,GASOLINE PLANT OPERATOR PATIENT NAME: Messi Max November DATE: October 28, 2024 TIME: 3:10 PM [facility] 10-28-2024 Note HNO ID: [id number] Author: MARY WEBB MD Service: Behavioral Health Author Type: Physician Type: Progress Notes Filed: 10/29/2024 11:34 Note Text: [facility] - Psych Progress Note MESSI WALDROP : 1955 AGE: 69 SEX: M CSN: [id number] HOSP SVC: PSY LOC[place] [facility] [place] [facility] [place] ATTENDING PHYSICIAN: GREG WEBB DATE OF SERVICE: 10/28/2024 TIME OF SERVICE: 10:30 AM The patient is a 69-year-old male with extensive history of alcohol use disorder. The patient also has multitude of medical issues including atrial fibrillation and heart failure. He was admitted with the chief complaint of entertaining suicidal ideations and stating that he wants to drink himself to . The patient has history of severe alcohol use disorder, as a result he has dementia as well as Korsakoff's psychosis. The patient appears to be settling down. Initially, he was rather labile, intrusive, which he still remains to some extent, but his inappropriate sexual behavior seems to show improvement. He is oriented to 1 or 2 and has been making inappropriate demands on occasion. Needs significant amount of redirection, support. Of note is the fact that he has absolutely no insight into his condition and needs significant redirection. The patient's progress, discharge planning, and followup care were reviewed with the members of the treatment team. The patient's chart including lab work, vital signs, and other details were reviewed. No current facility-administered medications on file prior to encounter. Current Outpatient Medications on File Prior to Encounter Medication Sig apixaban (ELIQUIS) 5 mg tab(s) Take 1 tablet by mouth two times a day. cholecalciferol (VITAMIN D3) 1,000 unit tab tablet Take 2 tablets by mouth once daily. diphenhydrAMINE (BENADRYL) 50 mg/mL injection Inject 50 mg intramuscularly once daily as needed (Third line Agitation). divalproex DR (DEPAKOTE) 250 mg EC tablet Take 1 tablet by mouth daily at bedtime. melatonin 3 mg tablet Take 2 tablets by mouth daily at bedtime. metoprolol succinate ER (TOPROL XL) 50 mg 24 hr tablet Take 1 tablet by mouth once daily. naltrexone 50 mg tablet Take 1 tablet by mouth once daily. nicotine polacrilex (NICORETTE) 2 mg gum Take 1 Each by mouth every 2 hours as needed. sertraline (ZOLOFT) 50 mg tablet Take 1 tablet by mouth once daily. thiamine (VITAMIN B1) 100 mg tablet 1 tablet by ORAL/FEEDING TUBE route three times a day. zinc sulfate 220 mg (50 mg zinc) capsule Take 1 capsule by mouth once daily for [address] (DEPAKOTE) 125 mg EC tablet Take 1 tablet by mouth two times a day. I would continue with current combination medications including his Zyprexa along with Depakote and Zoloft. Meanwhile, we are pursuing discharge planning and as soon as all the necessary arrangements are completed by his son, who is also POA, he will be transferred to a more secure environment. Greg Webb M.D. Psychiatry :[id number] /[id number] [facility] 10-27-2024 Note HNO ID: [id number] Author: RUBIA HEARN LISW Service: Care Management Author Type: Naphthalene Still Operator Type: Social Work Filed: 10/27/2024 17:12 Note Text: BEHAVIORAL HEALTH SOCIAL WORK PROGRESS NOTE SERVICE DATE: 10/27/2024 SERVICE TIME Reached out to Peggy, from [facility] ([phone]), to inquire if she had heard from the son. She had not heard, stating that he is not picking up the calls. Contacted the pts son, Nahun. He reported that he has been trying to go through the pts mail and bills to determine what his accounts and how much. He reported that it appeared that the pt has not paid bills in months. Discussed the need to figure out what is going to happen with the pt due to his extended stay. Encouraged him to speak with his attorney at law again for guidance. The pt has been up this afternoon repeatedly asking if the doctor is going to discharge him today. He does continue to be intrusive and needy. Will continue supportive services SIGNATURE: Jj Jacques,PAPER COATING MACHINE OPERATOR-S,GASOLINE PLANT OPERATOR PATIENT NAME: Messi Max November DATE: October 27, 2024 TIME: 2:59 PM [facility] 10-27-2024 Note HNO ID: [id number] Author: MARY JO BYRD MD Service: General Internal Medicine Author Type: Physician Type: Progress Notes Filed: 10/28/2024 09:40 Note Text: INTERNAL MEDICINE PROGRESS NOTE Name: Messi Max November SERVICE DATE: October 27, 2024 ASSESSMENT AND PLAN Principal Problem: Acute psychosis (HCC) (POA: Yes) Assessment AND Plan:following psych poc CHF Vitamin D def Anemia COPD CKD HTN AFIB- on eliquis Resolved Problems: * No resolved hospital problems. * SUBJECTIVE INTERVAL HPI: 69 year old male presented with past medical history of Severe Alcohol Use Disorder, Alcohol Withdrawal, Wernicke's Encephalopathy, Chronic Systolic CHF, Paroxysmal Atrial Fibrillation on eliquis, HTN, COPD, CKD Stage. No chest pain, SOB or palpitations. No N/V/D. No fever, chills or sore throat. No dysuria. No bleeding. OBJECTIVE PHYSICAL EXAM: Blood pressure 112/70, pulse 79, temperature 36.8 ?C (98.2 ?F), resp. rate 16, height 175.3 cm (5' 9), weight 75.2 kg (165 lb 11.2 oz), SpO2 98%., Body mass index is 24.47 kg/m?. LUNGS: Lungs clear to auscultation. Good diaphragmatic excursion. CARDIAC: normal S1 and S2; no rubs, murmurs, or gallops ABDOMEN: Abdomen soft, non-tender. BS normal. No masses or organomegaly. MEDICATION: Current Facility-Administered Medications Medication Dose Route Frequency hydrOXYzine HCl 25 mg tab(s) (ATARAX) 25 mg ORAL q 4 H PRN benztropine 0.5 mg tab(s) (COGENTIN) 0.5 mg ORAL q 4 H PRN haloperidol 0.5 mg tab(s) (HALDOL) 0.5 mg ORAL q 4 H PRN Or haloperidol lactate 0.5 mg short-acting injection (HALDOL) 0.5 mg INTRAMUSCULAR q 4 H PRN magnesium hydroxide 400 mg/5 mL 30 mL (MOM) 30 mL ORAL DAILY PRN diphenhydrAMINE 50 mg injection (BENADRYL) 50 mg INTRAMUSCULAR q 30 MIN PRN nicotine polacrilex 2 mg gum (NICORETTE) 2 mg ORAL q 2 H PRN apixaban 5 mg tab(s) (ELIQUIS) 5 mg ORAL BID metoprolol succinate ER 50 mg tab(s) (TOPROL XL) 50 mg ORAL DAILY sertraline 50 mg tab(s) (ZOLOFT) 50 mg ORAL DAILY naltrexone 50 mg tab(s) 50 mg ORAL DAILY cholecalciferol 2,000 Units tab(s) (VITAMIN D3) 2,000 Units ORAL DAILY melatonin 6 mg tab(s) 6 mg ORAL AT BEDTIME thiamine 100 mg tab(s) (VITAMIN B1) 100 mg ORAL/FEEDING TUBE TID zinc sulfate 220 mg capsule(s) 220 mg ORAL DAILY OLANZapine 5 mg tab(s) (ZYPREXA) 5 mg ORAL AT BEDTIME OLANZapine 2.5 mg tab(s) (ZYPREXA) 2.5 mg ORAL DAILY gabapentin 100 mg cap(s) (NEURONTIN) 100 mg ORAL q 6 H PRN nicotine 21 mg/24 hr 1 Patch (NICODERM) 1 Patch TRANSDERMAL DAILY And nicotine -- REMOVE patch OTHER DAILY And nicotine - verify patch OTHER q 8 H benzocaine-menthol 1 Lozenge (CEPACOL) 1 Lozenge MUCOUS MEMBRANE (TOPICAL MOUTH AND THROAT) q 2 H PRN acetaminophen 650 mg tab(s) (TYLENOL) 650 mg ORAL q 6 H PRN divalproex ER 1,000 mg tab(s) (DEPAKOTE ER) 1,000 mg ORAL DAILY traZODone 25 mg tab(s) (DESYREL) 25 mg ORAL AT BEDTIME PRN URINE OUTPUT: Intake/Output Summary (Last 24 hours) at 10/27/2024 1202 Last data filed at 10/27/2024 0848 Gross per 24 hour Intake 480 ml Output -- Net 480 ml LABORATORY: CBC, Coags, BMP, Mg, Phos TSH Date Value Ref Range Status 10/11/2024 3.880 0.270 - 4.200 mIU/L Final Plan of care discussed with patient and staff. I spent a total of 40 minutes on the date of the service which included preparing to see the patient, [id number] patient care, completing clinical documentation, obtaining and/or reviewing separately obtained history, performing a medically appropriate examination, counseling and educating the patient/family/caregiver, ordering medications, tests, or procedures, communicating with other HCPs (not separately reported), independently interpreting results (not separately reported), communicating results to the patient/family/caregiver, and care coordination (not separately reported). SIGNATURE: Mary Jo Byrd MD DATE: October 27, 2024 [facility] 10-27-2024 Note HNO ID: [id number] Author: JANINE DUNN APRN.FOUNDER PRESIDENT AND CEO Service: Behavioral Health Author Type: Nurse Practitioner Type: Progress Notes Filed: 10/27/2024 11:25 Note Text: BEHAVIORAL HEALTH PROGRESS NOTE Patient Name: Messi Waldrop SERVICE DATE: 10/27/2024 SERVICE TIME: 11:14 AM SUBJECTIVE: Patient seen, chart reviewed, spoke with staff. This is a 69 year old male with history of alcohol use disorder with resultant Korsakoff syndrome/neurocognitive disorder. Pt was admitted upon transfer fro [facility] medical floor where he was initially admitted from [facility]. Once medically stabilized he was transferred to [facility] due to agitation with disorganized behaviors. The patient remains on depakote, haldol, zyprexa,and zoloft. He has been stable. No inappropriate sexual behaviors or disruptions on unit. He has been compliant with care and medications. Interactions remains superficial, discharge focused, and overall non-spontaneous but speech is clear and relevant. Condition: stable Medical Problems: PAST MEDICAL HISTORY Diagnosis Date Cancer (HCC) Surgical Problems: No past surgical history on file. Adverse effects to medications: No PRN'S given: trazodone Sleep: good Appetite: good PHYSICAL EXAM: BP 112/70 Pulse 79 Temp 36.8 ?C (98.2 ?F) Resp 16 Ht 175.3 cm (5' 9) Wt 75.2 kg (165 lb 11.2 oz) SpO2 98% BMI 24.47 kg/m? Mental Status: Orientation: Person and Place Appearance/Personal Hygiene: Disheveled Eye Contact: Direct Psychomotor Activity: wnl Speech: clear Mood/Affect: Appropriate Thought Process: Coherent Thought Content: Coherent Perception: Patient Denies, None Noted Suicidal Ideation/Intentions: No Homicidal Ideation/Intentions: No Insight: Impaired Judgement: impaired Intelligence: Average Memory/Cognition: Moderately Impaired Tremors: No Gait: Normal MEDICATIONS: Current Facility-Administered Medications Medication Dose Route Frequency hydrOXYzine HCl 25 mg tab(s) (ATARAX) 25 mg ORAL q 4 H PRN benztropine 0.5 mg tab(s) (COGENTIN) 0.5 mg ORAL q 4 H PRN haloperidol 0.5 mg tab(s) (HALDOL) 0.5 mg ORAL q 4 H PRN Or haloperidol lactate 0.5 mg short-acting injection (HALDOL) 0.5 mg INTRAMUSCULAR q 4 H PRN magnesium hydroxide 400 mg/5 mL 30 mL (MOM) 30 mL ORAL DAILY PRN diphenhydrAMINE 50 mg injection (BENADRYL) 50 mg INTRAMUSCULAR q 30 MIN PRN nicotine polacrilex 2 mg gum (NICORETTE) 2 mg ORAL q 2 H PRN apixaban 5 mg tab(s) (ELIQUIS) 5 mg ORAL BID metoprolol succinate ER 50 mg tab(s) (TOPROL XL) 50 mg ORAL DAILY sertraline 50 mg tab(s) (ZOLOFT) 50 mg ORAL DAILY naltrexone 50 mg tab(s) 50 mg ORAL DAILY cholecalciferol 2,000 Units tab(s) (VITAMIN D3) 2,000 Units ORAL DAILY melatonin 6 mg tab(s) 6 mg ORAL AT BEDTIME thiamine 100 mg tab(s) (VITAMIN B1) 100 mg ORAL/FEEDING TUBE TID zinc sulfate 220 mg capsule(s) 220 mg ORAL DAILY OLANZapine 5 mg tab(s) (ZYPREXA) 5 mg ORAL AT BEDTIME OLANZapine 2.5 mg tab(s) (ZYPREXA) 2.5 mg ORAL DAILY gabapentin 100 mg cap(s) (NEURONTIN) 100 mg ORAL q 6 H PRN nicotine 21 mg/24 hr 1 Patch (NICODERM) 1 Patch TRANSDERMAL DAILY And nicotine -- REMOVE patch OTHER DAILY And nicotine - verify patch OTHER q 8 H benzocaine-menthol 1 Lozenge (CEPACOL) 1 Lozenge MUCOUS MEMBRANE (TOPICAL MOUTH AND THROAT) q 2 H PRN acetaminophen 650 mg tab(s) (TYLENOL) 650 mg ORAL q 6 H PRN divalproex ER 1,000 mg tab(s) (DEPAKOTE ER) 1,000 mg ORAL DAILY traZODone 25 mg tab(s) (DESYREL) 25 mg ORAL AT BEDTIME PRN DATA: Diagnostic tests reviewed for today's visit: Most recent labs ASSESSMENT AND PLAN: Principal Problem: 1. Major neurocognitive disorder due to alcohol use disorder. 2. Wernicke Korsakoff's syndrome. 3. Alcohol use disorder. Assessment AND Plan: Stable. Continue with same treatment and monitor. Risk Assessment Suicide: low Homicide: low Deliberate Self-Harm: low Aggression: low IInterventions Biological: continue same medications. Check: VS per protocol Precautions: standard Psychological: group therapy and millieu therapy Social: Discuss placement with family DISCHARGE PLANNING: Discharge once placement determined and arrangements made Length Of Session: I spent a total of 35 to 40 minutes on date of service which included preparing to see the patient, [id number] patient care, performing medically appropriate exam, clinical documentation, and discussion with the multidisciplinary team for care coordination. Plan of care reviewed with Dr Webb. SIGNATURE: Janine Dunn APRN.CNP DATE: October 27, 2024 TIME: 11:14 AM [facility] 10-25-2024 Note HNO ID: [id number] Author: RINA DAILEY APRN.CNP Service: ? Author Type: Nurse Practitioner Type: Progress Notes Filed: 10/27/2024 14:52 Note Text: INTERNAL MEDICINE PROGRESS NOTE Name: Messi Waldrop SERVICE DATE: October 25, 2024 ASSESSMENT AND PLAN Principal Problem: Acute psychosis (HCC) (POA: Yes) Assessment AND Plan:following psych poc CHF Vitamin D def Anemia COPD CKD HTN AFIB- on eliquis Resolved Problems: * No resolved hospital problems. * SUBJECTIVE INTERVAL HPI: 69 year old male presented with past medical history of Severe Alcohol Use Disorder, Alcohol Withdrawal, Wernicke's Encephalopathy, Chronic Systolic CHF, Paroxysmal Atrial Fibrillation on eliquis, HTN, COPD, CKD Stage. No chest pain, SOB or palpitations. No N/V/D. No fever, chills or sore throat. No dysuria. No bleeding. OBJECTIVE PHYSICAL EXAM: Blood pressure 110/68, pulse 84, temperature 36.8 ?C (98.2 ?F), temperature source Oral, resp. rate 16, height 175.3 cm (5' 9), weight 75.2 kg (165 lb 11.2 oz), SpO2 97%., Body mass index is 24.47 kg/m?. GENERAL: No acute distress. LUNGS: Lungs clear to auscultation. Good diaphragmatic excursion. CARDIAC: normal S1 and S2; no rubs, murmurs, or gallops ABDOMEN: Abdomen soft, non-tender. BS normal. No masses or organomegaly. NEURO: Alert, oriented to person, place, and time. MEDICATION: Current Facility-Administered Medications Medication Dose Route Frequency hydrOXYzine HCl 25 mg tab(s) (ATARAX) 25 mg ORAL q 4 H PRN benztropine 0.5 mg tab(s) (COGENTIN) 0.5 mg ORAL q 4 H PRN haloperidol 0.5 mg tab(s) (HALDOL) 0.5 mg ORAL q 4 H PRN Or haloperidol lactate 0.5 mg short-acting injection (HALDOL) 0.5 mg INTRAMUSCULAR q 4 H PRN magnesium hydroxide 400 mg/5 mL 30 mL (MOM) 30 mL ORAL DAILY PRN diphenhydrAMINE 50 mg injection (BENADRYL) 50 mg INTRAMUSCULAR q 30 MIN PRN nicotine polacrilex 2 mg gum (NICORETTE) 2 mg ORAL q 2 H PRN apixaban 5 mg tab(s) (ELIQUIS) 5 mg ORAL BID metoprolol succinate ER 50 mg tab(s) (TOPROL XL) 50 mg ORAL DAILY sertraline 50 mg tab(s) (ZOLOFT) 50 mg ORAL DAILY naltrexone 50 mg tab(s) 50 mg ORAL DAILY cholecalciferol 2,000 Units tab(s) (VITAMIN D3) 2,000 Units ORAL DAILY melatonin 6 mg tab(s) 6 mg ORAL AT BEDTIME thiamine 100 mg tab(s) (VITAMIN B1) 100 mg ORAL/FEEDING TUBE TID zinc sulfate 220 mg capsule(s) 220 mg ORAL DAILY OLANZapine 5 mg tab(s) (ZYPREXA) 5 mg ORAL AT BEDTIME OLANZapine 2.5 mg tab(s) (ZYPREXA) 2.5 mg ORAL DAILY gabapentin 100 mg cap(s) (NEURONTIN) 100 mg ORAL q 6 H PRN nicotine 21 mg/24 hr 1 Patch (NICODERM) 1 Patch TRANSDERMAL DAILY And nicotine -- REMOVE patch OTHER DAILY And nicotine - verify patch OTHER q 8 H benzocaine-menthol 1 Lozenge (CEPACOL) 1 Lozenge MUCOUS MEMBRANE (TOPICAL MOUTH AND THROAT) q 2 H PRN acetaminophen 650 mg tab(s) (TYLENOL) 650 mg ORAL q 6 H PRN divalproex ER 1,000 mg tab(s) (DEPAKOTE ER) 1,000 mg ORAL DAILY traZODone 25 mg tab(s) (DESYREL) 25 mg ORAL AT BEDTIME PRN URINE OUTPUT: Intake/Output Summary (Last 24 hours) at 10/25/2024 1217 Last data filed at 10/24/2024 1706 Gross per 24 hour Intake 480 ml Output -- Net 480 ml LABORATORY: CBC, Coags, BMP, Mg, Phos TSH Date Value Ref Range Status 10/11/2024 3.880 0.270 - 4.200 mIU/L Final Liver Function, Amylase, AND Lipase Cardiac Enzymes ABGs Plan of care discussed with patient and staff. I spent a total of 40 minutes on the date of the service which included preparing to see the patient, [id number] patient care, completing clinical documentation, obtaining and/or reviewing separately obtained history, performing a medically appropriate examination, counseling and educating the patient/family/caregiver, ordering medications, tests, or procedures, communicating with other HCPs (not separately reported), independently interpreting results (not separately reported), communicating results to the patient/family/caregiver, and care coordination (not separately reported). SIGNATURE: Rina Dailey APRN.FOUNDER PRESIDENT AND CEO DATE: October 25, 2024 [facility] 10-25-2024 Note HNO ID: [id number] Author: MARY WEBB MD Service: Behavioral Health Author Type: Physician Type: Progress Notes Filed: 10/29/2024 11:34 Note Text: [facility] - Psych Progress Note MESSI WALDROP : 1955 AGE: 69 SEX: M CSN: [id number] [facility] [facility] LOCATION: [id number] ATTENDING PHYSICIAN: GREG WEBB DATE OF SERVICE: 10/25/2024 TIME OF SERVICE: 11:30 AM The patient is a 69-year-old male with prior history of alcohol use disorder. The patient was admitted because of worsening of his confusion. Further, he was voicing suicidal ideation, had atrial fibrillation with heart failure, was initially admitted to medical floor in [facility] and transferred later here because of his agitation, confused, disorganized, and exit seeking behavior. The patient was found to be oriented to self also. It is clear that the patient has dementia due to alcohol use disorder. Further, he has Wernicke encephalopathy, which appears to be stabilizing. The patient's behavior is improving. He is not as intrusive or inappropriate as he has been, however, is still is quite focused on discharge, has absolutely no insight, oriented to self only and needs significant amount of redirection and help. The patient's progress, discharge planning, and followup care were reviewed with the members of the treatment team. The patient's chart including lab work, vital signs, and other details reviewed. No current facility-administered medications on file prior to encounter. Current Outpatient Medications on File Prior to Encounter Medication Sig apixaban (ELIQUIS) 5 mg tab(s) Take 1 tablet by mouth two times a day. cholecalciferol (VITAMIN D3) 1,000 unit tab tablet Take 2 tablets by mouth once daily. diphenhydrAMINE (BENADRYL) 50 mg/mL injection Inject 50 mg intramuscularly once daily as needed (Third line Agitation). divalproex DR (DEPAKOTE) 250 mg EC tablet Take 1 tablet by mouth daily at bedtime. melatonin 3 mg tablet Take 2 tablets by mouth daily at bedtime. metoprolol succinate ER (TOPROL XL) 50 mg 24 hr tablet Take 1 tablet by mouth once daily. naltrexone 50 mg tablet Take 1 tablet by mouth once daily. nicotine polacrilex (NICORETTE) 2 mg gum Take 1 Each by mouth every 2 hours as needed. sertraline (ZOLOFT) 50 mg tablet Take 1 tablet by mouth once daily. thiamine (VITAMIN B1) 100 mg tablet 1 tablet by ORAL/FEEDING TUBE route three times a day. zinc sulfate 220 mg (50 mg zinc) capsule Take 1 capsule by mouth once daily for [address] (DEPAKOTE) 125 mg EC tablet Take 1 tablet by mouth two times a day. I would continue with current combination medication including Zyprexa along with Zoloft as well as Depakote. His discharge planning is in progress. Meanwhile, he will be transferred to an extended care facility. He already has a guardian appointed as soon as all the necessary arrangements completed. He will be transferred with outpatient followup to an extended care facility. Greg Webb M.D. Psychiatry :[id number] /[id number] [facility] 10-24-2024 Note HNO ID: [id number] Author: ELIJAH FLORES LSW Service: Care Management Author Type: Naphthalene Still Operator Type: Care Mgt Progress Note Filed: 10/24/2024 10:44 Note Text: BEHAVIORAL HEALTH SOCIAL WORK PROGRESS NOTE SERVICE DATE: 10/24/2024 SERVICE TIME: 10:42 Left a VM with patient's son to get an update on the [facility] Patient is medication and care compliant and denies any SI/HI/or AVHs. He has been social with peers. Support and stabilization to continue. Awaiting a return call from son. SIGNATURE: CAR Bauer PATIENT NAME: Messi Max November DATE: October 24, 2024 TIME: 10:42 AM [facility] 10-24-2024 Note HNO ID: [id number] Author: MARY WEBB MD Service: Behavioral Health Author Type: Physician Type: Progress Notes Filed: 10/27/2024 10:15 Note Text: [facility] - Psych Progress Note MESSI WALDROP : 1955 AGE: 69 SEX: M CSN: [id number] [facility]: [facility] LOCATION[place] [facility] [place] [facility] [place] ATTENDING PHYSICIAN: GREG WEBB DATE OF SERVICE: 10/24/2024 TIME OF SERVICE: 10:00 AM The patient is a 69-year-old male with severe cognitive decline as a result of alcohol use disorder. The patient was initially admitted to medical floor at [facility]. The patient was expressing suicidal ideations and was drinking continuously. The patient appears to be settling down. His behavior, especially inappropriate behavior has subsided significantly. Depression, mood lability seems to be improving. Obviously, he is cognitively highly impaired. Memory is very poor. Lot of time does not remember what he said only a few minutes ago and has been noted to be repetitive and is focused on going home. Due to the patient's profound cognitive deficit, he needs to go to an extended care facility. His family, especially his son is pursuing this plan; however, there are still certain steps he has to take and we are waiting for him to finalize his contacting the extended care facility before the patient can be discharged there. Meanwhile, the patient's progress, discharge planning, and followup care were reviewed with the members of the treatment team. The patient's chart including lab work, vital signs, and other details were reviewed. No current facility-administered medications on file prior to encounter. Current Outpatient Medications on File Prior to Encounter Medication Sig apixaban (ELIQUIS) 5 mg tab(s) Take 1 tablet by mouth two times a day. cholecalciferol (VITAMIN D3) 1,000 unit tab tablet Take 2 tablets by mouth once daily. diphenhydrAMINE (BENADRYL) 50 mg/mL injection Inject 50 mg intramuscularly once daily as needed (Third line Agitation). divalproex DR (DEPAKOTE) 250 mg EC tablet Take 1 tablet by mouth daily at bedtime. melatonin 3 mg tablet Take 2 tablets by mouth daily at bedtime. metoprolol succinate ER (TOPROL XL) 50 mg 24 hr tablet Take 1 tablet by mouth once daily. naltrexone 50 mg tablet Take 1 tablet by mouth once daily. nicotine polacrilex (NICORETTE) 2 mg gum Take 1 Each by mouth every 2 hours as needed. sertraline (ZOLOFT) 50 mg tablet Take 1 tablet by mouth once daily. thiamine (VITAMIN B1) 100 mg tablet 1 tablet by ORAL/FEEDING TUBE route three times a day. zinc sulfate 220 mg (50 mg zinc) capsule Take 1 capsule by mouth once daily for [address] (DEPAKOTE) 125 mg EC tablet Take 1 tablet by mouth two times a day. I would at the moment continue with current combination medication including Zyprexa along with Depakote as well as Zoloft. He is also being encouraged to participate in other treatment activities. Once his condition improves further, discharge to an extended care facility would be finalized. Greg Webb M.D. Psychiatry :[id number] /[id number] [facility] 10-23-2024 Note HNO ID: [id number] Author: RUBIA HEARN LISW Service: Care Management Author Type: Naphthalene Still Operator Type: Social Work Filed: 10/23/2024 16:23 Note Text: BEHAVIORAL HEALTH SOCIAL WORK PROGRESS NOTE SERVICE DATE: 10/23/2024 SERVICE TIME: 12:00p.m Spoke with the pts son, Nahun regarding addressing the financial issues with [facility] to facilitate discharge. He reported that since someone other than he was appointed as guardian he is not sure about being able to use his father's money. Suggested that he call his attorney at law to clarify since the guardianship is for person only. The pt has been restless this afternoon. He has repeatedly asked about going home today. Will continue supportive services. SIGNATURE: Jj Jacques,MIGUEL-S,GASOLINE PLANT OPERATOR PATIENT NAME: Messi Waldrop DATE: October 23, 2024 TIME: 3:52 PM [facility] 10-23-2024 Note HNO ID: [id number] Author: MARY WEBB MD Service: Behavioral Health Author Type: Physician Type: Progress Notes Filed: 10/27/2024 10:13 Note Text: [facility] - Psych Progress Note MESSI WALDROP : 1955 AGE: 69 SEX: M CSN: [id number] [facility]: [facility] LOCATION: [facility] [place] [facility] [place] ATTENDING PHYSICIAN: Greg Webb M.D. DATE OF SERVICE: 10/23/2024 TIME OF SERVICE: 12:00 PM The patient is a 69-year-old male with extensive history of alcohol use disorder. The patient also has multiple medical issues. As a result of his alcohol use, he has Korsakoff/Wernicke encephalopathy, which is not resolving, has significant cognitive deficit and clearly has major neurocognitive disorder. The patient continues to have ups and downs in his mood, at times intrusive, needs lot of redirection and support. Short-term memory as well as long-term memory, insight, judgment, executive functioning, reasoning, and ability to self-care are highly impaired. Initially, the patient was inappropriate sexually and socially which is much better with the help of a treatment. The patient's progress, discharge planning, and followup care were reviewed with the members of the treatment team. The patient's chart including lab work, vital signs, and other details were reviewed. We are actively seeking placement. His son and community agents have involved. Guardianship has been approved and hopefully, he could be transferred to an extended care facility once all the necessary arrangements are completed. No current facility-administered medications on file prior to encounter. Current Outpatient Medications on File Prior to Encounter Medication Sig apixaban (ELIQUIS) 5 mg tab(s) Take 1 tablet by mouth two times a day. cholecalciferol (VITAMIN D3) 1,000 unit tab tablet Take 2 tablets by mouth once daily. diphenhydrAMINE (BENADRYL) 50 mg/mL injection Inject 50 mg intramuscularly once daily as needed (Third line Agitation). divalproex DR (DEPAKOTE) 250 mg EC tablet Take 1 tablet by mouth daily at bedtime. melatonin 3 mg tablet Take 2 tablets by mouth daily at bedtime. metoprolol succinate ER (TOPROL XL) 50 mg 24 hr tablet Take 1 tablet by mouth once daily. naltrexone 50 mg tablet Take 1 tablet by mouth once daily. nicotine polacrilex (NICORETTE) 2 mg gum Take 1 Each by mouth every 2 hours as needed. sertraline (ZOLOFT) 50 mg tablet Take 1 tablet by mouth once daily. thiamine (VITAMIN B1) 100 mg tablet 1 tablet by ORAL/FEEDING TUBE route three times a day. zinc sulfate 220 mg (50 mg zinc) capsule Take 1 capsule by mouth once daily for [address] (DEPAKOTE) 125 mg EC tablet Take 1 tablet by mouth two times a day. I will meanwhile continue with current combination of medications including Zyprexa and Zoloft along with Depakote. Greg Webb M.D. Psychiatry :[id number] /[id number] [facility] 10-22-2024 Note HNO ID: [id number] Author: RUBIA HEARN LISW Service: Care Management Author Type: Naphthalene Still Operator Type: Social Work Filed: 10/22/2024 16:40 Note Text: BEHAVIORAL HEALTH SOCIAL WORK PROGRESS NOTE SERVICE DATE: 10/22/2024 SERVICE TIME: 3:00p.m. The pt has been pleasant and cooperative when seen today. He did not say anything about a hearing. Received a copy of the Letter of Guardianship from today's hearing. [facility] [employer] [phone] [place] [phone] was awarded guardianship of person, until November 22 2024. Contacted Peggy at [facility] who reported that she had not spoken with the son today. Will continue supportive services. SIGNATURE: Jj Jacques,MIGUEL-S,GASOLINE PLANT OPERATOR PATIENT NAME: Messi Max November DATE: October 22, 2024 TIME: 4:23 PM [facility] 10-22-2024 Note HNO ID: [id number] Author: JANINE DUNN APRN.CNP Service: Behavioral Health Author Type: Nurse Practitioner Type: Progress Notes Filed: 10/22/2024 13:46 Note Text: BEHAVIORAL HEALTH PROGRESS NOTE Patient Name: Messi Waldrop SERVICE DATE: 10/22/2024 SERVICE TIME: 1:40 PM SUBJECTIVE: Patient seen, chart reviewed, spoke with staff. This is a 69 year old male with history of alcohol use disorder with resultant Korsakoff syndrome/neurocognitive disorder. Patient was admitted upon transfer from [facility] [place] he was initially admitted due to CHF/A-fib. Patient was noted to be highly disorganized and agitated and was therefore transferred to for further evaluation and treatment. The patient remains stable on a combination of Depakote, naltrexone, Zyprexa, and Zoloft. Remains oriented to person and place. Speech is clear and relevant though nonspontaneous. Tends to isolate to room but has attended some group activities. He has been compliant with medications and care. No disruptive or aggressive behaviors on unit. Patient lacks both insight and judgment into his condition and therefore son is looking into obtaining guardianship. Condition: improving Medical Problems: PAST MEDICAL HISTORY Diagnosis Date Cancer (HCC) Surgical Problems: No past surgical history on file. Adverse effects to medications: No PRN'S given: No Sleep: Good Appetite: Good PHYSICAL EXAM: BP 111/59 Pulse 82 Temp 36.9 ?C (98.4 ?F) (Oral) Resp 16 Ht 175.3 cm (5' 9) Wt 75.2 kg (165 lb 11.2 oz) SpO2 98% BMI 24.47 kg/m? Mental Status: Orientation: Person and Place Appearance/Personal Hygiene: Disheveled, Poor hygiene Eye Contact: Direct Psychomotor Activity: wnl Speech: Clear, nonspontaneous Mood/Affect: Euthymic Thought Process: Coherent Thought Content: Coherent Judgment: Poor Tremors: No Gait: Normal Insight: Poor MEDICATIONS: Current Facility-Administered Medications Medication Dose Route Frequency hydrOXYzine HCl 25 mg tab(s) (ATARAX) 25 mg ORAL q 4 H PRN benztropine 0.5 mg tab(s) (COGENTIN) 0.5 mg ORAL q 4 H PRN haloperidol 0.5 mg tab(s) (HALDOL) 0.5 mg ORAL q 4 H PRN Or haloperidol lactate 0.5 mg short-acting injection (HALDOL) 0.5 mg INTRAMUSCULAR q 4 H PRN magnesium hydroxide 400 mg/5 mL 30 mL (MOM) 30 mL ORAL DAILY PRN diphenhydrAMINE 50 mg injection (BENADRYL) 50 mg INTRAMUSCULAR q 30 MIN PRN nicotine polacrilex 2 mg gum (NICORETTE) 2 mg ORAL q 2 H PRN apixaban 5 mg tab(s) (ELIQUIS) 5 mg ORAL BID metoprolol succinate ER 50 mg tab(s) (TOPROL XL) 50 mg ORAL DAILY sertraline 50 mg tab(s) (ZOLOFT) 50 mg ORAL DAILY naltrexone 50 mg tab(s) 50 mg ORAL DAILY cholecalciferol 2,000 Units tab(s) (VITAMIN D3) 2,000 Units ORAL DAILY melatonin 6 mg tab(s) 6 mg ORAL AT BEDTIME thiamine 100 mg tab(s) (VITAMIN B1) 100 mg ORAL/FEEDING TUBE TID zinc sulfate 220 mg capsule(s) 220 mg ORAL DAILY OLANZapine 5 mg tab(s) (ZYPREXA) 5 mg ORAL AT BEDTIME OLANZapine 2.5 mg tab(s) (ZYPREXA) 2.5 mg ORAL DAILY gabapentin 100 mg cap(s) (NEURONTIN) 100 mg ORAL q 6 H PRN nicotine 21 mg/24 hr 1 Patch (NICODERM) 1 Patch TRANSDERMAL DAILY And nicotine -- REMOVE patch OTHER DAILY And nicotine - verify patch OTHER q 8 H benzocaine-menthol 1 Lozenge (CEPACOL) 1 Lozenge MUCOUS MEMBRANE (TOPICAL MOUTH AND THROAT) q 2 H PRN acetaminophen 650 mg tab(s) (TYLENOL) 650 mg ORAL q 6 H PRN divalproex ER 1,000 mg tab(s) (DEPAKOTE ER) 1,000 mg ORAL DAILY traZODone 25 mg tab(s) (DESYREL) 25 mg ORAL AT BEDTIME PRN DATA: Diagnostic tests reviewed for today's visit: Most recent labs ASSESSMENT AND PLAN: Principal Problem: 1. Major neurocognitive disorder due to alcohol use disorder. 2. Wernicke Korsakoff's syndrome. 3. Alcohol use disorder. Assessment AND Plan: Stable, will continue with same treatment and monitor. Son is working on getting guardianship. Risk Assessment Suicide: low Homicide: low Deliberate Self-Harm: low Aggression: low IInterventions Biological: continue same medications. Check: Vital signs per protocol Precautions: Standard Psychological: group therapy and millieu therapy Social: Discuss placement with family DISCHARGE PLANNING: Discharge once placement is determined mood Length Of Session: I spent a total of 35 to 40 minutes on date of service which included preparing to see the patient, [id number] patient care, performing medically appropriate exam, clinical documentation, and discussion with the multidisciplinary team for care coordination. Plan of care reviewed with Dr Webb. SIGNATURE: Janine Dunn APRN.CNP DATE: October 22, 2024 TIME: 1:40 PM [facility] 10-21-2024 Note HNO ID: [id number] Author: RUBIA HEARN LISW Service: Care Management Author Type: Naphthalene Still Operator Type: Social Work Filed: 10/21/2024 12:53 Note Text: BEHAVIORAL HEALTH SOCIAL WORK PROGRESS NOTE SERVICE DATE: 10/21/2024 SERVICE TIME: 9:30a.m. Received a call from the [facility] [facility] digital forensics investigator, Daphnie Villalobos. She reported that she had been trying to locate the pt to serve him notification of hearing on October 22 at 10:00a.m. She did come and meet with the pt. The pt continues to lack insight and does not believe he needs a guardian. The pt has been asking about discharge home all morning. Contacted the pt sonNahun to inform him of the notification. He will call the court to obtain further information. Forms submitted to [facility]. Will continue supportive services. SIGNATURE: Jj Jacques LPC-S,GASOLINE PLANT OPERATOR PATIENT NAME: Messi Max November DATE: October 21, 2024 TIME: 11:35 AM [facility] 10-21-2024 Note HNO ID: [id number] Author: MARY WEBB MD Service: Behavioral Health Author Type: Physician Type: Progress Notes Filed: 10/27/2024 10:10 Note Text: [facility] - Psych Progress Note MESSI WALDROP : 1955 AGE: 69 SEX: M CSN: [id number] [facility]: PSY LOCATION: 605D01 ATTENDING PHYSICIAN: GREG WEBB DATE OF SERVICE: 10/21/2024 TIME OF SERVICE: 09:30 AM The patient is a 69-year-old male with severe cognitive impairment as a result of alcohol use disorder, was admitted upon transfer from [facility] medical floor. The patient was drinking prior to coming to the hospital and appears that he has severe memory and cognitive deficits. The patient appears to be settling down. Initially, he was exhibiting significant amount of behavioral issues, which appeared to have subsided to some extent now. Cognitively, he is oriented to self and partially oriented to place, has no clue what is going on with him, insists on going home to pay property taxes which obviously does not make lot of sense. The patient's progress, discharge planning, and followup care were reviewed with the members of the treatment team. The patient's chart including lab work, vital signs, and other details were reviewed. I would continue with current combination medications including Depakote, Zoloft, and Zyprexa. He is to be transferred to an extended care facility as soon as all the necessary arrangements are completed. No current facility-administered medications on file prior to encounter. Current Outpatient Medications on File Prior to Encounter Medication Sig apixaban (ELIQUIS) 5 mg tab(s) Take 1 tablet by mouth two times a day. cholecalciferol (VITAMIN D3) 1,000 unit tab tablet Take 2 tablets by mouth once daily. diphenhydrAMINE (BENADRYL) 50 mg/mL injection Inject 50 mg intramuscularly once daily as needed (Third line Agitation). divalproex DR (DEPAKOTE) 250 mg EC tablet Take 1 tablet by mouth daily at bedtime. melatonin 3 mg tablet Take 2 tablets by mouth daily at bedtime. metoprolol succinate ER (TOPROL XL) 50 mg 24 hr tablet Take 1 tablet by mouth once daily. naltrexone 50 mg tablet Take 1 tablet by mouth once daily. nicotine polacrilex (NICORETTE) 2 mg gum Take 1 Each by mouth every 2 hours as needed. sertraline (ZOLOFT) 50 mg tablet Take 1 tablet by mouth once daily. thiamine (VITAMIN B1) 100 mg tablet 1 tablet by ORAL/FEEDING TUBE route three times a day. zinc sulfate 220 mg (50 mg zinc) capsule Take 1 capsule by mouth once daily for [address] (DEPAKOTE) 125 mg EC tablet Take 1 tablet by mouth two times a day. Meanwhile, his guardianship paperwork has been processed through probate court and guardian has been appointed. However, all the legal proceedings are not completed as soon as we have more clearer directions. He will be transferred to an extended care facility chosen by his family. Greg Webb M.D. Psychiatry :[id number] /[id number] [facility] 10-20-2024 Note HNO ID: [id number] Author: RUBIA HEARN LISW Service: Care Management Author Type: Naphthalene Still Operator Type: Social Work Filed: 10/20/2024 17:27 Note Text: BEHAVIORAL HEALTH SOCIAL WORK PROGRESS NOTE SERVICE DATE: 10/20/2024 SERVICE TIME: 1030a.m. Spoke with Peggy of [facility] to inquire if the son had provided documentation regarding finances. She stated that she will reach out to [facility] today. This afternoon the pt was sleeping in his bed when approached. He had had his lunch in his room and a urinal full on the railing. He did not wake when attempting to talk. This afternoon received a call from Angus Tian, Guardianship [employer] at [facility] ([phone] or [phone]). She is the acting guardian of Messi until 10/23/2024. She would handle any placement issues. She was unaware of the son, Beltran Waldrop who was to apply. Informed that the plan was for the pt to go to [facility] as soon as the son completed the forms. Contacted the pts son. He was unaware of the hearing today. He had not filed anything with the court due to being overwhelmed with trying to understand the documents. He has an appointment with an attorney at law on for assistance. He reported that he thought he had to wait until the guardianship was through for the [facility] admission. Explained that they were waiting for information regarding the finances. He reported that he would call Peggy. Provide the son the contact information information regarding Huang Tian . THE PT HAS A LEGAL GUARDIAN. HUANG TIAN OF [facility] [employer] [phone] [place] [phone]. A full hearing will be held later. SIGNATURE: Rubia Hearn,Jj,MIGUEL-S,GASOLINE PLANT OPERATOR PATIENT NAME: Messi Max November DATE: October 20, 2024 TIME: 5:27 PM [facility] 10-20-2024 Note HNO ID: [id number] Author: AJNINE DUNN APRN.CNP Service: Behavioral Health Author Type: Nurse Practitioner Type: Progress Notes Filed: 10/20/2024 12:38 Note Text: BEHAVIORAL HEALTH PROGRESS NOTE Patient Name: Messi Waldrop SERVICE DATE: 10/20/2024 SERVICE TIME: 12:31 PM SUBJECTIVE: Patient seen, chart reviewed, spoke with staff. This is a 69 year old male with history of alcohol use disorder with resultant Korsakoff syndrome/neurocognitive disorder. He was admitted from [facility] medical unit ([facility]) due to increased agitation and disorganzation. Prior to admission pt told his brother he wanted to drink himself to . The pt remains on naltrexone, zyprexa, and zoloft. He has had no aggressive or disruptive behaviors. No inappropriate sexual comments gordy. Interaction is superficial, remains discharged focused. Aox3. Compliant with meds and care. Condition: improving Medical Problems: PAST MEDICAL HISTORY Diagnosis Date Cancer (HCC) Surgical Problems: No past surgical history on file. Adverse effects to medications: No PRN'S given: No Sleep: good Appetite: good PHYSICAL EXAM: BP 146/72 Pulse 84 Temp 37 ?C (98.6 ?F) (Oral) Resp 16 Ht 175.3 cm (5' 9) Wt 75.2 kg (165 lb 11.2 oz) SpO2 96% BMI 24.47 kg/m? Mental Status: Orientation: To Person, Place and Time Appearance/Personal Hygiene: Appropriately groomed Eye Contact: Direct Psychomotor Activity: wnl Speech: clear Mood/Affect: Appropriate Thought Process: Coherent Thought Content: Coherent Perception: Patient Denies, None Noted Suicidal Ideation/Intentions: No Homicidal Ideation/Intentions: No Insight: Impaired Judgement: impaired Intelligence: Average Memory/Cognition: Mildly Impaired Tremors: No Gait: Normal MEDICATIONS: Current Facility-Administered Medications Medication Dose Route Frequency hydrOXYzine HCl 25 mg tab(s) (ATARAX) 25 mg ORAL q 4 H PRN benztropine 0.5 mg tab(s) (COGENTIN) 0.5 mg ORAL q 4 H PRN haloperidol 0.5 mg tab(s) (HALDOL) 0.5 mg ORAL q 4 H PRN Or haloperidol lactate 0.5 mg short-acting injection (HALDOL) 0.5 mg INTRAMUSCULAR q 4 H PRN magnesium hydroxide 400 mg/5 mL 30 mL (MOM) 30 mL ORAL DAILY PRN diphenhydrAMINE 50 mg injection (BENADRYL) 50 mg INTRAMUSCULAR q 30 MIN PRN nicotine polacrilex 2 mg gum (NICORETTE) 2 mg ORAL q 2 H PRN apixaban 5 mg tab(s) (ELIQUIS) 5 mg ORAL BID metoprolol succinate ER 50 mg tab(s) (TOPROL XL) 50 mg ORAL DAILY sertraline 50 mg tab(s) (ZOLOFT) 50 mg ORAL DAILY naltrexone 50 mg tab(s) 50 mg ORAL DAILY cholecalciferol 2,000 Units tab(s) (VITAMIN D3) 2,000 Units ORAL DAILY melatonin 6 mg tab(s) 6 mg ORAL AT BEDTIME thiamine 100 mg tab(s) (VITAMIN B1) 100 mg ORAL/FEEDING TUBE TID zinc sulfate 220 mg capsule(s) 220 mg ORAL DAILY OLANZapine 5 mg tab(s) (ZYPREXA) 5 mg ORAL AT BEDTIME OLANZapine 2.5 mg tab(s) (ZYPREXA) 2.5 mg ORAL DAILY gabapentin 100 mg cap(s) (NEURONTIN) 100 mg ORAL q 6 H PRN nicotine 21 mg/24 hr 1 Patch (NICODERM) 1 Patch TRANSDERMAL DAILY And nicotine -- REMOVE patch OTHER DAILY And nicotine - verify patch OTHER q 8 H benzocaine-menthol 1 Lozenge (CEPACOL) 1 Lozenge MUCOUS MEMBRANE (TOPICAL MOUTH AND THROAT) q 2 H PRN acetaminophen 650 mg tab(s) (TYLENOL) 650 mg ORAL q 6 H PRN divalproex ER 1,000 mg tab(s) (DEPAKOTE ER) 1,000 mg ORAL DAILY traZODone 25 mg tab(s) (DESYREL) 25 mg ORAL AT BEDTIME PRN DATA: Diagnostic tests reviewed for today's visit: Most recent labs ASSESSMENT AND PLAN: Principal Problem: 1. Major neurocognitive disorder due to alcohol use disorder. 2. Wernicke Korsakoff's syndrome. 3. Alcohol use disorder. Assessment AND Plan: Stable, continue with same treatment and monitor. Risk Assessment Suicide: low Homicide: low Deliberate Self-Harm: low Aggression: low IInterventions Biological: continue same medications. Check: VS per protocol Precautions: standard, sexual Psychological: group therapy and millieu therapy Social: Likely DC to [address] DISCHARGE PLANNING: DC likely mid to end of week Length Of Session: I spent a total of 35 to 40 minutes on date of service which included preparing to see the patient, [id number] patient care, performing medically appropriate exam, clinical documentation, and discussion with the multidisciplinary team for care coordination. Plan of care reviewed with Dr Webb. SIGNATURE: Janine Dunn APRN.[employer]IDENT [employer] DATE: October 20, 2024 TIME: 12:31 PM [facility] 10-20-2024 Note HNO ID: [id number] Author: MARY JO BYRD MD Service: General Internal Medicine Author Type: Physician Type: Progress Notes Filed: 10/20/2024 09:52 Note Text: INTERNAL MEDICINE PROGRESS NOTE Name: Messi Waldrop SERVICE DATE: October 20, 2024 ASSESSMENT AND PLAN Principal Problem: Acute psychosis (HCC) (POA: Yes) Assessment AND Plan:following psych poc CHF Vitamin D def Anemia COPD CKD HTN AFIB- on eliquis Resolved Problems: * No resolved hospital problems. * SUBJECTIVE INTERVAL HPI: 69 year old male presented with past medical history of Severe Alcohol Use Disorder, Alcohol Withdrawal, Wernicke's Encephalopathy, Chronic Systolic CHF, Paroxysmal Atrial Fibrillation on eliquis, HTN, COPD, CKD Stage. No chest pain, SOB or palpitations. No N/V/D. No fever, chills or sore throat. No dysuria. No bleeding. OBJECTIVE PHYSICAL EXAM: Blood pressure 146/72, pulse 84, temperature 37 ?C (98.6 ?F), temperature source Oral, resp. rate 16, height 175.3 cm (5' 9), weight 75.2 kg (165 lb 11.2 oz), SpO2 96%., Body mass index is 24.47 kg/m?. LUNGS: Lungs clear to auscultation. Good diaphragmatic excursion. CARDIAC: normal S1 and S2; no rubs, murmurs, or gallops ABDOMEN: Abdomen soft, non-tender. BS normal. No masses or organomegaly. MEDICATION: Current Facility-Administered Medications Medication Dose Route Frequency hydrOXYzine HCl 25 mg tab(s) (ATARAX) 25 mg ORAL q 4 H PRN benztropine 0.5 mg tab(s) (COGENTIN) 0.5 mg ORAL q 4 H PRN haloperidol 0.5 mg tab(s) (HALDOL) 0.5 mg ORAL q 4 H PRN Or haloperidol lactate 0.5 mg short-acting injection (HALDOL) 0.5 mg INTRAMUSCULAR q 4 H PRN magnesium hydroxide 400 mg/5 mL 30 mL (MOM) 30 mL ORAL DAILY PRN diphenhydrAMINE 50 mg injection (BENADRYL) 50 mg INTRAMUSCULAR q 30 MIN PRN nicotine polacrilex 2 mg gum (NICORETTE) 2 mg ORAL q 2 H PRN apixaban 5 mg tab(s) (ELIQUIS) 5 mg ORAL BID metoprolol succinate ER 50 mg tab(s) (TOPROL XL) 50 mg ORAL DAILY sertraline 50 mg tab(s) (ZOLOFT) 50 mg ORAL DAILY naltrexone 50 mg tab(s) 50 mg ORAL DAILY cholecalciferol 2,000 Units tab(s) (VITAMIN D3) 2,000 Units ORAL DAILY melatonin 6 mg tab(s) 6 mg ORAL AT BEDTIME thiamine 100 mg tab(s) (VITAMIN B1) 100 mg ORAL/FEEDING TUBE TID zinc sulfate 220 mg capsule(s) 220 mg ORAL DAILY OLANZapine 5 mg tab(s) (ZYPREXA) 5 mg ORAL AT BEDTIME OLANZapine 2.5 mg tab(s) (ZYPREXA) 2.5 mg ORAL DAILY gabapentin 100 mg cap(s) (NEURONTIN) 100 mg ORAL q 6 H PRN nicotine 21 mg/24 hr 1 Patch (NICODERM) 1 Patch TRANSDERMAL DAILY And nicotine -- REMOVE patch OTHER DAILY And nicotine - verify patch OTHER q 8 H benzocaine-menthol 1 Lozenge (CEPACOL) 1 Lozenge MUCOUS MEMBRANE (TOPICAL MOUTH AND THROAT) q 2 H PRN acetaminophen 650 mg tab(s) (TYLENOL) 650 mg ORAL q 6 H PRN divalproex ER 1,000 mg tab(s) (DEPAKOTE ER) 1,000 mg ORAL DAILY traZODone 25 mg tab(s) (DESYREL) 25 mg ORAL AT BEDTIME PRN URINE OUTPUT: Intake/Output Summary (Last 24 hours) at 10/20/2024 0951 Last data filed at 10/19/2024 1658 Gross per 24 hour Intake 720 ml Output -- Net 720 ml LABORATORY: CBC, Coags, BMP, Mg, Phos Recent Labs 10/18/24 0611 WBC 4.47 HB 10.4* HCT 32.0* PLT 239 NA 137 K 4.4 CHLOR 103 CO2 25 BUN 35* CREAT 1.19 GLUC 75 CA 8.8 TSH Date Value Ref Range Status 10/11/2024 3.880 0.270 - 4.200 mIU/L Final Plan of care discussed with patient and staff. I spent a total of 40 minutes on the date of the service which included preparing to see the patient, [id number] patient care, completing clinical documentation, obtaining and/or reviewing separately obtained history, performing a medically appropriate examination, counseling and educating the patient/family/caregiver, ordering medications, tests, or procedures, communicating with other HCPs (not separately reported), independently interpreting results (not separately reported), communicating results to the patient/family/caregiver, and care coordination (not separately reported). SIGNATURE: Mary Jo Byrd MD DATE: October 20, 2024 [facility] 10-19-2024 Note HNO ID: [id number] Author: MARY JO BYRD MD Service: General Internal Medicine Author Type: Physician Type: Progress Notes Filed: 10/20/2024 09:51 Note Text: INTERNAL MEDICINE PROGRESS NOTE Name: Messi Waldrop SERVICE DATE: October 19, 2024 ASSESSMENT AND PLAN Principal Problem: Acute psychosis (HCC) (POA: Yes) Assessment AND Plan:following psych poc CHF Vitamin D def Anemia COPD CKD HTN AFIB- on eliquis Resolved Problems: * No resolved hospital problems. * SUBJECTIVE INTERVAL HPI: 69 year old male presented with past medical history of Severe Alcohol Use Disorder, Alcohol Withdrawal, Wernicke's Encephalopathy, Chronic Systolic CHF, Paroxysmal Atrial Fibrillation on eliquis, HTN, COPD, CKD Stage. No chest pain, SOB or palpitations. No N/V/D. No fever, chills or sore throat. No dysuria. No bleeding. OBJECTIVE PHYSICAL EXAM: Blood pressure 146/72, pulse 84, temperature 37 ?C (98.6 ?F), temperature source Oral, resp. rate 16, height 175.3 cm (5' 9), weight 75.2 kg (165 lb 11.2 oz), SpO2 96%., Body mass index is 24.47 kg/m?. LUNGS: Lungs clear to auscultation. Good diaphragmatic excursion. CARDIAC: normal S1 and S2; no rubs, murmurs, or gallops ABDOMEN: Abdomen soft, non-tender. BS normal. No masses or organomegaly. MEDICATION: Current Facility-Administered Medications Medication Dose Route Frequency hydrOXYzine HCl 25 mg tab(s) (ATARAX) 25 mg ORAL q 4 H PRN benztropine 0.5 mg tab(s) (COGENTIN) 0.5 mg ORAL q 4 H PRN haloperidol 0.5 mg tab(s) (HALDOL) 0.5 mg ORAL q 4 H PRN Or haloperidol lactate 0.5 mg short-acting injection (HALDOL) 0.5 mg INTRAMUSCULAR q 4 H PRN magnesium hydroxide 400 mg/5 mL 30 mL (MOM) 30 mL ORAL DAILY PRN diphenhydrAMINE 50 mg injection (BENADRYL) 50 mg INTRAMUSCULAR q 30 MIN PRN nicotine polacrilex 2 mg gum (NICORETTE) 2 mg ORAL q 2 H PRN apixaban 5 mg tab(s) (ELIQUIS) 5 mg ORAL BID metoprolol succinate ER 50 mg tab(s) (TOPROL XL) 50 mg ORAL DAILY sertraline 50 mg tab(s) (ZOLOFT) 50 mg ORAL DAILY naltrexone 50 mg tab(s) 50 mg ORAL DAILY cholecalciferol 2,000 Units tab(s) (VITAMIN D3) 2,000 Units ORAL DAILY melatonin 6 mg tab(s) 6 mg ORAL AT BEDTIME thiamine 100 mg tab(s) (VITAMIN B1) 100 mg ORAL/FEEDING TUBE TID zinc sulfate 220 mg capsule(s) 220 mg ORAL DAILY OLANZapine 5 mg tab(s) (ZYPREXA) 5 mg ORAL AT BEDTIME OLANZapine 2.5 mg tab(s) (ZYPREXA) 2.5 mg ORAL DAILY gabapentin 100 mg cap(s) (NEURONTIN) 100 mg ORAL q 6 H PRN nicotine 21 mg/24 hr 1 Patch (NICODERM) 1 Patch TRANSDERMAL DAILY And nicotine -- REMOVE patch OTHER DAILY And nicotine - verify patch OTHER q 8 H benzocaine-menthol 1 Lozenge (CEPACOL) 1 Lozenge MUCOUS MEMBRANE (TOPICAL MOUTH AND THROAT) q 2 H PRN acetaminophen 650 mg tab(s) (TYLENOL) 650 mg ORAL q 6 H PRN divalproex ER 1,000 mg tab(s) (DEPAKOTE ER) 1,000 mg ORAL DAILY traZODone 25 mg tab(s) (DESYREL) 25 mg ORAL AT BEDTIME PRN URINE OUTPUT: Intake/Output Summary (Last 24 hours) at 10/20/2024 0951 Last data filed at 10/19/2024 1658 Gross per 24 hour Intake 720 ml Output -- Net 720 ml LABORATORY: CBC, Coags, BMP, Mg, Phos Recent Labs 10/18/24 0611 WBC 4.47 HB 10.4* HCT 32.0* PLT 239 NA 137 K 4.4 CHLOR 103 CO2 25 BUN 35* CREAT 1.19 GLUC 75 CA 8.8 TSH Date Value Ref Range Status 10/11/2024 3.880 0.270 - 4.200 mIU/L Final Plan of care discussed with patient and staff. I spent a total of 40 minutes on the date of the service which included preparing to see the patient, [id number] patient care, completing clinical documentation, obtaining and/or reviewing separately obtained history, performing a medically appropriate examination, counseling and educating the patient/family/caregiver, ordering medications, tests, or procedures, communicating with other HCPs (not separately reported), independently interpreting results (not separately reported), communicating results to the patient/family/caregiver, and care coordination (not separately reported). SIGNATURE: Mary Jo Byrd MD DATE: October 19, 2024 [facility] 10-18-2024 Note HNO ID: [id number] Author: MARY WEBB MD Service: Behavioral Health Author Type: Physician Type: Progress Notes Filed: 10/27/2024 10:05 Note Text: [facility] - Psych Progress Note MESSI WALDROP : 1955 AGE: 69 SEX: M CSN: [id number] [facility] [place]: [facility] LOCATION: [facility] [place] [facility] [place] ATTENDING PHYSICIAN: Greg Webb M.D. DATE OF SERVICE: 10/18/2024 TIME OF SERVICE: 10:00 AM The patient is a 69-year-old male with extensive history of alcohol use disorder. He was admitted initially to [facility] with chief complaints of entertaining suicidal ideations and with a statement I want to drink myself to . The patient was found to have unstable atrial fibrillation and also had other cardiac issues including congestive heart failure. He was medically stabilized and [facility] and management. The patient apparently has significant and severe cognitive deficits. He has been diagnosed with Korsakoff's psychosis. He is oriented to 1 or 2. His level of alertness as much improved and he appears little bit calmer than before. Cognitively, however, he remains highly impaired. Memory both short-term and long- term is impaired. The patient's progress, discharge planning, and followup care were reviewed with the members of the treatment team. The patient's Chart including lab work, vital signs, and other details were reviewed. The patient initially was highly agitated, disruptive, and his behavior was quite inappropriate, but all that appears to be improving. No current facility-administered medications on file prior to encounter. Current Outpatient Medications on File Prior to Encounter Medication Sig apixaban (ELIQUIS) 5 mg tab(s) Take 1 tablet by mouth two times a day. cholecalciferol (VITAMIN D3) 1,000 unit tab tablet Take 2 tablets by mouth once daily. diphenhydrAMINE (BENADRYL) 50 mg/mL injection Inject 50 mg intramuscularly once daily as needed (Third line Agitation). divalproex DR (DEPAKOTE) 250 mg EC tablet Take 1 tablet by mouth daily at bedtime. melatonin 3 mg tablet Take 2 tablets by mouth daily at bedtime. metoprolol succinate ER (TOPROL XL) 50 mg 24 hr tablet Take 1 tablet by mouth once daily. naltrexone 50 mg tablet Take 1 tablet by mouth once daily. nicotine polacrilex (NICORETTE) 2 mg gum Take 1 Each by mouth every 2 hours as needed. sertraline (ZOLOFT) 50 mg tablet Take 1 tablet by mouth once daily. thiamine (VITAMIN B1) 100 mg tablet 1 tablet by ORAL/FEEDING TUBE route three times a day. zinc sulfate 220 mg (50 mg zinc) capsule Take 1 capsule by mouth once daily for [address] (DEPAKOTE) 125 mg EC tablet Take 1 tablet by mouth two times a day. ' The patient has been advised to continue taking his current medication including Depakote along with Zyprexa as well as Zoloft. He is being encouraged to participate in all other treatment activities. I will maintain him on current combination medication, wait further improvement before discharge to an extended care facility could be finalized. Greg Webb M.D. Psychiatry :[id number] /[id number] [facility] 10-17-2024 Note HNO ID: [id number] Author: JANINE DUNN APRN.CNP Service: Behavioral Health Author Type: Nurse Practitioner Type: Progress Notes Filed: 10/17/2024 13:36 Note Text: BEHAVIORAL HEALTH PROGRESS NOTE Patient Name: Messi Waldrop SERVICE DATE: 10/17/2024 SERVICE TIME: 1:31 PM SUBJECTIVE: Patient seen, chart reviewed, spoke with staff. This is a 69 year old male with history of alcohol use disorder with resultant Korsakoff syndrome/neurocognitive disorder. Patient was initially admitted to [facility] medical unit with diagnosis of A-fib/CHF. He was highly disorganized and agitated and once medically stabilized was transferred to for further evaluation and treatment. The patient remains on a combination of Depakote, Zyprexa, Zoloft, and naltrexone. He is showing improvement. No further sexually inappropriate comments or gestures. Mental status seems to be clearing up to some extent and patient is A and O x 3. Though unable to state the events that led up to his hospitalization. Patient can be intrusive at times however has been overall redirectable when needed. He has had no disruptive or aggressive behaviors on unit and has been compliant with medications and care. Condition: improving Medical Problems: PAST MEDICAL HISTORY Diagnosis Date Cancer (HCC) Surgical Problems: No past surgical history on file. Adverse effects to medications: No PRN'S given: No Sleep: Good Appetite: Good PHYSICAL EXAM: BP 138/75 Pulse 88 Temp 36.7 ?C (98.1 ?F) Resp 18 Ht 175.3 cm (5' 9) Wt 75.2 kg (165 lb 11.2 oz) SpO2 98% BMI 24.47 kg/m? Mental Status: Orientation: Person, Place, and Date Appearance/Personal Hygiene: Appropriately groomed Eye Contact: Direct Psychomotor Activity: wnl Speech: Clear, relevant Mood/Affect: Appropriate Thought Process: Coherent Thought Content: Coherent Perception: Patient Denies, None Noted Suicidal Ideation/Intentions: No Homicidal Ideation/Intentions: No Insight: Impaired Judgement: Impaired Intelligence: Average Memory/Cognition: Mildly Impaired Tremors: No Gait: Normal MEDICATIONS: Current Facility-Administered Medications Medication Dose Route Frequency hydrOXYzine HCl 25 mg tab(s) (ATARAX) 25 mg ORAL q 4 H PRN benztropine 0.5 mg tab(s) (COGENTIN) 0.5 mg ORAL q 4 H PRN haloperidol 0.5 mg tab(s) (HALDOL) 0.5 mg ORAL q 4 H PRN Or haloperidol lactate 0.5 mg short-acting injection (HALDOL) 0.5 mg INTRAMUSCULAR q 4 H PRN magnesium hydroxide 400 mg/5 mL 30 mL (MOM) 30 mL ORAL DAILY PRN diphenhydrAMINE 50 mg injection (BENADRYL) 50 mg INTRAMUSCULAR q 30 MIN PRN nicotine polacrilex 2 mg gum (NICORETTE) 2 mg ORAL q 2 H PRN apixaban 5 mg tab(s) (ELIQUIS) 5 mg ORAL BID metoprolol succinate ER 50 mg tab(s) (TOPROL XL) 50 mg ORAL DAILY sertraline 50 mg tab(s) (ZOLOFT) 50 mg ORAL DAILY naltrexone 50 mg tab(s) 50 mg ORAL DAILY cholecalciferol 2,000 Units tab(s) (VITAMIN D3) 2,000 Units ORAL DAILY melatonin 6 mg tab(s) 6 mg ORAL AT BEDTIME thiamine 100 mg tab(s) (VITAMIN B1) 100 mg ORAL/FEEDING TUBE TID zinc sulfate 220 mg capsule(s) 220 mg ORAL DAILY OLANZapine 5 mg tab(s) (ZYPREXA) 5 mg ORAL AT BEDTIME OLANZapine 2.5 mg tab(s) (ZYPREXA) 2.5 mg ORAL DAILY gabapentin 100 mg cap(s) (NEURONTIN) 100 mg ORAL q 6 H PRN nicotine 21 mg/24 hr 1 Patch (NICODERM) 1 Patch TRANSDERMAL DAILY And nicotine -- REMOVE patch OTHER DAILY And nicotine - verify patch OTHER q 8 H benzocaine-menthol 1 Lozenge (CEPACOL) 1 Lozenge MUCOUS MEMBRANE (TOPICAL MOUTH AND THROAT) q 2 H PRN acetaminophen 650 mg tab(s) (TYLENOL) 650 mg ORAL q 6 H PRN divalproex ER 1,000 mg tab(s) (DEPAKOTE ER) 1,000 mg ORAL DAILY traZODone 25 mg tab(s) (DESYREL) 25 mg ORAL AT BEDTIME PRN DATA: Diagnostic tests reviewed for today's visit: Most recent labs ASSESSMENT AND PLAN: Principal Problem: 1. Major neurocognitive disorder due to alcohol use disorder. 2. Wernicke Korsakoff's syndrome. 3. Alcohol use disorder. Assessment AND Plan: Patient is showing improvement. Will continue with same treatment and monitor Risk Assessment Suicide: low Homicide: low Deliberate Self-Harm: low Aggression: low IInterventions Biological: continue same medications. Check: Vital signs per protocol Precautions: Standard Psychological: group therapy and millieu therapy Social: Explore home situation DISCHARGE PLANNING: Discharge perhaps mid next week Length Of Session: I spent a total of 35 to 40 minutes on date of service which included preparing to see the patient, [id number] patient care, performing medically appropriate exam, clinical documentation, and discussion with the multidisciplinary team for care coordination. SIGNATURE: Janine Dunn APRN.CNP DATE: October 17, 2024 TIME: 1:31 PM [facility] 10-17-2024 Note HNO ID: [id number] Author: PETR SPENCE LSW Service: Care Management Author Type: Naphthalene Still Operator Type: Care Mgt Progress Note Filed: 10/17/2024 12:54 Note Text: BEHAVIORAL HEALTH SOCIAL WORK PROGRESS NOTE SERVICE DATE: 10/17/2024 SERVICE TIME: 12:52 PM Patient reviewed in treatment team; continues to be treatment and medication compliant. Bizarre and can be intrusive at times. Overall redirectable. Plan is for ECF placement once guardianship is obtained. No further SW needs, questions, and or concerns are presented to this expert medical writer. SW to provide update to son as needed. SW to follow. SIGNATURE: CAR Link PATIENT NAME: Messi Max November DATE: October 17, 2024 TIME: 12:49 PM [facility] 10-17-2024 Note HNO ID: [id number] Author: MARY JO BYRD MD Service: General Internal Medicine Author Type: Physician Type: Progress Notes Filed: 10/17/2024 09:41 Note Text: INTERNAL MEDICINE PROGRESS NOTE Name: Messi Waldrop SERVICE DATE: October 17, 2024 ASSESSMENT AND PLAN Principal Problem: Acute psychosis (HCC) (POA: Yes) Assessment AND Plan:following psych poc CHF Vitamin D def Anemia COPD CKD HTN AFIB- on eliquis Resolved Problems: * No resolved hospital problems. * SUBJECTIVE INTERVAL HPI: 69 year old male presented with past medical history of Severe Alcohol Use Disorder, Alcohol Withdrawal, Wernicke's Encephalopathy, Chronic Systolic CHF, Paroxysmal Atrial Fibrillation on eliquis, HTN, COPD, CKD Stage. No chest pain, SOB or palpitations. No N/V/D. No fever, chills or sore throat. No dysuria. No bleeding. OBJECTIVE PHYSICAL EXAM: Blood pressure 138/75, pulse 88, temperature 36.7 ?C (98.1 ?F), resp. rate 18, height 175.3 cm (5' 9), weight 75.2 kg (165 lb 11.2 oz), SpO2 98%., Body mass index is 24.47 kg/m?. LUNGS: Lungs clear to auscultation. Good diaphragmatic excursion. CARDIAC: normal S1 and S2; no rubs, murmurs, or gallops ABDOMEN: Abdomen soft, non-tender. BS normal. No masses or organomegaly. MEDICATION: Current Facility-Administered Medications Medication Dose Route Frequency hydrOXYzine HCl 25 mg tab(s) (ATARAX) 25 mg ORAL q 4 H PRN benztropine 0.5 mg tab(s) (COGENTIN) 0.5 mg ORAL q 4 H PRN haloperidol 0.5 mg tab(s) (HALDOL) 0.5 mg ORAL q 4 H PRN Or haloperidol lactate 0.5 mg short-acting injection (HALDOL) 0.5 mg INTRAMUSCULAR q 4 H PRN magnesium hydroxide 400 mg/5 mL 30 mL (MOM) 30 mL ORAL DAILY PRN diphenhydrAMINE 50 mg injection (BENADRYL) 50 mg INTRAMUSCULAR q 30 MIN PRN nicotine polacrilex 2 mg gum (NICORETTE) 2 mg ORAL q 2 H PRN apixaban 5 mg tab(s) (ELIQUIS) 5 mg ORAL BID metoprolol succinate ER 50 mg tab(s) (TOPROL XL) 50 mg ORAL DAILY sertraline 50 mg tab(s) (ZOLOFT) 50 mg ORAL DAILY naltrexone 50 mg tab(s) 50 mg ORAL DAILY cholecalciferol 2,000 Units tab(s) (VITAMIN D3) 2,000 Units ORAL DAILY melatonin 6 mg tab(s) 6 mg ORAL AT BEDTIME thiamine 100 mg tab(s) (VITAMIN B1) 100 mg ORAL/FEEDING TUBE TID zinc sulfate 220 mg capsule(s) 220 mg ORAL DAILY OLANZapine 5 mg tab(s) (ZYPREXA) 5 mg ORAL AT BEDTIME OLANZapine 2.5 mg tab(s) (ZYPREXA) 2.5 mg ORAL DAILY gabapentin 100 mg cap(s) (NEURONTIN) 100 mg ORAL q 6 H PRN nicotine 21 mg/24 hr 1 Patch (NICODERM) 1 Patch TRANSDERMAL DAILY And nicotine -- REMOVE patch OTHER DAILY And nicotine - verify patch OTHER q 8 H benzocaine-menthol 1 Lozenge (CEPACOL) 1 Lozenge MUCOUS MEMBRANE (TOPICAL MOUTH AND THROAT) q 2 H PRN acetaminophen 650 mg tab(s) (TYLENOL) 650 mg ORAL q 6 H PRN divalproex ER 1,000 mg tab(s) (DEPAKOTE ER) 1,000 mg ORAL DAILY traZODone 25 mg tab(s) (DESYREL) 25 mg ORAL AT BEDTIME PRN URINE OUTPUT: Intake/Output Summary (Last 24 hours) at 10/17/2024 0962 Last data filed at 10/17/2024 0829 Gross per 24 hour Intake 600 ml Output -- Net 600 ml LABORATORY: CBC, Coags, BMP, Mg, Phos TSH Date Value Ref Range Status 10/11/2024 3.880 0.270 - 4.200 mIU/L Final Plan of care discussed with patient and staff. I spent a total of 40 minutes on the date of the service which included preparing to see the patient, [id number] patient care, completing clinical documentation, obtaining and/or reviewing separately obtained history, performing a medically appropriate examination, counseling and educating the patient/family/caregiver, ordering medications, tests, or procedures, communicating with other HCPs (not separately reported), independently interpreting results (not separately reported), communicating results to the patient/family/caregiver, and care coordination (not separately reported). SIGNATURE: Mary Jo Byrd MD DATE: October 17, 2024 [facility] 10-16-2024 Note HNO ID: [id number] Author: MARY WEBB MD Service: Behavioral Health Author Type: Physician Type: Progress Notes Filed: 10/17/2024 12:28 Note Text: [facility] - Psych Progress Note MESSI WALDROP : 1955 AGE: 69 SEX: M CSN: [id number] [facility]: [facility] LOCATION: [facility] [place] [facility] ATTENDING PHYSICIAN: GREG WEBB DATE OF SERVICE: 10/16/2024 TIME OF SERVICE: 10:30 AM The patient is a 69-year-old male with extensive history of alcohol use disorder in the past, also has history of anxiety and depression, was admitted initially to [facility] with intoxication and atrial fibrillation and treated in ICU and medical floor where he was exhibiting grossly disorganized behavior. He was very confused, totally disoriented, confabulating and obviously had a Korsakoff's psychosis, was transferred here to [facility] for further assessment and management. The patient was initially rather intrusive, very sexually inappropriate. However, he appears to have settled down. He is more low keyed, staying in his room. Denies any suicidal or homicidal ideations. Oriented to 1 or 2, has no insight, repetitive and also has been involved in some confabulation during his conversation. By and large compliant with his medication and redirectable. The patient's progress, discharge planning, and followup care were reviewed with the members of the treatment team. The patient's chart including lab work, vital signs, and other details were reviewed. We will plan on transferring to an extended care facility. The patient appears to be responding to current combination of medications, as soon as all the necessary arrangements are completed, he will be transferred there. No current facility-administered medications on file prior to encounter. Current Outpatient Medications on File Prior to Encounter Medication Sig apixaban (ELIQUIS) 5 mg tab(s) Take 1 tablet by mouth two times a day. cholecalciferol (VITAMIN D3) 1,000 unit tab tablet Take 2 tablets by mouth once daily. diphenhydrAMINE (BENADRYL) 50 mg/mL injection Inject 50 mg intramuscularly once daily as needed (Third line Agitation). divalproex DR (DEPAKOTE) 250 mg EC tablet Take 1 tablet by mouth daily at bedtime. melatonin 3 mg tablet Take 2 tablets by mouth daily at bedtime. metoprolol succinate ER (TOPROL XL) 50 mg 24 hr tablet Take 1 tablet by mouth once daily. naltrexone 50 mg tablet Take 1 tablet by mouth once daily. nicotine polacrilex (NICORETTE) 2 mg gum Take 1 Each by mouth every 2 hours as needed. sertraline (ZOLOFT) 50 mg tablet Take 1 tablet by mouth once daily. thiamine (VITAMIN B1) 100 mg tablet 1 tablet by ORAL/FEEDING TUBE route three times a day. zinc sulfate 220 mg (50 mg zinc) capsule Take 1 capsule by mouth once daily for [address] (DEPAKOTE) 125 mg EC tablet Take 1 tablet by mouth two times a day. Meanwhile, I will continue with current combination medication including Depakote, Neurontin p.r.n. along with Zoloft and Zyprexa. Greg Webb M.D. Psychiatry :[id number] /[id number] [facility] 10-15-2024 Note HNO ID: [id number] Author: JANINE DUNN APRN.CNP Service: Behavioral Health Author Type: Nurse Practitioner Type: Progress Notes Filed: 10/15/2024 15:24 Note Text: BEHAVIORAL HEALTH PROGRESS NOTE Patient Name: Messi Waldrop SERVICE DATE: 10/15/2024 SERVICE TIME: 3:12 PM SUBJECTIVE: Patient seen, chart reviewed, spoke with staff. This is a 69 year old male with history of alcohol use disorder with resultant Korsakoff syndrome/neurocognitive disorder. He was admitted from [facility] medical unit where he was initially brought in by brother after stating her wanted to drink himself to . He was admitted with Afib/CHF. He was highly agitated and disorganized and therefore was transferred to [facility] for further eval and treatment once medically stabilized. Pt appears to be settling down. No reported or noted sexually inappropriate comments. He has been more visible on unit (with encouragement) and has attended some group activities. Thought processes are clearer and speech is more appropriate as well. However, pt continues to lack insight on his condition and remains discharge focused. Compliant with meds and care. No SI. Condition: improving Medical Problems: PAST MEDICAL HISTORY Diagnosis Date Cancer (HCC) Surgical Problems: No past surgical history on file. Adverse effects to medications: No PRN'S given: Yes Sleep: good Appetite: good PHYSICAL EXAM: BP 134/85 Pulse 74 Temp 36.7 ?C (98.1 ?F) (Oral) Resp 19 Ht 175.3 cm (5' 9) Wt 75.2 kg (165 lb 11.2 oz) SpO2 97% BMI 24.47 kg/m? Mental Status: Orientation: Person, Place, and Date Appearance/Personal Hygiene: Disheveled Eye Contact: Direct Psychomotor Activity: wnl Speech: appropriate Mood/Affect: Euthymic Thought Process: Coherent Thought Content: Coherent Perception: Patient Denies, None Noted Suicidal Ideation/Intentions: No Homicidal Ideation/Intentions: No Insight: Impaired Judgement: impaired Intelligence: Average Memory/Cognition: Mildly Impaired Tremors: No Gait: Normal MEDICATIONS: Current Facility-Administered Medications Medication Dose Route Frequency hydrOXYzine HCl 25 mg tab(s) (ATARAX) 25 mg ORAL q 4 H PRN benztropine 0.5 mg tab(s) (COGENTIN) 0.5 mg ORAL q 4 H PRN haloperidol 0.5 mg tab(s) (HALDOL) 0.5 mg ORAL q 4 H PRN Or haloperidol lactate 0.5 mg short-acting injection (HALDOL) 0.5 mg INTRAMUSCULAR q 4 H PRN magnesium hydroxide 400 mg/5 mL 30 mL (MOM) 30 mL ORAL DAILY PRN diphenhydrAMINE 50 mg injection (BENADRYL) 50 mg INTRAMUSCULAR q 30 MIN PRN nicotine polacrilex 2 mg gum (NICORETTE) 2 mg ORAL q 2 H PRN apixaban 5 mg tab(s) (ELIQUIS) 5 mg ORAL BID metoprolol succinate ER 50 mg tab(s) (TOPROL XL) 50 mg ORAL DAILY sertraline 50 mg tab(s) (ZOLOFT) 50 mg ORAL DAILY naltrexone 50 mg tab(s) 50 mg ORAL DAILY cholecalciferol 2,000 Units tab(s) (VITAMIN D3) 2,000 Units ORAL DAILY melatonin 6 mg tab(s) 6 mg ORAL AT BEDTIME thiamine 100 mg tab(s) (VITAMIN B1) 100 mg ORAL/FEEDING TUBE TID zinc sulfate 220 mg capsule(s) 220 mg ORAL DAILY OLANZapine 5 mg tab(s) (ZYPREXA) 5 mg ORAL AT BEDTIME OLANZapine 2.5 mg tab(s) (ZYPREXA) 2.5 mg ORAL DAILY gabapentin 100 mg cap(s) (NEURONTIN) 100 mg ORAL q 6 H PRN nicotine 21 mg/24 hr 1 Patch (NICODERM) 1 Patch TRANSDERMAL DAILY And nicotine -- REMOVE patch OTHER DAILY And nicotine - verify patch OTHER q 8 H benzocaine-menthol 1 Lozenge (CEPACOL) 1 Lozenge MUCOUS MEMBRANE (TOPICAL MOUTH AND THROAT) q 2 H PRN acetaminophen 650 mg tab(s) (TYLENOL) 650 mg ORAL q 6 H PRN divalproex ER 1,000 mg tab(s) (DEPAKOTE ER) 1,000 mg ORAL DAILY DATA: Diagnostic tests reviewed for today's visit: Most recent labs ASSESSMENT AND PLAN: Principal Problem: 1. Major neurocognitive disorder due to alcohol use disorder. 2. Wernicke Korsakoff's syndrome. 3. Alcohol use disorder. Assessment AND Plan: Showing improvement. Continue with same treatment and monitor. Risk Assessment Suicide: low Homicide: low Deliberate Self-Harm: low Aggression: low IInterventions Biological: continue same medications. Check: VS per protocol Precautions: standard Psychological: group therapy and millieu therapy Social: Explore home situation DISCHARGE PLANNING: discharge once placement determined Length Of Session: I spent a total of 35 to 40 minutes on date of service which included preparing to see the patient, [id number] patient care, performing medically appropriate exam, clinical documentation, and discussion with the multidisciplinary team for care coordination. SIGNATURE: Janine Dunn APRN.CNP DATE: October 15, 2024 TIME: 3:12 PM [facility] 10-15-2024 Note HNO ID: [id number] Author: RINA DAILEY APRN.CNP Service: ? Author Type: Nurse Practitioner Type: Progress Notes Filed: 10/25/2024 12:17 Note Text: INTERNAL MEDICINE PROGRESS NOTE Name: Messi Waldrop SERVICE DATE: October 15, 2024 ASSESSMENT AND PLAN Principal Problem: Acute psychosis (HCC) (POA: Yes) Assessment AND Plan:following psych poc CHF Vitamin D def Anemia COPD CKD HTN AFIB- on eliquis Resolved Problems: * No resolved hospital problems. * SUBJECTIVE INTERVAL HPI: 69 year old male presented with past medical history of Severe Alcohol Use Disorder, Alcohol Withdrawal, Wernicke's Encephalopathy, Chronic Systolic CHF, Paroxysmal Atrial Fibrillation on eliquis, HTN, COPD, CKD Stage. No chest pain, SOB or palpitations. No N/V/D. No fever, chills or sore throat. No dysuria. No bleeding. OBJECTIVE PHYSICAL EXAM: Blood pressure 134/85, pulse 74, temperature 36.7 ?C (98.1 ?F), temperature source Oral, resp. rate 19, height 175.3 cm (5' 9), weight 75.2 kg (165 lb 11.2 oz), SpO2 97%., Body mass index is 24.47 kg/m?. GENERAL: No acute distress. LUNGS: Lungs clear to auscultation. Good diaphragmatic excursion. CARDIAC: normal S1 and S2; no rubs, murmurs, or gallops ABDOMEN: Abdomen soft, non-tender. BS normal. No masses or organomegaly. EXTREMITIES: No deformities, edema, clubbing or skin discoloration. NEURO: Alert, oriented to person, place, and time. MEDICATION: Current Facility-Administered Medications Medication Dose Route Frequency hydrOXYzine HCl 25 mg tab(s) (ATARAX) 25 mg ORAL q 4 H PRN benztropine 0.5 mg tab(s) (COGENTIN) 0.5 mg ORAL q 4 H PRN haloperidol 0.5 mg tab(s) (HALDOL) 0.5 mg ORAL q 4 H PRN Or haloperidol lactate 0.5 mg short-acting injection (HALDOL) 0.5 mg INTRAMUSCULAR q 4 H PRN magnesium hydroxide 400 mg/5 mL 30 mL (MOM) 30 mL ORAL DAILY PRN diphenhydrAMINE 50 mg injection (BENADRYL) 50 mg INTRAMUSCULAR q 30 MIN PRN nicotine polacrilex 2 mg gum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 no active hospital problems to display for this patient. Criteria for Discharge: Elimination/reduction of presenting behavior: alcohol intoxication,not taking medication,Confusion,escape risk,inappropriate behavior touching females and agitation Estimated length of stay: 2 weels Interdisciplinary Treatment Plan Date Initiated: 10/11/24 Time Initiated: 351 Patient Participation in Initial Treatment Plan: No Patient unable to participate due to : Mental status Other Participants: N/A Strengths/Assets: Stable living situation, Social support Limitations: Physically dependent on others, Not adherent with treatment, Difficulty with comprehension/understanding information, Cognitive impairment Precautions indicated: Escape, Routine Precautions Individualized problems: Cognitive impairment Problem - Discharge Needs Date Initiated: 10/11/24 Time Initiated: 353 Discharge Needs: Patient/Family will participate in the development of the Discharge Aftercare Plan, Resolve acute symptoms through medication management, Assess for appropriate level of care, Link/relink to community supports, Encourage patient to utilize appropriate coping skills, Encourage patient to maintain sobriety or explore ambivalence re: sobriety, Patient has identified at least one support person to contact in the event of relapse Interventions - Nursing: Obtain baseline level of functioning on admission, Administer medications as indicated and monitor patient for effect daily, Provide education to the patient and/or family about the disease process and management as appropriate daily and as needed, Provide non-judgmental supportive, empathetic and comprehensive trauma informed care daily and as needed, Use therapeutic communication skills to develop patient trust and a nurse-patient relationship daily and as needed, Assess for signs of escalating emotions and help identify ways to appropriately express feelings as needed, Assist with developing positive coping behaviors daily and as needed, Assess for escalating behavior and utilize de-escalation skills as needed, Encourage independence with daily functioning daily and as needed, Encourage patient participation in milieu activities daily and as needed, Provide a quiet, restful environment to promote sleep/rest daily and as needed, Monitor nutritional intake daily, Assist with activities of daily living, utilizing any necessary assistive devices daily and as needed Problem - Cognitive Impairment As evidenced by: Agitation/Aggression, Anxiety, Confusion, Decline in activities of daily living, Disorganized thinking, Disorientation, Poor impulse control, Poor short-term recall Disorientation: place, time Date Intiated: 10/11/24 Time Initiated: 355 Short Term Goals: Patient will demonstrate decrease in anxiety, Patient will demonstrate decrease in agitation/aggression, Patient will comply with medication and treatment, Patient will demonstrate sleeping this number of hours per night, Patient will participate in toilet procedures every 2 hours, Patient will maintain adequate intake and output, Patient will not harm self, Patient will not harm others or destroy property, Patient will participate in activities of daily living as able Goal hours of sleep: 7 Target Date Short Term Goals: 10/18/24 Mcfp Goals: Patient will have improved insight into illness, Patient will have achieved optimal level of functioning, Patient will verbalize benefits of compliance with medication and treatment after discharge, Patient will participate in cognitive, physical and social activities, Patient will display nonviolent behavior towards others, with aid of medication and supportive therapy Target Date Highway Painter Helper Goals: 10/21/24 Interventions - Nursing: Offer frequent toileting as needed, Reorient the patient as needed, Obtain info regarding pre-existing stressors and calming methods/influences on admission, Obtain baseline level of functioning on admission, Administer medications as indicated and monitor patient for effect daily, Provide education to the patient and/or family about the disease process and management as appropriate daily and as needed, Use therapeutic communication skills to develop patient trust and a nurse-patient relationship daily and as needed, Provide non-judgmental supportive, empathetic and comprehensive trauma informed care daily and as needed, Assess for signs of escalating emotions and help identify ways to appropriately express feelings as needed, Assist with developing positive coping behaviors daily and as needed, Assess for escalating behavior and utilize de-esc (more content not included)... [facility] 10-11-2024 Note HNO ID: [id number] Author: NOTE, INTERFACE, ? Service: ? Author Type: ? Type: Progress Notes Filed: 10/11/2024 02:31 Note Text: Epic Scheduled Downtime: 10/11/2024 1:00:00 AM to 10/11/2024 2:11:00 AM [facility] 10-11-2024 Note HNO ID: [id number] Author: NOTE, INTERFACE, ? Service: ? Author Type: ? Type: Progress Notes Filed: 10/11/2024 02:32 Note Text: Epic Scheduled Downtime: 10/11/2024 1:00:00 AM to 10/11/2024 2:11:00 AM [facility] 10-10-2024 Note HNO ID: [id number] Author: MUKUND WASSERMAN RN Service: Nursing Author Type: Registered Nurse Type: Nursing Progress Note Filed: 10/10/2024 20:18 Note Text: Nurse to nurse report completed with Eugenio at [facility] [phone] [facility] 10-09-2024 Note [facility] 10-08-2024 Note Formatting of this n ote is different from the original. BEHAVIORAL HEALTH INTAKE NOTE SERVICE DATE: 10/08/2024 SERVICE TIME: 6:29 PM Nature of the crisis: Memory impairment; impulsivity; inappropriate behaviors Presenting Problem: Messi Waldrop is a 69 year old male referred by [facility] for impatent psychiatric admission. Messi Waldrop is a 69 year old male referred by [facility] for Wernicke encephalopathy. PT has a history of COPD, hypertension, hyperlipidemia, chronic A-fib (off anticoagulation), HFrEF (EF 15-20%), Wernicke encephalopathy, severe alcohol use disorder, alcohol withdrawal syndrome, and CKD presented with acute alcohol intoxication. He was brought in by EMS on 09/20/2024 to the [facility] ED after his brother reported that he had been drinking all day and expressed a desire to drink himself to . Labs showed BUN 24, creatinine 1.32 (baseline 1.3-1.4), potassium 4.9, mild anemia (Hgb 10.4), and an anion gap of 19. This expert medical writer spoke with Rivera DE LEON current nurse on 10/08/2024. Nurse states that PT is very confused and is A&O x1. They also report that PT sometimes pees on the floor, and he continues to be a flight risk and inappropriate with female workers. This expert medical writer also let the nurse know that PT will not be transferred out of the unit tonight. Per Dr. Danna Cadena psychology consult note on 10/08/2024 Mr. Waldrop continues to demonstrate variable mental status. At this time, he was confused and demonstrated poor understanding of his medical condition and need to take medications to manage his health; poor appreciation of the amount of alcohol he was consuming, of the effects of his alcohol use, of his current impaired memory and ability to function; a lack of judgement and reasoning. At this time Mr. Waldrop lacks capacity to make medical decisions for himself. She also states Review of EHR and discussion with staff reveals that his mental status has continued to improve over the course of his admission. With additional extended time, his mental status may continue to improve enough that he can benefit from residential alcohol use treatment, however, memory care/locked unit appropriate now Per Felipe Tapia APRN.FOUNDER PRESIDENT AND CEO consult note on 10/08/2024 Patient with increasing Impulsivity, inappropriate behavior, who continues to be a safety risk to self and others with increased risk for elopement despite medication interventions. 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 Patient requires stabilization prior to transfer to [facility](process is underway). Patient has been deemed to lack competency and emergency guardianship is also underway. Per CAR Holt on 10/06/2024 CMSW faxed and followed up on 20+ SNF referrals; no SNF facility has accepted. CMSW called and spoke to [facility] for alcohol treatment facilities; CMSW reached out to [facility] who state that they are unable to accept the patient due to being too high acuity; [facility] is unable to accept due to not being in network with the patient's insurance. SOCIAL HISTORY: Social History Tobacco Use Smoking status: Former Types: Cigarettes Smokeless tobacco: Current Vaping Use Vaping status: Never Used Substance Use Topics Alcohol use: Not Currently Comment: quit 2 weeks ago. but was getting drunk two times a week Drug use: Not Currently MEDICATIONS: No prescriptions on file. No medication comments found. 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 Stressors: Legal, Family Family Issues: 6 years ago Legal History: Arrests, Convictions, Incarcerations, Probation Legal Details: July 2024 - Disorderly Conduct, open case, has arraignment 10/14/24 1:00pm; 2023- Disorderly Conduct; 2022- DWI; 2022- Disorderly Conduct How Legal Issues Were Verified: [facility] [employer] Website, [facility] Sexual Offender Website, Other: See Comment ([facility] [employer] Criminal Search) Gender Specific Test: Not Applicable Sex at Time of : Male Patient Identified Gender: Male Preferred Pronoun: He/Him/His Cultural/Hoahaoism Concerns Hoahaoism/Spiritual Issues or Concerns That Might Affect Treatment: Mormonism per chart review OBSERVATIONS Level of Consciousness Alert: Yes Orientation: Person, Time (this and all other aspects of the mental status exam below are per Dr. Cadena's 10/07/24 psych consult & Felipe Tapia APRN.CNP's 10/08/24 psych consult) Physical Appearance Appears: Other: See Comment (wearing hospital gown) Speech Rate: Appropriate Volume: Appropriate Quality: Clear, Nonsensical Quantity: Appropriate Thought Processes Thought: Poor Historian/Appointment Scheduler Thought Content/Perceptions Delusions: None Observed Hallucinations: Patient Denies, None Evident Memory: Impaired Cognition Impairment: Memory, Orientation Mood & Affect Range of Affect: Labile Non-Suicidal Self Injury Non-Suicidal Self Injury: None, Patient Denies Suicidal Ideation Suicidal Ideation: None, Patient Denies Homicidal Ideation Homicidal Ideation: None, Patient Denies Non-Lethal Harm to Others or Damage/Destruction to Property Harm to Others or Damage/Destruction of Property: Current, Past Behavior: Means Current Means: Verbal aggression, his own body strength, whatever is available to him in the hospital Risk Level: Moderate Description of Risk: Agitated, verbally aggressive, sexually inappropriately on the medical floor, requiring security and PRN meds, did not require restraints; per psych consults they recommend patient have male caregivers when possible; Per Dr. Nieves s note 10/08/24, Patient is making sexual advances 24 all the females that come in contact with him and has run down the staircase 3 times before he could be stopped he is a danger to himself and or others. I have signed guardianship medical form and Dr. Cadena is handling that but I discussed with [facility] presently for him to be admitted to a locked unit before one of the staff is hurt by his advances or the slips and falls in over the rail when he tries to run down the steps which would be a significant fall from a third floor Past History: Hx of arrests for disorderly conduct as recently as July [address] month History of Impulsive Behaviors History: Poor impulse control, disorientation, sexually inappropraite behaviors, agitation all while on the medical floor Medical Conditions Medical Conditions Increasing Risks: Cognitive Impairment CHEMICAL DEPENDENCY Substance Use: Yes Referral for Substance Abuse Services: No Chemical Dependency Inpatient/Residential Treatment History: [facility] Detox Unit 06/2024 Toxicology Screen Results: Positive Positive Result: Alcohol (BAL on 09/20/24 was 294, UDS only + for Ethanol) Substances Used: Alcohol ACTIVITY Activities of Daily Living: Independent Mobility: No Assistance Person Providing Information: [place] [facility] MERLENE Griffin Continence: Continent (has urinated on the floor possibly intentionally) MENTAL HEALTH SERVICES: Current Mental Health Providers: None (per psych consult) Agency/Organization: N/A Phone Number: N/A Inpatient Mental Health Treatment History: None (per psych consult) INTERVENTIONS Psychiatry Consult Completed in This Episode of Care: Yes Psych Consult Date: 09/22/24 Psych Consult Time: 105 Location: Medical Floor Provider Name: Felipe Tapia APRN.CNP Sources of Information: [facility], Inpatient Medical Staff, Prior Referrals Patient Assessed by Intake via: Other: See Comment (assessed face to face on the medical floor by consult liaison psychiatry team) Coordination of care with: Internal Behavioral Health Staff, Other: See Comment (Medical Floor RN) Goals/Objectives: Admission to inpatient psychiatric unit for further evaluation and treatment of symptoms of illness, Admission to inpatient psychiatric unit for safety of patient and others DISPOSITION & PLAN: Patient stated goals: Goals: (unknown, not assessed as pt was seen on psych consult) Coordination of Care with: Internal Behavioral Health Staff, Other: See Comment (Medical Floor RN) Assessment/Impressions: Inpatient Need Plan: Secure an inpatient bed, Consult with Psychiatry on-call, ED Psych consult, or other provider Goals/Objectives: Admission to inpatient psychiatric unit for further evaluation and treatment of symptoms of illness, Admission to inpatient psychiatric unit for safety of patient and others Total time spent (minutes) in Supportive Care for this patient: 15 MEDICAL CLEARANCE Initial Date: 10/08/24 Initial Time: 1526 Reviewed medical history with physician: Yes Reviewed abnormal labs with physician: Yes Discussed case with Dr. Webb who states that Messi Waldrop is a candidate for admission. 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 Webb Admission Status: Full Admit Unit: [address] Bed#: [id number] Report Given To: Kerry BLUNT Report Date: 10/10/24 Report Time: 1325 Admission Type: Medical Certificate Is Patient Less Than 18 Years of Age or have a Guardian/Healthcare Power of Business Analysis Analyst?: No Disposition Date: 10/10/24 Disposition Time: 1512 SIGNATURE: SHAYNA Betancourt Student PATIENT NAME: Messi Waldrop DATE: October 08, 2024 TIME: 6:29 PM [facility] 10-08-2024 Miscellaneous Notes BEHAVIORAL HEALTH INTAKE NOTE SERVICE DATE: 10/08/2024 SERVICE TIME: 6:29 PM Nature of the crisis: Memory impairment; impulsivity; inappropriate behaviors Presenting Problem: Messi Waldrop is a 69 year old male referred by [facility] admission. Messi Waldrop is a 69 year old male referred by [facility] for Wernicke encephalopathy. PT has a history of COPD, hypertension, hyperlipidemia, chronic A-fib (off anticoagulation), HFrEF (EF 15-20%), Wernicke encephalopathy, severe alcohol use disorder, alcohol withdrawal syndrome, and CKD presented with acute alcohol intoxication. He was brought in by EMS on 09/20/2024 to the [place] ED after his brother reported that he had been drinking all day and expressed a desire to drink himself to . Labs showed BUN 24, creatinine 1.32 (baseline 1.3-1.4), potassium 4.9, mild anemia (Hgb 10.4), and an anion gap of 19. This expert medical writer spoke with Rivera DE LEON current nurse on 10/08/2024. Nurse states that PT is very confused and is A&O x1. They also report that PT sometimes pees on the floor, and he continues to be a flight risk and inappropriate with female workers. This expert medical writer also let the nurse know that PT will not be transferred out of the unit tonight. Per Dr. Danna Cadena psychology consult note on 10/08/2024 Mr. Waldrop continues to demonstrate variable mental status. At this time, he was confused and demonstrated poor understanding of his medical condition and need to take medications to manage his health; poor appreciation of the amount of alcohol he was consuming, of the effects of his alcohol use, of his current impaired memory and ability to function; a lack of judgement and reasoning. At this time Mr. Wadlrop lacks capacity to make medical decisions for himself. She also states Review of EHR and discussion with staff reveals that his mental status has continued to improve over the course of his admission. With additional extended time, his mental status may continue to improve enough that he can benefit from residential alcohol use treatment, however, memory care/locked unit appropriate now Per Felipe Tapia APRN.FOUNDER PRESIDENT AND CEO consult note on 10/08/2024 Patient with increasing Impulsivity, inappropriate behavior, who continues to be a safety risk to self and others with increased risk for elopement despite medication interventions. 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 Patient requires stabilization prior to transfer to [facility](process is underway). Patient has been deemed to lack competency and emergency guardianship is also underway. Per CAR Holt on 10/06/2024 CMSW faxed and followed up on 20+ SNF referrals; no SNF facility has accepted. CMSW called and spoke to [facility] for alcohol treatment facilities; CMSW reached out to [facility] who state that they are unable to accept the patient due to being too high acuity; [facility] is unable to accept due to not being in network with the patient's insurance. SOCIAL HISTORY: Social History Tobacco Use Smoking status: Former Types: Cigarettes Smokeless tobacco: Current Vaping Use Vaping status: Never Used Substance Use Topics Alcohol use: Not Currently Comment: quit 2 weeks ago. but was getting drunk two times a week Drug use: Not Currently MEDICATIONS: No prescriptions on file. No medication comments found. 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 Stressors: Legal, Family Family Issues: 6 years ago Legal History: Arrests, Convictions, Incarcerations, Probation Legal Details: July 2024 - Disorderly Conduct, open case, has arraignment 10/14/24 1:00pm; 2023- Disorderly Conduct; 2022- DWI; 2022- Disorderly Conduct How Legal Issues Were Verified: [facility] [employer] Website, [facility] Sexual Offender Website, Other: See Comment ([facility] [employer] Criminal Search) Gender Specific Test: Not Applicable Sex at Time of : Male Patient Identified Gender: Male Preferred Pronoun: He/Him/His Cultural/Hoahaoism Concerns Hoahaoism/Spiritual Issues or Concerns That Might Affect Treatment: Mormonism per chart review OBSERVATIONS Level of Consciousness Alert: Yes Orientation: Person, Time (this and all other aspects of the mental status exam below are per Dr. Cadena's 10/07/24 psych consult & Felipe Tapia APRN.CNP's 10/08/24 psych consult) Physical Appearance Appears: Other: See Comment (wearing hospital gown) Speech Rate: Appropriate Volume: Appropriate Quality: Clear, Nonsensical Quantity: Appropriate Thought Processes Thought: Poor Historian/Appointment Scheduler Thought Content/Perceptions Delusions: None Observed Hallucinations: Patient Denies, None Evident Memory: Impaired Cognition Impairment: Memory, Orientation Mood & Affect Range of Affect: Labile Non-Suicidal Self Injury Non-Suicidal Self Injury: None, Patient Denies Suicidal Ideation Suicidal Ideation: None, Patient Denies Homicidal Ideation Homicidal Ideation: None, Patient Denies Non-Lethal Harm to Others or Damage/Destruction to Property Harm to Others or Damage/Destruction of Property: Current, Past Behavior: Means Current Means: Verbal aggression, his own body strength, whatever is available to him in the hospital Risk Level: Moderate Description of Risk: Agitated, verbally aggressive, sexually inappropriately on the medical floor, requiring security and PRN meds, did not require restraints; per psych consults they recommend patient have male caregivers when possible; Per Dr. Nieves s note 10/08/24, Patient is making sexual advances 24 all the females that come in contact with him and has run down the staircase 3 times before he could be stopped he is a danger to himself and or others. I have signed guardianship medical form and Dr. Cadena is handling that but I discussed with [facility] presently for him to be admitted to a locked unit before one of the staff is hurt by his advances or the slips and falls in over the rail when he tries to run down the steps which would be a significant fall from a third floor Past History: Hx of arrests for disorderly conduct as recently as July [address] month History of Impulsive Behaviors History: Poor impulse control, disorientation, sexually inappropraite behaviors, agitation all while on the medical floor Medical Conditions Medical Conditions Increasing Risks: Cognitive Impairment CHEMICAL DEPENDENCY Substance Use: Yes Referral for Substance Abuse Services: No Chemical Dependency Inpatient/Residential Treatment History: [facility] Detox Unit 06/2024 Toxicology Screen Results: Positive Positive Result: Alcohol (BAL on 09/20/24 was 294, UDS only + for Ethanol) Substances Used: Alcohol ACTIVITY Activities of Daily Living: Independent Mobility: No Assistance Person Providing Information: [facility] 3S RN Gaby Continence: Continent (has urinated on the floor possibly intentionally) MENTAL HEALTH SERVICES: Current Mental Health Providers: None (per psych consult) Agency/Organization: N/A Phone Number: N/A Inpatient Mental Health Treatment History: None (per psych consult) INTERVENTIONS Psychiatry Consult Completed in This Episode of Care: Yes Psych Consult Date: 09/22/24 Psych Consult Time: 1054 Location: Medical Floor Provider Name: Felipe Tapia APRN.CNP Sources of Information: [facility], Inpatient Medical Staff, Prior Referrals Patient Assessed by Intake via: Other: See Comment (assessed face to face on the medical floor by consult liaison psychiatry team) Coordination of care with: Internal Behavioral Health Staff, Other: See Comment (Medical Floor RN) Goals/Objectives: Admission to inpatient psychiatric unit for further evaluation and treatment of symptoms of illness, Admission to inpatient psychiatric unit for safety of patient and others DISPOSITION & PLAN: Patient stated goals: Goals: (unknown, not assessed as pt was seen on psych consult) Coordination of Care with: Internal Behavioral Health Staff, Other: See Comment (Medical Floor RN) Assessment/Impressions: Inpatient Need Plan: Secure an inpatient bed, Consult with Psychiatry on-call, ED Psych consult, or other provider Goals/Objectives: Admission to inpatient psychiatric unit for further evaluation and treatment of symptoms of illness, Admission to inpatient psychiatric unit for safety of patient and others Total time spent (minutes) in Supportive Care for this patient: 15 MEDICAL CLEARANCE Initial Date: 10/08/24 Initial Time: 1526 Reviewed medical history with physician: Yes Reviewed abnormal labs with physician: Yes Discussed case with Dr. Webb who states that Messi Waldrop is a candidate for admission. 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 Webb Admission Status: Full Admit Unit: [address] Bed#: [id number] Report Given To: Kerry BLUNT Report Date: 10/10/24 Report Time: 1325 Admission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 Patient/family/caregiver demonstrates understanding of disease process, treatment plan, medications, and discharge instructions 07/13/2024 06 by Concepcion Priest RN Outcome: Progressing 07/13/202454 by Concepcion Priest RN Outcome: Progressing Problem: Potential for Falls Goal: I will remain free of falls 07/13/2024604 by Concepcion Priest RN Outcome: Progressing 07/13/202454 by Concepcion Priest RN Outcome: Progressing Problem: Discharge Barriers Goal: My discharge needs are met 07/13/2024604 by Concepcion Priest RN Outcome: Progressing 07/13/2024 005 by Concepcion Priest RN Outcome: Progressing Problem: Anxiety Goal: Patient/family understands admission protocols 07/13/2024604 by Concepcion Priest RN Outcome: Progressing 07/13/202454 by Concepcion Priest RN Outcome: Progressing Goal: Attempts to manage anxiety with help 07/13/2024 06 by Concepcion Priest RN Outcome: Progressing 07/13/202454 by Concepcion Priest RN Outcome: Progressing Goal: Verbalizes ways to manage anxiety 07/13/2024604 by Concepcion Priest RN Outcome: Progressing 07/13/2024 0055 by Concepcion Priest RN Outcome: Progressing Goal: Implements measures to reduce anxiety 07/13/2024 06 by Concepcion Priest RN Outcome: Progressing 07/13/2024 005 by Concepcion Priest RN Outcome: Progressing Goal: Free from restraint events 07/13/2024 06 by Concepcion Priest RN Outcome: Progressing 07/13/2024 005 by Concepcion Priest RN Outcome: Progressing Problem: Knowledge Deficit Goal: Patient/family/caregiver demonstrates understanding of disease process, treatment plan, medications, and discharge instructions Outcome: Progressing Problem: Potential for Compromised Skin Integrity Goal: Skin Integrity is Maintained or Improved Outcome: Progressing Goal: Nutritional status is improving Outcome: Progressing Problem: Urinary Incontinence Goal: Perineal skin integrity is maintained or improved Outcome: Progressing Problem: Knowledge Deficit Goal: Patient/family/caregiver demonstrates understanding of disease process, treatment plan, medications, and discharge instructions Outcome: Progressing Problem: Potential for Falls Goal: I will remain free of falls Outcome: Progressing Problem: Discharge Barriers Goal: My discharge needs are met Outcome: Progressing Problem: Anxiety Goal: Patient/family understands admission protocols Outcome: Progressing Goal: Attempts to manage anxiety with help Outcome: Progressing Goal: Verbalizes ways to manage anxiety Outcome: Progressing Goal: Implements measures to reduce anxiety Outcome: Progressing Goal: Free from restraint events Outcome: Progressing documented in this encounter [facility] 07-15-2024 Nurse Note Patient received in room asleep at shift change and all safety measures in place. Patient compliant with all medications Q-shift. Patient attended groups. Patient discharged at 1355. Patient received all belongings. Patient signed all paper work. Patient left unit at 1355. Patient denies S.I.,H.I., AH/VH/TH Patient had IV discontinued at 1015. Pt urinated in his bed. Also, pt made a sexually inappropriate comment towards this RN. Pt given Tylenol for back pain. Pt reporting that just melatonin is ineffective for sleep assistance and would like more sleep medications - Dr Barrett messaged. Pts forehead cleansed with NS, bacitracin applied and redressed. Pt continually needing this RN's attention. Patient is A and O x 4. Pt is compliant with medications. Pt denies SI/HI/AVH at this time. Pt reports their appetite is good. Pt is up and steady. Patient received in room asleep at shift change and all safety measures in place. Patient compliant with all medications Q-shift. Dressing to forehead changed as per orders. Patient denies S.I.H.I. AH/TH/VH Q-shift. Patient was inappropriate with undersigned, asking Have you ever been Kissed? Educated that patient must be appropriate with staff. Patient eating and drinking well. Patient came out of room to Nursing desk at 1700 and asked for sleeping medications. Patient did not know it was PM not AM. Patient seen by chief of internal medicine, Dietiican call undersigned to say patient was inappropriate, asking for something to make his penis bigger. Patient came to ask at same time was taking phone call to say that he would punch anyone who gave undersigned a hard time. Patient CIWA 2 at 1200 and 2 at 1200. Continue to monitor patient. Pt alert and oriented, med compliant, pt denies SI/HI/AVH, NV&D. Pt pleasant and cooperative appears to be forgetful at times, but answers all orientation questions correctly. Pts forehead laceration cleansed with saline and bacitracin applied and new gauze covering sutures with tape. Pt up and steady and walking in the hazel. Pt encouraged to update staff with any change in condition. Will monitor pt for safety. Patient has been more awake this afternoon. He has been out in the day room a few times and social to peers and staff. Patient is alert and oriented x4 now. Earlier this morning when being awoken a few times for medications he did appear disoriented to situation. Asking why he was here on the detox unit and why he was still in the hospital. Patient this morning did need educated on his admission and why he was here. As the day went on he was more oriented on why he was on the detox floor. He has been med compliant. Denies SI/HI/AVH at this time. He is up independently with a steady gait. He has been friendly, cooperative, and social. He has had a good appetite today and drinking well. Will continue to monitor, safety maintained. Former smoker Patient stated he was drinking approximately a 6 pack of beer and some liquor roughly 3 - 4 days per week. Last use 07/10. Skin check done. Rules explained. Forms signed. Albuterol inhaler given for wheezing. Pt up and steady. Pt denies SI/HI/AVH at this time. Pt reports a decreased appetite recently. Pt IV is clean, dry and intact. Patient educated on the policy regarding belongings on 4E. Reviewed patient belongings with patient and security at bedside, with patient consent. Security zip-tied patient belongings. Report given to 4N receiving nurse. Pt prepared for transfer, awaiting transport. documented in this encounter [facility] 07-15-2024 Note Formatting of this n ote might be different from the original. [facility] saw patient to discuss aftercare plans and treatment post discharge. Patient was reminded about appointments. Patient is declining any aftercare at current time. Patient denied current SI/HI/AVH. Patient's brother potentially picking up patient from the unit as his son is in [place] and his niece is unable to pick him up at current time. [facility] will continue to follow. Patient denied needing anything further from [facility] at the time. [facility] informed patient's nurse about conversation. [facility] 07-15-2024 Note Formatting of this n ote might be different from the original. [facility] saw patient to discuss aftercare plans and treatment post discharge. Patient was reminded about appointments. Patient is declining any aftercare at current time. Patient denied current SI/HI/AVH. Patient's brother potentially picking up patient from the unit as his son is in [place] and his niece is unable to pick him up at current time. [facility] will continue to follow. Patient denied needing anything further from [facility] at the time. ISADORA informed patient's nurse about conversation. [facility] 07-15-2024 Note Attestation signed by Rolando Corbett MD at 07/15/2024 2:54 PM I saw the patient on the day of discharge and agree with the discharge plans and disposition as recorded by the resident. I personally spent over 30 minutes in the discharge planning process. 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 However, he was A/O x 3, and able to contract for his own safety. Vitals were wnl at discharge and he clinically did not exhibit any more acute alcohol withdrawal. He declined formal alcohol treatment after discharge. Rolando Corbett MD ADDICTION MEDICINE 4E DETOX UNIT DISCHARGE SUMMARY __ Patient N LUCIE Max November [id number] 1955 Admit Date Discharge Date 07/11/2024 07/15/2024 Primary Care Physician John Springer MD Admitting Physician Junior Jaramillo MD Consultants None. Reason for Admission Patient was admitted to medical floor for acute kidney injury. Patient was medically cleared for transfer to the detox unit. Please refer to consult note 07/12/2024 for detailed H&P by Dr. Wong. When approached, patient was lying in bed, endorse symptoms of withdrawal including diaphoresis. Overall, withdrawal symptoms are improving. No other physical complaints voiced. Patient is tolerating meals and fluids. Positive signs and/or symptoms of withdrawal observed. No overt events overnight documented. Dr. Wong's initial note: Messi Waldrop is a 69 y.o. year old male with a history of alcohol use disorder Patient was seen earlier this year for an admission that required alcohol detox however after discharge she resumed drinking right away He drinks was equivalent to 12 of the 12 ounce beers daily Patient is a his last drink was 3 days ago Patient denies any history withdrawal seizures Denies any history of DTs Denies history of other drug use He had DUIs in the past Patient states that he only started drinking 5 to 6 years ago after his 26 patient stated that he could not get over that since then years marriage ended by his leaving him Patient denies any history of IV drug use Denies any history of overdoses Patient denies any history of psych hospitalization Denies any suicidal or homicidal ideation currently remotely Denies any childhood trauma or PTSD however from the way he is talking about his leaving him probably he has undiagnosed PTSD Upon admission his urine drug screen was negative and his ethanol level was negative as well which is explained by his last drink was more than 3 days ago Patient had an incidental fall he thinks it is related to his inner ear after he went through chemotherapy for his throat cancer. DISCHARGE DIAGNOSIS Active Problems Principal Problem: Alcohol withdrawal syndrome with complication (HCC) Active Problems: MARKOS (acute kidney injury) (HCC) Moderate malnutrition (CMS/HCC) (HCC) Severe alcohol use disorder (HCC) Resolved Problems Alcohol withdrawal syndrome with complication (HCC) Body mass index is 23.63 kg/m?. DETOXIFICATION COURSE Detoxed with librium and prn medications for alcohol withdrawal symptoms. PNB was avoided in light of pt being on Xarelto. Pt's withdrawal was largely uneventful. Closer to discharge, pt at time was found to be confused and inappropriate with female staff. He was often disinhibited and impulsive, but often alert and oriented to situation. Throughout stay he continued to decline aftercare resources. He was discharged home to brother. Vitals height is 1.753 m (5' 9) and weight is 72.6 kg (160 lb). His temporal temperature is 36.4 ?C (97.6 ?F). His blood pressure is 111/65 and his pulse is 81. His respiration is 18 and oxygen saturation is 99%. Physical Exam Constitutional: Appearance: Normal appearance. HENT: Mouth/Throat: Mouth: Mucous membranes are moist. Eyes: Extraocular Movements: Extraocular movements intact. Cardiovascular: Rate and Rhythm: Normal rate. Pulmonary: Effort: Pulmonary effort is normal. Abdominal: Palpations: Abdomen is soft. Musculoskeletal: General: Normal range of motion. Cervical back: Normal range of motion. Skin: General: Skin is warm. Neurological: General: No focal deficit present. Mental Status: He is alert and oriented to person, place, and time. Labs Results for orders placed or performed during the hospital encounter of 07/11/24 ECG 12 lead Collection Time: 07/11/24 5:46 PM Result Value Ref Range Heart Rate 132 bpm QRSD Interval 88 ms QT Interval 322 ms QTC Interval 477 ms P [place] 0 degrees QRS [place] 17 degrees T Wave [place] 38 degrees NE Interval 0 ms CBC auto differential Co (more content not included)... [facility] 07-15-2024 Hospital course Narrative Images from the original note were not included. ADDICTION MEDICINE DETOX UNIT DISCHARGE SUMMARY Patient MRN LUCIE Waldrop [id number] 1955 Admit Date Discharge Date 07/11/2024 07/15/2024 Primary Care Physician John Springer MD Admitting Physician Junior Jaramillo MD Consultants None. Reason for Admission Patient was admitted to medical floor for acute kidney injury. Patient was medically cleared for transfer to the detox unit. Please refer to consult note 07/12/2024 for detailed H&P by Dr. Wong. When approached, patient was lying in bed, endorse symptoms of withdrawal including diaphoresis. Overall, withdrawal symptoms are improving. No other physical complaints voiced. Patient is tolerating meals and fluids. Positive signs and/or symptoms of withdrawal observed. No overt events overnight documented. Dr. Wong's initial note: Messi Waldrop is a 69 y.o. year old male with a history of alcohol use disorder Patient was seen earlier this year for an admission that required alcohol detox however after discharge she resumed drinking right away He drinks was equivalent to 12 of the 12 ounce beers daily Patient is a his last drink was 3 days ago Patient denies any history withdrawal seizures Denies any history of DTs Denies history of other drug use He had DUIs in the past Patient states that he only started drinking 5 to 6 years ago after his 26 patient stated that he could not get over that since then years marriage ended by his leaving him Patient denies any history of IV drug use Denies any history of overdoses Patient denies any history of psych hospitalization Denies any suicidal or homicidal ideation currently remotely Denies any childhood trauma or PTSD however from the way he is talking about his leaving him probably he has undiagnosed PTSD Upon admission his urine drug screen was negative and his ethanol level was negative as well which is explained by his last drink was more than 3 days ago Patient had an incidental fall he thinks it is related to his inner ear after he went through chemotherapy for his throat cancer. DISCHARGE DIAGNOSIS Active Problems Principal Problem: Alcohol withdrawal syndrome with complication (HCC) Active Problems: MARKOS (acute kidney injury) (HCC) Moderate malnutrition (CMS/HCC) (HCC) Severe alcohol use disorder (HCC) Resolved Problems Alcohol withdrawal syndrome with complication (HCC) Body mass index is 23.63 kg/m . DETOXIFICATION COURSE Detoxed with librium and prn medications for alcohol withdrawal symptoms. PNB was avoided in light of pt being on Xarelto. Pt's withdrawal was largely uneventful. Closer to discharge, pt at time was found to be confused and inappropriate with female staff. He was often disinhibited and impulsive, but often alert and oriented to situation. Throughout stay he continued to decline aftercare resources. He was discharged home to brother. Vitals height is 1.753 m (5' 9) and weight is 72.6 kg (160 lb). His temporal temperature is 36.4 C (97.6 F). His blood pressure is 111/65 and his pulse is 81. His respiration is 18 and oxygen saturation is 99%. Physical Exam Constitutional: Appearance: Normal appearance. HENT: Mouth/Throat: Mouth: Mucous membranes are moist. Eyes: Extraocular Movements: Extraocular movements intact. Cardiovascular: Rate and Rhythm: Normal rate. Pulmonary: Effort: Pulmonary effort is normal. Abdominal: Palpations: Abdomen is soft. Musculoskeletal: General: Normal range of motion. Cervical back: Normal range of motion. Skin: General: Skin is warm. Neurological: General: No focal deficit present. Mental Status: He is alert and oriented to person, place, and time. Labs Results for orders placed or performed during the hospital encounter of 07/11/24 ECG 12 lead Collection Time: 07/11/24 5:46 PM Result Value Ref Range Heart Rate 132 bpm QRSD Interval 88 ms QT Interval 322 ms QTC Interval 477 ms P [place] 0 degrees QRS [place] 17 degrees T Wave [place] 38 degrees NE Interval 0 ms CBC auto differential Collection Time: 07/11/24 7:42 PM Result Value Ref Range Auto WBC 5.8 3.6 - 10.7 10*3/uL RBC 3.88 (L) 4.40 - 5.90 10*6/uL Hemoglobin 12.6 (L) 13.0 - 18.0 g/dL Hematocrit 37.0 (L) 40.0 - 52.0 % MCV 95.4 77.0 - 99.0 fL MCH 32.5 26.0 - 34.0 pg MCHC 34.1 30.5 - 36.0 % RDW 14.0 11.5 - 15.0 % Platelets 319 140 - 440 10*3/uL MPV 9.6 9.0 - 12.7 fL nRBC 0.0 0.0 - 2.0 /100 WBCs Neutrophils Relative 81.9 38.0 - 82.0 % Lymphocytes Relative 7.6 (L) 15.0 - 45.0 % Monocytes Relative 8.1 5.0 - 13.0 % Eosinophils Relative 1.2 0.0 - 6.0 % Basophils Relative 0.7 0.0 - 2.0 % Immature Grans % 0.5 0.0 - 2.0 % Neutrophils Absolute 4.7 1.8 - 7.5 10*3/uL Lymphocytes Absolute 0.4 (L) 1.0 - 4.3 10*3/uL Monocytes Absolute 0.5 0.0 - 0.9 10*3/uL Eosinophils Absolute 0.1 0.0 - 0.5 10*3/uL Basophils Absolute 0.0 0.0 - 0.2 10*3/uL Immature Grans Absolute 0.0 <0.1 10*3/uL Comprehensive metabolic panel Collection Time: 07/11/24 7:42 PM Result Value Ref Range SODIUM 129 (L) 136 - 145 mmol/L POTASSIUM 4.1 3.5 - 5.1 mmol/L CHLORIDE 95 (L) 98 - 107 mmol/L CARBON DIOXIDE 26 23 - 31 mmol/L ANION GAP 8 3 - 13 mmol/L UREA NITROGEN 23 9 - 23 mg/dL CREATININE 1.49 (H) 0.72 - 1.25 mg/dL GLUCOSE 138 (H) 82 - 115 mg/dL CALCIUM 8.9 8.8 - 10.0 mg/dL AST (SGOT) 43 (H) <34 U/L ALT 25 <40 U/L ALKALINE PHOSPHATASE 81 40 - 150 U/L ALBUMIN 3.5 3.4 - 4.8 g/dL BILIRUBIN, TOTAL 0.8 <1.2 mg/dL TOTAL PROTEIN 6.9 6.4 - 8.3 g/dL eGFR 50.8 (L) >60.0 mL/min/1.73m*2 Ethanol Collection Time: 07/11/24 7:42 PM Result Value Ref Range ETHANOL IN SER/PLAS <10 <10 mg/dL Magnesium Collection Time: 07/11/24 7:42 PM Result Value Ref Range MAGNESIUM 2.0 1.6 - 2.6 mg/dL Serial Troponin, High Sensitivity Collection Time: 07/11/24 7:42 PM Result Value Ref Range Troponin HS, Serial Baseline 9 <=35 ng/L Drug screen panel, emergency Collection Time: 07/11/24 7:46 PM Result Value Ref Range AMPHETAMINE SCREEN Negative BARBITURATES SCREEN Negative BENZODIAZEPINE SCREEN Negative COCAINE METAB. SCREEN Negative METHADONE SCREEN Negative OPIATES SCREEN Negative OXYCODONE SCREEN Negative PHENCYCLIDINE SCREEN Negative FENTANYL SCREEN, UR QUAL Negative SARS-CoV-2 Antigen Collection Time: 07/11/24 7:47 PM Specimen: Nasal; Swab Result Value Ref Range SARS-CoV-2 Antigen Negative Negative Troponin, High Sensitivity, Serial, Second Test Collection Time: 07/12/24 1:08 AM Result Value Ref Range Troponin HS, Serial Second 6 <=35 ng/L Troponin HS Delta, Baseline to Second -3 <=2 ng/L Comprehensive metabolic panel Collection Time: 07/12/24 1:08 AM Result Value Ref Range SODIUM 131 (L) 136 - 145 mmol/L POTASSIUM 3.9 3.5 - 5.1 mmol/L CHLORIDE 104 98 - 107 mmol/L CARBON DIOXIDE 24 23 - 31 mmol/L ANION GAP 3 3 - 13 mmol/L UREA NITROGEN 20 9 - 23 mg/dL CREATININE 1.23 0.72 - 1.25 mg/dL GLUCOSE 77 (L) 82 - 115 mg/dL CALCIUM 7.5 (L) 8.8 - 10.0 mg/dL AST (SGOT) 33 <34 U/L ALT 15 <40 U/L ALKALINE PHOSPHATASE 115 40 - 150 U/L ALBUMIN 2.8 (L) 3.4 - 4.8 g/dL BILIRUBIN, TOTAL 0.5 <1.2 mg/dL TOTAL PROTEIN 5.5 (L) 6.4 - 8.3 g/dL eGFR 63.9 >60.0 mL/min/1.73m*2 CBC Collection Time: 07/12/24 1:08 AM Result Value Ref Range Auto WBC 5.2 3.6 - 10.7 10*3/uL RBC 3.17 (L) 4.40 - 5.90 10*6/uL Hemoglobin 10.3 (L) 13.0 - 18.0 g/dL Hematocrit 30.2 (L) 40.0 - 52.0 % MCV 95.3 77.0 - 99.0 fL MCH 32.5 26.0 - 34.0 pg MCHC 34.1 30.5 - 36.0 % RDW 13.9 11.5 - 15.0 % Platelets 266 140 - 440 10*3/uL MPV 9.9 9.0 - 12.7 fL Magnesium Collection Time: 07/12/24 1:08 AM Result Value Ref Range MAGNESIUM 1.7 1.6 - 2.6 mg/dL POCT glucose meter Collection Time: 07/12/24 8:51 AM Result Value Ref Range Glucose 100 70 - 100 mg/dL POCT glucose meter Collection Time: 07/12/24 5:23 PM Result Value Ref Range Glucose 105 (H) 70 - 100 mg/dL POCT glucose meter Collection Time: 07/12/24 7:55 PM Result Value Ref Range Glucose 108 (H) 70 - 100 mg/dL Comprehensive metabolic panel Collection Time: 07/13/24 5:29 AM Result Value Ref Range SODIUM 128 (L) 136 - 145 mmol/L POTASSIUM 5.2 (H) 3.5 - 5.1 mmol/L CHLORIDE 100 98 - 107 mmol/L CARBON DIOXIDE 23 23 - 31 mmol/L ANION GAP 5 3 - 13 mmol/L UREA NITROGEN 30 (H) 9 - 23 mg/dL CREATININE 1.32 (H) 0.72 - 1.25 mg/dL GLUCOSE 71 (L) 82 - 115 mg/dL CALCIUM 8.6 (L) 8.8 - 10.0 mg/dL AST (SGOT) 48 (H) <34 U/L ALT 18 <40 U/L ALKALINE PHOSPHATASE 70 40 - 150 U/L ALBUMIN 3.1 (L) 3.4 - 4.8 g/dL BILIRUBIN, TOTAL 0.3 <1.2 mg/dL TOTAL PROTEIN 6.6 6.4 - 8.3 g/dL eGFR 58.8 (L) >60.0 mL/min/1.73m*2 CBC Collection Time: 07/13/24 5:29 AM Result Value Ref Range Auto WBC 4.4 3.6 - 10.7 10*3/uL RBC 3.38 (L) 4.40 - 5.90 10*6/uL Hemoglobin 11.0 (L) 13.0 - 18.0 g/dL Hematocrit 32.4 (L) 40.0 - 52.0 % MCV 95.9 77.0 - 99.0 fL MCH 32.5 26.0 - 34.0 pg MCHC 34.0 30.5 - 36.0 % RDW 14.1 11.5 - 15.0 % Platelets 306 140 - 440 10*3/uL MPV 10.7 9.0 - 12.7 fL Comprehensive metabolic panel Collection Time: 07/14/24 5:54 AM Result Value Ref Range SODIUM 131 (L) 136 - 145 mmol/L POTASSIUM 4.3 3.5 - 5.1 mmol/L CHLORIDE 103 98 - 107 mmol/L CARBON DIOXIDE 25 23 - 31 mmol/L ANION GAP 3 3 - 13 mmol/L UREA NITROGEN 27 (H) 9 - 23 mg/dL CREATININE 1.40 (H) 0.72 - 1.25 mg/dL GLUCOSE 96 82 - 115 mg/dL CALCIUM 8.5 (L) 8.8 - 10.0 mg/dL AST (SGOT) 21 <34 U/L ALT 14 <40 U/L ALKALINE PHOSPHATASE 67 40 - 150 U/L ALBUMIN 2.8 (L) 3.4 - 4.8 g/dL BILIRUBIN, TOTAL 0.4 <1.2 mg/dL TOTAL PROTEIN 5.8 (L) 6.4 - 8.3 g/dL eGFR 54.7 (L) >60.0 mL/min/1.73m*2 CBC Collection Time: 07/14/24 5:54 AM Result Value Ref Range Auto WBC 4.5 3.6 - 10.7 10*3/uL RBC 3.14 (L) 4.40 - 5.90 10*6/uL Hemoglobin 10.2 (L) 13.0 - 18.0 g/dL Hematocrit 29.9 (L) 40.0 - 52.0 % MCV 95.2 77.0 - 99.0 fL MCH 32.5 26.0 - 34.0 pg MCHC 34.1 30.5 - 36.0 % RDW 13.9 11.5 - 15.0 % Platelets 238 140 - 440 10*3/uL MPV 10.0 9.0 - 12.7 fL CBC auto differential Collection Time: 07/15/24 5:36 AM Result Value Ref Range Auto WBC 4.2 3.6 - 10.7 10*3/uL RBC 3.05 (L) 4.40 - 5.90 10*6/uL Hemoglobin 9.9 (L) 13.0 - 18.0 g/dL Hematocrit 29.0 (L) 40.0 - 52.0 % MCV 95.1 77.0 - 99.0 fL MCH 32.5 26.0 - 34.0 pg MCHC 34.1 30.5 - 36.0 % RDW 13.7 11.5 - 15.0 % Platelets 224 140 - 440 10*3/uL MPV 10.0 9.0 - 12.7 fL nRBC 0.0 0.0 - 2.0 /100 WBCs Neutrophils Relative 66.7 38.0 - 82.0 % Lymphocytes Relative 13.9 (L) 15.0 - 45.0 % Monocytes Relative 13.9 (H) 5.0 - 13.0 % Eosinophils Relative 4.1 0.0 - 6.0 % Basophils Relative 0.7 0.0 - 2.0 % Immature Grans % 0.7 0.0 - 2.0 % Neutrophils Absolute 2.8 1.8 - 7.5 10*3/uL Lymphocytes Absolute 0.6 (L) 1.0 - 4.3 10*3/uL Monocytes Absolute 0.6 0.0 - 0.9 10*3/uL Eosinophils Absolute 0.2 0.0 - 0.5 10*3/uL Basophils Absolute 0.0 0.0 - 0.2 10*3/uL Immature Grans Absolute 0.0 <0.1 10*3/uL Comprehensive metabolic panel Collection Time: 07/15/24 5:36 AM Result Value Ref Range SODIUM 131 (L) 136 - 145 mmol/L POTASSIUM 4.2 3.5 - 5.1 mmol/L CHLORIDE 103 98 - 107 mmol/L CARBON DIOXIDE 24 23 - 31 mmol/L ANION GAP 4 3 - 13 mmol/L UREA NITROGEN 27 (H) 9 - 23 mg/dL CREATININE 1.39 (H) 0.72 - 1.25 mg/dL GLUCOSE 82 82 - 115 mg/dL CALCIUM 8.4 (L) 8.8 - 10.0 mg/dL AST (SGOT) 22 <34 U/L ALT 10 <40 U/L ALKALINE PHOSPHATASE 69 40 - 150 U/L ALBUMIN 2.9 (L) 3.4 - 4.8 g/dL BILIRUBIN, TOTAL 0.3 <1.2 mg/dL TOTAL PROTEIN 6.0 (L) 6.4 - 8.3 g/dL eGFR 55.2 (L) >60.0 mL/min/1.73m*2 Imaging POCT glucose meter Result Date: 07/12/2024 Performed by: [facility], [address] [place] [id number] CLIA ID: [id number] POCT glucose meter Result Date: 07/12/2024 Performed by: [employer] [facility], [address] [place] [id number] CLIA ID: [id number] POCT glucose meter Result Date: 07/12/2024 Performed by: [facility], [address] [place] [id number] CLIA ID: [id number] ECG 12 lead Atrial fibrillation Ventricular premature complex Borderline prolonged QT interval Electronically Signed On 07-12-2024 00:21:17 EST by Naina Evans XR ribs 2 views right w chest anteroposterior Result Date: 07/11/2024 Patient Name: MESSI WALDROP : 1955 Exam Date/Time: 07/11/2024 18:48 Procedure: XR RIBS 2 VIEWS RIGHT WITH CHEST ANTEROPOSTERIOR Ordering Provider: HERNANDEZ KEVIN Reason For Exam: TRAUMA RIGHT RIB SERIES WITH CHEST X-RAY CLINICAL INDICATION: TRAUMA A PA view of the chest and two plain films of the right rib cage were obtained. COMPARISON: 08/11/2023. FINDINGS: No displaced rib fractures are seen. There is no pneumothorax. No focal areas of consolidation are seen. The heart size is within normal limits. Chronic-appearing right anterior ninth rib fracture. Mild coarse reticular opacities in the left lower lung are chronic and unchanged. No displaced rib fractures are seen within the right hemithorax. Report Dictated on Electronically Signed By: Junior Vera MD Electronically Signed Date/Time: 07/11/2024 6:[address] cervical spine wo IV contrast Result Date: 07/11/2024 Patient Name: MESSI WALDROP : 1955 Exam Date/Time: 07/11/2024 18:00 Procedure: CT CERVICAL SPINE WO IV CONTRAST Ordering Provider: HERNANDEZ KEVIN Reason For Exam: Neck trauma (Age >= 65y) CT CERVICAL SPINE WITHOUT CONTRAST CLINICAL INDICATION: Neck trauma (Age >= 65y) Pain TECHNIQUE: Noncontrast CT scan of the cervical spine. Multiplanar reformations. Dose reduction was employed with automated exposure control. COMPARISON: 01/27/2023 FINDINGS: Vertebral bodies are normal in height and show no significant malalignment. No acute fracture. No soft tissue swelling. Moderate multilevel degenerative changes noted. 1. No acute finding. Report Dictated on Electronically Signed By: Johnie Mccauley MD Electronically Signed Date/Time: 07/11/2024 6:[address] head wo IV contrast Result Date: 07/11/2024 Patient Name: MESSI WALDROP : 1955 Exam Date/Time: 07/11/2024 18:00 Procedure: CT HEAD WO IV CONTRAST Ordering Provider: HERNANDEZ KEVIN Reason For Exam: Head trauma, minor (Age >= 66y) CT BRAIN WITHOUT CONTRAST CLINICAL INDICATION: Head trauma, minor (Age >= 65y) TECHNIQUE: Noncontrast CT scan of the brain. Multiplanar reformations. Dose reduction was employed with automated exposure control. COMPARISON: 08/11/2023 FINDINGS: Moderate atrophy. Patchy low density in the periventricular and subcortical white matter is nonspecific, but may relate to chronic small vessel ischemic change. No hemorrhage, mass effect, or midline shift. No hydrocephalus. No pathologic extra-axial fluid collection. Normal basal cisterns. No evidence of acute cortical infarct. 1. No acute intracranial finding. Suspect chronic small vessel ischemic changes. Report Dictated on Electronically Signed By: Johnie Mccauley MD Electronically Signed Date/Time: 07/11/2024 6:25 PM EST Scheduled Inpatient Meds apixaban, 5 mg, Oral, BID bacitracin, , Topical, BID chlordiazePOXIDE, 5 mg, Oral, q6h cyanocobalamin, 500 mcg, Oral, Daily folic acid, 1 mg, Oral, Daily losartan, 50 mg, Oral, Daily melatonin, 10 mg, Oral, Nightly metoprolol tartrate, 100 mg, Oral, BID mometasone-formoterol, 2 puff, Inhalation, BID thiamine, 100 mg, Oral, Daily PRN Inpatient Meds PRN medications: acetaminophen, albuterol, dextrose, dextrose, glucagon (rDNA), glucose, naloxone, ondansetron ODT OR ondansetron, polyethylene glycol (PEG) 3350, traZODone DISCHARGE INSTRUCTIONS Activity activity as tolerated. Disposition Home. Medication List ASK your doctor about these medications albuterol 108 (90 Base) MCG/ACT inhaler apixaban 5 MG tablet Commonly known as: Eliquis Take 1 tablet (5 mg) by mouth 2 times daily. calcium carbonate 1250 (500 Ca) MG chewable tablet Commonly known as: Os-Altagracia cholecalciferol 25 MCG (1000 UT) tablet Commonly known as: Vitamin D-3 cyanocobalamin 500 MCG tablet Commonly known as: Vitamin B-12 Take 1 tablet (500 mcg) by mouth daily. folic acid 400 MCG tablet Commonly known as: Folvite Take 1 tablet (0.4 mg) by mouth daily. losartan 50 MG tablet Commonly known as: Cozaar Take 1 tablet (50 mg) by mouth daily. metoprolol tartrate 100 MG tablet Commonly known as: Lopressor Take 1 tablet (100 mg) by mouth 2 times daily. MULTIPLE VITAMINS-MINERALS ER PO pyridoxine 25 MG tablet Commonly known as: Vitamin B-6 Take 1 tablet (25 mg) by mouth daily. Follow Up No follow-up provider specified. No future appointments. The patient was also instructed to: Attend AA/NA meetings or a similar 12-step program. Abstain from any mind or mood altering substances that are not prescribed. Follow up with their primary care doctor and/or psychiatrist as soon as possible. This patient was staffed with Dr. Corbett. Nivia Blair MD electronically signed this at 2:45 PM Cosigned by Rolando Corbett MD at 07/15/2024 2:54 PM EST Associated attestation - Rolando Corbett MD - 07/15/2024 2:54 PM EST I saw the patient on the day of discharge and agree with the discharge plans and disposition as recorded by the resident. I personally spent over 30 minutes in the discharge planning process. 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 However, he was A/O x 3, and able to contract for his own safety. Vitals were wnl at discharge and he clinically did not exhibit any more acute alcohol withdrawal. He declined formal alcohol treatment after discharge. Rolando Corbett MD documented in this encounter [facility] 07-15-2024 Nurse Note Patient had IV discontinued at 1015. [facility] 07-15-2024 Nurse Note Pt urinated in his bed. Also, pt made a sexually inappropriate comment towards this RN. [employer] [facility] 07-14-2024 Plan of care note Problem: Knowledge Deficit Goal: Patient/family/caregiver demonstrates understanding of disease process, treatment plan, medications, and discharge instructions Outcome: Progressing Problem: Potential for Compromised Skin Integrity Goal: Skin Integrity is Maintained or Improved Outcome: Progressing Goal: Nutritional status is improving Outcome: Progressing Problem: Urinary Incontinence Goal: Perineal skin integrity is maintained or improved Outcome: Progressing Problem: Knowledge Deficit Goal: Patient/family/caregiver demonstrates understanding of disease process, treatment plan, medications, and discharge instructions Outcome: Progressing Problem: Potential for Falls Goal: I will remain free of falls Outcome: Progressing Problem: Discharge Barriers Goal: My discharge needs are met Outcome: Progressing Problem: Anxiety Goal: Patient/family understands admission protocols Outcome: Progressing Goal: Attempts to manage anxiety with help Outcome: Progressing Goal: Verbalizes ways to manage anxiety Outcome: Progressing Goal: Implements measures to reduce anxiety Outcome: Progressing Goal: Free from restraint events Outcome: Progressing Problem: Drug Abuse/Detox Goal: Will have no detox symptoms and will verbalize plan for changing drug-related behavior Outcome: Progressing [facility] 07-14-2024 Nurse Note Pt given Tylenol for back pain. Pt reporting that just melatonin is ineffective for sleep assistance and would like more sleep medications - Dr Barrett messaged. Pts forehead cleansed with NS, bacitracin applied and redressed. Pt continually needing this RN's attention. Patient is A and O x 4. Pt is compliant with medications. Pt denies SI/HI/AVH at this time. Pt reports their appetite is good. Pt is up and steady. [facility] 07-14-2024 Consult note Associated Order (s): IP CONSULT TO DIETITIAN Type and Reason for Visit: Initial, Consult Nutrition Recommendations/Plan: Will initiate: 1 Ensure + dash. Bid @ L & D daily. Will monitor po intake. 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 14% loss of UBW over 10 months) Body Fat Loss: Mild body fat loss Orbital, Buccal region Muscle Mass Loss: Mild muscle mass loss (mild to moderate) Temples (temporalis), Clavicles (pectoralis & deltoids) Fluid Accumulation: n/a Electrical Continuity Inspector Strength: Not Performed Nutrition Assessment: Per 07/11 chart excerpt: 69 y.o. that presents with chief complaint of needing treatment for alcohol abuse. States last drink was yesterday. History of drinking at least a half a bottle of vodka daily. He did have a recent fall few days ago, hitting his forehead. Per pt.: good appetite, mentions sore in upper right side of mouth, having to stay away from acidic foods, mentions I don't eat much! 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 Estimated Daily Nutrient Needs: Energy Requirements Based On: Kcal/kg Weight Used for Energy Requirements: Admission Weight for Energy Calculation (kg): 73 kg Total Energy Requirements (kcals/day): 1825 - 2190 kcals/day Weight Used for Protein Requirements: Admission Weight in Kg Used for Protein Requirements: 73 kg Estimated Total Protein (g/day): 80 - 88 gms protein/day Estimated Daily Total Fluid (ml/day): 1825 - 83003 mls/day Nutrition Related Findings: weight loss, MARKOS, ETOH intake MECHATRONICS TECHNOLOGIST; Labs: 07/14 Na+ 131, Hg 10.2, Hct 29.9, GFR 54.7, low, BUN 27, Creat. 1.40, elevated Wound Type: None Current Nutrition Therapies: Adult diet Regular Current Oral Intake Average Meal Intake: 76-100% Average Supplements Intake: None Ordered Anthropometric Measures: Height: 175.3 cm (5' 9) Current Body Weight: 72.6 kg (160 lb) Weight Source: Not Specified Admission Body Weight: 72.6 kg (160 lb) Usual Body Weight: 84.8 kg (187 lb) ([facility] 09/14/23; 5 years ago weighed 250#) % Weight Change (Calculated): -14.4 Ina Body Weight (lbs) (Calculated): 160 lbs Ina Body Weight (Kg) (Calculated): 73 kg % Ina Body Weight (Calculated): 100 % BMI (kg/m2) (Calculated): 23.6 Weight Adjustment For: No Adjustment BMI Categories: Normal Weight (BMI 22.0 to 24.9) age over 65 Nutrition Diagnosis: Altered nutrition-related lab values, In context of social or environmental circumstances, Unintended weight loss, Increased nutrient needs, Inadequate protein intake, Inadequate oral intake, Inadequate energy intake, Predicted inadequate energy intake, Inadequate protein-energy intake, In context of acute illness or injury, Moderate malnutrition related to increase demand for energy/nutrients, psychological cause or life stress, inadequate protein-energy intake (ETOH hx) as evidenced by weight loss, poor intake prior to admission, intake 26-50%, lab values, moderate muscle loss, mild muscle loss, mild loss of subcutaneous fat (est. 14% loss of UBW over 10 months) Nutrition Interventions: Nutrition Education/Counseling: No recommendation at this time Coordination of Nutrition Care: Continue to monitor while inpatient, Coordination of Care Plan of Care discussed with: pt. Goals: Goals: PO intake 50% or greater, other (specify) Specify Other Goals: of supplement Nutrition Monitoring and Evaluation: Behavioral-Environmental Outcomes: Beliefs and Attitutes, Readiness for Change Food/Nutrient Intake Outcomes: Supplement Intake, Food and Nutrient Intake Physical Signs/Symptoms Outcomes: Biochemical Data, GI Status, Fluid Status or Edema, Hemodynamic Status, Meal Time Behavior, Nutrition Focused Physical Findings, Skin, Weight Discharge Planning: Assist with food insecurity, Continue Oral Nutrition Supplement, Continue current diet Tierra Kwon RD Contact: via [employer] chat or office *[phone] [facility] 07-14-2024 Consult note Associated Order (s): IP CONSULT TO DIETITIAN Type and Reason for Visit: Initial, Consult Nutrition Recommendations/Plan: Will initiate: 1 Ensure + dash. Bid @ L & D daily. Will monitor po intake. 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 14% loss of UBW over 10 months) Body Fat Loss: Mild body fat loss Orbital, Buccal region Muscle Mass Loss: Mild muscle mass loss (mild to moderate) Temples (temporalis), Clavicles (pectoralis & deltoids) Fluid Accumulation: n/a Electrical Continuity Inspector Strength: Not Performed Nutrition Assessment: Per 07/11 chart excerpt: 69 y.o. that presents with chief complaint of needing treatment for alcohol abuse. States last drink was yesterday. History of drinking at least a half a bottle of vodka daily. He did have a recent fall few days ago, hitting his forehead. Per pt.: good appetite, mentions sore in upper right side of mouth, having to stay away from acidic foods, mentions I don't eat much! 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 Estimated Daily Nutrient Needs: Energy Requirements Based On: Kcal/kg Weight Used for Energy Requirements: Admission Weight for Energy Calculation (kg): 73 kg Total Energy Requirements (kcals/day): 1825 - 2190 kcals/day Weight Used for Protein Requirements: Admission Weight in Kg Used for Protein Requirements: 73 kg Estimated Total Protein (g/day): 80 - 88 gms protein/day Estimated Daily Total Fluid (ml/day): 1825 - 08792 mls/day Nutrition Related Findings: weight loss, MARKOS, ETOH intake MECHATRONICS TECHNOLOGIST; Labs: 07/14 Na+ 131, Hg 10.2, Hct 29.9, GFR 54.7, low, BUN 27, Creat. 1.40, elevated Wound Type: None Current Nutrition Therapies: Adult diet Regular Current Oral Intake Average Meal Intake: 76-100% Average Supplements Intake: None Ordered Anthropometric Measures: Height: 175.3 cm (5' 9) Current Body Weight: 72.6 kg (160 lb) Weight Source: Not Specified Admission Body Weight: 72.6 kg (160 lb) Usual Body Weight: 84.8 kg (187 lb) ([facility] 09/14/23; 5 years ago weighed 250#) % Weight Change (Calculated): -14.4 Ina Body Weight (lbs) (Calculated): 160 lbs Ina Body Weight (Kg) (Calculated): 73 kg % Ina Body Weight (Calculated): 100 % BMI (kg/m2) (Calculated): 23.6 Weight Adjustment For: No Adjustment BMI Categories: Normal Weight (BMI 22.0 to 24.9) age over 65 Nutrition Diagnosis: Altered nutrition-related lab values, In context of social or environmental circumstances, Unintended weight loss, Increased nutrient needs, Inadequate protein intake, Inadequate oral intake, Inadequate energy intake, Predicted inadequate energy intake, Inadequate protein-energy intake, In context of acute illness or injury, Moderate malnutrition related to increase demand for energy/nutrients, psychological cause or life stress, inadequate protein-energy intake (ETOH hx) as evidenced by weight loss, poor intake prior to admission, intake 26-50%, lab values, moderate muscle loss, mild muscle loss, mild loss of subcutaneous fat (est. 14% loss of UBW over 10 months) Nutrition Interventions: Nutrition Education/Counseling: No recommendation at this time Coordination of Nutrition Care: Continue to monitor while inpatient, Coordination of Care Plan of Care discussed with: pt. Goals: Goals: PO intake 50% or greater, other (specify) Specify Other Goals: of supplement Nutrition Monitoring and Evaluation: Behavioral-Environmental Outcomes: Beliefs and Attitutes, Readiness for Change Food/Nutrient Intake Outcomes: Supplement Intake, Food and Nutrient Intake Physical Signs/Symptoms Outcomes: Biochemical Data, GI Status, Fluid Status or Edema, Hemodynamic Status, Meal Time Behavior, Nutrition Focused Physical Findings, Skin, Weight Discharge Planning: Assist with food insecurity, Continue Oral Nutrition Supplement, Continue current diet Tierra Kwon RD Contact: via [facility] chat or office *[phone] Associated Order(s): IP CONSULT TO ADDICTION MEDICINE [facility] Consult service H&P Admit Date: 07/11/2024 Primary Care Physician: John Springer MD ] Chief Complaint Patient presents with Alcohol Problem Patient with daughter for alcohol detox , last drink yesterday, drink amount varies but most recently drinking 1/2 bottle of vodka daily, denies hx of seizures with withdrawal Substance dependence disorder History of Present Illness Messi Waldrop is a 69 y.o. year old male with a history of alcohol use disorder Patient was seen earlier this year for an admission that required alcohol detox however after discharge she resumed drinking right away He drinks was equivalent to 12 of the 12 ounce beers daily Patient is a his last drink was 3 days ago Patient denies any history withdrawal seizures Denies any history of DTs Denies history of other drug use He had DUIs in the past Patient states that he only started drinking 5 to 6 years ago after his 26 patient stated that he could not get over that since then years marriage ended by his leaving him Patient denies any history of IV drug use Denies any history of overdoses Patient denies any history of psych hospitalization Denies any suicidal or homicidal ideation currently remotely Denies any childhood trauma or PTSD however from the way he is talking about his leaving him probably he has undiagnosed PTSD Upon admission his urine drug screen was negative and his ethanol level was negative as well which is explained by his last drink was more than 3 days ago Patient had an incidental fall he thinks it is related to his inner ear after he went through chemotherapy for his throat cancer Substance Use Disorder Criteria 1. Taking substance in larger amounts and/or for longer than intended [x] 2. Wanting to cut down or quit substance use but not being able to [x] 3. Spending a lot of time obtaining the substance [x] 4. Craving or a strong desire to use substance [x] 5. Repeatedly doesn't carry out major obligations due to substance use [x] 6. Using despite recurring social or interpersonal problems caused by substance use [x] 7. Reducing social, occupational, or recreational activities due to substance use [x] 8. Recurrent use of substance in physically hazardous situations [x] 9. Consistent use of substance despite recurrent physical or psychological difficulties [x] 10. Tolerance (increased amounts to achieve intoxication or diminished effect) [x] 11. 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 COPD (chronic obstructive pulmonary disease) (HCC) Elevated blood pressure Essential (primary) hypertension 07/08/2017 Hyperlipidemia Indigestion Insomnia Prediabetes Umbilical hernia Past Surgical History: Procedure Laterality Date COLONOSCOPY DENTAL SURGERY EYE SURGERY Bilateral cataract surgery LARYNGOSCOPY 03/04/2020 fine needle aspiration biopsy right neck mass and right base of tounge biopsy - dr steiner LASEL TONSILLECTOMY (HISTORICAL) Right 03/04/2020 dr steiner Family History Problem Relation Name Age of Onset Diabetes Mother Diabetes Sister Diabetes Brother Social History Socioeconomic History Marital status: Single Spouse name: Not on file Number of children: Not on file Years of education: Not on file Highest education level: Not on file Occupational History Not on file Tobacco Use Smoking status: Former Current packs/day: 0.00 Types: Cigarettes Quit date: 09/16/1997 Years since quittin.8 Passive exposure: Past Smokeless tobacco: Current Tobacco comments: On Smokeless Tobacco Vaping Use Vaping status: Never Used Substance and Sexual Activity Alcohol use: Yes Alcohol/week: 42.0 standard drinks of alcohol Drug use: No Sexual activity: Yes Other Topics Concern Not on file Social History Narrative Merged History Encounter Social Drivers of Health Financial Resource Strain: Low Risk (10/26/2021) Received from [facility] Overall Financial Resource Strain (CARDIA) Difficulty of Paying Living Expenses: Not hard at all Food Insecurity: No Food Insecurity (10/26/2021) Received from [facility] Hunger Vital Sign Worried About Running Out of Food in the Last Year: Never true Ran Out of Food in the Last Year: Never true Transportation Needs: No Transportation Needs (09/30/2020) Received from [facility] PRAPARE - Transportation Lack of Transportation (Medical): No Lack of Transportation (Non-Medical): No Physical Activity: Not on file Stress: Not on file Social Connections: Not on file Intimate Partner Violence: Not At Risk (07/12/2024) Humiliation, Afraid, Rape, and Kick questionnaire Fear of Current or Ex-Partner: No Emotionally Abused: No Physically Abused: No Sexually Abused: No Housing Stability: Unknown (07/12/2024) Housing Stability Vital Sign Unable to Pay for Housing in the Last Year: No Number of Times Moved in the Last Year: Not on file Homeless in the Last Year: Not on file Allergies: Patient has no known allergies. Review of Systems Denies suicidal or homicidal ideation denies tactile auditory or visual hallucinations All of systems ROS was completed and was negative unless stated above Physical Exam Vitals: 07/12/24 0108 07/12/24 0524 07/12/24 0532 07/12/24 0756 BP: (!) 139/94 108/77 108/77 132/89 BP Location: Right arm Patient Position: Lying Pulse: 100 105 105 79 Resp: 18 16 16 Temp: 36.6 C (97.9 F) TempSrc: Temporal SpO2: 98% 100% 98% Weight: Height: General appearance: Cooperative, no distress, appears stated age, non-toxic. Skin: Skin color, temperature, turgor normal. No rashes or lesions. ENMT: Conjunctivae/corneas clear. PERRL, EOM's intact. Nares normal. Septum midline. Mucosa normal. No drainage or sinus tenderness. Lips, mucosa, and tongue normal. Teeth and gums normal. Neck: Normal range of motion. Thyroid normal. No masses or lymphadenopathy noted. Respiratory: Clear to auscultation bilaterally. Non-labored breathing. Cardiovascular: Regular rate and rhythm. S1, S2 normal. No murmur, click, rub or gallop. Distal pulses intact in 4 extremities. Gastrointestinal: Soft, non-tender. Bowel sounds normal. No masses, no organomegaly. Neurologic: CN II-XII grossly intact. Normal sensation. Normal symmetric reflexes. Normal coordination and gait. Musculoskeletal: Normal muscle strength and tone in 4 distal extremities. Normal range of motion in 4 distal extremities. Psychiatric: Alert and oriented to person, place, and time. Insight: fair. Judgment: fair. Diaphoresis: 0/10 Restlessness: 0/10 Palmar Erythema 0/10 Tongue Fasciculations: 0/10 Extremity Tremors: 0/10 Imaging/Labs/Meds @RISRSLT@ Recent Results (from the past 48 hours) ECG 12 lead Collection Time: 07/11/24 5:46 PM Result Value Ref Range Heart Rate 132 bpm QRSD Interval 88 ms QT Interval 322 ms QTC Interval 477 ms P [place] 0 degrees QRS [place] 17 degrees T Wave [place] 38 degrees NE Interval 0 ms CBC auto differential Collection Time: 07/11/24 7:42 PM Result Value Ref Range Auto WBC 5.8 3.6 - 10.7 10*3/uL RBC 3.88 (L) 4.40 - 5.90 10*6/uL Hemoglobin 12.6 (L) 13.0 - 18.0 g/dL Hematocrit 37.0 (L) 40.0 - 52.0 % MCV 95.4 77.0 - 99.0 fL MCH 32.5 26.0 - 34.0 pg MCHC 34.1 30.5 - 36.0 % RDW 14.0 11.5 - 15.0 % Platelets 319 140 - 440 10*3/uL MPV 9.6 9.0 - 12.7 fL nRBC 0.0 0.0 - 2.0 /100 WBCs Neutrophils Relative 81.9 38.0 - 82.0 % Lymphocytes Relative 7.6 (L) 15.0 - 45.0 % Monocytes Relative 8.1 5.0 - 13.0 % Eosinophils Relative 1.2 0.0 - 6.0 % Basophils Relative 0.7 0.0 - 2.0 % Immature Grans % 0.5 0.0 - 2.0 % Neutrophils Absolute 4.7 1.8 - 7.5 10*3/uL Lymphocytes Absolute 0.4 (L) 1.0 - 4.3 10*3/uL Monocytes Absolute 0.5 0.0 - 0.9 10*3/uL Eosinophils Absolute 0.1 0.0 - 0.5 10*3/uL Basophils Absolute 0.0 0.0 - 0.2 10*3/uL Immature Grans Absolute 0.0 <0.1 10*3/uL Comprehensive metabolic panel Collection Time: 07/11/24 7:42 PM Result Value Ref Range SODIUM 129 (L) 136 - 145 mmol/L POTASSIUM 4.1 3.5 - 5.1 mmol/L CHLORIDE 95 (L) 98 - 107 mmol/L CARBON DIOXIDE 26 23 - 31 mmol/L ANION GAP 8 3 - 13 mmol/L UREA NITROGEN 23 9 - 23 mg/dL CREATININE 1.49 (H) 0.72 - 1.25 mg/dL GLUCOSE 138 (H) 82 - 115 mg/dL CALCIUM 8.9 8.8 - 10.0 mg/dL AST (SGOT) 43 (H) <34 U/L ALT 25 <40 U/L ALKALINE PHOSPHATASE 81 40 - 150 U/L ALBUMIN 3.5 3.4 - 4.8 g/dL BILIRUBIN, TOTAL 0.8 <1.2 mg/dL TOTAL PROTEIN 6.9 6.4 - 8.3 g/dL eGFR 50.8 (L) >60.0 mL/min/1.73m*2 Ethanol Collection Time: 07/11/24 7:42 PM Result Value Ref Range ETHANOL IN SER/PLAS <10 <10 mg/dL Magnesium Collection Time: 07/11/24 7:42 PM Result Value Ref Range MAGNESIUM 2.0 1.6 - 2.6 mg/dL Serial Troponin, High Sensitivity Collection Time: 07/11/24 7:42 PM Result Value Ref Range Troponin HS, Serial Baseline 9 <=35 ng/L Drug screen panel, emergency Collection Time: 07/11/24 7:46 PM Result Value Ref Range AMPHETAMINE SCREEN Negative BARBITURATES SCREEN Negative BENZODIAZEPINE SCREEN Negative COCAINE METAB. SCREEN Negative METHADONE SCREEN Negative OPIATES SCREEN Negative OXYCODONE SCREEN Negative PHENCYCLIDINE SCREEN Negative FENTANYL SCREEN, UR QUAL Negative SARS-CoV-2 Antigen Collection Time: 07/11/24 7:47 PM Specimen: Nasal; Swab Result Value Ref Range SARS-CoV-2 Antigen Negative Negative Troponin, High Sensitivity, Serial, Second Test Collection Time: 07/12/24 1:08 AM Result Value Ref Range Troponin HS, Serial Second 6 <=35 ng/L Troponin HS Delta, Baseline to Second -3 <=2 ng/L Comprehensive metabolic panel Collection Time: 07/12/24 1:08 AM Result Value Ref Range SODIUM 131 (L) 136 - 145 mmol/L POTASSIUM 3.9 3.5 - 5.1 mmol/L CHLORIDE 104 98 - 107 mmol/L CARBON DIOXIDE 24 23 - 31 mmol/L ANION GAP 3 3 - 13 mmol/L UREA NITROGEN 20 9 - 23 mg/dL CREATININE 1.23 0.72 - 1.25 mg/dL GLUCOSE 77 (L) 82 - 115 mg/dL CALCIUM 7.5 (L) 8.8 - 10.0 mg/dL AST (SGOT) 33 <34 U/L ALT 15 <40 U/L ALKALINE PHOSPHATASE 115 40 - 150 U/L ALBUMIN 2.8 (L) 3.4 - 4.8 g/dL BILIRUBIN, TOTAL 0.5 <1.2 mg/dL TOTAL PROTEIN 5.5 (L) 6.4 - 8.3 g/dL eGFR 63.9 >60.0 mL/min/1.73m*2 CBC Collection Time: 07/12/24 1:08 AM Result Value Ref Range Auto WBC 5.2 3.6 - 10.7 10*3/uL RBC 3.17 (L) 4.40 - 5.90 10*6/uL Hemoglobin 10.3 (L) 13.0 - 18.0 g/dL Hematocrit 30.2 (L) 40.0 - 52.0 % MCV 95.3 77.0 - 99.0 fL MCH 32.5 26.0 - 34.0 pg MCHC 34.1 30.5 - 36.0 % RDW 13.9 11.5 - 15.0 % Platelets 266 140 - 440 10*3/uL MPV 9.9 9.0 - 12.7 fL Magnesium Collection Time: 07/12/24 1:08 AM Result Value Ref Range MAGNESIUM 1.7 1.6 - 2.6 mg/dL POCT glucose meter Collection Time: 07/12/24 8:51 AM Result Value Ref Range Glucose 100 70 - 100 mg/dL apixaban, 5 mg, Oral, BID bacitracin, , Topical, BID cyanocobalamin, 500 mcg, Oral, Daily folic acid, 1 mg, Oral, Daily losartan, 50 mg, Oral, Daily metoprolol tartrate, 100 mg, Oral, BID mometasone-formoterol, 2 puff, Inhalation, BID thiamine, 100 mg, Oral, Daily PRN medications: acetaminophen, albuterol, dextrose, dextrose, glucagon (rDNA), glucose, HYDROcodone - acetaminophen OR HYDROcodone - acetaminophen, LORazepam OR LORazepam OR LORazepam OR LORazepam OR LORazepam OR LORazepam OR LORazepam OR LORazepam, naloxone, ondansetron ODT OR ondansetron, polyethylene glycol (PEG) 3350 @[id number]@ Plan 1. Alcohol use disorder severe with mild withdrawals Patient last drink was 3 days ago Will continue thiamine and folic acid Will put him on a taper dose of librium Will avoid phenobarb since he is on xarelto If he is stable we will consider transferring him to the detox unit Discussed with the patient options of MAT to help him with his alcohol cessation after discharge Remaining medical management per primary team. Will follow. Ajith Wong MD, MD Addiction Medicine 07/12/2024 at 11:16 AM documented in this encounter [facility] 07-14-2024 History of Presen t illness Narrative Nutrition Assessment Type and Reason for Visit: Initial, Consult Nutrition Recommendations/Plan: Will initiate: 1 Ensure + dash. Bid @ L & D daily. Will monitor po intake. 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 14% loss of UBW over 10 months) Body Fat Loss: Mild body fat loss Orbital, Buccal region Muscle Mass Loss: Mild muscle mass loss (mild to moderate) Temples (temporalis), Clavicles (pectoralis & deltoids) Fluid Accumulation: n/a Electrical Continuity Inspector Strength: Not Performed Nutrition Assessment: Per 07/11 chart excerpt: 69 y.o. that presents with chief complaint of needing treatment for alcohol abuse. States last drink was yesterday. History of drinking at least a half a bottle of vodka daily. He did have a recent fall few days ago, hitting his forehead. Per pt.: good appetite, mentions sore in upper right side of mouth, having to stay away from acidic foods, mentions I don't eat much! 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 Estimated Daily Nutrient Needs: Energy Requirements Based On: Kcal/kg Weight Used for Energy Requirements: Admission Weight for Energy Calculation (kg): 73 kg Total Energy Requirements (kcals/day): 1825 - 2190 kcals/day Weight Used for Protein Requirements: Admission Weight in Kg Used for Protein Requirements: 73 kg Estimated Total Protein (g/day): 80 - 88 gms protein/day Estimated Daily Total Fluid (ml/day): 1825 - 44327 mls/day Nutrition Related Findings: weight loss, MARKOS, ETOH intake MECHATRONICS TECHNOLOGIST; Labs: 07/14 Na+ 131, Hg 10.2, Hct 29.9, GFR 54.7, low, BUN 27, Creat. 1.40, elevated Wound Type: None Current Nutrition Therapies: Adult diet Regular Current Oral Intake Average Meal Intake: 76-100% Average Supplements Intake: None Ordered Anthropometric Measures: Height: 175.3 cm (5' 9) Current Body Weight: 72.6 kg (160 lb) Weight Source: Not Specified Admission Body Weight: 72.6 kg (160 lb) Usual Body Weight: 84.8 kg (187 lb) ([facility] 09/14/23; 5 years ago weighed 250#) % Weight Change (Calculated): -14.4 Ina Body Weight (lbs) (Calculated): 160 lbs Ina Body Weight (Kg) (Calculated): 73 kg % Ina Body Weight (Calculated): 100 % BMI (kg/m2) (Calculated): 23.6 Weight Adjustment For: No Adjustment BMI Categories: Normal Weight (BMI 22.0 to 24.9) age over 65 Nutrition Diagnosis: Altered nutrition-related lab values, In context of social or environmental circumstances, Unintended weight loss, Increased nutrient needs, Inadequate protein intake, Inadequate oral intake, Inadequate energy intake, Predicted inadequate energy intake, Inadequate protein-energy intake, In context of acute illness or injury, Moderate malnutrition related to increase demand for energy/nutrients, psychological cause or life stress, inadequate protein-energy intake (ETOH hx) as evidenced by weight loss, poor intake prior to admission, intake 26-50%, lab values, moderate muscle loss, mild muscle loss, mild loss of subcutaneous fat (est. 14% loss of UBW over 10 months) Nutrition Interventions: Nutrition Education/Counseling: No recommendation at this time Coordination of Nutrition Care: Continue to monitor while inpatient, Coordination of Care Plan of Care discussed with: pt. Goals: Goals: PO intake 50% or greater, other (specify) Specify Other Goals: of supplement Nutrition Monitoring and Evaluation: Behavioral-Environmental Outcomes: Beliefs and Attitutes, Readiness for Change Food/Nutrient Intake Outcomes: Supplement Intake, Food and Nutrient Intake Physical Signs/Symptoms Outcomes: Biochemical Data, GI Status, Fluid Status or Edema, Hemodynamic Status, Meal Time Behavior, Nutrition Focused Physical Findings, Skin, Weight Discharge Planning: Assist with food insecurity, Continue Oral Nutrition Supplement, Continue current diet Tierra Kwon RD Contact: via [employer] chat or office *[phone] Images from the original note were not included. ADDICTION MEDICINE PROGRESS NOTE Patient: Messi Max November Problem List: Principal Problem: MARKOS (acute kidney injury) (HCC) SUBJECTIVE Chief Complaint Patient presents with Alcohol Problem Patient with daughter for alcohol detox , last drink yesterday, drink amount varies but most recently drinking 1/2 bottle of vodka daily, denies hx of seizures with withdrawal Last 4 CIWA scores per RN assessments 2 - 3 - 2 - 2 Interim History Doing well in terms of withdrawal sx today Tells me he has an upcoming court case, links it to becoming intoxicated but tells me he does not recall what occurred that he received legal charges or what the charges are Denies pain from head injury, tells me this did not occur while he was intoxicated though he told another care sales floor team member it was Continues to decline aftercare resources, plans to return home where he lives with his brother Review of Systems Review of Systems Constitutional: Negative for chills, diaphoresis, malaise/fatigue and night sweats. Eyes: Negative for visual disturbance. Cardiovascular: Negative for chest pain. Musculoskeletal: Negative for falls. Gastrointestinal: Negative for abdominal pain, nausea and vomiting. Neurological: Negative for headaches, light-headedness and tremors. Psychiatric/Behavioral: Negative for depression, hallucinations and suicidal ideas. The patient is not nervous/anxious. OBJECTIVE Vitals Vitals: 07/13/24 2039 07/14/24 0608 07/14/24 0842 07/14/24 1200 BP: 111/74 108/86 127/82 123/80 BP Location: Left arm Patient Position: Lying Pulse: 93 76 83 87 Resp: Temp: 36.7 C (98.1 F) 36.7 C (98 F) 36.1 C (96.9 F) TempSrc: Temporal Temporal Temporal SpO2: 100% 98% Weight: Height: Physical Exam Vitals and nursing note reviewed. Constitutional: General: He is sleeping. Appearance: He is not diaphoretic. HENT: Ears: Comments: [place] does not have hearing aides Cardiovascular: Rate and Rhythm: Normal rate. Pulmonary: Effort: Pulmonary effort is normal. Skin: Coloration: Skin is not pale. Neurological: Mental Status: He is oriented to person, place, and time and easily aroused. Psychiatric: Mood and Affect: Mood normal. Behavior: Behavior normal. Behavior is cooperative. Thought Content: Thought content normal. Judgment: Judgment normal. Medications Home Meds Current Outpatient Medications Medication Instructions albuterol 108 (90 Base) MCG/ACT inhaler 2 puffs, Every 4 hours PRN apixaban (ELIQUIS) 5 mg, Oral, 2 times daily calcium carbonate (Os-Altagracia) 1250 (500 Ca) MG chewable tablet 1 tablet cholecalciferol (VITAMIN D-3) 1,000 Units, Daily cyanocobalamin (VITAMIN B-12) 500 mcg, Oral, Daily folic acid (FOLVITE) 0.4 mg, Oral, Daily losartan (COZAAR) 50 mg, Oral, Daily metoprolol tartrate (LOPRESSOR) 100 mg, Oral, 2 times daily MULTIPLE VITAMINS-MINERALS ER PO Take by mouth. pyridoxine (VITAMIN B-6) 25 mg, Oral, Daily Scheduled Inpatient Meds apixaban, 5 mg, Oral, BID bacitracin, , Topical, BID chlordiazePOXIDE, 5 mg, Oral, q6h cyanocobalamin, 500 mcg, Oral, Daily folic acid, 1 mg, Oral, Daily losartan, 50 mg, Oral, Daily melatonin, 10 mg, Oral, Nightly metoprolol tartrate, 100 mg, Oral, BID mometasone-formoterol, 2 puff, Inhalation, BID thiamine, 100 mg, Oral, Daily PRN Inpatient Meds PRN medications: acetaminophen, albuterol, dextrose, dextrose, glucagon (rDNA), glucose, naloxone, ondansetron ODT OR ondansetron, polyethylene glycol (PEG) 3350 Continuous Inpatient Infusions Recent Imaging POCT glucose meter Result Date: 07/12/2024 [facility]formed by: [facility], [address] [place] [id number] CLIA ID: [id number] POCT glucose meter Result Date: 07/12/2024 Performed by: [facility], [address] [place] [id number] CLIA ID: [id number] POCT glucose meter Result Date: 07/12/2024 [facility]formed by: [facility], [address] [place] [id number] CLIA ID: [id number] ECG 12 lead Atrial fibrillation Ventricular premature complex Borderline prolonged QT interval Electronically Signed On 07-12-2024 00:21:17 EST by Naina Evans XR ribs 2 views right w chest anteroposterior Result Date: 07/11/2024 Patient Name: MESSI WALDROP : 1955 [facility]#: [id number] Exam Date/Time: 07/11/2024 18:48 Procedure: XR RIBS 2 VIEWS RIGHT WITH CHEST ANTEROPOSTERIOR Ordering Provider: HERNANDEZ KEVIN Reason For Exam: TRAUMA RIGHT RIB SERIES WITH CHEST X-RAY CLINICAL INDICATION: TRAUMA A PA view of the chest and two plain films of the right rib cage were obtained. COMPARISON: 08/11/2023. FINDINGS: No displaced rib fractures are seen. There is no pneumothorax. No focal areas of consolidation are seen. The heart size is within normal limits. Chronic-appearing right anterior ninth rib fracture. Mild coarse reticular opacities in the left lower lung are chronic and unchanged. No displaced rib fractures are seen within the right hemithorax. Report Dictated on Electronically Signed By: Junior Vera MD Electronically Signed Date/Time: 07/11/2024 6:[address] cervical spine wo IV contrast Result Date: 07/11/2024 Patient Name: MESSI WALDROP : 1955 Exam Date/Time: 07/11/2024 18:00 Procedure: CT CERVICAL SPINE WO IV CONTRAST Ordering Provider: HERNANDEZ KEVIN Reason For Exam: Neck trauma (Age >= 65y) CT CERVICAL SPINE WITHOUT CONTRAST CLINICAL INDICATION: Neck trauma (Age >= 65y) Pain TECHNIQUE: Noncontrast CT scan of the cervical spine. Multiplanar reformations. Dose reduction was employed with automated exposure control. COMPARISON: 01/27/2023 FINDINGS: Vertebral bodies are normal in height and show no significant malalignment. No acute fracture. No soft tissue swelling. Moderate multilevel degenerative changes noted. 1. No acute finding. Report Dictated on Electronically Signed By: Johnie Mccauley MD Electronically Signed Date/Time: 07/11/2024 6:[address] head wo IV contrast Result Date: 07/11/2024 Patient Name: MESSI WALDROP : 1955 Exam Date/Time: 07/11/2024 18:00 Procedure: CT HEAD WO IV CONTRAST Ordering Provider: HERNANDEZ KEVIN Reason For Exam: Head trauma, minor (Age >= 66y) CT BRAIN WITHOUT CONTRAST CLINICAL INDICATION: Head trauma, minor (Age >= 65y) TECHNIQUE: Noncontrast CT scan of the brain. Multiplanar reformations. Dose reduction was employed with automated exposure control. COMPARISON: 08/11/2023 FINDINGS: Moderate atrophy. Patchy low density in the periventricular and subcortical white matter is nonspecific, but may relate to chronic small vessel ischemic change. No hemorrhage, mass effect, or midline shift. No hydrocephalus. No pathologic extra-axial fluid collection. Normal basal cisterns. No evidence of acute cortical infarct. 1. No acute intracranial finding. Suspect chronic small vessel ischemic changes. Report Dictated on Electronically Signed By: Johnie Mccauley MD Electronically Signed Date/Time: 07/11/2024 6:25 PM EST Labs CBC: Recent Labs 07/12/2410707/13/2452807/14/24 0554 WBC 5.2 4.4 4.5 HGB 10.3* 11.0* 10.2* PLT 266 306 238 MCV 95.3 95.9 95.2 RDW 13.9 14.1 13.9 BMP: Recent Labs 07/11/24194107/12/2410707/13/2452807/14/24 0554 NA 129* 131* 128* 131* K 4.1 3.9 5.2* 4.3 CL 95* 104 100 103 CO2 26 24 23 25 BUN 23 20 30* 27* CREATININE 1.49* 1.23 1.32* 1.40* CALCIUM 8.9 7.5* 8.6* 8.5* MG 2.0 1.7 -- -- Liver Profile: Recent Labs 07/12/2410707/13/2452807/14/24 0554 AST 33 48* 21 ALT 15 18 14 BILITOT 0.5 0.3 0.4 ALKPHOS 115 70 67 PROT 5.5* 6.6 5.8* Glucose: Recent Labs 07/11/24194107/12/2410707/12/24 0851 07/12/24 1723 07/12/24195407/13/24 0529 07/14/24 0554 GLUCOSE 138* 77* -- -- -- 71* 96 POCGLU -- -- 100 105* 108* -- -- Lactic Acid: No lab exists for component: LACTA Cardiac Injury Profile: No results for input(s): CKTOTAL, CKMB, TROPONINI in the last 72 hours. Last 24 Hours: Recent Results (from the past 24 hours) Comprehensive metabolic panel Collection Time: 07/14/24 5:54 AM Result Value Ref Range SODIUM 131 (L) 136 - 145 mmol/L POTASSIUM 4.3 3.5 - 5.1 mmol/L CHLORIDE 103 98 - 107 mmol/L CARBON DIOXIDE 25 23 - 31 mmol/L ANION GAP 3 3 - 13 mmol/L UREA NITROGEN 27 (H) 9 - 23 mg/dL CREATININE 1.40 (H) 0.72 - 1.25 mg/dL GLUCOSE 96 82 - 115 mg/dL CALCIUM 8.5 (L) 8.8 - 10.0 mg/dL AST (SGOT) 21 <34 U/L ALT 14 <40 U/L ALKALINE PHOSPHATASE 67 40 - 150 U/L ALBUMIN 2.8 (L) 3.4 - 4.8 g/dL BILIRUBIN, TOTAL 0.4 <1.2 mg/dL TOTAL PROTEIN 5.8 (L) 6.4 - 8.3 g/dL eGFR 54.7 (L) >60.0 mL/min/1.73m*2 CBC Collection Time: 07/14/24 5:54 AM Result Value Ref Range Auto WBC 4.5 3.6 - 10.7 10*3/uL RBC 3.14 (L) 4.40 - 5.90 10*6/uL Hemoglobin 10.2 (L) 13.0 - 18.0 g/dL Hematocrit 29.9 (L) 40.0 - 52.0 % MCV 95.2 77.0 - 99.0 fL MCH 32.5 26.0 - 34.0 pg MCHC 34.1 30.5 - 36.0 % RDW 13.9 11.5 - 15.0 % Platelets 238 140 - 440 10*3/uL MPV 10.0 9.0 - 12.7 fL ASSESSMENT & PLAN Alcohol use disorder Counseled patient on biopsychosocial consequences of substance use. Encouraged professional chemical dependency treatment. Encouraged 12 step meeting attendance. SW to finalize addiction treatment plan with patient: Patient declines any aftercare treatment options - notes he will return to his brother's house and has a court date to attend upcoming Patient would benefit from naltrexone, however, he received a couple doses of Bryan while on the medical floor. Alcohol withdrawal Librium taper to manage alcohol withdrawal symptoms. 5 mg q 4 hours for today. Adjunct thiamine/folic acid CIWA scores per unit protocol. PRN medications for withdrawal symptom management added. Encouraged to participate in all unit activities. MARKOS Hyponatremia Improved Atrial fibrillation HTN COPD Continue home medications Disposition: Discharge anticipated in 1-2 days. This is pending: Resolution of withdrawal symptoms. Medical stabilization. Labs/tests/tasks to review: None. Applied Behavior Specialist recommendations: None. This patient was staffed with Dr. Corbett. Nivia Blair MD electronically signed this at 12:20 PM Cosigned by Rolando Corbett MD at 07/14/2024 4:53 PM EST Associated attestation - Rolando Corbett MD - 07/14/2024 4:53 PM EST I saw and evaluated the patient, participating in the jiménez portions of the service. We reviewed the patient's medical record and test results. I personally spent over half of a total 35 minutes in counseling and discussion with the patient and coordination of care. This included a face to face evaluation and physical examination, and documenting clinical information on the day of visit. I have reviewed the fellow's note. I agree with the fellow s findings and plan, with any additions or corrections listed below: Remains forgetful and slightly confused, but is A/O x3; not delirious. Likely chronic effects of alcohol use. Did not remember what day it was. Did remember he had a court date for alcohol related offense on 07/17 and wants to be able to be discharged by 07/16 AM labs reviewed with patient: Creatine is worse today than yestderday Slightly anemic Hyponatremic as well All likely 2/2 to alcohol use Has bruise/mild abrasion on forehead from recent fall Images from the original note were not included. Addiction Medicine Progress Note Patient: Messi Waldrop Chief Complaint Patient presents with Alcohol Problem Patient with daughter for alcohol detox , last drink yesterday, drink amount varies but most recently drinking 1/2 bottle of vodka daily, denies hx of seizures with withdrawal Problem List: Principal Problem: MARKOS (acute kidney injury) (HCC) Subjective Interim History: Patient was admitted to medical floor for acute kidney injury. Patient was medically cleared for transfer to the detox unit. Please refer to consult note 07/12/2024 for detailed H&P by Dr. Wong. When approached, patient was lying in bed, endorse symptoms of withdrawal including diaphoresis. Overall, withdrawal symptoms are improving. No other physical complaints voiced. Patient is tolerating meals and fluids. Positive signs and/or symptoms of withdrawal observed. No overt events overnight documented. Objective Review of Systems: All ROS was completed and was negative unless stated above Physical Exam: Vitals: 07/12/24 2352 07/13/24 0505 07/13/24 0856 07/13/24 0858 BP: 130/97 (!) 138/119 156/88 156/88 BP Location: Left arm Left arm Patient Position: Sitting Lying Pulse: 70 61 80 80 Resp: 12 16 Temp: 36.7 C (98 F) 36.4 C (97.6 F) TempSrc: Temporal Oral SpO2: 98% 98% Weight: Height: Physical Exam Vitals and nursing note reviewed. Constitutional: General: He is sleeping. Appearance: He is diaphoretic. HENT: Ears: Comments: [place]E does not have hearing aides Cardiovascular: Rate and Rhythm: Normal rate. Pulmonary: Effort: Pulmonary effort is normal. Skin: Coloration: Skin is not pale. Neurological: Mental Status: He is oriented to person, place, and time and easily aroused. Psychiatric: Mood and Affect: Mood normal. Behavior: Behavior normal. Behavior is cooperative. Thought Content: Thought content normal. Judgment: Judgment normal. Medications: apixaban, 5 mg, Oral, BID bacitracin, , Topical, BID chlordiazePOXIDE, 25 mg, Oral, q6h Followed by chlordiazePOXIDE, 10 mg, Oral, q6h Followed by [START ON 07/14/2024] chlordiazePOXIDE, 5 mg, Oral, q6h cyanocobalamin, 500 mcg, Oral, Daily folic acid, 1 mg, Oral, Daily losartan, 50 mg, Oral, Daily metoprolol tartrate, 100 mg, Oral, BID mometasone-formoterol, 2 puff, Inhalation, BID thiamine, 100 mg, Oral, Daily PRN medications: acetaminophen, albuterol, dextrose, dextrose, glucagon (rDNA), glucose, HYDROcodone - acetaminophen OR HYDROcodone - acetaminophen, naloxone, ondansetron ODT OR ondansetron, polyethylene glycol (PEG) 3350 Labs: Last 24 hours: Recent Results (from the past 24 hours) POCT glucose meter Collection Time: 07/12/24 5:23 PM Result Value Ref Range Glucose 105 (H) 70 - 100 mg/dL POCT glucose meter Collection Time: 07/12/24 7:55 PM Result Value Ref Range Glucose 108 (H) 70 - 100 mg/dL Comprehensive metabolic panel Collection Time: 07/13/24 5:29 AM Result Value Ref Range SODIUM 128 (L) 136 - 145 mmol/L POTASSIUM 5.2 (H) 3.5 - 5.1 mmol/L CHLORIDE 100 98 - 107 mmol/L CARBON DIOXIDE 23 23 - 31 mmol/L ANION GAP 5 3 - 13 mmol/L UREA NITROGEN 30 (H) 9 - 23 mg/dL CREATININE 1.32 (H) 0.72 - 1.25 mg/dL GLUCOSE 71 (L) 82 - 115 mg/dL CALCIUM 8.6 (L) 8.8 - 10.0 mg/dL AST (SGOT) 48 (H) <34 U/L ALT 18 <40 U/L ALKALINE PHOSPHATASE 70 40 - 150 U/L ALBUMIN 3.1 (L) 3.4 - 4.8 g/dL BILIRUBIN, TOTAL 0.3 <1.2 mg/dL TOTAL PROTEIN 6.6 6.4 - 8.3 g/dL eGFR 58.8 (L) >60.0 mL/min/1.73m*2 CBC Collection Time: 07/13/24 5:29 AM Result Value Ref Range Auto WBC 4.4 3.6 - 10.7 10*3/uL RBC 3.38 (L) 4.40 - 5.90 10*6/uL Hemoglobin 11.0 (L) 13.0 - 18.0 g/dL Hematocrit 32.4 (L) 40.0 - 52.0 % MCV 95.9 77.0 - 99.0 fL MCH 32.5 26.0 - 34.0 pg MCHC 34.0 30.5 - 36.0 % RDW 14.1 11.5 - 15.0 % Platelets 306 140 - 440 10*3/uL MPV 10.7 9.0 - 12.7 fL Assessment & Plan Alcohol use disorder Counseled patient on biopsychosocial consequences of substance use. Encouraged professional chemical dependency treatment. Encouraged 12 step meeting attendance. SW to finalize addiction treatment plan with patient: Patient not interested in any aftercare treatment options. Patient would benefit from naltrexone, however, he received a couple doses of Bryan while on the medical floor. Alcohol withdrawal Librium taper to manage alcohol withdrawal symptoms. 25 mg q 4 hours for today. Adjunct thiamine/folic acid CIWA scores per unit protocol. PRN medications for withdrawal symptom management added. Encouraged to participate in all unit activities. MARKOS Hyponatremia Improved Atrial fibrillation HTN COPD Continue home medications Disposition: Discharge anticipated in 2-3 days. This is pending: Resolution of withdrawal symptoms. Medical stabilization. Labs/tests/tasks to review: None. Applied Behavior Specialist recommendations: None. LAITH Joshi CNP Addiction Medicine 07/13/2024 at 10:49 AM Note: Narrative portions of note written using [employer] dictation software. Efforts are made to dictate clearly and proofread but errors in dictation still may occur. Please reach out to author with any clarifying questions. Hospitalist Progress Note 07/12/2024 Subjective: Admit Date: 07/11/2024 PCP: John Springer MD Room#: N3-119/N3-190 A BRIEF HOSPITAL COURSE: Messi is a 69 y.o. male with past medical history below who presents with chief complaint listed above. Patient history includes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 Not receiving treatment, Non-compliant with treatment (Patient has medical diagnosis of anxiety and depression. Patient also has history of ADHD. No current medication for mental needs. Past history of being on Zoloft in 2022 prescribed a PCP. No history of engaging with outpatient mental treatment.) Clinical Status (Recent): Hopelessness, Substance abuse or dependence, Agitation or severe anxiety, Major depressive episode, Perceived burden on family or others, Highly impulsive behavior, Aggressive behavior towards others (Risk factors) Protective Factors (Recent): Identifies reasons for living (Protective factors) Describe any suicidal, self-injurious or aggressive behavior (include dates): Patient has past history of psychiatric admissions at [facility] in August 2023. Patient is also been seen in [facility] for psychiatric concerns. Denies any recent or past history of suicide attempts. Patient denies any current SI/HI/AVH. History of passive SI secondary to intoxication as well as history of passive SI which required psychiatric hospitalizations. Patient denies any recent past history of SIB. Patient has medical diagnosis of anxiety and depression. Patient also has history of ADHD. No current medication for mental needs. Past history of being on Zoloft in 2022 prescribed a PCP. No history of engaging with outpatient mental treatment. Plan: Patient is interested in residential treatment or sober living postdischarge in the hospital. [facility] will continue work with patient to establish aftercare plans to patient patient sobriety, needs, resource available local community. Patient however currently has Medicare and only option available would be [facility]. Patient encouraged to engage in all activities that are offered to them while they are on the unit. Patient report needing additional current time. Patient encouraged to seek out [facility] unit staff should they identify any additional needs or concerns. Comment: Please note this report has been produced using speech recognition software and may contain errors related to that system including errors in grammar, punctuation, and spelling, as well as words and phrases that may be inappropriate. If there are any questions or concerns please feel free to contact the dictating provider for clarification. [facility] 07-13-2024 Nurse Note Pt alert and oriented, med compliant, pt denies SI/HI/AVH, NV&D. Pt pleasant and cooperative appears to be forgetful at times, but answers all orientation questions correctly. Pts forehead laceration cleansed with saline and bacitracin applied and new gauze covering sutures with tape. Pt up and steady and walking in the hazel. Pt encouraged to update staff with any change in condition. Will monitor pt for safety. [facility] 07-13-2024 Nurse Note Patient has been more awake this afternoon. He has been out in the day room a few times and social to peers and staff. [facility] 07-13-2024 Nurse Note Patient is alert and oriented x4 now. Earlier this morning when being awoken a few times for medications he did appear disoriented to situation. Asking why he was here on the detox unit and why he was still in the hospital. Patient this morning did need educated on his admission and why he was here. As the day went on he was more oriented on why he was on the detox floor. He has been med compliant. Denies SI/HI/AVH at this time. He is up independently with a steady gait. He has been friendly, cooperative, and social. He has had a good appetite today and drinking well. Will continue to monitor, safety maintained. [facility] 07-13-2024 Plan of care note Problem: Knowledge Deficit Goal: Patient/family/caregiver demonstrates understanding of disease process, treatment plan, medications, and discharge instructions Outcome: Progressing Problem: Potential for Compromised Skin Integrity Goal: Skin Integrity is Maintained or Improved Outcome: Progressing Goal: Nutritional status is improving Outcome: Progressing Problem: Urinary Incontinence Goal: Perineal skin integrity is maintained or improved Outcome: Progressing Problem: Knowledge Deficit Goal: Patient/family/caregiver demonstrates understanding of disease process, treatment plan, medications, and discharge instructions Outcome: Progressing Problem: Potential for Falls Goal: I will remain free of falls Outcome: Progressing Problem: Discharge Barriers Goal: My discharge needs are met Outcome: Progressing Problem: Anxiety Goal: Patient/family understands admission protocols Outcome: Progressing Goal: Attempts to manage anxiety with help Outcome: Progressing Goal: Verbalizes ways to manage anxiety Outcome: Progressing Goal: Implements measures to reduce anxiety Outcome: Progressing Goal: Free from restraint events Outcome: Progressing [facility] 07-13-2024 Note Addiction Medicine Progress Note Patient: Messi Waldrop Chief Complaint Patient presents with Alcohol Problem Patient with daughter for alcohol detox , last drink yesterday, drink amount varies but most recently drinking 1/2 bottle of vodka daily, denies hx of seizures with withdrawal Problem List: Principal Problem: MARKOS (acute kidney injury) ([facility]) Subjective Interim History: Patient was admitted to medical floor for acute kidney injury. Patient was medically cleared for transfer to the detox unit. Please refer to consult note 07/12/2024 for detailed H&P by Dr. Wong. When approached, patient was lying in bed, endorse symptoms of withdrawal including diaphoresis. Overall, withdrawal symptoms are improving. No other physical complaints voiced. Patient is tolerating meals and fluids. Positive signs and/or symptoms of withdrawal observed. No overt events overnight documented. Objective Review of Systems: All ROS was completed and was negative unless stated above Physical Exam: Vitals: 07/12/24 2352 07/13/24 0505 07/13/24 0856 07/13/24 0858 BP: 130/97 (!) 138/119 156/88 156/88 BP Location: Left arm Left arm Patient Position: Sitting Lying Pulse: 70 61 80 80 Resp: 12 16 Temp: 36.7 ?C (98 ?F) 36.4 ?C (97.6 ?F) TempSrc: Temporal Oral SpO2: 98% 98% Weight: Height: Physical Exam Vitals and nursing note reviewed. Constitutional: General: He is sleeping. Appearance: He is diaphoretic. HENT: Ears: Comments: [place] does not have hearing aides Cardiovascular: Rate and Rhythm: Normal rate. Pulmonary: Effort: Pulmonary effort is normal. Skin: Coloration: Skin is not pale. Neurological: Mental Status: He is oriented to person, place, and time and easily aroused. Psychiatric: Mood and Affect: Mood normal. Behavior: Behavior normal. Behavior is cooperative. Thought Content: Thought content normal. Judgment: Judgment normal. Medications: apixaban, 5 mg, Oral, BID bacitracin, , Topical, BID chlordiazePOXIDE, 25 mg, Oral, q6h Followed by chlordiazePOXIDE, 10 mg, Oral, q6h Followed by [START ON 07/14/2024] chlordiazePOXIDE, 5 mg, Oral, q6h cyanocobalamin, 500 mcg, Oral, Daily folic acid, 1 mg, Oral, Daily losartan, 50 mg, Oral, Daily metoprolol tartrate, 100 mg, Oral, BID mometasone-formoterol, 2 puff, Inhalation, BID thiamine, 100 mg, Oral, Daily PRN medications: acetaminophen, albuterol, dextrose, dextrose, glucagon (rDNA), glucose, HYDROcodone - acetaminophen OR HYDROcodone - acetaminophen, naloxone, ondansetron ODT OR ondansetron, polyethylene glycol (PEG) 3350 Labs: Last 24 hours: Recent Results (from the past 24 hours) POCT glucose meter Collection Time: 07/12/24 5:23 PM Result Value Ref Range Glucose 105 (H) 70 - 100 mg/dL POCT glucose meter Collection Time: 07/12/24 7:55 PM Result Value Ref Range Glucose 108 (H) 70 - 100 mg/dL Comprehensive metabolic panel Collection Time: 07/13/24 5:29 AM Result Value Ref Range SODIUM 128 (L) 136 - 145 mmol/L POTASSIUM 5.2 (H) 3.5 - 5.1 mmol/L CHLORIDE 100 98 - 107 mmol/L CARBON DIOXIDE 23 23 - 31 mmol/L ANION GAP 5 3 - 13 mmol/L UREA NITROGEN 30 (H) 9 - 23 mg/dL CREATININE 1.32 (H) 0.72 - 1.25 mg/dL GLUCOSE 71 (L) 82 - 115 mg/dL CALCIUM 8.6 (L) 8.8 - 10.0 mg/dL AST (SGOT) 48 (H) <34 U/L ALT 18 <40 U/L ALKALINE PHOSPHATASE 70 40 - 150 U/L ALBUMIN 3.1 (L) 3.4 - 4.8 g/dL BILIRUBIN, TOTAL 0.3 <1.2 mg/dL TOTAL PROTEIN 6.6 6.4 - 8.3 g/dL eGFR 58.8 (L) >60.0 mL/min/1.73m*2 CBC Collection Time: 07/13/24 5:29 AM Result Value Ref Range Auto WBC 4.4 3.6 - 10.7 10*3/uL RBC 3.38 (L) 4.40 - 5.90 10*6/uL Hemoglobin 11.0 (L) 13.0 - 18.0 g/dL Hematocrit 32.4 (L) 40.0 - 52.0 % MCV 95.9 77.0 - 99.0 fL MCH 32.5 26.0 - 34.0 pg MCHC 34.0 30.5 - 36.0 % RDW 14.1 11.5 - 15.0 % Platelets 306 140 - 440 10*3/uL MPV 10.7 9.0 - 12.7 fL Assessment & Plan Alcohol use disorder Counseled patient on biopsychosocial consequences of substance use. Encouraged professional chemical dependency treatment. Encouraged 12 step meeting attendance. SW to finalize addiction treatment plan with patient: Patient not interested in any aftercare treatment options. Patient would benefit from naltrexone, however, he received a couple doses of Bryan while on the medical floor. Alcohol withdrawal Librium taper to manage alcohol withdrawal symptoms. 25 mg q 4 hours for today. Adjunct thiamine/folic acid CIWA scores per unit protocol. PRN medications for withdrawal symptom management added. Encouraged to participate in all unit activities. MARKOS Hyponatremia Improved Atrial fibrillation HTN COPD Continue home medications Disposition: Discharge anticipated in 2-3 days. This is pending: Resolution of withdrawal symptoms. Medical stabilization. Labs/tests/tasks to review: None. Applied Behavior Specialist recommendations: None. James Geronimo APRN - JESUS (more content not included)... [facility] 07-13-2024 Plan of care note Problem: Knowledge Deficit Goal: Patient/family/caregiver demonstrates understanding of disease process, treatment plan, medications, and discharge instructions 07/13/2024604 by Concepcion Priest RN Outcome: Progressing 07/13/202454 by Concepcion Priest RN Outcome: Progressing Problem: Potential for Compromised Skin Integrity Goal: Skin Integrity is Maintained or Improved 07/13/2024604 by Concepcion Priest RN Outcome: Progressing 07/13/202454 by Concepcion Priest RN Outcome: Progressing Goal: Nutritional status is improving 07/13/2024604 by Concepcion Priest RN Outcome: Progressing 07/13/202454 by Concepcion Priest RN Outcome: Progressing Problem: Urinary Incontinence Goal: Perineal skin integrity is maintained or improved 07/13/2024604 by Concepcion Priest RN Outcome: Progressing 07/13/2024 0055 by Concepcion Priest RN Outcome: Progressing Problem: Knowledge Deficit Goal: Patient/family/caregiver demonstrates understanding of disease process, treatment plan, medications, and discharge instructions 07/13/2024 06 by Concepcion Priest RN Outcome: Progressing 07/13/2024 005 by Concepcion Priest RN Outcome: Progressing Problem: Potential for Falls Goal: I will remain free of falls 07/13/2024 06 by Concepcion Priest RN Outcome: Progressing 07/13/2024 005 by Concepcion Priest RN Outcome: Progressing Problem: Discharge Barriers Goal: My discharge needs are met 07/13/2024 06 by Concepcion Priest RN Outcome: Progressing 07/13/2024 005 by Concepcion Priest RN Outcome: Progressing Problem: Anxiety Goal: Patient/family understands admission protocols 07/13/2024 06 by Concepcion Priest RN Outcome: Progressing 07/13/2024 005 by Concepcion Priest RN Outcome: Progressing Goal: Attempts to manage anxiety with help 07/13/2024 06 by Concepcion Priest RN Outcome: Progressing 07/13/2024 005 by Concepcion Priest RN Outcome: Progressing Goal: Verbalizes ways to manage anxiety 07/13/2024 06 by Concepcion Priest RN Outcome: Progressing 07/13/2024 005 by Concepcion Priest RN Outcome: Progressing Goal: Implements measures to reduce anxiety 07/13/2024 06 by Concepcion Priest RN Outcome: Progressing 07/13/2024 005 by Concepcion Priest RN Outcome: Progressing Goal: Free from restraint events 07/13/2024 06 by Concepcion Priest RN Outcome: Progressing 07/13/2024 005 by Concepcion Priest RN Outcome: Progressing [facility] 07-13-2024 Nurse Note Former smoker [facility] 07-13-2024 Plan of care note Problem: Knowledge Deficit Goal: Patient/family/caregiver demonstrates understanding of disease process, treatment plan, medications, and discharge instructions Outcome: Progressing Problem: Potential for Compromised Skin Integrity Goal: Skin Integrity is Maintained or Improved Outcome: Progressing Goal: Nutritional status is improving Outcome: Progressing Problem: Urinary Incontinence Goal: Perineal skin integrity is maintained or improved Outcome: Progressing Problem: Knowledge Deficit Goal: Patient/family/caregiver demonstrates understanding of disease process, treatment plan, medications, and discharge instructions Outcome: Progressing Problem: Potential for Falls Goal: I will remain free of falls Outcome: Progressing Problem: Discharge Barriers Goal: My discharge needs are met Outcome: Progressing Problem: Anxiety Goal: Patient/family understands admission protocols Outcome: Progressing Goal: Attempts to manage anxiety with help Outcome: Progressing Goal: Verbalizes ways to manage anxiety Outcome: Progressing Goal: Implements measures to reduce anxiety Outcome: Progressing Goal: Free from restraint events Outcome: Progressing [facility] 07-13-2024 Nurse Note Patient stated he was drinking approximately a 6 pack of beer and some liquor roughly 3 - 4 days per week. Last use 07/10. Skin check done. Rules explained. Forms signed. Albuterol inhaler given for wheezing. Pt up and steady. Pt denies SI/HI/AVH at this time. Pt reports a decreased appetite recently. Pt IV is clean, dry and intact. [facility] 07-12-2024 Nurse Note Patient educated on the policy regarding belongings on 4E. Reviewed patient belongings with patient and security at bedside, with patient consent. Security zip-tied patient belongings. [facility] 07-12-2024 Nurse Note Report given to 4N receiving nurse. Pt prepared for transfer, awaiting transport. [facility] 07-12-2024 Note Hospitalist Progress Note 07/12/2024 Subjective: Admit Date: 07/11/2024 PCP: John Springer MD Room#: N3-253/N3-997 A BRIEF HOSPITAL COURSE: Messi is a 69 y.o. male with past medical history below who presents with chief complaint listed above. Patient history includes anxiety, COPD, HTN, HLD and A-fib on Eliquis. Reports consumption of 9% alcoholic drinks and/or one half bottle of vodka daily-last drink 24 hours ago. Patient reports falling 3 days ago to right side-reports head strike but denies loss of consciousness. Initial ED workup notes sodium level of 129. BUN/creat at 23/1.49. Glucose of 138. Mild elevation of AST at 43. Troponin WNL with negative delta. WBCs WNL at 5.8. ECG shows A-fib with PVCs-HR initially at 132 bpm. Vital signs note normotensive pressures, HR initially tachycardic in 120s-130s however has improved to low 100s with initial management. Patient received 1 L fluid bolus, 97 mg phenobarbital as part of initial ED management. Pt admitted and ADM consulted. Renal function improved with IVF Interval History: 07/12: Pt seen and examined. States he is hoping to detox before 07/[address] a [address] date on 07/17. Overall feels good today and no real complaints. 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 COPD (chronic obstructive pulmonary disease) ([facility]) Elevated blood pressure Essential (primary) hypertension 07/08/2017 Hyperlipidemia Indigestion Insomnia Prediabetes Umbilical hernia LABS: CBC: Recent Labs 07/11/24194107/12/24 0108 WBC 5.8 5.2 RBC 3.88* 3.17* HGB 12.6* 10.3* HCT 37.0* 30.2* MCV 95.4 95.3 RDW 14.0 13.9 PLT 319 266 BMP: Recent Labs 07/11/24194107/12/24 0108 NA 129* 131* K 4.1 3.9 CL 95* 104 CO2 26 24 BUN 23 20 CREATININE 1.49* 1.23 GLUCOSE 138* 77* CALCIUM 8.9 7.5* ANIONGAP 8 3 LIVER PROFILE: Recent Labs 07/11/24194107/12/24 0108 AST 43* 33 ALT 25 15 BILITOT 0.8 0.5 ALKPHOS 81 115 PROT 6.9 5.5* PT/INR: No results for input(s): PROTIME, INR in the last 72 hours. CARDIAC ENZYMES: No results for input(s): TROPONINI in the last 72 hours. Procalcitonin: No results found for: PROCAL COVID-19 PCR: No results for input(s): COVID19 in the last 72 hours. Objective: Vitals: BP 132/89 (BP Location: Right arm, Patient Position: Lying) Pulse 79 Temp 36.6 ?C (97.9 ?F) (Temporal) Resp 16 Ht 5' 9 (1.753 m) Wt 160 lb (72.6 kg) SpO2 98% BMI 23.63 kg/m? Pulse Ox: SpO2 Av.2 % Min: 98 % Max: 100 % Supplemental O2: GENERAL: Lying in bed comfortably, awake and alert, eating breakfast HEENT: normocephalic, non-traumatic, MMM NECK: supple, trachea midline HEART: RRR, normal S1 and S2 LUNGS: non labored, no wheeze ABD: soft, non-distended MSK: no edema noted SKIN: warm, dry PSYCH: appropriate affect Medications: Scheduled PRN apixaban, 5 mg, Oral, BID bacitracin, , Topical, BID chlordiazePOXIDE, 25 mg, Oral, q6h cyanocobalamin, 500 mcg, Oral, Daily folic acid, 1 mg, Oral, Daily losartan, 50 mg, Oral, Daily metoprolol tartrate, 100 mg, Oral, BID mometasone-formoterol, 2 puff, Inhalation, BID thiamine, 100 mg, Oral, Daily PRN medications: acetaminophen, albuterol, dextrose, dextrose, glucagon (rDNA), glucose, HYDROcodone - acetaminophen OR HYDROcodone - acetaminophen, LORazepam OR LORazepam OR LORazepam OR LORazepam OR LORazepam OR LORazepam OR LORazepam OR LORazepam, naloxone, ondansetron ODT OR ondansetron, polyethylene glycol (PEG) 3350 Continuous sodium chloride, 75 mL/hr, Last Rate: 75 mL/hr (07/12/24 0956) Assessment Data: Acute, acute on chronic, unstable/uncontrolled chronic problems/diagnoses: ETOH detox Renal insufficiency-resolved Hyponatremia - improved, clinically insignificant Anemia - Hgb drop 12->10 likely dilutional due to IVF. No bleeding. Baseline ~10 Stable chronic problems affecting care, new non-acute diagnoses: PAF HTN COPD Nicotine use - uses nicotine pouches Plan As a result of the above findings & factors, the following mgmt was pursued: - cont meds as ordered - am labs, replace lytes prn - PT/OT/CM/SW - delirium precautions: increase activity and limit nighttime disturbances - DVT prophylaxis: encourage ambulation and already anticoagulated Advance Directive: Full Code Anticipated Discharge - Date - per addiction team - medically stable to transfer to detox when bed available - Location - Home - Pending the following - detox 35 minutes spent in chart review, lab and radiology interpretation, patient eval, counseling and (more content not included)... [facility] 07-12-2024 Consult note Associated Order (s): IP CONSULT TO ADDICTION [facility] Consult service H&P Admit Date: 07/11/2024 Primary Care Physician: John Springer MD ] Chief Complaint Patient presents with Alcohol Problem Patient with daughter for alcohol detox , last drink yesterday, drink amount varies but most recently drinking 1/2 bottle of vodka daily, denies hx of seizures with withdrawal Substance dependence disorder History of Present Illness Messi Waldrop is a 69 y.o. year old male with a history of alcohol use disorder Patient was seen earlier this year for an admission that required alcohol detox however after discharge she resumed drinking right away He drinks was equivalent to 12 of the 12 ounce beers daily Patient is a his last drink was 3 days ago Patient denies any history withdrawal seizures Denies any history of DTs Denies history of other drug use He had DUIs in the past Patient states that he only started drinking 5 to 6 years ago after his 26 patient stated that he could not get over that since then years marriage ended by his leaving him Patient denies any history of IV drug use Denies any history of overdoses Patient denies any history of psych hospitalization Denies any suicidal or homicidal ideation currently remotely Denies any childhood trauma or PTSD however from the way he is talking about his leaving him probably he has undiagnosed PTSD Upon admission his urine drug screen was negative and his ethanol level was negative as well which is explained by his last drink was more than 3 days ago Patient had an incidental fall he thinks it is related to his inner ear after he went through chemotherapy for his throat cancer Substance Use Disorder Criteria 1. Taking substance in larger amounts and/or for longer than intended [x] 2. Wanting to cut down or quit substance use but not being able to [x] 3. Spending a lot of time obtaining the substance [x] 4. Craving or a strong desire to use substance [x] 5. Repeatedly doesn't carry out major obligations due to substance use [x] 6. Using despite recurring social or interpersonal problems caused by substance use [x] 7. Reducing social, occupational, or recreational activities due to substance use [x] 8. Recurrent use of substance in physically hazardous situations [x] 9. Consistent use of substance despite recurrent physical or psychological difficulties [x] 10. Tolerance (increased amounts to achieve intoxication or diminished effect) [x] 11. Withdrawal syndrome or the substance is used to avoid withdrawal [x] 2-3 = mild; 4-5 = moderate; 6 or >6 = severe substance use disorder Remaining History Past Medical History: Diagnosis Date ADHD (attention deficit hyperactivity disorder) Anxiety Cancer ([facility]/HCC) ([facility]) 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 COPD (chronic obstructive pulmonary disease) ([facility]) Elevated blood pressure Essential (primary) hypertension 07/08/2017 Hyperlipidemia Indigestion Insomnia Prediabetes Umbilical hernia Past Surgical History: Procedure Laterality Date COLONOSCOPY DENTAL SURGERY EYE SURGERY Bilateral cataract surgery LARYNGOSCOPY 03/04/2020 fine needle aspiration biopsy right neck mass and right base of tounge biopsy - dr kenya PATINO TONSILLECTOMY (HISTORICAL) Right 03/04/2020 dr steiner Family History Problem Relation Name Age of Onset Diabetes Mother Diabetes Sister Diabetes Brother Social History Socioeconomic History Marital status: Single Spouse name: Not on file Number of children: Not on file Years of education: Not on file Highest education level: Not on file Occupational History Not on file Tobacco Use Smoking status: Former Current packs/day: 0.00 Types: Cigarettes Quit date: 09/16/1997 Years since quittin.8 Passive exposure: Past Smokeless tobacco: Current Tobacco comments: On Smokeless Tobacco Vaping Use Vaping status: Never Used Substance and Sexual Activity Alcohol use: Yes Alcohol/week: 42.0 standard drinks of alcohol Drug use: No Sexual activity: Yes Other Topics Concern Not on file Social History Narrative Merged History Encounter Social Drivers of Health Financial Resource Strain: Low Risk (10/26/2021) Received from [facility] Overall Financial Resource Strain (CARDIA) Difficulty of Paying Living Expenses: Not hard at all Food Insecurity: No Food Insecurity (10/26/2021) Received from [facility] Hunger Vital Sign Worried About Running Out of Food in the Last Year: Never true Ran Out of Food in the Last Year: Never true Transportation Needs: No Transportation Needs (09/30/2020) Received from [facility] PRAPARE - Transportation Lack of Transportation (Medical): No Lack of Transportation (Non-Medical): No Physical Activity: Not on file Stress: Not on file Social Connections: Not on file Intimate Partner Violence: Not At Risk (07/12/2024) Humiliation, Afraid, Rape, and Kick questionnaire Fear of Current or Ex-Partner: No Emotionally Abused: No Physically Abused: No Sexually Abused: No Housing Stability: Unknown (07/12/2024) Housing Stability Vital Sign Unable to Pay for Housing in the Last Year: No Number of Times Moved in the Last Year: Not on file Homeless in the Last Year: Not on file Allergies: Patient has no known allergies. Review of Systems Denies suicidal or homicidal ideation denies tactile auditory or visual hallucinations All of systems ROS was completed and was negative unless stated above Physical Exam Vitals: 07/12/24 0108 07/12/24 0524 07/12/24 0532 07/12/24 0756 BP: (!) 139/94 108/77 108/77 132/89 BP Location: Right arm Patient Position: Lying Pulse: 100 105 105 79 Resp: 18 16 16 Temp: 36.6 C (97.9 F) TempSrc: Temporal SpO2: 98% 100% 98% Weight: Height: General appearance: Cooperative, no distress, appears stated age, non-toxic. Skin: Skin color, temperature, turgor normal. No rashes or lesions. ENMT: Conjunctivae/corneas clear. PERRL, EOM's intact. Nares normal. Septum midline. Mucosa normal. No drainage or sinus tenderness. Lips, mucosa, and tongue normal. Teeth and gums normal. Neck: Normal range of motion. Thyroid normal. No masses or lymphadenopathy noted. Respiratory: Clear to auscultation bilaterally. Non-labored breathing. Cardiovascular: Regular rate and rhythm. S1, S2 normal. No murmur, click, rub or gallop. Distal pulses intact in 4 extremities. Gastrointestinal: Soft, non-tender. Bowel sounds normal. No masses, no organomegaly. Neurologic: CN II-XII grossly intact. Normal sensation. Normal symmetric reflexes. Normal coordination and gait. Musculoskeletal: Normal muscle strength and tone in 4 distal extremities. Normal range of motion in 4 distal extremities. Psychiatric: Alert and oriented to person, place, and time. Insight: fair. Judgment: fair. Diaphoresis: 0/10 Restlessness: 0/10 Palmar Erythema 0/10 Tongue Fasciculations: 0/10 Extremity Tremors: 0/10 Imaging/Labs/Meds @RISRSLT@ Recent Results (from the past 48 hours) ECG 12 lead Collection Time: 07/11/24 5:46 PM Result Value Ref Range Heart Rate 132 bpm QRSD Interval 88 ms QT Interval 322 ms QTC Interval 477 ms P [place] 0 degrees QRS [place] 17 degrees T Wave [place] 38 degrees NE Interval 0 ms CBC auto differential Collection Time: 07/11/24 7:42 PM Result Value Ref Range Auto WBC 5.8 3.6 - 10.7 10*3/uL RBC 3.88 (L) 4.40 - 5.90 10*6/uL Hemoglobin 12.6 (L) 13.0 - 18.0 g/dL Hematocrit 37.0 (L) 40.0 - 52.0 % MCV 95.4 77.0 - 99.0 fL MCH 32.5 26.0 - 34.0 pg MCHC 34.1 30.5 - 36.0 % RDW 14.0 11.5 - 15.0 % Platelets 319 140 - 440 10*3/uL MPV 9.6 9.0 - 12.7 fL nRBC 0.0 0.0 - 2.0 /100 WBCs Neutrophils Relative 81.9 38.0 - 82.0 % Lymphocytes Relative 7.6 (L) 15.0 - 45.0 % Monocytes Relative 8.1 5.0 - 13.0 % Eosinophils Relative 1.2 0.0 - 6.0 % Basophils Relative 0.7 0.0 - 2.0 % Immature Grans % 0.5 0.0 - 2.0 % Neutrophils Absolute 4.7 1.8 - 7.5 10*3/uL Lymphocytes Absolute 0.4 (L) 1.0 - 4.3 10*3/uL Monocytes Absolute 0.5 0.0 - 0.9 10*3/uL Eosinophils Absolute 0.1 0.0 - 0.5 10*3/uL Basophils Absolute 0.0 0.0 - 0.2 10*3/uL Immature Grans Absolute 0.0 <0.1 10*3/uL Comprehensive metabolic panel Collection Time: 07/11/24 7:42 PM Result Value Ref Range SODIUM 129 (L) 136 - 145 mmol/L POTASSIUM 4.1 3.5 - 5.1 mmol/L CHLORIDE 95 (L) 98 - 107 mmol/L CARBON DIOXIDE 26 23 - 31 mmol/L ANION GAP 8 3 - 13 mmol/L UREA NITROGEN 23 9 - 23 mg/dL CREATININE 1.49 (H) 0.72 - 1.25 mg/dL GLUCOSE 138 (H) 82 - 115 mg/dL CALCIUM 8.9 8.8 - 10.0 mg/dL AST (SGOT) 43 (H) <34 U/L ALT 25 <40 U/L ALKALINE PHOSPHATASE 81 40 - 150 U/L ALBUMIN 3.5 3.4 - 4.8 g/dL BILIRUBIN, TOTAL 0.8 <1.2 mg/dL TOTAL PROTEIN 6.9 6.4 - 8.3 g/dL eGFR 50.8 (L) >60.0 mL/min/1.73m*2 Ethanol Collection Time: 07/11/24 7:42 PM Result Value Ref Range ETHANOL IN SER/PLAS <10 <10 mg/dL Magnesium Collection Time: 07/11/24 7:42 PM Result Value Ref Range MAGNESIUM 2.0 1.6 - 2.6 mg/dL Serial Troponin, High Sensitivity Collection Time: 07/11/24 7:42 PM Result Value Ref Range Troponin HS, Serial Baseline 9 <=35 ng/L Drug screen panel, emergency Collection Time: 07/11/24 7:46 PM Result Value Ref Range AMPHETAMINE SCREEN Negative BARBITURATES SCREEN Negative BENZODIAZEPINE SCREEN Negative COCAINE METAB. SCREEN Negative METHADONE SCREEN Negative OPIATES SCREEN Negative OXYCODONE SCREEN Negative PHENCYCLIDINE SCREEN Negative FENTANYL SCREEN, UR QUAL Negative SARS-CoV-2 Antigen Collection Time: 07/11/24 7:47 PM Specimen: Nasal; Swab Result Value Ref Range SARS-CoV-2 Antigen Negative Negative Troponin, High Sensitivity, Serial, Second Test Collection Time: 07/12/24 1:08 AM Result Value Ref Range Troponin HS, Serial Second 6 <=35 ng/L Troponin HS Delta, Baseline to Second -3 <=2 ng/L Comprehensive metabolic panel Collection Time: 07/12/24 1:08 AM Result Value Ref Range SODIUM 131 (L) 136 - 145 mmol/L POTASSIUM 3.9 3.5 - 5.1 mmol/L CHLORIDE 104 98 - 107 mmol/L CARBON DIOXIDE 24 23 - 31 mmol/L ANION GAP 3 3 - 13 mmol/L UREA NITROGEN 20 9 - 23 mg/dL CREATININE 1.23 0.72 - 1.25 mg/dL GLUCOSE 77 (L) 82 - 115 mg/dL CALCIUM 7.5 (L) 8.8 - 10.0 mg/dL AST (SGOT) 33 <34 U/L ALT 15 <40 U/L ALKALINE PHOSPHATASE 115 40 - 150 U/L ALBUMIN 2.8 (L) 3.4 - 4.8 g/dL BILIRUBIN, TOTAL 0.5 <1.2 mg/dL TOTAL PROTEIN 5.5 (L) 6.4 - 8.3 g/dL eGFR 63.9 >60.0 mL/min/1.73m*2 CBC Collection Time: 07/12/24 1:08 AM Result Value Ref Range Auto WBC 5.2 3.6 - 10.7 10*3/uL RBC 3.17 (L) 4.40 - 5.90 10*6/uL Hemoglobin 10.3 (L) 13.0 - 18.0 g/dL Hematocrit 30.2 (L) 40.0 - 52.0 % MCV 95.3 77.0 - 99.0 fL MCH 32.5 26.0 - 34.0 pg MCHC 34.1 30.5 - 36.0 % RDW 13.9 11.5 - 15.0 % Platelets 266 140 - 440 10*3/uL MPV 9.9 9.0 - 12.7 fL Magnesium Collection Time: 07/12/24 1:08 AM Result Value Ref Range MAGNESIUM 1.7 1.6 - 2.6 mg/dL POCT glucose meter Collection Time: 07/12/24 8:51 AM Result Value Ref Range Glucose 100 70 - 100 mg/dL apixaban, 5 mg, Oral, BID bacitracin, , Topical, BID cyanocobalamin, 500 mcg, Oral, Daily folic acid, 1 mg, Oral, Daily losartan, 50 mg, Oral, Daily metoprolol tartrate, 100 mg, Oral, BID mometasone-formoterol, 2 puff, Inhalation, BID thiamine, 100 mg, Oral, Daily PRN medications: acetaminophen, albuterol, dextrose, dextrose, glucagon (rDNA), glucose, HYDROcodone - acetaminophen OR HYDROcodone - acetaminophen, LORazepam OR LORazepam OR LORazepam OR LORazepam OR LORazepam OR LORazepam OR LORazepam OR LORazepam, naloxone, ondansetron ODT OR ondansetron, polyethylene glycol (PEG) 3350 @[id number]@ Plan 1. Alcohol use disorder severe with mild withdrawals Patient last drink was 3 days ago Will continue thiamine and folic acid Will put him on a taper dose of librium Will avoid phenobarb since he is on xarelto If he is stable we will consider transferring him to the detox unit Discussed with the patient options of MAT to help him with his alcohol cessation after discharge Remaining medical management per primary team. Will follow. Ajith Wong MD, MD Addiction Medicine 07/12/2024 at 11:[address] [facility] Work Phone: 07-12-2024 Telephone encounter Note Name of Caller: Jaz Contact Physician requesting Consult: Junior Jaramillo Patient Location (facility name, room, bed number): [address] BED A Patient Diagnosis/Reason for Consult:ALCOHOL WITHDRAW Provider being paged: Shein Time page was sent: 7:57 AM Department of provider being paged: [facility] Behavioral Health Page Content: Message sent via Secure Chat ROUTINE CONSULT JAZ Echevarria WELLS [phone] RE PATIENT MESSI NOVEMBER [address] A REFERRING DOCTOR LANG [facility] 07-12-2024 Miscellaneous Notes Name of Caller: Jaz Contact Physician requesting Consult: Junior Jaramillo Patient Location (facility name, room, bed number): [address] 355 BED A Patient Diagnosis/Reason for Consult:ALCOHOL WITHDRAW Provider being paged: Shein Time page was sent: 7:57 AM Department of provider being paged: [facility] Behavioral Health Page Content: Message sent via Secure Chat ROUTINE CONSULT JAZ Echevarria WELLS [phone] RE PATIENT MESSI NOVEMBER [address] A REFERRING DOCTOR ELLA documented in this encounter [facility] 07-12-2024 Emergency department Note Provided wound dressing on this pt on his forehead, provided food and drink as requested as well. [facility] 07-12-2024 Emergency department Note Provided wound dressing on this pt on his forehead, provided food and drink as requested as well. Pt pacing around the lobby, attempting to involve himself in other patient's business. Pt asked to take a seat and please crowd other patients. Security and other staff notified Emergency Department Encounter [facility] EMERGENCY DEPT Patient: Messi Waldrop : 1955 Date of Evaluation: 07/11/2024 ED Provider: Raymond Hernandez MD I saw the patient as the Clinician in Triage and performed a brief history and physical exam, established acuity, and ordered appropriate tests to develop basic plan of care. Patient will be seen by JAH, resident and/or my physician partner who will evaluate the patient. I wore appropriate PPE for the entirety of this encounter. Brief HPI: In brief, Messi Waldrop is a 69 y.o. that presents with chief complaint of needing treatment for alcohol abuse. States last drink was yesterday. History of drinking at least a half a bottle of vodka daily. He did have a recent fall few days ago, hitting his forehead. Focused Physical exam: Awake and alert. He has older bruising on the lower forehead area and bilateral orbits. Pupils react equally. No obvious cervical spine tenderness. Lungs clear to auscultation. Heart irregular rhythm, tachycardic. Abdomen soft nondistended without focal tenderness. Extremities with equal distal pulses. Neurologic exam has no motor or sensory deficits in all 4 extremities. Plan/MDM: Evaluate for head injury. Evaluate his suspected atrial fibrillation, medical clearance evaluation for detox treatment Patients symptoms are consistent with sepsis, severe sepsis, or septic shock (If yes use .sepsiscoremeasure): no Please see subsequent provider note for further details and disposition (Comment: Please note this report has been produced using speech recognition software and may contain errors related to that system including errors in grammar, punctuation, and spelling as well as words and phrases that may be inappropriate. If there are any questions or concerns please feel free to contact the dictating provider for clarification) Raymond Hernandez MD Acute Care [facility] Raymond Hernandez MD [id number] EMERGENCY DEPARTMENT ENCOUNTER Pt Name: Messi Waldrop Birthdate 1955 Date of evaluation: 07/11/2024 ED Provider: Maggie Chairez DO CHIEF COMPLAINT Chief Complaint Patient presents with Alcohol Problem Patient with daughter for alcohol detox , last drink yesterday, drink amount varies but most recently drinking 1/2 bottle of vodka daily, denies hx of seizures with withdrawal HISTORY OF PRESENT ILLNESS (Location/Symptom, Timing/Onset, Context/Setting, Quality, Duration, Modifying Factors, Severity) Note limiting factors. I wore appropriate PPE for the entirety of this encounter. HPI Messi Waldrop is a 69 y.o. who presents to the emergency department with chief complaint of seeking detox from alcohol. Last drink was last night. Says he drinks a varied amount but typically its about a sixpack of 9% [employer] or half bottle of vodka every day. Denies history of withdrawal seizures. Says he has gone through detox in the past. Denies any other recreational drug use. Patient did admit to a fall several days ago and currently complaining of right rib pain. Denies headache loss of consciousness. Is on Eliquis for atrial fibrillation. Nursing Notes were reviewed. Limitations to history: None Outside historians: None REVIEW OF SYSTEMS Review of Systems Pertinent positives and negatives as per HPI. 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 COPD (chronic obstructive pulmonary disease) ([facility]) Elevated blood pressure Essential (primary) hypertension 07/08/2017 Hyperlipidemia Indigestion Insomnia Prediabetes Umbilical hernia SURGICAL HISTORY Past Surgical History: Procedure Laterality Date COLONOSCOPY DENTAL SURGERY EYE SURGERY Bilateral cataract surgery LARYNGOSCOPY 03/04/2020 fine needle aspiration biopsy right neck mass and right base of tounge biopsy - dr kenya PATINO TONSILLECTOMY (HISTORICAL) Right 03/04/2020 dr steiner CURRENT MEDICATIONS Previous Medications ALBUTEROL 108 (90 BASE) MCG/ACT INHALER Inhale 2 puffs every 4 hours as needed. APIXABAN (ELIQUIS) 5 MG TABLET Take 1 tablet (5 mg) by mouth 2 times daily. BUDESONIDE-FORMOTEROL (SYMBICORT) 160-4.5 MCG/ACT INHALER Inhale 2 puffs in the morning and at bedtime. CALCIUM CARBONATE (OS-ALTAGRACIA) 1250 (500 CA) MG CHEWABLE TABLET Chew 1 tablet. CHOLECALCIFEROL (VITAMIN D-3) 25 MCG (1000 UT) TABLET Take 1,000 Units by mouth in the morning. CYANOCOBALAMIN (VITAMIN B-12) 500 MCG TABLET Take 1 tablet (500 mcg) by mouth daily. FOLIC ACID (FOLVITE) 400 MCG TABLET Take 1 tablet (0.4 mg) by mouth daily. LOSARTAN (COZAAR) 50 MG TABLET Take 1 tablet (50 mg) by mouth daily. METOPROLOL TARTRATE (LOPRESSOR) 100 MG TABLET Take 1 tablet (100 mg) by mouth 2 times daily. MULTIPLE VITAMINS-MINERALS ER PO Take by mouth. PYRIDOXINE (VITAMIN B-6) 25 MG TABLET Take 1 tablet (25 mg) by mouth daily. ALLERGIES Patient has no known allergies. FAMILY HISTORY Family History Problem Relation Name Age of Onset Diabetes Mother Diabetes Sister Diabetes Brother SOCIAL HISTORY Social History Socioeconomic History Marital status: Single Tobacco Use Smokeless tobacco: Current Substance and Sexual Activity Alcohol use: Yes Alcohol/week: 42.0 standard drinks of alcohol Drug use: No Social History Narrative Merged History Encounter Social Drivers of Health Financial Resource Strain: Low Risk (10/26/2021) [facility] [employer] [facility] Overall Financial Resource Strain (CARDIA) Difficulty of Paying Living Expenses: Not hard at all Food Insecurity: No Food Insecurity (10/26/2021) [facility] [employer] [facility] Hunger Vital Sign Worried About Running Out of Food in the Last Year: Never true Ran Out of Food in the Last Year: Never true Transportation Needs: No Transportation Needs (09/30/2020) [facility] [employer] [facility] PRAPARE - Transportation Lack of Transportation (Medical): No Lack of Transportation (Non-Medical): No SCREENINGS PHYSICAL EXAM ED Triage Vitals [07/11/24 1729] Temp Heart Rate Resp BP 36.9 C (98.5 F) (!) 115 16 (!) 128/92 SpO2 Temp Source Heart Rate Source Patient Position 100 % Temporal Monitor -- BP Location FiO2 (%) -- -- Physical Exam Vitals reviewed. Constitutional: General: He is not in acute distress. Appearance: He is not ill-appearing. HENT: Head: Normocephalic. Comments: Abrasions noted to the face Eyes: Extraocular Movements: Extraocular movements intact. Conjunctiva/sclera: Conjunctivae normal. Pupils: Pupils are equal, round, and reactive to light. Cardiovascular: Rate and Rhythm: Regular rhythm. Tachycardia present. Pulses: Normal pulses. Heart sounds: Normal heart sounds. No murmur heard. Pulmonary: Effort: Pulmonary effort is normal. Breath sounds: Normal breath sounds. No wheezing, rhonchi or rales. Abdominal: Palpations: Abdomen is soft. Tenderness: There is no abdominal tenderness. Musculoskeletal: General: Tenderness (right ribs) present. Normal range of motion. Cervical back: Normal range of motion. Skin: General: Skin is warm. Neurological: General: No focal deficit present. Mental Status: He is alert. Mental status is at baseline. Motor: No weakness. Gait: Gait normal. DIAGNOSTIC RESULTS Procedures/EKG: EKG was reviewed by myself. Physician EKG interpretation can be found in [facility] RADIOLOGY (Per Emergency Physician): Interpretation per the Radiologist below, if available at the time of this note: XR ribs 2 views right w chest anteroposterior Final Result No displaced rib fractures are seen within the right hemithorax. Report Dictated on Electronically Signed By: Junior Vera MD Electronically Signed Date/Time: 07/11/2024 6:[address] head wo IV contrast Final Result 1. No acute intracranial finding. Suspect chronic small vessel ischemic changes. Report Dictated on Electronically Signed By: Johnie Mccauley MD Electronically Signed Date/Time: 07/11/2024 6:[address] cervical spine wo IV contrast Final Result 1. No acute finding. Report Dictated on Electronically Signed By: Johnie Mccauley MD Electronically Signed Date/Time: 07/11/2024 6:29 PM EST ED BEDSIDE ULTRASOUND: Performed by ED Physician - none LABS: Labs Reviewed CBC WITH AUTO DIFFERENTIAL - Abnormal Result Value Auto WBC 5.8 RBC 3.88 (*) Hemoglobin 12.6 (*) Hematocrit 37.0 (*) MCV 95.4 MCH 32.5 MCHC 34.1 RDW 14.0 Platelets 319 MPV 9.6 nRBC 0.0 Neutrophils Relative 81.9 Lymphocytes Relative 7.6 (*) Monocytes Relative 8.1 Eosinophils Relative 1.2 Basophils Relative 0.7 Immature Grans % 0.5 Neutrophils Absolute 4.7 Lymphocytes Absolute 0.4 (*) Monocytes Absolute 0.5 Eosinophils Absolute 0.1 Basophils Absolute 0.0 Immature Grans Absolute 0.0 COMPREHENSIVE METABOLIC PANEL - Abnormal SODIUM 129 (*) POTASSIUM 4.1 CHLORIDE 95 (*) CARBON DIOXIDE 26 ANION GAP 8 UREA NITROGEN 23 CREATININE 1.49 (*) GLUCOSE 138 (*) CALCIUM 8.9 AST (SGOT) 43 (*) ALT 25 ALKALINE PHOSPHATASE 81 ALBUMIN 3.5 BILIRUBIN, TOTAL 0.8 TOTAL PROTEIN 6.9 eGFR 50.8 (*) SARS-COV-2 ANTIGEN - Normal SARS-CoV-2 Antigen Negative ETHANOL - Normal ETHANOL IN SER/PLAS <10 Narrative: 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 NOTE: This result is for medical treatment only. Analysis performed using non-forensic procedures. MAGNESIUM - Normal MAGNESIUM 2.0 Narrative: Higher values can be expected in females during menses. HIGH SENSITIVITY TROPONIN, SERIAL BASELINE - Normal Troponin HS, Serial Baseline 9 DRUGS OF ABUSE AMPHETAMINE SCREEN Negative BARBITURATES SCREEN Negative BENZODIAZEPINE SCREEN Negative COCAINE METAB. SCREEN Negative METHADONE SCREEN Negative OPIATES SCREEN Negative OXYCODONE SCREEN Negative PHENCYCLIDINE SCREEN Negative FENTANYL SCREEN, UR QUAL Negative Narrative: The expected value for all of the drugs listed above is Negative. The following drugs or drug groups have been screened for by Immunoassay at the following thresholds: Amphetamine class (1000 ng/mL) Barbiturates (200 ng/mL) Benzodiazepines (200 ng/mL) Cocaine (300 ng/mL) Methadone (300 ng/mL) Opiates (300 ng/mL) Oxycodone (100 ng/mL) PCP (25 ng/mL) Fentanyl (1.0 ng/ml) NOTE: These results are for medical treatment only. Analysis performed using non-forensic procedures. POSITIVE results are NOT confirmed by a more specific alternative method unless requested. If confirmation is needed, request confirmation under separate order. HIGH SENSITIVITY TROPONIN, SERIAL, SECOND TEST All other labs were within normal range or not returned as of this dictation. EMERGENCY DEPARTMENT COURSE and DIFFERENTIAL DIAGNOSIS/MDM: Vitals: Vitals: 07/11/24 1728 07/11/24 1729 07/11/24 2045 BP: (!) 128/92 114/78 Pulse: (!) 115 (!) 124 Resp: 16 16 Temp: 36.9 C (98.5 F) 37.3 C (99.1 F) TempSrc: Temporal Temporal SpO2: 100% 100% Weight: 72.6 kg (160 lb) Height: 1.753 m (5' 9) Diagnoses as of 07/11/242228 MARKOS (acute kidney injury) (HCC) Hyponatremia Alcohol withdrawal syndrome without complication (HCC) The patient presented with chief complaint of seeking detox from alcohol. The differential diagnosis associated with this patient's presentation includes alcohol withdrawal versus electrolyte abnormalities versus intracranial bleed versus cervical spine fracture versus rib fracture. Our workup consisted of ordering/reviewing: Labs, imaging. Labs notable for MARKOS and worsening hyponatremia. Ethanol negative. UDS negative.. To aid in management, I performed an independent interpretation of Xray(s) x-ray of the right ribs without acute fracture CT scan(s) CT head without acute intracranial bleed. CT Cerva spine without acute fracture.. I discussed their care with Admitting team Dr. Junior Jaramillo and Applied Behavior Specialist Dr. Zeus Barrett who recommended medical admission given hyponatremia and MARKOS. The patient will be Admitted. Patient is in agreement with this plan. Patient's care was impacted by atrial fibrillation, kidney disease. Patient's care was significantly impacted by social determinants of health including Alcoholism. Medications PHENobarbital tablet 97.2 mg (97.2 mg Oral Given 07/11/241957) sodium chloride 0.9 % bolus 1,000 mL (0 mL IntraVENous Stopped 07/11/242057) REVAL: CRITICAL CARE TIME None CONSULTS: None PROCEDURES: Unless otherwise noted below, none Procedures Patients symptoms are consistent with sepsis, severe sepsis, or septic shock (If yes use .sepsiscoremeasure): FINAL IMPRESSION 1. MARKOS (acute kidney injury) (HCC) 2. Hyponatremia 3. Alcohol withdrawal syndrome without complication (HCC) DISPOSITION Admit 07/11/2024 10:27:12 PM PATIENT REFERRED TO: No follow-up provider specified. DISCHARGE MEDICATIONS: New Prescriptions No medications on file (Comment: Please note this report has been produced using speech recognition software and may contain errors related to that system including errors in grammar, punctuation, and spelling, as well as words and phrases that may be inappropriate. If there are any questions or concerns please feel free to contact the dictating provider for clarification.) Maggie Chairez DO (electronically signed) Emergency Medicine Provider Maggie Chairez DO 07/11/242230 documented in this encounter [facility] 07-11-2024 History and physical note Attending History and Physical Admit Date: 07/11/2024 PCP: John Springer MD CHIEF COMPLAINT: Request for alcohol detoxification Reason for Admission: Same as above, hyponatremia, MARKOS History Obtained From: patient, EMR HISTORY OF PRESENT ILLNESS: Messi is a 69 y.o. male with past medical history below who presents with chief complaint listed above. Patient history includes anxiety, COPD, HTN, HLD and A-fib on Eliquis. Reports consumption of 9% alcoholic drinks and/or one half bottle of vodka daily-last drink 24 hours ago. Patient reports falling 3 days ago to right side-reports head strike but denies loss of consciousness. Initial ED workup notes sodium level of 129. BUN/creat at 23/1.49. Glucose of 138. Mild elevation of AST at 43. Troponin WNL with negative delta. WBCs WNL at 5.8. ECG shows A-fib with PVCs-HR initially at 132 bpm. Vital signs note normotensive pressures, HR initially tachycardic in 120s-130s however has improved to low 100s with initial management. Patient received 1 L fluid bolus, 97 mg phenobarbital as part of initial ED management. Will admit for further evaluation and management. -CT head Patchy low density in the periventricular and subcortical white matter is nonspecific, but may relate to chronic small vessel ischemic change. No hemorrhage, mass effect, or midline shift. No hydrocephalus. No pathologic extra-axial fluid collection. Normal basal cisterns. No evidence of acute cortical infarct. IMPRESSION: 1. No acute intracranial finding. Suspect chronic small vessel ischemic changes. -XR ribs, right No displaced rib fractures are seen. There is no pneumothorax. No focal areas of consolidation are seen. The heart size is within normal limits. Chronic-appearing right anterior ninth rib fracture. Mild coarse reticular opacities in the left lower lung are chronic and unchanged. IMPRESSION: No displaced rib fractures are seen within the right hemithorax. 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 COPD (chronic obstructive pulmonary disease) (HCC) Elevated blood pressure Essential (primary) hypertension 07/08/2017 Hyperlipidemia Indigestion Insomnia Prediabetes Umbilical hernia Past Surgical History: Past Surgical History: Procedure Laterality Date COLONOSCOPY DENTAL SURGERY EYE SURGERY Bilateral cataract surgery LARYNGOSCOPY 03/04/2020 fine needle aspiration biopsy right neck mass and right base of tounge biopsy - dr kenya PATINO TONSILLECTOMY (HISTORICAL) Right 03/04/2020 dr steiner Social History: Social History Socioeconomic History Marital status: Single Spouse name: Not on file Number of children: Not on file Years of education: Not on file Highest education level: Not on file Occupational History Not on file Tobacco Use Smoking status: Not on file Smokeless tobacco: Current Substance and Sexual Activity Alcohol use: Yes Alcohol/week: 42.0 standard drinks of alcohol Drug use: No Sexual activity: Not on file Other Topics Concern Not on file Social History Narrative Merged History Encounter Social Drivers of Health Financial Resource Strain: Low Risk (10/26/2021) Received from [facility] Overall Financial Resource Strain (CARDIA) Difficulty of Paying Living Expenses: Not hard at all Food Insecurity: No Food Insecurity (10/26/2021) Received from [facility] Hunger Vital Sign Worried About Running Out of Food in the Last Year: Never true Ran Out of Food in the Last Year: Never true Transportation Needs: No Transportation Needs (09/30/2020) Re[facility] from [facility] PRAPARE - Transportation Lack of Transportation (Medical): No Lack of Transportation (Non-Medical): No Physical Activity: Not on file Stress: Not on file Social Connections: Not on file Intimate Partner Violence: Not on file Housing Stability: Not on file Family History: Family History Problem Relation Name Age of Onset Diabetes Mother Diabetes Sister Diabetes Brother Medications Prior to Admission: No current facility-administered medications on file prior to encounter. Current Outpatient Medications on File Prior to Encounter Medication Sig Dispense Refill albuterol 108 (90 Base) MCG/ACT inhaler Inhale 2 puffs every 4 hours as needed. apixaban (Eliquis) 5 MG tablet Take 1 tablet (5 mg) by mouth 2 times daily. 60 tablet 1 budesonide-formoterol (Symbicort) 160-4.5 MCG/ACT inhaler Inhale 2 puffs in the morning and at bedtime. calcium carbonate (Os-Altagracia) 1250 (500 Ca) MG chewable tablet Chew 1 tablet. cholecalciferol (Vitamin D-3) 25 MCG (1000 UT) tablet Take 1,000 Units by mouth in the morning. cyanocobalamin (Vitamin B-12) 500 MCG tablet Take 1 tablet (500 mcg) by mouth daily. 30 tablet 1 folic acid (Folvite) 400 MCG tablet Take 1 tablet (0.4 mg) by mouth daily. 30 tablet 1 losartan (Cozaar) 50 MG tablet Take 1 tablet (50 mg) by mouth daily. 30 tablet 11 metoprolol tartrate (Lopressor) 100 MG tablet Take 1 tablet (100 mg) by mouth 2 times daily. 60 tablet 11 MULTIPLE VITAMINS-MINERALS ER PO Take by mouth. pyridoxine (Vitamin B-6) 25 MG tablet Take 1 tablet (25 mg) by mouth daily. 30 tablet 11 Allergies: No Known Allergies REVIEW OF SYSTEMS: As documented in HPI Vitals: BP 114/78 Pulse (!) 124 Temp 37.3 C (99.1 F) (Temporal) Resp 16 Ht 5' 9 (1.753 m) Wt 160 lb (72.6 kg) SpO2 100% BMI 23.63 kg/m BMI Classification: Normal Weight (BMI 18.5-24.9) Pulse Ox: SpO2 Av % Min: 100 % Max: 100 % Supplemental O2: PHYSICAL EXAM: Physical Exam Constitutional: General: He is sleeping. Comments: Patient sleeping, difficult to rouse. Patient did receive phenobarbital prior to assessment. Limited examination HENT: Head: Normocephalic. Comments: Bruising, small abrasion of forehead Cardiovascular: Rate and Rhythm: Tachycardia present. Rhythm irregularly irregular. Pulmonary: Breath sounds: Normal breath sounds. Skin: General: Skin is warm and dry. Neurological: General: No focal deficit present. Cranial Nerves: Cranial nerves 2-12 are intact. DATA: CBC: Recent Labs 07/11/241941 WBC 5.8 RBC 3.88* HGB 12.6* HCT 37.0* MCV 95.4 RDW 14.0 PLT 319 BMP: Recent Labs 07/11/241941 NA 129* K 4.1 CL 95* CO2 26 BUN 23 CREATININE 1.49* GLUCOSE 138* CALCIUM 8.9 ANIONGAP 8 LIVER PROFILE: Recent Labs 07/11/241941 AST 43* ALT 25 BILITOT 0.8 ALKPHOS 81 PROT 6.9 PT/INR: No results for input(s): PROTIME, INR in the last 72 hours. CARDIAC ENZYMES: No results for input(s): TROPONINI in the last 72 hours. Procalcitonin: No results found for: PROCAL Urine Culture: No results found for this or any previous visit. COVID-19 PCR: No results for input(s): COVID19 in the last 72 hours. I reviewed: [x] laboratory results [x] radiographic results At the time of today's encounter. Pt was advised of the results. Data: (LOW: 2x CAT1 or independent historian MOD: 3x CAT1 or 1x CAT3 EXTENSIVE: 3x CAT1 and 1x CAT3) Assessment Discussed management with the ED provider and agree with hospitalization. Acute, acute on chronic, unstable/uncontrolled chronic problems/diagnoses: EtOH Detoxification -Thiamine 100mg - Folic acid 1mg - PO Phenobarb to start at 97mg - Addiction Medicine specialty consulted - PRN Ativan per [facility] protocol 2. Hyponatremia w/ Acute Kidney Injury - Gentle IVF hydration - Recheck level in AM Stable chronic problems affecting care, new non-acute diagnoses: Atrial fibrillation -Metoprolol 100 mg -Eliquis 5 mg 2. Hypertension -Losartan 50 mg -Currently low normal pressures. Will provide gentle IVF hydration 3. COPD -Continue home respiratory regimen -As needed albuterol Plan As a result of the above findings & factors, the following mgmt was pursued: - am labs, replace lytes prn - PT/OT/CM/SW - delirium precautions: increase activity and limit nighttime disturbances - DVT prophylaxis: SCDs and encourage ambulation Complexity: Chronic illness with mild to moderate exacerbation, progression, or side effect of tx (MOD). Risk: Admission to hospital-level care was considered or occurred (HIGH). Advance Directive: FULL CODE Anticipated Discharge - Date - 07/13 - Location - Home Total time spent (which include face to face and non face to face encounters) : 62 minutes. Extended Emergency Contact Information Primary Emergency Contact: Dewanye Waldrop Relation: Child Junior Jaramillo MD Division of Hospital Medicine Inpatient Medical Services/[facility] [place] [facility] [employer] Phone: 07-11-2024 Note Attending History an d Physical Admit Date: 07/11/2024 PCP: John Springer MD CHIEF COMPLAINT: Request for alcohol detoxification Reason for Admission: Same as above, hyponatremia, MARKOS History Obtained From: patient, EMR HISTORY OF PRESENT ILLNESS: Messi is a 69 y.o. male with past medical history below who presents with chief complaint listed above. Patient history includes anxiety, COPD, HTN, HLD and A-fib on Eliquis. Reports consumption of 9% alcoholic drinks and/or one half bottle of vodka daily-last drink 24 hours ago. Patient reports falling 3 days ago to right side-reports head strike but denies loss of consciousness. Initial ED workup notes sodium level of 129. BUN/creat at 23/1.49. Glucose of 138. Mild elevation of AST at 43. Troponin WNL with negative delta. WBCs WNL at 5.8. ECG shows A-fib with PVCs-HR initially at 132 bpm. Vital signs note normotensive pressures, HR initially tachycardic in 120s-130s however has improved to low 100s with initial management. Patient received 1 L fluid bolus, 97 mg phenobarbital as part of initial ED management. Will admit for further evaluation and management. -CT head Patchy low density in the periventricular and subcortical white matter is nonspecific, but may relate to chronic small vessel ischemic change. No hemorrhage, mass effect, or midline shift. No hydrocephalus. No pathologic extra-axial fluid collection. Normal basal cisterns. No evidence of acute cortical infarct. IMPRESSION: 1. No acute intracranial finding. Suspect chronic small vessel ischemic changes. -XR ribs, right No displaced rib fractures are seen. There is no pneumothorax. No focal areas of consolidation are seen. The heart size is within normal limits. Chronic-appearing right anterior ninth rib fracture. Mild coarse reticular opacities in the left lower lung are chronic and unchanged. IMPRESSION: No displaced rib fractures are seen within the right hemithorax. 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 COPD (chronic obstructive pulmonary disease) ([facility]) Elevated blood pressure Essential (primary) hypertension 07/08/2017 Hyperlipidemia Indigestion Insomnia Prediabetes Umbilical hernia Past Surgical History: Past Surgical History: Procedure Laterality Date COLONOSCOPY DENTAL SURGERY EYE SURGERY Bilateral cataract surgery LARYNGOSCOPY 03/04/2020 fine needle aspiration biopsy right neck mass and right base of tounge biopsy - dr kenya PATINO TONSILLECTOMY (HISTORICAL) Right 03/04/2020 dr steiner Social History: Social History Socioeconomic History Marital status: Single Spouse name: Not on file Number of children: Not on file Years of education: Not on file Highest education level: Not on file Occupational History Not on file Tobacco Use Smoking status: Not on file Smokeless tobacco: Current Substance and Sexual Activity Alcohol use: Yes Alcohol/week: 42.0 standard drinks of alcohol Drug use: No Sexual activity: Not on file Other Topics Concern Not on file Social History Narrative Merged History Encounter Social Drivers of Health Financial Resource Strain: Low Risk (10/26/2021) Received from [facility] Overall Financial Resource Strain (CARDIA) Difficulty of Paying Living Expenses: Not hard at all Food Insecurity: No Food Insecurity (10/26/2021) Received from [facility] Hunger Vital Sign Worried About Running Out of Food in the Last Year: Never true Ran Out of Food in the Last Year: Never true Transportation Needs: No Transportation Needs (09/30/2020) Received from [facility] PRAPARE - Transportation Lack of Transportation (Medical): No Lack of Transportation (Non-Medical): No Physical Activity: Not on file Stress: Not on file Social Connections: Not on file Intimate Partner Violence: Not on file Housing Stability: Not on file Family History: Family History Problem Relation Name Age of Onset Diabetes Mother Diabetes Sister Diabetes Brother Medications Prior to Admission: No current facility-administered medications on file prior to encounter. Current Outpatient Medications on File Prior to Encounter Medication Sig Dispense Refill albuterol 108 (90 Base) MCG/ACT inhaler Inhale 2 puffs every 4 hours as needed. apixaban (Eliquis) 5 MG tablet Take 1 tablet (5 mg) by mouth 2 times daily. 60 tablet 1 budesonide-formoterol (Symbicort) 160-4.5 MCG/ACT inhaler Inhale 2 puffs in the morning and at bedtime. calcium carbonate (Os-Altagracia) 1250 (500 Ca) MG chewable tablet Chew 1 tablet. cholecalciferol (Vitamin D-3) 25 MCG (1000 UT) tablet Take 1,000 Units by mouth in the m (more content not included)... [facility] 07-11-2024 History and physical note Attending History and Physical Admit Date: 07/11/2024 PCP: John Springer MD CHIEF COMPLAINT: Request for alcohol detoxification Reason for Admission: Same as above, hyponatremia, MARKOS History Obtained From: patient, EMR HISTORY OF PRESENT ILLNESS: Messi is a 69 y.o. male with past medical history below who presents with chief complaint listed above. Patient history includes anxiety, COPD, HTN, HLD and A-fib on Eliquis. Reports consumption of 9% alcoholic drinks and/or one half bottle of vodka daily-last drink 24 hours ago. Patient reports falling 3 days ago to right side-reports head strike but denies loss of consciousness. Initial ED workup notes sodium level of 129. BUN/creat at 23/1.49. Glucose of 138. Mild elevation of AST at 43. Troponin WNL with negative delta. WBCs WNL at 5.8. ECG shows A-fib with PVCs-HR initially at 132 bpm. Vital signs note normotensive pressures, HR initially tachycardic in 120s-130s however has improved to low 100s with initial management. Patient received 1 L fluid bolus, 97 mg phenobarbital as part of initial ED management. Will admit for further evaluation and management. -CT head Patchy low density in the periventricular and subcortical white matter is nonspecific, but may relate to chronic small vessel ischemic change. No hemorrhage, mass effect, or midline shift. No hydrocephalus. No pathologic extra-axial fluid collection. Normal basal cisterns. No evidence of acute cortical infarct. IMPRESSION: 1. No acute intracranial finding. Suspect chronic small vessel ischemic changes. -XR ribs, right No displaced rib fractures are seen. There is no pneumothorax. No focal areas of consolidation are seen. The heart size is within normal limits. Chronic-appearing right anterior ninth rib fracture. Mild coarse reticular opacities in the left lower lung are chronic and unchanged. IMPRESSION: No displaced rib fractures are seen within the right hemithorax. 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 COPD (chronic obstructive pulmonary disease) ([facility]) Elevated blood pressure Essential (primary) hypertension 07/08/2017 Hyperlipidemia Indigestion Insomnia Prediabetes Umbilical hernia Past Surgical History: Past Surgical History: Procedure Laterality Date COLONOSCOPY DENTAL SURGERY EYE SURGERY Bilateral cataract surgery LARYNGOSCOPY 03/04/2020 fine needle aspiration biopsy right neck mass and right base of tounge biopsy - dr kenya PATINO TONSILLECTOMY (HISTORICAL) Right 03/04/2020 dr steiner Social History: Social History Socioeconomic History Marital status: Single Spouse name: Not on file Number of children: Not on file Years of education: Not on file Highest education level: Not on file Occupational History Not on file Tobacco Use Smoking status: Not on file Smokeless tobacco: Current Substance and Sexual Activity Alcohol use: Yes Alcohol/week: 42.0 standard drinks of alcohol Drug use: No Sexual activity: Not on file Other Topics Concern Not on file Social History Narrative Merged History Encounter Social Drivers of Health Financial Resource Strain: Low Risk (10/26/2021) Received from [facility] Overall Financial Resource Strain (CARDIA) Difficulty of Paying Living Expenses: Not hard at all Food Insecurity: No Food Insecurity (10/26/2021) Received from [facility] Hunger Vital Sign Worried About Running Out of Food in the Last Year: Never true Ran Out of Food in the Last Year: Never true Transportation Needs: No Transportation Needs (09/30/2020) Received from [facility] PRAPARE - Transportation Lack of Transportation (Medical): No Lack of Transportation (Non-Medical): No Physical Activity: Not on file Stress: Not on file Social Connections: Not on file Intimate Partner Violence: Not on file Housing Stability: Not on file Family History: Family History Problem Relation Name Age of Onset Diabetes Mother Diabetes Sister Diabetes Brother Medications Prior to Admission: No current facility-administered medications on file prior to encounter. Current Outpatient Medications on File Prior to Encounter Medication Sig Dispense Refill albuterol 108 (90 Base) MCG/ACT inhaler Inhale 2 puffs every 4 hours as needed. apixaban (Eliquis) 5 MG tablet Take 1 tablet (5 mg) by mouth 2 times daily. 60 tablet 1 budesonide-formoterol (Symbicort) 160-4.5 MCG/ACT inhaler Inhale 2 puffs in the morning and at bedtime. calcium carbonate (Os-Altagracia) 1250 (500 Ca) MG chewable tablet Chew 1 tablet. cholecalciferol (Vitamin D-3) 25 MCG (1000 UT) tablet Take 1,000 Units by mouth in the morning. cyanocobalamin (Vitamin B-12) 500 MCG tablet Take 1 tablet (500 mcg) by mouth daily. 30 tablet 1 folic acid (Folvite) 400 MCG tablet Take 1 tablet (0.4 mg) by mouth daily. 30 tablet 1 losartan (Cozaar) 50 MG tablet Take 1 tablet (50 mg) by mouth daily. 30 tablet 11 metoprolol tartrate (Lopressor) 100 MG tablet Take 1 tablet (100 mg) by mouth 2 times daily. 60 tablet 11 MULTIPLE VITAMINS-MINERALS ER PO Take by mouth. pyridoxine (Vitamin B-6) 25 MG tablet Take 1 tablet (25 mg) by mouth daily. 30 tablet 11 Allergies: No Known Allergies REVIEW OF SYSTEMS: As documented in HPI Vitals: BP 114/78 Pulse (!) 124 Temp 37.3 C (99.1 F) (Temporal) Resp 16 Ht 5' 9 (1.753 m) Wt 160 lb (72.6 kg) SpO2 100% BMI 23.63 kg/m BMI Classification: Normal Weight (BMI 18.5-24.9) Pulse Ox: SpO2 Av % Min: 100 % Max: 100 % Supplemental O2: PHYSICAL EXAM: Physical Exam Constitutional: General: He is sleeping. Comments: Patient sleeping, difficult to rouse. Patient did receive phenobarbital prior to assessment. Limited examination HENT: Head: Normocephalic. Comments: Bruising, small abrasion of forehead Cardiovascular: Rate and Rhythm: Tachycardia present. Rhythm irregularly irregular. Pulmonary: Breath sounds: Normal breath sounds. Skin: General: Skin is warm and dry. Neurological: General: No focal deficit present. Cranial Nerves: Cranial nerves 2-12 are intact. DATA: CBC: Recent Labs 07/11/241941 WBC 5.8 RBC 3.88* HGB 12.6* HCT 37.0* MCV 95.4 RDW 14.0 PLT 319 BMP: Recent Labs 07/11/241941 NA 129* K 4.1 CL 95* CO2 26 BUN 23 CREATININE 1.49* GLUCOSE 138* CALCIUM 8.9 ANIONGAP 8 LIVER PROFILE: Recent Labs 07/11/241941 AST 43* ALT 25 BILITOT 0.8 ALKPHOS 81 PROT 6.9 PT/INR: No results for input(s): PROTIME, INR in the last 72 hours. CARDIAC ENZYMES: No results for input(s): TROPONINI in the last 72 hours. Procalcitonin: No results found for: PROCAL Urine Culture: No results found for this or any previous visit. COVID-19 PCR: No results for input(s): COVID19 in the last 72 hours. I reviewed: [x] laboratory results [x] radiographic results At the time of today's encounter. Pt was advised of the results. Data: (LOW: 2x CAT1 or independent historian MOD: 3x CAT1 or 1x CAT3 EXTENSIVE: 3x CAT1 and 1x CAT3) Assessment Discussed management with the ED provider and agree with hospitalization. Acute, acute on chronic, unstable/uncontrolled chronic problems/diagnoses: EtOH Detoxification -Thiamine 100mg - Folic acid 1mg - PO Phenobarb to start at 97mg - Addiction Medicine specialty consulted - PRN Ativan per [facility] protocol 2. Hyponatremia w/ Acute Kidney Injury - Gentle IVF hydration - Recheck level in AM Stable chronic problems affecting care, new non-acute diagnoses: Atrial fibrillation -Metoprolol 100 mg -Eliquis 5 mg 2. Hypertension -Losartan 50 mg -Currently low normal pressures. Will provide gentle IVF hydration 3. COPD -Continue home respiratory regimen -As needed albuterol Plan As a result of the above findings & factors, the following mgmt was pursued: - am labs, replace lytes prn - PT/OT/CM/SW - delirium precautions: increase activity and limit nighttime disturbances - DVT prophylaxis: SCDs and encourage ambulation Complexity: Chronic illness with mild to moderate exacerbation, progression, or side effect of tx (MOD). Risk: Admission to hospital-level care was considered or occurred (HIGH). Advance Directive: FULL CODE Anticipated Discharge - Date - 07/13 - Location - Home Total time spent (which include face to face and non face to face encounters) : 62 minutes. Extended Emergency Contact Information Primary Emergency Contact: Dewayne Waldrop Relation: Child Junior Jaramillo MD Division of Hospital Medicine Inpatient Medical Services[place] [place] documented in this encounter [facility] 07-11-2024 Emergency department Note Pt pacing around the lobby, attempting to involve himself in other patient's business. Pt asked to take a seat and please crowd other patients. Security and other staff notified [facility] 07-11-2024 Physician Emergency department Note Emergency Department Encounter [facility] EMERGENCY DEPT Patient: Messi Waldrop : 1955 Date of Evaluation: 07/11/2024 ED Provider: Raymond Hernandez MD I saw the patient as the Clinician in Triage and performed a brief history and physical exam, established acuity, and ordered appropriate tests to develop basic plan of care. Patient will be seen by JAH, resident and/or my physician partner who will evaluate the patient. I wore appropriate PPE for the entirety of this encounter. Brief HPI: In brief, Messi Waldrop is a 69 y.o. that presents with chief complaint of needing treatment for alcohol abuse. States last drink was yesterday. History of drinking at least a half a bottle of vodka daily. He did have a recent fall few days ago, hitting his forehead. Focused Physical exam: Awake and alert. He has older bruising on the lower forehead area and bilateral orbits. Pupils react equally. No obvious cervical spine tenderness. Lungs clear to auscultation. Heart irregular rhythm, tachycardic. Abdomen soft nondistended without focal tenderness. Extremities with equal distal pulses. Neurologic exam has no motor or sensory deficits in all 4 extremities. Plan/MDM: Evaluate for head injury. Evaluate his suspected atrial fibrillation, medical clearance evaluation for detox treatment Patients symptoms are consistent with sepsis, severe sepsis, or septic shock (If yes use .sepsiscoremeasure): no Please see subsequent provider note for further details and disposition (Comment: Please note this report has been produced using speech recognition software and may contain errors related to that system including errors in grammar, punctuation, and spelling as well as words and phrases that may be inappropriate. If there are any questions or concerns please feel free to contact the dictating provider for clarification) Raymond Hernandez MD [employer] Raymond Hernandez MD 07/11/242155 [facility] Phone: 07-11-2024 Physician Emergency department Note EMERGENCY DEPARTMENT ENCOUNTER Pt Name: Messi Waldrop Birthdate 1955 Date of evaluation: 07/11/2024 ED Provider: Maggie Chairez DO CHIEF COMPLAINT Chief Complaint Patient presents with Alcohol Problem Patient with daughter for alcohol detox , last drink yesterday, drink amount varies but most recently drinking 1/2 bottle of vodka daily, denies hx of seizures with withdrawal HISTORY OF PRESENT ILLNESS (Location/Symptom, Timing/Onset, Context/Setting, Quality, Duration, Modifying Factors, Severity) Note limiting factors. I wore appropriate PPE for the entirety of this encounter. HPI Messi Waldrop is a 69 y.o. who presents to the emergency department with chief complaint of seeking detox from alcohol. Last drink was last night. Says he drinks a varied amount but typically its about a sixpack of 9% [employer] or half bottle of vodka every day. Denies history of withdrawal seizures. Says he has gone through detox in the past. Denies any other recreational drug use. Patient did admit to a fall several days ago and currently complaining of right rib pain. Denies headache loss of consciousness. Is on Eliquis for atrial fibrillation. Nursing Notes were reviewed. Limitations to history: None Outside historians: None REVIEW OF SYSTEMS Review of Systems Pertinent positives and negatives as per HPI. 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 COPD (chronic obstructive pulmonary disease) ([facility]) Elevated blood pressure Essential (primary) hypertension 07/08/2017 Hyperlipidemia Indigestion Insomnia Prediabetes Umbilical hernia SURGICAL HISTORY Past Surgical History: Procedure Laterality Date COLONOSCOPY DENTAL SURGERY EYE SURGERY Bilateral cataract surgery LARYNGOSCOPY 03/04/2020 fine needle aspiration biopsy right neck mass and right base of tounge biopsy - dr kenya PATINO TONSILLECTOMY (HISTORICAL) Right 03/04/2020 dr steiner CURRENT MEDICATIONS Previous Medications ALBUTEROL 108 (90 BASE) MCG/ACT INHALER Inhale 2 puffs every 4 hours as needed. APIXABAN (ELIQUIS) 5 MG TABLET Take 1 tablet (5 mg) by mouth 2 times daily. BUDESONIDE-FORMOTEROL (SYMBICORT) 160-4.5 MCG/ACT INHALER Inhale 2 puffs in the morning and at bedtime. CALCIUM CARBONATE (OS-ALTAGRACIA) 1250 (500 CA) MG CHEWABLE TABLET Chew 1 tablet. CHOLECALCIFEROL (VITAMIN D-3) 25 MCG (1000 UT) TABLET Take 1,000 Units by mouth in the morning. CYANOCOBALAMIN (VITAMIN B-12) 500 MCG TABLET Take 1 tablet (500 mcg) by mouth daily. FOLIC ACID (FOLVITE) 400 MCG TABLET Take 1 tablet (0.4 mg) by mouth daily. LOSARTAN (COZAAR) 50 MG TABLET Take 1 tablet (50 mg) by mouth daily. METOPROLOL TARTRATE (LOPRESSOR) 100 MG TABLET Take 1 tablet (100 mg) by mouth 2 times daily. MULTIPLE VITAMINS-MINERALS ER PO Take by mouth. PYRIDOXINE (VITAMIN B-6) 25 MG TABLET Take 1 tablet (25 mg) by mouth daily. ALLERGIES Patient has no known allergies. FAMILY HISTORY Family History Problem Relation Name Age of Onset Diabetes Mother Diabetes Sister Diabetes Brother SOCIAL HISTORY Social History Socioeconomic History Marital status: Single Tobacco Use Smokeless tobacco: Current Substance and Sexual Activity Alcohol use: Yes Alcohol/week: 42.0 standard drinks of alcohol Drug use: No Social History Narrative Merged History Encounter Social Drivers of Health Financial Resource Strain: Low Risk (10/26/2021) Received from [facility] Overall Financial Resource Strain (CARDIA) Difficulty of Paying Living Expenses: Not hard at all Food Insecurity: No Food Insecurity (10/26/2021) Received from [facility] Hunger Vital Sign Worried About Running Out of Food in the Last Year: Never true Ran Out of Food in the Last Year: Never true Transportation Needs: No Transportation Needs (09/30/2020) Received from [facility] PRAPARE - Transportation Lack of Transportation (Medical): No Lack of Transportation (Non-Medical): No SCREENINGS PHYSICAL EXAM ED Triage Vitals [07/11/24 1729] Temp Heart Rate Resp BP 36.9 C (98.5 F) (!) 115 16 (!) 128/92 SpO2 Temp Source Heart Rate Source Patient Position 100 % Temporal Monitor -- BP Location FiO2 (%) -- -- Physical Exam Vitals reviewed. Constitutional: General: He is not in acute distress. Appearance: He is not ill-appearing. HENT: Head: Normocephalic. Comments: Abrasions noted to the face Eyes: Extraocular Movements: Extraocular movements intact. Conjunctiva/sclera: Conjunctivae normal. Pupils: Pupils are equal, round, and reactive to light. Cardiovascular: Rate and Rhythm: Regular rhythm. Tachycardia present. Pulses: Normal pulses. Heart sounds: Normal heart sounds. No murmur heard. Pulmonary: Effort: Pulmonary effort is normal. Breath sounds: Normal breath sounds. No wheezing, rhonchi or rales. Abdominal: Palpations: Abdomen is soft. Tenderness: There is no abdominal tenderness. Musculoskeletal: General: Tenderness (right ribs) present. Normal range of motion. Cervical back: Normal range of motion. Skin: General: Skin is warm. Neurological: General: No focal deficit present. Mental Status: He is alert. Mental status is at baseline. Motor: No weakness. Gait: Gait normal. DIAGNOSTIC RESULTS Procedures/EKG: EKG was reviewed by myself. Physician EKG interpretation can be found in [facility] RADIOLOGY (Per Emergency Physician): Interpretation per the Radiologist below, if available at the time of this note: XR ribs 2 views right w chest anteroposterior Final Result No displaced rib fractures are seen within the right hemithorax. Report Dictated on Electronically Signed By: Junior Vera MD Electronically Signed Date/Time: 07/11/2024 6:[address] head wo IV contrast Final Result 1. No acute intracranial finding. Suspect chronic small vessel ischemic changes. Report Dictated on Electronically Signed By: Johnie Mccauley MD Electronically Signed Date/Time: 07/11/2024 6:[address] cervical spine wo IV contrast Final Result 1. No acute finding. Report Dictated on Electronically Signed By: Johnie Mccauley MD Electronically Signed Date/Time: 07/11/2024 6:29 PM EST ED BEDSIDE ULTRASOUND: Performed by ED Physician - none LABS: Labs Reviewed CBC WITH AUTO DIFFERENTIAL - Abnormal Result Value Auto WBC 5.8 RBC 3.88 (*) Hemoglobin 12.6 (*) Hematocrit 37.0 (*) MCV 95.4 MCH 32.5 MCHC 34.1 RDW 14.0 Platelets 319 MPV 9.6 nRBC 0.0 Neutrophils Relative 81.9 Lymphocytes Relative 7.6 (*) Monocytes Relative 8.1 Eosinophils Relative 1.2 Basophils Relative 0.7 Immature Grans % 0.5 Neutrophils Absolute 4.7 Lymphocytes Absolute 0.4 (*) Monocytes Absolute 0.5 Eosinophils Absolute 0.1 Basophils Absolute 0.0 Immature Grans Absolute 0.0 COMPREHENSIVE METABOLIC PANEL - Abnormal SODIUM 129 (*) POTASSIUM 4.1 CHLORIDE 95 (*) CARBON DIOXIDE 26 ANION GAP 8 UREA NITROGEN 23 CREATININE 1.49 (*) GLUCOSE 138 (*) CALCIUM 8.9 AST (SGOT) 43 (*) ALT 25 ALKALINE PHOSPHATASE 81 ALBUMIN 3.5 BILIRUBIN, TOTAL 0.8 TOTAL PROTEIN 6.9 eGFR 50.8 (*) SARS-COV-2 ANTIGEN - Normal SARS-CoV-2 Antigen Negative ETHANOL - Normal ETHANOL IN SER/PLAS <10 Narrative: 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 NOTE: This result is for medical treatment only. Analysis performed using non-forensic procedures. MAGNESIUM - Normal MAGNESIUM 2.0 Narrative: Higher values can be expected in females during menses. HIGH SENSITIVITY TROPONIN, SERIAL BASELINE - Normal Troponin HS, Serial Baseline 9 DRUGS OF ABUSE AMPHETAMINE SCREEN Negative BARBITURATES SCREEN Negative BENZODIAZEPINE SCREEN Negative COCAINE METAB. SCREEN Negative METHADONE SCREEN Negative OPIATES SCREEN Negative OXYCODONE SCREEN Negative PHENCYCLIDINE SCREEN Negative FENTANYL SCREEN, UR QUAL Negative Narrative: The expected value for all of the drugs listed above is Negative. The following drugs or drug groups have been screened for by Immunoassay at the following thresholds: Amphetamine class (1000 ng/mL) Barbiturates (200 ng/mL) Benzodiazepines (200 ng/mL) Cocaine (300 ng/mL) Methadone (300 ng/mL) Opiates (300 ng/mL) Oxycodone (100 ng/mL) PCP (25 ng/mL) Fentanyl (1.0 ng/ml) NOTE: These results are for medical treatment only. Analysis performed using non-forensic procedures. POSITIVE results are NOT confirmed by a more specific alternative method unless requested. If confirmation is needed, request confirmation under separate order. HIGH SENSITIVITY TROPONIN, SERIAL, SECOND TEST All other labs were within normal range or not returned as of this dictation. EMERGENCY DEPARTMENT COURSE and DIFFERENTIAL DIAGNOSIS/MDM: Vitals: Vitals: 07/11/24 1728 07/11/24 1729 07/11/24 2045 BP: (!) 128/92 114/78 Pulse: (!) 115 (!) 124 Resp: 16 16 Temp: 36.9 C (98.5 F) 37.3 C (99.1 F) TempSrc: Temporal Temporal SpO2: 100% 100% Weight: 72.6 kg (160 lb) Height: 1.753 m (5' 9) Diagnoses as of 07/11/242228 MARKOS (acute kidney injury) (HCC) Hyponatremia Alcohol withdrawal syndrome without complication (HCC) The patient presented with chief complaint of seeking detox from alcohol. The differential diagnosis associated with this patient's presentation includes alcohol withdrawal versus electrolyte abnormalities versus intracranial bleed versus cervical spine fracture versus rib fracture. Our workup consisted of ordering/reviewing: Labs, imaging. Labs notable for MARKOS and worsening hyponatremia. Ethanol negative. UDS negative.. To aid in management, I performed an independent interpretation of Xray(s) x-ray of the right ribs without acute fracture CT scan(s) CT head without acute intracranial bleed. CT Cerva spine without acute fracture.. I discussed their care with Admitting team Dr. Junior Jaramillo and Applied Behavior Specialist Dr. Zeus Barrett who recommended medical admission given hyponatremia and MARKOS. The patient will be Admitted. Patient is in agreement with this plan. Patient's care was impacted by atrial fibrillation, kidney disease. Patient's care was significantly impacted by social determinants of health including Alcoholism. Medications PHENobarbital tablet 97.2 mg (97.2 mg Oral Given 07/11/241957) sodium chloride 0.9 % bolus 1,000 mL (0 mL IntraVENous Stopped 07/11/242057) REVAL: CRITICAL CARE TIME None CONSULTS: None PROCEDURES: Unless otherwise noted below, none Procedures Patients symptoms are consistent with sepsis, severe sepsis, or septic shock (If yes use .sepsiscoremeasure): FINAL IMPRESSION 1. MARKOS (acute kidney injury) (HCC) 2. Hyponatremia 3. Alcohol withdrawal syndrome without complication (HCC) DISPOSITION Admit 07/11/2024 10:27:12 PM PATIENT REFERRED TO: No follow-up provider specified. DISCHARGE MEDICATIONS: New Prescriptions No medications on file (Comment: Please note this report has been produced using speech recognition software and may contain errors related to that system including errors in grammar, punctuation, and spelling, as well as words and phrases that may be inappropriate. If there are any questions or concerns please feel free to contact the dictating provider for clarification.) Maggie Chairez DO (electronically signed) Emergency Medicine Provider Maggie Chairez DO 07/11/241 [facility] 10-16-2023 Progress note Note Date/Time October 16, 2023 6:55am [facility] Medical Records Department [address] [place] [address] Progress Note - Hospitalist 10/16/23 0650 MR#: [id number] Acct: [id number] Name: MESSI WALDROP Rep #:[id number] : [id number] 68 From: Galen Souza DO PCP: Dr. John Springer MD Status:AD M IN Location: ICU ICU02-1 Reason for Visit Reason for Visit: Diagnoses Unspecified atrial fibrillation (10/15/23) Heart failure, unspecified (10/15/23) Other ill-defined heart diseases (10/15/23) Hypotension, unspecified (10/15/23) Other malaise (10/15/23) Syncope and collapse (10/15/23) Unspecified fall, initial encounter (10/15/23) Subjective Subjective Some shortness of breath. Objective Data Objective Data Vital Signs: Vital Signs Temp Pulse Resp BP Pulse Ox O2 Del Method 36.8 C 129 H 19 H 91/54 L 94 Room Air 10/16/23 04:00 10/16/23 06:38 10/16/23 06:38 10/16/23 06:00 10/16/23 06:38 10/16/23 06:38 Oxygen Delivery Method Room Air Weight: 72.7 kg Body Mass Index (BMI) 23.0 Intake & Output: Intake and Output for Last 24 Hours 10/14/23 10/15/23 10/16/23 23:59 23:59 23:59 Intake Total 750 / 750 720 / 720 200 / 200 Output Total 275 / 275 100 / 100 Balance 750 / 750 445 / 445 100 / 100 Lab / Micro Data 10/16/23 03:15 10/16/23 03:15 Labs: Laboratory Results - last 24 hr 10/15/23 16:40: Magnesium 2.1 10/16/23 03:15: WBC 11.1 H, RBC 3.67 L, Hgb 10.4 L, Hct 31.9 L, MCV 86.9, MCH 28.3, MCHC 32.6, RDW Std Deviation 57.7 H, RDW Coeff of Jesus 18.1 H, Plt Count 206, MPV 11.0, Sodium 131 L, Potassium 3.6, Chloride 99, Carbon Dioxide 25.0, Anion Gap 7, BUN 48 H, Creatinine 1.73 H, Estim Creat Clear Calc 42.61, Est GFR (MDRD) Af Amer 51 L, Est GFR (MDRD) Non-Af 42 L, BUN/Creatinine Ratio 27.7 H, Glucose 94, Calcium 8.4 L Rhythm Strip Rhythm Strip: A-fib Physical Exam Const alert and no apparent distress HEENT head/scalp atraumatic and moist oral mucous membranes Resp normal respiratory effort, no retractions, no use of accessory muscles and clearto auscultation bilaterally Cardio Cardio Narrative: tachy, regular. GI normal to inspection, nondistended, normoactive bowel sounds, soft to palpation and non-tender Assessment & Plan Assessment/Plan (1) Atrial fibrillation with RVR: (2) Falls: (3) Pre-syncope: (4) Acute hypotension: (5) Debility: (6) Heart failure: PLAN: Plan Hypotension * w/o shock * responded to some IVF. monitor closely, caution advised with IVF given cardiomyopathy * BP/CHF meds held. Afib w RVR * on amio and digoxin * anticoagulated with apixaban * no BB at present given hypotension and low-normal BPs. * Cardiology following. Falls with presyncopal symptoms, * suspect orthostatic on top of poor performance status. * PT OT eval and treat Chronic conditions: * HFrEF, nonischemic cardiomyopathy? Also diagnosed in July, see HPI for further details. Last echo in August showed an EF of 15 to 20%. Last saw cardiology during that admission as noted above. Home regimen prior to admission here was Bumex 1 mg twice daily, empagliflozin 10 mg daily, losartan 50 mg daily, Entresto 24-26 mg twice daily, spironolactone 25 mg daily. Cardiology consulted as above. Holding home medications. * History of alcohol abuse with suspected Wernicke's encephalopathy? Reported last alcohol use was prior to his July admission to [facility]. Alcohol level of 0 on admit. Denies any withdrawal symptoms.? Continue home folate and thiamine. No need for CIWA protocol at this time. * CKD stage III: Creatinine 1.35 on admit, at baseline, stable. * Anxiety/depression/insomnia: Continue home melatonin, mirtazapine. * COPD: Stable on room air, no concern for exacerbation. Continue home inh maria antonia. * Tobacco use: Nicotine replacement therapy available as needed. * History of severely inappropriate behavior. Patient has a history of inappropriate comments and particularly inappropriate behavior towards female nursing. Will need to set behavior guidelines for him. DVT prophylaxis: Eliquis CODE STATUS: Full code, verified Expected disposition: Transfer to [facility] when bed is available Charges/Coding Visit Charges Inpatient E&M: 50546 Subs Hosp L2 10/16/23 1025 <Electronically signed by Galen Souza DO> Cosigner Signature (if applicable): CC: ~ Signed [facility] Work Phone: 1(196) 803-590603-19-2024 Progress note Author Jero Nicole [facility] October 16, 2023 7:38am Note Date/Time October 16, 2023 7:3 8am [facility] Medical Records Department [address] [place] [id number] Progress Note - Cardiology 10/16/23 0737 MR#: [id number] Acct: [id number] Name: MESSI WALDROP Rep #:[id number] : 1955 68 From: Jero Nicole MD PCP: Dr. John Springer MD Status:AD M IN Location: ICU ICU02-1 Subjective Subjective Patient seen and evaluated. Appears to be stable. Still mildly tachycardic. Objective Data Vital Signs: Vital Signs Temp Pulse Resp BP Pulse Ox O2 Del Method 98.3 F 132 H 25 H 117/91 H 97 Room Air 10/16/23 04:00 10/16/23 07:00 10/16/23 07:00 10/16/23 07:00 10/16/23 07:00 10/16/23 07:00 Oxygen Delivery Method Room Air Weight: 160 lb 4.417 oz Body Mass Index (BMI) 23.0 Intake & Output: Intake and Output for Last 24 Hours 10/14/23 10/15/23 10/16/23 23:59 23:59 23:59 Intake Total 750 / 750 720 / 720 200 / 200 Output Total 275 / 275 100 / 100 Balance 750 / 750 445 / 445 100 / 100 Lab / Micro Data 10/16/23 03:15 10/16/23 03:15 Labs: Laboratory Results - last 24 hr 10/15/23 16:40: Magnesium 2.1 10/16/23 03:15: WBC 11.1 H, RBC 3.67 L, Hgb 10.4 L, Hct 31.9 L, MCV 86.9, MCH 28.3, MCHC 32.6, RDW Std Deviation 57.7 H, RDW Coeff of Jesus 18.1 H, Plt Count 206, MPV 11.0, Sodium 131 L, Potassium 3.6, Chloride 99, Carbon Dioxide 25.0, Anion Gap 7, BUN 48 H, Creatinine 1.73 H, Estim Creat Clear Calc 42.61, Est GFR (MDRD) Af Amer 51 L, Est GFR (MDRD) Non-Af 42 L, BUN/Creatinine Ratio 27.7 H, Glucose 94, Calcium 8.4 L Rhythm Strip Rhythm Strip: A-fib Cardiology Labs/Tests 10/15/23 16:40: Magnesium 2.1 10/16/23 03:15: WBC 11.1 H, RBC 3.67 L, Hgb 10.4 L, Hct 31.9 L, MCV 86.9, MCH 28.3, MCHC 32.6, Plt Count 206, MPV 11.0, Sodium 131 L, Potassium 3.6, Chloride 99, Carbon Dioxide 25.0, Anion Gap 7, BUN 48 H, Creatinine 1.73 H, Est GFR (MDRD) Af Amer 51 L, Est GFR (MDRD) Non-Af 42 L, BUN/Creatinine Ratio 27.7 H, Glucose 94, Calcium 8.4 L Rhythm: EKG: ECHO: Stress Test: Cardiac Cath: PCI: CT Surgery: Holter monitor: EPS: PPM: CXR: Chest CT Scan: Physical Exam Const alert, oriented x3 and no apparent distress General Appearance: cooperative HEENT hearing grossly normal bilaterally Head and Scalp: atraumatic Eyes EOMs intact bilaterally Neck General: normal visual inspection Chest inspection of chest normal and palpation of chest normal Resp normal respiratory effort Auscultation: clear to auscultation bilaterally Cardio S1 normal heart sound and S2 normal heart sound Jugular Venous Distention: JVD Rhythm: abnormal rhythm regularly irregular GI normal to inspection, nondistended, normoactive bowel sounds Extremity normal capillary refill and no pedal edema Peripheral Pulses: Yes pulses 2+ throughout and femoral pulses present Skin no rashes or lesions noted Neuro oriented x3 and CN's II-XII intact bilaterally Psych Appearance: grossly normal and appropriate Assessment & Plan Assessment/Plan (1) Atrial fibrillation with RVR: PLAN: He does present with atrial fibrillation with rapid ventricular response rate which appears to be persistent at this time. * Recommendation will be to continue the amiodarone at 200 mg twice a day * On low-dose beta-ramiro with carvedilol 3.125 mg twice a day * Lanoxin for today only (2) Heart failure: PLAN: He does have evidence of nonischemic cardiomyopathy as per the history. The plan will be to get him on guideline directed medical therapy as follows: Low-dose beta-ramiro with carvedilol Entresto as his blood pressure is able to tolerate He appears to be fairly euvolemic and so we will hold off on diuretics at this time even though his natruretic peptide is mildly elevated at 400 (3) Left ventricular systolic dysfunction (LVSD), NYHA class 3: PLAN: He does have evidence of left ventricular systolic dysfunction as noted above and we will continue to titrate his medications appropriately. (4) Pre-syncope: PLAN: He does have evidence of presyncope which I suspect is due to medication induced blood pressure changes and or relative dehydration. He was given a fluid bolus with some improvement. We will continue to watch him overnight. Thank you for allowing me to participate in the care of your patient. Please don't hesitate to call if any issues arise. 10/16/23 0738 <Electronically signed by Jero Nicole MD> Cosigner Signature (if applicable): CC: ~ Signed [facility] Work Phone: 1(349) 351-566303-18-2024 Consult note Author Jero Nicole [facility] October 15, 2023 6:22pm Note Date/Time October 15, 2023 6:2 2pm [facility] Medical Records Department [address] [place] [address] Consultation - Cardiology 10/15/23 1815 MR#: [id number] Acct: [id number] Name: MESSI WALDROP Rep #:[id number] : 1955 68 From: Jero Nicole MD PCP: Dr. John Springer MD Status:AD M IN Location: ICU ICU02-1 Assessment & Plan Assessment/Plan (1) Atrial fibrillation with RVR: PLAN: He does present with atrial fibrillation with rapid ventricular response rate which appears to be persistent at this time. As he has been in the facility it may be prudent to continue the anticoagulation with Eliquis as we are doing. His rate should be controlled but it does not appear that he is ableto tolerate beta-blockers due to his hypotension. I would suggest that we increase the amiodarone to 200 mg twice a day. We should perhaps discontinue the digoxin. (2) Heart failure: PLAN: He does have evidence of nonischemic cardiomyopathy as per the history. The plan will be to get him on guideline directed medical therapy as follows: Low-dose beta-ramiro with carvedilol Entresto as his blood pressure is able to tolerate He appears to be fairly euvolemic and so we will hold off on diuretics at this time even though his natruretic peptide is mildly elevated at 400 (3) Left ventricular systolic dysfunction (LVSD), NYHA class 3: PLAN: He does have evidence of left ventricular systolic dysfunction as noted above and we will continue to titrate his medications appropriately. (4) Pre-syncope: PLAN: He does have evidence of presyncope which I suspect is due to medication induced blood pressure changes and or relative dehydration. He was given a fluid bolus with some improvement. We will continue to watch him overnight. Thank you for allowing me to participate in the care of your patient. Please don't hesitate to call if any issues arise. HPI Consult Data Date of Consult: 10/15/23 HPI Narrative HPI Narrative: MESSI WALDROP is a 68 M who presents to the emergency room because of generalized weakness and shortness of breath. He also had 2 falls at home with dizziness lightheadedness and he felt he was going to pass out. He apparently was recently discharged from [facility] in [place] and then also previously in the [facility]. He has a history of a nonischemic cardiomyopathy with an estimated ejection fraction of 15 to 20%, atrial fibrillation with rapid ventricular response rate, alcohol abuse with a concern for Warnicke's encephalopathy and tobacco abuse. He was recently noted to have the atrial fibrillation and was started on anticoagulation as well as guideline directed medical therapy. [facility] and then presented to [facility] with altered mental status which improved and was thought to be secondary to polypharmacy as well as respiratory failure. He denies that he has used any alcohol recently. He has complained ofthe above dizziness but has not had any gaby syncopal episodes. In the emergency room here in [place] he was noted to be in atrial fibrillation with a rapid ventricular response rate and was hypotensive. He was given 500 cc of normal saline with minimal improvement in his blood pressures but no significantimprovement in his heart rate. There was talk of transferring him to [facility] for further evaluation and management but there have been nobeds available and so he was admitted here and we were consulted by text. At this particular time the patient appears to be doing fairly well he is sitting up in bed with blood pressures of approximately 85 systolic without any dizzy spells. He denies any chest pain or shortness of breath or paroxysmal nocturnal dyspnea he does not have any pedal edema his heart rate is in the low 90s to low 100s. [facility] Medical History A-fib Acute blood loss anemia Alcohol withdrawal Anxiety Anxiety and depression At high risk for malnutrition Behavior concern in adult Chewing tobacco use COPD (chronic obstructive pulmonary disease) Depression ETOH abuse GI bleed History of cancer tonsil Hypertension Hyponatremia Irregular heart beat Smoker Substance abuse Home Medications folic acid 1 mg tablet 1 mg PO DAILY@0800 #30 tabs 05/30/23 [Rx Last Taken Unknown] thiamine HCl (vitamin B1) 100 mg tablet (Vitamin B-1) 100 mg PO DAILYCM #30 tabs107/30/22 [Rx Last Taken Unknown] albuterol sulfate 90 mcg/actuation aerosol inhaler 1 puff inhalation Q4H PRN PRNdyspnea 10/14/23 [History Last Taken Unknown] amiodarone 100 mg tablet 200 mg PO DAILY 10/14/23 [History Last Taken Unknown] apixaban 5 mg tablet (Eliquis) 5 mg PO BID 10/14/23 [History Last Taken Unknown] bumetanide 1 mg tablet 1 mg PO BID 10/14/23 [History Last Taken Unknown] calcium carbonate 215 mg calcium (500 mg) chewable tablet (Antacid Calcium) 537.5 mg PO DAILY 10/14/23 [History Last Taken Unknown] cholecalciferol (vitamin D3) 25 mcg (1,000 unit) tablet 25 mcg PO DAILY 10/14/23[History Last Taken Unknown] cyanocobalamin (vitamin B-12) 1,000 mcg tablet 500 mcg PO DAILY 10/14/23 [History Last Taken Unknown] digoxin 125 mcg (0.125 mg) tablet 62.5 mcg PO DAILY 10/14/23 [History Last Taken Unknown] empagliflozin 10 mg tablet (Jardiance) 10 mg PO DAILY diabetes mellitus 10/14/23[History Last Taken Unknown] fluticasone 100 mcg-salmeterol 50 mcg/dose blistr powdr for inhalation 1 ea inhalation DAILY 10/14/23 [History Last Taken Unknown] losartan 50 mg tablet 50 mg PO DAILY blood pressure 10/14/23 [History Last Taken Unknown] mirtazapine 7.5 mg tablet 7.5 mg PO QHS depressive disorder 10/14/23 [History Last Taken Unknown] pyridoxine (vitamin B6) 25 mg tablet (Vitamin B-6) 25 mg PO DAILY anemia 10/14/23 [History Last Taken Unknown] sacubitril 24 mg-valsartan 26 mg tablet (Entresto) 1 tab PO BID 10/14/23 [History Last Taken Unknown] spironolactone 25 mg tablet 25 mg PO DAILY blood pressure 10/14/23 [History Last Taken Unknown] benzocaine 15 mg-menthol 2.6 mg lozenges (Cepacol Sore Throat (benzocaine- menthol)) 1 forest mucous membrane Q2H PRN sore throat 10/15/23 [History Last Taken Unknown] budesonide-formoterol HFA 160 mcg-4.5 mcg/actuation aerosol inhaler (Symbicort) 1 inh inhalation BID SHORTNESS OF BREATH 10/15/23 [History Last Taken Unknown] melatonin 3 mg tablet 9 mg PO QHS PRN sleep 10/15/23 [History Last Taken Unknown] multivitamin with minerals-ferrous sulfate 4.5 mg iron tablet (One Daily Multivitamins with Minerals) 1 tab PO DAILY SUPPLEMENT 10/15/23 [History Last Taken Unknown] Allergy/AdvReac Type Severity Reaction Status Date / Time poison rich extract Allergy Mild RASH Verified 10/14/23 16:46 Family History Mother Diabetes Father Diabetes Brother Colon cancer Surgical History History of tonsillectomy and adenoidectomy Social History household members: other details: Lives with his son. Smoking Status: Former smoker Smokeless tobacco user: chewing tobacco and other alcohol intake: current alcohol intake frequency: 3 or more drinks per day details: 8-10 beers daily coupled with hard liquor. substance use type: does not use ROS Constitutional Constitutional: Denies fever(s) or weight loss Eyes Eyes: Reports systems reviewed and no addt'l complaints, except as documented ENT HEENT: Reports systems reviewed and no addt'l complaints, except as documented Cardiovascular Cardiovascular: Denies chest pain at rest, chest pain with activity, dyspnea at rest, dyspnea on exertion, edema, palpitations or paroxysmal nocturnal dyspnea Respiratory/Chest Respiratory/Chest: Denies dyspnea on exertion, productive cough, shortness of breath at rest or shortness of breath with exertion Gastrointestinal Gastrointestinal: Denies change in bowel habits, nausea, vomiting or weight changes Genitourinary Genitourinary: Denies difficulty urinating Musculoskeletal Musculoskeletal: Denies joint stiffness or muscle weakness Integumentary Integumentary: Denies lesions Neurologic Neurologic: Reports dizziness; Denies syncope Psychiatric Psychiatric: Denies anxiety Endocrine Endocrinology: Denies excessive sweating or fatigue Hematologic/Lymphatic Hematologic/Lymphatic: Denies anemia Allergic/Immunologic Allergic/Immunologic: Denies seasonal rhinorrhea Physical Exam Const alert, oriented x3 and no apparent distress General Appearance: cooperative HEENT hearing grossly normal bilaterally Head and Scalp: atraumatic Eyes EOMs intact bilaterally Neck General: normal visual inspection Chest inspection of chest normal and palpation of chest normal Resp normal respiratory effort Auscultation: clear to auscultation bilaterally Cardio S1 normal heart sound and S2 normal heart sound Jugular Venous Distention: JVD Rhythm: abnormal rhythm regularly irregular GI normal to inspection, nondistended, normoactive bowel sounds Extremity normal capillary refill and no pedal edema Peripheral Pulses: Yes pulses 2+ throughout and femoral pulses present Skin no rashes or lesions noted Neuro oriented x3 and CN's II-XII intact bilaterally Psych Appearance: grossly normal and appropriate Risk Stratification Risk Stratification Applicable: No Objective Data Vital Signs: Vital Signs Temp Pulse Resp BP Pulse Ox O2 Del Method 97.9 F 110 H 22 H 85/62 L 98 Room Air 10/15/23 15:30 10/15/23 18:00 10/15/23 18:00 10/15/23 18:00 10/15/23 18:00 10/15/23 18:00 Oxygen Delivery Method Room Air Weight: 158 lb 4.67 oz Body Mass Index (BMI) 22.7 Intake & Output: Intake and Output for Last 24 Hours 10/13/23 10/14/23 10/15/23 23:59 23:59 23:59 Intake Total 750 / 750 720 / 720 Output Total 75 / 75 Balance 750 / 750 645 / 645 Lab / Micro Data 10/14/23 16:54 10/14/23 16:54 Labs: Laboratory Results - last 24 hr 10/14/23 17:30: Digoxin 0.60 L 10/14/23 18:45: Urine Color Yellow, Urine Clarity Clear, Urine pH 6.5, Ur Specific [place] 1.010, Urine Protein 30 H, Urine Glucose (UA) 1000 H, Urine Ketones 15 H, Urine Occult Blood 10 H, Urine Nitrite Positive H, Urine Bilirubin3 H, Urine Urobilinogen 1 H, Ur Leukocyte Esterase 25 H, Urine RBC 0 SEEN, UrineWBC 0-5 SEEN, Ur Squamous Epith Cells 0 SEEN, Urine Bacteria 1+, Hyaline Casts 0-5 SEEN, Urine Mucus 1+ 10/15/23 16:40: Magnesium 2.1 Rhythm Strip Rhythm Strip: A-fib Cardiology Labs/Tests 10/14/23 17:30: Digoxin 0.60 L 10/14/23 18:45: Urine Color Yellow, Urine Clarity Clear, Urine pH 6.5, Ur Specific [place] 1.010, Urine Protein 30 H, Urine Glucose (UA) 1000 H, Urine Ketones 15 H, Urine Occult Blood 10 H, Urine Nitrite Positive H, Urine Bilirubin3 H, Urine Urobilinogen 1 H, Ur Leukocyte Esterase 25 H, Urine RBC 0 SEEN, UrineWBC 0-5 SEEN 10/15/23 16:40: Magnesium 2.1 Rhythm: EKG: ECHO: Stress Test: Cardiac Cath: PCI: CT Surgery: Holter monitor: EPS: PPM: CXR: Chest CT Scan: Radiography Diagnostic Testing: Radiology Impression Chest X-Ray 10/14/23 17:54 IMPRESSION: Normal x-ray examination of the chest. Electronically Signed: Johan Humphrey MD at 18:34 EDT , 10/15/23 1822 <Electronically signed by Jero Nicole MD> Cosigner Signature (if applicable): CC: Dr. John Springer MD; Dr. Jero Nicole MD~ Signed [facility] Work Phone: [phone] History and physical note Author [facility] October 15, 2023 3:57pm Note Date/Time October 15, 2023 1:2 3pm [facility] Medical Records Department [address] [place] [id number] H&P Exam - Hospitalist 10/15/23 1323 MR#: [id number] Acct: [id number] Name: MESSI WALDROP Winter Rep #:[id number] : 1955 68 From: Floyd Dixon marcelle BELTRÁN PCP: Dr. John Springer MD Status:AD M IN Location: ICU ICU02-1 HPI - General General Date of Admission: 10/15/23 Date of Service: 10/15/23 Chief Complaint: Falls with presyncopal symptoms HPI Narrative MESSI WALDROP is a 68 M who presented to [facility] ED on 4after having 2 falls at home with presyncopal symptoms. Patient's medical history is significant for recently diagnosed nonischemic cardiomyopathy with EF15 to 20%, A-fib with RVR, alcohol abuse with concern for Wernicke's encephalopathy, previous behavioral issues and combativeness with staff, anxiety/depression/insomnia, COPD and tobacco abuse. Was recently hospitalized at [facility] in [place] from 09/08-09/14/2023. Was also hospitalized at [facility] in July for about 1 week. At [facility], he was found to have new onset Afib with RVR, and his EF was newly reduced to 26% with global hypokinesis. Cardiology followed at [facility] and he wasstarted on anticoagulation and several other cardiac medications. He was discharged to SNF after that hospitalization. He then presented to [facility] from SNF with altered mental status. His mentation improved fairly quickly, was suspected to be multifactorial in setting of polypharmacy and mild respiratory failure in setting of bilateral pleural effusions. He was in A-fib with RVR during that admission as well, and repeat echo showed an EF of 15 to 20%. Cardiology followed there and his medications were adjusted again at that time. Patient was discharged home from that SNF 3 days ago. States has been taking all medications as prescribed. He denies any alcohol use since returning home. States that he has been eating and drinking fairly well. States that yesterday he had 2 falls at home and noticed that he was more lightheaded and dizzy when up and walking around. States that he has been urinating very frequently since being started on Bumex. States the falls did not happen while he was on the toilet, but rather happened while he was up and walking around. He denies fullypassing out with these falls. Denies hitting his head. In the ED, patient was found to be in A-fib with RVR and had fairly soft blood pressures. He was given a 500 cc bolus with mild improvement in his blood pressures. Given his significant heart failure and A-fib with RVR that has beendifficult to control, [facility] stranding [facility]. Unfortunately, patient was unable to get a bed quickly and on 10/14 the hospitalist was contacted to admit the patient. Patient seen at bedside in the ED. Sitting up comfortably in bed, conversing normally, no acute distress. He is making appropriate eye contact with me and answering all questions appropriately. He did become tearful at times when talking about his social history that led to increasing alcohol use in the past few years, but otherwise remained calm. He denied any acute pain or discomfort currently. Denied any chest pain, shortness of breath at rest, fevers or chills, abdominal pain or discomfort. Patient states he had just got up to go to the bathroom about 10 minutes prior to my arrival and did have mild lightheadedness and dizziness with getting up and walking around. Otherwise denies any other acute concerns at this time. Vitals in ED notable for A-fib with RVR with heart rate 110s to 130s, blood pressure borderline in the 80s to 90 systolic with MAPs around 65, breathing comfortably on room air with good O2 saturations, afebrile. Labs notable for mild leukocytosis, creatinine 1.35 (at baseline), BMP otherwise normal, BNP 459,digoxin level 0.60 (slightly low), alcohol level 0. Chest x-ray nonacute. Patient will be admitted to the ICU for further management. [facility] Medical History Acute blood loss anemia Alcohol withdrawal Anxiety Anxiety and depression At high risk for malnutrition Behavior concern in adult Chewing tobacco use COPD (chronic obstructive pulmonary disease) Depression ETOH abuse GI bleed History of cancer tonsil Hypertension Hyponatremia Irregular heart beat Smoker Substance abuse Home Medications folic acid 1 mg tablet 1 mg PO DAILY@0800 #30 tabs 05/30/23 [Rx Last Taken Unknown] thiamine HCl (vitamin B1) 100 mg tablet (Vitamin B-1) 100 mg PO DAILYCM #30 tabs107/30/22 [Rx Last Taken Unknown] albuterol sulfate 90 mcg/actuation aerosol inhaler 1 puff inhalation Q4H PRN PRNdyspnea 10/14/23 [History Last Taken Unknown] amiodarone 100 mg tablet 200 mg PO DAILY 10/14/23 [History Last Taken Unknown] apixaban 5 mg tablet (Eliquis) 5 mg PO BID 10/14/23 [History Last Taken Unknown] bumetanide 1 mg tablet 1 mg PO BID 10/14/23 [History Last Taken Unknown] calcium carbonate 215 mg calcium (500 mg) chewable tablet (Antacid Calcium) 537.5 mg PO DAILY 10/14/23 [History Last Taken Unknown] cholecalciferol (vitamin D3) 25 mcg (1,000 unit) tablet 25 mcg PO DAILY 10/14/23[History Last Taken Unknown] cyanocobalamin (vitamin B-12) 1,000 mcg tablet 500 mcg PO DAILY 10/14/23 [History Last Taken Unknown] digoxin 125 mcg (0.125 mg) tablet 62.5 mcg PO DAILY 10/14/23 [History Last Taken Unknown] empagliflozin 10 mg tablet (Jardiance) 10 mg PO DAILY diabetes mellitus 10/14/23[History Last Taken Unknown] fluticasone 100 mcg-salmeterol 50 mcg/dose blistr powdr for inhalation 1 ea inhalation DAILY 10/14/23 [History Last Taken Unknown] losartan 50 mg tablet 50 mg PO DAILY blood pressure 10/14/23 [History Last Taken Unknown] mirtazapine 7.5 mg tablet 7.5 mg PO QHS depressive disorder 10/14/23 [History Last Taken Unknown] pyridoxine (vitamin B6) 25 mg tablet (Vitamin B-6) 25 mg PO DAILY anemia 10/14/23 [History Last Taken Unknown] sacubitril 24 mg-valsartan 26 mg tablet (Entresto) 1 tab PO BID 10/14/23 [History Last Taken Unknown] spironolactone 25 mg tablet 25 mg PO DAILY blood pressure 10/14/23 [History Last Taken Unknown] benzocaine 15 mg-menthol 2.6 mg lozenges (Cepacol Sore Throat (benzocaine- menthol)) 1 forest mucous membrane Q2H PRN sore throat 10/15/23 [History Last Taken Unknown] budesonide-formoterol HFA 160 mcg-4.5 mcg/actuation aerosol inhaler (Symbicort) 1 inh inhalation BID SHORTNESS OF BREATH 10/15/23 [History Last Taken Unknown] melatonin 3 mg tablet 9 mg PO QHS PRN sleep 10/15/23 [History Last Taken Unknown] multivitamin with minerals-ferrous sulfate 4.5 mg iron tablet (One Daily Multivitamins with Minerals) 1 tab PO DAILY SUPPLEMENT 10/15/23 [History Last Taken Unknown] Allergy/AdvReac Type Severity Reaction Status Date / Time poison rich extract Allergy Mild RASH Verified 10/14/23 16:46 Family History Mother Diabetes Father Diabetes Brother Colon cancer Surgical History History of tonsillectomy and adenoidectomy Social History household members: other details: Lives with his son. Smoking Status: Former smoker Smokeless tobacco user: chewing tobacco and other alcohol intake: current alcohol intake frequency: 3 or more drinks per day details: 8-10 beers daily coupled with hard liquor. substance use type: does not use ROS Constitutional Constitutional: Denies chills, fatigue, fever(s) or weakness Eyes Eyes: Denies change in vision Cardiovascular Cardiovascular: Reports lightheadedness; Denies chest pain, dyspnea on exertion,edema, orthopnea, palpitations, rapid heart rate or syncope Respiratory/Chest Respiratory/Chest: Denies cough, shortness of breath at rest, shortness of breath with exertion or wheezing Gastrointestinal Gastrointestinal: Denies abdominal pain Genitourinary Genitourinary: Denies dysuria Musculoskeletal Musculoskeletal: Denies arthralgias or back pain Neurologic Neurologic: Reports dizziness; Denies headache(s) or tremor(s) Vital Signs Vital Signs Vital Signs: 10/14/23 16:39 10/14/23 16:57 10/14/23 17:50 Temperature 98.6 F Temperature Source Oral Pulse Rate 150 H 123 H Respiratory Rate 22 H 16 Respiratory Effort Normal Blood Pressure 93/71 80/48 L Blood Pressure Mean 78 58 Pulse Ox 100 95 Oxygen Delivery Method Room Air Room Air 10/14/23 18:00 10/14/23 17:08 10/14/23 17:10 Temperature Temperature Source Pulse Rate 128 H 141 H 128 H Respiratory Rate 16 21 H 21 H Respiratory Effort Blood Pressure 103/73 Blood Pressure Mean 83 Pulse Ox 94 99 100 Oxygen Delivery Method Room Air 10/14/23 17:15 10/14/23 17:20 10/14/23 17:30 Temperature Temperature Source Pulse Rate 130 H 139 H 121 H Respiratory Rate 20 H 20 H 18 Respiratory Effort Blood Pressure 84/54 L 91/53 L Blood Pressure Mean 61 64 Pulse Ox 100 99 98 Oxygen Delivery Method 10/14/23 17:40 10/14/23 17:45 10/14/23 17:49 Temperature Temperature Source Pulse Rate 123 H Respiratory Rate 20 H Respiratory Effort Blood Pressure 80/59 L 80/42 L Blood Pressure Mean 68 56 Pulse Ox 99 Oxygen Delivery Method 10/14/23 17:50 10/14/23 18:00 10/14/23 18:10 Temperature Temperature Source Pulse Rate 142 H 120 H Respiratory Rate 24 H 16 Respiratory Effort Blood Pressure 103/73 Blood Pressure Mean 82 Pulse Ox 100 Oxygen Delivery Method 10/14/23 18:15 10/14/23 18:20 10/14/23 18:28 Temperature Temperature Source Pulse Rate 127 H 135 H 129 H Respiratory Rate 20 H 16 24 H Respiratory Effort Blood Pressure 76/59 L 102/63 Blood Pressure Mean 67 74 Pulse Ox 99 Oxygen Delivery Method 10/14/23 18:30 10/14/23 18:40 10/14/23 18:45 Temperature Temperature Source Pulse Rate 123 H 122 H Respiratory Rate 18 34 H Respiratory Effort Blood Pressure 104/57 L 97/70 Blood Pressure Mean 70 79 Pulse Ox Oxygen Delivery Method 10/14/23 18:50 10/14/23 19:00 10/14/23 19:10 Temperature Temperature Source Pulse Rate 130 H 123 H 132 H Respiratory Rate 17 17 16 Respiratory Effort Blood Pressure 93/68 Blood Pressure Mean 78 Pulse Ox Oxygen Delivery Method 10/14/23 19:15 10/14/23 19:20 10/14/23 19:30 Temperature Temperature Source Pulse Rate 128 H 124 H 141 H Respiratory Rate 19 H 18 22 H Respiratory Effort Blood Pressure 92/59 L 99/67 Blood Pressure Mean 70 78 Pulse Ox Oxygen Delivery Method 10/14/23 19:40 10/14/23 19:45 10/14/23 19:50 Temperature Temperature Source Pulse Rate 132 H 128 H 128 H Respiratory Rate 21 H 25 H 19 H Respiratory Effort Blood Pressure 93/67 Blood Pressure Mean 76 Pulse Ox Oxygen Delivery Method 10/14/23 20:00 10/14/23 20:10 10/14/23 20:15 Temperature Temperature Source Pulse Rate 131 H 128 H Respiratory Rate 21 H 24 H Respiratory Effort Blood Pressure 92/59 L 92/56 L Blood Pressure Mean 70 68 Pulse Ox Oxygen Delivery Method 10/14/23 20:27 10/14/23 20:30 10/14/23 20:45 Temperature Temperature Source Pulse Rate 125 H 117 H 120 H Respiratory Rate 19 H 17 18 Respiratory Effort Blood Pressure 99/63 107/52 L 96/55 L Blood Pressure Mean 76 68 66 Pulse Ox 93 100 Oxygen Delivery Method 10/14/23 21:00 10/14/23 21:00 10/14/23 21:15 Temperature Temperature Source Pulse Rate 124 H 133 H Respiratory Rate 20 H 20 H Respiratory Effort Blood Pressure 96/59 L 96/59 L 99/57 L Blood Pressure Mean 71 71 69 Pulse Ox 100 99 Oxygen Delivery Method 10/14/23 21:30 10/14/23 21:31 10/14/23 21:45 Temperature Temperature Source Pulse Rate 121 H 129 H 123 H Respiratory Rate 23 H 18 22 H Respiratory Effort Blood Pressure 102/62 96/53 L Blood Pressure Mean 75 67 Pulse Ox 99 98 98 Oxygen Delivery Method 10/14/23 22:00 10/14/23 22:15 10/14/23 23:10 Temperature Temperature Source Pulse Rate 127 H 140 H 58 L Respiratory Rate 26 H 20 H 16 Respiratory Effort Blood Pressure 93/56 L 113/56 L 116/67 Blood Pressure Mean 64 74 83 Pulse Ox 99 98 100 Oxygen Delivery Method 10/15/23 00:00 10/15/23 01:00 10/15/23 02:00 Temperature Temperature Source Pulse Rate 88 110 H 120 H Respiratory Rate 16 18 20 H Respiratory Effort Blood Pressure 105/62 103/69 103/64 Blood Pressure Mean 76 80 77 Pulse Ox 99 98 98 Oxygen Delivery Method Room Air Room Air 10/15/23 03:00 10/14/23 22:30 10/14/23 22:45 Temperature 98.0 F Temperature Source Temporal Pulse Rate 142 H 135 H 133 H Respiratory Rate 20 H 26 H 17 Respiratory Effort Blood Pressure 91/60 117/68 Blood Pressure Mean 70 83 Pulse Ox 96 100 98 Oxygen Delivery Method Room Air 10/14/23 22:46 10/14/23 23:00 10/14/23 23:01 Temperature Temperature Source Pulse Rate 137 H Respiratory Rate 14 Respiratory Effort Blood Pressure 98/54 L 116/67 Blood Pressure Mean 69 81 Pulse Ox 99 100 Oxygen Delivery Method 10/14/23 23:15 10/14/23 23:30 10/14/23 23:45 Temperature Temperature Source Pulse Rate Respiratory Rate Respiratory Effort Blood Pressure 103/62 122/86 H 107/62 Blood Pressure Mean 73 99 75 Pulse Ox 95 100 Oxygen Delivery Method 10/15/23 00:00 10/15/23 00:15 10/15/23 00:30 Temperature Temperature Source Pulse Rate Respiratory Rate Respiratory Effort Blood Pressure 85/67 L 97/70 87/40 L Blood Pressure Mean 74 80 54 Pulse Ox 98 98 97 Oxygen Delivery Method 10/15/23 00:45 10/15/23 01:00 10/15/23 01:15 Temperature Temperature Source Pulse Rate Respiratory Rate Respiratory Effort Blood Pressure 105/62 103/89 H 98/48 L Blood Pressure Mean 75 94 64 Pulse Ox 98 98 97 Oxygen Delivery Method 10/15/23 01:30 10/15/23 01:41 10/15/23 01:45 Temperature Temperature Source Pulse Rate 109 H Respiratory Rate Respiratory Effort Blood Pressure 111/70 Blood Pressure Mean 81 Pulse Ox 98 100 98 Oxygen Delivery Method Room Air 10/15/23 02:00 10/15/23 02:11 10/15/23 02:15 Temperature Temperature Source Pulse Rate 133 H 130 H Respiratory Rate 22 H 19 H Respiratory Effort Blood Pressure 103/64 103/72 Blood Pressure Mean 76 82 Pulse Ox 97 99 Oxygen Delivery Method 10/15/23 02:30 10/15/23 02:45 10/15/23 02:52 Temperature Temperature Source Pulse Rate 150 H 138 H 127 H Respiratory Rate 22 H 19 H Respiratory Effort Blood Pressure 92/49 L 74/57 L 74/54 L Blood Pressure Mean 61 63 62 Pulse Ox 97 95 96 Oxygen Delivery Method 10/15/23 02:54 10/15/23 03:00 10/15/23 03:15 Temperature Temperature Source Pulse Rate 145 H 136 H 135 H Respiratory Rate 21 H 18 20 H Respiratory Effort Blood Pressure 91/60 74/55 L 90/49 L Blood Pressure Mean 71 62 63 Pulse Ox 96 96 96 Oxygen Delivery Method 10/15/23 03:30 10/15/23 03:45 10/15/23 04:00 Temperature Temperature Source Pulse Rate 114 H Respiratory Rate 21 H Respiratory Effort Blood Pressure 81/49 L 91/54 L 88/59 L Blood Pressure Mean 59 63 67 Pulse Ox 96 Oxygen Delivery Method 10/15/23 05:00 10/15/23 06:00 10/15/23 07:00 Temperature 98.0 F Temperature Source Temporal Pulse Rate 111 H 108 H 112 H Respiratory Rate 118 H 22 H 21 H Respiratory Effort Blood Pressure 84/49 L 85/59 L 83/60 L Blood Pressure Mean 60 67 67 Pulse Ox 98 98 96 Oxygen Delivery Method Room Air Room Air Room Air 10/15/23 04:15 10/15/23 04:30 10/15/23 04:45 Temperature Temperature Source Pulse Rate 113 H 107 H 115 H Respiratory Rate 20 H 22 H 20 H Respiratory Effort Blood Pressure 86/57 L 86/59 L 77/51 L Blood Pressure Mean 63 69 61 Pulse Ox 97 97 97 Oxygen Delivery Method 10/15/23 04:56 10/15/23 05:00 10/15/23 05:15 Temperature Temperature Source Pulse Rate 108 H 111 H 106 H Respiratory Rate 22 H Respiratory Effort Blood Pressure 85/51 L 84/49 L 96/53 L Blood Pressure Mean 61 59 65 Pulse Ox 97 97 98 Oxygen Delivery Method 10/15/23 05:30 10/15/23 05:45 10/15/23 06:00 Temperature Temperature Source Pulse Rate 114 H 97 Respiratory Rate 19 H 20 H Respiratory Effort Blood Pressure 98/61 83/61 L 69/46 L Blood Pressure Mean 69 69 56 Pulse Ox 98 97 98 Oxygen Delivery Method 10/15/23 06:05 10/15/23 06:15 10/15/23 06:30 Temperature Temperature Source Pulse Rate 109 H 106 H 106 H Respiratory Rate 22 H 20 H 20 H Respiratory Effort Blood Pressure 85/59 L 78/54 L 104/72 Blood Pressure Mean 69 63 83 Pulse Ox 95 97 95 Oxygen Delivery Method 10/15/23 06:45 10/15/23 07:00 10/15/23 07:15 Temperature Temperature Source Pulse Rate 98 101 H Respiratory Rate 17 20 H Respiratory Effort Blood Pressure 85/61 L 83/60 L 90/55 L Blood Pressure Mean 71 66 66 Pulse Ox 97 97 Oxygen Delivery Method 10/15/23 07:30 10/15/23 07:45 10/15/23 08:00 Temperature Temperature Source Pulse Rate 102 H 111 H 105 H Respiratory Rate 20 H 21 H 18 Respiratory Effort Blood Pressure 91/56 L 86/60 L 92/52 L Blood Pressure Mean 68 68 61 Pulse Ox 97 98 98 Oxygen Delivery Method 10/15/23 08:15 10/15/23 08:30 10/15/23 08:31 Temperature Temperature Source Pulse Rate 107 H 103 H Respiratory Rate 22 H 21 H Respiratory Effort Blood Pressure 87/50 L 79/58 L Blood Pressure Mean 60 66 Pulse Ox 97 98 Oxygen Delivery Method 10/15/23 08:45 10/15/23 09:00 10/15/23 09:12 Temperature Temperature Source Pulse Rate 105 H 105 H 101 H Respiratory Rate 21 H 22 H 21 H Respiratory Effort Blood Pressure 105/57 L 83/67 L 96/53 L Blood Pressure Mean 69 75 66 Pulse Ox 99 97 97 Oxygen Delivery Method 10/15/23 09:15 10/15/23 09:30 10/15/23 09:45 Temperature Temperature Source Pulse Rate 113 H 110 H Respiratory Rate 23 H 19 H Respiratory Effort Blood Pressure 108/58 L 105/60 Blood Pressure Mean 66 69 Pulse Ox Oxygen Delivery Method 10/15/23 10:00 10/15/23 10:41 10/15/23 11:30 Temperature Temperature Source Pulse Rate 121 H 117 H Respiratory Rate 18 24 H Respiratory Effort Blood Pressure 80/64 L 94/65 79/60 L Blood Pressure Mean 69 74 69 Pulse Ox 99 98 99 Oxygen Delivery Method Room Air 10/15/23 12:00 10/15/23 12:45 Temperature 98.9 F Temperature Source Oral Pulse Rate 115 H 117 H Respiratory Rate 23 H 22 H Respiratory Effort Blood Pressure 104/55 L Blood Pressure Mean 71 Pulse Ox 96 97 Oxygen Delivery Method Room Air Weight Weight: 76.2 kg Body Mass Index (BMI) 24.0 Physical Exam Const alert, oriented x3, no apparent distress and average body habitus Constitutional Narrative: Elderly male, disheveled appearing, sitting up comfortably in bed and answering questions appropriately but does appear somewhat emotionally labile, otherwise in no acute distress. General Appearance: cooperative and comfortable HEENT normocephalic, head/scalp atraumatic, hearing grossly normal bilaterally and nasal mucous membranes and turbinates normal Eyes PERRL, EOMs intact bilaterally and conjunctivae normal Neck full ROM and no JVD Chest inspection of chest normal Resp normal respiratory effort, normal air movement, no use of accessory muscles and clear to auscultation bilaterally Resp Narrative: Breathing comfortably on room air, good air movement bilaterally, no wheezing orcrackles noted. Cardio no murmurs and peripheral pulses 2+ throughout Cardio Narrative: A-fib with RVR. GI normal to inspection, nondistended, normoactive bowel sounds, soft to palpation,non-tender and non-distended Back/Spine normal ROM Extremity normal to inspection, full ROM and no pedal edema Skin no rashes or lesions noted Neuro moves all extremities and no focal motor deficits Speech: speech normal Psych mental status grossly normal Mood & Affect: anxious Results Lab / Micro Data 10/14/23 16:54 10/14/23 16:54 Labs: Laboratory Results - last 24 hr 10/14/23 16:54: WBC 14.6 H, RBC 4.51 L, Hgb 12.8 L, Hct 39.9 L, MCV 88.5, MCH 28.4, MCHC 32.1, RDW Std Deviation 57.0 H, RDW Coeff of Jesus 17.6 H, Plt Count 248, MPV 11.1, Immature Gran % (Auto) 0.500, Neut % (Auto) 84.0 H, Lymph % (Auto) 6.2 L, Norman % (Auto) 9.1, Eos % (Auto) 0.0, Baso % (Auto) 0.2, Absolute Neuts (auto) 12.2 H, Absolute Lymphs (auto) 0.91, Nucleated RBC % 0, Sodium 134 L, Potassium 4.0, Chloride 101, Carbon Dioxide 25.0, Anion Gap 8, BUN 22 H, Creatinine 1.34 H, Estim Creat Clear Calc 55.23, Est GFR (MDRD) Af Amer 68, Est GFR (MDRD) Non-Af 56 L, BUN/Creatinine Ratio 16.4, Glucose 95, Calcium 9.5, Troponin I High Sens 11, B-Natriuretic Peptide 459.7 H 10/14/23 17:30: Digoxin 0.60 L, Ethyl Alcohol < 3.0 10/14/23 18:45: Urine Color Yellow, Urine Clarity Clear, Urine pH 6.5, Ur Specific [place] 1.010, Urine Protein 30 H, Urine Glucose (UA) 1000 H, Urine Ketones 15 H, Urine Occult Blood 10 H, Urine Nitrite Positive H, Urine Bilirubin 3 H, Urine Urobilinogen 1 H, Ur Leukocyte Esterase 25 H, Urine RBC 0 SEEN, Urine WBC 0-5 SEEN, Ur Squamous Epith Cells 0 SEEN, Urine Bacteria 1+, Hyaline Casts 0-5 SEEN, Urine Mucus 1+ Imaging Radiology Impression Chest X-Ray 10/14/23 17:54 IMPRESSION: Normal x-ray examination of the chest. Electronically Signed: Johan Humphrey MD at 18:34 EDT , Assessment & Plan Assessment/Plan (1) Atrial fibrillation with RVR: (2) Falls: (3) Pre-syncope: (4) Acute hypotension: (5) Debility: (6) Heart failure: PLAN: Plan Patient is a 68-year-old male who presented to [facility] ED on 10/15/2023 with falls at home with presyncopal symptoms. 1. Falls with presyncopal symptoms, Hypotension ? Most likely secondary to low BPs/orthostatic hypotension from overdiuresis in setting of extensive medication regimen for new heart failure. ? Given 500 cc bolus in ED with only mild improvement in BP, MAP has consistently been ~60-70. ? Admit under inpatient status to the ICU. Gave another 500 cc fluid bolus justprior to patient moving over to the ICU. Cardiology consulted. Recommend holding on further fluids for now, can use low-dose Levophed through peripheral IV if needed. Continue home amiodarone and digoxin for rate control, otherwise holding other home heart failure medications including Bumex, empagliflozin, losartan, Entresto, spironolactone. Continuous cardiac monitoring. 2. A-fib with RVR ? Known history, recently diagnosed in July. Last saw cardiology during hospital admission in [place] in August. Current meds are amiodarone 200 mg daily, digoxin 62.5 mg daily, Eliquis 5 mg twice daily. ? In A-fib in ED here, rates ranging from 110s to 130s. Digoxin level slightly below therapeutic range in ED. Given 1 dose of IV digoxin and home amiodarone in ED with minimal change in heart rate. ? Cardiology consulted as above. Continue home medications. Continuous cardiacmonitoring. Maintain potassium > 4, magnesium > 2. 3. HFrEF, nonischemic cardiomyopathy ? Also diagnosed in July, see HPI for further details. Last echo in Augustshowed an EF of 15 to 20%. Last saw cardiology during that admission as noted above. Home regimen prior to admission here was Bumex 1 mg twice daily, empagliflozin 10 mg daily, losartan 50 mg daily, Entresto 24-26 mg twice daily, spironolactone 25 mg daily. ? Cardiology consulted as above. Holding home medications. 4. Mild leukocytosis ? WBC count 14.6 on admit. Low concern for active infection, follow-up a.m. CBC. 5. History of alcohol abuse with suspected Wernicke's encephalopathy ? Reported last alcohol use was prior to his July admission to [facility]. Alcohol level of 0 on admit. Denies any withdrawal symptoms. ? Alert and oriented in the ED, answering questions appropriately. ? Continue home folate and thiamine. No need for CIWA protocol at this time. 6. Debility ? In setting of multiple recent hospitalizations with behavioral issues also contributing. Did require SNF placement after his recent hospitalizations in July and August. ? PT/OT/case management consulted. Chronic medical conditions: ? CKD stage III: Creatinine 1.35 on admit, at baseline, stable. ? Anxiety/depression/insomnia: Continue home melatonin, mirtazapine. ? COPD: Stable on room air, no concern for exacerbation. Continue home inhalers. ? Tobacco use: Nicotine replacement therapy available as needed. DVT prophylaxis: Eliquis CODE STATUS: Full code, verified Expected disposition: Transfer to [facility] in [place] when bed is available Total clinical time spent by myself addressing the patient's medical issues, reviewing all the data, and collaborating with patient's care team: 75 minutes. Charges/Coding Visit Charges Inpatient E&M: 89066 Init Hosp L3 10/15/23 1557 <Electronically signed by Floyd Mcadams DO> Cosigner Signature (if applicable): CC: Dr. Floyd Mcadams DO; Dr. John Springer MD~ Signed [facility] Work Phone: [phone] Discharge summary Author Daniel Inman [facility] October 15, 2023 7:13am Note Date/Time October 14, 2023 5:2 5pm [facility] Medical Records Department [address] [place] [address] Emergency Department Summary 10/14/23 MR#: [id number] Acct: [id number] Name: MESSI WALDROP Winter Rep #:[id number] : 1955 68 From: Frank MUÑOZ PCP: Dr. John Springer MD Status:RE G ER Location: ED ADDENDUM by Dr. Daniel Inman MD on 10/15/23 at 0713 At the time of checkout patient was excepted at [place]. Initially awaiting for a ride. We were then informed by outside facility that they presently do not have beds to accept him. They stated at 7 AM they would know if a bed will be available for him in the morning. If a bed is not available for him in the morning he will need to be admitted to [facility] until a bed becomes available at [facility] in [place]. 10/15/23 0713<Electronically signed by Daniel Inman MD> Cosigner Signature (if applicable): 10/14/23 7677 <Electronically signed by Kelechi Miles DO> cc: Dr. John Springer MD ~* Signed HPI <TONI Calles - Last Filed: 10/14/23 20:56> History of Present Illness Chief Complaint: Palpitations Narrative Narrative: 68-year-old male with PMH of A-fib presents after falling twice today. He states this morning he had to urinate about [address] back to his room he fell twice. He states maybe he felt lightheaded but is not really sure. He did not hit his head or lose consciousness. He has a minor bump on his right arm. He was brought in by his son for evaluation. He recently had a 6-week inpatient stay for alcohol detox and just went home about 3 days ago. He has had 1 beer since discharge. During the last few months he was also newly diagnosed with A-fib and given an external defibrillator vest but he states he does not wear it. He is taking his multiple cardiac medications as prescribed. He supposed to check his blood pressure and only take some of them if it is high; however, today his brother gave his meds even though his pressure was normal so his son thinks this may have caused him to fall. Patient denies chestpain. He states he feels mildly short of breath. No palpitations or syncope. [facility] <TONI Calles - Last Filed: 10/14/23 20:56> [facility] Medical History Acute blood loss anemia Alcohol withdrawal Anxiety Anxiety and depression At high risk for malnutrition Behavior concern in adult Chewing tobacco use COPD (chronic obstructive pulmonary disease) Depression ETOH abuse GI bleed History of cancer tonsil Hypertension Hyponatremia Irregular heart beat Smoker Substance abuse Home Medications melatonin 5 mg tablet 10 mg PO QHS 05/16/23 [History Last Taken 05/15/23] folic acid 1 mg tablet 1 mg PO DAILY@0800 #30 tabs 05/30/23 [Rx Last Taken Unknown] ibuprofen-diphenhydramine citrate 200 mg-38 mg tablet (Ibuprofen PM) 2 cap PO QHS PRN PAIN 3 days #0 tabs 05/30/23 [Rx Last Taken 05/15/23] nicotine 21 mg/24 hr daily transdermal patch 21 mg transdermal DAILY #21 ea 05/30/23 [Rx Last Taken Unknown] thiamine HCl (vitamin B1) 100 mg tablet (Vitamin B-1) 100 mg PO DAILYCM #30 tabs107/30/22 [Rx Last Taken Unknown] albuterol sulfate 90 mcg/actuation aerosol inhaler 1 puff inhalation Q4H PRN PRNdyspnea 10/14/23 [History Last Taken Unknown] amiodarone 100 mg tablet 200 mg PO DAILY 10/14/23 [History Last Taken Unknown] apixaban 5 mg tablet (Eliquis) 5 mg PO BID 10/14/23 [History Last Taken Unknown] bumetanide 1 mg tablet 1 mg PO BID 10/14/23 [History Last Taken Unknown] calcium carbonate 215 mg calcium (500 mg) chewable tablet (Antacid Calcium) 537.5 mg PO DAILY 10/14/23 [History Last Taken Unknown] cholecalciferol (vitamin D3) 25 mcg (1,000 unit) tablet 25 mcg PO DAILY 10/14/23[History Last Taken Unknown] cyanocobalamin (vitamin B-12) 1,000 mcg tablet 500 mcg PO DAILY 10/14/23 [History Last Taken Unknown] digoxin 125 mcg (0.125 mg) tablet 62.5 mcg PO DAILY 10/14/23 [History Last Taken Unknown] empagliflozin 10 mg tablet (Jardiance) 10 mg PO DAILY diabetes mellitus 10/14/23[History Last Taken Unknown] fluticasone 100 mcg-salmeterol 50 mcg/dose blistr powdr for inhalation 1 ea inhalation DAILY 10/14/23 [History Last Taken Unknown] losartan 50 mg tablet 50 mg PO DAILY blood pressure 10/14/23 [History Last Taken Unknown] mirtazapine 7.5 mg tablet 7.5 mg PO QHS depressive disorder 10/14/23 [History Last Taken Unknown] pyridoxine (vitamin B6) 25 mg tablet (Vitamin B-6) 25 mg PO DAILY anemia 10/14/23 [History Last Taken Unknown] sacubitril 24 mg-valsartan 26 mg tablet (Entresto) 1 tab PO BID 10/14/23 [History Last Taken Unknown] spironolactone 25 mg tablet 25 mg PO DAILY blood pressure 10/14/23 [History Last Taken Unknown] Allergy/AdvReac Type Severity Reaction Status Date / Time poison rich extract Allergy Mild RASH Verified 10/14/23 16:46 Family History Mother Diabetes Father Diabetes Brother Colon cancer Surgical History History of tonsillectomy and adenoidectomy Social History household members: other details: Lives with his son. Smoking Status: Former smoker Smokeless tobacco user: chewing tobacco and other alcohol intake: current alcohol intake frequency: 3 or more drinks per day details: 8-10 beers daily coupled with hard liquor. substance use type: does not use ROS <TONI Calles - Last Filed: 10/14/23 20:56> ROS ED ROS Narrative Constitutional: Negative for fever, chills, malaise. CVS: Negative for palpitations, chest pain. Respiratory: Negative for cough, orthopnea. GI: Negative for abdominal pain, nausea, vomiting, melena, hematochezia. EXAM <TONI Calles - Last Filed: 10/14/23 20:56> Physical Exam Narrative Exam Narrative: CONST: Patient sitting in no acute distress. EYES: Normal inspection. NECK: Normal inspection. RESP: No respiratory distress, CTAB. CVS: Tachycardic irregularly irregular rhythm, no murmur, no gallop. ABD: Soft and nontender, no guarding or rebound, nondistended. SKIN: Color normal, no rash, warm, dry, intact. EXTREMITIES: Normal appearance, no pedal edema. NEURO: Oriented x4. PSYCH: Normal affect. Const Vital Signs: 10/14/23 16:39 10/14/23 16:57 10/14/23 17:50 Temperature 98.6 F Temperature Source Oral Pulse Rate 150 H 123 H Respiratory Rate 22 H 16 Respiratory Effort Normal Blood Pressure 93/71 80/48 L Blood Pressure Mean 78 58 Pulse Ox 100 95 Oxygen Delivery Method Room Air Room Air 10/14/23 18:00 10/14/23 17:08 10/14/23 17:10 Temperature Temperature Source Pulse Rate 128 H 141 H 128 H Respiratory Rate 16 21 H 21 H Respiratory Effort Blood Pressure 103/73 Blood Pressure Mean 83 Pulse Ox 94 99 100 Oxygen Delivery Method Room Air 10/14/23 17:15 10/14/23 17:20 10/14/23 17:30 Temperature Temperature Source Pulse Rate 130 H 139 H 121 H Respiratory Rate 20 H 20 H 18 Respiratory Effort Blood Pressure 84/54 L 91/53 L Blood Pressure Mean 61 64 Pulse Ox 100 99 98 Oxygen Delivery Method 10/14/23 17:40 10/14/23 17:45 10/14/23 17:49 Temperature Temperature Source Pulse Rate 123 H Respiratory Rate 20 H Respiratory Effort Blood Pressure 80/59 L 80/42 L Blood Pressure Mean 68 56 Pulse Ox 99 Oxygen Delivery Method 10/14/23 17:50 10/14/23 18:00 10/14/23 18:10 Temperature Temperature Source Pulse Rate 142 H 120 H Respiratory Rate 24 H 16 Respiratory Effort Blood Pressure 103/73 Blood Pressure Mean 82 Pulse Ox 100 Oxygen Delivery Method 10/14/23 18:15 10/14/23 18:20 10/14/23 18:28 Temperature Temperature Source Pulse Rate 127 H 135 H 129 H Respiratory Rate 20 H 16 24 H Respiratory Effort Blood Pressure 76/59 L 102/63 Blood Pressure Mean 67 74 Pulse Ox 99 Oxygen Delivery Method 10/14/23 18:30 10/14/23 18:40 10/14/23 18:45 Temperature Temperature Source Pulse Rate 123 H 122 H Respiratory Rate 18 34 H Respiratory Effort Blood Pressure 104/57 L 97/70 Blood Pressure Mean 70 79 Pulse Ox Oxygen Delivery Method 10/14/23 18:50 10/14/23 19:00 10/14/23 19:10 Temperature Temperature Source Pulse Rate 130 H 123 H 132 H Respiratory Rate 17 17 16 Respiratory Effort Blood Pressure 93/68 Blood Pressure Mean 78 Pulse Ox Oxygen Delivery Method 10/14/23 19:15 10/14/23 19:20 10/14/23 19:30 Temperature Temperature Source Pulse Rate 128 H 124 H 141 H Respiratory Rate 19 H 18 22 H Respiratory Effort Blood Pressure 92/59 L 99/67 Blood Pressure Mean 70 78 Pulse Ox Oxygen Delivery Method 10/14/23 19:40 10/14/23 19:45 10/14/23 19:50 Temperature Temperature Source Pulse Rate 132 H 128 H 128 H Respiratory Rate 21 H 25 H 19 H Respiratory Effort Blood Pressure 93/67 Blood Pressure Mean 76 Pulse Ox Oxygen Delivery Method 10/14/23 20:00 10/14/23 20:10 10/14/23 20:15 Temperature Temperature Source Pulse Rate 131 H 128 H Respiratory Rate 21 H 24 H Respiratory Effort Blood Pressure 92/59 L 92/56 L Blood Pressure Mean 70 68 Pulse Ox Oxygen Delivery Method 10/14/23 20:27 10/14/23 20:30 10/14/23 20:45 Temperature Temperature Source Pulse Rate 125 H 117 H 120 H Respiratory Rate 19 H 17 18 Respiratory Effort Blood Pressure 99/63 107/52 L 96/55 L Blood Pressure Mean 76 68 66 Pulse Ox 93 100 Oxygen Delivery Method 10/14/23 21:00 10/14/23 21:00 10/14/23 21:15 Temperature Temperature Source Pulse Rate 124 H 133 H Respiratory Rate 20 H 20 H Respiratory Effort Blood Pressure 96/59 L 96/59 L 99/57 L Blood Pressure Mean 71 71 69 Pulse Ox 100 99 Oxygen Delivery Method 10/14/23 21:30 10/14/23 21:31 10/14/23 21:45 Temperature Temperature Source Pulse Rate 121 H 129 H 123 H Respiratory Rate 23 H 18 22 H Respiratory Effort Blood Pressure 102/62 96/53 L Blood Pressure Mean 75 67 Pulse Ox 99 98 98 Oxygen Delivery Method 10/14/23 22:00 10/14/23 22:15 Temperature Temperature Source Pulse Rate 127 H 140 H Respiratory Rate 26 H 20 H Respiratory Effort Blood Pressure 93/56 L 113/56 L Blood Pressure Mean 64 74 Pulse Ox 99 98 Oxygen Delivery Method <Dr. Kelechi Miles, DO - Last Filed: 10/14/23 22:49> Physical Exam Const Vital Signs: 10/14/23 16:39 10/14/23 16:57 10/14/23 17:50 Temperature 98.6 F Temperature Source Oral Pulse Rate 150 H 123 H Respiratory Rate 22 H 16 Respiratory Effort Normal Blood Pressure 93/71 80/48 L Blood Pressure Mean 78 58 Pulse Ox 100 95 Oxygen Delivery Method Room Air Room Air 10/14/23 18:00 10/14/23 17:08 10/14/23 17:10 Temperature Temperature Source Pulse Rate 128 H 141 H 128 H Respiratory Rate 16 21 H 21 H Respiratory Effort Blood Pressure 103/73 Blood Pressure Mean 83 Pulse Ox 94 99 100 Oxygen Delivery Method Room Air 10/14/23 17:15 10/14/23 17:20 10/14/23 17:30 Temperature Temperature Source Pulse Rate 130 H 139 H 121 H Respiratory Rate 20 H 20 H 18 Respiratory Effort Blood Pressure 84/54 L 91/53 L Blood Pressure Mean 61 64 Pulse Ox 100 99 98 Oxygen Delivery Method 10/14/23 17:40 10/14/23 17:45 10/14/23 17:49 Temperature Temperature Source Pulse Rate 123 H Respiratory Rate 20 H Respiratory Effort Blood Pressure 80/59 L 80/42 L Blood Pressure Mean 68 56 Pulse Ox 99 Oxygen Delivery Method 10/14/23 17:50 10/14/23 18:00 10/14/23 18:10 Temperature Temperature Source Pulse Rate 142 H 120 H Respiratory Rate 24 H 16 Respiratory Effort Blood Pressure 103/73 Blood Pressure Mean 82 Pulse Ox 100 Oxygen Delivery Method 10/14/23 18:15 10/14/23 18:20 10/14/23 18:28 Temperature Temperature Source Pulse Rate 127 H 135 H 129 H Respiratory Rate 20 H 16 24 H Respiratory Effort Blood Pressure 76/59 L 102/63 Blood Pressure Mean 67 74 Pulse Ox 99 Oxygen Delivery Method 10/14/23 18:30 10/14/23 18:40 10/14/23 18:45 Temperature Temperature Source Pulse Rate 123 H 122 H Respiratory Rate 18 34 H Respiratory Effort Blood Pressure 104/57 L 97/70 Blood Pressure Mean 70 79 Pulse Ox Oxygen Delivery Method 10/14/23 18:50 10/14/23 19:00 10/14/23 19:10 Temperature Temperature Source Pulse Rate 130 H 123 H 132 H Respiratory Rate 17 17 16 Respiratory Effort Blood Pressure 93/68 Blood Pressure Mean 78 Pulse Ox Oxygen Delivery Method 10/14/23 19:15 10/14/23 19:20 10/14/23 19:30 Temperature Temperature Source Pulse Rate 128 H 124 H 141 H Respiratory Rate 19 H 18 22 H Respiratory Effort Blood Pressure 92/59 L 99/67 Blood Pressure Mean 70 78 Pulse Ox Oxygen Delivery Method 10/14/23 19:40 10/14/23 19:45 10/14/23 19:50 Temperature Temperature Source Pulse Rate 132 H 128 H 128 H Respiratory Rate 21 H 25 H 19 H Respiratory Effort Blood Pressure 93/67 Blood Pressure Mean 76 Pulse Ox Oxygen Delivery Method 10/14/23 20:00 10/14/23 20:10 10/14/23 20:15 Temperature Temperature Source Pulse Rate 131 H 128 H Respiratory Rate 21 H 24 H Respiratory Effort Blood Pressure 92/59 L 92/56 L Blood Pressure Mean 70 68 Pulse Ox Oxygen Delivery Method 10/14/23 20:27 10/14/23 20:30 10/14/23 20:45 Temperature Temperature Source Pulse Rate 125 H 117 H 120 H Respiratory Rate 19 H 17 18 Respiratory Effort Blood Pressure 99/63 107/52 L 96/55 L Blood Pressure Mean 76 68 66 Pulse Ox 93 100 Oxygen Delivery Method 10/14/23 21:00 10/14/23 21:00 10/14/23 21:15 Temperature Temperature Source Pulse Rate 124 H 133 H Respiratory Rate 20 H 20 H Respiratory Effort Blood Pressure 96/59 L 96/59 L 99/57 L Blood Pressure Mean 71 71 69 Pulse Ox 100 99 Oxygen Delivery Method 10/14/23 21:30 10/14/23 21:31 10/14/23 21:45 Temperature Temperature Source Pulse Rate 121 H 129 H 123 H Respiratory Rate 23 H 18 22 H Respiratory Effort Blood Pressure 102/62 96/53 L Blood Pressure Mean 75 67 Pulse Ox 99 98 98 Oxygen Delivery Method 10/14/23 22:00 10/14/23 22:15 Temperature Temperature Source Pulse Rate 127 H 140 H Respiratory Rate 26 H 20 H Respiratory Effort Blood Pressure 93/56 L 113/56 L Blood Pressure Mean 64 74 Pulse Ox 99 98 Oxygen Delivery Method [facility] <TONI Calles - Last Filed: 10/14/23 20:56> [facility] Narrative Medical decision making narrative: History gathered from: Patient and son Differential: A-fib RVR, medication noncompliance, CHF Consults: Outside facility cardiology and hospitalist Patient is a poor historian. He felt lightheaded and fell twice today. No syncope or chest pain. He reports some shortness of breath. He is in A-fib RVRat 120, BP 90s/70s, otherwise stable vital signs. Records show patient has a history of HTN, HLD, COPD, CHF with EF of 15 to 20%, A-fib RVR. [facility] onset A-fib RVR. He is on metoprolol succinate, Eliquis, digoxin, Bumex, Aldactone and amiodarone. He supposed to wear LifeVest. He is not sure what medications he took this morning. Due to patient's CHF with reduced EF I ordered a 500 cc bolus. He is still in A- fib RVR around 115 but blood pressure is now 107/52. Other than A-fib his exam is benign. He appears euvolemic. Labs show white count of 14.6, hemoglobin 12.8, electrolytes are unremarkable, creatinine 1.34. Troponin is normal at 11. BNP 459. Digoxin level is low at 0.60. He states he is taking his medications but his brother was administering them and he does not know whathe took this morning. The most recent records I could find were from [facility] and after speaking with the transfer line they state he was most recently admitted at [facility] in [place] for cardiology issues. I spoke with [facility] stranding machine operator, Dr. Nath, who advised giving IV digoxin 250 mcgand agreed with transferring the patient. Case was discussed with the hospitalist there, Dr. Goyo Duff, who accepted the patient. He is awaiting a bed. 35 minutes of critical care time was consumed by evaluation patient, treatment and planning, discussions with consultants and reassessments. Lab Data Attestation: I reviewed the patient's lab results. Labs: Laboratory Results - last 24 hr 10/14/23 10/14/23 10/14/23 16:54 17:30 18:45 WBC 14.6 H RBC 4.51 L Hgb 12.8 L Hct 39.9 L MCV 88.5 MCH 28.4 MCHC 32.1 RDW Std Deviation 57.0 H RDW Coeff of Jesus 17.6 H Plt Count 248 MPV 11.1 Immature Gran % (Auto) 0.500 Neut % (Auto) 84.0 H Lymph % (Auto) 6.2 L Norman % (Auto) 9.1 Eos % (Auto) 0.0 Baso % (Auto) 0.2 Absolute Neuts (auto) 12.2 H Absolute Lymphs (auto) 0.91 Nucleated RBC % 0 Sodium 134 L Potassium 4.0 Chloride 101 Carbon Dioxide 25.0 Anion Gap 8 BUN 22 H Creatinine 1.34 H Estim Creat Clear Calc 55.23 Est GFR (MDRD) Af Amer 68 Est GFR (MDRD) Non-Af 56 L BUN/Creatinine Ratio 16.4 Glucose 95 Calcium 9.5 Troponin I High Sens 11 B-Natriuretic Peptide 459.7 H Urine Color Yellow Urine Clarity Clear Urine pH 6.5 Ur Specific [place] 1.010 Urine Protein 30 H Urine Glucose (UA) 1000 H Urine Ketones 15 H Urine Occult Blood 10 H Urine Nitrite Positive H Urine Bilirubin 3 H Urine Urobilinogen 1 H Ur Leukocyte Esterase 25 H Urine RBC 0 SEEN Urine WBC 0-5 SEEN Ur Squamous Epith Cells 0 SEEN Urine Bacteria 1+ Hyaline Casts 0-5 SEEN Urine Mucus 1+ Digoxin 0.60 L Ethyl Alcohol < 3.0 Radiography Diagnostic Testing: Clinical Impression(s) from Imaging Studies Chest X-Ray 10/14/23 17:54 IMPRESSION: Normal x-ray examination of the chest. Electronically Signed: Johan Humphrey MD at 18:34 EDT , ED attending interpretation of 1-view chest x-ray shows normal heart size, no acute infiltrate, edema, or effusion. EKG Initial EKG: Attestation: I personally reviewed and interpreted this EKG as follows: Comments: A-fib RVR at 135 bpm, no acute ischemic changes <Dr. Kelechi Miles, DO - Last Filed: 10/14/23 22:49> [facility] Narrative Medical decision making narrative: History gathered from: Patient and son Differential: A-fib RVR, medication noncompliance, CHF Consults: Outside facility cardiology and hospitalist Patient is a poor historian. He felt lightheaded and fell twice today. No syncope or chest pain. He reports some shortness of breath. He is in A-fib RVRat 120, BP 90s/70s, otherwise stable vital signs. Records show patient has a history of HTN, HLD, COPD, CHF with EF of 15 to 20%, A-fib RVR. [facility] for new onset A-fib RVR. He is on metoprolol succinate, Eliquis, digoxin, Bumex, Aldactone and amiodarone. He supposed to wear LifeVest. He is not sure what medications he took this morning. Due to patient's CHF with reduced EF I ordered a 500 cc bolus. He is still in A- fib RVR around 115 but blood pressure is now 107/52. Other than A-fib his exam is benign. He appears euvolemic. Labs show white count of 14.6, hemoglobin 12.8, electrolytes are unremarkable, creatinine 1.34. Troponin is normal at 11. BNP 459. Digoxin level is low at 0.60. He states he is taking his medications but his brother was administering them and he does not know whathe took this morning. The most recent records I could find were from [facility] and after speaking with the transfer line they state he was most recently admitted at [facility] in [place] for cardiology issues. I spoke with [facility] stranding machine operator, Dr. Nath, who advised giving IV digoxin 250 mcgand agreed with transferring the patient. Case was discussed with the hospitalist there, Dr. Goyo Duff, who accepted the patient. He is awaiting a bed. This patient was seen with a PA/HEAD SAMPLER Individually assessed they patient including history and physical. I have reviewed everything on the chart that is availableand agree with the documentation provided by the PA/HEAD SAMPLER including discussion about the assessment, treatment plan, discussion, and return precautions. Patient presenting with lightheadedness and fell twice today. Patient is supposed to be wearing a LifeVest but is not. He has multiple comorbidities andrecently treated for Wernicke syndrome, A-fib, CHF at [facility]. Patient with an EF of 15% or so. Patient's blood work today was fairly stable however the patient's heart rate remained in the 120s and his blood pressure wassoft in the 90s to 100 range. He was given a 500 cc bolus but given his EF we did not want to give him a lot of fluids. Did level was checked and is 0.6. [facility] because the patient said hehad his care there however after speaking with the transfer line they state thathe was at [facility] in [place] and then we were able to speak with them. Cardiology at that point recommended that we give to 50 mcg of digoxin and then will accept the patient in transfer. Patient is now stable and heart rate is stabilized. 35 minutes of critical care time was consumed by evaluation patient, treatment and planning, discussions with consultants and reassessments. Lab Data Labs: Laboratory Results - last 24 hr 10/14/23 10/14/23 10/14/23 16:54 17:30 18:45 WBC 14.6 H RBC 4.51 L Hgb 12.8 L Hct 39.9 L MCV 88.5 MCH 28.4 MCHC 32.1 RDW Std Deviation 57.0 H RDW Coeff of Jesus 17.6 H Plt Count 248 MPV 11.1 Immature Gran % (Auto) 0.500 Neut % (Auto) 84.0 H Lymph % (Auto) 6.2 L Norman % (Auto) 9.1 Eos % (Auto) 0.0 Baso % (Auto) 0.2 Absolute Neuts (auto) 12.2 H Absolute Lymphs (auto) 0.91 Nucleated RBC % 0 Sodium 134 L Potassium 4.0 Chloride 101 Carbon Dioxide 25.0 Anion Gap 8 BUN 22 H Creatinine 1.34 H Estim Creat Clear Calc 55.23 Est GFR (MDRD) Af Amer 68 Est GFR (MDRD) Non-Af 56 L BUN/Creatinine Ratio 16.4 Glucose 95 Calcium 9.5 Troponin I High Sens 11 B-Natriuretic Peptide 459.7 H Urine Color Yellow Urine Clarity Clear Urine pH 6.5 Ur Specific [place] 1.010 Urine Protein 30 H Urine Glucose (UA) 1000 H Urine Ketones 15 H Urine Occult Blood 10 H Urine Nitrite Positive H Urine Bilirubin 3 H Urine Urobilinogen 1 H Ur Leukocyte Esterase 25 H Urine RBC 0 SEEN Urine WBC 0-5 SEEN Ur Squamous Epith Cells 0 SEEN Urine Bacteria 1+ Hyaline Casts 0-5 SEEN Urine Mucus 1+ Digoxin 0.60 L Ethyl Alcohol < 3.0 Radiography Diagnostic Testing: Clinical Impression(s) from Imaging Studies Chest X-Ray 10/14/23 17:54 IMPRESSION: Normal x-ray examination of the chest. Electronically Signed: Johan Humphrey MD at 18:34 EDT , Discharge Plan Triage Chief Complaint: Palpitations ED Midlevel Provider: Frank Kennedy ED Provider: Kelechi Miles Dx/Rx/DC Orders Clinical Impression: Acute hypotension, Pre-syncope, Falls, Atrial fibrillation with RVR Prescriptions: No Action melatonin 5 mg tablet 10 mg PO QHS thiamine HCl (vitamin B1) [Vitamin B-1] 100 mg Tablet 100 mg PO DAILYCM Qty: 30 2RF nicotine 21 mg/24 hr Patch 24 Hour 21 mg transdermal DAILY Qty: 21 0RF folic acid 1 mg Tablet 1 mg PO DAILY@0800 Qty: 30 3RF Ibuprofen PM 200-38 mg tablet 2 cap PO QHS PRN (Reason: PAIN) 3 Days Qty: 0 0RF losartan 50 mg tablet 50 mg PO DAILY bumetanide 1 mg tablet 1 mg PO BID amiodarone 100 mg tablet 200 mg PO DAILY Eliquis 5 mg tablet 5 mg PO BID Jardiance 10 mg tablet 10 mg PO DAILY Entresto 24-26 mg tablet 1 tab PO BID pyridoxine (vitamin B6) [Vitamin B-6] 25 mg tablet 25 mg PO DAILY cyanocobalamin (vitamin B-12) 1,000 mcg tablet 500 mcg PO DAILY spironolactone 25 mg tablet 25 mg PO DAILY digoxin 125 mcg (0.125 mg) tablet 62.5 mcg PO DAILY fluticasone propion-salmeterol 100-50 mcg/dose blister with device 1 ea inhalation DAILY albuterol sulfate 90 mcg/actuation HFA aerosol inhaler 1 puff inhalation Q4H PRN PRN (Reason: dyspnea) mirtazapine 7.5 mg tablet 7.5 mg PO QHS cholecalciferol (vitamin D3) 25 mcg (1,000 unit) tablet 25 mcg PO DAILY Antacid Calcium 215 mg calcium (500 mg) tablet,chewable 537.5 mg PO DAILY Primary Care Provider: John Springer Referrals: John Springer MD [Primary Care Provider] - What to do if you have Problems For any increased pain, shortness of breath, bleeding, nausea or vomiting, chestpain, or any unexpected problems, contact your Primary Care Provider. Call [facility] ([phone]) or report to the closest Emergency Room. Call 911 if necessary. 10/14/232055 <Electronically signed by Frank MUÑOZ> Cosigner Signature (if applicable): 10/14/232248 <Electronically signed by Kelechi Miles DO> CC: Dr. John Springer MD ~ Signed [facility] Work Phone: [phone] Discharge summary Author Daniel Inman [facility] October 15, 2023 7:13am Note Date/Time October 14, 2023 5:2 5pm [facility] Medical Records Department [address] [place] [address] Emergency Department Summary 10/14/23 MR#: [id number] Acct: [id number] Name: MESSI WALDROP Rep #:[id number] : [id number] 68 From: Frank MUÑOZ PCP: Dr. John Springer MD Status:RE G ER Location: ED ADDENDUM by Dr. Daniel Inman MD on 10/15/23 at 0713 At the time of checkout patient was excepted at [place]. Initially awaiting for a ride. We were then informed by outside facility that they presently do not have beds to accept him. They stated at 7 AM they would know if a bed will be available for him in the morning. If a bed is not available for him in the morning he will need to be admitted to [facility] until a bed becomes available at [facility] in [place]. 10/15/23712<Electronically signed by Daniel Inman MD> Cosigner Signature (if applicable): 10/14/232248 <Electronically signed by Kelechi Miles DO> cc: Dr. John Springer MD ~* Signed HPI <TONI Calles - Last Filed: 10/14/23 20:56> History of Present Illness Chief Complaint: Palpitations Narrative Narrative: 68-year-old male with PMH of A-fib presents after falling twice today. He states this morning he had to urinate about [address] back to his room he fell twice. He states maybe he felt lightheaded but is not really sure. He did not hit his head or lose consciousness. He has a minor bump on his right arm. He was brought in by his son for evaluation. He recently had a 6-week inpatient stay for alcohol detox and just went home about 3 days ago. He has had 1 beer since discharge. During the last few months he was also newly diagnosed with A-fib and given an external defibrillator vest but he states he does not wear it. He is taking his multiple cardiac medications as prescribed. He supposed to check his blood pressure and only take some of them if it is high; however, today his brother gave his meds even though his pressure was normal so his son thinks this may have caused him to fall. Patient denies chestpain. He states he feels mildly short of breath. No palpitations or syncope. [facility] <TONI Calles - Last Filed: 10/14/23 20:56> [facility] Medical History Acute blood loss anemia Alcohol withdrawal Anxiety Anxiety and depression At high risk for malnutrition Behavior concern in adult Chewing tobacco use COPD (chronic obstructive pulmonary disease) Depression ETOH abuse GI bleed History of cancer tonsil Hypertension Hyponatremia Irregular heart beat Smoker Substance abuse Home Medications melatonin 5 mg tablet 10 mg PO QHS 05/16/23 [History Last Taken 05/15/23] folic acid 1 mg tablet 1 mg PO DAILY@0800 #30 tabs 05/30/23 [Rx Last Taken Unknown] ibuprofen-diphenhydramine citrate 200 mg-38 mg tablet (Ibuprofen PM) 2 cap PO QHS PRN PAIN 3 days #0 tabs 05/30/23 [Rx Last Taken 05/15/23] nicotine 21 mg/24 hr daily transdermal patch 21 mg transdermal DAILY #21 ea 05/30/23 [Rx Last Taken Unknown] thiamine HCl (vitamin B1) 100 mg tablet (Vitamin B-1) 100 mg PO DAILYCM #30 tabs107/30/22 [Rx Last Taken Unknown] albuterol sulfate 90 mcg/actuation aerosol inhaler 1 puff inhalation Q4H PRN PRNdyspnea 10/14/23 [History Last Taken Unknown] amiodarone 100 mg tablet 200 mg PO DAILY 10/14/23 [History Last Taken Unknown] apixaban 5 mg tablet (Eliquis) 5 mg PO BID 10/14/23 [History Last Taken Unknown] bumetanide 1 mg tablet 1 mg PO BID 10/14/23 [History Last Taken Unknown] calcium carbonate 215 mg calcium (500 mg) chewable tablet (Antacid Calcium) 537.5 mg PO DAILY 10/14/23 [History Last Taken Unknown] cholecalciferol (vitamin D3) 25 mcg (1,000 unit) tablet 25 mcg PO DAILY 10/14/23[History Last Taken Unknown] cyanocobalamin (vitamin B-12) 1,000 mcg tablet 500 mcg PO DAILY 10/14/23 [History Last Taken Unknown] digoxin 125 mcg (0.125 mg) tablet 62.5 mcg PO DAILY 10/14/23 [History Last Taken Unknown] empagliflozin 10 mg tablet (Jardiance) 10 mg PO DAILY diabetes mellitus 10/14/23[History Last Taken Unknown] fluticasone 100 mcg-salmeterol 50 mcg/dose blistr powdr for inhalation 1 ea inhalation DAILY 10/14/23 [History Last Taken Unknown] losartan 50 mg tablet 50 mg PO DAILY blood pressure 10/14/23 [History Last Taken Unknown] mirtazapine 7.5 mg tablet 7.5 mg PO QHS depressive disorder 10/14/23 [History Last Taken Unknown] pyridoxine (vitamin B6) 25 mg tablet (Vitamin B-6) 25 mg PO DAILY anemia 10/14/23 [History Last Taken Unknown] sacubitril 24 mg-valsartan 26 mg tablet (Entresto) 1 tab PO BID 10/14/23 [History Last Taken Unknown] spironolactone 25 mg tablet 25 mg PO DAILY blood pressure 10/14/23 [History Last Taken Unknown] Allergy/AdvReac Type Severity Reaction Status Date / Time poison rich extract Allergy Mild RASH Verified 10/14/23 16:46 Family History Mother Diabetes Father Diabetes Brother Colon cancer Surgical History History of tonsillectomy and adenoidectomy Social History household members: other details: Lives with his son. Smoking Status: Former smoker Smokeless tobacco user: chewing tobacco and other alcohol intake: current alcohol intake frequency: 3 or more drinks per day details: 8-10 beers daily coupled with hard liquor. substance use type: does not use ROS <TONI Calles - Last Filed: 10/14/23 20:56> ROS ED ROS Narrative Constitutional: Negative for fever, chills, malaise. CVS: Negative for palpitations, chest pain. Respiratory: Negative for cough, orthopnea. GI: Negative for abdominal pain, nausea, vomiting, melena, hematochezia. EXAM <TONI Calles - Last Filed: 10/14/23 20:56> Physical Exam Narrative Exam Narrative: CONST: Patient sitting in no acute distress. EYES: Normal inspection. NECK: Normal inspection. RESP: No respiratory distress, CTAB. CVS: Tachycardic irregularly irregular rhythm, no murmur, no gallop. ABD: Soft and nontender, no guarding or rebound, nondistended. SKIN: Color normal, no rash, warm, dry, intact. EXTREMITIES: Normal appearance, no pedal edema. NEURO: Oriented x4. PSYCH: Normal affect. Const Vital Signs: 10/14/23 16:39 10/14/23 16:57 10/14/23 17:50 Temperature 98.6 F Temperature Source Oral Pulse Rate 150 H 123 H Respiratory Rate 22 H 16 Respiratory Effort Normal Blood Pressure 93/71 80/48 L Blood Pressure Mean 78 58 Pulse Ox 100 95 Oxygen Delivery Method Room Air Room Air 10/14/23 18:00 10/14/23 17:08 10/14/23 17:10 Temperature Temperature Source Pulse Rate 128 H 141 H 128 H Respiratory Rate 16 21 H 21 H Respiratory Effort Blood Pressure 103/73 Blood Pressure Mean 83 Pulse Ox 94 99 100 Oxygen Delivery Method Room Air 10/14/23 17:15 10/14/23 17:20 10/14/23 17:30 Temperature Temperature Source Pulse Rate 130 H 139 H 121 H Respiratory Rate 20 H 20 H 18 Respiratory Effort Blood Pressure 84/54 L 91/53 L Blood Pressure Mean 61 64 Pulse Ox 100 99 98 Oxygen Delivery Method 10/14/23 17:40 10/14/23 17:45 10/14/23 17:49 Temperature Temperature Source Pulse Rate 123 H Respiratory Rate 20 H Respiratory Effort Blood Pressure 80/59 L 80/42 L Blood Pressure Mean 68 56 Pulse Ox 99 Oxygen Delivery Method 10/14/23 17:50 10/14/23 18:00 10/14/23 18:10 Temperature Temperature Source Pulse Rate 142 H 120 H Respiratory Rate 24 H 16 Respiratory Effort Blood Pressure 103/73 Blood Pressure Mean 82 Pulse Ox 100 Oxygen Delivery Method 10/14/23 18:15 10/14/23 18:20 10/14/23 18:28 Temperature Temperature Source Pulse Rate 127 H 135 H 129 H Respiratory Rate 20 H 16 24 H Respiratory Effort Blood Pressure 76/59 L 102/63 Blood Pressure Mean 67 74 Pulse Ox 99 Oxygen Delivery Method 10/14/23 18:30 10/14/23 18:40 10/14/23 18:45 Temperature Temperature Source Pulse Rate 123 H 122 H Respiratory Rate 18 34 H Respiratory Effort Blood Pressure 104/57 L 97/70 Blood Pressure Mean 70 79 Pulse Ox Oxygen Delivery Method 10/14/23 18:50 10/14/23 19:00 10/14/23 19:10 Temperature Temperature Source Pulse Rate 130 H 123 H 132 H Respiratory Rate 17 17 16 Respiratory Effort Blood Pressure 93/68 Blood Pressure Mean 78 Pulse Ox Oxygen Delivery Method 10/14/23 19:15 10/14/23 19:20 10/14/23 19:30 Temperature Temperature Source Pulse Rate 128 H 124 H 141 H Respiratory Rate 19 H 18 22 H Respiratory Effort Blood Pressure 92/59 L 99/67 Blood Pressure Mean 70 78 Pulse Ox Oxygen Delivery Method 10/14/23 19:40 10/14/23 19:45 10/14/23 19:50 Temperature Temperature Source Pulse Rate 132 H 128 H 128 H Respiratory Rate 21 H 25 H 19 H Respiratory Effort Blood Pressure 93/67 Blood Pressure Mean 76 Pulse Ox Oxygen Delivery Method 10/14/23 20:00 10/14/23 20:10 10/14/23 20:15 Temperature Temperature Source Pulse Rate 131 H 128 H Respiratory Rate 21 H 24 H Respiratory Effort Blood Pressure 92/59 L 92/56 L Blood Pressure Mean 70 68 Pulse Ox Oxygen Delivery Method 10/14/23 20:27 10/14/23 20:30 10/14/23 20:45 Temperature Temperature Source Pulse Rate 125 H 117 H 120 H Respiratory Rate 19 H 17 18 Respiratory Effort Blood Pressure 99/63 107/52 L 96/55 L Blood Pressure Mean 76 68 66 Pulse Ox 93 100 Oxygen Delivery Method 10/14/23 21:00 10/14/23 21:00 10/14/23 21:15 Temperature Temperature Source Pulse Rate 124 H 133 H Respiratory Rate 20 H 20 H Respiratory Effort Blood Pressure 96/59 L 96/59 L 99/57 L Blood Pressure Mean 71 71 69 Pulse Ox 100 99 Oxygen Delivery Method 10/14/23 21:30 10/14/23 21:31 10/14/23 21:45 Temperature Temperature Source Pulse Rate 121 H 129 H 123 H Respiratory Rate 23 H 18 22 H Respiratory Effort Blood Pressure 102/62 96/53 L Blood Pressure Mean 75 67 Pulse Ox 99 98 98 Oxygen Delivery Method 10/14/23 22:00 10/14/23 22:15 Temperature Temperature Source Pulse Rate 127 H 140 H Respiratory Rate 26 H 20 H Respiratory Effort Blood Pressure 93/56 L 113/56 L Blood Pressure Mean 64 74 Pulse Ox 99 98 Oxygen Delivery Method <Dr. Kelechi Miles, DO - Last Filed: 10/14/23 22:49> Physical Exam Const Vital Signs: 10/14/23 16:39 10/14/23 16:57 10/14/23 17:50 Temperature 98.6 F Temperature Source Oral Pulse Rate 150 H 123 H Respiratory Rate 22 H 16 Respiratory Effort Normal Blood Pressure 93/71 80/48 L Blood Pressure Mean 78 58 Pulse Ox 100 95 Oxygen Delivery Method Room Air Room Air 10/14/23 18:00 10/14/23 17:08 10/14/23 17:10 Temperature Temperature Source Pulse Rate 128 H 141 H 128 H Respiratory Rate 16 21 H 21 H Respiratory Effort Blood Pressure 103/73 Blood Pressure Mean 83 Pulse Ox 94 99 100 Oxygen Delivery Method Room Air 10/14/23 17:15 10/14/23 17:20 10/14/23 17:30 Temperature Temperature Source Pulse Rate 130 H 139 H 121 H Respiratory Rate 20 H 20 H 18 Respiratory Effort Blood Pressure 84/54 L 91/53 L Blood Pressure Mean 61 64 Pulse Ox 100 99 98 Oxygen Delivery Method 10/14/23 17:40 10/14/23 17:45 10/14/23 17:49 Temperature Temperature Source Pulse Rate 123 H Respiratory Rate 20 H Respiratory Effort Blood Pressure 80/59 L 80/42 L Blood Pressure Mean 68 56 Pulse Ox 99 Oxygen Delivery Method 10/14/23 17:50 10/14/23 18:00 10/14/23 18:10 Temperature Temperature Source Pulse Rate 142 H 120 H Respiratory Rate 24 H 16 Respiratory Effort Blood Pressure 103/73 Blood Pressure Mean 82 Pulse Ox 100 Oxygen Delivery Method 10/14/23 18:15 10/14/23 18:20 10/14/23 18:28 Temperature Temperature Source Pulse Rate 127 H 135 H 129 H Respiratory Rate 20 H 16 24 H Respiratory Effort Blood Pressure 76/59 L 102/63 Blood Pressure Mean 67 74 Pulse Ox 99 Oxygen Delivery Method 10/14/23 18:30 10/14/23 18:40 10/14/23 18:45 Temperature Temperature Source Pulse Rate 123 H 122 H Respiratory Rate 18 34 H Respiratory Effort Blood Pressure 104/57 L 97/70 Blood Pressure Mean 70 79 Pulse Ox Oxygen Delivery Method 10/14/23 18:50 10/14/23 19:00 10/14/23 19:10 Temperature Temperature Source Pulse Rate 130 H 123 H 132 H Respiratory Rate 17 17 16 Respiratory Effort Blood Pressure 93/68 Blood Pressure Mean 78 Pulse Ox Oxygen Delivery Method 10/14/23 19:15 10/14/23 19:20 10/14/23 19:30 Temperature Temperature Source Pulse Rate 128 H 124 H 141 H Respiratory Rate 19 H 18 22 H Respiratory Effort Blood Pressure 92/59 L 99/67 Blood Pressure Mean 70 78 Pulse Ox Oxygen Delivery Method 10/14/23 19:40 10/14/23 19:45 10/14/23 19:50 Temperature Temperature Source Pulse Rate 132 H 128 H 128 H Respiratory Rate 21 H 25 H 19 H Respiratory Effort Blood Pressure 93/67 Blood Pressure Mean 76 Pulse Ox Oxygen Delivery Method 10/14/23 20:00 10/14/23 20:10 10/14/23 20:15 Temperature Temperature Source Pulse Rate 131 H 128 H Respiratory Rate 21 H 24 H Respiratory Effort Blood Pressure 92/59 L 92/56 L Blood Pressure Mean 70 68 Pulse Ox Oxygen Delivery Method 10/14/23 20:27 10/14/23 20:30 10/14/23 20:45 Temperature Temperature Source Pulse Rate 125 H 117 H 120 H Respiratory Rate 19 H 17 18 Respiratory Effort Blood Pressure 99/63 107/52 L 96/55 L Blood Pressure Mean 76 68 66 Pulse Ox 93 100 Oxygen Delivery Method 10/14/23 21:00 10/14/23 21:00 10/14/23 21:15 Temperature Temperature Source Pulse Rate 124 H 133 H Respiratory Rate 20 H 20 H Respiratory Effort Blood Pressure 96/59 L 96/59 L 99/57 L Blood Pressure Mean 71 71 69 Pulse Ox 100 99 Oxygen Delivery Method 10/14/23 21:30 10/14/23 21:31 10/14/23 21:45 Temperature Temperature Source Pulse Rate 121 H 129 H 123 H Respiratory Rate 23 H 18 22 H Respiratory Effort Blood Pressure 102/62 96/53 L Blood Pressure Mean 75 67 Pulse Ox 99 98 98 Oxygen Delivery Method 10/14/23 22:00 10/14/23 22:15 Temperature Temperature Source Pulse Rate 127 H 140 H Respiratory Rate 26 H 20 H Respiratory Effort Blood Pressure 93/56 L 113/56 L Blood Pressure Mean 64 74 Pulse Ox 99 98 Oxygen Delivery Method [facility] <TONI Calles - Last Filed: 10/14/23 20:56> [facility] Narrative Medical decision making narrative: History gathered from: Patient and son Differential: A-fib RVR, medication noncompliance, CHF Consults: Outside facility cardiology and hospitalist Patient is a poor historian. He felt lightheaded and fell twice today. No syncope or chest pain. He reports some shortness of breath. He is in A-fib RVRat 120, BP 90s/70s, otherwise stable vital signs. Records show patient has a history of HTN, HLD, COPD, CHF with EF of 15 to 20%, A-fib RVR. [facility] onset A-fib RVR. He is on metoprolol succinate, Eliquis, digoxin, Bumex, Aldactone and amiodarone. He supposed to wear LifeVest. He is not sure what medications he took this morning. Due to patient's CHF with reduced EF I ordered a 500 cc bolus. He is still in A- fib RVR around 115 but blood pressure is now 107/52. Other than A-fib his exam is benign. He appears euvolemic. Labs show white count of 14.6, hemoglobin 12.8, electrolytes are unremarkable, creatinine 1.34. Troponin is normal at 11. BNP 459. Digoxin level is low at 0.60. He states he is taking his medications but his brother was administering them and he does not know whathe took this morning. The most recent records I could find were from [facility] and after speaking with the transfer line they state he was most recently admitted at [facility] in [place] for cardiology issues. I spoke with [facility] stranding machine operator, Dr. Nath, who advised giving IV digoxin 250 mcgand agreed with transferring the patient. Case was discussed with the hospitalist there, Dr. Goyo Duff, who accepted the patient. He is awaiting a bed. 35 minutes of critical care time was consumed by evaluation patient, treatment and planning, discussions with consultants and reassessments. Lab Data Attestation: I reviewed the patient's lab results. Labs: Laboratory Results - last 24 hr 10/14/23 10/14/23 10/14/23 16:54 17:30 18:45 WBC 14.6 H RBC 4.51 L Hgb 12.8 L Hct 39.9 L MCV 88.5 MCH 28.4 MCHC 32.1 RDW Std Deviation 57.0 H RDW Coeff of Jesus 17.6 H Plt Count 248 MPV 11.1 Immature Gran % (Auto) 0.500 Neut % (Auto) 84.0 H Lymph % (Auto) 6.2 L Norman % (Auto) 9.1 Eos % (Auto) 0.0 Baso % (Auto) 0.2 Absolute Neuts (auto) 12.2 H Absolute Lymphs (auto) 0.91 Nucleated RBC % 0 Sodium 134 L Potassium 4.0 Chloride 101 Carbon Dioxide 25.0 Anion Gap 8 BUN 22 H Creatinine 1.34 H Estim Creat Clear Calc 55.23 Est GFR (MDRD) Af Amer 68 Est GFR (MDRD) Non-Af 56 L BUN/Creatinine Ratio 16.4 Glucose 95 Calcium 9.5 Troponin I High Sens 11 B-Natriuretic Peptide 459.7 H Urine Color Yellow Urine Clarity Clear Urine pH 6.5 Ur Specific [place] 1.010 Urine Protein 30 H Urine Glucose (UA) 1000 H Urine Ketones 15 H Urine Occult Blood 10 H Urine Nitrite Positive H Urine Bilirubin 3 H Urine Urobilinogen 1 H Ur Leukocyte Esterase 25 H Urine RBC 0 SEEN Urine WBC 0-5 SEEN Ur Squamous Epith Cells 0 SEEN Urine Bacteria 1+ Hyaline Casts 0-5 SEEN Urine Mucus 1+ Digoxin 0.60 L Ethyl Alcohol < 3.0 Radiography Diagnostic Testing: Clinical Impression(s) from Imaging Studies Chest X-Ray 10/14/23 17:54 IMPRESSION: Normal x-ray examination of the chest. Electronically Signed: Johan Humphrey MD at 18:34 EDT , ED attending interpretation of 1-view chest x-ray shows normal heart size, no acute infiltrate, edema, or effusion. EKG Initial EKG: Attestation: I personally reviewed and interpreted this EKG as follows: Comments: A-fib RVR at 135 bpm, no acute ischemic changes <Dr. Kelechi Miles, DO - Last Filed: 10/14/23 22:49> [facility] Narrative Medical decision making narrative: History gathered from: Patient and son Differential: A-fib RVR, medication noncompliance, CHF Consults: Outside facility cardiology and hospitalist Patient is a poor historian. He felt lightheaded and fell twice today. No syncope or chest pain. He reports some shortness of breath. He is in A-fib RVRat 120, BP 90s/70s, otherwise stable vital signs. Records show patient has a history of HTN, HLD, COPD, CHF with EF of 15 to 20%, A-fib RVR. [facility] for new onset A-fib RVR. He is on metoprolol succinate, Eliquis, digoxin, Bumex, Aldactone and amiodarone. He supposed to wear LifeVest. He is not sure what medications he took this morning. Due to patient's CHF with reduced EF I ordered a 500 cc bolus. He is still in A- fib RVR around 115 but blood pressure is now 107/52. Other than A-fib his exam is benign. He appears euvolemic. Labs show white count of 14.6, hemoglobin 12.8, electrolytes are unremarkable, creatinine 1.34. Troponin is normal at 11. BNP 459. Digoxin level is low at 0.60. He states he is taking his medications but his brother was administering them and he does not know whathe took this morning. The most recent records I [facility] find [facility] and after speaking with the transfer line they state he was most recently admitted at [facility] in [place] for cardiology issues. I spoke with [facility] stranding machine operator, Dr. Nath, who advised giving IV digoxin 250 mcgand agreed with transferring the patient. Case was discussed with the hospitalist there, Dr. Goyo Duff, who accepted the patient. He is awaiting a bed. This patient was seen with a PA/HEAD SAMPLER Individually assessed they patient including history and physical. I have reviewed everything on the chart that is availableand agree with the documentation provided by the PA/HEAD SAMPLER including discussion about the assessment, treatment plan, discussion, and return precautions. Patient presenting with lightheadedness and fell twice today. Patient is supposed to be wearing a LifeVest but is not. He has multiple comorbidities andrecently treated for Wernicke syndrome, A-fib, CHF at [facility]. Patient with an EF of 15% or so. Patient's blood work today was fairly stable however the patient's heart rate remained in the 120s and his blood pressure wassoft in the 90s to 100 range. He was given a 500 cc bolus but given his EF we did not want to give him a lot of fluids. Did level was checked and is 0.6. [facility] because the patient said hehad his care there however after speaking with the transfer line they state thathe was at [facility] in [place] and then we were able to speak with them. Cardiology at that point recommended that we give to 50 mcg of digoxin and then will accept the patient in transfer. Patient is now stable and heart rate is stabilized. 35 minutes of critical care time was consumed by evaluation patient, treatment and planning, discussions with consultants and reassessments. Lab Data Labs: Laboratory Results - last 24 hr 10/14/23 10/14/23 10/14/23 16:54 17:30 18:45 WBC 14.6 H RBC 4.51 L Hgb 12.8 L Hct 39.9 L MCV 88.5 MCH 28.4 MCHC 32.1 RDW Std Deviation 57.0 H RDW Coeff of Jesus 17.6 H Plt Count 248 MPV 11.1 Immature Gran % (Auto) 0.500 Neut % (Auto) 84.0 H Lymph % (Auto) 6.2 L Norman % (Auto) 9.1 Eos % (Auto) 0.0 Baso % (Auto) 0.2 Absolute Neuts (auto) 12.2 H Absolute Lymphs (auto) 0.91 Nucleated RBC % 0 Sodium 134 L Potassium 4.0 Chloride 101 Carbon Dioxide 25.0 Anion Gap 8 BUN 22 H Creatinine 1.34 H Estim Creat Clear Calc 55.23 Est GFR (MDRD) Af Amer 68 Est GFR (MDRD) Non-Af 56 L BUN/Creatinine Ratio 16.4 Glucose 95 Calcium 9.5 Troponin I High Sens 11 B-Natriuretic Peptide 459.7 H Urine Color Yellow Urine Clarity Clear Urine pH 6.5 Ur Specific [place] 1.010 Urine Protein 30 H Urine Glucose (UA) 1000 H Urine Ketones 15 H Urine Occult Blood 10 H Urine Nitrite Positive H Urine Bilirubin 3 H Urine Urobilinogen 1 H Ur Leukocyte Esterase 25 H Urine RBC 0 SEEN Urine WBC 0-5 SEEN Ur Squamous Epith Cells 0 SEEN Urine Bacteria 1+ Hyaline Casts 0-5 SEEN Urine Mucus 1+ Digoxin 0.60 L Ethyl Alcohol < 3.0 Radiography Diagnostic Testing: Clinical Impression(s) from Imaging Studies Chest X-Ray 10/14/23 17:54 IMPRESSION: Normal x-ray examination of the chest. Electronically Signed: Johan Humphrey MD at 18:34 EDT , Discharge Plan Triage Chief Complaint: Palpitations ED Midlevel Provider: Frank Kennedy ED Provider: Kelechi Miles Dx/Rx/DC Orders Clinical Impression: Acute hypotension, Pre-syncope, Falls, Atrial fibrillation with RVR Prescriptions: No Action melatonin 5 mg tablet 10 mg PO QHS thiamine HCl (vitamin B1) [Vitamin B-1] 100 mg Tablet 100 mg PO DAILYCM Qty: 30 2RF nicotine 21 mg/24 hr Patch 24 Hour 21 mg transdermal DAILY Qty: 21 0RF folic acid 1 mg Tablet 1 mg PO DAILY@0800 Qty: 30 3RF Ibuprofen PM 200-38 mg tablet 2 cap PO QHS PRN (Reason: PAIN) 3 Days Qty: 0 0RF losartan 50 mg tablet 50 mg PO DAILY bumetanide 1 mg tablet 1 mg PO BID amiodarone 100 mg tablet 200 mg PO DAILY Eliquis 5 mg tablet 5 mg PO BID Jardiance 10 mg tablet 10 mg PO DAILY Entresto 24-26 mg tablet 1 tab PO BID pyridoxine (vitamin B6) [Vitamin B-6] 25 mg tablet 25 mg PO DAILY cyanocobalamin (vitamin B-12) 1,000 mcg tablet 500 mcg PO DAILY spironolactone 25 mg tablet 25 mg PO DAILY digoxin 125 mcg (0.125 mg) tablet 62.5 mcg PO DAILY fluticasone propion-salmeterol 100-50 mcg/dose blister with device 1 ea inhalation DAILY albuterol sulfate 90 mcg/actuation HFA aerosol inhaler 1 puff inhalation Q4H PRN PRN (Reason: dyspnea) mirtazapine 7.5 mg tablet 7.5 mg PO QHS cholecalciferol (vitamin D3) 25 mcg (1,000 unit) tablet 25 mcg PO DAILY Antacid Calcium 215 mg calcium (500 mg) tablet,chewable 537.5 mg PO DAILY Primary Care Provider: John Springer Referrals: John Springer MD [Primary Care Provider] - What to do if you have Problems For any increased pain, shortness of breath, bleeding, nausea or vomiting, chestpain, or any unexpected problems, contact your Primary Care Provider. Call [facility] ([phone]) or report to the closest Emergency Room. Call 911 if necessary. 10/14/232055 <Electronically signed by Frank MUÑOZ> Cosigner Signature (if applicable): 10/14/232248 <Electronically signed by Kelechi Miles DO> CC: Dr. John Springer MD ~ Signed [facility] Work Phone: [phone] 589-595603-17-2024 Telephone encounter Note* Telephone Encounter - Kenton Man MD - 10/14/2023 6:51 PM EDT Received callback request from [facility] who asked if I had the contact information for the [employer]. Number provided. Kenton Man MD Fellow, Cardiovascular Disease, PGY-[address] [id number] Miscellaneous Notes* Telephone Encounter - Kenton Man MD - 10/14/2023 6:51 PM EDT Received callback request from [facility] who asked if I had the contact information for the [employer]. Number provided. Kenton Man MD Fellow, Cardiovascular Disease, PGY-4 documented in this encounterSMetroHealth [facility] Medical [id number] Miscellaneous Notes* Care Coordination - CAR Verduzco - 08/22/2023 2:20 PM EST Patient discharged to [facility] in [place] this afternoon. This worker did speak with patients son Dewayne and with patients [facility] eeo officer, Angelo Chance [phone]. Shared with Mr. Chance that patient is not physically well enough to go to [facility] alcohol treatment. Per [facility] fund development manager, patient needs to be able to manage independently on campus and he isunable at this time. Faxing medical support documentation to patients eeo officer who states he can present it to the Pilot Teacher in attempts of getting a court order for patient to remain at [facility] until well enough for either return to [facility] of to serve his pending penitentiary time. states he will continue to follow patient at [facility]. * Care Coordination - Unknown Case Management - 08/22/2023 12:01 PM EST Patient Choice Patient Name: MESSI WALDROP Date of : 1955 Share Number: [id number] Method of Sharing: electronic Date of Sharin2023-08-14 14:13:07.000 Responding Recipient: Ranked Providers Sent Referral Rank: 1 Name: [facility] Phone: [phone] Address: [address] [place] [address] Rank: 3 Name: [facility] Phone: [phone] Address: [address] [place] [address] Rank: 2 Name: [facility] [employer] Phone: [phone] Address: [address] [place] [address] All Providers Sent Referral Name: [facility] Phone: [phone] Address: [address] [place] [id number] Name: [facility] Address: [address] [place] [address] Name: [facility] Dumont [employer] Address: [address] [place] [id number] * Care Plan - Eddy Carvajal - 08/22/2023 10:53 AM EST Discharge med list transmitted to [facility] via [facility]port per [facility] request. 7000 was entered into [employer] [facility] for the SNF- Facility is aware. * Care Coordination - Savannah Wang RN - 08/22/2023 10:33 AM EST Images from the original note were not included. Care Management Progress Note Pt has discharge order. Pt to discharge to [facility] & has insurance approval. [facility] tasked to complete 7000 & send discharge paperwork. [facility] notified of discharge. RN, G[employer]INE PLANT OPERATOR notified of discharge. Discharge Milestones and Delays Expected Date/Time: 08/22/2023 Disposition: [facility] Facility Transport status: No current request Discharge Milestones Place discharge order Complete med reconciliation Case mgmt discharge readiness Clinical Stability Diagnsotic Workup Expected Discharge History Expected Date/Time Set By Reviewed At 08/22/2023 Adam Guzman MD 08/22/2023 10:27 AM Sitter, scheduled ativan. [facility] upon dc . Mandated to go there. Up with one assist. Tapering the Ativan in the next few days. . Auth started today. 08/17- Dc today 08/20- waiting on auth for snf 08/21 Neurology to see 08/22/2023 Jessica Hector RN 08/21/2023 3:15 PM 08/21/2023 RASHMI VerduzcoW 08/21/2023 9:10 AM 08/21/2023 RASHMI VerduzcoW 08/20/2023 9:15 AM Sitter, scheduled ativan. [facility] upon dc . Mandated to go there. Up with one assist. Tapering the Ativan in the next few days. . Auth started today. 08/17- Dc today 08/20- waiting on auth for snf 08/15/2023 RASHMI VerduzcoW 08/20/2023 9:14 AM 08/15/2023 CAR Verduzco 08/17/2023 9:15 AM Sitter, scheduled ativan. [facility] upon dc . Mandated to go there. Up with one assist. Tapering the Ativan in the next few days. . Auth started today. 08/17- Dc today 08/15/2023 CAR Verduzco 08/15/2023 9:33 AM Sitter, scheduled ativan. [facility] upon dc . Mandated to go there. Up with one assist. Tapering the Ativan in the next few days. . Auth started today. 08/15/2023 CAR Verduzco 08/14/2023 9:05 AM Sitter, scheduled ativan. [facility] upon dc . Mandated to go there. Up with one assist. Tapering the Ativan in the next few days. 08/14/2023 Josesito Echevarria APRN - FOUNDER PRESIDENT [employer] CEO 08/11/2023 6:39 PM 08/14/2023 Adam Guzman MD 08/11/2023 3:13 PM Length of Stay (Days): 11 GMLOS: 3.5 * Care Coordination - Jessica Hector RN - 08/21/2023 3:08 PM EST Images from the original note were not included. Care Management Progress Note Chart reviewed. Patient remains on [facility] for treatment of atrial fibrillation and ETOH. MARKOS. 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 Sent message to Dr. Pia Forte. states he is in room with patient. Dr. Guzman notified this afternoon that authorization for SNF is good through 08/24. Dr. Guzman anticipates discharge tomorrow; [facility] SW updated. DC plan: ; authorization good through 08/24. Discharge Milestones and Delays Expected Date/Time: 08/22/[address] discharge order Complete med reconciliation Case mgmt discharge readiness Clinical Stability Diagnsotic Workup Expected Discharge History Expected Date/Time Set By Reviewed At 08/22/2023 Jessica Hector RN 08/21/2023 3:15 PM Sitter, scheduled ativan. [facility] upon dc . Mandated to go there. Up with one assist. Tapering the Ativan in the next few days. . Auth started today. 08/17- Dc today 08/20- waiting on auth for snf 08/21 Neurology to see 08/21/2023 CAR Verduzco 08/21/2023 9:10 AM 08/21/2023 CAR Verduzco 08/20/2023 9:15 AM Sitter, scheduled ativan. [facility] upon dc . Mandated to go there. Up with one assist. Tapering the Ativan in the next few days. 08/15- . Auth started today. 08/17- Dc today 08/20- waiting on auth for snf 08/15/2023 CAR Verduzco 08/20/2023 9:14 AM 08/15/2023 CAR Verduzco 08/17/2023 9:15 AM Sitter, scheduled ativan. [facility] upon dc . Mandated to go there. Up with one assist. Tapering the Ativan in the next few days. 08/15- . Auth started today. 08/17- Dc today 08/15/2023 CAR Verduzco 08/15/2023 9:33 AM Sitter, scheduled ativan. [facility] upon dc . Mandated to go there. Up with one assist. Tapering the Ativan in the next few days. . Auth started today. 08/15/2023 CAR Verduzco 08/14/2023 9:05 AM Sitter, scheduled ativan. [facility] upon dc . Mandated to go there. Up with one assist. Tapering the Ativan in the next few days. 08/14/2023 Josesito Echevarria APRN - FOUNDER PRESIDENT AND CEO 08/11/2023 6:39 PM 08/14/2023 Adam Guzman MD 08/11/2023 3:13 PM Length of Stay (Days): 10 GMLOS: 3.5 * Care Plan - Merle Lomax RN - 08/21/2023 12:28 AM EST Problem: Knowledge Deficit Goal: Patient/family/caregiver demonstrates understanding of disease process, treatment plan, medications, and discharge instructions Outcome: Progressing Problem: Potential for Compromised Skin Integrity Goal: Skin Integrity is Maintained or Improved Outcome: Progressing Goal: Nutritional status is improving Outcome: Progressing Problem: Urinary Incontinence Goal: Perineal skin integrity is maintained or improved Outcome: Progressing Problem: Problem Interventions Goal: Assess Nutritional Intake Outcome: Progressing Goal: Promote nutritional intake Outcome: Progressing The patient is Moderately Stable - Low risk of patient condition declining or worsening The patient's goals for the shift include The clinical goals for the shift include Over the shift, the patient did not make progress toward the following goals. Barriers to progression include cognitive. Recommendations to address these barriers include reorient as needed. * Care Coordination - Jessica Hector RN - 08/20/2023 3:29 PM EST Received message from [employer]. Authorization has been received to admit today; auth good from 08/20 to 08/24. Dr. Stephens, 2 [facility] SW and bedside Rn informed. states Neurology has now been consulted for patient psycosis. Will follow up tomorrow. DC plan: Jose Rafael Alvarenga through 08/24/23. * Care Coordination - CAR Verduzco - 08/20/2023 2:48 PM EST Reached out to [facility] at [phone] in attempts of speaking with patients eeo officer. Per the board of education secretary, he was one the phone but she did take this workers number and will ask him to return the call. * Significant Event - Nichole Stephens MD - 08/20/2023 1:57 PM EST Consulted neurology for Wernicke's encephalopathy/Korsakoff psychosis, patient on thiamine 200 mg daily. Increased from 100 mg. * Care Coordination - Jessica Hector RN - 08/20/2023 10:01 AM EST Images from the original note were not included. Care Management Progress Note Chart reviewed. Patient remains on 2 east for treatment of atrial fib and ETOH. MARKOS. Discussed patient in rounds. RN reports patient remains sitter and restraint free. Re sent additional updates including recent therapies to [facility]. Requested department store salesperson to assist with this prolong Pr ecertification; see note. To confirm this TCC requested [facility] to start authorization last Tuesday 08/15. TCC to follow. DC plan: Colette, auth pending. Dr. Stephens updated. Discharge Milestones and Delays Expected Date/Time: 08/21/[address] discharge order Complete med reconciliation Case mgmt discharge readiness Clinical Stability Diagnsotic Workup Expected Discharge History Expected Date/Time Set By Reviewed At 08/21/2023 CAR Verduzco 08/20/2023 9:15 AM Sitter, scheduled ativan. [facility] upon dc . Mandated to go there. Up with one assist. Tapering the Ativan in the next few days. . Auth started today. 08/17- Dc today 08/20- waiting on auth for snf 08/15/2023 CAR Verduzco 08/20/2023 9:14 AM 08/15/2023 CAR Verduzco 08/17/2023 9:15 AM Sitter, scheduled ativan. [facility] upon dc . Mandated to go there. Up with one assist. Tapering the Ativan in the next few days. . Auth started today. 08/17- Dc today 08/15/2023 CAR Verduzco 08/15/2023 9:33 AM Sitter, scheduled ativan. [facility] upon dc . Mandated to go there. Up with one assist. Tapering the Ativan in the next few days. . Auth started today. 08/15/2023 CAR Verduzco 08/14/2023 9:05 AM Sitter, scheduled ativan. [facility] upon dc . Mandated to go there. Up with one assist. Tapering the Ativan in the next few days. 08/14/2023 Josesito Echevarria APRN - JESUS 08/11/2023 6:39 PM 08/14/2023 Adam Guzman MD 08/11/2023 3:13 PM Length of Stay (Days): 9 GMLOS: 3.5 * Care Coordination - Mariam Vela RN - 08/20/2023 9:45 AM EST Received call from [facility] with request to follow up with [employer] regarding the status of SNF prior auth request. Call placed to [facility] and spoke with sales representative canvas products; call reference number [id number]. Per t rep, authorization request for stay at [facility] was initiated on 08/17/23 and the case remains pending at this time. He states that there has not yet been a nurse assigned to the case and is unable to state how soon a nurse will be assigned. TCC informed of the above and instructed tocontinue to provide facility with needed updates as appropriate [facility] * Care Coordination - Eddy Carvajal - 08/20/2023 8:37 AM EST Sent updated notes to [facility] via [facility] per TCC request. Await review and response regarding ability to accept. TCC notified. * Care Coordination - Jessica Hector RN - 08/20/2023 8:24 AM EST [facility] requesting additional updates. Reports [employer] is requesting more updates before final determination is made on authorization. [facility] tasked to send all weekend updates including therapies. TCC will follow. * Care Coordination - Kuldip Diaz RN - 08/18/2023 9:10 AM EST Care Coordination Daily Note/Update Clinical Update: new onset Afib with RVR; SOB; specialties signed off - waiting for auth Discharge Plan: [facility] Discharge Barriers: insurance auth; clinical stability Chart reviewed. Auth remains pending. Messaged facility via [facility] to provide weekend TCC's direct contact information. TCC will continue to follow. * Care Plan - Michael Norwood RN - 08/18/2023 8:57 AM EST The patient is The patient's goals for the shift include safety The clinical goals for the shift include rest * Care Coordination - Jessica Hector RN - 08/17/2023 4:16 PM EST Authorization continues to remain pending. Tasked DP weekend and Weekend PT/OT to follow. 2 terry , bedside RN and Dr. Patricia updated. Requested [facility] to call floor this weekend and ask for Kuldip irizarry TCC to follow patient case. Patient will need a 7000 before he leaves. TCC section ofCOC completed. * Care Coordination - Raz Escalante - 08/17/2023 4:12 PM EST Updated notes placed to [facility] via [facility] per TCC request. Await review and response regarding ability to accept. TCC notified. * Care Coordination - CAR Verduzco - 08/17/2023 2:44 PM EST Weekend dc form completed and placed on patients chart for [facility]. This worker did speak with Nurse, Jaz Carrasco, at [facility] [phone] ext [phone]. She indicates that patient is not medically appropriate at this time to come back as he needs to be ind ependent and be able to navigate between different buildings and to get to meals and other daily activities. Discussed this with patients son and he feels patient would benefit from prison at this time. This worker will reach out to the [facility] and see what is needed on their end. * Care Coordination - CAR Verduzco - 08/17/2023 11:47 AM EST Spoke with Donny Curt from security at [facility] in attempts of speaking to someone about patients need for short term prison upon discharge and how that affects his aledged court order for treatment at [facility]. Mr. Elias did take this workers number and [facility]. Will explore the [facility] website to check for additionalinformation. * Care Coordination - Jessica Hector RN - 08/17/2023 11:28 AM EST Images from the original note were not included. Care Management Progress Note Chart reviewed. Patient remains on 2 east for treatment of Atrial Fib. MARKOS. ETOH. RN reports in rounds that patient is stable from a CIWA prospective. RN reports patient has not had a sitter in his room for over 24 hours. Patient does not have restraints. Sent message to Dr. Patricia regarding discharge readiness from his standpoint; awaiting response. Still awaiting authorization from [employer]. TCC will follow. Discharge Milestones and Delays Expected Date/Time: 08/15/[address] discharge order Complete med reconciliation Case mgmt discharge readiness Clinical Stability Diagnsotic Workup Expected Discharge History Expected Date/Time Set By Reviewed At 08/15/2023 CAR Verduzco 08/17/2023 9:15 AM Sitter, scheduled ativan. [facility] upon dc . Mandated to go there. Up with one assist. Tapering the Ativan in the next few days. 08/15- . Auth started today. 08/17- Dc today 08/15/2023 Lizshamika uBchanan, CAR 08/15/2023 9:33 AM Sitter, scheduled ativan. [facility] upon dc . Mandated to go there. Up with one assist. Tapering the Ativan in the next few days. . Auth started today. 08/15/2023 LizCAR Lagunas 08/14/2023 9:05 AM Sitter, scheduled ativan. [facility] upon dc . Mandated to go there. Up with one assist. Tapering the Ativan in the next few days. 08/14/2023 Josesito Echevarria APRN - FOUNDER PRESIDENT [employer] CEO 08/11/2023 6:39 PM 08/14/2023 Aadm Guzman MD 08/11/2023 3:13 PM Length of Stay (Days): 6 GMLOS: 3.5 * Care Coordination - Eddy Carvajal - 08/17/2023 10:07 AM EST Sent updated notes to [facility] per [facility] request. Await review and response regarding ability to accept. TCC notified. * Care Coordination - Jessica Hector RN - 08/15/2023 8:42 AM EST Images from the original note were not included. Care Management Progress Note Patient remains on 2 east for treatment of atrial fibrillation. On Po Eliquis, IV Thiamine and CIWAprotocol. RN reported in rounds patient is still on CIWA for ETOH. Still has sitter at bedside. Psychiatry following. Cardiology following. Received message from Dr. Patricia; states he anticipates medical readiness tomorrow or Sunday. He and bedside nurse are also aware patient will need to be sitter free for 24 hours before discharge. [facility] accepted. Requested facility started authorization in anticipation of improvement in next few days. Will follow. 0844: Placed call to Son Dewayne to give update. Left name and call back number. Awaiting return call to give update. Discharge Milestones and Delays Expected Date/Time: 08/15/[address] discharge order Complete med reconciliation Case mgmt discharge readiness Clinical Stability Diagnsotic Workup Expected Discharge History Expected Date/Time Set By Reviewed At 08/15/2023 CAR Verduzco 08/15/2023 9:33 AM Sitter, scheduled ativan. [facility] upon dc . Mandated to go there. Up with one assist. Tapering the Ativan in the next few days. 08/15- . Auth started today. 08/15/2023 CAR Verduzco 08/14/2023 9:05 AM Sitter, scheduled ativan. [facility] upon dc . Mandated to go there. Up with one assist. Tapering the Ativan in the next few days. 08/14/2023 Josesito Echevarria APRN - FOUNDER PRESIDENT [employer] CEO 08/11/2023 6:39 PM 08/14/2023 Adam Guzman MD 08/11/2023 3:13 PM Length of Stay (Days): 4 GMLOS: No GMLOS Documented * Care Coordination - Eddy Carvajal - 08/15/2023 7:41 AM EST Referral placed to SNF- [facility] via [facility] per TCC request. Await review and response regarding ability to accept. TCC notified. * Care Coordination - Savannah Wang RN - 08/14/2023 2:02 PM EST Images from the original note were not included. Care Management Progress Note Pt remains on 2E. Admitted due to afib & ETOH withdrawal. Therapy saw today & recommending SNF. Will continue to follow for improvement as pt is on CIWA & requiring sitter. If pt improveswill need to return to [facility] as mandated by court. If no improvement in ambulation then will need SNF. Spoke with aissatou Buchanan. SNF list emailed to aissatou @ [email or web address]. Instructed to pick 3 facilities & to let TCC know when choices made. [address] chose following SNF. [facility] tasked to make referrals1.[facility] 2.[facility] 3.[facility] Discharge Milestones and Delays Expected Date/Time: 08/15/[address] discharge order Complete med reconciliation Case mgmt discharge readiness Clinical Stability Diagnsotic Workup Expected Discharge History Expected Date/Time Set By Reviewed At 08/15/2023 CAR Verduzco 08/14/2023 9:05 AM Sitter, scheduled ativan. [facility] upon dc . Mandated to go there. Up with one assist. Tapering the Ativan in the next few days. 08/14/2023 Josesito Echevarria APRN - FOUNDER PRESIDENT [employer] CEO 08/11/2023 6:39 PM 08/14/2023 Adam Guzman MD 08/11/2023 3:13 PM Length of Stay (Days): 3 GMLOS: No GMLOS Documented * Care Coordination - Savannah Wang RN - 08/13/2023 1:16 PM EST Care Managment Initial Assessment Date: 08/13/2023 Patient Name: Messi Waldrop : 1955 Patient Information Source of Information: Patient Sheet Turner Name/Contact Information: Aissatou Buchanan Cognition/Language: Impaired Permission given to speak with patient sales representative canvas products/caregiver as indicated: Yes Confirmation of Payer with patient/family: Yes Payer Name: [employer] Medicare : No Confirmation of Primary Care Physician: Confirmed PCP Name: Gian Primary Caregiver: Self If assistance needed, confirmed caregiver ready, willing and able to care for patient at discharge:Yes Confirmed with: son Living Arrangements Current Residence: House Number of Floors 2 Number of Entry Steps: Bed/Bath Levels: Both first floor Facility: (Inpt alcohol rehab) Facility Name: [facility] Plan to Return: No Lives with: Extended family members (lives with brother Luís) Support Systems: Children, Family members Activities of Daily Living Ambulation: Independent Bathing/Dressing: Independent Elimination/Continence/Toileting: Independent Feeding: Independent Who Assists with Activities of Daily Living: self Instrumental Activities of Daily Living Prescription Coverage: Yes [facility]acy Used[facility] Medication Management: Independent Transportation/Shopping: Assistance Provider Transportation/Shopping Assistance Provider Name: family Transportation Mode: car, walks Needs Assistance with Transportation at Discharge: No Meal Preparation: Independent Laundry/Cleaning: Independent Finances/Bill Paying: Independent Communication: Independent Types of Care Services/Equipment Utilized Care Services: ([facility]) Dialysis Type: NA Durable Medical Equipment: (denied) Patient's Goal/Discharge Plan Patient expects to be discharged to: [facility] Discharge Planning Actions: continue to follow Patient's Choice Rights and [employer] and Collaborative Relationships Disclosed as Indicated for Post-Acute Care: Interdisciplinary Team Engagement: Social Work Referral for: Additional Information: Pt confused. Has sitter. Spoke with pt aissatou Buchanan via phone,introduced self & role.Pt normally independent, manages medications, ADL's & home tasks. Per son pt alcoholic & mandated to [facility] to avoid penitentiary. Pt admitted to [facility] on 08/09 per RN there & then admitted here on 08/11.Pt to return to [facility] at discharge. Reason for admission:SOB, afib RVR. Cardiology, Psychiatry following, ECHO, duoneb, CIWA. Savannah Wang RN * Care Plan - Torri López RN - 08/12/2023 12:31 PM EST The patient is Moderately Stable - Low risk of patient condition declining or worsening The patient's goals for the shift include eating something. The clinical goals for the shift include will refrain from inappropriate touching and communication. Over the shift, the patient did not make progress toward the following goals. Barriers to progression include continued inappropriate actions. Recommendations to address these barriers include further teaching involving protective services. Problem: Knowledge Deficit Goal: Patient/family/caregiver demonstrates understanding of disease process, treatment plan, medications, and discharge instructions Outcome: Not Progressing Problem: Potential for Compromised Skin Integrity Goal: Skin Integrity is Maintained or Improved Outcome: Not Progressing Goal: Nutritional status is improving Outcome: Not Progressing Problem: Urinary Incontinence Goal: Perineal skin integrity is maintained or improved Outcome: Not Progressing * Care Coordination - Kuldip Diaz RN - 08/12/2023 11:59 AM EST Care Coordination Daily Note/Update Clinical Update: hx of alcohol abuse, presented with SOB; found to be A-fib with RVR; refusing IV and tele; poor historian - came to ER from a rehab facility and prior to that was in [facility]; has sitter at bedside due to inappropriate behavior and trying to get up without assistance (has bedalarm) Discharge Plan: undetermined Discharge Barriers: clinical stability; safe discharge plan Chart reviewed. Stopped by patient room to complete initial assessment but patient appeared confused and agitated. Sitter informed TCC that he has been like that for a while and is very inappropriatewith female staff in his lucid moments. Called patient's emergency contact, his son Dewayne Waldrop, at . Left HIPAA compliant message requesting a return call. TCC will continue to follow. documented in this [facility]01-24-2024 History of Present illness Narrative* Viraj Agrawal RN - 08/22/2023 12:58 PM EST Report called to Brandyn at [facility]. No questions at this time. * Adam Guzman MD - 08/21/2023 1:23 PM EST Images from the original note were not included. Hospitalist Progress Note 08/21/2023 Subjective: Admit Date: 08/11/2023 PCP: John Springer MD Room#: B2-257/B2-257 A Brief Hospital course: Patient is a 68-year-old gentleman from an extended care facility, he was in the penitentiary before, admitted for increasing shortness of breath, has A-fib with RVR and currently on Lopressor and Eliquis, also has chronic ethanol abuse currently not in withdrawal effects but has behavioral issues and memory loss, walking in the hallway with PT and OT, sometimes behaves inappropriately History of major depression was on Zoloft before but suspect compliance issues Interval History: Seen and examined. Comfortable No new complaints. 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 COPD (chronic obstructive pulmonary disease) (HCC) Elevated blood pressure Essential (primary) hypertension 07/08/2017 Hyperlipidemia Indigestion Insomnia Prediabetes Umbilical hernia LABS: CBC: Recent Labs 08/21/23 0312 WBC 5.2 RBC 3.47* HGB 10.9* HCT 33.1* MCV 95.5 RDW 17.7* PLT 249 BMP: Recent Labs 08/20/23 0529 08/21/23 031 NA 136 133* K 5.0 4.7 CL 105 106 CO2 25 23 BUN 21* 27* CREATININE 1.05 1.21 GLUCOSE 99 91 CALCIUM 8.9 8.6 ANIONGAP 7 4 LIVER PROFILE: Recent Labs 08/20/23 0529 08/21/23 0312 AST 49* 37 ALT 48 36 BILITOT 0.7 0.4 ALKPHOS 127* 125 PROT 6.7 5.9* PT/INR: No results for input(s): PROTIME, INR in the last 72 hours. CARDIAC ENZYMES: No results for input(s): TROPONINI in the last 72 hours. Procalcitonin: No results found for: PROCAL COVID-19 PCR: No results for input(s): COVID19 in the last 72 hours. Objective: Vitals: BP 122/78 Pulse 75 Temp 36.8 C (98.2 F) (Temporal) Resp 18 Ht 5' 9 (1.753 m) Wt 177 lb 7.5 oz (80.5 kg) SpO2 100% BMI 26.21 kg/m Pulse Ox: SpO2 Av % Min: 94 % Max: 100 % Supplemental O2: Physical Exam Constitutional: Appearance: Normal appearance. Cardiovascular: Rate and Rhythm: Normal rate. Heart sounds: Normal heart sounds. Pulmonary: Effort: Pulmonary effort is normal. Breath sounds: Normal breath sounds. Abdominal: General: Bowel sounds are normal. Palpations: Abdomen is soft. Musculoskeletal: Right lower leg: No edema. Left lower leg: No edema. Neurological: General: No focal deficit present. Mental Status: He is alert. Medications: apixaban, 5 mg, Oral, BID cholecalciferol, 1,000 Units, Oral, Daily folic acid, 1 mg, Oral, Daily insulin lispro, 0-6 Units, SubCUTAneous, TID WC And insulin lispro, 0-6 Units, SubCUTAneous, Nightly losartan, 50 mg, Oral, Daily metoprolol tartrate, 100 mg, Oral, BID mometasone-formoterol, 2 puff, Inhalation, BID nicotine, 1 patch, TransDERmal, Daily Followed by [START ON 09/22/2023] nicotine, 1 patch, TransDERmal, Daily Followed by [START ON 10/06/2023] nicotine, 1 patch, TransDERmal, Daily thiamine, 200 mg, Oral, Daily Assessment Data: (CAT1) Reviewed 1 notes from different specialty or health system (each=1). 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 Major depression History of ethanol abuse with transaminitis and macrocytic anemia History of tonsillar cancer Chronic anxiety disorder History of ADHD Stable chronic problems affecting care, new non-acute diagnoses: Plan As a result of the above findings & factors, the following mgmt was pursued: - neurology consulted for possible wernicke encephalopathy - DC planning - am labs, replace lytes prn - PT/OT/CM/SW - delirium precautions: increase activity - DVT prophylaxis: encourage ambulation and already anticoagulated Extended Emergency Contact Information Primary Emergency Contact: Dewayne Waldrop Relation: Child Adam Guzman MD Division of Hospitalist Medicine [facility] * Kierra Prado, [place] - 08/21/2023 11:11 AM EST Nutrition Assessment Type and Reason for Visit: Reassess Nutrition Recommendations/Plan: Continue with Adult diet Regular; Low Sodium (2 gm) Continue Ensure High Protein once daily. Ensure High Protein provides 160 kcals, 16 g protein per serving. Please document pt's PO intakes via flowsheet to accurately assess PO intake adequacy. ETOH hx- on Thiamine, Folate, and D3 supplementation. Monitor intakes, weights, and labs weekly. RD will follow. 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 No evidence of Ensures supplements piling up; pt just had one unconsumed on his tray. Pt remained asleep during RD visit; did notwake up to avoid agitation. No sitter at bedside. Per staff, pt still with confusion when awake. Planned for [employer] at co. Estimated Daily Nutrient Needs: Energy Requirements Based On: Kcal/kg Weight Used for Energy Requirements: Current Weight for Energy Calculation (kg): 79 kg Total Energy Requirements (kcals/day): 7130-0732 kcals (25-30 kcals/kg) Weight Used for Protein Requirements: Current Weight in Kg Used for Protein Requirements: 79 kg Estimated Total Protein (g/day): 79-95 (1-1.2g/kg) Estimated Daily Total Fluid (ml/day): 5647-9669 ml/day or per MD Nutrition Related Findings: no edema; Na 133, BUN 27, Hgb 10.9, Hct 33.1, albumin 3.2 Wound Type: None Current Nutrition Therapies: Adult diet Regular; Low Sodium (2 gm) Current Oral Intake Average Meal Intake: 76-100% Average Supplements Intake: Unable to assess Anthropometric Measures: Height: 175.3 cm (5' 9) Current Body Weight: 80.3 kg (177 lb) Weight Source: Not Specified Admission Body Weight: 78.9 kg (174 lb) (standing scale) Usual Body Weight: 80.3 kg (177 lb) (10/11/22) % Weight Change (Calculated): -1.7 Ina Body Weight (lbs) (Calculated): 160 lbs Ina Body Weight (Kg) (Calculated): 73 kg % Ina Body Weight (Calculated): 108.8 % BMI (kg/m2) (Calculated): 26.1 Weight Adjustment For: No Adjustment BMI Categories: Overweight (BMI 25.0-29.9) Nutrition Diagnosis: Altered nutrition-related lab values related to cardiac dysfunction as evidenced by lab values, other (comment) (NT pro BNP) Nutrition Interventions: Nutrition Education/Counseling: No recommendation at this time Coordination of Nutrition Care: Continue to monitor while inpatient Plan of Care discussed with: Pt remained asleep, sitter free Goals: Previous Goal Met: Progressing toward Goal(s) Goals: PO intake 75% or greater, by next RD assessment Specify Other Goals: Labs will trend towards baseline Nutrition Monitoring and Evaluation: Behavioral-Environmental Outcomes: Readiness for Change Food/Nutrient Intake Outcomes: Diet Advancement/Tolerance, Food and Nutrient Intake, Supplement Intake Physical Signs/Symptoms Outcomes: Biochemical Data, GI Status, Fluid Status or Edema, Nutrition Focused Physical Findings, Skin, Weight Discharge Planning: Continue current diet Kierra Prado RD Contact: *[phone] or via Secure Chat EY Jensen - 08/21/2023 9:36 AM EST Images from the original note were not included. OCCUPATIONAL THERAPY [facility] Treatment Note Name/MRN: Messi Waldrop ([id number]) Date of : 1955 Age: 68 y.o. Room/Bed: B2-257/B2-257 A Visit #: 3 out of 7 visits Discharge Recommendation: [facility] Facility Equipment Needed: No Assessment Pt responded to session fair. Pt completed UE dressing and bed mobility with Min A. Pt completed STS and functional mobility with CGA. Pt requires increased time for participation, due to cognition deficit. Pt mildly inappropriate during session. Pt recommended for SNF at discharge. Pt would benefit from SNF to improve functional indep. Subjective Pt R sidelying in bed, agreeable to OT services. Per RN, pt okay to see. Pt is AO x2. Pain: Pt denies any current pain. Medical Precautions: No active isolations Proper PPE donned/doffed in accordance with facility standards. Fall Risk: Castro Fall Risk Score: 65 (High Risk) Precautions/Restrictions: N/A Family/Caregiver Present: none Objective Bed Mobility Supine to sit: Min Assist Sit to supine: Modified Independent Scooting: Modified Independent Pt completed supine to sit with Min A, requiring assistance from therapist hand for trunk control and stability. Pt completed all other aspects of bed mobility with Mod I. Transfers/Mobility Sit to stand: Contact Guard Stand to sit: Contact Guard Sitting balance: Modified Independent Standing balance: Contact Guard Functional mobility: Contact Guard Pt completed STS with CGA using FWW for support and stability. Pt required Mod VC for proper hand placements on FWW for safety. Pt completed standing balance and functional mobility with CGA. Pt completed medium hallway distance using FWW with conversation throughout walk, redirection needed throughout session. Attempting to abandon FWW at times, VC needed to redirect. Teachback recorded. Device(s) used: front wheeled walker and hospital bed Cognition - Arousal/alertness: delayed responses to stimuli - Following commands: follows one step commands with increased time - Attention span: attends with cues to redirect - Insights: decreased awareness of deficits Impaired due to cognition deficits. Plan Continue acute OT per plan of care. Safety/Education Safety Safety Devices in place: All fall risk precautions in place, call light within reach, left in bed, bed alarm in place, gait belt, patient at risk for falls, and nurse notified Restraints: No Education Education Given To: patient Education Provided: OT Role, Precautions, Transfer Training, Orientation, Equipment, and Fall Prevention Education Education Method: Verbal, Demonstration, and Teach Back Barriers to Learning: Cognition Education Outcome: Verbalized Understanding, Demonstrated Understanding, and Continued Education Needed AM-PAC AM-PAC Inpatient Daily Activity Raw Score: 17 ADL Inpatient CMS G-Code Modifier: CK Goals Patient Stated Goal: Encounter Problems Encounter Problems (Active) Balance Patient will tolerate standing for 2 minutes with SBA at fww to allow increased independence in occupational participation. (Progressing) Start: 08/14/23 Expected End: 08/28/23 Patient will maintain static standing balance for 8 minutes with modified independence in order to demonstrate decreased risk of falling. (Progressing) Start: 08/14/23 Expected End: 08/28/23 Dressing Upper Extremities Patient will complete upper body ADLs with mod I. (Progressing) Start: 08/14/23 Expected End: 08/28/23 Dressings Lower Extremities Patient will complete lower body ADLs with SBA. (Not Addressed) Start: 08/14/23 Expected End: 08/28/23 Mobility Patient will demonstrate functional ambulation SBA with fww. (Progressing) Start: 08/14/23 Expected End: 08/28/23 Toileting Patient will complete toileting tasks at standard toilet with SBA. (Not Addressed) Start: 08/14/23 Expected End: 08/28/23 Transfers Patient will complete functional transfer with rolling walker with SBA in order to prepare for ambulation. (Progressing) Start: 08/14/23 Expected End: 08/28/23 Patient will perform bed mobility with modified independence in order to improve independence and prepare for out of bed mobility. (Progressing) Start: 08/14/23 Expected End: 08/28/23 Therapy Time Individual Co-treatment Time In 09 Time Out 0925 Minutes 16 Timed Code Treatment Minutes: 16 Minutes (1 Ther Act) Gonzales Jensen I personally guided the care of this patient's treatment with the GLUE [employer]ED[employer] student and agree with the above note. Sasha PERRY/Norm * Salina Barclay PT - 08/20/2023 2:00 PM EST Images from the original note were not included. PHYSICAL THERAPY [facility] Treatment Note Name/MRN: Messi Waldrop ([id number]) Date of : 1955 Age: 68 y.o. Room/Bed: B2-257/B2-257 A Visit #: 3 out of 5 visits Discharge Recommendation: [facility] Facility Other: TBD at discharge location Assessment Pt continues to present with decreased functional independence and safety. Pt with inappropriate behavior in hallway and requires constant redirection with poor carryover. Pt with impaired cognition and odd responses to questions. Pt requires SBA for bed mobility, CGA for transfers and Enid for ambulation with no device. Pt demos unsteadiness and use of furniture and handrail for balance. Pt adamantly declining FWW use. Pt should continue to benefit from skilled PT to increase functional independence and safety. Rec SNF. Subjective Pt lying in bed pleasantly confused and making odd comments that are off subject. Pain: Pt denies any current pain. Medical Precautions: No active isolations Proper PPE donned/doffed in accordance with facility standards. Fall Risk: Castro Fall Risk Score: 50 (High Risk) Precautions/Restrictions: N/A Overall Cognitive Status: Exceptions - Arousal/alertness: delayed responses to stimuli - Following commands: inconsistently follows commands - Attention span: difficulty attending to directions and difficulty dividing attention - Memory: decreased recall of recent events and decreased short term memory - Safety judgement: decreased awareness of need for assistance and decreased awareness of need for safety - Problem solving: assistance required to generate solutions, assistance required to implement solutions, assistance required to identify errors made, assistance required to correct errors made, and decreased awareness of errors - Insights: decreased awareness of deficits - Initiation: requires cues for all - Sequencing: requires cues for all Overall Orientation Status: Oriented to Person Family/Caregiver Present: none Objective Ambulation Ambulation 1 Assistive device(s) used: none Assist level: Min Assist Distance (ft): ~50'x1 Quality of gait: reciprocal stepping, shuffling, slow krunal, postural sway Pt completed with no device and requires Enid for steadiness and redirection with tasks. Pt with inappropriate behavior throughout mobility and attempting to grab other staff members. Transfers/Mobility Sit to stand: Contact Guard Stand to sit: Contact Guard From EOB to FWW with CGA for safety. Pt then pushed FWW to the side and refused to use. Decreased safety awareness and constant cues to redirect. Device(s) used: front wheeled walker Bed Mobility Supine to sit: SBA Sit to supine: SBA Scooting: SBA Cues for initiation and sequencing. Cues to redirect attention. Pt with poor overall safety awareness. Plan Continue acute PT per plan of care. Safety/Education Safety Safety Devices in place: All fall risk precautions in place, call light within reach, left in bed, bed alarm in place, gait belt, patient at risk for falls, and nurse notified Restraints: N/A Education Education Given To: patient Education Provided: PT Role, PT Goals, Gait Training, Plan of Care, Precautions, Transfer Training,Energy Conservation, Equipment, and Discharge Recommendations Education Method: Verbal and Demonstration Barriers to Learning: Cognition Education Outcome: Unable to Verbalize, Unable to Demonstrate, and Continued Education Needed Outcome Measures AM-PAC AM-PAC Inpatient Mobility Raw Score (No Stairs) : 15 Goals Patient Stated Goal: Pt did not state. Encounter Problems Encounter Problems (Active) Balance Patient will maintain dynamic standing balance for 4 minutes with CGA in order to demonstrate decreased risk of falling. (Progressing) Start: 08/14/23 Expected End: 08/21/23 Balance Patient will maintain static sitting balance for 3 minutes with supervision in order to demonstrateimproved postural control and prepare for out of bed mobility. (Completed) Start: 08/19/23 Expected End: 08/26/23 Resolved: 08/20/23 Added by PT 08/19 Patient will maintain dynamic sitting balance for 3 minutes with supervision in order to demonstrate improved postural control and prepare for out of bed mobility. (Progressing) Start: 08/19/23 Expected End: 08/26/23 Added by PT 08/19 Exercise Patient will complete lower extremity exercises for 1-2 sets / 5-10 reps in order to improve strength and activity tolerance for mobility. (Not Addressed) Start: 08/14/23 Expected End: 08/21/23 Mobility Patient will ambulate 25 feet with CGA and rolling walker in order to improve safety and independence with mobility. (Progressing) Start: 08/14/23 Expected End: 08/21/23 Transfers Patient will perform bed mobility with modified independence in order to improve independence and prepare for out of bed mobility. (Progressing) Start: 08/19/23 Expected End: 08/26/23 Added by PT 08/19 Encounter Problems (Resolved) Transfers Patient will perform bed mobility with SBA in order to improve independence and prepare for out of bed mobility. (Completed) Start: 08/14/23 Expected End: 08/21/23 Resolved: 08/18/23 Patient will complete sit to stand transfer with CGA to rolling walker in order to improve safety and prepare for out of bed mobility. (Completed) Start: 08/14/23 Expected End: 08/21/23 Resolved: 08/20/23 Therapy Time Individual Co-treatment Time In 0947 Time Out 0957 Minutes 10 Timed Code Treatment Minutes: 9 Minutes (1 GT) Salina Barclay PT * Nichole Stephens MD - 08/20/2023 10:40 AM EST Images from the original note were not included. Hospitalist Progress Note 08/20/[phone]: Please secure chat me for patient care issues. [phone]: Please secure chat [facility] Hospitalist for any issues. Subjective: Admit Date: 08/11/2023 PCP: John Springer MD Room#: B2-257/B2-257 A Brief History: Patient is a 68-year-old gentleman from an extended care facility, [facility], admitted for increasing shortness of breath, has A-fib with RVR and currently on Lopressorand Eliquis, also has chronic ethanol abuse currently not in withdrawal effects but has behavioral i ssues and memory loss, walking in the hallway with PT and OT, sometimes behaves inappropriately History of major depression was on Zoloft before but suspect compliance issues Chief Complaint : Memory issues and behavioral changes Interval History: Comprehension poor, but states no chest pain or shortness of breath Adult diet Regular; Low Sodium (2 gm) @[id number]@ 24HR INTAKE/OUTPUT: Intake/Output Summary (Last 24 hours) at 08/20/2023 1041 Last data filed at 08/20/2023 0310 Gross per 24 hour Intake -- Output 2 ml Net -2 ml 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 COPD (chronic obstructive pulmonary disease) (HCC) Elevated blood pressure Essential (primary) hypertension 07/08/2017 Hyperlipidemia Indigestion Insomnia Prediabetes Umbilical hernia LABS: CBC: Recent Labs 08/18/23 0448 WBC 4.5 RBC 3.77* HGB 11.9* HCT 36.9* MCV 97.7 RDW 18.0* PLT 225 BMP: Recent Labs 08/18/23 0448 08/20/23 0529 NA 135 136 K 4.3 5.0 CL 102 105 CO2 20* 25 BUN 24* 21* CREATININE 1.16 1.05 GLUCOSE 101* 99 CALCIUM 8.9 8.9 ANIONGAP 13 7 LIVER PROFILE: Recent Labs 08/18/23 0448 08/20/23 0529 AST 33 49* ALT 54* 48 BILITOT 0.5 0.7 ALKPHOS 134* 127* PROT 6.6 6.7 PT/INR: No results for input(s): PROTIME, INR in the last 72 hours. CARDIAC ENZYMES: No results for input(s): TROPONINI in the last 72 hours. Procalcitonin: No results found for: PROCAL COVID-19 PCR: No results for input(s): COVID19 in the last 72 hours. Objective: Vitals: BP (!) 142/97 (BP Location: Left arm, Patient Position: Lying) Pulse 108 Temp 36.3 C (97.4 F) (Temporal) Resp 18 Ht 5' 9 (1.753 m) Wt 171 lb 10.3 oz (77.9 kg) SpO2 96% BMI 25.35 kg/m Pulse Ox: SpO2 Av.3 % Min: 95 % Max: 97 % Physical Exam Constitutional: Comments: Appears weak Cardiovascular: Rate and Rhythm: Normal rate. Rhythm irregular. Heart sounds: Normal heart sounds, S1 normal and S2 normal. Pulmonary: Effort: Pulmonary effort is normal. Breath sounds: Normal breath sounds. Musculoskeletal: Right lower le+ Pitting Edema present. Left lower le+ Pitting Edema present. Neurology and psychiatry, inappropriate behavior memory loss not in acute distress Medications: apixaban, 5 mg, Oral, BID cholecalciferol, 1,000 Units, Oral, Daily folic acid, 1 mg, Oral, Daily insulin lispro, 0-6 Units, SubCUTAneous, TID WC And insulin lispro, 0-6 Units, SubCUTAneous, Nightly losartan, 50 mg, Oral, Daily metoprolol tartrate, 100 mg, Oral, BID mometasone-formoterol, 2 puff, Inhalation, BID nicotine, 1 patch, TransDERmal, Daily Followed by [START ON 09/22/2023] nicotine, 1 patch, TransDERmal, Daily Followed by [START ON 10/06/2023] nicotine, 1 patch, TransDERmal, Daily thiamine, 100 mg, Oral, Daily Assessment new onset atrial fibrillation Acute kidney injury Chronic ethanol abuse with confusion and memory loss 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 Major depression History of ethanol abuse with transaminitis and macrocytic anemia History of tonsillar cancer Chronic anxiety disorder History of ADHD Stable chronic problems affecting care, new non-acute diagnoses: Past Medical History: Diagnosis Date ADHD (attention deficit hyperactivity disorder) Anxiety Cancer (CMS/HCC) ([facility]) 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 COPD (chronic obstructive pulmonary disease) ([facility]) Elevated blood pressure Essential (primary) hypertension 07/08/2017 Hyperlipidemia Indigestion Insomnia Prediabetes Umbilical hernia Medical Decision Making Cardiology and addiction medicine followed and signed off, on apixaban and Lopressor 100 mg twice aday Advised to quit smoking and drinking PT and OT assessments prison facility placement Appreciate psychiatrist input -am labs, replace lytes prn -increase activity -DVT prophylaxis: [] Lovenox [] Heparin [] SCDs [x] Encourage ambulation [x] Already on Anticoagulation Anticipated Discharge - Date - 08/21/2023 - Location -prison facility - Pending the following -availability and insurance approval Total time spent (which include face to face and non face to face encounters) :36 minutes Toxic drug monitoring/narrow therapeutic index drug monitoring : # Drug name : # Route administered : # Method of monitoring : Extended Emergency Contact Information Primary Emergency Contact: Dewayne Waldrop Relation: Child NICHOLE STEPHENS MD, Division of Hospitalist Medicine [id number] PAGER: Epic chat * Nichole Stephens MD - 08/19/2023 10:49 AM EST Images from the original note were not included. Hospitalist Progress Note 08/19/[id number]: Please secure chat me for patient care issues. [phone]: Please secure chat [facility] Hospitalist for any issues. Subjective: Admit Date: 08/11/2023 PCP: John Springer MD Room#: B2-257/B2-257 A Brief History: Patient is a 68-year-old gentleman admitted from rehab facility via the emergency room with worsening shortness of breath no prior cardiac history, workup revealed atrial fibrillation initially was placed on Cardizem drip also had a mechanical fall with head injury CT head was negative, currently rate controlled on Lopressor and apixaban, cardiology followed Chief Complaint : Refuses to wear telemetry, denies chest pain or shortness of breath Interval History: No overnight issues. Denies chest pain, sob, abdominal pain, nausea, vomiting, diarrhea, constipation, fevers, or chills. 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 COPD (chronic obstructive pulmonary disease) ([facility]) Elevated blood pressure Essential (primary) hypertension 07/08/2017 Hyperlipidemia Indigestion Insomnia Prediabetes Umbilical hernia LABS: CBC: Recent Labs 08/17/23 0340 08/18/23 0448 WBC 3.9 4.5 RBC 3.14* 3.77* HGB 10.0* 11.9* HCT 30.9* 36.9* MCV 98.1* 97.7 RDW 18.4* 18.0* PLT 210 225 BMP: Recent Labs 08/17/23 0340 08/18/23 0448 NA 133* 135 K 4.4 4.3 CL 104 102 CO2 20* 20* BUN 25* 24* CREATININE 1.14 1.16 GLUCOSE 96 101* CALCIUM 8.5 8.9 ANIONGAP 8 13 LIVER PROFILE: Recent Labs 08/17/23 0340 08/18/23 0448 AST 36 33 ALT 56* 54* BILITOT 0.4 0.5 ALKPHOS 133* 134* PROT 5.8* 6.6 PT/INR: No results for input(s): PROTIME, INR in the last 72 hours. CARDIAC ENZYMES: No results for input(s): TROPONINI in the last 72 hours. Procalcitonin: No results found for: PROCAL COVID-19 PCR: No results for input(s): COVID19 in the last 72 hours. Objective: Vitals: BP 119/81 (BP Location: Left arm, Patient Position: Lying) Pulse 97 Temp 36.9 C (98.5 F) (Temporal) Resp 18 Ht 5' 9 (1.753 m) Wt 171 lb 12.8 oz (77.9 kg) SpO2 97% BMI 25.37 kg/m Pulse Ox: SpO2 Av.5 % Min: 92 % Max: 99 % Physical Exam Constitutional: Comments: Appears weak Cardiovascular: Rate and Rhythm: Normal rate. Rhythm irregular. Heart sounds: Normal heart sounds, S1 normal and S2 normal. Pulmonary: Effort: Pulmonary effort is normal. Breath sounds: Normal breath sounds. Musculoskeletal: Right lower le+ Pitting Edema present. Left lower le+ Pitting Edema present. Medications: apixaban, 5 mg, Oral, BID cholecalciferol, 1,000 Units, Oral, Daily folic acid, 1 mg, Oral, Daily insulin lispro, 0-6 Units, SubCUTAneous, TID WC And insulin lispro, 0-6 Units, SubCUTAneous, Nightly losartan, 50 mg, Oral, Daily metoprolol tartrate, 100 mg, Oral, BID mometasone-formoterol, 2 puff, Inhalation, BID nicotine, 1 patch, TransDERmal, Daily Followed by [START ON 09/22/2023] nicotine, 1 patch, TransDERmal, Daily Followed by [START ON 10/06/2023] nicotine, 1 patch, TransDERmal, Daily thiamine, 100 mg, Oral, Daily Assessment New onset Afib # HFrEF # MARKOS # Confusion, likely Korsakoff history of drinking # Transaminitis # Hyperglycemia with hba1c 4.6% # Macrocytic anemia # Hx of EtOH abuse # HTN # Hyperlipidemia # COPD # Hx of tonsilar Cancer # Anxiety # ADHD Stable chronic problems affecting care, new non-acute diagnoses: Past Medical History: Diagnosis Date ADHD (attention deficit hyperactivity disorder) Anxiety Cancer (CMS/HCC) (HCC) 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 COPD (chronic obstructive pulmonary disease) ([facility]) Elevated blood pressure Essential (primary) hypertension 07/08/2017 Hyperlipidemia Indigestion Insomnia Prediabetes Umbilical hernia Medical Decision Making Cardiology and addiction medicine followed and signed off Patient on apixaban, Lopressor 100 mg twice daily Advised to quit smoking and drinking, PT and OT assessments 08/19 -patient refuses to wear telemetry, has inappropriate behavior, on Lopressor and apixaban, heart rate 89-97, patient does not appear to be in acute distress, awaiting PT and OT assessments and prison facility placement -am labs, replace lytes prn -increase activity -DVT prophylaxis: [] Lovenox [] Heparin [] SCDs [x] Encourage ambulation [x] Already on Anticoagulation Anticipated Discharge - Date -August 20 or - Location -prison facility - Pending the following insurance approval and bed availability Total time spent (which include face to face and non face to face encounters) : 36 minutes Toxic drug monitoring/narrow therapeutic index drug monitoring : # Drug name : # Route administered : # Method of monitoring : Extended Emergency Contact Information Primary Emergency Contact: Dewayne Waldrop Relation: Child NICHOLE STEPHENS MD, MD Division of Hospitalist Medicine [employer] PAGER: Epic chat * Evleina Arambulalaura, MECHATRONICS TECHNOLOGIST - 08/19/2023 9:49 AM EST Images from the original note were not included. PHYSICAL THERAPY [facility] Treatment Note Name/MRN: Messi Max November ([id number]) Date of : 1955 Age: 68 y.o. Room/Bed: B2-257/B2-257 A Visit #: 2 out of 5 visits Discharge Recommendation: [facility] Facility Other: TBD at discharge location Assessment Pt presents with decreased functional mobility and limited participation this date. Pt completed bed mobility with Enid/modA and seated balance at EOB with Enid/modA. Unable to initiate transfers dueto pts difficulty following commands and decreased sitting balance. Pt is limited by impaired cognition, decreased strength, and decreased safety awareness. Pt may benefit from continued skilled PT to address current deficits and improve independence with mobility. Recommend SNF. Subjective Patient agreeable to therapy however demonstrates minimal participation. Minimal verbalizations during session. Pain: Pt denies any current pain. Medical Precautions: No active isolations Proper PPE donned/doffed in accordance with facility standards. Fall Risk: Castro Fall Risk Score: 70 (High Risk) Precautions/Restrictions: N/A Overall Cognitive Status: Exceptions - Arousal/alertness: delayed responses to stimuli - Following commands: follows one step commands with increased time, follows one step commands withrepetition, and inconsistently follows commands - Safety judgement: decreased awareness of need for assistance and decreased awareness of need for safety - Problem solving: assistance required to generate solutions, assistance required to implement solutions, assistance required to identify errors made, assistance required to correct errors made, and decreased awareness of errors - Insights: not aware of deficits - Initiation: requires cues for all - Sequencing: requires cues for all Family/Caregiver Present: none Objective Bed Mobility Supine to sit: Mod Assist Sit to supine: Min Assist With HOB slightly elevated and use of bed rail. Pt required max verbal/tactile cues for proper sequencing. Pt demos no initiation of movement and required step by step instruction. Increased time required to perform. When returning to supine, pt required Enid to advance LE's into bed. Decreased eccentric control of trunk noted when returning to supine. MaxAx2 required for supine scooting and repositioning in bed. Pt denied dizziness with positional changes. Balance: Seated balance at EOB required min-modA to maintain frequent verbal/tactile cues to facilitate midline position and COG over SHOLA. Pt demos poor safety awareness and minimal attempts to assist with correcting balance. Pt demos sitting tolerance of approx 4 min before returning to supine. Plan Continue acute PT per plan of care. Safety/Education Safety Safety Devices in place: All fall risk precautions in place, call light within reach, left in bed, bed alarm in place, patient at risk for falls, and nurse notified Restraints: No Education Education Given To: patient Education Provided: PT Role, PT Goals, Plan of Care, and Benefits of Increasing Activity Education Method: Verbal Barriers to Learning: Cognition Education Outcome: Unable to Verbalize, Unable to Demonstrate, and Continued Education Needed Outcome Measures AM-PAC AM-PAC Inpatient Mobility Raw Score (No Stairs) : 8 Goals Patient Stated Goal: Encounter Problems Encounter Problems (Active) Balance Patient will maintain dynamic standing balance for 4 minutes with CGA in order to demonstrate decreased risk of falling. (Not Addressed) Start: 08/14/23 Expected End: 08/21/23 Balance Patient will maintain static sitting balance for 3 minutes with supervision in order to demonstrateimproved postural control and prepare for out of bed mobility. (Progressing) Start: 08/19/23 Expected End: 08/26/23 Added by PT 08/19 Patient will maintain dynamic sitting balance for 3 minutes with supervision in order to demonstrate improved postural control and prepare for out of bed mobility. (Progressing) Start: 08/19/23 Expected End: 08/26/23 Added by PT 08/19 Exercise Patient will complete lower extremity exercises for 1-2 sets / 5-10 reps in order to improve strength and activity tolerance for mobility. (Not Addressed) Start: 08/14/23 Expected End: 08/21/23 Mobility Patient will ambulate 25 feet with CGA and rolling walker in order to improve safety and independence with mobility. (Not Addressed) Start: 08/14/23 Expected End: 08/21/23 Transfers Patient will perform bed mobility with SBA in order to improve independence and prepare for out of bed mobility. (Progressing) Start: 08/14/23 Expected End: 08/21/23 Resolved: 08/18/23 Patient will complete sit to stand transfer with CGA to rolling walker in order to improve safety and prepare for out of bed mobility. (Not Addressed) Start: 08/14/23 Expected End: 08/21/23 Transfers Patient will perform bed mobility with modified independence in order to improve independence and prepare for out of bed mobility. (Progressing) Start: 08/19/23 Expected End: 08/26/23 Added by PT 08/19 Therapy Time Individual Co-treatment Time In 09 Time Out 0944 Minutes 16 Timed Code Treatment Minutes: 14 Minutes (x1 ther act) Evelina Skaggs PTA * ORLANDO Garcia/Norm - 08/19/2023 9:03 AM EST Images from the original note were not included. OCCUPATIONAL THERAPY [facility] Treatment Note Name/MRN: Messi Waldrop ([id number]) Date of : 1955 Age: 68 y.o. Room/Bed: B2-257/B2-257 A Visit #: 2 out of 7 visits Discharge Recommendation: [facility] Facility Prior Level of Function ADL Assistance: Independent Ambulation Assistance: Independent Transfer Assistance: Independent Assessment Pt is making slow progress with OT for ADLS and transfers with pt overall at a min A level with limited participation this date. Pt remains well below baseline and lacking safety awareness causing ptto be a high fall risk. OT continues to recommend SNF level therapy at discharge. Subjective Pt supine in bed and agreeable to OT tx with encouraging, min conversation during session. Pain: Pt denies any current pain. Medical Precautions: No active isolations Proper PPE donned/doffed in accordance with facility standards. Fall Risk: Castro Fall Risk Score: 100 (High Risk) Precautions/Restrictions: N/A Family/Caregiver Present: none Objective ADLs LE Dressing: Min Assist Pt training for LB ADLs while seated with intermittent standing with cues for tech with min A and extended time to complete for participation/processing. Bed Mobility Supine to sit: Min Assist Sit to supine: Min Assist Pt training for bed mob with min A for trunk control due to lack of control at times, HOB elevated and cues to use bed rails Transfers/Mobility Sit to stand: Min Assist Stand to sit: Min Assist Standing balance: Min Assist Functional mobility: Min Assist Pt training for transfers to FWW with min A with cues for hand placement and tech with poor carryover by pt. Pt taina 1 min intervals of standing with min A with occ retro lean noted. Pt able to take afew side steps at EOB with min A and safety cues. Device(s) used: front wheeled walker and hospital bed Cognition - A&O to self Plan Continue acute OT per plan of care. Safety/Education Safety Safety Devices in place: All fall risk precautions in place, call light within reach, left in bed, bed alarm in place, gait belt, patient at risk for falls, and nurse notified Restraints: No Education Education Given To: patient Education Provided: ADL Adaptive Strategies, Transfer Training, and Fall Prevention Education Education Method: Verbal and Demonstration Barriers to Learning: Cognition Education Outcome: Continued Education Needed AM-PAC AM-PAC Inpatient Daily Activity Raw Score: 17 ADL Inpatient CMS G-Code Modifier: CK Goals Patient Stated Goal: Encounter Problems Encounter Problems (Active) Balance Patient will tolerate standing for 2 minutes with SBA at fww to allow increased independence in occupational participation. (Progressing) Start: 08/14/23 Expected End: 08/28/23 Patient will maintain static standing balance for 8 minutes with modified independence in order to demonstrate decreased risk of falling. (Progressing) Start: 08/14/23 Expected End: 08/28/23 Dressing Upper Extremities Patient will complete upper body ADLs with mod I. (Not Addressed) Start: 08/14/23 Expected End: 08/28/23 Dressings Lower Extremities Patient will complete lower body ADLs with SBA. (Progressing) Start: 08/14/23 Expected End: 08/28/23 Mobility Patient will demonstrate functional ambulation SBA with fww. (Progressing) Start: 08/14/23 Expected End: 08/28/23 Toileting Patient will complete toileting tasks at standard toilet with SBA. (Not Addressed) Start: 08/14/23 Expected End: 08/28/23 Transfers Patient will complete functional transfer with rolling walker with SBA in order to prepare for ambulation. (Progressing) Start: 08/14/23 Expected End: 08/28/23 Patient will perform bed mobility with modified independence in order to improve independence and prepare for out of bed mobility. (Progressing) Start: 08/14/23 Expected End: 08/28/23 Therapy Time Individual Co-treatment Time In 0723 Time Out 0737 Minutes 14 Timed Code Treatment Minutes: 14 Minutes (1 ADL) ALEXA Garcia * Maddy Herr PT - 08/18/2023 11:54 AM EST Images from the original note were not included. PHYSICAL THERAPY [facility] Treatment Note Name/MRN: Messi Waldrop ([id number]) Date of : 1955 Age: 68 y.o. Room/Bed: B2-257/B2-257 A Visit #: 1 out of 5 visits Discharge Recommendation: [facility] Other: TBD at discharge location Assessment Pt making progress toward PT goals this session but continues to be limited in instability, poor cognition and safety awareness, decreased functional mobility. Pt is SBA-min A for bed mobility, CGA-min A for transfers, CGA-mod A for ambulation with FWW, and min A for static standing balance to don pants. Pt demos postural sway, x2 acute LOB with min-mod A to correct and very bad safety awareness that puts him at a very high fall risk. Pt demos frequent safety errors and requires constant cueingthroughout session for safe mobility. Pt would continue to benefit from skilled PT intervention to address limitations and improve fall risk. SNF remains appropriate. Subjective Pt requires encouragement to participate in therapy this session. Was helped to bathroom by aide and bed is very soiled with urine and liquids from meal. Pt was assisted into new gown and pants. Pain: Pt denies any current pain. Medical Precautions: No active isolations Proper PPE donned/doffed in accordance with facility standards. Fall Risk: Castro Fall Risk Score: 80 (High Risk) Precautions/Restrictions: CIWA Overall Cognitive Status: Exceptions - Following commands: follows one step commands with increased time and follows one step commands with repetition - Memory: decreased recall of precautions and decreased short term memory - Safety judgement: decreased awareness of need for safety - Problem solving: assistance required to identify errors made, assistance required to correct errors made, and decreased awareness of errors - Insights: decreased awareness of deficits - Initiation: requires cues for some - Sequencing: requires cues for some Overall Orientation Status: Oriented to Place, Oriented to Time, Oriented to Person, and Disoriented to Situation Family/Caregiver Present: none Objective Ambulation Ambulation 1 Assistive device(s) used: none Assist level: Min Assist Distance (ft): 10' Quality of gait: ataxic, shuffling, wide SHOLA, slow krunal, instability through all phases, ambulates without FWW back to bed from bathroom very unsteady. Ambulation 2 Assistive device(s) used: front wheeled walker Assist level: CGA, mod A Distance (ft): 60' x 2 Quality of gait: ataxic, slow krunal, instability through all phases, ambulates more safely with FWW but demos x1 acute LOB due to poor safety awareness with mod A to correct. Pt requires extended seated rest break long term during ambulation. Requires VCs for FWW management, environment negotiation, safety awareness. Transfers/Mobility Sit to stand: Contact Guard, Min Assist Stand to sit: Contact Guard, Min Assist Pt requires VC to complete transfers for hand placement, FWW management. Requires less assistance when has arm rests or grab bars to pull from. Demos poor eccentric control which improves with cueing. Denies dizziness. Device(s) used: front wheeled walker Bed Mobility Supine to sit: Min Assist Sit to supine: SBA Balance: standing to don pants Posture: fair Sitting - Static: Modified Independent Sitting - Dynamic: SBA, requires SBA for balance and min A for LB dressing while sitting on toilet. Standing - Static: Contact Guard to don pants Standing - Dynamic: Min Assist, Mod Assist, x2 acute LOB during session. Plan Continue acute PT per plan of care. Safety/Education Safety Safety Devices in place: All fall risk precautions in place, call light within reach, left in bed, bed alarm in place, gait belt, patient at risk for falls, and nurse notified Restraints: No Education Education Given To: patient Education Provided: PT Role, PT Goals, Gait Training, Precautions, Transfer Training, Fall Prevention Education, Discharge Recommendations, and Benefits of Increasing Activity Education Method: Verbal Barriers to Learning: Cognition Education Outcome: Continued Education Needed Outcome Measures AM-PAC AM-PAC Inpatient Mobility Raw Score (No Stairs) : 16 JH-HLM -HLM Score: Walked 25 ft or more (i.e. walked outside of room) Goals Patient Stated Goal: to get out of the hospital Encounter Problems Encounter Problems (Active) Balance Patient will maintain dynamic standing balance for 4 minutes with CGA in order to demonstrate decreased risk of falling. (Progressing) Start: 08/14/23 Expected End: 08/21/23 Exercise Patient will complete lower extremity exercises for 1-2 sets / 5-10 reps in order to improve strength and activity tolerance for mobility. (Not Addressed) Start: 08/14/23 Expected End: 08/21/23 Mobility Patient will ambulate 25 feet with CGA and rolling walker in order to improve safety and independence with mobility. (Progressing) Start: 08/14/23 Expected End: 08/21/23 Transfers Patient will perform bed mobility with SBA in order to improve independence and prepare for out of bed mobility. (Completed) Start: 08/14/23 Expected End: 08/21/23 Resolved: 08/18/23 Patient will complete sit to stand transfer with CGA to rolling walker in order to improve safety and prepare for out of bed mobility. (Progressing) Start: 08/14/23 Expected End: 08/21/23 Therapy Time Individual Co-treatment Time In 1115 Time Out 1140 Minutes 25 Timed Code Treatment Minutes: 25 Minutes (TA, GT) Maddy eHrr PT * Nichole Stephens MD - 08/18/2023 9:39 AM EST Images from the original note were not included. Hospitalist Progress Note 08/18/[id number]: Please secure chat me for patient care issues. [phone]: Please secure chat [facility] [place] night Hospitalist for any issues. Subjective: Admit Date: 08/11/2023 PCP: John Springer MD Room#: B2-257/B2-257 A Interval History: Feels weak, appears confused, No overnight issues. Denies chest pain, sob, abdominal pain, nausea, vomiting, diarrhea, constipation, fevers, or chills. Adult diet Regular; Low Sodium (2 gm) @[id number]@ 24HR INTAKE/OUTPUT: Intake/Output Summary (Last 24 hours) at 08/18/2023 0939 Last data filed at 08/17/2023 2246 Gross per 24 hour Intake 1128 ml Output -- Net 1128 ml 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 COPD (chronic obstructive pulmonary disease) ([facility]) Elevated blood pressure Essential (primary) hypertension 07/08/2017 Hyperlipidemia Indigestion Insomnia Prediabetes Umbilical hernia LABS: CBC: Recent Labs 08/16/2322008/17/23 0340 08/18/23 0448 WBC 4.2 3.9 4.5 RBC 3.38* 3.14* 3.77* HGB 10.8* 10.0* 11.9* HCT 33.0* 30.9* 36.9* MCV 97.8 98.1* 97.7 RDW 17.8* 18.4* 18.0* PLT 218 210 225 BMP: Recent Labs 08/16/2322008/17/23 0340 08/18/23 0448 NA 132* 133* 135 K 4.6 4.4 4.3 CL 103 104 102 CO2 22 20* 20* BUN 30* 25* 24* CREATININE 1.35* 1.14 1.16 GLUCOSE 159* 96 101* CALCIUM 8.3* 8.5 8.9 ANIONGAP 7 8 13 LIVER PROFILE: Recent Labs 08/16/23 0221 08/17/23 0340 08/18/23 0448 AST 57* 36 33 ALT 67* 56* 54* BILITOT 0.6 0.4 0.5 ALKPHOS 130* 133* 134* PROT 5.6* 5.8* 6.6 PT/INR: No results for input(s): PROTIME, INR in the last 72 hours. CARDIAC ENZYMES: No results for input(s): TROPONINI in the last 72 hours. Procalcitonin: No results found for: PROCAL COVID-19 PCR: No results for input(s): COVID19 in the last 72 hours. Objective: Vitals: BP (!) 135/92 (BP Location: Left arm, Patient Position: Lying) Pulse 93 Temp 36.3 C (97.3 F) (Temporal) Resp 18 Ht 5' 9 (1.753 m) Wt 171 lb 12.8 oz (77.9 kg) SpO2 98% BMI 25.37kg/m Pulse Ox: SpO2 Av % Min: 98 % Max: 98 % Physical Exam Constitutional: Comments: Appears weak Cardiovascular: Rate and Rhythm: Normal rate. Rhythm irregular. Heart sounds: Normal heart sounds, S1 normal and S2 normal. Pulmonary: Effort: Pulmonary effort is normal. Breath sounds: Normal breath sounds. Musculoskeletal: Right lower le+ Pitting Edema present. Left lower le+ Pitting Edema present. Medications: apixaban, 5 mg, Oral, BID cholecalciferol, 1,000 Units, Oral, Daily folic acid, 1 mg, Oral, Daily insulin lispro, 0-6 Units, SubCUTAneous, TID WC And insulin lispro, 0-6 Units, SubCUTAneous, Nightly losartan, 50 mg, Oral, Daily metoprolol tartrate, 100 mg, Oral, BID mometasone-formoterol, 2 puff, Inhalation, BID nicotine, 1 patch, TransDERmal, Daily Followed by [START ON 09/22/2023] nicotine, 1 patch, TransDERmal, Daily Followed by [START ON 10/06/2023] nicotine, 1 patch, TransDERmal, Daily thiamine, 100 mg, Oral, Daily Assessment New onset Afib # HFrEF # MARKOS # Confusion, likely Korsakoff # Transaminitis # Hyperglycemia with hba1c 4.6% # Macrocytic anemia # Hx of EtOH abuse # HTN # Hyperlipidemia # COPD # Hx of tonsilar Cancer # Anxiety # ADHD Stable chronic problems affecting care, new non-acute diagnoses: Past Medical History: Diagnosis Date ADHD (attention deficit hyperactivity disorder) Anxiety Cancer (CMS/HCC) ([facility]) 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 COPD (chronic obstructive pulmonary disease) ([facility]) Elevated blood pressure Essential (primary) hypertension 07/08/2017 Hyperlipidemia Indigestion Insomnia Prediabetes Umbilical hernia Medical Decision Making Cardiology and addiction medicine followed and signed off Patient on apixaban, Lopressor 100 mg twice daily Advised to quit smoking and drinking, PT and OT assessments -am labs, replace lytes prn -increase activity -DVT prophylaxis: [] Lovenox [] Heparin [] SCDs [x] Encourage ambulation [x] Already on Anticoagulation Anticipated Discharge - Date -August 19 or - Location -[facility] - Pending the following -bed availability and insurance approval Total time spent (which include face to face and non face to face encounters) : 36 minutes Toxic drug monitoring/narrow therapeutic index drug monitoring : # Drug name : # Route administered : # Method of monitoring : Extended Emergency Contact Information Primary Emergency Contact: Dewayne Waldrop Relation: Child NICHOLE STEPHENS MD, MD Division of Hospitalist Medicine Acute care solutions PAGER: Epic chat * Rica Jason PTA - 08/17/2023 12:42 PM EST Images from the original note were not included. PHYSICAL THERAPY [facility] Name/MRN: Messi Max November ([id number]) Date: 08/17/2023 Chart review completed this date. PT attempted. Pt sleeping upon entry. Easily woken by name. Reports he is trying to rest at this time. Requests MECHATRONICS TECHNOLOGIST return at a later time. Max encouragement provided with no success. Multiple options for therapy participation provided with no success. PT will continue to follow. Will re-attempt another time/date as schedule permits. Rica Jason, MECHATRONICS TECHNOLOGIST * Ajith Wong MD - 08/17/2023 11:56 AM EST Chief complaint Chief Complaint Patient presents with Shortness of Breath Seen for follow up of substance dependence and use and to monitor withdrawals S: Patient seen and examined. Patient is very sleepy still confused but pleasant REVIEW OF SYMPTOMS: Unable to obtain due to the patient current mental status O: Vitals: 08/17/23 0801 BP: 131/81 Pulse: 86 Resp: 18 Temp: 36.4 C (97.6 F) SpO2: 96% Patient seen and examined. Hypersomnolent but lying very comfortable in bed with no shakes Recent Results (from the past 24 hour(s)) POCT glucose meter Collection Time: 08/16/23 4:16 PM Result Value Ref Range Glucose 92 70 - 100 mg/dL POCT glucose meter Collection Time: 08/16/23 7:57 PM Result Value Ref Range Glucose 119 (H) 70 - 100 mg/dL CBC auto differential Collection Time: 08/17/23 3:40 AM Result Value Ref Range Auto WBC 3.9 3.6 - 10.7 10*3/uL RBC 3.14 (L) 4.40 - 5.90 10*6/uL Hemoglobin 10.0 (L) 13.0 - 18.0 g/dL Hematocrit 30.9 (L) 40.0 - 52.0 % MCV 98.1 (H) 80.0 - 98.0 fL MCH 31.9 26.0 - 34.0 pg MCHC 32.5 32.0 - 36.0 % RDW 18.4 (H) 11.5 - 14.5 % Platelets 210 140 - 440 10*3/uL MPV 9.1 7.4 - 12.4 fL nRBC 0.0 0.0 - 2.0 /100 WBCs Neutrophils Relative 60.7 40.0 - 80.0 % Lymphocytes Relative 15.5 (L) 20.0 - 40.0 % Monocytes Relative 20.7 (H) 2.0 - 10.0 % Eosinophils Relative 1.8 1.0 - 6.0 % Basophils Relative 1.3 0.0 - 2.0 % Neutrophils Absolute 2.4 1.8 - 7.0 10*3/uL Lymphocytes Absolute 0.6 (L) 1.0 - 4.3 10*3/uL Monocytes Absolute 0.8 0.0 - 0.8 10*3/uL Eosinophils Absolute 0.1 0.0 - 0.5 10*3/uL Basophils Absolute 0.0 0.0 - 0.2 10*3/uL Comprehensive metabolic panel Collection Time: 08/17/23 3:40 AM Result Value Ref Range SODIUM 133 (L) 135 - 145 mmol/L POTASSIUM 4.4 3.5 - 5.1 mmol/L CHLORIDE 104 98 - 107 mmol/L CARBON DIOXIDE 20 (L) 22 - 30 mmol/L ANION GAP 8 3 - 13 mmol/L UREA NITROGEN 25 (H) 9 - 20 mg/dL CREATININE 1.14 0.66 - 1.25 mg/dL GLUCOSE 96 70 - 100 mg/dL CALCIUM 8.5 8.4 - 10.4 mg/dL AST (SGOT) 36 15 - 46 U/L ALT 56 (H) 0 - 49 U/L ALKALINE PHOSPHATASE 133 (H) 38 - 126 U/L ALBUMIN 3.0 (L) 3.5 - 5.0 g/dL BILIRUBIN, TOTAL 0.4 0.2 - 1.3 mg/dL TOTAL PROTEIN 5.8 (L) 6.3 - 8.2 g/dL eGFR 70.5 >60.0 mL/min/1.73m*2 POCT glucose meter Collection Time: 08/17/23 6:41 AM Result Value Ref Range Glucose 171 (H) 70 - 100 mg/dL POCT glucose meter Collection Time: 08/17/23 11:05 AM Result Value Ref Range Glucose 149 (H) 70 - 100 mg/dL Assessment/Plan: 1. Alcohol use disorder severe with withdrawals Day # at least 6 days of no use Ciwa q 6 hours Thiamine and folate supplement daily detoxified with ativan and prn medications for symptomology. Patient is stable Done with detox 2-wernicke encephalopathy Thiamine protocol for wernicke encephalopathy Ok to continue the thiamine as out patient 300 mg daily for another week then 100m g daily indefinite Will sign off AJITH WONG MD, Addiction Medicine 08/17/2023 at 11:57 AM * Talisha Patricia MD - 08/17/2023 11:50 AM EST Images from the original note were not included. Hospitalist Progress Note 08/17/2023 Subjective: Admit Date: 08/11/2023 PCP: John Springer MD Room#: B2-257/B2-257 A Interval History: Tolerating diet. No cp, cough, n/v, f/c. Still confused and inappropriate at times. Case and plan discussed with patient and MERLENE Bond, and ADM all separately. All questions answered. Adult diet Regular; Low Sodium (2 gm) 24HR INTAKE/OUTPUT: Intake/Output Summary (Last 24 hours) at 08/17/2023 1150 Last data filed at 08/17/2023 0347 Gross per 24 hour Intake 580 ml Output 921 ml Net -341 ml 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 COPD (chronic obstructive pulmonary disease) (HCC) Elevated blood pressure Essential (primary) hypertension 07/08/2017 Hyperlipidemia Indigestion Insomnia Prediabetes Umbilical hernia LABS: CBC: Recent Labs 08/15/2323008/16/2322008/17/23 0340 WBC 4.0 4.2 3.9 RBC 3.17* 3.38* 3.14* HGB 10.2* 10.8* 10.0* HCT 31.2* 33.0* 30.9* MCV 98.3* 97.8 98.1* RDW 17.7* 17.8* 18.4* PLT 194 218 210 BMP: Recent Labs 08/15/2323008/16/2322008/17/23 0340 NA 132* 132* 133* K 4.6 4.6 4.4 CL 104 103 104 CO2 22 22 20* BUN 31* 30* 25* CREATININE 1.23 1.35* 1.14 GLUCOSE 75 159* 96 CALCIUM 8.2* 8.3* 8.5 ANIONGAP 5 7 8 LIVER PROFILE: Recent Labs 08/15/2323024 0221 08/17/23 0340 AST 61* 57* 36 ALT 76* 67* 56* BILITOT 0.5 0.6 0.4 ALKPHOS 132* 130* 133* PROT 5.4* 5.6* 5.8* PT/INR: No results for input(s): PROTIME, INR in the last 72 hours. CARDIAC ENZYMES: No results for input(s): TROPONINI in the last 72 hours. Procalcitonin: No results found for: PROCAL COVID-19 PCR: No results for input(s): COVID19 in the last 72 hours. Objective: Vitals: BP 131/81 (BP Location: Left arm, Patient Position: Lying) Pulse 86 Temp 36.4 C (97.6 F) (Temporal) Resp 18 Ht 5' 9 (1.753 m) Wt 173 lb 6 oz (78.6 kg) SpO2 96% BMI 25.60 kg/m Pulse Ox: SpO2 Av.3 % Min: 96 % Max: 97 % Supplemental O2: Physical Exam Vitals and nursing note reviewed. Constitutional: General: He is not in acute distress. HENT: Head: Normocephalic. Mouth/Throat: Pharynx: Oropharynx is clear. Eyes: Extraocular Movements: Extraocular movements intact. Conjunctiva/sclera: Conjunctivae normal. Cardiovascular: Rate and Rhythm: Normal rate. Rhythm irregular. Pulses: Normal pulses. Heart sounds: Normal heart sounds. Pulmonary: Effort: Pulmonary effort is normal. Comments: Coarse breath sounds bilaterally Abdominal: General: Bowel sounds are normal. There is no distension. Palpations: Abdomen is soft. Tenderness: There is no abdominal tenderness. Musculoskeletal: Cervical back: Neck supple. Right lower leg: No edema. Left lower leg: No edema. Skin: General: Skin is warm. Capillary Refill: Capillary refill takes less than 2 seconds. Neurological: General: No focal deficit present. Mental Status: He is alert. He is disoriented. Psychiatric: Mood and Affect: Mood normal. Medications: apixaban, 5 mg, Oral, BID cholecalciferol, 1,000 Units, Oral, Daily folic acid, 1 mg, Oral, Daily insulin lispro, 0-6 Units, SubCUTAneous, TID WC And insulin lispro, 0-6 Units, SubCUTAneous, Nightly losartan, 50 mg, Oral, Daily metoprolol tartrate, 100 mg, Oral, BID mometasone-formoterol, 2 puff, Inhalation, BID nicotine, 1 patch, TransDERmal, Daily Followed by [START ON 09/22/2023] nicotine, 1 patch, TransDERmal, Daily Followed by [START ON 10/06/2023] nicotine, 1 patch, TransDERmal, Daily thiamine, 100 mg, Oral, Daily Assessment # New onset Afib # HFrEF # MARKOS # Confusion, likely [place] # Transaminitis # Hyperglycemia with hba1c 4.6% # Macrocytic anemia # Hx of EtOH abuse # HTN # Hyperlipidemia # COPD # Hx of tonsilar Cancer # Anxiety # ADHD Plan Continue apixaban, Cardiology and ADM signed off, follow up labs, I/Os and daily weights, SSI, POCT, PT/OT, discharge planning, see orders. - am labs, replace lytes prn - PT/OT/CM/SW - delirium precautions: increase activity - DVT prophylaxis: encourage ambulation and already anticoagulated Advance Directive: Full Code Anticipated Discharge - Date - 08/17-08/18 - Location - SNF - Pending the following - when auth obtained. Total time spent (which include face to face and non face to face encounters) : 47 minutes Toxic drug monitoring/narrow therapeutic index drug monitoring : # Drug name : apixaban and SS insulin # Route administered : subcutaneous and SQ # Method of monitoring : daily CBC and ac/hs blood glucose/daily BMP Extended Emergency Contact Information Primary Emergency Contact: Dewayne Waldrop [place] Relation: Child TALISHA PATRICIA MD Division of Hospitalist Medicine [facility] * Lucie Bean RD - 08/16/2023 4:25 PM EST Nutrition Assessment Type and Reason for Visit: Reassess Nutrition Recommendations/Plan: Continue Adult diet Regular low sodium (2gm) Per mnt protocol will initiate Ensure HP daily (160 kcals, 16 gm protein per serving) Monitor intakes, weights, and labs weekly. RD will follow. 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 Estimated Daily Nutrient Needs: Energy Requirements Based On: Kcal/kg Weight Used for Energy Requirements: Current Weight for Energy Calculation (kg): 79 kg Total Energy Requirements (kcals/day): 2013-1766 kcals (25-30 kcals/kg) Weight Used for Protein Requirements: Current Weight in Kg Used for Protein Requirements: 79 kg Estimated Total Protein (g/day): 79-95 (1-1.2g/kg) Estimated Daily Total Fluid (ml/day): 5096-9154 ml/day or per MD Nutrition Related Findings: no edema, +bm 08/16. Labs reviewed Wound Type: None Current Nutrition Therapies: Adult diet Regular; Low Sodium (2 gm) Current Oral Intake Average Meal Intake: 76-100% (sitter reports she cut up pts food for breakfast /pt ate without difficulty unsure of lunch intake reports confusion) Average Supplements Intake: None Ordered Anthropometric Measures: Height: 175.3 cm (5' 9) Current Body Weight: 78.9 kg (174 lb) Weight Source: Standing Scale Admission Body Weight: 78.9 kg (174 lb) (standing scale) Usual Body Weight: 80.3 kg (177 lb) (10/11/22) % Weight Change (Calculated): -1.7 Ina Body Weight (lbs) (Calculated): 160 lbs Ina Body Weight (Kg) (Calculated): 73 kg % Ina Body Weight (Calculated): 108.8 % BMI (kg/m2) (Calculated): 25.7 Weight Adjustment For: No Adjustment BMI Categories: Overweight (BMI 25.0-29.9) Nutrition Diagnosis: Altered nutrition-related lab values related to cardiac dysfunction as evidenced by lab values, other (comment) (NT pro BNP) Nutrition Interventions: Nutrition Education/Counseling: No recommendation at this time Coordination of Nutrition Care: Continue to monitor while inpatient Plan of Care discussed with: Pt, sitter Goals: Previous Goal Met: Progressing toward Goal(s) Goals: PO intake 75% or greater, by next RD assessment Specify Other Goals: Labs will trend towards baseline Nutrition Monitoring and Evaluation: Behavioral-Environmental Outcomes: Readiness for Change Food/Nutrient Intake Outcomes: Diet Advancement/Tolerance, Food and Nutrient Intake Physical Signs/Symptoms Outcomes: Biochemical Data, Chewing or Swallowing, GI Status, Fluid Status or Edema, Nutrition Focused Physical Findings, Skin, Weight Discharge Planning: Continue current diet Lucie Bean RD Contact: *[phone] or via Secure Chat * Ajith Wong MD - 08/16/2023 2:10 PM EST Chief complaint Chief Complaint Patient presents with Shortness of Breath Seen for follow up of substance dependence and use and to monitor withdrawals S: Patient seen and examined. Patient is very sleepy still confused but pleasant REVIEW OF SYMPTOMS: Unable to obtain due to the patient current mental status O: Vitals: 08/16/23 0754 BP: 114/82 Pulse: 74 Resp: 18 Temp: 36.5 C (97.7 F) SpO2: 97% Patient seen and examined. Hypersomnolent but lying very comfortable in bed with no shakes Recent Results (from the past 24 hour(s)) POCT glucose meter Collection Time: 08/15/23 6:13 PM Result Value Ref Range Glucose 89 70 - 100 mg/dL POCT glucose meter Collection Time: 08/15/23 8:44 PM Result Value Ref Range Glucose 131 (H) 70 - 100 mg/dL CBC auto differential Collection Time: 08/16/23 2:21 AM Result Value Ref Range Auto WBC 4.2 3.6 - 10.7 10*3/uL RBC 3.38 (L) 4.40 - 5.90 10*6/uL Hemoglobin 10.8 (L) 13.0 - 18.0 g/dL Hematocrit 33.0 (L) 40.0 - 52.0 % MCV 97.8 80.0 - 98.0 fL MCH 32.0 26.0 - 34.0 pg MCHC 32.7 32.0 - 36.0 % RDW 17.8 (H) 11.5 - 14.5 % Platelets 218 140 - 440 10*3/uL MPV 8.9 7.4 - 12.4 fL nRBC 0.1 0.0 - 2.0 /100 WBCs Neutrophils Relative 67.5 40.0 - 80.0 % Lymphocytes Relative 11.6 (L) 20.0 - 40.0 % Monocytes Relative 17.3 (H) 2.0 - 10.0 % Eosinophils Relative 2.1 1.0 - 6.0 % Basophils Relative 1.5 0.0 - 2.0 % Neutrophils Absolute 2.9 1.8 - 7.0 10*3/uL Lymphocytes Absolute 0.5 (L) 1.0 - 4.3 10*3/uL Monocytes Absolute 0.7 0.0 - 0.8 10*3/uL Eosinophils Absolute 0.1 0.0 - 0.5 10*3/uL Basophils Absolute 0.1 0.0 - 0.2 10*3/uL Comprehensive metabolic panel Collection Time: 08/16/23 2:21 AM Result Value Ref Range SODIUM 132 (L) 135 - 145 mmol/L POTASSIUM 4.6 3.5 - 5.1 mmol/L CHLORIDE 103 98 - 107 mmol/L CARBON DIOXIDE 22 22 - 30 mmol/L ANION GAP 7 3 - 13 mmol/L UREA NITROGEN 30 (H) 9 - 20 mg/dL CREATININE 1.35 (H) 0.66 - 1.25 mg/dL GLUCOSE 159 (H) 70 - 100 mg/dL CALCIUM 8.3 (L) 8.4 - 10.4 mg/dL AST (SGOT) 57 (H) 15 - 46 U/L ALT 67 (H) 0 - 49 U/L ALKALINE PHOSPHATASE 130 (H) 38 - 126 U/L ALBUMIN 2.9 (L) 3.5 - 5.0 g/dL BILIRUBIN, TOTAL 0.6 0.2 - 1.3 mg/dL TOTAL PROTEIN 5.6 (L) 6.3 - 8.2 g/dL eGFR 57.5 (L) >60.0 mL/min/1.73m*2 POCT glucose meter Collection Time: 08/16/23 6:56 AM Result Value Ref Range Glucose 98 70 - 100 mg/dL POCT glucose meter Collection Time: 08/16/23 11:23 AM Result Value Ref Range Glucose 135 (H) 70 - 100 mg/dL Assessment/Plan: 1. Alcohol use disorder severe with withdrawals Day # at least 5 days of no use Ciwa q 6 hours Thiamine and folate supplement daily detoxified with ativan and prn medications for symptomology. This dose will be tapered according to clinical signs and symptoms. Patient is not stable Estimate will need 2-3 extra days of detox The patient will be discharged when stable with an active plan of recovery. 2-wernicke encephalopathy Thiamine protocol for wernicke encephalopathy Still not stable AJITH WONG MD, MD Addiction Medicine 08/16/2023 at 2:10 PM * Gonzales Camila - 08/16/2023 2:03 PM EST Images from the original note were not included. OCCUPATIONAL THERAPY [facility] Treatment Note Name/MRN: Messi Waldrop ([id number]) Date of : 1955 Age: 68 y.o. Room[facility]Bed: [facility] A Visit #: 1 out of 7 visits Discharge Recommendation: [facility] Facility Prior Level of Function ADL Assistance: Independent Ambulation Assistance: Independent Transfer Assistance: Independent Assessment Pt responded to session fairly well, pleasantly confused with surroundings and A&O x1 to person. Pt completed LE/UE dressing, toileting with pericare, and functional mobility with Min A. Pt required frequent VC for redirection, safety, and body mechanics. Pt recommended for SNF at discharge. Ptwould benefit from SNF to improve functional mobility and cognitive deficits needed for improved indep. Subjective Pt supine in bed, agreeable to OT services, per RN, pt okay to see. Pain: Pt denies any current pain. Medical Precautions: No active isolations Proper PPE donned/doffed in accordance with facility standards. Fall Risk: Castro Fall Risk Score: 100 (High Risk) Precautions/Restrictions: N/A Family/Caregiver Present: none Objective ADLs UE Dressing: Min Assist LE Dressing: Min Assist Toileting: Min Assist Pt completed LE/UE dressing with Min A. Pt required increased time to complete task and frequent VCfor redirection of task, with good teachback. Pt completed LE dressing x2 during session due to BM incontinence. Pt required increase time and Min A to thread in sitting and to manage over hips. Pt completed bathroom level toileting with Min A, requiring increased time and assistance with hand disinfecting. Pt getting BM on multiple items and body parts, required VC and assist to clean. Bed Mobility Supine to sit: Min Assist Sit to supine: SBA Scooting: SBA Pt completed supine to sit with Min A, with rocking and therapist momentum and support. Pt completed sit to supine with SBA, with minimal LoB. Pt required VC for supine to sit, sit to supine, and scooting for redirection of task and good body mechanics. Transfers/Mobility Sit to stand: Min Assist Stand to sit: Min Assist Toilet: Min Assist Sitting balance: SBA Standing balance: Min Assist Functional mobility: Min Assist Pt completed STS with Min A, using FWW for support and balance. Pt attempting to kneel on floor, required Max A and VC from therapist to return to sitting. VC were used for direction and therapist hand on FWW to keep FWW stable. Pt completed bathroom level toilet transfer with use of L grab bar andMin A. Pt required VC for BUE placement. Pt completed functional mobility with Min A, using a FWW, and therapist hand on FWW for redirection and safety. Pt required increased time and seated rest break x1 due to fatigue and feeling ill. Device(s) used: front wheeled walker and hospital bed Cognition - Insights: decreased awareness of deficits Pt with cognitive deficits leading to decrease insight, safety awareness, orientation. Plan Continue acute OT per plan of care. Safety/Education Safety Safety Devices in place: All fall risk precautions in place, call light within reach, left in bed, bed alarm in place, gait belt, patient at risk for falls, nurse notified, and sitter at entrance of room. Restraints: No Education Education Given To: patient Education Provided: OT Role, Plan of Care, Precautions, Transfer Training, Equipment, and Fall Prevention Education Education Method: Verbal, Demonstration, and Teach Back Barriers to Learning: Cognition Education Outcome: Verbalized Understanding, Demonstrated Understanding, and Continued Education Needed AM-PAC AM-PAC Inpatient Daily Activity Raw Score: 18 ADL Inpatient CMS G-Code Modifier: CK Goals Patient Stated Goal: Encounter Problems Encounter Problems (Active) Balance Patient will tolerate standing for 2 minutes with SBA at fww to allow increased independence in occupational participation. (Progressing) Start: 08/14/23 Expected End: 08/28/23 Patient will maintain static standing balance for 8 minutes with modified independence in order to demonstrate decreased risk of falling. (Progressing) Start: 08/14/23 Expected End: 08/28/23 Dressing Upper Extremities Patient will complete upper body ADLs with mod I. (Progressing) Start: 08/14/23 Expected End: 08/28/23 Dressings Lower Extremities Patient will complete lower body ADLs with SBA. (Progressing) Start: 08/14/23 Expected End: 08/28/23 Mobility Patient will demonstrate functional ambulation SBA with fww. (Progressing) Start: 08/14/23 Expected End: 08/28/23 Toileting Patient will complete toileting tasks at standard toilet with SBA. (Progressing) Start: 08/14/23 Expected End: 08/28/23 Transfers Patient will complete functional transfer with rolling walker with SBA in order to prepare for ambulation. (Progressing) Start: 08/14/23 Expected End: 08/28/23 Patient will perform bed mobility with modified independence in order to improve independence and prepare for out of bed mobility. 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 Sasha PERRY/Norm * Talisha Patricia MD - 08/16/2023 1:25 PM EST Images from the original note were not included. Hospitalist Progress Note 08/16/2023 Subjective: Admit Date: 08/11/2023 PCP: John Springer MD Room#: B2-258/B2-097 A Interval History: Very weak. Tolerating diet. No cp, cough, n/v, f/c. Case and plan discussed with patient and MERLENE Crespo, separately. All questions answered. Adult diet Regular; Low Sodium (2 gm) 24HR INTAKE/OUTPUT: Intake/Output Summary (Last 24 hours) at 08/16/2023 1554 Last data filed at 08/16/2023 1232 Gross per 24 hour Intake 920 ml Output 1 ml Net 919 ml 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 COPD (chronic obstructive pulmonary disease) (HCC) Elevated blood pressure Essential (primary) hypertension 07/08/2017 Hyperlipidemia Indigestion Insomnia Prediabetes Umbilical hernia LABS: CBC: Recent Labs 08/14/2332408/15/2323008/16/23220 WBC 4.1 4.0 4.2 RBC 2.96* 3.17* 3.38* HGB 9.4* 10.2* 10.8* HCT 29.1* 31.2* 33.0* MCV 98.4* 98.3* 97.8 RDW 17.9* 17.7* 17.8* PLT 179 194 218 BMP: Recent Labs 08/14/2332408/15/2323008/16/23220 NA 130* 132* 132* K 3.9 4.6 4.6 CL 103 104 103 CO2 21* 22 22 BUN 37* 31* 30* CREATININE 1.16 1.23 1.35* GLUCOSE 76 75 159* CALCIUM 8.0* 8.2* 8.3* ANIONGAP 6 5 7 LIVER PROFILE: Recent Labs 08/14/2332408/15/2323008/16/23220 AST 82* 61* 57* ALT 94* 76* 67* BILITOT 0.5 0.5 0.6 ALKPHOS 151* 132* 130* PROT 5.3* 5.4* 5.6* PT/INR: No results for input(s): PROTIME, INR in the last 72 hours. CARDIAC ENZYMES: No results for input(s): TROPONINI in the last 72 hours. Procalcitonin: No results found for: PROCAL COVID-19 PCR: No results for input(s): COVID19 in the last 72 hours. Objective: Vitals: BP 112/76 (BP Location: Right arm, Patient Position: Lying) Pulse (!) 40 Temp (!) 35.9 C (96.7 F) (Temporal) Resp 16 Ht 5' 9 (1.753 m) Wt 174 lb (78.9 kg) SpO2 96% BMI 25.70 kg/m Pulse Ox: SpO2 Av % Min: 92 % Max: 97 % Supplemental O2: Physical Exam Vitals and nursing note reviewed. Constitutional: General: He is not in acute distress. HENT: Head: Normocephalic and atraumatic. Eyes: Extraocular Movements: Extraocular movements intact. Pupils: Pupils are equal, round, and reactive to light. Cardiovascular: Rate and Rhythm: Bradycardia present. Rhythm irregular. Pulses: Normal pulses. Pulmonary: Effort: Pulmonary effort is normal. Comments: Coarse breath sounds bilaterally Abdominal: General: Bowel sounds are normal. There is no distension. Palpations: Abdomen is soft. Tenderness: There is no rebound. Musculoskeletal: General: Normal range of motion. Cervical back: Normal range of motion. Right lower leg: No edema. Left lower leg: No edema. Skin: General: Skin is dry. Capillary Refill: Capillary refill takes less than 2 seconds. Neurological: General: No focal deficit present. Mental Status: He is alert. He is disoriented. Psychiatric: Mood and Affect: Mood normal. Medications: apixaban, 5 mg, Oral, BID cholecalciferol, 1,000 Units, Oral, Daily folic acid, 1 mg, Oral, Daily insulin lispro, 0-6 Units, SubCUTAneous, TID WC And insulin lispro, 0-6 Units, SubCUTAneous, Nightly losartan, 50 mg, Oral, Daily metoprolol tartrate, 100 mg, Oral, BID mometasone-formoterol, 2 puff, Inhalation, BID nicotine, 1 patch, TransDERmal, Daily Followed by [START ON 09/22/2023] nicotine, 1 patch, TransDERmal, Daily Followed by [START ON 10/06/2023] nicotine, 1 patch, TransDERmal, Daily thiamine (Vitamin B1) 250 mg in sodium chloride 0.9 % 100 mL IVPB, 250 mg, IntraVENous, q12h Assessment # New onset Afib with RVR # HFrEF # MARKOS, improving # Transaminitis # Hyperglycemia with hba1c 4.6% # Macrocytic anemia # Hx of EtOH abuse # HTN # Hyperlipidemia # COPD # Hx of tonsilar Cancer # Anxiety # ADHD Plan Continue to monitor on telemetry, continue apixaban, CIWA and prn ativan, Cardiology and ADM following, follow up labs, I/Os and daily weights, SSI, POCT, PT/OT, discharge planning, see orders. - am labs, replace lytes prn - PT/OT/CM/SW - delirium precautions: increase activity - DVT prophylaxis: encourage ambulation and already anticoagulated Advance Directive: Full Code Anticipated Discharge - Date - 08/17-08/18 - Location - SNF - Pending the following - clinical improvement, completion of work up and when Ok with consultants Total time spent (which include face to face and non face to face encounters) : 46 minutes Toxic drug monitoring/narrow therapeutic index drug monitoring : # Drug name : apixaban and SS insulin # Route administered : subcutaneous and SQ # Method of monitoring : daily CBC and ac/hs blood glucose/daily BMP Extended Emergency Contact Information Primary Emergency Contact: Dewayne Waldrop Relation: Child TALISHA PATRICIA MD [facility] * Ajith Wong MD - 08/15/2023 2:49 PM EST Chief complaint Chief Complaint Patient presents with Shortness of Breath Seen for follow up of substance dependence and use and to monitor withdrawals S: Patient seen and examined. Still confused but very calm REVIEW OF SYMPTOMS: Unable to obtain due to the patient current mental status O: Vitals: 08/15/23 0719 BP: 113/81 Pulse: 59 Resp: 17 Temp: 36.8 C (98.3 F) SpO2: 96% Patient seen and examined. Alert but not oriented The patient does not remember talking with me at all yesterday Recent Results (from the past 24 hour(s)) POCT glucose meter Collection Time: 08/14/23 4:09 PM Result Value Ref Range Glucose 143 (H) 70 - 100 mg/dL POCT glucose meter Collection Time: 08/14/23 7:23 PM Result Value Ref Range Glucose 69 (L) 70 - 100 mg/dL POCT glucose meter Collection Time: 08/14/23 9:14 PM Result Value Ref Range Glucose 105 (H) 70 - 100 mg/dL CBC auto differential Collection Time: 08/15/23 2:31 AM Result Value Ref Range Auto WBC 4.0 3.6 - 10.7 10*3/uL RBC 3.17 (L) 4.40 - 5.90 10*6/uL Hemoglobin 10.2 (L) 13.0 - 18.0 g/dL Hematocrit 31.2 (L) 40.0 - 52.0 % MCV 98.3 (H) 80.0 - 98.0 fL MCH 32.1 26.0 - 34.0 pg MCHC 32.7 32.0 - 36.0 % RDW 17.7 (H) 11.5 - 14.5 % Platelets 194 140 - 440 10*3/uL MPV 9.3 7.4 - 12.4 fL nRBC 0.0 0.0 - 2.0 /100 WBCs Neutrophils Relative 68.7 40.0 - 80.0 % Lymphocytes Relative 11.9 (L) 20.0 - 40.0 % Monocytes Relative 16.6 (H) 2.0 - 10.0 % Eosinophils Relative 2.7 1.0 - 6.0 % Basophils Relative 0.1 0.0 - 2.0 % Neutrophils Absolute 2.8 1.8 - 7.0 10*3/uL Lymphocytes Absolute 0.5 (L) 1.0 - 4.3 10*3/uL Monocytes Absolute 0.7 0.0 - 0.8 10*3/uL Eosinophils Absolute 0.1 0.0 - 0.5 10*3/uL Basophils Absolute 0.0 0.0 - 0.2 10*3/uL Comprehensive metabolic panel Collection Time: 08/15/23 2:31 AM Result Value Ref Range SODIUM 132 (L) 135 - 145 mmol/L POTASSIUM 4.6 3.5 - 5.1 mmol/L CHLORIDE 104 98 - 107 mmol/L CARBON DIOXIDE 22 22 - 30 mmol/L ANION GAP 5 3 - 13 mmol/L UREA NITROGEN 31 (H) 9 - 20 mg/dL CREATININE 1.23 0.66 - 1.25 mg/dL GLUCOSE 75 70 - 100 mg/dL CALCIUM 8.2 (L) 8.4 - 10.4 mg/dL AST (SGOT) 61 (H) 15 - 46 U/L ALT 76 (H) 0 - 49 U/L ALKALINE PHOSPHATASE 132 (H) 38 - 126 U/L ALBUMIN 2.8 (L) 3.5 - 5.0 g/dL BILIRUBIN, TOTAL 0.5 0.2 - 1.3 mg/dL TOTAL PROTEIN 5.4 (L) 6.3 - 8.2 g/dL eGFR 64.3 >60.0 mL/min/1.73m*2 POCT glucose meter Collection Time: 08/15/23 6:51 AM Result Value Ref Range Glucose 81 70 - 100 mg/dL POCT glucose meter Collection Time: 08/15/23 11:03 AM Result Value Ref Range Glucose 238 (H) 70 - 100 mg/dL Assessment/Plan: 1. Alcohol use disorder severe with withdrawals Day # at least 4 days of no use Ciwa q 6 hours Thiamine and folate supplement daily detoxified with ativan and prn medications for symptomology. This dose will be tapered according to clinical signs and symptoms. Patient is not stable Estimate will need 3-4 extra days of detox The patient will be discharged when stable with an active plan of recovery. 2-wernicke encephalpathy was started on thiamine protocol 2 days ago Still confused today Still not stable AJITH WONG MD, MD Addiction Medicine 08/15/2023 at 2:49 PM * Talisha Patricia MD - 08/15/2023 1:43 PM EST Images from the original note were not included. Hospitalist Progress Note 08/15/2023 Subjective: Admit Date: 08/11/2023 PCP: John Springer MD Room#: B2-257/B2-257 A Interval History: Confused and inappropriate at times. Very weak. Tolerating diet. No cp, cough, n/v, f/c. Case and plan discussed with patient. All questions answered. Adult diet Regular; Low Sodium (2 gm) 24HR INTAKE/OUTPUT: Intake/Output Summary (Last 24 hours) at 08/15/2023 1343 Last data filed at 08/15/2023 0845 Gross per 24 hour Intake 1510 ml Output -- Net 1510 ml 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 COPD (chronic obstructive pulmonary disease) (HCC) Elevated blood pressure Essential (primary) hypertension 07/08/2017 Hyperlipidemia Indigestion Insomnia Prediabetes Umbilical hernia LABS: CBC: Recent Labs 08/14/23 0325 08/15/23 0231 WBC 4.1 4.0 RBC 2.96* 3.17* HGB 9.4* 10.2* HCT 29.1* 31.2* MCV 98.4* 98.3* RDW 17.9* 17.7* PLT 179 194 BMP: Recent Labs 08/14/23 0325 08/15/23 0231 NA 130* 132* K 3.9 4.6 CL 103 104 CO2 21* 22 BUN 37* 31* CREATININE 1.16 1.23 GLUCOSE 76 75 CALCIUM 8.0* 8.2* ANIONGAP 6 5 LIVER PROFILE: Recent Labs 08/14/23 0325 08/15/23 0231 AST 82* 61* ALT 94* 76* BILITOT 0.5 0.5 ALKPHOS 151* 132* PROT 5.3* 5.4* PT/INR: No results for input(s): PROTIME, INR in the last 72 hours. CARDIAC ENZYMES: No results for input(s): TROPONINI in the last 72 hours. Procalcitonin: No results found for: PROCAL COVID-19 PCR: No results for input(s): COVID19 in the last 72 hours. Objective: Vitals: BP 113/81 Pulse 59 Temp 36.8 C (98.3 F) (Temporal) Resp 17 Ht 5' 9 (1.753 m) Wt 171 lb (77.6 kg) SpO2 96% BMI 25.25 kg/m Pulse Ox: SpO2 Av.3 % Min: 96 % Max: 98 % Supplemental O2: Physical Exam Vitals and nursing note reviewed. Constitutional: Appearance: He is not toxic-appearing. HENT: Head: Normocephalic. Mouth/Throat: Pharynx: Oropharynx is clear. Eyes: Extraocular Movements: Extraocular movements intact. Conjunctiva/sclera: Conjunctivae normal. Cardiovascular: Rate and Rhythm: Bradycardia present. Rhythm irregular. Pulses: Normal pulses. Pulmonary: Effort: Pulmonary effort is normal. Comments: Coarse breath sounds bilaterally Abdominal: General: Bowel sounds are normal. Palpations: Abdomen is soft. Tenderness: There is no abdominal tenderness. There is no guarding. Musculoskeletal: Cervical back: Neck supple. Right lower leg: No edema. Left lower leg: No edema. Skin: General: Skin is dry. Capillary Refill: Capillary refill takes less than 2 seconds. Neurological: General: No focal deficit present. Mental Status: He is alert. He is disoriented. Psychiatric: Mood and Affect: Mood normal. Medications: apixaban, 5 mg, Oral, BID cholecalciferol, 1,000 Units, Oral, Daily folic acid, 1 mg, Oral, Daily insulin lispro, 0-6 Units, SubCUTAneous, TID WC And insulin lispro, 0-6 Units, SubCUTAneous, Nightly LORazepam, 1 mg, Oral, q8h losartan, 50 mg, Oral, Daily metoprolol tartrate, 100 mg, Oral, BID mometasone-formoterol, 2 puff, Inhalation, BID nicotine, 1 patch, TransDERmal, Daily Followed by [START ON 09/22/2023] nicotine, 1 patch, TransDERmal, Daily Followed by [START ON 10/06/2023] nicotine, 1 patch, TransDERmal, Daily thiamine (Vitamin B1) 250 mg in sodium chloride 0.9 % 100 mL IVPB, 250 mg, IntraVENous, q12h Assessment # New onset Afib with RVR # HFrEF # MARKOS, improving # Transaminitis # Hyperglycemia with hba1c 4.6% # Macrocytic anemia # Hx of EtOH abuse # HTN # Hyperlipidemia # COPD # Hx of tonsilar Cancer # Anxiety # ADHD Plan Continue to monitor on telemetry, continue apixaban, CIWA and prn ativan, Cardiology and ADM following, follow up labs, I/Os and daily weights, SSI, POCT, PT/OT, discharge planning, see orders. - am labs, replace lytes prn - PT/OT/CM/SW - delirium precautions: increase activity - DVT prophylaxis: encourage ambulation and already anticoagulated Advance Directive: Full Code Anticipated Discharge - Date - 08/16-08/18 - Location - SNF - Pending the following - clinical improvement, completion of work up and when Ok with consultants Total time spent (which include face to face and non face to face encounters) : 47 minutes Toxic drug monitoring/narrow therapeutic index drug monitoring : # Drug name : apixaban and SS insulin # Route administered : subcutaneous and SQ # Method of monitoring : daily CBC and ac/hs blood glucose/daily BMP Extended Emergency Contact Information Primary Emergency Contact: Dewayne Waldrop Relation: Child TALISHA PATRICIA MD Division of Hospitalist Medicine [facility] * Belén Edwards MD - 08/15/2023 10:[address] [facility] Cardiology /Electrophysiology Progress Note HPI / Interval History: No significant change. Patient denies shortness of breath. He is sleepy but arousable. Assessment/Plan HF NYHA Class [] I [] II [] III [] IV Atrial fibrillation: Patient is currently anticoagulated, heart rate is controlled, he is anticoagulated. No additional testing or medication changes are recommended. As outlined in previous notes patient is not a good candidate for cardioversion due to documented noncompliance with medications. HFrEF: Acute heart failure, likely due to combined causes, atrial fibrillation and alcohol consumption. Currently patient is warm and dry. At this point cardiology will sign off as I do not expect any significant changes. Please do not hesitate to reconsult if questions arise. Medications: apixaban, 5 mg, Oral, BID cholecalciferol, 1,000 Units, Oral, Daily folic acid, 1 mg, Oral, Daily insulin lispro, 0-6 Units, SubCUTAneous, TID WC And insulin lispro, 0-6 Units, SubCUTAneous, Nightly LORazepam, 1 mg, Oral, q8h losartan, 50 mg, Oral, Daily metoprolol tartrate, 100 mg, Oral, BID mometasone-formoterol, 2 puff, Inhalation, BID nicotine, 1 patch, TransDERmal, Daily Followed by [START ON 09/22/2023] nicotine, 1 patch, TransDERmal, Daily Followed by [START ON 10/06/2023] nicotine, 1 patch, TransDERmal, Daily thiamine (Vitamin B1) 250 mg in sodium chloride 0.9 % 100 mL IVPB, 250 mg, IntraVENous, q12h Infusion Medications: Physical Examination: Vitals: 08/14/23 2306 08/15/23 0349 08/15/23 0640 08/15/23 0719 BP: 107/75 107/77 113/81 BP Location: Left arm Right arm Patient Position: Lying Lying Pulse: 105 110 59 Resp: 16 16 17 Temp: 36.4 C (97.6 F) 36.8 C (98.3 F) 36.8 C (98.3 F) TempSrc: Temporal Temporal Temporal SpO2: 98% 98% 96% Weight: 171 lb (77.6 kg) Height: Intake/Output Summary (Last 24 hours) at 08/15/2023 1015 Last data filed at 08/15/2023 0845 Gross per 24 hour Intake 1930 ml Output -- Net 1930 ml Wt Readings from Last 3 Encounters: 08/15/23 171 lb (77.6 kg) 10/11/22 177 lb 8 oz (80.5 kg) 12/28/21 185 lb 1.6 oz (84 kg) Physical Exam Vitals reviewed. Constitutional: Appearance: Normal appearance. He is normal weight. HENT: Head: Normocephalic and atraumatic. Right Ear: External ear normal. Left Ear: External ear normal. Nose: Nose normal. Eyes: Extraocular Movements: Extraocular movements intact. Conjunctiva/sclera: Conjunctivae normal. Neck: Vascular: No carotid bruit. Cardiovascular: Rate and Rhythm: Normal rate. Rhythm irregularly irregular. Heart sounds: No murmur heard. No gallop. Pulmonary: Effort: Pulmonary effort is normal. Breath sounds: No wheezing or rales. Abdominal: General: Bowel sounds are normal. Palpations: Abdomen is soft. Musculoskeletal: General: No swelling. Normal range of motion. Cervical back: Neck supple. Right lower leg: No edema. Left lower leg: No edema. Skin: General: Skin is warm and dry. Neurological: General: No focal deficit present. Mental Status: He is lethargic. Comments: Slurred speech. Sleepy but arousable Psychiatric: Mood and Affect: Mood normal. Behavior: Behavior normal. Laboratory Tests: Recent Labs 08/14/23 0325 08/15/23 0231 NA 130* 132* K 3.9 4.6 CL 103 104 CO2 21* 22 BUN 37* 31* CREATININE 1.16 1.23 Recent Labs 08/14/23 0325 08/15/23 0231 WBC 4.1 4.0 HGB 9.4* 10.2* HCT 29.1* 31.2* MCV 98.4* 98.3* PLT 179 194 No results for input(s): CKTOTAL, CKMB, CKMBINDEX, TROPONINI in the last 72 hours. No results for input(s): BNP in the last 72 hours. No results for input(s): TRIG, HDL, LDLCALC, CHOL in the last 72 hours. No results found for: LDLCHOLESTER Lab Results Component Value Date TSH 3.236 08/11/2023 EF BP Date Value Ref Range Status 08/12/2023 26 (A) 55 - 100 % Final 08/11/23 TRANSTHORACIC ECHOCARDIOGRAM (TTE) COMPLETE (CONTRAST/BUBBLE/3D PRN) 08/12/2023 11:52 AM (Final) Interpretation Summary Left Ventricle: Left ventricle is mildly dilated. Normal wall thickness. Severely reduced left ventricular systolic function. EF by 2D Simpsons Biplane is 26%. Severe global hypokinesis present. Right Ventricle: Right ventricle is mildly dilated. Moderately reduced systolic function. Aortic Valve: Mild (1+) regurgitation. Mitral Valve: Moderate (2+) regurgitation. Left Atrium: Left atrium is severely dilated. Right Atrium: Right atrium is severely dilated. Pericardium: Small (<1 cm) pericardial effusion present. Features indicating an absence of cardiac tamponade are present. Evidence includes no chamber collapse. IVC/SVC: IVC diameter is dilated and decreases less than 50% during inspiration; therefore the estimated right atrial pressure is elevated (~15 mmHg). Signed by: Bianca Coy MD on 08/12/2023 11:52 AM Other reports reviewed: Cardiac Tests: ECG: Atrial fibrillation Tracing reviewed. Telemetry findings reviewed: N/A EF BP Date Value Ref Range Status 08/12/2023 26 (A) 55 - 100 % Final Belén Edwards MD Date Of Service 08/15/2023 * Viraj Redding, PT - 08/14/2023 12:45 PM EST Images from the original note were not included. PHYSICAL THERAPY [facility] Initial Evaluation Name/MRN: Messi Waldrop ([id number]) Evaluation Date: 08/14/2023 Date of : 1955 Admission Date: 08/11/2023 10:32 AM Age: 68 y.o. Room/Bed: [facility] A Discharge Recommendation: [facility] Facility Other: TBD at discharge location Assessment IMPRESSION: Pt admitted 08/11 with A-fib, SOB. He has h/o ETOH use and was recently released from snf to a rehab center. Unclear of pt baseline, he is unable to provide history. He demo bed mobility mod A, transfer to FWW mod x2 and minimal ambulation EOB with mod x1-mod x2 with FWW. He is limited by cognition and very poor safety awareness. He is at increased falls risk and unsafe to return home, rec SNF Diagnosis: A-fib; ETOH use Prognosis: fair Performance Deficits /Impairments: Decreased Functional Mobility, Decreased Strength, Decreased Safety Awareness, Decreased Cognition, Decreased Endurance, and Decreased Balance Decision Making: Medium Complexity Subjective Per RN pt okay for therapy, is pleasantly confused and agree to PT with encouragement Pain: Pt denies any current pain. 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 COPD (chronic obstructive pulmonary disease) ([facility]) Elevated blood pressure Essential (primary) hypertension 07/08/2017 Hyperlipidemia Indigestion Insomnia Prediabetes Umbilical hernia Past Surgical History: Past Surgical History: Procedure Laterality Date COLONOSCOPY DENTAL SURGERY EYE SURGERY Bilateral cataract surgery LARYNGOSCOPY 03/04/2020 fine needle aspiration biopsy right neck mass and right base of tounge biopsy - dr kenya PATINO TONSILLECTOMY (HISTORICAL) Right 03/04/2020 dr steiner Admission Diagnosis: Patient Active Problem List Diagnosis Date Noted Elevated brain natriuretic peptide (BNP) level 08/11/2023 Shortness of breath 08/11/2023 Atrial fibrillation with RVR ([facility]) 08/11/2023 Acute kidney injury ([facility]) 08/11/2023 Transaminitis 08/11/2023 Concussion with loss of consciousness 01/28/2023 ETOH abuse 01/28/2023 Forehead laceration, initial encounter 01/28/2023 Current moderate episode of major depressive disorder without prior episode ([facility]) 10/12/2022 Chronic renal disease, stage III (HCC) 12/28/2021 Anemia 12/28/2021 Chronic alcohol abuse 10/27/2021 Chemotherapy-induced neutropenia (CMS/HCC) (HCC) (HCC) 10/26/2021 Malignant neoplasm of tonsil (HCC) 03/23/2020 Morbidly obese ([facility]) 12/24/2019 Benign prostatic hyperplasia with urinary obstruction 05/12/2017 Chronic pain of right knee 03/27/2017 Chronic obstructive pulmonary disease (HCC) 03/27/2017 Hyperglycemia 03/27/2017 Nocturia 10/19/2016 Frequency of urination 10/19/2016 Medical Precautions: No active isolations Proper PPE donned/doffed in accordance with facility standards. Fall Risk: Castro Fall Risk Score: 65 (High Risk) Precautions/Restrictions: N/A Family/Caregiver Present: none Overall Cognitive Status: Exceptions - Following commands: follows one step commands with increased time and follows one step commands with repetition - Attention span: attends with cues to redirect - Memory: decreased short term memory - Safety judgement: decreased awareness of need for assistance and decreased awareness of need for safety - Problem solving: assistance required to generate solutions, assistance required to implement solutions, assistance required to identify errors made, assistance required to correct errors made, and decreased awareness of errors - Insights: decreased awareness of deficits - Initiation: requires cues for all - Sequencing: requires cues for all Overall Orientation Status: Disoriented x4 (states his name, unable to correctly state birthday) Vision: not assessed this session Hearing: normal Social/Functional History Pt unable to provide any history or PLOF Objective Lower Extremity Assessment AROM: WFL PROM: Not assessed this session Strength: WFL Bed Mobility: Supine to sit: Mod Assist, Pt denies dizziness. He demo supine to sit with mod A to manage BLE and trunk. Once seated is min-mod x1 for statuc sit. He return to supine with SBA and cuesfor sequencing Sit to supine: SBA Transfers Sit to stand: Mod Assist, x2 Person Assist, Pt complete transfer to FWW with mod x2. Therapist cuespt for hand and foot placement and upright trunk. He stands ~1 min with mod x1-mod x2. He demo pooreccentric control to sit Stand to sit: Mod Assist, x2 Person Assist Ambulation Ambulation 1 Assistive device(s) used: front wheeled walker Assist level: Mod Assist, x2 Person Assist, Pt takes a few steps EOB with mod x1-2 with FWW. He demo short shuffling gait with decreased krunal and step length. He demo BLE buckling, high falls risk Distance (ft): ~3 ft Quality of gait: shuffling, slow krunal, instability through all phases Outcome Measures AM-PAC How much HELP from another person do you currently need Turning from your back to your side while in a flat bed without using bedrails?: A Little Moving from lying on your back to sitting on the side of a flat bed without using bedrails?: A Lot Moving to and from a bed to a chair (including a wheelchair)?: A Lot Standing up from a chair using your arms (wheelchair or bedside chair)?: A Lot Walking in a hospital room?: Total Stair climbing assessed?: No AM-PAC Inpatient Mobility Raw Score (No Stairs) : 10 [facility] Score: Static standing (1 or more minutes) Plan Pt would benefit from skilled acute PT services to address Strengthening, Balance Training, Functional Mobility Training, Endurance Training, Gait Training, Cognitive Reorientation, Pain Management, Safety Education and Training, Patient/Caregiver Training, and Equipment Evaluation/Education. Frequency: 5 visits during current hospital admission or until additional recommendations are made Barriers: Confusion Safety/Education Safety Safety Devices in place: All fall risk precautions in place, call light within reach, left in bed, gait belt, patient at risk for falls, nurse notified, and helicopter mechanic present Restraints: No Education Education Given To: patient Education Provided: PT Role, PT Goals, Gait Training, Plan of Care, Precautions, Transfer Training,Energy Conservation, Orientation, Equipment, Fall Prevention Education, Discharge Recommendations, and Benefits of Increasing Activity Education Method: Verbal and Demonstration Barriers to Learning: Cognition Education Outcome: Continued Education Needed Goals Patient Stated Goal: Patient unable to participate in goal setting at this time. Encounter Problems Encounter Problems (Active) Balance Patient will maintain dynamic standing balance for 4 minutes with CGA in order to demonstrate decreased risk of falling. Start: 08/14/23 Expected End: 08/21/23 Exercise Patient will complete lower extremity exercises for 1-2 sets / 5-10 reps in order to improve strength and activity tolerance for mobility. Start: 08/14/23 Expected End: 08/21/23 Mobility Patient will ambulate 25 feet with CGA and rolling walker in order to improve safety and independence with mobility. Start: 08/14/23 Expected End: 08/21/23 Transfers Patient will perform bed mobility with SBA in order to improve independence and prepare for out of bed mobility. Start: 08/14/23 Expected End: 08/21/23 Patient will complete sit to stand transfer with CGA to rolling walker in order to improve safety and prepare for out of bed mobility. Start: 08/14/23 Expected End: 08/21/23 Therapy Time Individual Co-treatment Time In 1004 (co-eval with OT) Time Out 1015 Minutes 11 Viraj Redding PT Patient's Physical Therapy Plan of Care supervision is transferred to a [facility] Physical Therapist. Goals and/or treatment plan was established in collaboration with patient/family/other representatives. * Ajith Wong MD - 08/14/2023 12:14 PM EST Chief complaint Chief Complaint Patient presents with Shortness of Breath Seen for follow up of substance dependence and use and to monitor withdrawals S: Patient seen and examined. The patient seemed very comfortable in bed he wakes up when I call his name but he is still confused with answers The patient does not remember talking with me at all yesterday REVIEW OF SYMPTOMS: Unable to obtain due to the patient current mental status O: Vitals: 08/14/23 0955 BP: 105/73 Pulse: 69 Resp: 16 Temp: 37.1 C (98.8 F) SpO2: 97% Patient seen and examined. Alert but not oriented The patient does not remember talking with me at all yesterday Recent Results (from the past 24 hour(s)) POCT glucose meter Collection Time: 08/13/23 4:14 PM Result Value Ref Range Glucose 89 70 - 100 mg/dL POCT glucose meter Collection Time: 08/13/23 7:15 PM Result Value Ref Range Glucose 166 (H) 70 - 100 mg/dL CBC auto differential Collection Time: 08/14/23 3:25 AM Result Value Ref Range Auto WBC 4.1 3.6 - 10.7 10*3/uL RBC 2.96 (L) 4.40 - 5.90 10*6/uL Hemoglobin 9.4 (L) 13.0 - 18.0 g/dL Hematocrit 29.1 (L) 40.0 - 52.0 % MCV 98.4 (H) 80.0 - 98.0 fL MCH 31.8 26.0 - 34.0 pg MCHC 32.3 32.0 - 36.0 % RDW 17.9 (H) 11.5 - 14.5 % Platelets 179 140 - 440 10*3/uL MPV 8.8 7.4 - 12.4 fL nRBC 0.1 0.0 - 2.0 /100 WBCs Neutrophils Relative 67.2 40.0 - 80.0 % Lymphocytes Relative 12.1 (L) 20.0 - 40.0 % Monocytes Relative 18.0 (H) 2.0 - 10.0 % Eosinophils Relative 2.1 1.0 - 6.0 % Basophils Relative 0.6 0.0 - 2.0 % Neutrophils Absolute 2.8 1.8 - 7.0 10*3/uL Lymphocytes Absolute 0.5 (L) 1.0 - 4.3 10*3/uL Monocytes Absolute 0.7 0.0 - 0.8 10*3/uL Eosinophils Absolute 0.1 0.0 - 0.5 10*3/uL Basophils Absolute 0.0 0.0 - 0.2 10*3/uL Comprehensive metabolic panel Collection Time: 08/14/23 3:25 AM Result Value Ref Range SODIUM 130 (L) 135 - 145 mmol/L POTASSIUM 3.9 3.5 - 5.1 mmol/L CHLORIDE 103 98 - 107 mmol/L CARBON DIOXIDE 21 (L) 22 - 30 mmol/L ANION GAP 6 3 - 13 mmol/L UREA NITROGEN 37 (H) 9 - 20 mg/dL CREATININE 1.16 0.66 - 1.25 mg/dL GLUCOSE 76 70 - 100 mg/dL CALCIUM 8.0 (L) 8.4 - 10.4 mg/dL AST (SGOT) 82 (H) 15 - 46 U/L ALT 94 (H) 0 - 49 U/L ALKALINE PHOSPHATASE 151 (H) 38 - 126 U/L ALBUMIN 2.8 (L) 3.5 - 5.0 g/dL BILIRUBIN, TOTAL 0.5 0.2 - 1.3 mg/dL TOTAL PROTEIN 5.3 (L) 6.3 - 8.2 g/dL eGFR 69.0 >60.0 mL/min/1.73m*2 POCT glucose meter Collection Time: 08/14/23 6:51 AM Result Value Ref Range Glucose 89 70 - 100 mg/dL POCT glucose meter Collection Time: 08/14/23 8:04 AM Result Value Ref Range Glucose 84 70 - 100 mg/dL POCT glucose meter Collection Time: 08/14/23 11:15 AM Result Value Ref Range Glucose 159 (H) 70 - 100 mg/dL Assessment/Plan: 1. Alcohol use disorder severe with withdrawals Day # at least 3 days of no use Ciwa q 6 hours Thiamine and folate supplement daily detoxified with ativan and prn medications for symptomology. This dose will be tapered according to clinical signs and symptoms. Patient is not stable Estimate will need 3-4 extra days of detox The patient will be discharged when stable with an active plan of recovery. 2- suspected wernicke encephalpathy He was started on thiamine protocol yesterday The patient seemed more sedated and confused today Still not stable AJITH WONG MD, MD Addiction Medicine 08/14/2023 at 12:14 PM * Patty Nogueira, OT - 08/14/2023 10:50 AM EST Images from the original note were not included. OCCUPATIONAL THERAPY [facility] Initial Evaluation Name/MRN: Messi Waldrop ([id number]) Evaluation Date: 08/14/2023 Date of : 1955 Admission Date: 08/11/2023 10:32 AM Age: 68 y.o. Room/Bed: B2257/[facility]257 A Discharge Recommendation: [facility] Facility Assessment IMPRESSION: Pt admitted with SOB, found to have afib with RVR, MARKOS and HFrEF. Prior to admission, pt was independent in ADLs, functional transfers and mobility with no device. Pt now requires min-maxA for ADLs, and mod A x1-2 for functional transfers and mobility at [facility]. Pt is limited by impaired balance and endurance. Pt should benefit from skilled OT services in order to increase safety and independence in occupational participation. Performance Deficits /Impairments: Decreased Functional Mobility, Decreased ADL status, Decreased Strength, Decreased Safety Awareness, Decreased Cognition, Decreased Endurance, Decreased Balance, and Decreased High Level IADLs Prognosis: Guarded Decision Making: Medium Complexity Subjective Pt pleasantly confused. Per RN, ok for pt to participate in OT eval. Co-eval with PT. No lines present. Pain: Pt denies any current pain. 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 COPD (chronic obstructive pulmonary disease) ([facility]) Elevated blood pressure Essential (primary) hypertension 07/08/2017 Hyperlipidemia Indigestion Insomnia Prediabetes Umbilical hernia Past Surgical History: Past Surgical History: Procedure Laterality Date COLONOSCOPY DENTAL SURGERY EYE SURGERY Bilateral cataract surgery LARYNGOSCOPY 03/04/2020 fine needle aspiration biopsy right neck mass and right base of tounge biopsy - dr kenya PATINO TONSILLECTOMY (HISTORICAL) Right 03/04/2020 dr steiner Admission Diagnosis: Patient Active Problem List Diagnosis Date Noted Elevated brain natriuretic peptide (BNP) level 08/11/2023 Shortness of breath 08/11/2023 Atrial fibrillation with RVR ([facility]) 08/11/2023 Acute kidney injury ([facility]) 08/11/2023 Transaminitis 08/11/2023 Concussion with loss of consciousness 01/28/2023 ETOH abuse 01/28/2023 Forehead laceration, initial encounter 01/28/2023 Current moderate episode of major depressive disorder without prior episode ([facility]) 10/12/2022 Chronic renal disease, stage III ([facility]) 12/28/2021 Anemia 12/28/2021 Chronic alcohol abuse 10/27/2021 Chemotherapy-induced neutropenia ([facility]) ([facility]) ([facility]) 10/26/2021 Malignant neoplasm of tonsil ([facility]) 03/23/2020 Morbidly obese ([facility]) 12/24/2019 Benign prostatic hyperplasia with urinary obstruction 05/12/2017 Chronic pain of right knee 03/27/2017 Chronic obstructive pulmonary disease ([facility]) 03/27/2017 Hyperglycemia 03/27/2017 Nocturia 10/19/2016 Frequency of urination 10/19/2016 Medical Precautions: No active isolations Proper PPE donned/doffed in accordance with facility standards. Fall Risk: Castro Fall Risk Score: 65 (High Risk) Precautions/Restrictions: N/A Family/Caregiver Present: none Overall Cognitive Status: Exceptions - Arousal/alertness: appropriate responses to stimuli and delayed responses to stimuli - Following commands: follows one step commands with increased time and follows one step commands with repetition - Attention span: attends with cues to redirect - Memory: decreased recall of recent events and decreased short term memory - Safety judgement: decreased awareness of need for assistance and decreased awareness of need for safety - Problem solving: assistance required to generate solutions, assistance required to implement solutions, assistance required to identify errors made, assistance required to correct errors made, and decreased awareness of errors - Insights: decreased awareness of deficits - Initiation: requires cues for some - Sequencing: requires cues for all Overall Orientation Status: Oriented to name, however, reports birthdate is [birth year]. Social/Functional History Unable to determine d/t confusion, however, pt independent in ADLs, transfers and mobility. Prior Level of Function ADL Assistance: Independent Ambulation Assistance: Independent Transfer Assistance: Independent Objective ADLs UE Dressing: Min Assist, Pt required min A to don gown in regards to sleeve management d/t impairedcognition. Upper Extremity Assessment AROM: WFL PROM: WFL Strength: Exceptions: generally decreased, functional Vision: no visual deficits Hearing: normal Bed Mobility Supine to sit: Mod Assist, to elevate trunk Sit to supine: SBA Scooting: SBA HOB elevated with use of bed features and increased time to complete. Pt required VC for initiationand sequencing of bed mobility. Denied dizziness with changes in positioning. Pt required min-mod Afor sitting balance d/t L lateral lean. Transfers/Functional Mobility Sit to stand: Mod Assist, x1-2 Stand to sit: Mod Assist, x1-2 Functional mobility: Mod Assist, x1-2 Pt completed STS to/from EOB with fww with mod A x1-2 to complete. Pt with BUE on fww in order to faciliate forward weight shift. Pt completed lateral steps with mod A 1-2 d/t significant/frequent BLE buckling. Device(s) used: front wheeled walker AM-PAC AM-PAC Inpatient Daily Activity Raw Score: 16 ADL Inpatient CMS G-Code Modifier: CK Plan Pt would benefit from skilled acute OT services to address Strengthening, Balance Training, Functional Mobility Training, Endurance Training, Cognitive Reorientation, Safety Education and Training, Patient/Caregiver Training, Equipment Evaluation/Education, Positioning, Self-Care/ADL Training, and C ognitive/Perceptual Training. Frequency: 7 visits during current hospital admission or until additional recommendations are made Barriers: Confusion, Cognitive deficit, Decreased endurance, Upper extremity weakness, and Lower extremity weakness Prognosis: guarded Safety/Education Safety Safety Devices in place: All fall risk precautions in place, call light within reach, left in bed, gait belt, patient at risk for falls, nurse notified, no alarms engaged upon entry, and helicopter mechanic present Restraints: No Education Education Given To: patient Education Provided: OT Role, Plan of Care, Transfer Training, Orientation, and Benefits of Increasing Activity Education Method: Verbal Barriers to Learning: Cognition Education Outcome: Continued Education Needed Goals Patient Stated Goal: Patient unable to participate in goal setting at this time. Encounter Problems Encounter Problems (Active) Balance Patient will tolerate standing for 2 minutes with SBA at fww to allow increased independence in occupational participation. Start: 08/14/23 Expected End: 08/28/23 Patient will maintain static standing balance for 8 minutes with modified independence in order to demonstrate decreased risk of falling. Start: 08/14/23 Expected End: 08/28/23 Dressing Upper Extremities Patient will complete upper body ADLs with mod I. Start: 08/14/23 Expected End: 08/28/23 Dressings Lower Extremities Patient will complete lower body ADLs with SBA. Start: 08/14/23 Expected End: 08/28/23 Mobility Patient will demonstrate functional ambulation SBA with fww. Start: 08/14/23 Expected End: 08/28/23 Toileting Patient will complete toileting tasks at standard toilet with SBA. Start: 08/14/23 Expected End: 08/28/23 Transfers Patient will complete functional transfer with rolling walker with SBA in order to prepare for ambulation. Start: 08/14/23 Expected End: 08/28/23 Patient will perform bed mobility with modified independence in order to improve independence and prepare for out of bed mobility. Start: 08/14/23 Expected End: 08/28/23 Therapy Time Individual Co-treatment Time In 1004 Time Out 1015 Minutes 11 Ptaty Nogueira OT Patient's Occupational Therapy Plan of Care supervision is transferred to a [facility] Occupational Therapist. Goals and/or treatment plan was established in collaboration with patient/family/other representatives. * Talisha Patricia MD - 08/14/2023 10:30 AM EST Images from the original note were not included. Hospitalist Progress Note 08/14/2023 Subjective: Admit Date: 08/11/2023 PCP: John Springer MD Room#: B2-257/B2-257 A Interval History: Somnolent. Tolerating diet. No cp, cough, n/v, f/c. Case and plan discussed with patient. All questions answered. Adult diet Regular; Low Sodium (2 gm) 24HR INTAKE/OUTPUT: Intake/Output Summary (Last 24 hours) at 08/14/2023 1030 Last data filed at 08/14/2023 0504 Gross per 24 hour Intake 440 ml Output -- Net 440 ml 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 COPD (chronic obstructive pulmonary disease) (HCC) Elevated blood pressure Essential (primary) hypertension 07/08/2017 Hyperlipidemia Indigestion Insomnia Prediabetes Umbilical hernia LABS: CBC: Recent Labs 08/11/23 1141 08/14/23 0325 WBC 5.3 4.1 RBC 3.70* 2.96* HGB 11.9* 9.4* HCT 37.1* 29.1* MCV 100.1* 98.4* RDW 18.9* 17.9* PLT 223 179 BMP: Recent Labs 08/11/23 1141 08/12/23 0419 08/14/23 0325 NA 134* 134* 130* K 4.4 3.9 3.9 CL 98 103 103 CO2 23 23 21* BUN 61* 52* 37* CREATININE 1.83* 1.44* 1.16 GLUCOSE 164* 101* 76 CALCIUM 9.0 8.2* 8.0* ANIONGAP 13 9 6 LIVER PROFILE: Recent Labs 08/11/23 1141 08/12/23 0419 08/14/23 0325 AST 297* 212* 82* ALT 148* 143* 94* BILITOT 0.7 0.5 0.5 ALKPHOS 204* 196* 151* PROT 6.9 5.6* 5.3* PT/INR: No results for input(s): PROTIME, INR in the last 72 hours. CARDIAC ENZYMES: Recent Labs 08/11/23 1141 08/11/23 1539 08/12/23 0419 TROPONINI 0.020 0.036* 0.025 Procalcitonin: No results found for: PROCAL COVID-19 PCR: No results for input(s): COVID19 in the last 72 hours. Objective: Vitals: BP 105/73 (BP Location: Right arm, Patient Position: Sitting) Pulse 69 Temp 37.1 C (98.8 F) (Temporal) Resp 16 Ht 5' 9 (1.753 m) Wt 176 lb (79.8 kg) SpO2 97% BMI 25.99 kg/m Pulse Ox: SpO2 Av % Min: 96 % Max: 98 % Supplemental O2: Physical Exam Vitals and nursing note reviewed. Constitutional: Appearance: He is not toxic-appearing. HENT: Head: Normocephalic. Mouth/Throat: Pharynx: Oropharynx is clear. Eyes: Extraocular Movements: Extraocular movements intact. Conjunctiva/sclera: Conjunctivae normal. Cardiovascular: Rate and Rhythm: Normal rate. Rhythm irregular. Pulses: Normal pulses. Pulmonary: Effort: Pulmonary effort is normal. Comments: Coarse breath sounds bilaterally Abdominal: General: Bowel sounds are normal. Palpations: Abdomen is soft. Tenderness: There is no abdominal tenderness. There is no guarding. Musculoskeletal: Cervical back: Neck supple. Right lower leg: No edema. Left lower leg: No edema. Skin: General: Skin is dry. Capillary Refill: Capillary refill takes less than 2 seconds. Neurological: General: No focal deficit present. Mental Status: He is alert. Mental status is at baseline. Psychiatric: Mood and Affect: Mood normal. Medications: apixaban, 5 mg, Oral, BID cholecalciferol, 1,000 Units, Oral, Daily folic acid, 1 mg, Oral, Daily insulin lispro, 0-6 Units, SubCUTAneous, TID WC And insulin lispro, 0-6 Units, SubCUTAneous, Nightly LORazepam, 2 mg, Oral, q8h Followed by [START ON 08/15/2023] LORazepam, 1 mg, Oral, q8h losartan, 50 mg, Oral, Daily metoprolol tartrate, 100 mg, Oral, BID mometasone-formoterol, 2 puff, Inhalation, BID nicotine, 1 patch, TransDERmal, Daily Followed by [START ON 09/22/2023] nicotine, 1 patch, TransDERmal, Daily Followed by [START ON 10/06/2023] nicotine, 1 patch, TransDERmal, Daily thiamine (Vitamin B1) 500 mg in sodium chloride 0.9 % 100 mL IVPB, 500 mg, IntraVENous, q8h Followed by [START ON 08/15/2023] thiamine (Vitamin B1) 250 mg in sodium chloride 0.9 % 100 mL IVPB, 250 mg, IntraVENous, q12h Assessment # New onset Afib with RVR # HFrEF # MARKOS, improving # Transaminitis # Hyperglycemia with hba1c 4.6% # Macrocytic anemia # Hx of EtOH abuse # HTN # Hyperlipidemia # COPD # Hx of tonsilar Cancer # Anxiety # ADHD Plan Continue to monitor on telemetry, apixaban, CIWA and prn ativan, Cardiology and ADM following, follow up labs, I/Os and daily weights, SSI, POCT, PT/OT, discharge planning, see orders. - am labs, replace lytes prn - PT/OT/CM/SW - delirium precautions: increase activity - DVT prophylaxis: encourage ambulation and already anticoagulated Advance Directive: Full Code Anticipated Discharge - Date - 08/15-08/16 - Location [place] [facility] - Pending the following - clinical improvement, completion of work up and when Ok with consultants Total time spent (which include face to face and non face to face encounters) : 46 minutes Toxic drug monitoring/narrow therapeutic index drug monitoring : # Drug name : apixaban and SS insulin # Route administered : subcutaneous and SQ # Method of monitoring : daily CBC and ac/hs blood glucose/daily BMP Extended Emergency Contact Information Primary Emergency Contact: Dewayne Waldrop Relation: Child TALISHA PATRICIA MD Division of Hospitalist Medicine [facility] * Otfrgeovanni Edwards MD - 08/14/2023 9:[address] [facility] [place] [facility] [place] Cardiology /Electrophysiology Progress Note HPI / Interval History: No significant change, patient is sleepy but arousable. He appears to be heavily sedated, did not give any sensible answers. Assessment/Plan HF NYHA Class [] I [] II [] III [] IV Acute HFrEF: Likely cause tachycardia class alcohol. On exam the patient is warm and dry. No apparent distress. Due to relatively low blood pressure I will not change dose of losartan. Atrial fibrillation: Still relatively tachycardic. I will increase metoprolol to 100 mg twice dailyfor heart rate control. If tolerated I may switch to metoprolol succinate. Alcohol dependency: Patient is currently heavily sedated for withdrawal prevention. Medications: apixaban, 5 mg, Oral, BID cholecalciferol, 1,000 Units, Oral, Daily folic acid, 1 mg, Oral, Daily insulin lispro, 0-6 Units, SubCUTAneous, TID WC And insulin lispro, 0-6 Units, SubCUTAneous, Nightly LORazepam, 2 mg, Oral, q8h Followed by [START ON 08/15/2023] LORazepam, 1 mg, Oral, q8h losartan, 50 mg, Oral, Daily metoprolol tartrate, 50 mg, Oral, BID mometasone-formoterol, 2 puff, Inhalation, BID nicotine, 1 patch, TransDERmal, Daily Followed by [START ON 09/22/2023] nicotine, 1 patch, TransDERmal, Daily Followed by [START ON 10/06/2023] nicotine, 1 patch, TransDERmal, Daily thiamine (Vitamin B1) 500 mg in sodium chloride 0.9 % 100 mL IVPB, 500 mg, IntraVENous, q8h Followed by [START ON 08/15/2023] thiamine (Vitamin B1) 250 mg in sodium chloride 0.9 % 100 mL IVPB, 250 mg, IntraVENous, q12h Infusion Medications: Physical Examination: Vitals: 08/13/23 1938 08/13/23 2343 08/14/23 0428 08/14/23 0536 BP: 100/66 104/71 108/66 BP Location: Right arm Right arm Right arm Patient Position: Lying Lying Lying Pulse: (!) 138 93 104 Resp: 18 18 18 Temp: 37.2 C (99 F) 37.1 C (98.8 F) 36.6 C (97.9 F) TempSrc: Temporal Temporal Temporal SpO2: 97% 97% 97% Weight: 176 lb (79.8 kg) Height: Intake/Output Summary (Last 24 hours) at 08/14/2023 0913 Last data filed at 08/14/2023 0504 Gross per 24 hour Intake 440 ml Output -- Net 440 ml Wt Readings from Last 3 Encounters: 08/14/23 176 lb (79.8 kg) 10/11/22 177 lb 8 oz (80.5 kg) 12/28/21 185 lb 1.6 oz (84 kg) Physical Exam Vitals reviewed. Constitutional: Appearance: Normal appearance. He is normal weight. HENT: Head: Normocephalic and atraumatic. Right Ear: External ear normal. Left Ear: External ear normal. Nose: Nose normal. Eyes: Extraocular Movements: Extraocular movements intact. Conjunctiva/sclera: Conjunctivae normal. Neck: Vascular: No carotid bruit. Cardiovascular: Rate and Rhythm: Normal rate. Rhythm irregularly irregular. Heart sounds: No murmur heard. No gallop. Pulmonary: Effort: Pulmonary effort is normal. Breath sounds: Examination of the right-lower field reveals rales. Examination of the left-lower field reveals rales. Rales present. No wheezing. Abdominal: General: Bowel sounds are normal. Palpations: Abdomen is soft. Musculoskeletal: General: No swelling. Normal range of motion. Cervical back: Neck supple. Right lower leg: No edema. Left lower leg: No edema. Skin: General: Skin is warm and dry. Neurological: General: No focal deficit present. Mental Status: He is lethargic. Comments: Slurred speech. Sleepy but arousable Psychiatric: Mood and Affect: Mood normal. Behavior: Behavior normal. Laboratory Tests: Recent Labs 08/11/23 1141 08/12/23 0419 08/14/23 0325 NA 134* 134* 130* K 4.4 3.9 3.9 CL 98 103 103 CO2 23 23 21* BUN 61* 52* 37* CREATININE 1.83* 1.44* 1.16 Recent Labs 08/11/23 1141 08/14/23 0325 WBC 5.3 4.1 HGB 11.9* 9.4* HCT 37.1* 29.1* MCV 100.1* 98.4* PLT 223 179 Recent Labs 08/11/23 1141 08/11/23 1539 08/12/23 0419 TROPONINI 0.020 0.036* 0.025 Recent Labs 08/11/23 1141 BNP 35,500* No results for input(s): TRIG, HDL, LDLCALC, CHOL in the last 72 hours. No results found for: LDLCHOLESTER Lab Results Component Value Date TSH 3.236 08/11/2023 EF BP Date Value Ref Range Status 08/12/2023 26 (A) 55 - 100 % Final 01/13/24 TRANSTHORACIC ECHOCARDIOGRAM (TTE) COMPLETE (CONTRAST/BUBBLE/3D PRN) 08/12/2023 11:52 AM (Final) Interpretation Summary Left Ventricle: Left ventricle is mildly dilated. Normal wall thickness. Severely reduced left ventricular systolic function. EF by 2D Simpsons Biplane is 26%. Severe global hypokinesis present. Right Ventricle: Right ventricle is mildly dilated. Moderately reduced systolic function. Aortic Valve: Mild (1+) regurgitation. Mitral Valve: Moderate (2+) regurgitation. Left Atrium: Left atrium is severely dilated. Right Atrium: Right atrium is severely dilated. Pericardium: Small (<1 cm) pericardial effusion present. Features indicating an absence of cardiac tamponade are present. Evidence includes no chamber collapse. IVC/SVC: IVC diameter is dilated and decreases less than 50% during inspiration; therefore the estimated right atrial pressure is elevated (~15 mmHg). Signed by: Bianca Coy MD on 08/12/2023 11:52 AM Other reports reviewed: Cardiac Tests: ECG: Atrial fibrillation Tracing reviewed. Telemetry findings reviewed: N/A EF BP Date Value Ref Range Status 08/12/2023 26 (A) 55 - 100 % Final Belén Edwards MD Date Of Service 08/14/2023 * Belén Edwards MD - 08/13/2023 9:22 AM EST [facility] Cardiology /Electrophysiology Progress Note HPI / Interval History: Patient feels significantly improved, less short of breath. He had a good diuretic response to furosemide. Denies chest pain. Assessment/Plan HF NYHA Class [] I [] II [] III [] IV Acute systolic heart failure: Likely tachycardia mediated in the setting of atrial fibrillation with rapid response confounded by alcohol dependency. I slowly will titrate the patient on GDMT. Today I will add losartan 50 mg daily. Over the long-term I prefer to change metoprolol to tartrate to metoprolol succinate. Atrial fibrillation: Duration unknown, likely persistent. Currently anticoagulated with apixaban. As outlined in the initial cardiology consult note the patient is not a good candidate for cardioversion as he is unreliable regarding medication compliance. Alcohol dependency. Patient has a longstanding history of alcoholism. Currently he is sedated and has a sitter due to concerns about being at increased risk for withdrawal. Cardiology will continue to follow along. Medications: apixaban, 5 mg, Oral, BID cholecalciferol, 1,000 Units, Oral, Daily folic acid, 1 mg, Oral, Daily insulin lispro, 0-6 Units, SubCUTAneous, TID WC And insulin lispro, 0-6 Units, SubCUTAneous, Nightly ipratropium-albuterol, 3 mL, Nebulization, TID losartan, 50 mg, Oral, Daily metoprolol tartrate, 50 mg, Oral, BID mometasone-formoterol, 2 puff, Inhalation, BID nicotine, 1 patch, TransDERmal, Daily Followed by [START ON 09/22/2023] nicotine, 1 patch, TransDERmal, Daily Followed by [START ON 10/06/2023] nicotine, 1 patch, TransDERmal, Daily thiamine, 100 mg, Oral, Daily Infusion Medications: Physical Examination: Vitals: 08/13/23 0147 08/13/23 0256 08/13/23 0708 08/13/23 0802 BP: 115/75 115/83 132/68 BP Location: Right arm Right arm Patient Position: Lying Lying Pulse: (!) 124 72 70 Resp: 18 20 Temp: 36.4 C (97.6 F) 36.3 C (97.4 F) TempSrc: Temporal Temporal SpO2: 96% 98% Weight: 175 lb 8 oz (79.6 kg) Height: Intake/Output Summary (Last 24 hours) at 08/13/2023 0922 Last data filed at 08/12/20231999 Gross per 24 hour Intake 240 ml Output -- Net 240 ml Wt Readings from Last 3 Encounters: 08/13/23 175 lb 8 oz (79.6 kg) 10/11/22 177 lb 8 oz (80.5 kg) 12/28/21 185 lb 1.6 oz (84 kg) Physical Exam Vitals reviewed. Constitutional: Appearance: Normal appearance. He is normal weight. HENT: Head: Normocephalic and atraumatic. Right Ear: External ear normal. Left Ear: External ear normal. Nose: Nose normal. Eyes: Extraocular Movements: Extraocular movements intact. Conjunctiva/sclera: Conjunctivae normal. Neck: Vascular: No carotid bruit. Cardiovascular: Rate and Rhythm: Normal rate. Rhythm irregularly irregular. Heart sounds: No murmur heard. No gallop. Pulmonary: Effort: Pulmonary effort is normal. Breath sounds: Examination of the right-lower field reveals rales. Examination of the left-lower field reveals rales. Rales present. No wheezing. Abdominal: General: Bowel sounds are normal. Palpations: Abdomen is soft. Musculoskeletal: General: No swelling. Normal range of motion. Cervical back: Neck supple. Right lower leg: No edema. Left lower leg: No edema. Skin: General: Skin is warm and dry. Neurological: General: No focal deficit present. Mental Status: He is oriented to person, place, and time. He is lethargic. Comments: Slurred speech Psychiatric: Mood and Affect: Mood normal. Behavior: Behavior normal. Laboratory Tests: Recent Labs 08/11/23 1141 08/12/23 0419 NA 134* 134* K 4.4 3.9 CL 98 103 CO2 23 23 BUN 61* 52* CREATININE 1.83* 1.44* Recent Labs 08/11/23 1141 WBC 5.3 HGB 11.9* HCT 37.1* MCV 100.1* PLT 223 Recent Labs 08/11/23 1141 08/11/23 1539 08/12/23 0419 TROPONINI 0.020 0.036* 0.025 Recent Labs 08/11/23 1141 BNP 35,500* No results for input(s): TRIG, HDL, LDLCALC, CHOL in the last 72 hours. No results found for: LDLCHOLESTER Lab Results Component Value Date TSH 3.236 08/11/2023 EF BP Date Value Ref Range Status 08/12/2023 26 (A) 55 - 100 % Final 08/11/23 TRANSTHORACIC ECHOCARDIOGRAM (TTE) COMPLETE (CONTRAST/BUBBLE/3D PRN) 08/12/2023 11:52 AM (Final) Interpretation Summary Left Ventricle: Left ventricle is mildly dilated. Normal wall thickness. Severely reduced left ventricular systolic function. EF by 2D Simpsons Biplane is 26%. Severe global hypokinesis present. Right Ventricle: Right ventricle is mildly dilated. Moderately reduced systolic function. Aortic Valve: Mild (1+) regurgitation. Mitral Valve: Moderate (2+) regurgitation. Left Atrium: Left atrium is severely dilated. Right Atrium: Right atrium is severely dilated. Pericardium: Small (<1 cm) pericardial effusion present. Features indicating an absence of cardiac tamponade are present. Evidence includes no chamber collapse. IVC/SVC: IVC diameter is dilated and decreases less than 50% during inspiration; therefore the estimated right atrial pressure is elevated (~15 mmHg). Signed by: Bianca Coy MD on 08/12/2023 11:52 AM Other reports reviewed: Cardiac Tests: ECG: Atrial fibrillation atrial fibrillation Tracing reviewed. Telemetry findings reviewed: Atrial fibrillation EF BP Date Value Ref Range Status 08/12/2023 26 (A) 55 - 100 % Final Otgrzegorz Edwards MD Date Of Service 08/13/2023 * Talisha Patricia MD - 08/13/2023 9:02 AM EST Images from the original note were not included. Hospitalist Progress Note 08/13/2023 Subjective: Admit Date: 08/11/2023 PCP: John Springer MD Room#: B2-257/B2-257 A Interval History: Still fairly weak. Some SOB but better. No cp, cough, n/v, f/c, Tolerating diet. Case and plan discussed with patient and ADM separately. All questions answered. Adult diet Regular; Low Sodium (2 gm) 24HR INTAKE/OUTPUT: Intake/Output Summary (Last 24 hours) at 08/13/2023 0903 Last data filed at 08/12/20231999 Gross per 24 hour Intake 240 ml Output -- Net 240 ml 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 COPD (chronic obstructive pulmonary disease) (HCC) Elevated blood pressure Essential (primary) hypertension 07/08/2017 Hyperlipidemia Indigestion Insomnia Prediabetes Umbilical hernia LABS: CBC: Recent Labs 08/11/23 1141 WBC 5.3 RBC 3.70* HGB 11.9* HCT 37.1* MCV 100.1* RDW 18.9* PLT 223 BMP: Recent Labs 08/11/23 1141 08/12/23 0419 NA 134* 134* K 4.4 3.9 CL 98 103 CO2 23 23 BUN 61* 52* CREATININE 1.83* 1.44* GLUCOSE 164* 101* CALCIUM 9.0 8.2* ANIONGAP 13 9 LIVER PROFILE: Recent Labs 08/11/23 1141 08/12/23 0419 AST 297* 212* ALT 148* 143* BILITOT 0.7 0.5 ALKPHOS 204* 196* PROT 6.9 5.6* PT/INR: No results for input(s): PROTIME, INR in the last 72 hours. CARDIAC ENZYMES: Recent Labs 08/11/23 1141 08/11/23 1539 08/12/23 0419 TROPONINI 0.020 0.036* 0.025 Procalcitonin: No results found for: PROCAL COVID-19 PCR: No results for input(s): COVID19 in the last 72 hours. Objective: Vitals: BP 132/68 Pulse 70 Temp 36.3 C (97.4 F) (Temporal) Resp 20 Ht 5' 9 (1.753 m) Wt 175 lb 8 oz (79.6 kg) SpO2 98% BMI 25.92 kg/m Pulse Ox: SpO2 Av.3 % Min: 93 % Max: 100 % Supplemental O2: Physical Exam Vitals and nursing note reviewed. Constitutional: General: He is not in acute distress. Appearance: He is ill-appearing. HENT: Head: Normocephalic and atraumatic. Mouth/Throat: Mouth: Mucous membranes are dry. Eyes: Extraocular Movements: Extraocular movements intact. Pupils: Pupils are equal, round, and reactive to light. Cardiovascular: Rate and Rhythm: Normal rate. Rhythm irregular. Pulses: Normal pulses. Pulmonary: Effort: Pulmonary effort is normal. Comments: Coarse breath sounds bilaterally Abdominal: General: Bowel sounds are normal. There is no distension. Palpations: Abdomen is soft. Tenderness: There is no abdominal tenderness. There is no rebound. Musculoskeletal: General: Normal range of motion. Cervical back: Normal range of motion and neck supple. Right lower leg: No edema. Left lower leg: No edema. Skin: General: Skin is warm and dry. Capillary Refill: Capillary refill takes less than 2 seconds. Neurological: General: No focal deficit present. Mental Status: He is alert. Mental status is at baseline. Psychiatric: Mood and Affect: Mood normal. Medications: apixaban, 5 mg, Oral, BID cholecalciferol, 1,000 Units, Oral, Daily folic acid, 1 mg, Oral, Daily insulin lispro, 0-6 Units, SubCUTAneous, TID WC And insulin lispro, 0-6 Units, SubCUTAneous, Nightly ipratropium-albuterol, 3 mL, Nebulization, TID metoprolol tartrate, 50 mg, Oral, BID mometasone-formoterol, 2 puff, Inhalation, BID nicotine, 1 patch, TransDERmal, Daily Followed by [START ON 09/22/2023] nicotine, 1 patch, TransDERmal, Daily Followed by [START ON 10/06/2023] nicotine, 1 patch, TransDERmal, Daily thiamine, 100 mg, Oral, Daily Assessment # New onset Afib with RVR # HFrEF # MARKOS, improving # Transaminitis # Hyperglycemia with hba1c 4.6% # Macrocytic anemia # Hx of EtOH abuse # HTN # Hyperlipidemia # COPD # Hx of tonsilar Cancer # Anxiety # ADHD Plan Continue to monitor on telemetry, apixaban, CIWA and prn ativan, Cardiology and ADM following, follow up labs, I/Os and daily weights, SSI, POCT, PT/OT, discharge planning, see orders. - am labs, replace lytes prn - PT/OT/CM/SW - delirium precautions: increase activity - DVT prophylaxis: encourage ambulation and already anticoagulated Advance Directive: Full Code Anticipated Discharge - Date - 08/14-08/16 - Location - [place] - Pending the following - clinical improvement, completion of work up and when Ok with consultants Total time spent (which include face to face and non face to face encounters) : 47 minutes Toxic drug monitoring/narrow therapeutic index drug monitoring : # Drug name : apixaban and SS insulin # Route administered : subcutaneous and SQ # Method of monitoring : daily CBC and ac/hs blood glucose/daily BMP Extended Emergency Contact Information Primary Emergency Contact: Dewayne Waldrop Relation: Child TALISHA PATRICIA MD Division of Hospitalist Medicine [facility] * Kierra Prado RD - 08/12/2023 3:34 PM EST Nutrition Assessment Type and Reason for Visit: Initial, Consult (poor PO) Nutrition Recommendations/Plan: Continue with Adult diet Regular; Low Sodium (2 gm). Monitor for s/s of swallowing/chewing deficits. None currently reported. Pt has hx of Tonsillar ca and has poor dentition. Sitter has been ordering meals for the patient. Pt is doing well with meals at current. Consuming 100% of meals so far per sitter. Please document pt's PO intakes via flowsheet to accurately assess PO intake adequacy. ETOH hx- on Thiamine/Folate supplementation. Also on Vitamin D3. Will monitor need for additional ONS and initiate as indicated. Monitor intakes, weights, and labs weekly. RD will follow. 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 Reportedly not a candidate for cardioversion due to pt's non compliance to meds. RD visited this afternoon with sitter at bedside. Pt was pleasant, but seemed a little confused and unable to provide much meaningful history. Pt voiced feeling confused like he's going around in circles. Sitter at bedside stated that the pt ate 100% of his breakfast and lunch today. Denies any swallowing deficits observed. PT with hx of Right Tonsillar cancer and is edentulous on the bottom with missing teeth on top. Pt has hx of ETOH use- last drink was reportedly around 3 weeks ago. Wt history reviewed and no weight loss is evident. Estimated Daily Nutrient Needs: Energy Requirements Based On: Kcal/kg Weight Used for Energy Requirements: Current Weight for Energy Calculation (kg): 79 kg Total Energy Requirements (kcals/day): 8020-1291 kcals (25-30 kcals/kg) Weight Used for Protein Requirements: Current Weight in Kg Used for Protein Requirements: 79 kg Estimated Total Protein (g/day): 79-95 (1-1.2g/kg) Estimated Daily Total Fluid (ml/day): 9234-8817 ml/day or per MD Nutrition Related Findings: no edema; Na 134, BUN 52, Cr 1.44, GFR 53.3, Glucose 101, 164, ca++ 8.2, Alk Phos 196, Nt pro BNP 35,500, Ethanol neg, +for Kwasi, Mag 2.3, Ammonia <9, Hgb A1c 4.6% Wound Type: None Current Nutrition Therapies: Adult diet Regular; Low Sodium (2 gm) Current Oral Intake Average Meal Intake: 76-100% (per sitter) Average Supplements Intake: None Ordered Anthropometric Measures: Height: 175.3 cm (5' 9) Current Body Weight: 78.9 kg (174 lb) Weight Source: Standing Scale Admission Body Weight: 78.9 kg (174 lb) (standing scale) Usual Body Weight: 80.3 kg (177 lb) (10/11/22) % Weight Change (Calculated): -1.7 Ina Body Weight (lbs) (Calculated): 160 lbs Ina Body Weight (Kg) (Calculated): 73 kg % Ina Body Weight (Calculated): 108.8 % BMI (kg/m2) (Calculated): 25.7 Weight Adjustment For: No Adjustment BMI Categories: Overweight (BMI 25.0-29.9) Nutrition Diagnosis: Altered nutrition-related lab values related to cardiac dysfunction as evidenced by lab values, other (comment) (NT pro BNP) Nutrition Interventions: Nutrition Education/Counseling: No recommendation at this time Coordination of Nutrition Care: Continue to monitor while inpatient Plan of Care discussed with: Pt, sitter Goals: Goals: PO intake 75% or greater, by next RD assessment, other (specify) Specify Other Goals: Labs will trend towards baseline Nutrition Monitoring and Evaluation: Behavioral-Environmental Outcomes: Readiness for Change Food/Nutrient Intake Outcomes: Diet Advancement/Tolerance, Food and Nutrient Intake Physical Signs/Symptoms Outcomes: Biochemical Data, Chewing or Swallowing, GI Status, Fluid Status or Edema, Nutrition Focused Physical Findings, Skin, Weight Discharge Planning: Continue current diet Kierra Prado RD Contact: *[phone] or via Secure Chat * Gilson Ley MD - 08/12/2023 2:28 PM EST Images from the original note were not included. Hospitalist Progress Note 08/12/2023 Subjective: Admit Date: 08/11/2023 PCP: John Springer MD Room#: B2-252/B2-252 A Interval History: No overnight issues. Sitter present at bedside. Patient laying in bed, sleeping, easily awakened but not very interactive and stating I'm not fully awake yet. Unable to obtain much history from patient. Patient denies pain, and is agreeable for IV placement. Case and plan discussed with patient and bedside nurse. Questions answered. Adult diet Regular; Low Sodium (2 gm) 24HR INTAKE/OUTPUT: Intake/Output Summary (Last 24 hours) at 08/12/2023 1428 Last data filed at 08/12/2023 1231 Gross per 24 hour Intake 250 ml Output 300 ml Net -50 ml 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 COPD (chronic obstructive pulmonary disease) (HCC) Elevated blood pressure Essential (primary) hypertension 07/08/2017 Hyperlipidemia Indigestion Insomnia Prediabetes Umbilical hernia LABS: CBC: Recent Labs 08/11/23 1141 WBC 5.3 RBC 3.70* HGB 11.9* HCT 37.1* MCV 100.1* RDW 18.9* PLT 223 BMP: Recent Labs 08/11/23 1141 08/12/23 0419 NA 134* 134* K 4.4 3.9 CL 98 103 CO2 23 23 BUN 61* 52* CREATININE 1.83* 1.44* GLUCOSE 164* 101* CALCIUM 9.0 8.2* ANIONGAP 13 9 LIVER PROFILE: Recent Labs 08/11/23 1141 08/12/23 0419 AST 297* 212* ALT 148* 143* BILITOT 0.7 0.5 ALKPHOS 204* 196* PROT 6.9 5.6* PT/INR: No results for input(s): PROTIME, INR in the last 72 hours. CARDIAC ENZYMES: Recent Labs 08/11/23 1141 08/11/23 1539 08/12/23 0419 TROPONINI 0.020 0.036* 0.025 Procalcitonin: No results found for: PROCAL COVID-19 PCR: No results for input(s): COVID19 in the last 72 hours. Objective: Vitals: BP 91/59 Pulse 85 Temp 36.5 C (97.7 F) (Temporal) Resp 16 Ht 5' 9 (1.753 m) Wt 174 lb (78.9 kg) SpO2 93% BMI 25.70 kg/m Pulse Ox: SpO2 Av.5 % Min: 90 % Max: 99 % Supplemental O2: Physical Exam Constitutional: General: He is not in acute distress. Appearance: He is ill-appearing. He is not toxic-appearing. Cardiovascular: Rate and Rhythm: Normal rate. Rhythm irregular. Pulmonary: Effort: Pulmonary effort is normal. No respiratory distress. Abdominal: General: Bowel sounds are normal. Palpations: Abdomen is soft. Tenderness: There is no abdominal tenderness. Skin: General: Skin is warm and dry. Findings: Bruising present. Neurological: Mental Status: He is alert. Psychiatric: Attention and Perception: He is inattentive. Mood and Affect: Affect is inappropriate. Behavior: Behavior is uncooperative. Judgment: Judgment is impulsive and inappropriate. Medications: apixaban, 5 mg, Oral, BID cholecalciferol, 1,000 Units, Oral, Daily folic acid, 1 mg, Oral, Daily furosemide, 40 mg, IntraVENous, Once insulin lispro, 0-6 Units, SubCUTAneous, TID WC And insulin lispro, 0-6 Units, SubCUTAneous, Nightly ipratropium-albuterol, 3 mL, Nebulization, TID metoprolol tartrate, 25 mg, Oral, BID mometasone-formoterol, 2 puff, Inhalation, BID nicotine, 1 patch, TransDERmal, Daily Followed by [START ON 09/22/2023] nicotine, 1 patch, TransDERmal, Daily Followed by [START ON 10/06/2023] nicotine, 1 patch, TransDERmal, Daily thiamine, 100 mg, Oral, Daily Assessment Acute, acute on chronic, unstable/uncontrolled chronic problems/diagnoses: # New onset Afib with RVR - improved/rate controlled # HFrEF - BNP 35.5k (no prior). Troponin negative. TTE (08/12): LVEF 26% with severe global hypokinesis, moderately reduced RV systolic function # MARKOS, improving # Transaminitis # Hyperglycemia - no hx of DM. A1c 4.6% (08/11/23). # Macrocytic anemia # Hx of EtOH abuse - states he drinks a lot with last drink ~3-5 weeks ago. Thiamine/folic acid # Tobacco use - nicotine patch Stable chronic problems affecting care, new non-acute diagnoses: # HTN - BP stable # HLD # COPD # Hx of tonsilar Cancer # Anxiety # ADHD Plan As a result of the above findings & factors, the following mgmt was pursued: - Received x1 IV lasix 40 mg on 08/11. Started on IVF, which have now been stopped given TTE findings and concern for volume overload. - TTE (08/12): LVEF 26% with severe global hypokinesis, moderately reduced RV systolic function - Cardiology following. Ordered repeat IV Lasix 40 mg. Discontinued Cardizem in the setting of low EF. Added PO metoprolol tartrate 25 mg BID for rate control. Stated patient is NOT a good candidate for SEVERO/cardioversion as his compliance with medication will be a challenge and he will need uninterrupted eliquis post cardioversion for at least 4 weeks - Continue Eliquis - Discussed placing IV and patient agreeable now - SSI, BG checks, hypoglycemia protocol - Psych consulted for behavioral concerns - am labs, replace lytes prn - PT/OT/CM/SW - delirium precautions: increase activity and limit nighttime disturbances - DVT prophylaxis: already anticoagulated Advance Directive: Full Code Anticipated Discharge - Date - TBD - Location - TBD - Pending the following - clinical course, sap bw consultant recs Extended Emergency Contact Information Primary Emergency Contact: Dewayne Waldrop Relation: Child Gilson Ley MD Division of Hospitalist Medicine Acute care [facility] * Tayler Jarvis RN - 08/11/2023 6:51 PM EST Pt received into 252 A; Cardizem drip rate verified, vitals obtained, tele applied, pt oriented to room, bed alarm on. documented in this [facility]01-24-2024 Hospital course Narrative* Adam Guzman MD - 08/22/2023 10:27 AM EST Discharge Summary Messi Max November : 1955 ADMIT DATE: 08/11/2023 DISCHARGE DATE: 08/22/2023 PRIMARY CARE PHYSICIAN: John Springer VISIT STATUS: Admission CODE STATUS: Full Code DISCHARGE DIAGNOSES: Principal Problem: Atrial fibrillation with RVR (HCC) Active Problems: Elevated brain natriuretic peptide (BNP) level Shortness of breath Acute kidney injury (HCC) Transaminitis New onset atrial fibrillation, rate controlled, on anticoagulation - cardiology consulted- follow up as an outpatient. HFrEF-EF 26%- cardiology consulted, compensated at present , follow up as as outpatient Acute kidney injury- improved. 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 Major depression History of ethanol abuse with transaminitis and macrocytic anemia- improved liver function, stable anemia History of tonsillar cancer Chronic anxiety disorder History of ADHD HOSPITAL COURSE: Details as above. Admitted with afib with RVR. ECHO with EF 26%. Cardiology consulted- rate controlled. Started on anticoagulation. Would follow up with cardiology as an outpatient. Has confusion, oriented to self only , with chronic alcohol use. Consulted geriatrics, neurology and psychiatry. 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 Started on vitamin supplement. Poor neuro prognosis. DC to SNF in stable condition. SIGNIFICANT DIAGNOSTIC STUDIES: CT head: Findings: There is mild brain atrophy with prominent cortical sulci, fissures, and ventricles. There is also cavum septum pellucidum. There are bilateral periventricular and subcortical hypodensitiessuggesting chronic ischemic white matter changes. There is no intracranial hemorrhage, mass effect,or midline shift in the brain. The exam is limited without IV contrast enhancement. There are carotid siphons and vertebral artery calcifications. There is probably small right frontal scalp swelling. There is mild maxillary sinuses mucosal thickening. The bilateral mastoid air cells are clear. Impression: Mild brain atrophy and chronic ischemic white matter changes. No evidence of acute intracranial process. ECHO: Left Ventricle: Left ventricle is mildly dilated. Normal wall thickness. Severely reduced left ventricular systolic function. EF by 2D Simpsons Biplane is 26%. Severe global hypokinesis present. Right Ventricle: Right ventricle is mildly dilated. Moderately reduced systolic function. Aortic Valve: Mild (1+) regurgitation. Mitral Valve: Moderate (2+) regurgitation. Left Atrium: Left atrium is severely dilated. Right Atrium: Right atrium is severely dilated. Pericardium: Small (<1 cm) pericardial effusion present. Features indicating an absence of cardiac tamponade are present. Evidence includes no chamber collapse. IVC/SVC: IVC diameter is dilated and decreases less than 50% during inspiration; therefore the estimated right atrial pressure is elevated (~15 mmHg). CONSULTANTS: Cardiology, addiction medicine, psychiatry, neurology RECOMMENDED NEXT STEPS: Follow up with cardiology as an outpatient CBC, CMP in 3 days Exam: BP (!) 138/103 (BP Location: Right arm, Patient Position: Lying) Pulse 88 Temp 36.5 C (97.7 F) (Temporal) Resp 16 Ht 5' 9 (1.753 m) Wt 177 lb 6.1 oz (80.5 kg) SpO2 95% BMI 26.19 kg/m Sitting comfortably on bed. Alert to self only. Chest : b/l equal air entry, no added sound CVS: s1, s2, mo PA; soft, NT, BS+ Ext; trace edema Neuro; aler to slef, no focal lateralizing signs DISCHARGE MEDICATIONS: Medication List START taking these medications apixaban 5 MG tablet Commonly known as: Eliquis Take 1 tablet (5 mg) by mouth 2 times daily. cyanocobalamin 500 MCG tablet Commonly known as: Vitamin B-12 Take 1 tablet (500 mcg) by mouth daily. folic acid 400 MCG tablet Commonly known as: Folvite Take 1 tablet (0.4 mg) by mouth daily. losartan 50 MG tablet Commonly known as: Cozaar Take 1 tablet (50 mg) by mouth daily. metoprolol tartrate 100 MG tablet Commonly known as: Lopressor Take 1 tablet (100 mg) by mouth 2 times daily. pyridoxine 25 MG tablet Commonly known as: Vitamin B-6 Take 1 tablet (25 mg) by mouth daily. thiamine 100 MG tablet Commonly known as: Vitamin B-1 Take 1 tablet (100 mg) by mouth 2 times daily. CONTINUE taking these medications albuterol 108 (90 Base) MCG/ACT inhaler budesonide-formoterol 160-4.5 MCG/ACT inhaler Commonly known as: Symbicort calcium carbonate 1250 (500 Ca) MG chewable tablet Commonly known as: Os-Altagracia cholecalciferol 25 MCG (1000 UT) tablet Commonly known as: Vitamin D-3 MULTIPLE VITAMINS-MINERALS ER PO STOP taking these medications COD LIVER OIL PO fish oil-omega-3 fatty acids 1000 MG capsule GLUCOSAMINE CHOND COMPLEX/MSM PO Ibuprofen-diphenhydrAMINE Cit 200-38 MG tablet per tablet naproxen 250 MG tablet Commonly known as: Naprosyn ondansetron 8 MG tablet Commonly known as: Zofran PROBIOTIC PRODUCT PO prochlorperazine 10 MG tablet Commonly known as: Compazine Red Yeast Rice Extract 600 MG capsule sertraline 50 MG tablet Commonly known as: Zoloft Where to Get Your Medications These medications were sent to [facility] [address] [facility], [facility] [address] Hours: Sunday to Sunday 10 am to 6 pm apixaban 5 MG tablet cyanocobalamin 500 MCG tablet folic acid 400 MCG tablet losartan 50 MG tablet metoprolol tartrate 100 MG tablet pyridoxine 25 MG tablet thiamine 100 MG tablet DIET: Adult diet Regular; Low Sodium (2 gm) ACTIVITY: No restriction. COMPLEXITY OF FOLLOW UP: [x] Moderate Complexity: follow up within 7-14 calendar days (74146) [] Severe Complexity: follow up within 7 calendar days (91553) FOLLOW UP TESTING, PENDING RESULTS OR REFERRALS AT TRANSITIONAL CARE VISIT: [x] Yes [] No PENDING STUDIES: DISPOSITION: Skilled Facility FACILITY/HOME CARE AGENCY NAME: Follow up with Benton Varela MD [address] [facility] [address] Go on 08/28/2023 cardiology follow-up at 8:30am on INSTRUCTIONS TO MA/SW: Please call patient on day after discharge (must document patient contacted within 2 business days of discharge). FOLLOW UP QUESTIONS FOR MA/SW: 1. Did you get medications filled and taking them as instructed from discharge? 2. Are you following your discharge instructions from your hospital stay? 3. Please confirm patient is scheduled for a follow up appointment within the above time frame. DISCHARGE TIME: 40 min SIGNED: Adam Guzman MD 08/22/2023, 10:27 AM documented in this [facility]01-24-2024 Nurse Note* Isabella Wolf RN - 08/22/2023 6:45 AM EST He declined blood draw by the gang ripsaw operator and he said he doesn't need any blood draw from him. He was left comfortable and calm in bed * Isabella Wolf RN - 08/21/2023 10:00 PM EST Patient was very agitated removing his clothes and walking aimlessly along the hallway. He was not violent but swinging with his bed rail and that posed as high risk of fall and injury redirected thepatent to stop doing that gave him Ativan 2 mg and calmed him down after cleaning him up changing his beddings and gown and he was left sound asleep. * Hernán Martinez RN - 08/20/2023 4:18 PM EST PT. Refusing labs at this time will attempt again at a later time * Isabella Wolf RN - 08/20/2023 5:50 AM EST Patient declined The second blood draw only managed the green top but he declined the purple top * Michael Norwood RN - 08/18/2023 4:21 PM EST Pt is refusing to wear traffic monitor specialist. I explained the need for monitoring and pt has declined at this time. * Isabella Wolf RN - 08/17/2023 1:00 AM EST Patient removing IV peripheral Access. Tried fixing he became more violent saying he will kick us with his feet. Called Rapid response for iv access insertion and he was also violent and he wouldn't allow any IV fixation. [facility] RN suggested to reach out to the [facility] doctor rn bone marrow transplant to change all IV medications to P.O. documented in this [facility]01-23-2024 Consult note* Mateo Forte MD - 08/21/2023 8:00 PM ESTAssociated Order(s): IP CONSULT TO NEUROLOGY Images from the original note were not included. NEUROLOGY INITIAL CONSULTATION DATE: Sunday08-21-23 PATIENT's NAME: EMSSI WALDROP DATE OF : [birth year] AGE: 68 GENDER: Male ROOM: [facility]/A PHYSICIAN REQUESTING CONSULT: Dr. Guzman NEUROLOGIST: Zulay Garcia MD DATE OF ADMISSION: 08-11-23 REASON FOR NEUROLOGY CONSULTATION: 'Korsakoff psychosis' HISTORY OF PRESENT ILLNESS ED HISTORY OF PRESENT ILLINESS Messi Waldrop is a 68-year-old man who was admitted through the Emergency Department at [facility] on 08-11-23 with complaints of chest pain/palpitations for 2 weeks, and a productive cough with shortness of breath wheezing and lethargy. Messi Waldrop is not able to give me a neurologic history due to his severe cognitive impairment. RECORD REVIEW Mr. Waldrop is a 68-year-old man from an Extended [facility], he [facility] before, admitted [facility] for increasing shortness of breath, atrial fibrillation with RVR and who is currently treated her with Lopressor and Eliquis. He also has chronic ethanol abuse, who was not in withdrawal at the timeof his admission but exhibited behavioral signs of memory loss, difficulty walking, and exhibiting inappropriate behavior towards the staff. Mr. Waldrop also has history of major depression and was treated with Zoloft with poor compliance. He now presents with memory impairment, behavioral changes, poor comprehension and shortness of breath. He was currently treated with Thiamine, now 200 mg daily. His cognitive impairment remains unchanged. REVIEW OF SYSTEMS GENERAL Change in activity: YES Fatigue: No Fever: No Night sweats: No Weight Gain: No Weight Loss: No SKIN Bruising: No Itching: No Rash: No Wound: No EAR, NOSE, & THROAT Change in voice: No Dental problems: No Difficulty swallowing: No Dizziness: No Ear Pain: No Earache: No Hearing impairment: No Sinus problems: No Tinnitus: No Vertigo/lightheadedness: No EYES Double vision/diplopia: No Oscillopsia: No Eye dryness: No Photophobia: No Visual impairment: No NECK Swelling of neck: No Swelling of neck glands: No ENDOCRINE Diabetes: No Heat/cold intolerance: No Increased thirst: No Increased urination: No Proptosis: No Thyroid disease: No Parathyroid disease: No Pituitary dysfunction: No RESPIRATORY Abnormal chest x-ray: No Wheezing/Asthma: No Cough: No Emphysema/COPD: No Shortness of breath: YES CARDIOVASCULAR Abnormal ECG: No Angina: No Claudication: No Heart attack: No Heart murmur: No Hypertension: YES Irregular heart rhythm/fibrillation: YES Palpitation: No Peripheral edema: No Peripheral vascular disease: No GASTROINTESTINAL Abdominal Pain: No Abdominal bloating: No Anorexia: No Bloody Stool: No Changes in bowel habit: No Constipation: No Decreased appetite: No Diarrhea: No Food intolerance: No Gallbladder disease: No Heartburn: No Irritable bowel: No Nausea/Vomiting: No GENITOURINARY Acute/subacute/chronic kidney injury: No Dysuria: No Hematuria: No Nocturia: No Renal stones: No Urinary incontinence: No Urinary retention: No Urinary urgency: No Urinary tract infection: No MUSCULOSKELETAL Neck pain: No Neck stiffness: No Numbness: No Back pain: No Back stiffness: No Joint pain: No Joint stiffness: No Muscle pain: No Muscle weakness: No Muscle spasm: No Paresthesia/dysesthesia: No PSYCHIATRIC Anxiety: No Behavioral problems: YES Bipolar disorder: No Depression: No Hallucinations: No Irritability: No Sleep disturbance: No Suicidal Ideation: No PTSD: No NEUROLOGIC Balance problems: No Gait problems: No Cognitive/Memory impairment: YES Dementia: No Facial asymmetry: No Fainting spells/ Syncope: No Near-syncope: No Headache/migraine: No Involuntary movement/Tremor: No Seizures: No Speech/language problems: No Stroke: No PAST MEDICAL/SURGERY HISTORY SIGNIFICANT PAST MEDICAL HISTORY ADHD SIGNIFICANT PAST SURGERY HISTORY Dental surgery Bilateral cataract surgery Lasix surgery Tonsillectomy MEDICATION/DRUG/OTC REVIEW NEURO-RELEVANT OUTPATIENT TREATMENT Albuterol inhaler + Symbicort Calcium carbonate 1250 mg + Vitamin D 1000 units + cod liver oil omega-3 1000 mg + multivitamin Ibuprofen-Diphenhydramine 200/38 mg qhs + Glucosamine Chondroitin Zofran 8 mg q8 h Probiotic 3 capsules daily Compazine 10 mg Red yeast rice extract 600 mg Zoloft 50 mg Vitamin E NEURO-RELEVANT INPATIENT TREATMENT Eliquis 5 mg bid Vitamin D 1000 units Folic Acid 1 mg Insulin above (Humalog Losartan 50 mg + Metoprolol 100 mg bid Dulera inhaler NicoDerm patch 21 mg/24 hours Thiamine 200 mg Lorazepam prn Zofran prn DRUG ALLERGIES None known SOCIAL HISTORY Currently smoking: No Current alcohol use: YES Current caffeine use: YES 42 standard drinks of alcohol/week Current non-medication drug use: No RELEVANT FAMILY HISTORY Family history is significant for diabetes RELEVANT NEURODIAGNOSTIC LAB RESULTS ELECTROLYTES: Abnormal Sodium: 133 Total Albumin: 3.2 Total protein: 5.9 RENAL PANEL: Abnormal BUN: 27 GFR: 56.4 DIABETES PANEL: Negative Glucose: 91 HbA1c: 4.6 LIVER PANEL: Negative LIPID PANEL: Not available CBC: Abnormal RBC: 3.47 Hemoglobin: 10.9 Hematocrit: 33.1 ANEMIA PANEL: Not available THYROID PANEL: Negative URINALYSIS: Not available URINE TOXICOLOGY SCREEN: Not available URINE C/S: Not available SARS CoV-2: Not detected Influenza: Not detected CT HEAD No acute intracranial lesion. Mild cerebral atrophy. Chronic ischemic white matter changes. EKG Sinus rhythm (115/min) Atrial fibrillation. Low voltage extremity leads Abnormal T consider ischemia anterolateral leads. TRANSTHORACIC ECHOCARDIOGRAM LEFT ventricular ejection fraction: 26% Left Ventricle: Left ventricle is mildly dilated. Normal wall thickness. Severely reduced left ventricular systolic function. Severe global hypokinesis present. Right Ventricle: Right ventricle is mildly dilated. Moderately reduced systolic function. Aortic Valve: Mild (1+) regurgitation. Mitral Valve: Moderate (2+) regurgitation. Left Atrium: Left atrium is severely dilated. Right Atrium: Right atrium is severely dilated. Pericardium: Small (<1 cm) pericardial effusion present. Features indicating an absence of cardiac tamponade are present. Evidence includes no chamber collapse. IVC/SVC: IVC diameter is dilated and decreases less than 50% during inspiration; therefore the estimated right atrial pressure is elevated (~15 mmHg). ROUTINE EEG/VIDEO I tried on 2 occasions to get Mr. Waldrop to agree to have an EEG. He initially refused to have an EEG. The robot technician informed me, I then spoke with Mr. Waldrop in his room, and he promised me that he wouldcomplete the EEG so that he can leave the hospital tomorrow. When the lidar technician got him up to the EEG to lab he urinated on the floor, and refused to have the test. When the robot technician called for transportation, Mr. Waldrop got off the stretcher and said thathe was going home. He also grabbed the cord to the EEG machine and pulled it out. Fortunately, the lidar technician was not hurt. I went back to his room and spoke to Mr. Waldrop who again said that he would do the test, albeit less convincingly. He repeatedly said he wanted to go home. NEUROLOGICAL EXAMINATION Observation: Lying comfortably in bed, in no acute distress. Appropriately groomed. Language/speech: Speech is mildly dysarthric. Cognitive function: Alert, attentive and oriented to person Memory: Not evaluated Mood affect: Not evaluated Behavior: He was interested in my white coat Uncooperative, slowed, withdrawn, combative, aggressive, agitated, hyperactive. Thought content: Normal When asked how he is doing he said that he was having no pain. He did not know where he was, did not know the date, or month. He indicated that he had family in the area. He wanted to know if I could find his pickup truck. He did not know the color, where he LEFT it. He said that it is in his name, and he had it for a long time. CEREBELLAR FUNCTION Unable to evaluate CRANIAL NERVES II-XII Unable to evaluate NEUROMUSCULAR POWER UPPER: POWER LOWER: Moves all extremities purposefully and spontaneously. 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 COMORBIDITIES/ SECONDARY DIAGNOSIS/HEALTH CONCERNS Hyponatremia Hyperproteinemia Chronic normocytic anemia Atrial fibrillation NEUROLOGY TREATMENT RECOMMENDATION/GOALS NEURO PHARMACOTHERAPY NEURO NON-PHARMACOTHERAPY Adequate nutrition, including vitamin supplementation; unfortunately oral supplements may not be adequately absorbed including Thiamine 100 mg bid Vitamin B12 500 mcg qam, Folic Acid 400 mcg qam, andpyridoxine 25 mg qam. NEURO-PROGNOSIS Poor Mr. Waldrop is neurologically cleared for discharge on 08-22-23 [employer] I spent 80 minutes of this evaluation reviewing all current medical records including all relevant diagnostic tests. I conducted a yvcp-hw-xcel interview, and I performed a focus neurological examination. I also provided discussions via my MDM regarding my current diagnosis, the pathogenesis, the differential diagnosis, the treatment options, & the prognosis. REFERRING PHYSICIAN: I updated the referring physician, & the treatment team with my Medical Decision Making. Please note This report was created using the 5 CUPS and some sugar Speaking voice- activated system. Despiteprompt dictation & careful editorial review, there may be subtle contextual errors in this report, due to misrecognition of the spoken word. The debenvrp-vi-[id number] between the human voice & advanced digital technologies is at times burdened by communicative dissonance. If there are any noticeable errors, discrepancies, or inconsistencies, please do not hesitate to bring these to my attention. Zulay Garcia MD Comprehensive Neurologist [phone] * Evelina Adler DO - 08/20/2023 2:57 PM ESTAssociated Order(s): IP CONSULT TO PSYCHIATRY Department of Psychiatry Consult Service Attending Consult Note Reason for Consult: behavioral concerns with likely underlying mental health issues, hx of EtOH abuse Requesting Physician: Dr. Ley CHIEF COMPLAINT: Chief Complaint Patient presents with Shortness of Breath History obtained from: patient and past medical records HISTORY OF PRESENT ILLNESS: The patient is a 68 y.o. yo male with significant past medical history of EtOH abuse, afib with RVR, HTN, HFrEF, HLD, anxiety, MDD, BPH, ADHD, and COPD, who arrived by self after c/o SOB. Pt was subsequently admitted for A-fib RVR and psychiatry was consulted after pt was noted to be acting unusually and ADM had signed off, having Tx EtOH use D/O severe with withdrawal and wernicke encephalopathy. Pt reports that his mood is fine and reports eating and sleeping well. States he cannot recall taking Zoloft or any other recent mental health tx. Denies auditory/visual hallucinations. Denies suicidal/homicidal ideation. Cannot state where he is and when given a choice between uatsdin, school, or hospital pt states he is in a uatsdin. When advised that he is in a hospital, pt cannot recall why. States the date is the and the month is the and the year is 04. [facility] staff are treating him well and denies any other concerns at this time. Collateral was obtained from the following individual: No REVIEW OF SYSTEMS: Medical Review Of Systems: Constitutional: Negative for anorexia and fatigue Psychiatric Review Of Systems: Depressed mood:Denies Sleep changes:Denies Appetite changes:Denies Suicidal ideation:Denies Homicidal ideation:Denies Access to weapons: Endorses and states he has hidden at a cute place I lived before here. Hallucinations:Denies Delusions:Denies PAST PSYCHIATRIC HISTORY: The patient is not currently receiving care for the above psychiatric illness. Past mental health outpatient care includes: Denies Previous psychiatric hospitalizations: Remotely at [facility] Previous diagnoses: Anxiety, depression Previous suicide attempts:Denies Past psychiatric medications include: Zoloft - Rx in 09/2022, but pt cannot recall ever taking it PAST MEDICAL/SURGICAL HISTORY: Past Medical History: Past Medical History: Diagnosis Date ADHD (attention deficit hyperactivity disorder) Anxiety Cancer ([facility]/HCC) ([facility]) 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 COPD (chronic obstructive pulmonary disease) ([facility]) Elevated blood pressure Essential (primary) hypertension 07/08/2017 Hyperlipidemia Indigestion Insomnia Prediabetes Umbilical hernia Past Surgical History: Past Surgical History: Procedure Laterality Date COLONOSCOPY DENTAL SURGERY EYE SURGERY Bilateral cataract surgery LARYNGOSCOPY 03/04/2020 fine needle aspiration biopsy right neck mass and right base of tounge biopsy - dr kenya PATINO TONSILLECTOMY (HISTORICAL) Right 03/04/2020 dr steiner CURRENT MEDICATIONS/ALLERGIES: Current Facility-Administered Medications Medication Dose Route Frequency Provider Last Rate Last Admin acetaminophen (Tylenol) tablet 650 mg 650 mg Oral q6h PRN LAITH Luevano CNP Or acetaminophen (Tylenol) suppository 650 mg 650 mg Rectal q6h PRN LAITH Luevano CNP albuterol 108 (90 Base) MCG/ACT inhaler 2 puff 2 puff Inhalation q4h PRN LAITH Luevano CNP 2 puff at 08/13/23 0814 apixaban (Eliquis) tablet 5 mg 5 mg Oral BID LAITH Luevano CNP 5 mg at 08/20/23 0821 cholecalciferol (Vitamin D3) tablet 1,000 Units 1,000 Units Oral Daily LAITH Luevano CNP 1,000 Units at 08/20/23 0820 dextrose 50 % solution 12.5 g 12.5 g IntraVENous PRN LAITH Luevano CNP folic acid (Folvite) tablet 1 mg 1 mg Oral Daily Brenden Engel MD 1 mg at 08/20/23 0821 glucagon (human recombinant) injection 1 mg 1 mg IntraMUSCular PRN LAITH Luevano CNP glucose oral gel 15 g 15 g Oral PRN LAITH Luevano CNP Insulin Lispro (Humalog) injection 0-6 Units 0-6 Units SubCUTAneous TID WC LAITH Luevano CNP 1 Units at 08/17/23 1231 And Insulin Lispro (Humalog) injection 0-6 Units 0-6 Units SubCUTAneous Nightly LAITH Luevano 1 Units at 08/13/23 2117 LORazepam (Ativan) tablet 1 mg 1 mg Oral q1h PRN Brenden Engel MD Or LORazepam (Ativan) injection 1 mg 1 mg IntraVENous q1h PRN Brenden Engel MD Or LORazepam (Ativan) tablet 2 mg 2 mg Oral q1h PRN Brenden Engel MD 2 mg at 08/18/232053 Or LORazepam (Ativan) injection 2 mg 2 mg IntraVENous q1h PRN Brenden Engel MD Or LORazepam (Ativan) tablet 3 mg 3 mg Oral q1h PRN Brenden Engel MD Or LORazepam (Ativan) injection 3 mg 3 mg IntraVENous q1h PRN Brenden Engel MD Or LORazepam (Ativan) tablet 4 mg 4 mg Oral q1h PRN Brenden Engel MD 4 mg at 08/18/23 2301 Or LORazepam (Ativan) injection 4 mg 4 mg IntraVENous q1h PRN Brenden Engel MD 4 mg at 08/16/23 2147 losartan (Cozaar) tablet 50 mg 50 mg Oral Daily Otfried Deb Edwards MD 50 mg at 08/20/23 0821 metoprolol tartrate (Lopressor) tablet 100 mg 100 mg Oral BID Otfried Deb Edwards MD 100 mg at 08/20/23 0820 mometasone-formoterol (Dulera 200) 200-5 MCG/ACT inhaler 2 puff 2 puff Inhalation BID LAITH Luevano CNP 2 puff at 08/19/23 2110 nicotine (Nicoderm, Step 1) 21 MG/24HR patch 1 patch 1 patch TransDERmal Daily Brenden Engel MD 1 patch at 08/20/23 0821 Followed by [START ON 09/22/2023] nicotine (Nicoderm, Step 2) 14 MG/24HR patch 1 patch 1 patch TransDERmal DailyBrenden Engel MD Followed by [START ON 10/06/2023] nicotine (Nicoderm, Step 3) 7 MG/24HR patch 1 patch 1 patch TransDERmal Daily Brenden Engel MD ondansetron ODT (Zofran-ODT) disintegrating tablet 4 mg 4 mg Oral q8h PRN LAITH Luevano CNP Or ondansetron (Zofran) injection 4 mg 4 mg IntraVENous q6h PRN LAITH Luevano CNP perflutren protein A microsphere (Optison) 3 mL in sodium chloride (PF) 0.9 % 10 mL IV syringe 0-10mL IntraVENous Once PRN LAITH Luevano CNP polyethylene glycol (PEG) 3350 (Miralax) packet 17 g 17 g Oral Daily PRN LAITH Luevano CNP [START ON 08/21/2023] thiamine (Vitamin B1) tablet 200 mg 200 mg Oral Daily Nichole Stephens MD Allergies: No Known Allergies FAMILY HISTORY: Psychiatric Family History: Denies Family history of suicide: Reports niece by suicide recently, but cannot elaborate SOCIAL HISTORY: States he lived in a cute place recently, but other than this cannot elaborate on his social Hx. Substance Use History: Nicotine:Denies Alcohol: Reports Hx of heavy drinking but cannot elaborate on details of this Recreational Drugs: Denies PSYCHIATRIC EXAMINATION: Vitals: Vitals: 08/20/23 0817 BP: (!) 142/97 Pulse: 108 Resp: 18 Temp: 36.3 C (97.4 F) SpO2: 96% Physical Examination: Constitutional: well developed, in no acute distress, alert, thin, and with central obesity Musculoskeletal: gait Not examined Mental Status Examination: Appearance: moderately kept, appears older than stated age Attitude toward examiner: Superficially cooperative. and Fair eye contact. Behavior/motor: No psychomotor agitation or retardation, no tremor or other abnormal movements. Speech: Coherent, Paucity of language, and slow, appropriate volume Mood: Fine Affect: Euthymic, restricted, mood congruent Thought process: Paucity of content, [place], slowed Thought content: Confabulating Thought perception: No perceptual abnormalities noted Suicidal ideation:Denies Homicidal ideation: Denies Cognition: Grossly impaired - oriented to self only Memory: Grossly impaired Insight: poor Judgment: poor DATA REVIEWED: Prior records have been reviewed in EMR Encounter Date: 08/11/23 ECG 12 lead, Daily x3 Result Value Heart Rate 115 QRSD Interval 90 QT Interval 340 QTC Interval 471 P [place] 0 QRS [place] 62 T Wave [place] 138 NE Interval 0 Impression Atrial fibrillation Low voltage, extremity leads Abnrm T, consider ischemia, anterolateral lds Labs: Recent Results (from the past 24 hour(s)) POCT glucose meter Collection Time: 08/19/23 3:31 PM Result Value Ref Range Glucose 136 (H) 70 - 100 mg/dL POCT glucose meter Collection Time: 08/19/23 8:02 PM Result Value Ref Range Glucose 113 (H) 70 - 100 mg/dL Comprehensive metabolic panel Collection Time: 08/20/23 5:29 AM Result Value Ref Range SODIUM 136 135 - 145 mmol/L POTASSIUM 5.0 3.5 - 5.1 mmol/L CHLORIDE 105 98 - 107 mmol/L CARBON DIOXIDE 25 22 - 30 mmol/L ANION GAP 7 3 - 13 mmol/L UREA NITROGEN 21 (H) 9 - 20 mg/dL CREATININE 1.05 0.66 - 1.25 mg/dL GLUCOSE 99 70 - 100 mg/dL CALCIUM 8.9 8.4 - 10.4 mg/dL AST (SGOT) 49 (H) 15 - 46 U/L ALT 48 0 - 49 U/L ALKALINE PHOSPHATASE 127 (H) 38 - 126 U/L ALBUMIN 3.6 3.5 - 5.0 g/dL BILIRUBIN, TOTAL 0.7 0.2 - 1.3 mg/dL TOTAL PROTEIN 6.7 6.3 - 8.2 g/dL eGFR 77.8 >60.0 mL/min/1.73m*2 POCT glucose meter Collection Time: 08/20/23 6:44 AM Result Value Ref Range Glucose 97 70 - 100 mg/dL POCT glucose meter Collection Time: 08/20/23 11:34 AM Result Value Ref Range Glucose 108 (H) 70 - 100 mg/dL PDMP records have been reviewed ASSESSMENT: Pt w/ cognitive concerns after significant Hx of EtOH abuse. Pt w/ repletion of thiamine. Likely some component of this is delirium, however would absolutely consider Korsakoff syndrome in the Ddx. No acute safety concerns requiring psychiatric admission. Pt would benefit from supportive care in a safe environment. Could consider low-dose Haldol PRN danger to self/others. TSH and ammonia unremarkable. Diagnostic Impression: Delirium - agree with wernicke encephalopathy EtOH Use D/O R/O Korsakoff syndrome Hx of depression Hx of anxiety Risk of harm to self: Low Risk -- Risk factors include: Access to firearm or other lethal means, Age, Alcohol or other substance abuse, History of impulsivity and/or aggressive behavior , and Psychosis Protective factors include:Denies current suicidal ideation and Denies history of suicide attempts Risk of harm to others: low - Current/history of alcohol or other substance abuse, especially PCP or stimulants and TBI or organic brain disease RECOMMENDATIONS: Pt does NOT require inpatient psychiatric admission. Defer to primary team for need for green slip/sitter. Medications: Could consider Haldol 0.5-1mg PO/IM (if unable to give PO) BID PRN agitation that endangers self/others Labs: HIV and RPR pending - defer to primary team for F/U. Agree with neuro consult Delirium precautions: Avoid sedating/anticholinergic medications, encourage sleep hygiene, minimizebarriers to nutrition, optimize sensory input and access to assistive devices (dentures, glasses, etc) where indicated, encourage time up in chair as able, D/c Hood, restraints, IV lines, as able and reserve agitation PRNs for instances where patient is danger to self/others/treatment. Recommendations shared with primary team. Follow up: Will sign off - please reconsult should clinical situation change. * Ajith Wong MD - 08/13/2023 11:21 AM ESTAssociated Order(s): IP CONSULT TO ADDICTION [facility]IC[facility] Consult service H&P Admit Date: 08/11/2023 Primary Care Physician: John Springer MD ] Chief Complaint Patient presents with Shortness of Breath Substance dependence disorder History of Present Illness Messi Waldrop is a 68 y.o. year old male with alcohol use disorder The patient is extremely bad historian When asked when was his last drink he states 5 weeks ago He is etg that was done in the ER on the was positive which means he had a drink within 3 to 4days When asked about the amount of drinking the patient could not quantify the amount of drinking Patient face is bruised when asked about that he said that when he drinks he falls and he wakes up in the morning with those bruises When asked how long is he been drinking he said that he has a picture of himself when he was a babyand had a beer bottle in his hand The patient denies any other drug use Denies any history of seizures Denies any history of DTs He states that he had a DUI last year The patient stated that he has never been in a psych hospital He denies any suicidal or homicidal ideation currently remotely He denies any childhood trauma or PTSD Substance Use Disorder Criteria 1. Taking substance in larger amounts and/or for longer than intended [x] 2. Wanting to cut down or quit substance use but not being able to [x] 3. Spending a lot of time obtaining the substance [x] 4. Craving or a strong desire to use substance [x] 5. Repeatedly doesn't carry out major obligations due to substance use [x] 6. Using despite recurring social or interpersonal problems caused by substance use [x] 7. Reducing social, occupational, or recreational activities due to substance use [x] 8. Recurrent use of substance in physically hazardous situations [x] 9. Consistent use of substance despite recurrent physical or psychological difficulties [x] 10. Tolerance (increased amounts to achieve intoxication or diminished effect) [x] 11. Withdrawal syndrome or the substance is used to avoid withdrawal [x] 2-3 = mild; 4-5 = moderate; 6 or >6 = severe substance use disorder Remaining History Past Medical History: Diagnosis Date ADHD (attention deficit hyperactivity disorder) Anxiety Cancer ([facility]/HCC) ([facility]) 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 COPD (chronic obstructive pulmonary disease) ([facility]) Elevated blood pressure Essential (primary) hypertension 07/08/2017 Hyperlipidemia Indigestion Insomnia Prediabetes Umbilical hernia Past Surgical History: Procedure Laterality Date COLONOSCOPY DENTAL SURGERY EYE SURGERY Bilateral cataract surgery LARYNGOSCOPY 03/04/2020 fine needle aspiration biopsy right neck mass and right base of tounge biopsy - dr steiner LASIK TONSILLECTOMY (HISTORICAL) Right 03/04/2020 dr steiner Family History Problem Relation Name Age of Onset Diabetes Mother Diabetes Sister Diabetes Brother Social History Socioeconomic History Marital status: Single Spouse name: Not on file Number of children: Not on file Years of education: Not on file Highest education level: Not on file Occupational History Not on file Tobacco Use Smoking status: Not on file Smokeless tobacco: Current Substance and Sexual Activity Alcohol use: Yes Alcohol/week: 42.0 standard drinks of alcohol Drug use: No Sexual activity: Not on file Other Topics Concern Not on file Social History Narrative Merged History Encounter Social Determinants of Health Financial Resource Strain: Not on file Food Insecurity: Not on file Transportation Needs: Not on file Physical Activity: Not on file Stress: Not on file Social Connections: Not on file Intimate Partner Violence: Not on file Housing Stability: Not on file Allergies: Patient has no known allergies. Review of Systems Denies suicidal or homicidal ideation denies tactile auditory or visual hallucinations All of systems ROS was completed and was negative unless stated above Physical Exam Vitals: 08/13/23 0708 08/13/23 0802 08/13/23 0944 08/13/23 1118 BP: 115/83 132/68 103/61 BP Location: Right arm Left arm Patient Position: Lying Lying Pulse: 72 70 86 92 Resp: 20 18 16 Temp: 36.3 C (97.4 F) TempSrc: Temporal SpO2: 98% 99% 96% Weight: Height: General appearance: Cooperative, no distress, appears stated age, non-toxic. Skin: Skin color, temperature, turgor normal. No rashes or lesions. Neurologic: CN II-XII grossly intact. Normal sensation. Normal symmetric reflexes. Normal coordination and gait. Musculoskeletal: Normal muscle strength and tone in 4 distal extremities. Normal range of motion in4 distal extremities. Psychiatric: Alert and oriented to person, place, and time. Insight: poor Judgment: poor Diaphoresis: 0/10 Restlessness: 0/10 Palmar Erythema 0/10 Tongue Fasciculations: 0/10 Extremity Tremors: 0/10 Imaging/Labs/Meds @RISRSLT@ Recent Results (from the past 48 hour(s)) CBC auto differential Collection Time: 08/11/23 11:41 AM Result Value Ref Range Auto WBC 5.3 3.6 - 10.7 10*3/uL RBC 3.70 (L) 4.40 - 5.90 10*6/uL Hemoglobin 11.9 (L) 13.0 - 18.0 g/dL Hematocrit 37.1 (L) 40.0 - 52.0 % MCV 100.1 (H) 80.0 - 98.0 fL MCH 32.1 26.0 - 34.0 pg MCHC 32.1 32.0 - 36.0 % RDW 18.9 (H) 11.5 - 14.5 % Platelets 223 140 - 440 10*3/uL MPV 9.3 7.4 - 12.4 fL nRBC 0.1 0.0 - 2.0 /100 WBCs Neutrophils Relative 83.4 (H) 40.0 - 80.0 % Lymphocytes Relative 4.8 (L) 20.0 - 40.0 % Monocytes Relative 10.3 (H) 2.0 - 10.0 % Eosinophils Relative 0.8 (L) 1.0 - 6.0 % Basophils Relative 0.7 0.0 - 2.0 % Neutrophils Absolute 4.4 1.8 - 7.0 10*3/uL Lymphocytes Absolute 0.3 (L) 1.0 - 4.3 10*3/uL Monocytes Absolute 0.5 0.0 - 0.8 10*3/uL Eosinophils Absolute 0.0 0.0 - 0.5 10*3/uL Basophils Absolute 0.0 0.0 - 0.2 10*3/uL Troponin, with Serial Reflex Collection Time: 08/11/23 11:41 AM Result Value Ref Range TROPONIN I 0.020 <0.034 ng/mL NT PRO BNP Collection Time: 08/11/23 11:41 AM Result Value Ref Range NT PRO BNP 35,500 (H) <20 - 300 pg/mL Comprehensive metabolic panel Collection Time: 08/11/23 11:41 AM Result Value Ref Range SODIUM 134 (L) 135 - 145 mmol/L POTASSIUM 4.4 3.5 - 5.1 mmol/L CHLORIDE 98 98 - 107 mmol/L CARBON DIOXIDE 23 22 - 30 mmol/L ANION GAP 13 3 - 13 mmol/L UREA NITROGEN 61 (H) 9 - 20 mg/dL CREATININE 1.83 (H) 0.66 - 1.25 mg/dL GLUCOSE 164 (H) 70 - 100 mg/dL CALCIUM 9.0 8.4 - 10.4 mg/dL AST (SGOT) 297 (H) 15 - 46 U/L ALT 148 (H) 0 - 49 U/L ALKALINE PHOSPHATASE 204 (H) 38 - 126 U/L ALBUMIN 3.7 3.5 - 5.0 g/dL BILIRUBIN, TOTAL 0.7 0.2 - 1.3 mg/dL TOTAL PROTEIN 6.9 6.3 - 8.2 g/dL eGFR 39.9 (L) >60.0 mL/min/1.73m*2 Ethanol Collection Time: 08/11/23 11:41 AM Result Value Ref Range ETHANOL IN SER/PLAS <0.010 0.000 - 0.010 g/dL Magnesium Collection Time: 08/11/23 11:41 AM Result Value Ref Range MAGNESIUM 2.3 1.6 - 2.3 mg/dL Hemoglobin A1c Collection Time: 08/11/23 11:41 AM Result Value Ref Range HEMOGLOBIN A1C 4.6 <5.7 % ESTIMATED AVERAGE GLUCOSE 85 mg/dL COVID-19, Flu A/B, and RSV Combo Collection Time: 08/11/23 11:43 AM Specimen: Nasopharynx; Swab Result Value Ref Range SARS-CoV-2 Not Detected Not Detected Respiratory Syncytial Virus Not Detected Not Detected Influenza A Not Detected Not Detected Influenza B Not Detected Not Detected POCT venous blood gas Collection Time: 08/11/23 11:49 AM Result Value Ref Range pH, Venous 7.348 7.330 - 7.430 pH pCO2, Venous 41.5 40 - 55 mm Hg pO2, Venous <29.6 (L) 30.0 - 50.0 mm Hg HCO3, Venous 22.8 (L) 23.0 - 27.0 mmol/L Base Excess, Venous -2.8 -3 - 3 mmol/L SO2, Venous 35.6 (L) 60.0 - 80.0 % FIO2 Lactic acid with reflex Collection Time: 08/11/23 12:57 PM Result Value Ref Range LACTIC ACID 2.6 (H) 0.7 - 2.0 mmol/L Unconfirmed Drug Screen Collection Time: 08/11/23 3:33 PM Result Value Ref Range AMPHETAMINES Negative Negative BARBITURATES Negative Negative BENZODIAZEPINES Positive Negative COCAINE Negative Negative METHADONE Negative Negative OPIATES Negative Negative OXYCODONE/OXYMORPHONE Negative Negative PCP Negative Negative ETHYL GLUCURONIDE SCREEN, URINE Collection Time: 08/11/23 3:33 PM Result Value Ref Range ETHYL GLUCURONIDE, URINE Positive Negative Troponin I Collection Time: 08/11/23 3:39 PM Result Value Ref Range TROPONIN I 0.036 (H) <0.034 ng/mL Lactic acid with reflex Collection Time: 08/11/23 3:39 PM Result Value Ref Range LACTIC ACID 1.8 0.7 - 2.0 mmol/L TSH Collection Time: 08/11/23 3:39 PM Result Value Ref Range THYROID STIMULATING HORMONE 3.236 0.465 - 4.680 uIU/mL ECG 12 lead, Daily x3 Collection Time: 08/11/23 4:18 PM Result Value Ref Range Heart Rate 121 bpm QRSD Interval 86 ms QT Interval 344 ms QTC Interval 488 ms P [place] 0 degrees QRS [place] 51 degrees T Wave [place] 132 degrees NE Interval 0 ms POCT glucose meter Collection Time: 08/11/23 5:46 PM Result Value Ref Range Glucose 115 (H) 70 - 100 mg/dL POCT glucose meter Collection Time: 08/11/23 9:06 PM Result Value Ref Range Glucose 165 (H) 70 - 100 mg/dL Troponin I Collection Time: 08/12/23 4:19 AM Result Value Ref Range TROPONIN I 0.025 <0.034 ng/mL Comprehensive metabolic panel Collection Time: 08/12/23 4:19 AM Result Value Ref Range SODIUM 134 (L) 135 - 145 mmol/L POTASSIUM 3.9 3.5 - 5.1 mmol/L CHLORIDE 103 98 - 107 mmol/L CARBON DIOXIDE 23 22 - 30 mmol/L ANION GAP 9 3 - 13 mmol/L UREA NITROGEN 52 (H) 9 - 20 mg/dL CREATININE 1.44 (H) 0.66 - 1.25 mg/dL GLUCOSE 101 (H) 70 - 100 mg/dL CALCIUM 8.2 (L) 8.4 - 10.4 mg/dL AST (SGOT) 212 (H) 15 - 46 U/L ALT 143 (H) 0 - 49 U/L ALKALINE PHOSPHATASE 196 (H) 38 - 126 U/L ALBUMIN 2.9 (L) 3.5 - 5.0 g/dL BILIRUBIN, TOTAL 0.5 0.2 - 1.3 mg/dL TOTAL PROTEIN 5.6 (L) 6.3 - 8.2 g/dL eGFR 53.3 (L) >60.0 mL/min/1.73m*2 ECG 12 lead, Daily x3 Collection Time: 08/12/23 7:09 AM Result Value Ref Range Heart Rate 95 bpm QRSD Interval 90 ms QT Interval 407 ms QTC Interval 514 ms P [place] 0 degrees QRS [place] 7 degrees T Wave [place] 119 degrees [address] Interval 0 ms POCT glucose meter Collection Time: 08/12/23 7:25 AM Result Value Ref Range Glucose 87 70 - 100 mg/dL Ammonia Collection Time: 08/12/23 8:10 AM Result Value Ref Range AMMONIA <9 (L) 9 - 30 umol/L Transthoracic echocardiogram (TTE) complete with contrast, bubble, strain, and 3D PRN Collection Time: 08/12/23 9:03 AM Result Value Ref Range IVSd 0.9 0.6 - 1.0 cm LVIDd 5.6 4.2 - 5.9 cm LVIDs 5.0 cm LVOT Diameter 2.3 cm LVPWd 0.9 0.6 - 1.0 cm EF BP 26 (A) 55 - 100 % LV Ejection Fraction A2C 28 % LV Ejection Fraction A4C 27 % LV EDV A2C 165 mL LV EDV A4C 155 mL LV EDV BP 162 (A) 67 - 155 mL LV ESV A2C 119 mL LV ESV A4C 113 mL LV ESV BP 112 (A) 22 - 58 mL LVOT Cardiac Output 9.7 liter/minute LVOT Peak Gradient 1 mmHg LVOT Mean Gradient 1 mmHg LVOT SV 38.6 ml LVOT Peak Velocity 0.6 m/s LVOT VTI 9.3 cm RV Mid Dimension 4.0 cm RV Basal Dimension 4.8 cm LA Diameter 4.7 cm LA Volume A/L 109 mL LA Volume 2C 132 (A) 18 - 58 mL LA Volume 4C 76 (A) 18 - 58 mL LA Volume BP 105 (A) 18 - 58 mL RA Area 4C 121.7 mL RA Area 4C 116.7 mL AR PHT 559.8 ms AR Max Velocity PISA 4.4 m/s TAPSE 1.0 (A) 1.7 cm TR Peak Gradient 12 mmHg TR Max Velocity 1.71 m/s Ascending Aorta 3.5 cm IVC Diameter 3.2 cm Aortic Root 3.1 cm Fractional Shortening 2D 11 28 - 44 % LV ESV Index BP 57 mL/m2 LV EDV Index BP 83 mL/m2 LV ESV Index A4C 58 mL/m2 LV EDV Index A4C 79 mL/m2 LV ESV Index A2C 61 mL/m2 LV EDV Index A2C 85 mL/m2 LVIDd Index 2.87 cm/m2 LVIDs Index 2.56 cm/m2 LV RWT Ratio 0.32 LV Mass 2D 191.6 88 - 224 g LV Mass 2D Index 98.3 49 - 115 g/m2 LA Volume Index BP 54 (A) 16 - 34 ml/m2 LA Volume Index A/L 56 16 - 34 mL/m2 LVOT Stroke Volume Index 19.8 mL/m2 LVOT Area 4.2 cm2 LA Volume Index 2C 68 (A) 16 - 34 mL/m2 LA Volume Index 4C 39 (A) 16 - 34 mL/m2 LA Size Index 2.41 cm/m2 LA/AO Root Ratio 1.52 Ao Root Index 1.59 cm/m2 Ascending Aorta Index 1.79 cm/m2 Est. RA Pressure 15 mmHg RVSP 27 mmHg POCT glucose meter Collection Time: 08/12/23 11:02 AM Result Value Ref Range Glucose 140 (H) 70 - 100 mg/dL POCT glucose meter Collection Time: 08/12/23 4:54 PM Result Value Ref Range Glucose 151 (H) 70 - 100 mg/dL POCT glucose meter Collection Time: 08/12/23 9:28 PM Result Value Ref Range Glucose 102 (H) 70 - 100 mg/dL ECG 12 lead, Daily x3 Collection Time: 08/13/23 6:40 AM Result Value Ref Range Heart Rate 115 bpm QRSD Interval 90 ms QT Interval 340 ms QTC Interval 471 ms P [place] 0 degrees QRS [place] 62 degrees T Wave [place] 138 degrees NE Interval 0 ms POCT glucose meter Collection Time: 08/13/23 6:53 AM Result Value Ref Range Glucose 84 70 - 100 mg/dL POCT glucose meter Collection Time: 08/13/23 11:12 AM Result Value Ref Range Glucose 128 (H) 70 - 100 mg/dL apixaban, 5 mg, Oral, BID cholecalciferol, 1,000 Units, Oral, Daily folic acid, 1 mg, Oral, Daily insulin lispro, 0-6 Units, SubCUTAneous, TID WC And insulin lispro, 0-6 Units, SubCUTAneous, Nightly ipratropium-albuterol, 3 mL, Nebulization, TID losartan, 50 mg, Oral, Daily metoprolol tartrate, 50 mg, Oral, BID mometasone-formoterol, 2 puff, Inhalation, BID nicotine, 1 patch, TransDERmal, Daily Followed by [START ON 09/22/2023] nicotine, 1 patch, TransDERmal, Daily Followed by [START ON 10/06/2023] nicotine, 1 patch, TransDERmal, Daily thiamine, 100 mg, Oral, Daily PRN medications: acetaminophen OR acetaminophen, albuterol, dextrose, glucagon (rDNA), glucose,LORazepam OR LORazepam OR LORazepam OR LORazepam OR LORazepam OR LORazepam OR LORazepam OR LORazepam, ondansetron ODT OR ondansetron, perflutren protein A microsphere (Optison) 3 mL in sodium chloride (PF) 0.9 % 10 mL IV syringe, polyethylene glycol (PEG) 3350 @[id number]@ Plan 1. Alcohol use disorder severe with withdrawals Day # at least 2 days of no use Ciwa q 6 hours Thiamine and folate supplement daily The patient will be detoxified with ativan and prn medications for symptomology. This dose will be tapered according to clinical signs and symptoms. Patient is not stable Estimate will need 3-4 extra days of detox The patient will be discharged when stable with an active plan of recovery. 2- suspected wernicke encephalpathy Will start thaimine protocol Not stable Counseled about the hazardous impact of aclohol on the patient health Remaining medical management per primary team. Will follow. AJITH WONG MD, MD Addiction Medicine 08/13/2023 at 11:22 AM * Kierra Prado RD - 08/12/2023 3:36 PM ESTAssociated Order(s): IP CONSULT TO DIETITIAN Nutrition Assessment Type and Reason for Visit: Initial, Consult (poor PO) Nutrition Recommendations/Plan: Continue with Adult diet Regular; Low Sodium (2 gm). Monitor for s/s of swallowing/chewing deficits. None currently reported. Pt has hx of Tonsillar ca and has poor dentition. Sitter has been ordering meals for the patient. Pt is doing well with meals at current. Consuming 100% of meals so far per sitter. Please document pt's PO intakes via flowsheet to accurately assess PO intake adequacy. ETOH hx- on Thiamine/Folate supplementation. Also on Vitamin D3. Will monitor need for additional ONS and initiate as indicated. Monitor intakes, weights, and labs weekly. RD will follow. 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 Reportedly not a candidate for cardioversion due to pt's non compliance to meds. RD visited this afternoon with sitter at bedside. Pt was pleasant, but seemed a little confused and unable to provide much meaningful history. Pt voiced feeling confused like he's going around in circles. Sitter at bedside stated that the pt ate 100% of his breakfast and lunch today. Denies any swallowing deficits observed. PT with hx of Right Tonsillar cancer and is edentulous on the bottom with missing teeth on top. Pt has hx of ETOH use- last drink was reportedly around 3 weeks ago. Wt history reviewed and no weight loss is evident. Estimated Daily Nutrient Needs: Energy Requirements Based On: Kcal/kg Weight Used for Energy Requirements: Current Weight for Energy Calculation (kg): 79 kg Total Energy Requirements (kcals/day): 1812-0472 kcals (25-30 kcals/kg) Weight Used for Protein Requirements: Current Weight in Kg Used for Protein Requirements: 79 kg Estimated Total Protein (g/day): 79-95 (1-1.2g/kg) Estimated Daily Total Fluid (ml/day): 8935-6148 ml/day or per MD Nutrition Related Findings: no edema; Na 134, BUN 52, Cr 1.44, GFR 53.3, Glucose 101, 164, ca++ 8.2, Alk Phos 196, Nt pro BNP 35,500, Ethanol neg, +for Kwasi, Mag 2.3, Ammonia <9, Hgb A1c 4.6% Wound Type: None Current Nutrition Therapies: Adult diet Regular; Low Sodium (2 gm) Current Oral Intake Average Meal Intake: 76-100% (per sitter) Average Supplements Intake: None Ordered Anthropometric Measures: Height: 175.3 cm (5' 9) Current Body Weight: 78.9 kg (174 lb) Weight Source: Standing Scale Admission Body Weight: 78.9 kg (174 lb) (standing scale) Usual Body Weight: 80.3 kg (177 lb) (10/11/22) % Weight Change (Calculated): -1.7 Ina Body Weight (lbs) (Calculated): 160 lbs Ina Body Weight (Kg) (Calculated): 73 kg % Ina Body Weight (Calculated): 108.8 % BMI (kg/m2) (Calculated): 25.7 Weight Adjustment For: No Adjustment BMI Categories: Overweight (BMI 25.0-29.9) Nutrition Diagnosis: Altered nutrition-related lab values related to cardiac dysfunction as evidenced by lab values, other (comment) (NT pro BNP) Nutrition Interventions: Nutrition Education/Counseling: No recommendation at this time Coordination of Nutrition Care: Continue to monitor while inpatient Plan of Care discussed with: Pt, sitter Goals: Goals: PO intake 75% or greater, by next RD assessment, other (specify) Specify Other Goals: Labs will trend towards baseline Nutrition Monitoring and Evaluation: Behavioral-Environmental Outcomes: Readiness for Change Food/Nutrient Intake Outcomes: Diet Advancement/Tolerance, Food and Nutrient Intake Physical Signs/Symptoms Outcomes: Biochemical Data, Chewing or Swallowing, GI Status, Fluid Status or Edema, Nutrition Focused Physical Findings, Skin, Weight Discharge Planning: Continue current diet Kierra Prado RD Contact: *[phone] or via Secure Chat * Bianca Coy MD - 08/12/2023 9:34 AM ESTAssociated Order(s): IP CONSULT TO CARDIOLOGY 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 male with history of alcohol abuse presented with shortness of breath. He was brought to the ER from rehab facility and prior to that was in the [facility]. He is a vaguehistorian. He currently denies chest pain,sob,orthopnea or pnd. He says he came to the hospital because of sobgoing on for 3 days. He is a poor historian and cannot give specifics. He says 5 weeks ago he had a sensation of pins and needle in his chest but denies palpitations. He is been refusing IV and tele. Patient has a history of alcohol abuse and last drink was approximately 3- 5 weeks ago. He says he drinks a lot. He denies syncope to me but per chart review had a fall . In the EF Found to be in A-fib with RVR. Initial vitals in the ED yesterday BP 107/97 heart rate 166 respiratory rate 24 normal O2 saturation. He was started on Cardizem dip and given iv fluids. and now his HR are in the 80s. Initial EKG reviewed which shows atrial fibrillation with RVR. EKG today shows rate controlled atrial fibrillation with T wave inversions in the anterolateral leads Assessment/Plan Afib Heart failure Severe LV dysfunction His initial presentation is afib with rvr, he was given Cardizem overnight by primary team along with fluids. His CR was 1.83 which has come down to 1.4 AST 297 ALT 148, nt probnp 35,500.Lactate normalized with fluids.On exam he has evidence of mild volume overload. I reviewed his echo which shows severely reduced LV systolic function, moderately reduced RV function, mod MR and a small pericardial effusion. His IVC is dilated RAP 15 mmHg He has biatrial enlargement. This makes me think that his afib and cardiomyopathy could have a chronic component. He was given a dose of IV lasix 40 mg once yesterday with improvement in Cr. I also see fluids ordered which I have discontinued.. Would repeat dose of IV lasix 40 mg once today Holding off on adding losartan or aldactone because of MARKOS (improving but not at baseline which is 0.9-1.3) Discontinue Cardizem in the setting of low EF. He is not in shock currently with normal hemodynamics, warm well perfused. Most recent lactate is normal. For rate control add metoprolol . His rates are in the 90s much improved. Currently pt is refusing an IV and tele. At this time I do no think he is a good candidate for severo cardioversion as his compliance with medication will be a challenge and he will need uninterrupted eliquis post cardioversion for atleast 4 weeks [id number] score is atleast 2 , agree with eliquis Severe LV dysfunction - etiology unknown. Differential etiologies - alcohol abuse and afib, Probably need ischemic evaluation at some point but no urgent need. Medications: apixaban, 5 mg, Oral, BID cholecalciferol, 1,000 Units, Oral, Daily dilTIAZem, 60 mg, Oral, 4 times per day folic acid, 1 mg, Oral, Daily insulin lispro, 0-6 Units, SubCUTAneous, TID WC And insulin lispro, 0-6 Units, SubCUTAneous, Nightly ipratropium-albuterol, 3 mL, Nebulization, TID mometasone-formoterol, 2 puff, Inhalation, BID nicotine, 1 patch, TransDERmal, Daily Followed by [START ON 09/22/2023] nicotine, 1 patch, TransDERmal, Daily Followed by [START ON 10/06/2023] nicotine, 1 patch, TransDERmal, Daily thiamine, 100 mg, Oral, Daily Infusion Medications: dilTIAZem, 2.5-15 mg/hr, Last Rate: Stopped (08/12/23 013) sodium chloride, 100 mL/hr, Last Rate: 100 mL/hr (08/11/232047) Physical Examination: Vitals: 08/11/23 2356 08/12/23 0544 08/12/23 0728 08/12/23 0902 BP: 96/61 116/62 117/60 BP Location: Right arm Right arm Patient Position: Lying Lying Pulse: 89 82 88 Resp: 20 16 Temp: 36.7 C (98 F) 36.6 C (97.9 F) 36.1 C (97 F) TempSrc: Temporal Temporal Temporal SpO2: 96% 97% 99% Weight: 174 lb 3.2 oz (79 kg) 174 lb (78.9 kg) Height: 5' 9 (1.753 m) Intake/Output Summary (Last 24 hours) at 08/12/2023 0934 Last data filed at 08/12/2023 0540 Gross per 24 hour Intake -- Output 300 ml Net -300 ml Wt Readings from Last 3 Encounters: 08/12/23 174 lb (78.9 kg) 10/11/22 177 lb 8 oz (80.5 kg) 12/28/21 185 lb 1.6 oz (84 kg) Physical Exam Constitutional: Appearance: Normal appearance. HENT: Head: Normocephalic. Mouth/Throat: Pharynx: No oropharyngeal exudate. Eyes: General: No scleral icterus. Right eye: No discharge. Left eye: No discharge. Neck: Vascular: JVD present. Cardiovascular: Rate and Rhythm: Normal rate. Rhythm irregular. Heart sounds: No murmur heard. No gallop. Pulmonary: Effort: No respiratory distress. Abdominal: General: There is no distension. Tenderness: There is no abdominal tenderness. Musculoskeletal: General: Normal range of motion. Cervical back: Normal range of motion. Right lower leg: No edema. Left lower leg: No edema. Skin: General: Skin is warm and dry. Neurological: Mental Status: He is alert and oriented to person, place, and time. Laboratory Tests: Recent Labs 08/11/23 1141 08/12/23 0419 NA 134* 134* K 4.4 3.9 CL 98 103 CO2 23 23 BUN 61* 52* CREATININE 1.83* 1.44* EGFR 39.9* 53.3* Recent Labs 08/11/23 1141 08/11/23 1539 08/12/23 0419 TROPONINI 0.020 0.036* 0.025 Recent Labs 08/11/23 1141 WBC 5.3 HGB 11.9* HCT 37.1* MCV 100.1* PLT 223 Lab Results Component Value Date HGBA1C 4.6 08/11/2023 Lab Results Component Value Date TSH 3.236 08/11/2023 Lab Results Component Value Date CHOL 202 (A) 12/23/2021 CHOL 181 01/16/2020 Lab Results Component Value Date HDL 62 (H) 12/23/2021 HDL 36 (L) 01/16/2020 No results found for: LDLCALC Lab Results Component Value Date TRIG 100 12/23/2021 TRIG 187 (A) 01/16/2020 No results found for: CHOLHDL No results found for: LDLCHOLESTER Recent Labs 08/11/23 1141 BNP 35,500* No results for input(s): INR in the last 72 hours. Results from last 7 days Lab Units 08/12/23 0419 08/11/23 1141 AST U/L 212* 297* ALT U/L 143* 148* No results found for: IRON, TIBC, FERRITIN Radiology: CXR: personally reviewed: Cardiac Tests Personally Reviewed: Last EKG 08/11/23 ECG 12-LEAD (Preliminary) This result has not been signed. Information might be incomplete. Impression Atrial fibrillation Low voltage, extremity leads Abnrm T, consider ischemia, anterolateral lds Prolonged QT interval Telemetry findings: atrial fibrillation Reports reviewed: Last Echo No results found for this or any previous visit. Last Cath No results found for this or any previous visit. Last Stress Test No results found for this or any previous visit. Last EP study No results found for this or any previous visit. EF BP Date Value Ref Range Status 08/12/2023 26 (A) 55 - 100 % Bianca Coy MD DATE of SERVICE: 08/12/2023 documented in this [facility]01-23-2024 Procedure note* Ava Negron - 08/21/2023 10:20 AM EST Pt refused EEG documented in this [facility]01-19-2024 Hospital Discharge instructions* Discharge Instr - QUINTON* Viraj Agrawal RN - 08/17/2023 4:20 PM EST Continuity of Care Form Patient Name: Messi Waldrop : 1955 Admit date: 08/11/2023 Discharge date: 08/22/23 Code Status Order: Full Code Advance Directives: N Admitting Physician: Adam Guzman MD PCP: John Springer MD Discharging Nurse: Viraj Agrawal RN Discharging Hospital Unit/Room#: B2-257/B2-257 A Discharging Unit Emergency Contact: Extended Emergency Contact Information Primary Emergency Contact: Dewayne Waldrop [place] Relation: Child Past Surgical History: Past Surgical History: Procedure Laterality Date COLONOSCOPY DENTAL SURGERY EYE SURGERY Bilateral cataract surgery LARYNGOSCOPY 03/04/2020 fine needle aspiration biopsy right neck mass and right base of tounge biopsy - dr steiner LASEL TONSILLECTOMY (HISTORICAL) Right 03/04/2020 dr steiner Immunization History: Immunization History Administered Date(s) Administered Pfizer SARS-CoV-2 Vaccination 10/05/2020, 10/26/2020 Active Problems: Medical Problems Problem List * (Principal) Atrial fibrillation with RVR (HCC) Chronic renal disease, stage III (HCC) Anemia Current moderate episode of major depressive disorder without prior episode (HCC) Concussion with loss of consciousness ETOH abuse Forehead laceration, initial encounter Elevated brain natriuretic peptide (BNP) level Shortness of breath Acute kidney injury (HCC) Transaminitis Malignant neoplasm of tonsil (HCC) Morbidly obese (HCC) Chronic alcohol abuse Chemotherapy-induced neutropenia (CMS/HCC) (HCC) (HCC) Nocturia Frequency of urination Benign prostatic hyperplasia with urinary obstruction Overview Signed 05/13/2022 11:01 AM by Interface, Incoming Problems- [facility] Conversion Updating Deprecated Diagnoses Chronic pain of right knee Chronic obstructive pulmonary disease (HCC) Hyperglycemia Isolation/Infection: No active isolations No active infections Nurse Assessment: Last Vital Signs: BP 131/81 (BP Location: Left arm, Patient Position: Lying) Pulse 86 Temp 36.4C (97.6 F) (Temporal) Resp 18 Ht 1.753 m (5' 9) Wt 78.6 kg (173 lb 6 oz) SpO2 96% BMI 25.60 kg/m Last documented pain score (0-10 scale): Last Weight: Wt Readings from Last 1 Encounters: 08/17/23 78.6 kg (173 lb 6 oz) Mental Status: alert, oriented to self, poor safety awareness, short term memory loss IV Access: QUINTON IV Access: None Nursing Mobility/ADLs: Walking Minimal assistance Transfer Minimal assistance Bathing Minimal assistance Dressing Minimal assistance Toileting Minimal assistance Feeding Minimal assistance 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 assistance Med Delivery yes Wound Care Documentation and Therapy: Elimination: Continence: Bowel: yes Bladder: yes Urinary Catheter: None Colostomy/Ileostomy/Ileal Conduit: None Date of Last BM: 08/20/23 Intake/Output Summary (Last 24 hours) at 08/17/2023 1619 Last data filed at 08/17/2023 1000 Gross per 24 hour Intake 420 ml Output 820 ml Net -400 ml I/O last 3 completed shifts: In: 1160 (14.8 mL/kg) [P.O.:960; IV Piggyback:200] Out: 921 (11.7 mL/kg) [Urine:920 (0.3 mL/kg/hr); Stool:1] Weight: 78.6 kg Safety Concerns: at risk for falls, history of seizures, and aspiration risk Impairments/Disabilities: none Nutrition Therapy: Current Nutrition Therapy: Oral diet: general and low sodium (2gm) Routes of Feeding: oral Liquids: thin liquids Daily Fluid Restriction: no Last Modified Barium Swallow with Video (Video Swallowing Test): not done Treatments at the Time of Hospital Discharge: Respiratory Treatments: dulera inhaler BID Oxygen Therapy: is not on home oxygen therapy. Ventilator: No ventilator support Rehab Therapies: physical therapy and occupational therapy Weight Bearing Status/Restrictions: no restriction Other Medical Equipment (for information only, NOT a DME order): bedside commode and wheeled walker Other Treatments: n/a Patient's personal belongings (please select all that are sent with patient): shoes, clothes, coat RN SIGNATURE: MANAGEMENT/SOCIAL WORK SECTION Inpatient Status Date: 08-11-2023 Readmission Risk Assessment Score: @READMISSIONRISKDETAILS@ Discharging to Facility/ Agency Name: [facility] Address: [address] [place] [address] Fax: Dialysis Facility (if applicable) Name: Address: Dialysis Schedule: Phone: 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 Update Admission H&P: No change in H&P PHYSICIAN SIGNATURE: documented in this [facility]01-13-2024 Emergency department Note* Ernie Willoughby RN - 08/11/2023 6:30 PM EST Patient taken to the floor. Report given at bedside. Ernie Willoughby RN 08/11/23 322 * Crystal Acharya RN - 08/11/2023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 History: Head injury, recent fall Comparison: 01/27/2023 Technique: Multislice volume acquisition axial CT sections were obtained from the base to the vertex of the brain without IV contrast enhancement. Multiplanar sagittal and coronal reconstructed images also obtained. Dose reduction employed with automated exposure control. Findings: There is mild brain atrophy with prominent cortical sulci, fissures, and ventricles. There is also cavum septum pellucidum. There are bilateral periventricular and subcortical hypodensitiessuggesting chronic ischemic white matter changes. There is no intracranial hemorrhage, mass effect,or midline shift in the brain. The exam is limited without IV contrast enhancement. There are carotid siphons and vertebral artery calcifications. There is probably small right frontal scalp swelling. There is mild maxillary sinuses mucosal thickening. The bilateral mastoid air cells are clear. IMPRESSION: Mild brain atrophy and chronic ischemic white matter changes. No evidence of acute intracranial process. Report Dictated on Electronically Signed By: Eduard Aiken MD Electronically Signed Date/Time: 08/11/2023 3:30 PM EST Assessment Discussed management with the ED provider and agree with hospitalization. Acute, acute on chronic, unstable/uncontrolled chronic problems/diagnoses: New onset Afib with RVR MARKOS Elevated BNP Transaminitis Hyperglycemia Macrocytic anemia Stable chronic problems affecting care, new non-acute diagnoses: Recent h/o alcohol abuse (last drink ~ 3 weeks ago) HTN HLD Pre Diabetes, hemoglobin A1c pending COPD H/O tonsilar Cancer Anxiety ADHD Plan As a result of the above findings & factors, the following mgmt was pursued: -Initiate oral Cardizem 60 mg every 6 hours and wean the Cardizem drip, to maintain heart rate lessthan 120 but greater than 60 -Consult cardiology -Obtain echocardiogram -Placed on Eliquis 5 mg twice daily -Avoid nephrotoxic medications -Gently hydrate with 0.9 normal saline at 50 cc an hour -Initiate DuoNebs every 6 hours as needed -Albuterol inhaler -Obtain lipid profile -Repeat LFTs in a.m. -Maintain telemetry -Consult dietitian - am labs, replace lytes prn - PT/OT/CM/SW - delirium precautions: increase activity and limit nighttime disturbances - DVT prophylaxis: encourage ambulation and already anticoagulated Complexity: Acute illness or injury posing a threat to life or body function (HIGH). Risk: Care and management is being impacted by the following SDOH: Comorbid conditions (MOD). Advance Directive: Full Code Anticipated Discharge - Date -3 to 4 days - Location - Home - Pending the following -improvement in overall status Total time spent (which include face to face and non face to face encounters) : 65 minutes. Toxic drug monitoring/narrow therapeutic index drug monitoring : # Drug name : Eliquis # Route administered : Oral # Method of monitoring : Monitor for bleeding Extended Emergency Contact Information Primary Emergency Contact: Dewayne Waldrop Relation: Child YARELIS CHAPA APRN - FOUNDER PRESIDENT [employer] CEO Division of Hospitalist Medicine Acute care [facility] Comment: Please note this report has been produced using speech recognition software and may contain errors related to that system including errors in grammar, punctuation, and spelling, as well as words and phrases that may be inappropriate. If there is any questions or concerns please feel free to contact the dictating provider for clarification documented in this [facility]11-01-2023 Discharge summary Author Joey Luong [facility] May 30, 2023 3:16pm Note Date/Time May 30, 2023 3 :16pm [facility] Medical Records Department [address] [place] [address] Discharge Summary 05/30/23 1509 MR#: [id number] Acct: [id number] Name: MESSI WALDROP Rep #:[id number] : [id number] 68 From: Joey Max PCP: Dr. John Springer MD Status:AD M IN Location[place] [facility] [place] [facility]-4 Providers Date of Admission: 05/16/23 Date of Discharge: 05/30/23 Primary Care Physician: Dr. oJhn Springer MD Consultations 05/16/23 23:20 Consult: Icing Machine Operator / Pulmonary Medicine Routine Consulting Provider: [facility] Reason for Consult: Alcohol alcohol withdrawal, severe, failed phenobarb and ativan EMERGENT Consult: No MD Notified: Yes Date Notified: 05/16/23 Time Notified: 22:57 Method of Notification: Text Reason For Visit: ALCOHOL DETOX Diagnosis Discharge Diagnosis (1) Alcohol withdrawal delirium, acute, hyperactive: Status: Acute Code(s): F10.931 - Alcohol use, unspecified with withdrawal delirium Plan: Resolved admitted for alcohol withdrawal treatment and started on phenobarbital. On 05/16 night patient was very agitated aggressive disoriented with incoherent speech despite being on phenobarbital and Ativan as per CIWA score therefore patient was transferred to ICU on Precedex drip. Phenobarbital was held while patient is on Precedex drip. After that patient was very drowsy and somnolent next following several days. Patient is awake and alert. Gabapentin and lorazepam were discontinued. Phenobarbitone was not given after starting Precedex On thiamine and folate Patient was seen by ed case manager and social media intern. Phenobarbital held 05/21 due to somnolence DC gabapentin and lorazepam, which he has still obtained. On interdisciplinary rounds, social media intern and ed case manager said that they have tried several long-term places but they do not take alcoholic patient and 1 placed patient does not want to go (2) Malnutrition: Status: Acute Code(s): E46 - Unspecified protein-calorie malnutrition Qualifiers: Malnutrition type: protein-calorie malnutrition Protein-calorie malnutrition severity: moderate Qualified Code(s): E44.0 - Moderate protein-calorie malnutrition Plan: consult nutrition. per nutrition: chronic, moderate malnutrition related to inadequate protein/calorie intake d/t excessive alcohol consumption regular diet with ensure w meals. Patient has many lingering social and legal issues including legal cases and he needs his cell phone to talk to the attorney at law. (3) Debility: Status: Acute Code(s): R53.81 - Other malaise Plan: PT OT Declined for SNF by insurance. Hopefully he will improve enough to be stable for discharge. Plan Chronic conditions: * Duodenal ulcers: Continue with PPI and sucralfate. * History of anemia secondary to bleeding duodenal ulcer. Hemoglobin has trended upwards and currently 10.4. * Hyponatremia likely associated with alcohol consumption. Last serum sodium 134. Medications at Discharge Home Medications melatonin 5 mg tablet 10 mg PO QHS 05/16/23 folic acid 1 mg tablet 1 mg PO DAILY@0800 #30 tabs 05/30/23 ibuprofen-diphenhydramine citrate 200 mg-38 mg tablet (Ibuprofen PM) 2 cap PO QHS PRN PAIN 3 days #0 tabs 05/30/23 nicotine 21 mg/24 hr daily transdermal patch 21 mg transdermal DAILY #21 ea 05/30/23 thiamine HCl (vitamin B1) 100 mg tablet (Vitamin B-1) 100 mg PO DAILYCM #30 tabs107/30/22 Medical Records Data Medical Nutrition Assessment Dietitian: Malnutrition Criteria Met Start: 05/17/23 10:15 Freq: Status: Active Protocol: Document 05/22/23 14:55 AG (Rec: 05/22/23 14:55 AG Desktop) Nutrition Malnutrition Evidence of Malnutrition Exists Yes Malnutrition (moderate): Chronic Evidenced By Suboptimal Energy Intake ( Moderate),Weight Loss (Severe) ,Physical Changes (Moderate) Clinical Problem Chronic Disease or Condition Related Malnutrition Etiology chronic, moderate malnutrition related to inadequate protein /calorie intake d/t excessive alcohol consumption Signs/Symptoms as evidenced by unintentional 9.5% wt loss x 5 months, estimated energy intake meeting <75% of estimated energy needs > 3 months; moderate muscle wasting/fat loss per physical exam Status Active Problem Recommendation Dietitian Recommendations/Changes continue regular diet; will continue ensure compact TID w/ meals d/t chronic malnutrition Weight / BMI Weight Weight: 164 lb 10.965 oz Body Mass Index (BMI) 23.6 ABG / Lab / Microbiology Data 05/23/23 06:35 05/23/23 06:35 D/C Instructions Discharge Diet: No restrictions Weight Bearing Status: Weight bearing as tolerated Call your doctor if you observe: Fever of 101 or Higher, Coldness, Increased Pain, Numbness or Tingling, Change in Color, Inability to urinate, Inability to have a bowel movement, Shortness of breath, Dizziness, Fainting spells, Swellingin the ankles, Chest pain, Prolonged hiccupping, Increased palpitations (irregular heartbeat) and Calf discomfort When: IN 2 WEEKS Meaningful Use Info Meaningful Use Diagnoses (Choose all that apply): None applicable Discharge Plan Admission Admit Date/Time: 05/16/23 11:44 Primary Reason for Your Visit: Acute alcohol withdrawal syndrome. Attending Provider: Joey Luong Primary Care Provider: John Springer Consulting Providers: Hilaria Myrick; Galen Souza Discharge Orders/Prescriptions Prescriptions: New thiamine HCl (vitamin B1) [Vitamin B-1] 100 mg Tablet 100 mg PO DAILYCM Qty: 30 2RF nicotine 21 mg/24 hr Patch 24 Hour 21 mg transdermal DAILY Qty: 21 0RF folic acid 1 mg Tablet 1 mg PO DAILY@0800 Qty: 30 3RF Continued melatonin 5 mg tablet 10 mg PO QHS Changed Ibuprofen PM 200-38 mg tablet 2 cap PO QHS PRN (Reason: PAIN) 3 Days Qty: 0 0RF Referrals / Follow Up: John Springer MD [Primary Care Provider] - Disposition Disposition (needs filled in before D/C Order can be placed): Home, Self Care Charges/Coding Visit Charges Inpatient E&M: 42415 Disch Hosp >30min 05/30/23 1516 <Electronically signed by Joey Luong MD> Cosigner Signature (if applicable): CC: Dr. John Springer MD; Dr. Joey Luong MD~ Signed [facility] Work Phone: 1(575) 670-512411-01-2023 Discharge summary Author Joey Luong [facility] May 30, 2023 3:08pm Note Date/Time May 30, 2023 3 :05pm [facility] Medical Records Department [address] [place] [address] Instructions for Home/Discharge Instructions 05/30/23 1005 MR#: [id number] Acct: [id number] Name: MESSI WALDROP Rep #:[id number] : 1955 68 From: Joey Max PCP: Dr. John Springer MD Status:AD M IN Discharge Instructions Diet Discharge Diet: No restrictions Activity Discharge Activity: Return to Normal Activity Weight Bearing Status: Weight bearing as tolerated Dressing / Incision Call your doctor if you observe: Fever of 101 or Higher, Coldness, Increased Pain, Numbness or Tingling, Change in Color, Inability to urinate, Inability to have a bowel movement, Shortness of breath, Dizziness, Fainting spells, Swellingin the ankles, Chest pain, Prolonged hiccupping, Increased palpitations (irregular heartbeat) and Calf discomfort Follow Up Care When: IN 2 WEEKS Test Results: Test results from this visit will be discussed in further detail at your follow- up appointment, if applicable. Discharge Plan Admission Admit Date/Time: 05/16/23 11:44 Primary Reason for Your Visit: Acute alcohol withdrawal syndrome. Attending Provider: Joey Luong Primary Care Provider: John Springer Consulting Providers: Hilaria Myrick; Galen Souza Discharge Orders/Prescriptions Prescriptions: New thiamine HCl (vitamin B1) [Vitamin B-1] 100 mg Tablet 100 mg PO DAILYCM Qty: 30 2RF nicotine 21 mg/24 hr Patch 24 Hour 21 mg transdermal DAILY Qty: 21 0RF folic acid 1 mg Tablet 1 mg PO DAILY@0800 Qty: 30 3RF Continued melatonin 5 mg tablet 10 mg PO QHS Changed Ibuprofen PM 200-38 mg tablet 2 cap PO QHS PRN (Reason: PAIN) 3 Days Qty: 0 0RF Referrals / Follow Up: John Springer MD [Primary Care Provider] - Disposition Disposition (needs filled in before D/C Order can be placed): Home, Self Care 05/30/23 1508<Electronically signed by Joey Luong MD>Joey Luong MD CC: Dr. John Springer MD; Dr. Galen Souza DO; Dr. Hilaria Myrick DO ~ Signed [facility] Work Phone: 1(992) 628-492210-31-2023 Progress note Author Galen Souza [facility] May 29, 2023 3:26pm Note Date/Time May 29, 2023 7 :51am [facility] Medical Records Department [address] [place] [address] Progress Note - Hospitalist 05/29/23749 MR#: [id number] Acct: [id number] Name: MESSI WALDROP Rep #:[id number] : 1955 68 From: Galen Souza DO PCP: Dr. John Springer MD Status:AD M IN Location: [address] Reason for Visit Reason for Visit: Diagnoses Moderate protein-calorie malnutrition (05/16/23) Unspecified protein-calorie malnutrition (05/16/23) Alcohol use, unspecified with withdrawal delirium (05/16/23) Other malaise (05/16/23) Subjective Subjective Groggy and confabulating. Objective Data Objective Data Vital Signs: Vital Signs Temp Pulse Resp BP Pulse Ox O2 Del Method O2 Flow Rate 36.7 C 76 18 163/89 H 98 Room Air 2 05/29/23 01:09 05/29/23 01:09 05/29/23 01:09 05/29/23 01:09 05/29/23 01:09 05/29/23 01:09 05/20/23 21:57 Oxygen Flow Rate (L/min) 2 Oxygen Delivery Method Room Air Weight: 75.1 kg Body Mass Index (BMI) 23.7 Intake & Output: Intake and Output for Last 24 Hours 05/27/23 05/28/23 05/29/23 23:59 23:59 23:59 Intake Total 1240 / 1940 2500 / 3100 740 / 740 Output Total 250 / 250 400 / 400 Balance 990 / 1690 2500 / 2700 340 / 340 Medical Nutrition Assessment Dietitian: Malnutrition Criteria Met Start: 05/17/23 10:15 Freq: Status: Active Protocol: Document 05/22/23 14:55 AG (Rec: 05/22/23 14:55 AG Desktop) Nutrition Malnutrition Evidence of Malnutrition Exists Yes Malnutrition (moderate): Chronic Evidenced By Suboptimal Energy Intake ( Moderate),Weight Loss (Severe) ,Physical Changes (Moderate) Clinical Problem Chronic Disease or Condition Related Malnutrition Etiology chronic, moderate malnutrition related to inadequate protein /calorie intake d/t excessive alcohol consumption Signs/Symptoms as evidenced by unintentional 9.5% wt loss x 5 months, estimated energy intake meeting <75% of estimated energy needs > 3 months; moderate muscle wasting/fat loss per physical exam Status Active Problem Recommendation Dietitian Recommendations/Changes continue regular diet; will continue ensure compact TID w/ meals d/t chronic malnutrition Lab / Micro Data 05/23/23 06:35 05/23/23 06:35 Physical Exam Const Constitutional Narrative: confused. confabulating. Neuro Sensorium / Orientation: awake Assessment & Plan Assessment/Plan (1) Alcohol withdrawal delirium, acute, hyperactive: PLAN: Resolved admitted for alcohol withdrawal treatment and started on phenobarbital. Condition worsened and pt required dexmedetomidine gtt to get him through delirium tremens. On thiamine and folate Addiction medicine to see Phenobarbital held 05/21 due to somnolence Somnolence persists. DC gabapentin and lorazepam, which he has still obtained. (2) Malnutrition: QUALIFIERS: Malnutrition type: protein-calorie malnutrition Protein-calorie malnutrition severity: moderate Qualified Code(s): E44.0 - Moderate protein- calorie malnutrition PLAN: consult nutrition. per nutrition: chronic, moderate malnutrition related to inadequate protein/calorie intake d/t excessive alcohol consumption regular diet with ensure w meals. (3) Debility: PLAN: PT OT Declined for SNF by insurance. Hopefully he will improve enough to be stable for discharge. PLAN: Plan Chronic conditions: * Duodenal ulcers: Continue with PPI and sucralfate. * History of anemia secondary to bleeding duodenal ulcer. Hemoglobin has trended upwards and currently 10.4. * Hyponatremia likely associated with alcohol consumption. Monitor for now. Disposition: TBD. To be discharge when medically stable. Police/documentation billing clerk may needto be notified as pt brought in for an RUTHANN. Unclear if he would have to go to penitentiary. Charges/Coding Visit Charges Inpatient E&M: 59674 Subs Hosp L2 05/29/23 1526 <Electronically signed by Galen Souza DO> Cosigner Signature (if applicable): CC: ~ Signed [facility] Work Phone: 1(217) 570-195510-30-2023 Progress note Author Galen Souza [facility] May 28, 2023 11:13am Note Date/Time May 28, 2023 7 :44am [facility] Medical Records Department [address] [place] [address] Progress Note - Hospitalist 05/28/23 0744 MR#: [id number] Acct: [id number] Name: MESSI WALDROP Rep #:[id number] : 1955 68 From: Galen Souza DO PCP: Dr. John Springer MD Status:AD M IN Location: [place] [id number] Reason for Visit Reason for Visit: Diagnoses Moderate protein-calorie malnutrition (05/16/23) Unspecified protein-calorie malnutrition (05/16/23) Alcohol use, unspecified with withdrawal delirium (05/16/23) Other malaise (05/16/23) Subjective Subjective Feels he is walking fine. Objective Data Objective Data Vital Signs: Vital Signs Temp Pulse Resp BP Pulse Ox O2 Del Method O2 Flow Rate 36.8 C 82 16 138/64 H 98 Room Air 2 05/28/23 03:00 05/28/23 03:00 05/28/23 03:00 05/28/23 03:00 05/28/23 03:00 05/28/23 04:00 05/20/23 21:57 Oxygen Flow Rate (L/min) 2 Oxygen Delivery Method Room Air Weight: 75.1 kg Body Mass Index (BMI) 23.7 Intake & Output: Intake and Output for Last 24 Hours 05/26/23 05/27/23 05/28/23 23:59 23:59 23:59 Intake Total 2050 / 3050 1240 / 1940 1200 / 1200 Output Total 150 / 150 250 / 250 Balance 1900 / 2900 990 / 1690 1200 / 1200 Medical Nutrition Assessment Dietitian: Malnutrition Criteria Met Start: 05/17/23 10:15 Freq: Status: Active Protocol: Document 05/22/23 14:55 AG (Rec: 05/22/23 14:55 AG Desktop) Nutrition Malnutrition Evidence of Malnutrition Exists Yes Malnutrition (moderate): Chronic Evidenced By Suboptimal Energy Intake ( Moderate),Weight Loss (Severe) ,Physical Changes (Moderate) Clinical Problem Chronic Disease or Condition Related Malnutrition Etiology chronic, moderate malnutrition related to inadequate protein /calorie intake d/t excessive alcohol consumption Signs/Symptoms as evidenced by unintentional 9.5% wt loss x 5 months, estimated energy intake meeting <75% of estimated energy needs > 3 months; moderate muscle wasting/fat loss per physical exam Status Active Problem Recommendation Dietitian Recommendations/Changes continue regular diet; will continue ensure compact TID w/ meals d/t chronic malnutrition Lab / Micro Data 05/23/23 06:35 05/23/23 06:35 Physical Exam Const alert Constitutional Narrative: cachectic. narrow-based gait. required assistance with ambulation by therapy. Resp normal respiratory effort Neuro Sensorium / Orientation: awake and alert Assessment & Plan Assessment/Plan (1) Alcohol withdrawal delirium, acute, hyperactive: PLAN: Resolved admitted for alcohol withdrawal treatment and started on phenobarbital. Condition worsened and pt required dexmedetomidine gtt to get him through delirium tremens. On thiamine and folate Addiction medicine to see Phenobarbital held 05/21 due to somnolence Patient was asked about driving restrictions. I told him that would be up to the police or [employer]. He was asking if he could have permission to go to [facility]. I told him again that would have to be up to the police or the documentation billing clerk. (2) Malnutrition: QUALIFIERS: Malnutrition type: protein-calorie malnutrition Protein-calorie malnutrition severity: moderate Qualified Code(s): E44.0 - Moderate protein- calorie malnutrition PLAN: consult nutrition. per nutrition: chronic, moderate malnutrition related to inadequate protein/calorie intake d/t excessive alcohol consumption regular diet with ensure w meals. (3) Debility: PLAN: PT OT Needs SNF. Patient asking about going home. I told him that is what he decidesand we would have to notify the police that he is leaving it is unclear if he would need to go to penitentiary or not. When he is present with that he said that he would be open to going to a prison facility. PLAN: Plan Chronic conditions: * Duodenal ulcers: Continue with PPI and sucralfate. * History of anemia secondary to bleeding duodenal ulcer. Hemoglobin has trended upwards and currently 10.4. * Hyponatremia likely associated with alcohol consumption. Monitor for now. Disposition: TBD. To [facility] pending insurance authorization. Charges/Coding Visit Charges Inpatient E&M: 02346 Subs Hosp L1 05/28/23 1113 <Electronically signed by Galen Souza DO> Cosigner Signature (if applicable): CC: ~ Signed [facility] Work Phone: 1(731) 316-424210-29-2023 Progress note Author Galen Souza [facility] May 27, 2023 11:48am Note Date/Time May 27, 2023 7 :56am [facility] Medical Records Department [address] [place] [address] Progress Note - Hospitalist 05/27/23 0756 MR#: [id number] Acct: [id number] Name: MESSI WALDROP Rep #:[id number] : 1955 68 From: Galen Souza DO PCP: Dr. John Springer MD Status:AD M IN Location: [place] [address] Reason for Visit Reason for Visit: Diagnoses Moderate protein-calorie malnutrition (05/16/23) Unspecified protein-calorie malnutrition (05/16/23) Alcohol use, unspecified with withdrawal delirium (05/16/23) Other malaise (05/16/23) Subjective Subjective Patient states that he is walking fine and asking if he can just go home. Objective Data Objective Data Vital Signs: Vital Signs Temp Pulse Resp BP Pulse Ox O2 Del Method O2 Flow Rate 36.6 C 73 16 158/84 H 98 Room Air 2 05/27/23 03:00 05/27/23 03:00 05/27/23 03:00 05/27/23 03:00 05/27/23 03:00 05/27/23 03:17 05/20/23 21:57 Oxygen Flow Rate (L/min) 2 Oxygen Delivery Method Room Air Weight: 74.8 kg Body Mass Index (BMI) 23.6 Intake & Output: Intake and Output for Last 24 Hours 05/25/23 05/26/23 05/27/23 23:59 23:59 23:59 Intake Total 1550 / 1550 2050 / 3050 1240 / 1240 Output Total 150 / 150 Balance 1550 / 1550 1900 / 2900 1240 / 1240 Medical Nutrition Assessment Dietitian: Malnutrition Criteria Met Start: 05/17/23 10:15 Freq: Status: Active Protocol: Document 05/22/23 14:55 AG (Rec: 05/22/23 14:55 AG Desktop) Nutrition Malnutrition Evidence of Malnutrition Exists Yes Malnutrition (moderate): Chronic Evidenced By Suboptimal Energy Intake ( Moderate),Weight Loss (Severe) ,Physical Changes (Moderate) Clinical Problem Chronic Disease or Condition Related Malnutrition Etiology chronic, moderate malnutrition related to inadequate protein /calorie intake d/t excessive alcohol consumption Signs/Symptoms as evidenced by unintentional 9.5% wt loss x 5 months, estimated energy intake meeting <75% of estimated energy needs > 3 months; moderate muscle wasting/fat loss per physical exam Status Active Problem Recommendation Dietitian Recommendations/Changes continue regular diet; will continue ensure compact TID w/ meals d/t chronic malnutrition Lab / Micro Data 05/23/23 06:35 05/23/23 06:35 Physical Exam Const alert and no apparent distress Constitutional Narrative: Appears more coherent today. Psych affect normal Assessment & Plan Assessment/Plan (1) Alcohol withdrawal delirium, acute, hyperactive: PLAN: Resolved admitted for alcohol withdrawal treatment and started on phenobarbital. Condition worsened and pt required dexmedetomidine gtt to get him through delirium tremens. On thiamine and folate Addiction medicine to see Phenobarbital held 05/21 due to somnolence Patient was asked about driving restrictions. I told him that would be up to the police or [employer]. He was asking if he could have permission to go to [facility]. I told him again that would have to be up to the police or the documentation billing clerk. (2) Malnutrition: QUALIFIERS: Malnutrition type: protein-calorie malnutrition Protein-calorie malnutrition severity: moderate Qualified Code(s): E44.0 - Moderate protein- calorie malnutrition PLAN: consult nutrition. per nutrition: chronic, moderate malnutrition related to inadequate protein/calorie intake d/t excessive alcohol consumption regular diet with ensure w meals. (3) Debility: PLAN: PT OT Needs SNF. Patient asking about going home. I told him that is what he decidesand we would have to notify the police that he is leaving it is unclear if he would need to go to penitentiary or not. When he is present with that he said that he would be open to going to a prison facility. PLAN: Plan Chronic conditions: * Duodenal ulcers: Continue with PPI and sucralfate. * History of anemia secondary to bleeding duodenal ulcer. Hemoglobin has trended upwards and currently 10.4. * Hyponatremia likely associated with alcohol consumption. Monitor for now. Disposition: TBD. To [facility] pending insurance authorization. Greater than 35 minutes of which greater than 50% of time was counseling patientabout bedside about the need for prison facility but also informing himof the possibility they may need to go to penitentiary if he does not go to a facility. Charges/Coding Visit Charges Inpatient E&M: 09920 Subs Hosp L2 05/27/23 1148 <Electronically signed by Galen Souza DO> Cosigner Signature (if applicable): CC: ~ Signed [facility] Work Phone: 1(924) 629-426310-28-2023 Progress note Author Galen Souza [facility] May 26, 2023 10:50am Note Date/Time May 26, 2023 7 :52am [facility] Medical Records Department [address] [facility] [place] [address] Progress Note - Hospitalist 05/26/23 075 MR#: [id number] Acct: [id number] Name: MESSI WALDROP Rep #:[id number] : 1955 68 From: Galen Souza DO PCP: Dr. John Springer MD Status:AD M IN [id number] Reason for Visit Reason for Visit: Diagnoses Moderate protein-calorie malnutrition (05/16/23) Unspecified protein-calorie malnutrition (05/16/23) Alcohol use, unspecified with withdrawal delirium (05/16/23) Other malaise (05/16/23) Subjective Subjective Denies complaints. Objective Data Objective Data Vital Signs: Vital Signs Temp Pulse Resp BP Pulse Ox O2 Del Method O2 Flow Rate 36.8 C 75 14 150/89 H 100 Room Air 2 05/26/23 06:00 05/26/23 06:00 05/26/23 06:00 05/26/23 06:00 05/26/23 06:00 05/26/23 06:00 05/20/23 21:57 Oxygen Flow Rate (L/min) 2 Oxygen Delivery Method Room Air Weight: 61.7 kg Body Mass Index (BMI) 19.5 Intake & Output: Intake and Output for Last 24 Hours 05/24/23 05/25/23 05/26/23 23:59 23:59 23:59 Intake Total 750 / 950 1550 / 1550 200 / 200 Output Total 150 / 150 Balance 750 / 950 1550 / 1550 50 / 50 Medical Nutrition Assessment Dietitian: Malnutrition Criteria Met Start: 05/17/23 10:15 Freq: Status: Active Protocol: Document 05/22/23 14:55 AG (Rec: 05/22/23 14:55 AG Desktop) Nutrition Malnutrition Evidence of Malnutrition Exists Yes Malnutrition (moderate): Chronic Evidenced By Suboptimal Energy Intake ( Moderate),Weight Loss (Severe) ,Physical Changes (Moderate) Clinical Problem Chronic Disease or Condition Related Malnutrition Etiology chronic, moderate malnutrition related to inadequate protein /calorie intake d/t excessive alcohol consumption Signs/Symptoms as evidenced by unintentional 9.5% wt loss x 5 months, estimated energy intake meeting <75% of estimated energy needs > 3 months; moderate muscle wasting/fat loss per physical exam Status Active Problem Recommendation Dietitian Recommendations/Changes continue regular diet; will continue ensure compact TID w/ meals d/t chronic malnutrition Lab / Micro Data 05/23/23 06:35 05/23/23 06:35 Physical Exam Const no apparent distress Constitutional Narrative: cachectic. afebrile. Neuro Neuro Narrative: up ambulating with therapy with narrow based gait. Sensorium / Orientation: awake and alert Assessment & Plan Assessment/Plan (1) Alcohol withdrawal delirium, acute, hyperactive: PLAN: Admitted for alcohol withdrawal treatment and started on phenobarbital. Condition worsened and pt required dexmedetomidine gtt to get him through delirium tremens. On thiamine and folate Addiction medicine to see Phenobarbital held 05/21 due to somnolence (2) Malnutrition: QUALIFIERS: Malnutrition type: protein-calorie malnutrition Protein-calorie malnutrition severity: moderate Qualified Code(s): E44.0 - Moderate protein- calorie malnutrition PLAN: consult nutrition. per nutrition: chronic, moderate malnutrition related to inadequate protein/calorie intake d/t excessive alcohol consumption regular diet with ensure w meals. (3) Debility: PLAN: PT OT Needs SNF. PLAN: Plan Chronic conditions: * Duodenal ulcers: Continue with PPI and sucralfate. * History of anemia secondary to bleeding duodenal ulcer. Hemoglobin has trended upwards and currently 10.4. * Hyponatremia likely associated with alcohol consumption. Monitor for now. Disposition: TBD. To [facility] pending insurance authorization. Charges/Coding Visit Charges Inpatient E&M: 23853 Subs Hosp L1 05/26/23 1050 <Electronically signed by Galen Souza DO> Cosigner Signature (if applicable): CC: ~ Signed [facility] Work Phone: 1(227) 852-709910-27-2023 Progress note Author Galen Souza [facility] May 25, 2023 12:42pm Note Date/Time May 25, 2023 7 :37am [facility] Medical Records Department [address] [place] [address] Progress Note - Hospitalist 05/25/23 0737 MR#: [id number] Acct: [id number] Name: MESSI WALDROP Rep #:[id number] : 1955 68 From: Galen Souza DO PCP: Dr. John Springer MD Status:AD M IN [id number] Reason for Visit Reason for Visit: Diagnoses Moderate protein-calorie malnutrition (05/16/23) Unspecified protein-calorie malnutrition (05/16/23) Alcohol use, unspecified with withdrawal delirium (05/16/23) Other malaise (05/16/23) Subjective Subjective Unaware of need for SNF. Objective Data Objective Data Vital Signs: Vital Signs Temp Pulse Resp BP Pulse Ox O2 Del Method O2 Flow Rate 36.4 C L 73 16 169/96 H 100 Room Air 2 05/25/23 02:33 05/25/23 02:33 05/25/23 02:33 05/25/23 02:33 05/25/23 02:33 05/25/23 02:33 05/20/23 21:57 Oxygen Flow Rate (L/min) 2 Oxygen Delivery Method Room Air Weight: 73.1 kg Body Mass Index (BMI) 23.1 Intake & Output: Intake and Output for Last 24 Hours 05/23/23 05/24/23 05/25/23 23:59 23:59 23:59 Intake Total 750 / 950 300 / 300 Balance 750 / 950 300 / 300 Medical Nutrition Assessment Dietitian: Malnutrition Criteria Met Start: 05/17/23 10:15 Freq: Status: Active Protocol: Document 05/22/23 14:55 AG (Rec: 05/22/23 14:55 AG Desktop) Nutrition Malnutrition Evidence of Malnutrition Exists Yes Malnutrition (moderate): Chronic Evidenced By Suboptimal Energy Intake ( Moderate),Weight Loss (Severe) ,Physical Changes (Moderate) Clinical Problem Chronic Disease or Condition Related Malnutrition Etiology chronic, moderate malnutrition related to inadequate protein /calorie intake d/t excessive alcohol consumption Signs/Symptoms as evidenced by unintentional 9.5% wt loss x 5 months, estimated energy intake meeting <75% of estimated energy needs > 3 months; moderate muscle wasting/fat loss per physical exam Status Active Problem Recommendation Dietitian Recommendations/Changes continue regular diet; will continue ensure compact TID w/ meals d/t chronic malnutrition Lab / Micro Data 05/23/23 06:35 05/23/23 06:35 Labs: Laboratory Results - last 24 hr 05/23/23 06:35: Diff Path Review Reviewed Physical Exam Const alert Constitutional Narrative: making inappropriate comments and questions. Neuro oriented x3 Sensorium / Orientation: awake and alert Assessment & Plan Assessment/Plan (1) Alcohol withdrawal delirium, acute, hyperactive: PLAN: Admitted for alcohol withdrawal treatment and started on phenobarbital. Condition worsened and pt required dexmedetomidine gtt to get him through delirium tremens. On thiamine and folate Addiction medicine to see Phenobarbital held 05/21 due to somnolence (2) Malnutrition: QUALIFIERS: Malnutrition type: protein-calorie malnutrition Protein-calorie malnutrition severity: moderate Qualified Code(s): E44.0 - Moderate protein- calorie malnutrition PLAN: consult nutrition. per nutrition: chronic, moderate malnutrition related to inadequate protein/calorie intake d/t excessive alcohol consumption regular diet with ensure w meals. (3) Debility: PLAN: PT OT cannot rule out need for SNF. PLAN: Plan Chronic conditions: * Duodenal ulcers: Continue with PPI and sucralfate. * History of anemia secondary to bleeding duodenal ulcer. Hemoglobin has trended upwards and currently 10.4. * Hyponatremia likely associated with alcohol consumption. Monitor for now. Disposition: TBD. To [facility] pending insurance authorization. Charges/Coding Visit Charges Inpatient E&M: 85553 Subs Hosp L1 05/25/23 1242 <Electronically signed by Galen Souza DO> Cosigner Signature (if applicable): CC: ~ Signed [facility] Work Phone: 1(712) 190-318210-26-2023 Progress note Author Galen Souza [facility] May 24, 2023 2:07pm Note Date/Time May 24, 2023 8 :48am [facility] Medical Records Department [address] [place] [address] Progress Note - Hospitalist 05/24/23 0847 MR#: [id number] Acct: [id number] Name: MESSI WALDROP Rep #:[id number] : 1955 68 From: Galen Souza DO PCP: Dr. John Springer MD Status:AD M IN Location: [place] [address] Reason for Visit Reason for Visit: Diagnoses Moderate protein-calorie malnutrition (05/16/23) Unspecified protein-calorie malnutrition (05/16/23) Alcohol use, unspecified with withdrawal delirium (05/16/23) Other malaise (05/16/23) Subjective Subjective sleeping. did not awake. Was inappropriate with staff last night. Objective Data Objective Data Vital Signs: Vital Signs Temp Pulse Resp BP Pulse Ox O2 Del Method O2 Flow Rate 36.6 C 85 18 126/76 H 96 Room Air 2 05/24/23 02:52 05/24/23 02:52 05/24/23 02:52 05/24/23 02:52 05/24/23 02:52 05/24/23 02:52 05/20/23 21:57 Oxygen Flow Rate (L/min) 2 Oxygen Delivery Method Room Air Weight: 73.4 kg Body Mass Index (BMI) 23.2 Intake & Output: Intake and Output for Last 24 Hours 05/22/23 05/23/23 05/24/23 23:59 23:59 23:59 Intake Total 300 / 300 Balance 300 / 300 Medical Nutrition Assessment Dietitian: Malnutrition Criteria Met Start: 05/17/23 10:15 Freq: Status: Active Protocol: Document 05/22/23 14:55 AG (Rec: 05/22/23 14:55 AG Desktop) Nutrition Malnutrition Evidence of Malnutrition Exists Yes Malnutrition (moderate): Chronic Evidenced By Suboptimal Energy Intake ( Moderate),Weight Loss (Severe) ,Physical Changes (Moderate) Clinical Problem Chronic Disease or Condition Related Malnutrition Etiology chronic, moderate malnutrition related to inadequate protein /calorie intake d/t excessive alcohol consumption Signs/Symptoms as evidenced by unintentional 9.5% wt loss x 5 months, estimated energy intake meeting <75% of estimated energy needs > 3 months; moderate muscle wasting/fat loss per physical exam Status Active Problem Recommendation Dietitian Recommendations/Changes continue regular diet; will continue ensure compact TID w/ meals d/t chronic malnutrition Lab / Micro Data 05/23/23 06:35 05/23/23 06:35 Physical Exam Const alert and no apparent distress Resp normal respiratory effort, no retractions, no use of accessory muscles and clearto auscultation bilaterally Cardio regular rate, regular rhythm, S1 normal heart sound and S2 normal heart sound GI normal to inspection, nondistended, normoactive bowel sounds and soft to palpation Assessment & Plan Assessment/Plan (1) Alcohol withdrawal delirium, acute, hyperactive: PLAN: Admitted for alcohol withdrawal treatment and started on phenobarbital. Condition worsened and pt required dexmedetomidine gtt to get him through delirium tremens. On thiamine and folate Addiction medicine to see Phenobarbital held 05/21 due to somnolence (2) Malnutrition: QUALIFIERS: Malnutrition type: protein-calorie malnutrition Protein-calorie malnutrition severity: moderate Qualified Code(s): E44.0 - Moderate protein- calorie malnutrition PLAN: consult nutrition. per nutrition: chronic, moderate malnutrition related to inadequate protein/calorie intake d/t excessive alcohol consumption regular diet with ensure w meals. (3) Debility: PLAN: PT OT cannot rule out need for SNF. PLAN: Plan Chronic conditions: * Duodenal ulcers: Continue with PPI and sucralfate. * History of anemia secondary to bleeding duodenal ulcer. Hemoglobin has trended upwards and currently 10.4. * Hyponatremia likely associated with alcohol consumption. Monitor for now. Disposition: TBD. Additional therapy recommended. CM/SW to eval. Unclear if patient would be agreeable. Complicating factor, pt was involved with [facility]. The auspices of him coming here was that he would have to go to alcohol rehabilitation. It is unclear if he would be able to go to a SNF given these circumstances. Charges/Coding Visit Charges Inpatient E&M: 33900 Subs Hosp L2 05/24/23 1407 <Electronically signed by Galen Souza DO> Cosigner Signature (if applicable): CC: ~ Signed [facility] Work Phone: 1(735) 702-172210-25-2023 Progress note Author Gaeln Souza [facility] May 23, 2023 1:15pm Note Date/Time May 23, 2023 7 :50am [facility] Medical Records Department [address] [place] [address] Progress Note - Hospitalist 05/23/23 0749 MR#: [id number] Acct: [id number] Name: MESSI WALDROP Rep #:[id number] : 1955 68 From: Galen Souza DO PCP: Dr. John Springer MD Status:AD M IN Location: [place] [address] Reason for Visit Reason for Visit: Diagnoses Unspecified protein-calorie malnutrition (05/16/23) Alcohol use, unspecified with withdrawal delirium (05/16/23) Other malaise (05/16/23) Subjective Subjective No events overnight. Objective Data Objective Data Vital Signs: Vital Signs Temp Pulse Resp BP Pulse Ox O2 Del Method O2 Flow Rate 36.8 C 91 18 131/82 H 100 Room Air 2 05/23/23 07:40 05/23/23 07:40 05/23/23 07:40 05/23/23 07:40 05/23/23 07:40 05/23/23 07:40 05/20/23 21:57 Oxygen Flow Rate (L/min) 2 Oxygen Delivery Method Room Air Weight: 72.4 kg Body Mass Index (BMI) 22.8 Intake & Output: Intake and Output for Last 24 Hours 05/21/23 05/22/23 05/23/23 23:59 23:59 23:59 Intake Total 750 / 750 Balance 750 / 750 Medical Nutrition Assessment Dietitian: Malnutrition Criteria Met Start: 05/17/23 10:15 Freq: Status: Active Protocol: Document 05/22/23 14:55 AG (Rec: 05/22/23 14:55 AG Desktop) Nutrition Malnutrition Evidence of Malnutrition Exists Yes Malnutrition (moderate): Chronic Evidenced By Suboptimal Energy Intake ( Moderate),Weight Loss (Severe) ,Physical Changes (Moderate) Clinical Problem Chronic Disease or Condition Related Malnutrition Etiology chronic, moderate malnutrition related to inadequate protein /calorie intake d/t excessive alcohol consumption Signs/Symptoms as evidenced by unintentional 9.5% wt loss x 5 months, estimated energy intake meeting <75% of estimated energy needs > 3 months; moderate muscle wasting/fat loss per physical exam Status Active Problem Recommendation Dietitian Recommendations/Changes continue regular diet; will continue ensure compact TID w/ meals d/t chronic malnutrition Lab / Micro Data 05/23/23 06:35 05/23/23 06:35 Labs: Laboratory Results - last 24 hr 05/23/23 06:35: WBC 3.5 L, RBC 3.38 L, Hgb 11.1 L, Hct 33.1 L, MCV 97.9 H, MCH 32.8 H, MCHC 33.5, RDW Std Deviation 49.6 H, RDW Coeff of Jesus 13.8, Plt Count 260, MPV 9.3, Immature Gran % (Auto) 0.900, Neut % (Auto) 61.2, Lymph % (Auto) 17.2 L, Norman % (Auto) 15.2 H, Eos % (Auto) 4.6, Baso % (Auto) 0.9, Absolute Neuts (auto) 2.1, Absolute Lymphs (auto) 0.60 L, Nucleated RBC % 0, DifferentialComment SCANNED, Diff Path Review November foll, Sodium 134 L, Potassium 4.0, Chloride 100, Carbon Dioxide 29.0, Anion Gap 5, BUN 25 H, Creatinine 1.35 H, Estim Creat Clear Calc 54.37, Est GFR (MDRD) Af Amer 68, Est GFR (MDRD) Non-Af 56 L, BUN/Creatinine Ratio 18.5, Glucose 88, Calcium 8.8 Physical Exam Const alert and no apparent distress Constitutional Narrative: dishevled. HEENT HEENT Narrative: swelling on right forehead. Neuro Sensorium / Orientation: awake Assessment & Plan Assessment/Plan (1) Alcohol withdrawal delirium, acute, hyperactive: PLAN: Admitted for alcohol withdrawal treatment and started on phenobarbital. Condition worsened and pt required dexmedetomidine gtt to get him through delirium tremens. On thiamine and folate Addiction medicine to see Phenobarbital held 05/21 due to somnolence (2) Malnutrition: QUALIFIERS: Malnutrition type: protein-calorie malnutrition Protein-calorie malnutrition severity: moderate Qualified Code(s): E44.0 - Moderate protein- calorie malnutrition PLAN: consult nutrition. per nutrition: chronic, moderate malnutrition related to inadequate protein/calorie intake d/t excessive alcohol consumption regular diet with ensure w meals. (3) Debility: PLAN: PT OT cannot rule out need for SNF. PLAN: Plan Chronic conditions: * Duodenal ulcers: Continue with PPI and sucralfate. * History of anemia secondary to bleeding duodenal ulcer. Hemoglobin has trended upwards and currently 10.4. * Hyponatremia likely associated with alcohol consumption. Monitor for now. Disposition: TBD. Additional therapy recommended. CM/SW to eval. Unclear if patient would be agreeable. Charges/Coding Visit Charges Inpatient E&M: 53957 Subs Hosp L1 05/23/23 1315 <Electronically signed by Galen Souza DO> Cosigner Signature (if applicable): CC: ~ Signed [facility] Work Phone: [phone]) 749-542710-24-2023 Progress note Author Galen Souza [facility] May 22, 2023 1:20pm Note Date/Time May 22, 2023 7 :51am [facility] Medical Records Department [address] [place] [address] Progress Note - Hospitalist 05/22/23 0751 MR#: [id number] Acct: [id number] Name: MESSI WALDROP Rep #:[id number] : 1955 68 From: Galen Souza DO PCP: Dr. John Springer MD Status:AD M IN Location: [address] Reason for Visit Reason for Visit: Diagnoses Alcohol use, unspecified with withdrawal delirium (05/16/23) Subjective Subjective Denies complaints. Says he's going home. Objective Data Objective Data Vital Signs: Vital Signs Temp Pulse Resp BP Pulse Ox O2 Del Method O2 Flow Rate 36.8 C 85 16 130/70 H 97 Room Air 2 05/22/23 02:31 05/22/23 02:31 05/22/23 02:31 05/22/23 02:31 05/22/23 02:31 05/22/23 02:31 05/20/23 21:57 Oxygen Flow Rate (L/min) 2 Oxygen Delivery Method Room Air Weight: 72 kg Body Mass Index (BMI) 22.7 Intake & Output: Intake and Output for Last 24 Hours 05/20/23 05/21/23 05/22/23 23:59 23:59 23:59 Intake Total 750 / 850 750 / 750 Output Total 300 / 300 Balance 450 / 550 750 / 750 Medical Nutrition Assessment Dietitian: Malnutrition Criteria Met Start: 05/17/23 10:15 Freq: Status: Active Protocol: Document 05/17/23 10:15 AG (Rec: 05/17/23 10:15 [id number]) Nutrition Malnutrition Evidence of Malnutrition Exists Yes Malnutrition (moderate): Chronic Evidenced By Suboptimal Energy Intake ( Moderate),Weight Loss (Severe) ,Physical Changes (Moderate) Clinical Problem Chronic Disease or Condition Related Malnutrition Etiology chronic, moderate malnutrition related to inadequate protein /calorie intake d/t excessive alcohol consumption Signs/Symptoms as evidenced by unintentional 9.5% wt loss x 5 months, estimated energy intake meeting <75% of estimated energy needs > 3 months; moderate muscle wasting/fat loss per physical exam Status Active Problem Recommendation Dietitian Recommendations/Changes continue regular diet; will add ensure compact TID w/ meals d/t chronic malnutrition Lab / Micro Data 05/16/23 10:08 05/16/23 10:08 Physical Exam Const alert and no apparent distress Constitutional Narrative: more alert today. cachectic. Resp normal respiratory effort, no retractions, no use of accessory muscles and clearto auscultation bilaterally Cardio regular rate, regular rhythm, S1 normal heart sound and S2 normal heart sound GI normal to inspection, nondistended, normoactive bowel sounds, soft to palpation,non-tender and non-distended Assessment & Plan Assessment/Plan (1) Alcohol withdrawal delirium, acute, hyperactive: PLAN: Admitted for alcohol withdrawal treatment and started on phenobarbital. Condition worsened and pt required dexmedetomidine gtt to get him through delirium tremens. On thiamine and folate Addiction medicine to see Phenobarbital held 05/21 due to somnolence (2) Malnutrition: PLAN: consult nutrition. (3) Debility: PLAN: PT OT cannot rule out need for SNF. PLAN: Plan Chronic conditions: * Duodenal ulcers: Continue with PPI and sucralfate. * History of anemia secondary to bleeding duodenal ulcer. Hemoglobin has trended upwards and currently 10.4. * Hyponatremia likely associated with alcohol consumption. Monitor for now. Charges/Coding Visit Charges Inpatient E&M: 57743 Subs Hosp L2 05/22/23 1320 <Electronically signed by Galen Souza DO> Cosigner Signature (if applicable): CC: ~ Signed [facility] Work Phone: [phone] 544-666710-23-2023 Progress note Author Galen Souza [facility] May 21, 2023 1:40pm Note Date/Time May 21, 2023 8 :33am [facility] Medical Records Department [address] [place] [address] Progress Note - Hospitalist 05/21/2327 MR#: [id number] Acct: [id number] Name: MESSI WALDROP Rep #:[id number] : 1955 68 From: Galen Souza DO PCP: Dr. John Springer MD Status:AD M IN Location: [place] [id number] Reason for Visit Reason for Visit: Diagnoses Alcohol use, unspecified with withdrawal delirium (05/16/23) Subjective Subjective Groggy today. No events overnight. Objective Data Objective Data Vital Signs: Vital Signs Temp Pulse Resp BP Pulse Ox O2 Del Method O2 Flow Rate 37.0 C 98 16 126/74 H 98 Room Air 2 05/21/23 02:45 05/21/23 02:45 05/21/23 02:45 05/21/23 02:45 05/21/23 02:45 05/21/23 02:45 05/20/23 21:57 Oxygen Flow Rate (L/min) 2 Oxygen Delivery Method Room Air Weight: 72 kg Body Mass Index (BMI) 22.7 Intake & Output: Intake and Output for Last 24 Hours 05/19/23 05/20/23 05/21/23 23:59 23:59 23:59 Intake Total 750 / 850 100 / 100 Output Total 1600 / 1600 300 / 300 Balance -1600 / -1600 450 / 550 100 / 100 Medical Nutrition Assessment Dietitian: Malnutrition Criteria Met Start: 05/17/23 10:15 Freq: Status: Active Protocol: Document 05/17/23 10:15 AG (Rec: 05/17/23 10:15 AG [id number]) Nutrition Malnutrition Evidence of Malnutrition Exists Yes Malnutrition (moderate): Chronic Evidenced By Suboptimal Energy Intake ( Moderate),Weight Loss (Severe) ,Physical Changes (Moderate) Clinical Problem Chronic Disease or Condition Related Malnutrition Etiology chronic, moderate malnutrition related to inadequate protein /calorie intake d/t excessive alcohol consumption Signs/Symptoms as evidenced by unintentional 9.5% wt loss x 5 months, estimated energy intake meeting <75% of estimated energy needs > 3 months; moderate muscle wasting/fat loss per physical exam Status Active Problem Recommendation Dietitian Recommendations/Changes continue regular diet; will add ensure compact TID w/ meals d/t chronic malnutrition Lab / Micro Data 05/16/23 10:08 05/16/23 10:08 Physical Exam Const no apparent distress Constitutional Narrative: groggy. opens eyes to voice. HEENT head/scalp atraumatic and moist oral mucous membranes Resp normal respiratory effort, no retractions, no use of accessory muscles and clearto auscultation bilaterally Cardio regular rate, regular rhythm, S1 normal heart sound and S2 normal heart sound Neuro oriented x3 Assessment & Plan Assessment/Plan (1) Alcohol withdrawal delirium, acute, hyperactive: PLAN: Admitted for alcohol withdrawal treatment and started on phenobarbital. Condition worsened and pt required dexmedetomidine gtt to get him through delirium tremens. On thiamine and folate Addiction medicine to see Phenobarbital held this AM due to somnolence PLAN: Plan Chronic conditions: * Duodenal ulcers: Continue with PPI and sucralfate. * History of anemia secondary to bleeding duodenal ulcer. Hemoglobin has trended upwards and currently 10.4. * Hyponatremia likely associated with alcohol consumption. Monitor for now. Charges/Coding Visit Charges Inpatient E&M: 05865 Subs Hosp L2 05/21/23 1340 <Electronically signed by Galen Souza DO> Cosigner Signature (if applicable): CC: ~ Signed [facility] Work Phone: [phone]) 244-761710-22-2023 Progress note Author Hilaria Myrick [facility] May 20, 2023 8:19am Note Date/Time May 20, 2023 8 :19am [facility] Medical Records Department [address] [place] [address] Progress Note - Hospitalist 05/20/23 0816 MR#: [id number] Acct: [id number] Name: MESSI WALDROP Rep #:[id number] : 1955 68 From: Hilaria Myrick DO PCP: Dr. John Springer MD Status:AD M IN Location: [facility] [facility] Subjective Subjective Patient was seen and examined this morning, he appears to be sleepy, he does notrespond to specific questions but he does not appear to be in any distress. Objective Data Objective Data Vital Signs: Vital Signs Temp Pulse Resp BP Pulse Ox O2 Del Method 97.8 F 96 16 156/80 H 100 Room Air 05/20/23 05:38 05/20/23 05:38 05/20/23 05:38 05/20/23 05:38 05/20/23 05:38 05/20/23 05:38 Oxygen Delivery Method Room Air Weight: 72 kg Body Mass Index (BMI) 22.7 Intake & Output: Intake and Output for Last 24 Hours 05/18/23 05/19/23 05/20/23 23:59 23:59 23:59 Intake Total 151.46 / 151.46 200 / 200 Output Total 650 / 650 1600 / 1600 300 / 300 Balance -498.54 / -498.54 -1600 / -1600 -100 / -100 Medical Nutrition Assessment Dietitian: Malnutrition Criteria Met Start: 05/17/23 10:15 Freq: Status: Active Protocol: Document 05/17/23 10:15 (Rec: 05/17/23 10:15 [id number]) Nutrition Malnutrition Evidence of Malnutrition Exists Yes Malnutrition (moderate): Chronic Evidenced By Suboptimal Energy Intake ( Moderate),Weight Loss (Severe) ,Physical Changes (Moderate) Clinical Problem Chronic Disease or Condition Related Malnutrition Etiology chronic, moderate malnutrition related to inadequate protein /calorie intake d/t excessive alcohol consumption Signs/Symptoms as evidenced by unintentional 9.5% wt loss x 5 months, estimated energy intake meeting <75% of estimated energy needs > 3 months; moderate muscle wasting/fat loss per physical exam Status Active Problem Recommendation Dietitian Recommendations/Changes continue regular diet; will add ensure compact TID w/ meals d/t chronic malnutrition Lab / Micro Data 05/16/23 10:08 05/16/23 10:08 Physical Exam Narrative no apparent distress and average body habitus General Appearance: Patient appears older than his stated age Orientation / Consciousness: Patient is lethargic, he does not appear to be in any distress normocephalic, head/scalp atraumatic and moist oral mucous membranes Eyes PERRL, EOMs intact bilaterally and conjunctivae normal Neck supple, no JVD, thyroid normal and no carotid bruits General: trachea midline Resp normal respiratory effort, no retractions, no use of accessory muscles and clearto auscultation bilaterally Auscultation: Negative for rales, rhonchi or wheezes Cardio regular rate, regular rhythm, S1 normal heart sound, S2 normal heart sound, no murmurs, no rub and no gallops GI normal to inspection, nondistended, normoactive bowel sounds, soft to palpation,non-tender and non-distended Extremity no clubbing, cyanosis or edema Skin no rashes or lesions noted General Skin Exam: no breakdown Neuro CN's II-XII intact bilaterally, no focal motor deficits and no sensory deficits noted Sensorium / Orientation: Patient is lethargic, he is in no distress Psych Patient is lethargic, he is in no distress Assessment & Plan Assessment/Plan (1) Alcohol withdrawal delirium, acute, hyperactive: (2) Desire for detoxification: PLAN: Plan #1 acute alcohol withdrawal with DTs-patient is not agitated today, continue thepatient on his phenobarbital taper, he will need to be seen by addiction social security specialist tomorrow #2 chronic alcoholism-complicates care, medical course, recovery, and prognosis,patient will need follow-up as an outpatient, he had stated he would like to do an inpatient detox program at [facility]. #3 past history of a pleural-based patchy opacity in the left pulmonary apex- chest x-ray was repeated on the patient, it was unchanged from a chest x-ray done on 12/12/2022 Total clinical time spent by myself addressing the patient's medical issues, reviewing all of the data, and collaborating with patient's care team: 25 minutes Charges/Coding Visit Charges Inpatient E&M: 08410 Subs Hosp L1 05/20/23 0819 <Electronically signed by Hilaria Myrick DO> Cosigner Signature (if applicable): CC: ~ Signed [facility] Work Phone: [phone]) 214-636910-21-2023 Progress note Author Hilaria Myrick [facility] May 19, 2023 10:29am Note Date/Time May 19, 2023 1 0:29am [facility] Medical Records Department [address] [place] [address] Progress Note - Hospitalist 05/19/231025 MR#: [id number] Acct: [id number] Name: MESSI WALDROP Rep #:[id number] : 1955 68 From: Hilaria Myrick DO PCP: Dr. John Springer MD Status:AD M IN Location: [place] [address]-1 Subjective Subjective Patient was seen and examined today, he appears in no distress he is resting quietly. Objective Data Objective Data Vital Signs: Vital Signs Temp Pulse Resp BP Pulse Ox O2 Del Method 98.3 F 94 22 H 121/59 H 100 Room Air 05/19/23 08:37 05/19/23 09:00 05/19/23 09:00 05/19/23 08:37 05/19/23 09:00 05/19/23 09:00 Oxygen Delivery Method Room Air Weight: 72.3 kg Body Mass Index (BMI) 22.8 Intake & Output: Intake and Output for Last 24 Hours 05/17/23 05/18/23 05/19/23 23:59 23:59 23:59 Intake Total 344.40 / 344.40 151.46 / 151.46 Output Total 750 / 750 650 / 650 950 / 950 Balance -405.60 / -405.60 -498.54 / -498.54 -950 / -950 Medical Nutrition Assessment Dietitian: Malnutrition Criteria Met Start: 05/17/23 10:15 Freq: Status: Active Protocol: Document 05/17/23 10:15 AG (Rec: 05/17/23 10:15 AG [id number]) Nutrition Malnutrition Evidence of Malnutrition Exists Yes Malnutrition (moderate): Chronic Evidenced By Suboptimal Energy Intake ( Moderate),Weight Loss (Severe) ,Physical Changes (Moderate) Clinical Problem Chronic Disease or Condition Related Malnutrition Etiology chronic, moderate malnutrition related to inadequate protein /calorie intake d/t excessive alcohol consumption Signs/Symptoms as evidenced by unintentional 9.5% wt loss x 5 months, estimated energy intake meeting <75% of estimated energy needs > 3 months; moderate muscle wasting/fat loss per physical exam Status Active Problem Recommendation Dietitian Recommendations/Changes continue regular diet; will add ensure compact TID w/ meals d/t chronic malnutrition Lab / Micro Data 05/16/23 10:08 05/16/23 10:08 Physical Exam Narrative alert, oriented x3, no apparent distress and average body habitus General Appearance: Patient appears older than his stated age Orientation / Consciousness: Patient is alert, he exhibits moderate confusion HEENT normocephalic, head/scalp atraumatic and moist oral mucous membranes Eyes PERRL, EOMs intact bilaterally and conjunctivae normal Neck supple, no JVD, thyroid normal and no carotid bruits General: trachea midline Resp normal respiratory effort, no retractions, no use of accessory muscles and clearto auscultation bilaterally Auscultation: Negative for rales, rhonchi or wheezes Cardio regular rate, regular rhythm, S1 normal heart sound, S2 normal heart sound, no murmurs, no rub and no gallops GI normal to inspection, nondistended, normoactive bowel sounds, soft to palpation,non-tender and non-distended Extremity no clubbing, cyanosis or edema Skin no rashes or lesions noted General Skin Exam: no breakdown Neuro CN's II-XII intact bilaterally, no focal motor deficits and no sensory deficits noted Sensorium / Orientation: awake, alert, oriented as to place Speech: speech normal Psych Patient exhibits moderate confusion Assessment & Plan Assessment/Plan (1) Desire for detoxification: PLAN: Plan #1 acute alcohol withdrawal with DTs-patient is not agitated today, continue thepatient on his phenobarbital taper, he will need to be seen by addiction social security specialist #2 chronic alcoholism-complicates care, medical course, recovery, and prognosis,patient will need follow-up as an outpatient, he had stated he would like to do an inpatient detox program at [facility]. #3 past history of a pleural-based patchy opacity in the left pulmonary apex- chest x-ray was repeated on the patient, it was unchanged from a chest x-ray done on 12/12/2022 Total clinical time spent by myself addressing the patient's medical issues, reviewing all of the data, and collaborating with patient's care team: 25 minutes Charges/Coding Visit Charges Inpatient E&M: 55247 Subs Hosp L1 05/19/23 1029 <Electronically signed by Hilaria Myrick DO> Cosigner Signature (if applicable): CC: ~ Signed [facility] Work Phone: 1(248) 316-356110-20-2023 Progress note Author Hilaria Myrick [facility] May 18, 2023 2:59pm Note Date/Time May 18, 2023 2 :57pm [facility] Medical Records Department [address] [place] [address] Progress Note - Hospitalist 05/18/23 1452 MR#: [id number] Acct: [id number] Name: MESSI WALDROP Rep #:[id number] : 1955 68 From: Hilaria Myrick DO PCP: Dr. John Springer MD Status:AD M IN Location: ICU ICU05-1 Subjective Subjective Patient was seen and examined today, he appears confused, he knows he is in the hospital but he does not know what month it is or what year it is. Patient actsout at times threatening nursing staff and myself, I am not sure if he is reallysincere about his threats. Objective Data Objective Data Vital Signs: Vital Signs Temp Pulse Resp BP Pulse Ox O2 Del Method 98.2 F 66 13 115/70 98 Room Air 05/18/23 14:00 05/18/23 14:00 05/18/23 14:00 05/18/23 14:00 05/18/23 14:00 05/18/23 14:00 Oxygen Delivery Method Room Air Weight: 72.1 kg Body Mass Index (BMI) 22.8 Intake & Output: Intake and Output for Last 24 Hours 05/16/23 05/17/23 05/18/23 23:59 23:59 23:59 Intake Total 242.18 / 242.18 344.40 / 344.40 151.46 / 151.46 Output Total 750 / 750 650 / 650 Balance 242.18 / 242.18 -405.60 / -405.60 -498.54 / -498.54 Medical Nutrition Assessment Dietitian: Malnutrition Criteria Met Start: 05/17/23 10:15 Freq: Status: Active Protocol: Document 05/17/23 10:15 AG (Rec: 05/17/23 10:15 [id number]) Nutrition Malnutrition Evidence of Malnutrition Exists Yes Malnutrition (moderate): Chronic Evidenced By Suboptimal Energy Intake ( Moderate),Weight Loss (Severe) ,Physical Changes (Moderate) Clinical Problem Chronic Disease or Condition Related Malnutrition Etiology chronic, moderate malnutrition related to inadequate protein /calorie intake d/t excessive alcohol consumption Signs/Symptoms as evidenced by unintentional 9.5% wt loss x 5 months, estimated energy intake meeting <75% of estimated energy needs > 3 months; moderate muscle wasting/fat loss per physical exam Status Active Problem Recommendation Dietitian Recommendations/Changes continue regular diet; will add ensure compact TID w/ meals d/t chronic malnutrition Lab / Micro Data 05/16/23 10:08 05/16/23 10:08 Physical Exam Narrative alert, oriented x3, no apparent distress and average body habitus General Appearance: Patient appears older than his stated age Orientation / Consciousness: Patient is alert, he exhibits moderate confusion HEENT normocephalic, head/scalp atraumatic and moist oral mucous membranes Eyes PERRL, EOMs intact bilaterally and conjunctivae normal Neck supple, no JVD, thyroid normal and no carotid bruits General: trachea midline Resp normal respiratory effort, no retractions, no use of accessory muscles and clearto auscultation bilaterally Auscultation: Negative for rales, rhonchi or wheezes Cardio regular rate, regular rhythm, S1 normal heart sound, S2 normal heart sound, no murmurs, no rub and no gallops GI normal to inspection, nondistended, normoactive bowel sounds, soft to palpation,non-tender and non-distended Extremity no clubbing, cyanosis or edema Skin no rashes or lesions noted General Skin Exam: no breakdown Neuro CN's II-XII intact bilaterally, no focal motor deficits and no sensory deficits noted Sensorium / Orientation: awake, alert, oriented as to place Speech: speech normal Psych Patient exhibits moderate confusion Assessment & Plan Assessment/Plan (1) Desire for detoxification: PLAN: Plan #1 acute alcohol withdrawal with DTs-patient remains moderately confused today but is directable somewhat, I will transfer the patient to [facility] and continue present phenobarbital dosing and Ativan as needed #2 chronic alcoholism-complicates care, medical course, recovery, and prognosis,patient will need follow-up as an outpatient, he states he would like to do an inpatient detox program at [facility]. #3 past history of a pleural-based patchy opacity in the left pulmonary apex- chest x-ray was repeated on the patient, it was unchanged from a chest x-ray done on 12/12/2022 Total clinical time spent by myself addressing the patient's medical issues, reviewing all of the data, and collaborating with patient's care team: 25 minutes Charges/Coding Visit Charges Inpatient E&M: 07266 Subs Hosp L1 05/18/23 8354 <Electronically signed by Hilaria Myrick DO> Cosigner Signature (if applicable): CC: ~ Signed [facility] Work Phone: 1(904) 801-737010-20-2023 Progress note Author Peter Escalante [facility] May 18, 2023 7:18am Note Date/Time May 18, 2023 7 :18am [facility] Medical Records Department [address] [place] [address] Progress Note - Icing Machine Operator 05/18/2315 MR#: [id number] Acct: [id number] Name: MESSI WALDROP Rep #:[id number] : 1955 68 From: Peter Escalante DO PCP: Dr. John Springer MD Status:AD M IN Location: ICU ICU05-1 Assessment & Plan Assessment/Plan (1) Desire for detoxification: PLAN: Plan RECOMMENDATIONS: 1. Continue phenobarbital taper and as needed Ativan. 2. Continue nicotine replacement therapy. 3. Encourage incentive spirometer use and mobilize patient as tolerated. 4. The patient is medically stable for transfer out of the intensive care unit. We will sign off at this time from a critical care perspective. IMPRESSIONS: 1. Acute alcohol withdrawal The patient was initially admitted to the hospital and placed on the medical surgical floor. Ultimately, he was transferred to the ICU for the initiation ofher Precedex infusion. However, this led to the patient becoming oversedated. The Precedex has been subsequently discontinued. Recommend continuing phenobarbital taper and as needed Ativan. Continue thiamine and folic acid. 2. History of duodenal ulcers with associated anemia/unspecified behavioral disorder Complicates care, management, recovery and prognosis. Continue supportive care as noted above. This note was generated with Digital Reasoning dictation software. It may contain incorrectwords, spelling, and punctuation that were not noted in checking the note beforesigning. Subjective Subjective The patient was seen and examined at the bedside this morning. Events from the last 24 hours have been reviewed. The patient is currently afebrile, hemodynamically stable and maintaining appropriate oxygen saturations on room air. The patient was transiently on Precedex for 3 hours overnight. He has been off of the aforementioned medications since 0 this morning. The patientremains inappropriate at times with staff. Objective Data Objective Data The patient's most recent lab work, culture data and imaging studies have all been personally reviewed. Vital Signs: Vital Signs Temp Pulse Resp BP Pulse Ox O2 Del Method 98.5 F 69 17 110/61 99 Room Air 05/18/23 04:00 05/18/23 07:00 05/18/23 07:00 05/18/23 07:00 05/18/23 07:00 05/18/23 07:00 Oxygen Delivery Method Room Air Weight: 158 lb 15.253 oz Body Mass Index (BMI) 22.8 Intake & Output: Intake and Output for Last 24 Hours 05/16/23 05/17/23 05/18/23 23:59 23:59 23:59 Intake Total 242.18 / 242.18 344.40 / 344.40 151.46 / 151.46 Output Total 750 / 750 300 / 300 Balance 242.18 / 242.18 -405.60 / -405.60 -148.54 / -148.54 Medical Nutrition Assessment Dietitian: Malnutrition Criteria Met Start: 05/17/23 10:15 Freq: Status: Active Protocol: Document 05/17/23 10:15 AG (Rec: 05/17/23 10:15 AG [id number]) Nutrition Malnutrition Evidence of Malnutrition Exists Yes Malnutrition (moderate): Chronic Evidenced By Suboptimal Energy Intake ( Moderate),Weight Loss (Severe) ,Physical Changes (Moderate) Clinical Problem Chronic Disease or Condition Related Malnutrition Etiology chronic, moderate malnutrition related to inadequate protein /calorie intake d/t excessive alcohol consumption Signs/Symptoms as evidenced by unintentional 9.5% wt loss x 5 months, estimated energy intake meeting <75% of estimated energy needs > 3 months; moderate muscle wasting/fat loss per physical exam Status Active Problem Recommendation Dietitian Recommendations/Changes continue regular diet; will add ensure compact TID w/ meals d/t chronic malnutrition Lab / Micro Data Attestation: I reviewed the patient's lab results. 05/16/23 10:08 05/16/23 10:08 Physical Exam Const alert and no apparent distress HEENT normocephalic and head/scalp atraumatic Eyes PERRL and EOMs intact bilaterally Neck supple General: trachea midline Chest inspection of chest normal Resp normal respiratory effort Auscultation: diminished lung sounds Cardio regular rate, regular rhythm, S1 normal heart sound and S2 normal heart sound GI normal to inspection, nondistended, normoactive bowel sounds Extremity no clubbing, cyanosis or edema Skin no rashes or lesions noted Neuro CN's II-XII intact bilaterally and no focal motor deficits Psych Mood & Affect: flat affect Charges/Coding Visit Charges Inpatient E&M: 97983 Subs Hosp L2 05/18/23 0718 <Electronically signed by Peter Escalante DO> Cosigner Signature (if applicable): CC: ~ Signed [facility] Work Phone: 1(482) 226-478310-19-2023 Progress note Author Hilaria Myrick [facility] May 17, 2023 6:14pm Note Date/Time May 17, 2023 6 :14pm [facility] Medical Records Department [address] [place] [address] Progress Note - Hospitalist 05/17/23 181 MR#: [id number] Acct: [id number] Name: MESSI WALDROP Rep #:[id number] : 1955 68 From: Hilaria Myrick DO PCP: Dr. John Springer MD Status:AD M IN Location: ICU ICU05-1 Subjective Subjective Patient was seen and examined today, he had to be transferred into ICU yesterdaybecause of DTs, patient was on Precedex only few hours and had to be stopped dueto excessive sedation, at the time of this dictation, patient is alert he was placed back on his phenobarb taper and CIWA scores will be monitored. Objective Data Objective Data Vital Signs: Vital Signs Temp Pulse Resp BP Pulse Ox O2 Del Method 97.6 F L 70 14 97/56 L 99 Room Air 05/17/23 16:00 05/17/23 17:59 05/17/23 17:59 05/17/23 17:59 05/17/23 17:59 05/17/23 17:59 Oxygen Delivery Method Room Air Weight: 70.6 kg Body Mass Index (BMI) 22.3 Intake & Output: Intake and Output for Last 24 Hours 05/15/23 05/16/23 05/17/23 23:59 23:59 23:59 Intake Total 242.18 / 242.18 344.40 / 344.40 Output Total 750 / 750 Balance 242.18 / 242.18 -405.60 / -405.60 Medical Nutrition Assessment Dietitian: Malnutrition Criteria Met Start: 05/17/23 10:15 Freq: Status: Active Protocol: Document 05/17/23 10:15 AG (Rec: 05/17/23 10:15 AG [id number]) Nutrition Malnutrition Evidence of Malnutrition Exists Yes Malnutrition (moderate): Chronic Evidenced By Suboptimal Energy Intake ( Moderate),Weight Loss (Severe) ,Physical Changes (Moderate) Clinical Problem Chronic Disease or Condition Related Malnutrition Etiology chronic, moderate malnutrition related to inadequate protein /calorie intake d/t excessive alcohol consumption Signs/Symptoms as evidenced by unintentional 9.5% wt loss x 5 months, estimated energy intake meeting <75% of estimated energy needs > 3 months; moderate muscle wasting/fat loss per physical exam Status Active Problem Recommendation Dietitian Recommendations/Changes continue regular diet; will add ensure compact TID w/ meals d/t chronic malnutrition Lab / Micro Data 05/16/23 10:08 05/16/23 10:08 Radiography Diagnostic Testing: Radiology Impression Chest X-Ray 05/16/23 19:21 IMPRESSION: No acute radiographic abnormalities. Chronic fracture deformity of the left posterolateral ninth rib, possibly pathologic. Similar appearance to prior chest radiograph on 12/12/2022. Biapical pleural parenchymal scarring/atelectasis, similar in appearance to prior. Electronically Signed: Markie Ba MD at 19:55 EDT , Physical Exam Const alert, oriented x3, no apparent distress and average body habitus General Appearance: cooperative and well developed Orientation / Consciousness: awake, oriented to person, oriented to place and oriented to time HEENT normocephalic, head/scalp atraumatic and moist oral mucous membranes Eyes PERRL, EOMs intact bilaterally and conjunctivae normal Neck supple, no JVD, thyroid normal and no carotid bruits General: trachea midline Resp normal respiratory effort, no retractions, no use of accessory muscles and clearto auscultation bilaterally Auscultation: Negative for rales, rhonchi or wheezes Cardio regular rate, regular rhythm, S1 normal heart sound, S2 normal heart sound, no murmurs, no rub and no gallops GI normal to inspection, nondistended, normoactive bowel sounds, soft to palpation,non-tender and non-distended Extremity no clubbing, cyanosis or edema Skin no rashes or lesions noted General Skin Exam: no breakdown Neuro CN's II-XII intact bilaterally, no focal motor deficits and no sensory deficits noted Sensorium / Orientation: awake, alert, oriented to person and oriented to place Speech: speech normal Psych affect normal Assessment & Plan Assessment/Plan (1) Desire for detoxification: PLAN: Plan # 1 acute alcohol withdrawal with DTs patient has little symptoms of alcohol withdrawal at this time, he was restarted on phenobarb taper and will be given Ativan as needed #2 chronic alcoholism-complicates care, medical course, recovery, and prognosis,patient will need follow-up as an outpatient, he states he would like to do an inpatient detox program at [facility]. #3 past history of a pleural-based patchy opacity in the left pulmonary apex- chest x-ray was repeated on the patient, it was unchanged from a chest x-ray done on 12/12/2022 Total clinical time spent by myself addressing the patient's medical issues, reviewing all of the data, and collaborating with patient's care team: 35 minutes Charges/Coding Visit Charges Inpatient E&M: 86850 Subs Hosp L2 05/17/231813 <Electronically signed by Hilaria Myrick DO> Cosigner Signature (if applicable): CC: ~ Signed [facility] Work Phone: 1(561) 356-658910-19-2023 Consult note Author Peter Escalante [facility] May 17, 2023 9:49am Note Date/Time May 17, 2023 9 :22am [facility] Medical Records Department [address] [place] [address] Consultation - Icing Machine Operator 05/17/23 0918 MR#: [id number] Acct: [id number] Name: MESSI WALDROP Rep #:[id number] : 1955 68 From: Peter Escalante DO PCP: Dr. John Springer MD Status:AD M IN Location: ICU ICU05-1 Assessment & Plan Assessment/Plan (1) Desire for detoxification: PLAN: Plan RECOMMENDATIONS: 1. Continue to hold Precedex. 2. Once the patient's lethargy improves, resume phenobarbital taper and as needed Ativan. 3. Continue nicotine replacement therapy. 4. Encourage incentive spirometer use and mobilize patient as tolerated. IMPRESSIONS: 1. Acute alcohol withdrawal The patient was initially admitted to the hospital and placed on the medical surgical floor. Ultimately, he was transferred to the ICU for the initiation ofher Precedex infusion. However, this led to the patient becoming oversedated. The Precedex has been subsequently discontinued. Recommend holding all sedatingmedications for now until the patient's lethargy improves. Following this, resume phenobarbital taper and as needed Ativan. Continue thiamine and folic acid. 2. History of duodenal ulcers with associated anemia/unspecified behavioral disorder Complicates care, management, recovery and prognosis. Continue supportive care as noted above. This note was generated with Digital Reasoning dictation software. It may contain incorrectwords, spelling, and punctuation that were not noted in checking the note beforesigning. HPI Consult Data Date of Consult: 05/17/23 HPI Narrative Reason for Consultation: Alcohol withdrawal HPI Narrative: The patient is a 68-year-old male, with a history as outlined below, who presented to the emergency department on May 16 for elective admission for alcohol withdrawal. The patient does have an extensive, prolonged alcohol dependency history with associated legal issues related to his use. He has beenadmitted several times to the hospital for alcohol detoxification. No additional history could be obtained from the patient this morning. The patient was initially admitted to the hospital on the medical surgical floor, where he was placed on a phenobarbital taper and as needed Ativan. He has been maintained on thiamine and folic acid. According to documentation, thepatient became increasingly agitated overnight, for which he was transferred to the medical intensive care unit to be initiated on a Precedex infusion. Although the patient was initially started on Precedex, the medication was discontinued completely early this morning as the patient was far too sedated. Heremains lethargic this morning. Chemistry profile yesterday was notable for a sodium of 128 and chloride of 93. [facility] Medical History Acute blood loss anemia Alcohol withdrawal Anxiety Anxiety and depression At high risk for malnutrition Behavior concern in adult Chewing tobacco use COPD (chronic obstructive pulmonary disease) Depression ETOH abuse GI bleed History of cancer tonsil Hypertension Hyponatremia Irregular heart beat Smoker Substance abuse Home Medications ibuprofen-diphenhydramine citrate 200 mg-38 mg tablet (Ibuprofen PM) 2 cap PO QHS 05/16/23 [History Last Taken 05/15/23] melatonin 5 mg tablet 10 mg PO QHS 05/16/23 [History Last Taken 05/15/23] Allergy/AdvReac Type Severity Reaction Status Date / Time poison rich extract Allergy Mild RASH Verified 05/16/23 09:41 Family History Mother Diabetes Father Diabetes Brother Colon cancer Surgical History History of tonsillectomy and adenoidectomy Social History household members: other details: Lives with his son. Smoking Status: Former smoker Smokeless tobacco user: chewing tobacco and other alcohol intake: current alcohol intake frequency: 3 or more drinks per day details: 8-10 beers daily coupled with hard liquor. substance use type: does not use ROS Review of Systems ROS Unobtainable: due to mental status Physical Exam Const no apparent distress General Appearance: lethargic HEENT normocephalic and head/scalp atraumatic Eyes PERRL and EOMs intact bilaterally Neck supple General: trachea midline Chest inspection of chest normal Resp normal respiratory effort Auscultation: diminished lung sounds Cardio S1 normal heart sound and S2 normal heart sound Rate: bradycardia GI normal to inspection, nondistended, normoactive bowel sounds Extremity no clubbing, cyanosis or edema Skin no rashes or lesions noted Neuro no focal motor deficits Psych Mood & Affect: flat affect Lab / Micro Data 05/16/23 10:08 05/16/23 10:08 Labs: Laboratory Results - last 24 hr 05/16/23 10:08: WBC 5.6, RBC 3.60 L, Hgb 11.7 L, Hct 34.4 L, MCV 95.6 H, MCH 32.5 H, MCHC 34.0, RDW Std Deviation 48.8 H, RDW Coeff of Jesus 13.9, Plt Count 273, MPV 8.9, Immature Gran % (Auto) 0.500, Neut % (Auto) 87.7 H, Lymph % (Auto)5.7 L, Norman % (Auto) 5.7, Eos % (Auto) 0.2, Baso % (Auto) 0.2, Absolute Neuts (auto) 4.9, Absolute Lymphs (auto) 0.32 L, Nucleated RBC % 0, Differential Comment COMMENT, Sodium 128 L, Potassium 3.9, Chloride 93 L, Carbon Dioxide 27.0, Anion Gap 8, BUN 7, Creatinine 1.29, Estim Creat Clear Calc 54.90, Est GFR(MDRD) Af Amer 71, Est GFR (MDRD) Non-Af 59 L, BUN/Creatinine Ratio 5.4 L, Glucose 92, Calcium 8.2 L, Total Bilirubin 0.20, AST 26, ALT 18, Alkaline Phosphatase 81, Total Protein 6.6, Albumin 3.1 L, Globulin 3.5, Albumin/GlobulinRatio 0.9, Ethyl Alcohol 77.0 05/16/23 13:08: Urine Opiates Screen NEGATIVE, Urine Methadone Screen NEGATIVE, Ur Barbiturates Screen NEGATIVE, Ur Phencyclidine Scrn NEGATIVE, Ur AmphetaminesScreen NEGATIVE, MDMA (Ecstasy) Screen NEGATIVE, U Benzodiazepines Scrn NEGATIVE, Urine Cocaine Screen NEGATIVE, U Cannabinoids Screen NEGATIVE, Ur DrugScreen Comment Radiology Impression Brain CT 05/16/23 10:07 IMPRESSION: 1. No acute intracranial process. 2. Frontal scalp soft tissue hematoma. 3. Chronic involutional changes of the brain. Electronically Signed: Javier Martinez MD at 10:55 EDT , Chest X-Ray 05/16/23 19:21 IMPRESSION: No acute radiographic abnormalities. Chronic fracture deformity of the left posterolateral ninth rib, possibly pathologic. Similar appearance to prior chest radiograph on 12/12/2022. Biapical pleural parenchymal scarring/atelectasis, similar in appearance to prior. Electronically Signed: Markie Ba MD at 19:55 EDT , Charges/Coding Visit Charges Inpatient E&M: 95860 Init Hosp L2 05/17/23 0949 <Electronically signed by Peter Escalante DO> Cosigner Signature (if applicable): CC: SOHA Aldrich; Dr. Truman Glaser MD; Dr. John Springer MD; Dr. Peter Escalante DO; Dr. Jerri Ornelas MD; Dr. Michele Abdalla MD; Dr. Mann Jaime MD~ Signed [facility] Work Phone: [phone]) 621-242710-19-2023 Progress note Author Joey Luong [facility] May 17, 2023 12:32am Note Date/Time May 16, 2023 1 1:27pm [facility] Medical Records Department [address] [place] [address] Progress Note - Hospitalist 05/16/23 2320 MR#: [id number] Acct: [id number] Name: MESSI WALDROP Rep #:[id number] : 1955 68 From: Joey Max PCP: Dr. John Springer MD Status:AD M IN Location: ICU ICU05-1 Hospitalist Note The nurse called me to evaluate the patient as he is still aggressive, disoriented, trying to get out of the bed, incoherent speech despite heavy doseof phenobarbital and Ativan. Earlier in the evening patient was started on Ativan protocol as per CIWA besides phenobarbital but is still symptoms are not controlled. Patient also on Vistaril, Gabapentin, trazodone for acute alcohol withdrawal protocol. Patient had fall and has bruise on the forehead and around eyes. As per the nurse staff, he fell down in the court room. Patient states he feels anxious, could not stop talking, having visual and auditory hallucinations. Sometimes his speech is incomprehensible. Last CIWA score is 10. CT head shows no acute intracranial process but frontal's scalp soft tissue hematoma. Patient also has mild to moderate muscle atrophy of thigh and calf muscles and loss of subcutaneous fat suggestive of mild chronic protein calorie malnutrition Heart rate 91/min. Blood pressure 149/83. No hypoxia or tachypnea. After evaluation, the decision is made to transfer to ICU for Precedex drip. Hold phenobarbital patient is on Precedex drip. Icing Machine Operator consulted requested. Clinical Impression(s) from Imaging Studies Brain CT 05/16/23 10:07 IMPRESSION: 1. No acute intracranial process. 2. Frontal scalp soft tissue hematoma. 3. Chronic involutional changes of the brain. Electronically Signed: Javier Martinez MD at 10:55 EDT , Chest X-Ray 05/16/23 19:21 IMPRESSION: No acute radiographic abnormalities. Chronic fracture deformity of the left posterolateral ninth rib, possibly pathologic. Similar appearance to prior chest radiograph on 12/12/2022. Biapical pleural parenchymal scarring/atelectasis, similar in appearance to prior. Electronically Signed: Markie Ba MD at 19:55 EDT , 05/16/237 <Electronically signed by Joey Luong MD> Cosigner Signature (if applicable): CC: ~ Signed ADDENDUM by Dr. Joey Luogn MD on 05/17/23 at 0032 Addendum Typographical mistake correction: Hold phenobarbital while patient is on Precedex drip 05/17/23 003<Electronically signed by Joey Luong MD> Cosigner Signature (if applicable): cc: ~* Signed [facility] Work Phone: 1(708) 872-770810-18-2023 History and physical note Author Hilaria Myrick [facility] May 16, 2023 6:50pm Note Date/Time May 16, 2023 6 :25pm [facility] Medical Records Department [address] [place] [address] H&P Exam - Hospitalist 05/16/23 1820 MR#: [id number] Acct: [id number] Name: MESSI WALDROP Rep #:[id number] : 1955 68 From: Hilaria Myrick DO PCP: Dr. John Springer MD Status:AD M IN Location: [place] [address] HPI - General General Date of Admission: 05/16/23 Date of Service: 05/16/23 Chief Complaint: Desire for detoxification, chronic alcoholism HPI Narrative MESSI WALDROP, is a 68 M who presents to the emergency room at [facility] requesting services for alcohol detox, patient is vague about how much he drinks on a daily basis-he states he drinks vodka sometimes and sometimes he drinks beer. Patient's last drink was yesterday. Patient was in court a few days ago and fell because he was drinking too much and contused his forehead. He was at court due to a DUI. Patient has been here many times this year for alcohol detox. I talked with addiction social security specialist today about the patient and they confirmed that the patient went to [facility] for follow-up after one of his stays at the hospital for detox, he showed up intoxicated at [facility]. Labs done in the emergency room included a CBC which was abnormal for hemoglobinof 11.7, patient's sodium was low at 128, liver enzymes are unremarkable. Patient's tox screen was negative, patient was at the alcohol level was 77. Patient will be admitted to [facility] for alcohol detox services, he will be seen by addiction social security specialist, orders were entered using the alcohol detox order set. [facility] Medical History Acute blood loss anemia Alcohol withdrawal Anxiety Anxiety and depression At high risk for malnutrition Behavior concern in adult Chewing tobacco use COPD (chronic obstructive pulmonary disease) Depression ETOH abuse GI bleed History of cancer tonsil Hypertension Hyponatremia Irregular heart beat Smoker Substance abuse Home Medications ibuprofen-diphenhydramine citrate 200 mg-38 mg tablet (Ibuprofen PM) 2 cap PO QHS 05/16/23 [History Last Taken 05/15/23] melatonin 5 mg tablet 10 mg PO QHS 05/16/23 [History Last Taken 05/15/23] Allergy/AdvReac Type Severity Reaction Status Date / Time poison rich extract Allergy Mild RASH Verified 05/16/23 09:41 Family History Mother Diabetes Father Diabetes Brother Colon cancer Surgical History History of tonsillectomy and adenoidectomy Social History household members: other details: Lives with his son. Smoking Status: Former smoker Smokeless tobacco user: chewing tobacco and other alcohol intake: current alcohol intake frequency: 3 or more drinks per day details: 8-10 beers daily coupled with hard liquor. substance use type: does not use ROS Constitutional Constitutional: Denies anorexia, change in weight, chills, fatigue, fever(s), malaise, night sweats or weakness Eyes Eyes: Denies blurry vision, change in vision, discharge from eye(s) or eye pain Cardiovascular Cardiovascular: Denies chest pain, claudication, dyspnea on exertion, edema or palpitations Respiratory/Chest Respiratory/Chest: Denies cough, hemoptysis, shortness of breath at rest or shortness of breath with exertion Gastrointestinal Gastrointestinal: Denies abdominal pain, constipation, diarrhea, hematemesis, hematochezia, melena, nausea or vomiting Genitourinary Genitourinary: Denies dysuria, hematuria, urinary frequency, urinary hesitancy, urinary incontinence or urinary urgency Musculoskeletal Musculoskeletal: Denies back pain, joint pain, joint stiffness, joint swelling, myalgias or neck pain Neurologic Neurologic: Denies abnormal gait, abnormal speech, confusion, disequilibrium, dizziness, focal weakness, headache(s), loss of vision, numbness, other visual disturbances, paresthesias, syncope or tingling Psychiatric Psychiatric: Denies anxiety, cognitive impairment, depression, irritability, mood swings or suicidal ideation Endocrine Endocrinology: Denies change in body appearance, cold intolerance, excessive sweating, heat intolerance, polydipsia or polyuria Hematologic/Lymphatic Hematologic/Lymphatic: Denies none, anemia, easy bleeding, easy bruising or lymphadenopathy Allergic/Immunologic Allergic/Immunologic: Denies rhinitis, urticaria, eczemia or asthma Vital Signs Vital Signs Vital Signs: 05/16/23 09:40 05/16/23 11:50 05/16/23 15:35 Temperature 97.0 F L 98.3 F Temperature Source Temporal Oral Pulse Rate 88 97 80 Respiratory Rate 15 16 18 Respiratory Effort Respiratory Depth Respiratory Pattern Blood Pressure 157/109 H 161/105 H Blood Pressure Mean 125 123 Blood Pressure Source Monitor Blood Pressure Position Semi-Fowlers Blood Pressure Location Left Arm Pulse Ox 100 100 100 Oxygen Delivery Method Room Air Room Air Room Air 05/16/23 16:15 05/16/23 18:15 Temperature 98.8 F Temperature Source Oral Pulse Rate 101 H Respiratory Rate 16 Respiratory Effort Normal Non-Labored Respiratory Depth Normal Respiratory Pattern Normal Blood Pressure 144/96 H Blood Pressure Mean 112 Blood Pressure Source Monitor Blood Pressure Position Semi-Fowlers Blood Pressure Location Left Arm Pulse Ox 100 100 Oxygen Delivery Method Room Air Room Air Weight Weight: 69.944 kg Body Mass Index (BMI) 22.1 Physical Exam Const alert, oriented x3, no apparent distress and average body habitus General Appearance: cooperative, well kempt and well developed Orientation / Consciousness: awake, oriented to person, oriented to place and oriented to time HEENT normocephalic and moist oral mucous membranes HEENT Narrative: Patient has an area of ecchymosis in the middle of his forehead Eyes PERRL, EOMs intact bilaterally and conjunctivae normal Neck supple, no JVD, thyroid normal and no carotid bruits General: trachea midline Resp normal respiratory effort, no retractions, no use of accessory muscles and clearto auscultation bilaterally Auscultation: Negative for rales, rhonchi or wheezes Cardio regular rate, regular rhythm, S1 normal heart sound, S2 normal heart sound, no murmurs, no rub and no gallops GI normal to inspection, nondistended, normoactive bowel sounds, soft to palpation,non-tender and non-distended Extremity no clubbing, cyanosis or edema Skin no rashes or lesions noted General Skin Exam: no breakdown Neuro oriented x3, CN's II-XII intact bilaterally, moves all extremities, no focal motor deficits and no sensory deficits noted Sensorium / Orientation: awake, alert, oriented to person, oriented to place andoriented to time Speech: speech normal Psych affect normal Results Lab / Micro Data 05/16/23 10:08 05/16/23 10:08 Labs: Laboratory Results - last 24 hr 05/16/23 10:08: WBC 5.6, RBC 3.60 L, Hgb 11.7 L, Hct 34.4 L, MCV 95.6 H, MCH 32.5 H, MCHC 34.0, RDW Std Deviation 48.8 H, RDW Coeff of Jesus 13.9, Plt Count 273, MPV 8.9, Immature Gran % (Auto) 0.500, Neut % (Auto) 87.7 H, Lymph % (Auto)5.7 L, Norman % (Auto) 5.7, Eos % (Auto) 0.2, Baso % (Auto) 0.2, Absolute Neuts (auto) 4.9, Absolute Lymphs (auto) 0.32 L, Nucleated RBC % 0, Differential Comment COMMENT, Sodium 128 L, Potassium 3.9, Chloride 93 L, Carbon Dioxide 27.0, Anion Gap 8, BUN 7, Creatinine 1.29, Estim Creat Clear Calc 54.90, Est GFR(MDRD) Af Amer 71, Est GFR (MDRD) Non-Af 59 L, BUN/Creatinine Ratio 5.4 L, Glucose 92, Calcium 8.2 L, Total Bilirubin 0.20, AST 26, ALT 18, Alkaline Phosphatase 81, Total Protein 6.6, Albumin 3.1 L, Globulin 3.5, Albumin/GlobulinRatio 0.9, Ethyl Alcohol 77.0 05/16/23 13:08: Urine Opiates Screen NEGATIVE, Urine Methadone Screen NEGATIVE, Ur Barbiturates Screen NEGATIVE, Ur Phencyclidine Scrn NEGATIVE, Ur AmphetaminesScreen NEGATIVE, MDMA (Ecstasy) Screen NEGATIVE, U Benzodiazepines Scrn NEGATIVE, Urine Cocaine Screen NEGATIVE, U Cannabinoids Screen NEGATIVE, Ur DrugScreen Comment Radiology Impression Brain CT 05/16/23 10:07 IMPRESSION: 1. No acute intracranial process. 2. Frontal scalp soft tissue hematoma. 3. Chronic involutional changes of the brain. Electronically Signed: Javier Martinez MD at 10:55 EDT , Assessment & Plan Assessment/Plan (1) Desire for detoxification: PLAN: Plan # 1 acute alcohol withdrawal-patient has little symptoms of alcohol withdrawal at this time, he was admitted to [facility], orders were entered using alcohol detox order set, he will be seen by addiction social security specialist tomorrow #2 chronic alcoholism-complicates care, medical course, recovery, and prognosis,patient will need follow-up as an outpatient, he states he would like to do an inpatient detox program at [facility]. #3 past history of a pleural-based patchy opacity in the left pulmonary apex-I will start ordering a chest x-ray for the patient and any necessary for him to have an MRI, this abnormality was noted on a CT of the chest in November 2022. Total clinical time spent by myself addressing the patient's medical issues, reviewing all of the data, and collaborating with patient's care team: 55 minutes Charges/Coding Visit Charges Inpatient E&M: 21344 Init Hosp L2 05/16/23 1850 <Electronically signed by Hilaria Myrick DO> Cosigner Signature (if applicable): CC: Dr. John Springer MD; Dr. Hilaria Myrick DO~ Signed [facility] Work Phone: 1(550) 390-758010-18-2023 Discharge summary Author Papo Cochran [facility] May 16, 2023 5:06pm Note Date/Time May 16, 2023 1 0:19am [facility] Medical Records Department [address] [place] [address] Emergency Department Summary 05/16/23 MR#: [id number] Acct: [id number] Name: MESSI WALDROP Rep #:[id number] : 1955 68 From: Papo Cochran MD PCP: Dr. John Springer MD Status:AD M IN Location: [address] History of Present Illness Chief Complaint: Substance Abuse Informant: patient and family Narrative Narrative: Patient presents for detox. Patient has a long history of heavy alcohol use. Last detox was in February although he did not remember the date. He evidently is in legal troubles again for drinking and driving and this along with family pressure makes him want to get off the alcohol. I did specifically ask him if he wants to go through detoxor this is just pressure from his family. He did tell me that he wants detox. He also fell yesterday or day before in the court house. He was evidently laying there for a while because there was a large pool of blood around him when he was found. They do not know if he has fallen since because he basicallyhas been drunk and nearly unresponsive since the fall. He now has not drank since last night he is back awake. [facility] Medical History Acute blood loss anemia Alcohol withdrawal Anxiety Anxiety and depression At high risk for malnutrition Behavior concern in adult Chewing tobacco use COPD (chronic obstructive pulmonary disease) Depression ETOH abuse GI bleed History of cancer tonsil Hypertension Hyponatremia Irregular heart beat Smoker Substance abuse Home Medications ibuprofen-diphenhydramine citrate 200 mg-38 mg tablet (Ibuprofen PM) 2 cap PO QHS 05/16/23 [History Last Taken 05/15/23] melatonin 5 mg tablet 10 mg PO QHS 05/16/23 [History Last Taken 05/15/23] Allergy/AdvReac Type Severity Reaction Status Date / Time poison rich extract Allergy Mild RASH Verified 05/16/23 09:41 Family History Mother Diabetes Father Diabetes Brother Colon cancer Surgical History History of tonsillectomy and adenoidectomy Social History household members: other details: Lives with his son. Smoking Status: Former smoker Smokeless tobacco user: chewing tobacco and other alcohol intake: current alcohol intake frequency: 3 or more drinks per day details: 8-10 beers daily coupled with hard liquor. substance use type: does not use ROS ROS ED Constitutional Constitutional ED: Denies chills or fever(s) Eyes Eyes: Denies change in vision ENT ENT ED: Denies rhinorrhea Cardiovascular Cardiovascular: Denies chest pain Respiratory/Chest Respiratory/Chest: Denies cough or dyspnea Gastrointestinal Gastrointestinal: Denies abdominal pain, nausea or vomiting Genitourinary Genitourinary ED: Denies hematuria Musculoskeletal Musculoskeletal: Denies arthralgias, back pain, myalgias or neck pain Integumentary Reports Abrasions Neurologic Neurologic: Denies headache(s), paresthesias or weakness Hematologic/Lymphatic Hematologic/Lymphatic: Denies easy bleeding or easy bruising Allergic/Immunologic Allergic/Immunologic ED: Denies urticaria EXAM Physical Exam Narrative Exam Narrative: CONSTITUTIONAL: Patient is nontoxic in appearance. The patient looks comfortable. He does look somewhat chronically thin and frail. HEENT: Patient has large contusion with abrasion of the right forehead but nothing that needs suturing. He has some abrasion across his face but no tenderness there. EYES: Bilateral injection. Pupils are normal. CARDIOVASCULAR: Regular rate. Regular rhythm. No notable murmur. No JVD. RESPIRATORY: No respiratory distress. Breathing is unlabored. No wheezes. No rhonchi. No rales. No pain with a deep breath. GASTROINTESTINAL: Not distended. Bowel sounds are normal. No tenderness. No guarding. GENITOURINARY: No tenderness over the bladder. No CVA tenderness. MUSCULOSKELETAL: Multiple small abrasions and contusions no deformity NEUROLOGICAL: Patient is alert and appropriate. No flight of ideas. SKIN: No noted rashes but he does have the abrasion. No diaphoresis. PSYCHIATRIC: Patient is calm. Mood is appropriate. Const Vital Signs: 05/16/23 09:40 Temperature 97.0 F L Temperature Source Temporal Pulse Rate 88 Respiratory Rate 15 Blood Pressure 157/109 H Blood Pressure Mean 125 Pulse Ox 100 Oxygen Delivery Method Room Air MDM MDM MDM Narrative Medical decision making narrative: Patient's CBC shows mild anemia otherwise no marked abnormalities. Patient's electrolytes showed mildly low sodium. Patient's liver function test show no marked abnormalities. Patient's serum alcohol is 77. My independent interpretation the patient's CT scan of the head shows contusion on the forehead that is present clinically but no intracranial injury. He does have chronic changes. All of this is consistent with final read. I discussed case with the hospitalist. Patient will come in for detox. He evidently has had difficulty managing his detox before so inpatient therapy is appropriate. Lab Data Attestation: I reviewed the patient's lab results. Labs: Laboratory Results - last 24 hr 05/16/23 10:08 WBC 5.6 RBC 3.60 L Hgb 11.7 L Hct 34.4 L MCV 95.6 H MCH 32.5 H MCHC 34.0 RDW Std Deviation 48.8 H RDW Coeff of Jesus 13.9 Plt Count 273 MPV 8.9 Immature Gran % (Auto) 0.500 Neut % (Auto) 87.7 H Lymph % (Auto) 5.7 L Norman % (Auto) 5.7 Eos % (Auto) 0.2 Baso % (Auto) 0.2 Absolute Neuts (auto) 4.9 Absolute Lymphs (auto) 0.32 L Nucleated RBC % 0 Differential Comment COMMENT Sodium 128 L Potassium 3.9 Chloride 93 L Carbon Dioxide 27.0 Anion Gap 8 BUN 7 Creatinine 1.29 Estim Creat Clear Calc 54.90 Est GFR (MDRD) Af Amer 71 Est GFR (MDRD) Non-Af 59 L BUN/Creatinine Ratio 5.4 L Glucose 92 Calcium 8.2 L Total Bilirubin 0.20 AST 26 ALT 18 Alkaline Phosphatase 81 Total Protein 6.6 Albumin 3.1 L Globulin 3.5 Albumin/Globulin Ratio 0.9 Ethyl Alcohol 77.0 Radiography Diagnostic Testing: Clinical Impression(s) from Imaging Studies Brain CT 05/16/23 10:07 IMPRESSION: 1. No acute intracranial process. 2. Frontal scalp soft tissue hematoma. 3. Chronic involutional changes of the brain. Electronically Signed: Javier Martinez MD at 10:55 EDT , EKG Initial EKG: Comments: My independent interpretation the patient's EKG shows sinus rhythm with PVC. Overall rate of 78. No acute ST elevation or depression. NE interval, QRS duration and QTc are normal Management Discussion w/another healthcare provider: Hospitalist Discharge Plan Dx/Rx/DC Orders Clinical Impression: Acute alcoholism, Desire for detoxification, CHI (closed head injury), Pulmonary mass Disposition Disposition: Acute Care Hospital [facility] Discharge Date/Time: 05/16/23 15:23 What to do if you have Problems For any increased pain, shortness of breath, bleeding, nausea or vomiting, chestpain, or any unexpected problems, contact your Primary Care Provider. Call [facility] ([phone]) or report to the closest Emergency Room. Call 911 if necessary. 05/16/23 1706 <Electronically signed by Papo Cochran MD> Cosigner Signature (if applicable): CC: Dr. John Springer MD ~ Signed [facility] Work Phone: 1(659) 537-788009-18-2023 Discharge summary Author Sandhya [facility] April 16, 2023 6:36pm Note Date/Time April 16, 2023 3:38pm [facility] Medical Records Department [address] [place] [address] Emergency Department Summary 04/16/23 MR#: [id number] Acct: [id number] Name: MESSI WALDROP Rep #:[id number] : 1955 68 From: Sandhya Vasques PCP: Dr. John Springer MD Status:RE G ER Location: ED HPI History of Present Illness Chief Complaint: Weakness Informant: patient Narrative Narrative: Patient is a 68-year-old male with history of alcohol abuse presenting after a syncopal episode. Apparently patient was at the court house waiting for the court of appeals judge, he states he been sitting on the bench waiting for about an hour when he started feel lightheaded and the next thing he knew he woke up laying on the bench. He told his trade show manager to call 911. Patient's blood glucose was 58 per EMS. He was given oral glucose in route. Patient does have extensive history of alcohol abuse and alcohol withdrawal. He does not recall the last time he ate he also does not recall the last time he drank. Patient denies any other complaints at this time such as chest pain, shortness breath or difficulty breathing. PFSH PFSH Medical History Acute blood loss anemia Alcohol withdrawal Anxiety Anxiety and depression At high risk for malnutrition Behavior concern in adult Chewing tobacco use COPD (chronic obstructive pulmonary disease) Depression ETOH abuse GI bleed History of cancer tonsil Hypertension Hyponatremia Irregular heart beat Smoker Substance abuse Allergy/AdvReac Type Severity Reaction Status Date / Time poison rich extract Allergy Mild RASH Verified 04/16/23 14:42 Family History Mother Diabetes Father Diabetes Brother Colon cancer Surgical History History of tonsillectomy and adenoidectomy Social History household members: other details: Lives with his son. Smoking Status: Former smoker Smokeless tobacco user: chewing tobacco and other alcohol intake: current alcohol intake frequency: 3 or more drinks per day details: 8-10 beers daily coupled with hard liquor. substance use type: does not use ROS ROS ED Constitutional Constitutional ED: Denies chills or fever(s) ENT ENT ED: Denies rhinorrhea or sore throat Cardiovascular Cardiovascular: Denies chest pain Respiratory/Chest Respiratory/Chest: Denies cough Gastrointestinal Gastrointestinal: Reports nausea; Denies vomiting Musculoskeletal Musculoskeletal: Denies arthralgias or myalgias Integumentary Denies rash Neurologic Neurologic: Reports weakness and other Details: Shaky ; Denies headache(s) Psychiatric Psychiatric: Denies anxiety EXAM Physical Exam Const Vital Signs: 04/16/23 14:42 04/16/23 15:40 04/16/23 17:40 Temperature 97.1 F L Temperature Source Temporal Pulse Rate 104 H 96 92 Respiratory Rate 18 26 H 14 Blood Pressure 137/93 H 155/78 H 149/85 H Blood Pressure Mean 107 103 106 Pulse Ox 100 100 98 Oxygen Delivery Method Room Air Room Air Room Air Positive well nourished and well developed General Appearance ED: well developed and NAD HEENT Reports moist mucous membranes Eyes PERRL and EOMs intact bilaterally Neck supple Chest Wall inspection of chest normal and palpation of chest normal Resp normal respiratory effort and clear to auscultation bilaterally Cardio regular rhythm and no murmurs Rate: tachycardic GI normal to inspection, nondistended, normoactive bowel sounds and non-tender Extremity normal to inspection Neuro oriented x3 Neuro Narrative: Tremulous slightly confused such as does not know the last time he ate or drink Sensorium / Orientation: alert Motor Exam: general weakness Psych mental status grossly normal Skin no rashes or lesions noted Skin Narrative: Patient has a healing abrasion just above his left eye. States it was from a minor fall MDM MDM MDM Narrative Medical decision making narrative: Patient's blood sugar is now 43. Is given the remainder of oral glucose packet (15 g) as well as 2 things orange juice. Blood sugar is now 60. We will give abolus of D10 as well as IV thiamine and B12 orally. Patient's differential is also concerning for arrhythmia, DTs/alcohol withdraw and possible Warnicke's encephalopathy. After the bolus of D10 patient clinically is much improved. He is mentating much better. He is observed in the ER and his blood sugar I would recheck at approximately 1830 is now 120. Patient is now able to tell me he has not eaten in 2 to 3 days because I does have not been hungry. He does have access to food. He states that he is continue to drink beer but not drinking as heavily as before 180. While he is mildly hypertensive and has a mildly elevated heart rate he is mentating appropriately. I did discuss my concerns of him going intoDTs. He states he is probably can go home and have a beer. He is encouraged toreturn the emergency room if he would like to be reevaluated for alcohol detox. At this time I suspect patient's episode was associate with hypoglycemia. It seems to be secondary to decreased oral intake. I think he stable for dischargeat this time and does not require extended monitoring for his blood sugar. He is not on any insulin or diabetic medications that have to metabolized off. Lab Data Attestation: I reviewed the patient's lab results. Labs: Laboratory Results - last 24 hr 04/16/23 04/16/23 04/16/23 15:00 15:04 15:33 WBC 7.5 RBC 3.92 L Hgb 12.9 L Hct 37.3 L MCV 95.2 H MCH 32.9 H MCHC 34.6 RDW Std Deviation 47.3 H RDW Coeff of Jesus 13.5 Plt Count 329 MPV 8.9 Immature Gran % (Auto) 0.800 Neut % (Auto) 91.2 H Lymph % (Auto) 4.0 L Norman % (Auto) 3.5 Eos % (Auto) 0.1 Baso % (Auto) 0.4 Absolute Neuts (auto) 6.8 Absolute Lymphs (auto) 0.30 L Nucleated RBC % 0 Differential Comment Sodium 135 L Potassium 4.6 Chloride 99 Carbon Dioxide 22.0 Anion Gap 14 BUN 10 Creatinine 1.29 Estim Creat Clear Calc 57.38 Est GFR (MDRD) Af Amer 71 Est GFR (MDRD) Non-Af 59 L BUN/Creatinine Ratio 7.8 L Glucose 62 L Calcium 9.1 Total Bilirubin 0.60 AST 30 ALT 15 L Alkaline Phosphatase 101 Total Protein 7.3 Albumin 3.5 Globulin 3.8 Albumin/Globulin Ratio 0.9 Vitamin B12 Urine Color Urine Clarity Urine pH Ur Specific [place] Urine Protein Urine Glucose (UA) Urine Ketones Urine Occult Blood Urine Nitrite Urine Bilirubin Urine Urobilinogen Ur Leukocyte Esterase Urine RBC Urine WBC Ur Squamous Epith Cells Urine Bacteria Urine Mucus Ethyl Alcohol 17.0 POC Glucose 43 L* 60 L 04/16/23 04/16/23 04/16/23 15:44 16:22 16:35 WBC RBC Hgb Hct MCV MCH MCHC RDW Std Deviation RDW Coeff of Jesus Plt Count MPV Immature Gran % (Auto) Neut % (Auto) Lymph % (Auto) Norman % (Auto) Eos % (Auto) Baso % (Auto) Absolute Neuts (auto) Absolute Lymphs (auto) Nucleated RBC % Differential Comment Sodium Potassium Chloride Carbon Dioxide Anion Gap BUN Creatinine Estim Creat Clear Calc Est GFR (MDRD) Af Amer Est GFR (MDRD) Non-Af BUN/Creatinine Ratio Glucose Calcium Total Bilirubin AST ALT Alkaline Phosphatase Total Protein Albumin Globulin Albumin/Globulin Ratio Vitamin B12 319 Urine Color Yellow Urine Clarity Clear Urine pH 6.0 Ur Specific [place] 1.015 Urine Protein Negative Urine Glucose (UA) Normal Urine Ketones 15 H Urine Occult Blood Negative Urine Nitrite Negative Urine Bilirubin Negative Urine Urobilinogen Normal Ur Leukocyte Esterase Negative Urine RBC 0 SEEN Urine WBC 0 SEEN Ur Squamous Epith Cells 0-5 SEEN Urine Bacteria 0 SEEN Urine Mucus 0 SEEN Ethyl Alcohol POC Glucose 94 Rhythm Strip Rhythm Strip: Sinus Rhythm Rate: 91 Ectopy: None EKG Initial EKG: Attestation: I personally reviewed and interpreted this EKG as follows: Interpretation: Sinus Rhythm Comments: Normal sinus rhythm with sinus arrhythmia at a rate of 91 bpm Normal axis Normal intervals Normal ST segments Compared to prior EKG on 03/06/2023, no significant change Discharge Plan Triage Chief Complaint: Weakness ED Provider: Sandhya Bailey Dx/Rx/DC Orders Clinical Impression: Hypoglycemia Instructions: ED Hypoglycemia, Nondiabetic Primary Care Provider: John Springer Referrals: John Springer MD [Primary Care Provider] - Activity Restrictions/Additional Instructions: Please make sure you are eating regularly so you do not have further episodes oflow blood sugar. Please continue to follow-up with 180 for your drinking. Return the ER if you have further concerns or needs. What to do if you have Problems For any increased pain, shortness of breath, bleeding, nausea or vomiting, chestpain, or any unexpected problems, contact your Primary Care Provider. Call [facility] ([phone]) or report to the closest Emergency Room. Call 911 if necessary. 04/16/23 1836 <Electronically signed by Sandhya Bailey DO> Cosigner Signature (if applicable): CC: Dr. John Springer MD ~ Signed [facility] Work Phone: [phone]) 886-635908-08-2023 Discharge summary Author Brandyn Mchugh [facility] March 06, 2023 4:06pm Note Date/Time March 06, 2023 1:4 5pm [facility] Medical Records Department [address] [place] [address] Emergency Department Summary 03/06/23 MR#: [id number] Acct: [id number] Name: MESSI WALDROP Rep #:[id number] : 1955 68 From: Brandyn Raymond PCP: Dr. John Springer MD Status:RE G ER Location: ED HPI History of Present Illness Chief Complaint: Syncope Informant: patient Narrative Narrative: Patient brought in by EMS concerning syncopal episode. [facility]. Patient reports he got intoxicated last night and up in penitentiary unclear how. Unclear where he passed out. The denies any current symptoms. Denies nausea or vomiting. Denies bloody stools. Denies chest pains or shortness of breath. This is happened to him before. History of prediabetes. Currently feels his normal self. Prior similar symptoms: Yes PFSH PFSH Medical History Acute blood loss anemia Alcohol withdrawal Anxiety Anxiety and depression At high risk for malnutrition Behavior concern in adult Chewing tobacco use COPD (chronic obstructive pulmonary disease) Depression ETOH abuse GI bleed History of cancer tonsil Hypertension Hyponatremia Irregular heart beat Smoker Substance abuse Home Medications pantoprazole 40 mg tablet,delayed release (Protonix) 40 mg PO BID 30 days #60 tabs 12/23/22 [Rx Last Taken 01/05/23] sucralfate 1 gram tablet 1 g PO Q6H 30 days #120 tabs 12/23/22 [Rx Last Taken 01/05/23] acetaminophen 500 mg tablet 500 mg PO Q4H PRN PRN Pain 1-10 or Temp > 100.4 F #0tabs 02/27/23 [Rx Last Taken Unknown] multivitamin 1 tab PO DAILY #30 tabs 02/27/23 [Rx Last Taken Unknown] Allergy/AdvReac Type Severity Reaction Status Date / Time poison rich extract Allergy Mild RASH Verified 03/06/23 13:04 Family History Mother Diabetes Father Diabetes Brother Colon cancer Surgical History History of tonsillectomy and adenoidectomy Social History household members: other details: Lives with his son. Smoking Status: Current every day smoker tobacco type: smokeless tobacco Smokeless tobacco user: chewing tobacco and other alcohol intake: current alcohol intake frequency: 3 or more drinks per day details: 8-10 beers daily coupled with hard liquor. substance use type: does not use ROS ROS ED Constitutional Constitutional ED: Denies chills, fever(s) or sweats Eyes Eyes: Denies change in vision ENT ENT ED: Denies dysphagia or sore throat Cardiovascular Cardiovascular: Denies chest pain, leg edema, palpitations or racing heartbeat Respiratory/Chest Respiratory/Chest: Denies cough, dyspnea or dyspnea on exertion Gastrointestinal Gastrointestinal: Denies abdominal pain, diarrhea, nausea or vomiting Genitourinary Genitourinary ED: Denies dysuria, hematuria or urinary frequency Musculoskeletal Musculoskeletal: Denies back pain, extremity pain or neck pain Integumentary Denies rash or wounds Neurologic Neurologic: Denies headache(s), paresthesias or weakness EXAM Physical Exam Const Vital Signs: 03/06/23 13:04 03/06/23 13:03 Temperature 97.6 F L Temperature Source Temporal Pulse Rate 94 Respiratory Rate 18 Respiratory Effort Normal Respiratory Pattern Normal Blood Pressure 137/81 H Blood Pressure Mean 99 Pulse Ox 100 Oxygen Delivery Method Room Air Positive well nourished and well developed General Appearance ED: well developed and NAD HEENT Reports moist mucous membranes normocephalic and atraumatic Eyes PERRL, EOMs intact bilaterally and conjunctivae normal General Eye ED: Yes normal appearance of both eyes Neck no lymphadenopathy and supple General: Negative for tenderness Chest Wall Chest: Negative for tenderness Resp normal respiratory effort and normal air movement Effort and Inspection: symmetric chest movement; Negative for respiratory distress Cardio regular rate, regular rhythm and no murmurs Peripheral Pulses: pulses 2+ throughout GI normal to inspection, nondistended, normoactive bowel sounds and non-tender Palpation: Negative for guarding or rebound tenderness present Back/Spine no CVA tenderness and no thoracic nor lumbar tenderness Extremity normal to inspection General Extremety ED: Negative for edema or tenderness General Extremity: Negative for edema Neuro oriented x3, CN's II-XII intact bilaterally and no sensory deficits noted Sensorium / Orientation: awake and alert Skin no rashes or lesions noted and no wounds MDM MDM MDM Narrative Medical decision making narrative: Interventions / MDM: Differential diagnosis: Syncope Diagnosis considered but do not suspect: Cardiac dysrhythmia however no EKG findings or cardiac dysrhythmias on the monitor. My EKG interpretation: Sinus rate of 89, no ST or T wave changes. QTc 433. Imaging independently reviewed and interpreted by myself: N/A External documents reviewed: N/A Test considered but not ordered:N/A ED course: Patient clinically feeling back to normal. EKG normal. No on the monitor double reads of T waves causing tachycardiac reads. Labs and electrolytes are stable. IV fluids ordered. Re-evaluation: stable, eating with no difficulties. Patient ambulated department nursing little unstable. Discussed with patient, he states he would like to go home. Therefore with normal work-up with labs and EKG, be dischargedwith outpatient follow-up with return precautions. All questions were answered. Disposition discussed with patient/family/significant other: Patient Case discussed with consulting clinician: N/A This note was generated with [employer] dictation software. It may contain incorrectwords, spelling, and punctuation that were not noted in checking the note beforesigning. Lab Data Attestation: I reviewed the patient's lab results. Labs: Laboratory Results - last 24 hr 03/06/23 13:50 WBC 4.9 RBC 3.72 L Hgb 11.6 L Hct 35.2 L MCV 94.6 H MCH 31.2 MCHC 33.0 RDW Std Deviation 47.8 H RDW Coeff of Jesus 13.7 Plt Count 374 MPV 9.0 Immature Gran % (Auto) 1.000 H Neut % (Auto) 85.8 H Lymph % (Auto) 5.1 L Norman % (Auto) 7.1 Eos % (Auto) 0.2 Baso % (Auto) 0.8 Absolute Neuts (auto) 4.2 Absolute Lymphs (auto) 0.25 L Nucleated RBC % 0 Differential Comment SCANNED Sodium 136 Potassium 4.5 Chloride 105 Carbon Dioxide 22.0 Anion Gap 9 BUN 7 Creatinine 1.07 Estim Creat Clear Calc 66.99 Est GFR (MDRD) Af Amer 89 Est GFR (MDRD) Non-Af 73 BUN/Creatinine Ratio 6.5 L Glucose 90 Calcium 8.4 L Discharge Plan Triage Chief Complaint: Syncope ED Provider: Brandyn Mchugh Dx/Rx/DC Orders Clinical Impression: Alcohol dependence, Syncope Instructions: Alcohol Addiction, ED Fainting, Uncertain Cause Prescriptions: No Action pantoprazole [Protonix] 40 mg tablet,delayed release (DR/EC) 40 mg PO BID 30 Days Qty: 60 1RF sucralfate 1 gram tablet 1 g PO Q6H 30 Days Qty: 120 0RF acetaminophen 500 mg Tablet 500 mg PO Q4H PRN PRN (Reason: Pain 1-10 or Temp > 100.4 F) Qty: 0 0RF multivitamin Tablet 1 tab PO DAILY Qty: 30 0RF Primary Care Provider: John Springer Referrals: John Springer MD [Primary Care Provider] - 3-5 Days Activity Restrictions/Additional Instructions: EKG and labs are stable. Alcohol cessation. Follow-up with your doctor. Return if worsening symptoms. Disposition Disposition: Home, Self Care What to do if you have Problems For any increased pain, shortness of breath, bleeding, nausea or vomiting, chestpain, or any unexpected problems, contact your Primary Care Provider. Call [facility] ([phone]) or report to the closest Emergency Room. Call 911 if necessary. 03/06/23 1606 <Electronically signed by Brandyn Raymond> Cosigner Signature (if applicable): CC: Dr. John Springer MD ~ Signed [facility] Work Phone: 1(335) 666-800608-01-2023 Discharge summary Author Galen Souza [facility] February 27, 2023 1:55pm Note Date/Time February 27, 2023 12: 23pm [facility] Medical Records Department [address] [place] [address] Discharge Summary 02/27/23 1222 MR#: [id number] Acct: [id number] Name: MESSI WALDROP Rep #:[id number] : 1955 68 From: Galen Souza DO PCP: Dr. John Springer MD Status:DOUG SMART Location: [facility] [place] [id number] Providers Date of Admission: 02/26/23 Primary Care Physician: Dr. John Springer MD Reason For Visit: ETOH DETOX Diagnosis Discharge Diagnosis (1) ETOH abuse: Status: Acute Code(s): F10.10 - Alcohol abuse, uncomplicated Plan: Patient voluntarily requesting evaluation for further alcohol detoxification program. Patient states that he was advised by when ED to come to the hospital for evaluation. Patient denies any complaints at this time and states that he only had 1 beer today and vodka on the but before that had not had any alcohol. Patient does have a history of very severe alcohol withdrawal but patient at this time appears to be low risk for that. We will hold off in any treatment with phenobarbital at this time unless his condition changes. My plan is just to monitor him overnight and if he does okay then to have him beseen by addiction medicine and set up an outpatient program. Thiamine and folate. No events overnight. Plan is for patient to go to [facility], which is a 12-month program. Patient is agreeable. (2) Behavior concern in adult: Status: Acute Code(s): F69 - Unspecified disorder of adult personality and behavior Plan: Patient has history of inappropriate comments as well as inappropriate touching female staff. I addressed these issues directly with the patient today that he may speak with staff that cares for him but he must refrain from using inappropriate comments and I told him specifically that his jokes simply are not funny. I explained tohim that we are here to try to help him and inappropriate touching will not be tolerated as he had done during the previous hospitalization back in November. Patient states that he has no recollection of that, given his compromised state that certainly may be the case. He did appear to be understanding and states that he would comply Plan Chronic conditions * Duodenal ulcers: Continue with PPI and sucralfate. * History of anemia secondary to bleeding duodenal ulcer. Hemoglobin has trended upwards and currently 10.4. * Hyponatremia likely associated with alcohol consumption. Monitor for now. VTE prophylaxis: Low risk given current observation status. Disposition: Being brought in as observation status. Medications at Discharge Home Medications pantoprazole 40 mg tablet,delayed release (Protonix) 40 mg PO BID 30 days #60 tabs 05/27/23 sucralfate 1 gram tablet 1 g PO Q6H 30 days #120 tabs 12/23/22 acetaminophen 500 mg tablet 500 mg PO Q4H PRN PRN Pain 1-10 or Temp > 100.4 F #0tabs 02/27/23 multivitamin 1 tab PO DAILY #30 tabs 02/27/23 Hospital Course Operations None Procedures None Summary of Care Provided Minutes Spent on Discharge: 32 Weight / BMI Weight Weight: 73.7 kg Body Mass Index (BMI) 24.0 ABG / Lab / Microbiology Data 02/26/23 14:20 02/27/23 05:52 Laboratory: Laboratory Results - last 24 hr 02/26/23 13:50: Urine Opiates Screen NEGATIVE, Urine Methadone Screen NEGATIVE, Ur Barbiturates Screen NEGATIVE, Ur Phencyclidine Scrn NEGATIVE, Ur AmphetaminesScreen NEGATIVE, MDMA (Ecstasy) Screen NEGATIVE, U Benzodiazepines Scrn NEGATIVE, Urine Cocaine Screen NEGATIVE, U Cannabinoids Screen NEGATIVE, Ur DrugScreen Comment 02/26/23 14:20: WBC 5.9, RBC 3.31 L, Hgb 10.4 L, Hct 30.6 L, MCV 92.4, MCH 31.4,MCHC 34.0, RDW Std Deviation 46.5 H, RDW Coeff of Jesus 13.5, Plt Count 269, MPV 9.5, Immature Gran % (Auto) 0.500, Neut % (Auto) 79.6 H, Lymph % (Auto) 7.3 L, Norman % (Auto) 11.6 H, Eos % (Auto) 0.8, Baso % (Auto) 0.2, Absolute Neuts (auto)4.7, Absolute Lymphs (auto) 0.43 L, Nucleated RBC % 0, Differential Comment SCANNED, Sodium 127 L, Potassium 3.9, Chloride 94 L, Carbon Dioxide 28.0, Anion Gap 5, BUN 18, Creatinine 1.36 H, Est GFR (MDRD) Af Amer 67, Est GFR (MDRD) Non-Af 56 L, BUN/Creatinine Ratio 13.2, Glucose 106, Calcium 8.3 L, Total Bilirubin 0.30, AST 27, ALT 17, Alkaline Phosphatase 97, Total Protein 6.1 L, Albumin 2.8 L, Globulin 3.3, Albumin/Globulin Ratio 0.8 L, Ethyl Alcohol < 3.0 02/27/23 05:52: Sodium 130 L, Potassium 3.6, Chloride 98, Carbon Dioxide 27.0, Anion Gap 5, BUN 15, Creatinine 1.28, Estim Creat Clear Calc 56.00, Est GFR (MDRD) Af Amer 72, Est GFR (MDRD) Non-Af 60, BUN/Creatinine Ratio 11.7, Glucose 128 H, Calcium 8.1 L D/C Instructions Discharge Diet: No restrictions Meaningful Use Info Meaningful Use Diagnoses (Choose all that apply): None applicable Discharge Plan Admission Admit Date/Time: 02/26/23 15:32 Primary Reason for Your Visit: alcohol withdrawal. Attending Provider: Galen Souza Primary Care Provider: John Springer Discharge Orders/Prescriptions Prescriptions: New acetaminophen 500 mg Tablet 500 mg PO Q4H PRN PRN (Reason: Pain 1-10 or Temp > 100.4 F) Qty: 0 0RF multivitamin Tablet 1 tab PO DAILY Qty: 30 0RF Continued pantoprazole [Protonix] 40 mg tablet,delayed release (DR/EC) 40 mg PO BID 30 Days Qty: 60 1RF sucralfate 1 gram tablet 1 g PO Q6H 30 Days Qty: 120 0RF Discontinued doxycycline hyclate 100 mg tablet 100 mg PO BID 13 Days Qty: 26 0RF lactulose 20 gram/30 mL Solution 10 g PO BID 30 Days Qty: 900 0RF Referrals / Follow Up: [facility] [Provider Group] - Within 3 Months John Springer MD [Primary Care Provider] - Within 2 Weeks Disposition Disposition (needs filled in before D/C Order can be placed): Home, Self Care Charges/Coding Visit Charges Inpatient E&M: 29776 Disch Hosp >30min 02/27/23 1223 <Electronically signed by Galen Souza DO> Cosigner Signature (if applicable): CC: Dr. John Springer MD; Dr. Galen Souza DO~ Signed ADDENDUM by Dr. Galen Souza DO on 02/27/23 at 1355 Addendum The recovery program required the patient to actually do physical work while he is there. Patient said that he would not be able to work. Patient has no evidence of any alcohol withdrawal at this time. He will be discharged and haveoutpatient follow-up. 02/27/23 1355<Electronically signed by Galen Souza DO> Cosigner Signature (if applicable): cc: Dr. John Springer MD; Dr. Galen Souza DO ~* Signed [facility] Work Phone: [phone]) 949-350708-01-2023 Discharge summary Author Galen Souza [facility] February 27, 2023 12:22pm Note Date/Time February 27, 2023 12: 20pm [facility] Medical Records Department [address] [place] [address] Instructions for Home/Discharge Instructions 02/27/23 1220 MR#: [id number] Acct: [id number] Name: MESSI WALDROP Rep #:[id number] : 1955 68 From: Galen Souza DO PCP: Dr. John Springer MD Status:AD M BING Discharge Instructions Diet Discharge Diet: No restrictions Follow Up Care Test Results: Test results from this visit will be discussed in further detail at your follow- up appointment, if applicable. Discharge Plan Admission Admit Date/Time: 02/26/23 15:32 Primary Reason for Your Visit: alcohol withdrawal. Attending Provider: Galen Souza Primary Care Provider: John Springer Discharge Orders/Prescriptions Prescriptions: New acetaminophen 500 mg Tablet 500 mg PO Q4H PRN PRN (Reason: Pain 1-10 or Temp > 100.4 F) Qty: 0 0RF multivitamin Tablet 1 tab PO DAILY Qty: 30 0RF Continued pantoprazole [Protonix] 40 mg tablet,delayed release (DR/EC) 40 mg PO BID 30 Days Qty: 60 1RF sucralfate 1 gram tablet 1 g PO Q6H 30 Days Qty: 120 0RF Discontinued doxycycline hyclate 100 mg tablet 100 mg PO BID 13 Days Qty: 26 0RF lactulose 20 gram/30 mL Solution 10 g PO BID 30 Days Qty: 900 0RF Referrals / Follow Up: [facility] [Provider Group] - Within 3 Months John Springer MD [Primary Care Provider] - Within 2 Weeks Disposition Disposition (needs filled in before D/C Order can be placed): Home, Self Care 08/01/23 1222<Electronically signed by Galen Souza DO>Galen Souza DO CC: Dr. John Springer MD ~ Signed [facility] Work Phone: [phone]) 184-656408-01-2023 Progress note Author Galen Souza [facility] February 27, 2023 12:20pm Note Date/Time February 27, 2023 7:2 6am [facility] Medical Records Department [address] [place] [address] Progress Note - Hospitalist 02/27/2325 MR#: [id number] Acct: [id number] Name: MESSI WALDROP Rep #:[id number] : 1955 68 From: Galen Souza DO PCP: Dr. John Springer MD Status:DOUG M BING Location: [facility] [place] [id number] Reason for Visit Reason for Visit: Diagnoses Alcohol abuse, uncomplicated (02/26/23) Unspecified disorder of adult personality and behavior (02/26/23) Subjective Subjective No events overnight. Objective Data Objective Data Vital Signs: Vital Signs Temp Pulse Resp BP Pulse Ox O2 Del Method 36.9 C 84 16 106/86 H 97 Room Air 02/27/23 02:22 02/27/23 02:22 02/27/23 02:22 02/27/23 02:22 02/27/23 02:22 02/27/23 02:22 Oxygen Delivery Method Room Air Weight: 73.7 kg Body Mass Index (BMI) 24.0 Intake & Output: Intake and Output for Last 24 Hours 02/25/23 02/26/23 02/27/23 23:59 23:59 23:59 Intake Total 350 / 350 100 / 100 Balance 350 / 350 100 / 100 Lab / Micro Data 02/26/23 14:20 02/27/23 05:52 Labs: Laboratory Results - last 24 hr 02/26/23 13:50: Urine Opiates Screen NEGATIVE, Urine Methadone Screen NEGATIVE, Ur Barbiturates Screen NEGATIVE, Ur Phencyclidine Scrn NEGATIVE, Ur AmphetaminesScreen NEGATIVE, MDMA (Ecstasy) Screen NEGATIVE, U Benzodiazepines Scrn NEGATIVE, Urine Cocaine Screen NEGATIVE, U Cannabinoids Screen NEGATIVE, Ur DrugScreen Comment 02/26/23 14:20: WBC 5.9, RBC 3.31 L, Hgb 10.4 L, Hct 30.6 L, MCV 92.4, MCH 31.4,MCHC 34.0, RDW Std Deviation 46.5 H, RDW Coeff of Jesus 13.5, Plt Count 269, MPV 9.5, Immature Gran % (Auto) 0.500, Neut % (Auto) 79.6 H, Lymph % (Auto) 7.3 L, Norman % (Auto) 11.6 H, Eos % (Auto) 0.8, Baso % (Auto) 0.2, Absolute Neuts (auto)4.7, Absolute Lymphs (auto) 0.43 L, Nucleated RBC % 0, Differential Comment SCANNED, Sodium 127 L, Potassium 3.9, Chloride 94 L, Carbon Dioxide 28.0, Anion Gap 5, BUN 18, Creatinine 1.36 H, Est GFR (MDRD) Af Amer 67, Est GFR (MDRD) Non-Af 56 L, BUN/Creatinine Ratio 13.2, Glucose 106, Calcium 8.3 L, Total Bilirubin 0.30, AST 27, ALT 17, Alkaline Phosphatase 97, Total Protein 6.1 L, Albumin 2.8 L, Globulin 3.3, Albumin/Globulin Ratio 0.8 L, Ethyl Alcohol < 3.0 02/27/23 05:52: Sodium 130 L, Potassium 3.6, Chloride 98, Carbon Dioxide 27.0, Anion Gap 5, BUN 15, Creatinine 1.28, Estim Creat Clear Calc 56.00, Est GFR (MDRD) Af Amer 72, Est GFR (MDRD) Non-Af 60, BUN/Creatinine Ratio 11.7, Glucose 128 H, Calcium 8.1 L Physical Exam Const alert and no apparent distress Constitutional Narrative: pleasant. HEENT head/scalp atraumatic Neuro Sensorium / Orientation: awake and alert Assessment & Plan Assessment/Plan (1) ETOH abuse: PLAN: Patient voluntarily requesting evaluation for further alcohol detoxification program. Patient states that he was advised by when ED to come to the hospital for evaluation. Patient denies any complaints at this time and states that he only had 1 beer today and vodka on the but before that had not had any alcohol. Patient does have a history of very severe alcohol withdrawal but patient at this time appears to be low risk for that. We will hold off in any treatment with phenobarbital at this time unless his condition changes. My plan is just to monitor him overnight and if he does okay then to have him beseen by addiction medicine and set up an outpatient program. Thiamine and folate. No events overnight. Plan is for patient to go to [facility], which is a 12-month program. Patient is agreeable. (2) Behavior concern in adult: PLAN: Patient has history of inappropriate comments as well as inappropriate touching female staff. I addressed these issues directly with the patient today that he may speak with staff that cares for him but he must refrain from using inappropriate comments and I told him specifically that his jokes simply are not funny. I explained tohim that we are here to try to help him and inappropriate touching will not be tolerated as he had done during the previous hospitalization back in November. Patient states that he has no recollection of that, given his compromised state that certainly may be the case. He did appear to be understanding and states that he would comply PLAN: Plan Chronic conditions * Duodenal ulcers: Continue with PPI and sucralfate. * History of anemia secondary to bleeding duodenal ulcer. Hemoglobin has trended upwards and currently 10.4. * Hyponatremia likely associated with alcohol consumption. Monitor for now. VTE prophylaxis: Low risk given current observation status. Disposition: Being brought in as observation status. 02/27/23 1220 <Electronically signed by Galen Souza DO> Cosigner Signature (if applicable): CC: ~ Signed [facility] Work Phone: 1(266) 221-642107-31-2023 Discharge summary Author Kelechi Miles [facility] February 26, 2023 3:52pm Note Date/Time February 26, 2023 3:52 pm [facility] Medical Records Department [address] [place] [address] Emergency Department Summary 02/26/23 MR#: [id number] Acct: [id number] Name: MESSI WALDROP Winter Rep #:[id number] : 1955 68 From: Kelechi Miles DO PCP: Dr. John Springer MD Status:AD M IN Location: [place] [address] HPI History of Present Illness Chief Complaint: ETOH Intox Narrative Narrative: Patient presenting for alcohol detox. He has a history of alcohol abuse. Apparently Sunday he got into some vodka and some wine. He started having theshakes yesterday and today he found a beer and drank it. He request detox was brought in by his family. [facility] Medical History Acute blood loss anemia Alcohol withdrawal Anxiety and depression At high risk for malnutrition Chewing tobacco use ETOH abuse GI bleed History of cancer tonsil Hyponatremia Home Medications doxycycline hyclate 100 mg tablet 100 mg PO BID 13 days #26 tabs 12/23/22 [Rx Last Taken 01/05/23] lactulose 20 gram/30 mL oral solution 10 g (15 mL) PO BID 30 days #900 mL 12/23/22 [Rx Last Taken 01/05/23] pantoprazole 40 mg tablet,delayed release (Protonix) 40 mg PO BID 30 days #60 tabs 12/23/22 [Rx Last Taken 01/05/23] sucralfate 1 gram tablet 1 g PO Q6H 30 days #120 tabs 12/23/22 [Rx Last Taken 01/05/23] Allergy/AdvReac Type Severity Reaction Status Date / Time poison rich extract Allergy Mild RASH Verified 02/26/23 12:48 Family History Mother Diabetes Father Diabetes Brother Colon cancer Surgical History History of tonsillectomy and adenoidectomy Social History household members: other details: Lives with his son. Smoking Status: Current every day smoker tobacco type: smokeless tobacco Smokeless tobacco user: chewing tobacco and other alcohol intake: current alcohol intake frequency: 3 or more drinks per day details: 8-10 beers daily coupled with hard liquor. substance use type: does not use ROS ROS ED Constitutional Constitutional ED: Denies chills, fever(s) or sweats Eyes Eyes: Denies blurry vision or change in vision ENT ENT ED: Denies ear pain or sore throat Cardiovascular Cardiovascular: Denies chest pain, palpitations or racing heartbeat Respiratory/Chest Respiratory/Chest: Denies cough, dyspnea or sputum Gastrointestinal Gastrointestinal: Denies abdominal pain, constipation, diarrhea, nausea or vomiting Genitourinary Genitourinary ED: Denies dysuria, hematuria or urinary frequency Musculoskeletal Musculoskeletal: Denies arthralgias, myalgias or neck pain Integumentary Denies abscess, Abrasions or rash Neurologic Neurologic: Denies headache(s), paresthesias or weakness Psychiatric Psychiatric: Denies anxiety, depression, suicidal ideation or suicidal thoughts Endocrine Endocrinology: Denies polydipsia or polyuria EXAM Physical Exam Const Vital Signs: 02/26/23 12:46 Temperature 96 F L Temperature Source Temporal Pulse Rate 97 Respiratory Rate 12 Blood Pressure 126/67 H Blood Pressure Mean 86 Pulse Ox 100 Oxygen Delivery Method Room Air Positive well nourished General Appearance ED: NAD; Negative for pallor HEENT Reports moist mucous membranes Eyes PERRL and EOMs intact bilaterally Chest Wall inspection of chest normal Resp normal respiratory effort Cardio regular rate and regular rhythm Neuro oriented x3 and CN's II-XII intact bilaterally Sensorium / Orientation: alert Speech: speech normal Psych mental status grossly normal and thought process normal Skin General Skin Exam: Negative for jaundice or pallor MDM MDM MDM Narrative Medical decision making narrative: Patient presenting for alcohol detox. Screening lab work was obtained. CBC unremarkable. CMP shows an elevated creatinine at 1.36. LFTs unremarkable. Sodium slightly low at 127. Urine drug screen negative. Alcohol negative. Patient cleared for the medical floor. Discussed with hospitalist for admission. Impression: 1. EtOH abuse 2. Presentation for EtOH detox 3. Hyponatremia 4. Dehydration Lab Data Attestation: I reviewed the patient's lab results. Labs: Laboratory Results - last 24 hr 02/26/23 02/26/23 13:50 14:20 WBC 5.9 RBC 3.31 L Hgb 10.4 L Hct 30.6 L MCV 92.4 MCH 31.4 MCHC 34.0 RDW Std Deviation 46.5 H RDW Coeff of Jesus 13.5 Plt Count 269 MPV 9.5 Immature Gran % (Auto) 0.500 Neut % (Auto) 79.6 H Lymph % (Auto) 7.3 L Norman % (Auto) 11.6 H Eos % (Auto) 0.8 Baso % (Auto) 0.2 Absolute Neuts (auto) 4.7 Absolute Lymphs (auto) 0.43 L Nucleated RBC % 0 Differential Comment SCANNED Sodium 127 L Potassium 3.9 Chloride 94 L Carbon Dioxide 28.0 Anion Gap 5 BUN 18 Creatinine 1.36 H Est GFR (MDRD) Af Amer 67 Est GFR (MDRD) Non-Af 56 L BUN/Creatinine Ratio 13.2 Glucose 106 Calcium 8.3 L Total Bilirubin 0.30 AST 27 ALT 17 Alkaline Phosphatase 97 Total Protein 6.1 L Albumin 2.8 L Globulin 3.3 Albumin/Globulin Ratio 0.8 L Urine Opiates Screen NEGATIVE Urine Methadone Screen NEGATIVE Ur Barbiturates Screen NEGATIVE Ur Phencyclidine Scrn NEGATIVE Ur Amphetamines Screen NEGATIVE MDMA (Ecstasy) Screen NEGATIVE U Benzodiazepines Scrn NEGATIVE Urine Cocaine Screen NEGATIVE U Cannabinoids Screen NEGATIVE Ur Drug Screen Comment Ethyl Alcohol < 3.0 Discharge Plan Triage Chief Complaint: ETOH Intox ED Provider: Kelechi Miles Dx/Rx/DC Orders Primary Care Provider: John Springer What to do if you have Problems For any increased pain, shortness of breath, bleeding, nausea or vomiting, chestpain, or any unexpected problems, contact your Primary Care Provider. Call [facility] ([phone]) or report to the closest Emergency Room. Call 911 if necessary. 02/26/23 1552 <Electronically signed by Kelechi Miles DO> Cosigner Signature (if applicable): CC: Dr. John Springer MD ~ Signed [facility] Work Phone: 1(973) 839-561007-31-2023 History and physical note Author Galen Souza [facility] February 26, 2023 3:43pm Note Date/Time February 26, 2023 3:43 pm [facility] Medical Records Department [address] [place] [id number] H&P Exam - Hospitalist 02/26/23 1534 MR#: [id number] Acct: [id number] Name: MESSI WALDROP Rep #:[id number] : 1955 68 From: Galen Souza DO PCP: Dr. John Springer MD Status:AD M IN Location: [facility] [place] [facility] HPI - General General Date of Admission: 02/26/23 Date of Service: 02/26/23 Chief Complaint: requesting alcohol detoxification. HPI Narrative MESSI WALDROP, is a 68 M who presents voluntarily seeking alcohol detox. Patient did have a beer today. Was seen in the emergency room on the where he was clearly intoxicated and quite belligerent. Patient sobered up and went home. Patient does have a history of severe alcohol withdrawal and did go through delirium tremens back in November. He states that before he started drinking over the weekend, he had not drank any alcohol for about 7 days. Drink a bunch of vodka then led to his state at that time. [facility] Medical History (Updated 02/26/23 @ 15:[address] Galen Souza DO) Acute blood loss anemia Alcohol withdrawal Anxiety and depression At high risk for malnutrition Chewing tobacco use ETOH abuse GI bleed History of cancer tonsil Hyponatremia Home Medications doxycycline hyclate 100 mg tablet 100 mg PO BID 13 days #26 tabs 12/23/22 [Rx Last Taken 01/05/23] lactulose 20 gram/30 mL oral solution 10 g (15 mL) PO BID 30 days #900 mL 12/23/22 [Rx Last Taken 01/05/23] pantoprazole 40 mg tablet,delayed release (Protonix) 40 mg PO BID 30 days #60 tabs 12/23/22 [Rx Last Taken 01/05/23] sucralfate 1 gram tablet 1 g PO Q6H 30 days #120 tabs 12/23/22 [Rx Last Taken 01/05/23] Allergy/AdvReac Type Severity Reaction Status Date / Time poison rich extract Allergy Mild RASH Verified 02/26/23 12:48 Family History Mother Diabetes Father Diabetes Brother Colon cancer Surgical History History of tonsillectomy and adenoidectomy Social History household members: other details: Lives with his son. Smoking Status: Current every day smoker tobacco type: smokeless tobacco Smokeless tobacco user: chewing tobacco and other alcohol intake: current alcohol intake frequency: 3 or more drinks per day details: 8-10 beers daily coupled with hard liquor. substance use type: does not use Vital Signs Vital Signs Vital Signs: 02/26/23 12:46 Temperature 35.5 C L Temperature Source Temporal Pulse Rate 97 Respiratory Rate 12 Blood Pressure 126/67 H Blood Pressure Mean 86 Pulse Ox 100 Oxygen Delivery Method Room Air Physical Exam Const alert and no apparent distress Constitutional Narrative: Patient. Very understanding and cooperative and appropriately interactive. HEENT normocephalic and head/scalp atraumatic Eyes PERRL and EOMs intact bilaterally Neuro moves all extremities Sensorium / Orientation: awake and alert Speech: speech normal Psych affect normal Results Lab / Micro Data 02/26/23 14:20 02/26/23 14:20 Labs: Laboratory Results - last 24 hr 02/26/23 13:50: Urine Opiates Screen NEGATIVE, Urine Methadone Screen NEGATIVE, Ur Barbiturates Screen NEGATIVE, Ur Phencyclidine Scrn NEGATIVE, Ur AmphetaminesScreen NEGATIVE, MDMA (Ecstasy) Screen NEGATIVE, U Benzodiazepines Scrn NEGATIVE, Urine Cocaine Screen NEGATIVE, U Cannabinoids Screen NEGATIVE, Ur DrugScreen Comment 02/26/23 14:20: WBC 5.9, RBC 3.31 L, Hgb 10.4 L, Hct 30.6 L, MCV 92.4, MCH 31.4,MCHC 34.0, RDW Std Deviation 46.5 H, RDW Coeff of Jesus 13.5, Plt Count 269, MPV 9.5, Immature Gran % (Auto) 0.500, Neut % (Auto) 79.6 H, Lymph % (Auto) 7.3 L, Norman % (Auto) 11.6 H, Eos % (Auto) 0.8, Baso % (Auto) 0.2, Absolute Neuts (auto)4.7, Absolute Lymphs (auto) 0.43 L, Nucleated RBC % 0, Sodium 127 L, Potassium 3.9, Chloride 94 L, Carbon Dioxide 28.0, Anion Gap 5, BUN 18, Creatinine 1.36 H,Est GFR (MDRD) Af Amer 67, Est GFR (MDRD) Non-Af 56 L, BUN/Creatinine Ratio 13.2, Glucose 106, Calcium 8.3 L, Total Bilirubin 0.30, AST 27, ALT 17, AlkalinePhosphatase 97, Total Protein 6.1 L, Albumin 2.8 L, Globulin 3.3, Albumin/Globulin Ratio 0.8 L, Ethyl Alcohol < 3.0 Assessment & Plan Assessment/Plan (1) ETOH abuse: PLAN: Patient voluntarily requesting evaluation for further alcohol detoxification program. Patient states that he was advised by when ED to come to the hospital for evaluation. Patient denies any complaints at this time and states that he only had 1 beer today and vodka on the but before that had not had any alcohol. Patient does have a history of very severe alcohol withdrawal but patient at this time appears to be low risk for that. We will hold off in any treatment with phenobarbital at this time unless his condition changes. My plan is just to monitor him overnight and if he does okay then to have him beseen by addiction medicine and set up an outpatient program. Thiamine and folate. (2) Behavior concern in adult: PLAN: Patient has history of inappropriate comments as well as inappropriate touching female staff. I addressed these issues directly with the patient today that he may speak with staff that cares for him but he must refrain from using inappropriate comments and I told him specifically that his jokes simply are not funny. I explained tohim that we are here to try to help him and inappropriate touching will not be tolerated as he had done during the previous hospitalization back in November. Patient states that he has no recollection of that, given his compromised state that certainly may be the case. He did appear to be understanding and states that he would comply PLAN: Plan Chronic conditions * Duodenal ulcers: Continue with PPI and sucralfate. * History of anemia secondary to bleeding duodenal ulcer. Hemoglobin has trended upwards and currently 10.4. * Hyponatremia likely associated with alcohol consumption. Monitor for now. VTE prophylaxis: Low risk given current observation status. Disposition: Being brought in as observation status. If patient spit condition deteriorates where he starts going through severe alcohol withdrawal then statuswill need to be changed to admission. Charges/Coding Visit Charges Inpatient E&M: 20242 Init Hosp L2 02/26/23 1543 <Electronically signed by Galen Souza DO> Cosigner Signature (if applicable): CC: Dr. John Springer MD; Dr. Galen Souza DO~ Signed [facility] Work Phone: [phone]) 501-459307-29-2023 Discharge summary Author Jakob Calle [facility] February 24, 2023 11:00pm Note Date/Time February 24, 2023 6:19 pm [facility] Medical Records Department [address] [place] [address] Emergency Department Summary 02/24/23 MR#: [id number] Acct: [id number] Name: MESSI WALDROP Rep #:[id number] : 1955 68 From: Jakob Calle DO PCP: Dr. John Springer MD Status:RE G ER Location: ED HPI <SOHA Shultz - Last Filed: 02/24/23 20:27> History of Present Illness Chief Complaint: Fall Narrative Narrative: Patient is a 68-year-old male with history of acid reflux, alcohol abuse who presents to the emergency department for alcohol intoxication, possible fall. Patient has been seen in this emergency department several times for alcohol intoxication, frequent falls. Tonight, there was a call, patient was acting appropriate. Upon arrival, patient was screaming, patient does have a skin tearto the left arm. He has no complaints. When asked how he is feeling, he stateshe just wants to hit everybody. PFSH <SOHA Shultz - Last Filed: 02/24/23 20:27> PFSH Medical History Acute blood loss anemia Alcohol withdrawal Anxiety and depression At high risk for malnutrition Chewing tobacco use ETOH abuse GI bleed History of cancer tonsil Hyponatremia Home Medications doxycycline hyclate 100 mg tablet 100 mg PO BID 13 days #26 tabs 12/23/22 [Rx Last Taken 01/05/23] lactulose 20 gram/30 mL oral solution 10 g (15 mL) PO BID 30 days #900 mL 12/23/22 [Rx Last Taken 01/05/23] pantoprazole 40 mg tablet,delayed release (Protonix) 40 mg PO BID 30 days #60 tabs 12/23/22 [Rx Last Taken 01/05/23] sucralfate 1 gram tablet 1 g PO Q6H 30 days #120 tabs 12/23/22 [Rx Last Taken 01/05/23] Allergy/AdvReac Type Severity Reaction Status Date / Time No Known Allergies Allergy Verified 12/12/22 18:23 Family History Mother Diabetes Father Diabetes Brother Colon cancer Surgical History History of tonsillectomy and adenoidectomy Social History household members: other details: Lives with his son. Smoking Status: Unknown if ever smoked Smokeless tobacco user: chewing tobacco and other alcohol intake: current alcohol intake frequency: 3 or more drinks per day details: 8-10 beers daily coupled with hard liquor. substance use type: does not use ROS <SOHA Shultz - Last Filed: 02/24/23 20:27> ROS ED ROS Narrative Secondary to the patient's intoxication, he was not cooperative and answering review of symptoms. EXAM <SOHA Shultz - Last Filed: 02/24/23 20:27> Physical Exam Narrative Exam Narrative: Vital signs reviewed. Patient is obviously intoxicated, patient is slurring his words. Patient is saying multiple obscenities, threatening staff, putting up his hands and a punching motion to multiple staff members. Patient immediately was placed in four-point restraints secondary to the concern for the safety of the staff and the patient. HEET: Head normocephalic atraumatic, TMs clear bilaterally. Posterior pharynx is clear, moist mucous membranes. Nares clear bilaterally. Pupils equal round reactive to light. Neck: Supple with no lymphadenopathy or tenderness. No signs of meningismus, negative jolt sign. Cardiac: Regular rate and rhythm no murmurs gallops or rubs, equal peripheral pulses bilaterally. Respiratory: Lungs clear to auscultation bilaterally. No chest tenderness. Abdomen: Soft, nontender, nondistended. No abdominal bruit or pulsatile masses. No hepatosplenomegaly Extremities: No peripheral edema, no signs of gross trauma or deformity. Activefull range of motion of all extremities. Patient has a 3 cm x 3 cm circular skin tear to the left forearm. This is superficial. Neuro: Cranial nerves II through XII intact, no focal neurological deficits. Skin: Clean dry and intact with no rash, purpura, petechiae, vesicles or pustules. Backs/flank: No CVA tenderness, no midline spinal tenderness, no deformity. Psych: Normal mood and affect. No SI, HI or acute psychosis. Const Vital Signs: 02/24/23 17:58 02/24/23 20:37 Temperature 97.8 F Temperature Source Temporal Pulse Rate 95 Respiratory Rate 16 14 Blood Pressure 127/76 H Blood Pressure Mean 93 Pulse Ox 98 Oxygen Delivery Method Room Air Positive well nourished and well developed General Appearance ED: well developed <Dr. Jakob Calle, DO - Last Filed: 02/24/23 23:00> Physical Exam Const Vital Signs: 02/24/23 17:58 02/24/23 20:37 Temperature 97.8 F Temperature Source Temporal Pulse Rate 95 Respiratory Rate 16 14 Blood Pressure 127/76 H Blood Pressure Mean 93 Pulse Ox 98 Oxygen Delivery Method Room Air MDM <SOHA Shultz - Last Filed: 02/24/23 20:27> MDM Lab Data Labs: Laboratory Results - last 24 hr 02/24/23 18:15 WBC 5.0 RBC 3.29 L Hgb 10.3 L Hct 30.1 L MCV 91.5 MCH 31.3 MCHC 34.2 RDW Std Deviation 44.5 H RDW Coeff of Jesus 13.3 Plt Count 251 MPV 9.0 Immature Gran % (Auto) 0.600 Neut % (Auto) 74.0 H Lymph % (Auto) 11.7 L Norman % (Auto) 12.3 H Eos % (Auto) 0.8 Baso % (Auto) 0.6 Absolute Neuts (auto) 3.7 Absolute Lymphs (auto) 0.58 L Nucleated RBC % 0 Differential Comment SCANNED Sodium 132 L Potassium 3.6 Chloride 99 Carbon Dioxide 23.0 Anion Gap 10 BUN 7 Creatinine 0.97 Estim Creat Clear Calc 68.75 Est GFR (MDRD) Af Amer 100 Est GFR (MDRD) Non-Af 82 BUN/Creatinine Ratio 7.2 L Glucose 73 L Calcium 8.2 L Magnesium 2.1 Total Bilirubin 0.30 AST 29 ALT 17 Alkaline Phosphatase 86 Total Protein 6.2 L Albumin 3.0 L Globulin 3.2 Albumin/Globulin Ratio 0.9 Ethyl Alcohol 280.0 Radiography Diagnostic Testing: Clinical Impression(s) from Imaging Studies Brain CT 02/24/23 18:01 IMPRESSION: Chronic involutional changes of the brain. Electronically Signed: Johan Humphrey MD at 19:55 EDT , Treatment and Re-Evaluation :: Patient upon initial arrival was yelling, being very disrespectful, swearing, threatening to harm nursing staff as well as please staff. Patient made severalattempts to hit staff and was put in four-point restraints. Patient presents tot emergency department via EMS for intoxication, possible fall. Patient does have history of this. Patient was only in four-point restraint for short time. Patient then began behaving.Patient did receive basic laboratory values, patient's CBC showed a hemoglobin 10.3 which is a chronic stable anemia. Patient's sodium is 132 which is slightly low however baseline for this patient. Patient's kidney function was unremarkable. Magnesium was unremarkable. Patient's alcohol level was 280. Patient received a CT scan of his brain to ensure there is no intracranial hemorrhage, skull fracture. This was negative for any acute process. Patient was given IV Ativan to help him relax. Patient will be discharged home once sober. Patient does have a left skin tear that wasdressed, tetanus vaccination given. Patient instructed to quit drinking or thiscould ultimately kill him. He verbally understands. Patient stable for discharge. <Dr. Jakob Calle, DO - Last Filed: 02/24/23 23:00> [facility] Lab Data Attestation: I reviewed the patient's lab results. Labs: Laboratory Results - last 24 hr 02/24/23 18:15 WBC 5.0 RBC 3.29 L Hgb 10.3 L Hct 30.1 L MCV 91.5 MCH 31.3 MCHC 34.2 RDW Std Deviation 44.5 H RDW Coeff of Jesus 13.3 Plt Count 251 MPV 9.0 Immature Gran % (Auto) 0.600 Neut % (Auto) 74.0 H Lymph % (Auto) 11.7 L Norman % (Auto) 12.3 H Eos % (Auto) 0.8 Baso % (Auto) 0.6 Absolute Neuts (auto) 3.7 Absolute Lymphs (auto) 0.58 L Nucleated RBC % 0 Differential Comment SCANNED Sodium 132 L Potassium 3.6 Chloride 99 Carbon Dioxide 23.0 Anion Gap 10 BUN 7 Creatinine 0.97 Estim Creat Clear Calc 68.75 Est GFR (MDRD) Af Amer 100 Est GFR (MDRD) Non-Af 82 BUN/Creatinine Ratio 7.2 L Glucose 73 L Calcium 8.2 L Magnesium 2.1 Total Bilirubin 0.30 AST 29 ALT 17 Alkaline Phosphatase 86 Total Protein 6.2 L Albumin 3.0 L Globulin 3.2 Albumin/Globulin Ratio 0.9 Ethyl Alcohol 280.0 Radiography Diagnostic Testing: Clinical Impression(s) from Imaging Studies Brain CT 02/24/23 18:01 IMPRESSION: Chronic involutional changes of the brain. Electronically Signed: Johan Humphrey MD at 19:55 EDT , Treatment and Re-Evaluation :: Patient upon initial arrival was yelling, being very disrespectful, swearing, threatening to harm nursing staff as well as please staff. Patient made severalattempts to hit staff and was put in four-point restraints. Patient presents tot emergency department via EMS for intoxication, possible fall. Patient does have history of this. Patient was only in four-point restraint for short time. Patient then began behaving.Patient did receive basic laboratory values, patient's CBC showed a hemoglobin 10.3 which is a chronic stable anemia. Patient's sodium is 132 which is slightly low however baseline for this patient. Patient's kidney function was unremarkable. Magnesium was unremarkable. Patient's alcohol level was 280. Patient received a CT scan of his brain to ensure there is no intracranial hemorrhage, skull fracture. This was negative for any acute process. Patient was given IV Ativan to help him relax. Patient will be discharged home once sober. Patient does have a left skin tear that wasdressed, tetanus vaccination given. Patient instructed to quit drinking or thiscould ultimately kill him. He verbally understands. Patient stable for discharge. DR CALLE NOTE 2300 patient is clinically sober. patient has been walking to the bathroom. Patient is currently eating and drinking. Patient has family member that can come pick him up. Patient is acting more appropriate. Patient is not agitated or combative. Patient would like to go home. Patient refusing any type of alcohol admission or alcohol detox admission. There was a significant amount oftime spent at bedside initially by myself, BUZZ LEE; and excessive amount of nursing staff. Patient was intermittently agitated, combative, secondary to alcohol intoxication. We were going to give patient 2 mg of IV Ativan, but we never ended up giving the Ativan secondary to patient was cooperative and not agitated or combative when he was in the room without nursing staff or physicianstaff in the room Critical care time 35 minutes exclusive from separate billable procedures that were performed. The following was considered in the determination of critical care but not limited to the level of medical decision making, intensive cardiac and/or respiratory monitoring, frequent vital sign monitoring, evaluation of laboratory studies, evaluation of radiographic studies, oxygen monitoring, and constant monitoring and speaking to family at bedside Discharge Plan Triage Chief Complaint: Fall ED Midlevel Provider: Buzz Mayers ED Provider: Jakob Calle Dx/Rx/DC Orders Clinical Impression: Alcohol intoxication, Skin tear Instructions: Alcohol and Older Adults, ED Alcohol Intoxication Prescriptions: No Action doxycycline hyclate 100 mg tablet 100 mg PO BID 13 Days Qty: 26 0RF pantoprazole [Protonix] 40 mg tablet,delayed release (DR/EC) 40 mg PO BID 30 Days Qty: 60 1RF sucralfate 1 gram tablet 1 g PO Q6H 30 Days Qty: 120 0RF lactulose 20 gram/30 mL Solution 10 g PO BID 30 Days Qty: 900 0RF Primary Care Provider: John Springer Referrals: John Springer MD [Primary Care Provider] - Activity Restrictions/Additional Instructions: You were updated on your tetanus vaccination today. Please keep clean your skintear to your left forearm. Try to quit drinking as this could kill you. Disposition Disposition: Home, Self Care What to do if you have Problems For any increased pain, shortness of breath, bleeding, nausea or vomiting, chestpain, or any unexpected problems, contact your Primary Care Provider. Call [facility] ([phone]) or report to the closest Emergency Room. Call 911 if necessary. 02/24/232299 <Electronically signed by Jakob Calle DO> Cosigner Signature (if applicable): 02/24/232026 <Electronically signed by Buzz Mayers HEAD SAMPLER-C> CC: Dr. John Springer MD ~ Signed [facility] Work Phone: 1(753) 557-532107-24-2023 Discharge summary Author Buzz Zayas [facility] February 19, 2023 6:14am Note Date/Time February 18, 2023 6:51 pm [facility] Medical Records Department [address] [place] [address] Emergency Department Summary 02/18/23 MR#: [id number] Acct: [id number] Name: MESSI WALDROP Rep #:[id number] : [id number] 68 From: Home Caceres MD PCP: Dr. John Springer MD Status:RE G ER Location: ED ADDENDUM by Dr. Buzz Zayas MD on 02/19/23 at 0614 Patient was turned over to me. I observed him throughout the night and checked in on him, he was sleeping comfortably. I woke him up at 6:10 AM, he is now lucid and coherent, he tells me he has no recollection of what happened last night he is not suicidal he does not want to hurt himself. He did admit to drinking quite a bit of alcohol last night. He wants to go home which is reasonable at this time he does not want any kind of detox. He did have a CT ofthe head which was normal. 02/19/23 0614<Electronically signed by Buzz Zayas MD> Cosigner Signature (if applicable): cc: Dr. John Springer MD ~* Signed HPI History of Present Illness Chief Complaint: ETOH Intox Informant: patient Narrative Narrative: EMS brings in patient grossly intoxicated, his neighbor called because he was falling all over himself outside and they were afraid he was going to hurt himself or run into traffic on accident. He is not suicidal. He admitted to EMS that he drank a handle of vodka followed by 6 more beers today which is morethan usual but he drinks heavily every day. He states he has been drinking Donte light lately so that he can try to curb his drinking but he does refuses to be admitted to detox when I offer that and states he does not want to stop. He denies any physical complaints right now. He was threatening police and EMS that he was going to punch them en route. [facility] Medical History Acute blood loss anemia Alcohol withdrawal Anxiety and depression At high risk for malnutrition Chewing tobacco use ETOH abuse GI bleed History of cancer tonsil Hyponatremia Home Medications doxycycline hyclate 100 mg tablet 100 mg PO BID 13 days #26 tabs 12/23/22 [Rx Last Taken 01/05/23] lactulose 20 gram/30 mL oral solution 10 g (15 mL) PO BID 30 days #900 mL 12/23/22 [Rx Last Taken 01/05/23] pantoprazole 40 mg tablet,delayed release (Protonix) 40 mg PO BID 30 days #60 tabs 12/23/22 [Rx Last Taken 01/05/23] sucralfate 1 gram tablet 1 g PO Q6H 30 days #120 tabs 12/23/22 [Rx Last Taken 01/05/23] Allergy/AdvReac Type Severity Reaction Status Date / Time No Known Allergies Allergy Verified 12/12/22 18:23 Family History Mother Diabetes Father Diabetes Brother Colon cancer Surgical History History of tonsillectomy and adenoidectomy Social History household members: other details: Lives with his son. Smoking Status: Former smoker Smokeless tobacco user: chewing tobacco and other alcohol intake: current alcohol intake frequency: 3 or more drinks per day details: 8-10 beers daily coupled with hard liquor. substance use type: does not use ROS ROS ED Eyes Eyes: Denies change in vision ENT ENT ED: Denies sore throat Cardiovascular Cardiovascular: Denies chest pain Gastrointestinal Gastrointestinal: Denies abdominal pain, nausea or vomiting Musculoskeletal Musculoskeletal: Denies back pain or neck pain Integumentary Denies abscess Neurologic Neurologic: Denies headache(s) Psychiatric Psychiatric: Denies suicidal thoughts EXAM Physical Exam Const Vital Signs: 02/18/23 18:33 02/18/23 18:55 02/18/23 19:32 Temperature 98 F Temperature Source Temporal Pulse Rate 88 102 H Respiratory Rate 18 16 Blood Pressure 118/73 138/102 H Blood Pressure Mean 88 114 Pulse Ox 99 Oxygen Delivery Method Room Air Room Air Room Air 02/18/23 20:15 02/18/23 22:00 02/18/23 23:00 Temperature Temperature Source Pulse Rate 97 119 H 130 H Respiratory Rate 16 16 20 H Blood Pressure 133/67 H 170/96 H 147/90 H Blood Pressure Mean 89 120 109 Pulse Ox 100 97 99 Oxygen Delivery Method Room Air Room Air Room Air Positive well nourished and well developed General Appearance ED: well developed and NAD HEENT Reports moist mucous membranes normocephalic and atraumatic Eyes PERRL and EOMs intact bilaterally Eyes Narrative: Horizontal nystagmus. Neck full ROM and supple Resp normal respiratory effort and clear to auscultation bilaterally Cardio regular rate, regular rhythm and no murmurs GI non-tender and non-distended Auscultation: normoactive bowel sounds Palpation: soft Back/Spine no CVA tenderness General Back: other FROM Extremity normal to inspection General Extremety ED: Negative for edema, pulses abnormal or tenderness General Extremity: Negative for edema or pulses abnormal Neuro CN's II-XII intact bilaterally and no sensory deficits noted Neuro Narrative: Oriented and grossly intoxicated Sensorium / Orientation: awake and alert Motor Exam: strength 5/5 throughout Psych Psych Narrative: Labile affect. Not suicidal. Skin no rashes or lesions noted and no wounds MDM MDM MDM Narrative Medical decision making narrative: Patient has labile affect, he is intermittently threatening police and staff, and requiring gentle physical restraint and not redirectable verbally for any length of time. He is grossly intoxicated but his vital signs are normal and heis neurologically intact. I do not think he needs an emergent medical work-up, he just needs to be kept safe until he can sober up and leave. He again declines detox. Therefore nursing has physically restrain him and I am giving him a dose of Geodon so that we can minimize time in restraints and allow him torest comfortably. Geodon helped a little but the patient was still agitated. He had to be redirected multiple times by nursing to stay in the bed. At 1 point because of all of this I had nursing give him Ativan 2 mg IM. Again this helped temporarily, and then the patient climbed over the rails out of bed and then fell to the ground, hitting his head against the nearby wall. He scraped his right forearm, and he had a scar on his head that he opened slightly but none ofthis required any repair, he did not have any crepitance or hematoma on his forehead, we did send him to CT scan to ensure that he did not sustain any intracranial injury. Nurse cleansed and dressed his minor wounds. He did not sustain any major injury to his right upper extremity. We put him back in bed in restraints to keep him from injuring himself more/further, and he was given IM Haldol. He will need to be further observed until he is more sober and will be checked out to the night team. Discharge Plan Triage Chief Complaint: ETOH Intox ED Provider: Home Caceres Dx/Rx/DC Orders Clinical Impression: Alcohol intoxication Instructions: ED Alcohol Intoxication Prescriptions: No Action doxycycline hyclate 100 mg tablet 100 mg PO BID 13 Days Qty: 26 0RF pantoprazole [Protonix] 40 mg tablet,delayed release (DR/EC) 40 mg PO BID 30 Days Qty: 60 1RF sucralfate 1 gram tablet 1 g PO Q6H 30 Days Qty: 120 0RF lactulose 20 gram/30 mL Solution 10 g PO BID 30 Days Qty: 900 0RF Primary Care Provider: John Springer Referrals: John Springer MD [Primary Care Provider] - What to do if you have Problems For any increased pain, shortness of breath, bleeding, nausea or vomiting, chestpain, or any unexpected problems, contact your Primary Care Provider. Call [facility] ([phone]) or report to the closest Emergency Room. Call 911 if necessary. 02/19/23 0004 <Electronically signed by Home Caceres MD> Cosigner Signature (if applicable): CC: Dr. John Springer MD ~ Signed [facility] Work Phone: 1(937) 428-434307-02-2023 Emergency department Note* Brett Felipe RN - 01/28/2023 6:47 AM EDT Pt's BG check was 49. Pt given 2 cartons of juice. Brett Felipe RN 01/28/[address] [id number]* Brett Felipe RN - 01/28/2023 6:47 AM EDT Pt's BG check was 49. Pt given 2 cartons of juice. Brett Felipe RN 01/28/23 0647 * Brett Felipe RN - 01/27/2023 10:13 PM EDT RN to room to medicate patient. Pt was standing up in the room pulling off his c-collar and cords stating he's not wearing this stuff anymore and stop putting it back on. Pt redirected to bed, given warm blankets and explained the use of the call light. Informed patient to not get out of bed and call for help when needed. Will continue to monitor. Brett Felipe RN 01/27/23 2216 * Clifton Mahmood MD - 01/27/2023 8:17 PM EDT EMERGENCY DEPARTMENT ENCOUNTER Pt Name: Messi Waldrop Birthdate 1955 Date of evaluation: 01/27/2023 ED Provider: CLIFTON MAHMOOD MD CHIEF COMPLAINT Chief Complaint Patient presents with Fall Trauma team fall with AMS, etoh HISTORY OF PRESENT ILLNESS (Location/Symptom, Timing/Onset, Context/Setting, Quality, Duration, Modifying Factors, Severity) Note limiting factors. I wore appropriate PPE for the entirety of this encounter. HPI Messi Waldrop is a 68 y.o. who presents to the emergency department for follow-up. Patient was found down with a presumed fall. Unknown what patient's last known well is. He lives with his brother. Per EMS patient was combative with a GCS of 13. He attempted to punch EMS providers requiring restraints on route. Patient does endorse drinking alcohol including Merlot and vodka. Patient isaltered and otherwise unable to give his own history. Nursing Notes were reviewed. Limitations to history: Intoxication Outside historians: EMS REVIEW OF SYSTEMS Review of Systems Pertinent positives and negatives as per HPI. PAST MEDICAL HISTORY Past Medical History: Diagnosis Date Prediabetes SURGICAL HISTORY History reviewed. No pertinent surgical history. CURRENT MEDICATIONS Previous Medications No medications on file ALLERGIES Patient has no known allergies. FAMILY HISTORY No family history on file. SOCIAL HISTORY Social History Socioeconomic History Marital status: Unknown SCREENINGS Prosperity Coma Scale Best Eye Response: Spontaneous Best Verbal Response: Oriented Best Motor Response: Follows commands Evelio Coma Scale Score: 15 PHYSICAL EXAM ED Triage Vitals Temp Heart Rate Resp BP -- 01/27/23202601/27/23202601/27/232026 93 20 (!) 148/80 SpO2 Temp src Heart Rate Source Patient Position 01/27/232033 -- -- 01/27/232026 99 % Lying BP Location FiO2 (%) -- -- Physical Exam Constitutional: General: He is in acute distress. HENT: Head: Normocephalic. Comments: Hematoma over right eyebrow with 4 cm laceration It is gaping and actively bleeding. Right Ear: External ear normal. Left Ear: External ear normal. Ears: Comments: No hemotympanum bilaterally. Nose: Nose normal. Comments: No nasal septal hematoma. Mouth/Throat: Comments: No blood or trauma the oropharynx. Midface stable nontender. Eyes: Pupils: Pupils are equal, round, and reactive to light. Comments: Pupils 3 mm bilaterally. Neck: Comments: Cervical collar in place. No C-spine tenderness. Cardiovascular: Rate and Rhythm: Normal rate and regular rhythm. Pulses: Normal pulses. Heart sounds: Normal heart sounds. Pulmonary: Effort: Pulmonary effort is normal. Breath sounds: Normal breath sounds. Chest: Chest wall: No tenderness. Abdominal: General: There is no distension. Palpations: Abdomen is soft. Tenderness: There is no abdominal tenderness. Comments: Bilateral flanks atraumatic. Genitourinary: Comments: Good gluteal squeeze. Musculoskeletal: Right lower leg: No edema. Left lower leg: No edema. Comments: Pelvis stable to AP lateral compression. TLS spines nontender. Skin: General: Skin is warm and dry. Comments: Superficial skin tears bilateral upper extremities. Ecchymosis right shoulder. Neurological: Mental Status: He is alert. Sensory: No sensory deficit. Motor: No weakness. Comments: GCS 14 (E4, M5, V5) DIAGNOSTIC RESULTS RADIOLOGY (Per Emergency Physician): Interpretation per the Radiologist below, if available at the time of this note: CT head wo IV contrast Final Result No intracranial traumatic injuries. Report Dictated on Electronically Signed By: Junior Vera Electronically Signed Date/Time: 01/27/2023 8:[address] cervical spine wo IV contrast Final Result No acute cervical spine fracture or traumatic malalignment. Report Dictated on Electronically Signed By: Junior Vera Electronically Signed Date/Time: 01/27/2023 8:[address] chest abdomen pelvis without contrast Final Result 1. Bilateral subacute to chronic rib fracture deformities. No acute rib fractures. 2. No acute traumatic injury in the chest, abdomen, or pelvis. Report Dictated on Electronically Signed By: Raymond Khanna Electronically Signed Date/Time: 01/27/2023 9:16 PM EDT US TRAUMA FAST POCUS (Results Pending) LABS: Labs Reviewed CBC WITH AUTO DIFFERENTIAL - Abnormal Result Value Auto WBC 8.4 RBC 3.40 (*) Hemoglobin 10.9 (*) Hematocrit 31.8 (*) MCV 93.6 MCH 32.0 MCHC 34.1 RDW 14.9 (*) Platelets 353 MPV 7.2 (*) nRBC 0.0 Neutrophils Relative 80.9 (*) Lymphocytes Relative 11.0 (*) Monocytes Relative 7.3 Eosinophils Relative 0.0 (*) Basophils Relative 0.8 Neutrophils Absolute 6.8 Lymphocytes Absolute 0.9 (*) Monocytes Absolute 0.6 Eosinophils Absolute 0.0 Basophils Absolute 0.1 LACTIC ACID, PLASMA - Abnormal LACTIC ACID 3.3 (*) ETHANOL - Abnormal ETHANOL IN SER/PLAS 0.224 (*) Narrative: NOTE: This result is for medical treatment only. Analysis performed using non- forensic procedures. BASIC METABOLIC PANEL - Abnormal SODIUM 129 (*) POTASSIUM 4.1 CHLORIDE 101 CARBON DIOXIDE 17 (*) UREA NITROGEN 5 (*) CREATININE 0.92 GLUCOSE 43 (*) CALCIUM 7.9 (*) ANION GAP 11 eGFR >90.0 Narrative: Slightly Hemolyzed. Interpret POTASSIUM with caution. LACTIC ACID, PLASMA - Abnormal LACTIC ACID 2.5 (*) Narrative: Critical Panic Lactate has fallen below the [facility] CCL/ED Panic Call Protocol. For [facility] ED patients ONLY the Lactate Levels greater than 2.0 and less than or equal to 4.0 mmol/L fall under the Panic CallPolicy. POCT GLUCOSE METER UNSOLICITED RESULTS - Abnormal Glucose 117 (*) Narrative: Performed by: Holly Dela Cruz [facility], [address] [place] [address] CLIA ID: [id number] MAGNESIUM - Normal MAGNESIUM 2.1 Narrative: Slightly Hemolyzed. Interpret with caution. PHOSPHORUS - Normal PHOSPHORUS 4.2 Narrative: Slightly Hemolyzed. Interpret with caution. PROTIME & APTT - Normal PROTHROMBIN TIME 10.6 INR 1.0 APTT 24.9 BLOOD TYPE AND SCREEN GEL ABO Grouping O Antibody Screen NEG Rh Type POS BASIC METABOLIC PANEL WITH MG REFLEX Narrative: The following orders were created for panel order Basic Metabolic Panel w/ Mg Reflex. Procedure Abnormality Status --------- ------ Basic metabolic panel[[id number]] Abnormal Final result Please view results for these tests on the individual orders. DRUGS OF ABUSE AMPHETAMINE SCREEN Negative BARBITURATES SCREEN Positive BENZODIAZEPINE SCREEN Negative COCAINE METAB. SCREEN Negative METHADONE SCREEN Negative OPIATES SCREEN Negative OXYCODONE SCREEN Negative PHENCYCLIDINE SCREEN Negative Narrative: The expected value for all of the drugs listed above is Negative. The following drugs or drug groups have been screened for by Immunoassay at the following thresholds: Amphetamine class (1000 ng/mL) Barbiturates (200 ng/mL) Benzodiazepines (200 ng/mL) Cocaine (300 ng/mL) Methadone (300 ng/mL) Opiates (300 ng/mL) Oxycodone (100 ng/mL) PCP (25 ng/mL) NOTE: These results are for medical treatment only. Analysis performed using non-forensic procedures. POSITIVE results are NOT confirmed by a more specific alternative method unless requested. If confirmation is needed, request confirmation under separateorder. CONFIRMATORY ABO/RH ABO Grouping O Rh Type POS POCT GLUCOSE METER All other labs were within normal range or not returned as of this dictation. EMERGENCY DEPARTMENT COURSE and DIFFERENTIAL DIAGNOSIS/MDM: Vitals: Vitals: 01/27/23 2218 01/28/23 0055 01/28/23 0226 01/28/23 0521 BP: 129/74 131/75 (!) 143/72 Patient Position: Lying Pulse: 94 91 95 Resp: 16 16 Temp: 37.2 C (98.9 F) SpO2: 99% 100% 97% The patient presented with a chief complaint of found down with presumed fall. The differential diagnosis associated with this patient's presentation includes intracranial hemorrhage, electrolyte abnormalities, alcohol use, drug use. Our workup consisted of ordering/reviewing trauma labs and imaging. Trauma team activated prior to patient's arrival as he had fallen and had a GCS of 13. He was evaluated alongside trauma surgery. Primary and secondary survey remarkable for GCS of 14 and a laceration above his right eyebrow. Laceration repaired by trauma surgery. Labs markable for hyperglycemia 43. D50 ordered. Lactic acid elevated at 2.5. 500 cc normal saline ordered. Ethanol elevated 0.224. Urine drug screen positive for barbiturates. CT head, CT C-spine, CT chest abdomen pelvis with no acute traumatic injuries. Patient with improvement of his blood glucose to 117 after D50. Patient requires sober reevaluation. Once sober, he will need to be reevaluated by trauma surgery. I have signed out Pa Hunt's Emergency Department care to Dr. Almaguer. We discussed the pertinent history, physical exam, completed/pending test results (if applicable) and current treatment plan. Please refer to his/her chart for the patients remaining Emergency Department course and final disposition. 6:22 AM CLIFTON MAHMOOD MD ED Course as of 01/28/23621 [place] Jan 28, 2023606 Signed out to me by Dr. Mahmood. Sober re-eval. Trauma needs to complete tertiary exam. [MR] ED Course User Index [MR] Jaz Almaguer, DO Diagnoses as of 01/28/23621 Fall, initial encounter Head injury, initial encounter Laceration of scalp, initial encounter Alcoholic intoxication with complication (CMS/HCC) (HCC) Hypoglycemia Hypocalcemia Hyponatremia External records reviewed: none Diagnostics interpreted by me: none Discussions with other clinicians: [employer]ist trauma surgery Chronic conditions impacting care: none Social determinants of health affecting care: none ED Medications managed: Medications qyjwrefc-gkozdaacvn-dekizylrv (Neosporin) ointment ( Topical Given 01/27/23 8650) sodium chloride 0.9 % 1,000 mL with multiple vitamin 10 mL, thiamine 100 mg, folic acid 1 mg infusion (100 mL/hr IntraVENous New Bag 01/27/232154) dextrose 50 % solution 50 mL (50 mL IntraVENous Given 01/27/232151) sodium chloride 0.9 % bolus 500 mL (0 mL IntraVENous Stopped 01/28/23425) calcium gluconate 2000 mg in 100 mL IVPB premix (0 mg IntraVENous Stopped 01/28/23425) Prescription drugs considered: As above PROCEDURES: Unless otherwise noted below, none Procedures FINAL IMPRESSION 1. Fall, initial encounter 2. Head injury, initial encounter 3. Laceration of scalp, initial encounter 4. Alcoholic intoxication with complication (CMS/HCC) ([facility]) 5. Hypoglycemia 6. Hypocalcemia 7. Hyponatremia DISPOSITION PATIENT REFERRED TO: No follow-up provider specified. DISCHARGE MEDICATIONS: New Prescriptions No medications on file (Comment: Please note this report has been produced using speech recognition software and may contain errors related to that system including errors in grammar, punctuation, and spelling, as well as words and phrases that may be inappropriate. If there are any questions or concerns please feel freeto contact the dictating provider for clarification.) CLIFTON MAHMOOD MD (electronically signed) Emergency Medicine Provider Clifton Mahmood MD Resident 01/28/23621 * Titi Inman MD - 01/27/2023 8:17 PM EDT EMERGENCY DEPARTMENT ENCOUNTER Pt Name: Messi Waldrop Birthdate 1955 Date of evaluation: 01/27/2023 ED Provider: Titi Inman MD CHIEF COMPLAINT Chief Complaint Patient presents with Fall Trauma team fall with AMS, etoh HISTORY OF PRESENT ILLNESS (Location/Symptom, Timing/Onset, Context/Setting, Quality, Duration, Modifying Factors, Severity) Note limiting factors. I wore appropriate PPE for the entirety of this encounter. HPI Messi Waldrop is a 68 y.o. who presents to the emergency department as a trauma alert 68-year-old male presents as a trauma team. History of prediabetes and alcohol consumption. Patientis very intoxicated, had an unwitnessed fall earlier today. It is not known exactly where the patient was found. EMS reported that the patient was combative and verbally belligerent, and may have soft restrained him to their cot. Patient has skin tear on the posterior right wrist and a laceration to the left forehead with a hematoma and some active bleeding. There is a left-sided raccoon's eye present. Patient is very intoxicated and alternates between being verbally belligerent and laughing inappropriately. Further review of systems limited by intoxication. Nursing Notes were reviewed. Limitations to history: Intoxication Outside historians: EMS REVIEW OF SYSTEMS Review of Systems Review of systems limited by intoxication PAST MEDICAL HISTORY Past Medical History: Diagnosis Date Prediabetes SURGICAL HISTORY History reviewed. No pertinent surgical history. CURRENT MEDICATIONS Previous Medications No medications on file ALLERGIES Patient has no known allergies. FAMILY HISTORY No family history on file. SOCIAL HISTORY Social History Socioeconomic History Marital status: Unknown SCREENINGS Evelio Coma Scale Best Eye Response: Spontaneous Best Verbal Response: Oriented Best Motor Response: Follows commands Prosperity Coma Scale Score: 15 PHYSICAL EXAM ED Triage Vitals Temp Heart Rate Resp BP 01/27/23221701/27/23202601/27/23202601/27/232026 37.2 C (98.9 F) 93 20 (!) 148/80 SpO2 Temp src Heart Rate Source Patient Position 01/27/232033 -- -- 01/27/232026 99 % Lying BP Location FiO2 (%) -- -- Physical Exam General: Intoxicated adult male lying Semi-Barrios's in bed, arrives with soft restraints attached to the EMS cot HENT: There is a 4 cm laceration on the left side of the patient's forehead with an underlying hematoma. There is no active hemorrhage from the laceration but trauma did express some blood out of thehematoma during the examination. EOMI in both eyes, there is obvious left-sided raccoon's eye/periorbital bruising noted. There is no right-sided periorbital bruising noted No CSF rhinorrhea or otorrhea No hemotympanum bilaterally Oropharyngeal mucus membranes moist, pink, no exudate Neck: Cervical collar applied by the trauma team in the ED Cardio: Tachycardic, nl s1 s2 no m/r/g, extremities warm, dry, well perfused, non-edematous, 2+ bilateral radial pulses, 2+ bilateral DP pulses Lungs: CTAB, no wheezes, rales, rhonchi, normal work of breathing Abdomen: Soft, NT, ND, non-rigid, BS x 4 normal MSK: No midline cervical thoracic or lumbar spine pain to palpation Chest wall stable and nontender Pelvis stable and nontender Minimal if any pain to palpation on the posterior right wrist where there is a superficial skin tear present. Soft restraints removed during the course of the trauma evaluation. Patient has full range of flexion extension of the right wrist and all the fingers on the right hand with no pain or limitation of range of motion. Otherwise, no sign of injury to any extremity, full range of motion of all 4 extremities without pain Skin: Warm, dry, pink. See above regarding the scalp laceration in the right wrist skin tear Neuro: Alert, oriented to person and place. Very intoxicated, alternates between laughing inappropriately and being vulgar and belligerent. Normal 5/5 strength and normal sensation all 4 extremities Cranial nerves II through XII normal Slurred speech consistent with alcohol intoxication Clumsy coordination in all 4 extremities consistent with alcohol intoxication No facial droop DIAGNOSTIC RESULTS RADIOLOGY (Per Emergency Physician): Interpretation per the Radiologist below, if available at the time of this note: CT head wo IV contrast Final Result No intracranial traumatic injuries. Report Dictated on Electronically Signed By: Junior Vera Electronically Signed Date/Time: 01/27/2023 8:[address] cervical spine wo IV contrast Final Result No acute cervical spine fracture or traumatic malalignment. Report Dictated on Electronically Signed By: Junior Vera Electronically Signed Date/Time: 01/27/2023 8:[address] chest abdomen pelvis without contrast Final Result 1. Bilateral subacute to chronic rib fracture deformities. No acute rib fractures. 2. No acute traumatic injury in the chest, abdomen, or pelvis. Report Dictated on Electronically Signed By: Raymond Khanna Electronically Signed Date/Time: 01/27/2023 9:16 PM EDT US TRAUMA FAST POCUS (Results Pending) CT head shows no intracranial traumatic injuries. Reviewed by radiology and by me. CT cervical spine shows no acute cervical spine fracture or traumatic Moderate malalignment. Reviewed by radiology and by me. CT chest abdomen pelvis shows bilateral subacute to chronic rib fracture deformities but no acute rib fractures/no new rib fractures. Otherwise no acute traumatic injury to the chest abdomen and pelvis. Reviewed by radiology and by me. LABS: Labs Reviewed CBC WITH AUTO DIFFERENTIAL - Abnormal Result Value Auto WBC 8.4 RBC 3.40 (*) Hemoglobin 10.9 (*) Hematocrit 31.8 (*) MCV 93.6 MCH 32.0 MCHC 34.1 RDW 14.9 (*) Platelets 353 MPV 7.2 (*) nRBC 0.0 Neutrophils Relative 80.9 (*) Lymphocytes Relative 11.0 (*) Monocytes Relative 7.3 Eosinophils Relative 0.0 (*) Basophils Relative 0.8 Neutrophils Absolute 6.8 Lymphocytes Absolute 0.9 (*) Monocytes Absolute 0.6 Eosinophils Absolute 0.0 Basophils Absolute 0.1 LACTIC ACID, PLASMA - Abnormal LACTIC ACID 3.3 (*) ETHANOL - Abnormal ETHANOL IN SER/PLAS 0.224 (*) Narrative: NOTE: This result is for medical treatment only. Analysis performed using non- forensic procedures. BASIC METABOLIC PANEL - Abnormal SODIUM 129 (*) POTASSIUM 4.1 CHLORIDE 101 CARBON DIOXIDE 17 (*) UREA NITROGEN 5 (*) CREATININE 0.92 GLUCOSE 43 (*) CALCIUM 7.9 (*) ANION GAP 11 eGFR >90.0 Narrative: Slightly Hemolyzed. Interpret POTASSIUM with caution. POCT GLUCOSE METER UNSOLICITED RESULTS - Abnormal Glucose 117 (*) Narrative: Performed by: [facility], [address] [place] [address] CLIA ID: [id number] MAGNESIUM - Normal MAGNESIUM 2.1 Narrative: Slightly Hemolyzed. Interpret with caution. PHOSPHORUS - Normal PHOSPHORUS 4.2 Narrative: Slightly Hemolyzed. Interpret with caution. PROTIME & APTT - Normal PROTHROMBIN TIME 10.6 INR 1.0 APTT 24.9 BLOOD TYPE AND SCREEN GEL ABO Grouping O Antibody Screen NEG Rh Type POS BASIC METABOLIC PANEL WITH MG REFLEX Narrative: The following orders were created for panel order Basic Metabolic Panel w/ Mg Reflex. Procedure Abnormality Status --------- ------ Basic metabolic panel[[id number]] Abnormal Final result Please view results for these tests on the individual orders. DRUGS OF ABUSE AMPHETAMINE SCREEN Negative BARBITURATES SCREEN Positive BENZODIAZEPINE SCREEN Negative COCAINE METAB. SCREEN Negative METHADONE SCREEN Negative OPIATES SCREEN Negative OXYCODONE SCREEN Negative PHENCYCLIDINE SCREEN Negative Narrative: The expected value for all of the drugs listed above is Negative. The following drugs or drug groups have been screened for by Immunoassay at the following thresholds: Amphetamine class (1000 ng/mL) Barbiturates (200 ng/mL) Benzodiazepines (200 ng/mL) Cocaine (300 ng/mL) Methadone (300 ng/mL) Opiates (300 ng/mL) Oxycodone (100 ng/mL) PCP (25 ng/mL) NOTE: These results are for medical treatment only. Analysis performed using non-forensic procedures. POSITIVE results are NOT confirmed by a more specific alternative method unless requested. If confirmation is needed, request confirmation under separateorder. CONFIRMATORY ABO/RH ABO Grouping O Rh Type POS POCT GLUCOSE METER Metabolic panel shows metabolic acidosis, normal anion gap, good kidney function, glucose low at 43. This may be secondary to malnutrition. Patient was ordered D50 to replete the hypoglycemia, subsequent blood sugar improved up to 117 Low sodium at 129, normal potassium of 4.1 Low calcium at 7.9 Lactic acidosis at 3.3. We will rehydrate patient with combination of normal saline IV fluids to correct the hyponatremia and lactic acidosis as well as a banana bag for possible malnutrition given alcohol consumption Normal white blood cell count Mild anemia Normal platelet count INR 1.0 Alcohol elevated at 224 Toxicology screen positive for barbiturates, otherwise toxicology screen negative All other labs were within normal range or not returned as of this dictation. EMERGENCY DEPARTMENT COURSE and DIFFERENTIAL DIAGNOSIS/MDM: Vitals: Vitals: 01/27/23 2034 01/27/23 2046 01/27/23 2218 01/28/23 0055 BP: 115/78 132/76 129/74 Patient Position: Pulse: 105 96 94 Resp: 18 18 Temp: 37.2 C (98.9 F) SpO2: 99% 99% 99% Medications chxxvcvc-vporyldozu-esqdpwipi (Neosporin) ointment ( Topical Given 01/27/232302) sodium chloride 0.9 % 1,000 mL with multiple vitamin 10 mL, thiamine 100 mg, folic acid 1 mg infusion (100 mL/hr IntraVENous New Bag 01/27/232154) dextrose 50 % solution 50 mL (50 mL IntraVENous Given 01/27/232151) 68-year-old male presents as a trauma alert Patient has obvious alcohol intoxication with objective craniofacial trauma which will require sutures for the scalp laceration. He will need standard trauma labs, imaging per trauma team. The soft restraints that EMS had been utilizing were discontinued upon arrival to the trauma bay, and patient while still belligerent was verbally consolable and redirectable by ED team. Patient will require a tertiary trauma survey when he is more sober. MDM elements: The patient presented with chief complaint of alcohol intoxication with head injury. The differential diagnosis associated with this patient's presentation includes skull fracture, brain bleed, scalp laceration, cervical spine fracture, rib fracture, alcohol intoxication, drug use orcombination of the above. Our workup consisted of ordering/reviewing: CT scans per trauma team, standard trauma labs. Trauma will suture scalp laceration. To aid in management, I performed an independent interpretation of CT scan(s) see above Patient blood work, see above. The patient will be disposition will depend on findings of trauma tertiary survey when patient is more sober. Patient is in agreement with this plan. Patient's care was significantly impacted by social determinants of health including Alcoholism. PROCEDURES: Unless otherwise noted below, none Procedures All labs and imaging reviewed. See extensive discussion above. Patient had hypoglycemia which was corrected with D50 Patient had hyponatremia and lactic acidosis which we are treating with normal saline IV fluids. Banana bag also started in case of malnutrition Patient also had hypocalcemia which was treated with IV calcium gluconate Patient needs more time to sober up. When he is fully sober, trauma will perform a tertiary survey and decide if he is safe for discharge home. I have also ordered a repeat lactic acid to ensure thatthe lactic acidosis clears following appropriate fluid resuscitation. This is still pending at thistime. Disposition: Pending trauma tertiary survey for clearance for discharge Working clinical impression: Fall, head injury, scalp laceration, alcohol intoxication with complication, hypoglycemia, hypocalcemia, hyponatremia Patient was seen and evaluated by the Resident Physician as well as myself. I agree with the history, physical exam findings, and plan unless otherwise stated. I have signed out patient's Emergency Department care to Dr. Yee. We discussed the pertinent history, physical exam, completed/pending test results (if applicable) and current treatment plan. Please refer to his/her chart for the patient's remaining Emergency Department course and final disposition. CRITICAL CARE TIME FINAL IMPRESSION 1. Fall, initial encounter 2. Head injury, initial encounter 3. Laceration of scalp, initial encounter 4. Alcoholic intoxication with complication (CMS/HCC) ([facility]) 5. Hypoglycemia 6. Hypocalcemia 7. Hyponatremia DISPOSITION PATIENT REFERRED TO: No follow-up provider specified. DISCHARGE MEDICATIONS: New Prescriptions No medications on file (Comment: Please note this report has been produced using speech recognition software and may contain errors related to that system including errors in grammar, punctuation, and spelling, as well as words and phrases that may be inappropriate. If there are any questions or concerns please feel freeto contact the dictating provider for clarification.) Titi Inman MD (electronically signed) Emergency Medicine Provider Titi Inman MD 01/28/23 0135 * Renetta Carlos RN - 01/27/2023 8:17 PM EDT Trauma team activated for this patient brought in by [facility] s/p unwitnessed fall with altered mental status. Positive ETOH. See trauma narrator for details of encounter. * Renetta Carlos RN - 01/27/2023 8:17 PM EDT Renetta Carlos RN RN spent 25 total minutes providing direct, htoy-zc-[id number] critical care to the patient for: Interventions [] Administration of ACLS drugs in cardiac arrest [] Arterial Line Insertion [] Central Line Insertion [] Chest Tube Insertion [] CPR [] Defibrillation [] Intubation [] Therapeutic hypothermia [] Pericardiocentesis [] Ventilator Management [] Other: ( if checked, please document in ED NOTE below) Medications: [] Infusions of Vasoactive medications [] adenosine [] nitroglycerin [] dopamine [] norepiniphrine [] labetalol [] sodium nitroprusside [] metoprolol [] Multiple IV medications which require constant monitoring [] amiodarone [] Ephedrine sulphate [] digoxin [] adrenaline [] dobutamine [] Hydralazine hydrochloride [] hydrochloride [] Insulin Drip Documentation of the following Teams: [] Surgical Team [x] Trauma Team [] Stroke Team [] STEMI Team Documentation of the Following Conditions: [] Abdominal aneurysm (Rupture or dissection) [] Acute Myocardial Infarction [] Acute Renal Failure [] Conscious Sedation [] Central Nervous System Failure [] Cerebral Hemorrhage [] Circulatory Failure [] DKA [] Drug Overdose impairing vital function (respiratory, cardiac) [] Respiratory Failure [] Sepsis [] Shock Circulatory Failure [] Status Epilepticus - intractable seizures ED NOTE: Fall, unwitnessed, with altered mental status Renetta Carlos RN 01/27/232048 * Marlene Huggins RN - 01/27/2023 8:17 PM EDT Bed: 18 Expected date: Expected time: Means of arrival: Comments: 77 Marlene Huggins RN 01/27/232106 documented in this [facility]07-02-2023 History of Present illness Narrative* Evelina Canas APRN - JESUS - 01/28/2023 6:14 AM EDT Department of Trauma / Critical Care Tertiary Survey Date of Trauma: 01/27/2023 8:17 PM HAYDEE/HPI: Found down 68 y.o. yom status post found down, presumptive fall. The incident happened around unknown time, unknown last seen normal. Patient reports he lives with his brother. Patient was combative with EMS, attempted to punch and required restraints en route. Patient pain level currently is 3/10. Positive EtOH, pt endorses drinking Merlot and Vodka today. PMH: Past Medical History: Diagnosis Date Prediabetes PSH: History reviewed. No pertinent surgical history. PCP: No primary care provider on file. Physical Exam Constitutional: Appearance: He is ill-appearing. HENT: Head: Normocephalic. Comments: Right forehead laceration with nylon sutures in place. Dried blood on face and scalp Right Ear: External ear normal. Left Ear: External ear normal. Nose: Nose normal. Eyes: General: Right eye: No discharge. Left eye: No discharge. Cardiovascular: Rate and Rhythm: Normal rate. Pulses: Normal pulses. Pulmonary: Effort: Pulmonary effort is normal. No respiratory distress. Breath sounds: No stridor. Wheezing present. Chest: Chest wall: No tenderness. Abdominal: General: There is no distension. Palpations: Abdomen is soft. Tenderness: There is no abdominal tenderness. Musculoskeletal: General: No swelling or tenderness. Normal range of motion. Cervical back: Normal range of motion and neck supple. No rigidity or tenderness. Skin: General: Skin is warm and dry. Capillary Refill: Capillary refill takes less than 2 seconds. Neurological: General: No focal deficit present. Mental Status: He is alert and oriented to person, place, and time. Comments: Shaky movement/tremors Psychiatric: Comments: Mildly anxious Extremity PhysicalExam RUE: Tenderness: absent Edema: absent ROM: normal RLE: Tenderness: absent Edema: absent ROM: normal LUE: Tenderness:absent Edema: absent ROM: normal LLE:: absent Edema: absent ROM:normal Review of Imaging: CT chest abdomen pelvis without contrast Result Date: 01/27/2023 [facility] 1955 [id number] Exam Date/Time: 01/27/2023 20:48 Procedure: CT CHEST ABDOMEN PELVIS WO CONTRAST Ordering Provider: INMAN DOUGLAS Reason For Exam: trauma EXAM: CT Chest, Abdomen, and Pelvis INDICATION: Trauma,fall COMPARISON: none TECHNIQUE: CT of the chest, abdomen, and pelvis was performed without intravenous contrast. Coronal and sagittal reformats were obtained. Dose reduction was employed with automated exposure control. FINDINGS: LUNG AND LARGE AIRWAYS: Central airways are patent. There is biapical pleural-parenchymal scarring. No pulmonary mass or consolidation.. PLEURA: within normal limits. VE SSELS: Atherosclerotic changes in the aorta and coronary arteries. HEART: normal size. No pericardial effusion. MEDIASTINUM AND MAXIM: No mediastinal or bulky hilar lymphadenopathy. CHEST WALL AND LOWER NECK: within normal limits. ABDOMEN: LIVER: within normal limits. BILE DUCTS: normal caliber. GALLBLADDER: No calcified gallstones. Normal caliber wall. PANCREAS: within normal limits. SPLEEN: within normal limits. ADRENALS: within normal limits. KIDNEYS: There is an exophytic cyst in the upper pole the right kidney measuring up to 1.1 cm. No renal calculi or hydronephrosis. PELVIS: REPRODUCTIVE ORGANS: no pelvic masses. URETERS: within normal limits. BLADDER: within normal limits. BOWEL: Normal caliber. Few scattered colonic diverticula. Appendix is nondilated. No enlarged mesenteric lymphnodes. PERITONEUM: No ascites or free air. No fluid collection. VESSELS: Within normal limits. LYMPH NODES: No enlarged nodes. RETROPERITONEUM: within normal limits. ABDOMINAL WALL: within normal limits. BONES: There are subacute to chronic right second through 11th anterolateral rib fractures and t hird through ninth anterolateral left rib fractures. 1. Bilateral subacute to chronic rib fracture deformities. No acute rib fractures. 2. No acute traumatic injury in the chest, abdomen, or pelvis. Report Dictated on Electronically Signed By: Raymond Khanna Electronically Signed Date/Time: 01/27/2023 9:[address] cervical spine wo IV contrast Result Date: 01/27/2023 Patient Name: PA HUNT : 1955 Exam Date/Time: 01/27/2023 20:48 Procedure: CT CERVICAL SPINE WO IV CONTRAST Ordering Provider:INMAN DOUGLAS Reason For Exam: Trauma EXAMINATION: CT CERVICAL SPINE WO IV CONTRAST CLINICAL HISTORY: Trauma COMPARISON: None TECHNIQUE: Thin isotropic axial images were obtained from the skull base to the upper thoracic spine without intravenous contrast. Dose reduction was employed with automated exposure control. FINDINGS: Craniocervical Junction: Normal alignment. Alignment: Anatomic Vertebrae: No acute fracture or traumatic malalignment. No aggressive osseous lesions. Soft Tissues: No acute abnormality. Canal and Foramina: Moderate multilevel cervical spondylosis without critical spinal canal stenosis. No acute cervical spine fracture or traumatic malalignment. Report Dictated on Electronically Signed By: Junior Vera Electronically Signed Date/Time: 01/27/2023 8:[address] head wo IV contrast Result Date: 01/27/2023 Patient Name: PA HUNT : 1955 Exam Date/Time: 01/27/2023 20:48 Procedure: CT HEAD WO IV CONTRAST Ordering Provider: INMAN DOUGLAS Reason For Exam: Trauma CT HEAD WITHOUT CONTRAST CLINICAL HISTORY: Trauma COMPARISON: None TECHNIQUE: Helical CT of the brain without contrast. Dose reduction was employed with automated exposure control. FINDINGS: Acute Findings: No hemorrhage, mass, or infarct. Chronic Changes: None identified. Ventricles and sulci: Within normal limits for age. Other: Scalp hematoma. No underlying calvarial fracture. No intracranial traumatic injuries. Report Dictated on Electronically Signed By: Junior Vera Electronically Signed Date/Time: 01/27/2023 8:52 PM EDT Incidental Findings: None Assessment: 68 year old male s/p found down at home + ETOH with facial laceration and concussion. Problem List: Patient Active Problem List Diagnosis Concussion with loss of consciousness ETOH abuse Forehead laceration, initial encounter Plan: - Cervical collar removed by patient - Tertiary exam without any new traumatic injuries - Ambulate per ED - Dispo per ED - Follow up in trauma clinic by Friday 02/02 for suture removal - Discussed with Dr. Kaiser Follow up recommendations: Trauma Clinic PT/OT Recommendations: Per ED Weight-Bearing Status: RUE: AT RLE: AT LUE: AT LLE: AT [facility] [employer] CNP 01/28/23 9:14 AM Associated attestation - Anum Kaiser MD - 01/28/2023 9:46 AM EDT I agree with the assessment and the plan as documented by the [employer] below. Anum Kaiser MD documented in this [facility]07-01-2023 Note Attestation signed by Anum Kaiser MD at 01/28/2023 9:47 AM I attest that I was present for the critical portions of the procedure. This note is electronically signed by: Anum Kaiser MD 9:47 AM, 01/28/2023. PATIENT NAME: Pa Hunt : 1955 TODAY'S DATE: 01/27/2023 Laceration Repair Consent (The indications, risks, benefits, alternatives to the procedure were explained to the patient/surrogate decision maker and their questions answered. Consent was obtained to proceed with the procedure) Consent obtained by: Emergent, patient intoxicated Consent given by: Emergent Risks/Benefits discussed: unable to explain due to emergent situation or patient condition Alternatives discussed: N/A [place] Protocol Procedure explained and questions answered to patient or proxy's satisfaction: Yes Imaging studies available: Yes Time out completed:(Time out was completed immediately prior to the start of the procedure which included verification of the correct patient, correct site and agreement on the procedure to be done) Yes Anesthesia Method: local infiltration Laceration details Location: scalp Length (cm): 4 Depth (mm): 5 Repair type: simple Pre-procedure details Preparation: patient was prepped and draped in usual sterile fashion Exploration Hemostasis achieved with : direct pressure and epinephrine Wound exploration: entire depth of wound probed and visualized Wound extent: epidermis and dermis Contaminated: Yes Treatment Area cleansed with : betadine and saline Amount of cleaning: standard Irrigation: sterile saline Irrigation volume (ml): 1L Irrigation method: pressure wash Visualized foreign bodies removed: None Repair Suture size: 4-0 Suture material: chromic gut Technique: simple interrupted Method: sutures Number of sutures/rodrick: 8 Approximation: close Post-procedure details Dressing: antibiotic ointment Patient tolerated procedure: tolerated well, no immediate complications Comments: none [facility] [id number] Note Attestation signed by Anum Kaiser MD at 01/28/2023 9:45 AM ATTENDING ADDENDUM: I independently saw and evaluated the patient. I personally obtained the jiménez and critical portion of the history and physical exam. I reviewed and agree with the documentation below. I personally reviewed the patient's labs and imaging studies. I was present in the trauma bay prior to patient's arrival. I was present by the bedside for the primary and secondary survey, as well as CT scan. HPI: 68 y.o. male with acute alcohol intoxication, found down with left forehead laceration, presumably secondary to a fall. Per EMS patient was combative with an altered mental status. On arrival, patient was calm and cooperative, although appeared acutely intoxicated. Primary survey revealed: patent airway, equal breath sounds, and hemodynamically stable. GCS 15, pupils equal and reactive. Secondary survey revealed laceration above left eyebrow.. Trauma evaluation revealed: 1. CT head - No evidence of intracranial injury 2. CT C-spine - No evidence of cervical spine injury 3. CT Chest/abdomen/pelvis - chronic rib fractures, no acute traumatic injuries Labs significant for ETOH 0.224, lactic acid 3.3, hyponatremia (Na 129), anemia (Hb 10.9) Tox screen positive for barbituates Assessment & Plan: 68 y.o. male who presents s/p fall while acutely intoxicated, found to have no significant injuries. - Cervical collar removed - scalp laceration repaired w/ absorbable suture - IV fluid bolus for elevated lactic acid - electrolyte abnormalities likely due to alcohol intoxication - No further work-up indicated from a trauma perspective - Dispo per ED Level of Medical Decision Making: risk of morbidity from additional diagnostic testing or treatment due to low GCS []High [x]Moderate []Low Complexity: Acute illness with systemic symptoms (MOD) Risk: Prescription drug management (MOD) Personally Reviewed/Independently interpreted patient's: [x]Epic notes [x]Radiology studies [x]Labs []EKG [x]Ordering tests []Other Discussed/ With: [x]Patient/Family [x]RN []Consultants []SW/TCC []Other I spent total time of 55 minutes reviewing previous notes, test results, and face to face with Pa Hunt discussing the diagnosis and importance of compliance with the treatment plan as well as documenting on the day of the visit. Greater than 51% of the >= 55 minute total care time throughout the day (including chart review, care coordination, and [id number] encounter) was spent discussing/counseling the patient/family regarding the care plan for Pa Hunt. Specifically, time spent coordinating care for trauma. I examined independently and reviewed relevant data myself and may have done so in the context of team rounds. A full chart review was performed. I attest that this medical record entry accurately reflects signatures/notations that I made in my capacity as M.D. when I treated/diagnosed Pa Hunt on the date of service above. I attest that this information is true, accurate, and complete to the best of my knowledge and I understand that any falsification, omission, or concealment of material fact may subject me to administrative, civil, or criminal liability. Anum Kaiser MD Division of Trauma Department of Surgery [facility] Trauma H&P 01/27/23 8:54 PM Trauma Attending: Dr. Kaiser Level of Initial Activation: Surgical Team Upgraded: No To:N/A Mechanism of Injury: Other Found down, presumptive fall Mechanism of Arrival:EMS Chief Complaint: Found down, presumptive fall History of Traumatic Injury: 68 y.o. yom status post found down, presumptive fall. The incident happened around unknown time, unknown last seen normal. Patient reports he lives with his brother. Patient was combative with EMS, attempted to punch and required restraints en route. Patient pain level currently is 3/10. Positive EtOH, pt endorses drinking Merlot and Vodka today. Did the Patient have LOC? No C-collar in place on arrival? No Was the patient on an antiplatelet or anticoagulant medication? No If yes, which one? na COVID-19 Risk Screening Tool: Has patient previously been tested for COVID-19? Yes Is the patient coming from a nursing facility or congregate care facility? No Has the patient been in close contact with a COVID-19 positive patient? No Has the patient recently experienced any of the following: fever, cough, nhkaybpnn-eu-eogrsy, myalgias, loss of taste/smell, diarreha/GI symptoms? No If any of the screen questions are answered 'yes,' consider ordering a COVID test History reviewed. Prediabetic History reviewed. No pertinent surgical history. No family hi (more content not included)...[facility]07-01-2023 Emergency department Note* Brett Felipe RN - 01/27/2023 10:13 PM EDT RN to room to medicate patient. Pt was standing up in the room pulling off his c-collar and cords stating he's not wearing this stuff anymore and stop putting it back on. Pt redirected to bed, given warm blankets and explained the use of the call light. Informed patient to not get out of bed and call for help when needed. Will continue to monitor. Brett Felipe RN 01/27/232215 [id number] NoteNOTE: This result is for medical treatment only. Analysis performed using non-forensic procedures. [id number] Procedure note* Eddie Carmona III, MD - 01/27/2023 9:23 PM EDT PATIENT NAME: Pa Hunt : 1955 TODAY'S DATE: 01/27/2023 Laceration Repair Consent (The indications, risks, benefits, alternatives to the procedure were explained to the patient/surrogate decision maker and their questions answered. Consent was obtained to proceed with the procedure) Consent obtained by: Emergent, patient intoxicated Consent given by: Emergent Risks/Benefits discussed: unable to explain due to emergent situation or patient condition Alternatives discussed: N/A [place] Protocol Procedure explained and questions answered to patient or proxy's satisfaction: Yes Imaging studies available: Yes Time out completed:(Time out was completed immediately prior to the start of the procedure which included verification of the correct patient, correct site and agreement on the procedure to be done) Yes Anesthesia Method: local infiltration Laceration details Location: scalp Length (cm): 4 Depth (mm): 5 Repair type: simple Pre-procedure details Preparation: patient was prepped and draped in usual sterile fashion Exploration Hemostasis achieved with : direct pressure and epinephrine Wound exploration: entire depth of wound probed and visualized Wound extent: epidermis and dermis Contaminated: Yes Treatment Area cleansed with : betadine and saline Amount of cleaning: standard Irrigation: sterile saline Irrigation volume (ml): 1L Irrigation method: pressure wash Visualized foreign bodies removed: None Repair Suture size: 4-0 Suture material: chromic gut Technique: simple interrupted Method: sutures Number of sutures/rodrick: 8 Approximation: close Post-procedure details Dressing: antibiotic ointment Patient tolerated procedure: tolerated well, no immediate complications Comments: none Associated attestation - Anum Kaiser MD - 01/28/2023 9:47 AM EDT I attest that I was present for the critical portions of the procedure. This note is electronically signed by: Anum Kaiser MD 9:47 AM, 01/28/2023. [employer] Phone: [phone]) 704-707907-01-2023 Procedure note* Eddie Carmona III, MD - 01/27/2023 9:23 PM EDT PATIENT NAME: Pa Hunt : 1955 TODAY'S DATE: 01/27/2023 Laceration Repair Consent (The indications, risks, benefits, alternatives to the procedure were explained to the patient/surrogate decision maker and their questions answered. Consent was obtained to proceed with the procedure) Consent obtained by: Emergent, patient intoxicated Consent given by: Emergent Risks/Benefits discussed: unable to explain due to emergent situation or patient condition Alternatives discussed: N/A [place] Protocol Procedure explained and questions answered to patient or proxy's satisfaction: Yes Imaging studies available: Yes Time out completed:(Time out was completed immediately prior to the start of the procedure which included verification of the correct patient, correct site and agreement on the procedure to be done) Yes Anesthesia Method: local infiltration Laceration details Location: scalp Length (cm): 4 Depth (mm): 5 Repair type: simple Pre-procedure details Preparation: patient was prepped and draped in usual sterile fashion Exploration Hemostasis achieved with : direct pressure and epinephrine Wound exploration: entire depth of wound probed and visualized Wound extent: epidermis and dermis Contaminated: Yes Treatment Area cleansed with : betadine and saline Amount of cleaning: standard Irrigation: sterile saline Irrigation volume (ml): 1L Irrigation method: pressure wash Visualized foreign bodies removed: None Repair Suture size: 4-0 Suture material: chromic gut Technique: simple interrupted Method: sutures Number of sutures/rodrick: 8 Approximation: close Post-procedure details Dressing: antibiotic ointment Patient tolerated procedure: tolerated well, no immediate complications Comments: none Associated attestation - Anum Kaiser MD - 01/28/2023 9:47 AM EDT I attest that I was present for the critical portions of the procedure. This note is electronically signed by: Anum Kaiser MD 9:47 AM, 01/28/2023. documented in this [facility]07-01-2023 History and physical note* Jessica Edge MD - 01/27/2023 8:44 PM EDT Images from the original note were not included. [facility] Trauma H&P 01/27/23 8:54 PM Trauma Attending: Dr. Kaiser Level of Initial Activation: Surgical Team Upgraded: No To:N/A Mechanism of Injury: Other Found down, presumptive fall Mechanism of Arrival:EMS Chief Complaint: Found down, presumptive fall History of Traumatic Injury: 68 y.o. yom status post found down, presumptive fall. The incident happened around unknown time, unknown last seen normal. Patient reports he lives with his brother. Patient was combative with EMS, attempted to punch and required restraints en route. Patient pain level c urrently is 3/10. Positive EtOH, pt endorses drinking Merlot and Vodka today. Did the Patient have LOC? No C-collar in place on arrival? No Was the patient on an antiplatelet or anticoagulant medication? No If yes, which one? na COVID-19 Risk Screening Tool: Has patient previously been tested for COVID-19? Yes Is the patient coming from a nursing facility or congregate care facility? No Has the patient been in close contact with a COVID-19 positive patient? No Has the patient recently experienced any of the following: fever, cough, xavxdyibk-yc-eucnxr, myalgias, loss of taste/smell, diarreha/GI symptoms? No If any of the screen questions are answered 'yes,' consider ordering a COVID test History reviewed. Prediabetic History reviewed. No pertinent surgical history. No family history on file. Reviewed, none pertinent. Social History Socioeconomic History Marital status: Single Spouse name: Not on file Number of children: Not on file Years of education: Not on file Highest education level: Not on file Occupational History Not on file Tobacco Use Smoking status: Not on file Smokeless tobacco: Not on file Substance and Sexual Activity Alcohol use: Not on file Drug use: Not on file Sexual activity: Not on file Other Topics Concern Not on file Social History Narrative Not on file Social Determinants of Health Financial Resource Strain: Not on file Food Insecurity: Not on file Transportation Needs: Not on file Physical Activity: Not on file Stress: Not on file Social Connections: Not on file Intimate Partner Violence: Not on file Housing Stability: Not on file No current facility-administered medications on file prior to encounter. No current outpatient medications on file prior to encounter. Current Facility-Administered Medications: No current facility-administered medications on file prior to encounter. No current outpatient medications on file prior to encounter. Who is healthcare POA or next of kin? Adult children Does the patient have a DNR? Unable to determine because of AMS and no family available Living Will? Unable to determine because of AMS and no family available Allergies: No Known Allergies PRIMARY SURVEY: AIRWAY: Airway Normal EMS Airway Absent Noisy respirations Absent Vomiting/bleeding: Absent BREATHING: Spontaneous Respirations: Present Midaxillary breath sound left: Present Midaxillary breath sound right: Present CIRCULATION: Left Femoral pulse rate: Normal Left Femoral pulse intensity: Present Right Femoral pulse rate: Normal Right Femoral pulse intensity: Present INITIAL VITALS: BP 148/80 HR 93 RR 20 Temp 97.8 SpO2 99ra FAST EXAM: Performed: No Results: N/A DISABILITY: GCS Initial Eye Verbal Motor 4 - Opens eyes on own 5 - Alert and oriented 6 - Follows simple motor commands Neuromuscular blockade: No Pupil size: Left 3mm Right 3mm Pupil reaction: Yes Wiggles fingers: Left Yes Right Yes Wiggles toes: Left Yes Right Yes Hand grasp: Left Normal Right Normal Plantar flexion: Left Normal Right Normal Secondary Survey: SECONDARY VITALS: BP 115/78 HR 105 RR 18 SpO2 99 ra Review of Systems Unable to perform ROS: Acuity of condition General Appearance: Awake, No acute distress, and Appears well-developed and well-nourished Head: Normocephalic, No depressed skull fractures , no abrasions to face or scalp. Approx 3-4 cm mainly vertical complex lac over right eyebrow and mild underlying cephalohematoma. Eyes: PERRL , Sclera anicteric , and No [place] Eyes. ENT: Nares clear , No nasal septal hematoma , dentition intact , and No hemotympanum Neck: Hard cervical collar in place, There is no cervical midline tenderness to palpation, step-offs or acute deformities, Trachea midline , No Crepitus, and No JVD Chest: Non-tender, No crepitus, No deformities, and No stepoffs Lungs: Clear and unlabored Respirations Heart/Cardiovascular: Rhythm Regular , Upper extremity pulses Present, and Lower extremity pulses Present Abdomen: Soft , Non-Tender , Non-distended, Rebound Absent , and Organomegaly Absent : Normal external genitalia Rectal: Positive Gluteal Squeeze Musculoskeletal: Right shoulder ecchymosis, approx 4 cm diameter ute. Upper and lower extremities have no acute deformities and they are non-tender to palpation, Good ROM , Chest wall stable , Pelvis stable to AP and lateral compression, Log-roll negative for pain, and No thoracic or lumbar midline tenderness topalpation, step-offs or acute deformities. Extremities: Cyanosis Absent and Dorsalis Pedis Pulses Palpable Skin: Warm, No rashes, and No Abrasions Neurologic: Alert and oriented to person, place, and time. , Moving all extremities willfully, able to wiggle all fingers and toes. , Sensation grossly intact throughout. , and Strength 5/5 throughout. Psych: Affect Normal and NAD CBC: Lab Results Component Value Date WBC 8.4 01/27/2023 RBC 3.40 (L) 01/27/2023 HGB 10.9 (L) 01/27/2023 HCT 31.8 (L) 01/27/2023 MCV 93.6 01/27/2023 MCH 32.0 01/27/2023 MCHC 34.1 01/27/2023 RDW 14.9 (H) 01/27/2023 PLT 353 01/27/2023 MPV 7.2 (L) 01/27/2023 BMP: No results found for: NA, K, CL, CO2, BUN, CREATININE, CALCIUM, LABGLOM, GLUCOSE, GLU Hepatic Function Panel:No results found for: ALKPHOS, ALT, AST, PROT, BILITOT, BILIDIR PT/INR: No results found for: PROTIME, INR Troponin: No results found for: TROPONINI LIPASE: No results found for: LIPASE IV Access: pivs NG/OG: No Hood: No Radiology: No results found. ASSESSMENT: There is no problem list on file for this patient. PLAN: - Await formal reads of CT - Attempt to clear c collar clinically pending clinical sobriety - Banana bag - Tertiary exam - Dispo: pending above Has/will a routine repeat head CT be ordered?: No If no, Why? Patient not on Pre-injury Anticoagulant or Anti-Platelet If no repeat head CT ordered, can DVT PPX be started? No If no, why? Plan for OR today.Patient is not being admitted.Repeat head ordered If DVT PPX can be started, has order been placed? N/A Consultants:none When Reached: na FRAIL SCALE for Patients Greater than Age 65 - All others choose N/A: F:Fatigue - Does the patient fatigue or get exhausted easily? No R:Resistance - Does the patient have trouble walking up one flight of stairs independently? No A:Ambulation - Does the patient have trouble walking one block (1/4 Mile)? No I:Illnesses - Does the patient have five or more illnesses (comorbidities)? Yes L:Loss of weight - Has the patient lost weight (5 to 10 percent) over the last 6 months to one year? No Greater then 2 Yes answers consider palliative consult. Jessica Edge MD PGY-2, General Surgery Pager# [phone] 01/27/2023 8:54 PM Associated attestation - Anum Kaiser MD - 01/28/2023 9:45 AM EDT ATTENDING ADDENDUM: I independently saw and evaluated the patient. I personally obtained the jiménez and critical portion of the history and physical exam. I reviewed and agree with the documentation below. I personally reviewed the patient's labs and imaging studies. I was present in the trauma bay prior to patient's arrival. I was present by the bedside for the primary and secondary survey, as well as CT scan. HPI: 68 y.o. male with acute alcohol intoxication, found down with left forehead laceration, presumably secondary to a fall. Per EMS patient was combative with an altered mental status. On arrival,patient was calm and cooperative, although appeared acutely intoxicated. Primary survey revealed: patent airway, equal breath sounds, and hemodynamically stable. GCS 15, pupils equal and reactive. Secondary survey revealed laceration above left eyebrow.. Trauma evaluation revealed: 1. CT head - No evidence of intracranial injury 2. CT C-spine - No evidence of cervical spine injury 3. CT Chest/abdomen/pelvis - chronic rib fractures, no acute traumatic injuries Labs significant for ETOH 0.224, lactic acid 3.3, hyponatremia (Na 129), anemia (Hb 10.9) Tox screen positive for barbituates Assessment & Plan: 68 y.o. male who presents s/p fall while acutely intoxicated, found to have no significant injuries. - Cervical collar removed - scalp laceration repaired w/ absorbable suture - IV fluid bolus for elevated lactic acid - electrolyte abnormalities likely due to alcohol intoxication - No further work-up indicated from a trauma perspective - Dispo per ED Level of Medical Decision Making: risk of morbidity from additional diagnostic testing or treatmentdue to low GCS []High [x]Moderate []Low Complexity: Acute illness with systemic symptoms (MOD) Risk: Prescription drug management (MOD) Personally Reviewed/Independently interpreted patient's: [x]Epic notes [x]Radiology studies [x]Labs []EKG [x]Ordering tests []Other Discussed/ With: [x]Patient/Family [x]RN []Consultants []SW/TCC []Other I spent total time of 55 minutes reviewing previous notes, test results, and face to face with Nabila discussing the diagnosis and importance of compliance with the treatment plan as well as documenting on the day of the visit. Greater than 51% of the >= 55 minute total care time throughout the day (including chart review,care coordination, and mcgh-gk-nvkn encounter) was spent discussing/counseling the patient/family regarding the care plan for Pa Hanks. Specifically, time spent coordinating care for trauma.I examined independently and reviewed relevant data myself and may have done so in the context of team rounds. A full chart review was performed. I attest that this medical record entry accurately reflects signatures/notations that I made in my capacity as M.D. when I treated/diagnosed Pa Hunt on the date of service above. I attest that this information is true, accurate, and complete to the best of my knowledge and I understand that any falsification, omission, or concealment of material fact may subject me to administrative, civil, or criminal liability. Anum Kaiser MD Division of Trauma Department of Surgery [facility] Work Phone: [phone]) [phone] History and physical note* Jessica Edge MD - 01/27/2023 8:44 PM EDT Images from the original note were not included. [facility] Trauma H&P 01/27/23 8:54 PM Trauma Attending: Dr. Kaiser Level of Initial Activation: Surgical Team Upgraded: No To:N/A Mechanism of Injury: Other Found down, presumptive fall Mechanism of Arrival:EMS Chief Complaint: Found down, presumptive fall History of Traumatic Injury: 68 y.o. yom status post found down, presumptive fall. The incident happened around unknown time, unknown last seen normal. Patient reports he lives with his brother. Patient was combative with EMS, attempted to punch and required restraints en route. Patient pain level c urrently is 3/10. Positive EtOH, pt endorses drinking Merlot and Vodka today. Did the Patient have LOC? No C-collar in place on arrival? No Was the patient on an antiplatelet or anticoagulant medication? No If yes, which one? na COVID-19 Risk Screening Tool: Has patient previously been tested for COVID-19? Yes Is the patient coming from a nursing facility or congregate care facility? No Has the patient been in close contact with a COVID-19 positive patient? No Has the patient recently experienced any of the following: fever, cough, rpuoqzrvk-el-nqqbzt, myalgias, loss of taste/smell, diarreha/GI symptoms? No If any of the screen questions are answered 'yes,' consider ordering a COVID test History reviewed. Prediabetic History reviewed. No pertinent surgical history. No family history on file. Reviewed, none pertinent. Social History Socioeconomic History Marital status: Single Spouse name: Not on file Number of children: Not on file Years of education: Not on file Highest education level: Not on file Occupational History Not on file Tobacco Use Smoking status: Not on file Smokeless tobacco: Not on file Substance and Sexual Activity Alcohol use: Not on file Drug use: Not on file Sexual activity: Not on file Other Topics Concern Not on file Social History Narrative Not on file Social Determinants of Health Financial Resource Strain: Not on file Food Insecurity: Not on file Transportation Needs: Not on file Physical Activity: Not on file Stress: Not on file Social Connections: Not on file Intimate Partner Violence: Not on file Housing Stability: Not on file No current facility-administered medications on file prior to encounter. No current outpatient medications on file prior to encounter. Current Facility-Administered Medications: No current facility-administered medications on file prior to encounter. No current outpatient medications on file prior to encounter. Who is healthcare POA or next of kin? Adult children Does the patient have a DNR? Unable to determine because of AMS and no family available Living Will? Unable to determine because of AMS and no family available Allergies: No Known Allergies PRIMARY SURVEY: AIRWAY: Airway Normal EMS Airway Absent Noisy respirations Absent Vomiting/bleeding: Absent BREATHING: Spontaneous Respirations: Present Midaxillary breath sound left: Present Midaxillary breath sound right: Present CIRCULATION: Left Femoral pulse rate: Normal Left Femoral pulse intensity: Present Right Femoral pulse rate: Normal Right Femoral pulse intensity: Present INITIAL VITALS: BP 148/80 HR 93 RR 20 Temp 97.8 SpO2 99ra FAST EXAM: Performed: No Results: N/A DISABILITY: GCS Initial Eye Verbal Motor 4 - Opens eyes on own 5 - Alert and oriented 6 - Follows simple motor commands Neuromuscular blockade: No Pupil size: Left 3mm Right 3mm Pupil reaction: Yes Wiggles fingers: Left Yes Right Yes Wiggles toes: Left Yes Right Yes Hand grasp: Left Normal Right Normal Plantar flexion: Left Normal Right Normal Secondary Survey: SECONDARY VITALS: BP 115/78 HR 105 RR 18 SpO2 99 ra Review of Systems Unable to perform ROS: Acuity of condition General Appearance: Awake, No acute distress, and Appears well-developed and well-nourished Head: Normocephalic, No depressed skull fractures , no abrasions to face or scalp. Approx 3-4 cm mainly vertical complex lac over right eyebrow and mild underlying cephalohematoma. Eyes: PERRL , Sclera anicteric , and No [place] Eyes. ENT: Nares clear , No nasal septal hematoma , dentition intact , and No hemotympanum Neck: Hard cervical collar in place, There is no cervical midline tenderness to palpation, step-offs or acute deformities, Trachea midline , No Crepitus, and No JVD Chest: Non-tender, No crepitus, No deformities, and No stepoffs Lungs: Clear and unlabored Respirations Heart/Cardiovascular: Rhythm Regular , Upper extremity pulses Present, and Lower extremity pulses Present Abdomen: Soft , Non-Tender , Non-distended, Rebound Absent , and Organomegaly Absent : Normal external genitalia Rectal: Positive Gluteal Squeeze Musculoskeletal: Right shoulder ecchymosis, approx 4 cm diameter ute. Upper and lower extremities have no acute deformities and they are non-tender to palpation, Good ROM , Chest wall stable , Pelvis stable to AP and lateral compression, Log-roll negative for pain, and No thoracic or lumbar midline tenderness topalpation, step-offs or acute deformities. Extremities: Cyanosis Absent and Dorsalis Pedis Pulses Palpable Skin: Warm, No rashes, and No Abrasions Neurologic: Alert and oriented to person, place, and time. , Moving all extremities willfully, able to wiggle all fingers and toes. , Sensation grossly intact throughout. , and Strength 5/5 throughout. Psych: Affect Normal and NAD CBC: Lab Results Component Value Date WBC 8.4 01/27/2023 RBC 3.40 (L) 01/27/2023 HGB 10.9 (L) 01/27/2023 HCT 31.8 (L) 01/27/2023 MCV 93.6 01/27/2023 MCH 32.0 01/27/2023 MCHC 34.1 01/27/2023 RDW 14.9 (H) 01/27/2023 PLT 353 01/27/2023 MPV 7.2 (L) 01/27/2023 BMP: No results found for: NA, K, CL, CO2, BUN, CREATININE, CALCIUM, LABGLOM, GLUCOSE, GLU Hepatic Function Panel:No results found for: ALKPHOS, ALT, AST, PROT, BILITOT, BILIDIR PT/INR: No results found for: PROTIME, INR Troponin: No results found for: TROPONINI LIPASE: No results found for: LIPASE IV Access: pivs NG/OG: No Hood: No Radiology: No results found. ASSESSMENT: There is no problem list on file for this patient. PLAN: - Await formal reads of CT - Attempt to clear c collar clinically pending clinical sobriety - Banana bag - Tertiary exam - Dispo: pending above Has/will a routine repeat head CT be ordered?: No If no, Why? Patient not on Pre-injury Anticoagulant or Anti-Platelet If no repeat head CT ordered, can DVT PPX be started? No If no, why? Plan for OR today.Patient is not being admitted.Repeat head ordered If DVT PPX can be started, has order been placed? N/A Consultants:none When Reached: na FRAIL SCALE for Patients Greater than Age 65 - All others choose N/A: F:Fatigue - Does the patient fatigue or get exhausted easily? No R:Resistance - Does the patient have trouble walking up one flight of stairs independently? No A:Ambulation - Does the patient have trouble walking one block (1/4 Mile)? No I:Illnesses - Does the patient have five or more illnesses (comorbidities)? Yes L:Loss of weight - Has the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 (100 ng/mL) PCP (25 ng/mL) NOTE: These results are for medical treatment only. Analysis performed using non-forensic procedures. POSITIVE results are NOT confirmed by a more specific alternative method unless requested. If confirmation is needed, request confirmation under separateorder. CONFIRMATORY ABO/RH ABO Grouping O Rh Type POS POCT GLUCOSE METER Metabolic panel shows metabolic acidosis, normal anion gap, good kidney function, glucose low at 43. This may be secondary to malnutrition. Patient was ordered D50 to replete the hypoglycemia, subsequent blood sugar improved up to 117 Low sodium at 129, normal potassium of 4.1 Low calcium at 7.9 Lactic acidosis at 3.3. We will rehydrate patient with combination of normal saline IV fluids to correct the hyponatremia and lactic acidosis as well as a banana bag for possible malnutrition given alcohol consumption Normal white blood cell count Mild anemia Normal platelet count INR 1.0 Alcohol elevated at 224 Toxicology screen positive for barbiturates, otherwise toxicology screen negative All other labs were within normal range or not returned as of this dictation. EMERGENCY DEPARTMENT COURSE and DIFFERENTIAL DIAGNOSIS/MDM: Vitals: Vitals: 01/27/23 2034 01/27/23 2046 01/27/23 2218 01/28/23 0055 BP: 115/78 132/76 129/74 Patient Position: Pulse: 105 96 94 Resp: 18 18 Temp: 37.2 C (98.9 F) SpO2: 99% 99% 99% Medications iigggezg-eadccufzqi-cgryibdqx (Neosporin) ointment ( Topical Given 01/27/232302) sodium chloride 0.9 % 1,000 mL with multiple vitamin 10 mL, thiamine 100 mg, folic acid 1 mg infusion (100 mL/hr IntraVENous New Bag 01/27/232154) dextrose 50 % solution 50 mL (50 mL IntraVENous Given 01/27/232151) 68-year-old male presents as a trauma alert Patient has obvious alcohol intoxication with objective craniofacial trauma which will require sutures for the scalp laceration. He will need standard trauma labs, imaging per trauma team. The soft restraints that EMS had been utilizing were discontinued upon arrival to the trauma bay, and patient while still belligerent was verbally consolable and redirectable by ED team. Patient will require a tertiary trauma survey when he is more sober. MDM elements: The patient presented with chief complaint of alcohol intoxication with head injury. The differential diagnosis associated with this patient's presentation includes skull fracture, brain bleed, scalp laceration, cervical spine fracture, rib fracture, alcohol intoxication, drug use orcombination of the above. Our workup consisted of ordering/reviewing: CT scans per trauma team, standard trauma labs. Trauma will suture scalp laceration. To aid in management, I performed an independent interpretation of CT scan(s) see above Patient blood work, see above. The patient will be disposition will depend on findings of trauma tertiary survey when patient is more sober. Patient is in agreement with this plan. Patient's care was significantly impacted by social determinants of health including Alcoholism. PROCEDURES: Unless otherwise noted below, none Procedures All labs and imaging reviewed. See extensive discussion above. Patient had hypoglycemia which was corrected with D50 Patient had hyponatremia and lactic acidosis which we are treating with normal saline IV fluids. Banana bag also started in case of malnutrition Patient also had hypocalcemia which was treated with IV calcium gluconate Patient needs more time to sober up. When he is fully sober, trauma will perform a tertiary survey and decide if he is safe for discharge home. I have also ordered a repeat lactic acid to ensure thatthe lactic acidosis clears following appropriate fluid resuscitation. This is still pending at thistime. Disposition: Pending trauma tertiary survey for clearance for discharge Working clinical impression: Fall, head injury, scalp laceration, alcohol intoxication with complication, hypoglycemia, hypocalcemia, hyponatremia Patient was seen and evaluated by the Resident Physician as well as myself. I agree with the history, physical exam findings, and plan unless otherwise stated. I have signed out patient's Emergency Department care to Dr. Yee. We discussed the pertinent history, physical exam, completed/pending test results (if applicable) and current treatment plan. Please refer to his/her chart for the patient's remaining Emergency Department course and final disposition. CRITICAL CARE TIME FINAL IMPRESSION 1. Fall, initial encounter 2. Head injury, initial encounter 3. Laceration of scalp, initial encounter 4. Alcoholic intoxication with complication (CMS/HCC) ([facility]) 5. Hypoglycemia 6. Hypocalcemia 7. Hyponatremia DISPOSITION PATIENT REFERRED TO: No follow-up provider specified. DISCHARGE MEDICATIONS: New Prescriptions No medications on file (Comment: Please note this report has been produced using speech recognition software and may contain errors related to that system including errors in grammar, punctuation, and spelling, as well as words and phrases that may be inappropriate. If there are any questions or concerns please feel freeto contact the dictating provider for clarification.) Titi Inman MD (electronically signed) Emergency Medicine Provider Titi Inman MD 01/28/[address] [id number] History and physical note Author Dr. Luong [facility] January 05, 2023 8:43pm Note Date/Time January 05, 2023 6:49[facility] Medical Records Department [address] [place] [address] H&P Exam - Hospitalist 01/05/23 1779 MR#: [id number] Acct: [id number] Name: MESSI WALDROP Rep #:[id number] : 1955 67 From: Joey Max PCP: Dr. John Springer MD Status:AD M IN Location: [facility] [place] [facility] HPI - General General Date of Admission: 01/05/23 Date of Service: 01/05/23 Chief Complaint: Acute alcohol withdrawal syndrome after recent discharge after management of GI bleed HPI Narrative MESSI WALDROP, is a 67 M with history of chronic alcohol use disorder was brought byher niece as patient was having a cold alcohol withdrawal symptoms. Patient drinks 5-6 bottles of 12 ounce cans of beer every day. He started drinking backafter discharge. Prior to last admission, he was drinking whiskey half bottle daily. Patient is having shivering tremors and restlessness. Patient was givenphenobarbital in ED and he felt better and then wanted to go home. After discussion of risk and benefit he understood and wanted to stay for further treatment. Patient was recently admitted from 12/12/2022 to 12/23/2022 for severe anemia hemoglobin 6.3 that required 4 units of PRBC transfusion and 2 EGDs and treatment. [facility] Medical History Acute blood loss anemia Alcohol withdrawal Anxiety and depression Chewing tobacco use ETOH abuse GI bleed History of cancer tonsil Hyponatremia Home Medications doxycycline hyclate 100 mg tablet 100 mg PO BID 13 days #26 tabs 12/23/22 [Rx Last Taken 01/05/23] lactulose 20 gram/30 mL oral solution 10 g (15 mL) PO BID 30 days #900 mL 12/23/22 [Rx Last Taken 01/05/23] pantoprazole 40 mg tablet,delayed release (Protonix) 40 mg PO BID 30 days #60 tabs 12/23/22 [Rx Last Taken 01/05/23] sucralfate 1 gram tablet 1 g PO Q6H 30 days #120 tabs 12/23/22 [Rx Last Taken 01/05/23] Allergy/AdvReac Type Severity Reaction Status Date / Time No Known Allergies Allergy Verified 12/12/22 18:23 Family History Mother Diabetes Father Diabetes Brother Colon cancer Surgical History History of tonsillectomy and adenoidectomy Social History household members: other details: Lives with his son. Smoking Status: Former smoker Smokeless tobacco user: chewing tobacco and other alcohol intake: current alcohol intake frequency: 3 or more drinks per day details: 8-10 beers daily coupled with hard liquor. substance use type: does not use ROS ROS Narrative Constitutional: Reports fatigue and weakness. No fever. HEENT: Reports systems reviewed and no addt'l complaints, except as documented Respiratory/Chest: No acute shortness of breath or respiratory distress or wheezing. CVS: No chest pain or tightness. Denies palpitation. Gastrointestinal: Denies coffee ground emesis, hematemesis or vomiting after recent discharge. Genitourinary: Denies burning urination or new urinary tract symptoms Musculoskeletal: Denies acute joint pain or limited range of motion. No acute injury Neurologic: Denies seizure-like symptoms. Strokelike symptoms. skin: Easy bruisability and multiple bruises on hands. Endocrinology: Reports systems reviewed and no addt'l complaints, except as documented Hematologic/Lymphatic: Reports systems reviewed and no addt'l complaints, exceptas documented Rest 14 ROS are negative except as mentioned in HPI Vital Signs Vital Signs Vital Signs: 01/05/23 15:23 01/05/23 18:20 Temperature 97.9 F Temperature Source Temporal Pulse Rate 129 H Respiratory Rate 19 H Blood Pressure 140/86 H 150/74 H Blood Pressure Mean 104 99 Pulse Ox 99 Oxygen Delivery Method Room Air Room Air Weight Weight: 161 lb Body Mass Index (BMI) 23.8 Physical Exam Narrative General: Alert, Oriented x3, Cooperative HEENT: Atraumatic, PERRLA, EOMI, Normocephalic Oral: Oral mucosa dry. No Gingival or Mucosal Lesions/ Ulcerations Neck: Supple, No JVD, Negative Carotid Bruits Lungs: Air entry diminished in bilateral lung bases. No crepitation/rhonchi Cardiovascular: Sinus tachycardia, normal S1, Normal S2, No murmurs Abdomen: Bowel Sounds Present, Soft, Non Tender, Non-Distended. Liver not enlarged. No fluid thrill/ascites. : No renal angle tenderness. No suprapubic tenderness. Extremities: Mild induration/soft tissue hardness over posterior aspect of left arm. No tenderness redness or fluctuation.. No edema, Capillary Refill Less than 3 Seconds Skin: Multiple subcutaneous bruises over bilateral forearm. Easy bruisability, chronic for last 3 to 4 years. Musculoskeletal: No Tenderness to Palpation of Joints or Extremities. ROM intact. Neurological: Cranial nerves II-XII grossly intact, DTR 2+/4 and Symmetrical, tremors in both hands/generalized tremors Psych/Mental Status: Flat affect. Chronic alcohol use Results Lab / Micro Data Result Diagrams: 01/05/23 16:15 01/05/23 16:15 Labs: Laboratory Results - last 24 hr 01/05/23 16:15: WBC 4.7, RBC 3.90 L, Hgb 12.0 L, Hct 36.1 L, MCV 92.6, MCH 30.8,MCHC 33.2, RDW Std Deviation 47.8 H, RDW Coeff of Jesus 14.3, Plt Count 436, MPV 9.5, Immature Gran % (Auto) 0.400, Neut % (Auto) 84.1 H, Lymph % (Auto) 5.1 L, Norman % (Auto) 2.7, Eos % (Auto) 6.6 H, Baso % (Auto) 1.1 H, Absolute Neuts (auto) 4.0, Absolute Lymphs (auto) 0.24 L, Nucleated RBC % 0, Differential Comment SCANNED 01/05/23 16:15: Sodium 134 L, Potassium 5.1, Chloride 98, Carbon Dioxide 23.0, Anion Gap 13, BUN 7, Creatinine 1.32 H, Estim Creat Clear Calc 55.05, Est GFR (MDRD) Af Amer 70, Est GFR (MDRD) Non-Af 58 L, BUN/Creatinine Ratio 5.3 L, Glucose 123 H, Calcium 9.6, Total Bilirubin 0.70, AST 42 H, ALT 23, Alkaline Phosphatase 150 H, Total Protein 7.9, Albumin 3.3, Globulin 4.6 H, Albumin/Globulin Ratio 0.7 L 01/05/23 16:15: Lipase 36 01/05/23 17:10: PT Cancelled, INR Cancelled 01/05/23 17:10: Ethyl Alcohol < 3.0 01/05/23 18:12: PT 15.2 H, INR 1.2 Rhythm Strip Rhythm Strip: Sinus Tach Rate: 105 Assessment & Plan Assessment/Plan (1) Alcohol withdrawal: PLAN: Plan This is a 67-year-old gentleman being admitted for acute alcohol withdrawal syndrome. 1. Acute alcohol withdrawal syndrome with history of chronic alcohol use, dependence and relapse: Patient is being admitted on [facility] floor. Patient wasgiven phenobarbital 100 mg IV 1 dose in ED along with thiamine 100 mg IV. He felt better and wanted to go home but was convinced to stay after explaining risk and benefit. Patient on phenobarbital based order set along with other adjunctive medications as needed for alcohol withdrawal symptom control. CIWA monitor. human resources compliance manager consulted. 2. Recent severe acute upper GI bleed with anemia of chronic disease: Patient was recently admitted between 12/12/2022 to 12/23/2022 for acute upper GI bleed. Patient was severely anemic hemoglobin 6.2 and had 4 units of PRBC was transfused. Had EGD on 12/14 found to have esophageal mucosal changes suspiciousfor Mendez's esophagus, chronic gastritis, duodenitis and 1 oozing duodenal ulcer with visible vessel which was injected. He was on Protonix drip octreotide drip. Repeat EGD on 12/21 showed long segment of Mendez's esophagus, multiple oozing duodenal ulcers with visible vessel which was injected and treated with heater probe, acute gastritis. Patient was also on Precedex drip and phenobarbital during last hospital stay. Patient hemoglobin is improved now 12.0. Platelet count 136,000. Recent lab work during last admission cells B12 190, folic acid 7.1. Iron work-up ordered. 3. Chronic alcoholic hepatitis: Intermittent increase in AST alkaline phosphatase. Today AST 42, ALT 23 and alkaline phosphatase 150. Total bilirubin normal. 4. Moderate hypotonic, isovolemic hyponatremia probably related to chronic alcohol use/beer potomania due to low solute intake and: On IV fluid normal saline. Monitor serum sodium 5. Anxiety and depression: Chronic history. 6. Left upper arm soft tissue complex collection 8.7 x 1.7 x 4.8 cm on ultrasound. Hematoma was ruled out gross thought of possible abscess/infectious process. Orthopedic surgery was consulted at that time and was improving therefore continued on doxycycline. Plan was to continue for 2 weeks and follow-up with orthopedic surgery as an outpatient for outpatient MRI. On exam and review of discharge summary it seems the size is decreased and patient also affirms it. No tenderness or signs of acute inflammation or infection. Patient stated that he is taking doxycycline but has some pills leftover. Doxycycline continued. Living will/advanced directive/end of life care: Patient does not have living will or advanced directive. After discussion of benefits/risks procedures involved with full code, DNR CC arrest and DNR CC, the patient opted for full code. Patient does want artificial life support including intubation, tube feed, ventilator and/chest compression, central venous catheter, vasopressor and DC shock if needed Total time spent in [id number] encounter in discussion of advanced directive 17 minutes. Laboratory Results 01/05/23 16:15: WBC 4.7, RBC 3.90 L, Hgb 12.0 L, Hct 36.1 L, MCV 92.6, MCH 30.8,MCHC 33.2, RDW Std Deviation 47.8 H, RDW Coeff of Jesus 14.3, Plt Count 436, MPV 9.5, Immature Gran % (Auto) 0.400, Neut % (Auto) 84.1 H, Lymph % (Auto) 5.1 L, Norman % (Auto) 2.7, Eos % (Auto) 6.6 H, Baso % (Auto) 1.1 H, Absolute Neuts (auto) 4.0, Absolute Lymphs (auto) 0.24 L, Nucleated RBC % 0, Differential Comment SCANNED 01/05/23 16:15: Sodium 134 L, Potassium 5.1, Chloride 98, Carbon Dioxide 23.0, Anion Gap 13, BUN 7, Creatinine 1.32 H, Estim Creat Clear Calc 55.05, Est GFR (MDRD) Af Amer 70, Est GFR (MDRD) Non-Af 58 L, BUN/Creatinine Ratio 5.3 L, Glucose 123 H, Calcium 9.6, Total Bilirubin 0.70, AST 42 H, ALT 23, Alkaline Phosphatase 150 H, Total Protein 7.9, Albumin 3.3, Globulin 4.6 H, Albumin/Globulin Ratio 0.7 L 01/05/23 16:15: Lipase 36 01/05/23 17:10: PT Cancelled, INR Cancelled 01/05/23 17:10: Ethyl Alcohol < 3.0 01/05/23 18:12: PT 15.2 H, INR 1.2 Charges/Coding Visit Charges Inpatient E&M: 04059 Init Hosp L3 Procedures Hospitalists Procedures: 22040 Advncd Care Plan 30 Min 01/05/232042 <Electronically signed by Joey Luong MD> Cosigner Signature (if applicable): CC: Dr. John Springer MD; Dr. Joey Luong MD~ Signed [facility] Work Phone: [phone] Inman [facility] January 05, 2023 6:45pm Note Date/Time January 05, 2023 4:42p [facility] Medical Records Department [address] [place] [address] Emergency Department Summary 01/05/23 MR#: [id number] Acct: [id number] Name: MESSI WALDROP Rep #:[id number] : 1955 67 From: Daniel Inman MD PCP: Dr. John Springer MD Status:RE G ER Location: ED HPI History of Present Illness Chief Complaint: Nausea/Vomiting/Diarrhea Detail of Chief Complaint: Nausea, vomiting diarrhea, shakes and I feel like shit . Informant: patient and family (Niece brought him to the emergency room after heruncle contacted her.) Onset/Context/Timing Onset: Today (Today nausea, vomiting diarrhea) and Days (Has not had anything other than alcohol since he was discharged from the hospital. He has not had analcoholic beverage in 24 hours.) Context: Sudden Onset Timing: Continuous (Shakes or continuous) and Intermittent (Nausea, vomiting diarrhea) Quality: Patient presents because he does not feel well. HPI narrative Location: Generalized Current Severity: Moderate Maximum Severity: Severe Worsened by: Nothing specific per patient Relieved by: Nothing Associated Symptoms Associated Symptoms: Per HPI narrative Narrative Narrative: Patient is a 67-year-old male who admits to 5 to 612 ounce cans of beer a day. He was recently admitted for GI bleed. He required transfusion. He also had alcohol withdrawal and hyperosmolarity and hyponatremia. 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 He also has a stage II pressure ulcer noted. His history of cancer is tonsillar. According to the niece he has not had anything other than alcohol to drink sincedischarge on December 23. Patient admits to 4-6 beers per day. He lives with his brother. His brother contact his niece who brought him to the emergency department. He reports that he feels terrible. He does endorse thirst dry mouth and orthostatic symptoms. He states he has vomited 20 times today and according to niece has a bilious appearance. His stool is watery and light green in color. There was no blood or mucus noted. There is no odor. He denies fever but does report chills and tremors. He apparently gets tremors when he decreases his alcohol consumption or stops. He denies headache, visual, ocular auditory symptoms. He denies trouble with speech or swallowing. He does have a slight cough. He denies shortness of breath. He denies chest discomfort. He denies hematemesis or coffee-ground appearing emesis. Prior similar symptoms: No Recent Illness/Hospitalization: Yes [facility] Medical History Acute blood loss anemia Alcohol withdrawal Anxiety and depression Chewing tobacco use ETOH abuse GI bleed History of cancer tonsil Hyponatremia Home Medications doxycycline hyclate 100 mg tablet 100 mg PO BID 13 days #26 tabs 12/23/22 [Rx Last Taken 01/05/23] lactulose 20 gram/30 mL oral solution 10 g (15 mL) PO BID 30 days #900 mL 12/23/22 [Rx Last Taken 01/05/23] pantoprazole 40 mg tablet,delayed release (Protonix) 40 mg PO BID 30 days #60 tabs 12/23/22 [Rx Last Taken 01/05/23] sucralfate 1 gram tablet 1 g PO Q6H 30 days #120 tabs 12/23/22 [Rx Last Taken 01/05/23] Allergy/AdvReac Type Severity Reaction Status Date / Time No Known Allergies Allergy Verified 12/12/22 18:23 Family History Mother Diabetes Father Diabetes Brother Colon cancer Surgical History History of tonsillectomy and adenoidectomy Social History household members: other details: Lives with his son. Smoking Status: Former smoker Smokeless tobacco user: chewing tobacco and other alcohol intake: current alcohol intake frequency: 3 or more drinks per day details: 8-10 beers daily coupled with hard liquor. substance use type: does not use ROS ROS ED Constitutional Constitutional ED: Reports sweats and weight loss; Denies chills, fever(s) or subjective Eyes Eyes: Denies blurry vision, change in vision or diplopia ENT ENT ED: Denies ear pain, rhinorrhea or sore throat Cardiovascular Cardiovascular: Reports palpitations and racing heartbeat; Denies chest pain, orthopnea or paroxysmal nocturnal dyspnea Respiratory/Chest Respiratory/Chest: Reports cough; Denies dyspnea, dyspnea on exertion, orthopneaor paroxysmal nocturnal dyspnea Gastrointestinal Gastrointestinal: Reports diarrhea, nausea and vomiting; Denies abdominal pain, constipation or melena Genitourinary Genitourinary ED: Denies dysuria or urinary frequency Musculoskeletal Musculoskeletal: Denies arthralgias, back pain, myalgias or neck pain Integumentary Denies abscess or Abrasions Neurologic Neurologic: Reports weakness; Denies headache(s) or paresthesias Psychiatric Psychiatric: Reports anxiety Endocrine Endocrinology: Denies cold intolerance or heat intolerance Hematologic/Lymphatic Hematologic/Lymphatic: Reports systems reviewed and no addt'l complaints, exceptas documented EXAM Physical Exam Narrative Exam Narrative: Vital signs are remarkable for tachycardia and slight hypertension. Suspect this is due to alcohol withdrawal and dehydration. Const Vital Signs: 01/05/23 15:23 01/05/23 18:20 Temperature 97.9 F Temperature Source Temporal Pulse Rate 129 H Respiratory Rate 19 H Blood Pressure 140/86 H 150/74 H Blood Pressure Mean 104 99 Pulse Ox 99 Oxygen Delivery Method Room Air Room Air Positive well developed and unkempt Constitutional Narrative: Patient has stains on his T-shirt. According to niece this is due to feces and emesis. General Appearance ED: unkempt and well developed; Negative for cyanotic, diaphoretic, NAD or pallor HEENT Reports dry mucous membranes HEENT Narrative: Head is atraumatic normocephalic. Ears are normal. Nares are patent. Mucosa is dry. Uvula is midline. There is no deviation with protrusion. Mouth ED: Yes dry mucous membranes Mouth: dry mucous membranes Eyes PERRL Eyes Narrative: There is no nystagmus. General Eye ED: Negative for pale conjunctiva or scleral icterus Neck no lymphadenopathy, supple and no JVD Chest Wall inspection of chest normal and palpation of chest normal Resp normal respiratory effort and clear to auscultation bilaterally Cardio regular rhythm, S1 normal heart sound, S2 normal heart sound and no murmurs Rate: tachycardic GI non-distended and no masses; Negative for non-tender or hepatosplenomegaly GI Narrative: Bowel sounds are slightly increased. There is slight tympany cautioned. Palpation: soft and tender epigastric Back/Spine no CVA tenderness Extremity Extremity Narrative: There is slight mottling noted. There is no acrocyanosis or clubbing noted. Neuro oriented x3, CN's II-XII intact bilaterally and no sensory deficits noted Neuro Narrative: Awake but not necessarily alert. Patient does have 6-7 beats of clonus at the ankle. Negative Babinski sign right and left. Reflexes are brisk. He does have significant tremors. Motor Exam: strength 5/5 throughout Psych Appearance: unkempt Mood & Affect: depressed Skin no wounds and No skin turgor normal General Skin Exam: Negative for elasticity normal, jaundice or pallor MDM MDM MDM Narrative Medical decision making narrative: In light of review of prior records need to evaluate for liver dysfunction, and specifically coagulopathy, electrolytes, CBC and differential as well as H&H. Concern patient is dehydrated will administer 1 L normal saline. He also was treated with thiamine since he has not had any food since December 23 and 100 mg of phenobarbital IV push since in my opinion patient is going through withdrawal. Patient and niece were informed that he will require admission to the hospital. History & Record Review Discussion w/independent historian: Patient and Family Additional record(s) reviewed:: Prior inpatient record, Prior ED visit and Priorlabs Lab Data Attestation: I reviewed the patient's lab results. Lab results narrative: CBC reveals mild anemia with normal indices. Comprehensive metabolic panel is remarkable for a sodium of 4 which is slightly low. Creatinine is elevated 1.32with a GFR of 58. Glucose is slightly elevated 123 with a normal CO2 and anion gap. AST and alkaline phosphatase are slightly elevated. Lipase is normal. PT/INR was redrawn. Hemoglobin is much improved from prior results. Creatinine is elevated from prior which was 0.86. Alcohol level is nondetected which supports diagnosis of alcohol withdrawal Labs: Laboratory Results - last 24 hr 01/05/23 01/05/23 01/05/23 16:15 16:15 16:15 WBC 4.7 RBC 3.90 L Hgb 12.0 L Hct 36.1 L MCV 92.6 MCH 30.8 MCHC 33.2 RDW Std Deviation 47.8 H RDW Coeff of Jesus 14.3 Plt Count 436 MPV 9.5 Immature Gran % (Auto) 0.400 Neut % (Auto) 84.1 H Lymph % (Auto) 5.1 L Norman % (Auto) 2.7 Eos % (Auto) 6.6 H Baso % (Auto) 1.1 H Absolute Neuts (auto) 4.0 Absolute Lymphs (auto) 0.24 L Nucleated RBC % 0 Differential Comment SCANNED PT INR Sodium 134 L Potassium 5.1 Chloride 98 Carbon Dioxide 23.0 Anion Gap 13 BUN 7 Creatinine 1.32 H Estim Creat Clear Calc 55.05 Est GFR (MDRD) Af Amer 70 Est GFR (MDRD) Non-Af 58 L BUN/Creatinine Ratio 5.3 L Glucose 123 H Calcium 9.6 Total Bilirubin 0.70 AST 42 H ALT 23 Alkaline Phosphatase 150 H Total Protein 7.9 Albumin 3.3 Globulin 4.6 H Albumin/Globulin Ratio 0.7 L Lipase 36 Ethyl Alcohol 01/05/23 01/05/23 01/05/23 17:10 17:10 18:12 WBC RBC Hgb Hct MCV MCH MCHC RDW Std Deviation RDW Coeff of Jesus Plt Count MPV Immature Gran % (Auto) Neut % (Auto) Lymph % (Auto) Norman % (Auto) Eos % (Auto) Baso % (Auto) Absolute Neuts (auto) Absolute Lymphs (auto) Nucleated RBC % Differential Comment PT Cancelled 15.2 H INR Cancelled 1.2 Sodium Potassium Chloride Carbon Dioxide Anion Gap BUN Creatinine Estim Creat Clear Calc Est GFR (MDRD) Af Amer Est GFR (MDRD) Non-Af BUN/Creatinine Ratio Glucose Calcium Total Bilirubin AST ALT Alkaline Phosphatase Total Protein Albumin Globulin Albumin/Globulin Ratio Lipase Ethyl Alcohol < 3.0 Rhythm Strip Rhythm Strip: Sinus Tach Rate: 105 EKG Initial EKG: Attestation: I personally reviewed and interpreted this EKG as follows: Interpretation: Sinus Rhythm (Rate is 98. NE interval is 146 ms. Cures duration 78 ms. QT duration 256 ms. [place] is normal. There is no acute ischemic changes.) Discharge Plan Triage Chief Complaint: Nausea/Vomiting/Diarrhea ED Provider: Daniel Inman Dx/Rx/DC Orders Clinical Impression: Alcohol withdrawal, Sinus tachycardia, Elevated serum creatinine, Mild dehydration, At high risk for malnutrition, Acute renal insufficiency Prescriptions: No Action doxycycline hyclate 100 mg tablet 100 mg PO BID 13 Days Qty: 26 0RF pantoprazole [Protonix] 40 mg tablet,delayed release (DR/EC) 40 mg PO BID 30 Days Qty: 60 1RF sucralfate 1 gram tablet 1 g PO Q6H 30 Days Qty: 120 0RF lactulose 20 gram/30 mL Solution 10 g PO BID 30 Days Qty: 900 0RF Primary Care Provider: John Springer Referrals: Care Physician,No Primary [Non-Staff] - What to do if you have Problems For any increased pain, shortness of breath, bleeding, nausea or vomiting, chestpain, or any unexpected problems, contact your Primary Care Provider. Call [facility] ([phone]) or report to the closest Emergency Room. Call 911 if necessary. 01/05/23 1845 <Electronically signed by Daniel Inman MD> Cosigner Signature (if applicable): CC: Dr. John Springer MD ~ Signed [facility] Work Phone: [phone] 926-930003-20-2023 Telephone encounter Note* Telephone Encounter - John Springer MD - 10/16/2022 7:30 AM EDT See result note. [id number] Miscellaneous Notes* Telephone Encounter - John Springer MD - 10/16/2022 7:30 AM EDT See result note. * Telephone Encounter - Fany Salazar MA - 10/12/2022 2:15 PM EDT Name of caller: Messi Contact phone number: [phone] Relationship to Patient: patient Provider: Dr. Springer Practice: [facility] Chief Complaint/Reason for Call: patient is calling wanting the results of his xray. Please advise.Patient is wanting a call from the office. Best time of day caller can be reached: any Patient advised that office/PCP has 24-48 business hours to return their call: Yes [id number] Telephone encounter Note* Telephone Encounter - Fany Salazar MA - 10/12/2022 2:15 PM EDT Name of caller: Messi Contact phone number: [phone] Relationship to Patient: patient Provider: Dr. Springer Practice: [facility] Chief Complaint/Reason for Call: patient is calling wanting the results of his xray. Please advise.Patient is wanting a call from the office. Best time of day caller can be reached: any Patient advised that office/PCP has 24-48 business hours to return their call: Yes [place] [id number] Evaluation + Plan note* Assessment & Plan Note - John Springer MD - 10/12/2022 6:36 AM EDTAssociated Problem(s): Chronic alcohol abuse Referral to psychology for evaluation. [place] [id number] Evaluation + Plan note* Assessment & Plan Note - John Springer MD - 10/12/2022 6:36 AM EDTAssociated Problem(s): Current moderate episode of major depressive disorder without prior episode (HCC) Start Zoloft 50 mg every day[address] [id number] Miscellaneous Notes* Assessment & Plan Note - John Springer MD - 10/12/2022 6:36 AM EDTAssociated Problem(s): Chronic alcohol abuse Referral to psychology for evaluation. * Assessment & Plan Note - John Springer MD - 10/12/2022 6:36 AM EDT Associated Problem(s): Current moderate episode of major depressive disorder without prior episode (HCC) Start Zoloft 50 mg every day. * Assessment & Plan Note - John Springer MD - 10/12/2022 6:34 AM EDT Associated Problem(s): Chronic obstructive pulmonary disease (HCC) Uncontrolled on Symbicort which he hasn't been using consistently. Disucssed importance of using Symbicort daily and Albuterol inhaler prn. documented in this [facility]SM[facility] [id number] Evaluation + Plan note* Assessment & Plan Note - John Springer MD - 10/12/2022 6:34 AM EDT Associated Problem(s): Chronic obstructive pulmonary disease (HCC) Uncontrolled on Symbicort which he hasn't been using consistently. Disucssed importance of using Symbicort daily and Albuterol inhaler prn. [place] [id number] History of Present illness Narrative* John Springer MD - 10/11/2022 3:40 PM EDT Images from the original note were not included. . Visit type: Established patient Reason for Visit: COPD Assessment and Plan 1. Chronic alcohol abuse Assessment & Plan: Referral to psychology for evaluation. Orders: - CBC - Comprehensive metabolic panel - TSH - [facility] Psychology (Oncology) [place] - Vitamin B1 - Ambulatory referral to Addiction Intensive Outpatient Program 2. Malignant neoplasm of tonsil (HCC) - [facility] Psychology (Oncology) [place] 3. Chronic obstructive pulmonary disease, unspecified COPD type (HCC) Assessment & Plan: Uncontrolled on Symbicort which he hasn't been using consistently. Disucssed importance of using Symbicort daily and Albuterol inhaler prn. 4. Acute cough - XR chest 2 views 5. Current moderate episode of major depressive disorder without prior episode ([facility]) Assessment & Plan: Start Zoloft 50 mg every day. Orders: - [facility] Psychology (Oncology) [place] - sertraline (Zoloft) 50 MG tablet; Take 1 tablet (50 mg) by mouth daily., Starting 10/11/2022, Until 12/10/2022, Normal Follow up in about 6 weeks (around 11/22/2022) for depression. Subjective Depression Visit Type: initial Onset of symptoms: more than 1 year ago Progression since onset: gradually worsening Patient presents with the following symptoms: anhedonia, decreased concentration, depressed mood, feelings of hopelessness and nervousness/anxiety. Patient is not experiencing: palpitations, shortness of breath, suicidal ideas and thoughts of . Frequency of symptoms: most days Severity: interfering with daily activities Aggravated by: social activities Sleep quality: fair Risk factors: alcohol intake Patient has a history of: chronic lung disease Treatment tried: nothing Wheezing This is a chronic problem. The current episode started more than 1 year ago. The problem occurs intermittently. The problem has been waxing and waning. Associated symptoms include coughing and sputumproduction. Pertinent negatives include no chest pain or shortness of breath. Nothing aggravates the symptoms. He has tried steroid inhaler and beta agonist inhalers for the symptoms. The treatment provided moderate relief. His past medical history is significant for chronic lung disease. Alcohol Problem The patient's primary symptoms include agitation and intoxication. Pertinent negatives include no loss of consciousness. This is a chronic problem. The current episode started more than 1 year ago. The problem has been gradually worsening since onset. Suspected agents include alcohol. Pertinent negatives include no bladder incontinence or bowel incontinence. Past treatments include Alcoholics Anonymous. The treatment provided no relief. His past medical history is significant for a chronic illness. Review of Systems Constitutional: Negative for unexpected weight change. Eyes: Negative for visual disturbance. Respiratory: Positive for cough, sputum production and wheezing. Negative for shortness of breath. Cardiovascular: Negative for chest pain, palpitations and leg swelling. Gastrointestinal: Negative for bowel incontinence. Genitourinary: Negative for bladder incontinence. Neurological: Negative for dizziness and loss of consciousness. Psychiatric/Behavioral: Positive for agitation, decreased concentration and depression. Negative for suicidal ideas. The patient is nervous/anxious. No Known Allergies Outpatient Medications Prior to Visit Medication Sig Dispense Refill albuterol 108 (90 Base) MCG/ACT inhaler Inhale 2 puffs every 4 hours as needed. budesonide-formoterol (Symbicort) 160-4.5 MCG/ACT inhaler Inhale 2 puffs in the morning and at bedtime. calcium carbonate (Os-Altagracia) 1250 (500 Ca) MG chewable tablet Chew 1 tablet. cholecalciferol (Vitamin D-3) 25 MCG (1000 UT) tablet Take 1,000 Units by mouth in the morning. COD LIVER OIL PO Take by mouth. fish oil-omega-3 fatty acids 1000 MG capsule Take by mouth. Ibuprofen-diphenhydrAMINE Cit 200-38 MG tablet per tablet Take 1 capsule by mouth Nightly as needed. Misc Natural Products (GLUCOSAMINE CHOND COMPLEX/MSM PO) Take by mouth. MULTIPLE VITAMINS-MINERALS ER PO Take by mouth. naproxen (Naprosyn) 250 MG tablet Take 250 mg by mouth. ondansetron (Zofran) 8 MG tablet Take 1 tablet by mouth every 8 hours as needed. PROBIOTIC PRODUCT PO Take 3 capsules by mouth. prochlorperazine (Compazine) 10 MG tablet Take 10 mg by mouth. Red Yeast Rice Extract 600 MG capsule Take by mouth. TURMERIC CURCUMIN PO Take by mouth. VITAMIN E PO Take by mouth. No facility-administered medications prior to visit. Past Medical History: Diagnosis Date ADHD (attention deficit hyperactivity disorder) Anxiety Cancer (CMS/HCC) ([facility]) 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 COPD (chronic obstructive pulmonary disease) ([facility]) Elevated blood pressure Essential (primary) hypertension 07/08/2017 Hyperlipidemia Indigestion Insomnia Umbilical hernia Social History Tobacco Use Smoking status: Former Packs/day: 1.00 Types: Cigarettes Quit date: 09/16/1997 Years since quittin.0 Smokeless tobacco: Current Substance Use Topics Alcohol use: Yes Alcohol/week: 42.0 standard drinks Past Surgical History: Procedure Laterality Date COLONOSCOPY DENTAL SURGERY EYE SURGERY Bilateral cataract surgery LARYNGOSCOPY 03/04/2020 fine needle aspiration biopsy right neck mass and right base of tounge biopsy - dr steiner LASEL TONSILLECTOMY (HISTORICAL) Right 03/04/2020 dr steiner Family History Problem Relation Name Age of Onset Diabetes Mother Diabetes Sister Diabetes Brother Objective BP 131/87 (BP Location: Right arm, Patient Position: Sitting, BP Cuff Size: Large adult) Pulse (!) 118 Temp 36.2 C (97.1 F) (Temporal) Resp 16 Ht 5' 9 (1.753 m) Wt 177 lb 8 oz (80.5 kg) BMI 26.21 kg/m Physical Exam HENT: Nose: Nose normal. Mouth/Throat: Mouth: Mucous membranes are moist. Pharynx: Oropharynx is clear. Eyes: Extraocular Movements: Extraocular movements intact. Conjunctiva/sclera: Conjunctivae normal. Pupils: Pupils are equal, round, and reactive to light. Cardiovascular: Rate and Rhythm: Normal rate and regular rhythm. Pulmonary: Effort: Pulmonary effort is normal. Breath sounds: Normal breath sounds. Skin: Findings: Abrasion (few small on face) and ecchymosis (left cheek) present. Neurological: Mental Status: He is alert and oriented to person, place, and time. Data Reviewed and Summarized Labs: Imaging/Testing: John Springer MD documented in this [facility]01-23-2023 Telephone encounter Note* Telephone Encounter - Nika Ceballos - 08/21/2022 11:23 AM EST Left message to call back to reschedule; provider [id number] Miscellaneous Notes* Telephone Encounter - Nika Ceballos - 08/21/2022 11:23 AM EST Left message to call back to reschedule; provider out of office [facility] this [facility] Author Galen Souza [facility] October 17, 2023 8:31am Note Date/Time October 17, 2023 8:3 1am [facility] Medical Records Department [address] [place] [address] Discharge Summary 10/17/23 0829 MR#: [id number] Acct: [id number] Name: MESSI WALDROP Rep #:[id number] : [id number] 68 From: Galen Souza DO PCP: Dr. John Springer MD Status:AD M IN Location: ICU ICU02-1 Providers Date of Admission: 10/15/23 Primary Care Physician: Dr. John Springer MD Consultations 10/15/23 15:38 Consult: Cardiology Routine Consulting Provider: Jero Nicole Reason for Consult: afib rvr, hfref, transfer is in process EMERGENT Consult: No MD Notified: Yes Date Notified: 10/15/23 Time Notified: 13:38 Method of Notification: Text Reason For Visit: AFIB WITH RVR, CHF Diagnosis Discharge Diagnosis (1) Atrial fibrillation with RVR: Status: Acute Code(s): I48.91 - Unspecified atrial fibrillation (2) Falls: Status: Acute Code(s): W19.XXXA - Unspecified fall, initial encounter (3) Pre-syncope: Status: Acute Code(s): R55 - Syncope and collapse (4) Acute hypotension: Status: Acute Code(s): I95.9 - Hypotension, unspecified (5) Debility: Status: Acute Code(s): R53.81 - Other malaise (6) Heart failure: Status: Acute Code(s): I50.9 - Heart failure, unspecified Plan Hypotension * w/o shock * responded to some IVF. monitor closely, caution advised with IVF given cardiomyopathy * BP/CHF meds held. Afib w RVR * on amio and digoxin * anticoagulated with apixaban * no BB at present given hypotension and low-normal BPs. * Cardiology following. Falls with presyncopal symptoms, * suspect orthostatic on top of poor performance status. * PT OT eval and treat MARKOS * worse today * up from 1.35. * hold off on additional IVF given cardiomyopathy unless worse or hypotensive. Chronic conditions: * HFrEF, nonischemic cardiomyopathy? Also diagnosed in July, see HPI for further details. Last echo in August showed an EF of 15 to 20%. Last saw cardiology during that admission as noted above. Home regimen prior to admission here was Bumex 1 mg twice daily, empagliflozin 10 mg daily, losartan 50 mg daily, Entresto 24-26 mg twice daily, spironolactone 25 mg daily. Cardiology consulted as above. Holding home medications. * History of alcohol abuse with suspected Wernicke's encephalopathy? Reported last alcohol use was prior to his July admission to [facility]. Alcohol level of 0 on admit. Denies any withdrawal symptoms.? Continue home folate and th iamine. No need for CIWA protocol at this time. * CKD stage III: Creatinine 1.35 on admit, at baseline, stable. * Anxiety/depression/insomnia: Continue home melatonin, mirtazapine. * COPD: Stable on room air, no concern for exacerbation. Continue home inhalers. * Tobacco use: Nicotine replacement therapy available as needed. * History of severely inappropriate behavior. Patient has a history of inap propriate comments and particularly inappropriate behavior towards female nursing. Will need to set behavior guidelines for him. DVT prophylaxis: Eliquis CODE STATUS: Full code, verified Expected disposition: Transfer to [facility] today Medications at Discharge Home Medications folic acid 1 mg tablet 1 mg PO DAILY@0800 #30 tabs 05/30/23 thiamine HCl (vitamin B1) 100 mg tablet (Vitamin B-1) 100 mg PO DAILYCM #30 tabs107/30/22 albuterol sulfate 90 mcg/actuation aerosol inhaler 1 puff inhalation Q4H PRN PRNdyspnea 10/14/23 amiodarone 100 mg tablet 200 mg PO DAILY 10/14/23 apixaban 5 mg tablet (Eliquis) 5 mg PO BID 10/14/23 bumetanide 1 mg tablet 1 mg PO BID 10/14/23 calcium carbonate 215 mg calcium (500 mg) chewable tablet (Antacid Calcium) 537.5 mg PO DAILY 10/14/23 cholecalciferol (vitamin D3) 25 mcg (1,000 unit) tablet 25 mcg PO DAILY 10/14/23 cyanocobalamin (vitamin B-12) 1,000 mcg tablet 500 mcg PO DAILY 10/14/23 digoxin 125 mcg (0.125 mg) tablet 62.5 mcg PO DAILY 10/14/23 empagliflozin 10 mg tablet (Jardiance) 10 mg PO DAILY diabetes mellitus 10/14/23 fluticasone 100 mcg-salmeterol 50 mcg/dose blistr powdr for inhalation 1 ea inhalation DAILY 10/14/23 losartan 50 mg tablet 50 mg PO DAILY blood pressure 10/14/23 mirtazapine 7.5 mg tablet 7.5 mg PO QHS depressive disorder 10/14/23 pyridoxine (vitamin B6) 25 mg tablet (Vitamin B-6) 25 mg PO DAILY anemia 10/14/23 sacubitril 24 mg-valsartan 26 mg tablet (Entresto) 1 tab PO BID 10/14/23 spironolactone 25 mg tablet 25 mg PO DAILY blood pressure 10/14/23 benzocaine 15 mg-menthol 2.6 mg lozenges (Cepacol Sore Throat (benzocaine- menthol)) 1 forest mucous membrane Q2H PRN sore throat 10/15/23 budesonide-formoterol HFA 160 mcg-4.5 mcg/actuation aerosol inhaler (Symbicort) 1 inh inhalation BID SHORTNESS OF BREATH 10/15/23 melatonin 3 mg tablet 9 mg PO QHS PRN sleep 10/15/23 multivitamin with minerals-ferrous sulfate 4.5 mg iron tablet (One Daily Multivitamins with Minerals) 1 tab PO DAILY SUPPLEMENT 10/15/23 Weight / BMI Weight Weight: 74.2 kg Body Mass Index (BMI) 23.4 ABG / Lab / Microbiology Data 10/16/23 03:15 10/16/23 03:15 Microbiology: Microbiology 10/14/23 18:45 Urine, Random Urine Culture - Final Mixed Gram Positive Organisms Meaningful Use Info Meaningful Use Diagnoses (Choose all that apply): None applicable Discharge Plan Admission Admit Date/Time: 10/15/23 13:27 Primary Reason for Your Visit: Atrial fibrillation with RVR Attending Provider: Galen Souza Primary Care Provider: John Springer Consulting Providers: Jero Nicole; Floyd Mcadams Discharge Orders/Prescriptions Prescriptions: No Action thiamine HCl (vitamin B1) [Vitamin B-1] 100 mg Tablet 100 mg PO DAILYCM Qty: 30 2RF folic acid 1 mg Tablet 1 mg PO DAILY@0800 Qty: 30 3RF losartan 50 mg tablet 50 mg PO DAILY bumetanide 1 mg tablet 1 mg PO BID amiodarone 100 mg tablet 200 mg PO DAILY Eliquis 5 mg tablet 5 mg PO BID Jardiance 10 mg tablet 10 mg PO DAILY Entresto 24-26 mg tablet 1 tab PO BID pyridoxine (vitamin B6) [Vitamin B-6] 25 mg tablet 25 mg PO DAILY cyanocobalamin (vitamin B-12) 1,000 mcg tablet 500 mcg PO DAILY spironolactone 25 mg tablet 25 mg PO DAILY digoxin 125 mcg (0.125 mg) tablet 62.5 mcg PO DAILY fluticasone propion-salmeterol 100-50 mcg/dose blister with device 1 ea inhalation DAILY albuterol sulfate 90 mcg/actuation HFA aerosol inhaler 1 puff inhalation Q4H PRN PRN (Reason: dyspnea) mirtazapine 7.5 mg tablet 7.5 mg PO QHS cholecalciferol (vitamin D3) 25 mcg (1,000 unit) tablet 25 mcg PO DAILY Antacid Calcium 215 mg calcium (500 mg) tablet,chewable 537.5 mg PO DAILY melatonin 3 mg tablet 9 mg PO QHS PRN (Reason: sleep) budesonide-formoterol [Symbicort] 160-4.5 mcg/actuation HFA aerosol inhaler 1 inh inhalation BID Cepacol Sore Throat (kwasi-men) 15-2.6 mg lozenge 1 forest mucous membrane Q2H PRN (Reason: sore throat) One Daily Multi-Vit w-Mineral 4.5 mg iron tablet 1 tab PO DAILY Referrals / Follow Up: John Springer MD [Primary Care Provider] - Disposition Disposition (needs filled in before D/C Order can be placed): Acute Care Hospital Charges/Coding Visit Charges Inpatient E&M: 46668 Disch Hosp 10/17/23 7129 <Electronically signed by Galen Souza DO> Cosigner Signature (if applicable): CC: Dr. John Springer MD; Dr. Galen Souza, DO~ Signed [facility] Work Phone: Evaluation note* Diagnosis Acute cough documented in this encounter [facility] note* Diagnosis Onset Date Resolution Status Debility acute Mass of left lung acute Stage II pressure ulcer acut e Traumatic hematoma of left elbow acute Lactic acidosis resolved Acute renal insufficiency ac [place] Alcohol withdrawal acute At high risk for malnutrition acute Elevated serum creatinine ac [place] Mild dehydration acute Sinus tachycardia acute [facility] Work Phone: Evaluation note* Diagnosis Fall, initial encounter- Primary Head injury, initial encounter Laceration of scalp, initial encounter Alcoholic intoxication with complication (CMS/HCC) ([facility]) Hypoglycemia Hypoglycemia, unspecified Hypocalcemia Hyponatremia Hyposmolality and/or hyponatremia Concussion with loss of consciousness ETOH abuse Nondependent alcohol abuse, unspecified drinking behavior Forehead laceration, initial encounter [facility] Diagnosis Onset Date Resolution Status Debility acute Mass of left lung acute Stage II pressure ulcer acut e Traumatic hematoma of left elbow acute Lactic acidosis resolved Acute renal insufficiency re solved Alcohol withdrawal resolved Elevated serum creatinine re solved Mild dehydration resolved Sinus tachycardia resolved [facility] Work Phone: Evaluation note* Diagnosis Onset Date Resolution Status Debility acute Mass of left lung acute Stage II pressure ulcer acut e Traumatic hematoma of left elbow acute Lactic acidosis resolved Acute renal insufficiency re solved Alcohol withdrawal resolved Elevated serum creatinine re solved Mild dehydration resolved Sinus tachycardia resolved Behavior concern in adult ac [place] ETOH abuse acute [facility] Work Phone: Evaluation note* Diagnosis Onset Date Resolution Status Acute alcoholism acute Alcohol withdrawal delirium, acute, hyperactive acute CHI (closed head injury) acu te Debility acute Desire for detoxification ac [place] Malnutrition acute Pulmonary mass acute [facility] Work Phone: Evaluation note* Diagnosis Atrial fibrillation with RVR (HCC)- Primary Atrial fibrillation with RVR (HCC) Shortness of breath Elevated brain natriuretic peptide (BNP) level Acute kidney injury (HCC) Transaminitis Nonspecific elevation of levels of transaminase or lactic acid dehydrogenase (LDH) Elevated brain natriuretic peptide (BNP) level Shortness of breath Acute kidney injury (HCC) Transaminitis Nonspecific elevation of levels of transaminase or lactic acid dehydrogenase (LDH) documented in this encounter [facility] Evaluation [facility] note* Diagnosis Onset Date Resolution Status Acute hypotension acute Atrial fibrillation with RVR acute Falls acute Pre-syncope acute [facility] Work Phone: Evaluation note* Diagnosis Onset Date Resolution Status Acute hypotension acute Atrial fibrillation with RVR acute Debility acute Falls acute Heart failure acute Left ventricular systolic dy sfunction (LVSD), NYHA class 3 acute Pre-syncope acute [facility] Work Phone: Evaluation note* Diagnosis Chronic alcohol abuse- Primary Nondependent alcohol abuse, unspecified drinking behavior Malignant neoplasm of tonsil (HCC) Malignant neoplasm of tonsil Chronic obstructive pulmonary disease, unspecified COPD type (HCC) Acute cough Current moderate episode of major depressive disorder without prior episode (HCC) Acute cough documented in this encounter [facility] note* Diagnosis Chronic alcohol abuse- Primary Nondependent alcohol abuse, unspecified drinking behavior Malignant neoplasm of tonsil (HCC) Malignant neoplasm of tonsil Chronic obstructive pulmonary disease, unspecified COPD type (HCC) Acute cough Current moderate episode of major depressive disorder without prior episode (HCC) Alcohol withdrawal syndrome with complication (HCC)- Primary MARKOS (acute kidney injury) (HCC) Hyponatremia Hyposmolality and/or hyponatremia Alcohol withdrawal syndrome without complication (HCC) MARKOS (acute kidney injury) (HCC) Severe alcohol use disorder (HCC) Moderate malnutrition (CMS/HCC) (HCC) [facility] Diagnosis Alcohol use disorder- [facility] Additional Instructions You were updated on your tetanus vaccination today. Please keep clean your skin tear to your left forearm. Try to quit drinking as this could kill you.[facility] Work Phone: Hospital Discharge instructions Additional Instructions EKG and labs are stable. Alcohol cessation. Follow-up with your doctor. Return if worsening symptoms.[facility] Work Phone: Hospital Discharge instructions Additional Instructions Please make sure you are eating regularly so you do not have further episodes of low blood sugar. Please continue to follow-up with 180 for your drinking. Return the ER if you have further concerns or needs.[facility] Work Phone: Progress note Author Galen Souza [facility] October 17, 2023 8:29am Note Date/Time October 17, 2023 7:0 4am [facility] Medical Records Department [address] [place] [address] Progress Note - Hospitalist 10/17/23 0702 MR#: [id number] Acct: [id number] Name: MESSI WALDROP Rep #:[id number] : 1955 68 From: Galen Souza DO PCP: Dr. John Springer MD Status:AD M IN Location: ICU ICU02-1 Reason for Visit Reason for Visit: Diagnoses Unspecified atrial fibrillation (10/15/23) Heart failure, unspecified (10/15/23) Other ill-defined heart diseases (10/15/23) Hypotension, unspecified (10/15/23) Other malaise (10/15/23) Syncope and collapse (10/15/23) Unspecified fall, initial encounter (10/15/23) Subjective Subjective Denies events. Blood pressure was low yesterday but did improve with IV fluids. Objective Data Objective Data Vital Signs: Vital Signs Temp Pulse Resp BP Pulse Ox O2 Del Method 36.9 C 78 26 H 88/66 L 94 Room Air 10/17/23 04:00 10/17/23 06:00 10/17/23 06:00 10/17/23 06:00 10/17/23 06:00 10/17/23 06:00 Oxygen Delivery Method Room Air Weight: 74.2 kg Body Mass Index (BMI) 23.4 Intake & Output: Intake and Output for Last 24 Hours 10/15/23 10/16/23 10/17/23 23:59 23:59 23:59 Intake Total 720 / 720 2019 Output Total 275 / 275 825 / 825 400 / 400 Balance 445 / 445 1195 / 1195 -400 / -400 Lab / Micro Data 10/16/23 03:15 10/16/23 03:15 Micro: Microbiology 10/14/23 18:45 Urine, Random Urine Culture - Final Mixed Gram Positive Organisms Rhythm Strip Rhythm Strip: A-fib Physical Exam Const alert and no apparent distress Constitutional Narrative: Flat affect. Afebrile. No respiratory distress. No conversational dyspnea. On room air. HEENT head/scalp atraumatic and moist oral mucous membranes Resp normal respiratory effort, no retractions, no use of accessory muscles and clearto auscultation bilaterally Cardio S2 normal heart sound Cardio Narrative: Irregularly irregular Assessment & Plan Assessment/Plan (1) Atrial fibrillation with RVR: (2) Falls: (3) Pre-syncope: (4) Acute hypotension: (5) Debility: (6) Heart failure: PLAN: Plan Hypotension * w/o shock * responded to some IVF. monitor closely, caution advised with IVF given cardiomyopathy * BP/CHF meds held. Afib w RVR * on amio and digoxin * anticoagulated with apixaban * no BB at present given hypotension and low-normal BPs. * Cardiology following. Falls with presyncopal symptoms, * suspect orthostatic on top of poor performance status. * PT OT eval and treat MARKOS * worse today * up from 1.35. * hold off on additional IVF given cardiomyopathy unless worse or hypotensive. Chronic conditions: * HFrEF, nonischemic cardiomyopathy? Also diagnosed in July, see HPI for further details. Last echo in August showed an EF of 15 to 20%. Last saw cardiology during that admission as noted above. Home regimen prior to admission here was Bumex 1 mg twice daily, empagliflozin 10 mg daily, losartan 50 mg daily, Entresto 24-26 mg twice daily, spironolactone 25 mg daily. Cardiology consulted as above. Holding home medications. * History of alcohol abuse with suspected Wernicke's encephalopathy? Reported last alcohol use was prior to his July admission to [facility]. Alcohol level of 0 on admit. Denies any withdrawal symptoms.? Continue home folate and t hiamine. No need for CIWA protocol at this time. * CKD stage III: Creatinine 1.35 on admit, at baseline, stable. * Anxiety/depression/insomnia: Continue home melatonin, mirtazapine. * COPD: Stable on room air, no concern for exacerbation. Continue home inhalers. * Tobacco use: Nicotine replacement therapy available as needed. * History of severely inappropriate behavior. Patient has a history of waldemar ppropriate comments and particularly inappropriate behavior towards female nursing. Will need to set behavior guidelines for him. DVT prophylaxis: Eliquis CODE STATUS: Full code, verified Expected disposition: Transfer to [facility] 10/17/23 0829 <Electronically signed by Galen Souza DO> Cosigner Signature (if applicable): CC: ~ Signed [facility] Work Phone: Reason for referral (narrative)* Consultation (Routine) - Pending Review Specialty Diagnoses / Procedures Referred By Contac t Referred To Contact Addiction Medicine / Addiction Support Services Diagnoses Chronic alcohol abuse Procedures NE OFFICE/OUTPATIENT [facility] 60-74 MINUTES John Springer MD [address] [facility] [address] [place] [address] [facility] Addiction [facility] [address] [place] [address] Referral ID Status Reason Start Date Expiration Date Visits Requested Visits Authorized [id number] Pending Review Specialty Services Required 10/12/2022 10/12/2023 1 1 * Consultation (Routine) - Pending Review Specialty Diagnoses / Procedures Referred By Contac t Referred To Contact Psychology / Behavioral Health Diagnoses Chronic alcohol abuse Malignant neoplasm of tonsil (HCC) Current moderate episode of major depressive disorder without prior episode (HCC) Procedures NE OFFICE/OUTPATIENT [facility] 60-74 MINUTES John Springer MD [address] [facility] [address] [place] [address] [facility] [address] [place] [address] Referral ID Status Reason Start Date Expiration Date Visits Requested Visits Authorized [id number] Pending Review Specialty Services Required 10/11/2022 10/11/2023 1 1 [facility] Summary Purpose Family History No Family History Records Found Relationship Condition Age at Onset Recorded Date/T andres mother Diabetes mellitus Unknown father Diabetes mellitus Unknown brother Malignant neoplasm of colon Unknown Advance Directives No Advanced Directives Records FoundDocuments on File Type Date Recorded Patient Sheet Turner Expl anation Advance Directives and Living Will Power of Business Analysis Analyst Latest Code Status on File Code Status Date Activated Date Inactivated Comments Full Code 03/04/2020 10:09 AM Documents on File Type Date Recorded Patient Sheet Turner Expl anation ACP-Advance Directive ACP-Power of Business Analysis Analyst Latest Code Status on File Code Status Date Activated Date Inactivated Comments Full Code 03/04/2020 10:09 AM 03/04/2020 4:24 PM Advance Directive Response Recorded Date/ Time Living Will No January 05, 2023 5 :05pm Power of Business Analysis Analyst No January 05, 2023 5:05pm Advance Directive Response Recorded Date/ Time Living Will No February 18, 2023 6:39pm Power of Business Analysis Analyst No February 18 6:39pm Advance Directive Response Recorded Date/ Time Living Will No February 24, 2023 6:21pm Power of Business Analysis Analyst No February 24 6:21pm Advance Directive Response Recorded Date/ Time Living Will No February 26, 2023 4:06pm Power of Business Analysis Analyst No February 26 4:06pm Advance Directive Response Recorded Date/ Time Living Will No March 06, 2023 1:03pm Power of Business Analysis Analyst No March 06 1:03pm Advance Directive Response Recorded Date/ Time Living Will No April 16, 2023 3:13pm Power of Business Analysis Analyst No March 3:13pm Advance Directive Response Recorded Date/ Time Living Will No May 16 3:47pm Power of Business Analysis Analyst No May 16, 2023 3:47pm Latest Code Status on File Code Status Date Activated Date Inactivated Comments Full Code 08/11/2023 3:36 PM 08/22/2023 4:26 PM Advance Directive Response Recorded Date/ Time Living Will No October 14, 2023 4:45pm Power of Business Analysis Analyst No October 13 4:45pm Advance Directive Response Recorded Date/ Time Living Will No October 15, 2023 3:30pm Power of Business Analysis Analyst No October 14 3:30pm Date Activated Date Inactivated Comments 07/12/2024 12:42 AM 07/15/2024 4:17 PM Date Activated Date Inactivated Comments 08/11/2023 3:36 PM 08/22/2023 4:26 PM Discharge Instructions * Instructions* Hilaria Steiner, DO - 03/04/2020 Tonsillectomy / Adenoidectomy Home Instructions Dr. Hilaria Steiner Dietary Instructions Days 1 & 2 Abundant water, Popsicles, Broth, Jello, Gatorade, Tea, Sherbet - Frequently Repeated Days 3 - 7 Soft foods may be added gradually: Mashed Potatoes, Soft Cereals, Soft-Boiled and Poached Eggs, Rice, Noodles, Puddings, Soups, Gravy, and Apple Sauce AVOID: [place] Fruit (orange and lemon juices), Hot and Seasoned Foods, and Regular Solid Foods General Instructions 1. Quiet activity for the first 14 days. Heavy lifting, straining, or physical exertion should be avoided. You can generally return to work or school 7 to 10 days after surgery. 2. Milk and dairy products may be introduced after you can swallow effectively to clear secretions.Otherwise the phlegm and mucus build-up in the throat may cause too much congestion. Coughing, hacking, and clearing of the throat are to be avoided. 3. Encourage fluids and adequate intake of soft foods. Drink plenty of fluids after the surgery. Staying well-hydrated is associated with less pain. The pain may radiate and cause ear discomfort. It is normal for the pain to be more apparent during sleep and in the mornings. 4. A sore throat is to be expected and may last up to 2 weeks in duration. An ice collar or cold compress to the neck is soothing and may be used if desired. Snoring and mouth-breathing are normal after surgery because of swelling. 5. Ibuprofen (Motrin or Advil) can be used safely for pain control after surgery. For the first fewdays following surgery, pain medication should be given on a regular schedule. 6. A low-grade fever up to 100.5 degrees may persist for a few days after the surgery. Good fluid intake helps to keep the fever down. 7. The tonsil bed will heal with a wet scab, giving the appearance of a thick coating to the area. This is a normal part of the healing process and is not an infection. Please realize that antibiotics after do not reduce pain and are not given routinely. The scab can cause bad breath. 8. You should have the prescriptions filled for use beginning the day of the operation. Take them as directed. Resume home medications unless instructed otherwise. Call our Office at [phone] 1. If bleeding should occur. 2. If you have any problems, questions, or concerns IF YOU HAVE AN EMERGENCY, AND ARE UNABLE TO REACH THE DOCTOR AT THE ABOVE NUMBER, CALL 911. documented in this encounter* Attachments The following attachments cannot be sent through Care Everywhere. * Alcohol Intoxication: Acute (Angolan) * Head Injury: Closed: General Info (Angolan) * Lacerations: Open (Angolan) documented in this encounter* Instructions* Jessica Nick DO - 10/01/2020 Keep finger splinted. Return if increasing pain problems concerns. Motrin for pain. * Attachments The following attachments cannot be sent through Care Everywhere. * Dislocation: Finger (Angolan) documented in this encounter* Instructions* Sofia Spann RN - 04/20/2020 Discharge Instructions: *Take your temperature every day. *CALL IF YOUR TEMPERATURE IN 100.4 F OR HIGHER, have shaking or chills, night sweats, or any other signs of infection or the flu. * Rinse mouth after each meal and at bedtime. Avoid mouth wash rinses with alcohol in them. May usesalt and baking soda solution (1/4 tsp baking soda, 1/8/tsp salt in 1 cup of warm water) and followwith plain water rinse. Call if any mouth sores or blisters or sore throat. * Call if you have unusual bruising or bleeding. *Call if any changes in your skin, especially rash or potential allergic reactions. * Call if any changes in vision or hearing. * Call if numbness or tingling in your hands or feet. * Call if nausea is not being managed well with antiemetics or if difficulty eating or keeping fooddown for 24 hours. Call if vomiting more than twice in 1 day. *Call if prolonged diarrhea- meaning 3 or more watery bowel movements per day for more than 3 days.Call if it causes severe cramping or pain, or has blood in it. * Call if constipation that is not being relieved by laxatives. Call if bloating, feeling less hungry, or extra stomach pains or cramps. * Call [facility] Infusion dept on weekdays 8 am -4:30 pm [phone]. In an emergency, call 911. documented in this encounter History of Present Illness * Gilson Aly RN - 03/04/2020 2:00 PM EDT Awake and alert. Denies pain. Tolerating sherbert and water without difficulty. Denies nausea. * Vanessa Lenz RN - 03/04/2020 12:52 PM EDT Pt denies surgical pain and he denies nausea, the patient is tolerating sips of water, vs stable , no bleeding from throat noted , will continue to monitor * Vanessa Lenz RN - 03/04/2020 12:33 PM EDT PATIENT RECEIVED FROM OR VIA CART. SPONT RESP. WITH RESEARCH PHYSICIST IN ATTENDANCE. PLACED ON MONITOR. MONITOR ALARMS ON IN PACU. documented in this encounter* Jina Erazo RN - 04/19/2020 1:40 PM EDT Chemotherapy teach done on Cisplatin. Info given and reviewed on Cisplatin and all questions answered. Pt transferred to radiation dept. * Jina Erazo RN - 04/19/2020 1:00 PM EDT Pt here for chemotherapy teach. No labs drawn. documented in this encounter* Sofia Spann RN - 04/21/2020 1:00 PM EDT Arrival Note Patient is here for IV hydration. Labs were not ordered. 1335 Pt complains of nausea and acid reflux. Order obtained for Compazine IV. Patient did not take any at home. Pt aware to not take any until 7:30 this evening. 1515 Patient received 1 liter of 0.9% NaCl IV. Pt tolerated well with no IV related complications. Pt denies any other questions or concerns. documented in this encounter* Sofia Spann RN - 04/22/2020 1:00 PM EDT Arrival Note Patient is here for IV hydration. Labs were not ordered. 1426 Patient received 1 liter of 0.9% NaCl IV. Pt tolerated well with no IV related complications. Pt denies any other questions or concerns. Pt scheduled for IV hydration tomorrow. documented in this encounter* Shauna Wilkins RN - 05/18/2020 8:00 AM EDT Arrival Note Patient is here for chemotherapy. Labs were drawn via peripheral IV. 1608 Ordered treatment completed. Patient discharged without any issues. Patient has a copy of next infusion appointment and verbalizes understanding. All questions answered. documented in this encounter* Shauna Wilkins RN - 05/19/2020 10:00 AM EDT Arrival Note Patient is here for IV hydration and lab draw. Labs were drawn via peripheral IV. 1020 Pt states he started to feel a little nauseated while driving here. States feeling out of sorts this morning. Denies taking any of his anti-emetics. PRN orders released. Will monitor. 1159 Ordered treatment completed. Patient discharged without any issues. Patient has a copy of next infusion appointment and verbalizes understanding. All questions answered. documented in this encounter* Shauna Wilkins RN - 05/20/2020 1:00 PM EDT Arrival Note Patient is here for IV hydration. Labs were not ordered. 1425 Ordered treatment completed. Patient discharged without any issues. Patient has a copy of next infusion appointment and verbalizes understanding. All questions answered. documented in this encounter* Sofia Spann RN - 05/21/2020 1:00 PM EDT Arrival Note Patient is here for IV hydration. Labs were not ordered. 1447 Patient received 1 liter of 0.9% NaCl IV. Pt tolerated well with no IV related complications. Pt denies any other questions or concerns. Patient understands symptom management and s/sx to reportto office. documented in this encounter* Shauna Wilkins RN - 05/25/2020 3:00 PM EDT Arrival Note Patient is here for lab draw and IV hydration. Labs were drawn via peripheral IV. 1605 Ordered treatment completed. Patient discharged without any issues. Patient has a copy of next infusion appointment and verbalizes understanding. All questions answered. documented in this encounter* Sofia Spann RN - 05/26/2020 2:35 PM EDT Patient received 1 liter of 0.9% NaCl IV. Pt tolerated well with no IV related complications. Pt denies any other questions or concerns. Pt scheduled for labs and IV fluids next week. He will call ifany issues or concerns prior to that. * Shauna Wilkins RN - 05/26/2020 1:00 PM EDT Arrival Note Patient is here for IV hydration. Labs were not ordered. 1430 Ordered treatment completed. Patient discharged without any issues. Patient has a copy of next infusion appointment and verbalizes understanding. All questions answered. documented in this encounter* Shauna Wilkins RN - 06/01/2020 1:00 PM EST Arrival Note Patient is here for lab draw and IV hydration. Labs were drawn via peripheral IV. 1345 Pt complains of feeling like he was gonna black out today while waiting in line. States was able to drive self home and eat something. States symptoms seemed to resolve after eating. States this happened 1 week ago in the shower. Orthostatic vitals taken and charted in EMR. Labs drawn and sent tolab. BERNAL notified. Pt receiving I L NS bolus. Will continue to monitor. 1438 Ordered treatment completed. Patient discharged without any issues. Patient has a copy of next infusion appointment and verbalizes understanding. All questions answered. documented in this encounter* Shauna Wilkins RN - 06/03/2020 11:00 AM EST Arrival Note Patient is here for IV hydration. Labs were not ordered. 1222 Ordered treatment completed. Patient discharged without any issues. Patient has a copy of next infusion appointment and verbalizes understanding. All questions answered. documented in this encounter* Ruby Hylton LPN - 06/18/2020 1:00 PM EST Labs iv documented in this encounter* Shauna Wilkins RN - 06/22/2020 11:00 AM EST Arrival Note Patient is here for IV hydration. Labs were drawn via peripheral IV. 1120 Radial pulse was irregular. Fluids up per order. Will monitor. 1230 Fluids completed. Vitals obtained. Radial pulse regular. Pt states feeling better. 1235 Ordered treatment completed. Patient discharged without any issues. Patient has a copy of next infusion appointment and verbalizes understanding. All questions answered. documented in this encounter* Shauna Wilkins RN - 06/23/2020 12:00 PM EST Arrival Note Patient is here for IV hydration. Labs were not ordered. 1345 Ordered treatment completed. Patient discharged without any issues. Patient has a copy of next infusion appointment and verbalizes understanding. All questions answered. documented in this encounter* Shauna Wilkins RN - 06/29/2020 2:00 PM EST Arrival Note Patient is here for IV hydration. Labs were drawn via peripheral IV. 1515 Ordered treatment completed. Patient discharged without any issues. Patient has a copy of next infusion appointment and verbalizes understanding. All questions answered. documented in this encounter* Jani Suggs MD - 07/13/2020 11:59 PM EST [facility] Radiation Oncology RADIATION ONCOLOGY FOLLOW UP PATIENT: Messi Waldrop DATE OF SERVICE: 07/13/2020 [facility] : 1955 AGE: 65 PRIMARY SITE: Mr. 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 INTERVAL SINCE RADIATION: 1 month 04/20/20 - 06/18/20: 70.00/70.00 Gy to the R Tonsil PTV in 35 fractions of 2.00 Gy using the VMAT/Daily IGRT technique with 6 MV over 59 days. INTERVAL HISTORY: Mr. Waldrop is seen by me for the first time since completion of radiotherapy. Clinically, he is recovering well. He did have a delay in completing his therapy due to Covid symptomatology which prevented him from coming into the facility related to fevers. He ultimately was Covid negative. He reports his mucositis related pain and secretions are significantly improved. His dysgeusia and xerostomia are also improving. He is eating things such as mashed potatoes and macaroni and cheese. He denies any new palpable abnormalities, in fact, he appreciates complete resolution of the previously palpable adenopathy. He has been seen by Dr. Steiner, with excellent clinical response seen on his exam. He does have upcoming follow-up with Dr. Leavitt, who will likely coordinate for a PET CT scan. PHYSICAL EXAMINATION: VITALS: Temperature 98.3 F (07/13/20), Pulse 113 (07/13/20), Respirations 20 (07/13/20), Blood Pressure 126/80 (07/13/20) Weight 197.3 pounds 07/13/20 GENERAL: Awake, alert, oriented x3, no anxiety, dressed appropriately, appears of stated age. Ambulates without assistance. Speech pattern fluent. IMPRESSION: Mr. Waldrop is a 65-year-old gentleman who presents with a right tonsil squamous cell carcinoma, p16 positive, status post definitive concurrent chemoradiation with excellent clinical response, clinically recovering well. His ECOG performance status is 0. PLAN: 1. Follow-up with Dr. Steiner and Dr. Leavitt as scheduled, who will coordinate for PET CT scan in 2 months time. 2. Follow-up in my clinic in approximately 2 months time, after PET CT scan. Thank you for involving me in the care of Mr. Waldrop. Should any questions or concerns arise, please feel free to contact me. Jani Suggs MD Electronically signed by: Jani Suggs MD , T: 10:09 AM CC: John Springer MD, Hilaria Steiner MD, Michelle Leavitt DO [facility] Department of Radiation Oncology is an Accredited Facility of the [employer] ([employer]). This document was completed utilizing speech recognition software. Grammatical errors, random word insertions, pronoun errors, and incomplete sentences are an occasional consequence of this system due to software limitations, ambient noise, and hardware issues. Any formal questions or concerns about the content, text or information contained within the body of this dictation should be directly addressed to the provider for clarification. PATIENT: Messi Waldrop : 1955 cc: Hilaria Steiner D.O. [address] [place] [address] Michelle Leavitt DO [address] [place] [address] John Springer MD [facility] [address] [place] [address] documented in this encounter* Sofia Spann RN - 06/08/2020 3:25 PM EST Arrival Note Patient is here for IV hydration. Labs were not ordered. Patient color is pale and has Moist cough. He just came from radiation and has 1 more treatment tomorrow. States that he feels sickly. Temp 99.6. States that he has had a temp and was up to 101 about a week ago. He has not been feeling well for over the past week. Symptoms are not getting worse. Not increasingly short of breath as he has COPD but does not appear short of breath. His friend thatstays with him had been sick with a cough- he states that he thinks he got it from her. He takes Advil for pain 3 times a day with his last dose at 12:00 today. Patient instructed to call his PCP to advise and to go to the ER if symptom get any worse. Will follow up with patient tomorrow regarding r escheduling hydration. Notified radiation therapists. * Ruby Hylton LPN - 06/08/2020 3:00 PM EST Having trouble eating Pain No taste documented in this encounter* Shauna Wilkins RN - 05/11/2020 9:00 AM EDT Arrival Note Patient is here for chemotherapy. Labs were drawn via peripheral IV. [address] Leavitt aware, treatment held 1 week. Okay to give 500 ml NS, creatnine up to 1.14 from0.86. No further needs at this time. 1134 Ordered treatment completed. Patient discharged without any issues. Patient has a copy of next infusion appointment and verbalizes understanding. Understands next infusion appt is 05/18/20 at 8 AM. All questions answered. documented in this encounter* Sofia Spann RN - 04/20/2020 10:00 AM EDT Arrival Note Patient is here for chemotherapy. Labs were not ordered. Labs were draw 04/08/20 and ok to use for treatment today per Dr. Leavitt. [id number] Patient tolerated Cisplatin infusion well. No IV related complications. Reviewed home going instructions. AVS signed and to be scanned into chart. Patient understands s/sx adverse reaction or complication to report to MD office. Patient denies questions or concerns. 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 Neoplasm of uncertain behavior of lip, oral cavity, and pharynx Diagnosis Malignant neoplasm of tonsil (HCC) Malignant neoplasm of tonsil Diagnosis Malignant neoplasm of tonsil (HCC) Malignant neoplasm of tonsil Encounter for chemotherapy management Diagnosis Closed head injury, initial encounter- Primary Laceration of scalp, initial encounter Acute alcoholic intoxication without complication (HCC) Diagnosis Dislocation of finger, initial encounter- Primary Diagnosis Swelling of left little finger Hospital Course * Jani Suggs MD - 07/13/2020 11:59 PM EST [facility] Radiation Oncology RADIATION ONCOLOGY TREATMENT SUMMARY PATIENT: Messi Waldrop DATE OF SERVICE: 06/18/2020 [facility] : 1955 AGE: 65 PRIMARY SITE: Malignant neoplasm of tonsil, unspecified STAGE: I TREATMENT PLAN INTERVAL SINCE RADIATION: 04/20/2020 - 06/18/2020 (59 days) 04/20/20 - 06/18/20: 70.00/70.00 Gy to the R Tonsil PTV in 35 fractions of 2.00 Gy using the VMAT/Daily IGRT technique with 6 MV. STATUS OF PATIENT AT THE FINISH OF THE TREATMENT: Overall, Mr. Waldrop tolerated treatment well without required interruption. He was able to maintain p.o. intake as well as weight without requiring a PEG tube. He did suffer from Covid symptomatology at the end of therapy, which prevented completion of his treatment given fevers and inability to enter the department. He ultimately was Covid negative. DISPOSITION: He will see me in 4 weeks following treatment. Jani Suggs MD Electronically signed by: Jani Suggs MD , T: 10:50 AM CC: The [facility] Department of Radiation Oncology is an Accredited Facility of the [employer] ([employer]). This document was completed utilizing speech recognition software. Grammatical errors, random word insertions, pronoun errors, and incomplete sentences are an occasional consequence of this system due to software limitations, ambient noise, and hardware issues. Any formal questions or concerns about the content, text or information contained within the body of this dictation should be directly addressed to the provider for clarification. PATIENT: Messi Waldrop : 1955 cc: documented in this encounter Chief Complaint and Reason for Visit Chief Complaint GI BLEED GI BLEED GI BLEED GI BLEED GI BLEED GI BLEED GI BLEED GI BLEED GI BLEED GI BLEED GI BLEED GI BLEED GI BLEED GI BLEED GI BLEED GI BLEED GI BLEED ACUTE ALCOHOL WITHDRAWAL SYN ACUTE ALCOHOL WITHDRAWAL SYN Reason for Visit Debility Mass of left lung Stage II pressure ulcer Traumatic hematoma of left elbow Lactic acidosis Acute renal insufficiency Alcohol withdrawal At high risk for malnutrition Elevated serum creatinine Mild dehydration Sinus tachycardia Chief Complaint GI BLEED GI BLEED GI BLEED GI BLEED GI BLEED GI BLEED GI BLEED GI BLEED GI BLEED GI BLEED GI BLEED GI BLEED GI BLEED GI BLEED GI BLEED GI BLEED GI BLEED ACUTE ALCOHOL WITHDRAWAL SYN ACUTE ALCOHOL WITHDRAWAL SYN ACUTE ALCOHOL WITHDRAWAL SYN ACUTE ALCOHOL WITHDRAWAL SYN ACUTE ALCOHOL WITHDRAWAL SYN ETOH Reason for Visit Debility Mass of left lung Stage II pressure ulcer Traumatic hematoma of left elbow Lactic acidosis Acute renal insufficiency Alcohol withdrawal Elevated serum creatinine Mild dehydration Sinus tachycardia Chief Complaint GI BLEED GI BLEED GI BLEED GI BLEED GI BLEED GI BLEED GI BLEED GI BLEED GI BLEED GI BLEED GI BLEED GI BLEED GI BLEED GI BLEED GI BLEED GI BLEED GI BLEED ACUTE ALCOHOL WITHDRAWAL SYN ACUTE ALCOHOL WITHDRAWAL SYN ACUTE ALCOHOL WITHDRAWAL SYN ACUTE ALCOHOL WITHDRAWAL SYN ACUTE ALCOHOL WITHDRAWAL SYN ETOH ETOH, FALL LAC Reason for Visit Debility Mass of left lung Stage II pressure ulcer Traumatic hematoma of left elbow Lactic acidosis Acute renal insufficiency Alcohol withdrawal Elevated serum creatinine Mild dehydration Sinus tachycardia Chief Complaint GI BLEED GI BLEED GI BLEED GI BLEED GI BLEED GI BLEED GI BLEED GI BLEED GI BLEED GI BLEED GI BLEED GI BLEED GI BLEED GI BLEED GI BLEED GI BLEED GI BLEED ACUTE ALCOHOL WITHDRAWAL SYN ACUTE ALCOHOL WITHDRAWAL SYN ACUTE ALCOHOL WITHDRAWAL SYN ACUTE ALCOHOL WITHDRAWAL SYN ACUTE ALCOHOL WITHDRAWAL SYN ETOH ETOH, FALL LAC ETOH DETOX ETOH DETOX ETOH DETOX Reason for Visit Debility Mass of left lung Stage II pressure ulcer Traumatic hematoma of left elbow Lactic acidosis Acute renal insufficiency Alcohol withdrawal Elevated serum creatinine Mild dehydration Sinus tachycardia Behavior concern in adult ETOH abuse Chief Complaint GI BLEED GI BLEED GI BLEED GI BLEED GI BLEED GI BLEED GI BLEED GI BLEED GI BLEED GI BLEED GI BLEED GI BLEED GI BLEED GI BLEED GI BLEED GI BLEED GI BLEED ACUTE ALCOHOL WITHDRAWAL SYN ACUTE ALCOHOL WITHDRAWAL SYN ACUTE ALCOHOL WITHDRAWAL SYN ACUTE ALCOHOL WITHDRAWAL SYN ACUTE ALCOHOL WITHDRAWAL SYN ETOH ETOH, FALL LAC ETOH DETOX ETOH DETOX ETOH DETOX sycnope Reason for Visit Debility Mass of left lung Stage II pressure ulcer Traumatic hematoma of left elbow Lactic acidosis Acute renal insufficiency Alcohol withdrawal Elevated serum creatinine Mild dehydration Sinus tachycardia Chief Complaint GI BLEED GI BLEED GI BLEED GI BLEED GI BLEED GI BLEED GI BLEED GI BLEED GI BLEED GI BLEED ACUTE ALCOHOL WITHDRAWAL SYN ACUTE ALCOHOL WITHDRAWAL SYN ACUTE ALCOHOL WITHDRAWAL SYN ACUTE ALCOHOL WITHDRAWAL SYN ACUTE ALCOHOL WITHDRAWAL SYN ETOH ETOH, FALL LAC ETOH DETOX ETOH DETOX ETOH DETOX sycnope weakness Reason for Visit Debility Mass of left lung Stage II pressure ulcer Traumatic hematoma of left elbow Lactic acidosis Acute renal insufficiency Alcohol withdrawal Elevated serum creatinine Mild dehydration Sinus tachycardia Chief Complaint ETOH ETOH, FALL LAC ETOH DETOX ETOH DETOX ETOH DETOX sycnope weakness ALCOHOL DETOX ALCOHOL DETOX ALCOHOL DETOX ALCOHOL DETOX ALCOHOL DETOX ALCOHOL DETOX ALCOHOL DETOX ALCOHOL DETOX ALCOHOL DETOX ALCOHOL DETOX ALCOHOL DETOX ALCOHOL DETOX ALCOHOL DETOX ALCOHOL DETOX ALCOHOL DETOX ALCOHOL DETOX ALCOHOL DETOX ALCOHOL DETOX Reason for Visit Acute alcoholism Alcohol withdrawal delirium, acute, hyperactive CHI (closed head injury) Debility Desire for detoxification Malnutrition Pulmonary mass Chief Complaint AFIB WITH RVR, CHF Reason for Visit Acute hypotension Atrial fibrillation with RVR Falls Pre-syncope Chief Complaint AFIB WITH RVR, CHF AFIB WITH RVR, CHF AFIB WITH RVR, CHF AFIB WITH RVR, CHF AFIB WITH RVR, CHF Reason for Visit Acute hypotension Atrial fibrillation with RVR Debility Falls Heart failure Left ventricular systolic dysfunction (LVSD), NYHA class 3 Pre-syncope Additional Source Comments (unrecognized sect ion and content) No Status Records FoundNo Status Records FoundNo Status Records FoundNo Status Records FoundNo Status Records FoundNo Status Records FoundNo Status Records FoundNo Status Records FoundNo Status Records FoundNo Status Records FoundNo Status Records FoundNo Status Records FoundNo Status Records Found INFORMATION SOURCE (unrecogn ized section and content) DATE CREATED AUTHOR 01/22/2018 [facility] DATE CREATED AUTHOR AUTHOR'S ORGANIZ ATION 01/22/2018 [facility] DATE CREATED AUTHOR AUTHOR'S ORGANIZ ATION 07/27/2020 [facility] DATE CREATED AUTHOR AUTHOR'S ORGANIZ ATION 11/10/2021 [facility] DATE CREATED AUTHOR AUTHOR'S ORGANIZ ATION 01/28/2023 [facility] DATE CREATED AUTHOR AUTHOR'S ORGANIZ ATION 10/18/2023 [facility] DATE CREATED AUTHOR AUTHOR'S ORGANIZ ATION 10/21/2023 [facility] DATE CREATED AUTHOR AUTHOR'S ORGANIZ ATION 09/22/2024 [facility] DATE CREATED AUTHOR AUTHOR'S ORGANIZ ATION 10/03/2024 [facility] DATE CREATED AUTHOR AUTHOR'S ORGANIZ ATION 10/24/2024 [facility] DATE CREATED AUTHOR AUTHOR'S ORGANIZ ATION 12/04/2024 [facility] CREATED AUTHOR AUTHOR'S ORGANIZ ATION 05/23/[address] [facility] DATE CREATED AUTHOR AUTHOR'S ORGANIZ ATION 06/05/2025 [facility] Reason for Visit (unrecogniz ed section and content) Reason Comments Fall Head Injury Alcohol Intoxication Reason Comments Hand Injury L hand Reason Onset Date Comments Results 10/12/2022 Patient is leland ng for his xray results Reason Comments Fall Trauma team fall wit h AMS, etoh Reason Comments Shortness of Breath Specialty Diagnoses / Procedures Referred By Contac t Referred To Contact Diagnoses Shortness of breath Transaminitis Atrial fibrillation with RVR (HCC) Acute kidney injury (HCC) Elevated brain natriuretic peptide (BNP) level Procedures . Adam Guzman MD [address] [facility], [address] [address] [facility] [address] [place] [address] Referral ID Status Reason Start Date Expiration Date Visits Re quested Visits Authorized [id number] 1 Reason Comments COPD Reason Comments Alcohol Problem Patient with daughte r for alcohol detox , last drink yesterday, drink amount varies but most recently drinking 1/2 bottle of vodka daily, denies hx of seizures with withdrawal Specialty Diagnoses / Procedures Referred By Contac t Referred To Contact Diagnoses Hyponatremia MARKOS (acute kidney injury) (HCC) Alcohol withdrawal syndrome without complication (HCC) Procedures . Junior Jaramillo MD [address] [place] [address] Phone: tel: fax: [facility] [address] [place] [id number] Phone: tel: fax:[phone] Referral ID Status Reason Start Date Expiration Date Visits Re quested Visits Authorized [id number] 1 Reason Onset Date Comments Other 07/12/2024 Advice Only 07/12/2024 Reason Onset Date Comments Psychiatric Problem 09/20/2024 Pt arrived v ia medic after episode of intox at home. Medic states brother said he just wants to drink himself to . On CSS questions pt denies current SI and HI. States he attempted to harm self in the past years ago but does not remember when. Oriented to self only at this time. Notably intoxicated. States he has had atleast 10 drinks today of liquor. Chaplin, warm, dry. Pt denies any desire to quit drinking and I want to drink more [employer]. Reason Onset Date Comments Psychiatric Problem 09/20/2024 Opened In Error 09/20/2024 Reason Onset Date Comments Request Inpatient Admission To Behavioral Health Service 10/08/2024 Reason Onset Date Comments Other 05/21/2025 [facility] Care Teams (unrecognized sec tion and content) Claims Analyst Relationship Specialty Start Date End Date John Springer MD [address] [facility] [address] [place] [address] PCP - General 03/26/17 Michelle Leavitt DO [address] [place], [place] [id number] Consulting Physician Hematology and Oncology 08/21/22 Claims Analyst Relationship Specialty Start Date End Date John Springer MD [address] [facility] [address] [place] [address] PCP - General 03/26/17 Michelle Leavitt DO [address] [place], [place] [id number] Consulting Physician Hematology and Oncology 08/21/22 Team Status: Active Member Role Status Dates Dr. John Springer MD Primary Care Provider Active Team Status: Active Member Role Status Dates Dr. Kelechi Maverick , DO Emergency Provider Active Dr. Natty Guerrero MD Admit Provider, Attending Provider, Other Provider Active Team Status: Active Member Role Status Dates Dr. Kelechi Miles , DO Emergency Provider Active Dr. Natty Guerrero MD Admit Provider, Other Provider Active Dr. Galen Souza , DO Attending Provider, Other Provid er Active Team Status: Active Member Role Status Dates Dr. Kelechi Miles , DO Emergency Provider Active Dr. Natty Guerrero MD Admit Provider, Other Provider Active Dr. Galen Souza , DO Other Provider Active Dr. Ender Hennessy , DO Attending Provider Active Team Status: Active Member Role Status Dates Dr. Ender Hennessy , DO Attending Provider Active Team Status: Active Member Role Status Dates Dr. Kelechi Miles , DO Emergency Provider Active Dr. Natty Guerrero MD Admit Provider, Other Provider Active Dr. Natalie Dailey MD Attending Provider, Other Provid er Active Dr. Galen Souza , DO Other Provider Active Team Status: Active Member Role Status Dates Dr. Kelechi Miles , DO Emergency Provider Active Dr. Natty Guerrero MD Admit Provider, Other Provider Active Dr. Natalie Dailey MD Other Provider Active Dr. Galen Souza , DO Other Provider Active Dr. Ender Hennessy , DO Attending Provider Active Team Status: Active Member Role Status Dates Dr. Kelechi Miles , DO Emergency Provider Active Dr. Natty Guerrero MD Admit Provider, Other Provider Active Dr. Natalie Dailey MD Attending Provider, Other Provid er Active Dr. Galen Souza , DO Other Provider Active Dr. Sofya Portillo MD Other Provider Active Team Status: Active Member Role Status Dates Dr. Kelechi Miles , DO Emergency Provider Active Dr. Natty Guerrero MD Admit Provider, Other Provider Active Dr. Natalie Dailey MD Attending Provider, Other Provid er Active Dr. Galen Souza , DO Other Provider Active Dr. Chau Schmitz , DO Other Provider Active Team Status: Active Member Role Status Dates Dr. Kelechi Miles , DO Emergency Provider Active Dr. Natty Guerrero MD Admit Provider, Other Provider Active Dr. Natalie Dailey MD Other Provider Active Dr. Galen Souza , DO Other Provider Active Dr. Chau Schmitz , DO Other Provider Active Dr. Ender Hennessy , DO Attending Provider Active Team Status: Active Member Role Status Dates Dr. Daniel Inman MD Emergency Provider Active Dr. John Springer MD Primary Care Provider Active Dr. Joey Luong MD Admit Provider, A ttending Provider, Other Provider Active Team Status: Inactive Member Role Status Dates Dr. Kelechi Miles , DO Emergency Provider Active Dr. Natty Guerrero MD Admit Provider, Other Provider Active Dr. Natalie Dailey MD Attending Provider Active Dr. Galen Souza , DO Other Provider Active Dr. Chau Schmitz , DO Other Provider Active Team Status: Active Member Role Status Dates Dr. Daniel Inman MD Emergency Provider Active Dr. John Springer MD Primary Care Provider Active Dr. Joey Luong MD Admit Provider, Attending Provi tony Active Team Status: Active Member Role Status Dates Dr. Kelechi Miles , Emergency Provider Active Dr. Natty Guerrero MD Admit Provider, Other Provider Active Dr. Galen Souza , DO Other Provider Active Dr. Ender Hennessy , DO Attending Provider Active Dr. Natalie Dailey MD Referring Provider Active Team Status: Active Member Role Status Dates Dr. Ender Hennessy , DO Attending Provider Active Dr. Natalie Dailey MD Referring Provider Active Team Status: Active Member Role Status Dates Dr. Kelechi Miles , Emergency Provider Active Dr. Natty Guerrero MD Admit Provider, Other Provider Active Dr. Natalie Dailey MD Referring Provider, Other Provid er Active Dr. Galen Souza , DO Other Provider Active Dr. Ender Hennessy , Attending Provider Active Team Status: Active Member Role Status Dates Dr. Kelechi Miles , Emergency Provider Active Dr. Natty Guerrero MD Admit Provider, Other Provider Active Dr. Natalie Dailey MD Referring Provider, Other Provid er Active Dr. Galen Souza , DO Other Provider Active Dr. Chau Schmitz , DO Other Provider Active Dr. Ender Hennessy , DO Attending Provider Active Team Status: Active Member Role Status Dates Dr. Daniel Inman MD Emergency Provider Active Dr. John Springer MD Primary Care Provider Active Dr. Joey Luong MD Admit Provider, Other Provider Active Dr. Seema Davis MD Attending Provider, Other Prov ider Active Team Status: Inactive Member Role Status Dates Dr. Daniel Inman MD Emergency Provider Active Dr. John Springer MD Primary Care Provider Active Dr. Joey Luong MD Admit Provider, Other Provider Active Dr. Seema Davis MD Attending Provider Active Team Status: Inactive Member Role Status Dates Dr. John Springer MD Primary Care Provider Active Dr. Home Caceres MD Emergency Provider Active Team Status: Inactive Member Role Status Dates Dr. John Springer MD Primary Care Provider Active Dr. Home Caceres MD Attending Provider, Emergency Provider Active Team Status: Inactive Member Role Status Dates Dr. John Springer MD Primary Care Provider Active Dr. Jakob Calle DO Emergency Provider Active Team Status: Active Member Role Status Dates Dr. John Springer MD Primary Care Provider Active Dr. Kelechi Miles DO Emergency Provider Active Dr. Galen Souza DO Admit Provider, At tending Provider, Other Provider Active Team Status: Inactive Member Role Status Dates Dr. John Springer MD Primary Care Provider Active Dr. Kelechi Miles DO Emergency Provider Active Dr. Galen Souza DO Admit Provider, Attending Provid er Active Team Status: Inactive Member Role Status Dates Dr. John Springer MD Primary Care Provider Active Dr. Jakob Calle DO Attending Provider, Emergency Pro vider Active Team Status: Inactive Member Role Status Dates Dr. John Springer MD Primary Care Provider Active Dr. Brandyn Mchugh DO Emergency Provider Active Team Status: Inactive Member Role Status Dates Dr. John Springer MD Primary Care Provider Active Dr. Sandhya Bailey DO Emergency Provider Active Team Status: Inactive Member Role Status Dates Dr. John Springer MD Primary Care Provider Active Dr. Brandyn Mchugh DO Attending Provider, Emergency Provide r Active Team Status: Active Member Role Status Dates Dr. John Springer MD Primary Care Provider Active Dr. Papo Cochran MD Emergency Provider Active Dr. Hilaria Myrick DO Admit Provider, Attending Provider, Other Provider Active Team Status: Active Member Role Status Dates Dr. John Springer MD Primary Care Provider Active Dr. Papo Cochran MD Emergency Provider Active Dr. Hilaria Myrick DO Admit Provider, Other Provide r Active Dr. Truman Glaser MD Other Provider Active Dr. Peter Escalante DO Attending Provider, Other Provide r Active Dr. Jerri Ornelas MD Other Provider Active Dr. Michele Abdalla MD Other Provider Active Dr. Mann Jaime MD Other Provider Active Gaby Aldrich HEAD SAMPLER, HEAD SAMPLER-C Other Provider Active Team Status: Active Member Role Status Dates Dr. John Springer MD Primary Care Provider Active Dr. Papo Cochran MD Emergency Provider Active Dr. Hilaria Myrick , DO Admit Provider, Attending Provider, Other Provider Active Dr. Truman Glaser MD Other Provider Active Dr. Peter Escalante , Other Provider Active Dr. Jerri Ornelas MD Other Provider Active Dr. Michele Abdalla MD Other Provider Active Dr. Mann Jaime MD Other Provider Active Gaby Aldrich HEAD SAMPLER, HEAD SAMPLER-C Other Provider Active Team Status: Active Member Role Status Dates Dr. John Springer MD Primary Care Provider Active Dr. Papo Cochran MD Emergency Provider Active Dr. Hilaria Myrick , DO Admit Provider, Other Provide r Active Dr. Peter Escalante DO Attending Provider Active Team Status: Active Member Role Status Dates Dr. John Springer MD Primary Care Provider Active Dr. Papo Cochran MD Emergency Provider Active Dr. Hilaria Myrick DO Admit Provider, Other Provide r Active Dr. Galen Souza DO Attending Provider, Other Provid er Active Team Status: Active Member Role Status Dates Dr. John Springer MD Primary Care Provider Active Dr. Papo Cochran MD Emergency Provider Active Dr. Hilaria Myrick DO Admit Provider, Other Provide r Active Dr. Joey Luong MD Attending Provider, Other Provi tony Active Dr. Galen Souza DO Other Provider Active Team Status: Inactive Member Role Status Dates Dr. John Springer MD Primary Care Provider Active Dr. Sandhya Bailey DO Attending Provider, Emergency P rovider Active Team Status: Inactive Member Role Status Dates Dr. John Springer MD Primary Care Provider Active Dr. Papo Cochran MD Emergency Provider Active Dr. Hilaria Myrick DO Admit Provider, Other Provide r Active Dr. Joey Luong MD Attending Provider Active Dr. Galen Souza DO Other Provider Active Claims Analyst Relationship Specialty Start Date End Date John Springer MD [address] [place] [address] [address] [place] [address] PCP - General 03/26/17 Michelle Leavitt DO [address] [place] [address] Consulting Physician Hematology and Oncology 08/21/22 Claims Analyst Relationship Specialty Start Date End Date John Springer MD [address] [facility] [address] [place] [address] PCP - General 03/26/17 Michelle Leavitt DO [address] [place] [address] Consulting Physician Hematology and Oncology 08/21/22 Team Status: Active Member Role Status Dates Dr. John Springer MD Primary Care Provider Active Dr. Kelechi Miles , DO Emergency Provider Active Dr. Floyd Mcadams , DO Admit Provider, Attending Provider Active Team Status: Active Member Role Status Dates Dr. John Springer MD Primary Care Provider Active Dr. Kelechi Miles , DO Emergency Provider Active Dr. Floyd Mcadams , DO Admit Provider, Other Pro vider Active Dr. Jero Nicole MD Attending Provider, Other Provide r Active Team Status: Active Member Role Status Dates Dr. John Springer MD Primary Care Provider Active Dr. Kelechi Miles , DO Emergency Provider Active Dr. Floyd Mcadams , DO Admit Provider, Other Pro vider Active Dr. Jero Nicole MD Attending Provider, Other Provide r Active Dr. Galen Souza , DO Other Provider Active Team Status: Active Member Role Status Dates Dr. John Springer MD Primary Care Provider Active Dr. Kelechi Miles , DO Emergency Provider Active Dr. Floyd Mcadams , DO Admit Provider, Other Pro vider Active Dr. Jero Nicole MD Other Provider Active Dr. Galen Souza , DO Attending Provider, Other Provid er Active Team Status: Inactive Member Role Status Dates Dr. John Springer MD Primary Care Provider Active Dr. Kelechi Miles DO Emergency Provider Active Dr. Floyd Mcadams DO Admit Provider, Other Pro vider Active Dr. Jero Nicole MD Other Provider Active Dr. Galen Souza DO Attending Provider Active Claims Analyst Relationship Specialty Start Date End Date John Springer MD [address] [facility] [address] [place] [address] PCP - General 03/26/17 Michelle Leavitt DO [address] [place] [address] Consulting Physician Hematology and Oncology 08/21/22 Claims Analyst Relationship Specialty Start Date End Date John Springer MD [address] [facility] [address] [place] [address] PCP - General 03/26/17 Michelle Leavitt DO [address] [place] [address] Consulting Physician Hematology and Oncology 08/21/22 Claims Analyst Relationship Specialty Start Date End Date John Springer MD [address] [facility] [address] [place] [address] PCP - General Family Medicine 07/11/24 Michelle Leavitt DO [address] [place] [address] Consulting Physician Hematology and Oncology 08/21/22 Claims Analyst Relationship Specialty Start Date End Date John Springer MD [address] [facility] [address] [place] [address] PCP - General Family Medicine 07/11/24 Michelle Leavitt DO [address] [place] [address] Consulting Physician Hematology and Oncology 08/21/22 Claims Analyst Relationship Specialty Start Date End Date John Springer MD [address] [facility] [address] [place] [address] PCP - General Family Medicine 03/26/17 Claims Analyst Relationship Specialty Start Date End Date John Springer MD [address] [facility] [address] [place] [address] PCP - General Family Medicine 03/26/17 Claims Analyst Relationship Specialty Start Date End Date John Springer MD [address] [facility] [address] [place] [address] PCP - General Family Medicine 07/11/24 Michelle Leavitt DO [address] [place] [address] [address] [place] [address] Consulting Physician Hematology and Oncology 08/21/22 Scheduled Active and Recently Administ ered Medications (unrecognized section and content) Medication Order 01/26/2023 01/27/2023 01/28/2023 calcium gluconate 2000 mg in 100 mL IVPB premix (COMPLETED) 2,000 mg, IntraVENous, at 50 mL/hr, Administer over 2 Hours, Once, On 01/28/23 at 0200, For 1 dose, premix bag 0147 (New Bag - Prov ider: Brett Felipe RN)0426 (Stopped - Provider: Brett Felipe RN) dextrose 50 % solution 50 mL (COMPLETED) 50 mL, IntraVENous, Once, On 01/27/23 at 2140, For 1 dose 2152 (Given - Provider: Brett Felipe RN) jdupckrz-ukiuqwsvjr-yyxr myxin (Neosporin) ointment Topical, 3 times daily, First dose on 01/27/23 at 2125, Apply to forehead laceration repair. 2303 (Given - Provider: Brett Felipe RN) 0900 (Canceled Entry - Provider: Automatic Discharge Provider - Comment: Automatically canceled at discontinue of medication order) sodium chloride 0.9 % 1,000 mL with multiple vitamin 10 mL, thiamine 100 mg, folic acid 1 mg infusion (COMPLETED) 100 mL/hr, IntraVENous, Once, On 01/27/23 at 2050, For 1 dose 2155 (New Bag - Provider: Brett Felipe RN) 0903 (Stopped - Provider: Evie Villeda RN) sodium chloride 0.9 % bolus 500 mL (COMPLETED) 500 mL, IntraVENous, at 500 mL/hr, Administer over 1 Hours, Once, On 01/28/23 at 0125, For 1 dose 0147 (New Bag - Prov ider: Brett Felipe RN)0426 (Stopped - Provider: Brett Felipe RN) Scheduled Medication Order 08/20/2023 08/21/2023 08/22/2023 apixaban (Eliquis) tablet 5 mg 5 mg, Oral, 2 times daily, First dose on 08/11/23 at 2100, Anticoagulant 0821 (Given - Provider: Hernán Martinez RN)3 (Given - Provider: Merle Lomax RN) 0818 (Given - Provider: Hernán Martinez RN)2220 (Given - Provider: Isabella Wolf RN) 1038 (Given - Provider: Viraj Agrawal, MERLENE) cholecalciferol (Vitamin D3) tablet 1,000 Units 1,000 Units, Oral, Daily, First dose on 08/11/23 at 1700 0820 (Given - Provider: Hernán Martinez RN) 0818 (Given - Provider: Hernán Martinez RN) 1037 (Given - Provider: Viraj Agrawal RN) folic acid (Folvite) tablet 1 mg 1 mg, Oral, Daily, First dose on 08/12/23 at 0900 0821 (Given - Provider: Hernán Martinez RN) 0818 (Given - Provider: Hernán Martinez RN) 1038 (Given - Provider: Viraj Agrawal RN) haloperidol lactate (Haldol) injection 1 mg (COMPLETED) 1 mg, IntraMUSCular, Once, On Sun08/21/23 at 1400, For 1 dose, IM route of administration preferred. Because of the risk of TdP and QT prolongation, ECG monitoring is recommended if haloperidol is given IV 1405 (Given - Provider: Hernán Martinez RN) Insulin Lispro (Humalog) injection 0-6 Units(Linked Group 1) 0-6 Units, SubCUTAneous, 3 times daily with meals, First dose on 08/11/23 at 1700, Low Dose Correction Algorithm Glucose: Dose: LESS than 139 No Insulin 140-199 1 Unit 200-249 2 Units 250-299 3 Units 300-349 4 Units 350-400 5 Units Above 400 6 Units 0800 (Not Given - Provider: Hernán Martinez RN - Reason: Patient/family refused)1200 (Not Given - Provider: Hernán Martinez RN - Reason: Order parameters not met)1700 (Not Given - Provider: Hernán Martinez RN - Reason: Order parameters not met) 0818 (Not Given - Provider: Hernán Martinez RN - Reason: Other - Comment: pt. not eating breakfast)1113 (Given - Provider: Hernán Martinez RN)1558 (Given - Provider: Hernán Martinez RN) 0800 (Not Given - Provider: Viraj Agrawal RN - Reason: Order parameters not met)1200 (Not Given - Provider: Viraj Agrawal RN - Reason: Order parameters not met) Insulin Lispro (Humalog) injection 0-6 Units(Linked Group 1) 0-6 Units, SubCUTAneous, Nightly, First dose on 08/11/23 at 2100, If continuous tube feedings/TPN/NPO, give correction dose based on result, no reduction in dose. If eating or bolus tube feeding: Low Dose Correction Algorithm Glucose: Dose: LESS than 139 No Insulin 140-199 1 Unit 200-249 2 Units 250-299 3 Units 300-349 4 Units 350-400 5 Units Above 400 6 Units 2100 (Not Given - Provider: Merle Lomax RN - Reason: Order parameters not met) 2100 (Not Given - Provider: Isabella Wolf RN - Reason: Order parameters not met) losartan (Cozaar) tablet 50 mg 50 mg, Oral, Daily, First dose on Sun08/13/23 at 0930 0821 (Given - Provider: Hernán Martinez RN) 0818 (Given - Provider: Hernán Martinez RN) 1037 (Given - Provider: Viraj Agrawal, MERLENE) metoprolol tartrate (Lopressor) tablet 100 mg 100 mg, Oral, 2 times daily, First dose (after last modification) on Sun08/14/23 at 2100 0820 (Given - Provider: Hernán Martinez RN)2032 (Given - Provider: Merle Lomax, MERLENE) 0818 (Given - Provider: Hernán Martinez, MERLENE)222 (Given - Provider: Isabella Wolf, MERLENE) 1037 (Given - Provider: Viraj Agrawal, MERLENE) mometasone-formoterol (Dulera 200) 200-5 MCG/ACT inhaler 2 puff 2 puff, Inhalation, 2 times daily, First dose on 08/11/23 at 2000, Rinse mouth with water after use to reduce aftertaste and incidence of candidiasis. Do not swallow. 0800 (Not Given - Provider: Hernán Martinez RN - Reason: Patient/family refused)2032 (Given - Provider: Merle Lomax, MERLENE) 0800 (Not Given - Provider: Hernán Martinez RN - Reason: Patient/family refused)1999 (Given - Provider: Isabella Wolf, MERLENE) 1045 (Given - Provider: Viraj Agrawal, MERLENE) nicotine (Nicoderm, Step 1) 21 MG/24HR patch 1 patch(Linked Group 2) 1 patch, TransDERmal, Administer over 24 Hours, Daily, First dose on 08/11/23 at 2115, For 42 days, Apply new patch to nonhairy, clean, dry skin on the upper body or upper outer arm. Rotate patch sites. Notify Pharmacy if patient or provider prefers patch to be removed at bedtime and replaced in the morning. 0821 (Medication Applied - Provider: Hernán Martinez RN)0837 (Medication Removed - Provider: Hernán Martinez RN) 0818 (Medication Applied - Provider: Hernán Martinez RN) 0818 (Medication Removed - Provider: Viraj Agrawal RN)1037 (Medication Applied - Provider: Viraj Agrawal RN)1420 (Due: Medication Removed - Provider: Automatic Discharge Provider - Comment: Time automatically adjusted from order being discontinued) nicotine (Nicoderm, Step 2) 14 MG/24HR patch 1 patch(Linked Group 2) 1 patch, TransDERmal, Administer over 24 Hours, Daily, First dose on 09/22/23 at 0900, For 14 days, Apply new patch to nonhairy, clean, dry skin on the upper body or upper outer arm. Rotate patch sites. Notify Pharmacy if patient or provider prefers patch to be removed at bedtime and replaced in the morning. nicotine (Nicoderm, Step 3) 7 MG/24HR patch 1 patch(Linked Group 2) 1 patch, TransDERmal, Administer over 24 Hours, Daily, First dose on 10/06/23 at 0900, For 14 days, Apply new patch to nonhairy, clean, dry skin on the upper body or upper outer arm. Rotate patch sites. Notify Pharmacy if patient or provider prefers patch to be removed at bedtime and replaced in the morning. thiamine (Vitamin B1) tablet 100 mg (CANCELED) 100 mg, Oral, Daily, First dose on Sun08/17/23 at 0900 0821 (Given - Provider: Hernán Martinez RN) thiamine (Vitamin B1) tablet 200 mg 200 mg, Oral, Daily, First dose (after last modification) on Sun08/21/23 at 0900 0818 (Given - Provider: Hernán Martinez RN) 1037 (Given - Provider: Viraj Agrawal RN) PRN Medication Order 08/20/2023 08/21/2023 08/22/2023 acetaminophen (Tylenol) suppository 650 mg(Linked Group 3) 650 mg, Rectal, Every 6 hours PRN, mild pain (1-3), fever, For temp greater than 100.4 F (38 C), Starting on 08/11/23 at 1531, Administer if oral route cannot be used. Maximum dose of acetaminophen is 4000 mg from all sources in 24 hours. acetaminophen (Tylenol) tablet 650 mg(Linked Group 3) 650 mg, Oral, Every 6 hours PRN, mild pain (1-3), fever, For temp greater than 100.4 F (38 C), Starting on 08/11/23 at 1531, Maximum dose of acetaminophen is 4000 mg from all sources in 24 hours. albuterol 108 (90 Base) MCG/ACT inhaler 2 puff 2 puff, Inhalation, Every 4 hours PRN, wheezing, shortness of breath, Starting on 08/11/23 at 1655 dextrose 50 % solution 12.5 g 12.5 g, IntraVENous, PRN, low blood sugar, Blood glucose less than 70 mg/dL and patient NOT ALERT or NPO., Starting on 08/11/23 at 1535, If patient does not respond within 5 minutes, repeat dose x1. Start D5W at 100 mL/hour until ordering provider can be reached. Repeat blood glucose in 15 minutes. If blood glucose is less than 70 mg/dL, repeat treatment and recheck blood glucose in 15 minutes x2. If using Glucostabilizer, dose as instructed per system. glucagon (human recombinant) injection 1 mg 1 mg, IntraMUSCular, PRN, low blood sugar, Blood glucose less than 70 mg/dL and patient NOT ALERT or NPO and does not have IV access., Starting on 08/11/23 at 1535, After administration, attempt intravenous access and start D5W at 100 mL/hr. Repeat blood glucose in 15 minutes x2 and notify provider. glucose oral gel 15 g 15 g, Oral, As needed, low blood sugar, Starting on 08/11/23 at 1535, If blood glucose less than 50 mg/dL and patient ALERT and NOT NPO, give 2 tubes glucose gel. If blood glucose less than 70 mg/dL and patient ALERT and NOT NPO, give 1 tube glucose gel. Repeat blood glucose in 15 minutes. If blood glucose is less than 70 mg/dL, repeat treatment and recheck blood glucose in 15 minutes x2 and notify provider. LORazepam (Ativan) injection 1 mg(Linked Group 4) 1 mg, IntraVENous, Every 1 hour PRN, withdrawal, For alcohol withdrawal, Starting on 08/12/23 at 0221, For CIWA score 8 to 10. If both oral and intravenous CIWA medications ordered, use intravenous if unable to tolerate oral equivalent. Reassess CIWA one hour after each dose of medication and as needed. For IV doses dilute dose with 1ml NS. 2220 (See Alternative - Provider: Isabella Wolf RN) LORazepam (Ativan) injection 2 mg(Linked Group 4) 2 mg, IntraVENous, Every 1 hour PRN, withdrawal, For alcohol withdrawal., Starting on 08/12/23 at 0221, For CIWA score 11 to 15. If both oral and intravenous CIWA medications ordered, use intravenous if unable to tolerate oral equivalent. Reassess CIWA one hour after each dose of medication and as needed. For IV doses dilute dose with 1ml NS. 2220 (See Alternative - Provider: Isabella Wolf RN) LORazepam (Ativan) injection 3 mg(Linked Group 4) 3 mg, IntraVENous, Every 1 hour PRN, withdrawal, For alcohol withdrawal, Starting on 08/12/23 at 0221, For CIWA score 16 to 20. If both oral and intravenous CIWA medications ordered, use intravenous if unable to tolerate oral equivalent. Reassess CIWA one hour after each dose of medication and as needed. For IV doses dilute dose with 1ml NS. 2220 (See Alternative - Provider: Isabella Wolf RN) LORazepam (Ativan) injection 4 mg(Linked Group 4) 4 mg, IntraVENous, Every 1 hour PRN, withdrawal, For alcohol withdrawal, Starting on 08/12/23 at 0221, For CIWA score greater than 20. If both oral and intravenous CIWA medications ordered, use intravenous if unable to tolerate oral equivalent. Reassess CIWA one hour after each dose of medication and as needed. For IV doses dilute dose with 1ml NS. 2220 (See Alternative - Provider: Isabella Wolf RN) LORazepam (Ativan) tablet 1 mg(Linked Group 4) 1 mg, Oral, Every 1 hour PRN, other, For alcohol withdrawal, Starting on 08/12/23 at 0221, For CIWA score 8 to 10. Reassess CIWA one hour after each dose of medication and as needed. 2220 (See Alternative - Provider: Isabella Wolf RN) LORazepam (Ativan) tablet 2 mg(Linked Group 4) 2 mg, Oral, Every 1 hour PRN, other, For alcohol withdrawal, Starting on 08/12/23 at 0221, For CIWA score 11 to 15. Reassess CIWA one hour after each dose of medication and as needed. 2220 (Given - Provider: Isabella Wolf RN) LORazepam (Ativan) tablet 3 mg(Linked Group 4) 3 mg, Oral, Every 1 hour PRN, other, For alcohol withdrawal, Starting on 08/12/23 at 0221, For CIWA score 16 to 20. Reassess CIWA one hour after each dose of medication and as needed. 2220 (See Alternative - Provider: Isabella Wolf RN) LORazepam (Ativan) tablet 4 mg(Linked Group 4) 4 mg, Oral, Every 1 hour PRN, other, For alcohol withdrawal, Starting on 08/12/23 at 0221, For CIWA score greater than 20. Reassess CIWA one hour after each dose of medication and as needed. 2220 (See Alternative - Provider: Isabella Wolf RN) ondansetron (Zofran) injection 4 mg(Linked Group 5) 4 mg, IntraVENous, Every 6 hours PRN, nausea, vomiting, Starting on 08/11/23 at 1531, Administer if oral route cannot be used. ondansetron ODT (Zofran-ODT) disintegrating tablet 4 mg(Linked Group 5) 4 mg, Oral, Every 8 hours PRN, nausea, vomiting, Starting on 08/11/23 at 1531, Patient should allow tablet to dissolve on tongue. Do not remove from blister pack until just before administering. perflutren protein A microsphere (Optison) 3 mL in sodium chloride (PF) 0.9 % 10 mL IV syringe 0-10 mL, IntraVENous, IMG once PRN, other, Suboptimal echo image, Starting on 08/11/23 at 1657, For 1 dose, CV Procedural Medications, Administer via slow IVP for suboptimal echocardiogram enhancement. May administer as divided doses to reach optimal image enhancement polyethylene glycol (PEG) 3350 (Miralax) packet 17 g 17 g, Oral, Daily PRN, constipation, Starting on 08/11/23 at 1531, 1st line for treatment of constipation - give scheduled if no bowel movement in past 24 hours. Linked Groups Order Group 1: Insulin Lispro (Humalog) injection 0-6 UnitsJump to med 0-6 Units, SubCUTAneous, 3 times daily with meals, First dose on 08/11/23 at 1700, Low Dose Correction Algorithm Glucose: Dose: LESS than 139 No Insulin 140- 199 1 Unit 200-249 2 Units 250-299 3 Units 300-349 4 Units 350-400 5 Units Above 400 6 Units And Insulin Lispro (Humalog) injection 0-6 UnitsJump to med 0-6 Units, SubCUTAneous, Nightly, First dose on 08/11/23 at 2100, If continuous tube feedings/TPN/NPO, give correction dose based on result, no reduction in dose. If eating or bolus tube feeding: Low Dose Correction Algorithm Glucose: Dose: LESS than 139 No Insulin 140-199 1 Unit 200-249 2 Units 250-299 3 Units 300-349 4 Units 350-400 5 Units Above 400 6 Units Group 2: nicotine (Nicoderm, Step 1) 21 MG/24HR patch 1 patchJump to med 1 patch, TransDERmal, Administer over 24 Hours, Daily, First dose on 08/11/23 at 2115, For 42 days, Apply new patch to nonhairy, clean, dry skin on the upper body or upper outer arm. Rotate patch sites. Notify Pharmacy if patient or provider prefers patch to be removed at bedtime and replaced in the morning. Followed by nicotine (Nicoderm, Step 2) 14 MG/24HR patch 1 patchJump to med 1 patch, TransDERmal, Administer over 24 Hours, Daily, First dose on 09/22/23 at 0900, For 14 days, Apply new patch to nonhairy, clean, dry skin on the upper body or upper outer arm. Rotate patch sites. Notify Pharmacy if patient or provider prefers patch to be removed at bedtime and replaced in the morning. Followed by nicotine (Nicoderm, Step 3) 7 MG/24HR patch 1 patchJump to med 1 patch, TransDERmal, Administer over 24 Hours, Daily, First dose on 10/06/23 at 0900, For 14 days, Apply new patch to nonhairy, clean, dry skin on the upper body or upper outer arm. Rotate patch sites. Notify Pharmacy if patient or provider prefers patch to be removed at bedtime and replaced in the morning. Group 3: acetaminophen (Tylenol) tablet 650 mgJump to med 650 mg, Oral, Every 6 hours PRN, mild pain (1-3), fever, For temp greater than 100.4 F (38 C), Starting on 08/11/23 at 1531, Maximum dose of acetaminophen is 4000 mg from all sources in 24 hours. Or acetaminophen (Tylenol) suppository 650 mgJump to med 650 mg, Rectal, Every 6 hours PRN, mild pain (1-3), fever, For temp greater than 100.4 F (38 C), Starting on 08/11/23 at 1531, Administer if oral route cannot be used. Maximum dose of acetaminophen is 4000 mg from all sources in 24 hours. Group 4: LORazepam (Ativan) tablet 1 mgJump to med 1 mg, Oral, Every 1 hour PRN, other, For alcohol withdrawal, Starting on 08/12/23 at 0221, For CIWA score 8 to 10. Reassess CIWA one hour after each dose of medication and as needed. Or LORazepam (Ativan) injection 1 mgJump to med 1 mg, IntraVENous, Every 1 hour PRN, withdrawal, For alcohol withdrawal, Starting on 08/12/23 at 0221, For CIWA score 8 to 10. If both oral and intravenous CIWA medications ordered, use intravenous if unable to tolerate oral equivalent. Reassess CIWA one hour after each dose of medication and as needed. For IV doses dilute dose with 1ml NS. Or LORazepam (Ativan) tablet 2 mgJump to med 2 mg, Oral, Every 1 hour PRN, other, For alcohol withdrawal, Starting on 08/12/23 at 0221, For CIWA score 11 to 15. Reassess CIWA one hour after each dose of medication and as needed. Or LORazepam (Ativan) injection 2 mgJump to med 2 mg, IntraVENous, Every 1 hour PRN, withdrawal, For alcohol withdrawal., Starting on 08/12/23 at 0221, For CIWA score 11 to 15. If both oral and intravenous CIWA medications ordered, use intravenous if unable to tolerate oral equivalent. Reassess CIWA one hour after each dose of medication and as needed. For IV doses dilute dose with 1ml NS. Or LORazepam (Ativan) tablet 3 mgJump to med 3 mg, Oral, Every 1 hour PRN, other, For alcohol withdrawal, Starting on 08/12/23 at 0221, For CIWA score 16 to 20. Reassess CIWA one hour after each dose of medication and as needed. Or LORazepam (Ativan) injection 3 mgJump to med 3 mg, IntraVENous, Every 1 hour PRN, withdrawal, For alcohol withdrawal, Starting on 08/12/23 at 0221, For CIWA score 16 to 20. If both oral and intravenous CIWA medications ordered, use intravenous if unable to tolerate oral equivalent. Reassess CIWA one hour after each dose of medication and as needed. For IV doses dilute dose with 1ml NS. Or LORazepam (Ativan) tablet 4 mgJump to med 4 mg, Oral, Every 1 hour PRN, other, For alcohol withdrawal, Starting on 08/12/23 at 0221, For CIWA score greater than 20. Reassess CIWA one hour after each dose of medication and as needed. Or LORazepam (Ativan) injection 4 mgJump to med 4 mg, IntraVENous, Every 1 hour PRN, withdrawal, For alcohol withdrawal, Starting on 08/12/23 at 0221, For CIWA score greater than 20. If both oral and intravenous CIWA medications ordered, use intravenous if unable to tolerate oral equivalent. Reassess CIWA one hour after each dose of medication and as needed. For IV doses dilute dose with 1ml NS. Group 5: ondansetron ODT (Zofran-ODT) disintegrating tablet 4 mgJump to med 4 mg, Oral, Every 8 hours PRN, nausea, vomiting, Starting on 08/11/23 at 1531, Patient should allow tablet to dissolve on tongue. Do not remove from blister pack until just before administering. Or ondansetron (Zofran) injection 4 mgJump to med 4 mg, IntraVENous, Every 6 hours PRN, nausea, vomiting, Starting on 08/11/23 at 1531, Administer if oral route cannot be used. Scheduled Medication Order 07/13/2024 07/14/2024 07/15/2024 apixaban (Eliquis) tablet 5 mg 5 mg, Oral, 2 times daily, First dose on 07/12/24 at 0045, Anticoagulant 0857 (Given - Provider: Goyo Sosa RN)2040 (Given - Provider: Padmini Foster RN) 0841 (Given - Provider: Lucie Allen RN)2009 (Given - Provider: Concepcion Priest RN) 08 (Given - Provider: Lucie Allen RN) bacitracin ointment Topical, 2 times daily, First dose on 07/12/24 at 0100 0900 (Given - Provider: Goyo Sosa RN)204 (Given - Provider: Padmini Foster RN) 0900 (Given - Provider: Lucie Allen RN - Comment: to L-lower forehead stiches)2009 (Given - Provider: Concepcion Priest RN) 0828 (Given - Provider: Lucie Allen RN - Comment: forehead) chlordiazePOXIDE (Librium) capsule 10 mg (COMPLETED)(Linked Group 1) 10 mg, Oral, Every 6 hours, First dose on 07/13/24 at 1800, For 4 doses, Hold for excessive sedation 1750 (Given - Provider: Goyo Sosa RN)2312 (Given - Provider: Padmini Foster RN) 0602 (Given - Provider: Padmini Foster, MERLENE)1209 (Given - Provider: Lucie Allen RN) chlordiazePOXIDE (Librium) capsule 25 mg (CANCELED) 25 mg, Oral, Every 6 hours, First dose on 07/12/24 at 1130, Hold for excessive sedation 0459 (Given - Provider: Concepcion Priest RN) chlordiazePOXIDE (Librium) capsule 25 mg (COMPLETED)(Linked Group 1) 25 mg, Oral, Every 6 hours, First dose (after last modification) on 07/13/24 at 1130, For 1 dose, Hold for excessive sedation 1123 (Given - Provider: Goyo Sosa RN) chlordiazePOXIDE (Librium) capsule 5 mg (COMPLETED)(Linked Group 1) 5 mg, Oral, Every 6 hours, First dose on 07/14/24 at 1800, For 4 doses, Hold for excessive sedation 1801 (Given - Provider: Lucie Allen RN)2325 (Given - Provider: Concepcion Priest RN) 0539 (Given - Provider: Concepcion Priest RN)1159 (Given - Provider: Lucie Allen RN) cyanocobalamin (Vitamin B-12) tablet 500 mcg 500 mcg, Oral, Daily, First dose on 07/12/24 at 0900 0857 (Given - Provider: Goyo Sosa RN) 0841 (Given - Provider: Lucie Allen RN) 0829 (Given - Provider: Lucie Allen RN) folic acid (Folvite) tablet 1 mg 1 mg, Oral, Daily, First dose on 07/12/24 at 0900 0856 (Given - Provider: Goyo Sosa RN) 0841 (Given - Provider: Lucie Allen RN) 0829 (Given - Provider: Lucie Allen RN) losartan (Cozaar) tablet 50 mg 50 mg, Oral, Daily, First dose on 07/12/24 at 0900, Hold for systolic blood pressure <130 0856 (Given - Provider: Goyo Sosa RN) 0842 (Given - Provider: Lucie Allen RN) 08 (Given - Provider: Lucie Allen RN) melatonin tablet 10 mg 10 mg, Oral, Nightly, First dose on 07/14/24 at 0015 0018 (Given - Provider: Padmini Foster RN)2009 (Given - Provider: Concepcion Priest RN) metoprolol tartrate (Lopressor) tablet 100 mg 100 mg, Oral, 2 times daily, First dose on 07/12/24 at 0045 0856 (Given - Provider: Goyo Sosa RN)2040 (Given - Provider: Padmini Foster RN) 0842 (Given - Provider: Lucie Allen RN)2009 (Given - Provider: Concepcion Priest RN) 0829 (Given - Provider: Lucie Allen RN) mometasone-formoterol (Dulera 200) 200-5 MCG/ACT inhaler 2 puff 2 puff, Inhalation, 2 times daily, First dose on 07/12/24 at 0045, Rinse mouth with water after use to reduce aftertaste and incidence of candidiasis. Do not swallow. 0856 (Given - Provider: Goyo Sosa RN)2039 (Given - Provider: Padmini Foster RN) 0758 (Given - Provider: Lucie Allen, MERLENE)1950 (Given - Provider: Concepcion Priest RN) 0828 (Given - Provider: Lucie Allen RN) thiamine (Vitamin B1) tablet 100 mg 100 mg, Oral, Daily, First dose on 07/12/24 at 0900 0857 (Given - Provider: Goyo Sosa RN) 0841 (Given - Provider: Lucie Allen, MERLENE) 0829 (Given - Provider: Lucie Allen RN) PRN Medication Order 07/13/2024 07/14/2024 07/15/2024 acetaminophen (Tylenol) tablet 650 mg 650 mg, Oral, Every 6 hours PRN, mild pain (1-3), headaches, fever, Starting on 07/12/24 at 0056, Maximum dose of acetaminophen is 4000 mg from all sources in 24 hours. 195 (Given - Provider: Concepcion Priest RN) albuterol 108 (90 Base) MCG/ACT inhaler 2 puff 2 puff, Inhalation, Every 4 hours PRN, shortness of breath, wheezing, Starting on 07/12/24 at 0042 0002 (Given - Provider: Concepcion Priest RN - Comment: wheezing)0612 (Given - Provider: Concepcion Priest RN) dextrose 5 % infusion 100 mL/hr, IntraVENous, PRN, Blood sugar less than 70mg/dL, Starting on 07/12/24 at 0621, Start infusion following administration of dextrose 50% or glucagon. dextrose 50 % solution 12.5 g 12.5 g, IntraVENous, PRN, low blood sugar, Blood glucose less than 70 mg/dL and patient NOT ALERT or NPO., Starting on 07/12/24 at 0621, If patient does not respond within 5 minutes, repeat dose x1. Start D5W at 100 mL/hour until ordering provider can be reached. Repeat blood glucose in 15 minutes. If blood glucose is less than 70 mg/dL, repeat treatment and recheck blood glucose in 15 minutes x2. If using Glucostabilizer, dose as instructed per system. glucagon (human recombinant) injection 1 mg 1 mg, IntraMUSCular, PRN, low blood sugar, Blood glucose less than 70 mg/dL and patient NOT ALERT or NPO and does not have IV access., Starting on 07/12/24 at 0621, After administration, attempt intravenous access and start D5W at 100 mL/hr. Repeat blood glucose in 15 minutes x2 and notify provider. glucose oral gel 15 g 15 g, Oral, As needed, low blood sugar, Starting on 07/12/24 at 0621, If blood glucose less than 50 mg/dL and patient ALERT and NOT NPO, give 2 tubes glucose gel. If blood glucose less than 70 mg/dL and patient ALERT and NOT NPO, give 1 tube glucose gel. Repeat blood glucose in 15 minutes. If blood glucose is less than 70 mg/dL, repeat treatment and recheck blood glucose in 15 minutes x2 and notify provider. naloxone (Narcan) injection 0.4 mg 0.4 mg, IntraVENous, Every 5 min PRN, opioid reversal, respiratory depression, Starting on 07/12/24 at 0058, +++ For RR <10, pinpoint pupils, over sedation for opioid reversal - MUST notify rn bone marrow transplant provider immediately after first dose, may give IM or SQ if no IV access +++ ondansetron (Zofran) injection 4 mg(Linked Group 2) 4 mg, IntraVENous, Every 6 hours PRN, nausea, vomiting, Starting on 07/12/24 at 0040, 1st Line. Give IV if patient is unable to take orally. If inadequate response within 60 minutes, proceed to next-line agent or contact provider if no further options ordered. ondansetron ODT (Zofran-ODT) disintegrating tablet 4 mg(Linked Group 2) 4 mg, Oral, Every 8 hours PRN, nausea, vomiting, Starting on 07/12/24 at 0040, 1st Line. If inadequate response within 60 minutes, proceed to next-line agent or contact provider if no further options ordered. Patient should allow tablet to dissolve on tongue. Do not remove from blister pack until just before administering. polyethylene glycol (PEG) 3350 (Miralax) packet 17 g 17 g, Oral, Daily PRN, constipation, Starting on 07/12/24 at 0040, 1st line for treatment of constipation - give scheduled if no bowel movement in past 24 hours. traZODone (Desyrel) tablet 50 mg 50 mg, Oral, Nightly PRN, sleep, Starting on 07/14/24 at [id number] (Given - Provider: Concepcion Priest RN) Linked Groups Order Group 1: chlordiazePOXIDE (Librium) capsule 25 mg (COMPLETED)Jump to med 25 mg, Oral, Every 6 hours, First dose (after last modification) on 07/13/24 at 1130, For 1 dose, Hold for excessive sedation Followed by chlordiazePOXIDE (Librium) capsule 10 mg (COMPLETED)Jump to med 10 mg, Oral, Every 6 hours, First dose on 07/13/24 at 1800, For 4 doses, Hold for excessive sedation Followed by chlordiazePOXIDE (Librium) capsule 5 mg (COMPLETED)Jump to med 5 mg, Oral, Every 6 hours, First dose on 07/14/24 at 1800, For 4 doses, Hold for excessive sedation Group 2: ondansetron ODT (Zofran-ODT) disintegrating tablet 4 mgJump to med 4 mg, Oral, Every 8 hours PRN, nausea, vomiting, Starting on 07/12/24 at 0040, 1st Line. If inadequate response within 60 minutes, proceed to next-line agent or contact provider if no further options ordered. Patient should allow tablet to dissolve on tongue. Do not remove from blister pack until just before administering. Or ondansetron (Zofran) injection 4 mgJump to med 4 mg, IntraVENous, Every 6 hours PRN, nausea, vomiting, Starting on 07/12/24 at 0040, 1st Line. Give IV if patient is unable to take orally. If inadequate response within 60 minutes, proceed to next-line agent or contact provider if no further options ordered. Goals (unrecognized section and content) Goals may be documented in a n alternate section Source Comments (unrecognize d section and content) In the event this informatio n is protected by the Federal Confidentiality of Alcohol and Drug Abuse Patient Records regulations: The Federal rules restrict any use of the information to criminally investigate or prosecute any alcohol or drug abuse patient.[facility] the event this information is protected by the Federal Confidentiality of Alcohol and Drug Abuse Patient Records regulations: The Federal rules restrict any use of the information to criminally investigate or prosecute any alcohol or drug abuse patient.[facility] [place] the event this information is protected by the Federal Confidentiality of Alcohol and Drug Abuse Patient Records regulations: The Federal rules restrict any use of the information to criminally investigate or prosecute any alcohol or drug abuse patient.[facility] FOR RECORDS PERTAINING TO PATIENTS WHO ARE OR HAVE BEEN ENROLLED IN A CHEMICAL DEPENDENCY/SUBSTANCEABUSE PROGRAM, SOME INFORMATION MAY BE OMITTED. This clinical summary was aggregated from multiple sources. Caution should be exercised in using it in the provision of clinical care. This summary normalizes information from multiple sources, and as a consequence, information in this document may materially change the coding, format and clinical context of patient data. In addition, data may be omitted in some cases. CLINICAL DECISIONS SHOULD BE BASED ON THE PRIMARY CLINICAL RECORDS. [facility] [employer] [facility]. provides no warranty or guarantee of the accuracy or completeness of information in this document.
[2025-07-11 17:11] VITALS: BP 106/79; PULSE 74; RESP 16; TEMP 36.6; O2SAT 94
--- NOTE | 2025-07-11 17:12 | ED.RN ---
pt given d/c papers, pt. stated he had a phone to call for his ride. PIV removed
== END 2025-07-11 17:18 | disposition home or self-care (01) ==
PROVIDERS: Emergency Provider Emergency Medicine; PCP Family Medicine; Visit Provider Emergency Medicine
DX: S09.90XA Unspecified injury of head, initial encounter (principal); J44.9 Chronic obstructive pulmonary disease, unspecified; I48.91 Unspecified atrial fibrillation; R55 Syncope and collapse; I10 Essential (primary) hypertension; F17.220 Nicotine dependence, chewing tobacco, uncomplicated; W19.XXXA Unspecified fall, initial encounter
CPT/HCPCS: 36415; 70450; 71046; 80048; 82077; 84484; 85025; 93005; 99285